=== PATIENT | male | born 1950 | race African-American/Black ===

== ENCOUNTER → 2018-05-21 | Day surgery (SDC) | payer OTHER ==
[~2018-05-21] MED LIST: LIDOCAINE 1% MPF 5 ML VIAL ONE; PROPOFOL 200 MG/20 ML VIAL IV ONE
--- OUTSIDE RECORDS SUMMARY | 2018-05-21 06:40 | XMS REPORT | Clinical Summary ---
:1950 Author Organization [facility] Address [address] [place] [address] Care Team Providers Name Role Phone Larisa Belle [facility] Primary Care Provider Allergies No Known Allergies Medications Medication Sig Dispensed Refills Start End Date Status Date nitroglycerin Place 0.4 mg under 0 Active (NITROSTAT) 0.4 MG the tongue every 5 SL tablet (five) minutes as needed for Chest pain Put 1 pill under tongue every 5min as needed for chest pain.No more than 3 doses in 15min.Call 911 if pain is unrelieved 5min after 1st dose . terazosin (HYTRIN) Take 2 mg by mouth 0 Active 2 MG capsule nightly. aspirin 81 MG Take 81 mg by 0 Active chewable tablet mouth daily. calcium acetate Take 1,334 mg by 0 Active (PHOSLO) 667 mg mouth 3 (three) capsule times daily with meals . rosuvastatin Take 10 mg by 0 Active (CRESTOR) 10 MG mouth daily. tablet insulin NPH 100 Inject 10 Units 0 Active unit/mL (3 mL) InPn subcutaneously every morning before breakfast. insulin regular Inject 0 Active (HUMULIN R,NOVOLIN subcutaneously 3 R) 100 unit/mL (three) times injection daily before meals Use as directed, sliding scale. . cholecalciferol, Take 5,000 Units 0 Active vitamin D3, by mouth daily. (VITAMIN D3) 5,000 unit Tab acetaminophen-codei Take 1 tablet by 20 tablet 0 Active ne (TYLENOL #3) mouth every 6 8 300-30 mg per (six) hours as tablet needed for Pain. Max Daily Amount: 4 tablets metoprolol Take 1 tablet (25 60 tablet 0 Active (TOPROL-XL) 25 MG mg total) by mouth 8 24 hr tablet 2 (two) times daily. lisinopril Take 1 tablet (2.5 30 tablet 0 201 10/31/19 Active (PRINIVIL,ZESTRIL) mg total) by mouth 8 19 2.5 MG tablet daily. hydrALAZINE Take 50 mg by 0 10/30/19 Discontinued (APRESOLINE) 50 MG mouth 2 (two) 18 tablet times daily . ergocalciferol Take 50,000 Units 0 10/01/19 Discontinued (VITAMIN D2) 50,000 by mouth once a 18 unit capsule week. metoprolol Take 100 mg by 0 10/30/19 Discontinued (TOPROL-XL) 100 MG mouth daily. 18 24 hr tablet amLODIPine Take 10 mg by 0 10/30/19 Discontinued (NORVASC) 10 MG mouth daily. 18 tablet Active Problems Problem Noted Date S/P CABG x 3 10/23/2017 Pre-transplant evaluation for ESRD (end stage renal disease) 09/30/2017 Stroke 06/16/2004 Overview: no residual Coronary artery disease ESRD (end stage renal disease) Dialysis patient Insulin dependent diabetes mellitus Overview: IDDM Hyperlipidemia HTN (hypertension) GERD (gastroesophageal reflux disease) Anemia Acute respiratory insufficiency Hypotension, unspecified hypotension type Postoperative anemia due to acute blood loss Thrombocytopenia Hyperglycemia Encounters Date Type Specialty Care Team Description 03/04/2018 Telephone Transplant Jeanie Schmidt Follow-up RHINA Vale 01/06/2018 Orders Only Lab Seth, Other iron deficiency Argelia Strauss anemia 01/06/2018 Orders Only Cardiology Sarah Bolden RN 01/06/2018 Orders Only Research Edna, Other iron deficiency RHINA Sosa anemia (Primary Dx) 11/18/2017 Orders Only Lab Seth, FH: CABG (coronary Argelia Strauss, artery bypass surgery) 11/17/2017 Orders Only Research Edna, FH: CABG (josie Sosa RN artery bypass surgery) (Primary Dx) 10/23/2017 Surgery Kevin Anguiano, BYPASS,AORTO CORONARY COURTNEY/MALCOLM 10/23/2017 Anesthesia Event Lisa Shaw MD 10/23/2017 Hospital Encounter Cardiology Kevin Anguiano, Pre-transplant evaluation for ESRD (end stage renal disease) (Primary Dx); - Acute respiratory insufficiency; 10/29/2017 Yanelis Jackson Anemia in chronic kidney disease, on chronic dialysis ([facility]); MD Chelsy Dialysis patient ([facility]); Secondary hypertension; Hypotension, unspecified hypotension type; Insulin dependent diabetes mellitus ([facility]); Postoperative anemia due to acute blood loss; S/P CABG x 3; Thrombocytopenia ([facility]); ESRD (end stage renal disease) ([facility]); Coronary artery disease involving ambler coronary artery of ambler heart without angina pectoris; Mixed hyperlipidemia 10/21/2017 Hospital Encounter Kevin Anguiano, Anemia in chronic MD kidney disease, on chronic dialysis ([facility]) 10/21/2017 Office Visit Cardiology Kevin Anguiano, coronary artery disease ; Stage 5 chronic kidney disease on chronic dialysis ([facility]); Coronary artery disease involving ambler coronary artery of ambler heart without angina pectoris; ESRD (end stage renal disease) ([facility]); Dialysis patient ([facility]); Insulin dependent diabetes mellitus ([facility]); Hypertension, unspecified type; Gastroesophageal reflux disease, esophagitis presence not specified; Cerebrovascular accident (CVA), unspecified mechanism ([facility]); Anemia in chronic kidney disease, on chronic dialysis ([facility]) 10/21/2017 Orders Only Cardiology Kevin Anguiano, coronary artery disease; Stage 5 chronic kidney disease on chronic dialysis ([facility]) 09/30/2017 Surgery Ramses Holland MD L CATH & CORONARY ANGIOS 09/30/2017 Hospital Encounter Ramses Holland MD Pre-transplant evaluation for ESRD (end stage renal disease) 08/07/2017 Hospital Encounter Heather, ESRD (end stage renal disease) ( [facility]); Letty Johnson MD Pre-transplant evaluation for chronic kidney disease 08/07/2017 Hospital Encounter Heather, ESRD (end stage renal disease) ( [facility]); Letty Johnson MD Pre-transplant evaluation for chronic kidney disease 08/07/2017 Hospital Encounter Radiology Heather, ESRD (end stage renal disease) ([facility]); Letty Johnson MD Pre-transplant evaluation for chronic kidney disease 08/07/2017 Orders Only Lab Heather, ESRD (end stage renal disease) ([facility]); Letty Johnson MD Pre-transplant evaluation for chronic kidney disease 08/07/2017 Orders Only Transplant Anmol Couch, ESRD (end stage renal Hepatology RN disease) ([facility]) (Primary Dx) 08/07/2017 Orders Only Transplant La Nena, Larisa, RN ESRD (end stage renal disease) ([facility]) (Primary Dx); Pre-transplant evaluation for chronic kidney disease 08/07/2017 Outside Orders Letty Romero MD 07/04/2017 Telephone Transplant Alcira Rivera Appointment 06/19/2017 Documentation Transplant Alcira Rivera Y 05/22/2017 Documentation Transplant Lucrecia Dyson, ESRD (end stage renal disease) ([facility]) (Primary Dx); RN Pre-transplant evaluation for chronic kidney disease after 05/20/2017 Family History Medical History Relation Name Comments Diabetes Father Diabetes Mother Relation Name Status Comments Father Mother Social History Tobacco Use Types Packs/Day Years Used Date Former Smoker Smokeless Tobacco: Never Used Comments: quit 2016 Alcohol Use Drinks/Week oz/Week Comments No Sex Assigned at Date Recorded Not on file Job Start Date Occupation Industry Not on file Not on file Not on file Travel History Travel Start Travel End No recent travel history available. Last Filed Vital Signs Vital Sign Reading Time Taken Blood Pressure 138/67 10/29/2017 11:40 AM CDT Pulse 77 10/29/2017 11:41 AM CDT Temperature 36.7 C (98.1 F) 10/29/2017 11:40 AM CDT Respiratory Rate 14 10/29/2017 11:41 AM CDT Oxygen Saturation 97% 10/29/2017 11:40 AM CDT Inhaled Oxygen Concentration 40% 10/23/2017 5:15 PM CDT Weight 72.9 kg (160 lb 12.8 oz) 10/29/2017 4:09 AM CDT Height 170.2 cm (5' 7") 10/23/2017 5:51 AM CDT Body Mass Index 25.18 10/29/2017 4:09 AM CDT Plan of Treatment Health Maintenance Due Date Last Done Comments INFLUENZA VACCINE 03/16/2018 Procedures Procedure Name Priority Date/Time Associated Comments Diagnosis RHYTHM STRIP - SCAN 04/10/2018 6:10 AM CDT TRANSFUSION SERVICE REPORT 01/07/2018 5:54 - SCAN PM CDT TYPE AND SCREEN, AUTOMATED Routine 01/06/2018 7:35 Other iron Results for this AM CDT deficiency anemia procedure are in the results section. DIRECT AHG (PERLA)/DIRECT Routine 01/06/2018 7:35 Other iron Results for this CARLA AM CDT deficiency anemia procedure are in the results section. PERMANENT LAB REPORT - 12/18/2017 11:40 SCAN AM CDT TRANSFUSION SERVICE REPORT 11/20/2017 7:52 - SCAN AM CDT CBC W/PLT COUNT & AUTO STAT 11/18/2017 12:23 FH: CABG (coronary Results for this DIFFERENTIAL PM CDT artery bypass procedure are in surgery) the results section. TYPE AND SCREEN, AUTOMATED Routine 11/18/2017 12:23 FH: CABG (coronary Results for this PM CDT artery bypass procedure are in surgery) the results section. DIRECT AHG (PERLA)/DIRECT Routine 11/18/2017 12:23 FH: CABG (coronary Results for this CARLA PM CDT artery bypass procedure are in surgery) the results section. FIBRINOGEN Routine 11/18/2017 12:23 FH: CABG (coronary Results for this PM CDT artery bypass procedure are in surgery) the results section. ALKALINE PHOSPHATASE Routine 11/18/2017 12:23 FH: CABG (coronary Results for this PM CDT artery bypass procedure are in surgery) the results section. CREATINE KINASE (CK) Routine 11/18/2017 12:23 FH: CABG (coronary Results for this PM CDT artery bypass procedure are in surgery) the results section. LACTATE DEHYDROGENASE Routine 11/18/2017 12:23 FH: CABG (coronary Results for this (LDH) PM CDT artery bypass procedure are in surgery) the results section. APTT Routine 11/18/2017 12:23 FH: CABG (coronary Results for this PM CDT artery bypass procedure are in surgery) the results section. PROTHROMBIN TIME/INR Routine 11/18/2017 12:23 FH: CABG (coronary Results for this PM CDT artery bypass procedure are in surgery) the results section. CBC W/PLT COUNT & AUTO STAT 11/18/2017 12:23 FH: CABG (coronary Results for this DIFFERENTIAL PM CDT artery bypass procedure are in surgery) the results section. COMPREHENSIVE METABOLIC Routine 11/18/2017 12:23 FH: CABG (coronary Results for this PANEL PM CDT artery bypass procedure are in surgery) the results section. VASCULAR DIAGRAM -SCAN 10/30/2017 3:30 PM CDT RHYTHM STRIP - SCAN 10/30/2017 3:30 PM CDT POCT-GLUCOSE METER Routine 10/29/2017 12:43 Results for this PM CDT procedure are in the results section. CBC W/PLT COUNT & AUTO Routine 10/29/2017 7:39 Results for this DIFFERENTIAL AM CDT procedure are in the results section. PHOSPHORUS Routine 10/29/2017 7:39 Results for this AM CDT procedure are in the results section. BASIC METABOLIC PANEL (7) Routine 10/29/2017 7:39 Results for this AM CDT procedure are in the results section. CBC W/PLT COUNT & AUTO Routine 10/29/2017 7:39 Results for this DIFFERENTIAL AM CDT procedure are in the results section. CBC W/PLT COUNT & AUTO Routine 10/29/2017 5:33 Results for this DIFFERENTIAL AM CDT procedure are in the results section. CBC W/PLT COUNT & AUTO Routine 10/29/2017 5:33 Results for this DIFFERENTIAL AM CDT procedure are in the results section. BASIC METABOLIC PANEL (7) Routine 10/29/2017 5:32 Results for this AM CDT procedure are in the results section. MAGNESIUM Routine 10/29/2017 5:32 Results for this AM CDT procedure are in the results section. POCT-GLUCOSE METER Routine 10/28/2017 9:01 Results for this PM CDT procedure are in the results section. TRANSFUSION SERVICE REPORT 10/28/2017 5:48 - SCAN PM CDT POCT-GLUCOSE METER Routine 10/28/2017 4:43 Results for this PM CDT procedure are in the results section. POCT-GLUCOSE METER Routine 10/28/2017 11:44 Results for this AM CDT procedure are in the results section. POCT-GLUCOSE METER Routine 10/28/2017 7:35 Results for this AM CDT procedure are in the results section. BASIC METABOLIC PANEL (7) Routine 10/28/2017 3:59 Results for this AM CDT procedure are in the results section. MAGNESIUM Routine 10/28/2017 3:59 Results for this AM CDT procedure are in the results section. HEMODIALYSIS INPATIENT Routine 10/28/2017 12:46 Results for this AM CDT procedure are in the results section. POCT-GLUCOSE METER Routine 10/27/2017 10:03 Results for this PM CDT procedure are in the results section. POTASSIUM Routine 10/27/2017 10:00 Results for this PM CDT procedure are in the results section. POCT-GLUCOSE METER Routine 10/27/2017 4:47 Results for this PM CDT procedure are in the results section. DIRECT AHG (PERLA)/DIRECT Routine 10/27/2017 1:36 Results for this CARLA PM CDT procedure are in the results section. PROTEIN, TOTAL Routine 10/27/2017 1:36 Results for this PM CDT procedure are in the results section. CREATINE KINASE (CK) Routine 10/27/2017 1:36 Results for this PM CDT procedure are in the results section. LACTATE DEHYDROGENASE Routine 10/27/2017 1:36 Results for this (LDH) PM CDT procedure are in the results section. BILIRUBIN, TOTAL AND Routine 10/27/2017 1:36 Results for this DIRECT PM CDT procedure are in the results section. AST (SGOT) Routine 10/27/2017 1:36 Results for this PM CDT procedure are in the results section. APTT Routine 10/27/2017 1:36 Results for this PM CDT procedure are in the results section. ALT (SGPT) Routine 10/27/2017 1:36 Results for this PM CDT procedure are in the results section. ALKALINE PHOSPHATASE Routine 10/27/2017 1:36 Results for this PM CDT procedure are in the results section. ALBUMIN Routine 10/27/2017 1:36 Results for this PM CDT procedure are in the results section. PROTHROMBIN TIME/INR Routine 10/27/2017 1:36 Results for this PM CDT procedure are in the results section. POCT-GLUCOSE METER Routine 10/27/2017 12:08 Results for this PM CDT procedure are in the results section. TYPE AND SCREEN, AUTOMATED Routine 10/27/2017 9:33 Results for this AM CDT procedure are in the results section. POCT-GLUCOSE METER Routine 10/27/2017 7:50 Results for this AM CDT procedure are in the results section. CBC W/PLT COUNT & AUTO Routine 10/27/2017 6:30 Results for this DIFFERENTIAL AM CDT procedure are in the results section. CBC W/PLT COUNT & AUTO Routine 10/27/2017 6:30 Results for this DIFFERENTIAL AM CDT procedure are in the results section. BASIC METABOLIC PANEL (7) Routine 10/27/2017 6:30 Results for this AM CDT procedure are in the results section. MAGNESIUM Routine 10/27/2017 6:30 Results for this AM CDT procedure are in the results section. POCT-GLUCOSE METER Routine 10/26/2017 9:51 Results for this PM CDT procedure are in the results section. POCT-GLUCOSE METER Routine 10/26/2017 5:38 Results for this PM CDT procedure are in the results section. XR CHEST 1 VIEW Routine 10/26/2017 4:08 Results for this PORTABLE/BEDSIDE PM CDT procedure are in the results section. POCT-GLUCOSE METER Routine 10/26/2017 12:32 Results for this PM CDT procedure are in the results section. POCT-GLUCOSE METER Routine 10/26/2017 7:53 Results for this AM CDT procedure are in the results section. CBC W/PLT COUNT & AUTO Routine 10/26/2017 5:01 Results for this DIFFERENTIAL AM CDT procedure are in the results section. CBC W/PLT COUNT & AUTO Routine 10/26/2017 5:01 Results for this DIFFERENTIAL AM CDT procedure are in the results section. BASIC METABOLIC PANEL (7) Routine 10/26/2017 5:01 Results for this AM CDT procedure are in the results section. POCT-GLUCOSE METER Routine 10/25/2017 8:36 Results for this PM CDT procedure are in the results section. TRANSFUSION SERVICE REPORT 10/25/2017 5:41 - SCAN PM CDT POCT-GLUCOSE METER Routine 10/25/2017 4:50 Results for this PM CDT procedure are in the results section. POCT-GLUCOSE METER Routine 10/25/2017 12:34 Results for this PM CDT procedure are in the results section. CBC W/PLT COUNT & AUTO Routine 10/25/2017 11:06 Results for this DIFFERENTIAL AM CDT procedure are in the results section. CBC W/PLT COUNT & AUTO Routine 10/25/2017 11:06 Results for this DIFFERENTIAL AM CDT procedure are in the results section. BASIC METABOLIC PANEL (7) Routine 10/25/2017 11:06 Results for this AM CDT procedure are in the results section. XR CHEST 1 VIEW STAT 10/25/2017 8:16 Results for this PORTABLE/BEDSIDE AM CDT procedure are in the results section. POCT-GLUCOSE METER Routine 10/25/2017 8:13 Results for this AM CDT procedure are in the results section. PREPARE RBC STAT 10/24/2017 11:54 Results for this PM CDT procedure are in the results section. POCT-GLUCOSE METER Routine 10/24/2017 8:52 Results for this PM CDT procedure are in the results section. HEMODIALYSIS INPATIENT Routine 10/24/2017 6:41 Results for this PM CDT procedure are in the results section. TRANSFUSION SERVICE REPORT 10/24/2017 5:44 - SCAN PM CDT HEPATITIS B SURFACE Routine 10/24/2017 2:39 Results for this ANTIGEN PM CDT procedure are in the results section. XR CHEST 1 VIEW Routine 10/24/2017 1:04 Results for this PORTABLE/BEDSIDE PM CDT procedure are in the results section. POCT-GLUCOSE METER Routine 10/24/2017 9:37 Results for this AM CDT procedure are in the results section. HEMOGLOBIN AND HEMATOCRIT Routine 10/24/2017 9:33 Results for this AM CDT procedure are in the results section. POCT-GLUCOSE METER Routine 10/24/2017 4:44 Results for this AM CDT procedure are in the results section. POCT-GLUCOSE METER Routine 10/24/2017 3:35 Results for this AM CDT procedure are in the results section. CBC W/PLT COUNT & AUTO Routine 10/24/2017 3:26 Results for this DIFFERENTIAL AM CDT procedure are in the results section. LACTIC ACID, ARTERIAL, Routine 10/24/2017 3:26 Results for this WHOLE BLOOD AM CDT procedure are in the results section. OXYGEN SATURATION, Routine 10/24/2017 3:26 Results for this MEASURED AM CDT procedure are in the results section. CALCIUM, IONIZED Routine 10/24/2017 3:26 Results for this AM CDT procedure are in the results section. CBC W/PLT COUNT & AUTO Routine 10/24/2017 3:26 Results for this DIFFERENTIAL AM CDT procedure are in the results section. MAGNESIUM Routine 10/24/2017 3:26 Results for this AM CDT procedure are in the results section. BASIC METABOLIC PANEL (7) Routine 10/24/2017 3:26 Results for this AM CDT procedure are in the results section. PHOSPHORUS Routine 10/24/2017 3:26 Results for this AM CDT procedure are in the results section. XR CHEST 1 VIEW Routine 10/24/2017 3:14 Results for this PORTABLE/BEDSIDE AM CDT procedure are in the results section. POCT-GLUCOSE METER Routine 10/23/2017 10:46 Results for this PM CDT procedure are in the results section. POCT-GLUCOSE METER Routine 10/23/2017 10:08 Results for this PM CDT procedure are in the results section. POCT-GLUCOSE METER Routine 10/23/2017 9:02 Results for this PM CDT procedure are in the results section. POCT-GLUCOSE METER Routine 10/23/2017 7:32 Results for this PM CDT procedure are in the results section. POCT-GLUCOSE METER Routine 10/23/2017 6:03 Results for this PM CDT procedure are in the results section. BLOOD GAS, ARTERIAL STAT 10/23/2017 4:57 Results for this PM CDT procedure are in the results section. POCT-GLUCOSE METER Routine 10/23/2017 3:57 Results for this PM CDT procedure are in the results section. POCT-GLUCOSE METER Routine 10/23/2017 3:05 Results for this PM CDT procedure are in the results section. GLUCOSE-STAT LAB STAT 10/23/2017 2:04 Results for this PM CDT procedure are in the results section. BLOOD GAS, ARTERIAL STAT 10/23/2017 2:04 Results for this PM CDT procedure are in the results section. ECG 12-LEAD STAT 10/23/2017 1:09 Results for this PM CDT procedure are in the results section. XR CHEST 1 VIEW STAT 10/23/2017 12:23 Results for this PORTABLE/BEDSIDE PM CDT procedure are in the results section. PREPARE PLASMA STAT 10/23/2017 12:21 Results for this PM CDT procedure are in the results section. CBC W/PLT COUNT & AUTO STAT 10/23/2017 12:11 Results for this DIFFERENTIAL PM CDT procedure are in the results section. CALCIUM, IONIZED STAT 10/23/2017 12:11 Results for this PM CDT procedure are in the results section. HGB/HCT (H&H) - STAT LAB STAT 10/23/2017 12:11 Results for this PM CDT procedure are in the results section. GLUCOSE-STAT LAB STAT 10/23/2017 12:11 Results for this PM CDT procedure are in the results section. POTASSIUM-STAT LAB STAT 10/23/2017 12:11 Results for this PM CDT procedure are in the results section. FIBRINOGEN STAT 10/23/2017 12:11 Results for this PM CDT procedure are in the results section. APTT STAT 10/23/2017 12:11 Results for this PM CDT procedure are in the results section. PROTHROMBIN TIME/INR STAT 10/23/2017 12:11 Results for this PM CDT procedure are in the results section. BASIC METABOLIC PANEL (7) STAT 10/23/2017 12:11 Results for this PM CDT procedure are in the results section. CBC W/PLT COUNT & AUTO STAT 10/23/2017 12:11 Results for this DIFFERENTIAL PM CDT procedure are in the results section. PHOSPHORUS STAT 10/23/2017 12:11 Results for this PM CDT procedure are in the results section. LACTIC ACID, ARTERIAL, STAT 10/23/2017 12:11 Results for this WHOLE BLOOD PM CDT procedure are in the results section. OXYGEN SATURATION, STAT 10/23/2017 12:11 Results for this MEASURED PM CDT procedure are in the results section. GLUCOSE STAT 10/23/2017 12:11 Results for this PM CDT procedure are in the results section. MAGNESIUM STAT 10/23/2017 12:11 Results for this PM CDT procedure are in the results section. POTASSIUM STAT 10/23/2017 12:11 Results for this PM CDT procedure are in the results section. SODIUM STAT 10/23/2017 12:11 Results for this PM CDT procedure are in the results section. BLOOD GAS, ARTERIAL STAT 10/23/2017 12:11 Results for this PM CDT procedure are in the results section. HEMOGLOBIN A1C Routine 10/23/2017 12:10 coronary artery Results for this PM CDT disease procedure are in Stage 5 chronic the results kidney disease on section. chronic dialysis (HCC) POCT-ACT Routine 10/23/2017 10:16 Results for this AM CDT procedure are in the results section. HGB/HCT (H&H) - STAT LAB STAT 10/23/2017 10:10 Results for this AM CDT procedure are in the results section. GLUCOSE-STAT LAB STAT 10/23/2017 10:10 Results for this AM CDT procedure are in the results section. POTASSIUM-STAT LAB STAT 10/23/2017 10:10 Results for this AM CDT procedure are in the results section. SODIUM NA-STAT LAB STAT 10/23/2017 10:10 Results for this AM CDT procedure are in the results section. BLOOD GAS, ARTERIAL STAT 10/23/2017 10:10 Results for this AM CDT procedure are in the results section. THROMBOELASTOGRAPH (TEG) STAT 10/23/2017 10:10 Results for this AM CDT procedure are in the results section. FIBRINOGEN STAT 10/23/2017 10:10 Results for this AM CDT procedure are in the results section. APTT STAT 10/23/2017 10:10 Results for this AM CDT procedure are in the results section. PROTHROMBIN TIME/INR STAT 10/23/2017 10:10 Results for this AM CDT procedure are in the results section. CALCIUM, IONIZED STAT 10/23/2017 10:10 Results for this AM CDT procedure are in the results section. RRL CRITICAL LABS STAT 10/23/2017 10:10 Results for this (ABG,NA,K,H&H,GLUCOSE) AM CDT procedure are in the results section. PLATELET COUNT STAT 10/23/2017 10:10 Results for this AM CDT procedure are in the results section. TRANSFUSE LEUKO-REDUCED Routine 10/23/2017 9:56 RED BLOOD CELLS AM CDT POCT-ACT Routine 10/23/2017 9:49 Results for this AM CDT procedure are in the results section. CALCIUM, IONIZED STAT 10/23/2017 9:46 Results for this AM CDT procedure are in the results section. HGB/HCT (H&H) - STAT LAB STAT 10/23/2017 9:46 Results for this AM CDT procedure are in the results section. GLUCOSE-STAT LAB STAT 10/23/2017 9:46 Results for this AM CDT procedure are in the results section. POTASSIUM-STAT LAB STAT 10/23/2017 9:46 Results for this AM CDT procedure are in the results section. SODIUM NA-STAT LAB STAT 10/23/2017 9:46 Results for this AM CDT procedure are in the results section. BLOOD GAS, ARTERIAL STAT 10/23/2017 9:46 Results for this AM CDT procedure are in the results section. RRL CRITICAL LABS STAT 10/23/2017 9:46 Results for this (ABG,NA,K,H&H,GLUCOSE) AM CDT procedure are in the results section. TRANSFUSE LEUKO-REDUCED Routine 10/23/2017 9:43 RED BLOOD CELLS AM CDT POCT-ACT Routine 10/23/2017 9:31 Results for this AM CDT procedure are in the results section. HGB/HCT (H&H) - STAT LAB STAT 10/23/2017 9:29 Results for this AM CDT procedure are in the results section. GLUCOSE-STAT LAB STAT 10/23/2017 9:29 Results for this AM CDT procedure are in the results section. POTASSIUM-STAT LAB STAT 10/23/2017 9:29 Results for this AM CDT procedure are in the results section. SODIUM NA-STAT LAB STAT 10/23/2017 9:29 Results for this AM CDT procedure are in the results section. BLOOD GAS, ARTERIAL STAT 10/23/2017 9:29 Results for this AM CDT procedure are in the results section. RRL CRITICAL LABS STAT 10/23/2017 9:29 Results for this (ABG,NA,K,H&H,GLUCOSE) AM CDT procedure are in the results section. POCT-ACT Routine 10/23/2017 9:12 Results for this AM CDT procedure are in the results section. POCT-ACT Routine 10/23/2017 7:53 Results for this AM CDT procedure are in the results section. HGB/HCT (H&H) - STAT LAB STAT 10/23/2017 7:52 Results for this AM CDT procedure are in the results section. GLUCOSE-STAT LAB STAT 10/23/2017 7:52 Results for this AM CDT procedure are in the results section. POTASSIUM-STAT LAB STAT 10/23/2017 7:52 Results for this AM CDT procedure are in the results section. SODIUM NA-STAT LAB STAT 10/23/2017 7:52 Results for this AM CDT procedure are in the results section. BLOOD GAS, ARTERIAL STAT 10/23/2017 7:52 Results for this AM CDT procedure are in the results section. RRL CRITICAL LABS STAT 10/23/2017 7:52 Results for this (ABG,NA,K,H&H,GLUCOSE) AM CDT procedure are in the results section. 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 HGB/HCT (H&H) - STAT LAB Routine 10/23/2017 6:26 Results for this AM CDT procedure are in the results section. GLUCOSE-STAT LAB Routine 10/23/2017 6:26 Results for this AM CDT procedure are in the results section. TRANSFUSION SERVICE REPORT 10/22/2017 5:42 - SCAN PM CDT XR CHEST 2 VIEWS Routine 10/21/2017 11:17 coronary artery Results for this AM CDT disease procedure are in Stage 5 chronic the results kidney disease on section. chronic dialysis (HCC) ECG 12-LEAD Routine 10/21/2017 10:49 Results for this AM CDT procedure are in the results section. TYPE AND SCREEN, AUTOMATED Routine 10/21/2017 10:37 Results for this AM CDT procedure are in the results section. CBC W/PLT COUNT & AUTO Routine 10/21/2017 10:34 Results for this DIFFERENTIAL AM CDT procedure are in the results section. DIRECT AHG (PERLA)/DIRECT Routine 10/21/2017 10:34 Results for this CARLA AM CDT procedure are in the results section. CBC W/PLT COUNT & AUTO Routine 10/21/2017 10:34 Results for this DIFFERENTIAL AM CDT procedure are in the results section. CREATINE KINASE (CK) Routine 10/21/2017 10:34 Results for this AM CDT procedure are in the results section. FIBRINOGEN Routine 10/21/2017 10:34 Results for this AM CDT procedure are in the results section. PT/APTT Routine 10/21/2017 10:34 Results for this AM CDT procedure are in the results section. COMPREHENSIVE METABOLIC Routine 10/21/2017 10:34 Results for this PANEL AM CDT procedure are in the results section. CARDIAC CATH REPORT - SCAN 10/16/2017 7:12 PM CDT VASCULAR DIAGRAM -SCAN 10/10/2017 3:50 PM CDT VASCULAR DIAGRAM -SCAN 10/10/2017 3:50 PM CDT CARDIAC CATH REPORT - SCAN 10/01/2017 8:01 PM CDT VASCULAR DIAGRAM -SCAN 10/01/2017 1:50 PM CDT ABD AO & LOWER EXT ANGIOS/ 09/30/2017 3:29 Coronary artery POSS PPI PM CDT disease involving ambler heart without angina pectoris, unspecified vessel or lesion type Case Notes POP6 POSS PCI L CATH & CORONARY ANGIOS 09/30/2017 3:29 PM CDT Coronary artery disease involving ambler heart without angina pectoris, unspecified vessel or lesion type Case Notes POP6 POSS PCI PT/APTT Routine 09/30/2017 11:59 AM Results for this CDT procedure are in the results section. CBC W/PLT COUNT & Routine 09/30/2017 11:45 AM Results for this AUTO DIFFERENTIAL CDT procedure are in the results section. BASIC METABOLIC PANEL Routine 09/30/2017 11:45 AM Results for this (7) CDT procedure are in the results section. CBC W/PLT COUNT & Routine 09/30/2017 11:45 AM Results for this AUTO DIFFERENTIAL CDT procedure are in the results section. ECG 12-LEAD Routine 09/30/2017 11:03 AM Results for this CDT procedure are in the results section. TRANSFUSION SERVICE 08/08/2017 5:44 PM REPORT - SCAN AGRICULTURE EXTENSION SPECIALIST AB SPECIFICITY CLASS Routine 08/07/2017 11:28 AM ESRD (end stage Results for this I AGRICULTURE EXTENSION SPECIALIST renal disease) ([facility]LY [facility]) procedure are in the results section. FLOW PRA CLASS II Routine 08/07/2017 11:28 AM ESRD (end stage Results for this WITH REFLEX TO AGRICULTURE EXTENSION SPECIALIST renal disease) ([facility]LY [facility]) procedure are in ANTIBODY SPECIFICITY the results section. FLOW PRA CLASS I WITH Routine 08/07/2017 11:28 AM ESRD (end stage Results for this REFLEX TO ANTIBODY AGRICULTURE EXTENSION SPECIALIST renal disease) ([facility]) procedure are in SPECIFICITY the results section. HLA TYPING CII Routine 08/07/2017 11:28 AM ESRD (end stage Results for this AGRICULTURE EXTENSION SPECIALIST renal disease) ([facility]) procedure are in the results section. HLA TYPING CI Routine 08/07/2017 11:28 AM ESRD (end stage Results for this AGRICULTURE EXTENSION SPECIALIST renal disease) ([facility]) procedure are in the results section. HIV-1 ANTIGEN WITH Routine 08/07/2017 10:22 AM ESRD (end stage Results for this HIV-1/2 ANTIBODY AGRICULTURE EXTENSION SPECIALIST renal disease) ([facility]) procedure are in Pre-transplant the results evaluation for section. 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 chronic kidney disease XR CHEST 2 VIEWS Routine 08/07/2017 9:10 AM ESRD (end stage Results for this AGRICULTURE EXTENSION SPECIALIST renal disease) ([facility]) procedure are in Pre-transplant the results evaluation for section. chronic kidney disease US ABDOMEN COMPLETE Routine 08/07/2017 8:52 AM ESRD (end stage Results for this AGRICULTURE EXTENSION SPECIALIST renal disease) ([facility]) procedure are in Pre-transplant the results evaluation for section. chronic kidney disease BLOOD TYPING, Routine 08/07/2017 7:18 AM ESRD (end stage Results for this AUTOMATED AGRICULTURE EXTENSION SPECIALIST renal disease) ([facility]) procedure are in Pre-transplant the results evaluation for section. chronic kidney disease PSA Routine 08/07/2017 7:18 AM ESRD (end stage Results for this AGRICULTURE EXTENSION SPECIALIST renal disease) ([facility]) procedure are in Pre-transplant the results evaluation for section. chronic kidney disease HEMOGLOBIN A1C Routine 08/07/2017 7:18 AM ESRD (end stage Results for this AGRICULTURE EXTENSION SPECIALIST renal disease) ([facility]) procedure are in Pre-transplant the results evaluation for section. chronic kidney disease LIPID PANEL Routine 08/07/2017 7:18 AM ESRD (end stage Results for this AGRICULTURE EXTENSION SPECIALIST renal disease) ([facility]) procedure are in Pre-transplant the results evaluation for section. chronic kidney disease after 05/20/2017 Results RHYTHM STRIP - SCAN (04/10/2018 6:10 AM CDT)Only the most recent of2 resultswithin the time period is included. Narrative Performed At TRANSFUSION SERVICE REPORT - SCAN (01/07/2018 5:54 PM CDT)Only the most recent of7 resultswithin the time period is included. Narrative Performed At Type and screen, automated (01/06/2018 7:35 AM CDT)Only the most recent of4 resultswithin the time period is included. ABO/RH AUTOMATED (BEAKER) O POSITIVE [facility] Ab Scrn NEGATIVE [facility] Specimen Blood Performing Organization Address City/[facility]/Zipcode Phone Number [address] [address] Direct AHG (PERLA)/Direct Carla (01/06/2018 7:35 AM CDT)Only the most recent of4 resultswithin the time period is included. Direct AHG-IGG NEGATIVE [facility] Direct AHG-C3B, C3D NEGATVIE [facility] Specimen Blood Performing Organization Address City/[facility]/Zipcode Phone Number [facility] [address] [place] [phone] PERMANENT LAB REPORT - SCAN (12/18/2017 11:40 AM CDT) Narrative Performed At CBC with platelet count + automated diff (11/18/2017 12:23 PM CDT)Only the most recent of10 resultswithin the time period is included. WBC 5.5 3.5 - 10.5 K/L [facility] RBC 3.95 (L) 4.63 - 6.08 M/L [facility] Hemoglobin 10.7 (L) 13.7 - 17.5 GM/DL [facility] Hematocrit 36.7 (L) 40.1 - 51.0 % [facility] MCV 92.9 (H) 79.0 - 92.2 fL [facility] MCH 27.1 25.7 - 32.2 pg [facility] MCHC 29.2 (L) 32.3 - 36.5 GM/DL [facility] RDW 15.4 (H) 11.6 - 14.4 % [facility] Platelets 243 150 - 450 K/CU MM [facility] MPV 11.7 9.4 - 12.4 fL [facility] nRBC 0 0 - 0 /100 WBC [facility] % Neutros 49 % [facility] % Lymphs 34 % [facility] % Monos 9 % [facility] % Eos 7 % [facility] % Baso 1 % [facility] # Neutros 2.67 1.78 - 5.38 K/L [facility] # Lymphs 1.84 1.32 - 3.57 K/L [facility] # Monos 0.51 0.30 - 0.82 K/L [facility] # Eos 0.36 0.04 - 0.54 K/L [facility] # Baso 0.06 0.01 - 0.08 K/L [facility] Immature Granulocytes-Relative 0 0 - 1 % [facility] Specimen Blood Performing Organization Address City/[facility]/Zipcode Phone Number [address] [address] [phone] CENTER aPTT (11/18/2017 12:23 PM CDT)Only the most recent of4 resultswithin the time period is included. PTT 35.3 22.5 - 36.0 seconds [facility] Specimen Blood Performing Organization Address [facility] Phone Number [address] [address] [phone] CENTER Prothrombin time/INR (11/18/2017 12:23 PM CDT)Only the most recent of4 resultswithin the time period is included. Protime 13.7 11.7 - 14.7 seconds [facility] INR 1.1 <=5.9 [facility] Specimen Blood Narrative Performed At [facility] RECOMMENDED COUMADIN/WARFARIN INR THERAPY RANGES STANDARD DOSE: 2.0 - 3.0 Includes: PROPHYLAXIS for venous thrombosis, systemic embolization; TREATMENT for venous thrombosis and/or pulmonary embolus. HIGH RISK: Target INR is 2.5-3.5 for patients with mechanical heart valves. Performing Organization Address City/[facility] Phone Number [address] [address] [phone] CENTER Fibrinogen (11/18/2017 12:23 PM CDT)Only the most recent of4 resultswithin the time period is included. Fibrinogen 467 (H) 225 - 434 mg/dl [facility] Specimen Blood Performing Organization Address City/[facility] Phone Number [address] [phone] CENTER Alkaline phosphatase (11/18/2017 12:23 PM CDT)Only the most recent of2 resultswithin the time period is included. Alkaline Phosphatase 102 40 - 150 U/L [facility] Specimen Blood Performing Organization Address City/[facility] Phone Number [address] [address] [phone] CENTER Lactate dehydrogenase (LDH) (11/18/2017 12:23 PM CDT)Only the most recent of2 resultswithin the time period is included. LDH 235 (H) 125 - 220 U/L [facility] Specimen Blood Performing Organization Address City/[facility] Phone Number [address] [phone] CENTER Creatine Kinase (CK) (11/18/2017 12:23 PM CDT)Only the most recent of3 resultswithin the time period is included. Total CK 56 29 - 200 U/L [facility] Specimen Blood Performing Organization Address City/[facility] Phone Number [address] [address] [place] Comprehensive metabolic panel (11/18/2017 12:23 PM CDT)Only the most recent of2 resultswithin the time period is included. Protein, Total 7.4 6.0 - 8.3 gm/dL [facility] Albumin 4.3 3.5 - 5.0 g/dL [facility] Alkaline Phosphatase 102 40 - 150 U/L [facility] Total Bilirubin 0.3 0.2 - 1.2 mg/dL [facility] Sodium 139 136 - 145 meq/L [facility] Potassium 4.0 3.5 - 5.1 meq/L [facility] Chloride 104 98 - 107 meq/L [facility] CO2 25 22 - 29 meq/L [facility] BUN 23 (H) 7 - 21 mg/dL [facility] Creatinine 4.88 (H) 0.57 - 1.25 mg/dL [facility] Glucose 136 (H) 70 - 105 mg/dL [facility] Calcium 9.6 8.4 - 10.2 mg/dL [facility] AST 15 5 - 34 U/L [facility] ALT 15 6 - 55 U/L [facility] EGFR 15Comment: ESTIMATED GFR mL/min/1.73 sq m [facility] IS NOT ACCURATE [facility] CREATININE CLEARANCE IN PREDICTING GLOMERULAR FILTRATION RATE. ESTIMATED GFR IS NOT APPLICABLE FOR DIALYSIS PATIENTS. Specimen Blood Performing Organization Address [facility] [place] [address] [place] VASCULAR DIAGRAM -SCAN (10/30/2017 3:30 PM CDT)Only the most recent of4 resultswithin the time period is included. Narrative Performed At POC-Glucose meter (10/29/2017 12:43 PM CDT)Only the most recent of28 resultswithin the time period is included. POC-Glucose Meter 203 (H)Comment: TESTED AT 70 - 110 mg/dL [facility] [address] [place] [address] Specimen Blood Performing Organization Address City/[facility] Phone Number [address] [address] CENTER Phosphorus (10/29/2017 7:39 AM CDT)Only the most recent of3 resultswithin the time period is included. Phosphorus 2.1 (L) 2.3 - 4.7 mg/dL [facility] Specimen Blood - Central Venous Line Performing Organization Address [facility] Phone Number [address] [address] [phone] [place] Basic metabolic panel (10/29/2017 7:39 AM CDT)Only the most recent of9 resultswithin the time period is included. Sodium 139 136 - 145 meq/L [facility] Potassium 3.7 3.5 - 5.1 meq/L [facility] Chloride 105 98 - 107 meq/L [facility] CO2 26 22 - 29 meq/L [facility] BUN 31 (H) 7 - 21 mg/dL [facility] Creatinine 3.68 (H) 0.57 - 1.25 mg/dL [facility] Glucose 91 70 - 105 mg/dL [facility] Calcium 8.5 8.4 - 10.2 mg/dL [facility] EGFR 20Comment: ESTIMATED GFR IS mL/min/1.73 sq m [facility] NOT ACCURATE CREATININE [facility] CLEARANCE IN PREDICTING GLOMERULAR FILTRATION RATE. ESTIMATED GFR IS NOT APPLICABLE FOR DIALYSIS PATIENTS. Specimen Blood - Central Venous Line Performing Organization Address City/State/[facility] Phone Number [address] [phone] [place] Magnesium (10/29/2017 5:32 AM CDT)Only the most recent of5 resultswithin the time period is included. Magnesium 2.4 1.6 - 2.6 mg/dL [facility] Specimen Blood Performing Organization Address City/[facility]/Zipcode Phone Number [address] [phone] [place] HEMODIALYSIS INPATIENT (10/28/2017 12:46 AM CDT) Narrative Performed At Shannan Bernabe RN 10/28/2017 12:46 AM 10/27/2017 2015: Received patient alert and awake, follows commands. HD plan discussed with patient and his . 10/27/20172030: Arterial port has resistance and venous port slightly sluggish. Blood flow decreased to 275 ml/min, venous pressure at 300-320. Dr. Baca was informed. 10/27/2017 1695: HD terminated 30 minutes early, system clotting. Blood returned before system completely clots. UF 1.6 L x 3.5 hours. Vital signs stable throughout treatment. No distress and no complaints from patient. HD catheter ports packed with TPA for declotting. RHINA Lopez to check on HD catheter later for patency. Report given to RHINA Turcios Lab Results Component Value Date WBC 6.1 10/27/2017 HGB 8.4 (L) 10/27/2017 HCT 27.4 (L) 10/27/2017 MCV 90.1 10/27/2017 PLT 141 (L) 10/27/2017 Lab Results Component Value Date GLUCOSE 177 (H) 10/27/2017 CALCIUM 9.0 10/27/2017 NA 138 10/27/2017 K 3.9 10/27/2017 CO2 25 10/27/2017 CL 102 10/27/2017 BUN 60 (H) 10/27/2017 CREATININE 6.81 (H) 10/27/2017 Lab Results Component Value Date HEPBSAG Nonreactive 10/24/2017 Potassium (10/27/2017 10:00 PM CDT)Only the most recent of2 resultswithin the time period is included. Potassium 3.6 3.5 - 5.1 meq/L [facility] Specimen Blood - Central Venous Line Performing Organization Address [facility] Phone Number [address] [address] [phone] CENTER Bilirubin, total and direct (10/27/2017 1:36 PM CDT) Total Bilirubin 0.2 0.2 - 1.2 mg/dL [facility] Bilirubin, Direct 0.1 0.1 - 0.5 mg/dL [facility] Specimen Blood Performing Organization Address [facility] Phone Number [address] [phone] CENTER ALT (SGPT) (10/27/2017 1:36 PM CDT) ALT 90 (H) 6 - 55 U/L [facility] Specimen Blood Performing Organization Address [facility] Phone Number [address] [address] [phone] CENTER AST (SGOT) (10/27/2017 1:36 PM CDT) AST 68 (H) 5 - 34 U/L [facility] Specimen Blood Performing Organization Address [facility] Phone Number [address] [phone] [place] Protein, total (10/27/2017 1:36 PM CDT) Protein, Total 6.3 6.0 - 8.3 gm/dL [facility] Specimen Blood Performing Organization Address [facility] Phone Number [address] [address] [phone] CENTER Albumin (10/27/2017 1:36 PM CDT) Albumin 3.4 (L) 3.5 - 5.0 g/dL [facility] Specimen Blood Performing Organization Address [facility] Phone Number [address] [address] [phone] [place] XR chest 1 view portable / bedside (10/26/2017 4:08 PM CDT)Only the most recent of5 resultswithin the time period is included. Narrative Performed At FINAL REPORT [facility] CLINICAL INDICATION: Postop Comparison: 10/25/2017 The cardiomediastinal contours are stable. Central pulmonary vascular prominence and bilateral parenchymal opacities are similar within variation of acquisition technique. Blunting of the costophrenic sulci may reflect trace effusions or pleural thickening. There is no pneumothorax. A tunneled right IJ dialysis catheter remains in place. Signed: Eliu Coker MD Report Verified Date/Time:10/26/2017 17:08:24 Reading Location: [address] Reading Room Procedure Note Interface, External Ris In - 10/26/2017 5:10 PM CDT FINAL REPORT CLINICAL INDICATION: Postop Comparison: 10/25/2017 The cardiomediastinal contours are stable. Central pulmonary vascular prominence and bilateral parenchymal opacities are similar within variation of acquisition technique. Blunting of the costophrenic sulci may reflect trace effusions or pleural thickening. There is no pneumothorax. A tunneled right IJ dialysis catheter remains in place. Signed: Eliu Coker MD Report Verified Date/Time: 10/26/2017 17:08:24 Reading Location: [address] Reading Room Performing Organization Address [facility] Phone Number GE RIS Prepare RBC (10/24/2017 11:54 PM CDT) CROSSMATCH COMPATIBLE SAFETRACE TX Unit ABO O Neg SAFETRACE TX UNIT NUMBER [id number] SAFETRACE TX Status TRANSFUSED SAFETRACE TX Blood Bank Product RED BLOOD CELLS SAFETRACE TX PRODUCT CODE [id number] SAFETRACE TX CROSSMATCH COMPATIBLE SAFETRACE TX Unit ABO O Pos SAFETRACE TX UNIT NUMBER [id number] SAFETRACE TX Status TRANSFUSED SAFETRACE TX Blood Bank Product RED BLOOD CELLS SAFETRACE TX PRODUCT CODE [id number] SAFETRACE TX Performing Organization Address [facility] Phone Number SAFETRACE TX HEMODIALYSIS INPATIENT (10/24/2017 6:41 PM CDT) Narrative Performed At Colt Mcintyre RN 10/24/20176:41 PM Lab Results Component Value Date WBC 9.5 10/24/2017 HGB 9.9 (L) 10/24/2017 HCT 31.7 (L) 10/24/2017 MCV 87.9 10/24/2017 PLT 118 (L) 10/24/2017 Lab Results Component Value Date GLUCOSE 164 (H) 10/24/2017 CALCIUM 9.2 10/24/2017 NA 139 10/24/2017 K 5.6 (H) 10/24/2017 CO2 19 (L) 10/24/2017 CL 109 (H) 10/24/2017 BUN 54 (H) 10/24/2017 CREATININE 5.66 (H) 10/24/2017 Lab Results Component Value Date HEPBSAG Nonreactive 10/24/2017 Vitals: 10/24/17 1830 BP: Pulse: 79 Resp: 19 Temp: 97.6 F (36.4 C) SpO2: 99% HD x 4hrs. UF net 2L. Pt awake and alert, not in distress. Treatment tolerated well. Hepatitis B surface antigen (10/24/2017 2:39 PM CDT) hepatitis B Surface Ag NON-REACTIVE Nonreactive [facility] Specimen Blood - Central Venous Line Narrative Performed At For chronic HD patients, draw HBsAg with each [facility] [facility] admission then every 30 days. Performing Organization Address City/State/Zipcode Phone Number [address] [address] [phone] CENTER Hemoglobin and hematocrit (10/24/2017 9:33 AM CDT) Hemoglobin 9.9 (L) 13.7 - 17.5 GM/DL [facility] Hematocrit 31.7 (L) 40.1 - 51.0 % [facility] Specimen Blood Performing Organization Address City/[facility] Phone Number [address] [address] [phone] CENTER Oxygen saturation, measured (10/24/2017 3:26 AM CDT)Only the most recent of2 resultswithin the time period is included. O2 Saturation (Measured) 72.5 % [facility] Specimen Blood Performing Organization Address City/[facility]/Zipcode Phone Number [address] [address] [phone] CENTER Calcium, Ionized (10/24/2017 3:26 AM CDT)Only the most recent of4 resultswithin the time period is included. Calcium, Ion 1.17 1.12 - 1.27 mmol/L [facility] pH, Blood 7.29 [facility] Specimen Blood Performing Organization Address City/[facility]/Zipcode Phone Number [address] [address] [phone] [place] Lactic acid, arterial, whole blood (10/24/2017 3:26 AM CDT)Only the most recent of2 resultswithin the time period is included. Lactate, Art 0.7 0.5 - 2.2 mmol/L [facility] Specimen Blood, Arterial Narrative Performed At [facility] Effective 10/18/2015: Units/Reference Range Change New: 0.5-2.2 mmol/LPrevious: 5-20 mg/dL Performing Organization Address [facility]/[place] [facility] Phone Number [address] [address] [place] Blood gas, arterial (10/23/2017 4:57 PM CDT)Only the most recent of7 resultswithin the time period is included. pH, Arterial 7.43 7.35 - 7.45 [facility] pCO2, Arterial 32 (L) 35 - 45 mmHg [facility] pO2, Arterial 184 (H) 80 - 90 mmHg [facility] O2 Sat, Arterial 99.3 (H) 96.0 - 97.0 % [facility] HCO3, Arterial 21 21 - 29 mmol/L [facility] Base Excess, Arterial -3.0 (L) -2.0 - 3.0 mmol/L [facility] Patient Temperature 36.7 C [facility] FIO2 40.0 % [facility] Specimen Blood, Arterial - Line, Arterial Performing Organization Address City/[facility] Phone Number [address] [address] [phone] [place] Glucose-Stat Lab (10/23/2017 2:04 PM CDT)Only the most recent of7 resultswithin the time period is included. Glucose 235 (H) 70 - 110 mg/dL [facility] Specimen Blood, Arterial - Line, Arterial Performing Organization Address City/[facility]/Zipcode Phone Number [facility] [address] [place] [address] CENTER EKG 12 lead (10/23/2017 1:09 PM CDT)Only the most recent of3 resultswithin the time period is included. Narrative Performed At Ventricular Rate 76 BPM GE MUSE Atrial Rate 76 BPM P-R Interval 146 ms QRS Duration 146 ms Q-T Interval 446 ms QTC Calculation(Bazett) 501 ms P Eva 70 degrees R Eva 82 degrees T Eva 62 degrees Sinus rhythm with occasional Premature ventricular complexes Right bundle branch block Abnormal ECG When compared with ECG of 21-OCT-2017 10:49, Premature ventricular complexes are now Present Right bundle branch block is now Present Confirmed by MD LEAL JOSEPH P ([id number]) on 10/24/2017 4:29:52 PM Procedure Note Interface, External Ris In - 10/24/2017 4:29 PM CDT Ventricular Rate 76 BPM Atrial Rate 76 BPM P-R Interval 146 ms QRS Duration 146 ms Q-T Interval 446 ms QTC Calculation(Bazett) 501 ms P Eva 70 degrees R Eva 82 degrees T Eva 62 degrees Sinus rhythm with occasional Premature ventricular complexes Right bundle branch block Abnormal ECG When compared with ECG of 21-OCT-2017 10:49, Premature ventricular complexes are now Present Right bundle branch block is now Present Confirmed by MD LEAL JOSEPH P ([id number]) on 10/24/2017 4:29:52 PM Performing Organization Address [facility] Phone Number GE MUSE Prepare plasma (10/23/2017 12:21 PM CDT) Unit ABO O Pos SAFETRACE TX UNIT NUMBER [id number] SAFETRACE TX Status RETURNED FROM ISSUE SAFETRACE TX Blood Bank Product FFP SAFETRACE TX PRODUCT CODE [id number] SAFETRACE TX Performing Organization Address City/[facility] Phone Number SAFETRACE TX Potassium-Stat Lab (10/23/2017 12:11 PM CDT)Only the most recent of6 resultswithin the time period is included. Potassium 3.9 3.6 - 5.5 meq/L [facility] Specimen Blood, Arterial Performing Organization Address [facility] Phone Number [address] [address] [phone] [place] HGB/HCT (H&H)-Stat Lab (10/23/2017 12:11 PM CDT)Only the most recent of6 resultswithin the time period is included. Hemoglobin 10.9 (L) 13.0 - 16.8 g/dL [facility] Hematocrit 32.0 (L) 40.0 - 50.0 % [facility] Specimen Blood, Arterial Performing Organization Address [facility] Phone Number [address] [address] [place] Sodium (10/23/2017 12:11 PM CDT) Sodium 138 136 - 145 meq/L [facility] Specimen Blood Performing Organization Address [facility] Phone Number [address] [address] [place] Glucose (10/23/2017 12:11 PM CDT) Glucose 282 (H) 70 - 105 mg/dL [facility] Specimen Blood Performing Organization Address [facility] Phone Number [address] [address] [place] Hemoglobin A1c (Obtain on all cardiothoracic surgery cases) (10/23/2017 12:10 PM CDT)Only the most recent of2 resultswithin the time period is included. Hemoglobin A1C 7.0 (H) 4.3 - 6.1 % [facility] Specimen Blood Performing Organization Address [facility] Phone Number [address] [address] CENTER POC ACTIVATED CLOTTING TIME (10/23/2017 10:16 AM CDT)Only the most recent of5 resultswithin the time period is included. Activated Clotting Time 114Comment: TESTED AT sec [facility] [address] [address] Specimen Blood Performing Organization Address [facility] Phone Number [address] [address] [phone] [place] Sodium Na-Stat Lab (10/23/2017 10:10 AM CDT)Only the most recent of4 resultswithin the time period is included. Sodium 133 (L) 135 - 148 meq/L [facility] Specimen Blood, Arterial Performing Organization Address [facility]/[place] [facility] Phone Number [address] [address] [place] Thromboelastograph (TEG) (10/23/2017 10:10 AM CDT) TEG Activated Clotting Time 7.2 (H) 4.0 - 7.0 minutes [facility] TEG Fibrinogen Activity 64.0 61.0 - 73.0 degrees [facility] TEG Platelet Aggregation 39.7 (L) 55.0 - 65.0 MM [facility] TEG-H Activated Clotting Time 7.5 (H) 4.0 - 7.0 minutes [facility] TEG-H Fibrinogen Activity 66.0 61.0 - 73.0 degrees [facility] TEG-H Platelet Aggregation 58.6 55.0 - 65.0 MM [facility] Specimen Blood Performing Organization Address [facility]/[place] [facility] Phone Number [address] [address] [phone] [place] Platelet count (10/23/2017 10:10 AM CDT) Platelets 80 (L) 150 - 450 K/CU MM [facility] Specimen Blood Performing Organization Address City/[facility] Phone Number [facility] [address] [place] [address] CENTER XR chest 2 views (10/21/2017 11:17 AM CDT)Only the most recent of2 resultswithin the time period is included. Narrative Performed At FINAL REPORT [facility] Chest 2 views 10/21/2017 11:28 AM CLINICAL HISTORY: Pre-Op, chest pain COMPARISON: 08/07/2017 FINDINGS: The lungs are clear. Cardiomediastinal contours are within normal limits. The central pulmonary vasculature is not engorged. A right hemodialysis catheter is present. The visualized skeleton is intact. IMPRESSION: No acute radiographic abnormalities. Signed: González Nunez MD Report Verified Date/Time:10/21/2017 11:29:02 Reading Location: [facility] Radiology Reading Room Procedure Note Interface, External Ris In - 10/21/2017 11:54 AM CDT FINAL REPORT Chest 2 views 10/21/2017 11:28 AM CLINICAL HISTORY: Pre-Op, chest pain COMPARISON: 08/07/2017 FINDINGS: The lungs are clear. Cardiomediastinal contours are within normal limits. The central pulmonary vasculature is not engorged. A right hemodialysis catheter is present. The visualized skeleton is intact. IMPRESSION: No acute radiographic abnormalities. Signed: González Nunez MD Report Verified Date/Time: 10/21/2017 11:29:02 Reading Location: [facility] Radiology Reading Room Performing Organization Address City/State/Zipcode Phone Number [facility] PT/aPTT (10/21/2017 10:34 AM CDT)Only the most recent of2 resultswithin the time period is included. Protime 13.7 11.7 - 14.7 seconds [facility] INR 1.1 <=5.9 [facility] PTT 33.1 22.5 - 36.0 seconds [facility] Specimen Blood Narrative Performed At [facility] RECOMMENDED COUMADIN/WARFARIN INR THERAPY RANGES STANDARD DOSE: 2.0 - 3.0 Includes: PROPHYLAXIS for venous thrombosis, systemic embolization; TREATMENT for venous thrombosis and/or pulmonary embolus. HIGH RISK: Target INR is 2.5-3.5 for patients with mechanical heart valves. Performing Organization Address City/[facility] Phone Number [place] [address] [place] [address] [phone] CENTER CARDIAC CATH REPORT - SCAN (10/16/2017 7:12 PM CDT) Narrative Performed At CARDIAC CATH REPORT - SCAN (10/01/2017 8:01 PM CDT) Narrative Performed At HLA TYPING CII (08/07/2017 11:28 AM AGRICULTURE EXTENSION SPECIALIST) HLA-DR AG1 11 [facility] HLA TESTING HLA-DR AG2 13 [facility] HLA TESTING HLA-DR AG3-1 52 [facility] HLA TESTING HLA-DR AG3-2 52 [facility] HLA TESTING HLA-DR AG4-1 [facility] HLA TESTING HLA-DR AG4-2 [facility] HLA TESTING HLA-DR AG5-1 [facility] HLA TESTING HLA-DR AG5-2 [facility] HLA TESTING HLA-DQA1 AG 1-1 01 [facility] HLA TESTING HLA-DQA1 AG 1-2 01 [facility] HLA TESTING HLA-DQB1 AG 1-1 5 [facility] HLA TESTING HLA-DQB1 AG 1-2 6 [facility] HLA TESTING HLA-DPA1 AG 1-1 02 [facility] HLA TESTING HLA-DPA1 AG 1-2 04 [facility] HLA TESTING HLA-DPB1 AG 1-1 01:01 [facility] HLA TESTING HLA-DPB1 AG 1-2 105:01 [facility] HLA TESTING HLA-AG Notes [facility] HLA TESTING HLA-AG Report Comments [facility] HLA TESTING Specimen Blood Performing Organization Address City/[facility] Phone Number [facility] HLA TESTING ONE [facility] [place], [place]: [place] [address] [id number], CLIA#[id number] CAP#[id number] UNOS#[id number] [facility] HLA TESTING ONE [facility] [place], [place]: [id number] [place] [address] HLA TYPING CI (08/07/2017 11:28 AM AGRICULTURE EXTENSION SPECIALIST) HLA-A AG1 23 [facility] HLA TESTING HLA-A AG2 33 [facility] HLA TESTING HLA-B AG1 18 [facility] HLA TESTING HLA-B AG2 50 [facility] HLA TESTING HLA-C AG1 8 [facility] HLA TESTING HLA-C AG2 4 [facility] HLA TESTING HLA-B BW1 6 [facility] HLA TESTING HLA-B BW2 6 [facility] HLA TESTING HLA-AG Notes [facility] HLA TEST[facility] HLA-AG Report Comments [facility] HLA TESTING Specimen Blood Performing Organization Address [facility]/[place] [facility] Phone Number [facility] HLA TESTING ONE [facility] [place], [place]: [place] [address] [id number], CLIA#[id number] CAP#[id number] UNOS#[id number] [facility] HLA TESTING ONE [facility] [place], [place]: [id number] [place] [address] FLOW PRA CLASS II WITH REFLEX TO ANTIBODY SPECIFICITY (08/07/2017 11:28 AM AGRICULTURE EXTENSION SPECIALIST) Flow Class II Percent Positive 0 [facility] HLA TESTING Flow Class Report Comments [facility] HLA TESTING Specimen Blood Performing Organization Address [facility]/[place] [facility] Phone Number [facility] HLA TESTING ONE [facility] [place], [place]: [place] [address] [id number], CLIA#[id number] CAP#[id number] UNOS#[id number] [facility] HLA TESTING ONE [facility] [place], [place]: [id number] [place] [address] FLOW PRA CLASS I WITH REFLEX TO ANTIBODY SPECIFICITY (08/07/2017 11:28 AM AGRICULTURE EXTENSION SPECIALIST) Flow Class I Percent Positive 6 [facility] HLA TESTING Flow Class Report Comments [facility] HLA TEST[facility] Specimen Blood Performing Organization Address [facility]/[place] [facility] Phone Number [facility] HLA TESTING ONE [facility] [place], [place]: [place] [address] [id number], CLIA#[id number] CAP#[id number] UNOS#[id number] [facility] HLA TESTING ONE [facility] [place], [place]: [id number] [place] [address] AB SPECIFICITY CLASS I (08/07/2017 11:28 AM AGRICULTURE EXTENSION SPECIALIST) AB Specificity Class I NO CLASS I ANTIBODY [facility] HLA TESTING DETECTED WITH MFIs > 4000 AB Specificity Titr Class [facility] HLA TESTING Report Specimen Blood Performing Organization Address City/[facility] Phone Number [facility] HLA TESTING ONE [facility] [place], [place]: [place] [address] [id number], CLIA#[id number] CAP#[id number] UNOS#[id number] [facility] HLA TESTING ONE [facility] [place], [place]: [id number] [place] [address] HIV-1 Antigen with HIV-1/2 Antibody (08/07/2017 10:22 AM AGRICULTURE EXTENSION SPECIALIST) HIV-1 Antigen with HIV 1&2 NON-REACTIVE Nonreactive [facility] Antibody [facility] Specimen Blood Performing Organization Address City/State/Zipcode Phone Number [facility] [address] [place] [address] [facility] Cystogram Cine or Video Voiding (08/07/2017 9:48 AM AGRICULTURE EXTENSION SPECIALIST) Narrative Performed At FINAL REPORT GE RIS VOIDING CYSTOURETHROGRAM, WITH KUB History provided: Evaluation for renal transplantation FINDINGS: KUB unremarkable with the exception of chronic degenerative disc disease at L3-4. When the patient was catheterized, it appears that the catheter only extended into the urethra. Nonetheless, a satisfactory occlusion was achieved, and the bladder was filled with 150 cc diluted iodinated contrast. The catheter was removed and the patient allowed to void. Bladder contours are smooth. No evidence of vesicoureteral reflux. Normal-appearing male urethra during voiding with complete bladder emptying. IMPRESSION: Normal VCUG. Fluoroscopy time: 79 seconds Number of exposures performed: 13 Radiation dose (Ka,r): 33.3 mGy Signed: Kimberly Duarte MD Report Verified Date/Time:08/07/2017 10:05:30 Reading Location: [address] Radiology Reading Room Procedure Note Interface, External Ris In - 08/07/2017 10:07 AM AGRICULTURE EXTENSION SPECIALIST FINAL REPORT VOIDING CYSTOURETHROGRAM, WITH KUB History provided: Evaluation for renal transplantation FINDINGS: KUB unremarkable with the exception of chronic degenerative disc disease at L3-4. When the patient was catheterized, it appears that the catheter only extended into the urethra. Nonetheless, a satisfactory occlusion was achieved, and the bladder was filled with 150 cc diluted iodinated contrast. The catheter was removed and the patient allowed to void. Bladder contours are smooth. No evidence of vesicoureteral reflux. Normal-appearing male urethra during voiding with complete bladder emptying. IMPRESSION: Normal VCUG. Fluoroscopy time: 79 seconds Number of exposures performed: 13 Radiation dose (Ka,r): 33.3 mGy Signed: Kimberly Duarte MD Report Verified Date/Time: 08/07/2017 10:05:30 Reading Location: [address] Radiology Reading Room Performing Organization Address City/State/Zipcode Phone Number [place] US abdomen complete (08/07/2017 8:52 AM AGRICULTURE EXTENSION SPECIALIST) Narrative Performed At FINAL REPORT [place] COMPLETE ABDOMINAL ULTRASOUND History provided: Renal failure. Evaluation for renal transplantation. Liver measures 12.2 cm in greatest span and shows no focal abnormality. Normal portal vein diameter of 10 mm. Gallbladder is normal in size and wall thickness with no calculi evident. Common duct measures 4 mm. Spleen normal in size measuring 7 cm. Kidneys are small in size, the right measuring 7.9 x 3.5 x 4.7 cm, and the left measuring 8.5 x 4.7 x 3.8 cm. Kidneys are hyperechogenic and show no hydronephrosis. Pancreas poorly visualized. IVC is patent. Abdominal aorta normal in caliber. No evidence of ascites. No pleural effusions. IMPRESSION: Small kidneys in patient with known renal failure. Otherwise unremarkable study. Signed: Kimberly Duarte MD Report Verified Date/Time:08/07/2017 09:58:47 Reading Location: [address] Radiology Reading Room Procedure Note Interface, External Ris In - 08/07/2017 10:01 AM AGRICULTURE EXTENSION SPECIALIST FINAL REPORT COMPLETE ABDOMINAL ULTRASOUND History provided: Renal failure. Evaluation for renal transplantation. Liver measures 12.2 cm in greatest span and shows no focal abnormality. Normal portal vein diameter of 10 mm. Gallbladder is normal in size and wall thickness with no calculi evident. Common duct measures 4 mm. Spleen normal in size measuring 7 cm. Kidneys are small in size, the right measuring 7.9 x 3.5 x 4.7 cm, and the left measuring 8.5 x 4.7 x 3.8 cm. Kidneys are hyperechogenic and show no hydronephrosis. Pancreas poorly visualized. IVC is patent. Abdominal aorta normal in caliber. No evidence of ascites. No pleural effusions. IMPRESSION: Small kidneys in patient with known renal failure. Otherwise unremarkable study. Signed: Kimberly Duarte MD Report Verified Date/Time: 08/07/2017 09:58:47 Reading Location: [address] Radiology Reading Room Performing Organization Address City/State/Zipcode Phone Number RIS Blood typing, automated (08/07/2017 7:18 AM AGRICULTURE EXTENSION SPECIALIST) ABO/RH AUTOMATED (BEAKER) O POSITIVE [facility] Specimen Blood Performing Organization Address [facility] Phone Number [address] [address] [phone] PSA (08/07/2017 7:18 AM AGRICULTURE EXTENSION SPECIALIST) PSA 6.7 (H) 0.0 - 4.0 ng/mL [facility] Specimen Blood Performing Organization Address City/[facility] Phone Number [address] [address] [phone] [place] Lipid panel (08/07/2017 7:18 AM AGRICULTURE EXTENSION SPECIALIST) Triglycerides 179 mg/dL [facility] Cholesterol 225 mg/dL [facility] HDL 51 mg/dL [facility] LDL Calculated 138 mg/dL [facility] Specimen Blood Narrative Performed At [facility] Triglyceride Reference Range: Low Risk <150 [id number] High Risk 200-499 Very High Risk>=500 Cholesterol Reference Range: Low Risk <200 [id number] High Risk>240 HDL Cholesterol Reference Range: Low Risk >=60 High Risk <40 LDL Cholesterol Reference Range: Optimal<100 Near [id number] [id number] Very High >=190 Performing Organization Address [facility] Phone Number [address] [address] [phone] CENTER after 05/20/2017 Insurance Payer Benefit Plan / Group Subscriber ID Type Phone Address MEDICARE MEDICARE A B xxxxxxxxxx Medicare HUMANA - MGD CARE HUMANA INDEMNITY xxxxxxxxx PPO Advance Directives For more information, please contact:[address] [phone] Code Status Date Activated Date Inactivated Comments Full Code 10/23/2017 11:53 AM 10/29/2017 6:47 PM This code status was determined by: Patient Full Code 10/23/2017 5:57 AM 10/23/2017 11:53 AM This code status was determined by: Patient Full Code 09/30/2017 9:41 AM 09/30/2017 11:12 PM This code status was determined by: Patient
--- OUTSIDE RECORDS SUMMARY | 2018-05-21 06:41 | XMS REPORT ---
:1950 [facility] Address [address] [place] [address] Care Team Providers Name Role Phone SUSIE JORGE Unavailable Unavailable BRAD GANDARA Unavailable Unavailable CHERISE GALEANA Unavailable Unavailable JENNIFER SORTO Unavailable Unavailable Problems This patient has no known problems. Allergies, Adverse Reactions, Alerts This patient has no known allergies or adverse reactions. Medications This patient has no known medications. Results Test Description Test Time Test Comments Text Results Atomic Results Result Comments COMPREHENSIVE METABOLIC PANEL 2017-11-18 13:28:00 Test Item Value Reference Range Comments TOTAL PROTEIN (BEAKER) (test 7.4 gm/dL 6.0-8.3 tnit=397) ALBUMIN (BEAKER) (test 4.3 g/dL 3.5-5.0 ogiv=0641) ALKALINE PHOSPHATASE 102 U/L 40-150 (BEAKER) (test sazo=935) BILIRUBIN TOTAL (BEAKER) 0.3 mg/dL 0.2-1.2 (test jnmm=808) SODIUM (BEAKER) (test 139 meq/L 136-145 bthg=354) POTASSIUM (BEAKER) (test 4.0 meq/L 3.5-5.1 ynop=152) CHLORIDE (BEAKER) (test 104 meq/L 98-107 bkky=349) CO2 (BEAKER) (test vcfc=607) 25 meq/L 22-29 BLOOD UREA NITROGEN (BEAKER) 23 mg/dL 7-21 (test xjqa=155) CREATININE (BEAKER) (test 4.88 mg/dL 0.57-1.25 qjld=108) GLUCOSE RANDOM (BEAKER) 136 mg/dL 70-105 (test zdwp=183) CALCIUM (BEAKER) (test 9.6 mg/dL 8.4-10.2 sbdy=965) AST (SGOT) (BEAKER) (test 15 U/L 5-34 zvkz=012) ALT (SGPT) (BEAKER) (test 15 U/L 6-55 lcvg=106) EGFR (BEAKER) (test 15 mL/min/1.73 sq m ESTIMATED GFR IS NOT smbg=5670) ACCURATE CREATININE CLEARANCE IN PREDICTING GLOMERULAR FILTRATION RATE. ESTIMATED GFR IS NOT APPLICABLE FOR DIALYSIS PATIENTS. ALKALINE [id number] 13:23:00 Test Item Value Reference Range Comments ALKALINE PHOSPHATASE (BEAKER) (test tenf=602) 102 U/L 40-150 CREATINE KINASE (CK)2017-11-18 13:23:00 Test Item Value Reference Range Comments CREATINE KINASE TOTAL (BEAKER) (test nzse=491) 56 U/L 29-200 LACTATE DEHYDROGENASE (LDH)2017-11-18 13:23:00 Test Item Value Reference Range Comments LACTATE DEHYDROGENASE (BEAKER) (test fpvh=398) 235 U/L 125-220 [id number] 13:18:00 Test Item Value Reference Range Comments PARTIAL THROMBOPLASTIN TIME (BEAKER) (test 35.3 seconds 22.5-36.0 vxyt=948) PROTHROMBIN [id number] 13:17:00 Test Item Value Reference Range Comments PROTIME (BEAKER) (test xbvy=712) 13.7 seconds 11.7-14.7 INR (BEAKER) (test eqpu=584) 1.1 <=5.9 RECOMMENDED COUMADIN/WARFARIN INR THERAPY RANGESSTANDARD DOSE: 2.0 - 3.0 Includes: PROPHYLAXIS forvenous thrombosis, systemic embolization; TREATMENT for venous thrombosis and/or pulmonary embolus.HIGH RISK: Target INR is 2.5-3.5 for patients with mechanical heart valves.[id number] 13:17:00 Test Item Value Reference Range Comments FIBRINOGEN LEVEL (BEAKER) (test zbwe=330) 467 mg/dl 225-434 CBC W/PLT COUNT & AUTO [id number] 12:54:00 Test Item Value Reference Range Comments WHITE BLOOD CELL COUNT (BEAKER) (test nylh=359) 5.5 K/ L 3.5-10.5 RED BLOOD CELL COUNT (BEAKER) (test hnmp=820) 3.95 M/ L 4.63-6.08 HEMOGLOBIN (BEAKER) (test hpvw=628) 10.7 GM/DL 13.7-17.5 HEMATOCRIT (BEAKER) (test recl=510) 36.7 % 40.1-51.0 MEAN CORPUSCULAR VOLUME (BEAKER) (test dqch=279) 92.9 fL 79.0-92.2 MEAN CORPUSCULAR HEMOGLOBIN (BEAKER) (test 27.1 pg 25.7-32.2 othv=951) MEAN CORPUSCULAR HEMOGLOBIN CONC (BEAKER) (test 29.2 GM/DL 32.3-36.5 rpqq=711) RED CELL DISTRIBUTION WIDTH (BEAKER) (test 15.4 % 11.6-14.4 rmho=491) PLATELET COUNT (BEAKER) (test ejzi=200) 243 K/CU MM 150-450 MEAN PLATELET VOLUME (BEAKER) (test gevk=387) 11.7 fL 9.4-12.4 NUCLEATED RED BLOOD CELLS (BEAKER) (test 0 /100 WBC 0-0 oreq=762) NEUTROPHILS RELATIVE PERCENT (BEAKER) (test 49 % tvwb=299) LYMPHOCYTES RELATIVE PERCENT (BEAKER) (test 34 % diou=602) MONOCYTES RELATIVE PERCENT (BEAKER) (test 9 % wjxb=563) EOSINOPHILS RELATIVE PERCENT (BEAKER) (test 7 % akqk=443) BASOPHILS RELATIVE PERCENT (BEAKER) (test 1 % zyzw=568) NEUTROPHILS ABSOLUTE COUNT (BEAKER) (test 2.67 K/ L 1.78-5.38 yttk=916) LYMPHOCYTES ABSOLUTE COUNT (BEAKER) (test 1.84 K/ L 1.32-3.57 vpxi=891) MONOCYTES ABSOLUTE COUNT (BEAKER) (test 0.51 K/ L 0.30-0.82 gizq=158) EOSINOPHILS ABSOLUTE COUNT (BEAKER) (test 0.36 K/ L 0.04-0.54 joxc=965) BASOPHILS ABSOLUTE COUNT (BEAKER) (test 0.06 K/ L 0.01-0.08 gcfj=649) IMMATURE GRANULOCYTES-RELATIVE PERCENT (BEAKER) 0 % 0-1 (test kbkw=3753) POCT-GLUCOSE [id number] 12:50:00 Test Item Value Reference Range Comments POC-GLUCOSE METER (BEAKER) 203 mg/dL 70-110 TESTED AT [facility] [address] [facility] (test tbzj=2892) [facility] [address] [id number] 08:18:00 Test Item Value Reference Range Comments PHOSPHORUS (BEAKER) (test pklj=456) 2.1 mg/dL 2.3-4.7 BASIC METABOLIC [id number] 08:18:00 Test Item Value Reference Range Comments SODIUM (BEAKER) (test 139 meq/L 136-145 scdl=159) POTASSIUM (BEAKER) (test 3.7 meq/L 3.5-5.1 knxs=642) CHLORIDE (BEAKER) (test 105 meq/L 98-107 wnlu=289) CO2 (BEAKER) (test 26 meq/L 22-29 yzyo=162) BLOOD UREA NITROGEN 31 mg/dL 7-21 (BEAKER) (test iaan=170) CREATININE (BEAKER) (test 3.68 mg/dL 0.57-1.25 pjrf=255) GLUCOSE RANDOM (BEAKER) 91 mg/dL 70-105 (test tvia=944) CALCIUM (BEAKER) (test 8.5 mg/dL 8.4-10.2 xxye=728) EGFR (BEAKER) (test 20 mL/min/1.73 sq m ESTIMATED GFR IS NOT gtfe=5853) ACCURATE CREATININE CLEARANCE IN PREDICTING GLOMERULAR FILTRATION RATE. ESTIMATED GFR IS NOT APPLICABLE FOR DIALYSIS PATIENTS. CBC W/PLT COUNT & AUTO [id number] 08:06:00 Test Item Value Reference Range Comments WHITE BLOOD CELL COUNT (BEAKER) (test ilpt=922) 4.7 K/ L 3.5-10.5 RED BLOOD CELL COUNT (BEAKER) (test napm=270) 2.84 M/ L 4.63-6.08 HEMOGLOBIN (BEAKER) (test wfbg=274) 7.8 GM/DL 13.7-17.5 HEMATOCRIT (BEAKER) (test nxkq=120) 25.9 % 40.1-51.0 MEAN CORPUSCULAR VOLUME (BEAKER) (test pxwv=108) 91.2 fL 79.0-92.2 MEAN CORPUSCULAR HEMOGLOBIN (BEAKER) (test 27.5 pg 25.7-32.2 dsan=279) MEAN CORPUSCULAR HEMOGLOBIN CONC (BEAKER) (test 30.1 GM/DL 32.3-36.5 votq=860) RED CELL DISTRIBUTION WIDTH (BEAKER) (test 14.5 % 11.6-14.4 kwxu=822) PLATELET COUNT (BEAKER) (test apsk=049) 180 K/CU MM 150-450 MEAN PLATELET VOLUME (BEAKER) (test ioaz=413) 11.7 fL 9.4-12.4 NUCLEATED RED BLOOD CELLS (BEAKER) (test 0 /100 WBC 0-0 zibl=086) NEUTROPHILS RELATIVE PERCENT (BEAKER) (test 47 % hsys=599) LYMPHOCYTES RELATIVE PERCENT (BEAKER) (test 36 % jpji=923) MONOCYTES RELATIVE PERCENT (BEAKER) (test 12 % rahb=641) EOSINOPHILS RELATIVE PERCENT (BEAKER) (test 4 % heyg=240) BASOPHILS RELATIVE PERCENT (BEAKER) (test 0 % fdha=019) NEUTROPHILS ABSOLUTE COUNT (BEAKER) (test 2.20 K/ L 1.78-5.38 jjba=188) LYMPHOCYTES ABSOLUTE COUNT (BEAKER) (test 1.72 K/ L 1.32-3.57 qqxz=139) MONOCYTES ABSOLUTE COUNT (BEAKER) (test 0.55 K/ L 0.30-0.82 ayha=684) EOSINOPHILS ABSOLUTE COUNT (BEAKER) (test 0.21 K/ L 0.04-0.54 ldcj=042) BASOPHILS ABSOLUTE COUNT (BEAKER) (test 0.02 K/ L 0.01-0.08 yfzy=275) IMMATURE GRANULOCYTES-RELATIVE PERCENT (BEAKER) 1 % 0-1 (test nkmz=7135) CBC W/PLT COUNT & AUTO [id number] 07:54:00 Test Item Value Reference Range Comments WHITE BLOOD CELL COUNT (BEAKER) (test tejk=924) 4.2 K/ L 3.5-10.5 RED BLOOD CELL COUNT (BEAKER) (test vbvb=676) 2.95 M/ L 4.63-6.08 HEMOGLOBIN (BEAKER) (test ulqg=334) 8.0 GM/DL 13.7-17.5 HEMATOCRIT (BEAKER) (test kyni=086) 26.5 % 40.1-51.0 MEAN CORPUSCULAR VOLUME (BEAKER) (test ivqz=816) 89.8 fL 79.0-92.2 MEAN CORPUSCULAR HEMOGLOBIN (BEAKER) (test 27.1 pg 25.7-32.2 sgrf=591) MEAN CORPUSCULAR HEMOGLOBIN CONC (BEAKER) (test 30.2 GM/DL 32.3-36.5 oybv=307) RED CELL DISTRIBUTION WIDTH (BEAKER) (test 14.6 % 11.6-14.4 tvqe=776) PLATELET COUNT (BEAKER) (test ntqa=423) 179 K/CU MM 150-450 MEAN PLATELET VOLUME (BEAKER) (test ooym=225) 11.3 fL 9.4-12.4 NUCLEATED RED BLOOD CELLS (BEAKER) (test 0 /100 WBC 0-0 edmn=518) NEUTROPHILS RELATIVE PERCENT (BEAKER) (test 52 % znkc=877) LYMPHOCYTES RELATIVE PERCENT (BEAKER) (test 35 % hqxh=724) MONOCYTES RELATIVE PERCENT (BEAKER) (test 7 % gwft=351) EOSINOPHILS RELATIVE PERCENT (BEAKER) (test 4 % xndk=501) BASOPHILS RELATIVE PERCENT (BEAKER) (test 1 % yooa=808) NEUTROPHILS ABSOLUTE COUNT (BEAKER) (test 2.22 K/ L 1.78-5.38 gqoh=869) LYMPHOCYTES ABSOLUTE COUNT (BEAKER) (test 1.50 K/ L 1.32-3.57 ofnc=768) MONOCYTES ABSOLUTE COUNT (BEAKER) (test 0.30 K/ L 0.30-0.82 sevo=840) EOSINOPHILS ABSOLUTE COUNT (BEAKER) (test 0.17 K/ L 0.04-0.54 bbau=448) BASOPHILS ABSOLUTE COUNT (BEAKER) (test 0.03 K/ L 0.01-0.08 zclm=288) IMMATURE GRANULOCYTES-RELATIVE PERCENT (BEAKER) 1 % 0-1 (test zhvw=7145) BASIC METABOLIC [id number] 06:41:00 Test Item Value Reference Range Comments SODIUM (BEAKER) (test 139 meq/L 136-145 brtv=246) POTASSIUM (BEAKER) (test 4.0 meq/L 3.5-5.1 zdic=245) CHLORIDE (BEAKER) (test 106 meq/L 98-107 qiwe=766) CO2 (BEAKER) (test 25 meq/L 22-29 vacn=846) BLOOD UREA NITROGEN 45 mg/dL 7-21 (BEAKER) (test rufw=961) CREATININE (BEAKER) (test 5.14 mg/dL 0.57-1.25 svut=300) GLUCOSE RANDOM (BEAKER) 82 mg/dL 70-105 (test biqk=141) CALCIUM (BEAKER) (test 8.7 mg/dL 8.4-10.2 ldgd=244) EGFR (BEAKER) (test 14 mL/min/1.73 sq m ESTIMATED GFR IS NOT lbkg=4950) ACCURATE CREATININE CLEARANCE IN PREDICTING GLOMERULAR FILTRATION RATE. ESTIMATED GFR IS NOT APPLICABLE FOR DIALYSIS PATIENTS. [id number] 06:37:00 Test Item Value Reference Range Comments MAGNESIUM (BEAKER) (test agng=100) 2.4 mg/dL 1.6-2.6 POCT-GLUCOSE [id number] 21:17:00 Test Item Value Reference Range Comments POC-GLUCOSE METER (BEAKER) 147 mg/dL 70-110 TESTED AT [address] (test lusb=8098) [place] [id number] POCT-GLUCOSE [id number] 16:44:00 Test Item Value Reference Range Comments POC-GLUCOSE METER (BEAKER) 87 mg/dL 70-110 TESTED AT [address] (test mzxw=3201) [facility] [address] POCT-GLUCOSE [id number] 12:41:00 Test Item Value Reference Range Comments POC-GLUCOSE METER (BEAKER) 176 mg/dL 70-110 TESTED AT [address] (test dwfa=3271) [place] [id number] POCT-GLUCOSE [id number] 07:36:00 Test Item Value Reference Range Comments POC-GLUCOSE METER (BEAKER) 140 mg/dL 70-110 TESTED AT [address] (test ewek=8883) [facility] [address] BASIC METABOLIC [id number] 05:04:00 Test Item Value Reference Range Comments SODIUM (BEAKER) (test 140 meq/L 136-145 huhg=004) POTASSIUM (BEAKER) (test 3.8 meq/L 3.5-5.1 eiqp=837) CHLORIDE (BEAKER) (test 105 meq/L 98-107 flek=512) CO2 (BEAKER) (test 25 meq/L 22-29 zubk=851) BLOOD UREA NITROGEN 33 mg/dL 7-21 (BEAKER) (test iqst=370) CREATININE (BEAKER) (test 4.36 mg/dL 0.57-1.25 kwdl=679) GLUCOSE RANDOM (BEAKER) 117 mg/dL 70-105 (test najd=689) CALCIUM (BEAKER) (test 9.0 mg/dL 8.4-10.2 exft=253) EGFR (BEAKER) (test 17 mL/min/1.73 sq m ESTIMATED GFR IS NOT mfpy=8945) ACCURATE CREATININE CLEARANCE IN PREDICTING GLOMERULAR FILTRATION RATE. ESTIMATED GFR IS NOT APPLICABLE FOR DIALYSIS PATIENTS. [id number] 05:03:00 Test Item Value Reference Range Comments MAGNESIUM (BEAKER) (test vuyr=641) 2.4 mg/dL 1.6-2.6 [id number] 22:18:00 Test Item Value Reference Range Comments POTASSIUM (BEAKER) (test viyo=640) 3.6 meq/L 3.5-5.1 POCT-GLUCOSE [id number] 22:07:00 Test Item Value Reference Range Comments POC-GLUCOSE METER (BEAKER) 104 mg/dL 70-110 TESTED AT [address] (test dvaj=7616) [facility] [address] POCT-GLUCOSE [id number] 16:59:00 Test Item Value Reference Range Comments POC-GLUCOSE METER (BEAKER) 130 mg/dL 70-110 TESTED AT [address] (test cnzr=4419) [facility] [address] ALKALINE [id number] 14:14:00 Test Item Value Reference Range Comments ALKALINE PHOSPHATASE (BEAKER) (test qxpi=064) 40 U/L 40-150 PROTEIN, [id number] 14:14:00 Test Item Value Reference Range Comments TOTAL PROTEIN (BEAKER) (test ozrk=278) 6.3 gm/dL 6.0-8.3 AST (SGOT)2017-10-27 14:14:00 Test Item Value Reference Range Comments AST (SGOT) (BEAKER) (test dpfy=598) 68 U/L 5-34 ALT (SGPT)2017-10-27 14:14:00 Test Item Value Reference Range Comments ALT (SGPT) (BEAKER) (test qifb=469) 90 U/L 6-55 BILIRUBIN, TOTAL AND [id number] 14:14:00 Test Item Value Reference Range Comments BILIRUBIN TOTAL (BEAKER) (test ovhh=209) 0.2 mg/dL 0.2-1.2 BILIRUBIN DIRECT (BEAKER) (test rsdy=107) 0.1 mg/dL 0.1-0.5 [id number] 14:14:00 Test Item Value Reference Range Comments ALBUMIN (BEAKER) (test tjnj=4814) 3.4 g/dL 3.5-5.0 CREATINE KINASE (CK)2017-10-27 14:14:00 Test Item Value Reference Range Comments CREATINE KINASE TOTAL (BEAKER) (test aqbc=960) 665 U/L 29-200 LACTATE DEHYDROGENASE (LDH)2017-10-27 14:14:00 Test Item Value Reference Range Comments LACTATE DEHYDROGENASE (BEAKER) (test hisf=338) 314 U/L 125-220 PROTHROMBIN [id number] 13:54:00 Test Item Value Reference Range Comments PROTIME (BEAKER) (test pbky=120) 14.6 seconds 11.7-14.7 INR (BEAKER) (test xgal=921) 1.1 <=5.9 RECOMMENDED COUMADIN/WARFARIN INR THERAPY RANGESSTANDARD DOSE: 2.0 - 3.0 Includes: PROPHYLAXIS forvenous thrombosis, systemic embolization; TREATMENT for venous thrombosis and/or pulmonary embolus.HIGH RISK: Target INR is 2.5-3.5 for patients with mechanical heart valves.[id number] 13:54:00 Test Item Value Reference Range Comments PARTIAL THROMBOPLASTIN TIME (BEAKER) (test 33.4 seconds 22.5-36.0 kwpb=022) POCT-GLUCOSE [id number] 12:17:00 Test Item Value Reference Range Comments POC-GLUCOSE METER (BEAKER) 211 mg/dL 70-110 TESTED AT [address] (test dwkp=9845) [place] [id number] POCT-GLUCOSE [id number] 08:22:00 Test Item Value Reference Range Comments POC-GLUCOSE METER (BEAKER) 221 mg/dL 70-110 TESTED AT [address] (test kdwg=8044) [place] [id number] BASIC METABOLIC [id number] 07:54:00 Test Item Value Reference Range Comments SODIUM (BEAKER) (test 138 meq/L 136-145 papx=616) POTASSIUM (BEAKER) (test 3.9 meq/L 3.5-5.1 zrrd=765) CHLORIDE (BEAKER) (test 102 meq/L 98-107 ktob=323) CO2 (BEAKER) (test 25 meq/L 22-29 ujfg=440) BLOOD UREA NITROGEN 60 mg/dL 7-21 (BEAKER) (test jwkn=146) CREATININE (BEAKER) (test 6.81 mg/dL 0.57-1.25 idld=704) GLUCOSE RANDOM (BEAKER) 177 mg/dL 70-105 (test jehc=399) CALCIUM (BEAKER) (test 9.0 mg/dL 8.4-10.2 ivpf=758) EGFR (BEAKER) (test 10 mL/min/1.73 sq m ESTIMATED GFR IS NOT epwm=3244) ACCURATE CREATININE CLEARANCE IN PREDICTING GLOMERULAR FILTRATION RATE. ESTIMATED GFR IS NOT APPLICABLE FOR DIALYSIS PATIENTS. [id number] 07:52:00 Test Item Value Reference Range Comments MAGNESIUM (BEAKER) (test ccrp=999) 2.8 mg/dL 1.6-2.6 CBC W/PLT COUNT & AUTO [id number] 07:11:00 Test Item Value Reference Range Comments WHITE BLOOD CELL COUNT (BEAKER) (test eesm=362) 6.1 K/ L 3.5-10.5 RED BLOOD CELL COUNT (BEAKER) (test gwji=723) 3.04 M/ L 4.63-6.08 HEMOGLOBIN (BEAKER) (test iyyw=773) 8.4 GM/DL 13.7-17.5 HEMATOCRIT (BEAKER) (test ejnd=841) 27.4 % 40.1-51.0 MEAN CORPUSCULAR VOLUME (BEAKER) (test vymv=961) 90.1 fL 79.0-92.2 MEAN CORPUSCULAR HEMOGLOBIN (BEAKER) (test 27.6 pg 25.7-32.2 rupp=150) MEAN CORPUSCULAR HEMOGLOBIN CONC (BEAKER) (test 30.7 GM/DL 32.3-36.5 hpfc=127) RED CELL DISTRIBUTION WIDTH (BEAKER) (test 14.9 % 11.6-14.4 llja=915) PLATELET COUNT (BEAKER) (test usie=823) 141 K/CU MM 150-450 MEAN PLATELET VOLUME (BEAKER) (test viro=503) 12.1 fL 9.4-12.4 NUCLEATED RED BLOOD CELLS (BEAKER) (test 0 /100 WBC 0-0 mhlf=106) NEUTROPHILS RELATIVE PERCENT (BEAKER) (test 64 % krqc=831) LYMPHOCYTES RELATIVE PERCENT (BEAKER) (test 21 % rqod=262) MONOCYTES RELATIVE PERCENT (BEAKER) (test 11 % bsop=578) EOSINOPHILS RELATIVE PERCENT (BEAKER) (test 4 % ycug=611) BASOPHILS RELATIVE PERCENT (BEAKER) (test 1 % xdxa=650) NEUTROPHILS ABSOLUTE COUNT (BEAKER) (test 3.88 K/ L 1.78-5.38 bixf=118) LYMPHOCYTES ABSOLUTE COUNT (BEAKER) (test 1.29 K/ L 1.32-3.57 yzvf=645) MONOCYTES ABSOLUTE COUNT (BEAKER) (test 0.65 K/ L 0.30-0.82 kkuj=055) EOSINOPHILS ABSOLUTE COUNT (BEAKER) (test 0.23 K/ L 0.04-0.54 wrye=055) BASOPHILS ABSOLUTE COUNT (BEAKER) (test 0.03 K/ L 0.01-0.08 tcih=254) IMMATURE GRANULOCYTES-RELATIVE PERCENT (BEAKER) 0 % 0-1 (test anyv=6101) POCT-GLUCOSE [id number] 22:32:00 Test Item Value Reference Range Comments POC-GLUCOSE METER (BEAKER) 130 mg/dL 70-110 TESTED AT [address] (test rzoo=5923) [facility] [address] POCT-GLUCOSE [id number] 17:40:00 Test Item Value Reference Range Comments POC-GLUCOSE METER (BEAKER) 72 mg/dL 70-110 TESTED AT [address] (test fkcu=6027) [place] [id number] RAD, CHEST, 1 VIEW, NON [id number] 17:08:00Reason for exam:-> sternotomyFINAL REPORT CLINICAL INDICATION: Postop Comparison: 10/25/2017 The cardiomediastinal contours are stable. Central pulmonary vascular prominence and bilateral parenchymal opacities are similar within variation of acquisition technique. Blunting of the costophrenic sulci may reflect trace effusions or pleural thickening. There is no pneumothorax. A tunneled right IJ dialysis catheter remains in place. Signed: Armando Hassan MDReport Verified Date/Time: 10/26/2017 17:08:24 Reading Location: [address] Reading Room Electronically signed by: ARMANDO HASSAN M.D.on 10/26/2017 05:08 PMPOCT-GLUCOSE [id number] 12:37:00 Test Item Value Reference Range Comments POC-GLUCOSE METER (BEAKER) 215 mg/dL 70-110 TESTED AT [facility] [address] [facility] (test wprd=7634) [facility] [address] POCT-GLUCOSE [id number] 07:58:00 Test Item Value Reference Range Comments POC-GLUCOSE METER (BEAKER) 180 mg/dL 70-110 TESTED AT [place] [id number] [facility] (test jgjz=9831) [facility] [address] BASIC METABOLIC [id number] 06:13:00 Test Item Value Reference Range Comments SODIUM (BEAKER) (test 135 meq/L 136-145 kmza=729) POTASSIUM (BEAKER) (test 3.9 meq/L 3.5-5.1 hpkc=409) CHLORIDE (BEAKER) (test 102 meq/L 98-107 dtgn=566) CO2 (BEAKER) (test 21 meq/L 22-29 rhps=803) BLOOD UREA NITROGEN 49 mg/dL 7-21 (BEAKER) (test nniz=487) CREATININE (BEAKER) (test 6.12 mg/dL 0.57-1.25 yjfu=765) GLUCOSE RANDOM (BEAKER) 158 mg/dL 70-105 (test wlcx=199) CALCIUM (BEAKER) (test 8.5 mg/dL 8.4-10.2 xkxe=531) EGFR (BEAKER) (test 11 mL/min/1.73 sq m ESTIMATED GFR IS NOT jugs=2185) ACCURATE CREATININE CLEARANCE IN PREDICTING GLOMERULAR FILTRATION RATE. ESTIMATED GFR IS NOT APPLICABLE FOR DIALYSIS PATIENTS. CBC W/PLT COUNT & AUTO [id number] 06:02:00 Test Item Value Reference Range Comments WHITE BLOOD CELL COUNT (BEAKER) (test qzxx=399) 6.8 K/ L 3.5-10.5 RED BLOOD CELL COUNT (BEAKER) (test ment=623) 3.02 M/ L 4.63-6.08 HEMOGLOBIN (BEAKER) (test cazs=218) 8.2 GM/DL 13.7-17.5 HEMATOCRIT (BEAKER) (test uzer=423) 27.0 % 40.1-51.0 MEAN CORPUSCULAR VOLUME (BEAKER) (test cbrf=244) 89.4 fL 79.0-92.2 MEAN CORPUSCULAR HEMOGLOBIN (BEAKER) (test 27.2 pg 25.7-32.2 qojq=302) MEAN CORPUSCULAR HEMOGLOBIN CONC (BEAKER) (test 30.4 GM/DL 32.3-36.5 kkxi=707) RED CELL DISTRIBUTION WIDTH (BEAKER) (test 15.4 % 11.6-14.4 yrbr=830) PLATELET COUNT (BEAKER) (test lemp=690) 116 K/CU MM 150-450 MEAN PLATELET VOLUME (BEAKER) (test vkch=533) 12.1 fL 9.4-12.4 NUCLEATED RED BLOOD CELLS (BEAKER) (test 0 /100 WBC 0-0 xgwz=625) NEUTROPHILS RELATIVE PERCENT (BEAKER) (test 61 % auxv=009) LYMPHOCYTES RELATIVE PERCENT (BEAKER) (test 26 % knkz=174) MONOCYTES RELATIVE PERCENT (BEAKER) (test 10 % xomr=504) EOSINOPHILS RELATIVE PERCENT (BEAKER) (test 2 % zwld=598) BASOPHILS RELATIVE PERCENT (BEAKER) (test 1 % indm=150) NEUTROPHILS ABSOLUTE COUNT (BEAKER) (test 4.13 K/ L 1.78-5.38 gjlp=538) LYMPHOCYTES ABSOLUTE COUNT (BEAKER) (test 1.75 K/ L 1.32-3.57 lked=737) MONOCYTES ABSOLUTE COUNT (BEAKER) (test 0.65 K/ L 0.30-0.82 vkls=119) EOSINOPHILS ABSOLUTE COUNT (BEAKER) (test 0.16 K/ L 0.04-0.54 bsoi=985) BASOPHILS ABSOLUTE COUNT (BEAKER) (test 0.04 K/ L 0.01-0.08 fytt=590) IMMATURE GRANULOCYTES-RELATIVE PERCENT (BEAKER) 0 % 0-1 (test xxiq=5776) POCT-GLUCOSE [id number] 20:48:00 Test Item Value Reference Range Comments POC-GLUCOSE METER (BEAKER) 222 mg/dL 70-110 TESTED AT [address] (test mocw=9165) [facility] [address] POCT-GLUCOSE [id number] 18:04:00 Test Item Value Reference Range Comments POC-GLUCOSE METER (BEAKER) 188 mg/dL 70-110 TESTED AT [address] (test ttwo=1503) [place] [address] POCT-GLUCOSE [id number] 13:33:00 Test Item Value Reference Range Comments POC-GLUCOSE METER (BEAKER) 196 mg/dL 70-110 TESTED AT [address] (test mjpy=8804) [place] [address] BASIC METABOLIC [id number] 12:01:00 Test Item Value Reference Range Comments SODIUM (BEAKER) (test 137 meq/L 136-145 ypwk=846) POTASSIUM (BEAKER) (test 4.3 meq/L 3.5-5.1 gzmp=116) CHLORIDE (BEAKER) (test 102 meq/L 98-107 wvoc=274) CO2 (BEAKER) (test 22 meq/L 22-29 ualt=777) BLOOD UREA NITROGEN 35 mg/dL 7-21 (BEAKER) (test owpb=880) CREATININE (BEAKER) (test 4.85 mg/dL 0.57-1.25 kpyf=958) GLUCOSE RANDOM (BEAKER) 169 mg/dL 70-105 (test vymr=540) CALCIUM (BEAKER) (test 8.3 mg/dL 8.4-10.2 libc=562) EGFR (BEAKER) (test 15 mL/min/1.73 sq m ESTIMATED GFR IS NOT jflu=6522) ACCURATE CREATININE CLEARANCE IN PREDICTING GLOMERULAR FILTRATION RATE. ESTIMATED GFR IS NOT APPLICABLE FOR DIALYSIS PATIENTS. POCT-GLUCOSE [id number] 11:59:00 Test Item Value Reference Range Comments POC-GLUCOSE METER (BEAKER) 194 mg/dL 70-110 TESTED AT [address] (test wmeb=8956) [place] [address] CBC W/PLT COUNT & AUTO [id number] 11:39:00 Test Item Value Reference Range Comments WHITE BLOOD CELL COUNT (BEAKER) (test ibup=001) 6.8 K/ L 3.5-10.5 RED BLOOD CELL COUNT (BEAKER) (test oyiw=066) 3.28 M/ L 4.63-6.08 HEMOGLOBIN (BEAKER) (test nbpb=044) 8.9 GM/DL 13.7-17.5 HEMATOCRIT (BEAKER) (test cozu=878) 31.0 % 40.1-51.0 MEAN CORPUSCULAR VOLUME (BEAKER) (test fabm=042) 94.5 fL 79.0-92.2 MEAN CORPUSCULAR HEMOGLOBIN (BEAKER) (test 27.1 pg 25.7-32.2 ywtu=422) MEAN CORPUSCULAR HEMOGLOBIN CONC (BEAKER) (test 28.7 GM/DL 32.3-36.5 pboh=803) RED CELL DISTRIBUTION WIDTH (BEAKER) (test 16.1 % 11.6-14.4 zbly=158) PLATELET COUNT (BEAKER) (test cpog=142) 110 K/CU MM 150-450 MEAN PLATELET VOLUME (BEAKER) (test cgde=383) 12.4 fL 9.4-12.4 NUCLEATED RED BLOOD CELLS (BEAKER) (test 0 /100 WBC 0-0 pnen=624) NEUTROPHILS RELATIVE PERCENT (BEAKER) (test 71 % bnfh=781) LYMPHOCYTES RELATIVE PERCENT (BEAKER) (test 19 % kmpy=538) MONOCYTES RELATIVE PERCENT (BEAKER) (test 9 % snvf=500) EOSINOPHILS RELATIVE PERCENT (BEAKER) (test 1 % flwf=282) BASOPHILS RELATIVE PERCENT (BEAKER) (test 0 % iftr=365) NEUTROPHILS ABSOLUTE COUNT (BEAKER) (test 4.78 K/ L 1.78-5.38 pdbt=206) LYMPHOCYTES ABSOLUTE COUNT (BEAKER) (test 1.26 K/ L 1.32-3.57 mecy=204) MONOCYTES ABSOLUTE COUNT (BEAKER) (test 0.62 K/ L 0.30-0.82 wrbx=552) EOSINOPHILS ABSOLUTE COUNT (BEAKER) (test 0.04 K/ L 0.04-0.54 laoc=615) BASOPHILS ABSOLUTE COUNT (BEAKER) (test 0.03 K/ L 0.01-0.08 mizq=188) IMMATURE GRANULOCYTES-RELATIVE PERCENT (BEAKER) 0 % 0-1 (test nzdj=3672) RAD, CHEST, 1 VIEW, NON [id number] 09:03:00Reason for exam:->S/p CABGShould this be performed at the bedside?->YesFINAL REPORT INDICATION: S/p CABG COMPARISON: October 24, 2017 at 1:04 PM TECHNIQUE: Chest radiograph, single view, portable technique. FINDINGS / IMPRESSION: Mediastinal surgical clips are in keeping with coronary artery bypass surgery. Left internal jugular line has been removed. Other support lines and tubes are unchanged in appearance satisfactory position. No apical cap, pulmonary edema, pneumothorax, or large pleural effusion. In summary, no evidence of postoperative complication. Signed: Bri Lara MDReport Verified Date/Time : 10/25/2017 09:03:01 Reading Location: [facility] B1 [id number] Ortho Consult Reading Room 09: 03 AMPOCT-GLUCOSE [id number] 20:54:00 Test Item Value Reference Range Comments POC-GLUCOSE METER (BEAKER) 183 mg/dL 70-110 TESTED AT [facility] [address] [facility] (test uaqm=7062) [facility] [address] HEPATITIS B SURFACE [id number] 16:24:00 Test Item Value Reference Range Comments HEPATITIS B SURFACE ANTIGEN (2) (BEAKER) (test Nonreactive Nonreactive ehrm=4239) For chronic HD patients, draw HBsAg with each admission then every 30 days.RAD, CHEST, 1 VIEW, NON [id number] 13:31:00Reason for exam:->air leak from chest tubes. placed to gravity drainageShould this be performed at the bedside?- >YesFINAL REPORT TECHNIQUE: Frontal chest radiograph dated 10/24/2017. CLINICAL HISTORY: Air leak from chest tubes COMPARISON STUDY: Chest radiograph performed earlier the same day IMPRESSION:Life support tubes and lines are unchanged in position. There is stable bibasilar atelectasis. No pleural effusion or pneumothorax. Cardiomediastinal silhouette is stable in size. No pulmonaryedema. Midline sternotomy wires are intact and well aligned. No fracture. Signed: Makenna Napiereport Verified Date/Time: 10/24/2017 13:31:11 Reading Location: [facility] Radiology Reading Room HEMOGLOBIN AND [id number] 09:47:00 Test Item Value Reference Range Comments HEMOGLOBIN (BEAKER) (test hwvq=184) 9.9 GM/DL 13.7-17.5 HEMATOCRIT (BEAKER) (test imbj=207) 31.7 % 40.1-51.0 POCT-GLUCOSE [id number] 09:38:00 Test Item Value Reference Range Comments POC-GLUCOSE METER (BEAKER) 200 mg/dL 70-110 TESTED AT [facility] [address] [facility] (test psss=6607) [facility] [address] POCT-GLUCOSE [id number] 04:46:00 Test Item Value Reference Range Comments POC-GLUCOSE METER (BEAKER) 129 mg/dL 70-110 TESTED AT [address] (test tplk=1428) [facility] [address] POCT-GLUCOSE [id number] 04:46:00 Test Item Value Reference Range Comments POC-GLUCOSE METER (BEAKER) 172 mg/dL 70-110 TESTED AT [address] (test uihd=7869) [facility] [address] BASIC METABOLIC [id number] 04:01:00 Test Item Value Reference Range Comments SODIUM (BEAKER) (test 139 meq/L 136-145 brts=006) POTASSIUM (BEAKER) (test 5.6 meq/L 3.5-5.1 omxn=696) CHLORIDE (BEAKER) (test 109 meq/L 98-107 lfaw=911) CO2 (BEAKER) (test 19 meq/L 22-29 yjmt=908) BLOOD UREA NITROGEN 54 mg/dL 7-21 (BEAKER) (test eeha=921) CREATININE (BEAKER) (test 5.66 mg/dL 0.57-1.25 snfs=087) GLUCOSE RANDOM (BEAKER) 164 mg/dL 70-105 (test tzvf=026) CALCIUM (BEAKER) (test 9.2 mg/dL 8.4-10.2 qodk=526) EGFR (BEAKER) (test 12 mL/min/1.73 sq m ESTIMATED GFR IS NOT uemg=4384) ACCURATE CREATININE CLEARANCE IN PREDICTING GLOMERULAR FILTRATION RATE. ESTIMATED GFR IS NOT APPLICABLE FOR DIALYSIS PATIENTS. [id number] 03:58:00 Test Item Value Reference Range Comments PHOSPHORUS (BEAKER) (test prss=576) 5.3 mg/dL 2.3-4.7 [id number] 03:58:00 Test Item Value Reference Range Comments MAGNESIUM (BEAKER) (test yqro=588) 3.2 mg/dL 1.6-2.6 CALCIUM, [id number] 03:56:00 Test Item Value Reference Range Comments CALCIUM IONIZED (BEAKER) (test pmas=519) 1.17 mmol/L 1.12-1.27 PH, BLOOD (BEAKER) (test kuta=9593) 7.29 RAD, CHEST, 1 VIEW, NON [id number] 03:56:00while patient is intubated or has chest tubes.Reason for exam:->chest tubesShould this be performed at the bedside?->YesFINAL REPORT CLINICAL INDICATION: Support lines. Comparison: 10/23/2017 The cardiomediastinal contours are stable. The lung volumes are low after extubation but similar to previous. Central pulmonary vascular prominence and bilateral parenchymal opacities are grossly stable. There is no pneumothorax. Remaining support lines are stable. Signed: Armando Hassan MDReport Verified Date/Time: 10/24/2017 03:56:43 Reading Location : [address] Reading Room LACTIC ACID, ARTERIAL, WHOLE [id number] 03:54:00 Test Item Value Reference Range Comments LACTATE BLOOD ARTERIAL (2) (BEAKER) (test 0.7 mmol/L 0.5-2.2 ufza=4544) Effective 10/18/2015: Units/Reference Range ChangeNew: 0.5-2.2 mmol/L Previous: 5 -20 mg/dLOXYGEN SATURATION, [id number] 03:53:00 Test Item Value Reference Range Comments O2 SATURATION (MEASURED) (BEAKER) (test maqo=4028) 72.5 % CBC W/PLT COUNT & AUTO [id number] 03:44:00 Test Item Value Reference Range Comments WHITE BLOOD CELL COUNT (BEAKER) (test kudk=610) 9.5 K/ L 3.5-10.5 RED BLOOD CELL COUNT (BEAKER) (test jvrw=738) 3.55 M/ L 4.63-6.08 HEMOGLOBIN (BEAKER) (test gpsk=005) 9.7 GM/DL 13.7-17.5 HEMATOCRIT (BEAKER) (test hofk=064) 31.2 % 40.1-51.0 MEAN CORPUSCULAR VOLUME (BEAKER) (test lrxr=408) 87.9 fL 79.0-92.2 MEAN CORPUSCULAR HEMOGLOBIN (BEAKER) (test 27.3 pg 25.7-32.2 gbfn=487) MEAN CORPUSCULAR HEMOGLOBIN CONC (BEAKER) (test 31.1 GM/DL 32.3-36.5 vuch=540) RED CELL DISTRIBUTION WIDTH (BEAKER) (test 16.3 % 11.6-14.4 jvit=569) PLATELET COUNT (BEAKER) (test kxnw=267) 118 K/CU MM 150-450 MEAN PLATELET VOLUME (BEAKER) (test owlh=026) 11.8 fL 9.4-12.4 NUCLEATED RED BLOOD CELLS (BEAKER) (test 0 /100 WBC 0-0 hkji=445) NEUTROPHILS RELATIVE PERCENT (BEAKER) (test 79 % wugc=241) LYMPHOCYTES RELATIVE PERCENT (BEAKER) (test 12 % ubdd=409) MONOCYTES RELATIVE PERCENT (BEAKER) (test 8 % vwob=760) EOSINOPHILS RELATIVE PERCENT (BEAKER) (test 0 % pqyg=999) BASOPHILS RELATIVE PERCENT (BEAKER) (test 0 % sccr=916) NEUTROPHILS ABSOLUTE COUNT (BEAKER) (test 7.55 K/ L 1.78-5.38 vksi=390) LYMPHOCYTES ABSOLUTE COUNT (BEAKER) (test 1.10 K/ L 1.32-3.57 otig=993) MONOCYTES ABSOLUTE COUNT (BEAKER) (test 0.80 K/ L 0.30-0.82 mlkv=571) EOSINOPHILS ABSOLUTE COUNT (BEAKER) (test 0.01 K/ L 0.04-0.54 qjal=554) BASOPHILS ABSOLUTE COUNT (BEAKER) (test 0.03 K/ L 0.01-0.08 eckx=686) IMMATURE GRANULOCYTES-RELATIVE PERCENT (BEAKER) 0 % 0-1 (test estk=0668) POCT-GLUCOSE [id number] 22:48:00 Test Item Value Reference Range Comments POC-GLUCOSE METER (BEAKER) 162 mg/dL 70-110 TESTED AT [address] (test cqbg=2495) [place] [address] POCT-GLUCOSE [id number] 22:48:00 Test Item Value Reference Range Comments POC-GLUCOSE METER (BEAKER) 163 mg/dL 70-110 TESTED AT [address] (test pvos=3458) [place] [address] POCT-GLUCOSE [id number] 22:48:00 Test Item Value Reference Range Comments POC-GLUCOSE METER (BEAKER) 113 mg/dL 70-110 TESTED AT [address] (test ergy=8030) [place] [id number] POCT-GLUCOSE [id number] 22:48:00 Test Item Value Reference Range Comments POC-GLUCOSE METER (BEAKER) 83 mg/dL 70-110 TESTED AT [address] (test klxr=3556) [place] [address] POCT-GLUCOSE [id number] 22:48:00 Test Item Value Reference Range Comments POC-GLUCOSE METER (BEAKER) 114 mg/dL 70-110 TESTED AT [address] (test xgea=2362) [place] [address] BLOOD GAS, [id number] 17:05:00 Test Item Value Reference Range Comments PH ARTERIAL (BEAKER) (test vcwl=007) 7.43 7.35-7.45 PCO2 ARTERIAL (BEAKER) (test ggpa=941) 32 mmHg 35-45 PO2 ARTERIAL (BEAKER) (test ieuj=549) 184 mmHg 80-90 O2 SATURATION ARTERIAL (BEAKER) (test utwa=988) 99.3 % 96.0-97.0 HCO3 ARTERIAL (BEAKER) (test wewy=755) 21 mmol/L 21-29 BASE EXCESS ARTERIAL (BEAKER) (test vekq=065) -3.0 mmol/L -2.0-3.0 PATIENT TEMPERATURE (BEAKER) (test tdsz=5730) 36.7 C FIO2 (BEAKER) (test ikji=5536) 40.0 % POCT-GLUCOSE [id number] 15:59:00 Test Item Value Reference Range Comments POC-GLUCOSE METER (BEAKER) 197 mg/dL 70-110 TESTED AT [address] (test anyp=1318) [place] [address] POCT-GLUCOSE [id number] 15:59:00 Test Item Value Reference Range Comments POC-GLUCOSE METER (BEAKER) 218 mg/dL 70-110 TESTED AT [address] (test jqij=9466) [place] [address] BLOOD GAS, [id number] 14:11:00 Test Item Value Reference Range Comments PH ARTERIAL (BEAKER) (test hurh=520) 7.39 7.35-7.45 PCO2 ARTERIAL (BEAKER) (test oqhe=753) 31 mmHg 35-45 PO2 ARTERIAL (BEAKER) (test uifj=433) 164 mmHg 80-90 O2 SATURATION ARTERIAL (BEAKER) (test nlnq=434) 99.1 % 96.0-97.0 HCO3 ARTERIAL (BEAKER) (test nlvk=041) 18 mmol/L 21-29 BASE EXCESS ARTERIAL (BEAKER) (test gizs=451) -5.7 mmol/L -2.0-3.0 PATIENT TEMPERATURE (BEAKER) (test fvee=3268) 36.7 C FIO2 (BEAKER) (test crzm=2540) 40.0 % GLUCOSE-STAT [id number] 14:11:00 Test Item Value Reference Range Comments GLUCOSE RANDOM (BEAKER) (test ghzt=701) 235 mg/dL 70-110 HEMOGLOBIN [id number] 14:09:00 Test Item Value Reference Range Comments HEMOGLOBIN A1C (BEAKER) (test wimh=591) 7.0 % 4.3-6.1 BASIC METABOLIC [id number] 12:49:00 Test Item Value Reference Range Comments SODIUM (BEAKER) (test 138 meq/L 136-145 slst=526) POTASSIUM (BEAKER) (test 4.1 meq/L 3.5-5.1 xcol=035) CHLORIDE (BEAKER) (test 109 meq/L 98-107 xzhk=742) CO2 (BEAKER) (test 17 meq/L 22-29 dbic=261) BLOOD UREA NITROGEN 46 mg/dL 7-21 (BEAKER) (test fnxq=628) CREATININE (BEAKER) (test 4.91 mg/dL 0.57-1.25 lbjx=942) GLUCOSE RANDOM (BEAKER) 282 mg/dL 70-105 (test rbzo=076) CALCIUM (BEAKER) (test 9.5 mg/dL 8.4-10.2 nhzq=828) EGFR (BEAKER) (test 14 mL/min/1.73 sq m ESTIMATED GFR IS NOT xxfo=9971) ACCURATE CREATININE CLEARANCE IN PREDICTING GLOMERULAR FILTRATION RATE. ESTIMATED GFR IS NOT APPLICABLE FOR DIALYSIS PATIENTS. [id number] 12:41:00 Test Item Value Reference Range Comments POTASSIUM (BEAKER) (test ziio=710) 4.1 meq/L 3.5-5.1 [id number] 12:41:00 Test Item Value Reference Range Comments MAGNESIUM (BEAKER) (test aktl=763) 3.2 mg/dL 1.6-2.6 [id number] 12:41:00 Test Item Value Reference Range Comments PHOSPHORUS (BEAKER) (test cnun=662) 4.1 mg/dL 2.3-4.7 [id number] 12:41:00 Test Item Value Reference Range Comments SODIUM (BEAKER) (test ojnp=610) 138 meq/L 136-145 [id number] 12:41:00 Test Item Value Reference Range Comments GLUCOSE RANDOM (BEAKER) (test rcmr=066) 282 mg/dL 70-105 RAD, CHEST, 1 VIEW, NON [id number] 12:40:00Reason for exam:->s/p cardiac surgeryShould this be performed at the bedside?->YesFINAL REPORT Chest one view AP 10/23/2017 12:40 PM CLINICAL INDICATION: s/p cardiac surgery COMPARISON: 10/21/2017 IMPRESSION: Support hardware is in satisfactory radiographic position status post median sternotomy. Cardiomediastinal contours are stable. There is pulsation artifactversus small volume pneumomediastinum. The central pulmonary vasculature is not engorged. There are streaky foci of atelectasis bilaterally. No pneumothorax is evident. Signed: González Michelle MDReportVerified Date/Time: 10/23/2017 12:40:37 Reading Location: [facility] Radiology Reading Room LACTIC ACID, ARTERIAL, WHOLE [id number] 12:37:00 Test Item Value Reference Range Comments LACTATE BLOOD ARTERIAL (2) (BEAKER) (test 1.3 mmol/L 0.5-2.2 tygx=4804) Effective 10/18/2015: Units/Reference Range ChangeNew: 0.5-2.2 mmol/L Previous: 5 -20 mg/dLPROTHROMBIN [id number] 12:36:00 Test Item Value Reference Range Comments PROTIME (BEAKER) (test dzxt=650) 16.1 seconds 11.7-14.7 INR (BEAKER) (test gkfm=771) 1.3 <=5.9 RECOMMENDED COUMADIN/WARFARIN INR THERAPY RANGESSTANDARD DOSE: 2.0 - 3.0 Includes: PROPHYLAXIS forvenous thrombosis, systemic embolization; TREATMENT for venous thrombosis and/or pulmonary embolus.HIGH RISK: Target INR is 2.5-3.5 for patients with mechanical heart valves.[id number] 12:36:00 Test Item Value Reference Range Comments FIBRINOGEN LEVEL (BEAKER) (test xyfm=535) 206 mg/dl 225-434 [id number] 12:36:00 Test Item Value Reference Range Comments PARTIAL THROMBOPLASTIN TIME (BEAKER) (test 32.0 seconds 22.5-36.0 hslr=002) BLOOD GAS, [id number] 12:25:00 Test Item Value Reference Range Comments PH ARTERIAL (BEAKER) (test bufv=042) 7.33 7.35-7.45 PCO2 ARTERIAL (BEAKER) (test jmdh=256) 37 mmHg 35-45 PO2 ARTERIAL (BEAKER) (test qprb=445) 218 mmHg 80-90 O2 SATURATION ARTERIAL (BEAKER) (test czci=871) 99.4 % 96.0-97.0 HCO3 ARTERIAL (BEAKER) (test baty=334) 19 mmol/L 21-29 BASE EXCESS ARTERIAL (BEAKER) (test sofx=164) -6.1 mmol/L -2.0-3.0 PATIENT TEMPERATURE (BEAKER) (test utdz=1142) 36.5 C FIO2 (BEAKER) (test wudm=4597) 60.0 % GLUCOSE-STAT [id number] 12:25:00 Test Item Value Reference Range Comments GLUCOSE RANDOM (BEAKER) (test ecpy=413) 243 mg/dL 70-110 HGB/HCT (H&H) - STAT [id number] 12:25:00 Test Item Value Reference Range Comments HEMOGLOBIN (BEAKER) (test ogjv=406) 10.9 g/dL 13.0-16.8 HEMATOCRIT (BEAKER) (test copu=932) 32.0 % 40.0-50.0 CALCIUM, [id number] 12:25:00 Test Item Value Reference Range Comments CALCIUM IONIZED (BEAKER) (test etnp=171) 1.28 mmol/L 1.12-1.27 PH, BLOOD (BEAKER) (test gzkc=9709) 7.33 OXYGEN SATURATION, [id number] 12:25:00 Test Item Value Reference Range Comments O2 SATURATION (MEASURED) (BEAKER) (test vbdd=3737) 85.6 % From distal port of IJ central venous catheterCBC W/PLT COUNT & AUTO [id number] 12:24:00 Test Item Value Reference Range Comments WHITE BLOOD CELL COUNT (BEAKER) (test laeu=072) 14.7 K/ L 3.5-10.5 RED BLOOD CELL COUNT (BEAKER) (test kvpl=153) 3.74 M/ L 4.63-6.08 HEMOGLOBIN (BEAKER) (test uiyz=468) 10.3 GM/DL 13.7-17.5 HEMATOCRIT (BEAKER) (test kcvz=730) 33.2 % 40.1-51.0 MEAN CORPUSCULAR VOLUME (BEAKER) (test gxwc=792) 88.8 fL 79.0-92.2 MEAN CORPUSCULAR HEMOGLOBIN (BEAKER) (test 27.5 pg 25.7-32.2 sgrx=667) MEAN CORPUSCULAR HEMOGLOBIN CONC (BEAKER) (test 31.0 GM/DL 32.3-36.5 ecgv=787) RED CELL DISTRIBUTION WIDTH (BEAKER) (test 15.8 % 11.6-14.4 uvnt=042) PLATELET COUNT (BEAKER) (test rqic=579) 138 K/CU MM 150-450 MEAN PLATELET VOLUME (BEAKER) (test hdur=818) 11.5 fL 9.4-12.4 NUCLEATED RED BLOOD CELLS (BEAKER) (test 0 /100 WBC 0-0 gwus=272) NEUTROPHILS RELATIVE PERCENT (BEAKER) (test 63 % kueq=004) LYMPHOCYTES RELATIVE PERCENT (BEAKER) (test 28 % uyrd=678) MONOCYTES RELATIVE PERCENT (BEAKER) (test 6 % qsvz=975) EOSINOPHILS RELATIVE PERCENT (BEAKER) (test 1 % ebad=639) BASOPHILS RELATIVE PERCENT (BEAKER) (test 1 % nfly=615) NEUTROPHILS ABSOLUTE COUNT (BEAKER) (test 9.30 K/ L 1.78-5.38 drgz=708) LYMPHOCYTES ABSOLUTE COUNT (BEAKER) (test 4.14 K/ L 1.32-3.57 yyna=117) MONOCYTES ABSOLUTE COUNT (BEAKER) (test 0.87 K/ L 0.30-0.82 mgyy=363) EOSINOPHILS ABSOLUTE COUNT (BEAKER) (test 0.21 K/ L 0.04-0.54 kffc=460) BASOPHILS ABSOLUTE COUNT (BEAKER) (test 0.07 K/ L 0.01-0.08 rnnz=988) IMMATURE GRANULOCYTES-RELATIVE PERCENT (BEAKER) 1 % 0-1 (test gbke=8436) POTASSIUM-STAT [id number] 12:24:00 Test Item Value Reference Range Comments POTASSIUM (BEAKER) (test ahzf=378) 3.9 meq/L 3.6-5.5 [id number] 11:30:00 Test Item Value Reference Range Comments ACTIVATED CLOTTING TIME 114 sec TESTED AT [address] (BEAKER) (test odty=542) [place] [address] [id number] 11:30:00 Test Item Value Reference Range Comments ACTIVATED CLOTTING TIME 472 sec TESTED AT [address] (BEAKER) (test knnv=373) [place] [address] [id number] 11:30:00 Test Item Value Reference Range Comments ACTIVATED CLOTTING TIME 428 sec TESTED AT [address] (BEAKER) (test wdfo=695) [place] [address] [id number] 11:30:00 Test Item Value Reference Range Comments ACTIVATED CLOTTING TIME 411 sec TESTED AT [place] [address] [facility] (BEAKER[facility] (test wgwl=160) [place] [address] [id number] 11:30:00 Test Item Value Reference Range Comments ACTIVATED CLOTTING TIME 153 sec TESTED AT [address] (BEAKER) (test amse=723) [place] [address] THROMBOELASTOGRAPH ([id number] 11:07:00 Test Item Value Reference Range Comments TEG ACTIVATED CLOTTING TIME (BEAKER) (test 7.2 minutes 4.0-7.0 fqux=4966) TEG FIBRINOGEN ACTIVITY (BEAKER) (test 64.0 degrees 61.0-73.0 juyp=6069) TEG PLT. AGGREGATION (BEAKER) (test kjlh=8613) 39.7 MM 55.0-65.0 TGH ACTIVATED CLOTTING TIME (BEAKER) (test 7.5 minutes 4.0-7.0 ylpi=8639) TGH FIBRINOGEN ACTIVITY (BEAKER) (test 66.0 degrees 61.0-73.0 cibf=4124) TGH PLT. AGGREGATION (BEAKER) (test qvwn=0405) 58.6 MM 55.0-65.0 [id number] 10:42:00 Test Item Value Reference Range Comments FIBRINOGEN LEVEL (BEAKER) (test ouvx=535) 181 mg/dl 225-434 [id number] 10:37:00 Test Item Value Reference Range Comments PARTIAL THROMBOPLASTIN TIME (BEAKER) (test 37.9 seconds 22.5-36.0 cwvh=478) PROTHROMBIN [id number] 10:36:00 Test Item Value Reference Range Comments PROTIME (BEAKER) (test ljkz=838) 18.7 seconds 11.7-14.7 INR (BEAKER) (test cbja=678) 1.6 <=5.9 RECOMMENDED COUMADIN/WARFARIN INR THERAPY RANGESSTANDARD DOSE: 2.0 - 3.0 Includes: PROPHYLAXIS forvenous thrombosis, systemic embolization; TREATMENT for venous thrombosis and/or pulmonary embolus.HIGH RISK: Target INR is 2.5-3.5 for patients with mechanical heart valves.PLATELET [id number] 10:30:00 Test Item Value Reference Range Comments PLATELET COUNT (BEAKER) (test tbrd=656) 80 K/CU MM 150-450 BLOOD GAS, [id number] 10:21:00 Test Item Value Reference Range Comments PH ARTERIAL (BEAKER) (test zhfx=453) 7.35 7.35-7.45 PCO2 ARTERIAL (BEAKER) (test srpu=907) 45 mmHg 35-45 PO2 ARTERIAL (BEAKER) (test kyeu=923) 358 mmHg 80-90 O2 SATURATION ARTERIAL (BEAKER) (test toer=846) 99.8 % 96.0-97.0 HCO3 ARTERIAL (BEAKER) (test xatj=079) 25 mmol/L 21-29 BASE EXCESS ARTERIAL (BEAKER) (test yakb=088) -1.4 mmol/L -2.0-3.0 PATIENT TEMPERATURE (BEAKER) (test tnde=4426) 36.0 C FIO2 (BEAKER) (test hpzr=4703) 100.0 % SODIUM NA-STAT [id number] 10:21:00 Test Item Value Reference Range Comments SODIUM (BEAKER) (test psuw=912) 133 meq/L 135-148 POTASSIUM-STAT [id number] 10:21:00 Test Item Value Reference Range Comments POTASSIUM (BEAKER) (test eagq=674) 5.6 meq/L 3.6-5.5 GLUCOSE-STAT [id number] 10:21:00 Test Item Value Reference Range Comments GLUCOSE RANDOM (BEAKER) (test ttyb=499) 127 mg/dL 70-110 HGB/HCT (H&H) - STAT [id number] 10:21:00 Test Item Value Reference Range Comments HEMOGLOBIN (BEAKER) (test cpcf=822) 8.7 g/dL 13.0-16.8 HEMATOCRIT (BEAKER) (test dzvy=521) 26.0 % 40.0-50.0 CALCIUM, [id number] 10:21:00 Test Item Value Reference Range Comments CALCIUM IONIZED (BEAKER) (test mdgh=955) 1.05 mmol/L 1.12-1.27 PH, BLOOD (BEAKER) (test hbar=1707) 7.34 POTASSIUM-STAT [id number] 09:58:00 Test Item Value Reference Range Comments POTASSIUM (BEAKER) (test cvbj=674) 6.0 meq/L 3.6-5.5 SPECIMEN NOT HEMOLYZED CALCIUM, [id number] 09:57:00 Test Item Value Reference Range Comments CALCIUM IONIZED (BEAKER) (test mxib=286) 0.79 mmol/L 1.12-1.27 PH, BLOOD (BEAKER) (test qjsz=0015) 7.30 BLOOD GAS, [id number] 09:53:00 Test Item Value Reference Range Comments PH ARTERIAL (BEAKER) (test echr=246) 7.32 7.35-7.45 PCO2 ARTERIAL (BEAKER) (test kdwy=880) 40 mmHg 35-45 PO2 ARTERIAL (BEAKER) (test jbmw=609) 259 mmHg 80-90 O2 SATURATION ARTERIAL (BEAKER) (test wxps=847) 99.6 % 96.0-97.0 HCO3 ARTERIAL (BEAKER) (test eeiq=475) 21 mmol/L 21-29 BASE EXCESS ARTERIAL (BEAKER) (test lrdy=600) -5.4 mmol/L -2.0-3.0 PATIENT TEMPERATURE (BEAKER) (test aoxw=8495) 34.9 C FIO2 (BEAKER) (test gmzg=1395) 70.0 % SODIUM NA-STAT [id number] 09:53:00 Test Item Value Reference Range Comments SODIUM (BEAKER) (test wyun=352) 132 meq/L 135-148 GLUCOSE-STAT [id number] 09:53:00 Test Item Value Reference Range Comments GLUCOSE RANDOM (BEAKER) (test nkoa=081) 121 mg/dL 70-110 HGB/HCT (H&H) - STAT [id number] 09:53:00 Test Item Value Reference Range Comments HEMOGLOBIN (BEAKER) (test xpoq=000) 7.1 g/dL 13.0-16.8 HEMATOCRIT (BEAKER) (test isap=730) 21.0 % 40.0-50.0 SODIUM NA-STAT [id number] 09:39:00 Test Item Value Reference Range Comments SODIUM (BEAKER) (test dgtn=990) 136 meq/L 135-148 POTASSIUM-STAT [id number] 09:39:00 Test Item Value Reference Range Comments POTASSIUM (BEAKER) (test sxtj=008) 5.5 meq/L 3.6-5.5 BLOOD GAS, [id number] 09:39:00 Test Item Value Reference Range Comments PH ARTERIAL (BEAKER) (test mvnu=860) 7.39 7.35-7.45 PCO2 ARTERIAL (BEAKER) (test kymf=724) 36 mmHg 35-45 PO2 ARTERIAL (BEAKER) (test gydh=067) 211 mmHg 80-90 O2 SATURATION ARTERIAL (BEAKER) (test ndqd=192) 99.4 % 96.0-97.0 HCO3 ARTERIAL (BEAKER) (test vtgo=502) 24 mmol/L 21-29 BASE EXCESS ARTERIAL (BEAKER) (test bzru=715) -3.3 mmol/L -2.0-3.0 PATIENT TEMPERATURE (BEAKER) (test kwct=9471) 28.0 C FIO2 (BEAKER) (test fqnu=0686) 60.0 % GLUCOSE-STAT [id number] 09:39:00 Test Item Value Reference Range Comments GLUCOSE RANDOM (BEAKER) (test svcs=849) 122 mg/dL 70-110 HGB/HCT (H&H) - STAT [id number] 09:39:00 Test Item Value Reference Range Comments HEMOGLOBIN (BEAKER) (test yeft=651) 6.4 g/dL 13.0-16.8 HEMATOCRIT (BEAKER) (test zzvp=818) 19.0 % 40.0-50.0 SODIUM NA-STAT [id number] 07:56:00 Test Item Value Reference Range Comments SODIUM (BEAKER) (test jarr=373) 140 meq/L 135-148 POTASSIUM-STAT [id number] 07:56:00 Test Item Value Reference Range Comments POTASSIUM (BEAKER) (test udsh=984) 4.2 meq/L 3.6-5.5 BLOOD GAS, [id number] 07:56:00 Test Item Value Reference Range Comments PH ARTERIAL (BEAKER) (test avfa=401) 7.32 7.35-7.45 PCO2 ARTERIAL (BEAKER) (test yssy=434) 52 mmHg 35-45 PO2 ARTERIAL (BEAKER) (test mfbl=168) 200 mmHg 80-90 O2 SATURATION ARTERIAL (BEAKER) (test sycc=008) 99.3 % 96.0-97.0 HCO3 ARTERIAL (BEAKER) (test lwue=082) 26 mmol/L 21-29 BASE EXCESS ARTERIAL (BEAKER) (test ytyr=552) -0.5 mmol/L -2.0-3.0 PATIENT TEMPERATURE (BEAKER) (test jybf=9691) 36.0 C FIO2 (BEAKER) (test rkwh=2022) 100.0 % GLUCOSE-STAT [id number] 07:56:00 Test Item Value Reference Range Comments GLUCOSE RANDOM (BEAKER) (test qyrx=256) 137 mg/dL 70-110 HGB/HCT (H&H) - STAT [id number] 07:56:00 Test Item Value Reference Range Comments HEMOGLOBIN (BEAKER) (test oefl=096) 10.5 g/dL 13.0-16.8 HEMATOCRIT (BEAKER) (test gcqu=452) 31.0 % 40.0-50.0 GLUCOSE-STAT [id number] 06:33:00 Test Item Value Reference Range Comments GLUCOSE RANDOM (BEAKER) (test kige=249) 122 mg/dL 70-110 HGB/HCT (H&H) - STAT [id number] 06:33:00 Test Item Value Reference Range Comments HEMOGLOBIN (BEAKER) (test quhv=115) 11.4 g/dL 13.0-16.8 HEMATOCRIT (BEAKER) (test uukc=249) 34.0 % 40.0-50.0 POTASSIUM-STAT [id number] 06:32:00 Test Item Value Reference Range Comments POTASSIUM (BEAKER) (test lyjg=557) 4.2 meq/L 3.6-5.5 RAD, CHEST, 2 [id number] 11:29:00Reason for Exam:->Pre-OpFINAL REPORT Chest 2 views 10/21/2017 11:28 AM CLINICAL HISTORY: Pre-Op , chest pain COMPARISON: 08/07/2017 FINDINGS: The lungs are clear. Cardiomediastinal contours are within normal limits. The central pulmonary vasculature is not engorged. A right hemodialysis catheter is present.The visualized skeleton is intact. IMPRESSION: No acute radiographic abnormalities. Signed: González Michelle Verified Date/Time: 10/21/2017 11:29:02 Reading Location: [facility] Radiology Reading Room COMPREHENSIVE METABOLIC [id number] 11:23:00 Test Item Value Reference Range Comments TOTAL PROTEIN (BEAKER) 7.1 gm/dL 6.0-8.3 (test lopa=676) ALBUMIN (BEAKER) (test 4.2 g/dL 3.5-5.0 mspu=8760) ALKALINE PHOSPHATASE 44 U/L 40-150 (BEAKER) (test tnrr=546) BILIRUBIN TOTAL (BEAKER) 0.3 mg/dL 0.2-1.2 (test axfj=719) SODIUM (BEAKER) (test 137 meq/L 136-145 raae=985) POTASSIUM (BEAKER) (test 4.9 meq/L 3.5-5.1 bcrg=264) CHLORIDE (BEAKER) (test 102 meq/L 98-107 zzyy=921) CO2 (BEAKER) (test 24 meq/L 22-29 qxpe=457) BLOOD UREA NITROGEN 42 mg/dL 7-21 (BEAKER) (test btbz=682) CREATININE (BEAKER) (test 5.38 mg/dL 0.57-1.25 ipav=396) GLUCOSE RANDOM (BEAKER) 132 mg/dL 70-105 (test jthp=327) CALCIUM (BEAKER) (test 8.5 mg/dL 8.4-10.2 kcrd=593) AST (SGOT) (BEAKER) (test 14 U/L 5-34 buyg=092) ALT (SGPT) (BEAKER) (test 10 U/L 6-55 bhhg=593) EGFR (BEAKER) (test 13 mL/min/1.73 sq m ESTIMATED GFR IS NOT quuc=6076) ACCURATE CREATININE CLEARANCE IN PREDICTING GLOMERULAR FILTRATION RATE. ESTIMATED GFR IS NOT APPLICABLE FOR DIALYSIS PATIENTS. CREATINE KINASE (CK)2017-10-21 11:20:00 Test Item Value Reference Range Comments CREATINE KINASE TOTAL (BEAKER) (test rrvx=894) 108 U/L 29-200 [id number] 11:09:00 Test Item Value Reference Range Comments FIBRINOGEN LEVEL (BEAKER) (test fbhr=311) 337 mg/dl 225-434 [id number] 11:09:00 Test Item Value Reference Range Comments PROTIME (BEAKER) (test caaz=785) 13.7 seconds 11.7-14.7 INR (BEAKER) (test fqom=916) 1.1 <=5.9 PARTIAL THROMBOPLASTIN TIME (BEAKER) (test 33.1 seconds 22.5-36.0 iwvv=957) RECOMMENDED COUMADIN/WARFARIN INR THERAPY RANGESSTANDARD DOSE: 2.0 - 3.0 Includes: PROPHYLAXIS forvenous thrombosis, systemic embolization; TREATMENT for venous thrombosis and/or pulmonary embolus.HIGH RISK: Target INR is 2.5-3.5 for patients with mechanical heart valves.CBC W/PLT COUNT & AUTO [id number] 10:47:00 Test Item Value Reference Range Comments WHITE BLOOD CELL COUNT (BEAKER) (test ntqx=357) 5.4 K/ L 3.5-10.5 RED BLOOD CELL COUNT (BEAKER) (test yvud=381) 3.58 M/ L 4.63-6.08 HEMOGLOBIN (BEAKER) (test nddi=676) 9.9 GM/DL 13.7-17.5 HEMATOCRIT (BEAKER) (test tdko=023) 32.9 % 40.1-51.0 MEAN CORPUSCULAR VOLUME (BEAKER) (test segn=469) 91.9 fL 79.0-92.2 MEAN CORPUSCULAR HEMOGLOBIN (BEAKER) (test 27.7 pg 25.7-32.2 mcpa=089) MEAN CORPUSCULAR HEMOGLOBIN CONC (BEAKER) (test 30.1 GM/DL 32.3-36.5 revj=297) RED CELL DISTRIBUTION WIDTH (BEAKER) (test 13.8 % 11.6-14.4 tnhi=915) PLATELET COUNT (BEAKER) (test wlwc=822) 188 K/CU MM 150-450 MEAN PLATELET VOLUME (BEAKER) (test jeud=393) 11.6 fL 9.4-12.4 NUCLEATED RED BLOOD CELLS (BEAKER) (test 0 /100 WBC 0-0 xboq=191) NEUTROPHILS RELATIVE PERCENT (BEAKER) (test 52 % bduq=487) LYMPHOCYTES RELATIVE PERCENT (BEAKER) (test 35 % uice=633) MONOCYTES RELATIVE PERCENT (BEAKER) (test 7 % lrhz=402) EOSINOPHILS RELATIVE PERCENT (BEAKER) (test 4 % uqkj=885) BASOPHILS RELATIVE PERCENT (BEAKER) (test 1 % daet=563) NEUTROPHILS ABSOLUTE COUNT (BEAKER) (test 2.82 K/ L 1.78-5.38 jwjn=625) LYMPHOCYTES ABSOLUTE COUNT (BEAKER) (test 1.88 K/ L 1.32-3.57 ixgh=768) MONOCYTES ABSOLUTE COUNT (BEAKER) (test 0.40 K/ L 0.30-0.82 ksze=197) EOSINOPHILS ABSOLUTE COUNT (BEAKER) (test 0.22 K/ L 0.04-0.54 lmln=743) BASOPHILS ABSOLUTE COUNT (BEAKER) (test 0.07 K/ L 0.01-0.08 gedt=189) IMMATURE GRANULOCYTES-RELATIVE PERCENT (BEAKER) 0 % 0-1 (test ljbf=0365) BASIC METABOLIC [id number] 12:45:00 Test Item Value Reference Range Comments SODIUM (BEAKER) (test 139 meq/L 136-145 iffu=314) POTASSIUM (BEAKER) (test 5.2 meq/L 3.5-5.1 fyks=863) CHLORIDE (BEAKER) (test 103 meq/L 98-107 klpd=796) CO2 (BEAKER) (test 26 meq/L 22-29 azhq=047) BLOOD UREA NITROGEN 40 mg/dL 7-21 (BEAKER) (test euqi=408) CREATININE (BEAKER) (test 5.47 mg/dL 0.57-1.25 tnob=719) GLUCOSE RANDOM (BEAKER) 115 mg/dL 70-105 (test oxxw=214) CALCIUM (BEAKER) (test 9.3 mg/dL 8.4-10.2 zdar=234) EGFR (BEAKER) (test 13 mL/min/1.73 sq m ESTIMATED GFR IS NOT kcmm=2690) ACCURATE CREATININE CLEARANCE IN PREDICTING GLOMERULAR FILTRATION RATE. ESTIMATED GFR IS NOT APPLICABLE FOR DIALYSIS PATIENTS. [id number] 12:24:00 Test Item Value Reference Range Comments PROTIME (BEAKER) (test erqj=541) 14.0 seconds 11.7-14.7 INR (BEAKER) (test kvrv=076) 1.1 <=5.9 PARTIAL THROMBOPLASTIN TIME (BEAKER) (test 32.4 seconds 22.5-36.0 rklw=573) RECOMMENDED COUMADIN/WARFARIN INR THERAPY RANGESSTANDARD DOSE: 2.0 - 3.0 Includes: PROPHYLAXIS forvenous thrombosis, systemic embolization; TREATMENT for venous thrombosis and/or pulmonary embolus.HIGH RISK: Target INR is 2.5-3.5 for patients with mechanical heart valves.CBC W/PLT COUNT & AUTO [id number] 12:06:00 Test Item Value Reference Range Comments WHITE BLOOD CELL COUNT (BEAKER) (test yikk=663) 6.3 K/ L 3.5-10.5 RED BLOOD CELL COUNT (BEAKER) (test shys=242) 3.73 M/ L 4.63-6.08 HEMOGLOBIN (BEAKER) (test qvaz=420) 10.4 GM/DL 13.7-17.5 HEMATOCRIT (BEAKER) (test powe=582) 34.8 % 40.1-51.0 MEAN CORPUSCULAR VOLUME (BEAKER) (test imvg=756) 93.3 fL 79.0-92.2 MEAN CORPUSCULAR HEMOGLOBIN (BEAKER) (test 27.9 pg 25.7-32.2 fooe=715) MEAN CORPUSCULAR HEMOGLOBIN CONC (BEAKER) (test 29.9 GM/DL 32.3-36.5 tjxj=751) RED CELL DISTRIBUTION WIDTH (BEAKER) (test 14.0 % 11.6-14.4 bkcf=527) PLATELET COUNT (BEAKER) (test cdka=936) 157 K/CU MM 150-450 MEAN PLATELET VOLUME (BEAKER) (test paxw=051) 12.5 fL 9.4-12.4 NUCLEATED RED BLOOD CELLS (BEAKER) (test 0 /100 WBC 0-0 mbrh=113) NEUTROPHILS RELATIVE PERCENT (BEAKER) (test 45 % gwlj=995) LYMPHOCYTES RELATIVE PERCENT (BEAKER) (test 40 % ivxq=664) MONOCYTES RELATIVE PERCENT (BEAKER) (test 10 % sbrf=519) EOSINOPHILS RELATIVE PERCENT (BEAKER) (test 4 % gxch=024) BASOPHILS RELATIVE PERCENT (BEAKER) (test 1 % cpph=042) NEUTROPHILS ABSOLUTE COUNT (BEAKER) (test 2.86 K/ L 1.78-5.38 jrph=380) LYMPHOCYTES ABSOLUTE COUNT (BEAKER) (test 2.51 K/ L 1.32-3.57 fjel=097) MONOCYTES ABSOLUTE COUNT (BEAKER) (test 0.62 K/ L 0.30-0.82 yoas=427) EOSINOPHILS ABSOLUTE COUNT (BEAKER) (test 0.25 K/ L 0.04-0.54 kcjo=882) BASOPHILS ABSOLUTE COUNT (BEAKER) (test 0.06 K/ L 0.01-0.08 nrrx=654) IMMATURE GRANULOCYTES-RELATIVE PERCENT (BEAKER) 0 % 0-1 (test trbl=0449) HEMOGLOBIN [id number] 14:41:00 Test Item Value Reference Range Comments HEMOGLOBIN A1C (BEAKER) (test zckd=987) 7.0 % 4.3-6.1 HIV-1 ANTIGEN WITH HIV-1/2 [id number] 10:23:00 Test Item Value Reference Range Comments HIV-1 ANTIGEN WITH HIV 1\T\2 ANTIBODY (2) Nonreactive Nonreactive (BEAKER) (test puno=4655) FL, CYSTOGRAM, CINE OR VIDEO, [id number] 10:05:00Reason for Exam:->esrd ; eval for renal txpFINAL REPORT VOIDING CYSTOURETHROGRAM , WITH KUB History provided: Evaluation for renal [...] performed: 13 Radiation dose (Ka,r): 33.3 mGy Signed : Kimberly Duarte [employer] Verified Date/Time: 08/07/2017 10:05:30 Reading Location: [address] Radiology Reading Room U/S, ABDOMINAL, [id number] 09:58: 00Reason for Exam:->esrd; eval for renal txpFINAL REPORT COMPLETE ABDOMINAL ULTRASOUND History provided: Renal failure. Evaluation for renal transplantation. Liver measures 12.2 cm in greatest span and shows no focal abnormality. Normal portal vein diameter of 10 mm. Gallbladder is normal in size and wall thickness with no calculi evident. Common duct measures 4 mm. Spleen normal in size measuring 7 cm. Kidneys are smallin size, the right measuring 7.9 x 3.5 x 4.7 cm, and the left measuring 8.5 x 4.7 x 3.8 cm. Kidneys are hyperechogenic and show no hydronephrosis. Pancreas poorly visualized. IVC is patent. Abdominal aorta normal in caliber. No evidence of ascites. No pleural effusions. IMPRESSION: Small kidneys in patient with known renal failure. Otherwise unremarkable study. Signed: Kimberly DuarteSilver Lining Limited Verified Date/Time: 08/07/2017 09:58:47 Reading Location: [address] Radiology Reading Room [id number] 09:20:00 Test Item Value Reference Range Comments PROSTATE SPECIFIC ANTIGEN (BEAKER) (test nczo=340) 6.7 ng/mL 0.0-4.0 RAD, CHEST, 2 [id number] 09:11:00Reason for Exam:->esrd; eval for renal txpFINAL REPORT CHEST PA AND LATERAL History provided: Evaluation for renal transplantation Comparison studies: None Heart size normal. Lungs are mildly hyperexpanded but clear, andvascularity normal. Numerous right healed rib fractures. IMPRESSION: Clear chest. Signed: Kimberly Duarte [employer] Verified Date/Time: 08/07/2017 09:11:05 Reading Location: [address] Radiology Reading Room LIPID [id number] 08:38:00 Test Item Value Reference Range Comments TRIGLYCERIDES (BEAKER) (test ymmr=900) 179 mg/dL CHOLESTEROL (BEAKER) (test pbxm=754) 225 mg/dL HDL CHOLESTEROL (BEAKER) (test ssxf=427) 51 mg/dL LDL CHOLESTEROL CALCULATED (BEAKER) (test 138 mg/dL ijma=762) Triglyceride Reference Range: Low Risk <150 Borderline 150- 199 High Risk 200-499 Very High Risk >=500Cholesterol Reference Range: Low Risk <200 Borderline 200-239 High Risk > 240HDL Cholesterol Reference Range: Low Risk >=60 High Risk <40LDL Cholesterol Reference Range: Optimal <100 Near Optimal 100-129 Borderline 130-159 High 160-189 Very High >=190URINE [id number] 13:31:00 Test Item Value Reference Range Comments CULTURE (BEAKER) (test ccdp=0299) <10,000 col/mL skin markos CYTOMEGALOVIRUS ANTIBODY, [id number] 07:58:00 Test Item Value Reference Range Comments CYTOMEGALOVIRUS IGG ANTIBODY (BEAKER) (test Positive bfme=272) CYTOMEGALOVIRUS ANTIBODY, [id number] 07:58:00 Test Item Value Reference Range Comments CYTOMEGALOVIRUS IGM ANTIBODY (BEAKER) (test Positive lblf=507) EBV-VCA ANTIBODY, [id number] 07:58:00 Test Item Value Reference Range Comments DONTAE-ESPINOSA VCA IGG (BEAKER) (test kydx=100) Positive EBV-VCA ANTIBODY, [id number] 07:58:00 Test Item Value Reference Range Comments DONTAE-ESPINOSA VCA IGM (BEAKER) (test lpbb=485) Negative VARICELLA ZOSTER ANTIBODY, [id number] 07:32:00 Test Item Value Reference Range Comments VARICELLA ZOSTER IGG (AL) (BEAKER) (test navl=7800) 3.5 Al VARICELLA ZOSTER RESULT INTERPRETATIONS: <=0.8 Al Nonreactive: Presumed non-immune to VZV 0.9-1.0 Al Equivocal >=1.1 Al Reactive: Presumed immune to [id number] 05:27:00 Test Item Value Reference Range Comments RPR SCREEN (BEAKER) (test ccdr=863) Nonreactive Nonreactive HEMOGLOBIN [id number] 14:09:00 Test Item Value Reference Range Comments HEMOGLOBIN A1C (BEAKER) (test ekiw=951) 7.0 % 4.3-6.1 COMPREHENSIVE METABOLIC [id number] 11:41:00 Test Item Value Reference Range Comments TOTAL PROTEIN (BEAKER) 7.8 gm/dL 6.0-8.3 (test nenp=163) ALBUMIN (BEAKER) (test 4.4 g/dL 3.5-5.0 wsob=5614) ALKALINE PHOSPHATASE 51 U/L 40-150 (BEAKER) (test yfui=543) BILIRUBIN TOTAL (BEAKER) 0.3 mg/dL 0.2-1.2 (test lrnm=905) SODIUM (BEAKER) (test 139 meq/L 136-145 ewyr=747) POTASSIUM (BEAKER) (test 5.2 meq/L 3.5-5.1 iyhp=818) CHLORIDE (BEAKER) (test 106 meq/L 98-107 ikks=947) CO2 (BEAKER) (test 24 meq/L 22-29 lfqm=216) BLOOD UREA NITROGEN 29 mg/dL 7-21 (BEAKER) (test tpze=144) CREATININE (BEAKER) (test 5.60 mg/dL 0.57-1.25 tvss=465) GLUCOSE RANDOM (BEAKER) 132 mg/dL 70-105 (test yvbs=222) CALCIUM (BEAKER) (test 9.1 mg/dL 8.4-10.2 ohtl=137) AST (SGOT) (BEAKER) (test 9 U/L 5-34 cddy=834) ALT (SGPT) (BEAKER) (test 8 U/L 6-55 enit=977) EGFR (BEAKER) (test 12 mL/min/1.73 sq m ESTIMATED GFR IS NOT uwnm=9456) ACCURATE CREATININE CLEARANCE IN PREDICTING GLOMERULAR FILTRATION RATE. ESTIMATED GFR IS NOT APPLICABLE FOR DIALYSIS PATIENTS. URIC [id number] 11:32:00 Test Item Value Reference Range Comments URIC ACID (BEAKER) (test vunt=553) 3.5 mg/dL 2.6-7.2 [id number] 11:32:00 Test Item Value Reference Range Comments PHOSPHORUS (BEAKER) (test smnw=809) 4.0 mg/dL 2.3-4.7 GAMMA GLUTAMYL TRANSFERASE (GGT)[id number] 11:32:00 Test Item Value Reference Range Comments GAMMA GLUTAMYL TRANSFERASE (BEAKER) (test elhv=644) 27 U/L 9-64 LACTATE DEHYDROGENASE (LDH)2017-05-13 11:32:00 Test Item Value Reference Range Comments LACTATE DEHYDROGENASE (BEAKER) (test debz=479) 229 U/L 125-220 [id number] 10:15:00 Test Item Value Reference Range Comments PROSTATE SPECIFIC ANTIGEN (BEAKER) (test jmfi=709) 5.7 ng/mL 0.0-4.0 HEPATITIS B SURFACE [id number] 10:15:00 Test Item Value Reference Range Comments HEPATITIS B SURFACE ANTIGEN (2) (BEAKER) (test Nonreactive Nonreactive udho=9634) HEPATITIS B SURFACE [id number] 10:15:00 Test Item Value Reference Range Comments HEPATITIS B SURFACE ANTIBODY (BEAKER) (test 195.7 mIU/mL <8.0 kzko=130) HEPATITIS B CORE ANTIBODY, [id number] 10:15:00 Test Item Value Reference Range Comments HEPATITIS B CORE IGM ANTIBODY (BEAKER) (test Nonreactive Nonreactive qenk=081) HEPATITIS C [id number] 10:15:00 Test Item Value Reference Range Comments HEPATITIS C ANTIBODY (BEAKER) (test knzw=594) Nonreactive Nonreactive URINALYSIS W/ [id number] 10:12:00 Test Item Value Reference Range Comments COLOR (BEAKER) (test ihgd=297) Yellow CLARITY (BEAKER) (test uoai=593) Clear SPECIFIC GRAVITY UA (BEAKER) (test srvt=911) 1.015 1.001-1.035 PH UA (BEAKER) (test itlf=961) 5.5 5.0-8.0 PROTEIN UA (BEAKER) (test pxaj=908) 300 mg/dL Negative GLUCOSE UA (BEAKER) (test xmnt=061) Negative Negative KETONES UA (BEAKER) (test rctj=298) Negative Negative BILIRUBIN UA (BEAKER) (test bvnc=365) Negative Negative BLOOD UA (BEAKER) (test rrtu=040) Trace Negative NITRITE UA (BEAKER) (test sqcc=209) Negative Negative LEUKOCYTE ESTERASE UA (BEAKER) (test cedo=240) Negative Negative UROBILINOGEN UA (BEAKER) (test dpcz=711) 0.2 mg/dL 0.2-1.0 RBC UA (BEAKER) (test kbxi=475) 0 /HPF WBC UA (BEAKER) (test ctrm=223) 1 /HPF BACTERIA (BEAKER) (test wwbf=501) Rare MUCUS (BEAKER) (test bjps=5486) Rare SQUAMOUS EPITHELIAL (BEAKER) (test uwsz=457) 1 /HPF HYALINE CASTS (BEAKER) (test smrb=881) 14 /LPF SOURCE(BEAKER) (test yhbx=4319) PTH, [id number] 09:29:00 Test Item Value Reference Range Comments PARATHYROID HORMONE INTACT (BEAKER) (test 189.9 pg/mL 8.5-72.5 fkiy=403) [id number] 09:09:00 Test Item Value Reference Range Comments PROTIME (BEAKER) (test bsyw=325) 13.8 seconds 11.7-14.7 INR (BEAKER) (test srqx=164) 1.1 <=5.9 PARTIAL THROMBOPLASTIN TIME (BEAKER) (test 35.7 seconds 22.5-36.0 fcpw=263) RECOMMENDED COUMADIN/WARFARIN INR THERAPY RANGESSTANDARD DOSE: 2.0 - 3.0 Includes: PROPHYLAXIS forvenous thrombosis, systemic embolization; TREATMENT for venous thrombosis and/or pulmonary embolus.HIGH RISK: Target INR is 2.5-3.5 for patients with mechanical heart valves.CBC W/PLT COUNT & AUTO [id number] 08:58:00 Test Item Value Reference Range Comments WHITE BLOOD CELL COUNT (BEAKER) (test pttl=686) 5.1 K/ L 3.5-10.5 RED BLOOD CELL COUNT (BEAKER) (test rwog=021) 4.49 M/ L 4.63-6.08 HEMOGLOBIN (BEAKER) (test cupu=672) 12.0 GM/DL 13.7-17.5 HEMATOCRIT (BEAKER) (test pbda=086) 41.2 % 40.1-51.0 MEAN CORPUSCULAR VOLUME (BEAKER) (test ijvq=450) 91.8 fL 79.0-92.2 MEAN CORPUSCULAR HEMOGLOBIN (BEAKER) (test 26.7 pg 25.7-32.2 afgv=900) MEAN CORPUSCULAR HEMOGLOBIN CONC (BEAKER) (test 29.1 GM/DL 32.3-36.5 mjcx=216) RED CELL DISTRIBUTION WIDTH (BEAKER) (test 14.3 % 11.6-14.4 xilv=896) PLATELET COUNT (BEAKER) (test wfuh=070) 190 K/CU MM 150-450 MEAN PLATELET VOLUME (BEAKER) (test nqza=377) 11.9 fL 9.4-12.4 NUCLEATED RED BLOOD CELLS (BEAKER) (test 0 /100 WBC 0-0 ekfl=597) NEUTROPHILS RELATIVE PERCENT (BEAKER) (test 49 % yzqi=353) LYMPHOCYTES RELATIVE PERCENT (BEAKER) (test 33 % zzze=447) MONOCYTES RELATIVE PERCENT (BEAKER) (test 10 % vgop=029) EOSINOPHILS RELATIVE PERCENT (BEAKER) (test 5 % lysb=437) BASOPHILS RELATIVE PERCENT (BEAKER) (test 2 % ntiq=524) NEUTROPHILS ABSOLUTE COUNT (BEAKER) (test 2.53 K/ L 1.78-5.38 haev=334) LYMPHOCYTES ABSOLUTE COUNT (BEAKER) (test 1.71 K/ L 1.32-3.57 etmm=523) MONOCYTES ABSOLUTE COUNT (BEAKER) (test 0.51 K/ L 0.30-0.82 jkac=660) EOSINOPHILS ABSOLUTE COUNT (BEAKER) (test 0.27 K/ L 0.04-0.54 mgvb=651) BASOPHILS ABSOLUTE COUNT (BEAKER) (test 0.08 K/ L 0.01-0.08 cvnw=401) IMMATURE GRANULOCYTES-RELATIVE PERCENT (BEAKER) 1 % 0-1 (test cavz=0700)
[2018-05-21] MEDS: NA CHLORIDE 0.9% 1,000 ML ONE ×2 (08:01→08:30)
--- NOTE | 2018-05-21 08:36 | ENDO RPT ---
[address], [address] COLONOSCOPY PROCEDURE REPORT EXAM DATE: 05/21/2018 PATIENT NAME: Russ Corona MR #: [id number] BIRTHDATE: 1950 ATTENDING: Gaston Keita DR STATUS: outpatient GAME PROTECTOR: Karis Mercado RN and Felipe Joshi [facility] INDICATIONS: The patient is a 67 yr old Male here for a colonoscopy due to colon cancer screening PROCEDURE PERFORMED: Screening Colonoscopy and Colonoscopy MEDICATIONS: Per Anesthesia. ESTIMATED BLOOD LOSS: None CONSENT: The patient understands the risks and benefits of the procedure and understands that these risks include, but are not limited to: sedation, allergic reaction, infection, perforation and/or bleeding. Alternative means of evaluation and treatment include, among others: physical exam, x-rays, and/or surgical intervention. The patient elects to proceed with this endoscopic procedure. DESCRIPTION OF PROCEDURE: During intra-op preparation period all mechanical medical equipment was checked for proper function. Hand hygiene and appropriate measures for infection prevention was taken. Procedure, possible complications, alternatives including, but not limited to possibility of bleeding, perforation, tear, infection, sepsis, need for surgery, need for blood transfusion, were explained to the patient. After the risks, benefits and alternatives of the procedure were thoroughly explained, Informed consent was verified, confirmed and timeout was successfully executed by the treatment team. The patient was placed in the left lateral position. A digital rectal exam was performed and revealed internal hemorrhoids. After appropriate level of anesthesia, the scope was passed. The [id number] ([id number]) endoscope was introduced through the anus and advanced to the cecum, which was identified by both the appendix and ileocecal valve. The quality of the prep was poor. The instrument was then slowly withdrawn as the colon was fully examined. Scope withdrawal time was 8 minutes. COLON FINDINGS: Moderate diverticulosis was noted throughout the entire examined colon. No bleeding was noted from the diverticulosis. The colon mucosa was otherwise normal. Moderate sized internal hemorrhoids were found. Retroflexed views revealed no abnormalities. The scope was then completely withdrawn from the patient and the procedure terminated. ADVERSE EVENTS: There were no complications. IMPRESSIONS: 1. Moderate diverticulosis was noted throughout the entire examined colon 2. The colon mucosa was otherwise normal 3. Moderate sized internal hemorrhoids RECOMMENDATIONS: 1. yearly hemoccult starting in 4 years 2. low fiber / diverticular diet 3. hemorrhoidal hygiene RECALL: Return in 5 year(s) for Colonoscopy. Poor prep - 5 year follow up Gaston Keita DR eSigned: Gaston Keita DR 05/21/2018 8:35 AM cc: CPT CODES: ICD9 CODES: PATIENT NAME: Russ Corona MR#: [id number]
== END | disposition home or self-care (01) ==
LOC: OR 06:35
PROVIDERS: ATTEND Surgery
PROC: 0DJD8ZZ Inspection of Lower Intestinal Tract, Via Natural or Artificial Opening Endoscopic (ICD-10-PCS; principal; 2018-05-21 08:00)
DX: Z12.11 Encounter for screening for malignant neoplasm of colon (principal); K57.90 Diverticulosis of intestine, part unspecified, without perforation or abscess without bleeding; K64.8 Other hemorrhoids; I13.2 Hypertensive heart and chronic kidney disease with heart failure and with stage 5 chronic kidney disease, or end stage renal disease; E11.22 Type 2 diabetes mellitus with diabetic chronic kidney disease; N18.6 End stage renal disease; I50.9 Heart failure, unspecified; Z99.2 Dependence on renal dialysis; Z83.3 Family history of diabetes mellitus
CPT/HCPCS: 45378; 82962; J2704; J7030

== ENCOUNTER 2018-05-25 21:42 | Emergency (ER) | payer OTHER ==
--- OUTSIDE RECORDS SUMMARY | 2018-05-25 21:46 | XMS REPORT | Clinical Summary ---
:1950 Author Organization [facility] Address [address] [place] [address] Care Team Providers Name Role Phone Larisa Belle [facility] Primary Care Provider Allergies No [...] in chronic kidney disease, on chronic dialysis ([facility]); MD Chelsy Dialysis patient ([facility]); Secondary hypertension; Hypotension, unspecified hypotension type; Insulin dependent diabetes mellitus ([facility]); Postoperative anemia due to acute blood loss; S/P CABG x 3; Thrombocytopenia ([facility]); ESRD (end stage renal disease) ([facility]); Coronary artery disease involving [place] coronary artery of [place] heart without angina pectoris; Mixed hyperlipidemia 10/21/2017 Hospital Encounter Kevin Anguiano, Anemia in chronic MD kidney disease, on chronic dialysis ([facility]) 10/21/2017 Office Visit Cardiology Kevin Anguiano, coronary artery disease ; Stage 5 chronic kidney disease on chronic dialysis ([facility]); Coronary artery disease involving [place] coronary artery of [place] heart without angina pectoris; ESRD (end stage renal disease) ([facility]); Dialysis patient ([facility]); Insulin dependent diabetes mellitus ([facility]); Hypertension, unspecified type; Gastroesophageal reflux disease, esophagitis presence not specified; Cerebrovascular accident (CVA), unspecified mechanism ([facility]); Anemia in chronic kidney disease, on chronic dialysis ([facility]) 10/21/2017 Orders Only Cardiology Kevin Anguiano, coronary artery disease; Stage 5 chronic kidney disease on chronic dialysis ([facility]) 09/30/2017 Surgery Ramses Holland MD L CATH & CORONARY ANGIOS 09/30/2017 Hospital Encounter Ramses Holland MD Pre-transplant evaluation for ESRD (end stage renal disease) 08/07/2017 Hospital Encounter Heather, ESRD (end stage renal disease) ( [facility]); Letty Johnson MD Pre-transplant evaluation for chronic kidney disease 08/07/2017 Hospital Encounter Heather, ESRD (end stage renal disease) ( [facility]); Letty Johnson MD Pre-transplant evaluation for chronic kidney disease 08/07/2017 Hospital Encounter Radiology Heather, ESRD (end stage renal disease) ([facility]); Letty Johnson MD Pre-transplant evaluation for chronic kidney disease 08/07/2017 Orders Only Lab Heather, ESRD (end stage renal disease) ([facility]); Letty Johnson MD Pre-transplant evaluation for chronic kidney disease 08/07/2017 Orders Only Transplant Anmol Couch, ESRD (end stage renal Hepatology RN disease) ([facility]) (Primary Dx) 08/07/2017 Orders Only Transplant Larisa Deutsch RN ESRD (end stage renal disease) (H[facility]) (Primary Dx); Pre-transplant evaluation for chronic kidney disease 08/07/2017 Outside Orders Letty Romero MD 07/04/2017 Telephone Transplant Alcira Rivera Appointment 06/19/2017 Documentation Transplant Alcira Rivera after 05/24/2017 Family History Medical History Relation Name Comments [...] 7:30 Coronary artery AM CDT disease of [place] artery of [place] heart with stable angina pectoris ([facility]) BYPASS,AORTO CORONARY 10/23/2017 7:30 Coronary artery COURTNEY/SVG AM CDT disease of [place] artery of [place] heart with stable angina pectoris ([facility]) POTASSIUM-STAT LAB Routine 10/23/2017 6:26 Results for [...] results kidney disease on section. chronic dialysis ([facility]) ECG 12-LEAD Routine 10/21/2017 10:49 Results for [...] artery POSS PPI PM CDT disease involving [place] heart without angina pectoris, unspecified vessel or lesion type Case Notes POP6 POSS PCI L CATH & CORONARY ANGIOS 09/30/2017 3:29 PM CDT Coronary artery disease involving [place] heart without angina pectoris, unspecified vessel or [...] SERVICE 08/08/2017 5:44 PM REPORT - SCAN CREW CALLER AB SPECIFICITY CLASS Routine 08/07/2017 11:28 AM ESRD (end stage Results for this I CREW CALLER renal disease) ([facility]) procedure are in the results section. FLOW PRA CLASS II Routine 08/07/2017 11:28 AM ESRD (end stage Results for this WITH REFLEX TO CREW CALLER renal disease) ([facility]) procedure are in ANTIBODY SPECIFICITY the results section. FLOW PRA CLASS I WITH Routine 08/07/2017 11:28 AM ESRD (end stage Results for this REFLEX TO ANTIBODY CREW CALLER renal disease) ([facility]) procedure are in SPECIFICITY the results section. HLA TYPING CII Routine 08/07/2017 11:28 AM ESRD (end stage Results for this CREW CALLER renal disease) ([facility]) procedure are in the results section. HLA TYPING CI Routine 08/07/2017 11:28 AM ESRD (end stage Results for this CREW CALLER renal disease) ([facility]) procedure are in the results section. HIV-1 ANTIGEN WITH Routine 08/07/2017 10:22 AM ESRD (end stage Results for this HIV-1/2 ANTIBODY CREW CALLER renal disease) ([facility]) procedure are in Pre-transplant the results evaluation for section. chronic kidney disease Uncontrolled other specified diabetes mellitus with stage 4 chronic kidney disease, unspecified terminal supervisor insulin use status ([facility]) Essential hypertension, malignant FL CYSTOGRAM CINE OR Routine 08/07/2017 9:48 AM ESRD (end stage Results for this VIDEO VOIDING CREW CALLER renal disease) ([facility]) procedure are in Pre-transplant the results evaluation for section. chronic kidney disease XR CHEST 2 VIEWS Routine 08/07/2017 9:10 AM ESRD (end stage Results for this CREW CALLER renal disease) ([facility]) procedure are in Pre-transplant the results evaluation for section. chronic kidney disease US ABDOMEN COMPLETE Routine 08/07/2017 8:52 AM ESRD (end stage Results for this CREW CALLER renal disease) ([facility]) procedure are in Pre-transplant the results evaluation for section. chronic kidney disease BLOOD TYPING, Routine 08/07/2017 7:18 AM ESRD (end stage Results for this AUTOMATED CREW CALLER renal disease) ([facility]) procedure are in Pre-transplant the results evaluation for section. chronic kidney disease PSA Routine 08/07/2017 7:18 AM ESRD (end stage Results for this CREW CALLER renal disease) ([facility]) procedure are in Pre-transplant the results evaluation for section. chronic kidney disease HEMOGLOBIN A1C Routine 08/07/2017 7:18 AM ESRD (end stage Results for this CREW CALLER renal disease) ([facility]) procedure are in Pre-transplant the results evaluation for section. chronic kidney disease LIPID PANEL Routine 08/07/2017 7:18 AM ESRD (end stage Results for this CREW CALLER renal disease) ([facility]) procedure are in Pre-transplant the results evaluation for section. chronic kidney disease after 05/24/2017 Results RHYTHM STRIP - SCAN (04/10/2018 6:10 [...] is included. ABO/RH AUTOMATED (BEAKER) O POSITIVE [facility] Ab Scrn NEGATIVE [facility] Specimen Blood Performing Organization Address [facility] Phone Number [address] [address] Direct [facility] (PERLA)/Direct Carla (01/06/2018 7:35 AM CDT)Only the most recent of4 resultswithin the time period is included. Direct [facility]-IGG NEGATIVE [facility] Direct [facility]-C3B, C3D NEGATVIE [facility] Specimen Blood Performing Organization Address City/[facility]/Zipcode Phone Number [address] [address] PERMANENT LAB REPORT - SCAN (12/18/2017 11:40 AM CDT) Narrative Performed At CBC with platelet count + automated diff (11/18/2017 12:23 PM CDT)Only the most recent of10 resultswithin the time period is included. WBC 5.5 3.5 - 10.5 K/L [facility] RBC 3.95 (L) 4.63 - 6.08 M/L [facility] Hemoglobin 10.7 (L) 13.7 - 17.5 GM/DL [facility] Hematocrit 36.7 (L) 40.1 - 51.0 % [facility] MCV 92.9 (H) 79.0 - 92.[address] [facility] MCH 27.1 25.7 - 32.[address] [facility] MCHC 29.2 (L) 32.3 - 36.5 GM/DL [facility] RDW 15.4 (H) 11.6 - 14.4 % [facility] Platelets 243 150 - 450 K/CU MM [facility] MPV 11.7 9.4 - 12.[address] [facility] nRBC 0 0 - 0 /[address] [facility] % Neutros 49 % [facility] % Lymphs 34 % [facility] % Monos 9 % [facility] % Eos 7 % [facility] % Baso 1 % [facility] # Neutros 2.67 1.78 - 5.38 K/L [facility] # Lymphs 1.84 1.32 - 3.57 K/L [facility] # Monos 0.51 0.30 - 0.82 K/L [facility] # Eos 0.36 0.04 - 0.54 K/L [facility] # Baso 0.06 0.01 - 0.08 K/L [facility] Immature Granulocytes-Relative 0 0 - 1 % [facility] Specimen Blood Performing Organization Address [facility]ode Phone Number [address] [phone] CENTER aPTT (11/18/2017 12:23 PM CDT)Only the most recent of4 resultswithin the time period is included. PTT 35.3 22.5 - 36.[address] [facility] Specimen Blood Performing Organization Address [facility] Centercotx Phone Number [address] [address] CENTER Prothrombin time/INR (11/18/2017 12:23 PM CDT)Only the most recent of4 resultswithin the time period is included. Protime 13.7 11.7 - 14.[address] [facility] INR 1.1 <=5.9 [facility] Specimen Blood Narrative Performed At [facility] RECOMMENDED COUMADIN/WARFARIN INR THERAPY RANGES STANDARD DOSE: 2.0 - 3.0 Includes: PROPHYLAXIS for venous thrombosis, systemic embolization; TREATMENT for venous thrombosis and/or pulmonary embolus. HIGH RISK: Target INR is 2.5-3.5 for patients with mechanical heart valves. Performing Organization Address [facility] Phone Number [address] [address] C[place] Fibrinogen (11/18/2017 12:23 PM CDT)Only the most recent of4 resultswithin the time period is included. Fibrinogen 467 (H) 225 - 434 mg/dl [facility] Specimen Blood Performing Organization Address [facility] Phone Number [address] [address] CENTER Alkaline phosphatase (11/18/2017 12:23 PM CDT)Only the most recent of2 resultswithin the time period is included. Alkaline Phosphatase 102 40 - 150 U/L [facility] Specimen Blood Performing Organization Address City/[facility]/Zipcode Phone Number [address] [address] [phone] CENTER Lactate dehydrogenase (LDH) (11/18/2017 12:23 PM CDT)Only the most recent of2 resultswithin the time period is included. LDH 235 (H) 125 - 220 U/L [facility] Specimen Blood Performing Organization Address City/[facility]/Zipcode Phone Number [address] [address] [phone] [place] Creatine Kinase (CK) (11/18/2017 12:23 PM CDT)Only the most recent of3 resultswithin the time period is included. Total CK 56 29 - 200 U/L [facility] Specimen Blood Performing Organization Address City/[facility] Phone Number [address] [address] [place] Comprehensive metabolic panel (11/18/2017 12:23 PM CDT)Only the most recent of2 resultswithin the time period is included. Protein, Total 7.4 6.0 - 8.3 gm/dL [facility] Albumin 4.3 3.5 - 5.0 g/dL [facility] Alkaline Phosphatase 102 40 - 150 U/L [facility] Total Bilirubin 0.3 0.2 - 1.2 mg/dL [facility] Sodium 139 136 - 145 meq/L [facility] Potassium 4.0 3.5 - 5.1 meq/L [facility] Chloride 104 98 - 107 meq/L [facility] CO2 25 22 - 29 meq/L [facility] BUN 23 (H) 7 - 21 mg/dL [facility] Creatinine 4.88 (H) 0.57 - 1.25 mg/dL [facility] Glucose 136 (H) 70 - 105 mg/dL [facility] Calcium 9.6 8.4 - 10.2 mg/dL [facility] AST 15 5 - 34 U/L [facility] ALT 15 6 - 55 U/L [facility] EGFR 15Comment: ESTIMATED GFR mL/min/1.73 sq m [facility] IS NOT ACCURATE [facility] CREATININE CLEARANCE IN PREDICTING GLOMERULAR FILTRATION RATE. ESTIMATED GFR IS NOT APPLICABLE FOR DIALYSIS PATIENTS. Specimen Blood Performing Organization Address City/[facility]ercode Phone Number [address] [address] [place] VASCULAR DIAGRAM -SCAN (10/30/2017 3:30 PM CDT)Only the most recent of4 resultswithin the time period is included. Narrative Performed At POC-Glucose meter (10/29/2017 12:43 PM CDT)Only the most recent of28 resultswithin the time period is included. POC-Glucose Meter 203 (H)Comment: TESTED AT 70 - 110 mg/dL [address] [place] [address] Specimen Blood Performing Organization Address [facility]erc[facility] Phone Number [address] [address] CENTER Phosphorus (10/29/2017 7:39 AM CDT)Only the most recent of3 resultswithin the time period is included. Phosphorus 2.1 (L) 2.3 - 4.7 mg/dL [facility] Specimen Blood - Central Venous Line Performing Organization Address [facility] Phone Number [address] [address] [place] Basic metabolic panel (10/29/2017 7:39 AM CDT)Only the most recent of9 resultswithin the time period is included. Sodium 139 136 - 145 meq/L [facility] Potassium 3.7 3.5 - 5.1 meq/L [facility] Chloride 105 98 - 107 meq/L [facility] CO2 26 22 - 29 meq/L [facility] BUN 31 (H) 7 - 21 mg/dL [facility] Creatinine 3.68 (H) 0.57 - 1.25 mg/dL [facility] Glucose 91 70 - 105 mg/dL [facility] Calcium 8.5 8.4 - 10.2 mg/dL [facility] EGFR 20Comment: ESTIMATED GFR IS mL/min/1.73 sq m [facility] NOT ACCURATE CREATININE [facility] CENTER CLEARANCE IN PREDICTING GLOMERULAR FILTRATION RATE. ESTIMATED GFR IS NOT APPLICABLE FOR DIALYSIS PATIENTS. Specimen Blood - Central Venous Line Performing Organization Address City/State/Zipcode Phone Number [facility] [address] [place] [address] CENTER Magnesium (10/29/2017 5:32 AM CDT)Only the most recent of5 resultswithin the time period is included. Magnesium 2.4 1.6 - 2.6 mg/dL [facility] Specimen Blood Performing Organization Address City/[facility] Phone Number [facility] [address] [place] [address] CENTER HEMODIALYSIS INPATIENT (10/28/2017 12:46 AM CDT) Narrative Performed At Shannan Bernabe RN 10/28/2017 12:46 AM 10/27/2017 2015: Received patient alert and awake, follows commands. HD plan discussed with patient and his . 10/27/20172030: Arterial port has resistance and venous port slightly sluggish. Blood flow decreased to 275 ml/min, venous pressure at 300-320. Dr. Baca was informed. 10/27/2017 2355: HD terminated 30 minutes early, system clotting. [...] included. Potassium 3.6 3.5 - 5.1 meq/L [facility] Specimen Blood - Central Venous Line Performing Organization Address City/[facility] Phone Number [address] [address] CENTER Bilirubin, total and direct (10/27/2017 1:36 PM CDT) Total Bilirubin 0.2 0.2 - 1.2 mg/dL [facility] Bilirubin, Direct 0.1 0.1 - 0.5 mg/dL [facility] Specimen Blood Performing Organization Address City/[facility]/Zipcode Phone Number [address] [address] CENTER ALT (SGPT) (10/27/2017 1:36 PM CDT) ALT 90 (H) 6 - 55 U/L [facility] Specimen Blood Performing Organization Address City/[facility] Phone Number [address] [address] [place] AST (SGOT) (10/27/2017 1:36 PM CDT) AST 68 (H) 5 - 34 U/L [facility] Specimen Blood Performing Organization Address City/[facility] Phone Number [address] [address] [phone] [place] Protein, total (10/27/2017 1:36 PM CDT) Protein, Total 6.3 6.0 - 8.3 gm/dL [facility] Specimen Blood Performing Organization Address [facility] Phone Number [address] [address] [place] Albumin (10/27/2017 1:36 PM CDT) Albumin 3.4 (L) 3.5 - 5.0 g/dL [facility] Specimen Blood Performing Organization Address [facility] Phone Number [address] [address] [phone] [place] XR chest 1 view portable / bedside (10/26/2017 4:08 PM CDT)Only the most recent of5 resultswithin the time period is included. Narrative Performed At FINAL REPORT [facility] CLINICAL INDICATION: Postop Comparison: 10/25/2017 The cardiomediastinal contours are stable. Central pulmonary vascular prominence and bilateral parenchymal opacities are similar within variation of acquisition technique. Blunting of the costophrenic sulci may reflect trace effusions or pleural thickening. There is no pneumothorax. A tunneled right IJ dialysis catheter remains in place. Signed: Eliu Coker MD Report Verified Date/Time:10/26/2017 17:08:24 Reading Location: [address] Reading Room Procedure Note Interface, External [...] Report Verified Date/Time: 10/26/2017 17:08:24 Reading Location: [address] Reading Room Performing Organization Address [facility] Phone Number GE RIS Prepare RBC (10/24/2017 11:54 PM CDT) CROSSMATCH COMPATIBLE SAFETRACE TX Unit ABO O Neg SAFETRACE TX UNIT NUMBER [id number] SAFETRACE TX Status TRANSFUSED SAFETRACE TX Blood Bank Product RED BLOOD CELLS SAFETRACE TX PRODUCT CODE [id number] SAFETRACE TX CROSSMATCH COMPATIBLE SAFETRACE TX Unit ABO O Pos SAFETRACE TX UNIT NUMBER [id number] SAFETRACE TX Status TRANSFUSED SAFETRACE TX Blood Bank Product RED BLOOD CELLS SAFETRACE TX PRODUCT CODE [id number] SAFETRACE TX Performing Organization Address [facility] Phone Number SAFETRACE TX HEMODIALYSIS INPATIENT (10/24/2017 [...] CDT) hepatitis B Surface Ag NON-REACTIVE Nonreactive [facility] Specimen Blood - Central Venous Line Narrative Performed At For chronic HD patients, draw HBsAg with each [facility] admission then every 30 days. Performing Organization Address City/[facility] Phone Number [address] [address] [phone] CENTER Hemoglobin and hematocrit (10/24/2017 9:33 AM CDT) Hemoglobin 9.9 (L) 13.7 - 17.5 GM/DL [facility] Hematocrit 31.7 (L) 40.1 - 51.0 % [facility] Specimen Blood Performing Organization Address [facility] Phone Number [address] [address] CENTER Oxygen saturation, measured (10/24/2017 3:26 AM CDT)Only the most recent of2 resultswithin the time period is included. O2 Saturation (Measured) 72.5 % [facility] Specimen Blood Performing Organization Address City/[facility] Phone Number [address] [address] [phone] CENTER Calcium, Ionized (10/24/2017 3:26 AM CDT)Only the most recent of4 resultswithin the time period is included. Calcium, Ion 1.17 1.12 - 1.27 mmol/L [facility] pH, Blood 7.29 [facility] Specimen Blood Performing Organization Address City/[facility] Phone Number [facility] [address] [address] [place] Lactic acid, arterial, whole blood (10/24/2017 3:26 AM CDT)Only the most recent of2 resultswithin the time period is included. Lactate, Art 0.7 0.5 - 2.2 mmol/L [facility] Specimen Blood, Arterial Narrative Performed At [facility] Effective 10/18/2015: Units/Reference Range Change New: 0.5-2.2 mmol/LPrevious: 5-20 mg/dL Performing Organization Address [facility] Phone Number [address] [address] [place] Blood gas, arterial (10/23/2017 4:57 PM CDT)Only the most recent of7 resultswithin the time period is included. pH, Arterial 7.43 7.35 - 7.45 [facility] pCO2, Arterial 32 (L) 35 - [address] [facility] pO2, Arterial 184 (H) 80 - [address] [facility] O2 Sat, Arterial 99.3 (H) 96.0 - 97.0 % [facility] HCO3, Arterial 21 21 - 29 mmol/L [facility] Base Excess, Arterial -3.0 (L) -2.0 - 3.0 mmol/L [facility] Patient Temperature 36.[address] [facility] FIO2 40.0 % [facility] Specimen Blood, Arterial - Line, Arterial Performing Organization Address [facility] Phone Number [address] [address] [place] Glucose-Stat Lab (10/23/2017 2:04 PM CDT)Only the most recent of7 resultswithin the time period is included. Glucose 235 (H) 70 - 110 mg/dL [facility] Specimen Blood, Arterial - Line, Arterial Performing Organization Address [facility]erc[facility] Phone Number [facility] [address] [place] [address] CENTER EKG 12 lead (10/23/2017 1:09 PM CDT)Only the most recent of3 resultswithin the time period is included. Narrative Performed At Ventricular Rate 76 BPM GE MUSE Atrial Rate 76 BPM P-R Interval 146 ms QRS Duration 146 ms Q-T Interval 446 ms QTC Calculation(Bazett) 501 ms P [place] 70 degrees R [place] 82 degrees T [place] 62 degrees Sinus rhythm with occasional Premature ventricular complexes Right bundle branch block Abnormal ECG When compared with ECG of 21-OCT-2017 10:49, Premature ventricular complexes are now Present Right bundle branch block is now Present Confirmed by MD LEAL JOSEPH P ([id number]) on 10/24/2017 4:29:52 PM Procedure Note Interface, External Ris In - 10/24/2017 4:29 PM CDT Ventricular Rate 76 BPM Atrial Rate 76 BPM P-R Interval 146 ms QRS Duration 146 ms Q-T Interval 446 ms QTC Calculation(Bazett) 501 ms P [place] 70 degrees R [place] 82 degrees T [place] 62 degrees Sinus rhythm with occasional Premature ventricular complexes Right bundle branch block Abnormal ECG When compared with ECG of 21-OCT-2017 10:49, Premature ventricular complexes are now Present Right bundle branch block is now Present Confirmed by MD LEAL JOSEPH P ([id number]) on 10/24/2017 4:29:52 PM Performing Organization Address [facility] Phone Number GE MUSE Prepare plasma (10/23/2017 12:21 PM CDT) Unit ABO O Pos SAFETRACE TX UNIT NUMBER [id number] SAFETRACE TX Status RETURNED FROM ISSUE SAFETRACE TX Blood Bank Product FFP SAFETRACE [place] PRODUCT CODE [id number] SAFETRACE TX Performing Organization Address [facility] Phone Number SAFETRACE [place] Potassium-Stat Lab (10/23/2017 12:11 PM CDT)Only the most recent of6 resultswithin the time period is included. Potassium 3.9 3.6 - 5.5 meq/L [facility] Specimen Blood, Arterial Performing Organization Address [facility] Phone Number [address] [address] [phone] CENTER HGB/HCT (H&H)-Stat Lab (10/23/2017 12:11 PM CDT)Only the most recent of6 resultswithin the time period is included. Hemoglobin 10.9 (L) 13.0 - 16.8 g/dL [facility] Hematocrit 32.0 (L) 40.0 - 50.0 % [facility] Specimen Blood, Arterial Performing Organization Address [facility] Phone Number [address] [address] [phone] [place] Sodium (10/23/2017 12:11 PM CDT) Sodium 138 136 - 145 meq/L [facility] Specimen Blood Performing Organization Address [facility] Phone Number [address] [address] [phone] [place] Glucose (10/23/2017 12:11 PM CDT) Glucose 282 (H) 70 - 105 mg/dL [facility] Specimen Blood Performing Organization Address [facility] Phone Number [address] [address] [place] Hemoglobin A1c (Obtain on all cardiothoracic surgery cases) (10/23/2017 12:10 PM CDT)Only the most recent of2 resultswithin the time period is included. Hemoglobin A1C 7.0 (H) 4.3 - 6.1 % [facility] Specimen Blood Performing Organization Address [facility] Phone Number [address] [address] CENTER POC ACTIVATED CLOTTING TIME (10/23/2017 10:16 AM CDT)Only the most recent of5 resultswithin the time period is included. Activated Clotting Time 114Comment: TESTED AT sec [facility] [address] [place] [address] Specimen Blood Performing Organization Address [facility] Phone Number [address] [address] [phone] [place] Sodium Na-Stat Lab (10/23/2017 10:10 AM CDT)Only the most recent of4 resultswithin the time period is included. Sodium 133 (L) 135 - 148 meq/L [facility] Specimen Blood, Arterial Performing Organization Address [facility] Phone Number [address] [address] [place] Thromboelastograph (TEG) (10/23/2017 10:10 AM CDT) TEG Activated Clotting Time 7.2 (H) 4.0 - 7.[address] [facility] TEG Fibrinogen Activity 64.0 61.0 - 73.[address] [facility] TEG Platelet Aggregation 39.7 (L) 55.0 - 65.[address] [facility] TEG-H Activated Clotting Time 7.5 (H) 4.0 - 7.[address] [facility] TEG-H Fibrinogen Activity 66.0 61.0 - 73.[address] [facility] TEG-H Platelet Aggregation 58.6 55.0 - 65.[address] [facility] Specimen Blood Performing Organization Address [facility] Phone Number [address] [address] [place] Platelet count (10/23/2017 10:10 AM CDT) Platelets 80 (L) 150 - 450 K/CU MM [facility] Specimen Blood Performing Organization Address [facility]/Zipcode Phone Number [address] [address] [place] XR chest 2 views (10/21/2017 11:17 AM CDT)Only the most recent of2 resultswithin the time period is included. Narrative Performed At FINAL REPORT [facility] Chest 2 views 10/21/2017 11:28 AM CLINICAL HISTORY: Pre-Op, chest pain COMPARISON: 08/07/2017 FINDINGS: The lungs are clear. Cardiomediastinal contours are within normal limits. The central pulmonary vasculature is not engorged. A right hemodialysis catheter is present. The visualized skeleton is intact. IMPRESSION: No acute radiographic abnormalities. Signed: González Nunez MD Report Verified Date/Time:10/21/2017 11:29:02 Reading Location: [facility] Radiology Reading Room Procedure Note Interface, [...] Report Verified Date/Time: 10/21/2017 11:29:02 Reading Location: [facility] Radiology Reading Room Performing Organization Address City/State/Zipcode Phone Number [facility] PT/aPTT (10/21/2017 10:34 AM CDT)Only the most recent of2 resultswithin the time period is included. Protime 13.7 11.7 - 14.[address] [facility] INR 1.1 <=5.9 [facility] PTT 33.1 22.5 - 36.[address] [facility] Specimen Blood Narrative Performed At [facility] RECOMMENDED COUMADIN/WARFARIN INR THERAPY RANGES STANDARD DOSE: 2.0 - 3.0 Includes: PROPHYLAXIS for venous thrombosis, systemic embolization; TREATMENT for venous thrombosis and/or pulmonary embolus. HIGH RISK: Target INR is 2.5-3.5 for patients with mechanical heart valves. Performing Organization Address City/State/Zipcode Phone Number [facility] [address] [place] [address] [phone] CENTER CARDIAC CATH REPORT - SCAN (10/16/2017 7:12 PM CDT) Narrative Performed At CARDIAC CATH REPORT - SCAN (10/01/2017 8:01 PM CDT) Narrative Performed At HLA TYPING CII (08/07/2017 11:28 AM CREW CALLER) HLA-DR AG1 11 [facility] HLA TESTING HLA-DR AG2 13 [facility] HLA TESTING HLA-DR AG3-1 52 [facility] HLA TESTING HLA-DR AG3-2 52 [facility] HLA TESTING HLA-DR AG4-1 [facility] HLA TESTING HLA-DR AG4-2 [facility] HLA TESTING HLA-DR AG5-1 [facility] HLA TESTING HLA-DR AG5-2 [facility] HLA TESTING HLA-DQA1 AG 1-1 01 [facility] HLA TESTING HLA-DQA1 AG 1-2 01 [facility] HLA TESTING HLA-DQB1 AG 1-1 5 [facility] HLA TESTING HLA-DQB1 AG 1-2 6 [facility] HLA TESTING HLA-DPA1 AG 1-1 02 [facility] HLA TESTING HLA-DPA1 AG 1-2 04 [facility] HLA TESTING HLA-DPB1 AG 1-1 01:01 [facility] HLA TESTING HLA-DPB1 AG 1-2 105:01 [facility] HLA TESTING HLA-AG Notes [facility] HLA TESTING HLA-AG Report Comments [facility] HLA TESTING Specimen Blood Performing Organization Address City/State/Zipcode Phone Number [facility] HLA TESTING ONE [facility] [place], [place]: [place] [address] [id number], CLIA#[id number] CAP#[id number] UNOS#[id number] [facility] HLA TESTING ONE [facility] [place], [place]: [id number] [place] [address] HLA TYPING CI (08/07/2017 11:28 AM CREW CALLER) HLA-A AG1 23 [facility] HLA TESTING HLA-A AG2 33 [facility] HLA TESTING HLA-B AG1 18 [facility] HLA TESTING HLA-B AG2 50 [facility] HLA TESTING HLA-C AG1 8 [facility] HLA TESTING HLA-C AG2 4 [facility] HLA TESTING HLA-B BW1 6 [facility] HLA TESTING HLA-B BW2 6 [facility] HLA TESTING HLA-AG Notes [facility] HLA TESTING HLA-AG Report Comments [facility] HLA TESTING Specimen Blood Performing Organization Address [facility] Phone Number [facility] HLA TESTING ONE [facility] [place], [place]: [place] [address] [id number], CLIA#[id number] CAP#[id number] UNOS#[id number] [facility] HLA TESTING [facility] [place], [place]: [id number] [place] [address] FLOW PRA CLASS II WITH REFLEX TO ANTIBODY SPECIFICITY (08/07/2017 11:28 AM CREW CALLER) Flow Class II Percent Positive 0 [facility] HLA TESTING Flow Class Report Comments [facility] HLA TEST[facility] Specimen Blood Performing Organization Address [facility] Phone Number [facility] HLA TESTING ONE [facility] [place], [place]: [place] [address] [id number], CLIA#[id number] CAP#[id number] UNOS#[id number] [facility] HLA TESTING [facility] [place], [place]: [id number] [place] [address] FLOW PRA CLASS I WITH REFLEX TO ANTIBODY SPECIFICITY (08/07/2017 11:28 AM CREW CALLER) Flow Class I Percent Positive 6 [facility] HLA TESTING Flow Class Report Comments [facility] HLA TESTING Specimen Blood Performing Organization Address [facility] Phone Number [facility] HLA TESTING ONE [facility] [place], [place]: [place] [address] [id number], CLIA#[id number] CAP#[id number] UNOS#TXBL [facility] HLA TESTING ONE [facility] [place], [place]: [id number] [place] [address] AB SPECIFICITY CLASS I (08/07/2017 11:28 AM CREW CALLER) AB Specificity Class I NO CLASS I ANTIBODY [facility] HLA TESTING DETECTED WITH MFIs > 4000 AB Specificity Titr Class [facility] HLA TEST[facility] Report Specimen Blood Performing Organization Address [facility] Phone Number [facility] HLA TESTING ONE [facility] [place], [place]: [place] [address] [id number], CLIA#[id number] CAP#[id number] UNOS#TXBL [facility] HLA TESTING [facility] [place], [place]: [address] [place] [address] HIV-1 Antigen with HIV-1/2 Antibody (08/07/2017 10:22 AM CREW CALLER) HIV-1 Antigen with HIV 1&2 NON-REACTIVE Nonreactive [facility] Antibody [facility] Specimen Blood Performing Organization Address City/State/Zipcode Phone Number [facility] [address] [place] [address] [facility] Cystogram Cine or Video Voiding (08/07/2017 9:48 AM CREW CALLER) Narrative Performed At FINAL REPORT [facility] VOIDING CYSTOURETHROGRAM, WITH KUB History provided: Evaluation [...] MD Report Verified Date/Time:08/07/2017 10:05:30 Reading Location: [address] Radiology Reading Room Procedure Note Interface, External Ris In - 08/07/2017 10:07 AM CREW CALLER FINAL REPORT VOIDING CYSTOURETHROGRAM, WITH KUB History [...] Report Verified Date/Time: 08/07/2017 10:05:30 Reading Location: [address] Radiology Reading Room Performing Organization Address City/State/Zipcode Phone Number [facility] US abdomen complete (08/07/2017 8:52 AM CREW CALLER) Narrative Performed At FINAL REPORT [facility] COMPLETE ABDOMINAL ULTRASOUND History provided: Renal failure. [...] MD Report Verified Date/Time:08/07/2017 09:58:47 Reading Location: [address] Radiology Reading Room Procedure Note Interface, External Ris In - 08/07/2017 10:01 AM CREW CALLER FINAL REPORT COMPLETE ABDOMINAL ULTRASOUND History provided: [...] Report Verified Date/Time: 08/07/2017 09:58:47 Reading Location: [address] Radiology Reading Room Performing Organization Address City/State/Zipcode Phone Number GE RIS Blood typing, automated (08/07/2017 7:18 AM CREW CALLER) ABO/RH AUTOMATED (BEAKER) O POSITIVE [facility] Specimen Blood Performing Organization Address City/[facility] Phone Number [address] [address] [phone] PSA (08/07/2017 7:18 AM CREW CALLER) PSA 6.7 (H) 0.0 - 4.0 ng/mL [facility] Specimen Blood Performing Organization Address [facility] Phone Number [address] [address] [place] Lipid panel (08/07/2017 7:18 AM CREW CALLER) Triglycerides 179 mg/dL [facility] Cholesterol 225 mg/dL [facility] HDL 51 mg/dL [facility] LDL Calculated 138 mg/dL [facility] Specimen Blood Narrative Performed At [facility] Triglyceride Reference Range: Low Risk <150 [id number] High Risk 200-499 Very High Risk>=500 Cholesterol Reference Range: Low Risk <200 [id number] High Risk>240 HDL Cholesterol Reference Range: Low Risk >=60 High Risk <40 LDL Cholesterol Reference Range: Optimal<100 Near [id number] Very High >=190 Performing Organization Address City/[facility] Phone Number [address] [address] [phone] CENTER after 05/24/2017 Insurance Payer Benefit Plan / Group Subscriber ID Type Phone Address MEDICARE MEDICARE A B xxxxxxxxxx Medicare HU[employer] - MGD CARE HU[employer] INDEMNITY xxxxxxxxx PPO Advance Directives For more information, please contact:[address] [phone] Code Status Date Activated Date Inactivated Comments Full Code 10/23/2017 11:53 AM 10/29/2017 6:47 PM This code status was determined by: Patient Full Code 10/23/2017 5:57 AM 10/23/2017 11:53 AM This code status was determined by: Patient Full Code 09/30/2017 9:41 AM 09/30/2017 11:12 PM This code status was determined by: Patient
--- OUTSIDE RECORDS SUMMARY | 2018-05-25 21:47 | XMS REPORT ---
:1950 [facility] Address [address] [place] [address] Care Team Providers Name Role Phone LUISITO SUSIE MERY Unavailable Unavailable BRAD GANDARA Unavailable Unavailable CHERISE [...] TOTAL PROTEIN (BEAKER) (test 7.4 gm/dL 6.0-8.3 onku=297) ALBUMIN (BEAKER) (test 4.3 g/dL 3.5-5.0 ufos=0998) ALKALINE PHOSPHATASE 102 U/L 40-150 (BEAKER) (test tdxt=872) BILIRUBIN TOTAL (BEAKER) 0.3 mg/dL 0.2-1.2 (test pcaq=725) SODIUM (BEAKER) (test 139 meq/L 136-145 eyby=638) POTASSIUM (BEAKER) (test 4.0 meq/L 3.5-5.1 axic=197) CHLORIDE (BEAKER) (test 104 meq/L 98-107 osjq=403) CO2 (BEAKER) (test qkoa=038) 25 meq/L 22-29 BLOOD UREA NITROGEN (BEAKER) 23 mg/dL 7-21 (test hmci=339) CREATININE (BEAKER) (test 4.88 mg/dL 0.57-1.25 xayv=404) GLUCOSE RANDOM (BEAKER) 136 mg/dL 70-105 (test ievy=132) CALCIUM (BEAKER) (test 9.6 mg/dL 8.4-10.2 evbf=342) AST (SGOT) (BEAKER) (test 15 U/L 5-34 nmwn=023) ALT (SGPT) (BEAKER) (test 15 U/L 6-55 zyzi=118) EGFR (BEAKER) (test 15 mL/min/1.73 sq m ESTIMATED GFR IS NOT gdor=3613) ACCURATE CREATININE CLEARANCE IN PREDICTING GLOMERULAR FILTRATION RATE. ESTIMATED GFR IS NOT APPLICABLE FOR DIALYSIS PATIENTS. ALKALINE [id number] 13:23:00 Test Item Value Reference Range Comments ALKALINE PHOSPHATASE (BEAKER) (test xccc=587) 102 U/L 40-150 CREATINE KINASE (CK)2017-11-18 13:23:00 Test Item Value Reference Range Comments CREATINE KINASE TOTAL (BEAKER) (test mgpp=908) 56 U/L 29-200 LACTATE DEHYDROGENASE (LDH)2017-11-18 13:23:00 Test Item Value Reference Range Comments LACTATE DEHYDROGENASE (BEAKER) (test vzox=376) 235 U/L 125-220 [id number] 13:18:00 Test Item Value Reference Range Comments PARTIAL THROMBOPLASTIN TIME (BEAKER) (test 35.3 seconds 22.5-36.0 jlzt=020) PROTHROMBIN [id number] 13:17:00 Test Item Value Reference Range Comments PROTIME (BEAKER) (test gxld=267) 13.7 seconds 11.7-14.7 INR (BEAKER) (test auer=648) 1.1 <=5.9 RECOMMENDED COUMADIN/WARFARIN INR THERAPY RANGESSTANDARD DOSE: 2.0 - 3.0 Includes: PROPHYLAXIS forvenous thrombosis, systemic embolization; TREATMENT for venous thrombosis and/or pulmonary embolus.HIGH RISK: Target INR is 2.5-3.5 for patients with mechanical heart valves.[id number] 13:17:00 Test Item Value Reference Range Comments FIBRINOGEN LEVEL (BEAKER) (test icdk=059) 467 mg/dl 225-434 CBC W/PLT COUNT & AUTO [id number] 12:54:00 Test Item Value Reference Range Comments WHITE BLOOD CELL COUNT (BEAKER) (test mujq=926) 5.5 K/ L 3.5-10.5 RED BLOOD CELL COUNT (BEAKER) (test gtkt=922) 3.95 M/ L 4.63-6.08 HEMOGLOBIN (BEAKER) (test budj=193) 10.7 GM/DL 13.7-17.5 HEMATOCRIT (BEAKER) (test zvjs=910) 36.7 % 40.1-51.0 MEAN CORPUSCULAR VOLUME (BEAKER) (test okse=857) 92.9 fL 79.0-92.2 MEAN CORPUSCULAR HEMOGLOBIN (BEAKER) (test 27.1 pg 25.7-32.2 wdkl=829) MEAN CORPUSCULAR HEMOGLOBIN CONC (BEAKER) (test 29.2 GM/DL 32.3-36.5 qdox=485) RED CELL DISTRIBUTION WIDTH (BEAKER) (test 15.4 % 11.6-14.4 deri=572) PLATELET COUNT (BEAKER) (test ifcz=510) 243 K/CU MM 150-450 MEAN PLATELET VOLUME (BEAKER) (test nexi=780) 11.7 fL 9.4-12.4 NUCLEATED RED BLOOD CELLS (BEAKER) (test 0 /100 WBC 0-0 movg=960) NEUTROPHILS RELATIVE PERCENT (BEAKER) (test 49 % qxcr=045) LYMPHOCYTES RELATIVE PERCENT (BEAKER) (test 34 % xlfi=044) MONOCYTES RELATIVE PERCENT (BEAKER) (test 9 % nxfr=460) EOSINOPHILS RELATIVE PERCENT (BEAKER) (test 7 % rosk=766) BASOPHILS RELATIVE PERCENT (BEAKER) (test 1 % whjs=189) NEUTROPHILS ABSOLUTE COUNT (BEAKER) (test 2.67 K/ L 1.78-5.38 aofq=495) LYMPHOCYTES ABSOLUTE COUNT (BEAKER) (test 1.84 K/ L 1.32-3.57 cilj=978) MONOCYTES ABSOLUTE COUNT (BEAKER) (test 0.51 K/ L 0.30-0.82 celx=797) EOSINOPHILS ABSOLUTE COUNT (BEAKER) (test 0.36 K/ L 0.04-0.54 cqye=168) BASOPHILS ABSOLUTE COUNT (BEAKER) (test 0.06 K/ L 0.01-0.08 qcap=583) IMMATURE GRANULOCYTES-RELATIVE PERCENT (BEAKER) 0 % 0-1 (test vydy=1156) POCT-GLUCOSE [id number] 12:50:00 Test Item Value Reference Range Comments POC-GLUCOSE METER (BEAKER) 203 mg/dL 70-110 TESTED AT [facility] [address] [facility] (test agbu=8730) [facility] [address] [id number] 08:18:00 Test Item Value Reference Range Comments PHOSPHORUS (BEAKER) (test lzki=255) 2.1 mg/dL 2.3-4.7 BASIC METABOLIC [id number] 08:18:00 Test Item Value Reference Range Comments SODIUM (BEAKER) (test 139 meq/L 136-145 wrcb=951) POTASSIUM (BEAKER) (test 3.7 meq/L 3.5-5.1 xaix=021) CHLORIDE (BEAKER) (test 105 meq/L 98-107 efoa=475) CO2 (BEAKER) (test 26 meq/L 22-29 tlto=093) BLOOD UREA NITROGEN 31 mg/dL 7-21 (BEAKER) (test jvcz=645) CREATININE (BEAKER) (test 3.68 mg/dL 0.57-1.25 obyt=332) GLUCOSE RANDOM (BEAKER) 91 mg/dL 70-105 (test ozov=639) CALCIUM (BEAKER) (test 8.5 mg/dL 8.4-10.2 ibly=690) EGFR (BEAKER) (test 20 mL/min/1.73 sq m ESTIMATED GFR IS NOT drzh=4456) ACCURATE CREATININE CLEARANCE IN PREDICTING GLOMERULAR FILTRATION RATE. ESTIMATED GFR IS NOT APPLICABLE FOR DIALYSIS PATIENTS. CBC W/PLT COUNT & AUTO [id number] 08:06:00 Test Item Value Reference Range Comments WHITE BLOOD CELL COUNT (BEAKER) (test xsdy=587) 4.7 K/ L 3.5-10.5 RED BLOOD CELL COUNT (BEAKER) (test dlsy=735) 2.84 M/ L 4.63-6.08 HEMOGLOBIN (BEAKER) (test fydm=346) 7.8 GM/DL 13.7-17.5 HEMATOCRIT (BEAKER) (test bera=180) 25.9 % 40.1-51.0 MEAN CORPUSCULAR VOLUME (BEAKER) (test apgx=258) 91.2 fL 79.0-92.2 MEAN CORPUSCULAR HEMOGLOBIN (BEAKER) (test 27.5 pg 25.7-32.2 ivgr=742) MEAN CORPUSCULAR HEMOGLOBIN CONC (BEAKER) (test 30.1 GM/DL 32.3-36.5 hfum=103) RED CELL DISTRIBUTION WIDTH (BEAKER) (test 14.5 % 11.6-14.4 otum=947) PLATELET COUNT (BEAKER) (test miem=546) 180 K/CU MM 150-450 MEAN PLATELET VOLUME (BEAKER) (test smuc=363) 11.7 fL 9.4-12.4 NUCLEATED RED BLOOD CELLS (BEAKER) (test 0 /100 WBC 0-0 ccjx=232) NEUTROPHILS RELATIVE PERCENT (BEAKER) (test 47 % nkji=849) LYMPHOCYTES RELATIVE PERCENT (BEAKER) (test 36 % bhmg=964) MONOCYTES RELATIVE PERCENT (BEAKER) (test 12 % hkyc=557) EOSINOPHILS RELATIVE PERCENT (BEAKER) (test 4 % byrj=387) BASOPHILS RELATIVE PERCENT (BEAKER) (test 0 % yomn=386) NEUTROPHILS ABSOLUTE COUNT (BEAKER) (test 2.20 K/ L 1.78-5.38 vrtn=731) LYMPHOCYTES ABSOLUTE COUNT (BEAKER) (test 1.72 K/ L 1.32-3.57 xfjd=197) MONOCYTES ABSOLUTE COUNT (BEAKER) (test 0.55 K/ L 0.30-0.82 zduo=684) EOSINOPHILS ABSOLUTE COUNT (BEAKER) (test 0.21 K/ L 0.04-0.54 nmah=307) BASOPHILS ABSOLUTE COUNT (BEAKER) (test 0.02 K/ L 0.01-0.08 hidn=084) IMMATURE GRANULOCYTES-RELATIVE PERCENT (BEAKER) 1 % 0-1 (test putw=5355) CBC W/PLT COUNT & AUTO [id number] 07:54:00 Test Item Value Reference Range Comments WHITE BLOOD CELL COUNT (BEAKER) (test ovdz=466) 4.2 K/ L 3.5-10.5 RED BLOOD CELL COUNT (BEAKER) (test fpjl=538) 2.95 M/ L 4.63-6.08 HEMOGLOBIN (BEAKER) (test dkmk=541) 8.0 GM/DL 13.7-17.5 HEMATOCRIT (BEAKER) (test lfhc=625) 26.5 % 40.1-51.0 MEAN CORPUSCULAR VOLUME (BEAKER) (test jwjt=525) 89.8 fL 79.0-92.2 MEAN CORPUSCULAR HEMOGLOBIN (BEAKER) (test 27.1 pg 25.7-32.2 ltjr=016) MEAN CORPUSCULAR HEMOGLOBIN CONC (BEAKER) (test 30.2 GM/DL 32.3-36.5 rfwk=353) RED CELL DISTRIBUTION WIDTH (BEAKER) (test 14.6 % 11.6-14.4 vwdh=106) PLATELET COUNT (BEAKER) (test uwxy=535) 179 K/CU MM 150-450 MEAN PLATELET VOLUME (BEAKER) (test aqku=531) 11.3 fL 9.4-12.4 NUCLEATED RED BLOOD CELLS (BEAKER) (test 0 /100 WBC 0-0 lecf=952) NEUTROPHILS RELATIVE PERCENT (BEAKER) (test 52 % mvdi=294) LYMPHOCYTES RELATIVE PERCENT (BEAKER) (test 35 % ilqe=594) MONOCYTES RELATIVE PERCENT (BEAKER) (test 7 % ydcf=588) EOSINOPHILS RELATIVE PERCENT (BEAKER) (test 4 % diwk=384) BASOPHILS RELATIVE PERCENT (BEAKER) (test 1 % fcos=027) NEUTROPHILS ABSOLUTE COUNT (BEAKER) (test 2.22 K/ L 1.78-5.38 steq=387) LYMPHOCYTES ABSOLUTE COUNT (BEAKER) (test 1.50 K/ L 1.32-3.57 dpzs=266) MONOCYTES ABSOLUTE COUNT (BEAKER) (test 0.30 K/ L 0.30-0.82 ltka=632) EOSINOPHILS ABSOLUTE COUNT (BEAKER) (test 0.17 K/ L 0.04-0.54 icjp=297) BASOPHILS ABSOLUTE COUNT (BEAKER) (test 0.03 K/ L 0.01-0.08 pyxx=507) IMMATURE GRANULOCYTES-RELATIVE PERCENT (BEAKER) 1 % 0-1 (test vjee=3068) BASIC METABOLIC [id number] 06:41:00 Test Item Value Reference Range Comments SODIUM (BEAKER) (test 139 meq/L 136-145 eyjn=125) POTASSIUM (BEAKER) (test 4.0 meq/L 3.5-5.1 hfkn=090) CHLORIDE (BEAKER) (test 106 meq/L 98-107 qyeh=911) CO2 (BEAKER) (test 25 meq/L 22-29 food=498) BLOOD UREA NITROGEN 45 mg/dL 7-21 (BEAKER) (test rdsz=978) CREATININE (BEAKER) (test 5.14 mg/dL 0.57-1.25 mhtw=707) GLUCOSE RANDOM (BEAKER) 82 mg/dL 70-105 (test bvxc=403) CALCIUM (BEAKER) (test 8.7 mg/dL 8.4-10.2 twnd=545) EGFR (BEAKER) (test 14 mL/min/1.73 sq m ESTIMATED GFR IS NOT qccx=6091) ACCURATE CREATININE CLEARANCE IN PREDICTING GLOMERULAR FILTRATION RATE. ESTIMATED GFR IS NOT APPLICABLE FOR DIALYSIS PATIENTS. [id number] 06:37:00 Test Item Value Reference Range Comments MAGNESIUM (BEAKER) (test sonm=750) 2.4 mg/dL 1.6-2.6 POCT-GLUCOSE [id number] 21:17:00 Test Item Value Reference Range Comments POC-GLUCOSE METER (BEAKER) 147 mg/dL 70-110 TESTED AT [address] (test mkvz=9919) [place] [id number] POCT-GLUCOSE [id number] 16:44:00 Test Item Value Reference Range Comments POC-GLUCOSE METER (BEAKER) 87 mg/dL 70-110 TESTED AT [address] (test uqpo=0309) [place] [id number] POCT-GLUCOSE [id number] 12:41:00 Test Item Value Reference Range Comments POC-GLUCOSE METER (BEAKER) 176 mg/dL 70-110 TESTED AT [address] (test wkkf=3799) [place] [id number] POCT-GLUCOSE [id number] 07:36:00 Test Item Value Reference Range Comments POC-GLUCOSE METER (BEAKER) 140 mg/dL 70-110 TESTED AT [address] (test pbxm=3157) [facility] [address] BASIC METABOLIC [id number] 05:04:00 Test Item Value Reference Range Comments SODIUM (BEAKER) (test 140 meq/L 136-145 lttr=734) POTASSIUM (BEAKER) (test 3.8 meq/L 3.5-5.1 kqnt=049) CHLORIDE (BEAKER) (test 105 meq/L 98-107 rxih=525) CO2 (BEAKER) (test 25 meq/L 22-29 lgdi=298) BLOOD UREA NITROGEN 33 mg/dL 7-21 (BEAKER) (test gliy=259) CREATININE (BEAKER) (test 4.36 mg/dL 0.57-1.25 zkls=837) GLUCOSE RANDOM (BEAKER) 117 mg/dL 70-105 (test nefq=743) CALCIUM (BEAKER) (test 9.0 mg/dL 8.4-10.2 avfy=224) EGFR (BEAKER) (test 17 mL/min/1.73 sq m ESTIMATED GFR IS NOT fydv=9915) ACCURATE CREATININE CLEARANCE IN PREDICTING GLOMERULAR FILTRATION RATE. ESTIMATED GFR IS NOT APPLICABLE FOR DIALYSIS PATIENTS. [id number] 05:03:00 Test Item Value Reference Range Comments MAGNESIUM (BEAKER) (test ocyn=818) 2.4 mg/dL 1.6-2.6 [id number] 22:18:00 Test Item Value Reference Range Comments POTASSIUM (BEAKER) (test ewou=345) 3.6 meq/L 3.5-5.1 POCT-GLUCOSE [id number] 22:07:00 Test Item Value Reference Range Comments POC-GLUCOSE METER (BEAKER) 104 mg/dL 70-110 TESTED AT [address] (test hopi=2408) [facility] [address] POCT-GLUCOSE [id number] 16:59:00 Test Item Value Reference Range Comments POC-GLUCOSE METER (BEAKER) 130 mg/dL 70-110 TESTED AT [address] (test lcfv=8632) [facility] [address] ALKALINE [id number] 14:14:00 Test Item Value Reference Range Comments ALKALINE PHOSPHATASE (BEAKER) (test fror=446) 40 U/L 40-150 PROTEIN, [id number] 14:14:00 Test Item Value Reference Range Comments TOTAL PROTEIN (BEAKER) (test ncaz=537) 6.3 gm/dL 6.0-8.3 AST (SGOT)2017-10-27 14:14:00 Test Item Value Reference Range Comments AST (SGOT) (BEAKER) (test jnfq=799) 68 U/L 5-34 ALT (SGPT)2017-10-27 14:14:00 Test Item Value Reference Range Comments ALT (SGPT) (BEAKER) (test atch=093) 90 U/L 6-55 BILIRUBIN, TOTAL AND [id number] 14:14:00 Test Item Value Reference Range Comments BILIRUBIN TOTAL (BEAKER) (test uqkx=501) 0.2 mg/dL 0.2-1.2 BILIRUBIN DIRECT (BEAKER) (test nvie=373) 0.1 mg/dL 0.1-0.5 [id number] 14:14:00 Test Item Value Reference Range Comments ALBUMIN (BEAKER) (test izvi=0472) 3.4 g/dL 3.5-5.0 CREATINE KINASE (CK)2017-10-27 14:14:00 Test Item Value Reference Range Comments CREATINE KINASE TOTAL (BEAKER) (test rhzt=631) 665 U/L 29-200 LACTATE DEHYDROGENASE (LDH)2017-10-27 14:14:00 Test Item Value Reference Range Comments LACTATE DEHYDROGENASE (BEAKER) (test xkwk=290) 314 U/L 125-220 PROTHROMBIN [id number] 13:54:00 Test Item Value Reference Range Comments PROTIME (BEAKER) (test gzrc=771) 14.6 seconds 11.7-14.7 INR (BEAKER) (test fxxc=144) 1.1 <=5.9 RECOMMENDED COUMADIN/WARFARIN INR THERAPY RANGESSTANDARD DOSE: 2.0 - 3.0 Includes: PROPHYLAXIS forvenous thrombosis, systemic embolization; TREATMENT for venous thrombosis and/or pulmonary embolus.HIGH RISK: Target INR is 2.5-3.5 for patients with mechanical heart valves.[id number] 13:54:00 Test Item Value Reference Range Comments PARTIAL THROMBOPLASTIN TIME (BEAKER) (test 33.4 seconds 22.5-36.0 hvxu=043) POCT-GLUCOSE [id number] 12:17:00 Test Item Value Reference Range Comments POC-GLUCOSE METER (BEAKER) 211 mg/dL 70-110 TESTED AT [address] (test uqgn=1317) [place] [id number] POCT-GLUCOSE [id number] 08:22:00 Test Item Value Reference Range Comments POC-GLUCOSE METER (BEAKER) 221 mg/dL 70-110 TESTED AT [address] (test sqfb=1893) [place] [id number] BASIC METABOLIC [id number] 07:54:00 Test Item Value Reference Range Comments SODIUM (BEAKER) (test 138 meq/L 136-145 aphe=710) POTASSIUM (BEAKER) (test 3.9 meq/L 3.5-5.1 thih=155) CHLORIDE (BEAKER) (test 102 meq/L 98-107 vyij=374) CO2 (BEAKER) (test 25 meq/L 22-29 oyhq=054) BLOOD UREA NITROGEN 60 mg/dL 7-21 (BEAKER) (test yori=093) CREATININE (BEAKER) (test 6.81 mg/dL 0.57-1.25 gzue=662) GLUCOSE RANDOM (BEAKER) 177 mg/dL 70-105 (test bnbn=784) CALCIUM (BEAKER) (test 9.0 mg/dL 8.4-10.2 nkne=992) EGFR (BEAKER) (test 10 mL/min/1.73 sq m ESTIMATED GFR IS NOT ujki=8428) ACCURATE CREATININE CLEARANCE IN PREDICTING GLOMERULAR FILTRATION RATE. ESTIMATED GFR IS NOT APPLICABLE FOR DIALYSIS PATIENTS. [id number] 07:52:00 Test Item Value Reference Range Comments MAGNESIUM (BEAKER) (test sqru=523) 2.8 mg/dL 1.6-2.6 CBC W/PLT COUNT & AUTO [id number] 07:11:00 Test Item Value Reference Range Comments WHITE BLOOD CELL COUNT (BEAKER) (test njmi=312) 6.1 K/ L 3.5-10.5 RED BLOOD CELL COUNT (BEAKER) (test lshg=976) 3.04 M/ L 4.63-6.08 HEMOGLOBIN (BEAKER) (test aqof=595) 8.4 GM/DL 13.7-17.5 HEMATOCRIT (BEAKER) (test sycz=271) 27.4 % 40.1-51.0 MEAN CORPUSCULAR VOLUME (BEAKER) (test hbtz=505) 90.1 fL 79.0-92.2 MEAN CORPUSCULAR HEMOGLOBIN (BEAKER) (test 27.6 pg 25.7-32.2 uynv=870) MEAN CORPUSCULAR HEMOGLOBIN CONC (BEAKER) (test 30.7 GM/DL 32.3-36.5 lpsv=635) RED CELL DISTRIBUTION WIDTH (BEAKER) (test 14.9 % 11.6-14.4 epap=636) PLATELET COUNT (BEAKER) (test qnim=482) 141 K/CU MM 150-450 MEAN PLATELET VOLUME (BEAKER) (test zyri=982) 12.1 fL 9.4-12.4 NUCLEATED RED BLOOD CELLS (BEAKER) (test 0 /100 WBC 0-0 kedk=857) NEUTROPHILS RELATIVE PERCENT (BEAKER) (test 64 % lued=125) LYMPHOCYTES RELATIVE PERCENT (BEAKER) (test 21 % mfuc=405) MONOCYTES RELATIVE PERCENT (BEAKER) (test 11 % pweb=901) EOSINOPHILS RELATIVE PERCENT (BEAKER) (test 4 % skeo=654) BASOPHILS RELATIVE PERCENT (BEAKER) (test 1 % haah=317) NEUTROPHILS ABSOLUTE COUNT (BEAKER) (test 3.88 K/ L 1.78-5.38 ayqg=366) LYMPHOCYTES ABSOLUTE COUNT (BEAKER) (test 1.29 K/ L 1.32-3.57 aone=584) MONOCYTES ABSOLUTE COUNT (BEAKER) (test 0.65 K/ L 0.30-0.82 vrlk=464) EOSINOPHILS ABSOLUTE COUNT (BEAKER) (test 0.23 K/ L 0.04-0.54 ghnv=043) BASOPHILS ABSOLUTE COUNT (BEAKER) (test 0.03 K/ L 0.01-0.08 mqhh=864) IMMATURE GRANULOCYTES-RELATIVE PERCENT (BEAKER) 0 % 0-1 (test vzyb=6032) POCT-GLUCOSE [id number] 22:32:00 Test Item Value Reference Range Comments POC-GLUCOSE METER (BEAKER) 130 mg/dL 70-110 TESTED AT [address] (test ruqi=9438) [facility] [address] POCT-GLUCOSE [id number] 17:40:00 Test Item Value Reference Range Comments POC-GLUCOSE METER (BEAKER) 72 mg/dL 70-110 TESTED AT [address] (test odlm=0934) [facility] [address] RAD, CHEST, 1 VIEW, NON [id number] 17:08:00Reason for exam:-> sternotomyFINAL REPORT CLINICAL INDICATION: Postop Comparison: 10/25/2017 The cardiomediastinal contours are stable. Central pulmonary vascular prominence and bilateral parenchymal opacities are similar within variation of acquisition technique. Blunting of the costophrenic sulci may reflect trace effusions or pleural thickening. There is no pneumothorax. A tunneled right IJ dialysis catheter remains in place. Signed: Eliu Hassan MDReport Verified Date/Time: 10/26/2017 17:08:24 Reading Location: [address] Reading Room Electronically signed by: ELIU HASSAN M.D.on 10/26/2017 05:08 PMPOCT-GLUCOSE [id number] 12:37:00 Test Item Value Reference Range Comments POC-GLUCOSE METER (BEAKER) 215 mg/dL 70-110 TESTED AT [facility] [address] [facility] (test dahx=2025) [facility] [address] POCT-GLUCOSE [id number] 07:58:00 Test Item Value Reference Range Comments POC-GLUCOSE METER (BEAKER) 180 mg/dL 70-110 TESTED AT [place] [id number] [facility] (test xmiu=0686) [facility] [address] BASIC METABOLIC [id number] 06:13:00 Test Item Value Reference Range Comments SODIUM (BEAKER) (test 135 meq/L 136-145 xdpk=300) POTASSIUM (BEAKER) (test 3.9 meq/L 3.5-5.1 vuyt=688) CHLORIDE (BEAKER) (test 102 meq/L 98-107 ntqu=644) CO2 (BEAKER) (test 21 meq/L 22-29 hgwx=501) BLOOD UREA NITROGEN 49 mg/dL 7-21 (BEAKER) (test gjum=220) CREATININE (BEAKER) (test 6.12 mg/dL 0.57-1.25 ouwx=175) GLUCOSE RANDOM (BEAKER) 158 mg/dL 70-105 (test oxya=835) CALCIUM (BEAKER) (test 8.5 mg/dL 8.4-10.2 mbtu=983) EGFR (BEAKER) (test 11 mL/min/1.73 sq m ESTIMATED GFR IS NOT bwem=0531) ACCURATE CREATININE CLEARANCE IN PREDICTING GLOMERULAR FILTRATION RATE. ESTIMATED GFR IS NOT APPLICABLE FOR DIALYSIS PATIENTS. CBC W/PLT COUNT & AUTO [id number] 06:02:00 Test Item Value Reference Range Comments WHITE BLOOD CELL COUNT (BEAKER) (test szxk=918) 6.8 K/ L 3.5-10.5 RED BLOOD CELL COUNT (BEAKER) (test xnan=286) 3.02 M/ L 4.63-6.08 HEMOGLOBIN (BEAKER) (test oobh=568) 8.2 GM/DL 13.7-17.5 HEMATOCRIT (BEAKER) (test ljqt=370) 27.0 % 40.1-51.0 MEAN CORPUSCULAR VOLUME (BEAKER) (test qznv=348) 89.4 fL 79.0-92.2 MEAN CORPUSCULAR HEMOGLOBIN (BEAKER) (test 27.2 pg 25.7-32.2 niar=614) MEAN CORPUSCULAR HEMOGLOBIN CONC (BEAKER) (test 30.4 GM/DL 32.3-36.5 pwwt=422) RED CELL DISTRIBUTION WIDTH (BEAKER) (test 15.4 % 11.6-14.4 rwau=054) PLATELET COUNT (BEAKER) (test yqas=010) 116 K/CU MM 150-450 MEAN PLATELET VOLUME (BEAKER) (test ucih=998) 12.1 fL 9.4-12.4 NUCLEATED RED BLOOD CELLS (BEAKER) (test 0 /100 WBC 0-0 deai=264) NEUTROPHILS RELATIVE PERCENT (BEAKER) (test 61 % qnji=587) LYMPHOCYTES RELATIVE PERCENT (BEAKER) (test 26 % vvho=139) MONOCYTES RELATIVE PERCENT (BEAKER) (test 10 % knmo=515) EOSINOPHILS RELATIVE PERCENT (BEAKER) (test 2 % aedk=376) BASOPHILS RELATIVE PERCENT (BEAKER) (test 1 % lqgm=279) NEUTROPHILS ABSOLUTE COUNT (BEAKER) (test 4.13 K/ L 1.78-5.38 jmep=119) LYMPHOCYTES ABSOLUTE COUNT (BEAKER) (test 1.75 K/ L 1.32-3.57 wydi=144) MONOCYTES ABSOLUTE COUNT (BEAKER) (test 0.65 K/ L 0.30-0.82 ndvb=452) EOSINOPHILS ABSOLUTE COUNT (BEAKER) (test 0.16 K/ L 0.04-0.54 jcvc=581) BASOPHILS ABSOLUTE COUNT (BEAKER) (test 0.04 K/ L 0.01-0.08 xhuo=004) IMMATURE GRANULOCYTES-RELATIVE PERCENT (BEAKER) 0 % 0-1 (test dzqd=8702) POCT-GLUCOSE [id number] 20:48:00 Test Item Value Reference Range Comments POC-GLUCOSE METER (BEAKER) 222 mg/dL 70-110 TESTED AT [address] (test iqwl=8954) [facility] [address] POCT-GLUCOSE [id number] 18:04:00 Test Item Value Reference Range Comments POC-GLUCOSE METER (BEAKER) 188 mg/dL 70-110 TESTED AT [address] (test tpdw=2197) [place] [address] POCT-GLUCOSE [id number] 13:33:00 Test Item Value Reference Range Comments POC-GLUCOSE METER (BEAKER) 196 mg/dL 70-110 TESTED AT [address] (test tbjs=0492) [place] [address] BASIC METABOLIC [id number] 12:01:00 Test Item Value Reference Range Comments SODIUM (BEAKER) (test 137 meq/L 136-145 oxfo=452) POTASSIUM (BEAKER) (test 4.3 meq/L 3.5-5.1 oplp=600) CHLORIDE (BEAKER) (test 102 meq/L 98-107 gtnx=322) CO2 (BEAKER) (test 22 meq/L 22-29 qbah=546) BLOOD UREA NITROGEN 35 mg/dL 7-21 (BEAKER) (test olzf=004) CREATININE (BEAKER) (test 4.85 mg/dL 0.57-1.25 jfgh=469) GLUCOSE RANDOM (BEAKER) 169 mg/dL 70-105 (test xppp=591) CALCIUM (BEAKER) (test 8.3 mg/dL 8.4-10.2 zpby=655) EGFR (BEAKER) (test 15 mL/min/1.73 sq m ESTIMATED GFR IS NOT azqg=0637) ACCURATE CREATININE CLEARANCE IN PREDICTING GLOMERULAR FILTRATION RATE. ESTIMATED GFR IS NOT APPLICABLE FOR DIALYSIS PATIENTS. POCT-GLUCOSE [id number] 11:59:00 Test Item Value Reference Range Comments POC-GLUCOSE METER (BEAKER) 194 mg/dL 70-110 TESTED AT [address] (test hrda=1317) [place] [address] CBC W/PLT COUNT & AUTO [id number] 11:39:00 Test Item Value Reference Range Comments WHITE BLOOD CELL COUNT (BEAKER) (test jdxi=096) 6.8 K/ L 3.5-10.5 RED BLOOD CELL COUNT (BEAKER) (test rngg=568) 3.28 M/ L 4.63-6.08 HEMOGLOBIN (BEAKER) (test mica=606) 8.9 GM/DL 13.7-17.5 HEMATOCRIT (BEAKER) (test lgzv=216) 31.0 % 40.1-51.0 MEAN CORPUSCULAR VOLUME (BEAKER) (test vllm=919) 94.5 fL 79.0-92.2 MEAN CORPUSCULAR HEMOGLOBIN (BEAKER) (test 27.1 pg 25.7-32.2 owmp=629) MEAN CORPUSCULAR HEMOGLOBIN CONC (BEAKER) (test 28.7 GM/DL 32.3-36.5 ljqm=954) RED CELL DISTRIBUTION WIDTH (BEAKER) (test 16.1 % 11.6-14.4 hkal=862) PLATELET COUNT (BEAKER) (test eksk=288) 110 K/CU MM 150-450 MEAN PLATELET VOLUME (BEAKER) (test tons=521) 12.4 fL 9.4-12.4 NUCLEATED RED BLOOD CELLS (BEAKER) (test 0 /100 WBC 0-0 txpz=871) NEUTROPHILS RELATIVE PERCENT (BEAKER) (test 71 % vadk=533) LYMPHOCYTES RELATIVE PERCENT (BEAKER) (test 19 % bten=954) MONOCYTES RELATIVE PERCENT (BEAKER) (test 9 % zsrl=474) EOSINOPHILS RELATIVE PERCENT (BEAKER) (test 1 % jgfx=216) BASOPHILS RELATIVE PERCENT (BEAKER) (test 0 % vhaw=103) NEUTROPHILS ABSOLUTE COUNT (BEAKER) (test 4.78 K/ L 1.78-5.38 uhky=475) LYMPHOCYTES ABSOLUTE COUNT (BEAKER) (test 1.26 K/ L 1.32-3.57 qsux=953) MONOCYTES ABSOLUTE COUNT (BEAKER) (test 0.62 K/ L 0.30-0.82 eulq=894) EOSINOPHILS ABSOLUTE COUNT (BEAKER) (test 0.04 K/ L 0.04-0.54 fbwz=048) BASOPHILS ABSOLUTE COUNT (BEAKER) (test 0.03 K/ L 0.01-0.08 lfmw=230) IMMATURE GRANULOCYTES-RELATIVE PERCENT (BEAKER) 0 % 0-1 (test ihit=7579) RAD, CHEST, 1 VIEW, NON [id number] 09:03:00Reason for exam:->S/p CABGShould this be performed [...] summary, no evidence of postoperative complication. Signed: Zay Lara MDReport Verified Date/Time : 10/25/2017 09:03:01 Reading Location: [facility] B1 [id number] Ortho Consult Reading Room 09: 03 AMPOCT-GLUCOSE [id number] 20:54:00 Test Item Value Reference Range Comments POC-GLUCOSE METER (BEAKER) 183 mg/dL 70-110 TESTED AT [facility] [address] [place] [address] (test witb=7280) [facility] [address] HEPATITIS B SURFACE [id number] 16:24:00 Test Item Value Reference Range Comments HEPATITIS B SURFACE ANTIGEN (2) (BEAKER) (test Nonreactive Nonreactive vkbl=8812) For chronic HD patients, draw HBsAg with each admission then every 30 days.RAD, CHEST, 1 VIEW, NON [id number] 13:31:00Reason for exam:->air leak from chest tubes. [...] intact and well aligned. No fracture. Signed: Joseph NapierMDReport Verified Date/Time: 10/24/2017 13:31:11 Reading Location: [facility] Radiology Reading Room HEMOGLOBIN AND [id number] 09:47:00 Test Item Value Reference Range Comments HEMOGLOBIN (BEAKER) (test bnyj=811) 9.9 GM/DL 13.7-17.5 HEMATOCRIT (BEAKER) (test udag=388) 31.7 % 40.1-51.0 POCT-GLUCOSE [id number] 09:38:00 Test Item Value Reference Range Comments POC-GLUCOSE METER (BEAKER) 200 mg/dL 70-110 TESTED AT [facility] [address] [facility] (test qgyq=0430) [facility] [address] POCT-GLUCOSE [id number] 04:46:00 Test Item Value Reference Range Comments POC-GLUCOSE METER (BEAKER) 129 mg/dL 70-110 TESTED AT [address] (test ouvw=5639) [place] [id number] POCT-GLUCOSE [id number] 04:46:00 Test Item Value Reference Range Comments POC-GLUCOSE METER (BEAKER) 172 mg/dL 70-110 TESTED AT [address] (test akgt=2322) [facility] [address] BASIC METABOLIC [id number] 04:01:00 Test Item Value Reference Range Comments SODIUM (BEAKER) (test 139 meq/L 136-145 kzcw=204) POTASSIUM (BEAKER) (test 5.6 meq/L 3.5-5.1 ywix=574) CHLORIDE (BEAKER) (test 109 meq/L 98-107 jrel=548) CO2 (BEAKER) (test 19 meq/L 22-29 lypd=007) BLOOD UREA NITROGEN 54 mg/dL 7-21 (BEAKER) (test zncr=827) CREATININE (BEAKER) (test 5.66 mg/dL 0.57-1.25 rrpx=723) GLUCOSE RANDOM (BEAKER) 164 mg/dL 70-105 (test cnoh=025) CALCIUM (BEAKER) (test 9.2 mg/dL 8.4-10.2 qvzs=507) EGFR (BEAKER) (test 12 mL/min/1.73 sq m ESTIMATED GFR IS NOT biej=1002) ACCURATE CREATININE CLEARANCE IN PREDICTING GLOMERULAR FILTRATION RATE. ESTIMATED GFR IS NOT APPLICABLE FOR DIALYSIS PATIENTS. [id number] 03:58:00 Test Item Value Reference Range Comments PHOSPHORUS (BEAKER) (test gmpz=058) 5.3 mg/dL 2.3-4.7 [id number] 03:58:00 Test Item Value Reference Range Comments MAGNESIUM (BEAKER) (test elpp=525) 3.2 mg/dL 1.6-2.6 CALCIUM, [id number] 03:56:00 Test Item Value Reference Range Comments CALCIUM IONIZED (BEAKER) (test vxnn=072) 1.17 mmol/L 1.12-1.27 PH, BLOOD (BEAKER) (test cofq=7040) 7.29 RAD, CHEST, 1 VIEW, NON [id number] 03:56:00while patient is intubated or has chest tubes.Reason for exam:->chest tubesShould this be performed at the bedside?->YesFINAL REPORT CLINICAL INDICATION: Support lines. Comparison: 10/23/2017 The cardiomediastinal contours are stable. The lung volumes are low after extubation but similar to previous. Central pulmonary vascular prominence and bilateral parenchymal opacities are grossly stable. There is no pneumothorax. Remaining support lines are stable. Signed: Eliu Hassan MDReport Verified Date/Time: 10/24/2017 03:56:43 Reading Location : [address] Reading Room LACTIC ACID, ARTERIAL, WHOLE [id number] 03:54:00 Test Item Value Reference Range Comments LACTATE BLOOD ARTERIAL (2) (BEAKER) (test 0.7 mmol/L 0.5-2.2 nsvq=7469) Effective 10/18/2015: Units/Reference Range ChangeNew: 0.5-2.2 mmol/L Previous: 5 -20 mg/dLOXYGEN SATURATION, [id number] 03:53:00 Test Item Value Reference Range Comments O2 SATURATION (MEASURED) (BEAKER) (test tntp=6125) 72.5 % CBC W/PLT COUNT & AUTO [id number] 03:44:00 Test Item Value Reference Range Comments WHITE BLOOD CELL COUNT (BEAKER) (test hrau=649) 9.5 K/ L 3.5-10.5 RED BLOOD CELL COUNT (BEAKER) (test fnrw=199) 3.55 M/ L 4.63-6.08 HEMOGLOBIN (BEAKER) (test bhwz=726) 9.7 GM/DL 13.7-17.5 HEMATOCRIT (BEAKER) (test ydzy=161) 31.2 % 40.1-51.0 MEAN CORPUSCULAR VOLUME (BEAKER) (test zqse=262) 87.9 fL 79.0-92.2 MEAN CORPUSCULAR HEMOGLOBIN (BEAKER) (test 27.3 pg 25.7-32.2 goei=367) MEAN CORPUSCULAR HEMOGLOBIN CONC (BEAKER) (test 31.1 GM/DL 32.3-36.5 uron=143) RED CELL DISTRIBUTION WIDTH (BEAKER) (test 16.3 % 11.6-14.4 flxi=860) PLATELET COUNT (BEAKER) (test yimg=932) 118 K/CU MM 150-450 MEAN PLATELET VOLUME (BEAKER) (test efyt=186) 11.8 fL 9.4-12.4 NUCLEATED RED BLOOD CELLS (BEAKER) (test 0 /100 WBC 0-0 tkhg=752) NEUTROPHILS RELATIVE PERCENT (BEAKER) (test 79 % vsrn=008) LYMPHOCYTES RELATIVE PERCENT (BEAKER) (test 12 % pyoq=322) MONOCYTES RELATIVE PERCENT (BEAKER) (test 8 % jilh=996) EOSINOPHILS RELATIVE PERCENT (BEAKER) (test 0 % kbhe=066) BASOPHILS RELATIVE PERCENT (BEAKER) (test 0 % cyxa=726) NEUTROPHILS ABSOLUTE COUNT (BEAKER) (test 7.55 K/ L 1.78-5.38 gbbx=778) LYMPHOCYTES ABSOLUTE COUNT (BEAKER) (test 1.10 K/ L 1.32-3.57 nrnb=683) MONOCYTES ABSOLUTE COUNT (BEAKER) (test 0.80 K/ L 0.30-0.82 gddh=368) EOSINOPHILS ABSOLUTE COUNT (BEAKER) (test 0.01 K/ L 0.04-0.54 sgyv=876) BASOPHILS ABSOLUTE COUNT (BEAKER) (test 0.03 K/ L 0.01-0.08 mkfr=360) IMMATURE GRANULOCYTES-RELATIVE PERCENT (BEAKER) 0 % 0-1 (test hlyq=4111) POCT-GLUCOSE [id number] 22:48:00 Test Item Value Reference Range Comments POC-GLUCOSE METER (BEAKER) 162 mg/dL 70-110 TESTED AT [address] (test yiyh=9714) [place] [id number] POCT-GLUCOSE [id number] 22:48:00 Test Item Value Reference Range Comments POC-GLUCOSE METER (BEAKER) 163 mg/dL 70-110 TESTED AT [address] (test uatc=4941) [place] [id number] POCT-GLUCOSE [id number] 22:48:00 Test Item Value Reference Range Comments POC-GLUCOSE METER (BEAKER) 113 mg/dL 70-110 TESTED AT [address] (test gzpg=8154) [place] [id number] POCT-GLUCOSE [id number] 22:48:00 Test Item Value Reference Range Comments POC-GLUCOSE METER (BEAKER) 83 mg/dL 70-110 TESTED AT [address] (test ejrz=1182) [place] [id number] POCT-GLUCOSE [id number] 22:48:00 Test Item Value Reference Range Comments POC-GLUCOSE METER (BEAKER) 114 mg/dL 70-110 TESTED AT [address] (test zwsu=0747) [place] [address] BLOOD GAS, [id number] 17:05:00 Test Item Value Reference Range Comments PH ARTERIAL (BEAKER) (test mucf=141) 7.43 7.35-7.45 PCO2 ARTERIAL (BEAKER) (test grri=228) 32 mmHg 35-45 PO2 ARTERIAL (BEAKER) (test lviw=365) 184 mmHg 80-90 O2 SATURATION ARTERIAL (BEAKER) (test lodo=817) 99.3 % 96.0-97.0 HCO3 ARTERIAL (BEAKER) (test avod=652) 21 mmol/L 21-29 BASE EXCESS ARTERIAL (BEAKER) (test tpyo=861) -3.0 mmol/L -2.0-3.0 PATIENT TEMPERATURE (BEAKER) (test fjyn=2642) 36.7 C FIO2 (BEAKER) (test ffdg=9212) 40.0 % POCT-GLUCOSE [id number] 15:59:00 Test Item Value Reference Range Comments POC-GLUCOSE METER (BEAKER) 197 mg/dL 70-110 TESTED AT [address] (test gcjp=4344) [place] [id number] POCT-GLUCOSE [id number] 15:59:00 Test Item Value Reference Range Comments POC-GLUCOSE METER (BEAKER) 218 mg/dL 70-110 TESTED AT [address] (test fvku=7190) [place] [address] BLOOD GAS, [id number] 14:11:00 Test Item Value Reference Range Comments PH ARTERIAL (BEAKER) (test qmzu=211) 7.39 7.35-7.45 PCO2 ARTERIAL (BEAKER) (test oaok=322) 31 mmHg 35-45 PO2 ARTERIAL (BEAKER) (test oajd=897) 164 mmHg 80-90 O2 SATURATION ARTERIAL (BEAKER) (test wizg=951) 99.1 % 96.0-97.0 HCO3 ARTERIAL (BEAKER) (test wkps=935) 18 mmol/L 21-29 BASE EXCESS ARTERIAL (BEAKER) (test fvbx=606) -5.7 mmol/L -2.0-3.0 PATIENT TEMPERATURE (BEAKER) (test zxmj=7407) 36.7 C FIO2 (BEAKER) (test snib=6778) 40.0 % GLUCOSE-STAT [id number] 14:11:00 Test Item Value Reference Range Comments GLUCOSE RANDOM (BEAKER) (test smgr=953) 235 mg/dL 70-110 HEMOGLOBIN [id number] 14:09:00 Test Item Value Reference Range Comments HEMOGLOBIN A1C (BEAKER) (test ghtp=468) 7.0 % 4.3-6.1 BASIC METABOLIC [id number] 12:49:00 Test Item Value Reference Range Comments SODIUM (BEAKER) (test 138 meq/L 136-145 llpy=267) POTASSIUM (BEAKER) (test 4.1 meq/L 3.5-5.1 fmak=521) CHLORIDE (BEAKER) (test 109 meq/L 98-107 alwj=750) CO2 (BEAKER) (test 17 meq/L 22-29 ugzc=705) BLOOD UREA NITROGEN 46 mg/dL 7-21 (BEAKER) (test vrtk=480) CREATININE (BEAKER) (test 4.91 mg/dL 0.57-1.25 qqcr=518) GLUCOSE RANDOM (BEAKER) 282 mg/dL 70-105 (test hsec=702) CALCIUM (BEAKER) (test 9.5 mg/dL 8.4-10.2 wztg=431) EGFR (BEAKER) (test 14 mL/min/1.73 sq m ESTIMATED GFR IS NOT mtwz=4225) ACCURATE CREATININE CLEARANCE IN PREDICTING GLOMERULAR FILTRATION RATE. ESTIMATED GFR IS NOT APPLICABLE FOR DIALYSIS PATIENTS. [id number] 12:41:00 Test Item Value Reference Range Comments POTASSIUM (BEAKER) (test tcwf=713) 4.1 meq/L 3.5-5.1 [id number] 12:41:00 Test Item Value Reference Range Comments MAGNESIUM (BEAKER) (test szpf=908) 3.2 mg/dL 1.6-2.6 [id number] 12:41:00 Test Item Value Reference Range Comments PHOSPHORUS (BEAKER) (test sdzn=812) 4.1 mg/dL 2.3-4.7 [id number] 12:41:00 Test Item Value Reference Range Comments SODIUM (BEAKER) (test eoca=494) 138 meq/L 136-145 [id number] 12:41:00 Test Item Value Reference Range Comments GLUCOSE RANDOM (BEAKER) (test rsbn=562) 282 mg/dL 70-105 RAD, CHEST, 1 VIEW, NON [id number] 12:40:00Reason for exam:->s/p cardiac surgeryShould this be [...] Michelle MDReportVerified Date/Time: 10/23/2017 12:40:37 Reading Location: [facility] Radiology Reading Room LACTIC ACID, ARTERIAL, WHOLE [id number] 12:37:00 Test Item Value Reference Range Comments LACTATE BLOOD ARTERIAL (2) (BEAKER) (test 1.3 mmol/L 0.5-2.2 ilgt=1352) Effective 10/18/2015: Units/Reference Range ChangeNew: 0.5-2.2 mmol/L Previous: 5 -20 mg/dLPROTHROMBIN [id number] 12:36:00 Test Item Value Reference Range Comments PROTIME (BEAKER) (test ammn=008) 16.1 seconds 11.7-14.7 INR (BEAKER) (test hqvj=538) 1.3 <=5.9 RECOMMENDED COUMADIN/WARFARIN INR THERAPY RANGESSTANDARD DOSE: 2.0 - 3.0 Includes: PROPHYLAXIS forvenous thrombosis, systemic embolization; TREATMENT for venous thrombosis and/or pulmonary embolus.HIGH RISK: Target INR is 2.5-3.5 for patients with mechanical heart valves.[id number] 12:36:00 Test Item Value Reference Range Comments FIBRINOGEN LEVEL (BEAKER) (test jmno=154) 206 mg/dl 225-434 [id number] 12:36:00 Test Item Value Reference Range Comments PARTIAL THROMBOPLASTIN TIME (BEAKER) (test 32.0 seconds 22.5-36.0 uqwr=952) BLOOD GAS, [id number] 12:25:00 Test Item Value Reference Range Comments PH ARTERIAL (BEAKER) (test zyij=303) 7.33 7.35-7.45 PCO2 ARTERIAL (BEAKER) (test irrj=324) 37 mmHg 35-45 PO2 ARTERIAL (BEAKER) (test aecp=592) 218 mmHg 80-90 O2 SATURATION ARTERIAL (BEAKER) (test xbeb=207) 99.4 % 96.0-97.0 HCO3 ARTERIAL (BEAKER) (test pssk=633) 19 mmol/L 21-29 BASE EXCESS ARTERIAL (BEAKER) (test yqsi=075) -6.1 mmol/L -2.0-3.0 PATIENT TEMPERATURE (BEAKER) (test awto=4282) 36.5 C FIO2 (BEAKER) (test mpir=6133) 60.0 % GLUCOSE-STAT [id number] 12:25:00 Test Item Value Reference Range Comments GLUCOSE RANDOM (BEAKER) (test fsth=991) 243 mg/dL 70-110 HGB/HCT (H&H) - STAT [id number] 12:25:00 Test Item Value Reference Range Comments HEMOGLOBIN (BEAKER) (test rjdg=704) 10.9 g/dL 13.0-16.8 HEMATOCRIT (BEAKER) (test hnkr=008) 32.0 % 40.0-50.0 CALCIUM, [id number] 12:25:00 Test Item Value Reference Range Comments CALCIUM IONIZED (BEAKER) (test ovqz=808) 1.28 mmol/L 1.12-1.27 PH, BLOOD (BEAKER) (test cuht=6972) 7.33 OXYGEN SATURATION, [id number] 12:25:00 Test Item Value Reference Range Comments O2 SATURATION (MEASURED) (BEAKER) (test luuq=5117) 85.6 % From distal port of IJ central venous catheterCBC W/PLT COUNT & AUTO [id number] 12:24:00 Test Item Value Reference Range Comments WHITE BLOOD CELL COUNT (BEAKER) (test taqk=335) 14.7 K/ L 3.5-10.5 RED BLOOD CELL COUNT (BEAKER) (test vnsj=609) 3.74 M/ L 4.63-6.08 HEMOGLOBIN (BEAKER) (test umsp=980) 10.3 GM/DL 13.7-17.5 HEMATOCRIT (BEAKER) (test oqgl=067) 33.2 % 40.1-51.0 MEAN CORPUSCULAR VOLUME (BEAKER) (test ycta=064) 88.8 fL 79.0-92.2 MEAN CORPUSCULAR HEMOGLOBIN (BEAKER) (test 27.5 pg 25.7-32.2 kwly=533) MEAN CORPUSCULAR HEMOGLOBIN CONC (BEAKER) (test 31.0 GM/DL 32.3-36.5 xsmp=780) RED CELL DISTRIBUTION WIDTH (BEAKER) (test 15.8 % 11.6-14.4 iifm=748) PLATELET COUNT (BEAKER) (test adzf=026) 138 K/CU MM 150-450 MEAN PLATELET VOLUME (BEAKER) (test argn=367) 11.5 fL 9.4-12.4 NUCLEATED RED BLOOD CELLS (BEAKER) (test 0 /100 WBC 0-0 vzdb=127) NEUTROPHILS RELATIVE PERCENT (BEAKER) (test 63 % qojx=975) LYMPHOCYTES RELATIVE PERCENT (BEAKER) (test 28 % qcgq=297) MONOCYTES RELATIVE PERCENT (BEAKER) (test 6 % npyk=185) EOSINOPHILS RELATIVE PERCENT (BEAKER) (test 1 % uhyq=825) BASOPHILS RELATIVE PERCENT (BEAKER) (test 1 % bbui=963) NEUTROPHILS ABSOLUTE COUNT (BEAKER) (test 9.30 K/ L 1.78-5.38 knte=422) LYMPHOCYTES ABSOLUTE COUNT (BEAKER) (test 4.14 K/ L 1.32-3.57 shfg=126) MONOCYTES ABSOLUTE COUNT (BEAKER) (test 0.87 K/ L 0.30-0.82 ydwu=305) EOSINOPHILS ABSOLUTE COUNT (BEAKER) (test 0.21 K/ L 0.04-0.54 gktg=680) BASOPHILS ABSOLUTE COUNT (BEAKER) (test 0.07 K/ L 0.01-0.08 hyss=832) IMMATURE GRANULOCYTES-RELATIVE PERCENT (BEAKER) 1 % 0-1 (test uvxj=0775) POTASSIUM-STAT [id number] 12:24:00 Test Item Value Reference Range Comments POTASSIUM (BEAKER) (test wroi=484) 3.9 meq/L 3.6-5.5 [id number] 11:30:00 Test Item Value Reference Range Comments ACTIVATED CLOTTING TIME 114 sec TESTED AT [address] [facility] (test vhuc=390) [place] [address] [id number] 11:30:00 Test Item Value Reference Range Comments ACTIVATED CLOTTING TIME 472 sec TESTED AT [address] (BEAKER) (test imqr=419) [place] [address] [id number] 11:30:00 Test Item Value Reference Range Comments ACTIVATED CLOTTING TIME 428 sec TESTED AT [address] (BEAKER) (test rbgs=554) [place] [address] [id number] 11:30:00 Test Item Value Reference Range Comments ACTIVATED CLOTTING TIME 411 sec TESTED AT [address] (BEAKER) (test mtpm=341) [place] [address] [id number] 11:30:00 Test Item Value Reference Range Comments ACTIVATED CLOTTING TIME 153 sec TESTED AT [address] [facility] (test tspz=347) [place] [address] THROMBOELASTOGRAPH ([id number] 11:07:00 Test Item Value Reference Range Comments TEG ACTIVATED CLOTTING TIME (BEAKER) (test 7.2 minutes 4.0-7.0 zctt=4497) TEG FIBRINOGEN ACTIVITY ([facility]) (test 64.0 degrees 61.0-73.0 yhlr=3941) TEG PLT. AGGREGATION (BEAKER) (test xilo=5172) 39.7 MM 55.0-65.0 TGH ACTIVATED CLOTTING TIME (BEAKER) (test 7.5 minutes 4.0-7.0 uynh=5778) TGH FIBRINOGEN ACTIVITY (BEAKER) (test 66.0 degrees 61.0-73.0 xjef=4927) TGH PLT. AGGREGATION (BEAKER) (test ddwe=0078) 58.6 MM 55.0-65.0 [id number] 10:42:00 Test Item Value Reference Range Comments FIBRINOGEN LEVEL (BEAKER) (test cnvh=872) 181 mg/dl 225-434 [id number] 10:37:00 Test Item Value Reference Range Comments PARTIAL THROMBOPLASTIN TIME (BEAKER) (test 37.9 seconds 22.5-36.0 wnqy=930) PROTHROMBIN [id number] 10:36:00 Test Item Value Reference Range Comments PROTIME (BEAKER) (test cegg=530) 18.7 seconds 11.7-14.7 INR (BEAKER) (test adqu=074) 1.6 <=5.9 RECOMMENDED COUMADIN/WARFARIN INR THERAPY RANGESSTANDARD DOSE: 2.0 - 3.0 Includes: PROPHYLAXIS forvenous thrombosis, systemic embolization; TREATMENT for venous thrombosis and/or pulmonary embolus.HIGH RISK: Target INR is 2.5-3.5 for patients with mechanical heart valves.PLATELET [id number] 10:30:00 Test Item Value Reference Range Comments PLATELET COUNT (BEAKER) (test qzdl=252) 80 K/CU MM 150-450 BLOOD GAS, [id number] 10:21:00 Test Item Value Reference Range Comments PH ARTERIAL (BEAKER) (test csog=871) 7.35 7.35-7.45 PCO2 ARTERIAL (BEAKER) (test ghhy=629) 45 mmHg 35-45 PO2 ARTERIAL (BEAKER) (test owgu=586) 358 mmHg 80-90 O2 SATURATION ARTERIAL (BEAKER) (test gsek=590) 99.8 % 96.0-97.0 HCO3 ARTERIAL (BEAKER) (test lrpv=431) 25 mmol/L 21-29 BASE EXCESS ARTERIAL (BEAKER) (test fmuv=257) -1.4 mmol/L -2.0-3.0 PATIENT TEMPERATURE (BEAKER) (test klpp=4196) 36.0 C FIO2 (BEAKER) (test zvnh=3179) 100.0 % SODIUM NA-STAT [id number] 10:21:00 Test Item Value Reference Range Comments SODIUM (BEAKER) (test kcqs=845) 133 meq/L 135-148 POTASSIUM-STAT [id number] 10:21:00 Test Item Value Reference Range Comments POTASSIUM (BEAKER) (test wyxk=930) 5.6 meq/L 3.6-5.5 GLUCOSE-STAT [id number] 10:21:00 Test Item Value Reference Range Comments GLUCOSE RANDOM (BEAKER) (test eabz=457) 127 mg/dL 70-110 HGB/HCT (H&H) - STAT [id number] 10:21:00 Test Item Value Reference Range Comments HEMOGLOBIN (BEAKER) (test mmbz=257) 8.7 g/dL 13.0-16.8 HEMATOCRIT (BEAKER) (test pwwz=197) 26.0 % 40.0-50.0 CALCIUM, [id number] 10:21:00 Test Item Value Reference Range Comments CALCIUM IONIZED (BEAKER) (test ydep=032) 1.05 mmol/L 1.12-1.27 PH, BLOOD (BEAKER) (test cqnk=6937) 7.34 POTASSIUM-STAT [id number] 09:58:00 Test Item Value Reference Range Comments POTASSIUM (BEAKER) (test maqs=450) 6.0 meq/L 3.6-5.5 SPECIMEN NOT HEMOLYZED CALCIUM, [id number] 09:57:00 Test Item Value Reference Range Comments CALCIUM IONIZED (BEAKER) (test hypl=284) 0.79 mmol/L 1.12-1.27 PH, BLOOD (BEAKER) (test yloc=7728) 7.30 BLOOD GAS, [id number] 09:53:00 Test Item Value Reference Range Comments PH ARTERIAL (BEAKER) (test slte=902) 7.32 7.35-7.45 PCO2 ARTERIAL (BEAKER) (test hcyh=136) 40 mmHg 35-45 PO2 ARTERIAL (BEAKER) (test rhyy=165) 259 mmHg 80-90 O2 SATURATION ARTERIAL (BEAKER) (test ctas=868) 99.6 % 96.0-97.0 HCO3 ARTERIAL (BEAKER) (test intx=531) 21 mmol/L 21-29 BASE EXCESS ARTERIAL (BEAKER) (test dukt=564) -5.4 mmol/L -2.0-3.0 PATIENT TEMPERATURE (BEAKER) (test uslm=5011) 34.9 C FIO2 (BEAKER) (test sheg=7560) 70.0 % SODIUM NA-STAT [id number] 09:53:00 Test Item Value Reference Range Comments SODIUM (BEAKER) (test fmtr=079) 132 meq/L 135-148 GLUCOSE-STAT [id number] 09:53:00 Test Item Value Reference Range Comments GLUCOSE RANDOM (BEAKER) (test gcna=483) 121 mg/dL 70-110 HGB/HCT (H&H) - STAT [id number] 09:53:00 Test Item Value Reference Range Comments HEMOGLOBIN (BEAKER) (test oogw=726) 7.1 g/dL 13.0-16.8 HEMATOCRIT (BEAKER) (test ajaq=744) 21.0 % 40.0-50.0 SODIUM NA-STAT [id number] 09:39:00 Test Item Value Reference Range Comments SODIUM (BEAKER) (test tjxx=515) 136 meq/L 135-148 POTASSIUM-STAT [id number] 09:39:00 Test Item Value Reference Range Comments POTASSIUM (BEAKER) (test nzfo=564) 5.5 meq/L 3.6-5.5 BLOOD GAS, [id number] 09:39:00 Test Item Value Reference Range Comments PH ARTERIAL (BEAKER) (test jdhl=922) 7.39 7.35-7.45 PCO2 ARTERIAL (BEAKER) (test jnyh=413) 36 mmHg 35-45 PO2 ARTERIAL (BEAKER) (test vqow=921) 211 mmHg 80-90 O2 SATURATION ARTERIAL (BEAKER) (test aoks=918) 99.4 % 96.0-97.0 HCO3 ARTERIAL (BEAKER) (test llpv=617) 24 mmol/L 21-29 BASE EXCESS ARTERIAL (BEAKER) (test demk=954) -3.3 mmol/L -2.0-3.0 PATIENT TEMPERATURE (BEAKER) (test gtti=9660) 28.0 C FIO2 (BEAKER) (test ovih=6472) 60.0 % GLUCOSE-STAT [id number] 09:39:00 Test Item Value Reference Range Comments GLUCOSE RANDOM (BEAKER) (test qfqd=094) 122 mg/dL 70-110 HGB/HCT (H&H) - STAT [id number] 09:39:00 Test Item Value Reference Range Comments HEMOGLOBIN (BEAKER) (test zuuk=926) 6.4 g/dL 13.0-16.8 HEMATOCRIT (BEAKER) (test khom=751) 19.0 % 40.0-50.0 SODIUM NA-STAT [id number] 07:56:00 Test Item Value Reference Range Comments SODIUM (BEAKER) (test pdki=173) 140 meq/L 135-148 POTASSIUM-STAT [id number] 07:56:00 Test Item Value Reference Range Comments POTASSIUM (BEAKER) (test eqwg=291) 4.2 meq/L 3.6-5.5 BLOOD GAS, [id number] 07:56:00 Test Item Value Reference Range Comments PH ARTERIAL (BEAKER) (test qrra=268) 7.32 7.35-7.45 PCO2 ARTERIAL (BEAKER) (test jdlc=022) 52 mmHg 35-45 PO2 ARTERIAL (BEAKER) (test wxmi=557) 200 mmHg 80-90 O2 SATURATION ARTERIAL (BEAKER) (test tiiv=332) 99.3 % 96.0-97.0 HCO3 ARTERIAL (BEAKER) (test ubqa=048) 26 mmol/L 21-29 BASE EXCESS ARTERIAL (BEAKER) (test uyao=998) -0.5 mmol/L -2.0-3.0 PATIENT TEMPERATURE (BEAKER) (test ukhq=7818) 36.0 C FIO2 (BEAKER) (test xktw=6998) 100.0 % GLUCOSE-STAT [id number] 07:56:00 Test Item Value Reference Range Comments GLUCOSE RANDOM (BEAKER) (test qwtb=973) 137 mg/dL 70-110 HGB/HCT (H&H) - STAT [id number] 07:56:00 Test Item Value Reference Range Comments HEMOGLOBIN (BEAKER) (test jaeo=956) 10.5 g/dL 13.0-16.8 HEMATOCRIT (BEAKER) (test ggjg=160) 31.0 % 40.0-50.0 GLUCOSE-STAT [id number] 06:33:00 Test Item Value Reference Range Comments GLUCOSE RANDOM (BEAKER) (test umny=549) 122 mg/dL 70-110 HGB/HCT (H&H) - STAT [id number] 06:33:00 Test Item Value Reference Range Comments HEMOGLOBIN (BEAKER) (test aptw=720) 11.4 g/dL 13.0-16.8 HEMATOCRIT (BEAKER) (test azjz=353) 34.0 % 40.0-50.0 POTASSIUM-STAT [id number] 06:32:00 Test Item Value Reference Range Comments POTASSIUM (BEAKER) (test tzdd=672) 4.2 meq/L 3.6-5.5 RAD, CHEST, 2 [id number] 11:29:00Reason for Exam:->Pre-OpFINAL REPORT Chest 2 views 10/21/2017 11:28 AM CLINICAL HISTORY: Pre-Op , chest pain COMPARISON: 08/07/2017 FINDINGS: The lungs are clear. Cardiomediastinal contours are within normal limits. The central pulmonary vasculature is not engorged. A right hemodialysis catheter is present.The visualized skeleton is intact. IMPRESSION: No acute radiographic abnormalities. Signed: González Michelle Verified Date/Time: 10/21/2017 11:29:02 Reading Location: [facility] Radiology Reading Room COMPREHENSIVE METABOLIC [id number] 11:23:00 Test Item Value Reference Range Comments TOTAL PROTEIN (BEAKER) 7.1 gm/dL 6.0-8.3 (test ypgb=469) ALBUMIN (BEAKER) (test 4.2 g/dL 3.5-5.0 gbqq=4352) ALKALINE PHOSPHATASE 44 U/L 40-150 (BEAKER) (test xshg=767) BILIRUBIN TOTAL (BEAKER) 0.3 mg/dL 0.2-1.2 (test dgrm=287) SODIUM (BEAKER) (test 137 meq/L 136-145 buma=537) POTASSIUM (BEAKER) (test 4.9 meq/L 3.5-5.1 dmew=000) CHLORIDE (BEAKER) (test 102 meq/L 98-107 sodp=033) CO2 (BEAKER) (test 24 meq/L 22-29 cehu=376) BLOOD UREA NITROGEN 42 mg/dL 7-21 (BEAKER) (test tyia=964) CREATININE (BEAKER) (test 5.38 mg/dL 0.57-1.25 bywn=922) GLUCOSE RANDOM (BEAKER) 132 mg/dL 70-105 (test upee=974) CALCIUM (BEAKER) (test 8.5 mg/dL 8.4-10.2 nojd=924) AST (SGOT) (BEAKER) (test 14 U/L 5-34 olre=830) ALT (SGPT) (BEAKER) (test 10 U/L 6-55 pkbg=810) EGFR (BEAKER) (test 13 mL/min/1.73 sq m ESTIMATED GFR IS NOT qnsf=8524) ACCURATE CREATININE CLEARANCE IN PREDICTING GLOMERULAR FILTRATION RATE. ESTIMATED GFR IS NOT APPLICABLE FOR DIALYSIS PATIENTS. CREATINE KINASE (CK)2017-10-21 11:20:00 Test Item Value Reference Range Comments CREATINE KINASE TOTAL (BEAKER) (test ttcp=698) 108 U/L 29-200 [id number] 11:09:00 Test Item Value Reference Range Comments FIBRINOGEN LEVEL (BEAKER) (test btds=746) 337 mg/dl 225-434 [id number] 11:09:00 Test Item Value Reference Range Comments PROTIME (BEAKER) (test exrl=455) 13.7 seconds 11.7-14.7 INR (BEAKER) (test hlzm=269) 1.1 <=5.9 PARTIAL THROMBOPLASTIN TIME (BEAKER) (test 33.1 seconds 22.5-36.0 kknp=939) RECOMMENDED COUMADIN/WARFARIN INR THERAPY RANGESSTANDARD DOSE: 2.0 - 3.0 Includes: PROPHYLAXIS forvenous thrombosis, systemic embolization; TREATMENT for venous thrombosis and/or pulmonary embolus.HIGH RISK: Target INR is 2.5-3.5 for patients with mechanical heart valves.CBC W/PLT COUNT & AUTO [id number] 10:47:00 Test Item Value Reference Range Comments WHITE BLOOD CELL COUNT (BEAKER) (test drwj=678) 5.4 K/ L 3.5-10.5 RED BLOOD CELL COUNT (BEAKER) (test dhab=595) 3.58 M/ L 4.63-6.08 HEMOGLOBIN (BEAKER) (test trij=134) 9.9 GM/DL 13.7-17.5 HEMATOCRIT (BEAKER) (test rfhw=593) 32.9 % 40.1-51.0 MEAN CORPUSCULAR VOLUME (BEAKER) (test zhcd=707) 91.9 fL 79.0-92.2 MEAN CORPUSCULAR HEMOGLOBIN (BEAKER) (test 27.7 pg 25.7-32.2 xwzl=735) MEAN CORPUSCULAR HEMOGLOBIN CONC (BEAKER) (test 30.1 GM/DL 32.3-36.5 pauk=835) RED CELL DISTRIBUTION WIDTH (BEAKER) (test 13.8 % 11.6-14.4 xaej=952) PLATELET COUNT (BEAKER) (test rcbx=261) 188 K/CU MM 150-450 MEAN PLATELET VOLUME (BEAKER) (test hega=796) 11.6 fL 9.4-12.4 NUCLEATED RED BLOOD CELLS (BEAKER) (test 0 /100 WBC 0-0 kizv=282) NEUTROPHILS RELATIVE PERCENT (BEAKER) (test 52 % uwqh=410) LYMPHOCYTES RELATIVE PERCENT (BEAKER) (test 35 % sjpn=812) MONOCYTES RELATIVE PERCENT (BEAKER) (test 7 % ywyi=396) EOSINOPHILS RELATIVE PERCENT (BEAKER) (test 4 % mpfj=139) BASOPHILS RELATIVE PERCENT (BEAKER) (test 1 % omwd=325) NEUTROPHILS ABSOLUTE COUNT (BEAKER) (test 2.82 K/ L 1.78-5.38 nwhm=816) LYMPHOCYTES ABSOLUTE COUNT (BEAKER) (test 1.88 K/ L 1.32-3.57 iacp=109) MONOCYTES ABSOLUTE COUNT (BEAKER) (test 0.40 K/ L 0.30-0.82 azyi=234) EOSINOPHILS ABSOLUTE COUNT (BEAKER) (test 0.22 K/ L 0.04-0.54 rvlf=013) BASOPHILS ABSOLUTE COUNT (BEAKER) (test 0.07 K/ L 0.01-0.08 cviv=112) IMMATURE GRANULOCYTES-RELATIVE PERCENT (BEAKER) 0 % 0-1 (test ceqa=2336) BASIC METABOLIC [id number] 12:45:00 Test Item Value Reference Range Comments SODIUM (BEAKER) (test 139 meq/L 136-145 htfc=628) POTASSIUM (BEAKER) (test 5.2 meq/L 3.5-5.1 gnwg=553) CHLORIDE (BEAKER) (test 103 meq/L 98-107 qgdu=874) CO2 (BEAKER) (test 26 meq/L 22-29 kazb=731) BLOOD UREA NITROGEN 40 mg/dL 7-21 (BEAKER) (test mwuh=557) CREATININE (BEAKER) (test 5.47 mg/dL 0.57-1.25 sjks=928) GLUCOSE RANDOM (BEAKER) 115 mg/dL 70-105 (test zril=885) CALCIUM (BEAKER) (test 9.3 mg/dL 8.4-10.2 wbbh=137) EGFR (BEAKER) (test 13 mL/min/1.73 sq m ESTIMATED GFR IS NOT jdao=7893) ACCURATE CREATININE CLEARANCE IN PREDICTING GLOMERULAR FILTRATION RATE. ESTIMATED GFR IS NOT APPLICABLE FOR DIALYSIS PATIENTS. [id number] 12:24:00 Test Item Value Reference Range Comments PROTIME (BEAKER) (test jskl=572) 14.0 seconds 11.7-14.7 INR (BEAKER) (test vrgp=596) 1.1 <=5.9 PARTIAL THROMBOPLASTIN TIME (BEAKER) (test 32.4 seconds 22.5-36.0 ltcr=123) RECOMMENDED COUMADIN/WARFARIN INR THERAPY RANGESSTANDARD DOSE: 2.0 - 3.0 Includes: PROPHYLAXIS forvenous thrombosis, systemic embolization; TREATMENT for venous thrombosis and/or pulmonary embolus.HIGH RISK: Target INR is 2.5-3.5 for patients with mechanical heart valves.CBC W/PLT COUNT & AUTO [id number] 12:06:00 Test Item Value Reference Range Comments WHITE BLOOD CELL COUNT (BEAKER) (test wkpj=154) 6.3 K/ L 3.5-10.5 RED BLOOD CELL COUNT (BEAKER) (test gifk=391) 3.73 M/ L 4.63-6.08 HEMOGLOBIN (BEAKER) (test mpqj=198) 10.4 GM/DL 13.7-17.5 HEMATOCRIT (BEAKER) (test ivky=896) 34.8 % 40.1-51.0 MEAN CORPUSCULAR VOLUME (BEAKER) (test evjx=649) 93.3 fL 79.0-92.2 MEAN CORPUSCULAR HEMOGLOBIN (BEAKER) (test 27.9 pg 25.7-32.2 qmvv=533) MEAN CORPUSCULAR HEMOGLOBIN CONC (BEAKER) (test 29.9 GM/DL 32.3-36.5 csao=197) RED CELL DISTRIBUTION WIDTH (BEAKER) (test 14.0 % 11.6-14.4 mnol=475) PLATELET COUNT (BEAKER) (test pvgq=490) 157 K/CU MM 150-450 MEAN PLATELET VOLUME (BEAKER) (test dhbq=707) 12.5 fL 9.4-12.4 NUCLEATED RED BLOOD CELLS (BEAKER) (test 0 /100 WBC 0-0 atij=005) NEUTROPHILS RELATIVE PERCENT (BEAKER) (test 45 % hqyp=826) LYMPHOCYTES RELATIVE PERCENT (BEAKER) (test 40 % mxoc=613) MONOCYTES RELATIVE PERCENT (BEAKER) (test 10 % aqnv=325) EOSINOPHILS RELATIVE PERCENT (BEAKER) (test 4 % pqad=273) BASOPHILS RELATIVE PERCENT (BEAKER) (test 1 % wkka=489) NEUTROPHILS ABSOLUTE COUNT (BEAKER) (test 2.86 K/ L 1.78-5.38 cadt=976) LYMPHOCYTES ABSOLUTE COUNT (BEAKER) (test 2.51 K/ L 1.32-3.57 nrsa=527) MONOCYTES ABSOLUTE COUNT (BEAKER) (test 0.62 K/ L 0.30-0.82 kjke=941) EOSINOPHILS ABSOLUTE COUNT (BEAKER) (test 0.25 K/ L 0.04-0.54 pcwn=858) BASOPHILS ABSOLUTE COUNT (BEAKER) (test 0.06 K/ L 0.01-0.08 dbmb=867) IMMATURE GRANULOCYTES-RELATIVE PERCENT (BEAKER) 0 % 0-1 (test pcas=9505) HEMOGLOBIN [id number] 14:41:00 Test Item Value Reference Range Comments HEMOGLOBIN A1C (BEAKER) (test xlpg=937) 7.0 % 4.3-6.1 HIV-1 ANTIGEN WITH HIV-1/2 [id number] 10:23:00 Test Item Value Reference Range Comments HIV-1 ANTIGEN WITH HIV 1\T\2 ANTIBODY (2) Nonreactive Nonreactive (BEAKER) (test bydu=0777) FL, CYSTOGRAM, CINE OR VIDEO, [id number] 10:05:00Reason for Exam:->esrd ; eval for renal [...] dose (Ka,r): 33.3 mGy Signed : Kimberly Duarteeport Verified Date/Time: 08/07/2017 10:05:30 Reading Location: [address] Radiology Reading Room U/S, ABDOMINAL, [id number] 09:58: 00Reason for Exam:->esrd; eval for renal [...] renal failure. Otherwise unremarkable study. Signed: Kimberly Duarteort Verified Date/Time: 08/07/2017 09:58:47 Reading Location: [address] Radiology Reading Room [id number] 09:20:00 Test Item Value Reference Range Comments PROSTATE SPECIFIC ANTIGEN (BEAKER) (test mwdb=133) 6.7 ng/mL 0.0-4.0 RAD, CHEST, 2 [id number] 09:11:00Reason for Exam:->esrd; eval for renal txpFINAL REPORT CHEST PA AND LATERAL History provided: Evaluation for renal transplantation Comparison studies: None Heart size normal. Lungs are mildly hyperexpanded but clear, andvascularity normal. Numerous right healed rib fractures. IMPRESSION: Clear chest. Signed: Kimberly Duarteeport Verified Date/Time: 08/07/2017 09:11:05 Reading Location: [address] Radiology Reading Room LIPID [id number] 08:38:00 Test Item Value Reference Range Comments TRIGLYCERIDES (BEAKER) (test gvls=732) 179 mg/dL CHOLESTEROL (BEAKER) (test lgiq=016) 225 mg/dL HDL CHOLESTEROL (BEAKER) (test hzmw=077) 51 mg/dL LDL CHOLESTEROL CALCULATED (BEAKER) (test 138 mg/dL mxgq=884) Triglyceride Reference Range: Low Risk <150 Borderline 150- 199 High Risk 200-499 Very High Risk >=500Cholesterol Reference Range: Low Risk <200 Borderline 200-239 High Risk > 240HDL Cholesterol Reference Range: Low Risk >=60 High Risk <40LDL Cholesterol Reference Range: Optimal <100 Near Optimal 100-129 Borderline 130-159 High 160-189 Very High >=190URINE [id number] 13:31:00 Test Item Value Reference Range Comments CULTURE (BEAKER) (test afpd=5998) <10,000 col/mL skin markos CYTOMEGALOVIRUS ANTIBODY, [id number] 07:58:00 Test Item Value Reference Range Comments CYTOMEGALOVIRUS IGG ANTIBODY (BEAKER) (test Positive ujkv=823) CYTOMEGALOVIRUS ANTIBODY, [id number] 07:58:00 Test Item Value Reference Range Comments CYTOMEGALOVIRUS IGM ANTIBODY (BEAKER) (test Positive vjwg=169) EBV-VCA ANTIBODY, [id number] 07:58:00 Test Item Value Reference Range Comments DONTAE-ESPINOSA VCA IGG (BEAKER) (test jnzm=215) Positive EBV-VCA ANTIBODY, [id number] 07:58:00 Test Item Value Reference Range Comments DONTAE-ESPINOSA VCA IGM (BEAKER) (test ovle=088) Negative VARICELLA ZOSTER ANTIBODY, [id number] 07:32:00 Test Item Value Reference Range Comments VARICELLA ZOSTER IGG (AL) (BEAKER) (test dtii=7951) 3.5 Al VARICELLA ZOSTER RESULT INTERPRETATIONS: <=0.8 Al Nonreactive: Presumed non-immune to VZV 0.9-1.0 Al Equivocal >=1.1 Al Reactive: Presumed immune to [id number] 05:27:00 Test Item Value Reference Range Comments RPR SCREEN (BEAKER) (test bldh=069) Nonreactive Nonreactive HEMOGLOBIN [id number] 14:09:00 Test Item Value Reference Range Comments HEMOGLOBIN A1C (BEAKER) (test omnv=113) 7.0 % 4.3-6.1 COMPREHENSIVE METABOLIC [id number] 11:41:00 Test Item Value Reference Range Comments TOTAL PROTEIN (BEAKER) 7.8 gm/dL 6.0-8.3 (test dmpb=205) ALBUMIN (BEAKER) (test 4.4 g/dL 3.5-5.0 mloj=2259) ALKALINE PHOSPHATASE 51 U/L 40-150 (BEAKER) (test qbml=155) BILIRUBIN TOTAL (BEAKER) 0.3 mg/dL 0.2-1.2 (test xbhe=047) SODIUM (BEAKER) (test 139 meq/L 136-145 ttzg=048) POTASSIUM (BEAKER) (test 5.2 meq/L 3.5-5.1 mgfr=751) CHLORIDE (BEAKER) (test 106 meq/L 98-107 xbcm=156) CO2 (BEAKER) (test 24 meq/L 22-29 vaob=582) BLOOD UREA NITROGEN 29 mg/dL 7-21 (BEAKER) (test iihn=469) CREATININE (BEAKER) (test 5.60 mg/dL 0.57-1.25 blgu=451) GLUCOSE RANDOM (BEAKER) 132 mg/dL 70-105 (test mjnb=090) CALCIUM (BEAKER) (test 9.1 mg/dL 8.4-10.2 wtlk=126) AST (SGOT) (BEAKER) (test 9 U/L 5-34 giob=382) ALT (SGPT) (BEAKER) (test 8 U/L 6-55 twdj=466) EGFR (BEAKER) (test 12 mL/min/1.73 sq m ESTIMATED GFR IS NOT jxxm=3266) ACCURATE CREATININE CLEARANCE IN PREDICTING GLOMERULAR FILTRATION RATE. ESTIMATED GFR IS NOT APPLICABLE FOR DIALYSIS PATIENTS. URIC [id number] 11:32:00 Test Item Value Reference Range Comments URIC ACID (BEAKER) (test oota=858) 3.5 mg/dL 2.6-7.2 [id number] 11:32:00 Test Item Value Reference Range Comments PHOSPHORUS (BEAKER) (test eslb=698) 4.0 mg/dL 2.3-4.7 GAMMA GLUTAMYL TRANSFERASE (GGT)[id number] 11:32:00 Test Item Value Reference Range Comments GAMMA GLUTAMYL TRANSFERASE (BEAKER) (test atpi=646) 27 U/L 9-64 LACTATE DEHYDROGENASE (LDH)2017-05-13 11:32:00 Test Item Value Reference Range Comments LACTATE DEHYDROGENASE (BEAKER) (test bolm=061) 229 U/L 125-220 [id number] 10:15:00 Test Item Value Reference Range Comments PROSTATE SPECIFIC ANTIGEN (BEAKER) (test qkvv=019) 5.7 ng/mL 0.0-4.0 HEPATITIS B SURFACE [id number] 10:15:00 Test Item Value Reference Range Comments HEPATITIS B SURFACE ANTIGEN (2) (BEAKER) (test Nonreactive Nonreactive wtcm=6020) HEPATITIS B SURFACE [id number] 10:15:00 Test Item Value Reference Range Comments HEPATITIS B SURFACE ANTIBODY (BEAKER) (test 195.7 mIU/mL <8.0 urqm=676) HEPATITIS B CORE ANTIBODY, [id number] 10:15:00 Test Item Value Reference Range Comments HEPATITIS B CORE IGM ANTIBODY (BEAKER) (test Nonreactive Nonreactive emjh=573) HEPATITIS C [id number] 10:15:00 Test Item Value Reference Range Comments HEPATITIS C ANTIBODY (BEAKER) (test qytf=421) Nonreactive Nonreactive URINALYSIS W/ [id number] 10:12:00 Test Item Value Reference Range Comments COLOR (BEAKER) (test ecqr=891) Yellow CLARITY (BEAKER) (test hnrp=828) Clear SPECIFIC GRAVITY UA (BEAKER) (test odch=071) 1.015 1.001-1.035 PH UA (BEAKER) (test lqvn=146) 5.5 5.0-8.0 PROTEIN UA (BEAKER) (test cuvt=756) 300 mg/dL Negative GLUCOSE UA (BEAKER) (test vkfp=867) Negative Negative KETONES UA (BEAKER) (test iwij=466) Negative Negative BILIRUBIN UA (BEAKER) (test lbgp=611) Negative Negative BLOOD UA (BEAKER) (test vrbp=983) Trace Negative NITRITE UA (BEAKER) (test mxzp=471) Negative Negative LEUKOCYTE ESTERASE UA (BEAKER) (test quos=904) Negative Negative UROBILINOGEN UA (BEAKER) (test scul=279) 0.2 mg/dL 0.2-1.0 RBC UA (BEAKER) (test pkoy=925) 0 /HPF WBC UA (BEAKER) (test lxwv=678) 1 /HPF BACTERIA (BEAKER) (test qmwp=053) Rare MUCUS (BEAKER) (test zhby=9527) Rare SQUAMOUS EPITHELIAL (BEAKER) (test bjic=632) 1 /HPF HYALINE CASTS (BEAKER) (test svaj=037) 14 /LPF SOURCE(BEAKER) (test jcgo=9491) PTH, [id number] 09:29:00 Test Item Value Reference Range Comments PARATHYROID HORMONE INTACT (BEAKER) (test 189.9 pg/mL 8.5-72.5 vkyu=682) [id number] 09:09:00 Test Item Value Reference Range Comments PROTIME (BEAKER) (test nwlw=186) 13.8 seconds 11.7-14.7 INR (BEAKER) (test aqev=227) 1.1 <=5.9 PARTIAL THROMBOPLASTIN TIME (BEAKER) (test 35.7 seconds 22.5-36.0 zirt=093) RECOMMENDED COUMADIN/WARFARIN INR THERAPY RANGESSTANDARD DOSE: 2.0 - 3.0 Includes: PROPHYLAXIS forvenous thrombosis, systemic embolization; TREATMENT for venous thrombosis and/or pulmonary embolus.HIGH RISK: Target INR is 2.5-3.5 for patients with mechanical heart valves.CBC W/PLT COUNT & AUTO [id number] 08:58:00 Test Item Value Reference Range Comments WHITE BLOOD CELL COUNT (BEAKER) (test rpyx=310) 5.1 K/ L 3.5-10.5 RED BLOOD CELL COUNT (BEAKER) (test zqqg=703) 4.49 M/ L 4.63-6.08 HEMOGLOBIN (BEAKER) (test uvhp=189) 12.0 GM/DL 13.7-17.5 HEMATOCRIT (BEAKER) (test rzyv=135) 41.2 % 40.1-51.0 MEAN CORPUSCULAR VOLUME (BEAKER) (test twcz=256) 91.8 fL 79.0-92.2 MEAN CORPUSCULAR HEMOGLOBIN (BEAKER) (test 26.7 pg 25.7-32.2 tgvl=415) MEAN CORPUSCULAR HEMOGLOBIN CONC (BEAKER) (test 29.1 GM/DL 32.3-36.5 bimr=807) RED CELL DISTRIBUTION WIDTH (BEAKER) (test 14.3 % 11.6-14.4 hnyq=062) PLATELET COUNT (BEAKER) (test llsp=883) 190 K/CU MM 150-450 MEAN PLATELET VOLUME (BEAKER) (test pqfc=610) 11.9 fL 9.4-12.4 NUCLEATED RED BLOOD CELLS (BEAKER) (test 0 /100 WBC 0-0 rrwq=138) NEUTROPHILS RELATIVE PERCENT (BEAKER) (test 49 % zqbg=324) LYMPHOCYTES RELATIVE PERCENT (BEAKER) (test 33 % rjbx=617) MONOCYTES RELATIVE PERCENT (BEAKER) (test 10 % aead=126) EOSINOPHILS RELATIVE PERCENT (BEAKER) (test 5 % hgrb=269) BASOPHILS RELATIVE PERCENT (BEAKER) (test 2 % lvsd=389) NEUTROPHILS ABSOLUTE COUNT (BEAKER) (test 2.53 K/ L 1.78-5.38 dkbo=351) LYMPHOCYTES ABSOLUTE COUNT (BEAKER) (test 1.71 K/ L 1.32-3.57 ssgp=775) MONOCYTES ABSOLUTE COUNT (BEAKER) (test 0.51 K/ L 0.30-0.82 sbln=216) EOSINOPHILS ABSOLUTE COUNT (BEAKER) (test 0.27 K/ L 0.04-0.54 rtua=557) BASOPHILS ABSOLUTE COUNT (BEAKER) (test 0.08 K/ L 0.01-0.08 wyzn=881) IMMATURE GRANULOCYTES-RELATIVE PERCENT (BEAKER) 1 % 0-1 (test pxyy=5852)
--- NOTE | 2018-05-25 23:45 | ER ---
Nurse's Notes [facility] Name: Russ Corona Age: 67 yrs Sex: Male : 1950 Arrival Date: 05/25/2018 Time: 21:52 Bed 23 Private MD: Diagnosis: Viral Illness Presentation: 05/25 21:55 Presenting complaint: Patient states: "I started coughing real bad, I woke up about aj1 0 coughing, short of breath and when I looked at my shirt it was wet. It kind of scared me." Patient states that he has been coughing since Friday but it got worse today. Patient states that he has not checked his temperature at home, but he has been having chills and sweating. Denies pain. Transition of care: patient was not received from another setting of care. Onset of symptoms was May 25, 2018. Risk Assessment: Do you want to hurt yourself or someone else? Patient reports no desire to harm self or others. Initial Sepsis Screen: Does the patient meet any 2 criteria? No. Patient's initial sepsis screen is negative. Does the patient have a suspected source of infection? Yes: Productive cough/pneumonia. Care prior to arrival: None. 21:55 Method Of Arrival: Ambulatory aj1 21:55 Acuity: ELLI 3 aj1 Triage Assessment: 22:02 General: Appears in no apparent distress. comfortable, Behavior is calm, cooperative, aj1 appropriate for age. Pain: Denies pain. EENT: Denies nasal congestion, nasal discharge. Neuro: Level of Consciousness is awake, alert, obeys commands. Cardiovascular: Patient's skin is warm and dry. Respiratory: Reports shortness of breath cough that is hacking, persistent Airway is patent Respiratory effort is even, unlabored, Respiratory pattern is regular, symmetrical. Historical: - Allergies: 22:02 No Known Allergies; aj1 - Home Meds: 22:02 Lisinopril Oral [Active]; metoprolol tartrate 100 mg Oral tr24 1 tab once daily aj1 [Active]; rosuvastatin oral oral [Active]; Aspirin EC Oral [Active]; terazosin oral oral [Active]; Nitroglycerin SL [Active]; - PMHx: 22:02 Diabetes - NIDDM; Enlarged Heart; High Cholesterol; Hypertension; Dialysis; M,W,F; aj1 - Immunization history:: Flu vaccine is up to date. - Social history:: Smoking status: Patient/guardian denies using tobacco. - Ebola Screening: : Patient denies travel to an Ebola-affected area in the 21 days before illness onset. - Family history:: not pertinent. - Hospitalizations: : No recent hospitalization is reported. - History obtained from: . Screenin/11 00:12 Abuse screen: Denies threats or abuse. Denies injuries from another. Nutritional rv screening: No deficits noted. Tuberculosis screening: No symptoms or risk factors identified. Fall Risk None identified. Assessment: 05/25 23:00 General: Appears in no apparent distress. comfortable, Behavior is calm, appropriate rv for age. 23:00 Pain: Denies pain. Neuro: Level of Consciousness is awake, alert, obeys commands, rv Oriented to person, place, time, situation. Cardiovascular: Capillary refill < 3 seconds. Respiratory: Airway is patent. GI: No signs and/or symptoms were reported involving the gastrointestinal system. : No signs and/or symptoms were reported regarding the genitourinary system. EENT: No signs and/or symptoms were reported regarding the EENT system. Derm: Skin is intact. Musculoskeletal: No signs and/or symptoms reported regarding the musculoskeletal system. Vital Signs: 22:02 BP 151 / 86; Pulse 71; Resp 18; Temp 98.1; Pulse Ox 98% on R/A; Weight 72.57 kg (R); aj1 Height 5 ft. 7 in. (170.18 cm) (R); Pain 0/10; 22:02 Body Mass Index 25.06 (72.57 kg, 170.18 cm) aj1 ED Course: 21:52 Patient arrived in ED. ag3 21:59 Triage completed. aj1 22:02 Arm band placed on Patient placed in an exam room. aj1 22:13 Taya Woods FNP is PHCP. kav 22:13 Ubaldo Pisano MD is Attending Physician. kav 23:00 Patient has correct armband on for positive identification. Bed in low position. Call rv light in reach. Side rails up X 1. Pulse ox on. NIBP on. 23:00 Influenza Screen (a \\T\\ B) Sent. rv 05/26 00:12 No provider procedures requiring assistance completed. Patient did not have IV access rv during this emergency room visit. Administered Medications: No medications were administered Outcome: 05/25 23:44 Discharge ordered by . susanne 05/26 00:12 Discharged to home ambulatory. rv Condition: good Discharge instructions given to patient, family, Instructed on discharge instructions, follow up and referral plans. medication usage, Demonstrated understanding of instructions, follow-up care, medications, Prescriptions given X 1. 00:13 Patient left the ED. rv Signatures: Melissa Vela RN RN aj1 Taya Woods, MANAGER SQL MANAGER SQL Dax Horn RN RN Colette Ngo ag3
--- NOTE | 2018-05-25 23:46 | EDPHYS ---
Physician Documentation [facility] Name: Russ Corona Age: 67 yrs Sex: Male : 1950 Arrival Date: 05/25/2018 Time: 21:52 Bed 23 Private MD: ED Physician Ubaldo Pisano HPI: 05/25 23:11 This 67 yrs old Black Male presents to ER via Ambulatory with complaints of Fever. kav 23:11 The patient reports fever, with an emergency department temperature of 98.1 degrees kav Fahrenheit. Onset: The symptoms/episode began/occurred acutely, this morning. Modifying factors: there are no obvious modifying factors. Associated signs and symptoms: Pertinent positives: chills. Severity of symptoms: At their worst the symptoms were mild just prior to arrival. The patient has not experienced similar symptoms in the past. The patient has been recently seen by a physician: Patient reports having a Colonoscopy early this morning.. Patient reports a productive cough with dark-colored phlegm. Historical: - Allergies: 22:02 No Known Allergies; aj1 - Home Meds: 22:02 Lisinopril Oral [Active]; metoprolol tartrate 100 mg Oral tr24 1 tab once daily aj1 [Active]; rosuvastatin oral oral [Active]; Aspirin EC Oral [Active]; terazosin oral oral [Active]; Nitroglycerin SL [Active]; - PMHx: 22:02 Diabetes - NIDDM; Enlarged Heart; High Cholesterol; Hypertension; Dialysis; M,W,F; aj1 - Immunization history:: Flu vaccine is up to date. - Social history:: Smoking status: Patient/guardian denies using tobacco. - Ebola Screening: : Patient denies travel to an Ebola-affected area in the 21 days before illness onset. - Family history:: not pertinent. - Hospitalizations: : No recent hospitalization is reported. - History obtained from: . ROS: 23:13 Constitutional: Negative for fever, chills, and weight loss, Eyes: Negative for injury, kav pain, redness, and discharge, ENT: Negative for injury, pain, and discharge, Neck: Negative for injury, pain, and swelling, Cardiovascular: Negative for chest pain, palpitations, and edema, Abdomen/GI: Negative for abdominal pain, nausea, vomiting, diarrhea, and constipation, Back: Negative for injury and pain, : Negative for injury, bleeding, discharge, and swelling, MS/Extremity: Negative for injury and deformity, Skin: Negative for injury, rash, and discoloration, Neuro: Negative for headache, weakness, numbness, tingling, and seizure, Psych: Negative for depression, anxiety, suicide ideation, homicidal ideation, and hallucinations, Allergy/Immunology: Negative for hives, rash, and allergies, Endocrine: Negative for neck swelling, polydipsia, polyuria, polyphagia, and marked weight changes, Hematologic/Lymphatic: Negative for swollen nodes, abnormal bleeding, and unusual bruising. 23:13 Respiratory: Positive for cough, dark-colored sputum. Exam: 23:13 Constitutional: This is a well developed, well nourished patient who is awake, alert, kav and in no acute distress. Head/Face: Normocephalic, atraumatic. Eyes: Pupils equal round and reactive to light, extra-ocular motions intact. Lids and lashes normal. Conjunctiva and sclera are non-icteric and not injected. Cornea within normal limits. Periorbital areas with no swelling, redness, or edema. ENT: Nares patent. No nasal discharge, no septal abnormalities noted. Tympanic membranes are normal and external auditory canals are clear. Oropharynx with no redness, swelling, or masses, exudates, or evidence of obstruction, uvula midline. Mucous membranes moist. Neck: Trachea midline, no thyromegaly or masses palpated, and no cervical lymphadenopathy. Supple, full range of motion without nuchal rigidity, or vertebral point tenderness. No Meningismus. Chest/axilla: Normal chest wall appearance and motion. Nontender with no deformity. No lesions are appreciated. Cardiovascular: Regular rate and rhythm with a normal S1 and S2. No gallops, murmurs, or rubs. Normal PMI, no JVD. No pulse deficits. Abdomen/GI: Soft, non-tender, with normal bowel sounds. No distension or tympany. No guarding or rebound. No evidence of tenderness throughout. Back: No spinal tenderness. No costovertebral tenderness. Full range of motion. Skin: Warm, dry with normal turgor. Normal color with no rashes, no lesions, and no evidence of cellulitis. MS/ Extremity: Pulses equal, no cyanosis. Neurovascular intact. Full, normal range of motion. Neuro: Awake and alert, GCS 15, oriented to person, place, time, and situation. Cranial nerves II-XII grossly intact. Motor strength 5/5 in all extremities. Sensory grossly intact. Cerebellar exam normal. Normal gait. Psych: Awake, alert, with orientation to person, place and time. Behavior, mood, and affect are within normal limits. 23:13 Respiratory: the patient does not display signs of respiratory distress, Respirations: normal, no acute changes, Breath sounds: are clear throughout. Vital Signs: 22:02 BP 151 / 86; Pulse 71; Resp 18; Temp 98.1; Pulse Ox 98% on R/A; Weight 72.57 kg (R); aj1 Height 5 ft. 7 in. (170.18 cm) (R); Pain 0/10; 22:02 Body Mass Index 25.06 (72.57 kg, 170.18 cm) [facility] MDM: 22:13 Medical screening is not applicable. [facility] 23:13 Data reviewed: vital signs, nurses notes. [facility] 05/25 22:58 Order name: Influenza Screen (a \T\ B); Complete Time: 23:43 [facility] 05/25 23:43 Interpretation: Within normal limits. ka Administered Medications: No medications were administered Disposition: 05/26 06:42 Co-signature as Attending Physician, Ubaldo Pisano MD I agree with the assessment and [facility] plan of care. Disposition: 05/25/18 23:44 Discharged to Home. Impression: Viral Illness. - Condition is Stable. - Discharge Instructions: Viral Respiratory Infection. - Prescriptions for Tamiflu 75 mg Oral Capsule - take 1 tablet by ORAL route every 12 hours for 5 days; 10 tablet. - Medication Reconciliation Form, Thank You Letter, Antibiotic Education form. - Follow up: Private Physician; When: 2 - 3 days; Reason: Recheck today's complaints, Continuance of care, Re-evaluation by your physician. - Problem is new. - Symptoms are unchanged. Signatures: Dispatcher [employer] Melissa Kiran, RHINA RN aj1 Ubaldo Pisano MD MD cha Vern, Katherine, FORM SETTER METAL RO[address] FORMS FORM SETTER METAL [address] FORMS Dax Horn RN RN rv Corrections: (The following items were deleted from the chart) 00:13 05/25 23:44 05/25/2018 23:44 Discharged to Home. Impression: Viral Illness. Condition rv is Stable. Forms are Medication Reconciliation Form, Thank You Letter, Antibiotic Education, Prescription Opioid Use. Follow up: Private Physician; When: 2 - 3 days; Reason: Recheck today's complaints, Continuance of care, Re-evaluation by your physician. Problem is new. Symptoms are unchanged. kav
== END 2018-05-26 00:13 | disposition home or self-care (01) ==
LOC: ER 21:42
DX: B34.9 Viral infection, unspecified (principal); I10 Essential (primary) hypertension; E11.9 Type 2 diabetes mellitus without complications; E78.00 Pure hypercholesterolemia, unspecified; Z79.82 Long term (current) use of aspirin; Z99.2 Dependence on renal dialysis
CPT/HCPCS: 87804; 99283

== ENCOUNTER 2018-09-03 18:51 | Observation (INO) | payer OTHER ==
--- OUTSIDE RECORDS SUMMARY | 2018-09-03 18:55 | XMS REPORT | Clinical Summary ---
:1950 Author Organization [facility] Address [address] [place] [address] Care Team Providers Name Role Phone Larisa Belle [facility] Primary Care Provider Allergies No [...] Encounters Date Type Specialty Care Team Description 07/27/2018 Telephone Transplant Lucrecia Dyson RN 07/23/2018 Telephone Transplant Lucrecia Dyson RN 03/04/2018 Telephone Transplant Jeanie Schmidt Y, Follow-up RN 01/06/2018 Orders Only Lab Seth, Other iron deficiency Argelia Strauss MD anemia 01/06/2018 Orders Only Cardiology Sarah Bolden RN 01/06/2018 Orders Only Research Edna, Other iron deficiency RHINA Sosa anemia (Primary Dx) 11/18/2017 Orders Only Lab Seth, FH: CABG (coronary Argelia Strauss MD artery bypass surgery) 11/17/2017 Orders Only Research Edna, FH: CABG (josie Sosa RN artery bypass surgery) (Primary Dx) 10/23/2017 Surgery Kevin Anguiano, BYPASS,AORTO CORONARY COURTNEY/MALCOLM 10/23/2017 Anesthesia Event Lisa Shaw MD 10/23/2017 - Hospital Encounter Cardiology Kevin Anguiano, Pre-transplant evaluation for ESRD (end stage renal disease) (Primary Dx); 10/29/2017 Acute respiratory insufficiency; Yanelis Jackson Anemia in chronic kidney disease, on chronic dialysis ([facility]) ; MD Chelsy Dialysis patient ([facility]); Secondary hypertension; Hypotension, unspecified hypotension type; Insulin dependent diabetes mellitus ([facility]); Postoperative anemia due to acute blood loss; S/P CABG x 3; Thrombocytopenia ([facility]); ESRD (end stage renal disease) ([facility]); Coronary artery disease involving [place] coronary artery of [place] heart without angina pectoris; Mixed hyperlipidemia 10/21/2017 Hospital Encounter Kevin Anguiano, Anemia in chronic kidney MD disease, on chronic dialysis ([facility]) 10/21/2017 Office Visit Cardiology Kevin Anguiano, coronary artery disease ; Stage 5 chronic kidney disease on chronic dialysis ([facility]); Coronary artery disease involving [place] coronary artery of [place] heart without angina pectoris; ESRD (end stage renal disease) ([facility]); Dialysis patient ([facility]); Insulin dependent diabetes mellitus ([facility]); Hypertension, unspecified type; Gastroesophageal reflux disease, esophagitis presence not specified; Cerebrovascular accident (CVA), unspecified mechanism ([facility]); Anemia in chronic kidney disease, on chronic dialysis ([facility]) 10/21/2017 Orders Only Cardiology Kevin Anguiano, coronary artery disease; Stage 5 chronic kidney disease on chronic dialysis ([facility]) 09/30/2017 Surgery Ramses Holland MD L CATH & CORONARY ANGIOS 09/30/2017 Hospital Encounter Ramses Holland MD Pre-transplant evaluation for ESRD (end stage renal disease) after 09/02/2017 Family History Medical History Relation Name Comments [...] 10/29/2017 4:09 AM CDT Plan of Treatment Not on file Procedures Procedure Name Priority Date/Time Associated Comments [...] are in the results section. LACTIC ACID, ARTERIAL Routine 10/24/2017 3:26 Results for this AM [...] are in the results section. LACTIC ACID, ARTERIAL STAT 10/23/2017 12:11 Results for this [...] 7:30 Coronary artery AM CDT disease of [place] artery of [place] heart with stable angina pectoris (HCC) BYPASS,AORTO CORONARY 10/23/2017 7:30 Coronary artery COURTNEY/SVG AM CDT disease of [place] artery of [place] heart with stable angina pectoris (HCC) POTASSIUM-STAT [...] results kidney disease on section. chronic dialysis ([facility]) ECG 12-LEAD Routine 10/21/2017 10:49 Results for [...] artery POSS PPI PM CDT disease involving [place] heart without angina pectoris, unspecified vessel or lesion type Case Notes POP6 POSS PCI L CATH & CORONARY ANGIOS 09/30/2017 3:29 PM CDT Coronary artery disease involving [place] heart without angina pectoris, unspecified vessel or lesion type Case Notes POP6 POSS PCI PT/APTT Routine 09/30/2017 11:59 AM CDT CBC W/PLT COUNT & AUTO Routine 09/30/2017 11:45 AM CDT Results for this DIFFERENTIAL procedure are in the results section. BASIC METABOLIC PANEL (7) Routine 09/30/2017 11:45 AM CDT CBC W/PLT COUNT & AUTO Routine 09/30/2017 11:45 AM CDT Results for this DIFFERENTIAL procedure are in the results section. ECG 12-LEAD Routine 09/30/2017 11:03 AM CDT after 09/02/2017 Results RHYTHM STRIP - SCAN (04/10/2018 6:10 AM CDT)Only the most recent of2 resultswithin the time period is included. Narrative Performed At TRANSFUSION SERVICE REPORT - SCAN (01/07/2018 5:54 PM CDT)Only the most recent of6 resultswithin the time period is included. Narrative Performed At Type and screen, automated (01/06/2018 7:35 AM CDT)Only the most recent of4 resultswithin the time period is included. ABO/RH AUTOMATED (BEAKER) O POSITIVE [facility] Ab Scrn NEGATIVE [facility] Specimen Blood Performing Organization Address City/State/Zipcode Phone Number [facility] [address] [place] [address] [phone] Direct AHG (PERLA)/Direct Carla (01/06/2018 7:35 AM CDT)Only the most recent of4 resultswithin the time period is included. Direct AHG-IGG NEGATIVE [facility] Direct AHG-C3B, C3D NEGATVIE [facility] Specimen Blood Performing Organization Address City/State/Zipcode Phone Number [facility] [address] [place] [address] PERMANENT LAB REPORT - SCAN (12/18/2017 11:40 AM CDT) Narrative Performed At CBC with platelet count + automated diff (11/18/2017 12:23 PM CDT)Only the most recent of10 resultswithin the time period is included. WBC 5.5 3.5 - 10.5 K/L [facility] RBC 3.95 (L) 4.63 - 6.08 M/L [facility] Hemoglobin 10.7 (L) 13.7 - 17.5 GM/DL [facility] Hematocrit 36.7 (L) 40.1 - 51.0 % [facility] MCV 92.9 (H) 79.0 - 92.2 fL [facility] MCH 27.1 25.7 - 32.2 pg [facility] MCHC 29.2 (L) 32.3 - 36.5 GM/DL [facility] RDW 15.4 (H) 11.6 - 14.4 % [facility] Platelets 243 150 - 450 K/CU MM [facility] MPV 11.7 9.4 - 12.4 fL [facility] nRBC 0 0 - 0 /100 WBC [facility] % Neutros 49 % [facility] % Lymphs 34 % [facility] % Monos 9 % [facility] % Eos 7 % [facility] % Baso 1 % [facility] # Neutros 2.67 1.78 - 5.38 K/L [facility] # Lymphs 1.84 1.32 - 3.57 K/L [facility] # Monos 0.51 0.30 - 0.82 K/L [facility] # Eos 0.36 0.04 - 0.54 K/L [facility] # Baso 0.06 0.01 - 0.08 K/L [facility] Immature Granulocytes-Relative 0 0 - 1 % [facility] Specimen Blood Performing Organization Address City/State/Zipcode Phone Number [address] [address] CENTER aPTT (11/18/2017 12:23 PM CDT)Only the most recent of4 resultswithin the time period is included. PTT 35.3 22.5 - 36.0 seconds [facility] Specimen Blood Performing Organization Address City/State/Zipcode Phone Number [address] [address] [phone] CENTER Prothrombin time/INR (11/18/2017 12:23 PM CDT)Only the most recent of4 resultswithin the time period is included. Protime 13.7 11.7 - 14.7 seconds [facility] INR 1.1 <=5.9 [facility] Specimen Blood Narrative Performed At [facility] RECOMMENDED COUMADIN/WARFARIN INR THERAPY RANGES STANDARD DOSE: 2.0 - 3.0 Includes: PROPHYLAXIS for venous thrombosis, systemic embolization; TREATMENT for venous thrombosis and/or pulmonary embolus. HIGH RISK: Target INR is 2.5-3.5 for patients with mechanical heart valves. Performing Organization Address [facility] Phone Number [address] [address] CENTER Fibrinogen (11/18/2017 12:23 PM CDT)Only the most recent of4 resultswithin the time period is included. Fibrinogen 467 (H) 225 - 434 mg/dl [facility] Specimen Blood Performing Organization Address [facility] Phone Number [address] [address] CENTER Alkaline phosphatase (11/18/2017 12:23 PM CDT)Only the most recent of2 resultswithin the time period is included. Alkaline Phosphatase 102 40 - 150 U/L [facility] Specimen Blood Performing Organization Address [facility] Phone Number [address] [address] CENTER Lactate dehydrogenase (LDH) (11/18/2017 12:23 PM CDT)Only the most recent of2 resultswithin the time period is included. LDH 235 (H) 125 - 220 U/L [facility] Specimen Blood Performing Organization Address [facility] Phone Number [address] [address] [phone] CENTER Creatine Kinase (CK) (11/18/2017 12:23 PM CDT)Only the most recent of3 resultswithin the time period is included. Total CK 56 29 - 200 U/L [facility] Specimen Blood Performing Organization Address [facility] Phone Number [address] [address] CENTER Comprehensive metabolic panel (11/18/2017 12:23 PM CDT)Only the most recent of2 resultswithin the time period is included. Protein, Total 7.4 6.0 - 8.3 gm/dL [facility] Albumin 4.3 3.5 - 5.0 g/dL [facility] Alkaline Phosphatase 102 40 - 150 U/L [facility] Total Bilirubin 0.3 0.2 - 1.2 mg/dL [facility] Sodium 139 136 - 145 meq/L [facility] Potassium 4.0 3.5 - 5.1 meq/L [facility] Chloride 104 98 - 107 meq/L [facility] CO2 25 22 - 29 meq/L [facility] BUN 23 (H) 7 - 21 mg/dL [facility] Creatinine 4.88 (H) 0.57 - 1.25 mg/dL [facility] Glucose 136 (H) 70 - 105 mg/dL [facility] Calcium 9.6 8.4 - 10.2 mg/dL [facility] AST 15 5 - 34 U/L [facility] ALT 15 6 - 55 U/L [facility] EGFR 15Comment: ESTIMATED GFR mL/min/1.73 sq m [facility] IS NOT ACCURATE [facility] CREATININE CLEARANCE IN PREDICTING GLOMERULAR FILTRATION RATE. ESTIMATED GFR IS NOT APPLICABLE FOR DIALYSIS PATIENTS. Specimen Blood Performing Organization Address City/State/Zipcode Phone Number [facility] [address] [place] [address] CENTER VASCULAR DIAGRAM -SCAN (10/30/2017 3:30 PM CDT)Only the most recent of4 resultswithin the time period is included. Narrative Performed At POC-Glucose meter (10/29/2017 12:43 PM CDT)Only the most recent of28 resultswithin the time period is included. POC-Glucose Meter 203 (H)Comment: TESTED AT 70 - 110 mg/dL [facility] [address] [facility] [place] [address] Specimen Blood Performing Organization Address City/[facility]/Zipcode Phone Number [address] [phone] CENTER Phosphorus (10/29/2017 7:39 AM CDT)Only the most recent of3 resultswithin the time period is included. Phosphorus 2.1 (L) 2.3 - 4.7 mg/dL [facility] Specimen Blood - Central Venous Line Performing Organization Address [facility] Phone Number [address] [address] [place] Basic metabolic panel (10/29/2017 7:39 AM CDT)Only the most recent of9 resultswithin the time period is included. Sodium 139 136 - 145 meq/L [facility] Potassium 3.7 3.5 - 5.1 meq/L [facility] Chloride 105 98 - 107 meq/L [facility] CO2 26 22 - 29 meq/L [facility] BUN 31 (H) 7 - 21 mg/dL [facility] Creatinine 3.68 (H) 0.57 - 1.25 mg/dL [facility] Glucose 91 70 - 105 mg/dL [facility] Calcium 8.5 8.4 - 10.2 mg/dL [facility] EGFR 20Comment: ESTIMATED GFR IS mL/min/1.73 sq m [facility] NOT ACCURATE [facility] CLEARANCE IN PREDICTING GLOMERULAR FILTRATION RATE. ESTIMATED GFR IS NOT APPLICABLE FOR DIALYSIS PATIENTS. Specimen Blood - Central Venous Line Performing Organization Address City/[facility]/Zipcode Phone Number [address] [address] CENTER Magnesium (10/29/2017 5:32 AM CDT)Only the most recent of5 resultswithin the time period is included. Magnesium 2.4 1.6 - 2.6 mg/dL [facility] Specimen Blood Performing Organization Address City/State/Zipcode Phone Number [facility] [address] [place] [address] CENTER HEMODIALYSIS INPATIENT (10/28/2017 12:46 AM CDT) Narrative Performed At Shannan Bernabe RN 10/28/2017 12:46 AM 10/27/2017 2015: Received patient alert and awake, follows commands. HD plan discussed with patient and his . 10/27/20172030: Arterial port has resistance and venous port slightly sluggish. Blood flow decreased to 275 ml/min, venous pressure at 300-320. Dr. Baca was informed. 10/27/2017 2875: HD terminated 30 minutes early, system clotting. [...] included. Potassium 3.6 3.5 - 5.1 meq/L [facility] Specimen Blood - Central Venous Line Performing Organization Address City/State/Zipcode Phone Number [address] [address] CENTER Bilirubin, total and direct (10/27/2017 1:36 PM CDT) Total Bilirubin 0.2 0.2 - 1.2 mg/dL [facility] Bilirubin, Direct 0.1 0.1 - 0.5 mg/dL [facility] Specimen Blood Performing Organization Address City/[facility] Phone Number [address] [address] CENTER ALT (SGPT) (10/27/2017 1:36 PM CDT) ALT 90 (H) 6 - 55 U/L [facility] Specimen Blood Performing Organization Address [facility] Phone Number [address] [address] [place] AST (SGOT) (10/27/2017 1:36 PM CDT) AST 68 (H) 5 - 34 U/L [facility] Specimen Blood Performing Organization Address [facility] Phone Number [address] [address] [place] Protein, total (10/27/2017 1:36 PM CDT) Protein, Total 6.3 6.0 - 8.3 gm/dL [facility] Specimen Blood Performing Organization Address [facility] Phone Number [address] [address] [phone] CENTER Albumin (10/27/2017 1:36 PM CDT) Albumin 3.4 (L) 3.5 - 5.0 g/dL [facility] Specimen Blood Performing Organization Address [facility] Phone Number [address] [address] [phone] [place] XR chest 1 view portable / bedside (10/26/2017 4:08 PM CDT)Only the most recent of5 resultswithin the time period is included. Narrative Performed At FINAL REPORT [facility] CLINICAL INDICATION: Postop Comparison: 10/25/2017 The cardiomediastinal contours are stable. Central pulmonary vascular prominence and bilateral parenchymal opacities are similar within variation of acquisition technique. Blunting of the costophrenic sulci may reflect trace effusions or pleural thickening. There is no pneumothorax. A tunneled right IJ dialysis catheter remains in place. Signed: Eliu Coker MD Report Verified Date/Time:10/26/2017 17:08:24 Reading Location: [address] Reading Room Procedure Note Interface, External [...] Report Verified Date/Time: 10/26/2017 17:08:24 Reading Location: [address] Reading Room Performing Organization Address [facility] Phone Number [facility] Prepare RBC (10/24/2017 11:54 PM CDT) CROSSMATCH COMPATIBLE SAFETRACE TX Unit ABO O Neg SAFETRACE TX UNIT NUMBER [id number] SAFETRACE TX Status TRANSFUSED SAFETRACE TX Blood Bank Product RED BLOOD CELLS SAFETRACE TX PRODUCT CODE [id number] SAFETRACE TX CROSSMATCH COMPATIBLE SAFETRACE TX Unit ABO O Pos SAFETRACE TX UNIT NUMBER [id number] SAFETRACE TX Status TRANSFUSED SAFETRACE TX Blood Bank Product RED BLOOD CELLS SAFETRACE [place] PRODUCT CODE [id number] SAFETRACE [place] Performing Organization Address [facility]/Zipcode Phone Number SAFETRACE [place] HEMODIALYSIS INPATIENT (10/24/2017 [...] CDT) hepatitis B Surface Ag NON-REACTIVE Nonreactive [facility] Specimen Blood - Central Venous Line Narrative Performed At For chronic HD patients, draw HBsAg with each [facility] admission then every 30 days. Performing Organization Address City/[facility] Phone Number [address] [address] [phone] CENTER Hemoglobin and hematocrit (10/24/2017 9:33 AM CDT) Hemoglobin 9.9 (L) 13.7 - 17.5 GM/DL [facility] Hematocrit 31.7 (L) 40.1 - 51.0 % [facility] Specimen Blood Performing Organization Address City/[facility]/Zipcode Phone Number [place] [phone] [place] [address] CENTER Oxygen saturation, measured (10/24/2017 3:26 AM CDT)Only the most recent of2 resultswithin the time period is included. O2 Saturation (Measured) 72.5 % [facility] Specimen Blood Performing Organization Address City/[facility] Phone Number [address] [address] [place] Calcium, Ionized (10/24/2017 3:26 AM CDT)Only the most recent of4 resultswithin the time period is included. Calcium, Ion 1.17 1.12 - 1.27 mmol/L [facility] pH, Blood 7.29 [facility] Specimen Blood Performing Organization Address [facility] Phone Number [address] [address] [phone] [place] Lactic acid, arterial, whole blood (10/24/2017 3:26 AM CDT)Only the most recent of2 resultswithin the time period is included. Lactate, Art 0.7 0.5 - 2.2 mmol/L [facility] Specimen Blood, Arterial Narrative Performed At [facility] Effective 10/18/2015: Units/Reference Range Change New: 0.5-2.2 mmol/LPrevious: 5-20 mg/dL Performing Organization Address City/[facility] Phone Number [address] [address] [place] Blood gas, arterial (10/23/2017 4:57 PM CDT)Only the most recent of7 resultswithin the time period is included. pH, Arterial 7.43 7.35 - 7.45 [facility] pCO2, Arterial 32 (L) 35 - 45 mmHg [facility] pO2, Arterial 184 (H) 80 - 90 mmHg [facility] O2 Sat, Arterial 99.3 (H) 96.0 - 97.0 % [facility] HCO3, Arterial 21 21 - 29 mmol/L [facility] Base Excess, Arterial -3.0 (L) -2.0 - 3.0 mmol/L [facility] Patient Temperature 36.7 C [facility] FIO2 40.0 % [facility] Specimen Blood, Arterial - Line, Arterial Performing Organization Address City/[facility] Phone Number [address] [address] [phone] [place] Glucose-Stat Lab (10/23/2017 2:04 PM CDT)Only the most recent of7 resultswithin the time period is included. Glucose 235 (H) 70 - 110 mg/dL [facility] Specimen Blood, Arterial - Line, Arterial Performing Organization Address City/[facility] Phone Number [address] [address] [place] EKG 12 lead (10/23/2017 1:09 PM CDT)Only the most recent of3 resultswithin the time period is included. Narrative Performed At Ventricular Rate 76 BPM GE MUSE Atrial Rate 76 BPM P-R Interval 146 ms QRS Duration 146 ms Q-T Interval 446 ms QTC Calculation(Bazett) 501 ms P [place] 70 degrees R [place] 82 degrees T [place] 62 degrees Sinus rhythm with occasional Premature [...] 446 ms QTC Calculation(Bazett) 501 ms P [place] 70 degrees R [place] 82 degrees T [place] 62 degrees Sinus rhythm with occasional Premature ventricular complexes Right bundle branch block Abnormal ECG When compared with ECG of 21-OCT-2017 10:49, Premature ventricular complexes are now Present Right bundle branch block is now Present Confirmed by MD LEAL JOSEPH P ([id number]) on 10/24/2017 4:29:52 PM Performing Organization Address City/[facility] Phone Number GE MUSE Prepare plasma (10/23/2017 12:21 PM CDT) Unit ABO O Pos SAFETRACE TX UNIT NUMBER [id number] SAFETRACE TX Status RETURNED FROM ISSUE SAFETRACE TX Blood Bank Product FFP SAFETRACE TX PRODUCT CODE [id number] SAFETRACE [place] Performing Organization Address City/[facility] Phone Number SAFETRACE [place] Potassium-Stat Lab (10/23/2017 12:11 PM CDT)Only the most recent of6 resultswithin the time period is included. Potassium 3.9 3.6 - 5.5 meq/L [facility] Specimen Blood, Arterial Performing Organization Address [facility] Phone Number [address] [address] [phone] CENTER HGB/HCT (H&H)-Stat Lab (10/23/2017 12:11 PM CDT)Only the most recent of6 resultswithin the time period is included. Hemoglobin 10.9 (L) 13.0 - 16.8 g/dL [facility] Hematocrit 32.0 (L) 40.0 - 50.0 % [facility] Specimen Blood, Arterial Performing Organization Address [facility] Phone Number [address] [address] CENTER Sodium (10/23/2017 12:11 PM CDT) Sodium 138 136 - 145 meq/L [facility] Specimen Blood Performing Organization Address [facility] Phone Number [address] [address] [phone] CENTER Glucose (10/23/2017 12:11 PM CDT) Glucose 282 (H) 70 - 105 mg/dL [facility] Specimen Blood Performing Organization Address [facility] Phone Number [address] [address] [place] Hemoglobin A1c (Obtain on all cardiothoracic surgery cases) (10/23/2017 12:10 PM CDT) Hemoglobin A1C 7.0 (H) 4.3 - 6.1 % [facility] Specimen Blood Performing Organization Address [facility] Phone Number [address] [address] [place] POC ACTIVATED CLOTTING TIME (10/23/2017 10:16 AM CDT)Only the most recent of5 resultswithin the time period is included. Activated Clotting Time 114Comment: TESTED AT sec [address] [address] Specimen Blood Performing Organization Address [facility] Phone Number [address] [address] [place] Sodium Na-Stat Lab (10/23/2017 10:10 AM CDT)Only the most recent of4 resultswithin the time period is included. Sodium 133 (L) 135 - 148 meq/L [facility] Specimen Blood, Arterial Performing Organization Address [facility] Phone Number [address] [address] [phone] ROACH Thromboelastograph (TEG) (10/23/2017 10:10 AM CDT) TEG Activated Clotting Time 7.2 (H) 4.0 - 7.0 minutes [facility] TEG Fibrinogen Activity 64.0 61.0 - 73.0 degrees [facility] TEG Platelet Aggregation 39.7 (L) 55.0 - 65.0 MM [facility] TEG-H Activated Clotting Time 7.5 (H) 4.0 - 7.0 minutes [facility] TEG-H Fibrinogen Activity 66.0 61.0 - 73.0 degrees [facility] TEG-H Platelet Aggregation 58.6 55.0 - 65.0 MM [facility] Specimen Blood Performing Organization Address City/[facility]/Zipcode Phone Number [facility] [address] [place] [address] [phone] CENTER Platelet count (10/23/2017 10:10 AM CDT) Platelets 80 (L) 150 - 450 K/CU MM [facility] Specimen Blood Performing Organization Address [facility] Phone Number [facility] [address] [place], [place] [phone] CENTER XR chest 2 views (10/21/2017 11:17 AM CDT) Narrative Performed At FINAL REPORT [facility] Chest 2 views 10/21/2017 11:28 AM CLINICAL HISTORY: Pre-Op, chest pain COMPARISON: 08/07/2017 FINDINGS: The lungs are clear. Cardiomediastinal contours are within normal limits. The central pulmonary vasculature is not engorged. A right hemodialysis catheter is present. The visualized skeleton is intact. IMPRESSION: No acute radiographic abnormalities. Signed: González Nunez MD Report Verified Date/Time:10/21/2017 11:29:02 Reading Location: [facility] Radiology Reading Room Procedure Note Interface, External [...] Report Verified Date/Time: 10/21/2017 11:29:02 Reading Location: [facility] Radiology Reading Room Performing Organization Address City/[facility]/Zipcode Phone Number GE RIS PT/aPTT (10/21/2017 10:34 AM CDT)Only the most recent of2 resultswithin the time period is included. Protime 13.7 11.7 - 14.7 seconds [facility] INR 1.1 <=5.9 [facility] PTT 33.1 22.5 - 36.0 seconds [facility] Specimen Blood Narrative Performed At [facility] RECOMMENDED COUMADIN/WARFARIN INR THERAPY RANGES STANDARD DOSE: 2.0 - 3.0 Includes: PROPHYLAXIS for venous thrombosis, systemic embolization; TREATMENT for venous thrombosis and/or pulmonary embolus. HIGH RISK: Target INR is 2.5-3.5 for patients with mechanical heart valves. Performing Organization Address [facility] Phone Number [address] [address] [phone] CENTER CARDIAC CATH REPORT - SCAN (10/16/2017 7:12 PM CDT) Narrative Performed At CARDIAC CATH REPORT - SCAN (10/01/2017 8:01 PM CDT) Narrative Performed At after 09/02/2017 Insurance Payer Benefit Plan / Group Subscriber ID Type Phone Address MEDICARE MEDICARE A B xxxxxxxxxx Medicare HU[employer] - M[employer] CARE HU[employer]NA INDEMNITY xxxxxxxxx PPO Advance Directives For more information, please contact:[address] [phone] Code Status Date Activated Date Inactivated Comments Full Code 10/23/2017 11:53 AM 10/29/2017 6:47 PM This code status was determined by: Patient Full Code 10/23/2017 5:57 AM 10/23/2017 11:53 AM This code status was determined by: Patient Full Code 09/30/2017 9:41 AM 09/30/2017 11:12 PM This code status was determined by: Patient
--- OUTSIDE RECORDS SUMMARY | 2018-09-03 18:57 | XMS REPORT ---
:1950 [facility] Address [address] [place] [address] Care Team Providers Name Role Phone LUISITOSUSIE HOWEE Unavailable Unavailable BRAD GANDARA Unavailable Unavailable CHERISE [...] TOTAL PROTEIN (BEAKER) (test 7.4 gm/dL 6.0-8.3 uflp=265) ALBUMIN (BEAKER) (test 4.3 g/dL 3.5-5.0 rxsz=3063) ALKALINE PHOSPHATASE 102 U/L 40-150 (BEAKER) (test kxex=633) BILIRUBIN TOTAL (BEAKER) 0.3 mg/dL 0.2-1.2 (test hfgm=325) SODIUM (BEAKER) (test 139 meq/L 136-145 ezkq=286) POTASSIUM (BEAKER) (test 4.0 meq/L 3.5-5.1 fvdr=334) CHLORIDE (BEAKER) (test 104 meq/L 98-107 zeqc=438) CO2 (BEAKER) (test yjpz=670) 25 meq/L 22-29 BLOOD UREA NITROGEN (BEAKER) 23 mg/dL 7-21 (test uuax=067) CREATININE (BEAKER) (test 4.88 mg/dL 0.57-1.25 meyj=114) GLUCOSE RANDOM (BEAKER) 136 mg/dL 70-105 (test ktps=309) CALCIUM (BEAKER) (test 9.6 mg/dL 8.4-10.2 adnv=786) AST (SGOT) (BEAKER) (test 15 U/L 5-34 dtbq=762) ALT (SGPT) (BEAKER) (test 15 U/L 6-55 yqwf=260) EGFR (BEAKER) (test 15 mL/min/1.73 sq m ESTIMATED GFR IS NOT uyel=5724) ACCURATE CREATININE CLEARANCE IN PREDICTING GLOMERULAR FILTRATION RATE. ESTIMATED GFR IS NOT APPLICABLE FOR DIALYSIS PATIENTS. ALKALINE [id number] 13:23:00 Test Item Value Reference Range Comments ALKALINE PHOSPHATASE (BEAKER) (test vxwf=183) 102 U/L 40-150 CREATINE KINASE (CK)2017-11-18 13:23:00 Test Item Value Reference Range Comments CREATINE KINASE TOTAL (BEAKER) (test jbzs=018) 56 U/L 29-200 LACTATE DEHYDROGENASE (LDH)2017-11-18 13:23:00 Test Item Value Reference Range Comments LACTATE DEHYDROGENASE (BEAKER) (test cgpr=663) 235 U/L 125-220 [id number] 13:18:00 Test Item Value Reference Range Comments PARTIAL THROMBOPLASTIN TIME (BEAKER) (test 35.3 seconds 22.5-36.0 qlbu=346) PROTHROMBIN [id number] 13:17:00 Test Item Value Reference Range Comments PROTIME (BEAKER) (test wxwz=531) 13.7 seconds 11.7-14.7 INR (BEAKER) (test xavk=211) 1.1 <=5.9 RECOMMENDED COUMADIN/WARFARIN INR THERAPY RANGESSTANDARD DOSE: 2.0 - 3.0 Includes: PROPHYLAXIS forvenous thrombosis, systemic embolization; TREATMENT for venous thrombosis and/or pulmonary embolus.HIGH RISK: Target INR is 2.5-3.5 for patients with mechanical heart valves.[id number] 13:17:00 Test Item Value Reference Range Comments FIBRINOGEN LEVEL (BEAKER) (test lwjn=446) 467 mg/dl 225-434 CBC W/PLT COUNT & AUTO [id number] 12:54:00 Test Item Value Reference Range Comments WHITE BLOOD CELL COUNT (BEAKER) (test fnvi=745) 5.5 K/ L 3.5-10.5 RED BLOOD CELL COUNT (BEAKER) (test renz=033) 3.95 M/ L 4.63-6.08 HEMOGLOBIN (BEAKER) (test fsao=652) 10.7 GM/DL 13.7-17.5 HEMATOCRIT (BEAKER) (test mfyb=039) 36.7 % 40.1-51.0 MEAN CORPUSCULAR VOLUME (BEAKER) (test zcqh=845) 92.9 fL 79.0-92.2 MEAN CORPUSCULAR HEMOGLOBIN (BEAKER) (test 27.1 pg 25.7-32.2 pxvb=678) MEAN CORPUSCULAR HEMOGLOBIN CONC (BEAKER) (test 29.2 GM/DL 32.3-36.5 hdok=138) RED CELL DISTRIBUTION WIDTH (BEAKER) (test 15.4 % 11.6-14.4 bkdu=991) PLATELET COUNT (BEAKER) (test xcyv=542) 243 K/CU MM 150-450 MEAN PLATELET VOLUME (BEAKER) (test ukkm=094) 11.7 fL 9.4-12.4 NUCLEATED RED BLOOD CELLS (BEAKER) (test 0 /100 WBC 0-0 dhwr=873) NEUTROPHILS RELATIVE PERCENT (BEAKER) (test 49 % jprh=979) LYMPHOCYTES RELATIVE PERCENT (BEAKER) (test 34 % tqov=178) MONOCYTES RELATIVE PERCENT (BEAKER) (test 9 % uvwt=972) EOSINOPHILS RELATIVE PERCENT (BEAKER) (test 7 % vebb=066) BASOPHILS RELATIVE PERCENT (BEAKER) (test 1 % fugu=969) NEUTROPHILS ABSOLUTE COUNT (BEAKER) (test 2.67 K/ L 1.78-5.38 xrug=034) LYMPHOCYTES ABSOLUTE COUNT (BEAKER) (test 1.84 K/ L 1.32-3.57 oozf=835) MONOCYTES ABSOLUTE COUNT (BEAKER) (test 0.51 K/ L 0.30-0.82 zpsr=223) EOSINOPHILS ABSOLUTE COUNT (BEAKER) (test 0.36 K/ L 0.04-0.54 wcdf=937) BASOPHILS ABSOLUTE COUNT (BEAKER) (test 0.06 K/ L 0.01-0.08 jjko=005) IMMATURE GRANULOCYTES-RELATIVE PERCENT (BEAKER) 0 % 0-1 (test mxyk=6787) POCT-GLUCOSE [id number] 12:50:00 Test Item Value Reference Range Comments POC-GLUCOSE METER (BEAKER) 203 mg/dL 70-110 TESTED AT [facility] [address] [facility] (test plpn=[address] [address] [id number] 08:18:00 Test Item Value Reference Range Comments PHOSPHORUS (BEAKER) (test xbol=847) 2.1 mg/dL 2.3-4.7 BASIC METABOLIC [id number] 08:18:00 Test Item Value Reference Range Comments SODIUM (BEAKER) (test 139 meq/L 136-145 gtsk=365) POTASSIUM (BEAKER) (test 3.7 meq/L 3.5-5.1 mgvc=249) CHLORIDE (BEAKER) (test 105 meq/L 98-107 vjbm=339) CO2 (BEAKER) (test 26 meq/L 22-29 kbst=585) BLOOD UREA NITROGEN 31 mg/dL 7-21 (BEAKER) (test aqst=902) CREATININE (BEAKER) (test 3.68 mg/dL 0.57-1.25 emhz=514) GLUCOSE RANDOM (BEAKER) 91 mg/dL 70-105 (test sxff=523) CALCIUM (BEAKER) (test 8.5 mg/dL 8.4-10.2 uvol=191) EGFR (BEAKER) (test 20 mL/min/1.73 sq m ESTIMATED GFR IS NOT vhbq=7699) ACCURATE CREATININE CLEARANCE IN PREDICTING GLOMERULAR FILTRATION RATE. ESTIMATED GFR IS NOT APPLICABLE FOR DIALYSIS PATIENTS. CBC W/PLT COUNT & AUTO [id number] 08:06:00 Test Item Value Reference Range Comments WHITE BLOOD CELL COUNT (BEAKER) (test qcol=931) 4.7 K/ L 3.5-10.5 RED BLOOD CELL COUNT (BEAKER) (test mvpf=193) 2.84 M/ L 4.63-6.08 HEMOGLOBIN (BEAKER) (test cmwy=665) 7.8 GM/DL 13.7-17.5 HEMATOCRIT (BEAKER) (test bpgv=661) 25.9 % 40.1-51.0 MEAN CORPUSCULAR VOLUME (BEAKER) (test ulbl=092) 91.2 fL 79.0-92.2 MEAN CORPUSCULAR HEMOGLOBIN (BEAKER) (test 27.5 pg 25.7-32.2 jqva=623) MEAN CORPUSCULAR HEMOGLOBIN CONC (BEAKER) (test 30.1 GM/DL 32.3-36.5 wcpg=365) RED CELL DISTRIBUTION WIDTH (BEAKER) (test 14.5 % 11.6-14.4 paep=781) PLATELET COUNT (BEAKER) (test fkhq=423) 180 K/CU MM 150-450 MEAN PLATELET VOLUME (BEAKER) (test auim=187) 11.7 fL 9.4-12.4 NUCLEATED RED BLOOD CELLS (BEAKER) (test 0 /100 WBC 0-0 uscq=067) NEUTROPHILS RELATIVE PERCENT (BEAKER) (test 47 % kjal=966) LYMPHOCYTES RELATIVE PERCENT (BEAKER) (test 36 % qkes=025) MONOCYTES RELATIVE PERCENT (BEAKER) (test 12 % ehfv=682) EOSINOPHILS RELATIVE PERCENT (BEAKER) (test 4 % ucgl=586) BASOPHILS RELATIVE PERCENT (BEAKER) (test 0 % rwel=790) NEUTROPHILS ABSOLUTE COUNT (BEAKER) (test 2.20 K/ L 1.78-5.38 vhje=265) LYMPHOCYTES ABSOLUTE COUNT (BEAKER) (test 1.72 K/ L 1.32-3.57 soqe=278) MONOCYTES ABSOLUTE COUNT (BEAKER) (test 0.55 K/ L 0.30-0.82 bmwx=086) EOSINOPHILS ABSOLUTE COUNT (BEAKER) (test 0.21 K/ L 0.04-0.54 hhwg=974) BASOPHILS ABSOLUTE COUNT (BEAKER) (test 0.02 K/ L 0.01-0.08 mmdu=954) IMMATURE GRANULOCYTES-RELATIVE PERCENT (BEAKER) 1 % 0-1 (test bneh=2795) CBC W/PLT COUNT & AUTO [id number] 07:54:00 Test Item Value Reference Range Comments WHITE BLOOD CELL COUNT (BEAKER) (test gcny=898) 4.2 K/ L 3.5-10.5 RED BLOOD CELL COUNT (BEAKER) (test fsvk=315) 2.95 M/ L 4.63-6.08 HEMOGLOBIN (BEAKER) (test iymq=512) 8.0 GM/DL 13.7-17.5 HEMATOCRIT (BEAKER) (test ajxy=069) 26.5 % 40.1-51.0 MEAN CORPUSCULAR VOLUME (BEAKER) (test msmv=742) 89.8 fL 79.0-92.2 MEAN CORPUSCULAR HEMOGLOBIN (BEAKER) (test 27.1 pg 25.7-32.2 pdvc=076) MEAN CORPUSCULAR HEMOGLOBIN CONC (BEAKER) (test 30.2 GM/DL 32.3-36.5 nsfi=424) RED CELL DISTRIBUTION WIDTH (BEAKER) (test 14.6 % 11.6-14.4 rgez=939) PLATELET COUNT (BEAKER) (test muja=471) 179 K/CU MM 150-450 MEAN PLATELET VOLUME (BEAKER) (test igaa=313) 11.3 fL 9.4-12.4 NUCLEATED RED BLOOD CELLS (BEAKER) (test 0 /100 WBC 0-0 qpcf=376) NEUTROPHILS RELATIVE PERCENT (BEAKER) (test 52 % moqv=597) LYMPHOCYTES RELATIVE PERCENT (BEAKER) (test 35 % gedj=527) MONOCYTES RELATIVE PERCENT (BEAKER) (test 7 % ndmk=523) EOSINOPHILS RELATIVE PERCENT (BEAKER) (test 4 % jbbx=236) BASOPHILS RELATIVE PERCENT (BEAKER) (test 1 % vdjp=090) NEUTROPHILS ABSOLUTE COUNT (BEAKER) (test 2.22 K/ L 1.78-5.38 juqt=395) LYMPHOCYTES ABSOLUTE COUNT (BEAKER) (test 1.50 K/ L 1.32-3.57 skph=873) MONOCYTES ABSOLUTE COUNT (BEAKER) (test 0.30 K/ L 0.30-0.82 vdwo=110) EOSINOPHILS ABSOLUTE COUNT (BEAKER) (test 0.17 K/ L 0.04-0.54 cpzt=974) BASOPHILS ABSOLUTE COUNT (BEAKER) (test 0.03 K/ L 0.01-0.08 acys=471) IMMATURE GRANULOCYTES-RELATIVE PERCENT (BEAKER) 1 % 0-1 (test qhkt=5196) BASIC METABOLIC [id number] 06:41:00 Test Item Value Reference Range Comments SODIUM (BEAKER) (test 139 meq/L 136-145 ccdo=002) POTASSIUM (BEAKER) (test 4.0 meq/L 3.5-5.1 qufa=441) CHLORIDE (BEAKER) (test 106 meq/L 98-107 wvxh=257) CO2 (BEAKER) (test 25 meq/L 22-29 kxpr=016) BLOOD UREA NITROGEN 45 mg/dL 7-21 (BEAKER) (test drnt=765) CREATININE (BEAKER) (test 5.14 mg/dL 0.57-1.25 vnlp=714) GLUCOSE RANDOM (BEAKER) 82 mg/dL 70-105 (test ugym=418) CALCIUM (BEAKER) (test 8.7 mg/dL 8.4-10.2 teex=352) EGFR (BEAKER) (test 14 mL/min/1.73 sq m ESTIMATED GFR IS NOT xgog=0880) ACCURATE CREATININE CLEARANCE IN PREDICTING GLOMERULAR FILTRATION RATE. ESTIMATED GFR IS NOT APPLICABLE FOR DIALYSIS PATIENTS. [id number] 06:37:00 Test Item Value Reference Range Comments MAGNESIUM (BEAKER) (test rxig=148) 2.4 mg/dL 1.6-2.6 POCT-GLUCOSE [id number] 21:17:00 Test Item Value Reference Range Comments POC-GLUCOSE METER (BEAKER) 147 mg/dL 70-110 TESTED AT [address] (test zzkk=9253) [place] [id number] POCT-GLUCOSE [id number] 16:44:00 Test Item Value Reference Range Comments POC-GLUCOSE METER (BEAKER) 87 mg/dL 70-110 TESTED AT [address] (test udkk=8968) [place] [id number] POCT-GLUCOSE [id number] 12:41:00 Test Item Value Reference Range Comments POC-GLUCOSE METER (BEAKER) 176 mg/dL 70-110 TESTED AT [address] (test druw=4269) [place] [address] POCT-GLUCOSE [id number] 07:36:00 Test Item Value Reference Range Comments POC-GLUCOSE METER (BEAKER) 140 mg/dL 70-110 TESTED AT [address] (test zgdu=8342) [facility] [address] BASIC METABOLIC [id number] 05:04:00 Test Item Value Reference Range Comments SODIUM (BEAKER) (test 140 meq/L 136-145 qlke=351) POTASSIUM (BEAKER) (test 3.8 meq/L 3.5-5.1 qokc=436) CHLORIDE (BEAKER) (test 105 meq/L 98-107 bcup=946) CO2 (BEAKER) (test 25 meq/L 22-29 rnki=601) BLOOD UREA NITROGEN 33 mg/dL 7-21 (BEAKER) (test ijbu=603) CREATININE (BEAKER) (test 4.36 mg/dL 0.57-1.25 zmvs=254) GLUCOSE RANDOM (BEAKER) 117 mg/dL 70-105 (test royq=886) CALCIUM (BEAKER) (test 9.0 mg/dL 8.4-10.2 smgd=246) EGFR (BEAKER) (test 17 mL/min/1.73 sq m ESTIMATED GFR IS NOT cjgz=9495) ACCURATE CREATININE CLEARANCE IN PREDICTING GLOMERULAR FILTRATION RATE. ESTIMATED GFR IS NOT APPLICABLE FOR DIALYSIS PATIENTS. [id number] 05:03:00 Test Item Value Reference Range Comments MAGNESIUM (BEAKER) (test sejz=255) 2.4 mg/dL 1.6-2.6 [id number] 22:18:00 Test Item Value Reference Range Comments POTASSIUM (BEAKER) (test bdne=118) 3.6 meq/L 3.5-5.1 POCT-GLUCOSE [id number] 22:07:00 Test Item Value Reference Range Comments POC-GLUCOSE METER (BEAKER) 104 mg/dL 70-110 TESTED AT [address] (test ajwd=1997) [facility] [address] POCT-GLUCOSE [id number] 16:59:00 Test Item Value Reference Range Comments POC-GLUCOSE METER (BEAKER) 130 mg/dL 70-110 TESTED AT [address] (test lxxz=8334) [facility] [address] ALKALINE [id number] 14:14:00 Test Item Value Reference Range Comments ALKALINE PHOSPHATASE (BEAKER) (test pwbu=540) 40 U/L 40-150 PROTEIN, [id number] 14:14:00 Test Item Value Reference Range Comments TOTAL PROTEIN (BEAKER) (test mkkc=580) 6.3 gm/dL 6.0-8.3 AST (SGOT)2017-10-27 14:14:00 Test Item Value Reference Range Comments AST (SGOT) (BEAKER) (test aroz=748) 68 U/L 5-34 ALT (SGPT)2017-10-27 14:14:00 Test Item Value Reference Range Comments ALT (SGPT) (BEAKER) (test tiqx=162) 90 U/L 6-55 BILIRUBIN, TOTAL AND [id number] 14:14:00 Test Item Value Reference Range Comments BILIRUBIN TOTAL (BEAKER) (test yvcz=174) 0.2 mg/dL 0.2-1.2 BILIRUBIN DIRECT (BEAKER) (test vcjy=538) 0.1 mg/dL 0.1-0.5 [id number] 14:14:00 Test Item Value Reference Range Comments ALBUMIN (BEAKER) (test fqgq=5878) 3.4 g/dL 3.5-5.0 CREATINE KINASE (CK)2017-10-27 14:14:00 Test Item Value Reference Range Comments CREATINE KINASE TOTAL (BEAKER) (test gvqc=940) 665 U/L 29-200 LACTATE DEHYDROGENASE (LDH)2017-10-27 14:14:00 Test Item Value Reference Range Comments LACTATE DEHYDROGENASE (BEAKER) (test bmwo=719) 314 U/L 125-220 PROTHROMBIN [id number] 13:54:00 Test Item Value Reference Range Comments PROTIME (BEAKER) (test bdbl=779) 14.6 seconds 11.7-14.7 INR (BEAKER) (test ooow=664) 1.1 <=5.9 RECOMMENDED COUMADIN/WARFARIN INR THERAPY RANGESSTANDARD DOSE: 2.0 - 3.0 Includes: PROPHYLAXIS forvenous thrombosis, systemic embolization; TREATMENT for venous thrombosis and/or pulmonary embolus.HIGH RISK: Target INR is 2.5-3.5 for patients with mechanical heart valves.[id number] 13:54:00 Test Item Value Reference Range Comments PARTIAL THROMBOPLASTIN TIME (BEAKER) (test 33.4 seconds 22.5-36.0 mjzo=559) POCT-GLUCOSE [id number] 12:17:00 Test Item Value Reference Range Comments POC-GLUCOSE METER (BEAKER) 211 mg/dL 70-110 TESTED AT [address] (test ehaq=4193) [place] [id number] POCT-GLUCOSE [id number] 08:22:00 Test Item Value Reference Range Comments POC-GLUCOSE METER (BEAKER) 221 mg/dL 70-110 TESTED AT [address] (test xidc=5432) [facility] [address] BASIC METABOLIC [id number] 07:54:00 Test Item Value Reference Range Comments SODIUM (BEAKER) (test 138 meq/L 136-145 nacc=345) POTASSIUM (BEAKER) (test 3.9 meq/L 3.5-5.1 ddcx=194) CHLORIDE (BEAKER) (test 102 meq/L 98-107 vvfz=713) CO2 (BEAKER) (test 25 meq/L 22-29 ihmw=678) BLOOD UREA NITROGEN 60 mg/dL 7-21 (BEAKER) (test icgp=411) CREATININE (BEAKER) (test 6.81 mg/dL 0.57-1.25 rehi=906) GLUCOSE RANDOM (BEAKER) 177 mg/dL 70-105 (test euuf=468) CALCIUM (BEAKER) (test 9.0 mg/dL 8.4-10.2 cdwq=350) EGFR (BEAKER) (test 10 mL/min/1.73 sq m ESTIMATED GFR IS NOT oirr=0897) ACCURATE CREATININE CLEARANCE IN PREDICTING GLOMERULAR FILTRATION RATE. ESTIMATED GFR IS NOT APPLICABLE FOR DIALYSIS PATIENTS. [id number] 07:52:00 Test Item Value Reference Range Comments MAGNESIUM (BEAKER) (test eoui=288) 2.8 mg/dL 1.6-2.6 CBC W/PLT COUNT & AUTO [id number] 07:11:00 Test Item Value Reference Range Comments WHITE BLOOD CELL COUNT (BEAKER) (test rnbh=649) 6.1 K/ L 3.5-10.5 RED BLOOD CELL COUNT (BEAKER) (test etqk=482) 3.04 M/ L 4.63-6.08 HEMOGLOBIN (BEAKER) (test wbqu=542) 8.4 GM/DL 13.7-17.5 HEMATOCRIT (BEAKER) (test zrgo=803) 27.4 % 40.1-51.0 MEAN CORPUSCULAR VOLUME (BEAKER) (test rafx=125) 90.1 fL 79.0-92.2 MEAN CORPUSCULAR HEMOGLOBIN (BEAKER) (test 27.6 pg 25.7-32.2 xawr=030) MEAN CORPUSCULAR HEMOGLOBIN CONC (BEAKER) (test 30.7 GM/DL 32.3-36.5 thyz=726) RED CELL DISTRIBUTION WIDTH (BEAKER) (test 14.9 % 11.6-14.4 srsj=412) PLATELET COUNT (BEAKER) (test vgfo=124) 141 K/CU MM 150-450 MEAN PLATELET VOLUME (BEAKER) (test ggmi=986) 12.1 fL 9.4-12.4 NUCLEATED RED BLOOD CELLS (BEAKER) (test 0 /100 WBC 0-0 gvzs=355) NEUTROPHILS RELATIVE PERCENT (BEAKER) (test 64 % kbrk=540) LYMPHOCYTES RELATIVE PERCENT (BEAKER) (test 21 % fpxt=687) MONOCYTES RELATIVE PERCENT (BEAKER) (test 11 % hgqq=428) EOSINOPHILS RELATIVE PERCENT (BEAKER) (test 4 % urrm=989) BASOPHILS RELATIVE PERCENT (BEAKER) (test 1 % eneb=720) NEUTROPHILS ABSOLUTE COUNT (BEAKER) (test 3.88 K/ L 1.78-5.38 izpa=413) LYMPHOCYTES ABSOLUTE COUNT (BEAKER) (test 1.29 K/ L 1.32-3.57 xlsv=364) MONOCYTES ABSOLUTE COUNT (BEAKER) (test 0.65 K/ L 0.30-0.82 imcw=351) EOSINOPHILS ABSOLUTE COUNT (BEAKER) (test 0.23 K/ L 0.04-0.54 xxsv=671) BASOPHILS ABSOLUTE COUNT (BEAKER) (test 0.03 K/ L 0.01-0.08 vycl=561) IMMATURE GRANULOCYTES-RELATIVE PERCENT (BEAKER) 0 % 0-1 (test zkop=1701) POCT-GLUCOSE [id number] 22:32:00 Test Item Value Reference Range Comments POC-GLUCOSE METER (BEAKER) 130 mg/dL 70-110 TESTED AT [facility] [address] [facility] (test gvvo=0382) [facility] [address] POCT-GLUCOSE [id number] 17:40:00 Test Item Value Reference Range Comments POC-GLUCOSE METER (BEAKER) 72 mg/dL 70-110 TESTED AT [address] (test jvnz=6819) [facility] [address] RAD, CHEST, 1 VIEW, NON [id number] 17:08:00Reason for exam:-> sternotomyFINAL REPORT CLINICAL INDICATION: Postop Comparison: 10/25/2017 The cardiomediastinal contours are stable. Central pulmonary vascular prominence and bilateral parenchymal opacities are similar within variation of acquisition technique. Blunting of the costophrenic sulci may reflect trace effusions or pleural thickening. There is no pneumothorax. A tunneled right IJ dialysis catheter remains in place. Signed: Eliu Hassanort Verified Date/Time: 10/26/2017 17:08:24 Reading Location: [address] Reading Room Electronically signed by: ELIU HASSAN M.D.on 10/26/2017 05:08 PMPOCT-GLUCOSE [id number] 12:37:00 Test Item Value Reference Range Comments POC-GLUCOSE METER (BEAKER) 215 mg/dL 70-110 TESTED AT [facility] [address] [facility] (test tbvu=2994) [facility] [address] POCT-GLUCOSE [id number] 07:58:00 Test Item Value Reference Range Comments POC-GLUCOSE METER (BEAKER) 180 mg/dL 70-110 TESTED AT [facility] [address] [facility] (test bvzc=6536) [facility] [address] BASIC METABOLIC [id number] 06:13:00 Test Item Value Reference Range Comments SODIUM (BEAKER) (test 135 meq/L 136-145 exaz=692) POTASSIUM (BEAKER) (test 3.9 meq/L 3.5-5.1 main=775) CHLORIDE (BEAKER) (test 102 meq/L 98-107 tulm=317) CO2 (BEAKER) (test 21 meq/L 22-29 xeih=955) BLOOD UREA NITROGEN 49 mg/dL 7-21 (BEAKER) (test kpme=538) CREATININE (BEAKER) (test 6.12 mg/dL 0.57-1.25 gjer=889) GLUCOSE RANDOM (BEAKER) 158 mg/dL 70-105 (test eshw=529) CALCIUM (BEAKER) (test 8.5 mg/dL 8.4-10.2 srgt=780) EGFR (BEAKER) (test 11 mL/min/1.73 sq m ESTIMATED GFR IS NOT yexl=4081) ACCURATE CREATININE CLEARANCE IN PREDICTING GLOMERULAR FILTRATION RATE. ESTIMATED GFR IS NOT APPLICABLE FOR DIALYSIS PATIENTS. CBC W/PLT COUNT & AUTO [id number] 06:02:00 Test Item Value Reference Range Comments WHITE BLOOD CELL COUNT (BEAKER) (test eevq=777) 6.8 K/ L 3.5-10.5 RED BLOOD CELL COUNT (BEAKER) (test ktxd=470) 3.02 M/ L 4.63-6.08 HEMOGLOBIN (BEAKER) (test echm=028) 8.2 GM/DL 13.7-17.5 HEMATOCRIT (BEAKER) (test pwlx=454) 27.0 % 40.1-51.0 MEAN CORPUSCULAR VOLUME (BEAKER) (test ecfw=378) 89.4 fL 79.0-92.2 MEAN CORPUSCULAR HEMOGLOBIN (BEAKER) (test 27.2 pg 25.7-32.2 kthd=487) MEAN CORPUSCULAR HEMOGLOBIN CONC (BEAKER) (test 30.4 GM/DL 32.3-36.5 djez=477) RED CELL DISTRIBUTION WIDTH (BEAKER) (test 15.4 % 11.6-14.4 mblj=170) PLATELET COUNT (BEAKER) (test ejot=083) 116 K/CU MM 150-450 MEAN PLATELET VOLUME (BEAKER) (test qtgt=800) 12.1 fL 9.4-12.4 NUCLEATED RED BLOOD CELLS (BEAKER) (test 0 /100 WBC 0-0 gxnc=428) NEUTROPHILS RELATIVE PERCENT (BEAKER) (test 61 % lwsf=548) LYMPHOCYTES RELATIVE PERCENT (BEAKER) (test 26 % pypi=443) MONOCYTES RELATIVE PERCENT (BEAKER) (test 10 % tqyg=651) EOSINOPHILS RELATIVE PERCENT (BEAKER) (test 2 % xuhx=032) BASOPHILS RELATIVE PERCENT (BEAKER) (test 1 % xxze=934) NEUTROPHILS ABSOLUTE COUNT (BEAKER) (test 4.13 K/ L 1.78-5.38 vnin=572) LYMPHOCYTES ABSOLUTE COUNT (BEAKER) (test 1.75 K/ L 1.32-3.57 ihyb=753) MONOCYTES ABSOLUTE COUNT (BEAKER) (test 0.65 K/ L 0.30-0.82 fbty=454) EOSINOPHILS ABSOLUTE COUNT (BEAKER) (test 0.16 K/ L 0.04-0.54 kttl=548) BASOPHILS ABSOLUTE COUNT (BEAKER) (test 0.04 K/ L 0.01-0.08 ffat=065) IMMATURE GRANULOCYTES-RELATIVE PERCENT (BEAKER) 0 % 0-1 (test lgou=7378) POCT-GLUCOSE [id number] 20:48:00 Test Item Value Reference Range Comments POC-GLUCOSE METER (BEAKER) 222 mg/dL 70-110 TESTED AT [facility] [address] [facility] (test pspr=2761) [facility] [address] POCT-GLUCOSE [id number] 18:04:00 Test Item Value Reference Range Comments POC-GLUCOSE METER (BEAKER) 188 mg/dL 70-110 TESTED AT [address] (test vunk=6419) [place] [address] POCT-GLUCOSE [id number] 13:33:00 Test Item Value Reference Range Comments POC-GLUCOSE METER (BEAKER) 196 mg/dL 70-110 TESTED AT [address] (test pdbd=3653) [place] [address] BASIC METABOLIC [id number] 12:01:00 Test Item Value Reference Range Comments SODIUM (BEAKER) (test 137 meq/L 136-145 qjbp=807) POTASSIUM (BEAKER) (test 4.3 meq/L 3.5-5.1 rgzc=929) CHLORIDE (BEAKER) (test 102 meq/L 98-107 lqcc=505) CO2 (BEAKER) (test 22 meq/L 22-29 xrpw=307) BLOOD UREA NITROGEN 35 mg/dL 7-21 (BEAKER) (test qycz=341) CREATININE (BEAKER) (test 4.85 mg/dL 0.57-1.25 drbg=831) GLUCOSE RANDOM (BEAKER) 169 mg/dL 70-105 (test patf=726) CALCIUM (BEAKER) (test 8.3 mg/dL 8.4-10.2 axfw=817) EGFR (BEAKER) (test 15 mL/min/1.73 sq m ESTIMATED GFR IS NOT dxym=8538) ACCURATE CREATININE CLEARANCE IN PREDICTING GLOMERULAR FILTRATION RATE. ESTIMATED GFR IS NOT APPLICABLE FOR DIALYSIS PATIENTS. POCT-GLUCOSE [id number] 11:59:00 Test Item Value Reference Range Comments POC-GLUCOSE METER (BEAKER) 194 mg/dL 70-110 TESTED AT [address] (test bacw=4636) [place] [address] CBC W/PLT COUNT & AUTO [id number] 11:39:00 Test Item Value Reference Range Comments WHITE BLOOD CELL COUNT (BEAKER) (test esat=989) 6.8 K/ L 3.5-10.5 RED BLOOD CELL COUNT (BEAKER) (test xqim=056) 3.28 M/ L 4.63-6.08 HEMOGLOBIN (BEAKER) (test atda=687) 8.9 GM/DL 13.7-17.5 HEMATOCRIT (BEAKER) (test jzzm=546) 31.0 % 40.1-51.0 MEAN CORPUSCULAR VOLUME (BEAKER) (test rwnj=841) 94.5 fL 79.0-92.2 MEAN CORPUSCULAR HEMOGLOBIN (BEAKER) (test 27.1 pg 25.7-32.2 jzzn=783) MEAN CORPUSCULAR HEMOGLOBIN CONC (BEAKER) (test 28.7 GM/DL 32.3-36.5 udxb=586) RED CELL DISTRIBUTION WIDTH (BEAKER) (test 16.1 % 11.6-14.4 uxwc=081) PLATELET COUNT (BEAKER) (test zpwx=179) 110 K/CU MM 150-450 MEAN PLATELET VOLUME (BEAKER) (test xfbc=855) 12.4 fL 9.4-12.4 NUCLEATED RED BLOOD CELLS (BEAKER) (test 0 /100 WBC 0-0 ykkl=462) NEUTROPHILS RELATIVE PERCENT (BEAKER) (test 71 % ldkj=685) LYMPHOCYTES RELATIVE PERCENT (BEAKER) (test 19 % bagt=220) MONOCYTES RELATIVE PERCENT (BEAKER) (test 9 % fmpa=785) EOSINOPHILS RELATIVE PERCENT (BEAKER) (test 1 % jzzk=956) BASOPHILS RELATIVE PERCENT (BEAKER) (test 0 % cjvt=615) NEUTROPHILS ABSOLUTE COUNT (BEAKER) (test 4.78 K/ L 1.78-5.38 zwkl=226) LYMPHOCYTES ABSOLUTE COUNT (BEAKER) (test 1.26 K/ L 1.32-3.57 uwlj=675) MONOCYTES ABSOLUTE COUNT (BEAKER) (test 0.62 K/ L 0.30-0.82 ddat=090) EOSINOPHILS ABSOLUTE COUNT (BEAKER) (test 0.04 K/ L 0.04-0.54 ncmd=672) BASOPHILS ABSOLUTE COUNT (BEAKER) (test 0.03 K/ L 0.01-0.08 djtv=616) IMMATURE GRANULOCYTES-RELATIVE PERCENT (BEAKER) 0 % 0-1 (test korz=1500) RAD, CHEST, 1 VIEW, NON [id number] 09:03:00Reason for exam:->S/p CABGShould this be performed [...] Verified Date/Time : 10/25/2017 09:03:01 Reading Location: [facility] B1 [id number] Ortho Consult Reading Room 09: 03 AMPOCT-GLUCOSE [id number] 20:54:00 Test Item Value Reference Range Comments POC-GLUCOSE METER (BEAKER) 183 mg/dL 70-110 TESTED AT [facility] [address] [place] [address] (test qzpr=9486) [facility] [address] HEPATITIS B SURFACE [id number] 16:24:00 Test Item Value Reference Range Comments HEPATITIS B SURFACE ANTIGEN (2) (BEAKER) (test Nonreactive Nonreactive nyab=5137) For chronic HD patients, draw HBsAg with each admission then every 30 days.RAD, CHEST, 1 VIEW, NON [id number] 13:31:00Reason for exam:->air leak from chest tubes. [...] NapierMDReport Verified Date/Time: 10/24/2017 13:31:11 Reading Location: [facility] Radiology Reading Room HEMOGLOBIN AND [id number] 09:47:00 Test Item Value Reference Range Comments HEMOGLOBIN (BEAKER) (test cugq=383) 9.9 GM/DL 13.7-17.5 HEMATOCRIT (BEAKER) (test rqme=046) 31.7 % 40.1-51.0 POCT-GLUCOSE [id number] 09:38:00 Test Item Value Reference Range Comments POC-GLUCOSE METER (BEAKER) 200 mg/dL 70-110 TESTED AT [address] (test jkel=4218) [facility] [address] POCT-GLUCOSE [id number] 04:46:00 Test Item Value Reference Range Comments POC-GLUCOSE METER (BEAKER) 129 mg/dL 70-110 TESTED AT [address] (test czcj=2945) [facility] [facility] [address] POCT-GLUCOSE [id number] 04:46:00 Test Item Value Reference Range Comments POC-GLUCOSE METER (BEAKER) 172 mg/dL 70-110 TESTED AT [address] (test inek=6659) [facility] [address] BASIC METABOLIC [id number] 04:01:00 Test Item Value Reference Range Comments SODIUM (BEAKER) (test 139 meq/L 136-145 lgex=311) POTASSIUM (BEAKER) (test 5.6 meq/L 3.5-5.1 pran=109) CHLORIDE (BEAKER) (test 109 meq/L 98-107 bsbz=152) CO2 (BEAKER) (test 19 meq/L 22-29 fjhl=935) BLOOD UREA NITROGEN 54 mg/dL 7-21 (BEAKER) (test dpjl=540) CREATININE (BEAKER) (test 5.66 mg/dL 0.57-1.25 cahk=963) GLUCOSE RANDOM (BEAKER) 164 mg/dL 70-105 (test jztd=081) CALCIUM (BEAKER) (test 9.2 mg/dL 8.4-10.2 xifn=906) EGFR (BEAKER) (test 12 mL/min/1.73 sq m ESTIMATED GFR IS NOT rszs=5908) ACCURATE CREATININE CLEARANCE IN PREDICTING GLOMERULAR FILTRATION RATE. ESTIMATED GFR IS NOT APPLICABLE FOR DIALYSIS PATIENTS. [id number] 03:58:00 Test Item Value Reference Range Comments PHOSPHORUS (BEAKER) (test zazh=526) 5.3 mg/dL 2.3-4.7 [id number] 03:58:00 Test Item Value Reference Range Comments MAGNESIUM (BEAKER) (test eokv=348) 3.2 mg/dL 1.6-2.6 CALCIUM, [id number] 03:56:00 Test Item Value Reference Range Comments CALCIUM IONIZED (BEAKER) (test omtl=773) 1.17 mmol/L 1.12-1.27 PH, BLOOD (BEAKER) (test khcj=4926) 7.29 RAD, CHEST, 1 VIEW, NON [id number] 03:56:00while patient is intubated or has chest [...] Verified Date/Time: 10/24/2017 03:56:43 Reading Location : [address] Reading Room LACTIC ACID, ARTERIAL, WHOLE [id number] 03:54:00 Test Item Value Reference Range Comments LACTATE BLOOD ARTERIAL (2) (BEAKER) (test 0.7 mmol/L 0.5-2.2 rjuv=3106) Effective 10/18/2015: Units/Reference Range ChangeNew: 0.5-2.2 mmol/L Previous: 5 -20 mg/dLOXYGEN SATURATION, [id number] 03:53:00 Test Item Value Reference Range Comments O2 SATURATION (MEASURED) (BEAKER) (test kiag=5601) 72.5 % CBC W/PLT COUNT & AUTO [id number] 03:44:00 Test Item Value Reference Range Comments WHITE BLOOD CELL COUNT (BEAKER) (test hvqd=098) 9.5 K/ L 3.5-10.5 RED BLOOD CELL COUNT (BEAKER) (test efsk=927) 3.55 M/ L 4.63-6.08 HEMOGLOBIN (BEAKER) (test oeir=094) 9.7 GM/DL 13.7-17.5 HEMATOCRIT (BEAKER) (test uqtu=157) 31.2 % 40.1-51.0 MEAN CORPUSCULAR VOLUME (BEAKER) (test yzjl=898) 87.9 fL 79.0-92.2 MEAN CORPUSCULAR HEMOGLOBIN (BEAKER) (test 27.3 pg 25.7-32.2 qslp=809) MEAN CORPUSCULAR HEMOGLOBIN CONC (BEAKER) (test 31.1 GM/DL 32.3-36.5 nrjk=947) RED CELL DISTRIBUTION WIDTH (BEAKER) (test 16.3 % 11.6-14.4 texe=664) PLATELET COUNT (BEAKER) (test kbmx=477) 118 K/CU MM 150-450 MEAN PLATELET VOLUME (BEAKER) (test rqvv=840) 11.8 fL 9.4-12.4 NUCLEATED RED BLOOD CELLS (BEAKER) (test 0 /100 WBC 0-0 boyp=967) NEUTROPHILS RELATIVE PERCENT (BEAKER) (test 79 % qios=686) LYMPHOCYTES RELATIVE PERCENT (BEAKER) (test 12 % zemb=226) MONOCYTES RELATIVE PERCENT (BEAKER) (test 8 % dbcg=527) EOSINOPHILS RELATIVE PERCENT (BEAKER) (test 0 % bqfi=178) BASOPHILS RELATIVE PERCENT (BEAKER) (test 0 % swnh=082) NEUTROPHILS ABSOLUTE COUNT (BEAKER) (test 7.55 K/ L 1.78-5.38 woyl=718) LYMPHOCYTES ABSOLUTE COUNT (BEAKER) (test 1.10 K/ L 1.32-3.57 rmat=300) MONOCYTES ABSOLUTE COUNT (BEAKER) (test 0.80 K/ L 0.30-0.82 efxe=824) EOSINOPHILS ABSOLUTE COUNT (BEAKER) (test 0.01 K/ L 0.04-0.54 wvvn=714) BASOPHILS ABSOLUTE COUNT (BEAKER) (test 0.03 K/ L 0.01-0.08 elwp=274) IMMATURE GRANULOCYTES-RELATIVE PERCENT (BEAKER) 0 % 0-1 (test yiod=7674) POCT-GLUCOSE [id number] 22:48:00 Test Item Value Reference Range Comments POC-GLUCOSE METER (BEAKER) 162 mg/dL 70-110 TESTED AT [place] [address] [address]OS[address] (test mytl=5024) [facility] [address] POCT-GLUCOSE [id number] 22:48:00 Test Item Value Reference Range Comments POC-GLUCOSE METER (BEAKER) 163 mg/dL 70-110 TESTED AT [address] (test yqbk=7095) [facility] [address] POCT-GLUCOSE [id number] 22:48:00 Test Item Value Reference Range Comments POC-GLUCOSE METER (BEAKER) 113 mg/dL 70-110 TESTED AT [address] (test qqez=3195) [facility] [address] POCT-GLUCOSE [id number] 22:48:00 Test Item Value Reference Range Comments POC-GLUCOSE METER (BEAKER) 83 mg/dL 70-110 TESTED AT [address] (test timr=6466) [facility] [address] POCT-GLUCOSE [id number] 22:48:00 Test Item Value Reference Range Comments POC-GLUCOSE METER (BEAKER) 114 mg/dL 70-110 TESTED AT [address] (test amqs=1562) [place] [address] BLOOD GAS, [id number] 17:05:00 Test Item Value Reference Range Comments PH ARTERIAL (BEAKER) (test wdvj=561) 7.43 7.35-7.45 PCO2 ARTERIAL (BEAKER) (test rmwt=374) 32 mmHg 35-45 PO2 ARTERIAL (BEAKER) (test nhvt=065) 184 mmHg 80-90 O2 SATURATION ARTERIAL (BEAKER) (test fgxu=026) 99.3 % 96.0-97.0 HCO3 ARTERIAL (BEAKER) (test rarv=977) 21 mmol/L 21-29 BASE EXCESS ARTERIAL (BEAKER) (test vqse=369) -3.0 mmol/L -2.0-3.0 PATIENT TEMPERATURE (BEAKER) (test qstk=6185) 36.7 C FIO2 (BEAKER) (test dsdv=1972) 40.0 % POCT-GLUCOSE [id number] 15:59:00 Test Item Value Reference Range Comments POC-GLUCOSE METER (BEAKER) 197 mg/dL 70-110 TESTED AT [address] (test fgwg=2241) [place] [id number] POCT-GLUCOSE [id number] 15:59:00 Test Item Value Reference Range Comments POC-GLUCOSE METER (BEAKER) 218 mg/dL 70-110 TESTED AT [address] (test laan=7531) [place] [address] BLOOD GAS, [id number] 14:11:00 Test Item Value Reference Range Comments PH ARTERIAL (BEAKER) (test qhzx=575) 7.39 7.35-7.45 PCO2 ARTERIAL (BEAKER) (test ahqd=848) 31 mmHg 35-45 PO2 ARTERIAL (BEAKER) (test tesj=834) 164 mmHg 80-90 O2 SATURATION ARTERIAL (BEAKER) (test ghvj=770) 99.1 % 96.0-97.0 HCO3 ARTERIAL (BEAKER) (test hibr=294) 18 mmol/L 21-29 BASE EXCESS ARTERIAL (BEAKER) (test bshy=164) -5.7 mmol/L -2.0-3.0 PATIENT TEMPERATURE (BEAKER) (test xkwm=9655) 36.7 C FIO2 (BEAKER) (test qhbv=7293) 40.0 % GLUCOSE-STAT [id number] 14:11:00 Test Item Value Reference Range Comments GLUCOSE RANDOM (BEAKER) (test awyp=883) 235 mg/dL 70-110 HEMOGLOBIN [id number] 14:09:00 Test Item Value Reference Range Comments HEMOGLOBIN A1C (BEAKER) (test dftr=288) 7.0 % 4.3-6.1 BASIC METABOLIC [id number] 12:49:00 Test Item Value Reference Range Comments SODIUM (BEAKER) (test 138 meq/L 136-145 zxew=766) POTASSIUM (BEAKER) (test 4.1 meq/L 3.5-5.1 sosr=003) CHLORIDE (BEAKER) (test 109 meq/L 98-107 eifb=567) CO2 (BEAKER) (test 17 meq/L 22-29 tnyn=769) BLOOD UREA NITROGEN 46 mg/dL 7-21 (BEAKER) (test brau=980) CREATININE (BEAKER) (test 4.91 mg/dL 0.57-1.25 vgka=790) GLUCOSE RANDOM (BEAKER) 282 mg/dL 70-105 (test qxks=035) CALCIUM (BEAKER) (test 9.5 mg/dL 8.4-10.2 osop=183) EGFR (BEAKER) (test 14 mL/min/1.73 sq m ESTIMATED GFR IS NOT ovqk=0746) ACCURATE CREATININE CLEARANCE IN PREDICTING GLOMERULAR FILTRATION RATE. ESTIMATED GFR IS NOT APPLICABLE FOR DIALYSIS PATIENTS. [id number] 12:41:00 Test Item Value Reference Range Comments POTASSIUM (BEAKER) (test tbfj=864) 4.1 meq/L 3.5-5.1 [id number] 12:41:00 Test Item Value Reference Range Comments MAGNESIUM (BEAKER) (test mpfg=791) 3.2 mg/dL 1.6-2.6 [id number] 12:41:00 Test Item Value Reference Range Comments PHOSPHORUS (BEAKER) (test qtel=838) 4.1 mg/dL 2.3-4.7 [id number] 12:41:00 Test Item Value Reference Range Comments SODIUM (BEAKER) (test alma=228) 138 meq/L 136-145 [id number] 12:41:00 Test Item Value Reference Range Comments GLUCOSE RANDOM (BEAKER) (test lmnj=485) 282 mg/dL 70-105 RAD, CHEST, 1 VIEW, NON [id number] 12:40:00Reason for exam:->s/p cardiac surgeryShould this be [...] Michelle MDReportVerified Date/Time: 10/23/2017 12:40:37 Reading Location: [facility] Radiology Reading Room LACTIC ACID, ARTERIAL, WHOLE [id number] 12:37:00 Test Item Value Reference Range Comments LACTATE BLOOD ARTERIAL (2) (BEAKER) (test 1.3 mmol/L 0.5-2.2 hvgg=1492) Effective 10/18/2015: Units/Reference Range ChangeNew: 0.5-2.2 mmol/L Previous: 5 -20 mg/dLPROTHROMBIN [id number] 12:36:00 Test Item Value Reference Range Comments PROTIME (BEAKER) (test kozw=873) 16.1 seconds 11.7-14.7 INR (BEAKER) (test nrfo=390) 1.3 <=5.9 RECOMMENDED COUMADIN/WARFARIN INR THERAPY RANGESSTANDARD DOSE: 2.0 - 3.0 Includes: PROPHYLAXIS forvenous thrombosis, systemic embolization; TREATMENT for venous thrombosis and/or pulmonary embolus.HIGH RISK: Target INR is 2.5-3.5 for patients with mechanical heart valves.[id number] 12:36:00 Test Item Value Reference Range Comments FIBRINOGEN LEVEL (BEAKER) (test pyoc=564) 206 mg/dl 225-434 [id number] 12:36:00 Test Item Value Reference Range Comments PARTIAL THROMBOPLASTIN TIME (BEAKER) (test 32.0 seconds 22.5-36.0 imdv=654) BLOOD GAS, [id number] 12:25:00 Test Item Value Reference Range Comments PH ARTERIAL (BEAKER) (test vfde=186) 7.33 7.35-7.45 PCO2 ARTERIAL (BEAKER) (test arcd=756) 37 mmHg 35-45 PO2 ARTERIAL (BEAKER) (test njvh=848) 218 mmHg 80-90 O2 SATURATION ARTERIAL (BEAKER) (test lgmt=090) 99.4 % 96.0-97.0 HCO3 ARTERIAL (BEAKER) (test kfow=536) 19 mmol/L 21-29 BASE EXCESS ARTERIAL (BEAKER) (test ovjy=100) -6.1 mmol/L -2.0-3.0 PATIENT TEMPERATURE (BEAKER) (test efwj=1077) 36.5 C FIO2 (BEAKER) (test jjep=0514) 60.0 % GLUCOSE-STAT [id number] 12:25:00 Test Item Value Reference Range Comments GLUCOSE RANDOM (BEAKER) (test zivn=085) 243 mg/dL 70-110 HGB/HCT (H&H) - STAT [id number] 12:25:00 Test Item Value Reference Range Comments HEMOGLOBIN (BEAKER) (test lvab=853) 10.9 g/dL 13.0-16.8 HEMATOCRIT (BEAKER) (test zlvj=507) 32.0 % 40.0-50.0 CALCIUM, [id number] 12:25:00 Test Item Value Reference Range Comments CALCIUM IONIZED (BEAKER) (test slgh=562) 1.28 mmol/L 1.12-1.27 PH, BLOOD (BEAKER) (test osni=2830) 7.33 OXYGEN SATURATION, [id number] 12:25:00 Test Item Value Reference Range Comments O2 SATURATION (MEASURED) (BEAKER) (test fxxe=2639) 85.6 % From distal port of IJ central venous catheterCBC W/PLT COUNT & AUTO [id number] 12:24:00 Test Item Value Reference Range Comments WHITE BLOOD CELL COUNT (BEAKER) (test xfyz=084) 14.7 K/ L 3.5-10.5 RED BLOOD CELL COUNT (BEAKER) (test pqad=876) 3.74 M/ L 4.63-6.08 HEMOGLOBIN (BEAKER) (test axnm=804) 10.3 GM/DL 13.7-17.5 HEMATOCRIT (BEAKER) (test isxg=187) 33.2 % 40.1-51.0 MEAN CORPUSCULAR VOLUME (BEAKER) (test aomf=628) 88.8 fL 79.0-92.2 MEAN CORPUSCULAR HEMOGLOBIN (BEAKER) (test 27.5 pg 25.7-32.2 wgma=795) MEAN CORPUSCULAR HEMOGLOBIN CONC (BEAKER) (test 31.0 GM/DL 32.3-36.5 teok=307) RED CELL DISTRIBUTION WIDTH (BEAKER) (test 15.8 % 11.6-14.4 ixyd=230) PLATELET COUNT (BEAKER) (test xayy=180) 138 K/CU MM 150-450 MEAN PLATELET VOLUME (BEAKER) (test pvwt=633) 11.5 fL 9.4-12.4 NUCLEATED RED BLOOD CELLS (BEAKER) (test 0 /100 WBC 0-0 mzee=048) NEUTROPHILS RELATIVE PERCENT (BEAKER) (test 63 % djya=298) LYMPHOCYTES RELATIVE PERCENT (BEAKER) (test 28 % cnzp=034) MONOCYTES RELATIVE PERCENT (BEAKER) (test 6 % hbcs=621) EOSINOPHILS RELATIVE PERCENT (BEAKER) (test 1 % dbhi=319) BASOPHILS RELATIVE PERCENT (BEAKER) (test 1 % vcrv=258) NEUTROPHILS ABSOLUTE COUNT (BEAKER) (test 9.30 K/ L 1.78-5.38 kffd=584) LYMPHOCYTES ABSOLUTE COUNT (BEAKER) (test 4.14 K/ L 1.32-3.57 jydq=026) MONOCYTES ABSOLUTE COUNT (BEAKER) (test 0.87 K/ L 0.30-0.82 hhpq=724) EOSINOPHILS ABSOLUTE COUNT (BEAKER) (test 0.21 K/ L 0.04-0.54 chmz=639) BASOPHILS ABSOLUTE COUNT (BEAKER) (test 0.07 K/ L 0.01-0.08 uzwq=354) IMMATURE GRANULOCYTES-RELATIVE PERCENT (BEAKER) 1 % 0-1 (test fqyt=1716) POTASSIUM-STAT [id number] 12:24:00 Test Item Value Reference Range Comments POTASSIUM (BEAKER) (test fcpb=110) 3.9 meq/L 3.6-5.5 [id number] 11:30:00 Test Item Value Reference Range Comments ACTIVATED CLOTTING TIME 114 sec TESTED AT [place] [address] [facility] (BEAKER) (test bjje=464) [place] [address] [id number] 11:30:00 Test Item Value Reference Range Comments ACTIVATED CLOTTING TIME 472 sec TESTED AT [address] (BEAKER) (test wnfd=581) [place] [address] [id number] 11:30:00 Test Item Value Reference Range Comments ACTIVATED CLOTTING TIME 428 sec TESTED AT [place] [address] [facility] (BEAKER) (test zsgj=571) [place] [address] [id number] 11:30:00 Test Item Value Reference Range Comments ACTIVATED CLOTTING TIME 411 sec TESTED AT [place] [address] [facility] (BEAKER) (test tdga=080) [place] [address] [id number] 11:30:00 Test Item Value Reference Range Comments ACTIVATED CLOTTING TIME 153 sec TESTED AT [place] [address] [facility] (BEAKER) (test qjts=983) [place] [address] THROMBOELASTOGRAPH ([id number] 11:07:00 Test Item Value Reference Range Comments TEG ACTIVATED CLOTTING TIME (BEAKER) (test 7.2 minutes 4.0-7.0 rflo=9549) TEG FIBRINOGEN ACTIVITY (BEAKER) (test 64.0 degrees 61.0-73.0 ookr=1450) TEG PLT. AGGREGATION (BEAKER) (test edyb=9308) 39.7 MM 55.0-65.0 TGH ACTIVATED CLOTTING TIME (BEAKER) (test 7.5 minutes 4.0-7.0 tfci=1886) TGH FIBRINOGEN ACTIVITY (BEAKER) (test 66.0 degrees 61.0-73.0 dzmx=7146) TGH PLT. AGGREGATION (BEAKER) (test imrj=1927) 58.6 MM 55.0-65.0 [id number] 10:42:00 Test Item Value Reference Range Comments FIBRINOGEN LEVEL (BEAKER) (test fuwm=823) 181 mg/dl 225-434 [id number] 10:37:00 Test Item Value Reference Range Comments PARTIAL THROMBOPLASTIN TIME (BEAKER) (test 37.9 seconds 22.5-36.0 xsbi=329) PROTHROMBIN [id number] 10:36:00 Test Item Value Reference Range Comments PROTIME (BEAKER) (test qeuh=673) 18.7 seconds 11.7-14.7 INR (BEAKER) (test htbz=930) 1.6 <=5.9 RECOMMENDED COUMADIN/WARFARIN INR THERAPY RANGESSTANDARD DOSE: 2.0 - 3.0 Includes: PROPHYLAXIS forvenous thrombosis, systemic embolization; TREATMENT for venous thrombosis and/or pulmonary embolus.HIGH RISK: Target INR is 2.5-3.5 for patients with mechanical heart valves.PLATELET [id number] 10:30:00 Test Item Value Reference Range Comments PLATELET COUNT (BEAKER) (test snqo=221) 80 K/CU MM 150-450 BLOOD GAS, [id number] 10:21:00 Test Item Value Reference Range Comments PH ARTERIAL (BEAKER) (test fxmr=474) 7.35 7.35-7.45 PCO2 ARTERIAL (BEAKER) (test tmaa=915) 45 mmHg 35-45 PO2 ARTERIAL (BEAKER) (test dqff=053) 358 mmHg 80-90 O2 SATURATION ARTERIAL (BEAKER) (test qvnq=060) 99.8 % 96.0-97.0 HCO3 ARTERIAL (BEAKER) (test yeed=576) 25 mmol/L 21-29 BASE EXCESS ARTERIAL (BEAKER) (test suhf=588) -1.4 mmol/L -2.0-3.0 PATIENT TEMPERATURE (BEAKER) (test myun=4626) 36.0 C FIO2 (BEAKER) (test owgo=8181) 100.0 % SODIUM NA-STAT [id number] 10:21:00 Test Item Value Reference Range Comments SODIUM (BEAKER) (test pehf=658) 133 meq/L 135-148 POTASSIUM-STAT [id number] 10:21:00 Test Item Value Reference Range Comments POTASSIUM (BEAKER) (test ccke=729) 5.6 meq/L 3.6-5.5 GLUCOSE-STAT [id number] 10:21:00 Test Item Value Reference Range Comments GLUCOSE RANDOM (BEAKER) (test obxf=873) 127 mg/dL 70-110 HGB/HCT (H&H) - STAT [id number] 10:21:00 Test Item Value Reference Range Comments HEMOGLOBIN (BEAKER) (test ywko=350) 8.7 g/dL 13.0-16.8 HEMATOCRIT (BEAKER) (test tces=018) 26.0 % 40.0-50.0 CALCIUM, [id number] 10:21:00 Test Item Value Reference Range Comments CALCIUM IONIZED (BEAKER) (test nbhg=597) 1.05 mmol/L 1.12-1.27 PH, BLOOD (BEAKER) (test fmda=0335) 7.34 POTASSIUM-STAT [id number] 09:58:00 Test Item Value Reference Range Comments POTASSIUM (BEAKER) (test gywt=448) 6.0 meq/L 3.6-5.5 SPECIMEN NOT HEMOLYZED CALCIUM, [id number] 09:57:00 Test Item Value Reference Range Comments CALCIUM IONIZED (BEAKER) (test zyzx=066) 0.79 mmol/L 1.12-1.27 PH, BLOOD (BEAKER) (test ezlm=3040) 7.30 BLOOD GAS, [id number] 09:53:00 Test Item Value Reference Range Comments PH ARTERIAL (BEAKER) (test oyao=808) 7.32 7.35-7.45 PCO2 ARTERIAL (BEAKER) (test gwkd=498) 40 mmHg 35-45 PO2 ARTERIAL (BEAKER) (test xzbe=625) 259 mmHg 80-90 O2 SATURATION ARTERIAL (BEAKER) (test xtdt=731) 99.6 % 96.0-97.0 HCO3 ARTERIAL (BEAKER) (test styx=133) 21 mmol/L 21-29 BASE EXCESS ARTERIAL (BEAKER) (test opqh=937) -5.4 mmol/L -2.0-3.0 PATIENT TEMPERATURE (BEAKER) (test tavn=1828) 34.9 C FIO2 (BEAKER) (test lffj=8697) 70.0 % SODIUM NA-STAT [id number] 09:53:00 Test Item Value Reference Range Comments SODIUM (BEAKER) (test rsjv=157) 132 meq/L 135-148 GLUCOSE-STAT [id number] 09:53:00 Test Item Value Reference Range Comments GLUCOSE RANDOM (BEAKER) (test bxwf=942) 121 mg/dL 70-110 HGB/HCT (H&H) - STAT [id number] 09:53:00 Test Item Value Reference Range Comments HEMOGLOBIN (BEAKER) (test fsvt=384) 7.1 g/dL 13.0-16.8 HEMATOCRIT (BEAKER) (test uurl=888) 21.0 % 40.0-50.0 SODIUM NA-STAT [id number] 09:39:00 Test Item Value Reference Range Comments SODIUM (BEAKER) (test cqqh=693) 136 meq/L 135-148 POTASSIUM-STAT [id number] 09:39:00 Test Item Value Reference Range Comments POTASSIUM (BEAKER) (test ugcv=727) 5.5 meq/L 3.6-5.5 BLOOD GAS, [id number] 09:39:00 Test Item Value Reference Range Comments PH ARTERIAL (BEAKER) (test rpfe=707) 7.39 7.35-7.45 PCO2 ARTERIAL (BEAKER) (test duxy=941) 36 mmHg 35-45 PO2 ARTERIAL (BEAKER) (test cpfq=754) 211 mmHg 80-90 O2 SATURATION ARTERIAL (BEAKER) (test uwws=766) 99.4 % 96.0-97.0 HCO3 ARTERIAL (BEAKER) (test osfn=737) 24 mmol/L 21-29 BASE EXCESS ARTERIAL (BEAKER) (test wydx=797) -3.3 mmol/L -2.0-3.0 PATIENT TEMPERATURE (BEAKER) (test tzgc=0734) 28.0 C FIO2 (BEAKER) (test zget=2160) 60.0 % GLUCOSE-STAT [id number] 09:39:00 Test Item Value Reference Range Comments GLUCOSE RANDOM (BEAKER) (test eilr=275) 122 mg/dL 70-110 HGB/HCT (H&H) - STAT [id number] 09:39:00 Test Item Value Reference Range Comments HEMOGLOBIN (BEAKER) (test aefh=426) 6.4 g/dL 13.0-16.8 HEMATOCRIT (BEAKER) (test tvfd=950) 19.0 % 40.0-50.0 SODIUM NA-STAT [id number] 07:56:00 Test Item Value Reference Range Comments SODIUM (BEAKER) (test fhqz=158) 140 meq/L 135-148 POTASSIUM-STAT [id number] 07:56:00 Test Item Value Reference Range Comments POTASSIUM (BEAKER) (test jouh=247) 4.2 meq/L 3.6-5.5 BLOOD GAS, [id number] 07:56:00 Test Item Value Reference Range Comments PH ARTERIAL (BEAKER) (test obvj=524) 7.32 7.35-7.45 PCO2 ARTERIAL (BEAKER) (test tawb=176) 52 mmHg 35-45 PO2 ARTERIAL (BEAKER) (test xqcf=797) 200 mmHg 80-90 O2 SATURATION ARTERIAL (BEAKER) (test ipsi=439) 99.3 % 96.0-97.0 HCO3 ARTERIAL (BEAKER) (test kltl=335) 26 mmol/L 21-29 BASE EXCESS ARTERIAL (BEAKER) (test pdjr=437) -0.5 mmol/L -2.0-3.0 PATIENT TEMPERATURE (BEAKER) (test qujn=8470) 36.0 C FIO2 (BEAKER) (test xtyc=3522) 100.0 % GLUCOSE-STAT [id number] 07:56:00 Test Item Value Reference Range Comments GLUCOSE RANDOM (BEAKER) (test xbvm=848) 137 mg/dL 70-110 HGB/HCT (H&H) - STAT [id number] 07:56:00 Test Item Value Reference Range Comments HEMOGLOBIN (BEAKER) (test pecn=495) 10.5 g/dL 13.0-16.8 HEMATOCRIT (BEAKER) (test bsyc=546) 31.0 % 40.0-50.0 GLUCOSE-STAT [id number] 06:33:00 Test Item Value Reference Range Comments GLUCOSE RANDOM (BEAKER) (test vlkp=542) 122 mg/dL 70-110 HGB/HCT (H&H) - STAT [id number] 06:33:00 Test Item Value Reference Range Comments HEMOGLOBIN (BEAKER) (test tdeg=329) 11.4 g/dL 13.0-16.8 HEMATOCRIT (BEAKER) (test thug=580) 34.0 % 40.0-50.0 POTASSIUM-STAT [id number] 06:32:00 Test Item Value Reference Range Comments POTASSIUM (BEAKER) (test bput=252) 4.2 meq/L 3.6-5.5 RAD, CHEST, 2 [id number] 11:29:00Reason for Exam:->Pre-OpFINAL REPORT Chest 2 views 10/21/2017 11:28 AM CLINICAL HISTORY: Pre-Op , chest pain COMPARISON: 08/07/2017 FINDINGS: The lungs are clear. Cardiomediastinal contours are within normal limits. The central pulmonary vasculature is not engorged. A right hemodialysis catheter is present.The visualized skeleton is intact. IMPRESSION: No acute radiographic abnormalities. Signed: González Michelle Verified Date/Time: 10/21/2017 11:29:02 Reading Location: [facility] Radiology Reading Room COMPREHENSIVE METABOLIC [id number] 11:23:00 Test Item Value Reference Range Comments TOTAL PROTEIN (BEAKER) 7.1 gm/dL 6.0-8.3 (test ksoz=110) ALBUMIN (BEAKER) (test 4.2 g/dL 3.5-5.0 tuas=9017) ALKALINE PHOSPHATASE 44 U/L 40-150 (BEAKER) (test loia=834) BILIRUBIN TOTAL (BEAKER) 0.3 mg/dL 0.2-1.2 (test licx=211) SODIUM (BEAKER) (test 137 meq/L 136-145 tdaq=470) POTASSIUM (BEAKER) (test 4.9 meq/L 3.5-5.1 ywsa=697) CHLORIDE (BEAKER) (test 102 meq/L 98-107 yzgn=663) CO2 (BEAKER) (test 24 meq/L 22-29 isnn=245) BLOOD UREA NITROGEN 42 mg/dL 7-21 (BEAKER) (test iskl=970) CREATININE (BEAKER) (test 5.38 mg/dL 0.57-1.25 iysb=599) GLUCOSE RANDOM (BEAKER) 132 mg/dL 70-105 (test clmm=635) CALCIUM (BEAKER) (test 8.5 mg/dL 8.4-10.2 jvlz=012) AST (SGOT) (BEAKER) (test 14 U/L 5-34 hthm=913) ALT (SGPT) (BEAKER) (test 10 U/L 6-55 ebvl=270) EGFR (BEAKER) (test 13 mL/min/1.73 sq m ESTIMATED GFR IS NOT mxba=4521) ACCURATE CREATININE CLEARANCE IN PREDICTING GLOMERULAR FILTRATION RATE. ESTIMATED GFR IS NOT APPLICABLE FOR DIALYSIS PATIENTS. CREATINE KINASE (CK)2017-10-21 11:20:00 Test Item Value Reference Range Comments CREATINE KINASE TOTAL (BEAKER) (test hiox=899) 108 U/L 29-200 [id number] 11:09:00 Test Item Value Reference Range Comments FIBRINOGEN LEVEL (BEAKER) (test xtjh=585) 337 mg/dl 225-434 [id number] 11:09:00 Test Item Value Reference Range Comments PROTIME (BEAKER) (test zubz=982) 13.7 seconds 11.7-14.7 INR (BEAKER) (test fkvt=032) 1.1 <=5.9 PARTIAL THROMBOPLASTIN TIME (BEAKER) (test 33.1 seconds 22.5-36.0 ghqv=822) RECOMMENDED COUMADIN/WARFARIN INR THERAPY RANGESSTANDARD DOSE: 2.0 - 3.0 Includes: PROPHYLAXIS forvenous thrombosis, systemic embolization; TREATMENT for venous thrombosis and/or pulmonary embolus.HIGH RISK: Target INR is 2.5-3.5 for patients with mechanical heart valves.CBC W/PLT COUNT & AUTO [id number] 10:47:00 Test Item Value Reference Range Comments WHITE BLOOD CELL COUNT (BEAKER) (test yblx=216) 5.4 K/ L 3.5-10.5 RED BLOOD CELL COUNT (BEAKER) (test eavj=476) 3.58 M/ L 4.63-6.08 HEMOGLOBIN (BEAKER) (test cxzk=951) 9.9 GM/DL 13.7-17.5 HEMATOCRIT (BEAKER) (test evya=064) 32.9 % 40.1-51.0 MEAN CORPUSCULAR VOLUME (BEAKER) (test bqnt=495) 91.9 fL 79.0-92.2 MEAN CORPUSCULAR HEMOGLOBIN (BEAKER) (test 27.7 pg 25.7-32.2 takn=565) MEAN CORPUSCULAR HEMOGLOBIN CONC (BEAKER) (test 30.1 GM/DL 32.3-36.5 volz=494) RED CELL DISTRIBUTION WIDTH (BEAKER) (test 13.8 % 11.6-14.4 hhyk=121) PLATELET COUNT (BEAKER) (test tfiu=710) 188 K/CU MM 150-450 MEAN PLATELET VOLUME (BEAKER) (test ppem=473) 11.6 fL 9.4-12.4 NUCLEATED RED BLOOD CELLS (BEAKER) (test 0 /100 WBC 0-0 csym=295) NEUTROPHILS RELATIVE PERCENT (BEAKER) (test 52 % fwht=895) LYMPHOCYTES RELATIVE PERCENT (BEAKER) (test 35 % qgtg=677) MONOCYTES RELATIVE PERCENT (BEAKER) (test 7 % ddet=044) EOSINOPHILS RELATIVE PERCENT (BEAKER) (test 4 % mdld=161) BASOPHILS RELATIVE PERCENT (BEAKER) (test 1 % sfwu=924) NEUTROPHILS ABSOLUTE COUNT (BEAKER) (test 2.82 K/ L 1.78-5.38 alxk=463) LYMPHOCYTES ABSOLUTE COUNT (BEAKER) (test 1.88 K/ L 1.32-3.57 pwvi=070) MONOCYTES ABSOLUTE COUNT (BEAKER) (test 0.40 K/ L 0.30-0.82 qnzo=720) EOSINOPHILS ABSOLUTE COUNT (BEAKER) (test 0.22 K/ L 0.04-0.54 nggn=279) BASOPHILS ABSOLUTE COUNT (BEAKER) (test 0.07 K/ L 0.01-0.08 jrjx=350) IMMATURE GRANULOCYTES-RELATIVE PERCENT (BEAKER) 0 % 0-1 (test npxv=9118) BASIC METABOLIC [id number] 12:45:00 Test Item Value Reference Range Comments SODIUM (BEAKER) (test 139 meq/L 136-145 fpjx=100) POTASSIUM (BEAKER) (test 5.2 meq/L 3.5-5.1 agqs=472) CHLORIDE (BEAKER) (test 103 meq/L 98-107 koeq=096) CO2 (BEAKER) (test 26 meq/L 22-29 lrml=303) BLOOD UREA NITROGEN 40 mg/dL 7-21 (BEAKER) (test csod=358) CREATININE (BEAKER) (test 5.47 mg/dL 0.57-1.25 essh=879) GLUCOSE RANDOM (BEAKER) 115 mg/dL 70-105 (test jhuu=412) CALCIUM (BEAKER) (test 9.3 mg/dL 8.4-10.2 kvgp=317) EGFR (BEAKER) (test 13 mL/min/1.73 sq m ESTIMATED GFR IS NOT myjy=8196) ACCURATE CREATININE CLEARANCE IN PREDICTING GLOMERULAR FILTRATION RATE. ESTIMATED GFR IS NOT APPLICABLE FOR DIALYSIS PATIENTS. [id number] 12:24:00 Test Item Value Reference Range Comments PROTIME (BEAKER) (test iulh=388) 14.0 seconds 11.7-14.7 INR (BEAKER) (test xxuh=148) 1.1 <=5.9 PARTIAL THROMBOPLASTIN TIME (BEAKER) (test 32.4 seconds 22.5-36.0 lqbv=112) RECOMMENDED COUMADIN/WARFARIN INR THERAPY RANGESSTANDARD DOSE: 2.0 - 3.0 Includes: PROPHYLAXIS forvenous thrombosis, systemic embolization; TREATMENT for venous thrombosis and/or pulmonary embolus.HIGH RISK: Target INR is 2.5-3.5 for patients with mechanical heart valves.CBC W/PLT COUNT & AUTO [id number] 12:06:00 Test Item Value Reference Range Comments WHITE BLOOD CELL COUNT (BEAKER) (test krnk=555) 6.3 K/ L 3.5-10.5 RED BLOOD CELL COUNT (BEAKER) (test uuan=424) 3.73 M/ L 4.63-6.08 HEMOGLOBIN (BEAKER) (test choq=806) 10.4 GM/DL 13.7-17.5 HEMATOCRIT (BEAKER) (test pmew=341) 34.8 % 40.1-51.0 MEAN CORPUSCULAR VOLUME (BEAKER) (test kbjd=882) 93.3 fL 79.0-92.2 MEAN CORPUSCULAR HEMOGLOBIN (BEAKER) (test 27.9 pg 25.7-32.2 xpgc=407) MEAN CORPUSCULAR HEMOGLOBIN CONC (BEAKER) (test 29.9 GM/DL 32.3-36.5 qgxl=225) RED CELL DISTRIBUTION WIDTH (BEAKER) (test 14.0 % 11.6-14.4 pzes=827) PLATELET COUNT (BEAKER) (test iacb=279) 157 K/CU MM 150-450 MEAN PLATELET VOLUME (BEAKER) (test huqu=235) 12.5 fL 9.4-12.4 NUCLEATED RED BLOOD CELLS (BEAKER) (test 0 /100 WBC 0-0 gwrz=126) NEUTROPHILS RELATIVE PERCENT (BEAKER) (test 45 % cerb=574) LYMPHOCYTES RELATIVE PERCENT (BEAKER) (test 40 % yzij=465) MONOCYTES RELATIVE PERCENT (BEAKER) (test 10 % tojp=553) EOSINOPHILS RELATIVE PERCENT (BEAKER) (test 4 % jjos=372) BASOPHILS RELATIVE PERCENT (BEAKER) (test 1 % yoki=046) NEUTROPHILS ABSOLUTE COUNT (BEAKER) (test 2.86 K/ L 1.78-5.38 mmqe=142) LYMPHOCYTES ABSOLUTE COUNT (BEAKER) (test 2.51 K/ L 1.32-3.57 lvmw=155) MONOCYTES ABSOLUTE COUNT (BEAKER) (test 0.62 K/ L 0.30-0.82 pfum=253) EOSINOPHILS ABSOLUTE COUNT (BEAKER) (test 0.25 K/ L 0.04-0.54 oaaf=749) BASOPHILS ABSOLUTE COUNT (BEAKER) (test 0.06 K/ L 0.01-0.08 uhgc=664) IMMATURE GRANULOCYTES-RELATIVE PERCENT (BEAKER) 0 % 0-1 (test wmks=2557) HEMOGLOBIN [id number] 14:41:00 Test Item Value Reference Range Comments HEMOGLOBIN A1C (BEAKER) (test lskx=303) 7.0 % 4.3-6.1 HIV-1 ANTIGEN WITH HIV-1/2 [id number] 10:23:00 Test Item Value Reference Range Comments HIV-1 ANTIGEN WITH HIV 1\T\2 ANTIBODY (2) Nonreactive Nonreactive (BEAKER) (test ihyc=8718) FL, CYSTOGRAM, CINE OR VIDEO, [id number] 10:05:00Reason for Exam:->esrd ; eval for renal [...] dose (Ka,r): 33.3 mGy Signed : Kimberly DuarteBionym Verified Date/Time: 08/07/2017 10:05:30 Reading Location: [address] Radiology Reading Room U/S, ABDOMINAL, [id number] 09:58: 00Reason for Exam:->esrd; eval for renal [...] renal failure. Otherwise unremarkable study. Signed: Kimberly DuarteBionym Verified Date/Time: 08/07/2017 09:58:47 Reading Location: [address] Radiology Reading Room [id number] 09:20:00 Test Item Value Reference Range Comments PROSTATE SPECIFIC ANTIGEN (BEAKER) (test slkq=123) 6.7 ng/mL 0.0-4.0 RAD, CHEST, 2 [id number] 09:11:00Reason for Exam:->esrd; eval for renal txpFINAL REPORT CHEST PA AND LATERAL History provided: Evaluation for renal transplantation Comparison studies: None Heart size normal. Lungs are mildly hyperexpanded but clear, andvascularity normal. Numerous right healed rib fractures. IMPRESSION: Clear chest. Signed: Kimberly Duarteeport Verified Date/Time: 08/07/2017 09:11:05 Reading Location: [address] Radiology Reading Room LIPID [id number] 08:38:00 Test Item Value Reference Range Comments TRIGLYCERIDES (BEAKER) (test kppe=073) 179 mg/dL CHOLESTEROL (BEAKER) (test drdr=856) 225 mg/dL HDL CHOLESTEROL (BEAKER) (test xuzd=303) 51 mg/dL LDL CHOLESTEROL CALCULATED ([facility]) (test 138 mg/dL pbtz=582) Triglyceride Reference Range: Low Risk <150 Borderline 150- 199 High Risk 200-499 Very High Risk >=500Cholesterol Reference Range: Low Risk <200 Borderline 200-239 High Risk > 240HDL Cholesterol Reference Range: Low Risk >=60 High Risk <40LDL Cholesterol Reference Range: Optimal <100 Near Optimal 100-129 Borderline 130-159 High 160-189 Very High >=190URINE [id number] 13:31:00 Test Item Value Reference Range Comments CULTURE (BEAKER) (test kgiv=9096) <10,000 col/mL skin markos CYTOMEGALOVIRUS ANTIBODY, [id number] 07:58:00 Test Item Value Reference Range Comments CYTOMEGALOVIRUS IGG ANTIBODY (BEAKER) (test Positive tgwu=140) CYTOMEGALOVIRUS ANTIBODY, [id number] 07:58:00 Test Item Value Reference Range Comments CYTOMEGALOVIRUS IGM ANTIBODY (BEAKER) (test Positive mapd=363) EBV-VCA ANTIBODY, [id number] 07:58:00 Test Item Value Reference Range Comments DONTAE-ESPINOSA VCA IGG (BEAKER) (test kggy=124) Positive EBV-VCA ANTIBODY, [id number] 07:58:00 Test Item Value Reference Range Comments DONTAE-ESPINOSA VCA IGM (BEAKER) (test voqr=546) Negative VARICELLA ZOSTER ANTIBODY, [id number] 07:32:00 Test Item Value Reference Range Comments VARICELLA ZOSTER IGG (AL) (BEAKER) (test ncvb=4041) 3.5 Al VARICELLA ZOSTER RESULT INTERPRETATIONS: <=0.8 Al Nonreactive: Presumed non-immune to VZV 0.9-1.0 Al Equivocal >=1.1 Al Reactive: Presumed immune to [id number] 05:27:00 Test Item Value Reference Range Comments RPR SCREEN (BEAKER) (test zeqd=697) Nonreactive Nonreactive HEMOGLOBIN [id number] 14:09:00 Test Item Value Reference Range Comments HEMOGLOBIN A1C (BEAKER) (test dlto=720) 7.0 % 4.3-6.1 COMPREHENSIVE METABOLIC [id number] 11:41:00 Test Item Value Reference Range Comments TOTAL PROTEIN (BEAKER) 7.8 gm/dL 6.0-8.3 (test crkg=628) ALBUMIN (BEAKER) (test 4.4 g/dL 3.5-5.0 gfzs=1782) ALKALINE PHOSPHATASE 51 U/L 40-150 (BEAKER) (test exbm=913) BILIRUBIN TOTAL (BEAKER) 0.3 mg/dL 0.2-1.2 (test axtx=346) SODIUM (BEAKER) (test 139 meq/L 136-145 wbvp=065) POTASSIUM (BEAKER) (test 5.2 meq/L 3.5-5.1 ekkh=397) CHLORIDE (BEAKER) (test 106 meq/L 98-107 kkme=090) CO2 (BEAKER) (test 24 meq/L 22-29 trcp=160) BLOOD UREA NITROGEN 29 mg/dL 7-21 (BEAKER) (test ugph=940) CREATININE (BEAKER) (test 5.60 mg/dL 0.57-1.25 kdqr=591) GLUCOSE RANDOM (BEAKER) 132 mg/dL 70-105 (test eaia=482) CALCIUM (BEAKER) (test 9.1 mg/dL 8.4-10.2 gaka=441) AST (SGOT) (BEAKER) (test 9 U/L 5-34 vjiw=032) ALT (SGPT) (BEAKER) (test 8 U/L 6-55 sxvf=531) EGFR (BEAKER) (test 12 mL/min/1.73 sq m ESTIMATED GFR IS NOT vjuk=2437) ACCURATE CREATININE CLEARANCE IN PREDICTING GLOMERULAR FILTRATION RATE. ESTIMATED GFR IS NOT APPLICABLE FOR DIALYSIS PATIENTS. URIC [id number] 11:32:00 Test Item Value Reference Range Comments URIC ACID (BEAKER) (test xnok=151) 3.5 mg/dL 2.6-7.2 [id number] 11:32:00 Test Item Value Reference Range Comments PHOSPHORUS (BEAKER) (test hzsx=163) 4.0 mg/dL 2.3-4.7 GAMMA GLUTAMYL TRANSFERASE (GGT)[id number] 11:32:00 Test Item Value Reference Range Comments GAMMA GLUTAMYL TRANSFERASE (BEAKER) (test hwdt=397) 27 U/L 9-64 LACTATE DEHYDROGENASE (LDH)2017-05-13 11:32:00 Test Item Value Reference Range Comments LACTATE DEHYDROGENASE (BEAKER) (test smpg=065) 229 U/L 125-220 [id number] 10:15:00 Test Item Value Reference Range Comments PROSTATE SPECIFIC ANTIGEN (BEAKER) (test inzb=881) 5.7 ng/mL 0.0-4.0 HEPATITIS B SURFACE [id number] 10:15:00 Test Item Value Reference Range Comments HEPATITIS B SURFACE ANTIGEN (2) (BEAKER) (test Nonreactive Nonreactive nxxv=3516) HEPATITIS B SURFACE [id number] 10:15:00 Test Item Value Reference Range Comments HEPATITIS B SURFACE ANTIBODY (BEAKER) (test 195.7 mIU/mL <8.0 uiax=655) HEPATITIS B CORE ANTIBODY, [id number] 10:15:00 Test Item Value Reference Range Comments HEPATITIS B CORE IGM ANTIBODY (BEAKER) (test Nonreactive Nonreactive ewne=704) HEPATITIS C [id number] 10:15:00 Test Item Value Reference Range Comments HEPATITIS C ANTIBODY (BEAKER) (test tlor=014) Nonreactive Nonreactive URINALYSIS W/ [id number] 10:12:00 Test Item Value Reference Range Comments COLOR (BEAKER) (test krkl=512) Yellow CLARITY (BEAKER) (test bcok=426) Clear SPECIFIC GRAVITY UA (BEAKER) (test hgbm=864) 1.015 1.001-1.035 PH UA (BEAKER) (test scjx=919) 5.5 5.0-8.0 PROTEIN UA (BEAKER) (test yxfv=147) 300 mg/dL Negative GLUCOSE UA (BEAKER) (test grwh=142) Negative Negative KETONES UA (BEAKER) (test cyeg=069) Negative Negative BILIRUBIN UA (BEAKER) (test alsj=325) Negative Negative BLOOD UA (BEAKER) (test sgsv=290) Trace Negative NITRITE UA (BEAKER) (test mrth=189) Negative Negative LEUKOCYTE ESTERASE UA (BEAKER) (test pnet=020) Negative Negative UROBILINOGEN UA (BEAKER) (test sssd=189) 0.2 mg/dL 0.2-1.0 RBC UA (BEAKER) (test ekee=465) 0 /HPF WBC UA (BEAKER) (test mqcb=483) 1 /HPF BACTERIA (BEAKER) (test ccau=256) Rare MUCUS (BEAKER) (test aqmy=1853) Rare SQUAMOUS EPITHELIAL (BEAKER) (test vein=509) 1 /HPF HYALINE CASTS (BEAKER) (test krqx=521) 14 /LPF SOURCE(BEAKER) (test iqkk=4618) PTH, [id number] 09:29:00 Test Item Value Reference Range Comments PARATHYROID HORMONE INTACT (BEAKER) (test 189.9 pg/mL 8.5-72.5 sxpo=237) [id number] 09:09:00 Test Item Value Reference Range Comments PROTIME (BEAKER) (test fhzn=479) 13.8 seconds 11.7-14.7 INR (BEAKER) (test jltz=715) 1.1 <=5.9 PARTIAL THROMBOPLASTIN TIME (BEAKER) (test 35.7 seconds 22.5-36.0 gghf=920) RECOMMENDED COUMADIN/WARFARIN INR THERAPY RANGESSTANDARD DOSE: 2.0 - 3.0 Includes: PROPHYLAXIS forvenous thrombosis, systemic embolization; TREATMENT for venous thrombosis and/or pulmonary embolus.HIGH RISK: Target INR is 2.5-3.5 for patients with mechanical heart valves.CBC W/PLT COUNT & AUTO [id number] 08:58:00 Test Item Value Reference Range Comments WHITE BLOOD CELL COUNT (BEAKER) (test xvxm=432) 5.1 K/ L 3.5-10.5 RED BLOOD CELL COUNT (BEAKER) (test fczc=712) 4.49 M/ L 4.63-6.08 HEMOGLOBIN (BEAKER) (test txfb=365) 12.0 GM/DL 13.7-17.5 HEMATOCRIT (BEAKER) (test vnkm=526) 41.2 % 40.1-51.0 MEAN CORPUSCULAR VOLUME (BEAKER) (test bbbe=753) 91.8 fL 79.0-92.2 MEAN CORPUSCULAR HEMOGLOBIN (BEAKER) (test 26.7 pg 25.7-32.2 gckj=727) MEAN CORPUSCULAR HEMOGLOBIN CONC (BEAKER) (test 29.1 GM/DL 32.3-36.5 zmpm=322) RED CELL DISTRIBUTION WIDTH (BEAKER) (test 14.3 % 11.6-14.4 fuug=575) PLATELET COUNT (BEAKER) (test falj=514) 190 K/CU MM 150-450 MEAN PLATELET VOLUME (BEAKER) (test qnwo=516) 11.9 fL 9.4-12.4 NUCLEATED RED BLOOD CELLS (BEAKER) (test 0 /100 WBC 0-0 tuph=179) NEUTROPHILS RELATIVE PERCENT (BEAKER) (test 49 % gdog=715) LYMPHOCYTES RELATIVE PERCENT (BEAKER) (test 33 % eprk=901) MONOCYTES RELATIVE PERCENT (BEAKER) (test 10 % pust=124) EOSINOPHILS RELATIVE PERCENT (BEAKER) (test 5 % rhxn=358) BASOPHILS RELATIVE PERCENT (BEAKER) (test 2 % iriv=544) NEUTROPHILS ABSOLUTE COUNT (BEAKER) (test 2.53 K/ L 1.78-5.38 oorf=519) LYMPHOCYTES ABSOLUTE COUNT (BEAKER) (test 1.71 K/ L 1.32-3.57 yhjx=761) MONOCYTES ABSOLUTE COUNT (BEAKER) (test 0.51 K/ L 0.30-0.82 julc=666) EOSINOPHILS ABSOLUTE COUNT (BEAKER) (test 0.27 K/ L 0.04-0.54 jprw=633) BASOPHILS ABSOLUTE COUNT (BEAKER) (test 0.08 K/ L 0.01-0.08 yzaj=230) IMMATURE GRANULOCYTES-RELATIVE PERCENT (BEAKER) 1 % 0-1 (test ejjw=1825)
[2018-09-03 21:19] LABS: Urine Blood TRACE (NEG); Urine Glucose NEGATIVE (NEG); Urine Protein 2+ (NEG); Urine Specific Gravity 1.015 (1.005-1.030); Urine pH 7.5 (5.0-7.0)
[2018-09-03 21:31] LABS: Absolute Lymphocytes (CBC) 1.3 K/uL (0.7-4.9); Absolute Neutrophil 6.3 K/uL (1.8-8.0); Basophils % 0.9 % (0-1.3); Eosinophils % 2.3 % (0-4.4); Hematocrit 34.6 % (39.6-49.0); Lymphocytes % 14.2 % (15.3-44.8); Monocytes % 11.8 % (3.3-12.3); RBC Red Blood Cell Count 3.88 M/uL (4.33-5.43)
[2018-09-03] MEDS ORDERED: HYDROCODONE/APAP 10/325 TAB ONE (21:57)
[2018-09-03 22:02] LABS: Potassium 4.4 mmol/L (3.5-5.1)
[2018-09-03] MEDS ORDERED: ONDANSETRON 4 MG/2 ML VIAL ONE (22:15)
--- NOTE | 2018-09-03 23:08 | ER ---
Nurse's Notes [facility] Name: Russ Corona Age: 68 yrs Sex: Male : 1950 Arrival Date: 09/03/2018 Time: 18:52 Bed 25 Private MD: Diagnosis: Fever, unspecified Presentation: 09/03 18:52 Presenting complaint: EMS states: fatigue, weakness, fever and chills 1-2 days ago. Pt ca1 on dialysis MWF. Transition of care: patient was not received from another setting of care. Onset of symptoms was September 03, 2018. Risk Assessment: Do you want to hurt yourself or someone else? Patient reports no desire to harm self or others. Initial Sepsis Screen: Does the patient meet any 2 criteria? No. Patient's initial sepsis screen is negative. Does the patient have a suspected source of infection? Yes: Other: flu like symptoms. Care prior to arrival: Glucose check: 160. 18:52 Method Of Arrival: EMS: [facility] ca1 18:52 Acuity: ELLI 3 ca1 Triage Assessment: 19:11 General: Appears in no apparent distress. ill, Behavior is calm, cooperative, ca1 appropriate for age. Pain: Complains of pain in left jaw. Historical: - Allergies: 19:11 No Known Allergies; ca1 - Home Meds: 20:20 Aspirin EC Oral [Active]; lisinopril Oral [Active]; metoprolol tartrate 100 mg Oral rv tr24 1 tab once daily [Active]; Nitroglycerin SL [Active]; rosuvastatin Oral [Active]; terazosin Oral [Active]; - PMHx: 19:11 Diabetes - NIDDM; Dialysis; M,W,F; Enlarged Heart; High Cholesterol; Hypertension; ca1 - PSHx: 19:11 Triple Bypass; ca1 - Immunization history:: Flu vaccine is up to date. - Social history:: Smoking status: Patient/guardian denies using tobacco. - Ebola Screening: : No symptoms or risks identified at this time. - Family history:: not pertinent. - Hospitalizations: : No recent hospitalization is reported. Screenin:18 Abuse screen: Denies threats or abuse. Denies injuries from another. Nutritional rv screening: No deficits noted. Tuberculosis screening: No symptoms or risk factors identified. Fall Risk None identified. Assessment: 20:17 General: Appears in no apparent distress. uncomfortable, Behavior is calm, cooperative. rv Pain: Denies pain. Neuro: Level of Consciousness is awake, alert, obeys commands, Oriented to person, place, time, situation. Cardiovascular: Capillary refill < 3 seconds. Respiratory: Airway is patent. GI: No signs and/or symptoms were reported involving the gastrointestinal system. : No signs and/or symptoms were reported regarding the genitourinary system. EENT: No signs and/or symptoms were reported regarding the EENT system. Derm: Skin is intact. Musculoskeletal: No signs and/or symptoms reported regarding the musculoskeletal system. 21:10 Reassessment: Patient appears in no apparent distress at this time. Patient and/or ca1 family updated on plan of care and expected duration. Pain level reassessed. Patient is alert, oriented x 3, equal unlabored respirations, skin warm/dry/pink. 22:00 Reassessment: Pt complains of N/V. Informed provider. ca1 22:15 Reassessment: Patient appears in no apparent distress at this time. Patient and/or ca1 family updated on plan of care and expected duration. Pain level reassessed. Patient is alert, oriented x 3, equal unlabored respirations, skin warm/dry/pink. 23:10 Reassessment: Patient appears in no apparent distress at this time. Patient and/or ca1 family updated on plan of care and expected duration. Pain level reassessed. Patient is alert, oriented x 3, equal unlabored respirations, skin warm/dry/pink. Dr. Lazcano at bedside. 09/04 00:10 Reassessment: Patient appears in no apparent distress at this time. Patient and/or ca1 family updated on plan of care and expected duration. Pain level reassessed. Patient is alert, oriented x 3, equal unlabored respirations, skin warm/dry/pink. Vital Signs: 09/03 19:11 BP 166 / 71; Pulse 80; Resp 19; Temp 99.5; Pulse Ox 97% on R/A; Weight 72.57 kg; Height ca1 5 ft. 7 in. (170.18 cm); Pain 10/10; 20:00 BP 167 / 80; Pulse 83; Resp 19; Pulse Ox 100% on R/A; ca1 21:05 BP 119 / 97; Pulse 78; Resp 19; Pulse Ox 95% on R/A; ca1 22:00 BP 148 / 75; Pulse 78; Resp 20; Pulse Ox 96% on R/A; ca1 23:00 BP 124 / 61; Pulse 72; Resp 19; Pulse Ox 97% on R/A; ca1 23:35 BP 115 / 51; Pulse 70; Resp 19; Pulse Ox 97% on R/A; ca1 23:45 Temp 98.4(O); ca1 09/04 00:11 BP 130 / 60; Pulse 71; Resp 19; Pulse Ox 100% on R/A; ca1 01:44 BP 128 / 65 LA; Pulse 72; Resp 17 S; Pulse Ox 100% on R/A; rv 09/03 19:11 Body Mass Index 25.06 (72.57 kg, 170.18 cm) ca1 ED Course: 09/03 18:52 Patient arrived in ED. ca1 19:02 Dangelo Lazcano MD is Attending Physician. rn 19:05 Arlene Rojas RN is Primary Nurse. ca1 19:10 Triage completed. ca1 19:11 Arm band placed on right wrist. ca1 19:45 Missed attempt(s): 20 gauge in right antecubital area. ca1 19:55 Missed attempt(s): 22 gauge in right forearm. by Dax Ahn RN. ca1 20:18 Patient has correct armband on for positive identification. Bed in low position. Call rv light in reach. Side rails up X 1. Adult w/ patient. Pulse ox on. NIBP on. 21:00 Inserted saline lock: 20 gauge in right EJ, using aseptic technique. ,using aseptic ca1 technique. By OLIVIA Yang Blood collected. 21:10 XRAY Chest (1 view) In Process Unspecified. EDMS 23:06 Yvette Martin MD is Hospitalizing Provider. rn 09/04 01:02 Patient admitted, IV remains in place. ca1 01:15 CT completed. Patient tolerated procedure well. Patient moved to CT via stretcher. Patient moved back from CT. 01:16 Head Brain Wo Cont In Process Unspecified. EDMS 01:44 No provider procedures requiring assistance completed. rv Administered Medications: 09/03 21:48 Drug: Cannon 10 mg-325 mg 1 tabs Route: PO; rv 23:36 Follow up: Response: No adverse reaction; Pain is decreased ca1 22:15 Drug: Zofran 4 mg Route: IVP; Site: right jugular; ca1 23:37 Follow up: Response: No adverse reaction; Nausea is decreased ca1 09/04 00:45 Drug: Rocephin - (cefTRIAXone) 1 grams Route: IVPB; Infused Over: 30 mins; Site: right ca1 jugular; 00:46 Follow up: IV Status: Completed infusion; IVP per pharmacy protocol ca1 Outcome: 09/03 23:07 Decision to Hospitalize by Provider. rn 09/04 01:45 Admitted to Tele accompanied by nurse, via wheelchair, room 423, with chart, Report rv called to FRANC LANTIGUA Condition: good Instructed on the need for admit, Demonstrated understanding of instructions. 01:46 Patient left the ED. rv Signatures: Dispatcher [employer] Sammy Barragan Roman, MD MD rn Vicente, Ronaldo RN RN rv Arlene Rojas RN RN ca1 Corrections: (The following items were deleted from the chart) 09/03 19:12 19:11 Ebola Screening: Patient positive for the following Ebola Virus Disease ca1 associated symptoms: ca1 19:12 19:11 General: Appears in no apparent distress. ill, Behavior is calm, cooperative, ca1 appropriate for age, ca1
--- NOTE | 2018-09-03 23:08 | EDPHYS ---
Physician Documentation [facility] Name: Russ Corona Age: 68 yrs Sex: Male : 1950 Arrival Date: 09/03/2018 Time: 18:52 Bed 25 Private MD: ED Physician Dangelo Lazcano HPI: 09/03 19:35 This 68 yrs old Black Male presents to ER via EMS with complaints of fever, ear pain. rn 19:35 Reports fever, chills, runny nose, congestion, cough, for 2 days, feels like has the rn flu. . 19:36 Onset: The symptoms/episode began/occurred 2 day(s) ago. Severity of symptoms: At their rn worst the symptoms were mild in the emergency department the symptoms are unchanged. The patient has not experienced similar symptoms in the past. Reports left ear pain and facial pain, no swelling. . Historical: - Allergies: 19:11 No Known Allergies; ca1 - Home Meds: 20:20 Aspirin EC Oral [Active]; lisinopril Oral [Active]; metoprolol tartrate 100 mg Oral rv tr24 1 tab once daily [Active]; Nitroglycerin SL [Active]; rosuvastatin Oral [Active]; terazosin Oral [Active]; - PMHx: 19:11 Diabetes - NIDDM; Dialysis; M,W,F; Enlarged Heart; High Cholesterol; Hypertension; ca1 - PSHx: 19:11 Triple Bypass; ca1 - Immunization history:: Flu vaccine is up to date. - Social history:: Smoking status: Patient/guardian denies using tobacco. - Ebola Screening: : No symptoms or risks identified at this time. - Family history:: not pertinent. - Hospitalizations: : No recent hospitalization is reported. ROS: 19:36 Constitutional: + fever chills Eyes: Negative for injury, pain, redness, and discharge, civil rights attorney: + left ear and periauricular pain Neck: Negative for injury, pain, and swelling, Cardiovascular: Negative for chest pain, palpitations, and edema, Respiratory: + cough, neg for sob Abdomen/GI: Negative for abdominal pain/nausea/vomiting MS/Extremity: Negative for injury and deformity, Skin: Negative for injury, rash, and discoloration, Neuro: Negative for numbness, tingling, and seizure. Exam: 19:36 Constitutional: This is a well developed, well nourished patient who is awake, alert, rn and in no acute distress. Under covers, shaking and sniffling Head/Face: Normocephalic, atraumatic. Eyes: Pupils equal round and reactive to light, extra-ocular motions intact. Lids and lashes normal. Conjunctiva and sclera are non-icteric and not injected. Cornea within normal limits. Periorbital areas with no swelling, redness, or edema. ENT: dry mm, no stridor, no oral lesions, + left TM with erythema and bulging Neck: Trachea midline, no thyromegaly or masses palpated, and no cervical lymphadenopathy. Supple, full range of motion without nuchal rigidity, or vertebral point tenderness. No Meningismus. Cardiovascular: Regular rate and rhythm, No pulse deficits. Respiratory: Lungs have equal breath sounds bilaterally, clear to auscultation. No increased work of breathing, no retractions or nasal flaring. Abdomen/GI: soft, non-tender Skin: Warm, dry MS/ Extremity: Pulses equal, no cyanosis. Neurovascular intact. Full, normal range of motion. Equal circumference. Neuro: Awake and alert, GCS 15, oriented to person, place, time, and situation. Cranial nerves II-XII grossly intact. Motor strength 5/5 in all extremities. Sensory grossly intact. Cerebellar exam normal. Vital Signs: 19:11 BP 166 / 71; Pulse 80; Resp 19; Temp 99.5; Pulse Ox 97% on R/A; Weight 72.57 kg; Height ca1 5 ft. 7 in. (170.18 cm); Pain 10/10; 20:00 BP 167 / 80; Pulse 83; Resp 19; Pulse Ox 100% on R/A; ca1 21:05 BP 119 / 97; Pulse 78; Resp 19; Pulse Ox 95% on R/A; ca1 22:00 BP 148 / 75; Pulse 78; Resp 20; Pulse Ox 96% on R/A; ca1 23:00 BP 124 / 61; Pulse 72; Resp 19; Pulse Ox 97% on R/A; ca1 23:35 BP 115 / 51; Pulse 70; Resp 19; Pulse Ox 97% on R/A; ca1 23:45 Temp 98.4(O); ca1 09/04 00:11 BP 130 / 60; Pulse 71; Resp 19; Pulse Ox 100% on R/A; ca1 01:44 BP 128 / 65 LA; Pulse 72; Resp 17 S; Pulse Ox 100% on R/A; rv 09/03 19:11 Body Mass Index 25.06 (72.57 kg, 170.18 cm) ca1 MDM: 09/03 19:02 Patient medically screened. rn 23:05 Differential Diagnosis flu, bacteremia, viral syndrome, pneumonia, UTI. Data reviewed: rn vital signs, nurses notes, lab test result(s), radiologic studies, plain films, and as a result, I will admit patient. Counseling: I had a detailed discussion with the patient and/or guardian regarding: the historical points, exam findings, and any diagnostic results supporting the discharge/admit diagnosis, lab results, radiology results, the need for further work-up and treatment in the hospital. Response to treatment: the patient's symptoms have mildly improved after treatment, and as a result, I will admit patient. ED course: Admitted to Dr. Velázquez, no clear source of fever, elevated procal, high risk due to dialysis. . 09/03 19:09 Order name: Urine Dipstick--Ancillary (enter results); Complete Time: 22:21 kj1 09/03 19:25 Order name: CBC with Diff; Complete Time: 22:21 rn 09/03 19:25 Order name: Basic Metabolic Panel; Complete Time: 22:21 rn 09/03 19:25 Order name: Flu; Complete Time: 21:00 rn 09/03 19:25 Order name: Procalcitonin; Complete Time: 22:21 rn 09/03 19:25 Order name: Blood Culture Adult (2) rn 09/03 19:25 Order name: IV Start; Complete Time: 21:19 rn 09/03 19:25 Order name: XRAY Chest (1 view) rn 09/03 19:35 Order name: Strep; Complete Time: 21:00 rn 09/03 20:34 Order name: Throat Culture EDMS 09/04 00:44 Order name: Head Brain Wo Cont EDMS Administered Medications: 21:48 Drug: Buchanan 10 mg-325 mg 1 tabs Route: PO; rv 23:36 Follow up: Response: No adverse reaction; Pain is decreased ca1 22:15 Drug: Zofran 4 mg Route: IVP; Site: right jugular; ca1 23:37 Follow up: Response: No adverse reaction; Nausea is decreased ca1 09/04 00:45 Drug: Rocephin - (cefTRIAXone) 1 grams Route: IVPB; Infused Over: 30 mins; Site: right ca1 jugular; 00:46 Follow up: IV Status: Completed infusion; IVP per pharmacy protocol ca1 Disposition: 09/03/18 23:07 Hospitalization ordered by Yvette Martin for Observation. Preliminary diagnosis is Fever, unspecified. - Bed requested for Telemetry/MedSurg (observation). - Status is Observation. rv - Condition is Stable. - Problem is new. - Symptoms have improved. UTI on Admission? No Signatures: Dispatcher [employer] EDMS Dangelo Lazcano MD MD rn Garcia, Cindy RN RN cg Dax Ahn RN Arlene Meléndez RN RN ca1 Corrections: (The following items were deleted from the chart) 09/03 19:12 19:11 Ebola Screening: Patient positive for the following Ebola Virus Disease ca1 associated symptoms: ca1 09/04 00:55 09/03 23:07 Hospitalization Ordered by Yvette Martin MD for Observation. Preliminary cg diagnosis is Fever, unspecified. Bed requested for Telemetry/MedSurg (observation). Status is Observation. Condition is Stable. Problem is new. Symptoms have improved. UTI on Admission? No. rn 09/04 01:46 00:55 09/03/2018 23:07 Hospitalization Ordered by Yvette Martin MD for Observation. rv Preliminary diagnosis is Fever, unspecified. Bed requested for Telemetry/MedSurg (observation). Status is Observation. Condition is Stable. Problem is new. Symptoms have improved. UTI on Admission? No. cg
[2018-09-04] MEDS ORDERED: ONDANSETRON 4 MG/2 ML VIAL IV PRN (02:00)
[2018-09-04 02:14] VITALS: O2SAT 100
[2018-09-04 02:43] VITALS: BMI 25.0
[2018-09-04] MEDS: ACETAMINOPHEN 500 MG TAB PO PRN ×2 (02:50→09:29)
[2018-09-04] MEDS ORDERED: AMPICILLIN/SULBACT 1.5GM VIAL IVPB SCH (03:00)
[2018-09-04] MEDS ORDERED: AMPICILLIN/SULBACT 1.5GM VIAL ONE (03:25)
[2018-09-04] MEDS ORDERED: NA CHLORIDE 0.9% 100 ML IV ONE (03:36)
--- NOTE | 2018-09-04 05:25 | P.HP ---
Certification for Inpatient Patient admitted to: Observation With expected LOS: <2 Midnights Practitioner: I am a practitioner with admitting privileges, knowledge of patient current condition, hospital course, and medical plan of care. Services: Services provided to patient in accordance with Admission requirements found in Title 42 Section 412.3 of the Code of Federal Regulations Patient History Date of Service: 09/04/18 Reason for admission: fever History of Present Illness: Mr Corona is a 68 years old male with history of HTN, ESRD on HD, DM II, dyslipidemia, who start about 2 days ago with fever and left side of the face pain. There is no obvious induration, the pain is located close to the ear canal , reproduced with palpation. He is not able to distinguish wether is coming from his teeth or his ear. WBC count are normal, as well as lactate, however, procalcitonin is elevated. He denied cough or SOB. No nausea, vomiting or diarrhea either. CT head showed no acute abnormalities, however, report chronic appearing left maxillary sinus. Temp in ER 99.5 F. Allergies No Known Allergies Allergy (Verified 09/04/18 02:13) Home medications list reviewed: Yes Home Medications: Aspirin [Ecotrin 81 MG] 81 mg PO DAILY #30 tablet. 12/18/16 Calcium Acetate [Phoslo*] 667 mg PO TIDWM #90 cap 12/18/16 Cholecalciferol (Vitamin D3) [Vitamin D 5,000 IU Cap*] 5,000 unit PO DAILY #30 cap 12/18/16 Metoprolol Tartrate 100 mg PO BID #60 12/18/16 Rosuvastatin [Crestor] 10 mg PO BEDTIME #30 tab 12/18/16 Terazosin HCl [Hytrin*] 2 mg PO BID #60 cap 12/18/16 Lisinopril [Zestril] 2.5 mg PO DAILY 09/04/18 - Past Medical/Surgical History Has patient received pneumonia vaccine in the past: Yes Diabetic: Yes -: DM -: HTN -: Enlarged heart -: CHF -: CABG - Family History Father -: Cancer Mother -: Hypertension, Diabetes - Social History Smoking Status: Former smoker Alcohol use: No CD- Drugs: No Caffeine use: Yes Place of Residence: Home Review of Systems 10-point ROS is otherwise unremarkable Physical Examination - Vital Signs Temperature: 98.4 F Blood Pressure: 128/65 Pulse: 72 Respirations: 17 - Physical Exam General: Alert, In no apparent distress HEENT: Atraumatic, PERRLA, Mucous membr. moist/pink, Other (Tender to palpation left ear, and left side of the face. Left ear canal erithematose.), EOMI, Sclerae nonicteric Neck: Supple, 2+ carotid pulse no bruit, No LAD, Without JVD or thyroid abnormality Respiratory: Clear to auscultation bilaterally, Normal air movement Cardiovascular: Regular rate/rhythm, Normal S1 S2 Gastrointestinal: Normal bowel sounds, No tenderness Musculoskeletal: No tenderness Integumentary: No rashes Neurological: Normal gait, Normal speech, Normal strength at 5/5 x4 extr, Normal tone, Normal affect Lymphatics: No axilla or inguinal lymphadenopathy - Studies Laboratory Data (last 24 hrs) 09/03/18 21:00: Sodium 141, Potassium 4.4, BUN 44 H, Creatinine 5.63 H*, Glucose 106 09/03/18 21:00: WBC 8.9, Hgb 10.9 L, Hct 34.6 L, Plt Count 146 L Microbiology Data (last 24 hrs): 09/03/18 20:02 Nasopharnyx Influenza Type A Antigen Screen - Final 09/03/18 20:02 Nasopharnyx Influenza Type B Antigen Screen - Final 09/03/18 20:02 Throat Group A Streptococcus Rapid Screen - Final Assessment and Plan - Problems (Diagnosis) (1) Fever Current Visit: Yes Status: Acute Qualifiers: Fever type: unspecified Qualified Code(s): R50.9 - Fever, unspecified (2) Sinusitis, maxillary, chronic Current Visit: Yes Status: Acute - Plan Will admit the patient under observation due to fever possible secondary to external otitis vs acute on chronic sinusitis. Will start empiric antibiotic. He has normal WBC count but elevated procalcitonin. He is hemodynamically stable. - Advance Directives Does patient have a Living Will: No Does patient have a Durable POA for Healthcare: No - Code Status/Comfort Care Code Status Assessed: Yes Code Status: Full Code
--- NOTE | 2018-09-04 07:23 | RAD REPORT ---
EXAM DESCRIPTION: RAD - Chest Single View - 09/03/2018 9:10 pm CLINICAL HISTORY: Fever and chills, cough COMPARISON: December 2016 TECHNIQUE: AP portable chest image was obtained 2100 hours . FINDINGS: Lung volumes are low. No peripheral mass or consolidation. Lung markings are similar to co mparison. Mild cardiomegaly is present stable from comparison. No vascular engorgement seen. Since prior imagin g right-sided dialysis catheter has been removed. Sternotomy wires are in place with CABG surgical ch anges noted. No measurable pleural effusion and no pneumothorax. No acute bony abnormality seen. No a cute aortic findings suspected. IMPRESSION: No acute lung parenchymal process identified. Mild cardiomegaly, stable from comparison, with no significant failure or volume overload findings.
[2018-09-04] MEDS: INSULIN -REGULAR HUMAN 50 UNIT/0.5 ML ML SQ SCH ×3 (07:30→16:30)
[2018-09-04] MEDS ORDERED: HEPARIN 5000 UNIT/ML 1 ML VIAL SQ SCH (09:00)
[2018-09-04] MEDS ORDERED: AMPICILLIN/SULBACT 1.5 GM in NA CHLORIDE 0.9% 100 ML IVPB SCH (09:00)
--- NOTE | 2018-09-04 11:40 | RAD REPORT ---
EXAM DESCRIPTION: CT - Head Brain Wo Cont - 09/04/2018 5:13 am CLINICAL HISTORY: 68 years Male left side of the face pain COMPARISON: None TECHNIQUE: Contiguous axial images of the brain were obtained without the administration of intraven ous contrast.This exam was performed according to our departmental dose-optimization program which in cludes use of Automated Exposure Control, adjustment of the mA and/or kV according to patient size an d/or use of iterative reconstruction technique. FINDINGS: Brain: No acute intracranial hemorrhage. No extra-axial collection. No mass effect or sabrina iation. Mild prominence of the sulci and cisterns Confluent periventricular and subcortical white m atter hypodensity is noted. Ventricles: Allowing for underlying cerebral volume loss, ventricular size appears within normal limi ts.. Globes and orbits: No acute abnormality. Bones: No acute osseous finding. Paranasal sinuses: Diffuse opacification of the left maxillary sinus extending to the ethmoid. Mastoid air cells: Well pneumatized. Soft tissues: Within normal limits IMPRESSION: No acute intracranial hemorrhage or herniation. Cerebral volume loss and chronic small vessel ischemic changes. If persistent clinical concern for ac annabel ischemia, consider MRI brain without contrast for further evaluation. Chronic appearing left maxillary sinus disease. Electronically signed by: Kenn Marino DO 09/04/2018 1:22 AM CDT Due to temporary technical issues with the PACS/Fluency reporting system, reports are being signed by the in house radiologist as a courtesy to ensure prompt reporting. The interpreting radiologist is f ully responsible for the content of the report.
[2018-09-04] MEDS ORDERED: AMOX/K CLAV 875 MG TAB PO ONE (12:04)
[2018-09-04] MEDS ORDERED: NA CHLORIDE 0.9% 1,000 ML IV PRN (12:08)
[2018-09-04] MEDS ORDERED: EPOETIN ALFA 10,000 UNIT/ML SQ ONE (12:08)
[2018-09-04] MEDS ORDERED: MANNITOL 25% 12.5 GM/50 ML VIAL IV PRN (12:08)
[2018-09-04] MEDS ORDERED: EPOETIN ALFA 10,000 UNIT/ML VIAL IV SCH (12:15)
[2018-09-04] MEDS ORDERED: ALBUMIN HUMAN 25% 50 ML IV SCH (13:00)
--- NOTE | 2018-09-04 13:36 | P.DS ---
Admission Date: 09/04/18 Discharge Date: 09/04/18 Primary Care Provider: Larisa Belle Disposition: ROUTINE DISCHARGE Discharge Condition: GOOD Reason for Admission: fever - Problems (1) Cerumen debris on tympanic membrane of left ear Current Visit: Yes Status: Acute (2) ESRD (end stage renal disease) on dialysis Current Visit: Yes Status: Acute Brief History of Present Illness: Patient comes in with complaints of 1 day of pain over the left ear. he has been having some congestion during the night with the air conditions. States he was having a lot of pain in the ear. The patient had a ct which showed maxillary sinustis. He no Hospital Course: Patient is doing well. He has cerumen impacted in the left ear. Will discharge him on decongestants. Debrox. Have him follow up with Bebeto Belle on Friday to have his ear flushed. Thank you for allowing us to take part in his care. Vital Signs/Physical Exam: Temp Pulse Resp BP Pulse Ox 99.2 F 73 18 121/60 97 09/04/18 12:00 09/04/18 12:00 09/04/18 12:00 09/04/18 12:00 09/04/18 12:00 General: Alert, In no apparent distress HEENT: Atraumatic, PERRLA, Other (Patient has impacted on cerumen in the left ear canal), EOMI Neck: Supple, JVD not distended Respiratory: Clear to auscultation bilaterally, Normal air movement Cardiovascular: Regular rate/rhythm, Normal S1 S2 Gastrointestinal: Normal bowel sounds, No tenderness Musculoskeletal: No tenderness Integumentary: No rashes Neurological: Normal speech, Normal tone, Normal affect Lymphatics: No axilla or inguinal lymphadenopathy Laboratory Data at Discharge: WBC 8.9 K/uL (4.3-10.9) 09/03/18 21:00 Hgb 10.9 g/dL (13.6-17.9) L 09/03/18 21:00 Hct 34.6 % (39.6-49.0) L 09/03/18 21:00 Plt Count 146 K/uL (152-406) L 09/03/18 21:00 Sodium 141 mmol/L (136-145) 09/03/18 21:00 Potassium 4.4 mmol/L (3.5-5.1) 09/03/18 21:00 BUN 44 mg/dL (7-18) H 09/03/18 21:00 Creatinine 5.63 mg/dL (0.55-1.3) H* 09/03/18 21:00 Glucose 106 mg/dL (74-106) 09/03/18 21:00 Home Medications: Aspirin [Ecotrin 81 MG] 81 mg PO DAILY #30 tablet. 12/18/16 Cholecalciferol (Vitamin D3) [Vitamin D 5,000 IU Cap*] 5,000 unit PO DAILY #30 cap 12/18/16 Rosuvastatin [Crestor] 10 mg PO BEDTIME #30 tab 12/18/16 Terazosin HCl [Hytrin*] 2 mg PO BID #60 cap 12/18/16 Amox/Clavulanate [Augmentin] 1 each PO Q8H 3 Days #10 tab.chew 09/04/18 Calcium Acetate [Phoslo*] 2 tab PO TIDWM 09/04/18 Fluticasone Propionate 9.9 ml NS Q12HR 6AM AND 6PM #1 spray.susp 09/04/18 Insulin Glargine,Hum.rec.anlog [Basaglar Kwikpen U-100] 15 units SQ DAILY Lisinopril [Zestril] 2.5 mg PO DAILY 09/04/18 Loratadine/Pseudoephedrine [Loratadine-D Tablet] 1 each PO BID #30 tab.er.12h Metoprolol Succinate [Toprol Xl*] 25 mg PO BID 09/04/18 Nitroglycerin 0.4 mg SL PRN 09/04/18 Penicillin Vk [Veetids] 250 mg PO QID 09/04/18 traMADol HCL [Ultram] 50 mg PO Q6H PRN 09/04/18 New Medications: Amox/Clavulanate [Augmentin] 1 each PO Q8H 3 Days #10 tab.chew Fluticasone Propionate 9.9 ml NS Q12HR 6AM AND 6PM #1 spray.susp Loratadine/Pseudoephedrine [Loratadine-D Tablet] 1 each PO BID #30 tab.er.12h Diet: Renal Time spent managing pt's care (in minutes): 30
[2018-09-04 19:16] VITALS: BP 139/65; TEMP 100.2
--- NOTE | 2018-09-04 20:58 | P.CNS ---
Date of Consult: 09/04/18 Reason for Consult: ESRD Requesting Physician: Chemo Gilliam Primary Care Provider: Larisa Belle Chief Complaint: fever History of Present Illness: Mr Corona is a 68 years old male with history of HTN, ESRD on HD, DM II, dyslipidemia, who start about 2 days ago with fever and left side of the face pain. There is no obvious induration, the pain is located close to the ear canal , reproduced with palpation. He is not able to distinguish wether is coming from his teeth or his ear. WBC count are normal, as well as lactate, however, procalcitonin is elevated. He denied cough or SOB. No nausea, vomiting or diarrhea either. CT head showed no acute abnormalities, however, report chronic appearing left maxillary sinus. Temp in ER 99.5 F. 19:35 This 68 yrs old Black Male presents to ER via EMS with complaints of fever , ear pain. rn 19:35 Reports fever, chills, runny nose, congestion, cough, for 2 days, feels like has the rn flu. . 19:36 Onset: The symptoms/episode began/occurred 2 day(s) ago. Severity of symptoms: At their rn worst the symptoms were mild in the emergency department the symptoms are unchanged. The patient has not experienced similar symptoms in the past. Reports left ear pain and facial pain, no swelling. Allergies No Known Allergies Allergy (Verified 09/04/18 02:13) Home medications list reviewed: Yes Home Medications: Aspirin [Ecotrin 81 MG] 81 mg PO DAILY #30 tablet. 12/18/16 Cholecalciferol (Vitamin D3) [Vitamin D 5,000 IU Cap*] 5,000 unit PO DAILY #30 cap 12/18/16 Rosuvastatin [Crestor] 10 mg PO BEDTIME #30 tab 12/18/16 Terazosin HCl [Hytrin*] 2 mg PO BID #60 cap 12/18/16 Amox/Clavulanate [Augmentin] 1 each PO Q8H 3 Days #10 tab.chew 09/04/18 Calcium Acetate [Phoslo*] 2 tab PO TIDWM 09/04/18 Fluticasone Propionate 9.9 ml NS Q12HR 6AM AND 6PM #1 spray.susp 09/04/18 Insulin Glargine,Hum.rec.anlog [Basaglar Kwikpen U-100] 15 units SQ DAILY Lisinopril [Zestril] 2.5 mg PO DAILY 09/04/18 Loratadine/Pseudoephedrine [Loratadine-D Tablet] 1 each PO BID #30 tab.er.12h Metoprolol Succinate [Toprol Xl*] 25 mg PO BID 09/04/18 Nitroglycerin 0.4 mg SL PRN 09/04/18 Penicillin Vk [Veetids] 250 mg PO QID 09/04/18 traMADol HCL [Ultram] 50 mg PO Q6H PRN 09/04/18 - Past Medical/Surgical History Diabetic: Yes -: DM -: HTN -: Enlarged heart -: CHF -: CABG - Family History Father Medical History: Cancer Mother Medical History: Hypertension, Diabetes - Social History Alcohol use: No CD- Drugs: No Caffeine use: Yes Place of Residence: Home Review of Systems 10-point ROS is otherwise unremarkable General: Malaise ENT: Ear Pain, Mouth Pain Physical Examination Temp Pulse Resp BP Pulse Ox 100.2 F 84 16 139/65 98 09/04/18 19:15 09/04/18 19:15 09/04/18 19:15 09/04/18 19:15 09/04/18 19:15 General: In no apparent distress, Oriented x3, Cooperative HEENT: Atraumatic Neck: Supple Respiratory: Clear to auscultation bilaterally Cardiovascular: No edema, Regular rate/rhythm Gastrointestinal: Soft and benign, Non-distended Musculoskeletal: No clubbing, No contractures Integumentary: No rashes, No cyanosis Neurological: Normal speech Laboratory Data (last 24 hrs) 09/03/18 21:00: Sodium 141, Potassium 4.4, BUN 44 H, Creatinine 5.63 H*, Glucose 106 09/03/18 21:00: WBC 8.9, Hgb 10.9 L, Hct 34.6 L, Plt Count 146 L Imagings Data: EXAM DESCRIPTION: CT - Head Brain Wo Cont - 09/04/2018 5:13 am CLINICAL HISTORY: 68 years Male left side of the face pain COMPARISON: None TECHNIQUE: Contiguous axial images of the brain were obtained without the administration of intravenous contrast.This exam was performed according to our departmental dose-optimization program which includes use of Automated Exposure Control, adjustment of the mA and/or kV according to patient size and/or use of iterative reconstruction technique. FINDINGS: Brain: No acute intracranial hemorrhage. No extra-axial collection. No mass effect or herniation. Mild prominence of the sulci and cisterns Confluent periventricular and subcortical white matter hypodensity is noted. Ventricles: Allowing for underlying cerebral volume loss, ventricular size appears within normal limits.. Globes and orbits: No acute abnormality. Bones: No acute osseous finding. Paranasal sinuses: Diffuse opacification of the left maxillary sinus extending to the ethmoid. Mastoid air cells: Well pneumatized. Soft tissues: Within normal limits IMPRESSION: No acute intracranial hemorrhage or herniation. Cerebral volume loss and chronic small vessel ischemic changes. If persistent clinical concern for acute ischemia, consider MRI brain without contrast for further evaluation. Chronic appearing left maxillary sinus disease. Conclusions/Impression: A/ ESRD on HD. HTN with CKD/ CHF. Diastolic CHF, chronic. Anemia in CKD. RICH/ Secondary HyperPTH. Acute left maxillary sinusitis. P/ Continue current POC and Medications. Discontinue IV Abx. Start Augmentin. Arrange for acute HD. Give Epo. Start Vitamin D and binders. Restart home medications as indicated. No NSAIDs. AM labs. Daily weight. Thank you kindly for the consultation. Case discussed with Dr. Gilliam.
[2018-09-04] MEDS ORDERED: AMOX/K CLAV 875 MG TAB PO SCH (21:00)
== END 2018-09-04 20:15 | disposition home or self-care (01) ==
LOC: ER 18:51 → 4TH 09-04 01:20
PROVIDERS: ADMIT Internal Medicine; ATTEND Internal Medicine
DX: H61.22 Impacted cerumen, left ear (principal); J01.00 Acute maxillary sinusitis, unspecified; I13.2 Hypertensive heart and chronic kidney disease with heart failure and with stage 5 chronic kidney disease, or end stage renal disease; E11.22 Type 2 diabetes mellitus with diabetic chronic kidney disease; N18.6 End stage renal disease; I50.32 Chronic diastolic (congestive) heart failure; E78.5 Hyperlipidemia, unspecified; Z99.2 Dependence on renal dialysis; Z79.82 Long term (current) use of aspirin
CPT/HCPCS: 87040 ×2; 87070; 85025; 80048; 36415; 82962 ×3; 87081; 81003; 84145; 87804 ×2; 70450; 71045; 90935; 96375; 96374; 99285; J1644; J0885; Q4081; J0295 ×2; J2405; G0378 ×2

== ENCOUNTER 2022-05-09 00:06 | Emergency (ER) | payer OTHER ==
[2022-05-09] MEDS ORDERED: CYCLOBENZAPRINE 10 MG TAB ONE (00:33)
[2022-05-09] MEDS ORDERED: MORPHINE 4 MG/ML SYR ONE (00:34)
--- OUTSIDE RECORDS SUMMARY | 2022-05-09 00:51 | XMS REPORT | Continuity of Care Document ---
:1950 Author Organization [facility] t Address [address] [place]. [address] [place] [id number] Care Team Providers Name Role Phone Precious Crump Primary Care Physician PRETTY GUILLEN K.H. Attending Clinician Unavailable MICHELLE BLANCO Attending Clinician Unavailable Wanda Elias RN Attending Clinician Unavailable DELFINO GRANADO Attending Clinician Unavailable DELFINO GRANADO Attending Clinician Unavailable Kimberly Adkins DO Attending Clinician Brad Granger DO Attending Clinician Precious Crump Attending Clinician Chuck Cohn DO Attending Clinician Yeni Dang DO Attending Clinician Tyrell Salvador MD Attending Clinician EFREM MCNAIR Attending Clinician Unavailable Efrem Mcnair DO Attending Clinician PRECIOUS GALAVIZ Attending Clinician Unavailable Suzi MARI, Melissa Wynn Attending Clinician Pob, [facility] Main Attending Clinician Unavailable Pretty Guillen MD K.H. Attending Clinician 2, [facility] Attending Clinician Unavailable Doctor Unassigned, Iron Belt Attending Clinician Unavailable DEANNA PAZ Attending Clinician Unavailable Deanna Rodrigues Attending Clinician Michelle Livingston Attending Clinician [facility] Attending Clinician Unavailable SHANNAN RAHMAN Attending Clinician Unavailable Shannan Rahman MD Attending Clinician Lab, Ang - Db Attending Clinician Unavailable MELISSA ARCHER Attending Clinician Unavailable JORGE LUNVICTOR MANUEL BULLOCKMAURILIO A Attending Clinician Unavailable RITESH SUTTON Attending Clinician Unavailable MOTIWMARIA GUADALUPE, AFAQ Attending Clinician Unavailable USAMA ZALDIVAR Attending Clinician Unavailable LEO GARCIA Attending Clinician Unavailable VITALY SIMONS Attending Clinician Unavailable JOSE L TOVAR Attending Clinician Unavailable SUSIE JORGE Attending Clinician Unavailable BRAD ANGUIANO Attending Clinician Unavailable CHERISE GALEANA Attending Clinician Unavailable JENNIFER SORTO Attending Clinician Unavailable BLAZE BALBUENA Attending Clinician Unavailable DELFINO GRANADO Admitting Clinician Unavailable EFREM MCNAIR Admitting Clinician Unavailable PRETTY GUILLEN Admitting Clinician Unavailable BOBBY AVENDANO Admitting Clinician Unavailable SHANNAN RAHMAN Admitting Clinician Unavailable Shannan Rahman MD Admitting Clinician LEO GARCIA Admitting Clinician Unavailable BRAD ANGUIANO Admitting Clinician Unavailable CHERISE GALEANA Admitting Clinician Unavailable BLAZE BALBUENA Admitting Clinician Unavailable Payers Payer Name Policy Type Policy Number Effective Date Expiration Date S sukumar MEDICARE PART A [id number] 2017 \\T\\ B 00:00:00 [facility] [id number] 2017 [place] 00:00:00 [facility] [id number] 2022 [place] 00:00:00 Problems Condition Condition Condition Status Onset Resolution Last Treating Co mments Source Name Details Category Date Date Treatment Clinician Date History of History of Disease Active 2021-06 U nivers right right 1-17 [place] am[place] amputation 00 Me dical Branch Open wound Open wound Disease Active 2021-06 U nivers of toe, of toe, 0-20 ity of initial initial 00:00: [place] encounter encounter 00 Medi tom Branch Dialysis Dialysis Disease Active Overview: Un br[facility] AV fistula AV fistula 2-15 Formattin ity of malfunctio malfunctio 00:00: g of this [place] n, initial n, initial 00 note Me dical encounter encounter might be Br anch different from the original. Added automatic ally from request for surgery [id number] AVF AVF Disease Active Univers (arteriove (arteriove 03-10 it y of nous nous 00:00: [place] fistula) fistula) 00 Medica l Branch Arterioven Arterioven Disease Active Overview : Univers ous ous 03-10 Formattin ity of fistula fistula 00:00: g of this [place] occlusion, occlusion, 00 note Me dical initial initial might be Branch encounter encounter different from the original. 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 00:00: [place] with ESRD with ESRD 00 [facility] (end-stage (end-stage Br anch renal renal disease) disease) Essential Essential Disease Active Uni vers hypertensi hypertensi 4-02 it y of on on 00:00: [place] Medical [facility] Cardiomyop Cardiomyop Disease Active U nivers athy, athy, 606 ity of ischemic ischemic 00:00: [place] 00 Medical Branch S/P CABG x S/P CABG x Disease Active U nivers 3 3 6-06 ity of 00:00: [place] Medical Branch Coronary Coronary Disease Active Overview: Un bruno atheroscle atheroscle 6-05 Formattin ity of rosis rosis 00:00: g of this 00 note Medical might be Branch different from the original. Overview: S/p ACB x 3, Dr. Anguiano 10/23/17 - TAVERAS to LAD, SVG to LCx, SVG to ramus S/P CABG x S/P CABG x Disease Active [facility] Pre-transp Pre-transp Disease Active [facility] lant lant 4-17 [facility] evaluation evaluation 00:00: Me dical for ESRD for ESRD 00 Center (end stage (end stage renal renal disease) disease) Clotted Clotted Disease Active Univers renal renal 2-06 ity of dialysis dialysis 00:00: [place] AV graft, AV graft, 00 Medi tom initial initial Branch encounter encounter ESRD (end ESRD (end Disease Active 2016-06 Overview: Univers stage stage 2-08 Formattin ity of renal renal 00:00: g of this [place] disease) disease) 00 note Medica l on on might be Branch dialysis dialysis different from the original. Added automatic ally from request for surgery [id number] Stroke Stroke Disease Active Overview: [facility]- Formatt[facility] 00:00: g of this Medical 00 note Center might be different from the original. no residual Dialysis Dialysis Disease Active [facility] patient patient [facility] Insulin Insulin Disease Active Overview: [facility] dependent dependent Formattin L ukes diabetes diabetes g of this [facility] ical mellitus mellitus note Center might be different from the original. IDDM Hyperlipid Hyperlipid Disease Active [facility] HTN HTN Disease Active [facility] St (hypertens (hypertens Sushma kes ion) ion) [facility] GERD GERD Disease Active [facility] St (gastroeso (gastroeso Sushma kes phageal phageal Medical reflux reflux Center disease) disease) Anemia Anemia Disease Active [facility] Acute Acute Disease Active [facility] respirator respirator Sushma kes y y Medical insufficie insufficie Ce nter ncy ncy Hypotensio Hypotensio Disease Active [facility] n, n, [facility] unspecifie unspecifie Me dical d d Center hypotensio hypotensio n type n type Postoperat Postoperat Disease Active [facility] marie anemia marie anemia Sushma kes due to due to Medical acute acute Center blood loss blood loss Thrombocyt Thrombocyt [facility] Hyperglyce Hyperglyce Disease Active [facility] PAD PAD Disease Active Univers (periphera (periphera it y of l artery l artery [place] disease) disease) Medica l Branch Coronary Coronary Disease Active [facility] artery artery [facility] disease disease Medical Center ESRD (end ESRD (end Disease Active [facility] stage stage [facility] renal renal Medical disease) disease) Center Allergies, Adverse Reactions, Alerts Allergy Allergy Status Severity Reaction(s) Onset Inactive Treating Comm ents Source Name Type Date Date Clinician NO KNOWN Drug Active Univers ALLERGIE Class ity of S [place] [facility] Family History Family Member Diagnosis Comments Start Date Stop Date Source Natural father Diabetes [facility] Natural mother Diabetes [facility] Social History Social Habit Start Date Stop Date Quantity Comments Source Exposure to 2022-04-21 2022-05-01 Not sure [facility] SARS-CoV-2 00:00:00 22:31:00 [facility] (event) Branch History [facility] 2019-03-11 2019-03-11 5 University o f Financial 00:00:00 00:00:00 [place] [facility] History [facility] Food 2019-03-11 2019-03-11 1 Univers ity of Worry 00:00:00 00:00:00 [place] [facility] History [facility] Food 2019-03-11 2019-03-11 1 Univers ity of Scarcity 00:00:00 00:00:00 [place] [facility] History [facility] 2019-03-11 2019-03-11 2 University o f Transport Med 00:00:00 00:00:00 [place] Medic al Branch History [facility] 2019-03-11 2019-03-11 2 University o f Transport Non-Med 00:00:00 00:00:00 [facility] edical Branch Education 2019-03-10 2019-03-10 12 [facility] 00:00:00 00:00:00 [facility] Branch Alcohol intake 2017-10-24 2017-10-[address] [facility] 00:00:00 00:00:00 non-drinker of Medical Ce nter alcohol (finding) Tobacco use and 2017-09-30 2017-09-[address] Sushma kes exposure 00:00:00 00:00:00 [facility] Center Tobacco Comment 2017-09-30 2017-09-[address] Sushma kes 00:00:00 00:00:00 Medical Center History of 1972-06-16 2016-07-08 Cigarette Smoker Universi ty of tobacco use 00:00:00 00:00:00 [facility] Sex Assigned At [birth year] ROE Lara 00:00:00 00:00:00 Medical Center Smoking Status Start Date Stop Date Source Ex-smoker 2022-01-01 00:00:00 2022-01-01 00:00:00 [facility] Medications Ordered Filled Start Stop Current Ordering Indication Dosage Frequency Signature Comments Components Source Medication Medication Date Date Medication? Clinician (SIG) Name Name aspirin 2021-06 Yes 81mg Take 81 mg U nivers mg chewable 1-19 by mouth ity of tablet 00:08: daily. [address] Branch Cholecalcif 2021-06 Yes 1{tbl} Take 1 Un bruno julito, 1-19 tablet by ity of Vitamin D3, 00:08: mouth [place] 125 mcg 15 daily. Medical (5,000 Branch unit) tablet aspirin 81 2021-06 Yes 81mg Take 81 mg U nivers mg chewable 1-19 by mouth ity of tablet 00:08: daily. [address] Branch Cholecalcif 2021-06 Yes 1{tbl} Take 1 Un bruno julito, 1-19 tablet by ity of Vitamin D3, 00:08: mouth [place] 125 mcg 15 daily. Medical (5,000 Branch unit) tablet aspirin 2021-06 Yes 81mg Take 81 mg U nivers mg chewable 1-19 by mouth ity of tablet 00:08: daily. [address] Cholecalcif 2021-06 Yes 1{tbl} Take 1 Un bruno julito, 1-19 tablet by ity of Vitamin D3, 00:08: mouth [place] 125 mcg 15 daily. Medical (5,000 Branch unit) tablet aspirin 2021-06 Yes 81mg Take 81 mg U nivers mg chewable 1-19 by mouth ity of tablet 00:08: daily. [address] Branch Cholecalcif 2021-06 Yes 1{tbl} Take 1 Un bruno julito, 1-19 tablet by ity of Vitamin D3, 00:08: mouth [place] 125 mcg 15 daily. Medical (5,000 Branch unit) tablet aspirin 2021-06 Yes 81mg Take 81 mg U nivers mg chewable 1-19 by mouth ity of tablet 00:08: daily. [place] 15 Medical Branch Cholecalcif 2021-06 Yes 1{tbl} Take 1 Un bruno julito, 1-19 tablet by ity of Vitamin D3, 00:08: mouth [place] 125 mcg 15 daily. Medical (5,000 Branch unit) tablet epoetin 2021-06 8000U 8,000 Univers za-epbx 1-18 11-18 Units, ity of (RETACRIT) 15:00: 17:21 Intravenou [place] injection 00 :00 s, Medical 8,000 Units DIALYSIS Bran ch ONCE - [facility] DSU, 1 dose, On Fri05/03/22 at 0900, Routine
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 HYDROcodone 2021-06 Yes [id number] 1{tbl} Take 1 Un bruno -acetaminop 1-18 tablet by ity of hen 10-325 00:00: mouth [place] mg tablet 00 every 6 Medical (six) Branch hours as needed for Pain (scale 7-10). Indication s: acute pain gabapentin 2021-06 Yes [id number] 300mg Take 1 Univers 300 mg 1-18 capsule by ity of capsule 00:00: mouth in [place] the Medical morning Branch and 1 capsule in the evening. methocarbam 2021-06 Yes [id number] 500mg Take 1 Univers oL 500 mg 1-18 tablet by ity o f tablet 00:00: mouth 4 [place] 00 (four) Medical times Branch daily as needed (muscle spasms). HYDROcodone 2021-06 Yes [id number] 1{tbl} Take 1 Un bruno -acetaminop 1-18 tablet by ity of hen 10-325 00:00: mouth [place] mg tablet 00 every 6 Medical (six) Branch hours as needed for Pain (scale 7-10). Indication s: acute pain gabapentin 2021-06 Yes [id number] 300mg Take 1 Univers 300 mg 1-18 capsule by ity of capsule 00:00: mouth in [place] 00 the Medical morning Branch and 1 capsule in the evening. methocarbam 2021-06 Yes [id number] 500mg Take 1 Univers oL 500 mg 1-18 tablet by ity o f tablet 00:00: mouth 4 (four) Medical times Branch daily as needed (muscle spasms). HYDROcodone 2021-06 Yes [id number] 1{tbl} Take 1 Un bruno -acetaminop 1-18 tablet by ity of hen 10-325 00:00: mouth [place] mg tablet 00 every 6 Medical (six) Branch hours as needed for Pain (scale 7-10). Indication s: acute pain gabapentin 2021-06 Yes [id number] 300mg Take 1 Univers 300 mg 1-18 capsule by ity of capsule 00:00: mouth in [place] 00 the Medical morning Branch and 1 capsule in the evening. methocarbam 2021-06 Yes [id number] 500mg Take 1 Univers oL 500 mg 1-18 tablet by ity o f tablet 00:00: mouth 4 (four) Medical times Branch daily as needed (muscle spasms). HYDROcodone 2021-06 Yes [id number] 1{tbl} Take 1 Un bruno -acetaminop 1-18 tablet by ity of hen 10-325 00:00: mouth [place] mg tablet 00 every 6 Medical (six) Branch hours as needed for Pain (scale 7-10). Indication s: acute pain gabapentin 2021-06 Yes [id number] 300mg Take 1 Univers 300 mg 1-18 capsule by ity of capsule 00:00: mouth in [place] the Medical morning Branch and 1 capsule in the evening. methocarbam 2021-06 Yes [id number] 500mg Take 1 Univers oL 500 mg 1-18 tablet by ity o f tablet 00:00: mouth (four) Medical times Branch daily as needed (muscle spasms). HYDROcodone 2021-06 Yes [id number] 1{tbl} Take 1 Un bruno -acetaminop 1-18 tablet by ity of hen 10-325 00:00: mouth [place] mg tablet 00 every 6 Medical (six) Branch hours as needed for Pain (scale 7-10). Indication s: acute pain gabapentin 2021-06 Yes [id number] 300mg Take 1 Univers 300 mg 1-18 capsule by ity of capsule 00:00: mouth in [place] 00 the Medical morning Branch and 1 capsule in the evening. docusate 2021-06- Yes [id number] 100mg Take 1 Univers 100 mg 1-18 12-04 capsule by ity of capsule 00:00: 05:59 mouth in [place] 00 :00 the Medical morning Branch for 15 days. docusate 2021-06- Yes [id number] 100mg Take 1 Univers 100 mg 1-18 12-04 capsule by ity of capsule 00:00: 05:59 mouth in [place] 00 :00 the [facility] morning Branch for 15 days. docusate 2021-06- Yes [id number] 100mg Take 1 Univers 100 mg 1-18 12-04 capsule by ity of capsule 00:00: 05:59 mouth in [place] 00 :00 the [facility] morning [place] for 15 days. docusate 2021-06- Yes [id number] 100mg Take 1 Univers 100 mg 1-18 12- capsule by ity of capsule 00:00: 05:59 mouth in [place] 00 :00 the [facility] for 15 days. docusate 2021-06- Yes [id number] 100mg Take 1 Univers 100 mg 1-18 12- capsule by ity of capsule 00:00: 05:59 mouth in [place] 00 :00 the [facility] for 15 days. gabapentin 2021-06- No [id number] 300mg Take 1 Univers 300 mg 1-18 -18 capsule by ity of capsule 00:00: 00:00 mouth in [place] 00 :00 the [facility] and 1 capsule in the evening. Do all this for 21 days. HYDROcodone 2021-06- No [id number] 1{tbl} Take 1 U nivers -acetaminop 1-18 11-18 tablet by it y of hen 10-325 00:00: 00:00 mouth [place] mg tablet 00 :00 every 6 Medical (six) Branch hours as needed for Pain (scale 7-10) for up to 7 days. Indication s: acute pain methocarbam 2021-06- No [id number] 500mg Take 1 Univers oL 500 mg 1-18 11-18 tablet by ity of tablet 00:00: 00:00 mouth 4 [place] 00 :00 (four) Medical times Branch daily as needed (muscle spasms) for up to 14 days. gabapentin 2021-06 Yes 300mg 300 mg, Uni vers (NEURONTIN) 1-16 Oral, BID, it y of capsule 300 02:00: First dose [place] mg 00 (after Medical last Branch modificati on) on Fri04/30/22 at 2000, Until Discontinu ed, Routine amLODIPine 2021-06 Yes 2.5mg 2.5 mg, Uni vers (NORVASC) -14 Oral, ity of tablet 2.5 15:00: DAILY, [place] mg 00 First dose Medical on Fri Branch 04/29/22 at 0900, Until Discontinu ed, Routine metoprolol 2021-06 Yes 12.5mg 12.5 mg, U nivers succinate 09 Oral, BID, ity of XL (TOPROL 14:00: First dose [place] XL) tablet 00 (after Medical 12.5 mg last Branch modificati on) on Fri04/24/22 at 0800, Until Discontinu ed, Routine apixaban 2021-06 Yes 2.5mg 2.5 mg, Unive rs (ELIQUIS) 07 Oral, BID, ity of tablet 2.5 14:00: First dose [place] mg 00 on Fri Medical 04/22/22 at Branch 0800, Until Discontinu ed, Routine
Indicatio ns: VTE Prophylaxi s (For Total Hip Arthroplas ty Only) pantoprazol 2021-06 Yes 40mg 40 mg, Univ ers e 06 Oral, ity of (PROTONIX) 15:00: DAILY, [place] EC tablet 00 First dose Medi tom 40 mg on [facility] Branch 04/21/22 at 0900, Until Discontinu ed, Routine NaCl 0.9% 2021-06- No 5mL 5 mL, Slow U nivers (NS) 06-18 IV Push, ity of injection 5 13:45: 14:22 ONCE, 1 [place] mL 00 :00 dose, On Medical [place] Branch 04/18/22 at 0845, Routine heparin 2021-06 Yes 2000U PRN - SEE Univ ers 1,000 06-18 INSTRUCTIO ity of unit/mL (10 13:43: NS, [place] mL) - Starting Medical dialysis on [place] Branch catheter 04/18/22 at care 0843, Until Discontinu ed, Routine
For Priming of Ports:&nbs p; &n bsp; After initial saline flush, prime each port with heparin according to the priming volume listed on each catheter port for catheter lock.
heparin 2021-06 Yes 2000U PRN - SEE Univ ers 1,000 06-18 INSTRUCTIO ity of unit/mL (10 13:43: NS, [place] mL) - Starting Medical dialysis on [place] Branch catheter 04/18/22 at care 0843, Until Discontinu ed, Routine
For Priming of Ports:&nbs p; &n bsp; After initial saline flush, prime each port with heparin according to the priming volume listed on each catheter port for catheter lock.
morpHINE (4 2021-06- No 4mg 4 mg, Slow Univers mg/mL) 06-18 IV Push, ity of injection 4 08:45: 08:48 ONCE, 1 [place] mg 00 :00 dose, On Medical [place] Branch 04/18/22 at 0345, Routine morpHINE (2 2021-06 Yes 2mg 2 mg, Slow Univers mg/mL) 06-18 IV Push, ity of injection 2 08:41: Q4HPRN, [place] as mg 45 Starting Medical on [place] Branch 04/18/22 at 0341, Until Discontinu ed, Routine, Pain (scale 7-10) morpHINE (2 2021-06- No 2mg 2 mg, Slow Univers mg/mL) 06-18 IV Push, ity of injection 2 08:41: 17:20 Q4HPRN, [place] mg 45 :48 Starting Medical on [place] Branch 04/18/22 at 0341, Until [place] 05/02/22 at 1120, Routine, Pain (scale 7-10) lactated 2021-06 Yes 500mL at 75 Univers ringers IV 1-02 mL/hr, 500 ity of infusion 20:00: mL, IV [place] 500 mL 00 Infusion, Medical CONTINUOUS Branch , Starting on Fri04/17/22 at 1500, Until Discontinu ed, Routine, PACU FENTanyl PF 2021-06- No 25ug 25 mcg, Un bruno (SUBLIMAZE 06-17 Slow IV ity o f (PF)) 04:15: 03:26 Push, [place] injection 00 :00 ONCE, 1 Medical 25 mcg dose, On Branch Tu04/16/22 at 2315, Routine methocarbam 2021-06 Yes 500mg 500 mg, Un bruno oL 1-01 Oral, QID, ity of (ROBAXIN) 21:00: First dose [place] tablet 500 00 on Fri Medical mg 04/16/22 at Branch 1600, Until Discontinu ed, Routine HYDROcodone 2021-06 Yes 1{tbl} 1 tablet, Univers -acetaminop 1-01 Oral, Q4H, it y of hen (NORCO) 21:00: First dose [place] 10-325 mg 00 (after Medical tablet 1 last tablet modificati on) on Fri04/16/22 at 1600, Until Discontinu ed, Routine methocarbam 2021-06 Yes 500mg 500 mg, Un bruno oL 1-01 Oral, QID, ity of (ROBAXIN) 21:00: First dose [place] tablet 500 00 on Fri Medical mg 04/16/22 at Branch 1600, Until Discontinu ed, Routine HYDROcodone 2021-06 Yes 1{tbl} 1 tablet, Univers -acetaminop 1-01 Oral, Q4H, it y of hen (NORCO) 21:00: First dose [place] 10-325 mg 00 (after Medical tablet 1 last tablet modificati on) on Fri04/16/22 at 1600, Until Discontinu ed, Routine heparin 2021-06 Yes 2000U PRN - SEE Univ ers 1,000 06-16 INSTRUCTIO ity of unit/mL (10 00:41: NS, [place] mL) - 13 Starting Medical dialysis on Fri [place] catheter 04/15/22 care at 1941, Until Discontinu ed, Routine
For Priming of Ports:&nbs p; &n bsp; After initial saline flush, prime each port with heparin according to the priming volume listed on each catheter port for catheter lock.
diphenhydrA 2021-06- No 25mg 25 mg, Uni vers MINE 0-30 10-30 Oral, ity of (BENADRYL) 13:15: 14:00 ONCE, 1 [place] as tablet 25 00 :00 dose, On Medica l mg Sun Branch 04/14/22 at 0815, Routine NaCl 0.9% 2021-06- No 5mL 5 mL, Slow U nivers (NS) 0-04-12 IV Push, ity of injection 5 15:00: 15:00 ONCE, 1 [place] mL 00 :00 dose, On Medical Fri Branch 04/12/22 at 1000, Routine calcium 2021-06- No 1g 1 g, IV Univer s gluconate 1 004-12 Infusion, it y of g in NaCl 13:45: 19:06 at 100 [place] 50 mL 00 :00 mL/hr Medical (ISO-OSM) Administer Bran ch RTU IV over 30 infusion 1 Minutes, g ONCE, 1 dose, On Fri04/12/22 at 0845, Routine polyethylen 2021-06 Yes 17g 17 g, Unive rs e glycol 0-28 Oral, ity of 3350 powder 12:58: [id number], [place] 17 g 09 Starting Medical on Fri Branch 04/12/22 at 0758, Until Discontinu ed, Routine, no bm polyethylen 2021-06 Yes 17g 17 g, Unive rs e glycol 0-28 Oral, ity of 3350 powder 12:58: [id number], [place] 17 g 09 Starting Medical on Fri Branch 04/12/22 at 0758, Until Discontinu ed, Routine, no bm FENTanyl 2021-06- No Patient Unive rs 1000 004-16 [place] ity of mcg/100 mL 07:00: 20:48 Dose: 10 [place] 0.9% NaCl 00 :19 mcg
Loc Medi tom [employer] kout Branch Interval: 7 Minutes
Basal Rate: 0 mcg/hr<BR& gt;Four Hour Dose Limit: 200 mcg
IV Infusion, 100 mL, CONTINUOUS , Starting on Fri04/12/22 at 0200, Until Fri04/16/22 at 1548 naloxone 2021-06 Yes .1mg 0.1 mg, Univer s (NARCAN) 0- Slow IV ity of injection 05:49: Push, [place] 0.1 mg 38 SEE-INSTRU Medical CTIONS, Branch Starting on Fri04/12/22 at 0049, Until Discontinu ed, Routine naloxone 2021-06 Yes .1mg 0.1 mg, Univer s (NARCAN) 0- Slow IV ity of injection 05:49: Push, [place] 0.1 mg 38 SEE-INSTRU Medical CTIONS, Branch Starting on Fri04/12/22 at 0049, Until Discontinu ed, Routine HYDROmorpho 2021-06- No .2mg 0.2 mg, Un bruno ne 04-12 Slow IV ity of (DILAUDID) 05:00: 04:41 Push, [place] injection 00 :00 ONCE, 1 Medical 0.2 mg dose, On Branch Fri04/12/22 at 0000, Routine
Use approved by (Faculty): INTENS[facility] CARE [facility] felodipine 2021-06 Yes 5mg 5 mg, Univer s (PLENDIL) 0-28 Oral, BID, ity of 24 hr 01:00: First dose [place] tablet 5 mg 00 (after Medica l last Branch modificati on) on Fri04/11/22 at 1999, Until Discontinu ed, Routine losartan 2021-06 Yes 50mg 50 mg, Univers (COZAAR) 0-28 Oral, BID, ity o f tablet 50 01:00: First dose [place] mg 00 (after Medical last Branch modificati on) on Fri04/11/22 at 1999, Until Discontinu ed, Routine felodipine 2021-06 Yes 5mg 5 mg, Univer s (PLENDIL) 0-28 Oral, BID, ity of 24 hr 01:00: First dose [place] tablet 5 mg 00 (after Medica l last Branch modificati on) on Fri04/11/22 at 1999, Until Discontinu ed, Routine losartan 2021-06 Yes 50mg 50 mg, Univers (COZAAR) 0-28 Oral, BID, ity o f tablet 50 01:00: First dose [place] mg 00 (after Medical last Branch modificati on) on Fri04/11/22 at 1999, Until Discontinu ed, Routine felodipine 2021-06 Yes 5mg 5 mg, Univer s (PLENDIL) 0-28 Oral, BID, ity of 24 hr 01:00: First dose [place] tablet 5 mg 00 (after Medica l last Branch modificati on) on Fri04/11/22 at 1999, Until Discontinu ed, Routine losartan 2021-06 Yes 50mg 50 mg, Univers (COZAAR) 0-28 Oral, BID, ity o f tablet 50 01:00: First dose [place] mg 00 (after Medical last Branch modificati on) on [place] 04/11/22 at 2000, Until Discontinu ed, Routine heparin 2021-06 Yes 1300U/h 1,300 Univer s 25,000 0-27 Units/hr ity of Units/250 21:43: (13 [place] mL 40 mL/hr), IV Medical (Premixed Infusion, Branc h Bag) in TITRATE, 0.45 % NS Parameters in Admin. Instr., Starting on [place] 04/11/22 at 1643
CA UTION - If LMWH given in ER, AVOID bolus and start next dose/drip 24 hrs after ER dosage.&nb sp; M ust program rate using programmab le infusion pump.&nbsp ; Elke ck with the ordering provider first prior to any administra tion should the patient be on existing/a dditional anticoagul ant therapy. Rang e, Dosing and Testing: &nbs p;DO NOT ADJUST INITIAL BOLUS OR INITIAL INFUSION RATE.&nbsp ; _ &nb sp;FOR [place], [facility], AND [facility] ONLY &nbs p; - aPTT < 35: & nbsp;Bolus 5000 units, increase rate 300 units/hr&n bsp; - aPTT 35-44:&nbs p; Iain maral 3000 units, increase rate 200 units/hr&n bsp; - aPTT 45-54:&amp ;nbsp;&nbs p;Increase rate 100 units/hr&n bsp; - aPTT 55-85:&nbs p; NO CHANGE&nbs p; - aPTT 86-95:&nbs p; De crease rate 100 units/hr&n bsp; - aPTT 96-120:&nb sp;&nb sp;Hold 30 minutes, decrease rate 150 units/hr&n bsp; - aPTT > 120: Hold 60 minutes, decrease rate 200 units/hr&n bsp; Check aPTT 6 hours after initiation , then Q6H after every change, aPTT Q12H once therapeuti c levels are reached.&n bsp; &nbs p; __ &n bsp;FOR [facility] ONLY - aPTT < 40: & nbsp;Bolus 5000 units, increase rate 300 units/hr&n bsp; - aPTT 40-49:&nbs p; Iain maral 3000 units, increase rate 200 units/hr&n bsp; - aPTT 50-59:&nbs p; In crease rate 100 units/hr&n bsp; - aPTT 60-85:&nbs p; NO CHANGE&nbs p; - aPTT 86-95:&nbs p; De crease rate 100 units/hr&n bsp; - aPTT 96-120:&nb sp; H old 30 minutes, decrease rate 150 units/hr&n bsp; - aPTT > 120: Hold 60 minutes, decrease rate 200 units/hr&n bsp; Check aPTT 6 hours after initiation , then Q6H after every change, aPTT Q12H once therapeuti c levels are reached.<b r> heparin 2021-06- No 1300U/h 1,300 Unive rs 25,000 11-04 Units/hr ity of Units/250 21:43: 17:04 (13 [place] mL 40 :47 mL/hr), IV Medical (Premixed Infusion, Branc h Bag) in TITRATE, 0.45 % NS Parameters in Admin. Instr., Starting on [place] 04/11/22 at 1643
CA UTION - If LMWH given in ER, AVOID bolus and start next dose/drip 24 hrs after ER dosage.&nb sp; M ust program rate using programmab le infusion pump.&nbsp ; Elke ck with the ordering provider first prior to any administra tion should the patient be on existing/a dditional anticoagul ant therapy. Rang e, Dosing and Testing: &nbs p;DO NOT ADJUST INITIAL BOLUS OR INITIAL INFUSION RATE.&nbsp ; _ &nb sp;FOR [facility], [facility], AND [facility] ONLY &nbs p; - aPTT < 35: & nbsp;Bolus 5000 units, increase rate 300 units/hr&n bsp; - aPTT 35-44:&nbs p; Iain maral 3000 units, increase rate 200 units/hr&n bsp; - aPTT 45-54:&amp ;nbsp;&nbs p;Increase rate 100 units/hr&n bsp; - aPTT 55-85:&nbs p; NO CHANGE&nbs p; - aPTT 86-95:&nbs p; De crease rate 100 units/hr&n bsp; - aPTT 96-120:&nb sp;&nb sp;Hold 30 minutes, decrease rate 150 units/hr&n bsp; - aPTT > 120: Hold 60 minutes, decrease rate 200 units/hr&n bsp; Check aPTT 6 hours after initiation , then Q6H after every change, aPTT Q12H once therapeuti c levels are reached.&n bsp; &nbs p; __ &n bsp;FOR [facility] ONLY - aPTT < 40: & nbsp;Bolus 5000 units, increase rate 300 units/hr&n bsp; - aPTT 40-49:&nbs p; Iain maral 3000 units, increase rate 200 units/hr&n bsp; - aPTT 50-59:&nbs p; In crease rate 100 units/hr&n bsp; - aPTT 60-85:&nbs p; NO CHANGE&nbs p; - aPTT 86-95:&nbs p; De crease rate 100 units/hr&n bsp; - aPTT 96-120:&nb sp; H old 30 minutes, decrease rate 150 units/hr&n bsp; - aPTT > 120: Hold 60 minutes, decrease rate 200 units/hr&n bsp; Check aPTT 6 hours after initiation , then Q6H after every change, aPTT Q12H once therapeuti c levels are reached.<b r> pantoprazol 2021-06 Yes 40mg 40 mg, Univ ers e Slow IV ity of (PROTONIX) 15:00: Push, [place] injection 00 Q24H, Medical 40 mg First dose Branch on [place] 04/11/22 at 1000, Until Discontinu ed pantoprazol 2021-06 Yes 40mg 40 mg, Univ ers e Slow IV ity of (PROTONIX) 15:00: Push, [place] injection 00 Q24H, Medical 40 mg First dose Branch on [place] 04/11/22 at 1000, Until Discontinu ed pantoprazol 2021-06 No 40mg 40 mg, Uni vers e 05 Slow IV ity of (PROTONIX) 15:00: 17:06 Push, [place] injection 00 :23 Q24H, Medical 40 mg First dose Branch on [place] 04/11/22 at 1000, Until Discontinu ed heparin 2021-06 Yes 3000U FOR Univers (1,000 0-27 REBOLUSING ity of unit/mL, 10 11:00: , Starting [place] mL vial) 00 on [place] Medical for 04/11/22 Branch Rebolusing at 0600, Until Discontinu ed, Routine
Dosing based on aPPT testing parameters (refer to continuous heparin drip order).
heparin 2021-06 Yes 500U/h 500 Univers 25,000 0-27 Units/hr ity of Units/250 11:00: (5 mL/hr), [place] mL 00 IV Medical (Premixed Infusion, Branc h Bag) in TITRATE, 0.45 % NS Parameters in Admin. Instr., Starting on [place] 04/11/22 at 0600
CA UTION - If LMWH given in ER, AVOID bolus and start next dose/drip 12 hrs after ER dosage.&nb sp; M ust program rate using programmab le infusion pump.&nbsp ; Elke ck with the ordering provider first prior to any administra tion should the patient be on existing/a dditional anticoagul ant therapy. Rang e, Dosing and Testing: &nbs p;FOR [place], [facility], AND [facility] ONLY - aPTT < 35: & nbsp;Bolus 5000 units, increase rate 300 units/hr&n bsp; - aPTT 35-44:&nbs p; Iain maral 3000 units, increase rate 200 units/hr&n bsp; - aPTT 45-54:&nbs p; In crease rate 100 units/hr&n bsp; - aPTT 55-85:&nbs p; NO CHANGE&nbs p; - aPTT 86-95:&nbs p; De crease rate 100 units/hr&n bsp; - aPTT 96-120:&nb sp; H old 30 minutes, decrease rate 150 units/hr&n bsp; - aPTT > 120:&n bsp; Hold 60 minutes, decrease rate 200 units/hr&n bsp; Check aPTT 6 hours after initiation , then Q6H after every change, aPTT Q12H once therapeuti c levels are reached.&n bsp;&n bsp; ____ &amp ;nbsp;&nbs p;FOR [facility] ONLY - aPTT < 40: & nbsp;Bolus 5000 units, increase rate 300 units/hr&n bsp; - aPTT 40-49:&nbs p; Iain maral 3000 units, increase rate 200 units/hr&n bsp; - aPTT 50-59:&nbs p; In crease rate 100 units/hr&a mp;nbsp; - aPTT 60-85:&nbs p; NO CHANGE&nbs p; - aPTT 86-95:&nbs p; De crease rate 100 units/hr&n bsp; - aPTT 96-120:&nb sp; H old 30 minutes, decrease rate 150 units/hr&n bsp; - aPTT > 120: Hold 60 minutes, decrease rate 200 units/hr&a mp;nbsp;&n bsp;Check aPTT 6 hours after initiation , then Q6H after every change, aPTT Q12H once therapeuti c levels are reached.&n bsp; DO NOT ADJUST INITIAL BOLUS OR INITIAL INFUSION RATE.
heparin 2021-06 Yes 3000U FOR Univers (1,000 0-27 REBOLUSING ity of unit/mL, 10 11:00: , Starting [place] mL vial) 00 on [place] Medical for 04/11/22 Branch Rebolusing at 0600, Until Discontinu ed, Routine
Dosing based on aPPT testing parameters (refer to continuous heparin drip order).
heparin 2021-06- No 3000U FOR Univers (1,000 0-07 REBOLUSING ity of unit/mL, 10 11:00: 13:48 , Starting [place] mL vial) 00 :21 on [place] Medical for 04/11/22 Branch Rebolusing at 0600, Until 04/22/22 at 0748, Routine
Dosing based on aPPT testing parameters (refer to continuous heparin drip order).
heparin 2021-06- No 500U/h 500 Univers 25,000 0-11 04- Units/hr ity of Units/250 11:00: 21:43 (5 mL/hr), [place] mL 00 :30 IV Medical (Premixed Infusion, Branc h Bag) in TITRATE, 0.45 % NS Parameters in Admin. Instr., Starting on [place] 04/11/22 at 0600
CA UTION - If LMWH given in ER, AVOID bolus and start next dose/drip 12 hrs after ER dosage.&nb sp; M ust program rate using programmab le infusion pump.&nbsp ; Elke ck with the ordering provider first prior to any administra tion should the patient be on existing/a dditional anticoagul ant therapy. Rang e, Dosing and Testing: &nbs p;FOR [place], [facility], AND [facility]ES ONLY - aPTT < 35: & nbsp;Bolus 5000 units, increase rate 300 units/hr&n bsp; - aPTT 35-44:&nbs p; Iain maral 3000 units, increase rate 200 units/hr&n bsp; - aPTT 45-54:&nbs p; In crease rate 100 units/hr&n bsp; - aPTT 55-85:&nbs p; NO CHANGE&nbs p; - aPTT 86-95:&nbs p; De crease rate 100 units/hr&n bsp; - aPTT 96-120:&nb sp; H old 30 minutes, decrease rate 150 units/hr&n bsp; - aPTT > 120:&n bsp; Hold 60 minutes, decrease rate 200 units/hr&n bsp; Check aPTT 6 hours after initiation , then Q6H after every change, aPTT Q12H once therapeuti c levels are reached.&n bsp;&n bsp; ____ &amp ;nbsp;&nbs p;FOR [facility] ONLY - aPTT < 40: & nbsp;Bolus 5000 units, increase rate 300 units/hr&n bsp; - aPTT 40-49:&nbs p; Iain maral 3000 units, increase rate 200 units/hr&n bsp; - aPTT 50-59:&nbs p; In crease rate 100 units/hr&a mp;nbsp; - aPTT 60-85:&nbs p; NO CHANGE&nbs p; - aPTT 86-95:&nbs p; De crease rate 100 units/hr&n bsp; - aPTT 96-120:&nb sp; H old 30 minutes, decrease rate 150 units/hr&n bsp; - aPTT > 120: Hold 60 minutes, decrease rate 200 units/hr&a mp;nbsp;&n bsp;Check aPTT 6 hours after initiation , then Q6H after every change, aPTT Q12H once therapeuti c levels are reached.&n bsp; DO NOT ADJUST INITIAL BOLUS OR INITIAL INFUSION RATE.
magnesium 2021-06- No 2g 2 g, IV Univ ers sulfate in 04-11 Piggyback, it y of water 2 06:45: 08:45 Administer Luis Alberto as gram/50 mL 00 :00 over 60 Medica l (4 %) Minutes, Branch infusion 2 ONCE, 1 g dose, On [place] 04/11/22 at 0145, Routine phenylephri 2021-06- Yes .5ug/kg 0.5-2 U nivers ne 10 mg in 04-12 /min mcg/kg/min i ty of NaCl 0.9% 06:31: 06:30 ?69.5 kg [place] Alberto as (NS) 250 mL 43 :43 (52.125-20 Me dical infusion 8.5 mL/hr, Branc h RTU rounded to 52.13-208. 5 mL/hr), IV Infusion, TITRATE, MAP Goal > or = 65 mmHg, Starting on [place] 04/11/22 at 0131, For 24 hours
I nitiate infusion at 0.5 mcg/kg/min . &nb sp;Increas e by 0.1 mcg/kg/min every 30 seconds to 5 minutes as needed to reach and maintain goal blood pressure.& nbsp;&nbsp ;Maximum dose = 2 mcg/kg/min .&nbsp ; If goal not maintained at maximum allowed dose, contact prescriber . &nb sp;Adminis ter only one peripheral intravenou s vasopresso r at a time.
phenylephri 2021-06- No .5ug/kg 0.5-2 U nivers ne 10 mg in 04-12 /min mcg/kg/min i ty of NaCl 0.9% 06:31: 06:30 ?69.5 kg [place] as (NS) 250 mL 43 :43 (52.125-20 Me dical infusion 8.5 mL/hr, Branc h RTU rounded to 52.13-208. 5 mL/hr), IV Infusion, TITRATE, MAP Goal > or = 65 mmHg, Starting on [place] 04/11/22 at 0131, For 24 hours
I nitiate infusion at 0.5 mcg/kg/min . &nb sp;Increas e by 0.1 mcg/kg/min every 30 seconds to 5 minutes as needed to reach and maintain goal blood pressure.& nbsp;&nbsp ;Maximum dose = 2 mcg/kg/min .&nbsp ; If goal not maintained at maximum allowed dose, contact prescriber . &nb sp;Adminis ter only one peripheral intravenou s vasopresso r at a time.
propofoL IV 2021-06- No 5ug/kg/ 5-50 Un bruno infusion 0-27 10-27 min mcg/kg/min ity of 06:31: 13:17 ?69.5 kg [place] 25 :23 (2.085-20. Medical 85 mL/hr, Branch rounded to 2.09-20.85 mL/hr), IV Infusion, TITRATE, Sedation-R ASS score (0 to -1), Starting on [place] 04/11/22 at 0131
In itiate infusion at 5 mcg/kg/min and titrate by 5 mcg/kg/min every 30 seconds to 10 minutes to goal sedation score. Maximum dose = 50 mcg/kg/min . If goal not maintained at maximum allowed dose, contact prescriber . &nbs p;Tubing and unused portions of vials should be discarded after 12 hours.
propofoL IV 2021-06- No IV Unive rs infusion 0-27 10-27 Infusion, ity o f 04:21: 05:38 ONCE INTRA [place] 00 :45 PROCEDURE, Medical Starting Branch on Fri04/10/22 at 2321, Until Discontinu ed, Routine, Intra-op propofoL IV 2021-06- No IV Unive rs infusion 0-27 10-27 Infusion, ity o f 04:21: 05:38 ONCE INTRA [place] 00 :45 PROCEDURE, Medical Starting Branch on Fri04/10/22 at 2321, Until Discontinu ed, Routine, Intra-op calcium 2021-06- No Intravenou Uni vers chloride 0-27 10-27 s, ONCE ity of 100 mg/mL 03:50: 05:38 INTRA [place] (10 %) 00 :45 PROCEDURE, Medical syringe Starting Branch on Fri04/10/22 at 2250, Until Discontinu ed, Routine, Intra-op desmopressi 2021-06- No Intravenou Univers n (DDAVP) 0-27 10-27 s, ONCE ity of injection 03:11: 05:38 INTRA [place] 00 :45 PROCEDURE, Medical Starting Branch on Fri04/10/22 at 2211, Until Discontinu ed, Routine, Intra-op iodixanoL 2021-06- No PRN, Univers (VISIPAQUE 0-27 10-27 Starting ity of 270-150 mL) 03:09: 05:19 on Fri Luis Alberto as injection 00 :24 04/10/22 Medica l at 2209, Branch Until [place] 04/11/22 at 0019, Routine, Intra-op Transfuse 2021-06- No Routine Univ ers Packed RBC 0- 10-27 ity of (in 02:59: 05:38 [place] units)~On 36 :45 Medical hold for Branch procedure; 04/10 11 AM; Infuse Each Unit Over: 2 Hours cisatracuri 2021-06- No Intravenou Univers um (NIMBEX) 0-27 10-27 s, ONCE ity of injection 02:54: 05:38 INTRA [place] 00 :45 PROCEDURE, Medical Starting Branch on Fri04/10/22 at 2154, Until Discontinu ed, Routine, Intra-op Transfuse 2021-06- No Routine Univ ers Packed RBC 0-27 10-27 ity of (in 02:41: 05:38 [place] units)~On 01 :45 Medical hold for Branch procedure; 10 11 AM; Infuse Each Unit Over: 2 Hours NaCl 0.9% 2021-06- No IV Univers (NS) IV 0- 10-27 Infusion, ity of infusion 02:35: 05:38 CONTINUOUS [place] 00 :45 PRN, Medical Starting Branch on Fri04/10/22 at 2135, Until Discontinu ed, Routine, Intra-op protamine 2021-06- No Intravenou U nivers injection 0-27 10-27 s, ONCE ity of 02:02: 05:38 INTRA [place] 00 :45 PROCEDURE, Medical Starting Branch on Fri04/10/22 at 2102, Until Discontinu ed, Routine, Intra-op vancomycin 2021-06- No PRN, Univer s (VANCOCIN) 04-11 Starting ity of 1 g in 01:17: 05:19 on Fri [place] sodium 00 :24 04/10/22 Medical chloride at 2017, Branch 0.9 % Until [place] irrigation 04/11/22 at 0019, 1,000 mL, Intra-op thrombin 2021-06- No PRN, Univers (recombinan 04-11 Starting ity of t) 01:17: 05:19 on Fri [place] (RECOTHROM) 00 :24 04/10/22 Medi tom topical at 2017, Branch solution Until [place] 04/11/22 at 0019, Routine, Intra-op albumin 2021-06- No IV Univers (ALBUTEIN 5 04-11 Infusion, it y of %) 5 % 23:51: 05:38 CONTINUOUS [place] injection 00 :45 PRN, Medical Starting Branch on Fri04/10/22 at 1851, Until Discontinu ed, Intra-op heparin 2021-06- No ONCE INTRA Uni vers (1,000 04-11 PROCEDURE, ity of unit/mL, 10 23:13: 05:38 Starting [place] mL vial) 00 :45 on [facility] 04/10/22 Branch at 1813, Until Discontinu ed, Routine, Intra-op PHENYLephri 2021-06- No Slow IV Un bruno ne 1000 04-11 Push, ity of mcg/10 mL 22:30: 05:38 CONTINUOUS [place] in 0.9% 00 :45 PRN, Medical NaCl Starting Branch syringe on Fri04/10/22 at 1730, Until Discontinu ed, Routine, Intra-op PHENYLephri 2021-06- No Slow IV Un bruno ne 1000 04-11 Push, ONCE ity o f mcg/10 mL 20:13: 05:38 INTRA [place] in 0.9% 00 :45 PROCEDURE, Medica l NaCl Starting Branch syringe on Fri04/10/22 at 1513, Until Discontinu ed, Routine, Intra-op acetaminoph 2021-06- No IV Unive rs en ADULT 04-11 Infusion, ity o f (OFIRMEV) 20:12: 05:38 Administer [place] injection 00 :45 over 15 Medical Minutes, Branch ONCE INTRA PROCEDURE, Starting on Fri04/10/22 at 1512, Until Discontinu ed, Routine, Intra-op ePHEDrine 2021-06- No Intravenou U nivers 25 mg/5 mL 27 s, ONCE ity o f (5 mg/mL) 19:45: 05:38 INTRA [place] syringe 00 :45 PROCEDURE, Medica l Starting Branch on Fri04/10/22 at 1445, Until Discontinu ed, Routine, Intra-op dexamethaso 2021-06- No IV Push, U nivers ne 27 ONCE INTRA ity of (DECADRON 19:33: 05:38 PROCEDURE, [place] PHOSPHATE) 00 :45 Starting Medic al injection on Fri Branch 04/10/22 at 1433, Until Discontinu ed, Routine, Intra-op vancomycin 2021-06- No IV Univer s (VANCOCIN) 04-11 Piggyback, it y of injection 19:22: 05:38 ONCE INTRA [place] 00 :45 PROCEDURE, Medical Starting Branch on Fri04/10/22 at 1422, Until Discontinu ed, GASPER, Intra-op lactated 2021-06- No IV Univers ringers IV 027 Infusion, ity of infusion 19:11: 05:38 CONTINUOUS [place] 00 :45 PRN, Medical Starting Branch on Fri04/10/22 at 1411, Until Discontinu ed, Routine, Intra-op HYDROmorphO 2021-06- No Slow IV Un bruno ne 04-11 Push, ONCE ity of (DILAUDID) 19:11: 05:38 INTRA [place] injection 00 :45 PROCEDURE, Medi tom Starting Branch on Fri04/10/22 at 1411, Until Discontinu ed, Routine, Intra-op rocuronium 2021-06- No IV Push, Un bruno (ZEMURON) 027 ONCE INTRA ity of injection 19:11: 05:38 PROCEDURE, [place] 00 :45 Starting Medical on Fri Branch 04/10/22 at 1411, Until Discontinu ed, Routine, Intra-op propofoL IV 2021-06- No Intravenou Univers infusion 0- 10-27 s, ONCE ity of 19:11: 05:38 INTRA [place] 00 :45 PROCEDURE, Medical Starting Branch on Fri04/10/22 at 1411, Until Discontinu ed, Routine, Intra-op FENTanyl PF 2021-06- No Intravenou Univers (SUBLIMAZE 0- 10-27 s, ONCE ity o f (PF)) 19:11: 05:38 INTRA [place] injection 00 :45 PROCEDURE, Medi tom Starting Branch on Fri04/10/22 at 1411, Until Discontinu ed, Routine, Intra-op lidocaine 2021-06- No Intravenou U nivers 1% 0- 10-27 s, ONCE ity of (XYLOCAINE) 19:11: 05:38 INTRA [place] 100 mg/10 00 :45 PROCEDURE, Medi tom mL (1 %) Starting Branch injection on Fri04/10/22 at 1411, Until Discontinu ed, Routine, Intra-op scopolamine 2021-06- No Topical, U nivers transdermal 0- 10-27 Administer i ty of (TRANSDERM- 17:22: 05:38 over 72 [place] SCOP) patch 00 :45 Hours, Medica l ONCE INTRA Branch PROCEDURE, Starting on Fri04/10/22 at 1222, Until Discontinu ed, Routine, Intra-op heparin 2021-06- No PRN, Univers 10,000 0-26 10-27 Starting ity of units in NS 17:00: 05:19 on Fri Luis Alberto as 1000 mL for 00 :24 04/10/22 Medi tom vascular at 1200, Branch Intra-op heparin 2021-06 Yes 2000U PRN - SEE Univ ers 1,000 0-26 INSTRUCTIO ity of unit/mL (10 13:30: NS, [place] mL) - 08 Starting Medical dialysis on Fri Branch catheter 04/10/22 care at 0830, Until Discontinu ed, Routine
For Priming of Ports:&nbs p; &n bsp; After initial saline flush, prime each port with heparin according to the priming volume listed on each catheter port for catheter lock.
heparin 2021-06 Yes 2000U PRN - SEE Univ ers 1,000 0-26 INSTRUCTIO ity of unit/mL (10 13:30: NS, [place] mL) - 08 Starting Medical dialysis on Fri [place] catheter 04/10/22 care at 0830, Until Discontinu ed, Routine
For Priming of Ports:&nbs p; &n bsp; After initial saline flush, prime each port with heparin according to the priming volume listed on each catheter port for catheter lock.
lidocaine 2021-06- No .3mL 0.3 mL, Univ ers 1% (PF) 004-08 Infiltrati ity o f (XYLOCAINE) 20:14: 20:20 on, [place] injection 00 :00 DIALYSIS Medica l 0.3 mL ONCE PRN - [facility], 1 dose, Starting on Fri04/08/22 at 1514, Until Fri04/08/22 at 1520, Routine, Surgery/Pr ocedure aspirin 2021-06 Yes 81mg 81 mg, Univers chewable 0-24 Oral, ity of tablet 81 15:30: DAILY, [place] mg 00 First dose Medical on [facility] 04/08/22 at 1030, Until Discontinu ed, Routine aspirin 2021-06 Yes 81mg 81 mg, Univers chewable 0-24 Oral, ity of tablet 81 15:30: DAILY, [place] mg 00 First dose Medical on [facility] 04/08/22 at 1030, Until Discontinu ed, Routine aspirin 2021-06 Yes 81mg 81 mg, Univers chewable 0-24 Oral, ity of tablet 81 15:30: DAILY, [place] mg 00 First dose Medical on [facility] 04/08/22 at 1030, Until Discontinu ed, Routine aspirin 2021-06 Yes 81mg 81 mg, Univers chewable 0-24 Oral, ity of tablet 81 15:30: DAILY, [place] mg 00 First dose Medical on [facility] 04/08/22 at 1030, Until Discontinu ed, Routine iopamidol 2021-06- No PRN, Univers (ISOVUE 004-08 Starting ity of 370-500 mL) 14:59: 15:37 on Fri Luis Alberto as injection 00 :17 04/08/22 Medica l at 0959, Branch Until Fri04/08/22 at 1037, Routine, Intra-op lidocaine 2021-06- No PRN, Univers 1% (PF) 0-04-08 Starting ity of (XYLOCAINE) 14:09: 15:37 on Fri as injection 00 :17 04/08/22 Medica l at 0909, Branch Until Fri04/08/22 at 1037, Routine, Intra-op heparin 2021-06- No PRN, Univers 10,000 0-04-08 Starting ity of units in NS 12:53: 15:37 on Fri as 1000 mL for 00 :17 04/08/22 [facility] tom vascular at 0753, Branch Intra-op clopidogreL 2021-06 Yes 75mg 75 mg, Univ ers (PLAVIX) 75 0-23 Oral, ity of mg tablet 14:00: DAILY, [place] 75 mg 00 First dose Medical on [facility] 04/07/22 at 0900, Until Discontinu ed, Routine clopidogreL 2021-06 Yes 75mg 75 mg, Univ ers (PLAVIX) 75 0-23 Oral, ity of mg tablet 14:00: DAILY, [place] 75 mg 00 First dose Medical on [facility] 04/07/22 at 0900, Until Discontinu ed, Routine clopidogreL 2021-06 Yes 75mg 75 mg, Univ ers (PLAVIX) 75 0-23 Oral, ity of mg tablet 14:00: DAILY, [place] 75 mg 00 First dose Medical on [facility] 04/07/22 at 0900, Until Discontinu ed, Routine clopidogreL 2021-06 Yes 75mg 75 mg, Univ ers (PLAVIX) 75 0-23 Oral, ity of mg tablet 14:00: DAILY, [place] 75 mg 00 First dose Medical on [facility] 04/07/22 at 0900, Until Discontinu ed, Routine metoprolol 2021-06 Yes 25mg 25 mg, Unive rs succinate 0-23 Oral, BID, ity of XL (TOPROL 13:00: First dose [place] XL) tablet 00 on [facility] 25 mg 04/07/22 Branch at 0800, Until Discontinu ed, Routine metoprolol 2021-06 Yes 25mg 25 mg, Unive rs succinate 0-23 Oral, BID, ity of XL (TOPROL 13:00: First dose [place] XL) tablet 00 on [facility] 25 mg 04/07/22 Branch at 0800, Until Discontinu ed, Routine metoprolol 2021-06 Yes 25mg 25 mg, Unive rs succinate 0-23 Oral, BID, ity of XL (TOPROL 13:00: First dose [place] XL) tablet 00 on [facility] 25 mg 04/07/22 Branch at 0800, Until Discontinu ed, Routine metoprolol 2021-06 No 25mg 25 mg, Univ ers succinate 0-23 11-09 Oral, BID, ity of XL (TOPROL 13:00: 06:27 First dose [place] XL) tablet 00 :38 on [facility] 25 mg 04/07/22 Branch at 0800, Until Discontinu ed, Routine vancomycin 2021-06 No 15mg/kg 1,000 mg Univers (VANCOCIN) 04-06 (rounded ity of 1,000 mg in 18:45: 19:48 from 1,056 [place] NaCl 0.9% 00 :00 mg = 15 Medical (NS) 250 mL mg/kg Branch VIAL-MATE ?70.4 kg), IV IV piggyback Piggyback, ONCE, 1 dose, On [facility] 04/06/22 at 1345, Administer over 60 Minutes, 250 mL
Reas on for Anti-Infec tive: Documented Infection< br>Documen rudolph Infection Site: Skin / Soft Tissue
Duration of Therapy: 7 days sevelamer 2021-06 Yes 800mg 800 mg, Univ ers (RENVELA) 0-22 Oral, TID ity o f tablet 800 13:00: MEALS, [place] mg 00 First dose Medical on [facility] 04/06/22 at 0800, Until Discontinu ed, Routine sevelamer 2021-06 Yes 800mg 800 mg, Univ ers (RENVELA) 0-22 Oral, TID ity o f tablet 800 13:00: MEALS, [place] mg 00 First dose Medical on [facility] 04/06/22 at 0800, Until Discontinu ed, Routine sevelamer 2021-06 Yes 800mg 800 mg, Univ ers (RENVELA) 0-22 Oral, TID ity o f tablet 800 13:00: MEALS, [place] mg 00 First dose Medical on [facility] 04/06/22 at 0800, Until Discontinu ed, Routine sevelamer 2021-06 Yes 800mg 800 mg, Univ ers (RENVELA) 0-22 Oral, TID ity o f tablet 800 13:00: MEALS, [place] mg 00 First dose Medical on Fri Branch 04/06/22 at 0800, Until Discontinu ed, Routine pantoprazol 2021-06 No 20mg 20 mg, Uni vers e 04-06 Oral, ONCE ity of (PROTONIX) 05:45: 05:59 NOW, 1 [place] EC tablet 00 :00 dose, On Medica l 20 mg Fri Branch 04/06/22 at 0045, Routine ceFEPIme 2021-06- Yes 1000mg 1,000 mg, U nivers (MAXIPIME) 04-11 IV ity of 1,000 mg in 05:00: 04:59 Piggyback, [place] NaCl 0.9% 00 :00 Q24H ABX, Medic al (NS) 50 mL 5 doses, Branc h MINI-BAG First dose (after last modificati on) on Fri04/06/22 at 0000, Last dose on Fri04/10/22 at 0000, Administer over 30 Minutes, 50 mL
Reas on for Anti-Infec tive: Empiric Therapy for Suspected Infection< br>Empiric Therapy Site: Skin / Soft tissue
Duration of therapy: 5 days ceFEPIme 2021-06 No 1000mg 1,000 mg, U nivers (MAXIPIME) 04-10 IV ity of 1,000 mg in 05:00: 05:34 Piggyback, [place] NaCl 0.9% 00 :00 Q24H ABX, Medic al (NS) 50 mL 5 doses, Branc h MINI-BAG First dose (after last modificati on) on Fri04/06/22 at 0000, Last dose on Fri04/10/22 at 0000, Administer over 30 Minutes, 50 mL
Reas on for Anti-Infec tive: Empiric Therapy for Suspected Infection< br>Empiric Therapy Site: Skin / Soft tissue
Duration of therapy: 5 days ondansetron 2021-06 Yes 4mg 4 mg, Unive rs (ZOFRAN) 0 Oral, ity of tablet 4 mg 04:46: Q4HPRN, [place] as 28 Starting Medical on Fri Branch 04/05/22 at 2346, Until Discontinu ed, Routine, Nausea and Vomiting (N/V) ondansetron 2021-06 Yes 4mg 4 mg, Unive rs (ZOFRAN) 0-22 Oral, ity of tablet 4 mg 04:46: Q4HPRN, [place] as 28 Starting Medical on Fri Branch 04/05/22 at 2346, Until Discontinu ed, Routine, Nausea and Vomiting (N/V) ondansetron 2021-06 Yes 4mg 4 mg, Unive rs (ZOFRAN) 0-22 Oral, ity of tablet 4 mg 04:46: Q4HPRN, [place] as 28 Starting Medical on Fri Branch 04/05/22 at 2346, Until Discontinu ed, Routine, Nausea and Vomiting (N/V) ondansetron 2021-06 Yes 4mg 4 mg, Unive rs (ZOFRAN) 0-22 Oral, ity of tablet 4 mg 04:46: Q4HPRN, [place] as 28 Starting Medical on Fri Branch 04/05/22 at 2346, Until Discontinu ed, Routine, Nausea and Vomiting (N/V) atorvastati 2021-06 Yes 10mg 10 mg, Univ ers n (LIPITOR) 0-22 Oral, QHS, it y of tablet 10 02:00: First dose [place] mg 00 on [facility] 04/05/22 Branch at 2100, Until Discontinu ed, Routine atorvastati 2021-06 Yes 10mg 10 mg, Univ ers n (LIPITOR) 0-22 Oral, QHS, it y of tablet 10 02:00: First dose [place] mg 00 on [facility] 04/05/22 Branch at 2100, Until Discontinu ed, Routine atorvastati 2021-06 Yes 10mg 10 mg, Univ ers n (LIPITOR) 0-22 Oral, QHS, it y of tablet 10 02:00: First dose [place] mg 00 on [facility] 04/05/22 Branch at 2100, Until Discontinu ed, Routine atorvastati 2021-06 Yes 10mg 10 mg, Univ ers n (LIPITOR) 0-22 Oral, QHS, it y of tablet 10 02:00: First dose [place] mg 00 on [facility] 04/05/22 Branch at 2100, Until Discontinu ed, Routine losartan 2021-06 Yes 50mg 50 mg, Univers (COZAAR) 0-22 Oral, BID, ity o f tablet 50 01:00: First dose [place] mg 00 on Fri [facility] 04/05/22 Branch at 1999, Until Discontinu ed, Routine felodipine 2021-06 Yes 5mg 5 mg, Univer s (PLENDIL) 0-22 Oral, BID, ity of 24 hr 01:00: First dose [place] tablet 5 mg 00 on Fri Medica 04/05/22 Branch at 1999, Until Discontinu ed, Routine docusate 2021-06 Yes 100mg 100 mg, Unive rs (COLACE) 0-22 Oral, BID, ity o f capsule 100 01:00: First dose [place] mg 00 (after Medical last Branch modificati on) on Fri04/05/22 at 1999, Until Discontinu ed, Routine docusate 2021-06 Yes 100mg 100 mg, Unive rs (COLACE) 0-22 Oral, BID, ity o f capsule 100 01:00: First dose [place] mg 00 (after Medical last Branch modificati on) on Fri04/05/22 at 1999, Until Discontinu ed, Routine docusate 2021-06 Yes 100mg 100 mg, Unive rs (COLACE) 0-22 Oral, BID, ity o f capsule 100 01:00: First dose [place] mg 00 (after Medical last Branch modificati on) on Fri04/05/22 at 1999, Until Discontinu ed, Routine docusate 2021-06 Yes 100mg 100 mg, Unive rs (COLACE) 0-22 Oral, BID, ity o f capsule 100 01:00: First dose [place] mg 00 (after Medical last Branch modificati on) on Fri04/05/22 at 1999, Until Discontinu ed, Routine losartan 2021-06 No 50mg 50 mg, Univer s (COZAAR) 0-22 10- Oral, BID, ity of tablet 50 01:00: 13:17 First dose [place] mg 00 :23 on Fri [facility] 04/05/22 Branch at 1999, Until Discontinu ed, Routine felodipine 2021-06 No 5mg 5 mg, Unive rs (PLENDIL) 0-22 10-27 Oral, BID, ity of 24 hr 01:00: 13:17 First dose [place] tablet 5 mg 00 :23 on Fri Medica l 04/05/22 Branch at 2000, Until Discontinu ed, Routine ergocalcife 2021-06 Yes [id number] 50,000 Un bruno rol 0-21 Units, ity of (vitamin 23:30: Oral, [place] d2) 00 QWEEKLY, Medical (CALCIFEROL First dose Br anch ) capsule on Fri04/05/22 Units at 1830, Until Discontinu ed, Routine ergocalcife 2021-06 Yes [id number] 50,000 Un bruno rol 0-21 Units, ity of (vitamin 23:30: Oral, [place] d2) 00 QWEEKLY, Medical (CALCIFEROL First dose Br anch ) capsule on Fri04/05/22 Units at 1830, Until Discontinu ed, Routine ergocalcife 2021-06 Yes [id number] 50,000 Un bruno rol 0-21 Units, ity of (vitamin 23:30: Oral, [place] d2) 00 QWEEKLY, Medical (CALCIFEROL First dose Br anch ) capsule on Fri 5004/05/22 Units at 1830, Until Discontinu ed, Routine ergocalcife 2021-06 Yes [id number] 50,000 Un bruno rol 0-21 Units, ity of (vitamin 23:30: Oral, [place] d2) 00 QWEEKLY, Medical (CALCIFEROL First dose Br anch ) capsule on Fri 5004/05/22 Units at 1830, Until Discontinu ed, Routine lidocaine 2021-06- No .3mL 0.3 mL, Univ ers 1% (PF) 004-05 Infiltrati ity o f (XYLOCAINE) 14:00: 18:35 on, [place] injection 00 :00 DIALYSIS Medica l 0.3 mL ONCE - PT Branch ROOM, 1 dose, On Fri04/05/22 at 0900, Routine vancomycin 2021-06- No 15mg/kg 1,000 mg Univers (VANCOCIN) 004-05 (rounded ity of 1,000 mg in 09:15: 11:07 from 1,110 [place] NaCl 0.9% 00 :03 mg = 15 Medical (NS) 250 mL mg/kg ?74 [facility] VIAL-MATE kg), IV IV Piggyback, piggyback ONCE, 1 dose, On 04/05/22 at 0415, Administer over 60 Minutes, 250 mL
Reas on for Anti-Infec tive: Empiric Therapy for Suspected Infection< br>Empiric Therapy Site: Skin / Soft tissue
Duration of therapy: 5 days piperacilli 2021-06- No 3.375g 3.375 g, Univers n-tazobacta 04-05 IV ity of m (ZOSYN) 09:00: 10:10 Piggyback, [place] 3.375 g in 00 :12 ONCE, 1 Medica l NaCl 0.9% dose, On Branch (NS) 50 mL Fri MINI-BAG 04/05/22 at 0400, Administer over 30 Minutes, 50 mL
Reas on for Anti-Infec tive: Empiric Therapy for Suspected Infection< br>Empiric Therapy Site: Skin / Soft tissue
Duration of therapy: 5 days Sliding 2021-06 Yes Subcutaneo Univ ers Scale 0-21 us, TID ity of Insulin - 02:00: MEALS+HS, [place] Alberto as Lispro 00 First dose Medical (HumaLOG) + on [place] [facility] 04/04/22 Testing at 2100, Until Discontinu ed, Routine insulin 2021-06 Yes 15U 15 Units, Unive rs glargine 0-21 Subcutaneo ity o f (LANTUS 02:00: us, [facility], [place] U-100) 00 First dose Medical injection on [place] [facility] 15 Units 04/04/22 at 2100, Until Discontinu ed, Routine Sliding 2021-06 Yes Subcutaneo Univ ers Scale 0-21 us, TID ity of Insulin - 02:00: MEALS+HS, [place] as Lispro 00 First dose Medical (HumaLOG) + on [place] [facility] 04/04/22 Testing at 2100, Until Discontinu ed, Routine insulin 2021-06 Yes 15U 15 Units, Unive rs glargine 0-21 Subcutaneo ity o f (LANTUS 02:00: us, [facility], [place] U-100) 00 First dose Medical injection on [place] [facility] 15 Units 04/04/22 at 2100, Until Discontinu ed, Routine Sliding 2021-06 Yes Subcutaneo Univ ers Scale 0-21 us, TID ity of Insulin - 02:00: MEALS+HS, [place] as Lispro 00 First dose Medical (HumaLOG) + on [facility] Branch Fsbg 04/04/22 Testing at 2100, Until Discontinu ed, Routine insulin 2021-06 Yes 15U 15 Units, Unive rs glargine 0-21 Subcutaneo ity o f (LANTUS 02:00: us, [facility], [place] U-100) 00 First dose Medical injection on [facility] Branch 15 Units 04/04/22 at 2100, Until Discontinu ed, Routine Sliding 2021-06 Yes Subcutaneo [facility] ers Scale 0-21 us, TID ity of Insulin - 02:00: MEALS+HS, [place] as Lispro 00 First dose Medical (HumaLOG) + on [facility] Branch [facility] 04/04/22 Testing at 2100, Until Discontinu ed, Routine insulin 2021-06 Yes 15U 15 Units, Unive rs glargine 0-21 Subcutaneo ity o f (LANTUS 02:00: us, [facility], [place] U-100) 00 First dose Medical injection on [facility] Branch 15 Units 04/04/22 at 2100, Until Discontinu ed, Routine apixaban 2021-06 No 2.5mg 2.5 mg, Univ ers (ELIQUIS) 04-06 Oral, BID, ity of tablet 2.5 01:00: 06:23 First dose [place] mg 00 :22 on [facility] Medical 04/04/22 Branch at 2000, Until Discontinu ed, Routine
Indicatio ns: Non-Valvul ar Atrial Fibrillati on HYDROcodone 2021-06 Yes 1{tbl} 1 tablet, Univers -acetaminop 0-20 Oral, ity of hen (NORCO) 23:48: Q6HPRN, [place] as 10-325 mg 03 Starting Medica l tablet 1 on [facility] Branch tablet 04/04/22 at 1848, Until Discontinu ed, Routine, Pain (scale 7-10) HYDROcodone 2021-06 Yes 1{tbl} 1 tablet, Univers -acetaminop 0-20 Oral, ity of hen (NORCO) 23:48: Q6HPRN, [place] as 10-325 mg 03 Starting Medica l tablet 1 on [place] [facility] tablet 04/04/22 at 1848, Until Discontinu ed, Routine, Pain (scale 7-10) HYDROcodone 2021-06- No 1{tbl} 1 tablet, Univers -acetaminop 0-04-16 Oral, ity of hen (NORCO) 23:48: 20:48 Q6HPRN, [place] 10-325 mg 03 :20 Starting Medica l tablet 1 on [place] [facility] tablet 04/04/22 at 1848, Until 04/16/22 at 1548, Routine, Pain (scale 7-10) traMADoL 2021-06- No 50mg 50 mg, Univer s (ULTRAM) 0-04-06 Oral, ity of tablet 50 23:48: 23:47 Q8HPRN, [place] mg 00 :00 Starting Medical on [place] [facility] 04/04/22 at 1848, Until 04/06/22 at 1847, Routine, Pain (scale 4-6) acetaminoph 2021-06 Yes 650mg 650 mg, Un bruno en 0-20 Oral, ity of (TYLENOL) 23:47: Q6HPRN, [place] tablet 650 56 Starting Medic al mg on [facility] Branch 04/04/22 at 1847, Until Discontinu ed, Routine, Pain (scale 1-3) acetaminoph 2021-06 Yes 650mg 650 mg, Un bruno en 0-20 Oral, ity of (TYLENOL) 23:47: Q6HPRN, [place] tablet 650 56 Starting Medic al mg on [facility] Branch 04/04/22 at 1847, Until Discontinu ed, Routine, Pain (scale 1-3) acetaminoph 2021-06 Yes 650mg 650 mg, Un bruno en 0-20 Oral, ity of (TYLENOL) 23:47: Q6HPRN, [place] tablet 650 56 Starting Medic al mg on [facility] Branch 04/04/22 at 1847, Until Discontinu ed, Routine, Pain (scale 1-3) acetaminoph 2021-06 Yes 650mg 650 mg, Un bruno en 0-20 Oral, ity of (TYLENOL) 23:47: Q6HPRN, [place] tablet 650 56 [facility]22 at 1847, Until Discontinu ed, Routine, Pain (scale 1-3) glucagon 2021-06 Yes 1mg 1 mg, Univers (GLUCAGEN 0-20 Intramuscu ity of DIAGNOSTIC 23:44: lar, PRN, [place] KIT) 11 Starting Medical injection 1 on [facility] 04/04/22 at 1844, Until Discontinu ed, GASPER, Blood Glucose < or = 70 mg/dL and patient is unable to swallow or has mental changes. dextrose 50 2021-06 Yes 25mL 25 mL, Univ ers % in water 0-20 Slow IV ity of (D50W) 23:44: Push, PRN, [place] injection 11 Starting Medica l [address] [facility] 04/04/22 at 1844, Until Discontinu ed, GASPER, Blood Glucose < or = 70 mg/dL and patient is unable to swallow or has mental status changes. glucagon 2021-06 Yes 1mg 1 mg, Univers (GLUCAGEN 0-20 Intramuscu ity of DIAGNOSTIC 23:44: lar, PRN, [place] KIT) 11 Starting Medical injection 1 on [facility] 04/04/22 at 1844, Until Discontinu ed, GASPER, Blood Glucose < or = 70 mg/dL and patient is unable to swallow or has mental changes. dextrose 50 2021-06 Yes 25mL 25 mL, Univ ers % in water 0-20 Slow IV ity of (D50W) 23:44: Push, PRN, [place] injection 11 Starting Medica l [address] [facility] 04/04/22 at 1844, Until Discontinu ed, GASPER, Blood Glucose < or = 70 mg/dL and patient is unable to swallow or has mental status changes. glucagon 2021-06 Yes 1mg 1 mg, Univers (GLUCAGEN 0-20 Intramuscu ity of DIAGNOSTIC 23:44: lar, PRN, [place] KIT) 11 Starting Medical injection 1 on [facility] 04/04/22 at 1844, Until Discontinu ed, GASPER, Blood Glucose < or = 70 mg/dL and patient is unable to swallow or has mental changes. dextrose 50 2021-06 Yes 25mL 25 mL, Univ ers % in water 0-20 Slow IV ity of (D50W) 23:44: Push, PRN, [place] injection 11 Starting Medica l 25 mL on [place] [facility] 04/04/22 at 1844, Until Discontinu ed, GASPER, Blood Glucose < or = 70 mg/dL and patient is unable to swallow or has mental status changes. glucagon 2021-06 Yes 1mg 1 mg, Univers (GLUCAGEN 0-20 Intramuscu ity of DIAGNOSTIC 23:44: lar, PRN, [place] KIT) 11 Starting Medical injection 1 on [place] [facility] mg 04/04/22 at 1844, Until Discontinu ed, GASPER, Blood Glucose < or = 70 mg/dL and patient is unable to swallow or has mental changes. dextrose 50 2021-06 Yes 25mL 25 mL, Univ ers % in water 0-20 Slow IV ity of (D50W) 23:44: Push, PRN, [place] injection 11 Starting Medica l 25 mL on [place] [facility] 04/04/22 at 1844, Until Discontinu ed, GASPER, Blood Glucose < or = 70 mg/dL and patient is unable to swallow or has mental status changes. ampicillin- 2021-06- No 3g 3 g, IV Un bruno sulbactam 0-20 10-20 Piggyback, ity of (UNASYN) 3 20:00: 21:43 ONCE, 1 [place] Alberto as g in NaCl 00 :00 dose, On Medica l 0.9% (NS) [place] [facility] 100 mL 04/04/22 MINI-BAG at 1500, Administer over 30 Minutes, 100 mL
R marisol for Anti-Infec tive: Documented Infection< br>Documen rudolph Infection Site: Skin / Soft Tissue
Duration of Therapy: 7 days aspirin 81 2021-06 Yes 81mg Take 81 mg U nivers mg chewable 0-20 by mouth ity of tablet 17:22: daily. [place] 49 Medical Branch Cholecalcif 2021-06 Yes 1{tbl} Take 1 Un bruno julito, 0-20 tablet by ity of Vitamin D3, 17:22: mouth [place] 125 mcg 49 daily. Medical (5,000 Branch unit) tablet aspirin 81 2021-06 Yes 81mg Take 81 mg U nivers mg chewable 0-20 by mouth ity of tablet 17:22: daily. [address] Branch Cholecalcif 2021-06 Yes 1{tbl} Take 1 Un bruno julito, 0-20 tablet by ity of Vitamin D3, 17:22: mouth [place] 125 mcg 49 daily. Medical (5,000 Branch unit) tablet aspirin 81 2021-06 Yes 81mg Take 81 mg U nivers mg chewable 0-20 by mouth ity of tablet 17:22: daily. [address] Branch Cholecalcif 2021-06 Yes 1{tbl} Take 1 Un bruno julito, 0-20 tablet by ity of Vitamin D3, 17:22: mouth [place] 125 mcg 49 daily. Medical (5,000 Branch unit) tablet aspirin 81 2021-06 Yes 81mg Take 81 mg U nivers mg chewable 0-20 by mouth ity of tablet 17:22: daily. [address] Cholecalcif 2021-06 Yes 1{tbl} Take 1 Un bruno julito, 0-20 tablet by ity of Vitamin D3, 17:22: mouth [place] 125 mcg 49 daily. Medical (,000 Branch unit) tablet aspirin 81 2021-06 Yes 81mg Take 81 mg U nivers mg chewable 0-20 by mouth ity of tablet 17:22: daily. [address] Cholecalcif 2021-06 Yes 1{tbl} Take 1 Un bruno julito, 0-20 tablet by ity of Vitamin D3, 17:22: mouth [place] 125 mcg 49 daily. Medical (,000 Branch unit) tablet aspirin 81 2021-06 Yes 81mg Take 81 mg U nivers mg chewable 0-20 by mouth ity of tablet 17:22: daily. [address] Cholecalcif 2021-06 Yes 1{tbl} Take 1 Un bruno julito, 0-20 tablet by ity of Vitamin D3, 17:22: mouth [place] 125 mcg 49 daily. Medical (5,000 Branch unit) tablet HYDROcodone 2021-06 No 1{tbl} 1 tablet, Univers -acetaminop 0-14 03-29 Oral, ity of hen (NORCO) 22:30: 21:45 ONCE, 1 [place] 10-325 mg 00 :00 dose, On Medica l tablet 1 Fri Branch tablet 03/29/22 at 1730, Routine sulfamethox 2021-06 Yes [id number] 1{tbl} Take 1 Univers azole-trime 0-14 tablet by ity of thoprim 00:00: mouth [place] 400-80 mg 00 every 12 Medica l per tablet (twelve) Branc h hours. sulfamethox 2021-06 Yes [id number] 1{tbl} Take 1 Univers azole-trime 0-14 tablet by ity of thoprim 00:00: mouth [place] 400-80 mg 00 every 12 Medica l per tablet (twelve) Branc h hours. sulfamethox 2021-06 Yes [id number] 1{tbl} Take 1 Univers azole-trime 0-14 tablet by ity of thoprim 00:00: mouth [place] 400-80 mg 00 every 12 Medica l per tablet (twelve) Branc h hours. sulfamethox 2021-06 Yes [id number] 1{tbl} Take 1 Univers azole-trime 0-14 tablet by ity of thoprim 00:00: mouth [place] 400-80 mg 00 every 12 Medica l per tablet (twelve) Branc h hours. sulfamethox 2021-06 Yes [id number] 1{tbl} Take 1 Univers azole-trime 0-14 tablet by ity of thoprim 00:00: mouth [place] 400-80 mg 00 every 12 Medica l per tablet (twelve) Branc h hours. sulfamethox 2021-06 Yes [id number] 1{tbl} Take 1 Univers azole-trime 0-14 tablet by ity of thoprim 00:00: mouth [place] 400-80 mg 00 every 12 Medica l per tablet (twelve) Branc h hours. sulfamethox 2021-06 Yes [id number] 1{tbl} Take 1 Univers azole-trime 0-14 tablet by ity of thoprim 00:00: mouth [place] 400-80 mg 00 every 12 Medica l per tablet (twelve) Branc h hours. sulfamethox 2021-06 Yes [id number] 1{tbl} Take 1 Univers azole-trime 0-14 tablet by ity of thoprim 00:00: mouth [place] 400-80 mg 00 every 12 Medica l per tablet (twelve) Branc h hours. sulfamethox 2021-06 Yes [id number] 1{tbl} Take 1 Univers azole-trime 0-14 tablet by ity of thoprim 00:00: mouth [place] 400-80 mg 00 every 12 Medica l per tablet (twelve) Branc h hours. sulfamethox 2021-06 Yes [id number] 1{tbl} Take 1 Univers azole-trime 0-14 tablet by ity of thoprim 00:00: mouth [place] 400-80 mg 00 every 12 Medica l per tablet (twelve) Branc h hours. sulfamethox 2021-06 Yes [id number] 1{tbl} Take 1 Univers azole-trime 0-14 tablet by ity of thoprim 00:00: mouth [place] 400-80 mg 00 every 12 Medica l per tablet (twelve) Branc h hours. sulfamethox 2021-06 Yes [id number] 1{tbl} Take 1 Univers azole-trime 0-14 tablet by ity of thoprim 00:00: mouth [place] 400-80 mg 00 every 12 Medica l per tablet (twelve) Branc h hours. cephALEXin 2021-06- No [id number] 500mg Take 1 Univers (KEFLEX) 0-14 11-18 capsule by ity of 500 mg 00:00: 00:00 mouth in [place] capsule 00 :00 the [facility] morning Branch and 1 capsule at noon and 1 capsule in the evening. Do all this for 7 days. cephALEXin 2021-06- Yes [id number] 500mg Take 1 Univers (KEFLEX) 0-14 10-22 capsule by ity of 500 mg 00:00: 04:59 mouth in [place] capsule 00 :00 the [facility] morning Branch and 1 capsule at noon and 1 capsule in the evening. Do all this for 7 days. cephALEXin 2021-06 No [id number] 500mg Take 1 Univers (KEFLEX) 0-14 10-22 capsule by ity of 500 mg 00:00: 04:59 mouth in [place] capsule 00 :00 the [facility] morning Branch and 1 capsule at noon and 1 capsule in the evening. Do all this for 7 days. cephALEXin 2021-06- No [id number] 500mg Take 1 Univers (KEFLEX) 0-14 10-22 capsule by ity of 500 mg 00:00: 04:59 mouth in [place] capsule 00 :00 the Medical morning Branch and 1 capsule at noon and 1 capsule in the evening. Do all this for 7 days. cephALEXin 2021-06 [id number] 500mg Take 1 Univers (KEFLEX) 0-14 10-22 capsule by ity of 500 mg 00:00: 04:59 mouth in [place] capsule 00 :00 the Medical morning Branch and 1 capsule at noon and 1 capsule in the evening. Do all this for 7 days. aspirin 81 2021-06 Yes 81mg Take 81 mg U nivers mg chewable 0-11 by mouth ity of tablet 14:32: daily. Medical Branch Cholecalcif 2021-06 Yes 1{tbl} Take 1 Un bruno julito, 0-11 tablet by ity of Vitamin D3, 14:32: mouth [place] 125 mcg 05 daily. Medical (5,000 Branch unit) tablet aspirin 81 2021-06 Yes 81mg Take 81 mg U nivers mg chewable 0-11 by mouth ity of tablet 14:32: daily. Medical Branch Cholecalcif 2021-06 Yes 1{tbl} Take 1 Un bruno julito, 0-11 tablet by ity of Vitamin D3, 14:32: mouth [place] 125 mcg 05 daily. Medical (5,000 Branch unit) tablet aspirin 2021-06 Yes 81mg Take 81 mg U nivers mg chewable 0-11 by mouth ity of tablet 14:32: daily. Medical Branch Cholecalcif 2021-06 Yes 1{tbl} Take 1 Un bruno julito, 0-11 tablet by ity of Vitamin D3, 14:32: mouth [place] 125 mcg 05 daily. Medical (5,000 Branch unit) tablet aspirin 2021-06 Yes 81mg Take 81 mg U nivers mg chewable 0-11 by mouth ity of tablet 14:32: daily. Medical Branch Cholecalcif 2021-06 Yes 1{tbl} Take 1 Un bruno julito, 0-11 tablet by ity of Vitamin D3, 14:32: mouth [place] 125 mcg 05 daily. Medical (5,000 Branch unit) tablet aspirin 81 2021-06 Yes 81mg Take 81 mg U nivers mg chewable 0-11 by mouth ity of tablet 14:32: daily. Medical Branch Cholecalcif 2021-06 Yes 1{tbl} Take 1 Un bruno julito, 0-11 tablet by ity of Vitamin D3, 14:32: mouth [place] 125 mcg 05 daily. Medical (5,000 Branch unit) tablet aspirin 81 2021-06 Yes 81mg Take 81 mg U nivers mg chewable 0-11 by mouth ity of tablet 14:32: daily. Medical Branch Cholecalcif 2021-06 Yes 1{tbl} Take 1 Un bruno julito, 0-11 tablet by ity of Vitamin D3, 14:32: mouth [place] 125 mcg 05 daily. Medical (5,000 Branch unit) tablet aspirin 81 2021-06 Yes 81mg Take 81 mg U nivers mg chewable 0-11 by mouth ity of tablet 14:32: daily. Medical Branch Cholecalcif 2021-06 Yes 1{tbl} Take 1 Un bruno julito, 0-11 tablet by ity of Vitamin D3, 14:32: mouth [place] 125 mcg 05 daily. Medical (5,000 Branch unit) tablet aspirin 81 2021-06 Yes 81mg Take 81 mg U nivers mg chewable 0-11 by mouth ity of tablet 14:32: daily. Medical Branch Cholecalcif 2021-06 Yes 1{tbl} Take 1 Un bruno julito, 0-11 tablet by ity of Vitamin D3, 14:32: mouth [place] 125 mcg 05 daily. Medical (5,000 Branch unit) tablet aspirin 81 2021-06 Yes 81mg Take 81 mg U nivers mg chewable 0-11 by mouth ity of tablet 14:32: daily. Medical Branch Cholecalcif 2021-06 Yes 1{tbl} Take 1 Un bruno julito, 0-11 tablet by ity of Vitamin D3, 14:32: mouth [place] 125 mcg 05 daily. Medical (5,000 Branch unit) tablet doxycycline 2021-06- No [id number] 100mg Take 1 Univers hyclate 100 0-11 11-18 [id number] tablet by ity of mg tablet 00:00: 00:00 mouth in [place] 00 :00 the Medical morning Branch and 1 tablet in the evening. Do all this for 10 days. doxycycline 2021-06- Yes [id number] 100mg Take 1 Univers hyclate 100 0-11 10-22 [id number] tablet by ity of mg tablet 00:00: 04:59 mouth in [place] 00 :00 the Medical morning Branch and 1 tablet in the evening. Do all this for 10 days. doxycycline 2021-06- Yes [id number] 100mg Take 1 Univers hyclate 100 0-11 10- [id number] tablet by ity of mg tablet 00:00: 04:59 mouth in [place] 00 :00 the Medical morning Branch and 1 tablet in the evening. Do all this for 10 days. doxycycline 2021-06- Yes [id number] 100mg Take 1 Univers hyclate 100 0-11 10- [id number] tablet by ity of mg tablet 00:00: 04:59 mouth in [place] 00 :00 the Medical morning Branch and 1 tablet in the evening. Do all this for 10 days. doxycycline 2021-06- Yes [id number] 100mg Take 1 Univers hyclate 100 0-11 - [id number] tablet by ity of mg tablet 00:00: 04:59 mouth in [place] 00 :00 the Medical morning Branch and 1 tablet in the evening. Do all this for 10 days. doxycycline 2021-06- Yes [id number] 100mg Take 1 Univers hyclate 100 0-11 10- [id number] tablet by ity of mg tablet 00:00: 04:59 mouth in [place] 00 :00 the Medical morning Branch and 1 tablet in the evening. Do all this for 10 days. doxycycline 2021-06- Yes [id number] 100mg Take 1 Univers hyclate 100 0-11 10 [id number] tablet by ity of mg tablet 00:00: 04:59 mouth in [place] 00 :00 the Medical morning Branch and 1 tablet in the evening. Do all this for 10 days. doxycycline 2021-06- Yes [id number] 100mg Take 1 Univers hyclate 100 0-11 10- [id number] tablet by ity of mg tablet 00:00: 04:59 mouth in [place] 00 :00 the Medical morning Branch and 1 tablet in the evening. Do all this for 10 days. doxycycline 2021-06- Yes [id number] 100mg Take 1 Univers hyclate 100 0-11 10- [id number] tablet by ity of mg tablet 00:00: 04:59 mouth in [place] 00 :00 the Medical morning Branch and 1 tablet in the evening. Do all this for 10 days. doxycycline 2021-06- Yes [id number] 100mg Take 1 Univers hyclate 100 0-11 - [id number] tablet by ity of mg tablet 00:00: 04:59 mouth in [place] 00 :00 the Medical morning Branch and 1 tablet in the evening. Do all this for 10 days. doxycycline 2021-06- No [id number] 100mg Take 1 Univers hyclate 100 0-11 - [id number] tablet by ity of mg tablet 00:00: 04:59 mouth in [place] 00 :00 the Medical morning Branch and 1 tablet in the evening. Do all this for 10 days. doxycycline 2021-06- No [id number] 100mg Take 1 Univers hyclate 100 0-11 04-06 [id number] tablet by ity of mg tablet 00:00: 04:59 mouth in [place] 00 :00 the Medical morning Branch and 1 tablet in the evening. Do all this for 10 days. doxycycline 2021-06- No [id number] 100mg Take 1 Univers hyclate 100 0-11 04-06 [id number] tablet by ity of mg tablet 00:00: 04:59 mouth in [place] 00 :00 the Medical morning Branch and 1 tablet in the evening. Do all this for 10 days. GLIPIZIDE 5 Yes [id number] TAKE 1/2 Univers mg tablet 9-16 TABLET BY ity o f 00:00: MOUTH [place] 00 EVERY DAY Medical WITH Branch BREAKFAST GLIPIZIDE 5 Yes [id number] TAKE 1/2 Univers mg tablet 9-16 TABLET BY ity o f 00:00: MOUTH [place] 00 EVERY DAY Medical WITH Branch BREAKFAST GLIPIZIDE 5 Yes [id number] TAKE 1/2 [facility] mg tablet 9-16 TABLET BY ity o f 00:00: MOUTH [place] 00 EVERY DAY Medical WITH Branch BREAKFAST GLIPIZIDE 5 Yes [id number] TAKE 1/2 [facility] mg tablet 9-16 TABLET BY ity o f 00:00: MOUTH [place] 00 EVERY DAY Medical WITH Branch BREAKFAST GLIPIZIDE 5 Yes [id number] TAKE 1/2 [facility] mg tablet 9-16 TABLET BY ity o f 00:00: MOUTH [place] 00 EVERY DAY Medical WITH Branch BREAKFAST GLIPIZIDE 5 Yes [id number] TAKE 1/2 [facility] mg tablet 9-16 TABLET BY ity o f 00:00: MOUTH [place] 00 EVERY DAY Medical WITH Branch BREAKFAST GLIPIZIDE 5 0 Yes [id number] TAKE 1/2 [facility] mg tablet 9-16 TABLET BY ity o f 00:00: MOUTH [place] 00 EVERY DAY Medical WITH Branch BREAKFAST GLIPIZIDE 5 0 Yes [id number] TAKE 1/2 [facility] mg tablet 9-16 TABLET BY ity o f 00:00: MOUTH [place] 00 EVERY DAY Medical WITH Branch BREAKFAST GLIPIZIDE 5 Yes [id number] TAKE 1/2 [facility] mg tablet 9-16 TABLET BY ity o f 00:00: MOUTH [place] 00 EVERY DAY Medical WITH Branch BREAKFAST GLIPIZIDE 5 0 Yes [id number] TAKE 1/2 [facility] mg tablet 9-16 TABLET BY ity o f 00:00: MOUTH [place] 00 EVERY DAY Medical WITH Branch BREAKFAST GLIPIZIDE 5 Yes [id number] TAKE 1/2 [facility] mg tablet 9-16 TABLET BY ity o f 00:00: MOUTH [place] 00 EVERY DAY Medical WITH Branch BREAKFAST GLIPIZIDE 5 Yes [id number] TAKE 1/2 [facility] mg tablet 9-16 TABLET BY ity o f 00:00: MOUTH [place] 00 EVERY DAY Medical WITH Branch BREAKFAST GLIPIZIDE 5 0 Yes [id number] TAKE 1/2 [facility] mg tablet 9-16 TABLET BY ity o f 00:00: MOUTH [place] 00 EVERY DAY Medical WITH Branch BREAKFAST GLIPIZIDE 5 0 Yes [id number] TAKE 1/2 [facility] mg tablet 9-16 TABLET BY ity o f 00:00: MOUTH [place] 00 EVERY DAY Medical WITH Branch BREAKFAST GLIPIZIDE 5 0 Yes [id number] TAKE 1/2 [facility] mg tablet 9-16 TABLET BY ity o f 00:00: MOUTH [place] 00 EVERY DAY Medical WITH Branch BREAKFAST GLIPIZIDE 5 0 Yes [id number] TAKE 1/2 [facility] mg tablet 9-16 TABLET BY ity o f 00:00: MOUTH [place] 00 EVERY DAY Medical WITH Branch BREAKFAST GLIPIZIDE 5 Yes [id number] TAKE 1/2 [facility] mg tablet 9-16 TABLET BY ity o f 00:00: MOUTH [place] 00 EVERY DAY Medical WITH Branch BREAKFAST GLIPIZIDE 5 Yes [id number] TAKE 1/2 [facility] mg tablet 9-16 TABLET BY ity o f 00:00: MOUTH [place] 00 EVERY DAY Medical WITH Branch BREAKFAST GLIPIZIDE 5 2021-0 Yes [id number] TAKE 1/2 [facility] mg tablet 9-16 TABLET BY ity o f 00:00: MOUTH [place] 00 EVERY DAY Medical WITH Branch BREAKFAST GLIPIZIDE 5 Yes [id number] TAKE 1/2 [facility] mg tablet 9-16 TABLET BY ity o f 00:00: MOUTH [place] 00 EVERY DAY Medical WITH Branch BREAKFAST GLIPIZIDE 5 Yes [id number] TAKE 1/2 [facility] mg tablet 9-16 TABLET BY ity o f 00:00: MOUTH [place] 00 EVERY DAY Medical WITH Branch BREAKFAST aspirin 81 Yes 81mg Take 81 mg U nivers mg chewable 8-18 by mouth ity of tablet 15:01: daily. [place] [address] Medical Branch Cholecalcif Yes 1{tbl} Take 1 Un bruno julito, 8-18 tablet by ity of Vitamin D3, 15:01: mouth [place] 125 mcg 18 daily. Medical (5,000 Branch unit) tablet aspirin 81 0 Yes 81mg Take 81 mg U nivers mg chewable 8-18 by mouth ity of tablet 15:01: daily. [place] [address] Medical Branch Cholecalcif Yes 1{tbl} Take 1 Un bruno julito, 8-18 tablet by ity of Vitamin D3, 15:01: mouth [place] 125 mcg 18 daily. Medical (5,000 Branch unit) tablet aspirin 81 0 Yes 81mg Take 81 mg U nivers mg chewable 8-18 by mouth ity of tablet 15:01: daily. [place] [address] Medical Branch Cholecalcif Yes 1{tbl} Take 1 Un bruno julito, 8-18 tablet by ity of Vitamin D3, 15:01: mouth [place] 125 mcg 18 daily. Medical (5,000 Branch unit) tablet ONETOUCH Yes [id number] USE TO Uni vers DELICA PLUS 5-10 TEST TWICE it y of LANCET 30 00:00: DAILY [facility] [place] 00 (E11.9) Medica l Branch ONETOUCH Yes [id number] USE TO Uni vers DELICA PLUS 5-10 TEST TWICE it y of LANCET 30 00:00: DAILY [place] gauge Misc (E11.9) Medica l Branch ONETOUCH Yes [id number] USE TO Uni vers DELICA PLUS 5-10 TEST TWICE it y of LANCET 30 00:00: DAILY [place] gauge Misc (E11.9) Medica l Branch ONETOUCH Yes [id number] USE TO Uni vers DELICA PLUS 5-10 TEST TWICE it y of LANCET 30 00:00: DAILY [place] gauge Misc (E11.9) Medica l Branch ONETOUCH Yes [id number] USE TO Uni vers DELICA PLUS 5-10 TEST TWICE it y of LANCET 30 00:00: DAILY [place] gauge Misc (E11.9) Medica l Branch ONETOUCH Yes [id number] USE TO Uni vers DELICA PLUS 5-10 TEST TWICE it y of LANCET 30 00:00: DAILY [place] gauge Misc (E11.9) Medica l Branch ONETOUCH Yes [id number] USE TO Uni vers DELICA PLUS 5-10 TEST TWICE it y of LANCET 30 00:00: DAILY [place] gauge Misc (E11.9) Medica l Branch ONETOUCH Yes [id number] USE TO Uni vers DELICA PLUS 5-10 TEST TWICE it y of LANCET 30 00:00: DAILY [place] gauge Misc (E11.9) Medica l Branch ONETOUCH Yes [id number] USE TO Uni vers DELICA PLUS 5-10 TEST TWICE it y of LANCET 30 00:00: DAILY [place] gauge Misc (E11.9) Medica l Branch ONETOUCH Yes [id number] USE TO Uni vers DELICA PLUS 5-10 TEST TWICE it y of LANCET 30 00:00: DAILY [place] gauge Misc (E11.9) Medica l Branch ONETOUCH 0 Yes [id number] USE TO Uni vers DELICA PLUS 5-10 TEST TWICE it y of LANCET 30 00:00: DAILY [place] gauge Misc (E11.9) Medica l Branch ONETOUCH 0 Yes [id number] USE TO Uni vers DELICA PLUS 5-10 TEST TWICE it y of LANCET 30 00:00: DAILY [place] gauge Misc 00 (E11.9) Medica l Branch ONETOUCH 0 Yes [id number] USE TO Uni vers DELICA PLUS 5-10 TEST TWICE it y of LANCET 30 00:00: DAILY [place] gauge Misc (E11.9) Medica l Branch ONETOUCH 0 Yes [id number] USE TO Uni vers DELICA PLUS 5-10 TEST TWICE it y of LANCET 30 00:00: DAILY [place] gauge Misc (E11.9) Medica l Branch ONETOUCH 0 Yes [id number] USE TO Uni vers DELICA PLUS 5-10 TEST TWICE it y of LANCET 30 00:00: DAILY [place] gauge Misc (E11.9) Medica l Branch ONETOUCH 0 Yes [id number] USE TO Uni vers DELICA PLUS 5-10 TEST TWICE it y of LANCET 30 00:00: DAILY [place] gauge Misc (E11.9) Medica l Branch ONETOUCH 0 Yes [id number] USE TO Uni vers DELICA PLUS 5-10 TEST TWICE it y of LANCET 30 00:00: DAILY [place] gauge Misc (E11.9) Medica l Branch ONETOUCH 0 Yes [id number] USE TO Uni vers DELICA PLUS 5-10 TEST TWICE it y of LANCET 30 00:00: DAILY [place] gauge Misc (E11.9) Medica l Branch ONETOUCH 2021-0 Yes [id number] USE TO [facility] vers DELICA PLUS 5-10 TEST TWICE it y of LANCET 30 00:00: DAILY [place] gauge Misc (E11.9) Medica l Branch ONETOUCH 0 Yes [id number] USE TO Uni vers DELICA PLUS 5-10 TEST TWICE it y of LANCET 30 00:00: DAILY [place] gauge Misc (E11.9) Medica l Branch ONETOUCH 2021-0 Yes [id number] USE TO [facility] vers DELICA PLUS 5-10 TEST TWICE it y of LANCET 30 00:00: DAILY [place] gauge Misc (E11.9) Medica l Branch ONETOUCH 2021-0 Yes [id number] USE TO [facility] vers DELICA PLUS 5-10 TEST TWICE it y of LANCET 30 00:00: DAILY [place] gauge Misc 00 (E11.9) Medica l Branch ONETOUCH 2022-0 Yes [id number] USE TO Uni vers DELICA PLUS 5-10 TEST TWICE it y of LANCET 30 00:00: DAILY [facility] 00 (E11.9) Medica l Branch CLOPIDOGREL 2022-0 Yes [id number] TAKE 1 [facility] 75 mg 3-28 TABLET BY ity of tablet 00:00: [facility] EVERY DAY Medical Branch CLOPIDOGREL 2022-0 Yes [id number] TAKE 1 [facility] 75 mg 3-28 TABLET BY ity of tablet 00:00: [facility] 00 EVERY DAY Medical Branch CLOPIDOGREL 2022-0 Yes [id number] TAKE 1 [facility] 75 mg 3-28 TABLET BY ity of tablet 00:00: [facility] EVERY DAY Medical Branch CLOPIDOGREL 2022-0 Yes [id number] TAKE 1 [facility] 75 mg 3-28 TABLET BY ity of tablet 00:00: [facility] 00 EVERY DAY Medical Branch CLOPIDOGREL 2022-0 Yes [id number] TAKE 1 [facility] 75 mg 3-28 TABLET BY ity of tablet 00:00: [facility] EVERY DAY Medical Branch CLOPIDOGREL 2022-0 Yes [id number] TAKE 1 [facility] 75 mg 3-28 TABLET BY ity of tablet 00:00: [facility] 00 EVERY DAY Medical Branch CLOPIDOGREL 2022-0 Yes [id number] TAKE 1 [facility] 75 mg 3-28 TABLET BY ity of tablet 00:00: [facility] 00 EVERY DAY Medical Branch CLOPIDOGREL 2022-0 Yes [id number] TAKE 1 [facility] 75 mg 3-28 TABLET BY ity of tablet 00:00: [facility] 00 EVERY DAY Medical Branch CLOPIDOGREL 2022-0 Yes [id number] TAKE 1 [facility] 75 mg 3-28 TABLET BY ity of tablet 00:00: [facility] 00 EVERY DAY Medical Branch CLOPIDOGREL 2022-0 Yes [id number] TAKE 1 [facility] 75 mg 3-28 TABLET BY ity of tablet 00:00: [facility] EVERY DAY Medical Branch CLOPIDOGREL 2022-0 Yes [id number] TAKE 1 [facility] 75 mg 3-28 TABLET BY ity of tablet 00:00: [facility] 00 EVERY DAY Medical Branch CLOPIDOGREL 2022-0 Yes [id number] TAKE 1 [facility] 75 mg 3-28 TABLET BY ity of tablet 00:00: [facility] EVERY DAY Medical Branch CLOPIDOGREL 2022-0 Yes [id number] TAKE 1 [facility] 75 mg 3-28 TABLET BY ity of tablet 00:00: MOUTH [place] 00 EVERY DAY Medical Branch CLOPIDOGREL 2022-0 Yes [id number] TAKE 1 [facility] 75 mg 3-28 TABLET BY ity of tablet 00:00: MOUTH [place] 00 EVERY DAY Medical Branch CLOPIDOGREL 2022-0 Yes [id number] TAKE 1 [facility] 75 mg 3-28 TABLET BY ity of tablet 00:00: MOUTH [place] 00 EVERY DAY Medical Branch CLOPIDOGREL 2022-0 Yes [id number] TAKE 1 [facility] 75 mg 3-28 TABLET BY ity of tablet 00:00: MOUTH [place] 00 EVERY DAY Medical Branch CLOPIDOGREL 2022-0 Yes [id number] TAKE 1 [facility] 75 mg 3-28 TABLET BY ity of tablet 00:00: MOUTH [place] 00 EVERY DAY Medical Branch CLOPIDOGREL 2022-0 Yes [id number] TAKE 1 [facility] 75 mg 3-28 TABLET BY ity of tablet 00:00: MOUTH [place] 00 EVERY DAY Medical Branch CLOPIDOGREL 2022-0 Yes [id number] TAKE 1 [facility] 75 mg 3-28 TABLET BY ity of tablet 00:00: MOUTH [place] 00 EVERY DAY Medical Branch CLOPIDOGREL 2022-0 Yes [id number] TAKE 1 [facility] 75 mg 3-28 TABLET BY ity of tablet 00:00: MOUTH [place] 00 EVERY DAY Medical Branch CLOPIDOGREL 2022-0 Yes [id number] TAKE 1 [facility] 75 mg 3-28 TABLET BY ity of tablet 00:00: MOUTH [place] 00 EVERY DAY Medical Branch CLOPIDOGREL 2022-0 Yes [id number] TAKE 1 [facility] 75 mg 3-28 TABLET BY ity of tablet 00:00: MOUTH [place] 00 EVERY DAY Medical Branch CLOPIDOGREL 2022-0 Yes [id number] TAKE 1 [facility] 75 mg 3-28 TABLET BY ity of tablet 00:00: MOUTH [place] 00 EVERY DAY Medical Branch isosorbide 2022-0 Yes [id number] 30mg Take 1 [facility] mononitrate 3-24 tablet by ity of 30 mg 24 hr 00:00: mouth [place] tablet 00 daily. Medical Branch isosorbide 2022-0 Yes [id number] 30mg Take 1 [facility] mononitrate 3-24 tablet by ity of 30 mg 24 hr 00:00: mouth [place] tablet 00 daily. Medical Branch isosorbide 2022-0 Yes [id number] 30mg Take 1 [facility] mononitrate 3-24 tablet by ity of 30 mg 24 hr 00:00: mouth [place] tablet 00 daily. Medical Branch isosorbide 2022-0 Yes [id number] 30mg Take 1 [facility] mononitrate 3-24 tablet by ity of 30 mg 24 hr 00:00: mouth [place] tablet 00 daily. Medical Branch isosorbide 2021-0 Yes [id number] 30mg Take 1 [facility] mononitrate 3-24 tablet by ity of 30 mg 24 hr 00:00: mouth [place] tablet 00 daily. Medical Branch isosorbide 2021-0 Yes [id number] 30mg Take 1 [facility] mononitrate 3-24 tablet by ity of 30 mg 24 hr 00:00: mouth [place] tablet 00 daily. Medical Branch isosorbide 2021-0 Yes [id number] 30mg Take 1 [facility] mononitrate 3-24 tablet by ity of 30 mg 24 hr 00:00: mouth [place] tablet 00 daily. Medical Branch isosorbide 2021-0 Yes [id number] 30mg Take 1 [facility] mononitrate 3-24 tablet by ity of 30 mg 24 hr 00:00: mouth [place] tablet 00 daily. Medical Branch isosorbide 2021-0 Yes [id number] 30mg Take 1 [facility] mononitrate 3-24 tablet by ity of 30 mg 24 hr 00:00: mouth [place] tablet 00 daily. Medical Branch isosorbide 2021-0 Yes [id number] 30mg Take 1 [facility] mononitrate 3-24 tablet by ity of 30 mg 24 hr 00:00: mouth [place] tablet 00 daily. Medical Branch isosorbide 2021-0 Yes [id number] 30mg Take 1 [facility] mononitrate 3-24 tablet by ity of 30 mg 24 hr 00:00: mouth [place] tablet 00 daily. Medical Branch isosorbide 2021-0 Yes [id number] 30mg Take 1 [facility] mononitrate 3-24 tablet by ity of 30 mg 24 hr 00:00: mouth [place] tablet 00 daily. Medical Branch isosorbide 2021-0 Yes [id number] 30mg Take 1 [facility] mononitrate 3-24 tablet by ity of 30 mg 24 hr 00:00: mouth [place] tablet 00 daily. Medical Branch isosorbide 2021-0 Yes [id number] 30mg Take 1 [facility] mononitrate 3-24 tablet by ity of 30 mg 24 hr 00:00: mouth [place] tablet 00 daily. Medical Branch isosorbide 2021-0 Yes [id number] 30mg Take 1 [facility] mononitrate 3-24 tablet by ity of 30 mg 24 hr 00:00: mouth [place] tablet 00 daily. Medical Branch isosorbide 2021-0 Yes [id number] 30mg Take 1 [facility] mononitrate 3-24 tablet by ity of 30 mg 24 hr 00:00: mouth [place] tablet 00 daily. Medical Branch isosorbide 2021-0 Yes [id number] 30mg Take 1 [facility] mononitrate 3-24 tablet by ity of 30 mg 24 hr 00:00: mouth [place] tablet 00 daily. Medical Branch isosorbide 2021-0 Yes [id number] 30mg Take 1 [facility] mononitrate 3-24 tablet by ity of 30 mg 24 hr 00:00: mouth [place] tablet 00 daily. Medical Branch isosorbide 2021-0 Yes [id number] 30mg Take 1 [facility] mononitrate 3-24 tablet by ity of 30 mg 24 hr 00:00: mouth [place] tablet 00 daily. Medical Branch isosorbide 2021-0 Yes [id number] 30mg Take 1 [facility] mononitrate 3-24 tablet by ity of 30 mg 24 hr 00:00: mouth [place] tablet 00 daily. Medical Branch isosorbide 2021-0 Yes [id number] 30mg Take 1 [facility] mononitrate 3-24 tablet by ity of 30 mg 24 hr 00:00: mouth [place] tablet 00 daily. Medical Branch isosorbide 2021-0 Yes [id number] 30mg Take 1 [facility] mononitrate 3-24 tablet by ity of 30 mg 24 hr 00:00: mouth [place] tablet 00 daily. Medical Branch isosorbide 2021-0 Yes [id number] 30mg Take 1 [facility] mononitrate 3-24 tablet by ity of 30 mg 24 hr 00:00: mouth [place] tablet 00 daily. Medical Branch ELIQUIS 2.5 2020-06 Yes [id number] TAKE 1 [facility] mg tablet 2-29 TABLET BY ity o f 00:00: MOUTH 2 [place] 00 (TWO) Medical TIMES Branch DAILY. INDICATION S: AVF CLOTTING PREVENTION ELIQUIS 2.5 2020- Yes [id number] TAKE 1 [facility] mg tablet 2-29 TABLET BY ity o f 00:00: MOUTH 2 [place] 00 (TWO) Medical TIMES Branch DAILY. INDICATION S: AVF CLOTTING PREVENTION ELIQUIS 2.5 2020-06 Yes [id number] TAKE 1 [facility] mg tablet 2-29 TABLET BY ity o f 00:00: MOUTH (TWO) Medical TIMES Branch DAILY. INDICATION S: AVF CLOTTING PREVENTION ELIQUIS 2.5 2020-06 Yes [id number] TAKE 1 [facility] mg tablet 2-29 TABLET BY ity o f 00:00: MOUTH 2 (TWO) Medical TIMES Branch DAILY. INDICATION S: AVF CLOTTING PREVENTION ELIQUIS 2.5 2020-06 Yes [id number] TAKE 1 [facility] mg tablet 2-29 TABLET BY ity o f 00:00: MOUTH (TWO) Medical TIMES Branch DAILY. INDICATION S: AVF CLOTTING PREVENTION ELIQUIS 2.5 2020-06 Yes [id number] TAKE 1 [facility] mg tablet 2-29 TABLET BY ity o f 00:00: MOUTH (TWO) Medical TIMES Branch DAILY. INDICATION S: AVF CLOTTING PREVENTION ELIQUIS 2.5 2020-06 Yes [id number] TAKE 1 [facility] mg tablet 2-29 TABLET BY ity o f 00:00: MOUTH (TWO) Medical TIMES Branch DAILY. INDICATION S: AVF CLOTTING PREVENTION ELIQUIS 2.5 2020-06 Yes [id number] TAKE 1 [facility] mg tablet 2-29 TABLET BY ity o f 00:00: MOUTH (TWO) Medical TIMES Branch DAILY. INDICATION S: AVF CLOTTING PREVENTION ELIQUIS 2.5 2020-06 Yes [id number] TAKE 1 [facility] mg tablet 2-29 TABLET BY ity o f 00:00: MOUTH (TWO) Medical TIMES Branch DAILY. INDICATION S: AVF CLOTTING PREVENTION ELIQUIS 2.5 2020-06 Yes [id number] TAKE 1 [facility] mg tablet 2-29 TABLET BY ity o f 00:00: MOUTH 2 (TWO) Medical TIMES Branch DAILY. INDICATION S: AVF CLOTTING PREVENTION ELIQUIS 2.5 2020-06 Yes [id number] TAKE 1 [facility] mg tablet 2-29 TABLET BY ity o f 00:00: MOUTH 2 (TWO) Medical TIMES Branch DAILY. INDICATION S: AVF CLOTTING PREVENTION ELIQUIS 2.5 2020-06 Yes [id number] TAKE 1 [facility] mg tablet 2-29 TABLET BY ity o f 00:00: MOUTH 2 [place] 00 (TWO) Medical TIMES Branch DAILY. INDICATION S: AVF CLOTTING PREVENTION ELIQUIS 2.5 2020-06 Yes [id number] TAKE 1 [facility] mg tablet 2-29 TABLET BY ity o f 00:00: MOUTH (TWO) Medical TIMES Branch DAILY. INDICATION S: AVF CLOTTING PREVENTION ELIQUIS 2.5 2020-06 Yes [id number] TAKE 1 [facility] mg tablet 2-29 TABLET BY ity o f 00:00: MOUTH (TWO) Medical TIMES Branch DAILY. INDICATION S: AVF CLOTTING PREVENTION ELIQUIS 2.5 2020-06 Yes [id number] TAKE 1 [facility] mg tablet 2-29 TABLET BY ity o f 00:00: MOUTH (TWO) Medical TIMES Branch DAILY. INDICATION S: AVF CLOTTING PREVENTION ELIQUIS 2.5 2020-06 Yes [id number] TAKE 1 [facility] mg tablet 2-29 TABLET BY ity o f 00:00: MOUTH (TWO) Medical TIMES Branch DAILY. INDICATION S: AVF CLOTTING PREVENTION ELIQUIS 2.5 2020-06 Yes [id number] TAKE 1 [facility] mg tablet 2-29 TABLET BY ity o f 00:00: MOUTH (TWO) Medical TIMES Branch DAILY. INDICATION S: AVF CLOTTING PREVENTION ELIQUIS 2.5 2020-06 Yes [id number] TAKE 1 [facility] mg tablet 2-29 TABLET BY ity o f 00:00: MOUTH (TWO) Medical TIMES Branch DAILY. INDICATION S: AVF CLOTTING PREVENTION ELIQUIS 2.5 2020-06 Yes [id number] TAKE 1 [facility] mg tablet 2-29 TABLET BY ity o f 00:00: MOUTH (TWO) Medical TIMES Branch DAILY. INDICATION S: AVF CLOTTING PREVENTION ELIQUIS 2.5 2020-06 Yes [id number] TAKE 1 [facility] mg tablet 2-29 TABLET BY ity o f 00:00: MOUTH (TWO) Medical TIMES Branch DAILY. INDICATION S: AVF CLOTTING PREVENTION ELIQUIS 2.5 2020-06 Yes [id number] TAKE 1 [facility] mg tablet 2-29 TABLET BY ity o f 00:00: MOUTH 2 (TWO) Medical TIMES Branch DAILY. INDICATION S: AVF CLOTTING PREVENTION ELIQUIS 2.5 2020-06 Yes [id number] TAKE 1 [facility] mg tablet 2-29 TABLET BY ity o f 00:00: MOUTH 2 [place] 00 (TWO) Medical TIMES Branch DAILY. INDICATION S: AVF CLOTTING PREVENTION ELIQUIS 2.5 2020-06 Yes [id number] TAKE 1 [facility] mg tablet 2-29 TABLET BY ity o f 00:00: MOUTH 2 [place] 00 (TWO) Medical TIMES Branch DAILY. INDICATION S: AVF CLOTTING PREVENTION Insulin 2020-06 Yes [id number] 15U inject 15 U nivers Glargine 2-17 Units ity of (LANTUS 00:00: under the [place] [address] skin Medical U-100 daily. Branch INSULIN) 100 unit/mL (3 mL) injection felodipine 2020-06 Yes [id number] TAKE 1 U nivers 10 mg 24 hr 2-17 TABLET BY ity of tablet 00:00: MOUTH [place] 00 DAILY. Medical Branch glipiZIDE 5 2020-06 Yes [id number] TAKE 1/2 [facility] mg tablet 2-17 TABLET BY ity o f 00:00: MOUTH [place] 00 EVERY DAY Medical WITH Branch BREAKFAST lisinopriL 2020-06 Yes [id number] 2.5mg Take 1 [facility] 2.5 mg 2-17 tablet by ity of tablet 00:00: mouth [place] 00 daily. Medical Branch metoprolol 2020-06 Yes [id number] 25mg Take 1 U nivers succinate 2-17 tablet by ity o f XL 25 mg 24 00:00: mouth 2 [place] hr tablet 00 (two) Medical times Branch daily. blood sugar 2020-06 Yes [id number] USE TO [facility] diagnostic 2-17 TEST TWICE ity of (ONETOUCH 00:00: DAILY [place] ULTRA BLUE 00 E11.9 Medical TEST STRIP) Branch strip rosuvastati 2020-06 Yes [id number] 40mg Take 1 [facility] n 40 mg 2-17 tablet by ity of tablet 00:00: mouth [place] 00 daily. Medical Branch terazosin 2 2020-06 Yes [id number] TAKE 1 [facility] mg capsule 2-17 CAPSULE BY ity of 00:00: MOUTH [place] 00 EVERY DAY Medical IN THE Branch EVENING Insulin 2020-06 Yes [id number] 15U inject 15 U nivers Glargine 2-17 Units ity of (LANTUS 00:00: under the [facility] 00 skin Medical U-100 daily. Branch INSULIN) 100 unit/mL (3 mL) injection felodipine 2020-06 Yes [id number] TAKE 1 U nivers 10 mg 24 hr 2-17 TABLET BY ity of tablet 00:00: MOUTH [place] 00 DAILY. Medical Branch glipiZIDE 5 2020-06 Yes [id number] TAKE 1/2 [facility] mg tablet 2-17 TABLET BY ity o f 00:00: MOUTH [place] 00 EVERY DAY Medical WITH Branch BREAKFAST lisinopriL 2020-06 Yes [id number] 2.5mg Take 1 [facility] 2.5 mg 2-17 tablet by ity of tablet 00:00: mouth [place] 00 daily. Medical Branch metoprolol 2020-06 Yes [id number] 25mg Take 1 U nivers succinate 2-17 tablet by ity o f XL 25 mg 24 00:00: mouth 2 [place] as hr tablet 00 (two) Medical times [place] daily. blood sugar 2020-06 Yes [id number] USE TO [facility] diagnostic 2-17 TEST TWICE ity of (ONETOUCH 00:00: DAILY [place] ULTRA BLUE 00 E11.9 Medical TEST STRIP) Branch strip rosuvastati 2020-06 Yes [id number] 40mg Take 1 [facility] n 40 mg 2-17 tablet by ity of tablet 00:00: mouth [place] 00 daily. Medical Branch terazosin 2 2020-06 Yes [id number] TAKE 1 [facility] mg capsule 2-17 CAPSULE BY ity of 00:00: MOUTH [place] 00 EVERY DAY Medical IN THE Branch EVENING Insulin 2020-06 Yes [id number] 15U inject 15 U nivers Glargine 2-17 Units ity of (LANTUS 00:00: under the [place] [facility] 00 skin Medical U-100 daily. Branch INSULIN) 100 unit/mL (3 mL) injection felodipine 2020-06 Yes [id number] TAKE 1 U nivers 10 mg 24 hr 2-17 TABLET BY ity of tablet 00:00: MOUTH [place] 00 DAILY. Medical Branch lisinopriL 2020-06 Yes [id number] 2.5mg Take 1 [facility] 2.5 mg 2-17 tablet by ity of tablet 00:00: mouth [place] 00 daily. Medical Branch metoprolol 2020-06 Yes [id number] 25mg Take 1 U nivers succinate 2-17 tablet by ity o f XL 25 mg 24 00:00: mouth 2 [place] as hr tablet 00 (two) Medical times [place] daily. blood sugar 2020-06 Yes [id number] USE TO [facility] diagnostic 2-17 TEST TWICE ity of (ONETOUCH 00:00: DAILY [place] ULTRA BLUE 00 E11.9 Medical TEST STRIP) Branch strip rosuvastati 2020-06 Yes [id number] 40mg Take 1 [facility] n 40 mg 2-17 tablet by ity of tablet 00:00: mouth [place] 00 daily. Medical Branch terazosin 2 2020-06 Yes [id number] TAKE 1 [facility] mg capsule 2-17 CAPSULE BY ity of 00:00: MOUTH [place] 00 EVERY DAY Medical IN THE Branch EVENING Insulin 2020-06 Yes [id number] 15U inject 15 U nivers Glargine 2-17 Units ity of (LANTUS 00:00: under the [place] [facility] 00 skin Medical U-100 daily. Branch INSULIN) 100 unit/mL (3 mL) injection felodipine 2020-06 Yes [id number] TAKE 1 U nivers 10 mg 24 hr 2-17 TABLET BY ity of tablet 00:00: MOUTH [place] 00 DAILY. Medical Branch lisinopriL 2020-06 Yes [id number] 2.5mg Take 1 [facility] 2.5 mg 2-17 tablet by ity of tablet 00:00: mouth [place] 00 daily. Medical Branch metoprolol 2020-06 Yes [id number] 25mg Take 1 U nivers succinate 2-17 tablet by ity o f XL 25 mg 24 00:00: mouth 2 [place] as hr tablet 00 (two) Medical times [place] daily. blood sugar 2020-06 Yes [id number] USE TO [facility] diagnostic 2-17 TEST TWICE ity of (ONETOUCH 00:00: DAILY [place] ULTRA BLUE 00 E11.9 Medical TEST STRIP) Branch strip rosuvastati 2020-06 Yes [id number] 40mg Take 1 [facility] n 40 mg 2-17 tablet by ity of tablet 00:00: mouth [place] 00 daily. Medical Branch terazosin 2 2020-06 Yes [id number] TAKE 1 [facility] mg capsule 2-17 CAPSULE BY ity of 00:00: MOUTH [place] 00 EVERY DAY Medical IN THE Branch EVENING Insulin 2020-06 Yes [id number] 15U inject 15 U nivers Glargine 2-17 Units ity of (LANTUS 00:00: under the [place] [facility] 00 skin Medical U-100 daily. Branch INSULIN) 100 unit/mL (3 mL) injection felodipine 2020-06 Yes [id number] TAKE 1 U nivers 10 mg 24 hr 2-17 TABLET BY ity of tablet 00:00: MOUTH [place] 00 DAILY. Medical Branch lisinopriL 2020-06 Yes [id number] 2.5mg Take 1 [facility] 2.5 mg 2-17 tablet by ity of tablet 00:00: mouth [place] 00 daily. Medical Branch metoprolol 2020-06 Yes [id number] 25mg Take 1 U nivers succinate 2-17 tablet by ity o f XL 25 mg 24 00:00: mouth 2 [place] as hr tablet 00 (two) Medical times [place] daily. blood sugar 2020-06 Yes [id number] USE TO [facility] diagnostic 2-17 TEST TWICE ity of (ONETOUCH 00:00: DAILY [place] ULTRA BLUE 00 E11.9 Medical TEST STRIP) Branch strip rosuvastati 2020-06 Yes [id number] 40mg Take 1 [facility] n 40 mg 2-17 tablet by ity of tablet 00:00: mouth [place] 00 daily. Medical Branch terazosin 2 2020-06 Yes [id number] TAKE 1 [facility] mg capsule 2-17 CAPSULE BY ity of 00:00: MOUTH [place] 00 EVERY DAY Medical IN THE Branch EVENING Insulin 2020-06 Yes [id number] 15U inject 15 U nivers Glargine 2-17 Units ity of (LANTUS 00:00: under the [place] [facility] 00 skin Medical U-100 daily. [place] INSULIN) 100 unit/mL (3 mL) injection felodipine 2020-06 Yes [id number] TAKE 1 U nivers 10 mg 24 hr 2-17 TABLET BY ity of tablet 00:00: MOUTH [place] 00 DAILY. Medical Branch lisinopriL 2020-06 Yes [id number] 2.5mg Take 1 [facility] 2.5 mg 2-17 tablet by ity of tablet 00:00: mouth [place] 00 daily. Medical Branch metoprolol 2020-06 Yes [id number] 25mg Take 1 U nivers succinate 2-17 tablet by ity o f XL 25 mg 24 00:00: mouth 2 [place] as hr tablet 00 (two) Medical [facility] daily. blood sugar 2020-06 Yes [id number] USE TO [facility] diagnostic 2-17 TEST TWICE ity of (ONETOUCH 00:00: DAILY [place] ULTRA BLUE 00 E11.9 Medical TEST STRIP) Branch strip rosuvastati 2020-06 Yes [id number] 40mg Take 1 [facility] n 40 mg 2-17 tablet by ity of tablet 00:00: mouth [place] 00 daily. Medical Branch terazosin 2 2020-06 Yes [id number] TAKE 1 [facility] mg capsule 2-17 CAPSULE BY ity of 00:00: MOUTH [place] 00 EVERY DAY Medical IN THE Branch EVENING Insulin 2020-06 Yes [id number] 15U inject 15 U nivers Glargine 2-17 Units ity of (LANTUS 00:00: under the [facility] 00 skin Medical U-100 daily. [place] INSULIN) 100 unit/mL (3 mL) injection felodipine 2020-06 Yes [id number] TAKE 1 U nivers 10 mg 24 hr 2-17 TABLET BY ity of tablet 00:00: MOUTH [place] 00 DAILY. Medical Branch lisinopriL 2020-06 Yes [id number] 2.5mg Take 1 [facility] 2.5 mg 2-17 tablet by ity of tablet 00:00: mouth [place] 00 daily. Medical Branch metoprolol 2020-06 Yes [id number] 25mg Take 1 U nivers succinate 2-17 tablet by ity o f XL 25 mg 24 00:00: mouth 2 [place] as hr tablet 00 (two) Medical times [place] daily. blood sugar 2020-06 Yes [id number] USE TO [facility] diagnostic 2-17 TEST TWICE ity of (ONETOUCH 00:00: DAILY [place] ULTRA BLUE 00 E11.9 Medical TEST STRIP) Branch strip rosuvastati 2020-06 Yes [id number] 40mg Take 1 [facility] n 40 mg 2-17 tablet by ity of tablet 00:00: mouth [place] 00 daily. Medical Branch terazosin 2 2020-06 Yes [id number] TAKE 1 [facility] mg capsule 2-17 CAPSULE BY ity of 00:00: MOUTH [place] 00 EVERY DAY Medical IN THE Branch EVENING Insulin 2020-06 Yes [id number] 15U inject 15 U nivers Glargine 2-17 Units ity of (LANTUS 00:00: under the [facility] 00 skin Medical U-100 daily. [place] INSULIN) 100 unit/mL (3 mL) injection felodipine 2020-06 Yes [id number] TAKE 1 U nivers 10 mg 24 hr 2-17 TABLET BY ity of tablet 00:00: MOUTH [place] 00 DAILY. Medical Branch lisinopriL 2020-06 Yes [id number] 2.5mg Take 1 [facility] 2.5 mg 2-17 tablet by ity of tablet 00:00: mouth [place] 00 daily. Medical Branch metoprolol 2020-06 Yes [id number] 25mg Take 1 U nivers succinate 2-17 tablet by ity o f XL 25 mg 24 00:00: mouth 2 [place] as hr tablet 00 (two) Medical times [place] daily. blood sugar 2020-06 Yes [id number] USE TO [facility] diagnostic 2-17 TEST TWICE ity of (ONETOUCH 00:00: DAILY [place] ULTRA BLUE 00 E11.9 Medical TEST STRIP) Branch strip rosuvastati 2020-06 Yes [id number] 40mg Take 1 [facility] n 40 mg 2-17 tablet by ity of tablet 00:00: mouth [place] 00 daily. Medical Branch terazosin 2 2020-06 Yes [id number] TAKE 1 [facility] mg capsule 2-17 CAPSULE BY ity of 00:00: MOUTH [place] 00 EVERY DAY Medical IN THE Branch EVENING Insulin 2020-06 Yes [id number] 15U inject 15 U nivers Glargine 2-17 Units ity of (LANTUS 00:00: under the [place] [facility] 00 skin Medical U-100 daily. Branch INSULIN) 100 unit/mL (3 mL) injection felodipine 2020-06 Yes [id number] TAKE 1 U nivers 10 mg 24 hr 2-17 TABLET BY ity of tablet 00:00: MOUTH [place] 00 DAILY. Medical Branch lisinopriL 2020-06 Yes [id number] 2.5mg Take 1 [facility] 2.5 mg 2-17 tablet by ity of tablet 00:00: mouth [place] 00 daily. Medical Branch metoprolol 2020-06 Yes [id number] 25mg Take 1 U nivers succinate 2-17 tablet by ity o f XL 25 mg 24 00:00: mouth 2 [place] as hr tablet 00 (two) Medical times [place] daily. blood sugar 2020-06 Yes [id number] USE TO [facility] diagnostic 2-17 TEST TWICE ity of (ONETOUCH 00:00: DAILY [place] ULTRA BLUE 00 E11.9 Medical TEST STRIP) Branch strip rosuvastati 2020-06 Yes [id number] 40mg Take 1 [facility] n 40 mg 2-17 tablet by ity of tablet 00:00: mouth [place] 00 daily. Medical Branch terazosin 2 2020-06 Yes [id number] TAKE 1 [facility] mg capsule 2-17 CAPSULE BY ity of 00:00: MOUTH [place] 00 EVERY DAY Medical IN THE [place] EVENING Insulin 2020-06 Yes [id number] 15U inject 15 U nivers Glargine 2-17 Units ity of (LANTUS 00:00: under the [place] [address] skin Medical U-100 daily. [place] INSULIN) 100 unit/mL (3 mL) injection felodipine 2020-06 Yes [id number] TAKE 1 U nivers 10 mg 24 hr 2-17 TABLET BY ity of tablet 00:00: MOUTH [place] 00 DAILY. Medical Branch lisinopriL 2020-06 Yes [id number] 2.5mg Take 1 [facility] 2.5 mg 2-17 tablet by ity of tablet 00:00: mouth [place] 00 daily. Medical Branch metoprolol 2020-06 Yes [id number] 25mg Take 1 U nivers succinate 2-17 tablet by ity o f XL 25 mg 24 00:00: mouth 2 [place] as hr tablet 00 (two) Medical times [place] daily. blood sugar 2020-06 Yes [id number] USE TO [facility] diagnostic 2-17 TEST TWICE ity of (ONETOUCH 00:00: DAILY [place] ULTRA BLUE 00 E11.9 Medical TEST STRIP) Branch strip rosuvastati 2020-06 Yes [id number] 40mg Take 1 [facility] n 40 mg 2-17 tablet by ity of tablet 00:00: mouth [place] 00 daily. Medical Branch terazosin 2 2020-06 Yes [id number] TAKE 1 [facility] mg capsule 2-17 CAPSULE BY ity of 00:00: MOUTH [place] 00 EVERY DAY Medical IN THE [place] EVENING Insulin 2020-06 Yes [id number] 15U inject 15 U nivers Glargine 2-17 Units ity of (LANTUS 00:00: under the [place] [address] skin Medical U-100 daily. [place] INSULIN) 100 unit/mL (3 mL) injection felodipine 2020-06 Yes [id number] TAKE 1 U nivers 10 mg 24 hr 2-17 TABLET BY ity of tablet 00:00: MOUTH [place] 00 DAILY. Medical Branch lisinopriL 2020-06 Yes [id number] 2.5mg Take 1 [facility] 2.5 mg 2-17 tablet by ity of tablet 00:00: mouth [place] 00 daily. Medical Branch metoprolol 2020-06 Yes [id number] 25mg Take 1 U nivers succinate 2-17 tablet by ity o f XL 25 mg 24 00:00: mouth 2 [place] as hr tablet 00 (two) Medical times [place] daily. blood sugar 2020-06 Yes [id number] USE TO [facility] diagnostic 2-17 TEST TWICE ity of (ONETOUCH 00:00: DAILY [place] ULTRA BLUE 00 E11.9 Medical TEST STRIP) Branch strip rosuvastati 2020-06 Yes [id number] 40mg Take 1 [facility] n 40 mg 2-17 tablet by ity of tablet 00:00: mouth [place] 00 daily. Medical Branch terazosin 2 2020-06 Yes [id number] TAKE 1 [facility] mg capsule 2-17 CAPSULE BY ity of 00:00: MOUTH [place] 00 EVERY DAY Medical IN THE Branch EVENING Insulin 2020-06 Yes [id number] 15U inject 15 U nivers Glargine 2-17 Units ity of (LANTUS 00:00: under the [facility] 00 skin Medical U-100 daily. Branch INSULIN) 100 unit/mL (3 mL) injection felodipine 2020-06 Yes [id number] TAKE 1 U nivers 10 mg 24 hr 2-17 TABLET BY ity of tablet 00:00: MOUTH [place] 00 DAILY. Medical Branch lisinopriL 2020-06 Yes [id number] 2.5mg Take 1 [facility] 2.5 mg 2-17 tablet by ity of tablet 00:00: mouth [place] 00 daily. Medical Branch metoprolol 2020-06 Yes [id number] 25mg Take 1 U nivers succinate 2-17 tablet by ity o f XL 25 mg 24 00:00: mouth 2 [place] as hr tablet 00 (two) Medical [facility] daily. blood sugar 2020-06 Yes [id number] USE TO [facility] diagnostic 2-17 TEST TWICE ity of (ONETOUCH 00:00: DAILY [place] ULTRA BLUE 00 E11.9 Medical TEST STRIP) Branch strip rosuvastati 2020-06 Yes [id number] 40mg Take 1 [facility] n 40 mg 2-17 tablet by ity of tablet 00:00: mouth [place] 00 daily. Medical Branch terazosin 2 2020-06 Yes [id number] TAKE 1 [facility] mg capsule 2-17 CAPSULE BY ity of 00:00: MOUTH [place] 00 EVERY DAY Medical IN THE Branch EVENING Insulin 2020-06 Yes [id number] 15U inject 15 U nivers Glargine 2-17 Units ity of (LANTUS 00:00: under the [place] [facility] 00 skin Medical U-100 daily. [place] INSULIN) 100 unit/mL (3 mL) injection felodipine 2020-06 Yes [id number] TAKE 1 U nivers 10 mg 24 hr 2-17 TABLET BY ity of tablet 00:00: MOUTH [place] 00 DAILY. Medical Branch lisinopriL 2020-06 Yes [id number] 2.5mg Take 1 [facility] 2.5 mg 2-17 tablet by ity of tablet 00:00: mouth [place] 00 daily. Medical Branch metoprolol 2020-06 Yes [id number] 25mg Take 1 U nivers succinate 2-17 tablet by ity o f XL 25 mg 24 00:00: mouth 2 [place] as hr tablet 00 (two) Medical times [place] daily. blood sugar 2020-06 Yes [id number] USE TO [facility] diagnostic 2-17 TEST TWICE ity of (ONETOUCH 00:00: DAILY [place] ULTRA BLUE 00 E11.9 Medical TEST STRIP) Branch strip rosuvastati 2020-06 Yes [id number] 40mg Take 1 [facility] n 40 mg 2-17 tablet by ity of tablet 00:00: mouth [place] 00 daily. Medical Branch terazosin 2 2020-06 Yes [id number] TAKE 1 [facility] mg capsule 2-17 CAPSULE BY ity of 00:00: MOUTH [place] 00 EVERY DAY Medical IN THE Branch EVENING Insulin 2020-06 Yes [id number] 15U inject 15 U nivers Glargine 2-17 Units ity of (LANTUS 00:00: under the [place] [address] skin Medical U-100 daily. [place] INSULIN) 100 unit/mL (3 mL) injection felodipine 2020-06 Yes [id number] TAKE 1 U nivers 10 mg 24 hr 2-17 TABLET BY ity of tablet 00:00: MOUTH [place] 00 DAILY. Medical Branch lisinopriL 2020-06 Yes [id number] 2.5mg Take 1 [facility] 2.5 mg 2-17 tablet by ity of tablet 00:00: mouth [place] 00 daily. Medical Branch metoprolol 2020-06 Yes [id number] 25mg Take 1 U nivers succinate 2-17 tablet by ity o f XL 25 mg 24 00:00: mouth 2 [place] as hr tablet 00 (two) Medical times [place] daily. blood sugar 2020-06 Yes [id number] USE TO [facility] diagnostic 2-17 TEST TWICE ity of (ONETOUCH 00:00: DAILY [place] ULTRA BLUE 00 E11.9 Medical TEST STRIP) Branch strip rosuvastati 2020-06 Yes [id number] 40mg Take 1 [facility] n 40 mg 2-17 tablet by ity of tablet 00:00: mouth [place] 00 daily. Medical Branch terazosin 2 2020-06 Yes [id number] TAKE 1 [facility] mg capsule 2-17 CAPSULE BY ity of 00:00: MOUTH [place] 00 EVERY DAY Medical IN THE Branch EVENING Insulin 2020-06 Yes [id number] 15U inject 15 U nivers Glargine 2-17 Units ity of (LANTUS 00:00: under the [place] [address] skin Medical U-100 daily. [place] INSULIN) 100 unit/mL (3 mL) injection felodipine 2020-06 Yes [id number] TAKE 1 U nivers 10 mg 24 hr 2-17 TABLET BY ity of tablet 00:00: MOUTH [place] 00 DAILY. Medical Branch lisinopriL 2020-06 Yes [id number] 2.5mg Take 1 [facility] 2.5 mg 2-17 tablet by ity of tablet 00:00: mouth [place] 00 daily. Medical Branch metoprolol 2020-06 Yes [id number] 25mg Take 1 U nivers succinate 2-17 tablet by ity o f XL 25 mg 24 00:00: mouth 2 [place] as hr tablet 00 (two) Medical times Branch daily. blood sugar 2020-06 Yes [id number] USE TO [facility] diagnostic 2-17 TEST TWICE ity of (ONETOUCH 00:00: DAILY [place] ULTRA BLUE 00 E11.9 Medical TEST STRIP) Branch strip rosuvastati 2020-06 Yes [id number] 40mg Take 1 [facility] n 40 mg 2-17 tablet by ity of tablet 00:00: mouth [place] 00 daily. Medical Branch terazosin 2 2020-06 Yes [id number] TAKE 1 [facility] mg capsule 2-17 CAPSULE BY ity of 00:00: MOUTH [place] 00 EVERY DAY Medical IN THE Branch EVENING Insulin 2020-06 Yes [id number] 15U inject 15 U nivers Glargine 2-17 Units ity of (LANTUS 00:00: under the [facility] 00 skin Medical U-100 daily. [place] INSULIN) 100 unit/mL (3 mL) injection felodipine 2020-06 Yes [id number] TAKE 1 U nivers 10 mg 24 hr 2-17 TABLET BY ity of tablet 00:00: MOUTH [place] 00 DAILY. Medical Branch lisinopriL 2020-06 Yes [id number] 2.5mg Take 1 [facility] 2.5 mg 2-17 tablet by ity of tablet 00:00: mouth [place] 00 daily. Medical Branch metoprolol 2020-06 Yes [id number] 25mg Take 1 U nivers succinate 2-17 tablet by ity o f XL 25 mg 24 00:00: mouth 2 [place] as hr tablet 00 (two) Medical times [place] daily. blood sugar 2020-06 Yes [id number] USE TO [facility] diagnostic 2-17 TEST TWICE ity of (ONETOUCH 00:00: DAILY [place] ULTRA BLUE 00 E11.9 Medical TEST STRIP) Branch strip rosuvastati 2020-06 Yes [id number] 40mg Take 1 [facility] n 40 mg 2-17 tablet by ity of tablet 00:00: mouth [place] 00 daily. Medical Branch terazosin 2 2020-06 Yes [id number] TAKE 1 [facility] mg capsule 2-17 CAPSULE BY ity of 00:00: MOUTH [place] 00 EVERY DAY Medical IN THE Branch EVENING Insulin 2020-06 Yes [id number] 15U inject 15 U nivers Glargine 2-17 Units ity of (LANTUS 00:00: under the [place] [facility] 00 skin Medical U-100 daily. Branch INSULIN) 100 unit/mL (3 mL) injection felodipine 2020-06 Yes [id number] TAKE 1 U nivers 10 mg 24 hr 2-17 TABLET BY ity of tablet 00:00: MOUTH [place] 00 DAILY. Medical Branch lisinopriL 2020-06 Yes [id number] 2.5mg Take 1 [facility] 2.5 mg 2-17 tablet by ity of tablet 00:00: mouth [place] 00 daily. Medical Branch metoprolol 2020-06 Yes [id number] 25mg Take 1 U nivers succinate 2-17 tablet by ity o f XL 25 mg 24 00:00: mouth 2 [place] as hr tablet 00 (two) Medical [facility] daily. blood sugar 2020-06 Yes [id number] USE TO [facility] diagnostic 2-17 TEST TWICE ity of (ONETOUCH 00:00: DAILY [place] ULTRA BLUE 00 E11.9 Medical TEST STRIP) Branch strip rosuvastati 2020-06 Yes [id number] 40mg Take 1 [facility] n 40 mg 2-17 tablet by ity of tablet 00:00: mouth [place] 00 daily. Medical Branch terazosin 2 2020-06 Yes [id number] TAKE 1 [facility] mg capsule 2-17 CAPSULE BY ity of 00:00: MOUTH [place] 00 EVERY DAY Medical IN THE Branch EVENING Insulin 2020-06 Yes [id number] 15U inject 15 U nivers Glargine 2-17 Units ity of (LANTUS 00:00: under the [facility] 00 skin Medical U-100 daily. Branch INSULIN) 100 unit/mL (3 mL) injection felodipine 2020-06 Yes [id number] TAKE 1 U nivers 10 mg 24 hr 2-17 TABLET BY ity of tablet 00:00: MOUTH [place] 00 DAILY. Medical Branch lisinopriL 2020-06 Yes [id number] 2.5mg Take 1 [facility] 2.5 mg 2-17 tablet by ity of tablet 00:00: mouth [place] 00 daily. Medical Branch metoprolol 2020-06 Yes [id number] 25mg Take 1 U nivers succinate 2-17 tablet by ity o f XL 25 mg 24 00:00: mouth 2 [place] as hr tablet 00 (two) Medical times [place] daily. blood sugar 2020-06 Yes [id number] USE TO [facility] diagnostic 2-17 TEST TWICE ity of (ONETOUCH 00:00: DAILY [place] ULTRA BLUE 00 E11.9 Medical TEST STRIP) Branch strip rosuvastati 2020-06 Yes [id number] 40mg Take 1 [facility] n 40 mg 2-17 tablet by ity of tablet 00:00: mouth [place] 00 daily. Medical Branch terazosin 2 2020-06 Yes [id number] TAKE 1 [facility] mg capsule 2-17 CAPSULE BY ity of 00:00: MOUTH [place] 00 EVERY DAY Medical IN THE Branch EVENING Insulin 2020-06 Yes [id number] 15U inject 15 U nivers Glargine 2-17 Units ity of (LANTUS 00:00: under the [facility] 00 skin Medical U-100 daily. [place] INSULIN) 100 unit/mL (3 mL) injection felodipine 2020-06 Yes [id number] TAKE 1 U nivers 10 mg 24 hr 2-17 TABLET BY ity of tablet 00:00: MOUTH [place] 00 DAILY. Medical Branch lisinopriL 2020-06 Yes [id number] 2.5mg Take 1 [facility] 2.5 mg 2-17 tablet by ity of tablet 00:00: mouth [place] 00 daily. Medical Branch metoprolol 2020-06 Yes [id number] 25mg Take 1 U nivers succinate 2-17 tablet by ity o f XL 25 mg 24 00:00: mouth 2 [place] as hr tablet 00 (two) Medical [facility] daily. blood sugar 2020-06 Yes [id number] USE TO [facility] diagnostic 2-17 TEST TWICE ity of (ONETOUCH 00:00: DAILY [place] ULTRA BLUE 00 E11.9 Medical TEST STRIP) Branch strip rosuvastati 2020-06 Yes [id number] 40mg Take 1 [facility] n 40 mg 2-17 tablet by ity of tablet 00:00: mouth [place] 00 daily. Medical Branch terazosin 2 2020-06 Yes [id number] TAKE 1 [facility] mg capsule 2-17 CAPSULE BY ity of 00:00: MOUTH [place] 00 EVERY DAY Medical IN THE Branch EVENING Insulin 2020-06 Yes [id number] 15U inject 15 U nivers Glargine 2-17 Units ity of (LANTUS 00:00: under the [place] [facility] 00 skin Medical U-100 daily. [place] INSULIN) 100 unit/mL (3 mL) injection felodipine 2020-06 Yes [id number] TAKE 1 U nivers 10 mg 24 hr 2-17 TABLET BY ity of tablet 00:00: MOUTH [place] 00 DAILY. Medical Branch lisinopriL 2020-06 Yes [id number] 2.5mg Take 1 [facility] 2.5 mg 2-17 tablet by ity of tablet 00:00: mouth [place] 00 daily. Medical Branch metoprolol 2020-06 Yes [id number] 25mg Take 1 U nivers succinate 2-17 tablet by ity o f XL 25 mg 24 00:00: mouth 2 [place] as hr tablet 00 (two) Medical [facility] daily. blood sugar 2020-06 Yes [id number] USE TO [facility] diagnostic 2-17 TEST TWICE ity of (ONETOUCH 00:00: DAILY [place] ULTRA BLUE 00 E11.9 Medical TEST STRIP) Branch strip rosuvastati 2020-06 Yes [id number] 40mg Take 1 [facility] n 40 mg 2-17 tablet by ity of tablet 00:00: mouth [place] 00 daily. Medical Branch terazosin 2 2020-06 Yes [id number] TAKE 1 [facility] mg capsule 2-17 CAPSULE BY ity of 00:00: MOUTH [place] 00 EVERY DAY Medical IN THE Branch EVENING Insulin 2020-06 Yes [id number] 15U inject 15 U nivers Glargine 2-17 Units ity of (LANTUS 00:00: under the [place] [address] skin Medical U-100 daily. Branch INSULIN) 100 unit/mL (3 mL) injection felodipine 2020-06 Yes [id number] TAKE 1 U nivers 10 mg 24 hr 2-17 TABLET BY ity of tablet 00:00: MOUTH [place] 00 DAILY. Medical Branch lisinopriL 2020-06 Yes [id number] 2.5mg Take 1 [facility] 2.5 mg 2-17 tablet by ity of tablet 00:00: mouth [place] 00 daily. Medical Branch metoprolol 2020-06 Yes [id number] 25mg Take 1 U nivers succinate 2-17 tablet by ity o f XL 25 mg 24 00:00: mouth 2 [place] as hr tablet 00 (two) Medical [facility] daily. blood sugar 2020-06 Yes [id number] USE TO [facility] diagnostic 2-17 TEST TWICE ity of (ONETOUCH 00:00: DAILY [place] ULTRA BLUE 00 E11.9 Medical TEST STRIP) Branch strip rosuvastati 2020-06 Yes [id number] 40mg Take 1 [facility] n 40 mg 2-17 tablet by ity of tablet 00:00: mouth [place] 00 daily. Medical Branch terazosin 2 2020-06 Yes [id number] TAKE 1 [facility] mg capsule 2-17 CAPSULE BY ity of 00:00: MOUTH [place] 00 EVERY DAY Medical IN THE Branch EVENING Insulin 2020-06 Yes [id number] 15U inject 15 U nivers Glargine 2-17 Units ity of (LANTUS 00:00: under the [place] [address] skin Medical U-100 daily. Branch INSULIN) 100 unit/mL (3 mL) injection felodipine 2020-06 Yes [id number] TAKE 1 U nivers 10 mg 24 hr 2-17 TABLET BY ity of tablet 00:00: MOUTH [place] 00 DAILY. Medical Branch lisinopriL 2020-06 Yes [id number] 2.5mg Take 1 [facility] 2.5 mg 2-17 tablet by ity of tablet 00:00: mouth [place] 00 daily. Medical Branch metoprolol 2020-06 Yes [id number] 25mg Take 1 U nivers succinate 2-17 tablet by ity o f XL 25 mg 24 00:00: mouth 2 [place] as hr tablet 00 (two) Medical times [place] daily. blood sugar 2020-06 Yes [id number] USE TO [facility] diagnostic 2-17 TEST TWICE ity of (ONETOUCH 00:00: DAILY [place] ULTRA BLUE 00 E11.9 Medical TEST STRIP) Branch strip rosuvastati 2020-06 Yes [id number] 40mg Take 1 [facility] n 40 mg 2-17 tablet by ity of tablet 00:00: mouth [place] 00 daily. Medical Branch terazosin 2 2020-06 Yes [id number] TAKE 1 [facility] mg capsule 2-17 CAPSULE BY ity of 00:00: MOUTH [place] 00 EVERY DAY Medical IN THE Branch EVENING Insulin 2020-06 Yes [id number] 15U inject 15 U nivers Glargine 2-17 Units ity of (LANTUS 00:00: under the [place] [facility] 00 skin Medical U-100 daily. Branch INSULIN) 100 unit/mL (3 mL) injection felodipine 2020-06 Yes [id number] TAKE 1 U nivers 10 mg 24 hr 2-17 TABLET BY ity of tablet 00:00: MOUTH [place] 00 DAILY. Medical Branch lisinopriL 2020-06 Yes [id number] 2.5mg Take 1 [facility] 2.5 mg 2-17 tablet by ity of tablet 00:00: mouth [place] 00 daily. Medical Branch metoprolol 2020-06 Yes [id number] 25mg Take 1 U nivers succinate 2-17 tablet by ity o f XL 25 mg 24 00:00: mouth 2 [place] as hr tablet 00 (two) Medical times [place] daily. blood sugar 2020-06 Yes [id number] USE TO [facility] diagnostic 2-17 TEST TWICE ity of (ONETOUCH 00:00: DAILY [place] ULTRA BLUE 00 E11.9 Medical TEST STRIP) Branch strip rosuvastati 2020-06 Yes [id number] 40mg Take 1 [facility] n 40 mg 2-17 tablet by ity of tablet 00:00: mouth [place] 00 daily. Medical Branch terazosin 2 2020-06 Yes [id number] TAKE 1 [facility] mg capsule 2-17 CAPSULE BY ity of 00:00: MOUTH [place] 00 EVERY DAY Medical IN THE Branch EVENING glipiZIDE 5 2020-06- No [id number] TAKE 1/2 [facility] mg tablet 2-17 09-16 TABLET BY ity of 00:00: 00:00 MOUTH [place] 00 :00 EVERY DAY Medical WITH Branch BREAKFAST nitroglycer 2021-[id number] 1 [facility] in 0.4 mg 9-21 tablet ity of sublingual 00:00: under the [place] tablet 00 tongue Medical every 5 Branch (five) minutes as needed for Chest pain. nitroglycer 2021-[id number] 1 [facility] in 0.4 mg 9-21 tablet ity of sublingual 00:00: under the [place] tablet 00 tongue Medical every 5 Branch (five) minutes as needed for Chest pain. nitroglycer 1-[id number] 1 [facility] in 0.4 mg 9-21 tablet ity of sublingual 00:00: under the [place] tablet 00 tongue Medical every 5 Branch (five) minutes as needed for Chest pain. nitroglycer 1-[id number] 1 [facility] in 0.4 mg 9-21 tablet ity of sublingual 00:00: under the [place] tablet 00 tongue Medical every 5 Branch (five) minutes as needed for Chest pain. nitroglycer 2020-[id number] 1 [facility] in 0.4 mg 9-21 tablet ity of sublingual 00:00: under the [place] tablet 00 tongue Medical every 5 Branch (five) minutes as needed for Chest pain. nitroglycer 1-[id number] 1 [facility] in 0.4 mg 9-21 tablet ity of sublingual 00:00: under the [place] tablet 00 tongue Medical every 5 Branch (five) minutes as needed for Chest pain. nitroglycer 1-[id number] 1 [facility] in 0.4 mg 9-21 tablet ity of sublingual 00:00: under the [place] tablet 00 tongue Medical every 5 Branch (five) minutes as needed for Chest pain. nitroglycer 2021-[id number] 1 [facility] in 0.4 mg 9-21 tablet ity of sublingual 00:00: under the [place] tablet 00 tongue Medical every 5 Branch (five) minutes as needed for Chest pain. nitroglycer 2021-[id number] 1 [facility] in 0.4 mg 9-21 tablet ity of sublingual 00:00: under the [place] tablet 00 tongue Medical every 5 Branch (five) minutes as needed for Chest pain. nitroglycer 2021-[id number] 1 [facility] in 0.4 mg 9-21 tablet ity of sublingual 00:00: under the [place] tablet 00 tongue Medical every 5 Branch (five) minutes as needed for Chest pain. nitroglycer 2021-[id number] 1 [facility] in 0.4 mg 9-21 tablet ity of sublingual 00:00: under the [place] tablet 00 tongue Medical every 5 Branch (five) minutes as needed for Chest pain. nitroglycer 2021-[id number] 1 [facility] in 0.4 mg 9-21 tablet ity of sublingual 00:00: under the [place] tablet 00 tongue Medical every 5 Branch (five) minutes as needed for Chest pain. nitroglycer 2021-[id number] 1 [facility] in 0.4 mg 9-21 tablet ity of sublingual 00:00: under the [place] tablet 00 tongue Medical every 5 Branch (five) minutes as needed for Chest pain. nitroglycer 1-[id number] 1 [facility] in 0.4 mg 9-21 tablet ity of sublingual 00:00: under the [place] tablet 00 tongue Medical every 5 Branch (five) minutes as needed for Chest pain. nitroglycer 2021-[id number] 1 [facility] in 0.4 mg 9-21 tablet ity of sublingual 00:00: under the [place] tablet 00 tongue Medical every 5 Branch (five) minutes as needed for Chest pain. nitroglycer 2021-[id number] 1 [facility] in 0.4 mg 9-21 tablet ity of sublingual 00:00: under the [place] tablet 00 tongue Medical every 5 Branch (five) minutes as needed for Chest pain. nitroglycer 2021-[id number] 1 [facility] in 0.4 mg 9-21 tablet ity of sublingual 00:00: under the [place] tablet 00 tongue Medical every 5 Branch (five) minutes as needed for Chest pain. nitroglycer 2021-[id number] 1 [facility] in 0.4 mg 9-21 tablet ity of sublingual 00:00: under the [place] tablet 00 tongue Medical every 5 Branch (five) minutes as needed for Chest pain. nitroglycer 2021-[id number] 1 [facility] in 0.4 mg 9-21 tablet ity of sublingual 00:00: under the [place] tablet 00 tongue Medical every 5 Branch (five) minutes as needed for Chest pain. nitroglycer 2021-[id number] 1 [facility] in 0.4 mg 9-21 tablet ity of sublingual 00:00: under the [place] tablet 00 tongue Medical every 5 Branch (five) minutes as needed for Chest pain. nitroglycer 2021-[id number] 1 [facility] in 0.4 mg 9-21 tablet ity of sublingual 00:00: under the [place] tablet 00 tongue Medical every 5 Branch (five) minutes as needed for Chest pain. nitroglycer 2021-[id number] 1 [facility] in 0.4 mg 9-21 tablet ity of sublingual 00:00: under the [place] tablet 00 tongue Medical every 5 Branch (five) minutes as needed for Chest pain. nitroglycer 2021-[id number] 1 [facility] in 0.4 mg 9-21 tablet ity of sublingual 00:00: under the [place] tablet 00 tongue Medical every 5 Branch (five) minutes as needed for Chest pain. calcium 2021-0 Yes [id number] 667mg Take 1 [facility] vers acetate,kana 6-25 capsule by it y of sphat bind, 00:00: mouth 3 [place] as 667 mg 00 (three) Medical capsule times Branch daily with meals. calcium 2021-0 Yes [id number] 667mg Take 1 [facility] vers acetate,kana 6-25 capsule by it y of sphat bind, 00:00: mouth 3 [place] as 667 mg 00 (three) Medical capsule times Branch daily with meals. calcium 2021-0 Yes [id number] 667mg Take 1 [facility] vers acetate,kana 6-25 capsule by it y of sphat bind, 00:00: mouth 3 [place] as 667 mg 00 (three) Medical capsule times Branch daily with meals. calcium 2021-0 Yes [id number] 667mg Take 1 [facility] vers acetate,kana 6-25 capsule by it y of sphat bind, 00:00: mouth 3 Luis Alberto as 667 mg 00 (three) Medical capsule times Branch daily with meals. calcium 2021-0 Yes [id number] 667mg Take 1 [facility] acetate,kana 6-25 capsule by it y of sphat bind, 00:00: mouth 3 [facility] as 667 mg 00 (three) Medical capsule times Branch daily with meals. calcium 2020-0 Yes [id number] 667mg Take 1 [facility] vers acetate,kana 6-25 capsule by it y of sphat bind, 00:00: mouth 3 [facility] as 667 mg 00 (three) Medical capsule times Branch daily with meals. calcium 2020-0 Yes [id number] 667mg Take 1 [facility] vers acetate,kana 6-25 capsule by it y of sphat bind, 00:00: mouth 3 [facility] as 667 mg 00 (three) Medical capsule times Branch daily with meals. calcium 2020-0 Yes [id number] 667mg Take 1 [facility] vers acetate,kana 6-25 capsule by it y of sphat bind, 00:00: mouth 3 [facility] as 667 mg 00 (three) Medical capsule times Branch daily with meals. calcium 2020-0 Yes [id number] 667mg Take 1 [facility] vers acetate,kana 6-25 capsule by it y of sphat bind, 00:00: mouth 3 [facility] as 667 mg 00 (three) Medical capsule times Branch daily with meals. calcium 2020-0 Yes [id number] 667mg Take 1 [facility] vers acetate,kana 6-25 capsule by it y of sphat bind, 00:00: mouth 3 [facility] as 667 mg 00 (three) Medical capsule times Branch daily with meals. calcium 2020-0 Yes [id number] 667mg Take 1 [facility] vers acetate,kana 6-25 capsule by it y of sphat bind, 00:00: mouth 3 [facility] as 667 mg 00 (three) Medical capsule times Branch daily with meals. calcium 2020-0 Yes [id number] 667mg Take 1 [facility] vers acetate,kana 6-25 capsule by it y of sphat bind, 00:00: mouth 3 [facility] as 667 mg 00 (three) Medical capsule times Branch daily with meals. calcium 2020-0 Yes [id number] 667mg Take 1 [facility] vers acetate,kana 6-25 capsule by it y of sphat bind, 00:00: mouth 3 [facility] as 667 mg 00 (three) Medical capsule times Branch daily with meals. calcium 2020-0 Yes [id number] 667mg Take 1 [facility] vers acetate,kana 6-25 capsule by it y of sphat bind, 00:00: mouth 3 [facility] as 667 mg 00 (three) Medical capsule times Branch daily with meals. calcium 2020-0 Yes [id number] 667mg Take 1 [facility] vers acetate,kana 6-25 capsule by it y of sphat bind, 00:00: mouth 3 [facility] as 667 mg 00 (three) Medical capsule times Branch daily with meals. calcium 2020-0 Yes [id number] 667mg Take 1 [facility] vers acetate,kana 6-25 capsule by it y of sphat bind, 00:00: mouth 3 [facility] as 667 mg 00 (three) Medical capsule times Branch daily with meals. calcium 2020-0 Yes [id number] 667mg Take 1 [facility] vers acetate,kana 6-25 capsule by it y of sphat bind, 00:00: mouth 3 [facility] as 667 mg 00 (three) Medical capsule times Branch daily with meals. calcium 2020-0 Yes [id number] 667mg Take 1 [facility] vers acetate,kana 6-25 capsule by it y of sphat bind, 00:00: mouth 3 [facility] as 667 mg 00 (three) Medical capsule times Branch daily with meals. calcium 2020-0 Yes [id number] 667mg Take 1 [facility] vers acetate,kana 6-25 capsule by it y of sphat bind, 00:00: mouth 3 [facility] as 667 mg 00 (three) Medical capsule times Branch daily with meals. calcium 2020-0 Yes [id number] 667mg Take 1 [facility] vers acetate,kana 6-25 capsule by it y of sphat bind, 00:00: mouth 3 [facility] as 667 mg 00 (three) Medical capsule times Branch daily with meals. calcium 2020-0 Yes [id number] 667mg Take 1 [facility] vers acetate,kana 6-25 capsule by it y of sphat bind, 00:00: mouth 3 [facility] as 667 mg 00 (three) Medical capsule times Branch daily with meals. calcium 2020-0 Yes [id number] 667mg Take 1 [facility] vers acetate,kana 6-25 capsule by it y of sphat bind, 00:00: mouth 3 [facility] as 667 mg 00 (three) Medical capsule times Branch daily with meals. calcium 2020-0 Yes [id number] 667mg Take 1 [facility] vers acetate,kana 6-25 capsule by it y of sphat bind, 00:00: mouth 3 [facility] as 667 mg 00 (three) Medical capsule times Branch daily with meals. ciclopirox 2021-0 Yes [id number] Apply to [facility] ([facility]) 8 6-15 area(s) at ity of % solution 00:00: bedtime. [facility] as 00 Apply to Medical fungal Branch toenails once daily; Every 7 days file toenails with nail filer and apply rubbing alcohol. ciclopirox 2021-0 Yes [id number] Apply to [facility] ([facility]) 8 6-15 area(s) at ity of % solution 00:00: bedtime. [facility] as 00 Apply to Medical fungal Branch toenails once daily; Every 7 days file toenails with nail filer and apply rubbing alcohol. ciclopirox 2021-0 Yes [id number] Apply to [facility] ([facility]) 8 6-15 area(s) at ity of % solution 00:00: bedtime. [facility] as 00 Apply to Medical fungal Branch toenails once daily; Every 7 days file toenails with nail filer and apply rubbing alcohol. ciclopirox 2021-0 Yes [id number] Apply to [facility] ([facility]) 8 6-15 area(s) at ity of % solution 00:00: bedtime. [facility] as 00 Apply to Medical fungal Branch toenails once daily; Every 7 days file toenails with nail filer and apply rubbing alcohol. ciclopirox 2021-0 Yes [id number] [facility]-15 area(s) at ity of % solution 00:00: bedtime. [facility] as 00 Apply to Medical fungal Branch toenails once daily; Every 7 days file toenails with nail filer and apply rubbing alcohol. ciclopirox 2021-0 Yes [id number] [facility] 6-15 area(s) at ity of % solution 00:00: bedtime. [facility] as 00 Apply to Medical fungal Branch toenails once daily; Every 7 days file toenails with nail filer and apply rubbing alcohol. ciclopirox 2021-0 Yes [id number] [facility] 6-15 area(s) at ity of % solution 00:00: bedtime. [facility] as 00 Apply to Medical fungal Branch toenails once daily; Every 7 days file toenails with nail filer and apply rubbing alcohol. ciclopirox 2021-0 Yes [id number] Apply to [facility] ([facility]) 8 6-15 area(s) at ity of % solution 00:00: bedtime. [facility] as 00 Apply to Medical fungal Branch toenails once daily; Every 7 days file toenails with nail filer and apply rubbing alcohol. ciclopirox 2021-0 Yes [id number] Apply to [facility] ([facility]) 8 6-15 area(s) at ity of % solution 00:00: bedtime. [facility] as 00 Apply to Medical fungal Branch toenails once daily; Every 7 days file toenails with nail filer and apply rubbing alcohol. ciclopirox 2021-0 Yes [id number] Apply to [facility] ([facility]) 8 6-15 area(s) at ity of % solution 00:00: bedtime. [facility]to as 00 Apply to Medical fungal Branch toenails once daily; Every 7 days file toenails with nail filer and apply rubbing alcohol. ciclopirox 2021-0 Yes [id number] Apply to [facility] ([facility]) 8 6-15 area(s) at ity of % solution 00:00: bedtime. [facility]to as 00 Apply to Medical fungal Branch toenails once daily; Every 7 days file toenails with nail filer and apply rubbing alcohol. ciclopirox 2021-0 Yes [id number] Apply to [facility] ([facility]) 8 6-15 area(s) at ity of % solution 00:00: bedtime. [facility] Alberto as 00 Apply to Medical fungal Branch toenails once daily; Every 7 days file toenails with nail filer and apply rubbing alcohol. ciclopirox 2021-0 Yes [id number] Apply to [facility] ([facility]) 8 6-15 area(s) at ity of % solution 00:00: bedtime. Luis Alberto as 00 Apply to Medical fungal Branch toenails once daily; Every 7 days file toenails with nail filer and apply rubbing alcohol. ciclopirox 2021-0 Yes [id number] Apply to [facility] ([facility]) 8 6-15 area(s) at ity of % solution 00:00: bedtime. Luis Alberto as 00 Apply to Medical fungal Branch toenails once daily; Every 7 days file toenails with nail filer and apply rubbing alcohol. ciclopirox 2021-0 Yes [id number] Apply to [facility] ([facility]) 8 6-15 area(s) at ity of % solution 00:00: bedtime. Luis Alberto as 00 Apply to Medical fungal Branch toenails once daily; Every 7 days file toenails with nail filer and apply rubbing alcohol. ciclopirox 2021-0 Yes [id number] Apply to [facility] ([facility]) 8 6-15 area(s) at ity of % solution 00:00: bedtime. Luis Alberto as 00 Apply to Medical fungal Branch toenails once daily; Every 7 days file toenails with nail filer and apply rubbing alcohol. ciclopirox 2021-0 Yes [id number] Apply to [facility] ([facility]) 8 6-15 area(s) at ity of % solution 00:00: bedtime. Luis Alberto as 00 Apply to Medical fungal Branch toenails once daily; Every 7 days file toenails with nail filer and apply rubbing alcohol. ciclopirox 2021-0 Yes [id number] Apply to [facility] ([facility]) 8 6-15 area(s) at ity of % solution 00:00: bedtime. Luis Alberto as 00 Apply to Medical fungal Branch toenails once daily; Every 7 days file toenails with nail filer and apply rubbing alcohol. ciclopirox 2021-0 Yes [id number] Apply to [facility] ([facility]) 8 6-15 area(s) at ity of % solution 00:00: bedtime. Luis Alberto as 00 Apply to Medical fungal Branch toenails once daily; Every 7 days file toenails with nail filer and apply rubbing alcohol. ciclopirox 2021-0 Yes [id number] Apply to [facility] ([facility]) 8 6-15 area(s) at ity of % solution 00:00: bedtime. Luis Alberto as 00 Apply to Medical fungal Branch toenails once daily; Every 7 days file toenails with nail filer and apply rubbing alcohol. ciclopirox 2021-0 Yes [id number] Apply to [facility] ([facility]) 8 6-15 area(s) at ity of % solution 00:00: bedtime. Luis Alberto as 00 Apply to Medical fungal Branch toenails once daily; Every 7 days file toenails with nail filer and apply rubbing alcohol. ciclopirox Yes [id number] [facility] 8 6-15 area(s) at ity of % solution 00:00: bedtime. Luis Alberto as 00 Apply to Medical fungal Branch toenails once daily; Every 7 days file toenails with nail filer and apply rubbing alcohol. ciclopirox Yes [id number] Apply to [facility] ([facility]) 8 6-15 area(s) at ity of % solution 00:00: bedtime. Luis Alberto as 00 Apply to Medical fungal Branch toenails once daily; Every 7 days file toenails with nail filer and apply rubbing alcohol. Insulin Yes [id number] USE [facility] [place], 5-03 DIRECTED ity of Disposable, 00:00: TO INJECT [place] (NOVOFINE 00 [facility] 32) 32 ONCE DAILY Branch gauge x ICD-10 1/4" Ndle CODE E11.22 Insulin Yes [id number] USE [facility] [place], 5-03 DIRECTED ity of Disposable, 00:00: TO INJECT [place] (NOVOFINE 00 [facility] 32) 32 ONCE DAILY Branch gauge x ICD-10 1/4" Ndle CODE E11.22 Insulin Yes [id number] USE [facility] [place], 5-03 DIRECTED ity of Disposable, 00:00: TO INJECT [place] (NOVOFINE 00 [facility] 32) 32 ONCE DAILY Branch gauge x ICD-10 1/4" Ndle CODE E11.22 Insulin Yes [id number] USE [facility] [place], 5-03 DIRECTED ity of Disposable, 00:00: TO INJECT [place] (NOVOFINE 00 [facility] 32) 32 ONCE DAILY Branch gauge x ICD-10 1/4" Ndle CODE E11.22 Insulin Yes [id number] USE [facility] [place], 5-03 DIRECTED ity of Disposable, 00:00: TO INJECT [place] (NOVOFINE 00 [facility] 32) 32 ONCE DAILY Branch gauge x ICD-10 1/4" Ndle CODE E11.22 Insulin Yes [id number] USE [facility] [place], 5- DIRECTED ity of Disposable, 00:00: TO INJECT [place] (NOVOFINE 00 [facility] 32) 32 ONCE DAILY Branch gauge x ICD-10 1/4" Ndle CODE E11.22 Insulin Yes [id number] USE [facility] [place], 5- DIRECTED ity of Disposable, 00:00: TO INJECT [place] (NOVOFINE 00 [facility] 32) 32 ONCE DAILY Branch gauge x ICD-10 1/4" Ndle CODE E11.22 Insulin Yes [id number] USE [facility] [place], 5- DIRECTED ity of Disposable, 00:00: TO INJECT [place] (NOVOFINE 00 [facility] 32) 32 ONCE DAILY Branch gauge x ICD-10 1/4" Ndle CODE E11.22 Insulin Yes [id number] USE [facility] [place], 5- DIRECTED ity of Disposable, 00:00: TO INJECT [place] (NOVOFINE 00 [facility] 32) 32 ONCE DAILY Branch gauge x ICD-10 1/4" Ndle CODE E11.22 Insulin Yes [id number] USE [facility] [place], 5- DIRECTED ity of Disposable, 00:00: TO INJECT [place] (NOVOFINE 00 [facility] 32) 32 ONCE DAILY Branch gauge x ICD-10 1/4" Ndle CODE E11.22 Insulin Yes [id number] USE [facility] [place], 5- DIRECTED ity of Disposable, 00:00: TO INJECT [place] (NOVOFINE 00 [facility] 32) 32 ONCE DAILY Branch gauge x ICD-10 1/4" Ndle CODE E11.22 Insulin 0 Yes [id number] USE [facility] [place], 5- DIRECTED ity of Disposable, 00:00: TO INJECT [place] (NOVOFINE 00 [facility] 32) 32 ONCE DAILY Branch gauge x ICD-10 1/4" Ndle CODE E11.22 Insulin 0 Yes [id number] USE [facility] [place], 5- DIRECTED ity of Disposable, 00:00: TO INJECT [place] (NOVOFINE 00 [facility] 32) 32 ONCE DAILY Branch gauge x ICD-10 1/4" Ndle CODE E11.22 Insulin Yes [id number] USE [facility] [place], 5- DIRECTED ity of Disposable, 00:00: TO INJECT [place] (NOVOFINE 00 [facility] 32) 32 ONCE DAILY Branch gauge x ICD-10 1/4" Ndle CODE E11.22 Insulin Yes [id number] USE [facility] [place], 5- DIRECTED ity of Disposable, 00:00: TO INJECT [place] (NOVOFINE 00 [facility] 32) 32 ONCE DAILY Branch gauge x ICD-10 1/4" Ndle CODE E11.22 Insulin Yes [id number] USE [facility] [place], 5- DIRECTED ity of Disposable, 00:00: TO INJECT [place] (NOVOFINE 00 [facility] 32) 32 ONCE DAILY Branch gauge x ICD-10 1/4" Ndle CODE E11.22 Insulin Yes [id number] USE [facility] [place], 5- DIRECTED ity of Disposable, 00:00: TO INJECT [place] (NOVOFINE 00 [facility] 32) 32 ONCE DAILY Branch gauge x ICD-10 1/4" Ndle CODE E11.22 Insulin Yes [id number] USE [facility] [place], 5- DIRECTED ity of Disposable, 00:00: TO INJECT [place] (NOVOFINE 00 [facility] 32) 32 ONCE DAILY Branch gauge x ICD-10 1/4" Ndle CODE E11.22 Insulin Yes [id number] USE [facility] [place], 5- DIRECTED ity of Disposable, 00:00: TO INJECT [place] (NOVOFINE 00 [facility] 32) 32 ONCE DAILY Branch gauge x ICD-10 1/4" Ndle CODE E11.22 Insulin Yes [id number] USE [facility] [place], 5- DIRECTED ity of Disposable, 00:00: TO INJECT [place] (NOVOFINE 00 [facility] 32) 32 ONCE DAILY Branch gauge x ICD-10 1/4" Ndle CODE E11.22 Insulin Yes [id number] USE [facility] [place], 5- DIRECTED ity of Disposable, 00:00: TO INJECT [place] (NOVOFINE 00 [facility] 32) 32 ONCE DAILY Branch gauge x ICD-10 1" Ndle CODE E11.22 Insulin 2020-0 Yes [id number] USE [facility] [place], 5- DIRECTED ity of Disposable, 00:00: TO INJECT [place] (NOVOFINE 00 [facility] 32) 32 ONCE DAILY Branch gauge x ICD-10 1" Ndle CODE E11.22 Insulin 2020-0 Yes [id number] USE [facility] [place], 5- DIRECTED ity of Disposable, 00:00: TO INJECT [place] (NOVOFINE 00 [facility] 32) 32 ONCE DAILY Branch gauge x ICD-10 06/19" Ndle CODE E11.22 loperamide 2020-0 Yes [facility] 2 mg 4-16 ity of capsule 00:00: Medical Branch ondansetron 0 Yes [facility] 4 mg tablet 4-16 ity of 00:00: Medical Branch loperamide 2020-0 Yes [facility] 2 mg 4-16 ity of capsule 00:00: Medical Branch ondansetron 2020-0 Yes [facility] 4 mg tablet 4-16 ity of 00:00: Medical Branch loperamide 2020-0 Yes [facility] 2 mg 4-16 ity of capsule 00:00: Medical Branch ondansetron 2020-0 Yes [facility] 4 mg tablet 4-16 ity of 00:00: Medical Branch loperamide 2020-0 Yes [facility] 2 mg 4-16 ity of capsule 00:00: Medical Branch ondansetron 2020-0 Yes [facility] 4 mg tablet 4-16 ity of 00:00: Medical Branch loperamide 2020-0 Yes [facility] 2 mg 4-16 ity of capsule 00:00: Medical Branch ondansetron 2020-0 Yes [facility] 4 mg tablet 4-16 ity of 00:00: Medical Branch loperamide 2020-0 Yes [facility] 2 mg 4-16 ity of capsule 00:00: Medical Branch ondansetron 2020-0 Yes [facility] 4 mg tablet 4-16 ity of 00:00: Medical Branch loperamide 2020-0 Yes [facility] 2 mg 4-16 ity of capsule 00:00: [place] [facility] ondansetron 2020-0 Yes Un[facility] 4 mg tablet 4-16 ity of 00:00: [place] [facility] loperamide 2020-0 Yes [facility] 2 mg 4-16 ity of capsule 00:00: [place] [facility] ondansetron 2020-0 Yes Un[facility] 4 mg tablet 4-16 ity of 00:00: [place] [facility] loperamide 2020-0 Yes [facility] 2 mg 4-16 ity of capsule 00:00: [place] [facility] ondansetron 2020-0 Yes Un[facility] 4 mg tablet 4-16 ity of 00:00: [place] [address] Medical Branch loperamide 2020-0 Yes [facility] 2 mg 4-16 ity of capsule 00:00: [place] [facility] ondansetron 2020-0 Yes Un[facility] 4 mg tablet 4-16 ity of 00:00: [place] [facility] loperamide 2020-0 Yes [facility] 2 mg 4-16 ity of capsule 00:00: [place] [facility] ondansetron 2020-0 Yes Un[facility] 4 mg tablet 4-16 ity of 00:00: [place] [address] Medical Branch loperamide 2020-0 Yes [facility] 2 mg 4-16 ity of capsule 00:00: [place] [facility] ondansetron 2020-0 Yes Un[facility] 4 mg tablet 4-16 ity of 00:00: [place] [address] Medical Branch loperamide 2020-0 Yes [facility] 2 mg 4-16 ity of capsule 00:00: [place] [facility] ondansetron 2020-0 Yes Un[facility] 4 mg tablet 4-16 ity of 00:00: [place] [facility] loperamide 2020-0 Yes [facility] 2 mg 4-16 ity of capsule 00:00: [place] [address] Medical Branch ondansetron 2020-0 Yes Un[facility] 4 mg tablet 4-16 ity of 00:00: [place] [facility] loperamide 1-0 Yes [facility] 2 mg 4-16 ity of capsule 00:00: [place] [address] Medical Branch ondansetron 2020-0 Yes Un[facility] 4 mg tablet 4-16 ity of 00:00: [place] [address] Medical Branch loperamide 2020-0 Yes [facility] 2 mg 4-16 ity of capsule 00:00: [place] [facility] ondansetron 2020-0 Yes Un[facility] 4 mg tablet 4-16 ity of 00:00: [place] [facility] loperamide 2020-0 Yes [facility] 2 mg 4-16 ity of capsule 00:00: [place] [facility] ondansetron 2020-0 Yes Un[facility] 4 mg tablet 4-16 ity of 00:00: [place] [facility] loperamide 2020-0 Yes [facility] 2 mg 4-16 ity of capsule 00:00: [place] [facility] ondansetron 2020-0 Yes Un[facility] 4 mg tablet 4-16 ity of 00:00: [place] [facility] loperamide 2020-0 Yes [facility] 2 mg 4-16 ity of capsule 00:00: [place] [facility] ondansetron 2020-0 Yes Un[facility] 4 mg tablet 4-16 ity of 00:00: [place] [facility] loperamide 2020-0 Yes [facility] 2 mg 4-16 ity of capsule 00:00: [place] [facility] ondansetron 2020-0 Yes Un[facility] 4 mg tablet 4-16 ity of 00:00: [place] [address] Medical Branch loperamide 2020-0 Yes [facility] 2 mg 4-16 ity of capsule 00:00: [place] [facility] ondansetron 2020-0 Yes Un[facility] 4 mg tablet 4-16 ity of 00:00: [place] [facility] loperamide 2020-0 Yes [facility] 2 mg 4-16 ity of capsule 00:00: [place] [facility] ondansetron 2020-0 Yes Un[facility] 4 mg tablet 4-16 ity of 00:00: [place] [facility] loperamide 2020-0 Yes [facility] 2 mg 4-16 ity of capsule 00:00: [place] [address] Medical Branch ondansetron 2020-0 Yes Un[facility] 4 mg tablet 4-16 ity of 00:00: [place] [facility] acetaminoph 2020- Yes [id number] 650mg Take 1 [facility] en (TYLENOL 0-20 tablet by ity of 8 HOUR) 650 00:00: mouth [place] mg CR 00 every 8 Medical tablet (eight) Branch hours as needed for Pain. acetaminoph 2019- Yes [id number] 650mg Take 1 [facility] en (TYLENOL 0-20 tablet by ity of 8 HOUR) 650 00:00: mouth [place] mg CR 00 every 8 Medical tablet (eight) Branch hours as needed for Pain. acetaminoph 2020- Yes [id number] 650mg Take 1 [facility] en (TYLENOL 0-20 tablet by ity of 8 HOUR) 650 00:00: mouth [place] mg CR 00 every 8 Medical tablet (eight) Branch hours as needed for Pain. acetaminoph 2020- Yes [id number] 650mg Take 1 [facility] en (TYLENOL 0-20 tablet by ity of 8 HOUR) 650 00:00: mouth [place] mg CR 00 every 8 Medical tablet (eight) Branch hours as needed for Pain. acetaminoph 2019-06 Yes [id number] 650mg Take 1 [facility] en (TYLENOL 0-20 tablet by ity of 8 HOUR) 650 00:00: mouth [place] mg CR 00 every 8 Medical tablet (eight) Branch hours as needed for Pain. acetaminoph 2019-06 Yes [id number] 650mg Take 1 [facility] en (TYLENOL 0-20 tablet by ity of 8 HOUR) 650 00:00: mouth [place] mg CR 00 every 8 Medical tablet (eight) Branch hours as needed for Pain. acetaminoph 2019-06 Yes [id number] 650mg Take 1 [facility] en (TYLENOL 0-20 tablet by ity of 8 HOUR) 650 00:00: mouth [place] mg CR 00 every 8 Medical tablet (eight) Branch hours as needed for Pain. acetaminoph 2019-06 Yes [id number] 650mg Take 1 [facility] en (TYLENOL 0-20 tablet by ity of 8 HOUR) 650 00:00: mouth [place] mg CR 00 every 8 Medical tablet (eight) Branch hours as needed for Pain. acetaminoph 2019- Yes [id number] 650mg Take 1 [facility] en (TYLENOL 0-20 tablet by ity of 8 HOUR) 650 00:00: mouth [place] mg CR 00 every 8 Medical tablet (eight) Branch hours as needed for Pain. acetaminoph 2020- Yes [id number] 650mg Take 1 [facility] en (TYLENOL 0-20 tablet by ity of 8 HOUR) 650 00:00: mouth [place] mg CR 00 every 8 Medical tablet (eight) Branch hours as needed for Pain. acetaminoph 2020- Yes [id number] 650mg Take 1 [facility] (TYLENOL 0-20 tablet by ity of 8 HOUR) 650 00:00: mouth [place] mg CR 00 every 8 Medical tablet (eight) Branch hours as needed for Pain. acetaminoph 2020- Yes [id number] 650mg Take 1 [facility] en (TYLENOL 0-20 tablet by ity of 8 HOUR) 650 00:00: mouth [place] mg CR 00 every 8 Medical tablet (eight) Branch hours as needed for Pain. acetaminoph 2019-06 Yes [id number] 650mg Take 1 [facility] en (TYLENOL 0-20 tablet by ity of 8 HOUR) 650 00:00: mouth [place] mg CR 00 every 8 Medical tablet (eight) Branch hours as needed for Pain. acetaminoph 2019-06 Yes [id number] 650mg Take 1 [facility] en (TYLENOL 0-20 tablet by ity of 8 HOUR) 650 00:00: mouth [place] mg CR 00 every 8 Medical tablet (eight) Branch hours as needed for Pain. acetaminoph 2019-06 Yes [id number] 650mg Take 1 [facility] en (TYLENOL 0-20 tablet by ity of 8 HOUR) 650 00:00: mouth [place] mg CR 00 every 8 Medical tablet (eight) Branch hours as needed for Pain. acetaminoph 2019-06 Yes [id number] 650mg Take 1 [facility] en (TYLENOL 0-20 tablet by ity of 8 HOUR) 650 00:00: mouth [place] mg CR 00 every 8 Medical tablet (eight) Branch hours as needed for Pain. acetaminoph 2019-06 Yes [id number] 650mg Take 1 [facility] en (TYLENOL 0-20 tablet by ity of 8 HOUR) 650 00:00: mouth [place] mg CR 00 every 8 Medical tablet (eight) Branch hours as needed for Pain. acetaminoph 2019-06 Yes [id number] 650mg Take 1 [facility] en (TYLENOL 0-20 tablet by ity of 8 HOUR) 650 00:00: mouth [place] mg CR 00 every 8 Medical tablet (eight) Branch hours as needed for Pain. acetaminoph 2020- Yes [id number] 650mg Take 1 [facility] en (TYLENOL 0-20 tablet by ity of 8 HOUR) 650 00:00: mouth [place] mg CR 00 every 8 Medical tablet (eight) Branch hours as needed for Pain. acetaminoph 2020- Yes [id number] 650mg Take 1 [facility] en (TYLENOL 0-20 tablet by ity of 8 HOUR) 650 00:00: mouth [place] mg CR 00 every 8 Medical tablet (eight) Branch hours as needed for Pain. acetaminoph 2020-1 Yes [id number] 650mg Take 1 [facility] en (TYLENOL 0-20 tablet by ity of 8 HOUR) 650 00:00: mouth [place] mg CR 00 every 8 Medical tablet (eight) Branch hours as needed for Pain. acetaminoph 2020-1 Yes [id number] 650mg Take 1 [facility] en (TYLENOL 0-20 tablet by ity of 8 HOUR) 650 00:00: mouth [place] mg CR 00 every 8 Medical tablet (eight) Branch hours as needed for Pain. acetaminoph 2020- Yes [id number] 650mg Take 1 [facility] en (TYLENOL 0-20 tablet by ity of 8 HOUR) 650 00:00: mouth [place] mg CR 00 every 8 Medical tablet (eight) Branch hours as needed for Pain. Alcohol 2019-0 Yes [id number] Use 1 pad [facility] n[facility] Swabs 4-03 PRN to ity of (ALCOHOL 00:00: prep [place] PREP PADS) 00 for Medical PadM insulin Branch injection or glucose testing; ICD-10 code E11.22 Alcohol 2020-0 Yes [id number] Use 1 pad U nivers Swabs 4-03 PRN to ity of (ALCOHOL 00:00: prep skin [place] PREP PADS) 00 for Medical PadM insulin Branch injection or glucose testing; ICD-10 code E11.22 Alcohol 2020-0 Yes [id number] Use 1 pad U nivers Swabs 4-03 PRN to ity of (ALCOHOL 00:00: prep [place] 00 for Medical PadM insulin Branch injection or glucose testing; ICD-10 code E11.22 Alcohol 2020-0 Yes [id number] Use 1 pad U nivers Swabs 4-03 PRN to ity of (ALCOHOL 00:00: [place] PRE[place] 00 for Medical PadM insulin Branch injection or glucose testing; ICD-10 code E11.22 Alcohol 2020-0 Yes [id number] Use 1 pad U nivers Swabs 4-03 PRN to ity of (ALCOHOL 00:00: prep [place] PRE[place]ADS[place] 00 for Medical PadM insulin Branch injection or glucose testing; ICD-10 code E11.22 Alcohol 2020-0 Yes [id number] Use 1 pad U nivers Swabs 4-03 PRN to ity of (ALCOHOL 00:00: prep [place] PRE[place] PADS[place] 00 for Medical PadM insulin Branch injection or glucose testing; ICD-10 code E11.22 Alcohol 2020-0 Yes [id number] Use 1 pad U nivers Swabs 4-03 PRN to ity of (ALCOHOL 00:00: prep [place] PRE[place] 00 for Medical PadM insulin Branch injection or glucose testing; ICD-10 code E11.22 Alcohol 2020-0 Yes [id number] Use 1 pad U nivers Swabs 4-03 PRN to ity of (ALCOHOL 00:00: prep [place] PRE[place] PADS[place] 00 for Medical PadM insulin Branch injection or glucose testing; ICD-10 code E11.22 Alcohol 2020-0 Yes [id number] Use 1 pad [facility] nivers Swabs 4-03 PRN to ity of (ALCOHOL 00:00: prep [place] PREP PADS[place] 00 for Medical PadM insulin Branch injection or glucose testing; ICD-10 code E11.22 Alcohol 2020-0 Yes [id number] Use 1 pad U nivers Swabs 4-03 PRN to ity of (ALCOHOL 00:00: prep [place] PREP PADS[place] 00 for Medical PadM insulin Branch injection or glucose testing; ICD-10 code E11.22 Alcohol 2020-0 Yes [id number] Use 1 pad U nivers Swabs 4-03 PRN to ity of (ALCOHOL 00:00: prep [place] PREP PADS[place] 00 for Medical PadM insulin Branch injection or glucose testing; ICD-10 code E11.22 Alcohol 2020-0 Yes [id number] Use 1 pad [facility] nivers Swabs 4-03 PRN to ity of (ALCOHOL 00:00: prep [place] PREP PADS[place] 00 for Medical PadM insulin Branch injection or glucose testing; ICD-10 code E11.22 Alcohol 2020-0 Yes [id number] Use 1 pad U nivers Swabs 4-03 PRN to ity of (ALCOHOL 00:00: prep [place] PREP PADS[place] 00 for Medical PadM insulin Branch injection or glucose testing; ICD-10 code E11.22 Alcohol 2020-0 Yes [id number] Use 1 pad U nivers Swabs 4-03 PRN to ity of (ALCOHOL 00:00: prep [place] PREP PADS[place] 00 for Medical PadM insulin Branch injection or glucose testing; ICD-10 code E11.22 Alcohol 2020-0 Yes [id number] Use 1 pad U nivers Swabs 4-03 PRN to ity of (ALCOHOL 00:00: prep [place] PREP PADS[place] 00 for Medical PadM insulin Branch injection or glucose testing; ICD-10 code E11.22 Alcohol 2020-0 Yes [id number] Use 1 pad [facility] nivers Swabs 4-03 PRN to ity of (ALCOHOL 00:00: prep [place] PREP PADS[place] 00 for Medical PadM insulin Branch injection or glucose testing; ICD-10 code E11.22 Alcohol 2020-0 Yes [id number] Use 1 pad U nivers Swabs 4-03 PRN to ity of (ALCOHOL 00:00: prep [place] PREP PADS[place] 00 for Medical PadM insulin Branch injection or glucose testing; ICD-10 code E11.22 Alcohol 2020-0 Yes [id number] Use 1 pad U nivers Swabs 4-03 PRN to ity of (ALCOHOL 00:00: prep [place] PREP PADS[place] 00 for Medical PadM insulin Branch injection or glucose testing; ICD-10 code E11.22 Alcohol 2020-0 Yes [id number] Use 1 pad U nivers Swabs 4-03 PRN to [facility]y of (ALCOHOL 00:00: prep [place] PREP PADS[place] 00 for Medical PadM insulin Branch injection or glucose testing; ICD-10 code E11.22 Alcohol 2020-0 Yes [id number] Use 1 pad [facility] nivers Swabs 4-03 PRN to ity of (ALCOHOL 00:00: prep [place] PREP PADS[place] 00 for Medical PadM insulin Branch injection or glucose testing; ICD-10 code E11.22 Alcohol 2020-0 Yes [id number] Use 1 pad U nivers Swabs 4-03 PRN to ity of (ALCOHOL 00:00: prep [place] PREP PADS[place] 00 for Medical PadM insulin Branch injection or glucose testing; ICD-10 code E11.22 Alcohol 2020-0 Yes [id number] Use 1 pad U nivers Swabs 4-03 PRN to ity of (ALCOHOL 00:00: prep [place] PREP PADS[place] 00 for Medical PadM insulin Branch injection or glucose testing; ICD-10 code E11.22 Alcohol 2020-0 Yes [id number] Use 1 pad U nivers Swabs 4-03 PRN to ity of (ALCOHOL 00:00: prep [place] PREP PADS[place] 00 for Medical PadM insulin Branch injection or glucose testing; ICD-10 code E11.22 traMADol 50 2019-0 Yes [id number] 50mg Take 1 [facility]-26 tablet by [facility] o f 00:00: mouth [place] 00 every 6 Medical (six) Branch hours as needed for Pain (scale 7-10). traMADol 50 2019-0 Yes [id number] 50mg Take 1 [facility] mg tablet 9-26 tablet by ity o f 00:00: mouth [place] 00 every 6 Medical (six) Branch hours as needed for Pain (scale 7-10). traMADol 50 2019-0 Yes [id number] 50mg Take 1 [facility] mg tablet 9-26 tablet by ity o f 00:00: mouth [place] 00 every 6 Medical (six) Branch hours as needed for Pain (scale 7-10). traMADol 50 2019-0 Yes [id number] 50mg Take 1 [facility] mg tablet 9-26 tablet by ity o f 00:00: mouth [place] 00 every 6 Medical (six) Branch hours as needed for Pain (scale 7-10). traMADol 50 2019-0 Yes [id number] 50mg Take 1 [facility] mg tablet 9-26 tablet by ity o f 00:00: mouth [place] 00 every 6 Medical (six) Branch hours as needed for Pain (scale 7-10). traMADol 50 2019-0 Yes [id number] 50mg Take 1 [facility] mg tablet 9-26 tablet by ity o f 00:00: mouth [place] 00 every 6 Medical (six) Branch hours as needed for Pain (scale 7-10). traMADol 50 2019-0 Yes [id number] 50mg Take 1 [facility] mg tablet 9-26 tablet by ity o f 00:00: mouth [place] 00 every 6 Medical (six) Branch hours as needed for Pain (scale 7-10). traMADol 50 2019-0 Yes [id number] 50mg Take 1 [facility] mg tablet 9-26 tablet by ity o f 00:00: mouth [place] 00 every 6 Medical (six) Branch hours as needed for Pain (scale 7-10). traMADol 50 2019-0 Yes [id number] 50mg Take 1 [facility] mg tablet 9-26 tablet by ity o f 00:00: mouth [place] 00 every 6 Medical (six) Branch hours as needed for Pain (scale 7-10). traMADol 50 2019-0 Yes [id number] 50mg Take 1 [facility] mg tablet 9-26 tablet by ity o f 00:00: mouth [place] 00 every 6 Medical (six) Branch hours as needed for Pain (scale 7-10). traMADol 50 2019-0 Yes [id number] 50mg Take 1 [facility] mg tablet 9-26 tablet by ity o f 00:00: mouth [place] 00 every 6 Medical (six) Branch hours as needed for Pain (scale 7-10). traMADol 50 2019-0 Yes [id number] 50mg Take 1 [facility] mg tablet 9-26 tablet by ity o f 00:00: mouth [place] 00 every 6 Medical (six) Branch hours as needed for Pain (scale 7-10). traMADol 50 2019-0 Yes [id number] 50mg Take 1 [facility] mg tablet 9-26 tablet by ity o f 00:00: mouth [place] 00 every 6 Medical (six) Branch hours as needed for Pain (scale 7-10). traMADol 50 2019-0 Yes [id number] 50mg Take 1 [facility] mg tablet 9-26 tablet by ity o f 00:00: mouth [place] 00 every 6 Medical (six) Branch hours as needed for Pain (scale 7-10). traMADol 50 2019-0 Yes [id number] 50mg Take 1 [facility] mg tablet 9-26 tablet by ity o f 00:00: mouth [place] 00 every 6 Medical (six) Branch hours as needed for Pain (scale 7-10). traMADol 50 2019-0 Yes [id number] 50mg Take 1 [facility] mg tablet 9-26 tablet by ity o f 00:00: mouth [place] 00 every 6 Medical (six) Branch hours as needed for Pain (scale 7-10). traMADol 50 2019-0 Yes [id number] 50mg Take 1 [facility] mg tablet 9-26 tablet by ity o f 00:00: mouth [place] 00 every 6 Medical (six) Branch hours as needed for Pain (scale 7-10). traMADol 50 2019-0 Yes [id number] 50mg Take 1 [facility] mg tablet 9-26 tablet by ity o f 00:00: mouth [place] 00 every 6 Medical (six) Branch hours as needed for Pain (scale 7-10). traMADol 50 2019-0 Yes [id number] 50mg Take 1 [facility] mg tablet 9-26 tablet by ity o f 00:00: mouth [place] 00 every 6 Medical (six) Branch hours as needed for Pain (scale 7-10). traMADol 50 2019-0 Yes [id number] 50mg Take 1 [facility] mg tablet 9-26 tablet by ity o f 00:00: mouth [place] 00 every 6 Medical (six) Branch hours as needed for Pain (scale 7-10). traMADol 50 2018- Yes [id number] 50mg Take 1 [facility] mg tablet 9-26 tablet by ity o f 00:00: mouth [place] 00 every 6 Medical (six) Branch hours as needed for Pain (scale 7-10). traMADol 50 2018-0 Yes [id number] 50mg Take 1 [facility] mg tablet 9-26 tablet by ity o f 00:00: mouth [place] 00 every 6 Medical (six) Branch hours as needed for Pain (scale 7-10). traMADol 50 2018- Yes [id number] 50mg Take 1 [facility] mg tablet 9-26 tablet by ity o f 00:00: mouth [place] 00 every 6 Medical (six) Branch hours as needed for Pain (scale 7-10). nitroglycer Yes .4mg Place 0.[address] in 5-16 mg under [facility] (NITROSTAT) 16:47: the tongue Medical 0.4 MG SL 17 every 5 Center tablet (five) minutes as needed for Chest pain Put 1 pill under tongue every 5min as needed for chest pain.No more than 3 doses in 15min.Call 911 if pain is unrelieved 5min after 1st dose . terazosin Yes 2mg QD Take [address] [facility] (HYTRIN) 2 5-16 by [facility] capsule 16:47: nightly. Med ical 17 Center aspirin 81 Yes 81mg QD Take [address] MG chewable 5-16 by mouth [facility] tablet 16:47: daily. Medical 17 Center calcium Yes 1334mg Take 1,[address] [facility] [address] acetate 5-16 mg by [facility] (PHOSLO) 16:47: mouth 3 Medica l 667 mg 17 (three) Center capsule times daily with meals . rosuvastati Yes 10mg QD Take [address] [facility] n (CRESTOR) 5-16 by mouth [facility] 10 MG 16:47: daily. Medical tablet 17 Center insulin NPH Yes 10U Inject [address] 100 unit/mL 5-16 Units [facility] (3 mL) InPn 16:47: subcutaneo Medical 17 usly every Center morning before breakfast. insulin Yes Inject [facility] regular 5-16 subcutaneo [facility] (HUMULIN 16:47: usly 3 Medical R,NOVOLIN 17 (three) Center R) 100 times unit/mL daily injection before meals Use as directed, sliding scale. . cholecalcif Yes 5000U QD Take 5,[address] [facility] julito, 5-16 Units by [place] vitamin D3, 16:47: mouth Medic al (VITAMIN 17 daily. Center D3) 5,000 unit Tab acetaminoph Yes 1{tbl} Take [address] en-codeine 5-16 tablet by [place] [facility] (TYLENOL 00:00: mouth Medical #3) 300-30 00 every 6 Center mg per (six) tablet hours as needed for Pain. Max Daily Amount: 4 tablets metoprolol Yes 25mg Q.5D Take 1 [facility] (TOPROL-XL) 5-16 tablet (25 Sushma kes 25 MG 24 hr 00:00: mg total) M edical tablet 00 by mouth 2 Center (two) times daily. Immunizations Ordered Filled Immunization Date Status Comments [facility] e Immunization Name Name Pneumococcal 2021-07-09 Completed University o f Polysaccharide, 00:00:00 [place] [facility] ical PPSV23 (PNEUMOVAX) Branch Pneumococcal 2021-07-09 Completed University o f Polysaccharide, 00:00:00 [place] [facility] ical PPSV23 (PNEUMOVAX) Branch Pneumococcal 2021-07-09 Completed University o f Polysaccharide, 00:00:00 [place] [facility] ical PPSV23 (PNEUMOVAX) Branch Pneumococcal 2021-07-09 Completed University o f Polysaccharide, 00:00:00 [place] [facility] ical PPSV23 (PNEUMOVAX) Branch Pneumococcal 2021-07-09 Completed University o f Polysaccharide, 00:00:00 [place] [facility] ical PPSV23 (PNEUMOVAX) Branch Pneumococcal 2021-07-09 Completed University o f Polysaccharide, 00:00:00 [place] [facility] ical PPSV23 (PNEUMOVAX) Branch Pneumococcal 2021-07-09 Completed University o f Polysaccharide, 00:00:00 [place] [facility] ical PPSV23 (PNEUMOVAX) Branch Pneumococcal 2021-07-09 Completed University o f Polysaccharide, 00:00:00 [place] [facility] ical PPSV23 (PNEUMOVAX) Branch Pneumococcal 2021-07-09 Completed University o f Polysaccharide, 00:00:00 [place] [facility] ical PPSV23 (PNEUMOVAX) Branch Pneumococcal 2021-07-09 Completed University o f Polysaccharide, 00:00:00 [place] [facility] ical PPSV23 (PNEUMOVAX) Branch Pneumococcal 2021-07-09 Completed University o f Polysaccharide, 00:00:00 [place] [facility] ical PPSV23 (PNEUMOVAX) Branch Pneumococcal 2021-07-09 Completed University o f Polysaccharide, 00:00:00 [place] [facility] ical PPSV23 (PNEUMOVAX) Branch Pneumococcal 2021-07-09 Completed University o f Polysaccharide, 00:00:00 [place] [facility] ical PPSV23 (PNEUMOVAX) Branch Pneumococcal 2021-07-09 Completed University o f Polysaccharide, 00:00:00 [place] [facility] ical PPSV23 (PNEUMOVAX) Branch Pneumococcal 2021-07-09 Completed University o f Polysaccharide, 00:00:00 [place] [facility] ical PPSV23 (PNEUMOVAX) Branch Pneumococcal 2021-07-09 Completed University o f Polysaccharide, 00:00:00 [place] [facility] ical PPSV23 (PNEUMOVAX) Branch Pneumococcal 2021-07-09 Completed University o f Polysaccharide, 00:00:00 [place] [facility] ical PPSV23 (PNEUMOVAX) Branch Pneumococcal 2021-07-09 Completed University o f Polysaccharide, 00:00:00 [place] [facility] ical PPSV23 (PNEUMOVAX) Branch Pneumococcal 2021-07-09 Completed University o f Polysaccharide, 00:00:00 [place] [facility] ical PPSV23 (PNEUMOVAX) Branch Pneumococcal 2021-07-09 Completed University o f Polysaccharide, 00:00:00 [place] [facility] ical PPSV23 (PNEUMOVAX) Branch Pneumococcal 2021-07-09 Completed University o f Polysaccharide, 00:00:00 [place] [facility] ical PPSV23 (PNEUMOVAX) Branch Pneumococcal 2021-07-09 Completed University o f Polysaccharide, 00:00:00 [place] [facility] ical PPSV23 (PNEUMOVAX) Branch Pneumococcal 2021-07-09 Completed University o f Polysaccharide, 00:00:00 [place] [facility] ical PPSV23 (PNEUMOVAX) Branch SARS-COV-2 COVID-19 2021-04-28 Completed Unive rsity of MODERNA VACCINE 00:00:00 [place] [facility] Branch SARS-COV-2 COVID-19 2021-04-28 Completed Unive rsity of MODERNA VACCINE 00:00:00 [place] [facility] ical Branch SARS-COV-2 COVID-19 2021-04-28 Completed Unive rsity of MODERNA 12+ YRS 00:00:00 [place] [facility] ical VACCINE Branch SARS-COV-2 COVID-19 2021-04-28 Completed Unive rsity of MODERNA 12+ YRS 00:00:00 [place] [facility] ical VACCINE Branch SARS-COV-2 COVID-19 2021-04-28 Completed Unive rsity of MODERNA 12+ YRS 00:00:00 [place] [facility] ical VACCINE Branch SARS-COV-2 COVID-19 2021-04-28 Completed Unive rsity of MODERNA 12+ YRS 00:00:00 [place] [facility] ical VACCINE Branch SARS-COV-2 COVID-19 2021-04-28 Completed Unive rsity of MODERNA 12+ YRS 00:00:00 [place] [facility] ical VACCINE Branch SARS-COV-2 COVID-19 2021-04-28 Completed Unive rsity of MODERNA 12+ YRS 00:00:00 [place] [facility] ical VACCINE Branch SARS-COV-2 COVID-19 2021-04-28 Completed Unive rsity of MODERNA 12+ YRS 00:00:00 [place] [facility] ical VACCINE Branch SARS-COV-2 COVID-19 2021-04-28 Completed Unive rsity of MODERNA 12+ YRS 00:00:00 [place] [facility] ical VACCINE Branch SARS-COV-2 COVID-19 2021-04-28 Completed Unive rsity of MODERNA 12+ YRS 00:00:00 [place] [facility] ical VACCINE Branch SARS-COV-2 COVID-19 2021-04-28 Completed Unive rsity of MODERNA 12+ YRS 00:00:00 [place] [facility] ical VACCINE Branch SARS-COV-2 COVID-19 2021-04-28 Completed Unive rsity of MODERNA 12+ YRS 00:00:00 [place] [facility] ical VACCINE Branch SARS-COV-2 COVID-19 2021-04-28 Completed Unive rsity of MODERNA 12+ YRS 00:00:00 [place] [facility] ical VACCINE Branch SARS-COV-2 COVID-19 2021-04-28 Completed Unive rsity of MODERNA 12+ YRS 00:00:00 [place] [facility] ical VACCINE Branch SARS-COV-2 COVID-19 2021-04-28 Completed Unive rsity of MODERNA 12+ YRS 00:00:00 [place] [facility] ical VACCINE Branch SARS-COV-2 COVID-19 2021-04-28 Completed Unive rsity of MODERNA 12+ YRS 00:00:00 [place] [facility] ical VACCINE Branch SARS-COV-2 COVID-19 2021-04-28 Completed Unive rsity of MODERNA 12+ YRS 00:00:00 [place] [facility] ical VACCINE Branch SARS-COV-2 COVID-19 2021-04-28 Completed Unive rsity of MODERNA 12+ YRS 00:00:00 [place] [facility] ical VACCINE Branch SARS-COV-2 COVID-19 2021-04-28 Completed Unive rsity of MODERNA 12+ YRS 00:00:00 [place] [facility] ical VACCINE Branch SARS-COV-2 COVID-19 2021-04-28 Completed Unive rsity of MODERNA 12+ YRS 00:00:00 [place] [facility] ical VACCINE Branch SARS-COV-2 COVID-19 2021-04-28 Completed Unive rsity of MODERNA 12+ YRS 00:00:00 [place] [facility] ical VACCINE Branch SARS-COV-2 COVID-19 2021-04-28 Completed Unive rsity of MODERNA 12+ YRS 00:00:00 [place] [facility] ical VACCINE Branch SARS-COV-2 COVID-19 2020-09-14 Completed Unive rsity of MODERNA VACCINE 00:00:00 [place] [facility] Branch SARS-COV-2 COVID-19 2020-09-14 Completed Unive rsity of MODERNA VACCINE 00:00:00 [place] [facility] Branch SARS-COV-2 COVID-19 2020-09-14 Completed Unive rsity of MODERNA 12+ YRS 00:00:00 [place] [facility] ical VACCINE Branch SARS-COV-2 COVID-19 2020-09-14 Completed Unive rsity of MODERNA 12+ YRS 00:00:00 [place] [facility] ical VACCINE Branch SARS-COV-2 COVID-19 2020-09-14 Completed Unive rsity of MODERNA 12+ YRS 00:00:00 [place] [facility] ical VACCINE Branch SARS-COV-2 COVID-19 2020-09-14 Completed Unive rsity of MODERNA 12+ YRS 00:00:00 [place] [facility] ical VACCINE Branch SARS-COV-2 COVID-19 2020-09-14 Completed Unive rsity of MODERNA 12+ YRS 00:00:00 [place] [facility] ical VACCINE Branch SARS-COV-2 COVID-19 2020-09-14 Completed Unive rsity of MODERNA 12+ YRS 00:00:00 [place] [facility] ical VACCINE Branch SARS-COV-2 COVID-19 2020-09-14 Completed Unive rsity of MODERNA 12+ YRS 00:00:00 [place] [facility] ical VACCINE Branch SARS-COV-2 COVID-19 2020-09-14 Completed Unive rsity of MODERNA 12+ YRS 00:00:00 [place] [facility] ical VACCINE Branch SARS-COV-2 COVID-19 2020-09-14 Completed Unive rsity of MODERNA 12+ YRS 00:00:00 [place] [facility] ical VACCINE Branch SARS-COV-2 COVID-19 2020-09-14 Completed Unive rsity of MODERNA 12+ YRS 00:00:00 [place] [facility] ical VACCINE Branch SARS-COV-2 COVID-19 2020-09-14 Completed Unive rsity of MODERNA 12+ YRS 00:00:00 [place] [facility] ical VACCINE Branch SARS-COV-2 COVID-19 2020-09-14 Completed Unive rsity of MODERNA 12+ YRS 00:00:00 [place] [facility] ical VACCINE Branch SARS-COV-2 COVID-19 2020-09-14 Completed Unive rsity of MODERNA 12+ YRS 00:00:00 [place] [facility] ical VACCINE Branch SARS-COV-2 COVID-19 2020-09-14 Completed Unive rsity of MODERNA 12+ YRS 00:00:00 [place] [facility] ical VACCINE Branch SARS-COV-2 COVID-19 2020-09-14 Completed Unive rsity of MODERNA 12+ YRS 00:00:00 [place] Med ical VACCINE Branch SARS-COV-2 COVID-19 2020-09-14 Completed Unive rsity of MODERNA 12+ YRS 00:00:00 [place] [facility] ical VACCINE Branch SARS-COV-2 COVID-19 2020-09-14 Completed Unive rsity of MODERNA 12+ YRS 00:00:00 [place] Med ical VACCINE Branch SARS-COV-2 COVID-19 2020-09-14 Completed Unive rsity of MODERNA 12+ YRS 00:00:00 [place] Med ical VACCINE Branch SARS-COV-2 COVID-19 2020-09-14 Completed Unive rsity of MODERNA 12+ YRS 00:00:00 [place] [facility] ical VACCINE Branch SARS-COV-2 COVID-19 2020-09-14 Completed Unive rsity of MODERNA 12+ YRS 00:00:00 [place] [facility] ical VACCINE Branch SARS-COV-2 COVID-19 2020-09-14 Completed Unive rsity of MODERNA 12+ YRS 00:00:00 [place] [facility] ical VACCINE Branch SARS-COV-2 COVID-19 2020-08-16 Completed Unive rsity of MODERNA VACCINE 00:00:00 [place] [facility] Branch SARS-COV-2 COVID-19 2020-08-16 Completed Unive rsity of MODERNA VACCINE 00:00:00 [place] [facility] Branch SARS-COV-2 COVID-19 2020-08-16 Completed Unive rsity of MODERNA 12+ YRS 00:00:00 [place] [facility] ical VACCINE Branch SARS-COV-2 COVID-19 2020-08-16 Completed Unive rsity of MODERNA 12+ YRS 00:00:00 [place] [facility] ical VACCINE Branch SARS-COV-2 COVID-19 2020-08-16 Completed Unive rsity of MODERNA 12+ YRS 00:00:00 [place] [facility] ical VACCINE Branch SARS-COV-2 COVID-19 2020-08-16 Completed Unive rsity of MODERNA 12+ YRS 00:00:00 [place] Med ical VACCINE Branch SARS-COV-2 COVID-19 2020-08-16 Completed Unive rsity of MODERNA 12+ YRS 00:00:00 [place] Med ical VACCINE Branch SARS-COV-2 COVID-19 2020-08-16 Completed Unive rsity of MODERNA 12+ YRS 00:00:00 [place] [facility] ical VACCINE Branch SARS-COV-2 COVID-19 2020-08-16 Completed Unive rsity of MODERNA 12+ YRS 00:00:00 [place] [facility] ical VACCINE Branch SARS-COV-2 COVID-19 2020-08-16 Completed Unive rsity of MODERNA 12+ YRS 00:00:00 [place] [facility] ical VACCINE Branch SARS-COV-2 COVID-19 2020-08-16 Completed Unive rsity of MODERNA 12+ YRS 00:00:00 [place] [facility] ical VACCINE Branch SARS-COV-2 COVID-19 2020-08-16 Completed Unive rsity of MODERNA 12+ YRS 00:00:00 [place] Med ical VACCINE Branch SARS-COV-2 COVID-19 2020-08-16 Completed Unive rsity of MODERNA 12+ YRS 00:00:00 [place] Med ical VACCINE Branch SARS-COV-2 COVID-19 2020-08-16 Completed Unive rsity of MODERNA 12+ YRS 00:00:00 [place] [facility] ical VACCINE Branch SARS-COV-2 COVID-19 2020-08-16 Completed Unive rsity of MODERNA 12+ YRS 00:00:00 [place] Med ical VACCINE Branch SARS-COV-2 COVID-19 2020-08-16 Completed Unive rsity of MODERNA 12+ YRS 00:00:00 [place] Med ical VACCINE Branch SARS-COV-2 COVID-19 2020-08-16 Completed Unive rsity of MODERNA 12+ YRS 00:00:00 [place] Med ical VACCINE Branch SARS-COV-2 COVID-19 2020-08-16 Completed Unive rsity of MODERNA 12+ YRS 00:00:00 [place] [facility] ical VACCINE Branch SARS-COV-2 COVID-19 2020-08-16 Completed Unive rsity of MODERNA 12+ YRS 00:00:00 [place] Med ical VACCINE Branch SARS-COV-2 COVID-19 2020-08-16 Completed Unive rsity of MODERNA 12+ YRS 00:00:00 [place] [facility] ical VACCINE Branch SARS-COV-2 COVID-19 2020-08-16 Completed Unive rsity of MODERNA 12+ YRS 00:00:00 [place] Med ical VACCINE Branch SARS-COV-2 COVID-19 2020-08-16 Completed Unive rsity of MODERNA 12+ YRS 00:00:00 [place] [facility] ical VACCINE Branch SARS-COV-2 COVID-19 2020-08-16 Completed Unive rsity of MODERNA 12+ YRS 00:00:00 [place] [facility] VACCINE Branch Influenza High Dose 2020-03-13 Completed Unive rsity of 00:00:00 [facility] Influenza High Dose 2020-03-13 Completed Unive rsity of 00:00:00 [facility] Influenza High Dose 2020-03-13 Completed Unive rsity of 00:00:00 [facility] Influenza High Dose 2020-03-13 Completed Unive rsity of 00:00:00 [facility] Influenza High Dose 2020-03-13 Completed Unive rsity of 00:00:00 [facility] Influenza High Dose 2020-03-13 Completed Unive rsity of 00:00:00 [facility] Influenza High Dose 2020-03-13 Completed Unive rsity of 00:00:00 [facility] Influenza High Dose 2020-03-13 Completed Unive rsity of 00:00:00 [facility] Influenza High Dose 2020-03-13 Completed Unive rsity of 00:00:00 [facility] Influenza High Dose 2020-03-13 Completed Unive rsity of 00:00:00 [facility] Influenza High Dose 2020-03-13 Completed Unive rsity of 00:00:00 [facility] Influenza High Dose 2020-03-13 Completed Unive rsity of 00:00:00 [facility] Influenza High Dose 2020-03-13 Completed Unive rsity of 00:00:00 [facility] Influenza High Dose 2020-03-13 Completed Unive rsity of 00:00:00 [facility] Influenza High Dose 2020-03-13 Completed Unive rsity of 00:00:00 [facility] Influenza High Dose 2020-03-13 Completed Unive rsity of 00:00:00 [facility] Influenza High Dose 2020-03-13 Completed Unive rsity of 00:00:00 [facility] Influenza High Dose 2020-03-13 Completed Unive rsity of 00:00:00 [facility] Influenza High Dose 2020-03-13 Completed Unive rsity of 00:00:00 [facility] Influenza High Dose 2020-03-13 Completed Unive rsity of 00:00:00 [facility] Influenza High Dose 2020-03-13 Completed Unive rsity of 00:00:00 [facility] Influenza High Dose 2020-03-13 Completed Unive rsity of 00:00:00 [facility] Influenza High Dose 2020-03-13 Completed Unive rsity of 00:00:00 [facility] Influenza High Dose 2019-03-16 Completed Unive rsity of 00:00:00 [facility] Influenza High Dose 2019-03-16 Completed Unive rsity of 00:00:00 [facility] Influenza High Dose 2019-03-16 Completed Unive rsity of 00:00:00 [facility] Influenza High Dose 2019-03-16 Completed Unive rsity of 00:00:00 [facility] Influenza High Dose 2019-03-16 Completed Unive rsity of 00:00:00 [facility] Influenza High Dose 2019-03-16 Completed Unive rsity of 00:00:00 [facility] Influenza High Dose 2019-03-16 Completed Unive rsity of 00:00:00 [facility] Influenza High Dose 2019-03-16 Completed Unive rsity of 00:00:00 [facility] Influenza High Dose 2019-03-16 Completed Unive rsity of 00:00:00 [facility] Influenza High Dose 2019-03-16 Completed Unive rsity of 00:00:00 [facility] Influenza High Dose 2019-03-16 Completed Unive rsity of 00:00:00 [facility] Influenza High Dose 2019-03-16 Completed Unive rsity of 00:00:00 [facility] Influenza High Dose 2019-03-16 Completed Unive rsity of 00:00:00 [facility] Influenza High Dose 2019-03-16 Completed Unive rsity of 00:00:00 [facility] Influenza High Dose 2019-03-16 Completed Unive rsity of 00:00:00 [facility] Influenza High Dose 2019-03-16 Completed Unive rsity of 00:00:00 [facility] Influenza High Dose 2019-03-16 Completed Unive rsity of 00:00:00 [facility] Influenza High Dose 2019-03-16 Completed Unive rsity of 00:00:00 [facility] Influenza High Dose 2019-03-16 Completed Unive rsity of 00:00:00 [facility] Influenza High Dose 2019-03-16 Completed Unive rsity of 00:00:00 [facility] Influenza High Dose 2019-03-16 Completed Unive rsity of 00:00:00 [facility] Influenza High Dose 2019-03-16 Completed Unive rsity of 00:00:00 [facility] Influenza High Dose 2019-03-16 Completed Unive rsity of 00:00:00 [facility] Influenza Virus 2008-03-21 Completed Universit y of Vaccine 00:00:00 [facility] Pneumococcal 2008-03-21 Completed University o f Polysaccharide, 00:00:00 [place] [facility] PPSV23 (PNEUMOVAX) Branch Influenza Virus 2008-03-21 Completed Universit y of Vaccine 00:00:00 [facility] Pneumococcal 2008-03-21 Completed University o f Polysaccharide, 00:00:00 [place] [facility] PPSV23 (PNEUMOVAX) Branch Influenza Virus 2008-03-21 Completed Universit y of Vaccine 00:00:00 [facility] Pneumococcal 2008-03-21 Completed University o f Polysaccharide, 00:00:00 [place] [facility] PPSV23 (PNEUMOVAX) Branch Influenza Virus 2008-03-21 Completed Universit y of Vaccine 00:00:00 [facility] Pneumococcal 2008-03-21 Completed University o f Polysaccharide, 00:00:00 [place] [facility] PPSV23 (PNEUMOVAX) Branch Influenza Virus 2008-03-21 Completed Universit y of Vaccine 00:00:00 [facility] Pneumococcal 2008-03-21 Completed University o f Polysaccharide, 00:00:00 [place] [facility] PPSV23 (PNEUMOVAX) Branch Influenza Virus 2008-03-21 Completed Universit y of Vaccine 00:00:00 [facility] Pneumococcal 2008-03-21 Completed University o f Polysaccharide, 00:00:00 [place] [facility] PPSV23 (PNEUMOVAX) Branch Influenza Virus 2008-03-21 Completed Universit y of Vaccine 00:00:00 [facility] Pneumococcal 2008-03-21 Completed University o f Polysaccharide, 00:00:00 [place] [facility] PPSV23 (PNEUMOVAX) Branch Influenza Virus 2008-03-21 Completed Universit y of Vaccine 00:00:00 [facility] Pneumococcal 2008-03-21 Completed University o f Polysaccharide, 00:00:00 [place] [facility] PPSV23 (PNEUMOVAX) Branch Influenza Virus 2008-03-21 Completed Universit y of Vaccine 00:00:00 [facility] Pneumococcal 2008-03-21 Completed University o f Polysaccharide, 00:00:00 [place] [facility] PPSV23 (PNEUMOVAX) Branch Influenza Virus 2008-03-21 Completed Universit y of Vaccine 00:00:00 [facility] Pneumococcal 2008-03-21 Completed University o f Polysaccharide, 00:00:00 [place] [facility] PPSV23 (PNEUMOVAX) Branch Influenza Virus 2008-03-21 Completed Universit y of Vaccine 00:00:00 [facility] Pneumococcal 2008-03-21 Completed University o f Polysaccharide, 00:00:00 [place] [facility] PPSV23 (PNEUMOVAX) Branch Influenza Virus 2008-03-21 Completed Universit y of Vaccine 00:00:00 [facility] Pneumococcal 2008-03-21 Completed University o f Polysaccharide, 00:00:00 [place] [facility] PPSV23 (PNEUMOVAX) Branch Influenza Virus 2008-03-21 Completed Universit y of Vaccine 00:00:00 [facility] Pneumococcal 2008-03-21 Completed University o f Polysaccharide, 00:00:00 [place] [facility] PPSV23 (PNEUMOVAX) Branch Influenza Virus 2008-03-21 Completed Universit y of Vaccine 00:00:00 [facility] Pneumococcal 2008-03-21 Completed University o f Polysaccharide, 00:00:00 [place] [facility] PPSV23 (PNEUMOVAX) Branch Influenza Virus 2008-03-21 Completed Universit y of Vaccine 00:00:00 [facility] Pneumococcal 2008-03-21 Completed University o f Polysaccharide, 00:00:00 [place] [facility] PPSV23 (PNEUMOVAX) Branch Influenza Virus 2008-03-21 Completed Universit y of Vaccine 00:00:00 [facility] Pneumococcal 2008-03-21 Completed University o f Polysaccharide, 00:00:00 [place] [facility] PPSV23 (PNEUMOVAX) Branch Influenza Virus 2008-03-21 Completed Universit y of Vaccine 00:00:00 [facility] Pneumococcal 2008-03-21 Completed University o f Polysaccharide, 00:00:00 [place] [facility] PPSV23 (PNEUMOVAX) Branch Influenza Virus 2008-03-21 Completed Universit y of Vaccine 00:00:00 [facility] Pneumococcal 2008-03-21 Completed University o f Polysaccharide, 00:00:00 [place] [facility] PPSV23 (PNEUMOVAX) Branch Influenza Virus 2008-03-21 Completed Universit y of Vaccine 00:00:00 [facility] Pneumococcal 2008-03-21 Completed University o f Polysaccharide, 00:00:00 [place] [facility] PPSV23 (PNEUMOVAX) Branch Influenza Virus 2008-03-21 Completed Universit y of Vaccine 00:00:00 [facility] Pneumococcal 2008-03-21 Completed University o f Polysaccharide, 00:00:00 [place] [facility] PPSV23 (PNEUMOVAX) Branch Influenza Virus 2008-03-21 Completed Universit y of Vaccine 00:00:00 [facility] Pneumococcal 2008-03-21 Completed University o f Polysaccharide, 00:00:00 [place] [facility] PPSV23 (PNEUMOVAX) Branch Influenza Virus 2008-03-21 Completed Universit y of Vaccine 00:00:00 [facility] Pneumococcal 2008-03-21 Completed University o f Polysaccharide, 00:00:00 [place] [facility] PPSV23 (PNEUMOVAX) Branch Influenza Virus 2008-03-21 Completed Universit y of Vaccine 00:00:00 [facility] Pneumococcal 2008-03-21 Completed University o f Polysaccharide, 00:00:00 [place] [facility] PPSV23 (PNEUMOVAX) Branch Influenza Virus 2007-04-07 Completed Universit y of Vaccine 00:00:00 [facility] Influenza Virus 2007-04-07 Completed Universit y of Vaccine 00:00:00 [facility] Influenza Virus 2007-04-07 Completed Universit y of Vaccine 00:00:00 [facility] Influenza Virus 2007-04-07 Completed Universit y of Vaccine 00:00:00 [facility] Influenza Virus 2007-04-07 Completed Universit y of Vaccine 00:00:00 [facility] Influenza Virus 2007-04-07 Completed Universit y of Vaccine 00:00:00 [facility] Influenza Virus 2007-04-07 Completed Universit y of Vaccine 00:00:00 [facility] Influenza Virus 2007-04-07 Completed Universit y of Vaccine 00:00:00 [facility] Influenza Virus 2007-04-07 Completed Universit y of Vaccine 00:00:00 [facility] Influenza Virus 2007-04-07 Completed Universit y of Vaccine 00:00:00 [facility] Influenza Virus 2007-04-07 Completed Universit y of Vaccine 00:00:00 [facility] Influenza Virus 2007-04-07 Completed Universit y of Vaccine 00:00:00 [facility] Influenza Virus 2007-04-07 Completed Universit y of Vaccine 00:00:00 [facility] Influenza Virus 2007-04-07 Completed Universit y of Vaccine 00:00:00 [facility] Influenza Virus 2007-04-07 Completed Universit y of Vaccine 00:00:00 [facility] Influenza Virus 2007-04-07 Completed Universit y of Vaccine 00:00:00 [facility] Influenza Virus 2007-04-07 Completed Universit y of Vaccine 00:00:00 [facility] Influenza Virus 2007-04-07 Completed Universit y of Vaccine 00:00:00 [facility] Influenza Virus 2007-04-07 Completed Universit y of Vaccine 00:00:00 [facility] Influenza Virus 2007-04-07 Completed Universit y of Vaccine 00:00:00 [facility] Influenza Virus 2007-04-07 Completed Universit y of Vaccine 00:00:00 [facility] Influenza Virus 2007-04-07 Completed Universit y of Vaccine 00:00:00 [facility] Influenza Virus 2007-04-07 Completed Universit y of Vaccine 00:00:00 [facility] Vital Signs Vital Name Observation Time Observation Value Comments Source Systolic blood 2022-05-04 02:34:00 137 mm[Hg] Univer sity of pressure [facility] Diastolic blood 2022-05-04 02:34:00 57 mm[Hg] Unive rsity of pressure [facility] Heart rate 2022-05-04 02:34:00 64 /min Universi ty of [facility] Body temperature 2022-05-04 02:34:00 36.33 Chasidy [facility] Respiratory rate 2022-05-04 02:34:00 18 /min [facility] Oxygen saturation in 2022-05-04 02:34:00 97 /min [facility] Arterial blood by [facility] Pulse oximetry Branch Body weight 2022-05-03 19:43:00 66 kg Universi ty [facility] BMI 2022-05-03 19:43:00 22.79 kg/m2 Universi ty [facility] Body height 2022-04-04 23:05:00 170.2 cm Universi ty [facility] Systolic blood 2022-04-17 13:15:00 146 mm[Hg] Univer sity of pressure [facility] Diastolic blood 2022-04-17 13:15:00 65 mm[Hg] Unive rsity of pressure [facility] Heart rate 2022-04-17 13:15:00 63 /min Universi ty of [facility] Body temperature 2022-04-17 13:15:00 36.72 Chasidy [facility] ersity [facility] Respiratory rate 2022-04-17 13:15:00 20 /min Univ [facility] Oxygen saturation in 2022-04-17 13:15:00 99 /min University of Arterial blood by [facility] tom Pulse oximetry Branch Body weight 2022-04-17 11:21:00 71.714 kg [facility] BMI 2022-04-17 11:21:00 24.17 kg/m2 [facility] Body height 2022-04-04 23:05:00 170.2 cm [facility] Systolic blood 2022-04-10 16:45:00 151 mm[Hg] Univer sity of pressure [facility] Diastolic blood 2022-04-10 16:45:00 56 mm[Hg] Unive rsity of pressure [facility] Heart rate 2022-04-10 16:45:00 58 /min [facility] Body temperature 2022-04-10 16:45:00 36.39 Chasidy Univ ersity [facility] Respiratory rate 2022-04-10 16:45:00 18 /min Univ [facility] Body weight 2022-04-10 16:45:00 69.5 kg [facility] BMI 2022-04-10 16:45:00 25.90 kg/m2 [facility] Oxygen saturation in 2022-04-10 12:51:00 99 /min University of Arterial blood by [facility] Pulse oximetry Branch Body height 2022-04-04 23:05:00 170.2 cm [facility] Systolic blood 2022-04-08 16:15:00 157 mm[Hg] Univer sity of pressure [facility] Diastolic blood 2022-04-08 16:15:00 72 mm[Hg] Unive rsity of pressure [facility] Heart rate 2022-04-08 16:15:00 53 /min [facility] Respiratory rate 2022-04-08 15:40:00 15 /min Univ ers[facility] Oxygen saturation in 2022-04-08 15:40:00 99 /min University of Arterial blood by [facility] tom Pulse oximetry Branch Body temperature 2022-04-08 15:21:00 36 Chasidy Univ [facility] Body weight 2022-04-06 10:00:00 70.398 kg [facility] BMI 2022-04-06 10:00:00 23.82 kg/m2 [facility] Body height 2022-04-04 23:05:00 170.2 cm [facility] Systolic blood 2022-03-30 01:00:00 123 mm[Hg] Univer sity of pressure [facility] Diastolic blood 2022-03-30 01:00:00 65 mm[Hg] Unive rsity of pressure [facility] Heart rate 2022-03-30 01:00:00 98 /min [facility] Respiratory rate 2022-03-30 01:00:00 19 /min Univ ersity [facility] Oxygen saturation in 2022-03-30 01:00:00 98 /min University of Arterial blood by [email or web address] Pulse oximetry Branch Body temperature 2022-03-29 21:01:00 36.83 Chasidy Univ ersity [facility] Body height 2022-03-29 21:01:00 170.2 cm [facility] Body weight 2022-03-29 21:01:00 73 kg [facility] BMI 2022-03-29 21:01:00 25.21 kg/m2 [facility] Systolic blood 2022-03-26 19:44:00 123 mm[Hg] Univer sity of pressure [facility] Diastolic blood 2022-03-26 19:44:00 60 mm[Hg] Unive rsity of pressure [facility] Heart rate 2022-03-26 19:44:00 60 /min [facility] Body height 2022-03-26 19:44:00 170.2 cm [facility] Body weight 2022-03-26 19:44:00 77.111 kg [facility] BMI 2022-03-26 19:44:00 26.63 kg/m2 [facility] Oxygen saturation in 2022-03-26 19:44:00 98 /min University of Arterial blood by [employer] [facility] Pulse oximetry Branch Systolic blood 2022-01-31 20:07:00 134 mm[Hg] Univer sity of pressure [facility] Diastolic blood 2022-01-31 20:07:00 64 mm[facility]Hg] [facility] Heart rate 2022-01-31 20:07:00 57 /min [facility] Respiratory rate 2022-01-31 20:07:00 21 /min [facility] Body height 2022-01-31 20:07:00 170.2 cm [facility] Body weight 2022-01-31 20:07:00 77.747 kg [facility] BMI 2022-01-31 20:07:00 26.85 kg/m2 [facility] Oxygen saturation in 2022-01-31 20:07:00 99 /min [facility] Arterial blood by [facility] Pulse oximetry [place] Procedures Procedure Date / Time Performing Clinician Source Performed POCT GLUCOSE (AUTOMATED) 2022-05-04 02:41:00 Delfino Granado [facility] POCT GLUCOSE (AUTOMATED) 2022-05-03 22:25:00 Delfino Granado U [facility] POCT GLUCOSE (AUTOMATED) 2022-05-03 20:26:00 Delfino Granado U [facility] POCT GLUCOSE (AUTOMATED) 2022-05-03 03:10:00 Delfino Granado [facility] POCT GLUCOSE (AUTOMATED) 2022-05-02 17:33:00 Delfino Granado [facility] POCT GLUCOSE (AUTOMATED) 2022-05-02 14:27:00 Delfino Granado U [facility] POCT GLUCOSE (AUTOMATED) 2022-05-02 02:06:00 Delfino Granado [facility] POCT GLUCOSE (AUTOMATED) 2022-05-01 23:36:00 Delfino Granado U [facility] POCT GLUCOSE (AUTOMATED) 2022-05-01 19:30:00 [facility]22-05-01 10:29:00 Mendez Molina [facility] o f [facility] MAGNESIUM 2022-05-01 10:29:00 Mendez Molina [place] [facility] BASIC METABOLIC PANEL 2022-05-01 10:29:00 Mendez Molina [facility] (NA, K, CL, CO2, GLUCOSE, Medica l Branch BUN, CREATININE, [place]) CBC WITHOUT DIFF 2022-05-01 10:29:00 Mendez Molnia [facility] POCT GLUCOSE (AUTOMATED) 2022-05-01 01:08:00 [facility] 2022-04-30 21:03:00 [facility]) 2022-04-30 17:41:00 [facility]OMATED) 2022-04-30 13:48:00 [facility]OMATED) 2022-04-30 01:28:00 [facility] ([facility]OMATED) 2022-04-29 20:30:00 [facility] ([facility]OMATED) 2022-04-29 13:51:00 Vann[facility] (AUTOMATED) 2022-04-29 02:28:00 [facility] (AUTOMATED) 2022-04-28 21:29:00 Vann[facility], [facility] (AUTOMATED) 2022-04-28 17:27:00 Vannesa, Delifno U niversity [facility] POCT GLUCOSE (AUTOMATED) 2022-04-28 13:55:00 [facility]) 2022-04-28 03:33:00 V[facility]OMATED) 2022-04-27 23:20:00 [facility] 2022-04-27 23:01:00 Delfino Granado U niversity of [facility] POCT GLUCOSE (AUTOMATED) 2022-04-27 18:05:00 Delfino Granado U [facility]iversity of [facility] POCT GLUCOSE (AUTOMATED) 2022-04-27 13:21:00 Delfino Granado [facility] of [facility] POCT GLUCOSE (AUTOMATED) 2022-04-27 02:00:00 Delfino Granado U [facility] of [facility] POCT GLUCOSE (AUTOMATED) 2022-04-26 23:12:00 Delfino Granado U [facility] of [facility] POCT GLUCOSE (AUTOMATED) 2022-04-26 20:30:00 Delfino Granado [facility] POCT GLUCOSE (AUTOMATED) 2022-04-26 15:26:00 Delfino Granado U [facility] of [facility] POCT GLUCOSE (AUTOMATED) 2022-04-26 01:51:00 Delfino Granado U niversity [facility] POCT GLUCOSE (AUTOMATED) 2022-04-25 22:34:00 Delfino Granado U [facility]iversity of [facility] POCT GLUCOSE (AUTOMATED) 2022-04-25 18:10:00 Delfino Granado U niversity [facility] POCT GLUCOSE (AUTOMATED) 2022-04-25 14:09:00 Delfino Granado U [facility]iversity of [facility] POCT GLUCOSE (AUTOMATED) 2022-04-25 04:00:00 Vannesa Delfino U [facility] POCT GLUCOSE (AUTOMATED) 2022-04-25 02:44:00 Delfino Granado U [facility] POCT GLUCOSE (AUTOMATED) 2022-04-25 02:06:00 Vannesa Delfino U [facility] POCT GLUCOSE (AUTOMATED) 2022-04-24 22:22:00 Vannesa Delfino U [facility] POCT GLUCOSE (AUTOMATED) 2022-04-24 19:06:00 Vannesa, Eric U [facility]iversity of [facility] POST DIALYSIS BUN 2022-04-24 18:08:00 Antonia Langley [facility] POCT GLUCOSE (AUTOMATED) 2022-04-24 18:06:00 Delfino Granado [facility] POCT GLUCOSE (AUTOMATED) 2022-04-24 15:27[facility]00 [facility] 2022-04-24 01:28:00 Delfino Granado [facility] POCT GLUCOSE (AUTOMATED) 2022-04-23 22:16:00 Delfino Granado [facility] POCT GLUCOSE (AUTOMATED) 2022-04-23 18:05:00 Delfino Granado [facility] POCT GLUCOSE (AUTOMATED) 2022-04-23 14:19:00 Delfino Granado [facility] PHOSPHORUS 2022-04-23 06:49:00 [facility] MAGNESIUM 2022-04-23 06:49:00 [facility] BASIC METABOLIC PANEL 2022-04-23 06:49:00 [facility] (NA, K, CL, CO2, GLUCOSE, [place] Medica [facility] Branch BUN, CREATININE, [place]) CBC WITH DIFF 2022-04-23 06:49:00 [facility] POCT GLUCOSE (AUTOMATED) 2022-04-23 03:22:00 Delfino Granado [facility] POCT GLUCOSE (AUTOMATED) 2022-04-22 17:29:00 Delfino Granado [facility] POCT GLUCOSE (AUTOMATED) 2022-04-22 15:02:00 Delfino Granado [facility] POCT GLUCOSE (AUTOMATED) 2022-04-22 13:36:00 Delfino Granado [facility] DME/SUPPLY JUSTIFICATION 2022-04-22 06:01:00 Doctor Unassigned, [facility] [place] [facility] POCT GLUCOSE (AUTOMATED) 2022-04-22 02:45:00 Delfino Granado [facility] POCT GLUCOSE (AUTOMATED) 2022-04-21 23:28:00 Delfino Granado [facility] POCT GLUCOSE (AUTOMATED) 2022-04-21 18:12:00 Delfino Granado [facility] POCT GLUCOSE (AUTOMATED) 2022-04-21 15:09:00 Harjinder Granadoic [facility] CBC WITHOUT DIFF 2022-04-21 12:10:00 Ismael Martínez [facility] BASIC METABOLIC PANEL 2022-04-21 12:09:00 Ismael Martínez [facility] (NA, K, CL, CO2, GLUCOSE, Medica l Branch BUN, CREATININE, [place]) POCT GLUCOSE (AUTOMATED) 2022-04-21 01:35:00 VannesaHarjinderwallace Lizarraga [facility] POCT GLUCOSE (AUTOMATED) 2022-04-20 21:14:00 Vannesa Delfino U [facility] POCT GLUCOSE (AUTOMATED) 2022-04-20 16:47:00 Vannesa, Delfino [facility] POCT GLUCOSE (AUTOMATED) 2022-04-20 14:18:00 Delfino Granado [facility] PHOSPHORUS 2022-04-20 09:34:00 Ismael Martínez [facility] MAGNESIUM 2022-04-20 09:34:[address] [facility] BASIC METABOLIC PANEL 2022-04-20 09:34:00 Ismael Martínez [facility] (NA, K, CL, CO2, GLUCOSE, Medica l Branch BUN, CREATININE, CA) CBC WITHOUT DIFF 2022-04-20 09:34:00 Ismael Martínez [facility] POCT GLUCOSE (AUTOMATED) 2022-04-20 01:30:00 Delfino Granado [facility] POCT GLUCOSE (AUTOMATED) 2022-04-19 22:32:00 Vannesa, Eric [facility] CBC WITHOUT DIFF 2022-04-19 22:01:00 Mendez Molina [facility] POCT GLUCOSE (AUTOMATED) 2022-04-19 16:45:00 Delfino Granado [facility] PREPARE PACKED RBC 2022-04-19 16:38:13 Mendez Molina [facility] POCT GLUCOSE (AUTOMATED) 2022-04-19 13:08:00 Delfino Granado [facility] HB ABO GROUPING 2022-04-19 12:58:00 [facility] BASIC METABOLIC PANEL 2022-04-19 08:47:00 Ismael Martínez [facility] (NA, K, CL, CO2, GLUCOSE, Medica l Branch BUN, CREATININE, CA) CBC WITHOUT DIFF 2022-04-19 08:47:00 Ismael Martínez [facility] POCT GLUCOSE (AUTOMATED) 2022-04-19 02:37:00 Delfino Granado [facility] POCT GLUCOSE (AUTOMATED) 2022-04-18 20:43:00 Delfino Granado [facility] POCT GLUCOSE (AUTOMATED) 2022-04-18 18:31:00 Delfino Granado [facility] POCT GLUCOSE (AUTOMATED) 2022-04-18 18:31:00 Delfino Granado [facility] POCT GLUCOSE (AUTOMATED) 2022-04-18 01:41:00 Delfino Granado [facility] POCT GLUCOSE (AUTOMATED) 2022-04-18 01:41:00 Delfino Granado [facility] POCT GLUCOSE (AUTOMATED) 2022-04-17 21:23:00 Delfino Granado [facility] POCT GLUCOSE (AUTOMATED) 2022-04-17 21:23:00 Delfino Granado [facility] CBC WITHOUT DIFF 2022-04-17 19:49:00 [facility] CBC WITHOUT DIFF 2022-04-17 19:49:00 [facility] SURGICAL PATHOLOGY EXAM 2022-04-17 17:42:00 Delfino Granado [facility] BELOW THE KNEE AMPUTATION 2022-04-17 16:01[facility] THE [facility]EE [facility] 2022-04-17 16:01:00 Delfino Granado [facility] POCT GLUCOSE (AUTOMATED) 2022-04-17 13:16:00 Delfino Granado [facility] POCT GLUCOSE (AUTOMATED) 2022-04-17 13:16:00 Delfino Granado [facility] PHOSPHORUS 2022-04-17 08:43:[address] [facility] MAGNESIUM 2022-04-17 08:43:[address] [facility] BASIC METABOLIC PANEL 2022-04-17 08:43:00 Mauricio [facility] (NA, K, CL, CO2, GLUCOSE, Medica l Branch BUN, CREATININE, [place]) CBC WITHOUT DIFF 2022-04-17 08:43:00 Mauricio [facility] PHOSPHORUS 2022-04-17 08:43:[address] [facility] MAGNESIUM 2022-04-17 08:43:[address] [facility] BASIC METABOLIC PANEL 2022-04-17 08:43:00 Mauricio Ismael [facility] (NA, K, CL, CO2, GLUCOSE, Medica l Branch BUN, CREATININE, [place]) CBC WITHOUT DIFF 2022-04-17 08:43:00 Mauricio [facility] COVID-19 (ID NOW RAPID 2022-04-17 08:36:00 Ismael Martínez [facility] TESTING) Medical Branch LAB ONLY COVID 2022-04-17 08:36:00 Mauricio [facility] COVID-19 (ID NOW RAPID 2022-04-17 08:36:00 Mauricio Ismael [facility] TESTING) Medical Branch LAB ONLY COVID 2022-04-17 08:36:00 Mauricio [facility] POCT GLUCOSE (AUTOMATED) 2022-04-17 02:44:00 Delfino Granado [facility] POCT GLUCOSE (AUTOMATED) 2022-04-17 02:44:00 [facility] [facility] [place] ACTIVATED PARTIAL 2022-04-17 01:36:00 [facility] ACTIVATED PARTIAL 2022-04-17 01:36:00 Sushma, [facility] POCT GLUCOSE (AUTOMATED) 2022-04-17 00:24:00 Delfino Granado [facility] POCT GLUCOSE (AUTOMATED) 2022-04-17 00:24:00 Delfino Granado [facility] ACTIVATED PARTIAL 2022-04-16 17:59:00 Sushma, [facility] ACTIVATED PARTIAL 2022-04-16 17:59:00 [facility] POCT GLUCOSE (AUTOMATED) 2022-04-16 17:58:00 Delfino Granado [facility] POCT GLUCOSE (AUTOMATED) 2022-04-16 17:58:00 Delfino Granado [facility] POCT GLUCOSE (AUTOMATED) 2022-04-16 13:02:00 Delfino Granado [facility] POCT GLUCOSE (AUTOMATED) 2022-04-16 13:02:00 Delfino Granado [facility] BASIC METABOLIC PANEL 2022-04-16 10:04:00 Ester [facility] (NA, K, CL, CO2, GLUCOSE, [facility] BUN, CREATININE, CA) CBC WITH DIFF 2022-04-16 10:04:00 [facility] METABOLIC PANEL 2022-04-16 10:04:00 [facility] (NA, K, CL, CO2, GLUCOSE, [facility] BUN, CREATININE, CA) CBC WITH DIFF 2022-04-16 10:04[facility] 2022-04-16 05:41:00 [facility] [place] (NA, K, CL, CO2, GLUCOSE, [facility] BUN, CREATININE, CA) CBC WITHOUT DIFF 2022-04-16 05:41:00 Taya Wade [facility] ACTIVATED PARTIAL 2022-04-16 05:41:00 Ester [facility] BASIC METABOLIC PANEL 2022-04-16 05:41:00 Taya Wade [facility] (NA, K, CL, CO2, GLUCOSE, [facility] BUN, CREATININE, CA) CBC WITHOUT DIFF 2022-04-16 05:41:00 Taya Wade [facility] ACTIVATED PARTIAL 2022-04-16 05:41:00 Ester [facility] POCT GLUCOSE (AUTOMATED) 2022-04-16 01:51:00 Delfino Granado U [facility] POCT GLUCOSE (AUTOMATED) 2022-04-16 01:51:00 Delfino Granado U [facility] POCT GLUCOSE (AUTOMATED) 2022-04-15 16:40:00 Delfino Granado U [facility] POCT GLUCOSE (AUTOMATED) 2022-04-15 16:40:00 Delfino Granado U [facility] ACTIVATED PARTIAL 2022-04-15 16:37:00 Ester [facility] ACTIVATED PARTIAL 2022-04-15 16:37:00 Ester [facility] POCT GLUCOSE (AUTOMATED) 2022-04-15 13:19:00 Delfino Granado U [facility] POCT GLUCOSE (AUTOMATED) 2022-04-15 13:19:00 Delfino Granado U [facility] BASIC METABOLIC PANEL 2022-04-15 09:00:00 Taya Wade [facility] (NA, K, CL, CO2, GLUCOSE, [facility] BUN, CREATININE, CA) CBC WITHOUT DIFF 2022-04-15 09:00:00 Taya Wade [facility] BASIC METABOLIC PANEL 2022-04-15 09:00:00 Taya Wade [facility] (NA, K, CL, CO2, GLUCOSE, [facility] BUN, CREATININE, CA) CBC WITHOUT DIFF 2022-04-15 09:00:00 Taya Wade [facility] CBC WITHOUT DIFF 2022-04-15 04:22:00 Taya Wade [facility] ACTIVATED PARTIAL 2022-04-15 04:22:00 Ester [facility] CBC WITHOUT DIFF 2022-04-15 04:22:00 Taya Wade [facility] ACTIVATED PARTIAL 2022-04-15 04:22:00 Ester [facility] POCT GLUCOSE (AUTOMATED) 2022-04-15 02:27:00 Delfino Granado [facility] POCT GLUCOSE (AUTOMATED) 2022-04-15 02:27:00 Delfino Granado [facility] POCT GLUCOSE (AUTOMATED) 2022-04-15 00:06:00 Delfino Granado [facility] POCT GLUCOSE (AUTOMATED) 2022-04-15 00:06:00 Delfino Granado [facility] PREPARE PACKED RBC 2022-04-14 18:57:54 Taya Wade [facility] PREPARE PACKED RBC 2022-04-14 18:57:54 Taya Wade [facility] POCT GLUCOSE (AUTOMATED) 2022-04-14 17:17:00 Delfino Granado [facility] POCT GLUCOSE (AUTOMATED) 2022-04-14 17:17:00 Delfino Granado [facility] ACTIVATED PARTIAL 2022-04-14 15:47:00 Ester [facility] HB ABO GROUPING 2022-04-14 15:47:00 Taya Wade [facility] ACTIVATED PARTIAL 2022-04-14 15:47:00 Brandan Norman [facility] HB ABO GROUPING 2022-04-14 15:47:00 Taya Wade [facility] DUPLEX ARTERIAL LEG RIGHT 2022-04-14 14:11:00 Ester Brandan Un [facility] - BY VASCULAR LAB [facility] DUPLEX ARTERIAL LEG RIGHT 2022-04-14 14:11:00 Brandan Norman Un [facility] - BY VASCULAR LAB [facility] POCT GLUCOSE (AUTOMATED) 2022-04-14 13:35:00 Delfino rGanado [facility] POCT GLUCOSE (AUTOMATED) 2022-04-14 13:35:00 Delfino Granado [facility] PHOSPHORUS 2022-04-14 06:05:00 Shantanu [facility] MAGNESIUM 2022-04-14 06:05:00 Shantanu [facility] IONIZED CALCIUM 2022-04-14 06:05:00 Shantanu [facility] BASIC METABOLIC PANEL 2022-04-14 06:05:00 Ester [facility] (NA, K, CL, CO2, GLUCOSE, [facility] BUN, CREATININE, CA) CBC WITH DIFF 2022-04-14 06:05:00 Brandan Norman [facility] ACTIVATED PARTIAL 2022-04-14 06:05:00 Brandan Norman [facility] PHOSPHORUS 2022-04-14 06:05:00 Shantanu [facility] MAGNESIUM 2022-04-14 06:05:00 Shantanu [facility] IONIZED CALCIUM 2022-04-14 06:05:00 Shantanu [facility] BASIC METABOLIC PANEL 2022-04-14 06:05:00 Ester [facility] (NA, K, CL, CO2, GLUCOSE, [facility] BUN, CREATININE, CA) CBC WITH DIFF 2022-04-14 06:05:00 Ester [facility] ACTIVATED PARTIAL 2022-04-14 06:05:00 Jessanna [facility] POCT GLUCOSE (AUTOMATED) 2022-04-14 04:01:00 Delfino Granado [facility] POCT GLUCOSE (AUTOMATED) 2022-04-14 04:01:00 Delfino Granado [facility] POCT GLUCOSE (AUTOMATED) 2022-04-13 23:32:00 Delfino Granado [facility] POCT GLUCOSE (AUTOMATED) 2022-04-13 23:32:00 Delfino Granado [facility] IONIZED CALCIUM 2022-04-13 21:13:00 Shantanu [facility] ACTIVATED PARTIAL 2022-04-13 21:13:00 [facility] IONIZED CALCIUM 2022-04-13 21:13:00 Shantanu [facility] ACTIVATED PARTIAL 2022-04-13 21:13:00 [facility] POCT GLUCOSE (AUTOMATED) 2022-04-13 17:31:00 Delfino Granado [facility] POCT GLUCOSE (AUTOMATED) 2022-04-13 17:31:00 Delfino Granado [facility] PHOSPHORUS 2022-04-13 10:51:00 Lalo Cyrsay [facility] MAGNESIUM 2022-04-13 10:51:00 Bobby Fournier [facility] BASIC METABOLIC PANEL 2022-04-13 10:51:00 Bobby Fournier [facility] (NA, K, CL, CO2, [facility]COSE[facility]AT[facility], CA) INTACT PTH CALCIUM GROUP 2022-04-13 10:51:00 [facility] IRON PANEL 2022-04-13 10:51:00 [facility] CBC WITHOUT DIFF 2022-04-13 10:51:00 [facility] 2022-04-13 10:51:[address] [facility] PHOSPHORUS 2022-04-13 10:51:00 Klarissa [facility] MAGNESIUM 2022-04-13 10:51:00 Bobby Fournier [facility] BASIC METABOLIC PANEL 2022-04-13 10:51:00 Bobby Fournier [facility] (NA, K, CL, CO2, GLUCOSE, [facility] [place] BUN, CREATININE, CA) INTACT PTH CALCIUM GROUP 2022-04-13 10:51:00 [facility] Reba [facility] IRON PANEL 2022-04-13 10:51:00 [facility] CBC WITHOUT DIFF 2022-04-13 10:51:00 Bobby Fournier [facility] ACTIVATED PARTIAL 2022-04-13 10:51:00 [facility] POCT GLUCOSE (AUTOMATED) 2022-04-13 01:41:00 Delfino Granado U [facility] POCT GLUCOSE (AUTOMATED) 2022-04-13 01:41:00 Vannesa, Eric U [facility] POCT GLUCOSE (AUTOMATED) 2022-04-12 22:13:00 Delfino Granado U [facility] POCT GLUCOSE (AUTOMATED) 2022-04-12 22:13:00 Delfino Granado U [facility] ACTIVATED PARTIAL 2022-04-12 19:39:00 [facility] ACTIVATED PARTIAL 2022-04-12 19:39:00 [facility] POCT GLUCOSE (AUTOMATED) 2022-04-12 17:51:00 Delfino Granado U [facility] POCT GLUCOSE (AUTOMATED) 2022-04-12 17:51:00 Delfino Granado U [facility] POCT GLUCOSE (AUTOMATED) 2022-04-12 17:48:00 Delfino Granado U [facility] POCT GLUCOSE (AUTOMATED) 2022-04-12 17:48:00 Delfino Granado [facility] POCT GLUCOSE (AUTOMATED) 2022-04-12 12:28:00 Delfino Granado [facility] POCT GLUCOSE (AUTOMATED) 2022-04-12 12:28:00 Delfino Granado [facility] POCT GLUCOSE (AUTOMATED) 2022-04-12 12:25:00 Delfino Granado Elham [facility] POCT GLUCOSE (AUTOMATED) 2022-04-12 12:25:00 Delfino Granado [facility] ACTIVATED PARTIAL 2022-04-12 11:22:[facility] 2022-04-12 11:22:00 [facility] XR CHEST 1 VW 2022-04-12 09:45:00 Shantanu [facility] XR CHEST 1 VW 2022-04-12 09:45:00 Shantanu [facility] PHOSPHORUS 2022-04-12 08:51:00 Klarissa [facility] MAGNESIUM 2022-04-12 08:51:00 Shantanu [facility] IONIZED CALCIUM 2022-04-12 08:51:00 Shantanu [facility] BASIC METABOLIC PANEL 2022-04-12 08:51:00 Bobby Fournier [facility] (NA, K, CL, CO2, [facility]UCOSE[facility], CREATININE, CA) CBC WITHOUT DIFF 2022-04-12 08:51:00 Shantanu [facility] PHOSPHORUS 2022-04-12 08:51:00 Klarissa [facility] MAGNESIUM 2022-04-12 08:51:00 Shantanu [facility] IONIZED CALCIUM 2022-04-12 08:51:00 Shantanu [facility] BASIC METABOLIC PANEL 2022-04-12 08:51:00 Bobby Fournier [facility] (NA, K, CL, CO2, GLUCOSE, [facility] BUN, CREATININE, CA) CBC WITHOUT DIFF 2022-04-12 08:51:00 Bobby Fournier [facility] ACTIVATED PARTIAL 2022-04-12 05:04:00 Ester [facility] ACTIVATED PARTIAL 2022-04-12 05:04:00 Ester [facility] POCT GLUCOSE (AUTOMATED) 2022-04-12 01:49:00 Delfino Granado [facility] POCT GLUCOSE (AUTOMATED) 2022-04-12 01:49:00 Delfino Granado [facility] POCT GLUCOSE (AUTOMATED) 2022-04-11 22:53:00 Delfino Granado [facility] POCT GLUCOSE (AUTOMATED) 2022-04-11 22:53:00 Delfino Granado [facility] ACTIVATED PARTIAL 2022-04-11 18:14:00 [facility] ACTIVATED PARTIAL 2022-04-11 18:14:00 [facility] ACTIVATED PARTIAL 2022-04-11 18:14:00 [facility] POCT GLUCOSE (AUTOMATED) 2022-04-11 17:45:00 Delfino Granado [facility] POCT GLUCOSE (AUTOMATED) 2022-04-11 17:45:00 Delfino Granado [facility] POCT GLUCOSE (AUTOMATED) 2022-04-11 17:45:00 Delfino Granado [facility] XR CHEST 1 VW 2022-04-11 13:50:00 [facility]W 2022-04-11 13:50:00 Shantanu [facility] XR CHEST 1 VW 2022-04-11 13:50:00 Shantanu [facility] POCT GLUCOSE (AUTOMATED) 2022-04-11 13:35:00 Delfino Granado [facility] POCT GLUCOSE (AUTOMATED) 2022-04-11 13:35:00 Delfino Granado [facility] POCT GLUCOSE (AUTOMATED) 2022-04-11 13:35:00 Delfino Granado [facility] PHOSPHORUS 2022-04-11 10:38:00 Sushma, [facility] MAGNESIUM 2022-04-11 10:38:00 Sushma, [facility] FERRITIN SERUM 2022-04-11 10:38:00 Sushma, [facility] BASIC METABOLIC PANEL 2022-04-11 10:38:00 Sushma, [facility] (NA, K, CL, CO2, GLUCOSE, [facility] BUN, CREATININE, CA) INTACT PTH CALCIUM GROUP 2022-04-11 10:38:00 Sushma, [facility] IRON PANEL 2022-04-11 10:38:00 Sushma, [facility] CBC WITH DIFF 2022-04-11 10:38:00 Sushma, [facility] PHOSPHORUS 2022-04-11 10:38:00 Sushma, [facility] MAGNESIUM 2022-04-11 10:38:00 Sushma, [facility] FERRITIN SERUM 2022-04-11 10:38:00 Sushma, [facility] BASIC METABOLIC PANEL 2022-04-11 10:38:00 Sushma, [facility] (NA, K, CL, CO2, GLUCOSE, [facility] BUN, CREATININE, CA) INTACT PTH CALCIUM GROUP 2022-04-11 10:38:00 Sushma, [facility] IRON PANEL 2022-04-11 10:38:00 Sushma, [facility] CBC WITH DIFF 2022-04-11 10:38:00 Sushma, [facility] PHOSPHORUS 2022-04-11 10:38:00 Sushma, [facility] MAGNESIUM 2022-04-11 10:38:00 Sushma, [facility] FERRITIN SERUM 2022-04-11 10:38:00 Sushma, [facility] BASIC METABOLIC PANEL 2022-04-11 10:38:00 Sushma, [facility] (NA, K, CL, CO2, GLUCOSE, [facility] BUN, CREATININE, CA) INTACT PTH CALCIUM GROUP 2022-04-11 10:38:00 Alek Ordaz [facility] IRON PANEL 2022-04-11 10:38:00 Sushma, [facility] CBC WITH DIFF 2022-04-11 10:38:00 Sushma, [facility] XR KUB 2022-04-11 09:05:00 Sushma, [facility] XR KUB 2022-04-11 09:05:00 Sushma, [facility] XR KUB 2022-04-11 09:05:00 Sushma, [facility] AC PANEL 20 + LACTIC ACID 2022-04-11 05:23:00 Alek Ordaz [facility] AC PANEL 20 + LACTIC ACID 2022-04-11 05:23:00 Alek Ordaz [facility] AC PANEL 20 + LACTIC ACID 2022-04-11 05:23:00 Alek Ordaz [facility] PHOSPHORUS 2022-04-11 05:22:[address] [facility] MAGNESIUM 2022-04-11 05:22:[address] [facility] BASIC METABOLIC PANEL 2022-04-11 05:22:00 Ismael Martínez [facility] (NA, K, CL, CO2, GLUCOSE, [facility] BUN, CREATININE, CA) CBC WITH DIFF 2022-04-11 05:22:[address] [facility] MRSA / MSSA SCREEN BY 2022-04-11 05:22:00 Ismael Martínez [facility] PCR, [facility] PHOSPHORUS 2022-04-11 05:22:00 Sunday [facility] 2022-04-11 05:22:[address] [facility] BASIC METABOLIC PANEL 2022-04-11 05:22:00 Ismael Martínez [facility] (NA, K, CL, CO2, GLUCOSE, [facility] BUN, CREATININE, CA) CBC WITH DIFF 2022-04-11 05:22:00 Ismael Martínez [facility] MRSA / MSSA SCREEN BY 2022-04-11 05:22:00 Ismael Martínez [facility] 2022-04-11 05:22:[address] [facility] MAGNESIUM 2022-04-11 05:22:00 Mauricio Ismael [facility] BASIC METABOLIC PANEL 2022-04-11 05:22:00 Mauricio Ismael [facility] (NA, K, CL, CO2, GLUCOSE, [facility] BUN, CREATININE, CA) CBC WITH DIFF 2022-04-11 05:22:[address] [facility] MRSA / MSSA SCREEN BY 2022-04-11 05:22:[address] [facility] ABG+COOX+NA+K+GLU+CA2+ 2022-04-11 03:34:00 Delfino Granado [facility] ABG+COOX+NA+K+GLU+CA2+ 2022-04-11 03:34:00 Delfino Granado [facility] TRANSFUSE PACKED RBC 2022-04-11 03:00:00 Brandan Norman [facility] TRANSFUSE PACKED RBC 2022-04-11 03:00:00 Brandan Norman [facility] TRANSFUSE PACKED RBC 2022-04-11 03:00:00 Brandan Norman [facility] TRANSFUSE PACKED RBC 2022-04-11 02:42:00 Brandan Norman [facility] TRANSFUSE PACKED RBC 2022-04-11 02:42:00 Brandan Norman [facility] TRANSFUSE PACKED RBC 2022-04-11 02:42:00 Brandan Norman [facility] PREPARE PACKED RBC 2022-04-11 02:31:54 Ester [facility] PREPARE PACKED RBC 2022-04-11 02:31:54 Ester [facility] PREPARE PACKED RBC 2022-04-11 02:31:54 Ester [facility] ABG+COOX+NA+K+GLU+CA2+ 2022-04-11 02:26:00 Delfino Granado [facility] ABG+COOX+NA+K+GLU+CA2+ 2022-04-11 02:26:00 Delfino Granado [facility] ABG+COOX+NA+K+GLU+CA2+ 2022-04-11 02:13:00 Delfino Granado [facility] ABG+COOX+NA+K+GLU+CA2+ 2022-04-11 02:13:00 Delfino Granado [facility] ABG+COOX+NA+K+GLU+CA2+ 2022-04-11 00:27:00 Geraldine Hern[facility]dez [facility] ABG+COOX+NA+K+GLU+CA2+ 2022-04-11 00:27:00 Geraldine Hern[facility]dez [facility] ABG+COOX+NA+K+GLU+CA2+ 2022-04-10 22:19:00 Delfino Granado [facility] ABG+COOX+NA+K+GLU+CA2+ 2022-04-10 22:19:00 Delfino Granado [facility] ABG+COOX+NA+K+GLU+CA2+ 2022-04-10 21:53:00 Delfino Granado [facility] ABG+COOX+NA+K+GLU+CA2+ 2022-04-10 21:53:00 Delfino Granado [facility] ABG+COOX+NA+K+GLU+CA2+ 2022-04-10 20:29:00 Delfino Granado [facility] ABG+COOX+NA+K+GLU+CA2+ 2022-04-10 20:29:00 Delfino Granado [facility] CENTRAL LINE 2022-04-10 19:15:00 Neville Abel [facility] INTUBATION 2022-04-10 19:14:00 Neville Abel [facility] ABG+COOX+NA+K+GLU+CA2+ 2022-04-10 19:12:00 Delfino Granado [facility] ABG+COOX+NA+K+GLU+CA2+ 2022-04-10 19:12:00 Delfino Granado [facility] ARTERIAL LINE 2022-04-10 17:30:00 Neville Abel [facility] ARTERIOGRAM 2022-04-10 16:50:00 [facility]ARTERECTOMY 2022-04-10 16:50:00 Delfino Granado [facility] FEMORAL-DISTAL BYPASS 2022-04-10 16:50:00 [facility] TOE AMPUTATION 2022-04-10 16:50:00 [facility] ARTERIO[facility] 2022-04-10 16:50:00 Vannesa [facility] FEMORAL ENDARTERECTOMY 2022-04-10 16:50:00 Delfino Granado [facility] FEMORAL-DISTAL BYPASS 2022-04-10 16:50:00 [facility] TOE AMPUTATION 2022-04-10 16:50:00 Vannesa [facility] POST DIALYSIS BUN 2022-04-10 16:34:00 Aleksandar Suero [facility] POST DIALYSIS BUN 2022-04-10 16:34:00 Aleksandar Suero [facility] POST DIALYSIS BUN 2022-04-10 16:34:00 Aleksandar Suero [facility] POCT GLUCOSE (AUTOMATED) 2022-04-10 14:34:00 Delfino Granado [facility] POCT GLUCOSE (AUTOMATED) 2022-04-10 14:34:00 Delfino Granado [facility] POCT GLUCOSE (AUTOMATED) 2022-04-10 14:34:00 Delfino Granado [facility] PHOSPHORUS 2022-04-10 09:40:00 Ester [facility] MAGNESIUM 2022-04-10 09:40:00 [facility] BAS[facility] MET[facility]OLIC PANEL 2022-04-10 09:40:00 Ester [facility] (NA, K, CL, CO2, GLUCOSE, [facility] BUN, CREATININE, CA) CBC WITH DIFF 2022-04-10 09:40:00 Ester [facility] PHOSPHORUS 2022-04-10 09:40:00 Ester [facility] MAGNESIUM 2022-04-10 09:40:00 Ester [facility] BASIC METABOLIC PANEL 2022-04-10 09:40:00 Ester [facility] (NA, K, CL, CO2, GLUCOSE, [facility] BUN, CREATININE, CA) CBC WITH DIFF 2022-04-10 09:40:00 Ester [facility] PHOSPHORUS 2022-04-10 09:40:00 Ester [facility] MAGNESIUM 2022-04-10 09:40:00 Ester [facility] BASIC METABOLIC PANEL 2022-04-10 09:40:00 Ester [facility] (NA, K, CL, CO2, GLUCOSE, [facility] BUN, CREATININE, CA) CBC WITH DIFF 2022-04-10 09:40:00 Ester [facility] POCT GLUCOSE (AUTOMATED) 2022-04-10 01:34:00 [facility]) 2022-04-10 01:34:00 [facility] PO[facility]SE (AUTOMATED) 2022-04-10 01:34:00 Delfino Granado [facility] COVID-19 (ID NOW RAPID 2022-04-09 23:46:00 Sahibzada, Brandan [facility] LAB ONLY COVID 2022-04-09 23:46:00 Sahibzada, Brandan [employer] INTERPRETATION [facility] COVID-19 (ID NOW RAPID 2022-04-09 23:46:00 Sahibzada, Brandan [facility] TEST[facility]) [facility] LAB ONLY COVID 2022-04-09 23:46:00 Sahibzada, Brandan [employer] INTERPRETATION [facility] COVID-19 (ID NOW RAPID 2022-04-09 23:46:00 Sahibzada, Brandan [facility] TEST[facility]) [facility] LAB ONLY COVID 2022-04-09 23:46:00 Sahibzada, Brandan [employer] INTERPRETATION [facility] COVID-19 (ID NOW RAPID 2022-04-09 23:46:00 Sahibzada, Brandan [facility] TESTING) [facility] LAB ONLY COVID 2022-04-09 23:46:00 Sahibzada, Brandan [employer] INTERPRETATION [facility] POCT GLUCOSE (AUTOMATED) 2022-04-09 21:25:00 [facility] ([facility]OMATED) 2022-04-09 21:25:00 [facility] PO[facility]SE (AUTOMATED) 2022-04-09 21:25:00 [facility] PO[facility]SE (AUTOMATED) 2022-04-09 21:25:00 Delfino Granado [facility] POCT GLUCOSE (AUTOMATED) 2022-04-09 16:46:00 Delfino Granado [facility] POCT GLUCOSE (AUTOMATED) 2022-04-09 16:46:00 Delfino Granado [facility] POCT GLUCOSE (AUTOMATED) 2022-04-09 16:46:00 Delfino Granado [facility] POCT GLUCOSE (AUTOMATED) 2022-04-09 16:46:00 Delfino Granado [facility] HB ABO GROUPING 2022-04-09 16:05:00 [facility] HB ABO GROUPING 2022-04-09 16:05:00 [facility] HB ABO GROUPING 2022-04-09 16:05:00 [facility] HB ABO GROUPING 2022-04-09 16:05:00 [facility] POCT GLUCOSE (AUTOMATED) 2022-04-09 13:05:00 Delfino Granado [facility] POCT GLUCOSE (AUTOMATED) 2022-04-09 13:05:00 Delfino Granado [facility] POCT GLUCOSE (AUTOMATED) 2022-04-09 13:05:00 Delfino Granado [facility] POCT GLUCOSE (AUTOMATED) 2022-04-09 13:05:00 Delfino Granado [facility] BASIC METABOLIC PANEL 2022-04-09 10:00:00 [facility] (NA, K, CL, CO2, GLUCOSE, [facility] BUN, CREATININE, CA) CBC WITH DIFF 2022-04-09 10:00:00 [facility]OL[facility] 2022-04-09 10:00:00 [facility] (NA, K, CL, CO2, GLUCOSE, [facility] BUN, CREATININE, CA) CBC WITH DIFF 2022-04-09 10:00:00 [facility] BASIC METABOLIC PANEL 2022-04-09 10:00:00 [facility] (NA, K, CL, CO2, GLUCOSE, [facility] BUN, CREATININE, CA) CBC WITH DIFF 2022-04-09 10:00:00 [facility] BASIC METABOLIC PANEL 2022-04-09 10:00:00 [facility] (NA, K, CL, CO2, GLUCOSE, [facility] BUN, CREATININE, CA) CBC WITH DIFF 2022-04-09 10:00:00 [facility] POCT GLUCOSE (AUTOMATED) 2022-04-09 01:29:00 [facility] 2022-04-09 01:29:00 [facility] PO[facility] (AUTOMATED) 2022-04-09 01:29:00 [facility] PO[facility]SE (AUTOMATED) 2022-04-09 01:29:00 [facility] PO[facility]SE (AUTOMATED) 2022-04-08 23:48:00 Delfino Granado [facility] POCT GLUCOSE (AUTOMATED) 2022-04-08 23:48:00 Delfino Granado [facility] POCT GLUCOSE (AUTOMATED) 2022-04-08 23:48:00 Delfino Granado [facility] POCT GLUCOSE (AUTOMATED) 2022-04-08 23:48:00 Delfino Granado [facility] POCT GLUCOSE (AUTOMATED) 2022-04-08 16:50:00 Delfino Granado [facility] POCT GLUCOSE (AUTOMATED) 2022-04-08 16:50:00 [facility]OMATED) 2022-04-08 16:50:00 Delfino Granado [facility] POCT GLUCOSE (AUTOMATED) 2022-04-08 16:50:00 Delfino Granado [facility] FL TIME OR 2022-04-08 15:02:00 [place] [facility] (NON-REPORTABLE) Medical Branch [place] TIME OR 2022-04-08 15:02:00 [place] [facility] (NON-REPORTABLE) Medical [facility] [place] TIME OR 2022-04-08 15:02:00 [place] [facility] (NON-REPORTABLE) Medical Branch FL TIME OR 2022-04-08 15:02:00 [place] [facility] (NON-REPORTABLE) Medical Branch ARTERIOGRAM 2022-04-08 12:51:00 [place] [facility] ANGIOPLASTY 2022-04-08 12:51:00 [place] [facility] VASCULAR STENTING 2022-04-08 12:51:00 [place] [facility] ARTERIOGRAM 2022-04-08 12:51:00 [place] [facility] ANGIOPLASTY 2022-04-08 12:51:00 [place], [facility] VASCULAR STENTING 2022-04-08 12:51:00 [place] [facility] POCT GLUCOSE (AUTOMATED) 2022-04-08 12:39:00 Delfino Granado [facility] POCT GLUCOSE (AUTOMATED) 2022-04-08 12:39:00 Delfino Granado [facility] POCT GLUCOSE (AUTOMATED) 2022-04-08 12:39:00 Delfino Granado [facility] POCT GLUCOSE (AUTOMATED) 2022-04-08 12:39:00 Delfino Granado [facility] BASIC METABOLIC PANEL 2022-04-08 10:49:00 Brandan Norman [facility] (NA, K, CL, CO2, GLUCOSE, [facility] BUN, CREATININE, CA) CBC WITH DIFF 2022-04-08 10:49:00 [facility] BASIC METABOLIC PANEL 2022-04-08 10:49:00 [facility] (NA, K, CL, CO2, GLUCOSE, [facility] BUN, CREATININE, CA) CBC WITH DIFF 2022-04-08 10:49:00 [facility] BASIC METABOLIC PANEL 2022-04-08 10:49:00 [facility] (NA, K, CL, CO2, GLUCOSE, [facility] BUN, CREATININE, CA) CBC WITH DIFF 2022-04-08 10:49:00 [facility] BASIC METABOLIC PANEL 2022-04-08 10:49:00 [facility] (NA, K, CL, CO2, GLUCOSE, [facility] BUN, CREATININE, CA) CBC WITH DIFF 2022-04-08 10:49:00 [facility] POCT GLUCOSE (AUTOMATED) 2022-04-08 01:28:00 Delfino Granado [facility] POCT GLUCOSE (AUTOMATED) 2022-04-08 01:28:00 Delfino Granado [facility] POCT GLUCOSE (AUTOMATED) 2022-04-08 01:28:00 Delfino Granado [facility] POCT GLUCOSE (AUTOMATED) 2022-04-08 01:28:00 Delfino Granado [facility] POCT GLUCOSE (AUTOMATED) 2022-04-07 20:41:00 Delfino Granado [facility] POCT GLUCOSE (AUTOMATED) 2022-04-07 20:41:00 [facility]) 2022-04-07 20:41:00 Delfino Granado [facility] POCT GLUCOSE (AUTOMATED) 2022-04-07 20:41:00 Delfino Granado [facility] POCT GLUCOSE (AUTOMATED) 2022-04-07 16:26:00 Delfino Granado [facility] POCT GLUCOSE (AUTOMATED) 2022-04-07 16:26:00 Delfino Granado [facility] POCT GLUCOSE (AUTOMATED) 2022-04-07 16:26:00 Delfino Granado [facility] POCT GLUCOSE (AUTOMATED) 2022-04-07 16:26:00 Delfino Granado [facility] PHOSPHORUS 2022-04-07 09:59:00 Arabella [facility] MAGNESIUM 2022-04-07 09:59:00 Arabella [facility] BASIC METABOLIC PANEL 2022-04-07 09:59:[address] [facility] (NA, K, CL, CO2, GLUCOSE, Medica l Branch BUN, CREATININE, CA) CBC WITH DIFF 2022-04-07 09:59:00 Arabella [facility] PHOSPHORUS 2022-04-07 09:59:00 Arabella [facility] MAGNESIUM 2022-04-07 09:59:00 Arabella [facility] BASIC METABOLIC PANEL 2022-04-07 09:59:00 [facility] ([facility], K, CL, CO2, GLUCOSE, Medica l Branch BUN, CREATININE, CA) CBC WITH DIFF 2022-04-07 09:59:00 Arabella [facility] PHOSPHORUS 2022-04-07 09:59:00 Arabella [facility] MAGNESIUM 2022-04-07 09:59:00 Arabella [facility] BASIC METABOLIC PANEL 2022-04-07 09:59:[address] [facility] (NA, K, CL, CO2, GLUCOSE, Medica l Branch BUN, CREATININE, CA) CBC WITH DIFF 2022-04-07 09:59:00 Arabella [facility] PHOSPHORUS 2022-04-07 09:59:00 Arabella [facility] MAGNESIUM 2022-04-07 09:59:00 Arabella [facility] BASIC METABOLIC PANEL 2022-04-07 09:59:[address] [facility] (NA, K, CL, CO2, GLUCOSE, Medica l Branch BUN, CREATININE, CA) CBC WITH DIFF 2022-04-07 09:59:00 Arabella [facility] POCT GLUCOSE (AUTOMATED) 2022-04-07 02:16:00 Delfino Granado U [facility] POCT GLUCOSE (AUTOMATED) 2022-04-07 02:16:00 Delfino Granado [facility] POCT GLUCOSE (AUTOMATED) 2022-04-07 02:16:00 Delfino Granado U [facility] POCT GLUCOSE (AUTOMATED) 2022-04-07 02:16:00 Vannesa, Eric U [facility] COVID-19 (ID NOW RAPID 2022-04-06 22:06:00 [facility] TEST[facility] LAB ONLY COVID 2022-04-06 22:06:00 [facility] INTERPRETATION [facility] COVID-19 (ID NOW RAPID 2022-04-06 22:06:00 [facility] TESTING) [facility] LAB ONLY COVID 2022-04-06 22:06:00 [facility] INTERPRETATION [facility] COVID-19 (ID NOW RAPID 2022-04-06 22:06:00 [facility] TESTING) [facility] LAB ONLY COVID 2022-04-06 22:06:00 [facility] INTERPRETATION [facility] COVID-19 (ID NOW RAPID 2022-04-06 22:06:00 Brandan Norman [facility] TESTING) [facility] LAB ONLY COVID 2022-04-06 22:06:[address] [facility] INTERPRETATION [facility] POCT GLUCOSE (AUTOMATED) 2022-04-06 22:03:00 Vannesa Delfino U [facility] POCT GLUCOSE (AUTOMATED) 2022-04-06 22:03:00 Vannesa Delfino U [facility] POCT GLUCOSE (AUTOMATED) 2022-04-06 22:03:00 Vannesa, Delfino U [facility] POCT GLUCOSE (AUTOMATED) 2022-04-06 22:03:00 Vannesa, Delfino U [facility] POCT GLUCOSE (AUTOMATED) 2022-04-06 16:38:00 Vannesa, Delfino U [facility] POCT GLUCOSE (AUTOMATED) 2022-04-06 16:38:00 Vannesa Delfino U [facility] POCT GLUCOSE (AUTOMATED) 2022-04-06 16:38:00 Vannesa, Delfino U [facility] POCT GLUCOSE (AUTOMATED) 2022-04-06 16:38:00 Vannesa, Delfino U [facility] POCT GLUCOSE (AUTOMATED) 2022-04-06 13:17:00 Vannesa, Delfino U [facility] POCT GLUCOSE (AUTOMATED) 2022-04-06 13:17:00 Vannesa Delfino U [facility] POCT GLUCOSE (AUTOMATED) 2022-04-06 13:17:00 Vannesa, Delfino U [facility] POCT GLUCOSE (AUTOMATED) 2022-04-06 13:17:00 Vannesa, Delfino U [facility] BASIC METABOLIC PANEL 2022-04-06 09:35:00 Mara [facility] (NA, K, CL, CO2, GLUCOSE, Medica l Branch BUN, CREATININE, CA) CBC WITH DIFF 2022-04-06 09:35:00 Mara [facility] BASIC METABOLIC PANEL 2022-04-06 09:35:00 [facility] (NA, K, CL, CO2, GLUCOSE, Medica l Branch BUN, CREATININE, CA) CBC WITH DIFF 2022-04-06 09:35:00 [facility] BASIC METABOLIC PANEL 2022-04-06 09:35:00 [facility] (NA, K, CL, CO2, GLUCOSE, Medica l Branch BUN, CREATININE, CA) CBC WITH DIFF 2022-04-06 09:35:00 [facility] BASIC METABOLIC PANEL 2022-04-06 09:35:00 [facility] (NA, K, CL, CO2, GLUCOSE, Medica l Branch BUN, CREATININE, CA) CBC WITH DIFF 2022-04-06 09:35:00 [facility] POCT GLUCOSE (AUTOMATED) 2022-04-06 01:10:00 Brad Granger [facility] POCT GLUCOSE (AUTOMATED) 2022-04-06 01:10:00 Brad Granger [facility] POCT GLUCOSE (AUTOMATED) 2022-04-06 01:10:00 Brad Granger [facility] POCT GLUCOSE (AUTOMATED) 2022-04-06 01:10:00 Brad Granger [facility] POCT GLUCOSE (AUTOMATED) 2022-04-05 21:37:00 Brad Granger [facility] POCT GLUCOSE (AUTOMATED) 2022-04-05 21:37:00 Brad Granger [facility] POCT GLUCOSE (AUTOMATED) 2022-04-05 21:37:00 Brad Granger [facility] POCT GLUCOSE (AUTOMATED) 2022-04-05 21:37:00 [facility] 2022-04-05 18:47:00 George Stack [facility] ANTIBODY [facility] HEPATITIS B SURFACE 2022-04-05 18:47:00 George Stack [facility] ANTIGEN [facility] HEPATITIS B SURFACE 2022-04-05 18:47:00 George Stack [facility] ANTIBODY Medical Branch HEPATITIS B SURFACE 2022-04-05 18:47:00 George Stack [facility] [place] ANTIGEN Medical Branch HEPATITIS B SURFACE 2022-04-05 18:47:00 George Stack [facility] [place] ANTIBODY Medical Branch HEPATITIS B SURFACE 2022-04-05 18:47:00 George Stack [facility] [place] ANTIGEN Medical Branch HEPATITIS B SURFACE 2022-04-05 18:47:00 George Stack [facility] [place] ANTIBODY Medical Branch HEPATITIS B SURFACE 2022-04-05 18:47:00 George Stack [facility] [place] ANTIGEN Medical Branch POCT GLUCOSE (AUTOMATED) 2022-04-05 16:58:00 Brad Granger [facility] [place] [facility] POCT GLUCOSE (AUTOMATED) 2022-04-05 16:58:00 Brad Granger [facility] [place] [facility] POCT GLUCOSE (AUTOMATED) 2022-04-05 16:58:00 Brad Granger [facility] [place] [facility] POCT GLUCOSE (AUTOMATED) 2022-04-05 16:58:00 Brad Granger [facility] [place] [facility] DUPLEX ARTERIAL LEG RIGHT 2022-04-05 13:53:00 Emily Aragon [facility] [place] - BY VASCULAR LAB Medical Branch DUPLEX ARTERIAL LEG RIGHT 2022-04-05 13:53:00 Emily Aragon [facility] [place] - BY VASCULAR LAB Medical Branch DUPLEX ARTERIAL LEG RIGHT 2022-04-05 13:53:00 Emily Aragon [facility] [place] - BY VASCULAR LAB Medical Branch DUPLEX ARTERIAL LEG RIGHT 2022-04-05 13:53:00 Emily Aragon [facility] [place] - BY VASCULAR LAB Medical Branch POCT GLUCOSE (AUTOMATED) 2022-04-05 13:15:00 Brad Granger [facility] [place] [facility] POCT GLUCOSE (AUTOMATED) 2022-04-05 13:15:00 Brad Granger [facility] [place] [facility] POCT GLUCOSE (AUTOMATED) 2022-04-05 13:15:00 Brad Granger Uni [facility] POCT GLUCOSE (AUTOMATED) 2022-04-05 13:15:00 Brad Granger [facility] BASIC METABOLIC PANEL 2022-04-05 09:18:00 Mell Murphy [facility] [place] (NA, K, CL, CO2, GLUCOSE, Medica l Branch BUN, CREATININE, CA) CBC WITH DIFF 2022-04-05 09:18:00 Mell Murphy [facility] BASIC METABOLIC PANEL 2022-04-05 09:18:00 Mell Murphy [facility] [place] (NA, K, CL, CO2, GLUCOSE, Medica l Branch BUN, CREATININE, CA) CBC WITH DIFF 2022-04-05 09:18:00 Jeffrey Melltory Miller [facility] BASIC METABOLIC PANEL 2022-04-05 09:18:00 Mell Murphy [facility] [place] (NA, K, CL, CO2, GLUCOSE, Medica l Branch BUN, CREATININE, CA) CBC WITH DIFF 2022-04-05 09:18:00 Mell Murphy [facility] BASIC METABOLIC PANEL 2022-04-05 09:18:00 Mell Murphy iversity [facility] (NA, K, CL, CO2, GLUCOSE, Medica l Branch BUN, CREATININE, CA) CBC WITH DIFF 2022-04-05 09:18:00 Mell Murphy [facility] DISCLOSURE AND CONSENT, 2022-04-05 05:01:00 Doctor Unassigned, [facility] MEDICAL AND SURGICAL [facility] PROCEDURES DISCLOSURE AND CONSENT, 2022-04-05 05:01:00 Doctor Unassigned, [facility] MEDICAL AND SURGICAL [facility] PROCEDURES DISCLOSURE AND CONSENT, 2022-04-05 05:01:00 Doctor Unassigned, [facility] MEDICAL AND SURGICAL [place] [facility] PROCEDURES DISCLOSURE AND CONSENT, 2022-04-05 05:01:00 Doctor Unassigned, [facility] MEDICAL AND SURGICAL [place] [facility] PROCEDURES POCT GLUCOSE (AUTOMATED) 2022-04-05 03:01:00 Brad Granger [facility] POCT GLUCOSE (AUTOMATED) 2022-04-05 03:01:00 Brad Granger [facility] POCT GLUCOSE (AUTOMATED) 2022-04-05 03:01:00 Brad Granger [facility] POCT GLUCOSE (AUTOMATED) 2022-04-05 03:01:00 Elkin Brad [facility] XR FOOT <3 VW RIGHT 2022-04-04 17:19:47 [facility] FOOT <3 VW RIGHT 2022-04-04 17:19:47 Kimberly [facility]kins [facility] XR FOOT <3 VW RIGHT 2022-04-04 17:19:47 Kimberly Adkins [facility] XR FOOT <3 VW RIGHT 2022-04-04 17:19:47 Kimberly Adkins [facility] PHOSPHORUS 2022-04-04 17:06:00 Mell Murphy [facility] MAGNESIUM 2022-04-04 17:06:00 Mell Murphy [facility] C-REACTIVE PROTEIN 2022-04-04 17:06:00 Kimberly Adkins [facility] COMP. METABOLIC PANEL 2022-04-04 17:06:00 Kimberly Adkins [facility] ([id number]) [facility] LIPID PANEL ([id number])(TOTAL 2022-04-04 17:06:00 Mell Murphy [facility] TRIGLYCERIDES, HDL) SEDIMENTATION RATE 2022-04-04 17:06:00 Kimberly Adkins [facility] CBC WITH DIFF 2022-04-04 17:06:00 Kimberly Adkins [facility] GLYCOSYLATED HEMOGLOBIN 2022-04-04 17:06:00 Mell Murphy [facility] (A1C) [facility] PHOSPHORUS 2022-04-04 17:06:00 Mell Murphy [facility] MAGNESIUM 2022-04-04 17:06:00 Jeffrey Melltory Miller [facility] C-REACTIVE PROTEIN 2022-04-04 17:06:00 Kimberly Adkins [facility] COMP. METABOLIC PANEL 2022-04-04 17:06:00 Kimberly Adkins [facility] ([id number]) Medical Branch LIPID PANEL ([id number])(TOTAL 2022-04-04 17:06:00 Mell Murphy [facility] CHOLESTEROL, Medical Branch TRIGLYCERIDES, HDL) SEDIMENTATION RATE 2022-04-04 17:06:00 Kimberly Adkins [facility] CBC WITH DIFF 2022-04-04 17:06:00 Kimberly Adkins [facility] GLYCOSYLATED HEMOGLOBIN 2022-04-04 17:06:00 Mell Murphy [facility] ([facility] PHOSPHORUS 2022-04-04 17:06:00 Mell Murphy [facility] MAGNESIUM 2022-04-04 17:06:00 Jeffrey Mell Angela [facility] C-REACTIVE PROTEIN 2022-04-04 17:06:00 Kimberly Adkins [facility] COMP. METABOLIC PANEL 2022-04-04 17:06:00 Kimberly Adkins [facility] ([id number]) [facility] Branch LIPID PANEL ([id number])(TOTAL 2022-04-04 17:06:00 Mell Murphy [facility] CHOLESTEROL, Medical Branch TRIGLYCERIDES, HDL) SEDIMENTATION RATE 2022-04-04 17:06:00 Kimberly Adkins [facility] CBC WITH DIFF 2022-04-04 17:06:00 Kimberly Adkins [facility] GLYCOSYLATED HEMOGLOBIN 2022-04-04 17:06:00 Mell Murphy [facility] ([facility] Branch PHOSPHORUS 2022-04-04 17:06:00 Mell Murphy [facility] MAGNESIUM 2022-04-04 17:06:00 Jeffrey Melltory Miller [facility] C-REACTIVE PROTEIN 2022-04-04 17:06:00 Kimberly Adkins [facility] COMP. METABOLIC PANEL 2022-04-04 17:06:00 Kimberly Adkins [facility] ([id number]) [facility] LIPID PANEL (22881)(TOTAL 2022-04-04 17:06:00 Mell Murphy [facility] CHOLESTEROL, Medical Branch TRIGLYCERIDES, HDL) SEDIMENTATION RATE 2022-04-04 17:06:00 Kimberly Adkins [facility] [place] CBC WITH DIFF 2022-04-04 17:06:00 Kimberly Adkins [facility] [place] GLYCOSYLATED HEMOGLOBIN 2022-04-04 17:06:00 Mell Murphy [facility] (A1C) Medical Branch CONSENT/REFUSAL FOR 2022-04-04 16:10:56 Doctor Unassosvaldo, [facility] DIAGNOSIS AND TREATMENT [facility] CONSENT/REFUSAL FOR 2022-04-04 16:10:56 Doctor Unassigned, [facility] DIAGNOSIS AND TREATMENT [facility] CONSENT/REFUSAL FOR 2022-04-04 16:10:56 Doctor Unassigned, [facility] DIAGNOSIS AND TREATMENT [facility] CONSENT/REFUSAL FOR 2022-04-04 16:10:56 Doctor Flori [facility] DIAGNOSIS AND TREATMENT [facility] DISCLOSURE AND CONSENT, 2022-04-04 05:01:00 Doctor Unamalka, [facility] MEDICAL AND SURGICAL [place] [facility] PROCEDURES HOSPITAL ADMISSION 2022-04-04 05:01:00 Doctor Flori [facility] [place] [facility] DISCLOSURE AND CONSENT, 2022-04-04 05:01:00 Doctor Flori [facility] MEDICAL AND SURGICAL [facility] PROCEDURES HOSPITAL ADMISSION 2022-04-04 05:01:00 Doctor Ruby [facility] [place] [facility] DISCLOSURE AND CONSENT, 2022-04-04 05:01:00 Doctor Unadesiraeigned, [facility] MEDICAL AND SURGICAL [facility] PROCEDURES HOSPITAL ADMISSION 2022-04-04 05:01:00 Doctor Ruby [facility] DISCLOSURE AND CONSENT, 2022-04-04 05:01:00 Doctor Unamalka [facility] MEDICAL AND SURGICAL [place] [facility] PROCEDURES HOSPITAL ADMISSION 2022-04-04 05:01:00 Doctor Ruby [facility] [place] CLOSED RX METATARSAL 2022-03-30 01:32:32 Efrem Mcnair [facility] FX Medical Branch URINALYSIS 2022-03-30 01:01:00 Singer [facility] COMP. METABOLIC PANEL 2022-03-29 22:17:00 Efrem Mcnair [facility] ([id number]) Medical Branch CBC WITH DIFF 2022-03-29 22:17:00 Efrem Mcnair [place] [facility] RAPID INFLUENZA A/B 2022-03-29 21:49:00 Efrem Mcnair [facility] COVID-19 (ID NOW RAPID 2022-03-29 21:49:00 Efrem Mcnair [facility] TESTING) Medical Branch XR FOOT <3 VW RIGHT 2022-03-29 21:46:37 Efrem Mcnair [facility] CONSENT/REFUSAL FOR 2022-03-29 20:52:52 Doctor Unassigned, [facility] DIAGNOSIS AND TREATMENT [place] [facility] Encounters Start End Encounter Admission Attending Care Care Encounter Source Date/Time Date/Time Type Type Clinicians Facility Department ID 2021-04-16 Emergency [facility] [id number] Univers 00:49:47 ity [facility] 2021-04-14 Emergency [facility] [id number] Univers 16:30:52 [facility] 2022-08-01 2022-08-01 Outpatient R WILMER [facility] [id number] Univers 15:00:00 15:00:00 SENDIL [facility] 2022-08-01 2022-08-01 Outpatient Alondra GUILLEN [facility] [id number] Univers 15:00:00 15:00:00 SENDIL [facility] 2022-05-06 2022-05-06 Transition JOANNA Elias [id number] Univers 00:00:00 00:00:00 of Care Wanda GR [id number] [id number] [id number] [id number] Branch 2022-04-04 2022-05-03 Inpatient X DELFINO GRANADO [facility] [id number] Univers 11:26:00 23:00:00 [facility] ity of [facility] 2022-04-04 2022-05-03 Hospital Kimberly Adkins [id number] Univers 11:26:00 23:00:00 Encounter Elkin Brad NAKUL [id number] [facility] [id number] [place] [id number] [facility] 0[address] [place] 2022-05-03 2022-05-03 Telephone HERNANDO Galaviz [id number] Univers 00:00:00 00:00:00 Precious HEALTH [id number] it y [place] [id number] Luis Alberto as ETHAN?BLEA [id number] [address] MEDICAL OFFICE BUILDING 2022-04-23 2022-04-23 Telephone [facility] [id number] Univers 00:00:00 00:00:00 , [facility] [id number] i ty of [facility] [id number] [id number] [facility] 205 Branch 2022-04-17 2022-04-17 Surgery Cisco SHAHID [id number] Univers 10:30:00 13:28:00 , Delfino GRANADOSY [id number] it y of [facility] [id number] Luis Alberto as [id number] [facility] 103 Branch 2022-04-10 2022-04-11 Anesthesia Chuck Cohn [id number] Univers 12:30:00 00:30:00 Event Alton Pierrevijay Faustin NAKUL [id number] ity of [facility] [id number] Luis Alberto as [id number] [facility] [facility] [address] 2022-04-10 2022-04-10 Surgery Cisco SHAHID 1.2.840.114 [id number] Univers 11:00:00 17:10:00 , Delfinowallace GRANADOSY 350.1.13.10 it y of [facility] 4.2.7.2.686 Luis Alberto as [phone] [facility] [address] 2022-04-08 2022-04-08 Surgery SHAHID Salvador 1.2.840.114 [id number] Univers 07:15:00 11:16:00 Tyrell MOTA 350.1.13.10 it y of [facility] 4.2.7.2.686 Luis Alberto as [id number] [facility] [address] 2022-04-08 2022-04-08 Telephone [facility] 1.2.184.218 [id number] Univers 00:00:00 00:00:00 Precious HEALTH 350.1.13.10 it y of [place] 4.2.7.2.686 Luis Alberto as ETHAN?BLEA [phone] [address] MEDICAL OFFICE [facility] 2022-03-29 2022-03-29 Emergency X SINGER [facility] ERT [id number] Univers 16:06:00 20:48:00 EFREM nickerson [facility] 2022-03-29 2022-03-29 Emergency [facility] 1.2.836.947 [id number] Univers 16:06:00 20:48:00 Efrem LOU 350.1.13.10 i ty of [place] 4.2.7.2.686 [place] [facility] [phone] [facility] [address] 2022-03-29 2022-03-29 Telephone [facility] 1.2.939.271 [id number] Univers 00:00:00 00:00:00 Precious HEALTH 350.1.13.10 it y [facility] 4.2.7.2.686 Luis Alberto as ETHAN?BLEA [phone] [address] MEDICAL OFFICE [facility] 2022-03-27 2022-03-27 Telephone [facility] 1.2.889.551 [id number] Univers 00:00:00 00:00:00 Precious HEALTH 350.1.13.10 it y of [place] 4.2.7.2.686 Luis Alberto as ETHAN?BLEA [id number] [address] OFFICE [facility] 2022-03-26 2022-03-26 Outpatient R ANASTACIA [facility] [id number] Univers 15:45:00 23:59:00 PRECIOUS ity of [facility] 2022-03-26 2022-03-26 Office [facility] 1.2.840.114 [id number] Univers 14:30:00 15:51:29 Visit Precious HEALTH 350.1.13.10 it y of [place] 4.2.7.2.686 Luis Alberto as ETHAN?BLEA [id number] [address] OFFICE [facility] 2022-03-01 2022-03-01 Refill Suzi, [facility] 1.2.840.114 [id number] Univers 00:00:00 00:00:00 Wondiful A HEALTH 350.1.13.10 ity of [place] 4.2.7.2.686 Luis Alberto as ETHAN?BLEA [phone] [address] OFFICE [facility] 2022-02-09 2022-02-09 Field Manager Lisa, Adc Lab Main [facility] 1.2.8 40.114 [id number] Univers 11:00:00 11:15:00 Visit Pretty Guillen 350.1.13. 10 ity [facility] 4.2.7.2.[place] [phone] [address] 2022-02-09 2022-02-09 Outpatient R WILMER [facility] [id number] Univers 11:00:00 11:00:00 SENDIL ity [facility] 2022-02-07 2022-02-07 [facility] [id number] Univers 16:00:00 23:59:00 SENDIL ity [facility] 2022-02-07 2022-02-07 Out[facility] [id number] Univers 16:00:00 16:00:00 SENDIL ity [facility] 2022-01-31 2022-01-31 Field Manager 2, Adc Lab [facility] 1.2.840.114 [id number] Univers 15:45:00 16:00:00 Visit Pretty Guillen 350.1.13. 10 ity of [place] 4.2.7.2.[place] [id number] Pa dical NAL 353 [facility] 2022-01-31 2022-01-31 Outpatient R WILMER [facility] [id number] Univers 15:00:00 15:29:55 SENDIL ity [facility] 2022-01-31 2022-01-31 Office [facility] 1.2.840.114 [id number] Univers 15:00:00 15:29:55 Visit Sendil Rufino [facility].1.13.10 [facility] 4.2.7.2.[place] [id number] Pa dical NAL 059 [facility] 2022-01-31 2022-01-31 Outpatient R WILMER [facility] [id number] Univers 15:00:00 15:00:00 SENDIL ity [facility] 2022-01-31 2022-01-31 Outpatient R WILMER [facility] [id number] Univers 15:00:00 15:00:00 SENDIL ity [facility] 2022-01-31 2022-01-31 Outpatient R WILMER [facility] [id number] Univers 15:00:00 15:00:00 SENDIL ity [facility] 2022-01-31 2022-01-31 Orders Doctor COPE 1.2.840.114 [id number] Univers 00:00:00 00:00:00 Only Unassigned, NAKUL 350.1.13.10 ity of [place] [facility] 4.2.7.2.686 Luis Alberto as [id number] [address] 2022-01-15 2022-01-15 Orders Doctor ANATOLIY 1.2.840.114 [id number] Univers 00:00:00 00:00:00 Only Unassigned, NAKUL 350.1.13.10 ity of [place] [facility] 4.2.7.2.686 Luis Alberto as [phone] [address] 2022-01-01 2022-01-01 Outpatient R ANASTACIA [facility] [id number] Univers 14:30:00 15:23:56 PRECIOUS ity [facility] 2022-01-01 2022-01-01 Office [facility] 1.2.840.114 [id number] Univers 14:30:00 15:23:56 Visit Precious HEALTH 350.1.13.10 it y of [place] 4.2.7.2.686 Luis Alberto as ETHAN?BLEA [phone] [address] MEDICAL OFFICE [facility] 2022-01-01 2022-01-01 Abstract [facility] 1.2.840.114 [id number] Univers 00:00:00 00:00:00 Precious HEALTH 350.1.13.10 it y of [place] 4.2.7.2.686 Luis Alberto as ETHAN?BLEA [id number] [address] MEDICAL OFFICE [facility] 2021-12-28 2021-12-28 Patient Doctor [facility] 1.2.840.114 [id number] Univers 00:00:00 00:00:00 Secure Msg Unassigned, HEALTH 350.1.13.10 ity of [place] 4.2.7.2.686 Luis Alberto as ETHAN?BLEA [phone] [address] OFFICE [facility] 2021-12-28 2021-12-28 Telephone [facility] 1.2.787.801 [id number] Univers 00:00:00 00:00:00 Precious HEALTH 350.1.13.10 it y of [place] 4.2.7.2.686 Luis Alberto as ETHAN?BLEA [phone] [address] OFFICE [facility] 2021-12-27 2021-12-27 [facility] 1.2.840.114 [id number] Univers 15:10:58 23:59:00 Encounter Precious BLAKE 350.1.13.10 ity of [place] 4.2.7.2.686 [place] [phone] [address] 2021-12-27 2021-12-27 [facility] [id number] Univers 15:10:09 15:09:00 PRECIOUS ity of [facility] 2021-12-27 2021-12-27 [facility] 1.2.840.114 [id number] Univers 15:00:00 15:09:00 Encounter Precious BLAKE 350.1.13.10 ity of [facility] 4.2.7.2.686 [place] [phone] [address] 2021-12-25 2021-12-25 Outpatient [facility] [id number] Univers 16:00:00 16:00:00 SENDIL ity [facility] 2021-12-25 2021-12-25 Outpatient [facility] [id number] Univers 16:00:00 16:00:00 SENDIL [facility] 2021-12-25 2021-12-25 Outpatient [facility] [id number] Univers 14:30:00 14:30:00 PRECIOUS nickerson [facility] 2021-12-04 2021-12-04 Office [facility] 1.2.840.114 [id number] Univers 14:00:00 15:51:48 Visit Precious HEALTH 350.1.13.10 it y of [place] 4.2.7.2.686 Luis Alberto as ETHAN?BLEA [phone] [address] OFFICE [facility] 2021-12-04 2021-12-04 Outpatient Alondra [facility] [id number] Univers 14:00:00 15:51:48 PRECIOUS nickerson [facility] 2021-12-04 2021-12-04 Outpatient [facility] [id number] Univers 14:00:00 14:00:00 PRECIOUSEDILMA nickerson [facility] 2021-10-20 2021-10-20 Refill [facility] 1.2.840.114 [id number] Univers 00:00:00 00:00:00 Wondiful A HEALTH 350.1.13.10 ity of [place] 4.2.7.2.686 Luis Alberto as ETHAN?BLEA [id number] [address] MEDICAL OFFICE [facility] 2021-10-18 2021-10-18 Outpatient [facility] [id number] Univers 15:30:00 16:16:07 SENDIL ity of [facility] 2021-10-18 2021-10-18 Office [facility] 1.2.840.114 [id number] Univers 15:30:00 16:16:07 Visit Pretty BLAKE 350.1.13.10 ity of [place] 4.2.7.2.686 [place] [phone] Pa dical NAL [address] BUILDING 2021-10-11 2021-10-11 Outpatient R [facility] [id number] Univers 09:45:00 09:45:00 ity of [facility] 2021-10-05 2021-10-05 Emergency X CHAOMAN, [facility] ERT [id number] Univers 17:48:00 20:55:00 DEANNA ity of [facility] 2021-10-05 2021-10-05 Emergency Chaoman, TRAUMA 1.2.840.114 [id number] Univers 17:48:00 20:55:00 [facility] 350.1.13.10 it[place] 4[place]2.[place].2.686 [place] [id number] [facility] [address] 2021-09-28 2021-09-28 Orders Doctor ANATOLIY 1.2.840.114 [id number] Univers 00:00:00 00:00:00 Only Unassigned, NAKUL 350.1.13.10 ity of [place] [facility] 4.2.7.2.686 Luis Alberto as [phone] [facility] [address] 2021-09-14 2021-09-14 Refill [facility] 1.2.840.114 [id number] Univers 00:00:00 00:00:00 Michelle [facility] 350.1.13.10 ity of [place] 4.2.7.2.686 [place] [phone] [facility] [address] OFFICE BUILDING 2021-09-11 2021-09-11 Refcarie [facility]A [facility] 1.2.840.114 [id number] Univers 00:00:00 00:00:00 Pretty BLAKE 350.1.13.10 ity of [facility] 4.2.7.2.686 [place] [phone] [facility] 059 [facility] 2021-09-06 2021-09-06 Office STEPHANIE BlancoIT 1.2.840.114 [id number] Univers 16:00:00 16:05:23 Visit [facility] HEALTH 350.1.13.10 ity of [place] 4.2.7.2.686 [place] [id number] [facility] [address] 2021-09-06 2021-09-06 Outpatient R BLANCO, [facility] [id number] Univers 16:00:00 16:05:23 MICHELLE ity of [facility] 2021-09-06 2021-09-06 Outpatient R BLANCO, [facility] [id number] Univers 16:00:00 16:05:23 MICHELLE ity of [facility] 2021-09-06 2021-09-06 Outpatient R BLANCO, [facility] [id number] Univers 16:00:00 16:05:23 MICHELLE ity of [facility] 2021-09-06 2021-09-06 Outpatient R BLANCO, [facility] [id number] Univers 16:00:00 16:00:00 MICHELLE ity of [facility] 2021-09-06 2021-09-[address] [facility] UN[facility]ERSIT 1.2.840.114 [id number] Univers 15:15:00 15:15:00 Visit Pretty Guillen HEALTH 350.1.13. 10 ity of [place]2.7.2.[place] [id number] [address] 2021-09-06 2021-09-[address] [facility] 1.2.840.114 [id number] Univers 15:15:00 15:15:00 Visit Pretty GuillenHMai Vale HEALTH 350.1.13. 10 ity of [place] 4.2.7.2.686 [place] [id number] [facility] [address] 2021-09-03 2021-09-03 Refill Wilmer [facility] 1.2.840.114 [id number] Univers 00:00:00 00:00:00 Pretty RhodaMai BLAKE [facility].1.13.10 [facility] 4.[place].7.2.[place] [phone] Pa dical [facility] 059 [facility] 2021-08-23 2021-08-23 Outpatient R [facility] [id number] Univers 05:22:00 10:08:00 SHANNAN krishan fam [facility] 2021-08-23 2021-08-23 [facility] CHELSEA RahmanNIE 1.2.853.513 [id number] Univers 05:22:00 10:08:00 Encounter Shannan GRANADOSY 350.1.13.10 ity [facility] 4.2.7.2.686 Luis Alberto as [phone] [facility] [address] 2021-08-23 2021-08-23 Outpatient R [facility] [id number] Univers 05:22:00 10:08:00 SHANNAN fam [facility] 2021-08-23 2021-08-23 Surgery CHELSEA RahmanNIE 1.2.840.114 [id number] Univers 07:15:00 09:20:00 Shannan NAKUL 350.1.13.10 i ty [facility] 4.2.7.2.686 Luis Alberto as [phone] [facility] [address] 2021-07-24 2021-07-24 Office Josiah [facility] 1.2.840.114 [id number] Univers 16:00:00 16:41:31 Visit Shannan Lalita JONES 350.1.13.10 ity of [facility] 4.2.7.2.686 [place] [id number] [facility] [address] 2021-07-24 2021-07-24 [facility] [id number] Univers 16:00:00 16:41:31 SHANNAN fam [facility] 2021-07-24 2021-07-24 [facility] [id number] Univers 16:00:00 16:41:31 SHANNAN fam [facility] 2021-07-24 2021-07-[address] [id number] Univers 16:00:00 16:00:00 SHANNAN russell [facility] 2021-06-19 2021-06-19 [facility] [id number] Univers 14:30:00 14:56:00 [facility] 2021-06-19 2021-06-19 [facility] 1.2.840.114 [id number] Univers 14:30:00 14:56:00 Visit Sendil [facility] [place] 350.1.13.10 ity of [place] 4.2.7.2.686 [place] [phone] Pa magno DURAND 059 [facility] 2021-06-19 2021-06-19 Out[facility] [id number] Univers 14:30:00 14:30:00 SENDIL [facility] 2021-06-19 2021-06-19 Outpatient [facility] [id number] Univers 13:15:00 13:15:00 SHANNAN russell [facility] 2021-06-11 2021-06-11 Telephone [facility] 1.2.122.684 [id number] Univers 00:00:00 00:00:00 Sendil [facility]. HEALTH 350.1.13.10 ity of [place] 4.2.7.2.686 Luis Alberto as PROFESSIO [phone] Pa lindanv LADARIUS 044 [facility] ONE 2021-06-04 2021-06-04 Telephone Suzi [facility] 1.2.840.114 [id number] Univers 00:00:00 00:00:00 Wondiful A HEALTH 350.1.13.10 ity of [place] 4.2.7.2.686 Luis Alberto as ETHAN?BLEA [phone] Pa magno WHARTON 044 [facility] 2021-05-31 2021-05-31 Field Manager Lab, Ang - Db [facility] 1.2.840.1 14 [id number] Univers 16:15:00 16:30:00 Visit Samuel Archerful A HEALTH 350.1.13.1 0 ity of [place] 4.2.7.2.686 Luis Alberto as ETHAN?BLEA [phone] Pa magno WHARTON [address] MEDICAL OFFICE BUILDING 2021-05-31 2021-05-31 Outpatient R SUZI [facility] [id number] Univers 15:45:00 16:11:56 WONDIFUL ity o f [facility] 2021-05-31 2021-05-31 Office [facility] 1.2.840.114 [id number] Univers 15:45:00 16:11:56 Visit Wondiful A HEALTH 350.1.13.10 ity of [place] 4.2.7.2.686 Luis Alberto as ETHAN?BLEA [phone] Pa magno WHARTON 044 [facility] OFFICE [facility] 2021-05-30 2021-05-30 Refcarie [facility] 1.2.840.114 [id number] Univers 00:00:00 00:00:00 Wondiful A HEALTH 350.1.13.10 ity of [place] 4.2.7.2.686 Luis Alberto as PROFESSIO [phone] [facility] DURAND [address] [place] [address] OFFICE [facility] ONE 2021-05-04 2021-05-04 [facility] 1.2.840.114 [id number] Univers 00:00:00 00:00:00 Wondiful A HEALTH 350.1.13.10 ity of [place] 4.2.7.2.686 Luis Alberto as PROFESSIO [phone] [facility] DURAND [address] [place] [address] OFFICE [facility] ONE 2021-05-03 2021-05-03 [facility] 1.2.840.114 [id number] Univers 00:00:00 00:00:00 Wondiful A HEALTH 350.1.13.10 ity of [place] 4.2.7.2.686 Luis Alberto as PROFESSIO [phone] [facility] LADARIUS [address] [place] [address] OFFICE [facility] ONE 2021-04-05 2021-04-05 [facility] 1.2.840.114 [id number] [facility] 13:58:34 23:59:00 Encounter Pretty Joy [place] 350.1.13.10 ity of [place]2.[place].2.686 [place] Profess[place] [phone] [facility] 843 [facility] 2021-04-05 2021-04-05 Outpatient R WILMER, [facility] [id number] Univers 14:00:00 14:00:00 SENDIL ity [facility] 2021-04-03 2021-04-03 Outpatient R GISELL, [facility] [id number] Univers 09:30:00 09:30:00 [facility]IO [facility] 2021-04-03 2021-04-03 Bacilio [facility] 1.2.840.114 [id number] Univers 00:00:00 00:00:00 Wondiful A Health 350.1.13.10 ity of [place] 4.2.7.2.686 Luis Alberto as Professio [phone] [facility] [address] [place] Office [facility] One 2021-03-13 2021-03-13 Office [facility], [facility] 1.2.840.114 [id number] Univers 14:40:07 16:03:40 Visit [facility] 350.1.13.10 ity [place].2.[place] [phone] [address] 2021-03-13 2021-03-13 Office [facility], [facility] 1.2.840.114 [id number] Univers 14:40:07 16:03:40 Visit [facility] HEALTH 350.1.13.10 ity of [place].2.[place] [id number] [address] 2021-03-13 2021-03-13 Outpatient R JOSIAH [facility] [id number] Univers 14:30:00 14:30:00 SHANNAN nickerson o f [facility] 2021-03-10 2021-03-10 Bacilio [facility] 1.2.840.114 [id number] Univers 00:00:00 00:00:00 Wondiful A Health 350.1.13.10 ity of [place] 4.2.7.2.686 Luis Alberto as Professio [phone] [address] Office [facility] 2021-03-08 2021-03-08 Telephone Wilmer [facility] 1.2.680.790 [id number] Univers 00:00:00 00:00:00 Sendil Rufino Blake 350.1.13.10 ity of [place].2.[place] [phone] [facility] [address] [place] [address] 2021-03-06 2021-03-06 Office Wilmer [facility] 1.2.840.114 [id number] Univers 09:34:37 10:34:22 Visit Sendil Rufino Blake 350.1.13.10 ity of [place] 4.[place].7.2.686 [place] Profess[place] [id number] [address] 2021-03-06 2021-03-06 Outpatient R WILMER [facility] [id number] Univers 09:30:00 09:30:00 SENDIL adelaiday [facility] 2021-03-06 2021-03-06 Orders Doctor ANATOLIY 1.2.840.114 [id number] Univers 00:00:00 00:00:00 Only Unassigned, NAKUL 350.1.13.10 ity of [place] [facility] 4.2.7.2.686 Luis Alberto as [phone] [address] 2021-01-30 2021-01-30 Outpatient R WILMER [facility] [id number] Univers 00:00:00 00:00:00 SENDIL krishan [facility] 2021-01-18 2021-01-18 Outpatient R WILMER [facility] [id number] Univers 09:00:00 09:00:00 SENDIL krishan [facility] 2021-01-09 2021-01-09 Outpatient Alondra RAHMAN [facility] [id number] Univers 14:45:00 14:45:00 SHANNAN russell [facility] 2021-01-09 2021-01-09 Outpatient Alondra RAHMAN [facility] [id number] Univers 14:45:00 14:45:00 SHANNAN russell [facility] 2021-01-02 2021-01-02 Outpatient R SUZI, [facility] [id number] Univers 10:30:00 10:30:00 WONDIFUL ity o f [facility] 2020-12-19 2020-12-19 Outpatient R LESLEY [facility] [id number] Univers 11:00:00 11:00:00 RITESH ity o f [facility] 2020-12-07 2020-12-07 Outpatient R NANCYMARIA GUADALUPE, [facility] [id number] Univers 07:00:00 07:00:00 AFAQ ity [facility] 2020-11-28 2020-11-28 Outpatient R OGNIEVESTianna, [facility] [id number] Univers 09:15:00 09:15:00 MAURILIO [facility] 2020-11-14 2020-11-14 Outpatient R [facility] [id number] Univers 08:00:00 08:00:00 ity [facility] 2020-10-31 2020-10-31 Outpatient R WILMER, [facility] [id number] Univers 13:00:00 13:00:00 SENDIL ity [facility] 2020-10-03 2020-10-03 Outpatient R LESLEY [facility] [id number] Univers 09:20:00 09:20:00 RITESH ity o [facility] 2020-07-27 2020-07-27 Outpatient R SUZI, [facility] [id number] Univers 15:45:00 15:45:00 WONDIFUL ity o f [facility] 2020-07-18 2020-07-18 Outpatient R WILMER, [facility] [id number] Univers 14:00:00 14:00:00 SENDIL ity [facility] 2020-07-11 2020-07-11 Outpatient R KAYLEY, [facility] [id number] Univers 09:00:00 23:59:00 QIAHARMONYJUN ity o [facility] 2020-07-07 2020-07-07 Outpatient R WILMER, [facility] [id number] Univers 11:30:00 11:30:00 SENDIL ity [facility] 2020-06-292020-06-29 Outpatient R SUZI [facility] [id number] Univers 11:00:00 11:00:00 WONDIFUL ity o f [facility] 2020-04-04 2020-04-04 Outpatient R SUZI [facility] [id number] Univers 10:00:00 10:00:00 WONDIFUL ity o f [facility] 2020-03-28 2020-03-28 Outpatient R SUZI [facility] [id number] Univers 10:30:00 10:30:00 WONDIFUL ity o f [facility] 2020-03-09 2020-03-09 Outpatient R SUZI [facility] [id number] Univers 08:00:00 08:00:00 WONDIFUL ity o f [facility] 2020-02-09 2020-02-09 Refcarie [facility] 1.2.840.114 [id number] 00:00:00 00:00:00 Wondiful A Health 350.1.13.10 [place] 4.2.7.2.686 Professio [phone] nal [facility] Office [facility] 2020-02-01 2020-02-01 Telephone [facility] 1.2.110.919 [id number] 00:00:00 00:00:00 Pretty [place] 350.1.13.10 [place] 4.2.7.2.686 Professio [phone] [address] 2020-01-31 2020-01-31 [facility] [id number] 00:00:00 00:00:00 [place] 350.1.13.10 [place] 4.2.7.2.686 Professio [phone] [address] 2020-01-28 2020-01-28 Orders Doctor ANATOLIY 1.2.840.114 [id number] 00:00:00 00:00:00 Only Unassigned, NAKUL 350.1.13.10 [place] [facility] [id number] [id number] 2020-01-24 2020-01-24 [facility]phone [facility] [id number] 00:00:00 00:00:00 [place] [facility] 350.1.13.10 [place] 4.2.7.2.686 [place] [phone] Medical [address] 2020-01-20 2020-01-20 Field Manager Josee Gonzalez [facility] 1.2.840.114 [id number] 08:17:04 08:32:04 Visit Lab Main Lou 350.1.13.10 [place] 4.2.7.2.686 Professio [phone] [address] 2020-01-20 2020-01-20 [facility] [id number] Univers 08:15:00 08:15:00 SENDIL [facility] 2020-01-20 2020-01-20 Orders Doctor ANATOLIY 1.2.840.114 [id number] 00:00:00 00:00:00 Only Unassigned, NAKUL 350.1.13.10 [place] [facility] 4.2.7.2.686 [phone] [facility] 2019-12-23 2019-12-23 [facility] 1.2.840.114 [id number] 08:30:34 10:02:10 [facility] [place] 350.1.13.10 [place] 4.2.7.2.686 Professio [phone] [address] 2019-12-23 2019-12-23 Outpatient R WILMER [facility] [id number] Univers 09:00:00 09:00:00 SENDIL krishan [facility] 2019-12-09 2019-12-09 Outpatient R JOSIAH [facility] [id number] Univers 09:00:00 09:00:00 SHANNAN russell [facility] 2019-11-16 2019-11-16 Outpatient R JOSIAH [facility] [id number] Univers 08:30:00 08:30:00 SHANNAN russell [facility] 2019-09-21 2019-09-21 Outpatient R JOSE [facility] [id number] Univers 10:00:00 10:00:00 LEO nickerson [facility] 2019-09-09 2019-09-09 Outpatient R SUZI, [facility] [id number] Univers 11:00:00 11:00:00 WONDIFUL ity o f [facility] 2019-08-12 2019-08-12 Outpatient R JOSIAH [facility] [id number] Univers 08:30:00 08:30:00 SHANNAN ity o f [facility] 2019-06-29 2019-06-29 Outpatient R WILMER [facility] [id number] Univers 10:45:00 10:45:00 SENDIL [facility] 2019-04-08 2019-04-08 Outpatient R WILMER [facility] [id number] [facility] 07:53[facility]53[facility]-23 Outpatient R JOSE [facility] [id number] Univers 10:00:00 10:26:47 [facility] 2019-02-08 2019-02-09 [facility] [id number] Univers 04:57:00 17:49:00 LEO [facility] 2019-02-05 2019-02-05 Emergency [facility] ERT [id number] Univers 12:14:28 15:52:00 , VITALY [facility] 2018-12-15 2018-12-15 Outpatient R LA [facility] [id number] Univers 10:00:00 11:12:44 JOSE L [facility] 2018-12-10 2018-12-10 Outpatient R SUZI, [facility] [id number] Univers 10:30:00 10:30:00 WONDIFUL ity o f [facility] 2017-05-27 2017-05-27 Outpatient R SREE [facility] [place] [id number] Univers 10:47:00 20:35:00 BLAZE [facility] Results Test Description Test Time Test Comments Results Result Comments Source POCT GLUCOSE (AUTOMATED) 2022-05-04 02:42:11 Test Item Value Reference Range Interpretation Comme nts POCT GLU (test code = 6952672502) 134 mg/dL 70-110 H Lab Interpretation (test code = 39456-9) [facility] 22:29:04 Test Item Value Reference Range Interpretation Comments POCT GLU (test code = 4832614060) 148 mg/dL 70-110 H Lab Interpretation (test code = Abnormal 48890-2) [facility] GLUCOSE (AUTOMATED)2022-05-03 20:28:48 Test Item Value Reference Range Interpretation Comments POCT GLU (test code = 4712862909) 53 mg/dL 70-110 L Lab Interpretation (test code = Abnormal 72387-2) [facility] GLUCOSE (AUTOMATED)2022-05-03 03:10:42 Test Item Value Reference Range Interpretation Comments POCT GLU (test code = 5752400483) 99 mg/dL 70-110 Lab Interpretation (test code = Normal 38663-2) [facility] GLUCOSE (AUTOMATED)2022-05-02 17:34:42 Test Item Value Reference Range Interpretation Comments POCT GLU (test code = 0275373457) 136 mg/dL 70-110 H Lab Interpretation (test code = Abnormal 80956-1) [facility] GLUCOSE (AUTOMATED)2022-05-02 14:28:23 Test Item Value Reference Range Interpretation Comments POCT GLU (test code = 2175216505) 109 mg/dL 70-110 Lab Interpretation (test code = Normal 58683-6) [facility] GLUCOSE (AUTOMATED)2022-05-02 02:07:55 Test Item Value Reference Range Interpretation Comments POCT GLU (test code = 8228720446) 119 mg/dL 70-110 H Lab Interpretation (test code = Abnormal 83263-3) [facility] GLUCOSE (AUTOMATED)2022-05-01 23:37:01 Test Item Value Reference Range Interpretation Comments POCT GLU (test code = 116 mg/dL 70-110 H Notifi ed Provider [id number]) Lab Interpretation (test Abnormal code = 30298-0) [facility] GLUCOSE (AUTOMATED)2022-05-01 19:33:03 Test Item Value Reference Range Interpretation Comments POCT GLU (test code = 114 mg/dL 70-110 H Notifi ed Provider [id number]) Lab Interpretation (test Abnormal code = 20216-8) [facility] METABOLIC PANEL (NA, K, CL, CO2, GLUCOSE, BUN, CREATININE, CA)2022-05-01 11:15:51 Test Item Value Reference Range Interpretation Comments NA (test code = 128 mmol/L 135-145 L 7785187662) K (test code = 3.9 mmol/L 3.5-5.0 6666527755) CL (test code = 92 mmol/L 98-108 L 4494155556) CO2 TOTAL (test code = 29 mmol/L 23-31 5384750095) AGAP (test code = 2-16 6227238699) BUN (test code = 34 mg/dL 7-23 H 8603057808) GLUCOSE (test code = 122 mg/dL 70-110 H 1423283682) CREATININE (test code = 5.81 mg/dL 0.60-1.25 H 3118953150) CALCIUM (test code = 9.3 mg/dL 8.6-10.6 9907882456) eGFR (test code = mL/min/1.73m2 9956498241) MARINO (test code = MARINO) Association of Glomerular Filtration Rate (GFR) and Staging of Kidney Disease* + --+ --+ ------+| GFR (mL/min/1.73 m2) ?| With Kidney Damage ?| ?Without Kidney Damage+ --------+ --------+ +| ?>90 ?| ?Stage one ?| ? Normal ?+ ---+ ---+ -------+| ?60-89 ?| ?Stage two ?| ? Decreased GFR ? + --+ --+ ------+| ?30-59 ?| ?Stage three ?| ? Stage three ? + --+ --+ ------+| ?15-29 ?| ?Stage four ? | ? Stage four ?+ ---+ ---+ -------+| ?<15 (or dialysis) ? ?| ?Stage five ? | ? Stage five ?+ ---+ ---+ -------+ *Each stage assumes the associated GFR level has been in effect for at least three months. ?Stages 1 to 5, with or without kidney disease, indicate chronic kidney disease. Notes: Determination of stages one and two (with eGFR >59mL/min/1.73 m2) requires estimation of kidney damage for at least three months as defined by structural or functional abnormalities of the kidney, manifested by either:Pathological abnormalities or Markers of kidney damage (including abnormalities in the composition of the blood or urine or abnormalities in imaging tests). Lab Interpretation Abnormal (test code = 82867-0) [facility] 11:15:51 Test Item Value Reference Range Interpretation Comments MAGNESIUM (test code = 7711895552) 2.6 mg/dL 1.7-2.4 H Lab Interpretation (test code = Abnormal 56466-4) [facility]22-[facility]-16 11:15:51 Test Item Value Reference Range Interpretation Comments PHOSPHORUS (test code = 6921779184) 4.5 mg/dL 2.5-5.0 Lab Interpretation (test code = Normal 97322-0) [facility] WITHOUT [id number] 10:39:07 Test Item Value Reference Range Interpretation Comments WBC (test code = 6690-2) See_Comment [A utomated message] The system [employer] generated this result transmit rudolph reference range : 4.20 - 10.70 10*3/?L. The reference range was not used to interpret this result as normal/abnormal . RBC (test code = 789-8) See_Comment L [Au tomated message] The system [employer] generated this result transmit rudolph reference range : 4.26 - 5.52 10* 6/?L. The reference r adama was not used to interpret this result as normal/abnormal . HGB (test code = 718-7) 8.4 g/dL 12.2-16.4 L HCT (test code = 4544-3) 26.7 % 38.4-49.3 L MCH (test code = 785-6) 28.1 pg 26.1-32.7 MCV (test code = 787-2) 89.3 fL 81.7-95.6 MCHC (test code = 786-4) 31.5 g/dL 31.2-35.0 PLT (test code = 777-3) See_Comment [Au tomated message] The system [employer] generated this result transmit rudolph reference range : 150 - 328 10*3/?L. The reference range was not used to interpret this result as normal/abnormal . MPV (test code = 11.0 fL 9.8-13.0 14536-5) RDW-CV (test code = 15.3 % 12.1-15.4 788-0) RDW-SD (test code = 50.4 fL 38.5-51.6 20905-9) NRBC x10^3 (test code = See_Comment [Au tomated message] 2123357354) The system Rico h generated this result transmit rudolph reference range : 10*3/?L. The reference range was not used to interpret this result as normal/abnormal . NRBC/100 WBC (test code See_Comment [Au tomated message] = 9364414180) The system [employer] generated this result transmit rudolph reference range : 0.0 - 10.0 /100 WBC s. The reference r adama was not used to interpret this result as normal/abnormal . IPF % (test code = 8448803832) Lab Interpretation (test Abnormal code = 45341-2) [facility] GLUCOSE (AUTOMATED)2022-05-01 01:09:21 Test Item Value Reference Range Interpretation Comments POCT GLU (test code = 3353593949) 68 mg/dL 70-110 L Lab Interpretation (test code = Abnormal 46056-1) [facility] GLUCOSE (AUTOMATED)2022-04-30 21:04:09 Test Item Value Reference Range Interpretation Comments POCT GLU (test code = 75 mg/dL 70-110 Notifi ed Provider [id number]) Lab Interpretation (test Normal code = 82657-3) [facility] GLUCOSE (AUTOMATED)2022-04-30 17:42:13 Test Item Value Reference Range Interpretation Comments POCT GLU (test code = 107 mg/dL 70-110 Notifi ed Provider [id number]) Lab Interpretation (test Normal code = 79273-4) [facility] GLUCOSE (AUTOMATED)2022-04-30 13:50:31 Test Item Value Reference Range Interpretation Comments POCT GLU (test code = 92 mg/dL 70-110 Notifi ed Provider [id number]) Lab Interpretation (test Normal code = 04238-3) [facility] GLUCOSE (AUTOMATED)2022-04-30 01:29:31 Test Item Value Reference Range Interpretation Comments POCT GLU (test code = 6747157000) 107 mg/dL 70-110 Lab Interpretation (test code = Normal 48386-0) [facility] GLUCOSE (AUTOMATED)2022-04-29 20:55:32 Test Item Value Reference Range Interpretation Comments POCT GLU (test code = 8828481670) 80 mg/dL 70-110 Lab Interpretation (test code = Normal 87134-8) [facility] GLUCOSE (AUTOMATED)2022-04-29 13:59:58 Test Item Value Reference Range Interpretation Comments POCT GLU (test code = 3048408997) 70 mg/dL 70-110 Lab Interpretation (test code = Normal 70512-8) [facility] GLUCOSE (AUTOMATED)2022-04-29 02:51:57 Test Item Value Reference Range Interpretation Comments POCT GLU (test code = 4513557436) 90 mg/dL 70-110 Lab Interpretation (test code = Normal 51762-9) [facility] GLUCOSE (AUTOMATED)2022-04-28 21:30:52 Test Item Value Reference Range Interpretation Comments POCT GLU (test code = 113 mg/dL 70-110 H Notifi ed Provider [id number]) Lab Interpretation (test Abnormal code = 67431-7) [facility] GLUCOSE (AUTOMATED)2022-04-28 17:28:27 Test Item Value Reference Range Interpretation Comments POCT GLU (test code = 108 mg/dL 70-110 Notifi ed Provider [id number]) Lab Interpretation (test Normal code = 89705-3) [facility] GLUCOSE (AUTOMATED)2022-04-28 13:57:06 Test Item Value Reference Range Interpretation Comments POCT GLU (test code = 88 mg/dL 70-110 Notifi ed Provider [id number]) Lab Interpretation (test Normal code = 14164-2) [facility] GLUCOSE (AUTOMATED)2022-04-28 03:36:17 Test Item Value Reference Range Interpretation Comments POCT GLU (test code = 3422590687) 103 mg/dL 70-110 Lab Interpretation (test code = Normal 46048-6) [facility] GLUCOSE (AUTOMATED)2022-04-27 23:21:09 Test Item Value Reference Range Interpretation Comments POCT GLU (test code = 2776662989) 71 mg/dL 70-110 Lab Interpretation (test code = Normal 86913-7) [facility] GLUCOSE (AUTOMATED)2022-04-27 23:02:58 Test Item Value Reference Range Interpretation Comments POCT GLU (test code = 1111663219) 66 mg/dL 70-110 L Lab Interpretation (test code = Abnormal 30948-1) [facility] 18:06:34 Test Item Value Reference Range Interpretation Comments POCT GLU (test code = 3321917855) 75 mg/dL 70-110 [facility] Interpretation (test code = Normal 66100-1[facility]:23:55 Test Item Value Reference Range Interpretation Comments POCT GLU (test code = 9169516450) 70 mg/dL 70-110 Lab Interpretation (test code = Normal 51784-6) [facility] 02:11:35 Test Item Value Reference Range Interpretation Comments POCT GLU (test code = 3694581846) 100 mg/dL 70-110 Lab Interpretation (test code = Normal 08191-1) [facility] 23:13:24 Test Item Value Reference Range Interpretation Comments POCT GLU (test code = 120 mg/dL 70-110 H Notifi ed Provider [id number]) Lab Interpretation (test Abnormal code = 96328-7) [facility] 20:31:29 Test Item Value Reference Range Interpretation Comments POCT GLU (test code = 77 mg/dL 70-110 Notifi ed Provider [id number]) Lab Interpretation (test Normal code = 34162-8) [facility] 15:28:09 Test Item Value Reference Range Interpretation Comments POCT GLU (test code = 8981007901) 86 mg/dL 70-110 Lab Interpretation (test code = Normal 89802-1) [facility] 01:53:21 Test Item Value Reference Range Interpretation Comments POCT GLU (test code = 2854059183) 136 mg/dL 70-110 H Lab Interpretation (test code = Abnormal 26024-4) [facility] 22:35:47 Test Item Value Reference Range Interpretation Comments POCT GLU (test code = 2354683490) 140 mg/dL 70-110 H Lab Interpretation (test code = Abnormal 10564-7) [facility] GLUCOSE (AUTOMATED)2022-04-25 18:11:27 Test Item Value Reference Range Interpretation Comments POCT GLU (test code = 1389460449) 138 mg/dL 70-110 H Lab Interpretation (test code = Abnormal 10943-3) [facility] GLUCOSE (AUTOMATED)2022-04-25 14:25:21 Test Item Value Reference Range Interpretation Comments POCT GLU (test code = 2147328244) 114 mg/dL 70-110 H Lab Interpretation (test code = Abnormal 59149-5) [facility] GLUCOSE (AUTOMATED)2022-04-25 04:01:33 Test Item Value Reference Range Interpretation Comments POCT GLU (test code = 6967379549) 104 mg/dL 70-110 Lab Interpretation (test code = Normal 26863-2) [facility] GLUCOSE (AUTOMATED)2022-04-25 02:47:09 Test Item Value Reference Range Interpretation Comments POCT GLU (test code = 4893098781) 96 mg/dL 70-110 Lab Interpretation (test code = Normal 21654-0) [facility] GLUCOSE (AUTOMATED)2022-04-25 02:08:15 Test Item Value Reference Range Interpretation Comments POCT GLU (test code = 5326539883) 58 mg/dL 70-110 L Lab Interpretation (test code = Abnormal 61929-7) [facility] GLUCOSE (AUTOMATED)2022-04-24 22:30:29 Test Item Value Reference Range Interpretation Comments POCT GLU (test code = 2482396203) 182 mg/dL 70-110 H Lab Interpretation (test code = Abnormal 70591-7) [facility] GLUCOSE (AUTOMATED)2022-04-24 19:18:06 Test Item Value Reference Range Interpretation Comments POCT GLU (test code = 0248579265) 99 mg/dL 70-110 Lab Interpretation (test code = Normal 91845-2) [facility] DIALYSIS [id number] 19:09:28 Test Item Value Reference Range Interpretation Comments PostBUN (test code = 4931962995) 9 mg/dl 7-23 Lab Interpretation (test code = Normal 09916-9) [facility] GLUCOSE (AUTOMATED)2022-04-24 18:07:17 Test Item Value Reference Range Interpretation Comments POCT GLU (test code = 5103980944) 88 mg/dL 70-110 Lab Interpretation (test code = Normal 44276-7) [facility] GLUCOSE (AUTOMATED)2022-04-24 15:28:40 Test Item Value Reference Range Interpretation Comments POCT GLU (test code = 5252019108) 78 mg/dL 70-110 Lab Interpretation (test code = Normal 98489-5) [facility] GLUCOSE (AUTOMATED)2022-04-24 01:29:30 Test Item Value Reference Range Interpretation Comments POCT GLU (test code = 6130895899) 103 mg/dL 70-110 Lab Interpretation (test code = Normal 32177-8) [facility] GLUCOSE (AUTOMATED)2022-04-23 22:18:03 Test Item Value Reference Range Interpretation Comments POCT GLU (test code = 110 mg/dL 70-110 Notifi ed Provider [id number]) Lab Interpretation (test Normal code = 35941-1) [facility] [id number] 19:22:04 Test Item Value Reference Range Interpretation Comments Case Report (test code Surgical Pathology ? ? = [id number]) ?Case: [id number] ? Authorizing Provider: ?Delfino Granado MD ? ? ?Collected: ? 04/17/2022 1242 ?Ordering Location: ? ? [facility] OR ? Received: ?04/17/2022 1450 ? Department ? Pathologist: ? Tonie, ? [place], MD ?Specimen: ? ?LEG, RIGHT, BELOW KNEE ? Final Diagnosis (test l2tbhOYqMZFzu6fgNWPbrL code = 7986524666) FuZzEwMzNcZnRuYmpcdWMx IHtccnRmMVxlcGljMTAxMD YsBA1vuMqhfNy1aMysJCGd cbW3wXVfNVasw6zaJJF4t7 lvlmuuWINiGDnkIz6jfDLj oYlbUuYsTWMaRPm6gI43ML XwaU8paZTcWQy1TEKobROl ylQgRzQyPUYfmWDgaEW7XR UyGW4aqmxbFTulKOjfYTSx aiW6NYAukBXhZ5SjSQZaLR 4lmbqvBQL0SQitBGRnAPX8 PvOuNCYaw6Sqifn7CuBujH FyZFxwbGFpblxmczIwXHBh aluyAXPhKP0VNQrmOPDGX6 hULCBCRUxPVyBLTkVFIEFN BHRRLUAFK443OLFechOiJR ArAT9cU0CVQ6RKAx3QVoDZ JLWLN6QKFhVIQrEYH4rCFT DAKPKIV2LFCWOEI0MUTEYe fXDrYTAbHTOsDINRV68QBC wWBIwaBKYQA3LKATVRYErb YXIgICAgICAtIEFUSEVST1 TSLPMFI1CXPmPOZBZMABsU GxQRPE5SYhTAYDPACD0EX1 lTIFVQIFRPIDkwJSBBVCBU MHHiLXAYY1uHNLVfrkTqUO XwTX6rVNQJWXqZEGqTFP9H Mz7MASNVZZPdS48SWXEQIY XAUVZsX1GUR0sCAWalKQPU F8eQH9vfGIEtEEQoKVVjHV UKMeEqIjMTHEZSWQ8PDF1E UkdJTiBJUyBORUdBVElWRS NTH9QqX5XZRC7RABCZZBCN L2ftTAKjcSKqBBUfVbViCH KkvAjjLB4jG2bxorqzJK4H IDExLzgvMjAyMiAxMDoyNS BBTVxwYXJcZnMyMFxwYXJ9 h8hohIJkGDZykLMyRlTyXJ YwXOJfq7wyZEQstMKjXpMn MzNcZnRuYmpcdWMxXGRlZm Lya6aru829pXEkx8dzQEUp IuE4dCFaNUBtuFbpkef9xJ tlMjHiPNGwk1wiicRkMeXr JALlSQNuCQOczFJmZ510VN FsDXkvc0pbu4LvOJGvzCMz u2D6XSQASXjyTpVzH490x4 ifm2lgaqHpoXK5QYYyILI2 WLzqnoOcyoV8WDasxVBpLb S0AOxxjsTjZXstvsHicjIy Zxn1JIObU532HAP1jBwst9 rlJIX3CEUaCQOpHsaqZi2x yVIfJ704QNTmCCAQPBMtmW c7AYLwcyYphwDosFBOk883 B785v7fsAGVlmgYivWdCsb cgz9feJ167FVHazJPpjkWu BuVxLXSmmYOxfEE4YURcPG 9fcmquPKiiRWulTBQpdcI8 JERnePUkK2NiQEJaIR3nyq mnYLB9GNgdEMMyRHM5RaLf GKOhq0Phfyf2LdVdeb9zoh 03FFC6y1QjpHcgJBK9PBG2 KiXfJk2wuJOyLLCpKJ1qOh JtuSUdNTPlov49tLgxNNrq fpXplP2tOoGqHYSjqFIxQL RuMA0rbWZbPMBajE0jaajn XHBnYnJkcmhlYWRccGdicm ScIx4urBpfLIA4YChcQ5hs qM5pVgX5JGgoU9vzcB8mZX e0AYqfwPK7WKJepD6mXZ1i mlfqy1pzUWvmLBtlDOXkic M7ylX6PGTenKJqR6ImxG5e PKSvPW6zcdobt3fcERP5ZH mlOOVbQVN5VfKvATHwp3Ur ezk4XoUtk9ExgYZeFYanA4 0gd741RGXmnrLnK6jrbUZp rstyfDAxyzmxQDendhU7NT FsXHBsYWluXGYxXGZzMjBc bGFuZzEwMzNcaGljaFxmMV msMeLySYUnBEewO8foSqIv J5ZuJHRtVxWhlQGgMZbuwV C7OQJgALZue96dtZu6JPHd abuvi7RmUMExgDTdrLUixQ 9qmzJjm4qmYKDeTSSyFJIp K3KxUAR7hLZwFQJliYEguX K8PA4dpbYsQR2vFJBtUcmx cmVzaWRlbnRzLCBmZWxsb3 plWE1cZCFnsRhdfX9grMC5 UKCqp8dsqCTasDJjo4mem6 UgbmFtZShzKSBtYXkgYXBw BCXaXP4jTEUvtJOlrzHpy9 A6EfctaIIknkjcEgcgmeR2 TYuhadhdFJAiWWmsE0evCm RnIOShbAwsOncaa3JsRVTz XGZzMjhccGFyfX0= Clinical Information PAD (peripheral artery (test code = disease) [I73.9] 7245508432) Gross Description (test w6ekqXPbROOukZIwHWVhLM code = 9399125065) llclZfOGOqaHEvL5Zuiptj FFsoPJ3eJJ3vlGpqnVRxoY NhHDYiIdUfi4ilv959kJZn p1upOQAVytghjPb7dGdlQ4 6ts6O9YptkT16gmJRyBCA4 BGCpLWGcpSZcSRGtSYO9FS WtgEUeN8wgJHCxIQ2pxgnm CSooKZtuULNliDG3WIUpqW LkA7NuMMObUSdjRUTqijd8 JeSyTs7rcSRdyGfyZPlzKa stmNlye5JmiOBqCSssEFRs QIXyMRsertzaGZp3DPTqEI joxZRgBQ9buOxdBphesHzw a3IicJZtYIibXZSlCOZvSO chGXLbV2JAISLhWKQqJxBw HVIeDBe1OElaC9KKDKFoQN WrNWo3VFfdQnW6CIy7BKEJ By4tIER6QxwlAeQ1ArD2WH ExNiBcXHQgMiBcXGZsIFxc ZiBBcmlhbCBcXGZzIDEwIF beovS5LCFzleGchLryoZ2z FtXmZDOUKZVIGF6LBkUQTF BhclxmczIyIFNwZWNpbWVu PTIpxRYadeBnWCs4SDYjUo Uxq8oezQ5tYBDmFLHyQeiv tVE6AKGcIXXdOeVsOFOdvE VkIHdpdGggdGhlIHBhdGll jdAibzTwCT8hGXFSJPJndQ 6aQYKfOeCmDMozVQHwA8f2 JXFcLEtztv9oiyVtWbhfQX 3nGBUxftLxb1SbAU7lDOAd V5XgkW1bxg77uzTioWmylZ TkNKmfhzM8qZEcp64vMQGc aXS5gWB8nQ9pRBVwBWVeqO AtJLvgZUThI1Eqk81mpZRb L6erPFZvELbgHDnyUcGcEA CrjLkogBMjlN37kl83s7Wx ChFdLNNuxZejb6v2lOGfDO DyNMRmjHmbtVGewqVcX5Bv ULFeNLPxL0Abc08ilTZvA0 ysTUHfux24S8iwxTgaJAKv WwdgRKYzXCPnqUG1pVNgXX CJiKMuKn1kTXVoFQDtF0Rj i03pyCKoB1eoFVS4jBXdHZ McNd48XAJjPPFpa6bmrHRi IHRvIHRoZSBhbnRlcmlvci Psl3fsNINbXCWin4X0SADl k8C3SCTnRHAiO4Wie61maU IzA1wbDXCfCDBsOI5mDPQw PITxn8ksgPToMGHaFXCrIH Agh7H6EEVeq8Ynh3pehhGg zyVin50aiGK6pIKuiPTwhz ErFGA5sP4mJV0zfutppt9t MUXkNFCda386RUeocvKzVU 7wvMrrSpStqwvfHkM8b3Sd WSTaOBpuC3u4UFXioNywBK RoaXJkLWZpZnRoIHRvZXMg x5guH3vdzAZ4EBZ0zZlolk rwyvWzI7ZxYMGzkd28BIpg g3cgrzMubIXdQQPDxQQtGF MooqRkASTfgD7tHEMfTOS1 EKh0SiAlfNV6ZjJjH55hDE xzgSycr5krD9c4qChzxZbo ZXJhdGVkIGJvcmRlcnMgYX UnpNtcGWNnnjZ0NURzCRYp GOCbmxUwOXvdfTQqFA1cpI RhdGlvbiBzaXRlIHdpdGgg IRyca7AaPSM8HG7uqIAtmS 41LVXuaYxjaQr5YLmxbG1m atkvF0ahFSAnEiHcqOlvc4 VlLiAgVGhlcmUgaXMgYSBs lY6kXTNvGLM5uqdkN2IcIQ uti3bqaePzSDPiKeI7CDJl OJVujGybf75ynYejQY3yET phsASqbLXcXUFvCV7sRBJs HQN5rRGnccPqMRgdv7rbM8 mcpE51g5v4RXFiySksUZVn zW4lbnTgYRZ9mR5iKP4vyg jqycRpvxJybYJyh3CjYVRb Ea6bBVWqGFVdx66gnHeqZW ZemsNcliAxJYA9mA2wVJ9p jqatoj0iBUB2WZWgAGGqDE VbG8Ybh92ydAXlL7nhWOWo RVKljoYyajmytvH2cIDnFR kxSKU8AHE2AMihGBLxoUSu gKW5bKElo0S0SYXzjREpZg tlGHLpw87wGY2fMAFzKGPe m9Y6RGWnl1SrmVjliXNoTY LixPAenOBzULMdOKIuzz09 pV4pbZNzaXO8THDjx9Xsmj 5waDSjKH8sOGDnHHBgWJim MSRlm3pqlJtvpAffQZWdce RpYWwgdHVidWxhciBncmFm dLIhzTV2yDNerV3wvDOnwM 4lPVQuAfzrnNIsBEToH6Sj j77hgHIpB1hrNtZrROAlvq SmJMDfOVsjlLPzWII3yA7l rR8yVNBhSFDysvCjrjcyir E6uGRdUCvyMZB9XDJ9XEqs QGRplVKpiRB2aPRhj0V6AA XjcMQtMolvWTSke58wHWQv ZUC5ePSxuO2pbAUwtM5lUB RpYmlhbCBhcnRlcnkgaXMg H3TnV1fvfCHaMRNcHOTeFP VaIMQmMTH6NJ2sz6zrQvRh TjYmreGhAH48SBQuyrHfm1 QakAecffCvBRRaVTZ7Lx8h xJHhWCGcapGQYD4IOeqxBq 0nbS40xR1uGFDyI0AsR7fc aWNhdGlvbiBvZiBBMiwgQT YvSPN7NQYervRiOGayIKYh xqolTKQlYB1tWDDvFJC6OD ByfUCsBX54POMed6UwbLob aWFsIGFydGVyeSwgYmxhY2 kqwX9bkSQmzV4oTXCwTaxy bCBhcnRlcnlccGFyXHBhci GAQVD7dY9hIYQuULM6ASWz yrIETWctZ5jokrJkppIow0 4tvIN5wTZtiGZhvhNoSHN7 rA8iPN4jyptxzyohQY2cKb BeRAgxpeZnvjYhEP89HHTa rmXcSVFdNNqgP9p5EWLklS xiYFXaYBher0glqzsuZPEe LTFfFUF3ZMMkRfnkUYTvp8 NhaVmuriYgCPWikO4oFTMh b7PzeOPmEVFfsjFzKECgVW BlbnRpcmVseVxwYXIgQTQ6 GAMjuLZbyA6lMIWaLOUoi3 K3GUDtr4MfeIkjoOSmCRXl eCOnbQHtPUVfZ2Uky51qnP BuA0pce1ssIUAnIQS3AKDa vNQvjI7dEKBqGYFmc0P9CW Cfb5FqbVdilPCpYSGabDKu aWVzLCByZXByZXNlbnRhdG t9UEjbYFToYGS3LKsfqhRw rxXqKDBfk22uZG0mIEEchF Cyz9QhwCR4xBFjMCNeK6Aj u21jSbPwpSYsdRUelIUmvP gauMHeqVU8cSX1iX8yPCEn rMTrUGLigJGlp5KviHN2pY XgOVKwofDCImpsBr5iDNEt bh4wNYSzxcC5VCZaJHCcCQ GbgdTsYIxehZZpLL3zwIMz dGlvbiBzaXRlcywgcmVwcm KaTU50RAXskvEigWKnWPCa rrDUGCB7IRKbfuTqoApxFI YRECHiNBJHAJi9PYEriRMa SDZ6LX4bxVyzNCDtC4BeV6 DaanU2GERbah1= Disclaimer (test code = k2svyYRzYXYsd6quJEAhfB [id number]) FuZzEwMzNcZnRuYmpcdWMx BHotxhVgAZabs5RmT7OkEb AwMFxhbnNpXGRlZmxhbmcx VEEvAKQ2jqUrHVLzRNuwHU HzLPsbMl0icJZobThjZlTf KBRtl1xrpnWCKFdmYkJvD8 20JTGuUXapo7ejy8XaHHGj uXDmt3R0FGXWpobjeTj8pH gyK81ww6G6LsxfR2snAUYi VIKeK2RiPM9lEECeDlk7TQ N7LUZ7NPYpSBHjI0CxLJ0t QLRazKYxDRz1y7ighGrzGH PtIXD4b1hlUFrxozNpUX0a gi7qiEj3x5thhoMfUUPuUI WcfBPZFZXbH9PlaWhjGh5q zWh8sFlrWdaeMDR3Ihm9OC 6xim85lny4nOlhJBWqxzub JqS9SNtbYNKlaxjpACx9JV xiBKXpmQQ2ESKcrOPvJ9Yg TAPvOS0dajo5RPY5DPzrXR WsVlN9UCGhtVMmFYHacXfg CJmmk826LJF5YnGiUN9iI7 Zgn6K3sS6grZKiMXVhgXKv DjFlXEGpnb2ieAZyCTyse7 BkRMK7yaO8bATbbMBcQWHe SY04Wbpce6VbNyxuq4SqW2 6cgCW9LXrry6qjYD7aVdG0 qhHmTPwiz8dmfS3bZhK9UK uuEQ8gFU6jPOQonZ3mevzg XHBnYnJkcmhlYWRccGdicm VwQz2jsHvhFWK2ZQduY9np wX4uBaS6GZgkQ0plaI0wJN g7NYeowZX0EAQurE6zQJ4s yvdlh9lwWTzhONhxSSItmz A3csP2KRLbePSoE0PtsH4l IQPeFK9rmgfkn2fsHKX1WQ ioIHLeAKG4OxBdVQBhk8Dw xep5DbQjo7AvzQIiJFasW6 9oo149IQWnpmZrI8dosPQa ewpfaGRdczidCVlkfqG3ZN EysqRit5MaPQJeFJJ9WBgr SSwezLPuBKKrxLbbu5uiA1 RscGFyXHBsYWluXGYxXGZz MjBcbGFuZzEwMzNcaGljaF zfHQfvQcEoPSZjMKyhJ3ex YmPhA5NnLCYjMlRnaEHwT2 ggVGhpcyByZXBvcnQgbWF5 WOfaB2y1JLDekfCgfXf9xc TfGlMgBJNpROQ3PKwnpAUk NERgp9QizndvaSPfHt4jmE NdPSHnpK5bMPAnKNSfRIkc UJ4diTh9CLRMbQRbqKCdTi XGNTOjMW34woSzAGGDxxlm h3Z0YHxoQEXnr0NjfKUxA7 aac4ClLMVlz45dJC8ca7A1 j7naKJA2BF4zk4NpDFAfyV VdbGLiXVXon4Bfhtwrm8Mq CGKqzbCak3KpVUMeqpYadE HxBZUgklQwhp0ivxNtDQUl VRHgE2CxcincpBrzcuEqZT Zdiz2oiwNeLOS3XMHGOZNk IRAyh3XmyK8mxVPLHAH7zI Tsko7gqgUBxAVnQDKkio55 CRXdTX3zS9yaFHOaPXSitg KwcMZxu8LsFEXhuQY7rAFl HB7MNkIQo57vCCQfIBBXbj TrBYVyhUeuxVA7mqZ2sM6a IChGREEpLlx+IFRoZSBGRE CcCG0xytOyn2RlxyYvjRzy TCSqhDTyw2WnnXUoe7IyxQ sns7WjcCWbzZBkSZ8rYOEm clxwYXIgVVRNQiBMYWJvcm I2c5JsYIBvEKVeJUG0qHti bfl6PIDznK1iXRXtR1maho cqLLmyPIYxw2VbnB4jzMHJ kWQtl7HorOAvdLVDoXHdOW 8qqeZvHZgMHKpLJGI0jfZl BKJdb5IqJQrhU9nnY04lgT ghlEk3vDT0IHA6iG9lEjy+ IFxwYXJccGFyIEFwcHJvcH ZnCZChaSkyleJtP1WfjgRh mA8rjRAhwxVaWG9uZH7xO8 Q2vPZlQTRvmgOkv8ijRIwo dmUgYmVlbiByZXZpZXdlZC Geq1PaHBszCIS3VNkgugZb bmNsdWRpbmcgSCZFLCBTcG DhxEGuKBK6FEcawiTscoCc AK9gpH6wnRsixT3uoJGepD Y3tbbcMLHrWUTccVarYMZn FO4zsFUbPJYfxwLNuOedlD IrcH0bL5EhGPWcVJEofv3m DUNqfL5bADxrk7PqujcgQV GbKSXaQTKfveYlwy9mZWEo jRHAQC0OVGvkyOFhv3Aebe MaL4zKCWK5WUHrOhDdFepj YLFzhSOciULfQPEtox86YE MteY1ukTjlLKDmpN1kxR7w mRsgtI3lHnZvByRaRKliUN 9cPQHbT2mesLCxQGToQEVz F2axNkOvkW3fvKwqZOiaFp UgKnDjTLxeKMF1eR== Embedded Images (test code = [id number]) [facility] GLUCOSE (AUTOMATED)2022-04-23 18:05:58 Test Item Value Reference Range Interpretation Comments POCT GLU (test code = 206 mg/dL 70-110 H Notifi ed Provider [id number]) Lab Interpretation (test Abnormal code = 78414-3) [facility] GLUCOSE (AUTOMATED)2022-04-23 14:20:45 Test Item Value Reference Range Interpretation Comments POCT GLU (test code = 89 mg/dL 70-110 Notifi ed Provider [id number]) Lab Interpretation (test Normal code = 43433-1) [facility] GLUCOSE (AUTOMATED)2022-04-23 03:33:37 Test Item Value Reference Range Interpretation Comments POCT GLU (test code = 6392994963) 99 mg/dL 70-110 Lab Interpretation (test code = Normal 03245-0) [facility] GLUCOSE (AUTOMATED)2022-04-22 17:30:44 Test Item Value Reference Range Interpretation Comments POCT GLU (test code = 115 mg/dL 70-110 H Notifi ed Provider [id number]) Lab Interpretation (test Abnormal code = 68081-1) [facility] GLUCOSE (AUTOMATED)2022-04-22 15:03:57 Test Item Value Reference Range Interpretation Comments POCT GLU (test code = 8433437039) 124 mg/dL 70-110 H Lab Interpretation (test code = Abnormal 47343-5) [facility] GLUCOSE (AUTOMATED)2022-04-22 13:37:02 Test Item Value Reference Range Interpretation Comments POCT GLU (test code = 98 mg/dL 70-110 Notifi ed Provider [id number]) Lab Interpretation (test Normal code = 80629-2) [facility] GLUCOSE (AUTOMATED)2022-04-22 02:46:57 Test Item Value Reference Range Interpretation Comments POCT GLU (test code = 2597034005) 86 mg/dL 70-110 Lab Interpretation (test code = Normal 72096-3) [facility] GLUCOSE (AUTOMATED)2022-04-21 23:32:59 Test Item Value Reference Range Interpretation Comments POCT GLU (test code = 2900885924) 88 mg/dL 70-110 Lab Interpretation (test code = Normal 97403-9) [facility] GLUCOSE (AUTOMATED)2022-04-21 18:13:30 Test Item Value Reference Range Interpretation Comments POCT GLU (test code = 2383823331) 117 mg/dL 70-110 H Lab Interpretation (test code = Abnormal 08596-9) [facility] GLUCOSE (AUTOMATED)2022-04-21 15:10:33 Test Item Value Reference Range Interpretation Comments POCT GLU (test code = 1625727770) 123 mg/dL 70-110 H Lab Interpretation (test code = Abnormal 81152-2) [facility] GLUCOSE (AUTOMATED)2022-04-21 01:36:23 Test Item Value Reference Range Interpretation Comments POCT GLU (test code = 0437810090) 150 mg/dL 70-110 H Lab Interpretation (test code = Abnormal 11043-0) [facility] GLUCOSE (AUTOMATED)2022-04-20 21:16:02 Test Item Value Reference Range Interpretation Comments POCT GLU (test code = 135 mg/dL 70-110 H Notifi ed Provider [id number]) Lab Interpretation (test Abnormal code = 18155-5) [facility] GLUCOSE (AUTOMATED)2022-04-20 16:49:04 Test Item Value Reference Range Interpretation Comments POCT GLU (test code = 240 mg/dL 70-110 H Notifi ed Provider [id number]) Lab Interpretation (test Abnormal code = 68657-6) [facility] GLUCOSE (AUTOMATED)2022-04-20 14:20:01 Test Item Value Reference Range Interpretation Comments POCT GLU (test code = 0737866753) 165 mg/dL 70-110 H Lab Interpretation (test code = Abnormal 88243-3) [facility] GLUCOSE (AUTOMATED)2022-04-20 01:37:12 Test Item Value Reference Range Interpretation Comments POCT GLU (test code = 144 mg/dL 70-110 H Notifi ed Provider [id number]) Lab Interpretation (test Abnormal code = 38499-3) [facility] GLUCOSE (AUTOMATED)2022-04-19 22:33:23 Test Item Value Reference Range Interpretation Comments POCT GLU (test code = 1259340298) 98 mg/dL 70-110 Lab Interpretation (test code = Normal 86236-6) [facility] after transfusion of each [id number] 22:20:05 Test Item Value Reference Range Interpretation Comments WBC (test code = 6690-2) See_Comment [A utomated message] The system [employer] generated this result transmit rudolph reference range : 4.20 - 10.70 10*3/?L. The reference range was not used to interpret this result as normal/abnormal . RBC (test code = 789-8) See_Comment L [Au tomated message] The system [employer] generated this result transmit rudolph reference range : 4.26 - 5.52 10* 6/?L. The reference r adama was not used to interpret this result as normal/abnormal . HGB (test code = 718-7) 7.7 g/dL 12.2-16.4 L HCT (test code = 4544-3) 24.1 % 38.4-49.3 L MCH (test code = 785-6) 28.2 pg 26.1-32.7 MCV (test code = 787-2) 88.3 fL 81.7-95.6 MCHC (test code = 786-4) 32.0 g/dL 31.2-35.0 PLT (test code = 777-3) See_Comment [Au tomated message] The system [employer] generated this result transmit rudolph reference range : 150 - 328 10*3/?L. The reference range was not used to interpret this result as normal/abnormal . MPV (test code = 11.6 fL 9.8-13.0 01447-9) RDW-CV (test code = 15.4 % 12.1-15.4 788-0) RDW-SD (test code = 48.0 fL 38.5-51.6 49326-0) NRBC x10^3 (test code = See_Comment [Au tomated message] 1212433345) The system [employer] generated this result transmit rudolph reference range : 10*3/?L. The reference range was not used to interpret this result as normal/abnormal . NRBC/100 WBC (test code See_Comment [Au tomated message] = 0395841586) The system [facility] generated this result transmit rudolph reference range : 0.0 - 10.0 /100 WBC s. The reference r adama was not used to interpret this result as normal/abnormal . IPF % (test code = 9390676659) Lab Interpretation (test Abnormal code = 02926-5) [facility] GLUCOSE (AUTOMATED)2022-04-19 16:46:04 Test Item Value Reference Range Interpretation Comments POCT GLU (test code = 8604099417) 160 mg/dL 70-110 H Lab Interpretation (test code = Abnormal 70634-3) [facility]Prep[facility] Packed RBC (in units), 1 Units 2022-04-19 16:38:13 Test Item Value Reference Range Interpretation Comments Cross Match Result Compatible (test code = 4409) ISBT Blood Type Code (test code = 354676) Unit Blood Type (test O Pos code = 4410) Unit Number (test [id number] code = 4411) Blood Expiration Date & Time (test code = 869004) Status Information Issued (test code = 4412) Product Red Blood Cells Identification (test code = 4413) Product Code (test [id number] Performed at [facility] code = 4414) Laboratory Services - [facility] Blood Bnrr9[address] [facility] s [id number] Free: [phone] A No. [id number] [facility] TylerType and Screen - ONCE [id number] 13:53:13 Test Item Value Reference Range Interpretation Comments ABO & RH (test code O POSITIVE Performe d at [facility] = 20) Laboratory Serv [facility] Blood Bank3 [address] [facility] s [id number] Free: [phone] A No. [id number] IAT (test code = Negative Performed a t [facility] 1185) Laboratory [facility] Blood Bank3 [address] [facility] s [address]Eosx Free: [phone] A No. [id number] [facility] GLUCOSE (AUTOMATED)2022-04-19 13:09:23 Test Item Value Reference Range Interpretation Comments POCT GLU (test code = 3894116377) 133 mg/dL 70-110 H Lab Interpretation (test code = Abnormal 74019-2) [facility] GLUCOSE (AUTOMATED)2022-04-19 02:48:15 Test Item Value Reference Range Interpretation Comments POCT GLU (test code = 3910893967) 98 mg/dL 70-110 Lab Interpretation (test code = Normal 54077-1) [facility] GLUCOSE (AUTOMATED)2022-04-18 20:44:44 Test Item Value Reference Range Interpretation Comments POCT GLU (test code = 95 mg/dL 70-110 Notifi ed Provider [id number]) Lab Interpretation (test Normal code = 70330-6) [facility] GLUCOSE (AUTOMATED)2022-04-18 18:33:14 Test Item Value Reference Range Interpretation Comments POCT GLU (test code = 68 mg/dL 70-110 L Notifi ed Provider [id number]) Lab Interpretation (test Abnormal code = 04932-4) [facility] GLUCOSE (AUTOMATED)2022-04-18 18:33:14 Test Item Value Reference Range Interpretation Comments POCT GLU (test code = 68 mg/dL 70-110 L Notifi ed Provider [id number]) Lab Interpretation (test Abnormal code = 87809-4) [facility] GLUCOSE (AUTOMATED)2022-04-18 01:44:18 Test Item Value Reference Range Interpretation Comments POCT GLU (test code = 0367032886) 155 mg/dL 70-110 H Lab Interpretation (test code = Abnormal 62937-6) [facility] GLUCOSE (AUTOMATED)2022-04-18 01:44:18 Test Item Value Reference Range Interpretation Comments POCT GLU (test code = 8908888665) 155 mg/dL 70-110 H Lab Interpretation (test code = Abnormal 66560-6) [facility] GLUCOSE (AUTOMATED)2022-04-17 21:25:00 Test Item Value Reference Range Interpretation Comments POCT GLU (test code = 103 mg/dL 70-110 Notifi ed Provider [id number]) Lab Interpretation (test Normal code = 18793-0) [facility] GLUCOSE (AUTOMATED)2022-04-17 21:25:00 Test Item Value Reference Range Interpretation Comments POCT GLU (test code = 103 mg/dL 70-110 Notifi ed Provider [id number]) Lab Interpretation (test Normal code = 90703-0) [facility] WITHOUT [id number] 20:04:41 Test Item Value Reference Range Interpretation Comments WBC (test code = 6690-2) See_Comment H [A utomated message] The system [employer] generated this result transmit rudolph reference range : 4.20 - 10.70 10*3/?L. The reference range was not used to interpret this result as normal/abnormal . RBC (test code = 789-8) See_Comment L [Au tomated message] The system [employer] generated this result transmit rudolph reference range : 4.26 - 5.52 10* 6/?L. The reference r adama was not used to interpret this result as normal/abnormal . HGB (test code = 718-7) 7.0 g/dL 12.2-16.4 L HCT (test code = 4544-3) 22.0 % 38.4-49.3 L MCH (test code = 785-6) 28.2 pg 26.1-32.7 MCV (test code = 787-2) 88.7 fL 81.7-95.6 MCHC (test code = 786-4) 31.8 g/dL 31.2-35.0 PLT (test code = 777-3) See_Comment [Au tomated message] The system [employer] generated this result transmit rudolph reference range : 150 - 328 10*3/?L. The reference range was not used to interpret this result as normal/abnormal . MPV (test code = 11.8 fL 9.8-13.0 89266-2) RDW-CV (test code = 16.2 % 12.1-15.4 H 788-0) RDW-SD (test code = 49.7 fL 38.5-51.6 75235-0) NRBC x10^3 (test code = See_Comment [Au tomated message] 7845287384) The system [employer] generated this result transmit rudolph reference range : 10*3/?L. The reference range was not used to interpret this result as normal/abnormal . NRBC/100 WBC (test code See_Comment [Au tomated message] = 8178273600) The system [facility] generated this result transmit rudolph reference range : 0.0 - 10.0 /100 WBC s. The reference r adama was not used to interpret this result as normal/abnormal . IPF % (test code = 3194084334) Lab Interpretation (test Abnormal code = 43952-9) [facility] WITHOUT [id number] 20:04:41 Test Item Value Reference Range Interpretation Comments WBC (test code = 6690-2) See_Comment H [A utomated message] The system [employer] generated this result transmit rudolph reference range : 4.20 - 10.70 10*3/?L. The reference range was not used to interpret this result as normal/abnormal . RBC (test code = 789-8) See_Comment L [Au tomated message] The system [employer] generated this result transmit rudolph reference range : 4.26 - 5.52 10* 6/?L. The reference r adama was not used to interpret this result as normal/abnormal . HGB (test code = 718-7) 7.0 g/dL 12.2-16.4 L HCT (test code = 4544-3) 22.0 % 38.4-49.3 L MCH (test code = 785-6) 28.2 pg 26.1-32.7 MCV (test code = 787-2) 88.7 fL 81.7-95.6 MCHC (test code = 786-4) 31.8 g/dL 31.2-35.0 PLT (test code = 777-3) See_Comment [Au tomated message] The system [employer] generated this result transmit rudolph reference range : 150 - 328 10*3/?L. The reference range was not used to interpret this result as normal/abnormal . MPV (test code = 11.8 fL 9.8-13.0 83215-5) RDW-CV (test code = 16.2 % 12.1-15.4 H 788-0) RDW-SD (test code = 49.7 fL 38.5-51.6 51485-5) NRBC x10^3 (test code = See_Comment [Au tomated message] 4106818039) The system [employer] generated this result transmit rudolph reference range : 10*3/?L. The reference range was not used to interpret this result as normal/abnormal . NRBC/100 WBC (test code See_Comment [Au tomated message] = 6264210346) The system [facility] generated this result transmit rudolph reference range : 0.0 - 10.0 /100 WBC s. The reference r adama was not used to interpret this result as normal/abnormal . IPF % (test code = 3691362822) Lab Interpretation (test Abnormal code = 44470-2) [facility] GLUCOSE (AUTOMATED)2022-04-17 13:17:39 Test Item Value Reference Range Interpretation Comments POCT GLU (test code = 141 mg/dL 70-110 H Notifi ed Provider [id number]) Lab Interpretation (test Abnormal code = 95520-1) [facility] GLUCOSE (AUTOMATED)2022-04-17 13:17:39 Test Item Value Reference Range Interpretation Comments POCT GLU (test code = 141 mg/dL 70-110 H Notifi ed Provider [id number]) Lab Interpretation (test Abnormal code = 50184-1) [facility] GLUCOSE (AUTOMATED)2022-04-17 02:45:46 Test Item Value Reference Range Interpretation Comments POCT GLU (test code = 4888992918) 210 mg/dL 70-110 H Lab Interpretation (test code = Abnormal 46878-5) [facility] GLUCOSE (AUTOMATED)2022-04-17 02:45:46 Test Item Value Reference Range Interpretation Comments POCT GLU (test code = 1834835939) 210 mg/dL 70-110 H Lab Interpretation (test code = Abnormal 33018-7) [facility] GLUCOSE (AUTOMATED)2022-04-17 00:25:22 Test Item Value Reference Range Interpretation Comments POCT GLU (test code = 3039535588) 263 mg/dL 70-110 H Lab Interpretation (test code = Abnormal 02439-2) [facility] GLUCOSE (AUTOMATED)2022-04-17 00:25:22 Test Item Value Reference Range Interpretation Comments POCT GLU (test code = 3283997371) 263 mg/dL 70-110 H Lab Interpretation (test code = Abnormal 81569-9) [facility] TyleraPTT (for use with Heparin Infusion)2022-04-16 18:23:14 Test Item Value Reference Range Interpretation Comments APTT Patient (test code See_Comment H [Au tomated message] = 3173-2) The system [employer] generated this result transmitted ref erence range: 26 - 36 Seconds. The reference range was not used to int erpret this result as normal/abnormal . Lab Interpretation (test Abnormal code = 92075-6) [facility] TyleraPT (for use with Heparin Infusion)2022-04-16 18:23:14 Test Item Value Reference Range Interpretation Comments APTT Patient (test code See_Comment H [Au tomated message] = 3173-2) The system [employer] generated this result transmitted ref erence range: 26 - 36 Seconds. The reference range was not used to int erpret this result as normal/abnormal . Lab Interpretation (test Abnormal code = 47023-3) [facility] GLUCOSE (AUTOMATED)2022-04-16 17:59:52 Test Item Value Reference Range Interpretation Comments POCT GLU (test code = 8833626636) 131 mg/dL 70-110 H Lab Interpretation (test code = Abnormal 37604-1) [facility] GLUCOSE (AUTOMATED)2022-04-16 17:59:52 Test Item Value Reference Range Interpretation Comments POCT GLU (test code = 9612204774) 131 mg/dL 70-110 H Lab Interpretation (test code = Abnormal 74411-5) [facility] GLUCOSE (AUTOMATED)2022-04-16 13:06:52 Test Item Value Reference Range Interpretation Comments POCT GLU (test code = 9878102134) 157 mg/dL 70-110 H Lab Interpretation (test code = Abnormal 12069-3) [facility] GLUCOSE (AUTOMATED)2022-04-16 13:06:52 Test Item Value Reference Range Interpretation Comments POCT GLU (test code = 3060289768) 157 mg/dL 70-110 H Lab Interpretation (test code = Abnormal 00963-7) [facility] GLUCOSE (AUTOMATED)2022-04-16 01:54:00 Test Item Value Reference Range Interpretation Comments POCT GLU (test code = 2424286525) 91 mg/dL 70-110 Lab Interpretation (test code = Normal 12790-6) [facility] GLUCOSE (AUTOMATED)2022-04-16 01:54:00 Test Item Value Reference Range Interpretation Comments POCT GLU (test code = 2060718478) 91 mg/dL 70-110 Lab Interpretation (test code = Normal 78036-8) [facility] GLUCOSE (AUTOMATED)2022-04-15 17:00:06 Test Item Value Reference Range Interpretation Comments POCT GLU (test code = 1376694890) 173 mg/dL 70-110 H Lab Interpretation (test code = Abnormal 82641-8) [facility] GLUCOSE (AUTOMATED)2022-04-15 17:00:06 Test Item Value Reference Range Interpretation Comments POCT GLU (test code = 5021673282) 173 mg/dL 70-110 H Lab Interpretation (test code = Abnormal 46167-0) [facility] GLUCOSE (AUTOMATED)2022-04-15 13:24:12 Test Item Value Reference Range Interpretation Comments POCT GLU (test code = 8233903981) 125 mg/dL 70-110 H Lab Interpretation (test code = Abnormal 70790-7) [facility] GLUCOSE (AUTOMATED)2022-04-15 13:24:12 Test Item Value Reference Range Interpretation Comments POCT GLU (test code = 5544856083) 125 mg/dL 70-110 H Lab Interpretation (test code = Abnormal 25911-8) [facility] GLUCOSE (AUTOMATED)2022-04-15 02:36:11 Test Item Value Reference Range Interpretation Comments POCT GLU (test code = 8471338607) 168 mg/dL 70-110 H Lab Interpretation (test code = Abnormal 93565-6) [facility] GLUCOSE (AUTOMATED)2022-04-15 02:36:11 Test Item Value Reference Range Interpretation Comments POCT GLU (test code = 9057711862) 168 mg/dL 70-110 H Lab Interpretation (test code = Abnormal 87494-5) [facility]G+COOX+NA+K+GLU+CA2+2022-04-15 01:04:50 Test Item Value Reference Range Interpretation Comments PH (test code = 2) 7.35-7.45 PCO2 (test code = See_Comment [Automate d message] 4060947270) The system [employer] generated this result transmit rudolph reference range : 35 - 45 mmHg. The reference range was not used to interpret this result as normal/abnormal . PO2 (test code = See_Comment [Automated message] 5723800408) The system [employer] generated this result transmit rudolph reference range : 80 - 100 mmHg. The reference range was not used to interpret this result as normal/abnormal . HCO3 (test code = See_Comment [Automate d message] 8057339207) The system [employer] generated this result transmit rudolph reference range : 22 - 26 mEq/L. The reference range was not used to interpret this result as normal/abnormal . BE (test code = See_Comment [Automated message] 1945122280) The system [employer] generated this result transmit rudolph reference range : -3.0 - 3.0 mEq/ L. The reference r adama was not used to interpret this result as normal/abnormal . THB (test code = 12.1 g/dL 13.5-18.0 L 4861198082) %O2HB (test code = 96.4 % 94.0-99.0 9769796257) %COHB ART (test code = 0.3 % 0.0-1.5 9508293908) %METHB ART (test code = 0.2 % 0.4-1.5 L 9690492991) VOL%O2 ART (test code = 16.5 % 15.0-23.0 QUES 8646205194) NA (test code = 134 mmol/L 135-145 L 1491566874) K+ (test code = 3.6 mmol/L 3.5-5.0 1929175855) AC CA IONZ (test code = 5.20 mg/dL 4.50-5.30 5051777698) GLUCOSE (test code = 136 mg/dL 70-110 H 2823467579) Lab Interpretation Abnormal (test code = 38647-0) [facility]G+COOX+NA+K+GLU+CA2+2022-04-15 01:04:50 Test Item Value Reference Range Interpretation Comments PH (test code = 2) 7.35-7.45 PCO2 (test code = See_Comment [Automate d message] 3667832485) The system [employer] generated this result transmit rudolph reference range : 35 - 45 mmHg. The reference range was not used to interpret this result as normal/abnormal . PO2 (test code = See_Comment [Automated message] 3697079282) The system [employer] generated this result transmit rudolph reference range : 80 - 100 mmHg. The reference range was not used to interpret this result as normal/abnormal . HCO3 (test code = See_Comment [Automate d message] 2047361487) The system [employer] generated this result transmit rudolph reference range : 22 - 26 mEq/L. The reference range was not used to interpret this result as normal/abnormal . BE (test code = See_Comment [Automated message] 0811722085) The system [employer] generated this result transmit rudolph reference range : -3.0 - 3.0 mEq/ L. The reference r adama was not used to interpret this result as normal/abnormal . THB (test code = 12.1 g/dL 13.5-18.0 L 4272637992) %O2HB (test code = 96.4 % 94.0-99.0 2524802542) %COHB ART (test code = 0.3 % 0.0-1.5 2593870927) %METHB ART (test code = 0.2 % 0.4-1.5 L 4776068026) VOL%O2 ART (test code = 16.5 % 15.0-23.0 QUES 7203952128) NA (test code = 134 mmol/L 135-145 L 9116831748) K+ (test code = 3.6 mmol/L 3.5-5.0 7829417806) AC CA IONZ (test code = 5.20 mg/dL 4.50-5.30 9749764823) GLUCOSE (test code = 136 mg/dL 70-110 H 2997152772) Lab Interpretation Abnormal (test code = 23057-3) [facility]COOX+NA+K+GLU+CA2+2022-04-15 01:04:30 Test Item Value Reference Range Interpretation Comments PH (test code = 2) 7.35-7.45 PCO2 (test code = See_Comment [Automate d message] 8626267097) The system [employer] generated this result transmit rudolph reference range : 35 - 45 mmHg. The reference range was not used to interpret this result as normal/abnormal . PO2 (test code = See_Comment H [Automated message] 8291213394) The system [employer] generated this result transmit rudolph reference range : 80 - 100 mmHg. The reference range was not used to interpret this result as normal/abnormal . HCO3 (test code = See_Comment [Automate d message] 5475095217) The system [employer] generated this result transmit rudolph reference range : 22 - 26 mEq/L. The reference range was not used to interpret this result as normal/abnormal . BE (test code = See_Comment [Automated message] 9309701354) The system [employer] generated this result transmit rudolph reference range : -3.0 - 3.0 mEq/ L. The reference r adama was not used to interpret this result as normal/abnormal . THB (test code = 11.1 g/dL 13.5-18.0 L 6504787564) %O2HB (test code = 98.9 % 94.0-99.0 5004568131) %COHB ART (test code = 0.3 % 0.0-1.5 0308309076) %METHB ART (test code = 0.2 % 0.4-1.5 L 6129169350) VOL%O2 ART (test code = 16.0 % 15.0-23.0 QUES 7051294796) NA (test code = 133 mmol/L 135-145 L 1642097371) K+ (test code = 3.5 mmol/L 3.5-5.0 0785817734) AC CA IONZ (test code = 4.80 mg/dL 4.50-5.30 0892669911) GLUCOSE (test code = 111 mg/dL 70-110 H 5969110746) Lab Interpretation Abnormal (test code = 13977-0) [facility]G+COOX+NA+K+GLU+CA2+2022-04-15 01:04:30 Test Item Value Reference Range Interpretation Comments PH (test code = 2) 7.35-7.45 PCO2 (test code = See_Comment [Automate d message] 4575650194) The system [employer] generated this result transmit rudolph reference range : 35 - 45 mmHg. The reference range was not used to interpret this result as normal/abnormal . PO2 (test code = See_Comment H [Automated message] 3901260461) The system [employer] generated this result transmit rudolph reference range : 80 - 100 mmHg. The reference range was not used to interpret this result as normal/abnormal . HCO3 (test code = See_Comment [Automate d message] 6472620830) The system [employer] generated this result transmit rudolph reference range : 22 - 26 mEq/L. The reference range was not used to interpret this result as normal/abnormal . BE (test code = See_Comment [Automated message] 8351997443) The system [employer] generated this result transmit rudolph reference range : -3.0 - 3.0 mEq/ L. The reference r adama was not used to interpret this result as normal/abnormal . THB (test code = 11.1 g/dL 13.5-18.0 L 6953449493) %O2HB (test code = 98.9 % 94.0-99.0 2451275863) %COHB ART (test code = 0.3 % 0.0-1.5 8041879464) %METHB ART (test code = 0.2 % 0.4-1.5 L 8345036631) VOL%O2 ART (test code = 16.0 % 15.0-23.0 QUES 0281332847) NA (test code = 133 mmol/L 135-145 L 2063508849) K+ (test code = 3.5 mmol/L 3.5-5.0 1428964271) AC CA IONZ (test code = 4.80 mg/dL 4.50-5.30 6837645881) GLUCOSE (test code = 111 mg/dL 70-110 H 4591567981) Lab Interpretation Abnormal (test code = 41872-2) [facility]COOX+NA+K+GLU+CA2+2022-04-15 01:02:35 Test Item Value Reference Range Interpretation Comments PH (test code = 2) 7.35-7.45 PCO2 (test code = See_Comment L [Automate d message] 3500163602) The system [employer] generated this result transmit rudolph reference range : 35 - 45 mmHg. The reference range was not used to interpret this result as normal/abnormal . PO2 (test code = See_Comment H [Automated message] 8824265717) The system [employer] generated this result transmit rudolph reference range : 80 - 100 mmHg. The reference range was not used to interpret this result as normal/abnormal . HCO3 (test code = See_Comment L [Automate d message] 3532634256) The system [employer] generated this result transmit rudolph reference range : 22 - 26 mEq/L. The reference range was not used to interpret this result as normal/abnormal . BE (test code = See_Comment L [Automated message] 3726987318) The system [employer] generated this result transmit rudolph reference range : -3.0 - 3.0 mEq/ L. The reference r adama was not used to interpret this result as normal/abnormal . THB (test code = 9.7 g/dL 13.5-18.0 L 7542446081) %O2HB (test code = 98.6 % 94.0-99.0 4374415054) %COHB ART (test code = 0.3 % 0.0-1.5 3964693874) %METHB ART (test code = 0.4 % 0.4-1.5 5083029528) VOL%O2 ART (test code = 14.0 % 15.0-23.0 L QUES 0460551049) NA (test code = 138 mmol/L 135-145 5148819770) K+ (test code = 2.6 mmol/L 3.5-5.0 LL 3279838672) AC CA IONZ (test code = 4.00 mg/dL 4.50-5.30 L 5593880904) GLUCOSE (test code = 84 mg/dL 70-110 3479209849) Lab Interpretation Abnormal (test code = 73788-1) [facility] 01:02:35 Test Item Value Reference Range Interpretation Comments PH (test code = 2) 7.35-7.45 PCO2 (test code = See_Comment L [Automate d message] 2806149483) The system [employer] generated this result transmit rudolph reference range : 35 - 45 mmHg. The reference range was not used to interpret this result as normal/abnormal . PO2 (test code = See_Comment H [Automated message] 6733576395) The system [employer] generated this result transmit rudolph reference range : 80 - 100 mmHg. The reference range was not used to interpret this result as normal/abnormal . HCO3 (test code = See_Comment L [Automate d message] 1781401775) The system [employer] generated this result transmit rudolph reference range : 22 - 26 mEq/L. The reference range was not used to interpret this result as normal/abnormal . BE (test code = See_Comment L [Automated message] 4933104364) The system [employer] generated this result transmit rudolph reference range : -3.0 - 3.0 mEq/ L. The reference r adama was not used to interpret this result as normal/abnormal . THB (test code = 9.7 g/dL 13.5-18.0 L 6348745405) %O2HB (test code = 98.6 % 94.0-99.0 9496644051) %COHB ART (test code = 0.3 % 0.0-1.5 5341046185) %METHB ART (test code = 0.4 % 0.4-1.5 6977868551) VOL%O2 ART (test code = 14.0 % 15.0-23.0 L QUES 3100605455) NA (test code = 138 mmol/L 135-145 1985114253) K+ (test code = 2.6 mmol/L 3.5-5.0 LL 7853662159) AC CA IONZ (test code = 4.00 mg/dL 4.50-5.30 L 8752269920) GLUCOSE (test code = 84 mg/dL 70-110 5108814837) Lab Interpretation Abnormal (test code = 29969-5) [facility]-15 01:01:49 Test Item Value Reference Range Interpretation Comments PH (test code = 2) 7.35-7.45 PCO2 (test code = See_Comment L [Automate d message] 8240302185) The system [employer] generated this result transmit rudolph reference range : 35 - 45 mmHg. The reference range was not used to interpret this result as normal/abnormal . PO2 (test code = See_Comment H [Automated message] 7747386477) The system [employer] generated this result transmit rudolph reference range : 80 - 100 mmHg. The reference range was not used to interpret this result as normal/abnormal . HCO3 (test code = See_Comment [Automate d message] 4511810770) The system [employer] generated this result transmit rudolph reference range : 22 - 26 mEq/L. The reference range was not used to interpret this result as normal/abnormal . BE (test code = See_Comment [Automated message] 0296613483) The system [employer] generated this result transmit rudolph reference range : -3.0 - 3.0 mEq/ L. The reference r adama was not used to interpret this result as normal/abnormal . THB (test code = 11.8 g/dL 13.5-18.0 L 4153662374) %O2HB (test code = 99.1 % 94.0-99.0 H 3573113764) %COHB ART (test code = 0.0 % 0.0-1.5 5206836648) %METHB ART (test code = 0.3 % 0.4-1.5 L 0383172104) VOL%O2 ART (test code = 17.0 % 15.0-23.0 QUES 8766649392) NA (test code = 135 mmol/L 135-145 6477173816) K+ (test code = 3.3 mmol/L 3.5-5.0 L 5301434823) AC CA IONZ (test code = 4.60 mg/dL 4.50-5.30 7254333796) GLUCOSE (test code = 105 mg/dL 70-110 3301262393) Lab Interpretation Abnormal (test code = 61606-2) [facility]-15 01:01:49 Test Item Value Reference Range Interpretation Comments PH (test code = 2) 7.35-7.45 PCO2 (test code = See_Comment L [Automate d message] 3423410873) The system [employer] generated this result transmit rudolph reference range : 35 - 45 mmHg. The reference range was not used to interpret this result as normal/abnormal . PO2 (test code = See_Comment H [Automated message] 5095736241) The system [employer] generated this result transmit rudolph reference range : 80 - 100 mmHg. The reference range was not used to interpret this result as normal/abnormal . HCO3 (test code = See_Comment [Automate d message] 8116896230) The system [employer] generated this result transmit rudolph reference range : 22 - 26 mEq/L. The reference range was not used to interpret this result as normal/abnormal . BE (test code = See_Comment [Automated message] 1984780641) The system [employer] generated this result transmit rudolph reference range : -3.0 - 3.0 mEq/ L. The reference r adama was not used to interpret this result as normal/abnormal . THB (test code = 11.8 g/dL 13.5-18.0 L 5908843870) %O2HB (test code = 99.1 % 94.0-99.0 H 6946369078) %COHB ART (test code = 0.0 % 0.0-1.5 1480317170) %METHB ART (test code = 0.3 % 0.4-1.5 L 3981919526) VOL%O2 ART (test code = 17.0 % 15.0-23.0 QUES 5398926174) NA (test code = 135 mmol/L 135-145 9782933649) K+ (test code = 3.3 mmol/L 3.5-5.0 L 3897632733) AC CA IONZ (test code = 4.60 mg/dL 4.50-5.30 5074271171) GLUCOSE (test code = 105 mg/dL 70-110 0796707914) Lab Interpretation Abnormal (test code = 64215-7) [facility]-04-15 00:55:17 Test Item Value Reference Range Interpretation Comments PH (test code = 2) 7.35-7.45 PCO2 (test code = See_Comment [Automate d message] 3765925625) The system [employer] generated this result transmit rudolph reference range : 35 - 45 mmHg. The reference range was not used to interpret this result as normal/abnormal . PO2 (test code = See_Comment H [Automated message] 8701379449) The system [employer] generated this result transmit rudolph reference range : 80 - 100 mmHg. The reference range was not used to interpret this result as normal/abnormal . HCO3 (test code = See_Comment [Automate d message] 6282210482) The system [employer] generated this result transmit rudolph reference range : 22 - 26 mEq/L. The reference range was not used to interpret this result as normal/abnormal . BE (test code = See_Comment [Automated message] 0652631529) The system [employer] generated this result transmit rudolph reference range : -3.0 - 3.0 mEq/ L. The reference r adama was not used to interpret this result as normal/abnormal . THB (test code = 11.7 g/dL 13.5-18.0 L 0974032444) %O2HB (test code = 99.1 % 94.0-99.0 H 3019008539) %COHB ART (test code = 0.3 % 0.0-1.5 9111529978) %METHB ART (test code = 0.0 % 0.4-1.5 L 9835332359) VOL%O2 ART (test code = 16.9 % 15.0-23.0 QUES 5139958694) NA (test code = 133 mmol/L 135-145 L 4492443054) K+ (test code = 4.4 mmol/L 3.5-5.0 0432327113) AC CA IONZ (test code = 4.80 mg/dL 4.50-5.30 1154447647) GLUCOSE (test code = 143 mg/dL 70-110 H 9983829464) Lab Interpretation Abnormal (test code = 65898-7) [facility]-15 00:55:17 Test Item Value Reference Range Interpretation Comments PH (test code = 2) 7.35-7.45 PCO2 (test code = See_Comment [Automate d message] 9859655269) The system [employer] generated this result transmit rudolph reference range : 35 - 45 mmHg. The reference range was not used to interpret this result as normal/abnormal . PO2 (test code = See_Comment H [Automated message] 2991925695) The system [employer] generated this result transmit rudolph reference range : 80 - 100 mmHg. The reference range was not used to interpret this result as normal/abnormal . HCO3 (test code = See_Comment [Automate d message] 2079326396) The system [employer] generated this result transmit rudolph reference range : 22 - 26 mEq/L. The reference range was not used to interpret this result as normal/abnormal . BE (test code = See_Comment [Automated message] 7007475300) The system [employer] generated this result transmit rudolph reference range : -3.0 - 3.0 mEq/ L. The reference r adama was not used to interpret this result as normal/abnormal . THB (test code = 11.7 g/dL 13.5-18.0 L 8569771614) %O2HB (test code = 99.1 % 94.0-99.0 H 0890204782) %COHB ART (test code = 0.3 % 0.0-1.5 8670875959) %METHB ART (test code = 0.0 % 0.4-1.5 L 7748725713) VOL%O2 ART (test code = 16.9 % 15.0-23.0 QUES 0987448768) NA (test code = 133 mmol/L 135-145 L 3392892307) K+ (test code = 4.4 mmol/L 3.5-5.0 7900187793) AC CA IONZ (test code = 4.80 mg/dL 4.50-5.30 2610574235) GLUCOSE (test code = 143 mg/dL 70-110 H 3649888137) Lab Interpretation Abnormal (test code = 63365-3) [facility]-15 00:54:37 Test Item Value Reference Range Interpretation Comments PH (test code = 2) 7.35-7.45 PCO2 (test code = See_Comment [Automate d message] 1483683736) The system [employer] generated this result transmit rudolph reference range : 35 - 45 mmHg. The reference range was not used to interpret this result as normal/abnormal . PO2 (test code = See_Comment H [Automated message] 9237613176) The system [employer] generated this result transmit rudolph reference range : 80 - 100 mmHg. The reference range was not used to interpret this result as normal/abnormal . HCO3 (test code = See_Comment [Automate d message] 0425491342) The system [employer] generated this result transmit rudolph reference range : 22 - 26 mEq/L. The reference range was not used to interpret this result as normal/abnormal . BE (test code = See_Comment [Automated message] 6644718021) The system [employer] generated this result transmit rudolph reference range : -3.0 - 3.0 mEq/ L. The reference r adama was not used to interpret this result as normal/abnormal . THB (test code = 8.5 g/dL 13.5-18.0 L 8834037733) %O2HB (test code = 98.8 % 94.0-99.0 6874618175) %COHB ART (test code = 0.5 % 0.0-1.5 8615017610) %METHB ART (test code = 0.3 % 0.4-1.5 L 1239694401) VOL%O2 ART (test code = 12.6 % 15.0-23.0 L QUES 0983615484) NA (test code = 132 mmol/L 135-145 L 8656209621) K+ (test code = 4.5 mmol/L 3.5-5.0 9626222870) AC CA IONZ (test code = 4.60 mg/dL 4.50-5.30 9721012527) GLUCOSE (test code = 155 mg/dL 70-110 H 4247261845) Lab Interpretation Abnormal (test code = 63878-7) [facility]-15 00:54:37 Test Item Value Reference Range Interpretation Comments PH (test code = 2) 7.35-7.45 PCO2 (test code = See_Comment [Automate d message] 8019455083) The system [employer] generated this result transmit rudolph reference range : 35 - 45 mmHg. The reference range was not used to interpret this result as normal/abnormal . PO2 (test code = See_Comment H [Automated message] 9494140463) The system [employer] generated this result transmit rudolph reference range : 80 - 100 mmHg. The reference range was not used to interpret this result as normal/abnormal . HCO3 (test code = See_Comment [Automate d message] 9716846839) The system [employer] generated this result transmit rudolph reference range : 22 - 26 mEq/L. The reference range was not used to interpret this result as normal/abnormal . BE (test code = See_Comment [Automated message] 3734046254) The system [employer] generated this result transmit rudolph reference range : -3.0 - 3.0 mEq/ L. The reference r adama was not used to interpret this result as normal/abnormal . THB (test code = 8.5 g/dL 13.5-18.0 L 5638038950) %O2HB (test code = 98.8 % 94.0-99.0 2473329232) %COHB ART (test code = 0.5 % 0.0-1.5 1378087848) %METHB ART (test code = 0.3 % 0.4-1.5 L 2920404964) VOL%O2 ART (test code = 12.6 % 15.0-23.0 L QUES 6683629332) NA (test code = 132 mmol/L 135-145 L 7649251392) K+ (test code = 4.5 mmol/L 3.5-5.0 3095673401) AC CA IONZ (test code = 4.60 mg/dL 4.50-5.30 9283830621) GLUCOSE (test code = 155 mg/dL 70-110 H 9777365670) Lab Interpretation Abnormal (test code = 85303-5) [facility]-15 00:53:11 Test Item Value Reference Range Interpretation Comments PH (test code = 2) 7.35-7.45 PCO2 (test code = See_Comment [Automate d message] 4814737779) The system [employer] generated this result transmit rudolph reference range : 35 - 45 mmHg. The reference range was not used to interpret this result as normal/abnormal . PO2 (test code = See_Comment H [Automated message] 2715322349) The system [employer] generated this result transmit rudolph reference range : 80 - 100 mmHg. The reference range was not used to interpret this result as normal/abnormal . HCO3 (test code = See_Comment [Automate d message] 0714936277) The system [employer] generated this result transmit rudolph reference range : 22 - 26 mEq/L. The reference range was not used to interpret this result as normal/abnormal . BE (test code = See_Comment [Automated message] 2488615586) The system [employer] generated this result transmit rudolph reference range : -3.0 - 3.0 mEq/ L. The reference r adama was not used to interpret this result as normal/abnormal . THB (test code = 8.3 g/dL 13.5-18.0 LL 6824007980) %O2HB (test code = 98.9 % 94.0-99.0 9908353050) %COHB ART (test code = 0.4 % 0.0-1.5 0372227442) %METHB ART (test code = 0.3 % 0.4-1.5 L 4697703063) VOL%O2 ART (test code = 12.3 % 15.0-23.0 L QUES 9037210275) NA (test code = 131 mmol/L 135-145 L 5140045485) K+ (test code = 4.6 mmol/L 3.5-5.0 7795508720) AC CA IONZ (test code = 4.60 mg/dL 4.50-5.30 4789104587) GLUCOSE (test code = 161 mg/dL 70-110 H 2658969888) Lab Interpretation Abnormal (test code = 97699-7) [facility]-15 00:53:11 Test Item Value Reference Range Interpretation Comments PH (test code = 2) 7.35-7.45 PCO2 (test code = See_Comment [Automate d message] 4677386852) The system [employer] generated this result transmit rudolph reference range : 35 - 45 mmHg. The reference range was not used to interpret this result as normal/abnormal . PO2 (test code = See_Comment H [Automated message] 9021194448) The system [employer] generated this result transmit rudolph reference range : 80 - 100 mmHg. The reference range was not used to interpret this result as normal/abnormal . HCO3 (test code = See_Comment [Automate d message] 7365616736) The system [employer] generated this result transmit rudolph reference range : 22 - 26 mEq/L. The reference range was not used to interpret this result as normal/abnormal . BE (test code = See_Comment [Automated message] 1269917386) The system [employer] generated this result transmit rudolph reference range : -3.0 - 3.0 mEq/ L. The reference r adama was not used to interpret this result as normal/abnormal . THB (test code = 8.3 g/dL 13.5-18.0 LL 0816402971) %O2HB (test code = 98.9 % 94.0-99.0 5282181246) %COHB ART (test code = 0.4 % 0.0-1.5 6259610199) %METHB ART (test code = 0.3 % 0.4-1.5 L 6187517676) VOL%O2 ART (test code = 12.3 % 15.0-23.0 L QUES 6315126314) NA (test code = 131 mmol/L 135-145 L 6058449330) K+ (test code = 4.6 mmol/L 3.5-5.0 1287947751) AC CA IONZ (test code = 4.60 mg/dL 4.50-5.30 6147656912) GLUCOSE (test code = 161 mg/dL 70-110 H 5963904168) Lab Interpretation Abnormal (test code = 95666-5) [facility]-15 00:52:26 Test Item Value Reference Range Interpretation Comments PH (test code = 2) 7.35-7.45 L PCO2 (test code = See_Comment [Automate d message] 0432275698) The system [employer] generated this result transmit rudolph reference range : 35 - 45 mmHg. The reference range was not used to interpret this result as normal/abnormal . PO2 (test code = See_Comment H [Automated message] 8500740002) The system [employer] generated this result transmit rudolph reference range : 80 - 100 mmHg. The reference range was not used to interpret this result as normal/abnormal . HCO3 (test code = See_Comment L [Automate d message] 0464824275) The system [employer] generated this result transmit rudolph reference range : 22 - 26 mEq/L. The reference range was not used to interpret this result as normal/abnormal . BE (test code = See_Comment L [Automated message] 4225006156) The system [employer] generated this result transmit rudolph reference range : -3.0 - 3.0 mEq/ L. The reference r adama was not used to interpret this result as normal/abnormal . THB (test code = 10.8 g/dL 13.5-18.0 L 4953529250) %O2HB (test code = 98.6 % 94.0-99.0 0022270852) %COHB ART (test code = 0.3 % 0.0-1.5 1369843195) %METHB ART (test code = 0.3 % 0.4-1.5 L 9065027357) VOL%O2 ART (test code = 15.7 % 15.0-23.0 QUES 3298023120) NA (test code = 132 mmol/L 135-145 L 4765784276) K+ (test code = 4.7 mmol/L 3.5-5.0 3702517035) AC CA IONZ (test code = 4.40 mg/dL 4.50-5.30 L 2423538828) GLUCOSE (test code = 179 mg/dL 70-110 H 4809589665) Lab Interpretation Abnormal (test code = 43850-7) [facility]-15 00:52:26 Test Item Value Reference Range Interpretation Comments PH (test code = 2) 7.35-7.45 L PCO2 (test code = See_Comment [Automate d message] 6209063973) The system [employer] generated this result transmit rudolph reference range : 35 - 45 mmHg. The reference range was not used to interpret this result as normal/abnormal . PO2 (test code = See_Comment H [Automated message] 2350730321) The system [employer] generated this result transmit rudolph reference range : 80 - 100 mmHg. The reference range was not used to interpret this result as normal/abnormal . HCO3 (test code = See_Comment L [Automate d message] 5664916230) The system [employer] generated this result transmit rudolph reference range : 22 - 26 mEq/L. The reference range was not used to interpret this result as normal/abnormal . BE (test code = See_Comment L [Automated message] 0026228827) The system [employer] generated this result transmit rudolph reference range : -3.0 - 3.0 mEq/ L. The reference r adama was not used to interpret this result as normal/abnormal . THB (test code = 10.8 g/dL 13.5-18.0 L 2615312231) %O2HB (test code = 98.6 % 94.0-99.0 6983533018) %COHB ART (test code = 0.3 % 0.0-1.5 4736297016) %METHB ART (test code = 0.3 % 0.4-1.5 L 7773514445) VOL%O2 ART (test code = 15.7 % 15.0-23.0 QUES 4426437511) NA (test code = 132 mmol/L 135-145 L 9915467236) K+ (test code = 4.7 mmol/L 3.5-5.0 6179514834) AC CA IONZ (test code = 4.40 mg/dL 4.50-5.30 L 8288559039) GLUCOSE (test code = 179 mg/dL 70-110 H 1060542922) Lab Interpretation Abnormal (test code = 28650-0) [facility] GLUCOSE (AUTOMATED)2022-04-15 00:08:21 Test Item Value Reference Range Interpretation Comments POCT GLU (test code = 6786578652) 178 mg/dL 70-110 H Lab Interpretation (test code = Abnormal 57720-5) [facility] GLUCOSE (AUTOMATED)2022-04-15 00:08:21 Test Item Value Reference Range Interpretation Comments POCT GLU (test code = 5479236043) 178 mg/dL 70-110 H Lab Interpretation (test code = Abnormal 38175-2) [facility] Packed RBC (in units), 1 Units 2022-04-14 18:57:54 Test Item Value Reference Range Interpretation Comments Cross Match Result Compatible (test code = 4409) ISBT Blood Type Code (test code = 973746) Unit Blood Type (test O Pos code = 4410) Unit Number (test [id number] code = 4411) Blood Expiration Date & Time (test code = 690675) Status Information Issued (test code = 4412) Product Red Blood Cells Identification (test code = 4413) Product Code (test [id number] Performed at [facility] code = 4414) Laboratory Services - [facility] Blood [address] [place] [address]Vgws Free: [phone] A No. [id number] [facility] Packed RBC (in units), 1 Units 2022-04-14 18:57:54 Test Item Value Reference Range Interpretation Comments Cross Match Result Compatible (test code = 4409) ISBT Blood Type Code (test code = 886034) Unit Blood Type (test O Pos code = 4410) Unit Number (test [id number] code = 4411) Blood Expiration Date & Time (test code = 176510) Status Information Issued (test code = 4412) Product Red Blood Cells Identification (test code = 4413) Product Code (test [id number] Performed at [facility] code = 4414) Laboratory Services [facility] Blood [address] [address]Pvfp Free: [phone] A No. [id number] [facility] GLUCOSE (AUTOMATED)2022-04-14 17:17:57 Test Item Value Reference Range Interpretation Comments POCT GLU (test code = 7032001423) 172 mg/dL 70-110 H Lab Interpretation (test code = Abnormal 38499-4) [facility] GLUCOSE (AUTOMATED)2022-04-14 17:17:57 Test Item Value Reference Range Interpretation Comments POCT GLU (test code = 2051759692) 172 mg/dL 70-110 H Lab Interpretation (test code = Abnormal 10612-1) [facility] and Screen - ONCE [id number] 16:33:50 Test Item Value Reference Range Interpretation Comments ABO & RH (test code O POSITIVE Performe d at [facility] = 20) Laboratory Serv [facility] Blood [facility] [address] [facility] [address]Qpku Free: [phone] A No. [id number] IAT (test code = Negative Performed a t [facility] 1185) [facility] Blood [facility]3 [address] [facility] [address]Jggh Free: [phone] A No. [id number] [facility] and Screen - ONCE [id number] 16:33:50 Test Item Value Reference Range Interpretation Comments ABO & RH (test code O POSITIVE Performe d at [facility] = 20) [facility] Blood [facility] [address] [place] [address]Sqzf Free: [phone] A No. [id number] IAT (test code = Negative Performed a t [facility] 1185) Laboratory [facility] Blood [facility] [place] [address]Zsuv Free: [phone] A No. [id number] [facility] GLUCOSE (AUTOMATED)2022-04-14 13:36:26 Test Item Value Reference Range Interpretation Comments POCT GLU (test code = 4729028166) 203 mg/dL 70-110 H Lab Interpretation (test code = Abnormal 36292-6) [facility] GLUCOSE (AUTOMATED)2022-04-14 13:36:26 Test Item Value Reference Range Interpretation Comments POCT GLU (test code = 1017351174) 203 mg/dL 70-110 H Lab Interpretation (test code = Abnormal 87851-3) [facility] GLUCOSE (AUTOMATED)2022-04-14 04:11:31 Test Item Value Reference Range Interpretation Comments POCT GLU (test code = 0761771303) 105 mg/dL 70-110 Lab Interpretation (test code = Normal 16061-0) [facility] GLUCOSE (AUTOMATED)2022-04-14 04:11:31 Test Item Value Reference Range Interpretation Comments POCT GLU (test code = 5377821519) 105 mg/dL 70-110 Lab Interpretation (test code = Normal 88027-1) [facility] GLUCOSE (AUTOMATED)2022-04-14 00:03:58 Test Item Value Reference Range Interpretation Comments POCT GLU (test code = 3862468744) 128 mg/dL 70-110 H Lab Interpretation (test code = Abnormal 70616-8) [facility] GLUCOSE (AUTOMATED)2022-04-14 00:03:58 Test Item Value Reference Range Interpretation Comments POCT GLU (test code = 5694095631) 128 mg/dL 70-110 H Lab Interpretation (test code = Abnormal 09661-1) [facility] [id number] 22:14:48 Test Item Value Reference Range Interpretation Comments IONIZED CA (test code = 4.10 mg/dL 4.50-5.30 L 8100811863) PH SERUM (test code = 1636085578) 7.35-7.45 Lab Interpretation (test code = Abnormal 19898-8) [id number] 22:14:48 Test Item Value Reference Range Interpretation Comments IONIZED CA (test code = 4.10 mg/dL 4.50-5.30 L 5363595228) PH SERUM (test code = 1922962460) 7.35-7.45 Lab Interpretation (test code = Abnormal 24890-6) [facility] (for use with Heparin Infusion)2022-04-13 21:43:14 Test Item Value Reference Range Interpretation Comments APTT Patient (test code See_Comment H [Au tomated message] = 3173-2) The system [employer] generated this result transmitted ref erence range: 26 - 36 Seconds. The reference range was not used to int erpret this result as normal/abnormal . Lab Interpretation (test Abnormal code = 73841-2) [facility] (for use with Heparin Infusion)2022-04-13 21:43:14 Test Item Value Reference Range Interpretation Comments APTT Patient (test code See_Comment H [Au tomated message] = 3173-2) The system [employer] generated this result transmitted ref erence range: 26 - 36 Seconds. The reference range was not used to int erpret this result as normal/abnormal . Lab Interpretation (test Abnormal code = 89345-0) [id number] 17:52:12 Test Item Value Reference Range Interpretation Comments PTH-INTACT (test code = 81.0 pg/mL 12.0-88.0 6727936565) PTH-CA Interpretation [facility] clinical (test code = 1610774162) stephenie a needed for interpretation. CALCIUM (test code = 8.5 mg/dL 8.6-10.6 L 3276401425) Lab Interpretation (test Abnormal code = 65263-7) [facility] [id number] 17:52:12 Test Item Value Reference Range Interpretation Comments PTH-INTACT (test code = 81.0 pg/mL 12.0-88.0 4133285067) PTH-CA Interpretation [facility] clinical (test code = 8220528625) stephenie a needed for interpretation. CALCIUM (test code = 8.5 mg/dL 8.6-10.6 L 9416194236) Lab Interpretation (test Abnormal code = 67531-2) [facility] GLUCOSE (AUTOMATED)2022-04-13 17:37:51 Test Item Value Reference Range Interpretation Comments POCT GLU (test code = 8609984766) 108 mg/dL 70-110 Lab Interpretation (test code = Normal 57040-2) [facility] GLUCOSE (AUTOMATED)2022-04-13 17:37:51 Test Item Value Reference Range Interpretation Comments POCT GLU (test code = 8776414124) 108 mg/dL 70-110 Lab Interpretation (test code = Normal 87746-6) [facility] [id number] 14:01:16 Test Item Value Reference Range Interpretation Comments IRON (test code = 9661857518) 54 ug/dL 50-160 TIBC (test code = 0829009852) 106 ug/dL 250-410 L % FE SAT (test code = 3205862881) 51 % 20-50 H Lab Interpretation (test code = Abnormal 29910-3) [facility] [id number] 14:01:16 Test Item Value Reference Range Interpretation Comments IRON (test code = 6117915010) 54 ug/dL 50-160 TIBC (test code = 5020560472) 106 ug/dL 250-410 L % FE SAT (test code = 4400321367) 51 % 20-50 H Lab Interpretation (test code = Abnormal 39842-9) [facility] METABOLIC PANEL (NA, K, CL, CO2, GLUCOSE, BUN, CREATININE, CA)2022-04-13 13:52:14 Test Item Value Reference Range Interpretation Comments NA (test code = 135 mmol/L 135-145 6003446227) K (test code = 4.1 mmol/L 3.5-5.0 0008990343) CL (test code = 100 mmol/L 98-108 9110458597) CO2 TOTAL (test code = 24 mmol/L 23-31 8124364464) AGAP (test code = 2-16 3186159326) BUN (test code = 18 mg/dL 7-23 1376936288) GLUCOSE (test code = 100 mg/dL 70-110 7137763155) CREATININE (test code = 4.28 mg/dL 0.60-1.25 H 9982556806) CALCIUM (test code = 9.0 mg/dL 8.6-10.6 0521417263) eGFR (test code = mL/min/1.73m2 1436389952) MARINO (test code = MARINO) Association of Glomerular Filtration Rate (GFR) and Staging of Kidney Disease* + --+ --+ ------+| GFR (mL/min/1.73 m2) ?| With Kidney Damage ?| ?Without Kidney Damage+ --------+ --------+ +| ?>90 ?| ?Stage one ?| ? Normal ?+ ---+ ---+ -------+| ?60-89 ?| ?Stage two ?| ? Decreased GFR ? + --+ --+ ------+| ?30-59 ?| ?Stage three ?| ? Stage three ? + --+ --+ ------+| ?15-29 ?| ?Stage four ? | ? Stage four ?+ ---+ ---+ -------+| ?<15 (or dialysis) ? ?| ?Stage five ? | ? Stage five ?+ ---+ ---+ -------+ *Each stage assumes the associated GFR level has been in effect for at least three months. ?Stages 1 to 5, with or without kidney disease, indicate chronic kidney disease. Notes: Determination of stages one and two (with eGFR >59mL/min/1.73 m2) requires estimation of kidney damage for at least three months as defined by structural or functional abnormalities of the kidney, manifested by either:Pathological abnormalities or Markers of kidney damage (including abnormalities in the composition of the blood or urine or abnormalities in imaging tests). Lab Interpretation Abnormal (test code = 05066-3) [facility] 13:52:14 Test Item Value Reference Range Interpretation Comments MAGNESIUM (test code = 6040960307) 2.2 mg/dL 1.7-2.4 Lab Interpretation (test code = Normal 40014-3) [facility] [id number] 13:52:14 Test Item Value Reference Range Interpretation Comments PHOSPHORUS (test code = 3799180894) 3.9 mg/dL 2.5-5.0 Lab Interpretation (test code = Normal 32508-8) [facility] METABOLIC PANEL (NA, K, CL, CO2, GLUCOSE, BUN, CREATININE, CA)2022-04-13 13:52:14 Test Item Value Reference Range Interpretation Comments NA (test code = 135 mmol/L 135-145 4567342580) K (test code = 4.1 mmol/L 3.5-5.0 3651104167) CL (test code = 100 mmol/L 98-108 5017009364) CO2 TOTAL (test code = 24 mmol/L 23-31 3991616886) AGAP (test code = 2-16 5080056870) BUN (test code = 18 mg/dL 7-23 5027518065) GLUCOSE (test code = 100 mg/dL 70-110 0714570813) CREATININE (test code = 4.28 mg/dL 0.60-1.25 H 7918353995) CALCIUM (test code = 9.0 mg/dL 8.6-10.6 8971528400) eGFR (test code = mL/min/1.73m2 7692695678) MARINO (test code = MARINO) Association of Glomerular Filtration Rate (GFR) and Staging of Kidney Disease* + --+ --+ ------+| GFR (mL/min/1.73 m2) ?| With Kidney Damage ?| ?Without Kidney Damage+ --------+ --------+ +| ?>90 ?| ?Stage one ?| ? Normal ?+ ---+ ---+ -------+| ?60-89 ?| ?Stage two ?| ? Decreased GFR ? + --+ --+ ------+| ?30-59 ?| ?Stage three ?| ? Stage three ? + --+ --+ ------+| ?15-29 ?| ?Stage four ? | ? Stage four ?+ ---+ ---+ -------+| ?<15 (or dialysis) ? ?| ?Stage five ? | ? Stage five ?+ ---+ ---+ -------+ *Each stage assumes the associated GFR level has been in effect for at least three months. ?Stages 1 to 5, with or without kidney disease, indicate chronic kidney disease. Notes: Determination of stages one and two (with eGFR >59mL/min/1.73 m2) requires estimation of kidney damage for at least three months as defined by structural or functional abnormalities of the kidney, manifested by either:Pathological abnormalities or Markers of kidney damage (including abnormalities in the composition of the blood or urine or abnormalities in imaging tests). Lab Interpretation Abnormal (test code = 59751-8) [facility]20[facility]-29 13:52:14 Test Item Value Reference Range Interpretation Comments MAGNESIUM (test code = 1087188029) 2.2 mg/dL 1.7-2.4 Lab Interpretation (test code = Normal 48701-4) [facility] [id number] 13:52:14 Test Item Value Reference Range Interpretation Comments PHOSPHORUS (test code = 2375634743) 3.9 mg/dL 2.5-5.0 Lab Interpretation (test code = Normal 97788-6) [facility] (for use with Heparin Infusion)2022-04-13 11:34:16 Test Item Value Reference Range Interpretation Comments APTT Patient (test code See_Comment H [Au tomated message] = 3173-2) The system [employer] generated this result transmitted ref erence range: 26 - 36 Seconds. The reference range was not used to int erpret this result as normal/abnormal . Lab Interpretation (test Abnormal code = 00333-5) [facility] (for use with Heparin Infusion)2022-04-13 11:34:16 Test Item Value Reference Range Interpretation Comments APTT Patient (test code See_Comment H [Au tomated message] = 3173-2) The system [employer] generated this result transmitted ref erence range: 26 - 36 Seconds. The reference range was not used to int erpret this result as normal/abnormal . Lab Interpretation (test Abnormal code = 86428-2) [facility] WITHOUT [id number] 11:27:49 Test Item Value Reference Range Interpretation Comments WBC (test code = 6690-2) See_Comment [A utomated message] The system [employer] generated this result transmit rudolph reference range : 4.20 - 10.70 10*3/?L. The reference range was not used to interpret this result as normal/abnormal . RBC (test code = 789-8) See_Comment L [Au tomated message] The system [employer] generated this result transmit rudolph reference range : 4.26 - 5.52 10* 6/?L. The reference r adama was not used to interpret this result as normal/abnormal . HGB (test code = 718-7) 7.2 g/dL 12.2-16.4 L HCT (test code = 4544-3) 22.8 % 38.4-49.3 L MCH (test code = 785-6) 27.5 pg 26.1-32.7 MCV (test code = 787-2) 87.0 fL 81.7-95.6 MCHC (test code = 786-4) 31.6 g/dL 31.2-35.0 PLT (test code = 777-3) See_Comment [Au tomated message] The system [facility] generated this result transmit rudolph reference range : 150 - 328 10*3/?L. The reference range was not used to interpret this result as normal/abnormal . MPV (test code = 11.7 fL 9.8-13.0 72215-3) RDW-CV (test code = 15.5 % 12.1-15.4 H 788-0) RDW-SD (test code = 48.9 fL 38.5-51.6 05460-4) NRBC x10^3 (test code = See_Comment [Au tomated message] 4304030866) The system [facility] generated this result transmit rudolph reference range : 10*3/?L. The reference range was not used to interpret this result as normal/abnormal . NRBC/100 WBC (test code See_Comment [Au tomated message] = 2089755027) The system [facility] generated this result transmit rudolph reference range : 0.0 - 10.0 /100 WBC s. The reference r adama was not used to interpret this result as normal/abnormal . IPF % (test code = 8501521756) Lab Interpretation (test Abnormal code = 64070-9) [facility] WITHOUT [id number] 11:27:49 Test Item Value Reference Range Interpretation Comments WBC (test code = 6690-2) See_Comment [A utomated message] The system [facility] generated this result transmit rudolph reference range : 4.20 - 10.70 10*3/?L. The reference range was not used to interpret this result as normal/abnormal . RBC (test code = 789-8) See_Comment L [Au tomated message] The system [employer] generated this result transmit rudolph reference range : 4.26 - 5.52 10* 6/?L. The reference r adama was not used to interpret this result as normal/abnormal . HGB (test code = 718-7) 7.2 g/dL 12.2-16.4 L HCT (test code = 4544-3) 22.8 % 38.4-49.3 L MCH (test code = 785-6) 27.5 pg 26.1-32.7 MCV (test code = 787-2) 87.0 fL 81.7-95.6 MCHC (test code = 786-4) 31.6 g/dL 31.2-35.0 PLT (test code = 777-3) See_Comment [Au tomated message] The system [employer] generated this result transmit rudolph reference range : 150 - 328 10*3/?L. The reference range was not used to interpret this result as normal/abnormal . MPV (test code = 11.7 fL 9.8-13.0 66507-5) RDW-CV (test code = 15.5 % 12.1-15.4 H 788-0) RDW-SD (test code = 48.9 fL 38.5-51.6 75647-3) NRBC x10^3 (test code = See_Comment [Au tomated message] 0356105998) The system [employer] generated this result transmit rudolph reference range : 10*3/?L. The reference range was not used to interpret this result as normal/abnormal . NRBC/100 WBC (test code See_Comment [Au tomated message] = 8256785543) The system [facility] generated this result transmit rudolph reference range : 0.0 - 10.0 /100 WBC s. The reference r adama was not used to interpret this result as normal/abnormal . IPF % (test code = 1673813101) Lab Interpretation (test Abnormal code = 20953-2) [facility] GLU[facility]2022-04-13 01:42:59 Test Item Value Reference Range Interpretation Comments POCT GLU (test code = 3515140992) 116 mg/dL 70-110 H Lab Interpretation (test code = Abnormal 88337-8) [facility] GLUCOSE (AUTOMATED)2022-04-13 01:42:59 Test Item Value Reference Range Interpretation Comments POCT GLU (test code = 6160373951) 116 mg/dL 70-110 H Lab Interpretation (test code = Abnormal 68357-1) [facility] GLUCOSE (AUTOMATED)2022-04-12 22:13:36 Test Item Value Reference Range Interpretation Comments POCT GLU (test code = 3898163500) 88 mg/dL 70-110 Lab Interpretation (test code = Normal 31151-0) [facility] GLUCOSE (AUTOMATED)2022-04-12 22:13:36 Test Item Value Reference Range Interpretation Comments POCT GLU (test code = 7064536003) 88 mg/dL 70-110 Lab Interpretation (test code = Normal 73913-3) [facility] (for use with Heparin Infusion)2022-04-12 19:58:55 Test Item Value Reference Range Interpretation Comments APTT Patient (test code See_Comment H [Au tomated message] = 3173-2) The system [employer] generated this result transmitted ref erence range: 26 - 36 Seconds. The reference range was not used to int erpret this result as normal/abnormal . Lab Interpretation (test Abnormal code = 12894-6) [facility] (for use with Heparin Infusion)2022-04-12 19:58:55 Test Item Value Reference Range Interpretation Comments APTT Patient (test code See_Comment H [Au tomated message] = 3173-2) The system [employer] generated this result transmitted ref erence range: 26 - 36 Seconds. The reference range was not used to int erpret this result as normal/abnormal . Lab Interpretation (test Abnormal code = 52049-5) [facility] GLUCOSE (AUTOMATED)2022-04-12 17:51:49 Test Item Value Reference Range Interpretation Comments POCT GLU (test code = 4048142796) 78 mg/dL 70-110 Lab Interpretation (test code = Normal 45839-2) [facility] GLUCOSE (AUTOMATED)2022-04-12 17:51:49 Test Item Value Reference Range Interpretation Comments POCT GLU (test code = 9919408198) 78 mg/dL 70-110 Lab Interpretation (test code = Normal 35083-9) [facility] GLUCOSE (AUTOMATED)2022-04-12 17:49:21 Test Item Value Reference Range Interpretation Comments POCT GLU (test code = 1470216324) 39 mg/dL 70-110 LL Lab Interpretation (test code = Abnormal 32940-9) [facility] GLUCOSE (AUTOMATED)2022-04-12 17:49:21 Test Item Value Reference Range Interpretation Comments POCT GLU (test code = 6457674787) 39 mg/dL 70-110 LL Lab Interpretation (test code = Abnormal 78909-3) [facility] GLUCOSE (AUTOMATED)2022-04-12 12:30:26 Test Item Value Reference Range Interpretation Comments POCT GLU (test code = 3874766551) 74 mg/dL 70-110 Lab Interpretation (test code = Normal 55172-1) [facility] GLUCOSE (AUTOMATED)2022-04-12 12:30:26 Test Item Value Reference Range Interpretation Comments POCT GLU (test code = 3479428971) 74 mg/dL 70-110 Lab Interpretation (test code = Normal 45688-9) [facility] GLUCOSE (AUTOMATED)2022-04-12 12:27:15 Test Item Value Reference Range Interpretation Comments POCT GLU (test code = 3802805343) 52 mg/dL 70-110 L Lab Interpretation (test code = Abnormal 56159-7) [facility] GLUCOSE (AUTOMATED)2022-04-12 12:27:15 Test Item Value Reference Range Interpretation Comments POCT GLU (test code = 1069632209) 52 mg/dL 70-110 L Lab Interpretation (test code = Abnormal 91974-7) [facility]12 12:06:35 Test Item Value Reference Range Interpretation Comments APTT Patient (test code See_Comment HH [Au tomated message] = 3173-2) The system [employer] generated this result transmitted ref erence range: 26 - 36 Seconds. The reference range was not used to int erpret this result as normal/abnormal . Lab Interpretation (test Abnormal code = 14284-0) [facility] (for use with Heparin Drip)2022-04-12 12:06:35 Test Item Value Reference Range Interpretation Comments APTT Patient (test code See_Comment HH [Au tomated message] = 7943-2) The system [employer] generated this result transmitted ref erence range: 26 - 36 Seconds. The reference range was not used to int erpret this result as normal/abnormal . Lab Interpretation (test Abnormal code = 97302-2) [facility] [id number] 09:30:55 Test Item Value Reference Range Interpretation Comments IONIZED CA (test code = 4.00 mg/dL 4.50-5.30 L 8962761127) PH SERUM (test code = 6894803154) 7.35-7.45 QUES Lab Interpretation (test code = Abnormal 66250-5) [facility] [id number] 09:30:55 Test Item Value Reference Range Interpretation Comments IONIZED CA (test code = 4.00 mg/dL 4.50-5.30 L 3950314469) PH SERUM (test code = 2511647673) 7.35-7.45 QUES Lab Interpretation (test code = Abnormal 97309-3) [facility] METABOLIC PANEL (NA, K, CL, CO2, GLUCOSE, BUN, CREATININE, CA)2022-04-12 09:29:35 Test Item Value Reference Range Interpretation Comments NA (test code = 138 mmol/L 135-145 9584431941) K (test code = 3.8 mmol/L 3.5-5.0 8368038544) CL (test code = 106 mmol/L 98-108 2598463125) CO2 TOTAL (test code = 22 mmol/L 23-31 L 1725121867) AGAP (test code = 2-16 8027277540) BUN (test code = 26 mg/dL 7-23 H 4985738572) GLUCOSE (test code = 70 mg/dL 70-110 8567850664) CREATININE (test code = 6.30 mg/dL 0.60-1.25 H 3492845822) CALCIUM (test code = 8.4 mg/dL 8.6-10.6 L 7846390266) eGFR (test code = mL/min/1.73m2 6660007413) MARINO (test code = MARINO) Association of Glomerular Filtration Rate (GFR) and Staging of Kidney Disease* + --+ --+ ------+| GFR (mL/min/1.73 m2) ?| With Kidney Damage ?| ?Without Kidney Damage+ --------+ --------+ +| ?>90 ?| ?Stage one ?| ? Normal ?+ ---+ ---+ -------+| ?60-89 ?| ?Stage two ?| ? Decreased GFR ? + --+ --+ ------+| ?30-59 ?| ?Stage three ?| ? Stage three ? + --+ --+ ------+| ?15-29 ?| ?Stage four ? | ? Stage four ?+ ---+ ---+ -------+| ?<15 (or dialysis) ? ?| ?Stage five ? | ? Stage five ?+ ---+ ---+ -------+ *Each stage assumes the associated GFR level has been in effect for at least three months. ?Stages 1 to 5, with or without kidney disease, indicate chronic kidney disease. Notes: Determination of stages one and two (with eGFR >59mL/min/1.73 m2) requires estimation of kidney damage for at least three months as defined by structural or functional abnormalities of the kidney, manifested by either:Pathological abnormalities or Markers of kidney damage (including abnormalities in the composition of the blood or urine or abnormalities in imaging tests). Lab Interpretation Abnormal (test code = 58913-1) [facility] METABOLIC PANEL (NA, K, CL, CO2, GLUCOSE, BUN, CREATININE, CA)2022-04-12 09:29:35 Test Item Value Reference Range Interpretation Comments NA (test code = 138 mmol/L 135-145 6761377884) K (test code = 3.8 mmol/L 3.5-5.0 8098720449) CL (test code = 106 mmol/L 98-108 4515984127) CO2 TOTAL (test code = 22 mmol/L 23-31 L 9412919922) AGAP (test code = 2-16 3973127394) BUN (test code = 26 mg/dL 7-23 H 1954190368) GLUCOSE (test code = 70 mg/dL 70-110 6611004713) CREATININE (test code = 6.30 mg/dL 0.60-1.25 H 7439978923) CALCIUM (test code = 8.4 mg/dL 8.6-10.6 L 4938405867) eGFR (test code = mL/min/1.73m2 5049171389) MARINO (test code = MARINO) Association of Glomerular Filtration Rate (GFR) and Staging of Kidney Disease* + --+ --+ ------+| GFR (mL/min/1.73 m2) ?| With Kidney Damage ?| ?Without Kidney Damage+ --------+ --------+ +| ?>90 ?| ?Stage one ?| ? Normal ?+ ---+ ---+ -------+| ?60-89 ?| ?Stage two ?| ? Decreased GFR ? + --+ --+ ------+| ?30-59 ?| ?Stage three ?| ? Stage three ? + --+ --+ ------+| ?15-29 ?| ?Stage four ? | ? Stage four ?+ ---+ ---+ -------+| ?<15 (or dialysis) ? ?| ?Stage five ? | ? Stage five ?+ ---+ ---+ -------+ *Each stage assumes the associated GFR level has been in effect for at least three months. ?Stages 1 to 5, with or without kidney disease, indicate chronic kidney disease. Notes: Determination of stages one and two (with eGFR >59mL/min/1.73 m2) requires estimation of kidney damage for at least three months as defined by structural or functional abnormalities of the kidney, manifested by either:Pathological abnormalities or Markers of kidney damage (including abnormalities in the composition of the blood or urine or abnormalities in imaging tests). Lab Interpretation Abnormal (test code = 11055-3) [facility]20[facility]-28 09:26:33 Test Item Value Reference Range Interpretation Comments MAGNESIUM (test code = 7035312222) 2.5 mg/dL 1.7-2.4 H Lab Interpretation (test code = Abnormal 21791-7) [facility] [id number] 09:26:33 Test Item Value Reference Range Interpretation Comments PHOSPHORUS (test code = 8393349562) 4.2 mg/dL 2.5-5.0 Lab Interpretation (test code = Normal 76093-6) [facility] Test Item Value Reference Range Interpretation Comments MAGNESIUM (test code = 0806733511) 2.5 mg/dL 1.7-2.4 H Lab Interpretation (test code = Abnormal 71393-7) [facility] [id number] 09:26:33 Test Item Value Reference Range Interpretation Comments PHOSPHORUS (test code = 9435423811) 4.2 mg/dL 2.5-5.0 Lab Interpretation (test code = Normal 69415-2) [facility]CBC WITHOUT [id number] 09:08:13 Test Item Value Reference Range Interpretation Comments WBC (test code = 6690-2) See_Comment [A utomated message] The system [employer] generated this result transmit rudolph reference range : 4.20 - 10.70 10*3/?L. The reference range was not used to interpret this result as normal/abnormal . RBC (test code = 789-8) See_Comment L [Au tomated message] The system [employer] generated this result transmit rudolph reference range : 4.26 - 5.52 10* 6/?L. The reference r adama was not used to interpret this result as normal/abnormal . HGB (test code = 718-7) 8.0 g/dL 12.2-16.4 L HCT (test code = 4544-3) 24.9 % 38.4-49.3 L MCH (test code = 785-6) 27.6 pg 26.1-32.7 MCV (test code = 787-2) 85.9 fL 81.7-95.6 MCHC (test code = 786-4) 32.1 g/dL 31.2-35.0 PLT (test code = 777-3) See_Comment [Au tomated message] The system [employer] generated this result transmit rudolph reference range : 150 - 328 10*3/?L. The reference range was not used to interpret this result as normal/abnormal . MPV (test code = 11.6 fL 9.8-13.0 03231-1) RDW-CV (test code = 15.6 % 12.1-15.4 H 788-0) RDW-SD (test code = 48.4 fL 38.5-51.6 79378-9) NRBC x10^3 (test code = See_Comment [Au tomated message] 5251553519) The system [employer] generated this result transmit rudolph reference range : 10*3/?L. The reference range was not used to interpret this result as normal/abnormal . NRBC/100 WBC (test code See_Comment [Au tomated message] = 0585044581) The system [facility] generated this result transmit rudolph reference range : 0.0 - 10.0 /100 WBC s. The reference r adama was not used to interpret this result as normal/abnormal . IPF % (test code = 8148013721) Lab Interpretation (test Abnormal code = 29994-8) [facility] WITHOUT [id number] 09:08:13 Test Item Value Reference Range Interpretation Comments WBC (test code = 6690-2) See_Comment [A utomated message] The system [employer] generated this result transmit rudolph reference range : 4.20 - 10.70 10*3/?L. The reference range was not used to interpret this result as normal/abnormal . RBC (test code = 789-8) See_Comment L [Au tomated message] The system [employer] generated this result transmit rudolph reference range : 4.26 - 5.52 10* 6/?L. The reference r adama was not used to interpret this result as normal/abnormal . HGB (test code = 718-7) 8.0 g/dL 12.2-16.4 L HCT (test code = 4544-3) 24.9 % 38.4-49.3 L MCH (test code = 785-6) 27.6 pg 26.1-32.7 MCV (test code = 787-2) 85.9 fL 81.7-95.6 MCHC (test code = 786-4) 32.1 g/dL 31.2-35.0 PLT (test code = 777-3) See_Comment [Au tomated message] The system [employer] generated this result transmit rudolph reference range : 150 - 328 10*3/?L. The reference range was not used to interpret this result as normal/abnormal . MPV (test code = 11.6 fL 9.8-13.0 26940-6) RDW-CV (test code = 15.6 % 12.1-15.4 H 788-0) RDW-SD (test code = 48.4 fL 38.5-51.6 17806-7) NRBC x10^3 (test code = See_Comment [Au tomated message] 7476717989) The system [employer] generated this result transmit rudolph reference range : 10*3/?L. The reference range was not used to interpret this result as normal/abnormal . NRBC/100 WBC (test code See_Comment [Au tomated message] = 5407478343) The system [facility] generated this result transmit rudolph reference range : 0.0 - 10.0 /100 WBC s. The reference r adama was not used to interpret this result as normal/abnormal . IPF % (test code = 4963094832) Lab Interpretation (test Abnormal code = 35635-1) [facility] (for use with Heparin Drip)2022-04-12 05:39:48 Test Item Value Reference Range Interpretation Comments APTT Patient (test code See_Comment [Au tomated message] = 3173-2) The system [employer] generated this result transmitted ref erence range: 26 - 36 Seconds. The reference range was not used to int erpret this result as normal/abnormal . Lab Interpretation (test Abnormal code = 13706-3) [facility] (for use with Heparin Drip)2022-04-12 05:39:48 Test Item Value Reference Range Interpretation Comments APTT Patient (test code See_Comment [Au tomated message] = 3173-2) The system [employer] generated this result transmitted ref erence range: 26 - 36 Seconds. The reference range was not used to int erpret this result as normal/abnormal . Lab Interpretation (test Abnormal code = 05542-3) [facility] GLUCOSE (AUTOMATED)2022-04-12 01:50:33 Test Item Value Reference Range Interpretation Comments POCT GLU (test code = 8722133613) 146 mg/dL 70-110 H Lab Interpretation (test code = Abnormal 52690-8) [facility] GLUCOSE (AUTOMATED)2022-04-12 01:50:33 Test Item Value Reference Range Interpretation Comments POCT GLU (test code = 4118157306) 146 mg/dL 70-110 H Lab Interpretation (test code = Abnormal 26574-3) [facility] GLUCOSE (AUTOMATED)2022-04-11 22:53:38 Test Item Value Reference Range Interpretation Comments POCT GLU (test code = 4311914252) 163 mg/dL 70-110 H Lab Interpretation (test code = Abnormal 40564-5) [facility] GLUCOSE (AUTOMATED)2022-04-11 22:53:38 Test Item Value Reference Range Interpretation Comments POCT GLU (test code = 9680360263) 163 mg/dL 70-110 H Lab Interpretation (test code = Abnormal 43636-8) [facility] (for use with Heparin Infusion)2022-04-11 18:54:56 Test Item Value Reference Range Interpretation Comments APTT Patient (test code = See_Comment [ Automated message] 3173-2) The system [employer] generated this result transmitted ref erence range: 26 - 36 Seconds. The re ference range was not u sed to interpret this result as normal/abnor mal. Lab Interpretation (test Normal code = 19033-3) [facility] (for use with Heparin Infusion)2022-04-11 18:54:56 Test Item Value Reference Range Interpretation Comments APTT Patient (test code = See_Comment [ Automated message] 3173-2) The system [employer] generated this result transmitted ref erence range: 26 - 36 Seconds. The re ference range was not u sed to interpret this result as normal/abnor mal. Lab Interpretation (test Normal code = 58814-0) [facility] (for use with Heparin Infusion)2022-04-11 18:54:56 Test Item Value Reference Range Interpretation Comments APTT Patient (test code = See_Comment [ Automated message] 3173-2) The system [employer] generated this result transmitted ref erence range: 26 - 36 Seconds. The re ference range was not u sed to interpret this result as normal/abnor mal. Lab Interpretation (test Normal code = 69360-2) [facility] GLUCOSE (AUTOMATED)2022-04-11 17:46:56 Test Item Value Reference Range Interpretation Comments POCT GLU (test code = 8001126302) 137 mg/dL 70-110 H Lab Interpretation (test code = Abnormal 25716-9) [facility] GLUCOSE (AUTOMATED)2022-04-11 17:46:56 Test Item Value Reference Range Interpretation Comments POCT GLU (test code = 8601503859) 137 mg/dL 70-110 H Lab Interpretation (test code = Abnormal 16350-9) [facility] GLUCOSE (AUTOMATED)2022-04-11 17:46:56 Test Item Value Reference Range Interpretation Comments POCT GLU (test code = 3840216885) 137 mg/dL 70-110 H Lab Interpretation (test code = Abnormal 38677-1) [facility] GLUCOSE (AUTOMATED)2022-04-11 13:38:30 Test Item Value Reference Range Interpretation Comments POCT GLU (test code = 7957641098) 184 mg/dL 70-110 H Lab Interpretation (test code = Abnormal 23207-3) [facility] GLUCOSE (AUTOMATED)2022-04-11 13:38:30 Test Item Value Reference Range Interpretation Comments POCT GLU (test code = 9947983529) 184 mg/dL 70-110 H Lab Interpretation (test code = Abnormal 46596-1) [facility] GLUCOSE (AUTOMATED)2022-04-11 13:38:30 Test Item Value Reference Range Interpretation Comments POCT GLU (test code = 2556916424) 184 mg/dL 70-110 H Lab Interpretation (test code = Abnormal 70093-8) [facility] Metabolic Panel (NA, K, CL, CO2, GLUCOSE, BUN, CREATININE, CA)2022-04-11 05:57:34 Test Item Value Reference Range Interpretation Comments NA (test code = 133 mmol/L 135-145 L 2021008741) K (test code = 4.6 mmol/L 3.5-5.0 4870498568) CL (test code = 103 mmol/L 98-108 9196889991) CO2 TOTAL (test code = 21 mmol/L 23-31 L 6540303243) AGAP (test code = 2-16 3515178279) BUN (test code = 17 mg/dL 7-23 9945694360) GLUCOSE (test code = 177 mg/dL 70-110 H 0207995418) CREATININE (test code = 4.35 mg/dL 0.60-1.25 H 3138929056) CALCIUM (test code = 8.7 mg/dL 8.6-10.6 7195014791) eGFR (test code = mL/min/1.73m2 9689326778) MARINO (test code = MARINO) Association of Glomerular Filtration Rate (GFR) and Staging of Kidney Disease* + --+ --+ ------+| GFR (mL/min/1.73 m2) ?| With Kidney Damage ?| ?Without Kidney Damage+ --------+ --------+ +| ?>90 ?| ?Stage one ?| ? Normal ?+ ---+ ---+ -------+| ?60-89 ?| ?Stage two ?| ? Decreased GFR ? + --+ --+ ------+| ?30-59 ?| ?Stage three ?| ? Stage three ? + --+ --+ ------+| ?15-29 ?| ?Stage four ? | ? Stage four ?+ ---+ ---+ -------+| ?<15 (or dialysis) ? ?| ?Stage five ? | ? Stage five ?+ ---+ ---+ -------+ *Each stage assumes the associated GFR level has been in effect for at least three months. ?Stages 1 to 5, with or without kidney disease, indicate chronic kidney disease. Notes: Determination of stages one and two (with eGFR >59mL/min/1.73 m2) requires estimation of kidney damage for at least three months as defined by structural or functional abnormalities of the kidney, manifested by either:Pathological abnormalities or Markers of kidney damage (including abnormalities in the composition of the blood or urine or abnormalities in imaging tests). Lab Interpretation Abnormal (test code = 32830-4) [facility] Vdvvr4382-31-38 05:57:34 Test Item Value Reference Range Interpretation Comments MAGNESIUM (test code = 0274057182) 1.9 mg/dL 1.7-2.4 Lab Interpretation (test code = Normal 06890-3) [facility] Iefrk6138-82-06 05:57:34 Test Item Value Reference Range Interpretation Comments PHOSPHORUS (test code = 7261075051) 4.5 mg/dL 2.5-5.0 Lab Interpretation (test code = Normal 63687-9) [facility] (NA, K, CL, CO2, GLUCOSE, BUN, CREATININE, CA)2022-04-11 05:57:34 Test Item Value Reference Range Interpretation Comments NA (test code = 133 mmol/L 135-145 L 9689355774) K (test code = 4.6 mmol/L 3.5-5.0 0749769330) CL (test code = 103 mmol/L 98-108 4126628164) CO2 TOTAL (test code = 21 mmol/L 23-31 L 2962592017) AGAP (test code = 2-16 9103532386) BUN (test code = 17 mg/dL 7-23 8628740484) GLUCOSE (test code = 177 mg/dL 70-110 H 3494195783) CREATININE (test code = 4.35 mg/dL 0.60-1.25 H 1822615429) CALCIUM (test code = 8.7 mg/dL 8.6-10.6 9880127641) eGFR (test code = mL/min/1.73m2 9465989087) MARINO (test code = MARINO) Association of Glomerular Filtration Rate (GFR) and Staging of Kidney Disease* + --+ --+ ------+| GFR (mL/min/1.73 m2) ?| With Kidney Damage ?| ?Without Kidney Damage+ --------+ --------+ +| ?>90 ?| ?Stage one ?| ? Normal ?+ ---+ ---+ -------+| ?60-89 ?| ?Stage two ?| ? Decreased GFR ? + --+ --+ ------+| ?30-59 ?| ?Stage three ?| ? Stage three ? + --+ --+ ------+| ?15-29 ?| ?Stage four ? | ? Stage four ?+ ---+ ---+ -------+| ?<15 (or dialysis) ? ?| ?Stage five ? | ? Stage five ?+ ---+ ---+ -------+ *Each stage assumes the associated GFR level has been in effect for at least three months. ?Stages 1 to 5, with or without kidney disease, indicate chronic kidney disease. Notes: Determination of stages one and two (with eGFR >59mL/min/1.73 m2) requires estimation of kidney damage for at least three months as defined by structural or functional abnormalities of the kidney, manifested by either:Pathological abnormalities or Markers of kidney damage (including abnormalities in the composition of the blood or urine or abnormalities in imaging tests). Lab Interpretation Abnormal (test code = 62509-6) [facility] Glvnv4694-43-74 05:57:34 Test Item Value Reference Range Interpretation Comments MAGNESIUM (test code = 9518364367) 1.9 mg/dL 1.7-2.4 Lab Interpretation (test code = Normal 96479-0) [facility] Aednh0343-57-30 05:57:34 Test Item Value Reference Range Interpretation Comments PHOSPHORUS (test code = 3521891684) 4.5 mg/dL 2.5-5.0 Lab Interpretation (test code = Normal 88954-6) [facility] (NA, K, CL, CO2, GLUCOSE, BUN, CREATININE, CA)2022-04-11 05:57:34 Test Item Value Reference Range Interpretation Comments NA (test code = 133 mmol/L 135-145 L 2468131028) K (test code = 4.6 mmol/L 3.5-5.0 0436011819) CL (test code = 103 mmol/L 98-108 6822728097) CO2 TOTAL (test code = 21 mmol/L 23-31 L 6968548240) AGAP (test code = 2-16 7606715576) BUN (test code = 17 mg/dL 7-23 9738480063) GLUCOSE (test code = 177 mg/dL 70-110 H 6546460953) CREATININE (test code = 4.35 mg/dL 0.60-1.25 H 9714655522) CALCIUM (test code = 8.7 mg/dL 8.6-10.6 2411856907) eGFR (test code = mL/min/1.73m2 8188439833) MARINO (test code = MARINO) Association of Glomerular Filtration Rate (GFR) and Staging of Kidney Disease* + --+ --+ ------+| GFR (mL/min/1.73 m2) ?| With Kidney Damage ?| ?Without Kidney Damage+ --------+ --------+ +| ?>90 ?| ?Stage one ?| ? Normal ?+ ---+ ---+ -------+| ?60-89 ?| ?Stage two ?| ? Decreased GFR ? + --+ --+ ------+| ?30-59 ?| ?Stage three ?| ? Stage three ? + --+ --+ ------+| ?15-29 ?| ?Stage four ? | ? Stage four ?+ ---+ ---+ -------+| ?<15 (or dialysis) ? ?| ?Stage five ? | ? Stage five ?+ ---+ ---+ -------+ *Each stage assumes the associated GFR level has been in effect for at least three months. ?Stages 1 to 5, with or without kidney disease, indicate chronic kidney disease. Notes: Determination of stages one and two (with eGFR >59mL/min/1.73 m2) requires estimation of kidney damage for at least three months as defined by structural or functional abnormalities of the kidney, manifested by either:Pathological abnormalities or Markers of kidney damage (including abnormalities in the composition of the blood or urine or abnormalities in imaging tests). Lab Interpretation Abnormal (test code = 78011-2) [facility] Dtwlt4846-19-39 05:57:34 Test Item Value Reference Range Interpretation Comments MAGNESIUM (test code = 8602600039) 1.9 mg/dL 1.7-2.4 Lab Interpretation (test code = Normal 66412-1) [facility] Ntewu3891-95-53 05:57:34 Test Item Value Reference Range Interpretation Comments PHOSPHORUS (test code = 3979658877) 4.5 mg/dL 2.5-5.0 Lab Interpretation (test code = Normal 80387-8) [facility] with Jdjjwrxspszh5484-36-61 05:34:27 Test Item Value Reference Range Interpretation Comments WBC (test code = See_Comment H [Automated 1290-2) message] The system which generated this result transmit rudolph reference range : 4.20 - 10.70 10*3/?L. The reference range was not used to interpret this result as normal/abnormal . RBC (test code = See_Comment L [Automated 269-8) message] The system which generated this result transmit rudolph reference range : 4.26 - 5.52 10*6/?L. The reference range was not used to interpret this result as normal/abnormal . HGB (test code = 10.0 g/dL 12.2-16.4 L 718-7) HCT (test code = 31.8 % 38.4-49.3 L 4544-3) MCV (test code = 86.9 fL 81.7-95.6 787-2) MCH (test code = 27.3 pg 26.1-32.7 785-6) MCHC (test code = 31.4 g/dL 31.2-35.0 786-4) RDW-SD (test code = 46.6 fL 38.5-51.6 60572-1) RDW-CV (test code = 14.6 % 12.1-15.4 788-0) PLT (test code = See_Comment [Automated 777-3) message] The system which generated this result transmit rudolph reference range : 150 - 328 10*3/ ?L. The reference range was not u sed to interpret th is result as normal/abnormal . MPV (test code = 11.3 fL 9.8-13.0 02381-4) NRBC/100 WBC (test See_Comment [Automat ed code = 7272699761) message] The system which generated this result transmit rudolph reference range : 0.0 - 10.0 /100 WBCs. The reference range was not used to interpret this result as normal/abnormal . NRBC x10^3 (test code See_Comment [Auto mated = 7151336655) message] The system which generated this result transmit rudolph reference range : 10*3/?L. The reference range was not used to interpret this result as normal/abnormal . GRAN MAT (NEUT) % 90.4 % (test code = 770-8) IMM GRAN % (test code 0.80 % = 0619079321) LYMPH % (test code = 4.0 % 736-9) MONO % (test code = 4.5 % 5905-5) EOS % (test code = 0.1 % 713-8) BASO % (test code = 0.2 % 706-2) GRAN MAT x10^3(ANC) 13.99 10*3/uL 1.99-6.95 H (test code = 9331384132) IMM GRAN x10^3 (test 0.13 10*3/uL 0.00-0.06 H code = 6271213579) LYMPH x10^3 (test code 0.62 10*3/uL 1.09-3.23 L = 731-0) MONO x10^3 (test code 0.70 10*3/uL 0.36-1.02 = 742-7) EOS x10^3 (test code = 0.06-0.53 L 711-2) BASO x10^3 (test code 0.03 10*3/uL 0.01-0.09 = 704-7) Lab Interpretation Abnormal (test code = 12323-5) [facility] with Ciouwvkigssz1641-49-92 05:34:27 Test Item Value Reference Range Interpretation Comments WBC (test code = See_Comment H [Automated 5590-2) message] The system which generated this result transmit rudolph reference range : 4.20 - 10.70 10*3/?L. The reference range was not used to interpret this result as normal/abnormal . RBC (test code = See_Comment L [Automated 759-8) message] The system which generated this result transmit rudolph reference range : 4.26 - 5.52 10*6/?L. The reference range was not used to interpret this result as normal/abnormal . HGB (test code = 10.0 g/dL 12.2-16.4 L 718-7) HCT (test code = 31.8 % 38.4-49.3 L 4544-3) MCV (test code = 86.9 fL 81.7-95.6 787-2) MCH (test code = 27.3 pg 26.1-32.7 785-6) MCHC (test code = 31.4 g/dL 31.2-35.0 786-4) RDW-SD (test code = 46.6 fL 38.5-51.6 05823-4) RDW-CV (test code = 14.6 % 12.1-15.4 788-0) PLT (test code = See_Comment [Automated 777-3) message] The system which generated this result transmit rudolph reference range : 150 - 328 10*3/ ?L. The reference range was not u sed to interpret th is result as normal/abnormal . MPV (test code = 11.3 fL 9.8-13.0 42003-5) NRBC/100 WBC (test See_Comment [Automat ed code = 9720640091) message] The system which generated this result transmit rudolph reference range : 0.0 - 10.0 /100 WBCs. The reference range was not used to interpret this result as normal/abnormal . NRBC x10^3 (test code See_Comment [Auto mated = 0987874378) message] The system which generated this result transmit rudolph reference range : 10*3/?L. The reference range was not used to interpret this result as normal/abnormal . GRAN MAT (NEUT) % 90.4 % (test code = 770-8) IMM GRAN % (test code 0.80 % = 8509629911) LYMPH % (test code = 4.0 % 736-9) MONO % (test code = 4.5 % 5905-5) EOS % (test code = 0.1 % 713-8) BASO % (test code = 0.2 % 706-2) GRAN MAT x10^3(ANC) 13.99 10*3/uL 1.99-6.95 H (test code = 7470067262) IMM GRAN x10^3 (test 0.13 10*3/uL 0.00-0.06 H code = 9058358683) LYMPH x10^3 (test code 0.62 10*3/uL 1.09-3.23 L = 731-0) MONO x10^3 (test code 0.70 10*3/uL 0.36-1.02 = 742-7) EOS x10^3 (test code = 0.06-0.53 L 711-2) BASO x10^3 (test code 0.03 10*3/uL 0.01-0.09 = 704-7) Lab Interpretation Abnormal (test code = 82528-7) [facility] with Tikwendwhvak9072-75-02 05:34:27 Test Item Value Reference Range Interpretation Comments WBC (test code = See_Comment H [Automated 6690-2) message] The system which generated this result transmit rudloph reference range : 4.20 - 10.70 10*3/?L. The reference range was not used to interpret this result as normal/abnormal . RBC (test code = See_Comment L [Automated 789-8) message] The system which generated this result transmit rudolph reference range : 4.26 - 5.52 10*6/?L. The reference range was not used to interpret this result as normal/abnormal . HGB (test code = 10.0 g/dL 12.2-16.4 L 718-7) HCT (test code = 31.8 % 38.4-49.3 L 4544-3) MCV (test code = 86.9 fL 81.7-95.6 787-2) MCH (test code = 27.3 pg 26.1-32.7 785-6) MCHC (test code = 31.4 g/dL 31.2-35.0 786-4) RDW-SD (test code = 46.6 fL 38.5-51.6 47361-3) RDW-CV (test code = 14.6 % 12.1-15.4 788-0) PLT (test code = See_Comment [Automated 777-3) message] The system which generated this result transmit rudolph reference range : 150 - 328 10*3/ ?L. The reference range was not u sed to interpret th is result as normal/abnormal . MPV (test code = 11.3 fL 9.8-13.0 57978-1) NRBC/100 WBC (test See_Comment [Automat ed code = 6579646247) message] The system which generated this result transmit rudolph reference range : 0.0 - 10.0 /100 WBCs. The reference range was not used to interpret this result as normal/abnormal . NRBC x10^3 (test code See_Comment [Auto mated = 7544499685) message] The system which generated this result transmit rudolph reference range : 10*3/?L. The reference range was not used to interpret this result as normal/abnormal . GRAN MAT (NEUT) % 90.4 % (test code = 770-8) IMM GRAN % (test code 0.80 % = 6906784905) LYMPH % (test code = 4.0 % 736-9) MONO % (test code = 4.5 % 5905-5) EOS % (test code = 0.1 % 713-8) BASO % (test code = 0.2 % 706-2) GRAN MAT x10^3(ANC) 13.99 10*3/uL 1.99-6.95 H (test code = 1836484631) IMM GRAN x10^3 (test 0.13 10*3/uL 0.00-0.06 H code = 9532959838) LYMPH x10^3 (test code 0.62 10*3/uL 1.09-3.23 L = 731-0) MONO x10^3 (test code 0.70 10*3/uL 0.36-1.02 = 742-7) EOS x10^3 (test code = 0.06-0.53 L 711-2) BASO x10^3 (test code 0.03 10*3/uL 0.01-0.09 = 704-7) Lab Interpretation Abnormal (test code = 83042-7) [facility] + Lactic Ndel6567-11-81 05:33:21 Test Item Value Reference Range Interpretation Comments PH (test code = 2) 7.35-7.45 PCO2 (test code = See_Comment L [Automate d 9242350487) message] The sy stem which generated this result transmitted reference range : 35 - 45 mmHg. The reference range was not used to interpret this result as normal/abnormal . PO2 (test code = See_Comment H [Automated 1239105807) message] The sy stem which generated this result transmitted reference range : 80 - 100 mmHg. The reference range was not used to interpret this result as normal/abnormal . HCO3 (test code = See_Comment L [Automate d 3606298107) message] The sy stem which generated this result transmitted reference range : 22 - 26 mEq/L. The reference range was not used to interpret this result as normal/abnormal . BE (test code = See_Comment L [Automated 4906918377) message] The sy stem which generated this result transmitted reference range : -3.0 - 3.0 mEq/ L. The reference r adama was not used to interpret this result as normal/abnormal . THB (test code = 10.8 g/dL 13.5-18.0 L 3862161694) %O2HB (test code = 99.1 % 94.0-99.0 H 1159422244) %COHB ART (test code = 0.3 % 0.0-1.5 8426717010) %METHB ART (test code = 0.0 % 0.4-1.5 L 6928709377) VOL%O2 ART (test code = 15.6 % 15.0-23.0 6430183637) NA (test code = 131 mmol/L 135-145 L 9651942827) K+ (test code = 4.5 mmol/L 3.5-5.0 5603138136) AC CA IONZ (test code = 5.00 mg/dL 4.50-5.30 3139844163) GLUCOSE (test code = 174 mg/dL 70-110 H 0110424881) LACTIC ACID (test code 1.30 mmol/L 0.50-2.20 = 9205047606) Lab Interpretation Abnormal (test code = 55617-6) [facility] + Lactic Qplr2912-63-17 05:33:21 Test Item Value Reference Range Interpretation Comments PH (test code = 2) 7.35-7.45 PCO2 (test code = See_Comment L [Automate d 6104672561) message] The sy stem which generated this result transmitted reference range : 35 - 45 mmHg. The reference range was not used to interpret this result as normal/abnormal . PO2 (test code = See_Comment H [Automated 4662329929) message] The sy stem which generated this result transmitted reference range : 80 - 100 mmHg. The reference range was not used to interpret this result as normal/abnormal . HCO3 (test code = See_Comment L [Automate d 8098082409) message] The sy stem which generated this result transmitted reference range : 22 - 26 mEq/L. The reference range was not used to interpret this result as normal/abnormal . BE (test code = See_Comment L [Automated 9937726213) message] The sy stem which generated this result transmitted reference range : -3.0 - 3.0 mEq/ L. The reference r adama was not used to interpret this result as normal/abnormal . THB (test code = 10.8 g/dL 13.5-18.0 L 0116688075) %O2HB (test code = 99.1 % 94.0-99.0 H 8338025766) %COHB ART (test code = 0.3 % 0.0-1.5 7751583579) %METHB ART (test code = 0.0 % 0.4-1.5 L 9099285759) VOL%O2 ART (test code = 15.6 % 15.0-23.0 9054435306) NA (test code = 131 mmol/L 135-145 L 1133789316) K+ (test code = 4.5 mmol/L 3.5-5.0 1070703795) AC CA IONZ (test code = 5.00 mg/dL 4.50-5.30 6427514352) GLUCOSE (test code = 174 mg/dL 70-110 H 1311632071) LACTIC ACID (test code 1.30 mmol/L 0.50-2.20 = 4832704668) Lab Interpretation Abnormal (test code = 99682-3) [facility] + Lactic Eqlw4043-08-61 05:33:21 Test Item Value Reference Range Interpretation Comments PH (test code = 2) 7.35-7.45 PCO2 (test code = See_Comment L [Automate d 5865504706) message] The sy stem which generated this result transmitted reference range : 35 - 45 mmHg. The reference range was not used to interpret this result as normal/abnormal . PO2 (test code = See_Comment H [Automated 2031107877) message] The sy stem which generated this result transmitted reference range : 80 - 100 mmHg. The reference range was not used to interpret this result as normal/abnormal . HCO3 (test code = See_Comment L [Automate d 9283914025) message] The sy stem which generated this result transmitted reference range : 22 - 26 mEq/L. The reference range was not used to interpret this result as normal/abnormal . BE (test code = See_Comment L [Automated 5377320049) message] The sy stem which generated this result transmitted reference range : -3.0 - 3.0 mEq/ L. The reference r adama was not used to interpret this result as normal/abnormal . THB (test code = 10.8 g/dL 13.5-18.0 L 6045589870) %O2HB (test code = 99.1 % 94.0-99.0 H 6168323168) %COHB ART (test code = 0.3 % 0.0-1.5 8647426320) %METHB ART (test code = 0.0 % 0.4-1.5 L 3160047633) VOL%O2 ART (test code = 15.6 % 15.0-23.0 5357940603) NA (test code = 131 mmol/L 135-145 L 1677627316) K+ (test code = 4.5 mmol/L 3.5-5.0 5101810476) AC CA IONZ (test code = 5.00 mg/dL 4.50-5.30 4916422483) GLUCOSE (test code = 174 mg/dL 70-110 H 4895452019) LACTIC ACID (test code 1.30 mmol/L 0.50-2.20 = 2424276490) Lab Interpretation Abnormal (test code = 35553-0) [facility] Packed RBC (in units), 2 Units 2022-04-11 02:31:54 Test Item Value Reference Range Interpretation Comments Cross Match Result Compatible (test code = 4409) ISBT Blood Type Code (test code = 260677) Unit Blood Type (test O Pos code = 4410) Unit Number (test [id number] code = 4411) Blood Expiration Date & Time (test code = 076715) Status Information Issued (test code = 4412) Product Red Blood Cells Identification (test code = 4413) Product Code (test [id number] Performed at [facility] code = 4414) Laboratory Services [facility] Blood [address] [address] Free: [phone] A No. [id number] [facility] Packed RBC (in units), 2 Units 2022-04-11 02:31:54 Test Item Value Reference Range Interpretation Comments Cross Match Result Compatible (test code = 4409) ISBT Blood Type Code (test code = 552802) Unit Blood Type (test O Pos code = 4410) Unit Number (test [id number] code = 4411) Blood Expiration Date & Time (test code = 848128) Status Information Issued (test code = 4412) Product Red Blood Cells Identification (test code = 4413) Product Code (test [id number] Performed at [facility] code = 4414) Laboratory Services - [facility] Blood [address] [place] [address] Free: [phone] A No. [id number] [facility] Packed RBC (in units), 2 Units 2022-04-11 02:31:54 Test Item Value Reference Range Interpretation Comments Cross Match Result Compatible (test code = 4409) ISBT Blood Type Code (test code = 865632) Unit Blood Type (test O Pos code = 4410) Unit Number (test [id number] code = 4411) Blood Expiration Date & Time (test code = 839013) Status Information Issued (test code = 4412) Product Red Blood Cells Identification (test code = 4413) Product Code (test [id number] Performed at [facility] code = 4414) Laboratory Services - [facility] Blood [address] s [address]Aymj Free: [phone] A No. [id number] [facility] DIALYSIS [id number] 17:30:03 Test Item Value Reference Range Interpretation Comments PostBUN (test code = 2253222754) 13 mg/dl 7-23 Lab Interpretation (test code = Normal 63108-6) [facility] DIALYSIS [id number] 17:30:03 Test Item Value Reference Range Interpretation Comments PostBUN (test code = 4499033163) 13 mg/dl 7-23 Lab Interpretation (test code = Normal 69785-9) [facility] DIALYSIS [id number] 17:30:03 Test Item Value Reference Range Interpretation Comments PostBUN (test code = 8314502278) 13 mg/dl 7-23 Lab Interpretation (test code = Normal 83481-0) [facility] GLUCOSE (AUTOMATED)2022-04-10 14:35:17 Test Item Value Reference Range Interpretation Comments POCT GLU (test code = 2060019476) 118 mg/dL 70-110 H Lab Interpretation (test code = Abnormal 33175-1) [facility] GLUCOSE (AUTOMATED)2022-04-10 14:35:17 Test Item Value Reference Range Interpretation Comments POCT GLU (test code = 5616659835) 118 mg/dL 70-110 H Lab Interpretation (test code = Abnormal 29884-5) [facility] 14:35:17 Test Item Value Reference Range Interpretation Comments POCT GLU (test code = 7537117228) 118 mg/dL 70-110 H Lab Interpretation (test code = Abnormal 04250-2) [facility] METABOLIC PANEL (NA, K, CL, CO2, GLUCOSE, BUN, CREATININE, CA)2022-04-10 10:16:01 Test Item Value Reference Range Interpretation Comments NA (test code = 136 mmol/L 135-145 8166863378) K (test code = 4.8 mmol/L 3.5-5.0 Slight 4555482458) hemolysis CL (test code = 102 mmol/L 98-108 2601398610) CO2 TOTAL (test code 27 mmol/L 23-31 = 6407334773) AGAP (test code = 2-16 4220135656) BUN (test code = 36 mg/dL 7-23 H Slight 0887570418) hemolysis GLUCOSE (test code = 143 mg/dL 70-110 H 9296746985) CREATININE (test code 6.92 mg/dL 0.60-1.25 H = 0959333142) CALCIUM (test code = 8.7 mg/dL 8.6-10.6 7357364464) eGFR (test code = mL/min/1.73m2 5040383177) MARINO (test code = MARINO) Association of Glomerular Filtration Rate (GFR) and Staging of Kidney Disease* + -----+ --------+ +| GFR (mL/min/1.73 m2) ?| With Kidney Damage ?| ?Without Kidney Damage+ +------- +---- --+| ?>90 ?| ?Stage one ?| ? Normal ?+ ------+ ---------+--------- +| ?60-89 ?| ?Stage two ?| ? Decreased GFR ? + -----+ --------+ +| ?30-59 ?| ?Stage three ?| ? Stage three ? + -----+ --------+ +| ?15-29 ?| ?Stage four ? | ? Stage four ?+ ------+ ---------+--------- +| ?<15 (or dialysis) ? ?| ?Stage five ? | ? Stage five ?+ ------+ ---------+--------- + *Each stage assumes the associated GFR level has been in effect for at least three months. ?Stages 1 to 5, with or without kidney disease, indicate chronic kidney disease. Notes: Determination of stages one and two (with eGFR >59mL/min/1.73 m2) requires estimation of kidney damage for at least three months as defined by structural or functional abnormalities of the kidney, manifested by either:Pathological abnormalities or Markers of kidney damage (including abnormalities in the composition of the blood or urine or abnormalities in imaging tests). Lab Interpretation Abnormal (test code = 03921-8) [facility] 10:16:01 Test Item Value Reference Range Interpretation Comments MAGNESIUM (test code = 4789277657) 2.6 mg/dL 1.7-2.4 H Lab Interpretation (test code = Abnormal 27262-0) [facility]22-[facility] 10:16:01 Test Item Value Reference Range Interpretation Comments PHOSPHORUS (test code = 9877573811) 4.3 mg/dL 2.5-5.0 Lab Interpretation (test code = Normal 02498-9) [facility] (NA, K, CL, CO2, GLUCOSE, BUN, CREATININE, CA)2022-04-10 10:16:01 Test Item Value Reference Range Interpretation Comments NA (test code = 136 mmol/L 135-145 7462441456) K (test code = 4.8 mmol/L 3.5-5.0 Slight 1752679722) hemolysis CL (test code = 102 mmol/L 98-108 1014482952) CO2 TOTAL (test code 27 mmol/L 23-31 = 8277297066) AGAP (test code = 2-16 1214572664) BUN (test code = 36 mg/dL 7-23 H Slight 0225812610) hemolysis GLUCOSE (test code = 143 mg/dL 70-110 H 4055125975) CREATININE (test code 6.92 mg/dL 0.60-1.25 H = 1365628234) CALCIUM (test code = 8.7 mg/dL 8.6-10.6 1012861442) eGFR (test code = mL/min/1.73m2 5386953203) MARINO (test code = MARINO) Association of Glomerular Filtration Rate (GFR) and Staging of Kidney Disease* + -----+ --------+ +| GFR (mL/min/1.73 m2) ?| With Kidney Damage ?| ?Without Kidney Damage+ +------- +---- --+| ?>90 ?| ?Stage one ?| ? Normal ?+ ------+ ---------+--------- +| ?60-89 ?| ?Stage two ?| ? Decreased GFR ? + -----+ --------+ +| ?30-59 ?| ?Stage three ?| ? Stage three ? + -----+ --------+ +| ?15-29 ?| ?Stage four ? | ? Stage four ?+ ------+ ---------+--------- +| ?<15 (or dialysis) ? ?| ?Stage five ? | ? Stage five ?+ ------+ ---------+--------- + *Each stage assumes the associated GFR level has been in effect for at least three months. ?Stages 1 to 5, with or without kidney disease, indicate chronic kidney disease. Notes: Determination of stages one and two (with eGFR >59mL/min/1.73 m2) requires estimation of kidney damage for at least three months as defined by structural or functional abnormalities of the kidney, manifested by either:Pathological abnormalities or Markers of kidney damage (including abnormalities in the composition of the blood or urine or abnormalities in imaging tests). Lab Interpretation Abnormal (test code = 10376-4) [facility] 10:16:01 Test Item Value Reference Range Interpretation Comments MAGNESIUM (test code = 2718902066) 2.6 mg/dL 1.7-2.4 H Lab Interpretation (test code = Abnormal 45394-8) [facility]2022-[facility]-26 10:16:01 Test Item Value Reference Range Interpretation Comments PHOSPHORUS (test code = 4772503461) 4.3 mg/dL 2.5-5.0 Lab Interpretation (test code = Normal 36163-9) [facility] (NA, K, CL, CO2, GLUCOSE, BUN, CREATININE, CA)2022-04-10 10:16:01 Test Item Value Reference Range Interpretation Comments NA (test code = 136 mmol/L 135-145 0246527415) K (test code = 4.8 mmol/L 3.5-5.0 Slight 2225708627) hemolysis CL (test code = 102 mmol/L 98-108 7522294256) CO2 TOTAL (test code 27 mmol/L 23-31 = 5745045535) AGAP (test code = 2-16 3477752418) BUN (test code = 36 mg/dL 7-23 H Slight 6635472630) hemolysis GLUCOSE (test code = 143 mg/dL 70-110 H 0912184488) CREATININE (test code 6.92 mg/dL 0.60-1.25 H = 9236912698) CALCIUM (test code = 8.7 mg/dL 8.6-10.6 4389267479) eGFR (test code = mL/min/1.73m2 7777431258) MARINO (test code = MARINO) Association of Glomerular Filtration Rate (GFR) and Staging of Kidney Disease* + -----+ --------+ +| GFR (mL/min/1.73 m2) ?| With Kidney Damage ?| ?Without Kidney Damage+ +------- +---- --+| ?>90 ?| ?Stage one ?| ? Normal ?+ ------+ ---------+--------- +| ?60-89 ?| ?Stage two ?| ? Decreased GFR ? + -----+ --------+ +| ?30-59 ?| ?Stage three ?| ? Stage three ? + -----+ --------+ +| ?15-29 ?| ?Stage four ? | ? Stage four ?+ ------+ ---------+--------- +| ?<15 (or dialysis) ? ?| ?Stage five ? | ? Stage five ?+ ------+ ---------+--------- + *Each stage assumes the associated GFR level has been in effect for at least three months. ?Stages 1 to 5, with or without kidney disease, indicate chronic kidney disease. Notes: Determination of stages one and two (with eGFR >59mL/min/1.73 m2) requires estimation of kidney damage for at least three months as defined by structural or functional abnormalities of the kidney, manifested by either:Pathological abnormalities or Markers of kidney damage (including abnormalities in the composition of the blood or urine or abnormalities in imaging tests). Lab Interpretation Abnormal (test code = 41198-5) [facility] 10:16:01 Test Item Value Reference Range Interpretation Comments MAGNESIUM (test code = 8517678599) 2.6 mg/dL 1.7-2.4 H Lab Interpretation (test code = Abnormal 39034-5) [facility]22-[facility]-26 10:16:01 Test Item Value Reference Range Interpretation Comments PHOSPHORUS (test code = 6423289941) 4.3 mg/dL 2.5-5.0 Lab Interpretation (test code = Normal 81855-0) [facility] WITH [id number] 10:04:20 Test Item Value Reference Range Interpretation Comments WBC (test code = See_Comment [Automated 6690-2) message] The sy stem which generated this result transmitted reference range : 4.20 - 10.70 10*3/?L. The reference range was not used to interpret this result as normal/abnormal . RBC (test code = See_Comment L [Automated 239-8) message] The sy stem which generated this result transmitted reference range : 4.26 - 5.52 10*6/?L. The reference range was not used to interpret this result as normal/abnormal . HGB (test code = 10.5 g/dL 12.2-16.4 L 718-7) HCT (test code = 34.3 % 38.4-49.3 L 4544-3) MCV (test code = 86.8 fL 81.7-95.6 787-2) MCH (test code = 26.6 pg 26.1-32.7 785-6) MCHC (test code = 30.6 g/dL 31.2-35.0 L 786-4) RDW-SD (test code = 47.7 fL 38.5-51.6 52088-8) RDW-CV (test code = 15.1 % 12.1-15.4 788-0) PLT (test code = See_Comment [Automated 777-3) message] The sy stem which generated this result transmitted reference range : 150 - 328 10*3/ ?L. The reference r adama was not used to interpret this result as normal/abnormal . MPV (test code = 12.0 fL 9.8-13.0 41619-8) NRBC/100 WBC (test See_Comment [Automat ed code = 2612061946) message] The system which generated this result transmitted reference range : 0.0 - 10.0 /100 WBCs. The refer ence range was not u sed to interpret th is result as normal/abnormal . NRBC x10^3 (test code See_Comment [Auto mated = 7198740379) message] The s ystem which generated this result transmitted reference range : 10*3/?L. The reference range was not used to interpret this result as normal/abnormal . GRAN MAT (NEUT) % 70.6 % (test code = 770-8) IMM GRAN % (test code 0.50 % = 7261255682) LYMPH % (test code = 13.5 % 736-9) MONO % (test code = 11.3 % 5905-5) EOS % (test code = 3.1 % 713-8) BASO % (test code = 1.0 % 706-2) GRAN MAT x10^3(ANC) 5.71 10*3/uL 1.99-6.95 (test code = 8656267293) IMM GRAN x10^3 (test 0.04 10*3/uL 0.00-0.06 code = 9372482289) LYMPH x10^3 (test code 1.09 10*3/uL 1.09-3.23 = 731-0) MONO x10^3 (test code 0.91 10*3/uL 0.36-1.02 = 742-7) EOS x10^3 (test code = 0.25 10*3/uL 0.06-0.53 711-2) BASO x10^3 (test code 0.08 10*3/uL 0.01-0.09 = 704-7) Lab Interpretation Abnormal (test code = 16227-3) [facility] WITH [id number] 10:04:20 Test Item Value Reference Range Interpretation Comments WBC (test code = See_Comment [Automated 6690-2) message] The sy stem which generated this result transmitted reference range : 4.20 - 10.70 10*3/?L. The reference range was not used to interpret this result as normal/abnormal . RBC (test code = See_Comment L [Automated 789-8) message] The sy stem which generated this result transmitted reference range : 4.26 - 5.52 10*6/?L. The reference range was not used to interpret this result as normal/abnormal . HGB (test code = 10.5 g/dL 12.2-16.4 L 718-7) HCT (test code = 34.3 % 38.4-49.3 L 4544-3) MCV (test code = 86.8 fL 81.7-95.6 787-2) MCH (test code = 26.6 pg 26.1-32.7 785-6) MCHC (test code = 30.6 g/dL 31.2-35.0 L 786-4) RDW-SD (test code = 47.7 fL 38.5-51.6 72872-5) RDW-CV (test code = 15.1 % 12.1-15.4 788-0) PLT (test code = See_Comment [Automated 777-3) message] The sy stem which generated this result transmitted reference range : 150 - 328 10*3/ ?L. The reference r adama was not used to interpret this result as normal/abnormal . MPV (test code = 12.0 fL 9.8-13.0 79133-8) NRBC/100 WBC (test See_Comment [Automat ed code = 4359461279) message] The system which generated this result transmitted reference range : 0.0 - 10.0 /100 WBCs. The refer ence range was not u sed to interpret th is result as normal/abnormal . NRBC x10^3 (test code See_Comment [Auto mated = 5280926938) message] The s ystem which generated this result transmitted reference range : 10*3/?L. The reference range was not used to interpret this result as normal/abnormal . GRAN MAT (NEUT) % 70.6 % (test code = 770-8) IMM GRAN % (test code 0.50 % = 2969753202) LYMPH % (test code = 13.5 % 736-9) MONO % (test code = 11.3 % 5905-5) EOS % (test code = 3.1 % 713-8) BASO % (test code = 1.0 % 706-2) GRAN MAT x10^3(ANC) 5.71 10*3/uL 1.99-6.95 (test code = 3004527022) IMM GRAN x10^3 (test 0.04 10*3/uL 0.00-0.06 code = 1970040435) LYMPH x10^3 (test code 1.09 10*3/uL 1.09-3.23 = 731-0) MONO x10^3 (test code 0.91 10*3/uL 0.36-1.02 = 742-7) EOS x10^3 (test code = 0.25 10*3/uL 0.06-0.53 711-2) BASO x10^3 (test code 0.08 10*3/uL 0.01-0.09 = 704-7) Lab Interpretation Abnormal (test code = 87542-5) [facility] WITH [id number] 10:04:20 Test Item Value Reference Range Interpretation Comments WBC (test code = See_Comment [Automated 6690-2) message] The sy stem which generated this result transmitted reference range : 4.20 - 10.70 10*3/?L. The reference range was not used to interpret this result as normal/abnormal . RBC (test code = See_Comment L [Automated 779-8) message] The sy stem which generated this result transmitted reference range : 4.26 - 5.52 10*6/?L. The reference range was not used to interpret this result as normal/abnormal . HGB (test code = 10.5 g/dL 12.2-16.4 L 718-7) HCT (test code = 34.3 % 38.4-49.3 L 4544-3) MCV (test code = 86.8 fL 81.7-95.6 787-2) MCH (test code = 26.6 pg 26.1-32.7 785-6) MCHC (test code = 30.6 g/dL 31.2-35.0 L 786-4) RDW-SD (test code = 47.7 fL 38.5-51.6 11604-6) RDW-CV (test code = 15.1 % 12.1-15.4 788-0) PLT (test code = See_Comment [Automated 777-3) message] The sy stem which generated this result transmitted reference range : 150 - 328 10*3/ ?L. The reference r adama was not used to interpret this result as normal/abnormal . MPV (test code = 12.0 fL 9.8-13.0 55830-5) NRBC/100 WBC (test See_Comment [Automat ed code = 5129953094) message] The system which generated this result transmitted reference range : 0.0 - 10.0 /100 WBCs. The refer ence range was not u sed to interpret th is result as normal/abnormal . NRBC x10^3 (test code See_Comment [Auto mated = 6848411743) message] The s ystem which generated this result transmitted reference range : 10*3/?L. The reference range was not used to interpret this result as normal/abnormal . GRAN MAT (NEUT) % 70.6 % (test code = 770-8) IMM GRAN % (test code 0.50 % = 3560422053) LYMPH % (test code = 13.5 % 736-9) MONO % (test code = 11.3 % 5905-5) EOS % (test code = 3.1 % 713-8) BASO % (test code = 1.0 % 706-2) GRAN MAT x10^3(ANC) 5.71 10*3/uL 1.99-6.95 (test code = 1584782667) IMM GRAN x10^3 (test 0.04 10*3/uL 0.00-0.06 code = 6431347787) LYMPH x10^3 (test code 1.09 10*3/uL 1.09-3.23 = 731-0) MONO x10^3 (test code 0.91 10*3/uL 0.36-1.02 = 742-7) EOS x10^3 (test code = 0.25 10*3/uL 0.06-0.53 711-2) BASO x10^3 (test code 0.08 10*3/uL 0.01-0.09 = 704-7) Lab Interpretation Abnormal (test code = 34249-8) [facility] GLUCOSE (AUTOMATED)2022-04-10 01:36:00 Test Item Value Reference Range Interpretation Comments POCT GLU (test code = 9401336129) 136 mg/dL 70-110 H Lab Interpretation (test code = Abnormal 36136-4) [facility] GLUCOSE (AUTOMATED)2022-04-10 01:36:00 Test Item Value Reference Range Interpretation Comments POCT GLU (test code = 4105228342) 136 mg/dL 70-110 H Lab Interpretation (test code = Abnormal 96575-3) [facility] GLUCOSE (AUTOMATED)2022-04-10 01:36:00 Test Item Value Reference Range Interpretation Comments POCT GLU (test code = 1971529056) 136 mg/dL 70-110 H Lab Interpretation (test code = Abnormal 40375-4) [facility] GLUCOSE (AUTOMATED)2022-04-09 21:26:15 Test Item Value Reference Range Interpretation Comments POCT GLU (test code = 169 mg/dL 70-110 H Notifi ed Provider [id number]) Lab Interpretation (test Abnormal code = 74633-7) [facility] GLUCOSE (AUTOMATED)2022-04-09 21:26:15 Test Item Value Reference Range Interpretation Comments POCT GLU (test code = 169 mg/dL 70-110 H Notifi ed Provider [id number]) Lab Interpretation (test Abnormal code = 85471-7) [facility] GLUCOSE (AUTOMATED)2022-04-09 21:26:15 Test Item Value Reference Range Interpretation Comments POCT GLU (test code = 169 mg/dL 70-110 H Notifi ed Provider [id number]) Lab Interpretation (test Abnormal code = 09763-2) [facility] GLUCOSE (AUTOMATED)2022-04-09 21:26:15 Test Item Value Reference Range Interpretation Comments POCT GLU (test code = 169 mg/dL 70-110 H Notifi ed Provider [id number]) Lab Interpretation (test Abnormal code = 25633-9) [facility] GLUCOSE (AUTOMATED)2022-04-09 16:47:32 Test Item Value Reference Range Interpretation Comments POCT GLU (test code = 93 mg/dL 70-110 Notifi ed Provider [id number]) Lab Interpretation (test Normal code = 35683-8) [facility] GLUCOSE (AUTOMATED)2022-04-09 16:47:32 Test Item Value Reference Range Interpretation Comments POCT GLU (test code = 93 mg/dL 70-110 Notifi ed Provider [id number]) Lab Interpretation (test Normal code = 90173-5) [facility] GLUCOSE (AUTOMATED)2022-04-09 16:47:32 Test Item Value Reference Range Interpretation Comments POCT GLU (test code = 93 mg/dL 70-110 Notifi ed Provider [id number]) Lab Interpretation (test Normal code = 59973-3) [facility] GLUCOSE (AUTOMATED)2022-04-09 16:47:32 Test Item Value Reference Range Interpretation Comments POCT GLU (test code = 93 mg/dL 70-110 Notifi ed Provider [id number]) Lab Interpretation (test Normal code = 11811-6) [facility] and Screen - ONCE [id number] 16:43:57 Test Item Value Reference Range Interpretation Comments ABO & RH (test code O POSITIVE Performe d at [facility] = 20) Laboratory [facility] Blood [address] [id number] Free: [phone] A No. [id number] IAT (test code = Negative Performed a t [facility] 1185) Laboratory [facility] Blood [address] s [address]Mdia Free: [phone] A No. [id number] [facility] and Screen - ONCE Jayhape0920-16-04 16:43:57 Test Item Value Reference Range Interpretation Comments ABO & RH (test code O POSITIVE Performe d at [facility] = 20) Laboratory [facility] [place] [address] s [address]Vrsn Free: [phone] A No. [id number] IAT (test code = Negative Performed a t [facility] 1185) Laboratory [facility] Blood [facility] [address] [place] [address] s [address]Xzmq Free: [phone] A No. [id number] [facility] and Screen - ONCE [id number] 16:43:57 Test Item Value Reference Range Interpretation Comments ABO & RH (test code O POSITIVE Performe d at [facility] = 20) Laboratory [facility] [place] [address] s [address]Qcyu Free: [phone] A No. [id number] IAT (test code = Negative Performed a t [facility] 1185) Laboratory [facility] Blood [facility] [address] [place] [address]Qlyf Free: [phone] A No. [id number] [facility] [id number] 16:43:57 Test Item Value Reference Range Interpretation Comments ABO & RH (test code O POSITIVE Performe d at [facility] = 20) Laboratory [facility] Blood [facility] [address] [place] [address] s [address]Qrmw Free: [phone] A No. [id number] IAT (test code = Negative Performed a t [facility] 1185) Laboratory [facility] Blood [facility] [address] [place] [address] s [address]Ldpv Free: [phone] A No. [id number] [facility] GLUCOSE (AUTOMATED)2022-04-09 13:06:59 Test Item Value Reference Range Interpretation Comments POCT GLU (test code = 105 mg/dL 70-110 Notifi ed Provider [id number]) Lab Interpretation (test Normal code = 39406-6) [facility] GLUCOSE (AUTOMATED)2022-04-09 13:06:59 Test Item Value Reference Range Interpretation Comments POCT GLU (test code = 105 mg/dL 70-110 Notifi ed Provider [id number]) Lab Interpretation (test Normal code = 57839-3) [facility] GLUCOSE (AUTOMATED)2022-04-09 13:06:59 Test Item Value Reference Range Interpretation Comments POCT GLU (test code = 105 mg/dL 70-110 Notifi ed Provider [id number]) Lab Interpretation (test Normal code = 96199-8) [facility] GLUCOSE (AUTOMATED)2022-04-09 13:06:59 Test Item Value Reference Range Interpretation Comments POCT GLU (test code = 105 mg/dL 70-110 Notifi ed Provider [id number]) Lab Interpretation (test Normal code = 64663-9) [facility] METABOLIC PANEL (NA, K, CL, CO2, GLUCOSE, BUN, CREATININE, CA)2022-04-09 11:11:37 Test Item Value Reference Range Interpretation Comments NA (test code = 138 mmol/L 135-145 4418431461) K (test code = 4.6 mmol/L 3.5-5 5672182427) CL (test code = 103 mmol/L 98-108 6307744973) CO2 TOTAL (test code = 25 mmol/L 23-31 5621397853) AGAP (test code = 2-16 1781847370) BUN (test code = 22 mg/dL 7-23 5266681647) GLUCOSE (test code = 99 mg/dL 70-110 9279682244) CREATININE (test code = 5.04 mg/dL 0.6-1.25 H 8237901557) CALCIUM (test code = 9.5 mg/dL 8.6-10.6 0184578324) eGFR (test code = mL/min/1.73m2 1676466951) MARINO (test code = MARINO) Association of Glomerular Filtration Rate (GFR) and Staging of Kidney Disease* + --+ --+ ------+| GFR (mL/min/1.73 m2) ?| With Kidney Damage ?| ?Without Kidney Damage+ --------+ --------+ +| ?>90 ?| ?Stage one ?| ? Normal ?+ ---+ ---+ -------+| ?60-89 ?| ?Stage two ?| ? Decreased GFR ? + --+ --+ ------+| ?30-59 ?| ?Stage three ?| ? Stage three ? + --+ --+ ------+| ?15-29 ?| ?Stage four ? | ? Stage four ?+ ---+ ---+ -------+| ?<15 (or dialysis) ? ?| ?Stage five ? | ? Stage five ?+ ---+ ---+ -------+ *Each stage assumes the associated GFR level has been in effect for at least three months. ?Stages 1 to 5, with or without kidney disease, indicate chronic kidney disease. Notes: Determination of stages one and two (with eGFR >59mL/min/1.73 m2) requires estimation of kidney damage for at least three months as defined by structural or functional abnormalities of the kidney, manifested by either:Pathological abnormalities or Markers of kidney damage (including abnormalities in the composition of the blood or urine or abnormalities in imaging tests). Lab Interpretation Abnormal (test code = 58882-2) [facility] METABOLIC PANEL (NA, K, CL, CO2, GLUCOSE, BUN, CREATININE, CA)2022-04-09 11:11:37 Test Item Value Reference Range Interpretation Comments NA (test code = 138 mmol/L 135-145 0126035001) K (test code = 4.6 mmol/L 3.5-5.0 7045119586) CL (test code = 103 mmol/L 98-108 8099337027) CO2 TOTAL (test code = 25 mmol/L 23-31 0086297460) AGAP (test code = 2-16 7228504883) BUN (test code = 22 mg/dL 7-23 8994139979) GLUCOSE (test code = 99 mg/dL 70-110 9881908972) CREATININE (test code = 5.04 mg/dL 0.60-1.25 H 8247118994) CALCIUM (test code = 9.5 mg/dL 8.6-10.6 6135340029) eGFR (test code = mL/min/1.73m2 9514494434) MARINO (test code = MARINO) Association of Glomerular Filtration Rate (GFR) and Staging of Kidney Disease* + --+ --+ ------+| GFR (mL/min/1.73 m2) ?| With Kidney Damage ?| ?Without Kidney Damage+ --------+ --------+ +| ?>90 ?| ?Stage one ?| ? Normal ?+ ---+ ---+ -------+| ?60-89 ?| ?Stage two ?| ? Decreased GFR ? + --+ --+ ------+| ?30-59 ?| ?Stage three ?| ? Stage three ? + --+ --+ ------+| ?15-29 ?| ?Stage four ? | ? Stage four ?+ ---+ ---+ -------+| ?<15 (or dialysis) ? ?| ?Stage five ? | ? Stage five ?+ ---+ ---+ -------+ *Each stage assumes the associated GFR level has been in effect for at least three months. ?Stages 1 to 5, with or without kidney disease, indicate chronic kidney disease. Notes: Determination of stages one and two (with eGFR >59mL/min/1.73 m2) requires estimation of kidney damage for at least three months as defined by structural or functional abnormalities of the kidney, manifested by either:Pathological abnormalities or Markers of kidney damage (including abnormalities in the composition of the blood or urine or abnormalities in imaging tests). Lab Interpretation Abnormal (test code = 73339-0) [facility] METABOLIC PANEL (NA, K, CL, CO2, GLUCOSE, BUN, CREATININE, CA)2022-04-09 11:11:37 Test Item Value Reference Range Interpretation Comments NA (test code = 138 mmol/L 135-145 5166294621) K (test code = 4.6 mmol/L 3.5-5.0 1198470712) CL (test code = 103 mmol/L 98-108 9149928724) CO2 TOTAL (test code = 25 mmol/L 23-31 2253467864) AGAP (test code = 2-16 7786607613) BUN (test code = 22 mg/dL 7-23 6302034119) GLUCOSE (test code = 99 mg/dL 70-110 7309036085) CREATININE (test code = 5.04 mg/dL 0.60-1.25 H 4855058539) CALCIUM (test code = 9.5 mg/dL 8.6-10.6 4987640847) eGFR (test code = mL/min/1.73m2 4261449162) MARINO (test code = MARINO) Association of Glomerular Filtration Rate (GFR) and Staging of Kidney Disease* + --+ --+ ------+| GFR (mL/min/1.73 m2) ?| With Kidney Damage ?| ?Without Kidney Damage+ --------+ --------+ +| ?>90 ?| ?Stage one ?| ? Normal ?+ ---+ ---+ -------+| ?60-89 ?| ?Stage two ?| ? Decreased GFR ? + --+ --+ ------+| ?30-59 ?| ?Stage three ?| ? Stage three ? + --+ --+ ------+| ?15-29 ?| ?Stage four ? | ? Stage four ?+ ---+ ---+ -------+| ?<15 (or dialysis) ? ?| ?Stage five ? | ? Stage five ?+ ---+ ---+ -------+ *Each stage assumes the associated GFR level has been in effect for at least three months. ?Stages 1 to 5, with or without kidney disease, indicate chronic kidney disease. Notes: Determination of stages one and two (with eGFR >59mL/min/1.73 m2) requires estimation of kidney damage for at least three months as defined by structural or functional abnormalities of the kidney, manifested by either:Pathological abnormalities or Markers of kidney damage (including abnormalities in the composition of the blood or urine or abnormalities in imaging tests). Lab Interpretation Abnormal (test code = 77291-5) [facility] METABOLIC PANEL (NA, K, CL, CO2, GLUCOSE, BUN, CREATININE, CA)2022-04-09 11:11:37 Test Item Value Reference Range Interpretation Comments NA (test code = 138 mmol/L 135-145 8402787333) K (test code = 4.6 mmol/L 3.5-5.0 9489141213) CL (test code = 103 mmol/L 98-108 5523839391) CO2 TOTAL (test code = 25 mmol/L 23-31 9592692108) AGAP (test code = 2-16 2549788351) BUN (test code = 22 mg/dL 7-23 6085518092) GLUCOSE (test code = 99 mg/dL 70-110 4547287598) CREATININE (test code = 5.04 mg/dL 0.60-1.25 H 8662765208) CALCIUM (test code = 9.5 mg/dL 8.6-10.6 0473226797) eGFR (test code = mL/min/1.73m2 6920247864) MARINO (test code = MARINO) Association of Glomerular Filtration Rate (GFR) and Staging of Kidney Disease* + --+ --+ ------+| GFR (mL/min/1.73 m2) ?| With Kidney Damage ?| ?Without Kidney Damage+ --------+ --------+ +| ?>90 ?| ?Stage one ?| ? Normal ?+ ---+ ---+ -------+| ?60-89 ?| ?Stage two ?| ? Decreased GFR ? + --+ --+ ------+| ?30-59 ?| ?Stage three ?| ? Stage three ? + --+ --+ ------+| ?15-29 ?| ?Stage four ? | ? Stage four ?+ ---+ ---+ -------+| ?<15 (or dialysis) ? ?| ?Stage five ? | ? Stage five ?+ ---+ ---+ -------+ *Each stage assumes the associated GFR level has been in effect for at least three months. ?Stages 1 to 5, with or without kidney disease, indicate chronic kidney disease. Notes: Determination of stages one and two (with eGFR >59mL/min/1.73 m2) requires estimation of kidney damage for at least three months as defined by structural or functional abnormalities of the kidney, manifested by either:Pathological abnormalities or Markers of kidney damage (including abnormalities in the composition of the blood or urine or abnormalities in imaging tests). Lab Interpretation Abnormal (test code = 59526-8) [facility] WITH [id number] 10:18:31 Test Item Value Reference Range Interpretation Comments WBC (test code = See_Comment [Automated 1694-2) message] The sy stem which generated this result transmitted reference range : 4.20 - 10.70 10*3/?L. The reference range was not used to interpret this result as normal/abnormal . RBC (test code = See_Comment [Automated 047-8) message] The sy stem which generated this result transmitted reference range : 4.26 - 5.52 10*6/?L. The reference range was not used to interpret this result as normal/abnormal . HGB (test code = 11.8 g/dL 12.2-16.4 L 718-7) HCT (test code = 39.3 % 38.4-49.3 4544-3) MCV (test code = 87.3 fL 81.7-95.6 787-2) MCH (test code = 26.2 pg 26.1-32.7 785-6) MCHC (test code = 30.0 g/dL 31.2-35 L 786-4) RDW-SD (test code = 47.3 fL 38.5-51.6 62968-3) RDW-CV (test code = 14.6 % 12.1-15.4 788-0) PLT (test code = See_Comment H [Automated 777-3) message] The sy stem which generated this result transmitted reference range : 150 - 328 10*3/ ?L. The reference r adama was not used to interpret this result as normal/abnormal . MPV (test code = 11.1 fL 9.8-13 69449-4) NRBC/100 WBC (test See_Comment [Automat ed code = 0200018171) message] The system which generated this result transmitted reference range : 0.0 - 10.0 /100 WBCs. The refer ence range was not u sed to interpret th is result as normal/abnormal . NRBC x10^3 (test code See_Comment [Auto mated = 7459350034) message] The s ystem which generated this result transmitted reference range : 10*3/?L. The reference range was not used to interpret this result as normal/abnormal . GRAN MAT (NEUT) % 72.8 % (test code = 770-8) IMM GRAN % (test code 0.90 % = 2736486548) LYMPH % (test code = 12.4 % 736-9) MONO % (test code = 10.0 % 5905-5) EOS % (test code = 3.2 % 713-8) BASO % (test code = 0.7 % 706-2) GRAN MAT x10^3(ANC) 5.93 10*3/uL 1.99-6.95 (test code = 7887264568) IMM GRAN x10^3 (test 0.07 10*3/uL 0-0.06 H code = 9157216063) LYMPH x10^3 (test code 1.01 10*3/uL 1.09-3.23 L = 731-0) MONO x10^3 (test code 0.81 10*3/uL 0.36-1.02 = 742-7) EOS x10^3 (test code = 0.26 10*3/uL 0.06-0.53 711-2) BASO x10^3 (test code 0.06 10*3/uL 0.01-0.09 = 704-7) Lab Interpretation Abnormal (test code = 57580-6) [facility] WITH [id number] 10:18:31 Test Item Value Reference Range Interpretation Comments WBC (test code = See_Comment [Automated 6690-2) message] The sy stem which generated this result transmitted reference range : 4.20 - 10.70 10*3/?L. The reference range was not used to interpret this result as normal/abnormal . RBC (test code = See_Comment [Automated 789-8) message] The sy stem which generated this result transmitted reference range : 4.26 - 5.52 10*6/?L. The reference range was not used to interpret this result as normal/abnormal . HGB (test code = 11.8 g/dL 12.2-16.4 L 718-7) HCT (test code = 39.3 % 38.4-49.3 4544-3) MCV (test code = 87.3 fL 81.7-95.6 787-2) MCH (test code = 26.2 pg 26.1-32.7 785-6) MCHC (test code = 30.0 g/dL 31.2-35.0 L 786-4) RDW-SD (test code = 47.3 fL 38.5-51.6 48469-9) RDW-CV (test code = 14.6 % 12.1-15.4 788-0) PLT (test code = See_Comment H [Automated 777-3) message] The sy stem which generated this result transmitted reference range : 150 - 328 10*3/ ?L. The reference r adama was not used to interpret this result as normal/abnormal . MPV (test code = 11.1 fL 9.8-13.0 29734-2) NRBC/100 WBC (test See_Comment [Automat ed code = 3640901964) message] The system which generated this result transmitted reference range : 0.0 - 10.0 /100 WBCs. The refer ence range was not u sed to interpret th is result as normal/abnormal . NRBC x10^3 (test code See_Comment [Auto mated = 3271097052) message] The s ystem which generated this result transmitted reference range : 10*3/?L. The reference range was not used to interpret this result as normal/abnormal . GRAN MAT (NEUT) % 72.8 % (test code = 770-8) IMM GRAN % (test code 0.90 % = 5985975884) LYMPH % (test code = 12.4 % 736-9) MONO % (test code = 10.0 % 5905-5) EOS % (test code = 3.2 % 713-8) BASO % (test code = 0.7 % 706-2) GRAN MAT x10^3(ANC) 5.93 10*3/uL 1.99-6.95 (test code = 2158665674) IMM GRAN x10^3 (test 0.07 10*3/uL 0.00-0.06 H code = 3072048647) LYMPH x10^3 (test code 1.01 10*3/uL 1.09-3.23 L = 731-0) MONO x10^3 (test code 0.81 10*3/uL 0.36-1.02 = 742-7) EOS x10^3 (test code = 0.26 10*3/uL 0.06-0.53 711-2) BASO x10^3 (test code 0.06 10*3/uL 0.01-0.09 = 704-7) Lab Interpretation Abnormal (test code = 17838-4) [facility] WITH [id number] 10:18:31 Test Item Value Reference Range Interpretation Comments WBC (test code = See_Comment [Automated 8892-2) message] The sy stem which generated this result transmitted reference range : 4.20 - 10.70 10*3/?L. The reference range was not used to interpret this result as normal/abnormal . RBC (test code = See_Comment [Automated 986-8) message] The sy stem which generated this result transmitted reference range : 4.26 - 5.52 10*6/?L. The reference range was not used to interpret this result as normal/abnormal . HGB (test code = 11.8 g/dL 12.2-16.4 L 718-7) HCT (test code = 39.3 % 38.4-49.3 4544-3) MCV (test code = 87.3 fL 81.7-95.6 787-2) MCH (test code = 26.2 pg 26.1-32.7 785-6) MCHC (test code = 30.0 g/dL 31.2-35.0 L 786-4) RDW-SD (test code = 47.3 fL 38.5-51.6 83607-4) RDW-CV (test code = 14.6 % 12.1-15.4 788-0) PLT (test code = See_Comment H [Automated 777-3) message] The sy stem which generated this result transmitted reference range : 150 - 328 10*3/ ?L. The reference r adama was not used to interpret this result as normal/abnormal . MPV (test code = 11.1 fL 9.8-13.0 07870-8) NRBC/100 WBC (test See_Comment [Automat ed code = 1118174229) message] The system which generated this result transmitted reference range : 0.0 - 10.0 /100 WBCs. The refer ence range was not u sed to interpret th is result as normal/abnormal . NRBC x10^3 (test code See_Comment [Auto mated = 2246078618) message] The s ystem which generated this result transmitted reference range : 10*3/?L. The reference range was not used to interpret this result as normal/abnormal . GRAN MAT (NEUT) % 72.8 % (test code = 770-8) IMM GRAN % (test code 0.90 % = 7557376534) LYMPH % (test code = 12.4 % 736-9) MONO % (test code = 10.0 % 5905-5) EOS % (test code = 3.2 % 713-8) BASO % (test code = 0.7 % 706-2) GRAN MAT x10^3(ANC) 5.93 10*3/uL 1.99-6.95 (test code = 5786350454) IMM GRAN x10^3 (test 0.07 10*3/uL 0.00-0.06 H code = 9663705242) LYMPH x10^3 (test code 1.01 10*3/uL 1.09-3.23 L = 731-0) MONO x10^3 (test code 0.81 10*3/uL 0.36-1.02 = 742-7) EOS x10^3 (test code = 0.26 10*3/uL 0.06-0.53 711-2) BASO x10^3 (test code 0.06 10*3/uL 0.01-0.09 = 704-7) Lab Interpretation Abnormal (test code = 39317-2) [facility] WITH [id number] 10:18:31 Test Item Value Reference Range Interpretation Comments WBC (test code = See_Comment [Automated 6690-2) message] The sy stem which generated this result transmitted reference range : 4.20 - 10.70 10*3/?L. The reference range was not used to interpret this result as normal/abnormal . RBC (test code = See_Comment [Automated 789-8) message] The sy stem which generated this result transmitted reference range : 4.26 - 5.52 10*6/?L. The reference range was not used to interpret this result as normal/abnormal . HGB (test code = 11.8 g/dL 12.2-16.4 L 718-7) HCT (test code = 39.3 % 38.4-49.3 4544-3) MCV (test code = 87.3 fL 81.7-95.6 787-2) MCH (test code = 26.2 pg 26.1-32.7 785-6) MCHC (test code = 30.0 g/dL 31.2-35.0 L 786-4) RDW-SD (test code = 47.3 fL 38.5-51.6 99752-4) RDW-CV (test code = 14.6 % 12.1-15.4 788-0) PLT (test code = See_Comment H [Automated 777-3) message] The sy stem which generated this result transmitted reference range : 150 - 328 10*3/ ?L. The reference r adama was not used to interpret this result as normal/abnormal . MPV (test code = 11.1 fL 9.8-13.0 76006-2) NRBC/100 WBC (test See_Comment [Automat ed code = 5243537879) message] The system which generated this result transmitted reference range : 0.0 - 10.0 /100 WBCs. The refer ence range was not u sed to interpret th is result as normal/abnormal . NRBC x10^3 (test code See_Comment [Auto mated = 2620060948) message] The s ystem which generated this result transmitted reference range : 10*3/?L. The reference range was not used to interpret this result as normal/abnormal . GRAN MAT (NEUT) % 72.8 % (test code = 770-8) IMM GRAN % (test code 0.90 % = 1412982068) LYMPH % (test code = 12.4 % 736-9) MONO % (test code = 10.0 % 5905-5) EOS % (test code = 3.2 % 713-8) BASO % (test code = 0.7 % 706-2) GRAN MAT x10^3(ANC) 5.93 10*3/uL 1.99-6.95 (test code = 5103091761) IMM GRAN x10^3 (test 0.07 10*3/uL 0.00-0.06 H code = 1976209651) LYMPH x10^3 (test code 1.01 10*3/uL 1.09-3.23 L = 731-0) MONO x10^3 (test code 0.81 10*3/uL 0.36-1.02 = 742-7) EOS x10^3 (test code = 0.26 10*3/uL 0.06-0.53 711-2) BASO x10^3 (test code 0.06 10*3/uL 0.01-0.09 = 704-7) Lab Interpretation Abnormal (test code = 42060-4) [facility] GLUCOSE (AUTOMATED)2022-04-09 01:30:53 Test Item Value Reference Range Interpretation Comments POCT GLU (test code = 3589984593) 98 mg/dL 70-110 Lab Interpretation (test code = Normal 61947-4) [facility] GLUCOSE (AUTOMATED)2022-04-09 01:30:53 Test Item Value Reference Range Interpretation Comments POCT GLU (test code = 8889139368) 98 mg/dL 70-110 Lab Interpretation (test code = Normal 02011-5) [facility] GLUCOSE (AUTOMATED)2022-04-09 01:30:53 Test Item Value Reference Range Interpretation Comments POCT GLU (test code = 4273302733) 98 mg/dL 70-110 Lab Interpretation (test code = Normal 71663-3) [facility] GLUCOSE (AUTOMATED)2022-04-09 01:30:53 Test Item Value Reference Range Interpretation Comments POCT GLU (test code = 5457490145) 98 mg/dL 70-110 Lab Interpretation (test code = Normal 60378-9) [facility] GLUCOSE (AUTOMATED)2022-04-08 23:48:54 Test Item Value Reference Range Interpretation Comments POCT GLU (test code = 8437562747) 94 mg/dL 70-110 Lab Interpretation (test code = Normal 53970-2) [facility] GLUCOSE (AUTOMATED)2022-04-08 23:48:54 Test Item Value Reference Range Interpretation Comments POCT GLU (test code = 3892730425) 94 mg/dL 70-110 Lab Interpretation (test code = Normal 80093-5) [facility] GLUCOSE (AUTOMATED)2022-04-08 23:48:54 Test Item Value Reference Range Interpretation Comments POCT GLU (test code = 8046352362) 94 mg/dL 70-110 Lab Interpretation (test code = Normal 14778-9) [facility] GLUCOSE (AUTOMATED)2022-04-08 23:48:54 Test Item Value Reference Range Interpretation Comments POCT GLU (test code = 9119271127) 94 mg/dL 70-110 Lab Interpretation (test code = Normal 89249-6) [facility] GLUCOSE (AUTOMATED)2022-04-08 17:25:23 Test Item Value Reference Range Interpretation Comments POCT GLU (test code = 7930533577) 104 mg/dL 70-110 Lab Interpretation (test code = Normal 15601-5) [facility] GLUCOSE (AUTOMATED)2022-04-08 17:25:23 Test Item Value Reference Range Interpretation Comments POCT GLU (test code = 8954361154) 104 mg/dL 70-110 Lab Interpretation (test code = Normal 39124-2) [facility] GLUCOSE (AUTOMATED)2022-04-08 17:25:23 Test Item Value Reference Range Interpretation Comments POCT GLU (test code = 0633759195) 104 mg/dL 70-110 Lab Interpretation (test code = Normal 93348-8) [facility] 17:25:23 Test Item Value Reference Range Interpretation Comments POCT GLU (test code = 6906600468) 104 mg/dL 70-110 Lab Interpretation (test code = Normal 72146-1) [facility] GLUCOSE (AUTOMATED)2022-04-08 12:51:02 Test Item Value Reference Range Interpretation Comments POCT GLU (test code = 6820623061) 149 mg/dL 70-110 H Lab Interpretation (test code = Abnormal 11308-7) [facility] GLUCOSE (AUTOMATED)2022-04-08 12:51:02 Test Item Value Reference Range Interpretation Comments POCT GLU (test code = 1622227547) 149 mg/dL 70-110 H Lab Interpretation (test code = Abnormal 57803-8) [facility] GLUCOSE (AUTOMATED)2022-04-08 12:51:02 Test Item Value Reference Range Interpretation Comments POCT GLU (test code = 2208783830) 149 mg/dL 70-110 H Lab Interpretation (test code = Abnormal 45482-8) [facility] GLUCOSE (AUTOMATED)2022-04-08 12:51:02 Test Item Value Reference Range Interpretation Comments POCT GLU (test code = 5878562561) 149 mg/dL 70-110 H Lab Interpretation (test code = Abnormal 43149-2) [facility] GLUCOSE (AUTOMATED)2022-04-08 01:30:21 Test Item Value Reference Range Interpretation Comments POCT GLU (test code = 0224541500) 129 mg/dL 70-110 H Lab Interpretation (test code = Abnormal 42927-5) [facility] GLUCOSE (AUTOMATED)2022-04-08 01:30:21 Test Item Value Reference Range Interpretation Comments POCT GLU (test code = 0537039655) 129 mg/dL 70-110 H Lab Interpretation (test code = Abnormal 30697-8) [facility] GLUCOSE (AUTOMATED)2022-04-08 01:30:21 Test Item Value Reference Range Interpretation Comments POCT GLU (test code = 1645336949) 129 mg/dL 70-110 H Lab Interpretation (test code = Abnormal 04329-1) [facility] GLUCOSE (AUTOMATED)2022-04-08 01:30:21 Test Item Value Reference Range Interpretation Comments POCT GLU (test code = 8201096560) 129 mg/dL 70-110 H Lab Interpretation (test code = Abnormal 11089-4) [facility] GLUCOSE (AUTOMATED)2022-04-07 20:42:13 Test Item Value Reference Range Interpretation Comments POCT GLU (test code = 83 mg/dL 70-110 Notifi ed Provider [id number]) Lab Interpretation (test Normal code = 87091-6) [facility] GLUCOSE (AUTOMATED)2022-04-07 20:42:13 Test Item Value Reference Range Interpretation Comments POCT GLU (test code = 83 mg/dL 70-110 Notifi ed Provider [id number]) Lab Interpretation (test Normal code = 38284-6) [facility] GLUCOSE (AUTOMATED)2022-04-07 20:42:13 Test Item Value Reference Range Interpretation Comments POCT GLU (test code = 83 mg/dL 70-110 Notifi ed Provider [id number]) Lab Interpretation (test Normal code = 62479-7) [facility] GLUCOSE (AUTOMATED)2022-04-07 20:42:13 Test Item Value Reference Range Interpretation Comments POCT GLU (test code = 83 mg/dL 70-110 Notifi ed Provider [id number]) Lab Interpretation (test Normal code = 22655-9) [facility] GLUCOSE (AUTOMATED)2022-04-07 16:28:03 Test Item Value Reference Range Interpretation Comments POCT GLU (test code = 104 mg/dL 70-110 Notifi ed Provider [id number]) Lab Interpretation (test Normal code = 21345-2) [facility] GLUCOSE (AUTOMATED)2022-04-07 16:28:03 Test Item Value Reference Range Interpretation Comments POCT GLU (test code = 104 mg/dL 70-110 Notifi ed Provider [id number]) Lab Interpretation (test Normal code = 45773-4) [facility] GLUCOSE (AUTOMATED)2022-04-07 16:28:03 Test Item Value Reference Range Interpretation Comments POCT GLU (test code = 104 mg/dL 70-110 Notifi ed Provider [id number]) Lab Interpretation (test Normal code = 72607-3) [facility] 16:28:03 Test Item Value Reference Range Interpretation Comments POCT GLU (test code = 104 mg/dL 70-110 Notifi ed Provider [id number]) Lab Interpretation (test Normal code = 43753-4) [facility]-07 02:18:10 Test Item Value Reference Range Interpretation Comments POCT GLU (test code = 1663572400) 159 mg/dL 70-110 H Lab Interpretation (test code = Abnormal 65008-3) [facility] 02:18:10 Test Item Value Reference Range Interpretation Comments POCT GLU (test code = 4887322333) 159 mg/dL 70-110 H Lab Interpretation (test code = Abnormal 09119-6) [facility] 02:18:10 Test Item Value Reference Range Interpretation Comments POCT GLU (test code = 3447167231) 159 mg/dL 70-110 H Lab Interpretation (test code = Abnormal 23711-4) [facility] 02:18:10 Test Item Value Reference Range Interpretation Comments POCT GLU (test code = 6710307779) 159 mg/dL 70-110 [facility] = [facility] 57213-3[facility] Test Item Value Reference Range Interpretation Comments POCT GLU (test code = 6311491774) 160 mg/dL 70-110 H Lab Interpretation (test code = Abnormal 69028-7[facility] 22:04:37 Test Item Value Reference Range Interpretation Comments POCT GLU (test code = 5475198242) 160 mg/dL 70-110 H Lab Interpretation (test code = Abnormal 81499-3) [facility] 22:04:37 Test Item Value Reference Range Interpretation Comments POCT GLU (test code = 6090958924) 160 mg/dL 70-110 H Lab Interpretation (test code = Abnormal 96062-4) [facility] GLUCOSE (AUTOMATED)2022-04-06 22:04:37 Test Item Value Reference Range Interpretation Comments POCT GLU (test code = 7073806314) 160 mg/dL 70-110 H Lab Interpretation (test code = Abnormal 74916-5) [facility] GLUCOSE (AUTOMATED)2022-04-06 16:39:08 Test Item Value Reference Range Interpretation Comments POCT GLU (test code = 7455659308) 69 mg/dL 70-110 L Lab Interpretation (test code = Abnormal 70387-8) [facility] GLUCOSE (AUTOMATED)2022-04-06 16:39:08 Test Item Value Reference Range Interpretation Comments POCT GLU (test code = 8812451596) 69 mg/dL 70-110 L Lab Interpretation (test code = Abnormal 04761-6) [facility] GLUCOSE (AUTOMATED)2022-04-06 16:39:08 Test Item Value Reference Range Interpretation Comments POCT GLU (test code = 6455362822) 69 mg/dL 70-110 L Lab Interpretation (test code = Abnormal 63324-7) [facility] GLUCOSE (AUTOMATED)2022-04-06 16:39:08 Test Item Value Reference Range Interpretation Comments POCT GLU (test code = 9536934708) 69 mg/dL 70-110 L Lab Interpretation (test code = Abnormal 53737-9) [facility] GLUCOSE (AUTOMATED)2022-04-06 13:18:58 Test Item Value Reference Range Interpretation Comments POCT GLU (test code = 9062237801) 76 mg/dL 70-110 Lab Interpretation (test code = Normal 27057-5) [facility] GLUCOSE (AUTOMATED)2022-04-06 13:18:58 Test Item Value Reference Range Interpretation Comments POCT GLU (test code = 0771574779) 76 mg/dL 70-110 Lab Interpretation (test code = Normal 84397-9) [facility] GLUCOSE (AUTOMATED)2022-04-06 13:18:58 Test Item Value Reference Range Interpretation Comments POCT GLU (test code = 2263428559) 76 mg/dL 70-110 Lab Interpretation (test code = Normal 63033-4) [facility] GLUCOSE (AUTOMATED)2022-04-06 13:18:58 Test Item Value Reference Range Interpretation Comments POCT GLU (test code = 5108112523) 76 mg/dL 70-110 Lab Interpretation (test code = Normal 68831-9) [facility] METABOLIC PANEL (NA, K, CL, CO2, GLUCOSE, BUN, CREATININE, CA)2022-04-06 10:42:52 Test Item Value Reference Range Interpretation Comments NA (test code = 134 mmol/L 135-145 L 5010050529) K (test code = 4.3 mmol/L 3.5-5 7604622189) CL (test code = 98 mmol/L 98-108 6990376668) CO2 TOTAL (test code = 26 mmol/L 23-31 7558150019) AGAP (test code = 2-16 7328978657) BUN (test code = 30 mg/dL 7-23 H 3339008047) GLUCOSE (test code = 94 mg/dL 70-110 6340264672) CREATININE (test code = 6.02 mg/dL 0.6-1.25 H 7457149710) CALCIUM (test code = 9.0 mg/dL 8.6-10.6 8319699021) eGFR (test code = mL/min/1.73m2 4673631927) MARINO (test code = MARINO) Association of Glomerular Filtration Rate (GFR) and Staging of Kidney Disease* + --+ --+ ------+| GFR (mL/min/1.73 m2) ?| With Kidney Damage ?| ?Without Kidney Damage+ --------+ --------+ +| ?>90 ?| ?Stage one ?| ? Normal ?+ ---+ ---+ -------+| ?60-89 ?| ?Stage two ?| ? Decreased GFR ? + --+ --+ ------+| ?30-59 ?| ?Stage three ?| ? Stage three ? + --+ --+ ------+| ?15-29 ?| ?Stage four ? | ? Stage four ?+ ---+ ---+ -------+| ?<15 (or dialysis) ? ?| ?Stage five ? | ? Stage five ?+ ---+ ---+ -------+ *Each stage assumes the associated GFR level has been in effect for at least three months. ?Stages 1 to 5, with or without kidney disease, indicate chronic kidney disease. Notes: Determination of stages one and two (with eGFR >59mL/min/1.73 m2) requires estimation of kidney damage for at least three months as defined by structural or functional abnormalities of the kidney, manifested by either:Pathological abnormalities or Markers of kidney damage (including abnormalities in the composition of the blood or urine or abnormalities in imaging tests). Lab Interpretation Abnormal (test code = 40030-9) [facility] METABOLIC PANEL (NA, K, CL, CO2, GLUCOSE, BUN, CREATININE, CA)2022-04-06 10:42:52 Test Item Value Reference Range Interpretation Comments NA (test code = 134 mmol/L 135-145 L 7209522875) K (test code = 4.3 mmol/L 3.5-5.0 7301606389) CL (test code = 98 mmol/L 98-108 0848347580) CO2 TOTAL (test code = 26 mmol/L 23-31 6561065117) AGAP (test code = 2-16 7037818562) BUN (test code = 30 mg/dL 7-23 H 3960752740) GLUCOSE (test code = 94 mg/dL 70-110 0037421130) CREATININE (test code = 6.02 mg/dL 0.60-1.25 H 9551608010) CALCIUM (test code = 9.0 mg/dL 8.6-10.6 1960781059) eGFR (test code = mL/min/1.73m2 9727822721) MARINO (test code = MARINO) Association of Glomerular Filtration Rate (GFR) and Staging of Kidney Disease* + --+ --+ ------+| GFR (mL/min/1.73 m2) ?| With Kidney Damage ?| ?Without Kidney Damage+ --------+ --------+ +| ?>90 ?| ?Stage one ?| ? Normal ?+ ---+ ---+ -------+| ?60-89 ?| ?Stage two ?| ? Decreased GFR ? + --+ --+ ------+| ?30-59 ?| ?Stage three ?| ? Stage three ? + --+ --+ ------+| ?15-29 ?| ?Stage four ? | ? Stage four ?+ ---+ ---+ -------+| ?<15 (or dialysis) ? ?| ?Stage five ? | ? Stage five ?+ ---+ ---+ -------+ *Each stage assumes the associated GFR level has been in effect for at least three months. ?Stages 1 to 5, with or without kidney disease, indicate chronic kidney disease. Notes: Determination of stages one and two (with eGFR >59mL/min/1.73 m2) requires estimation of kidney damage for at least three months as defined by structural or functional abnormalities of the kidney, manifested by either:Pathological abnormalities or Markers of kidney damage (including abnormalities in the composition of the blood or urine or abnormalities in imaging tests). Lab Interpretation Abnormal (test code = 68929-8) [facility] (NA, K, CL, CO2, GLUCOSE, BUN, CREATININE, CA)2022-04-06 10:42:52 Test Item Value Reference Range Interpretation Comments NA (test code = 134 mmol/L 135-145 L 2730619531) K (test code = 4.3 mmol/L 3.5-5.0 6753608704) CL (test code = 98 mmol/L 98-108 7901763316) CO2 TOTAL (test code = 26 mmol/L 23-31 0314612293) AGAP (test code = 2-16 1561609801) BUN (test code = 30 mg/dL 7-23 H 5761710259) GLUCOSE (test code = 94 mg/dL 70-110 1357001093) CREATININE (test code = 6.02 mg/dL 0.60-1.25 H 6990176689) CALCIUM (test code = 9.0 mg/dL 8.6-10.6 5883996028) eGFR (test code = mL/min/1.73m2 0873753756) MARINO (test code = MARINO) Association of Glomerular Filtration Rate (GFR) and Staging of Kidney Disease* + --+ --+ ------+| GFR (mL/min/1.73 m2) ?| With Kidney Damage ?| ?Without Kidney Damage+ --------+ --------+ +| ?>90 ?| ?Stage one ?| ? Normal ?+ ---+ ---+ -------+| ?60-89 ?| ?Stage two ?| ? Decreased GFR ? + --+ --+ ------+| ?30-59 ?| ?Stage three ?| ? Stage three ? + --+ --+ ------+| ?15-29 ?| ?Stage four ? | ? Stage four ?+ ---+ ---+ -------+| ?<15 (or dialysis) ? ?| ?Stage five ? | ? Stage five ?+ ---+ ---+ -------+ *Each stage assumes the associated GFR level has been in effect for at least three months. ?Stages 1 to 5, with or without kidney disease, indicate chronic kidney disease. Notes: Determination of stages one and two (with eGFR >59mL/min/1.73 m2) requires estimation of kidney damage for at least three months as defined by structural or functional abnormalities of the kidney, manifested by either:Pathological abnormalities or Markers of kidney damage (including abnormalities in the composition of the blood or urine or abnormalities in imaging tests). Lab Interpretation Abnormal (test code = 80142-9) [facility] (NA, K, CL, CO2, GLUCOSE, BUN, CREATININE, CA)2022-04-06 10:42:52 Test Item Value Reference Range Interpretation Comments NA (test code = 134 mmol/L 135-145 L 0732270285) K (test code = 4.3 mmol/L 3.5-5.0 1826187147) CL (test code = 98 mmol/L 98-108 0482083845) CO2 TOTAL (test code = 26 mmol/L 23-31 1709478448) AGAP (test code = 2-16 1171751892) BUN (test code = 30 mg/dL 7-23 H 5564433933) GLUCOSE (test code = 94 mg/dL 70-110 3455810823) CREATININE (test code = 6.02 mg/dL 0.60-1.25 H 7946538303) CALCIUM (test code = 9.0 mg/dL 8.6-10.6 8354845316) eGFR (test code = mL/min/1.73m2 1929017933) MARINO (test code = MARINO) Association of Glomerular Filtration Rate (GFR) and Staging of Kidney Disease* + --+ --+ ------+| GFR (mL/min/1.73 m2) ?| With Kidney Damage ?| ?Without Kidney Damage+ --------+ --------+ +| ?>90 ?| ?Stage one ?| ? Normal ?+ ---+ ---+ -------+| ?60-89 ?| ?Stage two ?| ? Decreased GFR ? + --+ --+ ------+| ?30-59 ?| ?Stage three ?| ? Stage three ? + --+ --+ ------+| ?15-29 ?| ?Stage four ? | ? Stage four ?+ ---+ ---+ -------+| ?<15 (or dialysis) ? ?| ?Stage five ? | ? Stage five ?+ ---+ ---+ -------+ *Each stage assumes the associated GFR level has been in effect for at least three months. ?Stages 1 to 5, with or without kidney disease, indicate chronic kidney disease. Notes: Determination of stages one and two (with eGFR >59mL/min/1.73 m2) requires estimation of kidney damage for at least three months as defined by structural or functional abnormalities of the kidney, manifested by either:Pathological abnormalities or Markers of kidney damage (including abnormalities in the composition of the blood or urine or abnormalities in imaging tests). Lab Interpretation Abnormal (test code = 89452-1) [facility] WITH [id number] 09:47:29 Test Item Value Reference Range Interpretation Comments WBC (test code = See_Comment [Automated 2618-2) message] The sy stem which generated this result transmitted reference range : 4.20 - 10.70 10*3/?L. The reference range was not used to interpret this result as normal/abnormal . RBC (test code = See_Comment [Automated 063-8) message] The sy stem which generated this result transmitted reference range : 4.26 - 5.52 10*6/?L. The reference range was not used to interpret this result as normal/abnormal . HGB (test code = 11.7 g/dL 12.2-16.4 L 718-7) HCT (test code = 39.1 % 38.4-49.3 4544-3) MCV (test code = 88.3 fL 81.7-95.6 787-2) MCH (test code = 26.4 pg 26.1-32.7 785-6) MCHC (test code = 29.9 g/dL 31.2-35 L 786-4) RDW-SD (test code = 47.4 fL 38.5-51.6 07097-3) RDW-CV (test code = 14.7 % 12.1-15.4 788-0) PLT (test code = See_Comment H [Automated 777-3) message] The sy stem which generated this result transmitted reference range : 150 - 328 10*3/ ?L. The reference r adama was not used to interpret this result as normal/abnormal . MPV (test code = 11.7 fL 9.8-13 31858-9) NRBC/100 WBC (test See_Comment [Automat ed code = 2055225934) message] The system which generated this result transmitted reference range : 0.0 - 10.0 /100 WBCs. The refer ence range was not u sed to interpret th is result as normal/abnormal . NRBC x10^3 (test code See_Comment [Auto mated = 9265100601) message] The s ystem which generated this result transmitted reference range : 10*3/?L. The reference range was not used to interpret this result as normal/abnormal . GRAN MAT (NEUT) % 73.3 % (test code = 770-8) IMM GRAN % (test code 0.70 % = 1710175802) LYMPH % (test code = 13.3 % 736-9) MONO % (test code = 8.6 % 5905-5) EOS % (test code = 3.4 % 713-8) BASO % (test code = 0.7 % 706-2) GRAN MAT x10^3(ANC) 7.15 10*3/uL 1.99-6.95 H (test code = 0504022669) IMM GRAN x10^3 (test 0.07 10*3/uL 0-0.06 H code = 5434417725) LYMPH x10^3 (test code 1.30 10*3/uL 1.09-3.23 = 731-0) MONO x10^3 (test code 0.84 10*3/uL 0.36-1.02 = 742-7) EOS x10^3 (test code = 0.33 10*3/uL 0.06-0.53 711-2) BASO x10^3 (test code 0.07 10*3/uL 0.01-0.09 = 704-7) Lab Interpretation Abnormal (test code = 50321-8) [facility] WITH [id number] 09:47:29 Test Item Value Reference Range Interpretation Comments WBC (test code = See_Comment [Automated 6690-2) message] The sy stem which generated this result transmitted reference range : 4.20 - 10.70 10*3/?L. The reference range was not used to interpret this result as normal/abnormal . RBC (test code = See_Comment [Automated 789-8) message] The sy stem which generated this result transmitted reference range : 4.26 - 5.52 10*6/?L. The reference range was not used to interpret this result as normal/abnormal . HGB (test code = 11.7 g/dL 12.2-16.4 L 718-7) HCT (test code = 39.1 % 38.4-49.3 4544-3) MCV (test code = 88.3 fL 81.7-95.6 787-2) MCH (test code = 26.4 pg 26.1-32.7 785-6) MCHC (test code = 29.9 g/dL 31.2-35.0 L 786-4) RDW-SD (test code = 47.4 fL 38.5-51.6 77969-5) RDW-CV (test code = 14.7 % 12.1-15.4 788-0) PLT (test code = See_Comment H [Automated 777-3) message] The sy stem which generated this result transmitted reference range : 150 - 328 10*3/ ?L. The reference r adama was not used to interpret this result as normal/abnormal . MPV (test code = 11.7 fL 9.8-13.0 87393-1) NRBC/100 WBC (test See_Comment [Automat ed code = 1858427000) message] The system which generated this result transmitted reference range : 0.0 - 10.0 /100 WBCs. The refer ence range was not u sed to interpret th is result as normal/abnormal . NRBC x10^3 (test code See_Comment [Auto mated = 9845574675) message] The s ystem which generated this result transmitted reference range : 10*3/?L. The reference range was not used to interpret this result as normal/abnormal . GRAN MAT (NEUT) % 73.3 % (test code = 770-8) IMM GRAN % (test code 0.70 % = 4317259643) LYMPH % (test code = 13.3 % 736-9) MONO % (test code = 8.6 % 5905-5) EOS % (test code = 3.4 % 713-8) BASO % (test code = 0.7 % 706-2) GRAN MAT x10^3(ANC) 7.15 10*3/uL 1.99-6.95 H (test code = 0007842796) IMM GRAN x10^3 (test 0.07 10*3/uL 0.00-0.06 H code = 4801398537) LYMPH x10^3 (test code 1.30 10*3/uL 1.09-3.23 = 731-0) MONO x10^3 (test code 0.84 10*3/uL 0.36-1.02 = 742-7) EOS x10^3 (test code = 0.33 10*3/uL 0.06-0.53 711-2) BASO x10^3 (test code 0.07 10*3/uL 0.01-0.09 = 704-7) Lab Interpretation Abnormal (test code = 60410-0) [facility] WITH [id number] 09:47:29 Test Item Value Reference Range Interpretation Comments WBC (test code = See_Comment [Automated 4090-2) message] The sy stem which generated this result transmitted reference range : 4.20 - 10.70 10*3/?L. The reference range was not used to interpret this result as normal/abnormal . RBC (test code = See_Comment [Automated 813-8) message] The sy stem which generated this result transmitted reference range : 4.26 - 5.52 10*6/?L. The reference range was not used to interpret this result as normal/abnormal . HGB (test code = 11.7 g/dL 12.2-16.4 L 718-7) HCT (test code = 39.1 % 38.4-49.3 4544-3) MCV (test code = 88.3 fL 81.7-95.6 787-2) MCH (test code = 26.4 pg 26.1-32.7 785-6) MCHC (test code = 29.9 g/dL 31.2-35.0 L 786-4) RDW-SD (test code = 47.4 fL 38.5-51.6 09132-1) RDW-CV (test code = 14.7 % 12.1-15.4 788-0) PLT (test code = See_Comment H [Automated 777-3) message] The sy stem which generated this result transmitted reference range : 150 - 328 10*3/ ?L. The reference r adama was not used to interpret this result as normal/abnormal . MPV (test code = 11.7 fL 9.8-13.0 22166-1) NRBC/100 WBC (test See_Comment [Automat ed code = 0562459217) message] The system which generated this result transmitted reference range : 0.0 - 10.0 /100 WBCs. The refer ence range was not u sed to interpret th is result as normal/abnormal . NRBC x10^3 (test code See_Comment [Auto mated = 9316246251) message] The s ystem which generated this result transmitted reference range : 10*3/?L. The reference range was not used to interpret this result as normal/abnormal . GRAN MAT (NEUT) % 73.3 % (test code = 770-8) IMM GRAN % (test code 0.70 % = 8448169091) LYMPH % (test code = 13.3 % 736-9) MONO % (test code = 8.6 % 5905-5) EOS % (test code = 3.4 % 713-8) BASO % (test code = 0.7 % 706-2) GRAN MAT x10^3(ANC) 7.15 10*3/uL 1.99-6.95 H (test code = 9376389967) IMM GRAN x10^3 (test 0.07 10*3/uL 0.00-0.06 H code = 5588806001) LYMPH x10^3 (test code 1.30 10*3/uL 1.09-3.23 = 731-0) MONO x10^3 (test code 0.84 10*3/uL 0.36-1.02 = 742-7) EOS x10^3 (test code = 0.33 10*3/uL 0.06-0.53 711-2) BASO x10^3 (test code 0.07 10*3/uL 0.01-0.09 = 704-7) Lab Interpretation Abnormal (test code = 85048-8) [facility] WITH [id number] 09:47:29 Test Item Value Reference Range Interpretation Comments WBC (test code = See_Comment [Automated 5490-2) message] The sy stem which generated this result transmitted reference range : 4.20 - 10.70 10*3/?L. The reference range was not used to interpret this result as normal/abnormal . RBC (test code = See_Comment [Automated 179-8) message] The sy stem which generated this result transmitted reference range : 4.26 - 5.52 10*6/?L. The reference range was not used to interpret this result as normal/abnormal . HGB (test code = 11.7 g/dL 12.2-16.4 L 718-7) HCT (test code = 39.1 % 38.4-49.3 4544-3) MCV (test code = 88.3 fL 81.7-95.6 787-2) MCH (test code = 26.4 pg 26.1-32.7 785-6) MCHC (test code = 29.9 g/dL 31.2-35.0 L 786-4) RDW-SD (test code = 47.4 fL 38.5-51.6 11874-1) RDW-CV (test code = 14.7 % 12.1-15.4 788-0) PLT (test code = See_Comment H [Automated 777-3) message] The sy stem which generated this result transmitted reference range : 150 - 328 10*3/ ?L. The reference r adama was not used to interpret this result as normal/abnormal . MPV (test code = 11.7 fL 9.8-13.0 40917-0) NRBC/100 WBC (test See_Comment [Automat ed code = 6008483357) message] The system which generated this result transmitted reference range : 0.0 - 10.0 /100 WBCs. The refer ence range was not u sed to interpret th is result as normal/abnormal . NRBC x10^3 (test code See_Comment [Auto mated = 0693973107) message] The s ystem which generated this result transmitted reference range : 10*3/?L. The reference range was not used to interpret this result as normal/abnormal . GRAN MAT (NEUT) % 73.3 % (test code = 770-8) IMM GRAN % (test code 0.70 % = 5521594733) LYMPH % (test code = 13.3 % 736-9) MONO % (test code = 8.6 % 5905-5) EOS % (test code = 3.4 % 713-8) BASO % (test code = 0.7 % 706-2) GRAN MAT x10^3(ANC) 7.15 10*3/uL 1.99-6.95 H (test code = 4267823668) IMM GRAN x10^3 (test 0.07 10*3/uL 0.00-0.06 H code = 1258774211) LYMPH x10^3 (test code 1.30 10*3/uL 1.09-3.23 = 731-0) MONO x10^3 (test code 0.84 10*3/uL 0.36-1.02 = 742-7) EOS x10^3 (test code = 0.33 10*3/uL 0.06-0.53 711-2) BASO x10^3 (test code 0.07 10*3/uL 0.01-0.09 = 704-7) Lab Interpretation Abnormal (test code = 45588-2) [facility] GLUCOSE (AUTOMATED)2022-04-06 01:14:02 Test Item Value Reference Range Interpretation Comments POCT GLU (test code = 1533950849) 130 mg/dL 70-110 H Lab Interpretation (test code = Abnormal 55655-3) [facility] GLUCOSE (AUTOMATED)2022-04-06 01:14:02 Test Item Value Reference Range Interpretation Comments POCT GLU (test code = 0494891543) 130 mg/dL 70-110 H Lab Interpretation (test code = Abnormal 36802-1) [facility] GLUCOSE (AUTOMATED)2022-04-06 01:14:02 Test Item Value Reference Range Interpretation Comments POCT GLU (test code = 6753703412) 130 mg/dL 70-110 H Lab Interpretation (test code = Abnormal 77710-6) [facility] GLUCOSE (AUTOMATED)2022-04-06 01:14:02 Test Item Value Reference Range Interpretation Comments POCT GLU (test code = 3762250576) 130 mg/dL 70-110 H Lab Interpretation (test code = Abnormal 30291-0) [facility]:00 Test Item Value Reference Range Interpretation Comments HBsAB (test code = Positive 7141407766) HBsAb mIU/mL Semi-Quantitative (test code = 2765272700) MARINO (test code = Interpretation: MARINO) ?Hepatitis B Surface Antibody ? Negative - Patient is considered to be not immune to infection with HBV. ? ? Positive - Anti-HBs detected at greater than or equal to 12 mIU/mL. ?Patient is considered to be immune to infection with HBV. ? [facility] 23:40:00 Test Item Value Reference Range Interpretation Comments HBsAB (test code = Positive 5870581580) HBsAb mIU/mL Semi-Quantitative (test code = 2680229951) MARINO (test code = Interpretation: MARINO) ?Hepatitis B Surface Antibody ? Negative - Patient is considered to be not immune to infection with HBV. ? ? Positive - Anti-HBs detected at greater than or equal to 12 mIU/mL. ?Patient is considered to be immune to infection with HBV. ? [facility] 23:40:00 Test Item Value Reference Range Interpretation Comments HBsAB (test code = Positive 3905877991) HBsAb mIU/mL Semi-Quantitative (test code = 4664639191) MARINO (test code = Interpretation: MARINO) ?Hepatitis B Surface Antibody ? Negative - Patient is considered to be not immune to infection with HBV. ? ? Positive - Anti-HBs detected at greater than or equal to 12 mIU/mL. ?Patient is considered to be immune to infection with HBV. ? [facility] B Surface Antibody (HBsAb)2022-04-05 23:40:00 Test Item Value Reference Range Interpretation Comments HBsAB (test code = Positive 3450792091) HBsAb mIU/mL Semi-Quantitative (test code = 8769651662) MARINO (test code = Interpretation: MARINO) ?Hepatitis B Surface Antibody ? Negative - Patient is considered to be not immune to infection with HBV. ? ? Positive - Anti-HBs detected at greater than or equal to 12 mIU/mL. ?Patient is considered to be immune to infection with HBV. ? [facility] B Surface Antigen (HBsAg)2022-04-05 23:23:11 Test Item Value Reference Range Interpretation Comments HBsAg Semi-Quantitative (test code = Negative Negative 5195-3) [facility] B Surface Antigen (HBsAg)2022-04-05 23:23:11 Test Item Value Reference Range Interpretation Comments HBsAg Semi-Quantitative (test code = Negative Negative 5195-3) [facility] B Surface Antigen (HBsAg)2022-04-05 23:23:11 Test Item Value Reference Range Interpretation Comments HBsAg Semi-Quantitative (test code = Negative Negative 5195-3) [facility] B Surface Antigen (HBsAg)2022-04-05 23:23:11 Test Item Value Reference Range Interpretation Comments HBsAg Semi-Quantitative (test code = Negative Negative 5195-3) [facility] GLUCOSE (AUTOMATED)2022-04-05 21:40:01 Test Item Value Reference Range Interpretation Comments POCT GLU (test code = 9130961878) 91 mg/dL 70-110 Lab Interpretation (test code = Normal 69434-7) [facility] GLUCOSE (AUTOMATED)2022-04-05 21:40:01 Test Item Value Reference Range Interpretation Comments POCT GLU (test code = 8626641791) 91 mg/dL 70-110 Lab Interpretation (test code = Normal 07243-3) [facility] GLUCOSE (AUTOMATED)2022-04-05 21:40:01 Test Item Value Reference Range Interpretation Comments POCT GLU (test code = 8339690854) 91 mg/dL 70-110 Lab Interpretation (test code = Normal 96766-0) [facility] GLUCOSE (AUTOMATED)2022-04-05 21:40:01 Test Item Value Reference Range Interpretation Comments POCT GLU (test code = 7365092412) 91 mg/dL 70-110 Lab Interpretation (test code = Normal 37418-9) [facility] GLUCOSE (AUTOMATED)2022-04-05 17:02:57 Test Item Value Reference Range Interpretation Comments POCT GLU (test code = 7491575582) 101 mg/dL 70-110 Lab Interpretation (test code = Normal 08970-0) [facility] GLUCOSE (AUTOMATED)2022-04-05 17:02:57 Test Item Value Reference Range Interpretation Comments POCT GLU (test code = 1224159696) 101 mg/dL 70-110 Lab Interpretation (test code = Normal 82655-7) [facility] GLUCOSE (AUTOMATED)2022-04-05 17:02:57 Test Item Value Reference Range Interpretation Comments POCT GLU (test code = 8930439067) 101 mg/dL 70-110 Lab Interpretation (test code = Normal 84538-3) [facility] GLUCOSE (AUTOMATED)2022-04-05 17:02:57 Test Item Value Reference Range Interpretation Comments POCT GLU (test code = 4728073746) 101 mg/dL 70-110 Lab Interpretation (test code = Normal 98293-4) [facility] [id number] 16:12:14 Test Item Value Reference Range Interpretation Comments CRP (test code = 18.7 mg/dL See_Comment H [Automated message] 2307915742) The system [employer] generated this result transmit rudolph reference range : <=0.8. The refe rence range was not u sed to interpret th is result as normal/abnormal . Lab Interpretation Abnormal (test code = 89275-7) [facility] [id number] 16:12:14 Test Item Value Reference Range Interpretation Comments CRP (test code = 18.7 mg/dL See_Comment H [Automated message] 2912234944) The system [employer] generated this result transmit rudolph reference range : <=0.8. The refe rence range was not u sed to interpret th is result as normal/abnormal . Lab Interpretation Abnormal (test code = 41775-2) [facility] [id number] 16:12:14 Test Item Value Reference Range Interpretation Comments CRP (test code = 18.7 mg/dL See_Comment H [Automated message] 5814241365) The system [employer] generated this result transmit rudolph reference range : <=0.8. The refe rence range was not u sed to interpret th is result as normal/abnormal . Lab Interpretation Abnormal (test code = 80500-1) [facility] [id number] 16:12:14 Test Item Value Reference Range Interpretation Comments CRP (test code = 18.7 mg/dL See_Comment H [Automated message] 6045533905) The system [employer] generated this result transmit rudolph reference range : <=0.8. The refe rence range was not u sed to interpret th is result as normal/abnormal . Lab Interpretation Abnormal (test code = 70686-2) [facility] GLUCOSE (AUTOMATED)2022-04-05 13:35:19 Test Item Value Reference Range Interpretation Comments POCT GLU (test code = 6226612648) 76 mg/dL 70-110 Lab Interpretation (test code = Normal 99462-4) [facility] GLUCOSE (AUTOMATED)2022-04-05 13:35:19 Test Item Value Reference Range Interpretation Comments POCT GLU (test code = 6454963922) 76 mg/dL 70-110 Lab Interpretation (test code = Normal 94105-2) [facility] GLUCOSE (AUTOMATED)2022-04-05 13:35:19 Test Item Value Reference Range Interpretation Comments POCT GLU (test code = 4605570593) 76 mg/dL 70-110 Lab Interpretation (test code = Normal 25425-5) [facility] GLUCOSE (AUTOMATED)2022-04-05 13:35:19 Test Item Value Reference Range Interpretation Comments POCT GLU (test code = 1594232440) 76 mg/dL 70-110 Lab Interpretation (test code = Normal 53597-7) [facility] Metabolic Panel (NA, K, CL, CO2, GLUCOSE, BUN, CREATININE, CA)2022-04-05 10:00:31 Test Item Value Reference Range Interpretation Comments NA (test code = 136 mmol/L 135-145 0922423878) K (test code = 4.6 mmol/L 3.5-5 8092305378) CL (test code = 98 mmol/L 98-108 5539413593) CO2 TOTAL (test code = 28 mmol/L 23-31 8719686467) AGAP (test code = 2-16 4754192966) BUN (test code = 50 mg/dL 7-23 H 5547793120) GLUCOSE (test code = 74 mg/dL 70-110 3482848567) CREATININE (test code = 8.89 mg/dL 0.6-1.25 H 0233003899) CALCIUM (test code = 9.0 mg/dL 8.6-10.6 6843622570) eGFR (test code = mL/min/1.73m2 1688837368) MARINO (test code = MARINO) Association of Glomerular Filtration Rate (GFR) and Staging of Kidney Disease* + --+ --+ ------+| GFR (mL/min/1.73 m2) ?| With Kidney Damage ?| ?Without Kidney Damage+ --------+ --------+ +| ?>90 ?| ?Stage one ?| ? Normal ?+ ---+ ---+ -------+| ?60-89 ?| ?Stage two ?| ? Decreased GFR ? + --+ --+ ------+| ?30-59 ?| ?Stage three ?| ? Stage three ? + --+ --+ ------+| ?15-29 ?| ?Stage four ? | ? Stage four ?+ ---+ ---+ -------+| ?<15 (or dialysis) ? ?| ?Stage five ? | ? Stage five ?+ ---+ ---+ -------+ *Each stage assumes the associated GFR level has been in effect for at least three months. ?Stages 1 to 5, with or without kidney disease, indicate chronic kidney disease. Notes: Determination of stages one and two (with eGFR >59mL/min/1.73 m2) requires estimation of kidney damage for at least three months as defined by structural or functional abnormalities of the kidney, manifested by either:Pathological abnormalities or Markers of kidney damage (including abnormalities in the composition of the blood or urine or abnormalities in imaging tests). Lab Interpretation Abnormal (test code = 76116-2) [facility] Metabolic Panel (NA, K, CL, CO2, GLUCOSE, BUN, CREATININE, CA)2022-04-05 10:00:31 Test Item Value Reference Range Interpretation Comments NA (test code = 136 mmol/L 135-145 5095038402) K (test code = 4.6 mmol/L 3.5-5.0 2344221003) CL (test code = 98 mmol/L 98-108 4505776190) CO2 TOTAL (test code = 28 mmol/L 23-31 8916200710) AGAP (test code = 2-16 0684327923) BUN (test code = 50 mg/dL 7-23 H 8909608175) GLUCOSE (test code = 74 mg/dL 70-110 3639044053) CREATININE (test code = 8.89 mg/dL 0.60-1.25 H 9252751072) CALCIUM (test code = 9.0 mg/dL 8.6-10.6 2292599839) eGFR (test code = mL/min/1.73m2 3311439464) MARINO (test code = MARINO) Association of Glomerular Filtration Rate (GFR) and Staging of Kidney Disease* + --+ --+ ------+| GFR (mL/min/1.73 m2) ?| With Kidney Damage ?| ?Without Kidney Damage+ --------+ --------+ +| ?>90 ?| ?Stage one ?| ? Normal ?+ ---+ ---+ -------+| ?60-89 ?| ?Stage two ?| ? Decreased GFR ? + --+ --+ ------+| ?30-59 ?| ?Stage three ?| ? Stage three ? + --+ --+ ------+| ?15-29 ?| ?Stage four ? | ? Stage four ?+ ---+ ---+ -------+| ?<15 (or dialysis) ? ?| ?Stage five ? | ? Stage five ?+ ---+ ---+ -------+ *Each stage assumes the associated GFR level has been in effect for at least three months. ?Stages 1 to 5, with or without kidney disease, indicate chronic kidney disease. Notes: Determination of stages one and two (with eGFR >59mL/min/1.73 m2) requires estimation of kidney damage for at least three months as defined by structural or functional abnormalities of the kidney, manifested by either:Pathological abnormalities or Markers of kidney damage (including abnormalities in the composition of the blood or urine or abnormalities in imaging tests). Lab Interpretation Abnormal (test code = 92109-3) [facility] Metabolic Panel (NA, K, CL, CO2, GLUCOSE, BUN, CREATININE, CA)2022-04-05 10:00:31 Test Item Value Reference Range Interpretation Comments NA (test code = 136 mmol/L 135-145 0753583440) K (test code = 4.6 mmol/L 3.5-5.0 3459299936) CL (test code = 98 mmol/L 98-108 2167585751) CO2 TOTAL (test code = 28 mmol/L 23-31 1867704334) AGAP (test code = 2-16 1241065807) BUN (test code = 50 mg/dL 7-23 H 5310277672) GLUCOSE (test code = 74 mg/dL 70-110 2835294741) CREATININE (test code = 8.89 mg/dL 0.60-1.25 H 7270876340) CALCIUM (test code = 9.0 mg/dL 8.6-10.6 9460693430) eGFR (test code = mL/min/1.73m2 3990680887) MARINO (test code = MARINO) Association of Glomerular Filtration Rate (GFR) and Staging of Kidney Disease* + --+ --+ ------+| GFR (mL/min/1.73 m2) ?| With Kidney Damage ?| ?Without Kidney Damage+ --------+ --------+ +| ?>90 ?| ?Stage one ?| ? Normal ?+ ---+ ---+ -------+| ?60-89 ?| ?Stage two ?| ? Decreased GFR ? + --+ --+ ------+| ?30-59 ?| ?Stage three ?| ? Stage three ? + --+ --+ ------+| ?15-29 ?| ?Stage four ? | ? Stage four ?+ ---+ ---+ -------+| ?<15 (or dialysis) ? ?| ?Stage five ? | ? Stage five ?+ ---+ ---+ -------+ *Each stage assumes the associated GFR level has been in effect for at least three months. ?Stages 1 to 5, with or without kidney disease, indicate chronic kidney disease. Notes: Determination of stages one and two (with eGFR >59mL/min/1.73 m2) requires estimation of kidney damage for at least three months as defined by structural or functional abnormalities of the kidney, manifested by either:Pathological abnormalities or Markers of kidney damage (including abnormalities in the composition of the blood or urine or abnormalities in imaging tests). Lab Interpretation Abnormal (test code = 04927-9) [facility] Metabolic Panel (NA, K, CL, CO2, GLUCOSE, BUN, CREATININE, CA)2022-04-05 10:00:31 Test Item Value Reference Range Interpretation Comments NA (test code = 136 mmol/L 135-145 2605899529) K (test code = 4.6 mmol/L 3.5-5.0 4610703451) CL (test code = 98 mmol/L 98-108 2588303424) CO2 TOTAL (test code = 28 mmol/L 23-31 0668498369) AGAP (test code = 2-16 6184943834) BUN (test code = 50 mg/dL 7-23 H 1281858292) GLUCOSE (test code = 74 mg/dL 70-110 0351734672) CREATININE (test code = 8.89 mg/dL 0.60-1.25 H 5738280738) CALCIUM (test code = 9.0 mg/dL 8.6-10.6 2556243784) eGFR (test code = mL/min/1.73m2 4067896689) MARINO (test code = MARINO) Association of Glomerular Filtration Rate (GFR) and Staging of Kidney Disease* + --+ --+ ------+| GFR (mL/min/1.73 m2) ?| With Kidney Damage ?| ?Without Kidney Damage+ --------+ --------+ +| ?>90 ?| ?Stage one ?| ? Normal ?+ ---+ ---+ -------+| ?60-89 ?| ?Stage two ?| ? Decreased GFR ? + --+ --+ ------+| ?30-59 ?| ?Stage three ?| ? Stage three ? + --+ --+ ------+| ?15-29 ?| ?Stage four ? | ? Stage four ?+ ---+ ---+ -------+| ?<15 (or dialysis) ? ?| ?Stage five ? | ? Stage five ?+ ---+ ---+ -------+ *Each stage assumes the associated GFR level has been in effect for at least three months. ?Stages 1 to 5, with or without kidney disease, indicate chronic kidney disease. Notes: Determination of stages one and two (with eGFR >59mL/min/1.73 m2) requires estimation of kidney damage for at least three months as defined by structural or functional abnormalities of the kidney, manifested by either:Pathological abnormalities or Markers of kidney damage (including abnormalities in the composition of the blood or urine or abnormalities in imaging tests). Lab Interpretation Abnormal (test code = 90471-0) [facility] with Doobxsqyuebn3016-02-74 09:37:28 Test Item Value Reference Range Interpretation Comments WBC (test code = See_Comment [Automated 2590-2) message] The sy stem which generated this result transmitted reference range : 4.20 - 10.70 10*3/?L. The reference range was not used to interpret this result as normal/abnormal . RBC (test code = See_Comment L [Automated 269-8) message] The sy stem which generated this result transmitted reference range : 4.26 - 5.52 10*6/?L. The reference range was not used to interpret this result as normal/abnormal . HGB (test code = 11.3 g/dL 12.2-16.4 L 718-7) HCT (test code = 36.0 % 38.4-49.3 L 4544-3) MCV (test code = 84.9 fL 81.7-95.6 787-2) MCH (test code = 26.7 pg 26.1-32.7 785-6) MCHC (test code = 31.4 g/dL 31.2-35 786-4) RDW-SD (test code = 44.4 fL 38.5-51.6 67202-7) RDW-CV (test code = 14.4 % 12.1-15.4 788-0) PLT (test code = See_Comment [Automated 867-3) message] The sy stem which generated this result transmitted reference range : 150 - 328 10*3/ ?L. The reference r adama was not used to interpret this result as normal/abnormal . MPV (test code = 11.8 fL 9.8-13 71290-2) NRBC/100 WBC (test See_Comment [Automat ed code = 4406432290) message] The system which generated this result transmitted reference range : 0.0 - 10.0 /100 WBCs. The refer ence range was not u sed to interpret th is result as normal/abnormal . NRBC x10^3 (test code See_Comment [Auto mated = 8557775951) message] The s ystem which generated this result transmitted reference range : 10*3/?L. The reference range was not used to interpret this result as normal/abnormal . GRAN MAT (NEUT) % 74.7 % (test code = 770-8) IMM GRAN % (test code 0.60 % = 4254107761) LYMPH % (test code = 11.4 % 736-9) MONO % (test code = 9.6 % 5905-5) EOS % (test code = 2.8 % 713-8) BASO % (test code = 0.9 % 706-2) GRAN MAT x10^3(ANC) 7.11 10*3/uL 1.99-6.95 H (test code = 2766954711) IMM GRAN x10^3 (test 0.06 10*3/uL 0-0.06 code = 2323421402) LYMPH x10^3 (test code 1.09 10*3/uL 1.09-3.23 = 731-0) MONO x10^3 (test code 0.92 10*3/uL 0.36-1.02 = 742-7) EOS x10^3 (test code = 0.27 10*3/uL 0.06-0.53 711-2) BASO x10^3 (test code 0.09 10*3/uL 0.01-0.09 = 704-7) Lab Interpretation Abnormal (test code = 58744-6) [facility] with Kclpgkmswhsh4320-84-52 09:37:28 Test Item Value Reference Range Interpretation Comments WBC (test code = See_Comment [Automated 6690-2) message] The sy stem which generated this result transmitted reference range : 4.20 - 10.70 10*3/?L. The reference range was not used to interpret this result as normal/abnormal . RBC (test code = See_Comment L [Automated 789-8) message] The sy stem which generated this result transmitted reference range : 4.26 - 5.52 10*6/?L. The reference range was not used to interpret this result as normal/abnormal . HGB (test code = 11.3 g/dL 12.2-16.4 L 718-7) HCT (test code = 36.0 % 38.4-49.3 L 4544-3) MCV (test code = 84.9 fL 81.7-95.6 787-2) MCH (test code = 26.7 pg 26.1-32.7 785-6) MCHC (test code = 31.4 g/dL 31.2-35.0 786-4) RDW-SD (test code = 44.4 fL 38.5-51.6 00884-5) RDW-CV (test code = 14.4 % 12.1-15.4 788-0) PLT (test code = See_Comment [Automated 777-3) message] The sy stem which generated this result transmitted reference range : 150 - 328 10*3/ ?L. The reference r adama was not used to interpret this result as normal/abnormal . MPV (test code = 11.8 fL 9.8-13.0 50774-3) NRBC/100 WBC (test See_Comment [Automat ed code = 2776021498) message] The system which generated this result transmitted reference range : 0.0 - 10.0 /100 WBCs. The refer ence range was not u sed to interpret th is result as normal/abnormal . NRBC x10^3 (test code See_Comment [Auto mated = 8598890156) message] The s ystem which generated this result transmitted reference range : 10*3/?L. The reference range was not used to interpret this result as normal/abnormal . GRAN MAT (NEUT) % 74.7 % (test code = 770-8) IMM GRAN % (test code 0.60 % = 8371924873) LYMPH % (test code = 11.4 % 736-9) MONO % (test code = 9.6 % 5905-5) EOS % (test code = 2.8 % 713-8) BASO % (test code = 0.9 % 706-2) GRAN MAT x10^3(ANC) 7.11 10*3/uL 1.99-6.95 H (test code = 9753256045) IMM GRAN x10^3 (test 0.06 10*3/uL 0.00-0.06 code = 5744728228) LYMPH x10^3 (test code 1.09 10*3/uL 1.09-3.23 = 731-0) MONO x10^3 (test code 0.92 10*3/uL 0.36-1.02 = 742-7) EOS x10^3 (test code = 0.27 10*3/uL 0.06-0.53 711-2) BASO x10^3 (test code 0.09 10*3/uL 0.01-0.09 = 704-7) Lab Interpretation Abnormal (test code = 25328-4) [facility] with Udozyivaklji7731-30-33 09:37:28 Test Item Value Reference Range Interpretation Comments WBC (test code = See_Comment [Automated 6690-2) message] The sy stem which generated this result transmitted reference range : 4.20 - 10.70 10*3/?L. The reference range was not used to interpret this result as normal/abnormal . RBC (test code = See_Comment L [Automated 299-8) message] The sy stem which generated this result transmitted reference range : 4.26 - 5.52 10*6/?L. The reference range was not used to interpret this result as normal/abnormal . HGB (test code = 11.3 g/dL 12.2-16.4 L 718-7) HCT (test code = 36.0 % 38.4-49.3 L 4544-3) MCV (test code = 84.9 fL 81.7-95.6 787-2) MCH (test code = 26.7 pg 26.1-32.7 785-6) MCHC (test code = 31.4 g/dL 31.2-35.0 786-4) RDW-SD (test code = 44.4 fL 38.5-51.6 02592-6) RDW-CV (test code = 14.4 % 12.1-15.4 788-0) PLT (test code = See_Comment [Automated 777-3) message] The sy stem which generated this result transmitted reference range : 150 - 328 10*3/ ?L. The reference r adama was not used to interpret this result as normal/abnormal . MPV (test code = 11.8 fL 9.8-13.0 83599-0) NRBC/100 WBC (test See_Comment [Automat ed code = 7054792292) message] The system which generated this result transmitted reference range : 0.0 - 10.0 /100 WBCs. The refer ence range was not u sed to interpret th is result as normal/abnormal . NRBC x10^3 (test code See_Comment [Auto mated = 6071434564) message] The s ystem which generated this result transmitted reference range : 10*3/?L. The reference range was not used to interpret this result as normal/abnormal . GRAN MAT (NEUT) % 74.7 % (test code = 770-8) IMM GRAN % (test code 0.60 % = 4946361063) LYMPH % (test code = 11.4 % 736-9) MONO % (test code = 9.6 % 5905-5) EOS % (test code = 2.8 % 713-8) BASO % (test code = 0.9 % 706-2) GRAN MAT x10^3(ANC) 7.11 10*3/uL 1.99-6.95 H (test code = 4787690951) IMM GRAN x10^3 (test 0.06 10*3/uL 0.00-0.06 code = 5415556750) LYMPH x10^3 (test code 1.09 10*3/uL 1.09-3.23 = 731-0) MONO x10^3 (test code 0.92 10*3/uL 0.36-1.02 = 742-7) EOS x10^3 (test code = 0.27 10*3/uL 0.06-0.53 711-2) BASO x10^3 (test code 0.09 10*3/uL 0.01-0.09 = 704-7) Lab Interpretation Abnormal (test code = 93569-3) [facility] with Uqbgoacgiqba6941-57-96 09:37:28 Test Item Value Reference Range Interpretation Comments WBC (test code = See_Comment [Automated 6690-2) message] The sy stem which generated this result transmitted reference range : 4.20 - 10.70 10*3/?L. The reference range was not used to interpret this result as normal/abnormal . RBC (test code = See_Comment L [Automated 789-8) message] The sy stem which generated this result transmitted reference range : 4.26 - 5.52 10*6/?L. The reference range was not used to interpret this result as normal/abnormal . HGB (test code = 11.3 g/dL 12.2-16.4 L 718-7) HCT (test code = 36.0 % 38.4-49.3 L 4544-3) MCV (test code = 84.9 fL 81.7-95.6 787-2) MCH (test code = 26.7 pg 26.1-32.7 785-6) MCHC (test code = 31.4 g/dL 31.2-35.0 786-4) RDW-SD (test code = 44.4 fL 38.5-51.6 16875-6) RDW-CV (test code = 14.4 % 12.1-15.4 788-0) PLT (test code = See_Comment [Automated 777-3) message] The sy stem which generated this result transmitted reference range : 150 - 328 10*3/ ?L. The reference r adama was not used to interpret this result as normal/abnormal . MPV (test code = 11.8 fL 9.8-13.0 80290-0) NRBC/100 WBC (test See_Comment [Automat ed code = 2130580821) message] The system which generated this result transmitted reference range : 0.0 - 10.0 /100 WBCs. The refer ence range was not u sed to interpret th is result as normal/abnormal . NRBC x10^3 (test code See_Comment [Auto mated = 0778037812) message] The s [employer] which generated this result transmitted reference range : 10*3/?L. The reference range was not used to interpret this result as normal/abnormal . GRAN MAT (NEUT) % 74.7 % (test code = 770-8) IMM GRAN % (test code 0.60 % = 5689050819) LYMPH % (test code = 11.4 % 736-9) MONO % (test code = 9.6 % 5905-5) EOS % (test code = 2.8 % 713-8) BASO % (test code = 0.9 % 706-2) GRAN MAT x10^3(ANC) 7.11 10*3/uL 1.99-6.95 H (test code = 6383828029) IMM GRAN x10^3 (test 0.06 10*3/uL 0.00-0.06 code = 6802506348) LYMPH x10^3 (test code 1.09 10*3/uL 1.09-3.23 = 731-0) MONO x10^3 (test code 0.92 10*3/uL 0.36-1.02 = 742-7) EOS x10^3 (test code = 0.27 10*3/uL 0.06-0.53 711-2) BASO x10^3 (test code 0.09 10*3/uL 0.01-0.09 = 704-7) Lab Interpretation Abnormal (test code = 31411-2) [facility] GLUCOSE (AUTOMATED)2022-04-05 03:05:57 Test Item Value Reference Range Interpretation Comments POCT GLU (test code = 0073586889) 167 mg/dL 70-110 H Lab Interpretation (test code = Abnormal 92559-5) [facility] GLUCOSE (AUTOMATED)2022-04-05 03:05:57 Test Item Value Reference Range Interpretation Comments POCT GLU (test code = 0001254877) 167 mg/dL 70-110 H Lab Interpretation (test code = Abnormal 80145-8) [facility] GLUCOSE (AUTOMATED)2022-04-05 03:05:57 Test Item Value Reference Range Interpretation Comments POCT GLU (test code = 6689822829) 167 mg/dL 70-110 H Lab Interpretation (test code = Abnormal 07935-4) [facility]:05:57 Test Item Value Reference Range Interpretation Comments POCT GLU (test code = 5251397626) 167 mg/dL 70-110 H Lab Interpretation (test code = Abnormal 72385-8) [facility]2022-04-05 00:32:31 Test Item Value Reference Range Interpretation Comments HGB A1C (test code = 6.4 % 4-5.7 H 4548-4) MARINO (test code = MARINO) Reference RangesNormal: <5.7%Prediabetes: 5.7 - 6.4%Diabetes: > 6.5% Lab Interpretation (test Abnormal code = 27259-3) [facility]2022-04-05 00:32:31 Test Item Value Reference Range Interpretation Comments HGB A1C (test code = 6.4 % 4.0-5.7 H 4548-4) MARINO (test code = MARINO) Reference RangesNormal: <5.7%Prediabetes: 5.7 - 6.4%Diabetes: > 6.5% Lab Interpretation (test Abnormal code = 43267-5) [facility]2022-04-05 00:32:31 Test Item Value Reference Range Interpretation Comments HGB A1C (test code = 6.4 % 4.0-5.7 H 4548-4) MARINO (test code = MARINO) Reference RangesNormal: <5.7%Prediabetes: 5.7 - 6.4%Diabetes: > 6.5% Lab Interpretation (test Abnormal code = 86492-9) [facility]2022-04-05 00:32:31 Test Item Value Reference Range Interpretation Comments HGB A1C (test code = 6.4 % 4.0-5.7 H 4548-4) MARINO (test code = MARINO) Reference RangesNormal: <5.7%Prediabetes: 5.7 - 6.4%Diabetes: > 6.5% Lab Interpretation (test Abnormal code = 73963-2) [facility] (Total Cholesterol, Triglycerides, HDL) - Rdruaam2953-53-22 00:07:29 Test Item Value Reference Range Interpretation Comments CHOL (test code = 109 mg/dL 120-200 L 5555580968) HDL (test code = 44 mg/dL See_Comment [Automated message] 1868124749) The system [employer] generated this result transmit rudolph reference range : >=40. The refer ence range was not u sed to interpret th is result as normal/abnormal . HDLC RATIO (test code = See_Comment [Au tomated message] 9340153157) The system [employer] generated this result transmit rudolph reference range : <=5.0. The refe rence range was not u sed to interpret th is result as normal/abnormal . TRIG (test code = 94 mg/dL 30-170 6651090859) LDL CHOL (test code = 46 mg/dL See_Comment [Auto mated message] 92323-2) The system [employer] generated this result transmit rudolph reference range : <=160. The refe rence range was not u sed to interpret th is result as normal/abnormal . VLDL (test code = 19 mg/dL 5-60 6431946792) Lab Interpretation (test Abnormal code = 86968-2) [facility] Dbkrg6764-47-44 00:07:29 Test Item Value Reference Range Interpretation Comments MAGNESIUM (test code = 2115826372) 2.1 mg/dL 1.7-2.4 Lab Interpretation (test code = Normal 95751-1) [facility] (Total Cholesterol, Triglycerides, HDL) - Pwxtprr0896-58-55 00:07:29 Test Item Value Reference Range Interpretation Comments CHOL (test code = 109 mg/dL 120-200 L 8681383805) HDL (test code = 44 mg/dL See_Comment [Automated message] 3176637404) The system [employer] generated this result transmit rudolph reference range : >=40. The refer ence range was not u sed to interpret th is result as normal/abnormal . HDLC RATIO (test code = See_Comment [Au tomated message] 4301603188) The system [employer] generated this result transmit rudolph reference range : <=5.0. The refe rence range was not u sed to interpret th is result as normal/abnormal . TRIG (test code = 94 mg/dL 30-170 4665300233) LDL CHOL (test code = 46 mg/dL See_Comment [Auto mated message] 17067-9) The system [employer] generated this result transmit rudolph reference range : <=160. The refe rence range was not u sed to interpret th is result as normal/abnormal . VLDL (test code = 19 mg/dL 5-60 5298779987) Lab Interpretation (test Abnormal code = 31480-4) [facility] Uxhae3194-10-32 00:07:29 Test Item Value Reference Range Interpretation Comments MAGNESIUM (test code = 5336873999) 2.1 mg/dL 1.7-2.4 Lab Interpretation (test code = Normal 98260-5) [facility] (Total Cholesterol, Triglycerides, HDL) - Tqlujet3044-04-62 00:07:29 Test Item Value Reference Range Interpretation Comments CHOL (test code = 109 mg/dL 120-200 L 6676712760) HDL (test code = 44 mg/dL See_Comment [Automated message] 3366115320) The system [employer] generated this result transmit rudolph reference range : >=40. The refer ence range was not u sed to interpret th is result as normal/abnormal . HDLC RATIO (test code = See_Comment [Au tomated message] 8784785051) The system [employer] generated this result transmit rudolph reference range : <=5.0. The refe rence range was not u sed to interpret th is result as normal/abnormal . TRIG (test code = 94 mg/dL 30-170 3652991860) LDL CHOL (test code = 46 mg/dL See_Comment [Auto mated message] 01197-2) The system [employer] generated this result transmit rudolph reference range : <=160. The refe rence range was not u sed to interpret th is result as normal/abnormal . VLDL (test code = 19 mg/dL 5-60 3942386924) Lab Interpretation (test Abnormal code = 21663-1) [facility] Vtrix5941-32-13 00:07:29 Test Item Value Reference Range Interpretation Comments MAGNESIUM (test code = 3225470338) 2.1 mg/dL 1.7-2.4 Lab Interpretation (test code = Normal 59629-3) [facility] (Total Cholesterol, Triglycerides, HDL) - Rhprpww0999-59-56 00:07:29 Test Item Value Reference Range Interpretation Comments CHOL (test code = 109 mg/dL 120-200 L 8591357565) HDL (test code = 44 mg/dL See_Comment [Automated message] 7034912787) The system [employer] generated this result transmit rudolph reference range : >=40. The refer ence range was not u sed to interpret th is result as normal/abnormal . HDLC RATIO (test code = See_Comment [Au tomated message] 6253601561) The system [employer] generated this result transmit rudolph reference range : <=5.0. The refe rence range was not u sed to interpret th is result as normal/abnormal . TRIG (test code = 94 mg/dL 30-170 9603558106) LDL CHOL (test code = 46 mg/dL See_Comment [Auto mated message] 26040-6) The system [employer] generated this result transmit rudolph reference range : <=160. The refe rence range was not u sed to interpret th is result as normal/abnormal . VLDL (test code = 19 mg/dL 5-60 3439103691) Lab Interpretation (test Abnormal code = 46850-2) [facility] Iapyd9471-94-11 00:07:29 Test Item Value Reference Range Interpretation Comments MAGNESIUM (test code = 8310155296) 2.1 mg/dL 1.7-2.4 Lab Interpretation (test code = Normal 90907-2) [facility] Ztwoq9746-68-91 00:07:09 Test Item Value Reference Range Interpretation Comments PHOSPHORUS (test code = 5095406142) 5.4 mg/dL 2.5-5 H Lab Interpretation (test code = Abnormal 79944-7) [facility] Cfsrm5788-21-42 00:07:09 Test Item Value Reference Range Interpretation Comments PHOSPHORUS (test code = 3062509856) 5.4 mg/dL 2.5-5.0 H Lab Interpretation (test code = Abnormal 09626-8) [facility] Zeevp7313-09-04 00:07:09 Test Item Value Reference Range Interpretation Comments PHOSPHORUS (test code = 9927211536) 5.4 mg/dL 2.5-5.0 H Lab Interpretation (test code = Abnormal 66434-4) [facility] Lckse7204-76-27 00:07:09 Test Item Value Reference Range Interpretation Comments PHOSPHORUS (test code = 3133161423) 5.4 mg/dL 2.5-5.0 H Lab Interpretation (test code = Abnormal 01356-3) [facility] [id number] 18:10:11 Test Item Value Reference Range Interpretation Comments ESR (test code = See_Comment H [Automated message] 39659-0) The system [employer] generated this result transmitted ref erence range: 0 - 10 m m/HR. The reference r adama was not used to interpret this result as normal/abnor mal. Lab Interpretation (test Abnormal code = 91709-9) [facility] [id number] 18:10:11 Test Item Value Reference Range Interpretation Comments ESR (test code = See_Comment H [Automated message] 26525-1) The system [employer] generated this result transmitted ref erence range: 0 - 10 m m/HR. The reference r adama was not used to interpret this result as normal/abnor mal. Lab Interpretation (test Abnormal code = 75998-8) [facility] [id number] 18:10:11 Test Item Value Reference Range Interpretation Comments ESR (test code = See_Comment H [Automated message] 32664-8) The system [employer] generated this result transmitted ref erence range: 0 - 10 m m/HR. The reference r adama was not used to interpret this result as normal/abnor mal. Lab Interpretation (test Abnormal code = 94732-3) [facility] [id number] 18:10:11 Test Item Value Reference Range Interpretation Comments ESR (test code = See_Comment H [Automated message] 28353-0) The system [employer] generated this result transmitted ref erence range: 0 - 10 m m/HR. The reference r adama was not used to interpret this result as normal/abnor mal. Lab Interpretation (test Abnormal code = 34652-3) [facility]. METABOLIC PANEL ([id number])2022-04-04 17:44:51 Test Item Value Reference Range Interpretation Comments NA (test code = 137 mmol/L 135-145 3101533123) K (test code = 4.6 mmol/L 3.5-5 3199681579) CL (test code = 92 mmol/L 98-108 L 3428990275) CO2 TOTAL (test code = 29 mmol/L 23-31 0391694898) AGAP (test code = 2-16 4840493549) BUN (test code = 37 mg/dL 7-23 H 8604449616) GLUCOSE (test code = 95 mg/dL 70-110 6783171183) CREATININE (test code = 7.67 mg/dL 0.6-1.25 H 9705909213) TOTAL BILI (test code = 0.5 mg/dL 0.1-1.6 1829770654) CALCIUM (test code = 9.2 mg/dL 8.6-10.6 9472913365) T PROTEIN (test code = 7.1 g/dL 6.3-8.2 8471959624) ALBUMIN (test code = 4.0 g/dL 3.5-5 6047084799) ALK PHOS (test code = 67 U/L 34-122 6390311976) ALTv (test code = 15 U/L 5-50 1742-6) AST(SGOT) (test code = 21 U/L 13-40 5109151441) eGFR (test code = mL/min/1.73m2 0964002631) MARINO (test code = MARINO) Association of Glomerular Filtration Rate (GFR) and Staging of Kidney Disease* + --+ --+ ------+| GFR (mL/min/1.73 m2) ?| With Kidney Damage ?| ?Without Kidney Damage+ --------+ --------+ +| ?>90 ?| ?Stage one ?| ? Normal ?+ ---+ ---+ -------+| ?60-89 ?| ?Stage two ?| ? Decreased GFR ? + --+ --+ ------+| ?30-59 ?| ?Stage three ?| ? Stage three ? + --+ --+ ------+| ?15-29 ?| ?Stage four ? | ? Stage four ?+ ---+ ---+ -------+| ?<15 (or dialysis) ? ?| ?Stage five ? | ? Stage five ?+ ---+ ---+ -------+ *Each stage assumes the associated GFR level has been in effect for at least three months. ?Stages 1 to 5, with or without kidney disease, indicate chronic kidney disease. Notes: Determination of stages one and two (with eGFR >59mL/min/1.73 m2) requires estimation of kidney damage for at least three months as defined by structural or functional abnormalities of the kidney, manifested by either:Pathological abnormalities or Markers of kidney damage (including abnormalities in the composition of the blood or urine or abnormalities in imaging tests). Lab Interpretation Abnormal (test code = 82319-4) [facility]. METABOLIC PANEL ([id number])2022-04-04 17:44:51 Test Item Value Reference Range Interpretation Comments NA (test code = 137 mmol/L 135-145 1475321068) K (test code = 4.6 mmol/L 3.5-5.0 7355385697) CL (test code = 92 mmol/L 98-108 L 7137319216) CO2 TOTAL (test code = 29 mmol/L 23-31 9435373914) AGAP (test code = 2-16 9967075712) BUN (test code = 37 mg/dL 7-23 H 9957605308) GLUCOSE (test code = 95 mg/dL 70-110 0883252062) CREATININE (test code = 7.67 mg/dL 0.60-1.25 H 3846218991) TOTAL BILI (test code = 0.5 mg/dL 0.1-1.2 3887763654) CALCIUM (test code = 9.2 mg/dL 8.6-10.6 7739622426) T PROTEIN (test code = 7.1 g/dL 6.3-8.2 7272838990) ALBUMIN (test code = 4.0 g/dL 3.5-5.0 0983268124) ALK PHOS (test code = 67 U/L 34-122 9461696907) ALTv (test code = 15 U/L 5-50 1742-6) AST(SGOT) (test code = 21 U/L 13-40 1000435111) eGFR (test code = mL/min/1.73m2 5507015302) MARINO (test code = MARINO) Association of Glomerular Filtration Rate (GFR) and Staging of Kidney Disease* + --+ --+ ------+| GFR (mL/min/1.73 m2) ?| With Kidney Damage ?| ?Without Kidney Damage+ --------+ --------+ +| ?>90 ?| ?Stage one ?| ? Normal ?+ ---+ ---+ -------+| ?60-89 ?| ?Stage two ?| ? Decreased GFR ? + --+ --+ ------+| ?30-59 ?| ?Stage three ?| ? Stage three ? + --+ --+ ------+| ?15-29 ?| ?Stage four ? | ? Stage four ?+ ---+ ---+ -------+| ?<15 (or dialysis) ? ?| ?Stage five ? | ? Stage five ?+ ---+ ---+ -------+ *Each stage assumes the associated GFR level has been in effect for at least three months. ?Stages 1 to 5, with or without kidney disease, indicate chronic kidney disease. Notes: Determination of stages one and two (with eGFR >59mL/min/1.73 m2) requires estimation of kidney damage for at least three months as defined by structural or functional abnormalities of the kidney, manifested by either:Pathological abnormalities or Markers of kidney damage (including abnormalities in the composition of the blood or urine or abnormalities in imaging tests). Lab Interpretation Abnormal (test code = 11710-3) [facility]. METABOLIC PANEL ([id number])2022-04-04 17:44:51 Test Item Value Reference Range Interpretation Comments NA (test code = 137 mmol/L 135-145 5300764464) K (test code = 4.6 mmol/L 3.5-5.0 1489110807) CL (test code = 92 mmol/L 98-108 L 8361793921) CO2 TOTAL (test code = 29 mmol/L 23-31 4100663877) AGAP (test code = 2-16 9804763721) BUN (test code = 37 mg/dL 7-23 H 5842140121) GLUCOSE (test code = 95 mg/dL 70-110 1830132436) CREATININE (test code = 7.67 mg/dL 0.60-1.25 H 3342247337) TOTAL BILI (test code = 0.5 mg/dL 0.1-1.9 9275897821) CALCIUM (test code = 9.2 mg/dL 8.6-10.6 4182437014) T PROTEIN (test code = 7.1 g/dL 6.3-8.2 1306032951) ALBUMIN (test code = 4.0 g/dL 3.5-5.0 0969637041) ALK PHOS (test code = 67 U/L 34-122 0703843093) ALTv (test code = 15 U/L 5-50 1742-6) AST(SGOT) (test code = 21 U/L 13-40 0174724206) eGFR (test code = mL/min/1.73m2 2261352453) MARINO (test code = MARINO) Association of Glomerular Filtration Rate (GFR) and Staging of Kidney Disease* + --+ --+ ------+| GFR (mL/min/1.73 m2) ?| With Kidney Damage ?| ?Without Kidney Damage+ --------+ --------+ +| ?>90 ?| ?Stage one ?| ? Normal ?+ ---+ ---+ -------+| ?60-89 ?| ?Stage two ?| ? Decreased GFR ? + --+ --+ ------+| ?30-59 ?| ?Stage three ?| ? Stage three ? + --+ --+ ------+| ?15-29 ?| ?Stage four ? | ? Stage four ?+ ---+ ---+ -------+| ?<15 (or dialysis) ? ?| ?Stage five ? | ? Stage five ?+ ---+ ---+ -------+ *Each stage assumes the associated GFR level has been in effect for at least three months. ?Stages 1 to 5, with or without kidney disease, indicate chronic kidney disease. Notes: Determination of stages one and two (with eGFR >59mL/min/1.73 m2) requires estimation of kidney damage for at least three months as defined by structural or functional abnormalities of the kidney, manifested by either:Pathological abnormalities or Markers of kidney damage (including abnormalities in the composition of the blood or urine or abnormalities in imaging tests). Lab Interpretation Abnormal (test code = 09843-2) [facility] ([id number])[facility]22-[facility]-04 17:44:51 Test Item Value Reference Range Interpretation Comments NA (test code = 137 mmol/L 135-145 4490390976) K (test code = 4.6 mmol/L 3.5-5.0 1265380023) CL (test code = 92 mmol/L 98-108 L 6501719360) CO2 TOTAL (test code = 29 mmol/L 23-31 7625815685) AGAP (test code = 2-16 4436920007) BUN (test code = 37 mg/dL 7-23 H 0636231885) GLUCOSE (test code = 95 mg/dL 70-110 4267965623) CREATININE (test code = 7.67 mg/dL 0.60-1.25 H 7114970673) TOTAL BILI (test code = 0.5 mg/dL 0.1-1.3 5082521049) CALCIUM (test code = 9.2 mg/dL 8.6-10.6 8163772542) T PROTEIN (test code = 7.1 g/dL 6.3-8.2 0097546695) ALBUMIN (test code = 4.0 g/dL 3.5-5.0 3524950849) ALK PHOS (test code = 67 U/L 34-122 4140465028) ALTv (test code = 15 U/L 5-50 1742-6) AST(SGOT) (test code = 21 U/L 13-40 6075175402) eGFR (test code = mL/min/1.73m2 8307868452) MARINO (test code = MARINO) Association of Glomerular Filtration Rate (GFR) and Staging of Kidney Disease* + --+ --+ ------+| GFR (mL/min/1.73 m2) ?| With Kidney Damage ?| ?Without Kidney Damage+ --------+ --------+ +| ?>90 ?| ?Stage one ?| ? Normal ?+ ---+ ---+ -------+| ?60-89 ?| ?Stage two ?| ? Decreased GFR ? + --+ --+ ------+| ?30-59 ?| ?Stage three ?| ? Stage three ? + --+ --+ ------+| ?15-29 ?| ?Stage four ? | ? Stage four ?+ ---+ ---+ -------+| ?<15 (or dialysis) ? ?| ?Stage five ? | ? Stage five ?+ ---+ ---+ -------+ *Each stage assumes the associated GFR level has been in effect for at least three months. ?Stages 1 to 5, with or without kidney disease, indicate chronic kidney disease. Notes: Determination of stages one and two (with eGFR >59mL/min/1.73 m2) requires estimation of kidney damage for at least three months as defined by structural or functional abnormalities of the kidney, manifested by either:Pathological abnormalities or Markers of kidney damage (including abnormalities in the composition of the blood or urine or abnormalities in imaging tests). Lab Interpretation Abnormal (test code = 59508-8) [facility] WITH [id number] 17:33:28 Test Item Value Reference Range Interpretation Comments WBC (test code = See_Comment H [Automated 4990-2) message] The sy stem which generated this result transmitted reference range : 4.20 - 10.70 10*3/?L. The reference range was not used to interpret this result as normal/abnormal . RBC (test code = See_Comment L [Automated 259-8) message] The sy stem which generated this result transmitted reference range : 4.26 - 5.52 10*6/?L. The reference range was not used to interpret this result as normal/abnormal . HGB (test code = 11.1 g/dL 12.2-16.4 L 718-7) HCT (test code = 36.1 % 38.4-49.3 L 4544-3) MCV (test code = 86.8 fL 81.7-95.6 787-2) MCH (test code = 26.7 pg 26.1-32.7 785-6) MCHC (test code = 30.7 g/dL 31.2-35 L 786-4) RDW-SD (test code = 45.8 fL 38.5-51.6 91310-2) RDW-CV (test code = 14.6 % 12.1-15.4 788-0) PLT (test code = See_Comment [Automated 777-3) message] The sy stem which generated this result transmitted reference range : 150 - 328 10*3/ ?L. The reference r adama was not used to interpret this result as normal/abnormal . MPV (test code = 12.6 fL 9.8-13 02519-8) NRBC/100 WBC (test See_Comment [Automat ed code = 3149859928) message] The system which generated this result transmitted reference range : 0.0 - 10.0 /100 WBCs. The refer ence range was not u sed to interpret th is result as normal/abnormal . NRBC x10^3 (test code See_Comment [Auto mated = 2289283915) message] The s ystem which generated this result transmitted reference range : 10*3/?L. The reference range was not used to interpret this result as normal/abnormal . GRAN MAT (NEUT) % 78.0 % (test code = 770-8) IMM GRAN % (test code 0.50 % = 4459800036) LYMPH % (test code = 10.0 % 736-9) MONO % (test code = 8.8 % 5905-5) EOS % (test code = 1.9 % 713-8) BASO % (test code = 0.8 % 706-2) GRAN MAT x10^3(ANC) 8.83 10*3/uL 1.99-6.95 H (test code = 9395576645) IMM GRAN x10^3 (test 0.06 10*3/uL 0-0.06 code = 6317730614) LYMPH x10^3 (test code 1.13 10*3/uL 1.09-3.23 = 731-0) MONO x10^3 (test code 0.99 10*3/uL 0.36-1.02 = 742-7) EOS x10^3 (test code = 0.21 10*3/uL 0.06-0.53 711-2) BASO x10^3 (test code 0.09 10*3/uL 0.01-0.09 = 704-7) Lab Interpretation Abnormal (test code = 30544-8) [facility] WITH [id number] 17:33:28 Test Item Value Reference Range Interpretation Comments WBC (test code = See_Comment H [Automated 6690-2) message] The sy stem which generated this result transmitted reference range : 4.20 - 10.70 10*3/?L. The reference range was not used to interpret this result as normal/abnormal . RBC (test code = See_Comment L [Automated 789-8) message] The sy stem which generated this result transmitted reference range : 4.26 - 5.52 10*6/?L. The reference range was not used to interpret this result as normal/abnormal . HGB (test code = 11.1 g/dL 12.2-16.4 L 718-7) HCT (test code = 36.1 % 38.4-49.3 L 4544-3) MCV (test code = 86.8 fL 81.7-95.6 787-2) MCH (test code = 26.7 pg 26.1-32.7 785-6) MCHC (test code = 30.7 g/dL 31.2-35.0 L 786-4) RDW-SD (test code = 45.8 fL 38.5-51.6 31320-9) RDW-CV (test code = 14.6 % 12.1-15.4 788-0) PLT (test code = See_Comment [Automated 777-3) message] The sy stem which generated this result transmitted reference range : 150 - 328 10*3/ ?L. The reference r adama was not used to interpret this result as normal/abnormal . MPV (test code = 12.6 fL 9.8-13.0 50740-5) NRBC/100 WBC (test See_Comment [Automat ed code = 1989713302) message] The system which generated this result transmitted reference range : 0.0 - 10.0 /100 WBCs. The refer ence range was not u sed to interpret th is result as normal/abnormal . NRBC x10^3 (test code See_Comment [Auto mated = 7761780563) message] The s ystem which generated this result transmitted reference range : 10*3/?L. The reference range was not used to interpret this result as normal/abnormal . GRAN MAT (NEUT) % 78.0 % (test code = 770-8) IMM GRAN % (test code 0.50 % = 5591668307) LYMPH % (test code = 10.0 % 736-9) MONO % (test code = 8.8 % 5905-5) EOS % (test code = 1.9 % 713-8) BASO % (test code = 0.8 % 706-2) GRAN MAT x10^3(ANC) 8.83 10*3/uL 1.99-6.95 H (test code = 2462332703) IMM GRAN x10^3 (test 0.06 10*3/uL 0.00-0.06 code = 9028037681) LYMPH x10^3 (test code 1.13 10*3/uL 1.09-3.23 = 731-0) MONO x10^3 (test code 0.99 10*3/uL 0.36-1.02 = 742-7) EOS x10^3 (test code = 0.21 10*3/uL 0.06-0.53 711-2) BASO x10^3 (test code 0.09 10*3/uL 0.01-0.09 = 704-7) Lab Interpretation Abnormal (test code = 55264-3) [facility] WITH [id number] 17:33:28 Test Item Value Reference Range Interpretation Comments WBC (test code = See_Comment H [Automated 6690-2) message] The sy stem which generated this result transmitted reference range : 4.20 - 10.70 10*3/?L. The reference range was not used to interpret this result as normal/abnormal . RBC (test code = See_Comment L [Automated 819-8) message] The sy stem which generated this result transmitted reference range : 4.26 - 5.52 10*6/?L. The reference range was not used to interpret this result as normal/abnormal . HGB (test code = 11.1 g/dL 12.2-16.4 L 718-7) HCT (test code = 36.1 % 38.4-49.3 L 4544-3) MCV (test code = 86.8 fL 81.7-95.6 787-2) MCH (test code = 26.7 pg 26.1-32.7 785-6) MCHC (test code = 30.7 g/dL 31.2-35.0 L 786-4) RDW-SD (test code = 45.8 fL 38.5-51.6 06230-4) RDW-CV (test code = 14.6 % 12.1-15.4 788-0) PLT (test code = See_Comment [Automated 777-3) message] The sy stem which generated this result transmitted reference range : 150 - 328 10*3/ ?L. The reference r adama was not used to interpret this result as normal/abnormal . MPV (test code = 12.6 fL 9.8-13.0 27185-3) NRBC/100 WBC (test See_Comment [Automat ed code = 6191444766) message] The system which generated this result transmitted reference range : 0.0 - 10.0 /100 WBCs. The refer ence range was not u sed to interpret th is result as normal/abnormal . NRBC x10^3 (test code See_Comment [Auto mated = 1999728512) message] The s ystem which generated this result transmitted reference range : 10*3/?L. The reference range was not used to interpret this result as normal/abnormal . GRAN MAT (NEUT) % 78.0 % (test code = 770-8) IMM GRAN % (test code 0.50 % = 1423335530) LYMPH % (test code = 10.0 % 736-9) MONO % (test code = 8.8 % 5905-5) EOS % (test code = 1.9 % 713-8) BASO % (test code = 0.8 % 706-2) GRAN MAT x10^3(ANC) 8.83 10*3/uL 1.99-6.95 H (test code = 9823038815) IMM GRAN x10^3 (test 0.06 10*3/uL 0.00-0.06 code = 6521437912) LYMPH x10^3 (test code 1.13 10*3/uL 1.09-3.23 = 731-0) MONO x10^3 (test code 0.99 10*3/uL 0.36-1.02 = 742-7) EOS x10^3 (test code = 0.21 10*3/uL 0.06-0.53 711-2) BASO x10^3 (test code 0.09 10*3/uL 0.01-0.09 = 704-7) Lab Interpretation Abnormal (test code = 92703-3) [facility] WITH [id number] 17:33:28 Test Item Value Reference Range Interpretation Comments WBC (test code = See_Comment H [Automated 6690-2) message] The sy stem which generated this result transmitted reference range : 4.20 - 10.70 10*3/?L. The reference range was not used to interpret this result as normal/abnormal . RBC (test code = See_Comment L [Automated 789-8) message] The sy stem which generated this result transmitted reference range : 4.26 - 5.52 10*6/?L. The reference range was not used to interpret this result as normal/abnormal . HGB (test code = 11.1 g/dL 12.2-16.4 L 718-7) HCT (test code = 36.1 % 38.4-49.3 L 4544-3) MCV (test code = 86.8 fL 81.7-95.6 787-2) MCH (test code = 26.7 pg 26.1-32.7 785-6) MCHC (test code = 30.7 g/dL 31.2-35.0 L 786-4) RDW-SD (test code = 45.8 fL 38.5-51.6 11936-1) RDW-CV (test code = 14.6 % 12.1-15.4 788-0) PLT (test code = See_Comment [Automated 777-3) message] The sy stem which generated this result transmitted reference range : 150 - 328 10*3/ ?L. The reference r adama was not used to interpret this result as normal/abnormal . MPV (test code = 12.6 fL 9.8-13.0 88334-3) NRBC/100 WBC (test See_Comment [Automat ed code = 9775976801) message] The system which generated this result transmitted reference range : 0.0 - 10.0 /100 WBCs. The refer ence range was not u sed to interpret th is result as normal/abnormal . NRBC x10^3 (test code See_Comment [Auto mated = 0989938954) message] The s [employer] which generated this result transmitted reference range : 10*3/?L. The reference range was not used to interpret this result as normal/abnormal . GRAN MAT (NEUT) % 78.0 % (test code = 770-8) IMM GRAN % (test code 0.50 % = 6730734805) LYMPH % (test code = 10.0 % 736-9) MONO % (test code = 8.8 % 5905-5) EOS % (test code = 1.9 % 713-8) BASO % (test code = 0.8 % 706-2) GRAN MAT x10^3(ANC) 8.83 10*3/uL 1.99-6.95 H (test code = 9318805387) IMM GRAN x10^3 (test 0.06 10*3/uL 0.00-0.06 code = 7224247156) LYMPH x10^3 (test code 1.13 10*3/uL 1.09-3.23 = 731-0) MONO x10^3 (test code 0.99 10*3/uL 0.36-1.02 = 742-7) EOS x10^3 (test code = 0.21 10*3/uL 0.06-0.53 711-2) BASO x10^3 (test code 0.09 10*3/uL 0.01-0.09 = 704-7) Lab Interpretation Abnormal (test code = 19574-3) [facility] ([id number][facility]-29 22:45:49 Test Item Value Reference Range Interpretation Comments NA (test code = 138 mmol/L 135-145 0163167436) K (test code = 3.9 mmol/L 3.5-5 3639153911) CL (test code = 94 mmol/L 98-108 L 8937193506) CO2 TOTAL (test code = 34 mmol/L 23-31 H 2665016794) AGAP (test code = 2-16 3364242379) BUN (test code = 18 mg/dL 7-23 2658830973) GLUCOSE (test code = 82 mg/dL 70-110 3491276971) CREATININE (test code = 4.21 mg/dL 0.6-1.25 H 9832427251) TOTAL BILI (test code = 0.6 mg/dL 0.1-1.5 3890946556) CALCIUM (test code = 8.7 mg/dL 8.6-10.6 4629953599) T PROTEIN (test code = 7.6 g/dL 6.3-8.2 0787589168) ALBUMIN (test code = 4.3 g/dL 3.5-5 1163876742) ALK PHOS (test code = 64 U/L 34-122 1235541293) ALTv (test code = 15 U/L 5-50 1742-6) AST(SGOT) (test code = 19 U/L 13-40 1394755373) eGFR (test code = mL/min/1.73m2 8133082370) MARINO (test code = MARINO) Association of Glomerular Filtration Rate (GFR) and Staging of Kidney Disease* + --+ --+ ------+| GFR (mL/min/1.73 m2) ?| With Kidney Damage ?| ?Without Kidney Damage+ --------+ --------+ +| ?>90 ?| ?Stage one ?| ? Normal ?+ ---+ ---+ -------+| ?60-89 ?| ?Stage two ?| ? Decreased GFR ? + --+ --+ ------+| ?30-59 ?| ?Stage three ?| ? Stage three ? + --+ --+ ------+| ?15-29 ?| ?Stage four ? | ? Stage four ?+ ---+ ---+ -------+| ?<15 (or dialysis) ? ?| ?Stage five ? | ? Stage five ?+ ---+ ---+ -------+ *Each stage assumes the associated GFR level has been in effect for at least three months. ?Stages 1 to 5, with or without kidney disease, indicate chronic kidney disease. Notes: Determination of stages one and two (with eGFR >59mL/min/1.73 m2) requires estimation of kidney damage for at least three months as defined by structural or functional abnormalities of the kidney, manifested by either:Pathological abnormalities or Markers of kidney damage (including abnormalities in the composition of the blood or urine or abnormalities in imaging tests). Lab Interpretation Abnormal (test code = 10720-4) [facility] WITH [id number] 22:44:26 Test Item Value Reference Range Interpretation Comments WBC (test code = See_Comment [Automated 6690-2) message] The sy stem which generated this result transmitted reference range : 4.20 - 10.70 10*3/?L. The reference range was not used to interpret this result as normal/abnormal . RBC (test code = See_Comment [Automated 789-8) message] The sy stem which generated this result transmitted reference range : 4.26 - 5.52 10*6/?L. The reference range was not used to interpret this result as normal/abnormal . HGB (test code = 12.0 g/dL 12.2-16.4 L 718-7) HCT (test code = 37.9 % 38.4-49.3 L 4544-3) MCV (test code = 85.7 fL 81.7-95.6 787-2) MCH (test code = 27.1 pg 26.1-32.7 785-6) MCHC (test code = 31.7 g/dL 31.2-35 786-4) RDW-SD (test code = 45.3 fL 38.5-51.6 76340-1) RDW-CV (test code = 14.4 % 12.1-15.4 788-0) PLT (test code = See_Comment [Automated 777-3) message] The sy stem which generated this result transmitted reference range : 150 - 328 10*3/ ?L. The reference r adama was not used to interpret this result as normal/abnormal . MPV (test code = 12.7 fL 9.8-13 51648-8) NRBC/100 WBC (test See_Comment [Automat ed code = 0738652648) message] The system which generated this result transmitted reference range : 0.0 - 10.0 /100 WBCs. The refer ence range was not u sed to interpret th is result as normal/abnormal . NRBC x10^3 (test code See_Comment [Auto mated = 2299818082) message] The s ystem which generated this result transmitted reference range : 10*3/?L. The reference range was not used to interpret this result as normal/abnormal . GRAN MAT (NEUT) % 77.2 % (test code = 770-8) IMM GRAN % (test code 0.20 % = 0752427103) LYMPH % (test code = 10.2 % 736-9) MONO % (test code = 10.8 % 5905-5) EOS % (test code = 1.1 % 713-8) BASO % (test code = 0.5 % 706-2) GRAN MAT x10^3(ANC) 6.20 10*3/uL 1.99-6.95 (test code = 4186693996) IMM GRAN x10^3 (test 0-0.06 code = 8093675440) LYMPH x10^3 (test code 0.82 10*3/uL 1.09-3.23 L = 731-0) MONO x10^3 (test code 0.87 10*3/uL 0.36-1.02 = 742-7) EOS x10^3 (test code = 0.09 10*3/uL 0.06-0.53 711-2) BASO x10^3 (test code 0.04 10*3/uL 0.01-0.09 = 704-7) Lab Interpretation Abnormal (test code = 77797-5) [facility] [id number] 13:28:00 Test Item Value Reference Range Interpretation Comments TOTAL PROTEIN 7.4 gm/dL 6.0-8.3 (BEAKER) (test code = 770) ALBUMIN (BEAKER) 4.3 g/dL 3.5-5.0 (test code = 1145) ALKALINE PHOSPHATASE 102 U/L 40-150 (BEAKER) (test code = 346) BILIRUBIN TOTAL 0.3 mg/dL 0.2-1.2 (BEAKER) (test code = 377) SODIUM (BEAKER) (test 139 meq/L 136-145 code = 381) POTASSIUM (BEAKER) 4.0 meq/L 3.5-5.1 (test code = 379) CHLORIDE (BEAKER) 104 meq/L 98-107 (test code = 382) CO2 (BEAKER) (test 25 meq/L 22-29 code = 355) BLOOD UREA NITROGEN 23 mg/dL 7-21 H (BEAKER) (test code = 354) CREATININE (BEAKER) 4.88 mg/dL 0.57-1.25 H (test code = 358) GLUCOSE RANDOM 136 mg/dL 70-105 H (BEAKER) (test code = 652) CALCIUM (BEAKER) 9.6 mg/dL 8.4-10.2 (test code = 697) AST (SGOT) (BEAKER) 15 U/L 5-34 (test code = 353) ALT (SGPT) (BEAKER) 15 U/L 6-55 (test code = 347) EGFR (BEAKER) (test 15 mL/min/1.73 ESTIMA RUDOLPH GFR IS code = 1092) sq m NOT ACCURATE CREATININE CLEARANCE IN PREDICTING GLOMERULAR FILTRATION RATE . ESTIMATED GFR I S NOT APPLICABLE FOR DIALYSIS PATIEN TS. ALKALINE [id number] 13:23:00 Test Item Value Reference Range Interpretation Comments ALKALINE PHOSPHATASE (BEAKER) (test 102 U/L 40-150 code = 346) CREATINE KINASE (CK)2017-11-18 13:23:00 Test Item Value Reference Range Interpretation Comments CREATINE KINASE TOTAL (BEAKER) (test 56 U/L 29-200 code = 380) LACTATE DEHYDROGENASE (LDH)2017-11-18 13:23:00 Test Item Value Reference Range Interpretation Comments LACTATE DEHYDROGENASE (BEAKER) (test 235 U/L 125-220 H code = 635) [id number] 13:18:00 Test Item Value Reference Range Interpretation Comments PARTIAL THROMBOPLASTIN TIME 35.3 seconds 22.5-36.0 (BEAKER) (test code = 760) PROTHROMBIN [id number] 13:17:00 Test Item Value Reference Range Interpretation Comments PROTIME (BEAKER) (test code = 13.7 seconds 11.7-14.7 759) INR (BEAKER) (test code = 370) 1.1 <=5.9 RECOMMENDED COUMADIN/WARFARIN INR THERAPY RANGESSTANDARD DOSE: 2.0 - 3.0 Includes: PROPHYLAXIS for venous thrombosis, systemic embolization; TREATMENT for venous thrombosis and/or pulmonary embolus.HIGH RISK: Target INR is 2.5-3.5 for patients with mechanical heart valves.[id number] 13:17:00 Test Item Value Reference Range Interpretation Comments FIBRINOGEN LEVEL (BEAKER) (test 467 mg/dl 225-434 H code = 658) CBC W/PLT COUNT & AUTO [id number] 12:54:00 Test Item Value Reference Range Interpretation Comments WHITE BLOOD CELL COUNT (BEAKER) 5.5 K/ L 3.5-10.5 (test code = 775) RED BLOOD CELL COUNT (BEAKER) 3.95 M/ L 4.63-6.08 L (test code = 761) HEMOGLOBIN (BEAKER) (test code = 10.7 GM/DL 13.7-17.5 L 410) HEMATOCRIT (BEAKER) (test code = 36.7 % 40.1-51.0 L 411) MEAN CORPUSCULAR VOLUME (BEAKER) 92.9 fL 79.0-92.2 H (test code = 753) MEAN CORPUSCULAR HEMOGLOBIN 27.1 pg 25.7-32.2 (BEAKER) (test code = 751) MEAN CORPUSCULAR HEMOGLOBIN CONC 29.2 GM/DL 32.3-36.5 L (BEAKER) (test code = 752) RED CELL DISTRIBUTION WIDTH 15.4 % 11.6-14.4 H (BEAKER) (test code = 412) PLATELET COUNT (BEAKER) (test 243 K/CU MM 150-450 code = 756) MEAN PLATELET VOLUME (BEAKER) 11.7 fL 9.4-12.4 (test code = 754) NUCLEATED RED BLOOD CELLS 0 /100 WBC 0-0 (BEAKER) (test code = 413) NEUTROPHILS RELATIVE PERCENT 49 % (BEAKER) (test code = 429) LYMPHOCYTES RELATIVE PERCENT 34 % (BEAKER) (test code = 430) MONOCYTES RELATIVE PERCENT 9 % (BEAKER) (test code = 431) EOSINOPHILS RELATIVE PERCENT 7 % (BEAKER) (test code = 432) BASOPHILS RELATIVE PERCENT 1 % (BEAKER) (test code = 437) NEUTROPHILS ABSOLUTE COUNT 2.67 K/ L 1.78-5.38 (BEAKER) (test code = 670) LYMPHOCYTES ABSOLUTE COUNT 1.84 K/ L 1.32-3.57 (BEAKER) (test code = 414) MONOCYTES ABSOLUTE COUNT (BEAKER) 0.51 K/ L 0.30-0.82 (test code = 415) EOSINOPHILS ABSOLUTE COUNT 0.36 K/ L 0.04-0.54 (BEAKER) (test code = 416) BASOPHILS ABSOLUTE COUNT (BEAKER) 0.06 K/ L 0.01-0.08 (test code = 417) IMMATURE GRANULOCYTES-RELATIVE 0 % 0-1 PERCENT (BEAKER) (test code = 2801) POCT-GLUCOSE [id number] 12:50:00 Test Item Value Reference Range Interpretation Comments POC-GLUCOSE METER 203 mg/dL 70-110 H TESTED AT [facility] 6720 (BEAKER) (test code = [place] 1538) [id number] 08:18:00 Test Item Value Reference Range Interpretation Comments PHOSPHORUS (BEAKER) (test code = 2.1 mg/dL 2.3-4.7 L 604) BASIC METABOLIC [id number] 08:18:00 Test Item Value Reference Range Interpretation Comments SODIUM (BEAKER) 139 meq/L 136-145 (test code = 381) POTASSIUM (BEAKER) 3.7 meq/L 3.5-5.1 (test code = 379) CHLORIDE (BEAKER) 105 meq/L 98-107 (test code = 382) CO2 (BEAKER) (test 26 meq/L 22-29 code = 355) BLOOD UREA NITROGEN 31 mg/dL 7-21 H (BEAKER) (test code = 354) CREATININE (BEAKER) 3.68 mg/dL 0.57-1.25 H (test code = 358) GLUCOSE RANDOM 91 mg/dL 70-105 (BEAKER) (test code = 652) CALCIUM (BEAKER) 8.5 mg/dL 8.4-10.2 (test code = 697) EGFR (BEAKER) (test 20 mL/min/1.73 ESTIMA RUDOLPH GFR IS code = 1092) sq m NOT ACCURATE CREATININE CLEARANCE IN PREDICTING GLOMERULAR FILTRATION RATE . ESTIMATED GFR I S NOT APPLICABLE FOR DIALYSIS PATIEN TS. CBC W/PLT COUNT & AUTO [id number] 08:06:00 Test Item Value Reference Range Interpretation Comments WHITE BLOOD CELL COUNT (BEAKER) 4.7 K/ L 3.5-10.5 (test code = 775) RED BLOOD CELL COUNT (BEAKER) 2.84 M/ L 4.63-6.08 L (test code = 761) HEMOGLOBIN (BEAKER) (test code = 7.8 GM/DL 13.7-17.5 L 410) HEMATOCRIT (BEAKER) (test code = 25.9 % 40.1-51.0 L 411) MEAN CORPUSCULAR VOLUME (BEAKER) 91.2 fL 79.0-92.2 (test code = 753) MEAN CORPUSCULAR HEMOGLOBIN 27.5 pg 25.7-32.2 (BEAKER) (test code = 751) MEAN CORPUSCULAR HEMOGLOBIN CONC 30.1 GM/DL 32.3-36.5 L (BEAKER) (test code = 752) RED CELL DISTRIBUTION WIDTH 14.5 % 11.6-14.4 H (BEAKER) (test code = 412) PLATELET COUNT (BEAKER) (test 180 K/CU MM 150-450 code = 756) MEAN PLATELET VOLUME (BEAKER) 11.7 fL 9.4-12.4 (test code = 754) NUCLEATED RED BLOOD CELLS 0 /100 WBC 0-0 (BEAKER) (test code = 413) NEUTROPHILS RELATIVE PERCENT 47 % (BEAKER) (test code = 429) LYMPHOCYTES RELATIVE PERCENT 36 % (BEAKER) (test code = 430) MONOCYTES RELATIVE PERCENT 12 % (BEAKER) (test code = 431) EOSINOPHILS RELATIVE PERCENT 4 % (BEAKER) (test code = 432) BASOPHILS RELATIVE PERCENT 0 % (BEAKER) (test code = 437) NEUTROPHILS ABSOLUTE COUNT 2.20 K/ L 1.78-5.38 (BEAKER) (test code = 670) LYMPHOCYTES ABSOLUTE COUNT 1.72 K/ L 1.32-3.57 (BEAKER) (test code = 414) MONOCYTES ABSOLUTE COUNT (BEAKER) 0.55 K/ L 0.30-0.82 (test code = 415) EOSINOPHILS ABSOLUTE COUNT 0.21 K/ L 0.04-0.54 (BEAKER) (test code = 416) BASOPHILS ABSOLUTE COUNT (BEAKER) 0.02 K/ L 0.01-0.08 (test code = 417) IMMATURE GRANULOCYTES-RELATIVE 1 % 0-1 PERCENT (BEAKER) (test code = 2801) CBC W/PLT COUNT & AUTO [id number] 07:54:00 Test Item Value Reference Range Interpretation Comments WHITE BLOOD CELL COUNT (BEAKER) 4.2 K/ L 3.5-10.5 (test code = 775) RED BLOOD CELL COUNT (BEAKER) 2.95 M/ L 4.63-6.08 L (test code = 761) HEMOGLOBIN (BEAKER) (test code = 8.0 GM/DL 13.7-17.5 L 410) HEMATOCRIT (BEAKER) (test code = 26.5 % 40.1-51.0 L 411) MEAN CORPUSCULAR VOLUME (BEAKER) 89.8 fL 79.0-92.2 (test code = 753) MEAN CORPUSCULAR HEMOGLOBIN 27.1 pg 25.7-32.2 (BEAKER) (test code = 751) MEAN CORPUSCULAR HEMOGLOBIN CONC 30.2 GM/DL 32.3-36.5 L (BEAKER) (test code = 752) RED CELL DISTRIBUTION WIDTH 14.6 % 11.6-14.4 H (BEAKER) (test code = 412) PLATELET COUNT (BEAKER) (test 179 K/CU MM 150-450 code = 756) MEAN PLATELET VOLUME (BEAKER) 11.3 fL 9.4-12.4 (test code = 754) NUCLEATED RED BLOOD CELLS 0 /100 WBC 0-0 (BEAKER) (test code = 413) NEUTROPHILS RELATIVE PERCENT 52 % (BEAKER) (test code = 429) LYMPHOCYTES RELATIVE PERCENT 35 % (BEAKER) (test code = 430) MONOCYTES RELATIVE PERCENT 7 % (BEAKER) (test code = 431) EOSINOPHILS RELATIVE PERCENT 4 % (BEAKER) (test code = 432) BASOPHILS RELATIVE PERCENT 1 % (BEAKER) (test code = 437) NEUTROPHILS ABSOLUTE COUNT 2.22 K/ L 1.78-5.38 (BEAKER) (test code = 670) LYMPHOCYTES ABSOLUTE COUNT 1.50 K/ L 1.32-3.57 (BEAKER) (test code = 414) MONOCYTES ABSOLUTE COUNT (BEAKER) 0.30 K/ L 0.30-0.82 (test code = 415) EOSINOPHILS ABSOLUTE COUNT 0.17 K/ L 0.04-0.54 (BEAKER) (test code = 416) BASOPHILS ABSOLUTE COUNT (BEAKER) 0.03 K/ L 0.01-0.08 (test code = 417) IMMATURE GRANULOCYTES-RELATIVE 1 % 0-1 PERCENT (BEAKER) (test code = 2801) BASIC METABOLIC [id number] 06:41:00 Test Item Value Reference Range Interpretation Comments SODIUM (BEAKER) 139 meq/L 136-145 (test code = 381) POTASSIUM (BEAKER) 4.0 meq/L 3.5-5.1 (test code = 379) CHLORIDE (BEAKER) 106 meq/L 98-107 (test code = 382) CO2 (BEAKER) (test 25 meq/L 22-29 code = 355) BLOOD UREA NITROGEN 45 mg/dL 7-21 H (BEAKER) (test code = 354) CREATININE (BEAKER) 5.14 mg/dL 0.57-1.25 H (test code = 358) GLUCOSE RANDOM 82 mg/dL 70-105 (BEAKER) (test code = 652) CALCIUM (BEAKER) 8.7 mg/dL 8.4-10.2 (test code = 697) EGFR (BEAKER) (test 14 mL/min/1.73 ESTIMA RUDOLPH GFR IS code = 1092) sq m NOT ACCURATE CREATININE CLEARANCE IN PREDICTING GLOMERULAR FILTRATION RATE . ESTIMATED GFR I S NOT APPLICABLE FOR DIALYSIS PATIEN TS. [id number] 06:37:00 Test Item Value Reference Range Interpretation Comments MAGNESIUM (BEAKER) (test code = 2.4 mg/dL 1.6-2.6 627) POCT-GLUCOSE [id number] 21:17:00 Test Item Value Reference Range Interpretation Comments POC-GLUCOSE METER 147 mg/dL 70-110 H TESTED AT [facility] 6720 (BEAKER) (test code = [place]LA[place]u [facility] 1538) [id number] POCT-GLUCOSE [id number] 16:44:00 Test Item Value Reference Range Interpretation Comments POC-GLUCOSE METER 87 mg/dL 70-110 TESTED AT [facility] 6720 (BEAKER) (test code = [facility] [id number] 1538) POCT-GLUCOSE [id number] 12:41:00 Test Item Value Reference Range Interpretation Comments POC-GLUCOSE METER 176 mg/dL 70-110 H TESTED AT [facility] 6720 (BEAKER) (test code = [facility] 1538) [id number] POCT-GLUCOSE [id number] 07:36:00 Test Item Value Reference Range Interpretation Comments POC-GLUCOSE METER 140 mg/dL 70-110 H TESTED AT [facility] 6720 (BEAKER) (test code = [facility] [place] [facility] 1538) [id number] BASIC METABOLIC [id number] 05:04:00 Test Item Value Reference Range Interpretation Comments SODIUM (BEAKER) 140 meq/L 136-145 (test code = 381) POTASSIUM (BEAKER) 3.8 meq/L 3.5-5.1 (test code = 379) CHLORIDE (BEAKER) 105 meq/L 98-107 (test code = 382) CO2 (BEAKER) (test 25 meq/L 22-29 code = 355) BLOOD UREA NITROGEN 33 mg/dL 7-21 H (BEAKER) (test code = 354) CREATININE (BEAKER) 4.36 mg/dL 0.57-1.25 H (test code = 358) GLUCOSE RANDOM 117 mg/dL 70-105 H (BEAKER) (test code = 652) CALCIUM (BEAKER) 9.0 mg/dL 8.4-10.2 (test code = 697) EGFR (BEAKER) (test 17 mL/min/1.73 ESTIMA RUDOLPH GFR IS code = 1092) sq m NOT ACCURATE CREATININE CLEARANCE IN PREDICTING GLOMERULAR FILTRATION RATE . ESTIMATED GFR I S NOT APPLICABLE FOR DIALYSIS PATIEN TS. [id number] 05:03:00 Test Item Value Reference Range Interpretation Comments MAGNESIUM (BEAKER) (test code = 2.4 mg/dL 1.6-2.6 627) [id number] 22:18:00 Test Item Value Reference Range Interpretation Comments POTASSIUM (BEAKER) (test code = 3.6 meq/L 3.5-5.1 379) POCT-GLUCOSE [id number] 22:07:00 Test Item Value Reference Range Interpretation Comments POC-GLUCOSE METER 104 mg/dL 70-110 TESTED AT [facility] 6720 (BEAKER) (test code = [place]LA[place] [facility] 1538) [id number] POCT-GLUCOSE [id number] 16:59:00 Test Item Value Reference Range Interpretation Comments POC-GLUCOSE METER 130 mg/dL 70-110 H TESTED AT [facility] 6720 [facility] (test code = [facility] 1538) [id number] ALKALINE [id number] 14:14:00 Test Item Value Reference Range Interpretation Comments ALKALINE PHOSPHATASE (BEAKER) (test 40 U/L 40-150 code = 346) PROTEIN, [id number] 14:14:00 Test Item Value Reference Range Interpretation Comments TOTAL PROTEIN (BEAKER) (test code = 6.3 gm/dL 6.0-8.3 770) AST (SGOT)2017-10-27 14:14:00 Test Item Value Reference Range Interpretation Comments AST (SGOT) (BEAKER) (test code = 353) 68 U/L 5-34 H ALT (SGPT)2017-10-27 14:14:00 Test Item Value Reference Range Interpretation Comments ALT (SGPT) (BEAKER) (test code = 347) 90 U/L 6-55 H BILIRUBIN, TOTAL AND [id number] 14:14:00 Test Item Value Reference Range Interpretation Comments BILIRUBIN TOTAL (BEAKER) (test code 0.2 mg/dL 0.2-1.2 = 377) BILIRUBIN DIRECT (BEAKER) (test 0.1 mg/dL 0.1-0.5 code = 706) [id number] 14:14:00 Test Item Value Reference Range Interpretation Comments ALBUMIN (BEAKER) (test code = 1145) 3.4 g/dL 3.5-5.0 L CREATINE KINASE (CK)2017-10-27 14:14:00 Test Item Value Reference Range Interpretation Comments CREATINE KINASE TOTAL (BEAKER) (test 665 U/L 29-200 H code = 380) LACTATE DEHYDROGENASE (LDH)2017-10-27 14:14:00 Test Item Value Reference Range Interpretation Comments LACTATE DEHYDROGENASE (BEAKER) (test 314 U/L 125-220 H code = 635) PROTHROMBIN [id number] 13:54:00 Test Item Value Reference Range Interpretation Comments PROTIME (BEAKER) (test code = 14.6 seconds 11.7-14.7 759) INR (BEAKER) (test code = 370) 1.1 <=5.9 RECOMMENDED COUMADIN/WARFARIN INR THERAPY RANGESSTANDARD DOSE: 2.0 - 3.0 Includes: PROPHYLAXIS for venous thrombosis, systemic embolization; TREATMENT for venous thrombosis and/or pulmonary embolus.HIGH RISK: Target INR is 2.5-3.5 for patients with mechanical heart valves.[id number] 13:54:00 Test Item Value Reference Range Interpretation Comments PARTIAL THROMBOPLASTIN TIME 33.4 seconds 22.5-36.0 (BEAKER) (test code = 760) POCT-GLUCOSE [id number] 12:17:00 Test Item Value Reference Range Interpretation Comments POC-GLUCOSE METER 211 mg/dL 70-110 H TESTED AT [facility] 6720 (BEAKER) (test code = [place] 1538) [id number] POCT-GLUCOSE [id number] 08:22:00 Test Item Value Reference Range Interpretation Comments POC-GLUCOSE METER 221 mg/dL 70-110 H TESTED AT [facility] 6720 (BEAKER) (test code = [place] 1538) [address] BASIC METABOLIC [id number] 07:54:00 Test Item Value Reference Range Interpretation Comments SODIUM (BEAKER) 138 meq/L 136-145 (test code = 381) POTASSIUM (BEAKER) 3.9 meq/L 3.5-5.1 (test code = 379) CHLORIDE (BEAKER) 102 meq/L 98-107 (test code = 382) CO2 (BEAKER) (test 25 meq/L 22-29 code = 355) BLOOD UREA NITROGEN 60 mg/dL 7-21 H (BEAKER) (test code = 354) CREATININE (BEAKER) 6.81 mg/dL 0.57-1.25 H (test code = 358) GLUCOSE RANDOM 177 mg/dL 70-105 H (BEAKER) (test code = 652) CALCIUM (BEAKER) 9.0 mg/dL 8.4-10.2 (test code = 697) EGFR (BEAKER) (test 10 mL/min/1.73 ESTIMA RUDOLPH GFR IS code = 1092) sq m NOT ACCURATE CREATININE CLEARANCE IN PREDICTING GLOMERULAR FILTRATION RATE . ESTIMATED GFR I S NOT APPLICABLE FOR DIALYSIS PATIEN TS. [id number] 07:52:00 Test Item Value Reference Range Interpretation Comments MAGNESIUM (BEAKER) (test code = 2.8 mg/dL 1.6-2.6 H 627) CBC W/PLT COUNT & AUTO [id number] 07:11:00 Test Item Value Reference Range Interpretation Comments WHITE BLOOD CELL COUNT (BEAKER) 6.1 K/ L 3.5-10.5 (test code = 775) RED BLOOD CELL COUNT (BEAKER) 3.04 M/ L 4.63-6.08 L (test code = 761) HEMOGLOBIN (BEAKER) (test code = 8.4 GM/DL 13.7-17.5 L 410) HEMATOCRIT (BEAKER) (test code = 27.4 % 40.1-51.0 L 411) MEAN CORPUSCULAR VOLUME (BEAKER) 90.1 fL 79.0-92.2 (test code = 753) MEAN CORPUSCULAR HEMOGLOBIN 27.6 pg 25.7-32.2 (BEAKER) (test code = 751) MEAN CORPUSCULAR HEMOGLOBIN CONC 30.7 GM/DL 32.3-36.5 L (BEAKER) (test code = 752) RED CELL DISTRIBUTION WIDTH 14.9 % 11.6-14.4 H (BEAKER) (test code = 412) PLATELET COUNT (BEAKER) (test 141 K/CU MM 150-450 L code = 756) MEAN PLATELET VOLUME (BEAKER) 12.1 fL 9.4-12.4 (test code = 754) NUCLEATED RED BLOOD CELLS 0 /100 WBC 0-0 (BEAKER) (test code = 413) NEUTROPHILS RELATIVE PERCENT 64 % (BEAKER) (test code = 429) LYMPHOCYTES RELATIVE PERCENT 21 % (BEAKER) (test code = 430) MONOCYTES RELATIVE PERCENT 11 % (BEAKER) (test code = 431) EOSINOPHILS RELATIVE PERCENT 4 % (BEAKER) (test code = 432) BASOPHILS RELATIVE PERCENT 1 % (BEAKER) (test code = 437) NEUTROPHILS ABSOLUTE COUNT 3.88 K/ L 1.78-5.38 (BEAKER) (test code = 670) LYMPHOCYTES ABSOLUTE COUNT 1.29 K/ L 1.32-3.57 L (BEAKER) (test code = 414) MONOCYTES ABSOLUTE COUNT (BEAKER) 0.65 K/ L 0.30-0.82 (test code = 415) EOSINOPHILS ABSOLUTE COUNT 0.23 K/ L 0.04-0.54 (BEAKER) (test code = 416) BASOPHILS ABSOLUTE COUNT (BEAKER) 0.03 K/ L 0.01-0.08 (test code = 417) IMMATURE GRANULOCYTES-RELATIVE 0 % 0-1 PERCENT (BEAKER) (test code = 2801) POCT-GLUCOSE [id number] 22:32:00 Test Item Value Reference Range Interpretation Comments POC-GLUCOSE METER 130 mg/dL 70-110 H TESTED AT [facility] 6720 (BEAKER) (test code = [place] 1538) [address] POCT-GLUCOSE [id number] 17:40:00 Test Item Value Reference Range Interpretation Comments POC-GLUCOSE METER 72 mg/dL 70-110 TESTED AT [place] [address] ([facility]) (test code = [place]u [facility] [id number] 1538) RAD, CHEST, 1 VIEW, NON [id number] 17:08:00Reason for exam:->sternotomy FINAL REPORT CLINICAL INDICATION: Postop Comparison: 10/25/2017 The cardiomediastinal contours are stable. Central pulmonary vascular prominence and bilateral parenchymal opacities are similar within variation of acquisition technique. Blunting of the costophrenic sulci may reflecttrace effusions or pleural thickening. There is no pneumothorax. A tunneled right IJ dialysis catheter remains in place. Signed: Armando Coker MDReport Verified Date/Time: 10/26/2017 17:08:24 Reading Location: [address] Reading Room POCT- GLUCOSE [id number] 12:37:00 Test Item Value Reference Range Interpretation Comments POC-GLUCOSE METER 215 mg/dL 70-110 H TESTED AT [facility] 67 ([facility]) (test code = [place]u [facility] 1538) [id number] POCT-GLUCOSE [id number] 07:58:00 Test Item Value Reference Range Interpretation Comments POC-GLUCOSE METER 180 mg/dL 70-110 H TESTED AT [place] [address] ([facility]) (test code = [place] Cantu [facility] 1538) [address] BASIC METABOLIC [id number] 06:13:00 Test Item Value Reference Range Interpretation Comments SODIUM (BEAKER) 135 meq/L 136-145 L (test code = 381) POTASSIUM (BEAKER) 3.9 meq/L 3.5-5.1 (test code = 379) CHLORIDE (BEAKER) 102 meq/L 98-107 (test code = 382) CO2 (BEAKER) (test 21 meq/L 22-29 L code = 355) BLOOD UREA NITROGEN 49 mg/dL 7-21 H (BEAKER) (test code = 354) CREATININE (BEAKER) 6.12 mg/dL 0.57-1.25 H (test code = 358) GLUCOSE RANDOM 158 mg/dL 70-105 H (BEAKER) (test code = 652) CALCIUM (BEAKER) 8.5 mg/dL 8.4-10.2 (test code = 697) EGFR (BEAKER) (test 11 mL/min/1.73 ESTIMA RUDOLPH GFR IS code = 1092) sq m NOT ACCURATE CREATININE CLEARANCE IN PREDICTING GLOMERULAR FILTRATION RATE . ESTIMATED GFR I S NOT APPLICABLE FOR DIALYSIS PATIEN TS. CBC W/PLT COUNT & AUTO [id number] 06:02:00 Test Item Value Reference Range Interpretation Comments WHITE BLOOD CELL COUNT (BEAKER) 6.8 K/ L 3.5-10.5 (test code = 775) RED BLOOD CELL COUNT (BEAKER) 3.02 M/ L 4.63-6.08 L (test code = 761) HEMOGLOBIN (BEAKER) (test code = 8.2 GM/DL 13.7-17.5 L 410) HEMATOCRIT (BEAKER) (test code = 27.0 % 40.1-51.0 L 411) MEAN CORPUSCULAR VOLUME (BEAKER) 89.4 fL 79.0-92.2 (test code = 753) MEAN CORPUSCULAR HEMOGLOBIN 27.2 pg 25.7-32.2 (BEAKER) (test code = 751) MEAN CORPUSCULAR HEMOGLOBIN CONC 30.4 GM/DL 32.3-36.5 L (BEAKER) (test code = 752) RED CELL DISTRIBUTION WIDTH 15.4 % 11.6-14.4 H (BEAKER) (test code = 412) PLATELET COUNT (BEAKER) (test 116 K/CU MM 150-450 L code = 756) MEAN PLATELET VOLUME (BEAKER) 12.1 fL 9.4-12.4 (test code = 754) NUCLEATED RED BLOOD CELLS 0 /100 WBC 0-0 (BEAKER) (test code = 413) NEUTROPHILS RELATIVE PERCENT 61 % (BEAKER) (test code = 429) LYMPHOCYTES RELATIVE PERCENT 26 % (BEAKER) (test code = 430) MONOCYTES RELATIVE PERCENT 10 % (BEAKER) (test code = 431) EOSINOPHILS RELATIVE PERCENT 2 % (BEAKER) (test code = 432) BASOPHILS RELATIVE PERCENT 1 % (BEAKER) (test code = 437) NEUTROPHILS ABSOLUTE COUNT 4.13 K/ L 1.78-5.38 (BEAKER) (test code = 670) LYMPHOCYTES ABSOLUTE COUNT 1.75 K/ L 1.32-3.57 (BEAKER) (test code = 414) MONOCYTES ABSOLUTE COUNT (BEAKER) 0.65 K/ L 0.30-0.82 (test code = 415) EOSINOPHILS ABSOLUTE COUNT 0.16 K/ L 0.04-0.54 (BEAKER) (test code = 416) BASOPHILS ABSOLUTE COUNT (BEAKER) 0.04 K/ L 0.01-0.08 (test code = 417) IMMATURE GRANULOCYTES-RELATIVE 0 % 0-1 PERCENT (BEAKER) (test code = 2801) POCT-GLUCOSE [id number] 20:48:00 Test Item Value Reference Range Interpretation Comments POC-GLUCOSE METER 222 mg/dL 70-110 H TESTED AT [place] [address] ([facility]) (test code = BANNERVLADISLAV Cantu [facility] 1538) [id number] POCT-GLUCOSE [id number] 18:04:00 Test Item Value Reference Range Interpretation Comments POC-GLUCOSE METER 188 mg/dL 70-110 H TESTED AT [place] [address] ([facility]) (test code = [facility] [place] [facility] 1538) [id number] POCT-GLUCOSE [id number] 13:33:00 Test Item Value Reference Range Interpretation Comments POC-GLUCOSE METER 196 mg/dL 70-110 H TESTED AT [place] [address] ([facility]) (test code = [facility] [place] [facility] 1538) [address] BASIC METABOLIC [id number] 12:01:00 Test Item Value Reference Range Interpretation Comments SODIUM (BEAKER) 137 meq/L 136-145 (test code = 381) POTASSIUM (BEAKER) 4.3 meq/L 3.5-5.1 (test code = 379) CHLORIDE (BEAKER) 102 meq/L 98-107 (test code = 382) CO2 (BEAKER) (test 22 meq/L 22-29 code = 355) BLOOD UREA NITROGEN 35 mg/dL 7-21 H (BEAKER) (test code = 354) CREATININE (BEAKER) 4.85 mg/dL 0.57-1.25 H (test code = 358) GLUCOSE RANDOM 169 mg/dL 70-105 H (BEAKER) (test code = 652) CALCIUM (BEAKER) 8.3 mg/dL 8.4-10.2 L (test code = 697) EGFR (BEAKER) (test 15 mL/min/1.73 ESTIMA RUDOLPH GFR IS code = 1092) sq m NOT ACCURATE CREATININE CLEARANCE IN PREDICTING GLOMERULAR FILTRATION RATE . ESTIMATED GFR I S NOT APPLICABLE FOR DIALYSIS PATIEN TS. POCT-GLUCOSE [id number] 11:59:00 Test Item Value Reference Range Interpretation Comments POC-GLUCOSE METER 194 mg/dL 70-110 H TESTED AT [facility] 6720 (BEAKER) (test code = [place] 1538) [address] CBC W/PLT COUNT & AUTO [id number] 11:39:00 Test Item Value Reference Range Interpretation Comments WHITE BLOOD CELL COUNT (BEAKER) 6.8 K/ L 3.5-10.5 (test code = 775) RED BLOOD CELL COUNT (BEAKER) 3.28 M/ L 4.63-6.08 L (test code = 761) HEMOGLOBIN (BEAKER) (test code = 8.9 GM/DL 13.7-17.5 L 410) HEMATOCRIT (BEAKER) (test code = 31.0 % 40.1-51.0 L 411) MEAN CORPUSCULAR VOLUME (BEAKER) 94.5 fL 79.0-92.2 H (test code = 753) MEAN CORPUSCULAR HEMOGLOBIN 27.1 pg 25.7-32.2 (BEAKER) (test code = 751) MEAN CORPUSCULAR HEMOGLOBIN CONC 28.7 GM/DL 32.3-36.5 L (BEAKER) (test code = 752) RED CELL DISTRIBUTION WIDTH 16.1 % 11.6-14.4 H (BEAKER) (test code = 412) PLATELET COUNT (BEAKER) (test 110 K/CU MM 150-450 L code = 756) MEAN PLATELET VOLUME (BEAKER) 12.4 fL 9.4-12.4 (test code = 754) NUCLEATED RED BLOOD CELLS 0 /100 WBC 0-0 (BEAKER) (test code = 413) NEUTROPHILS RELATIVE PERCENT 71 % (BEAKER) (test code = 429) LYMPHOCYTES RELATIVE PERCENT 19 % (BEAKER) (test code = 430) MONOCYTES RELATIVE PERCENT 9 % (BEAKER) (test code = 431) EOSINOPHILS RELATIVE PERCENT 1 % (BEAKER) (test code = 432) BASOPHILS RELATIVE PERCENT 0 % (BEAKER) (test code = 437) NEUTROPHILS ABSOLUTE COUNT 4.78 K/ L 1.78-5.38 (BEAKER) (test code = 670) LYMPHOCYTES ABSOLUTE COUNT 1.26 K/ L 1.32-3.57 L (BEAKER) (test code = 414) MONOCYTES ABSOLUTE COUNT (BEAKER) 0.62 K/ L 0.30-0.82 (test code = 415) EOSINOPHILS ABSOLUTE COUNT 0.04 K/ L 0.04-0.54 (BEAKER) (test code = 416) BASOPHILS ABSOLUTE COUNT (BEAKER) 0.03 K/ L 0.01-0.08 (test code = 417) IMMATURE GRANULOCYTES-RELATIVE 0 % 0-1 PERCENT (BEAKER) (test code = 2801) RAD, CHEST, 1 VIEW, NON [id number] 09:03:00Reason for exam:->S/p CABGShould this be performed [...] postoperative complication. Signed: Bri Lara MDReport Verified Date/Time: 10/25/2017 09:03:01 Reading Location: [address] Ortho Consult Reading Room Electronically signed by: BRI LARA M.D. on 018 09:03 AMPOCT-GLUCOSE [id number] 20:54:00 Test Item Value Reference Range Interpretation Comments POC-GLUCOSE METER 183 mg/dL 70-110 H TESTED AT [facility] 6720 (RAULAKER) (test code = [place] 1538) [address] HEPATITIS B SURFACE [id number] 16:24:00 Test Item Value Reference Range Interpretation Comments HEPATITIS B SURFACE ANTIGEN (2) Nonreactive Nonreactive (BEAKER) (test code = 2585) For chronic HD patients, draw HBsAg with each admission then every 30 days.RAD, CHEST, 1 VIEW, NON [id number] 13:31:00Reason for exam:->air leak from chest tubes. placed to gravity drainageShould this be performed at the bedside?->YesFINAL REPORT TECHNIQUE: Frontal chest radiograph dated 10/24/2017. CLINICAL HISTORY: Air leak from chest tubes COMPARISON STUDY: Chest radiograph performed earlier the same day IMPRE SSION:Life support tubes and lines are unchanged in position. There is stable bibasilar atelectasis.No pleural effusion or pneumothorax. Cardiomediastinal silhouette is stable in size. No pulmonary edema. Midline sternotomy wires are intact and well aligned. No fracture. Signed: Joseph Coreyeport Verified Date/Time: 10/24/2017 13:31:11 Reading Location: [facility] Radiology Reading Room GLOBIN AND [id number] 09:47:00 Test Item Value Reference Range Interpretation Comments HEMOGLOBIN ([facility]) (test code = 9.9 GM/DL 13.7-17.5 L 410) H[facility]ATOCRIT [facility] [facility]) (test code = 31.7 % 40.1-51.0 L 411) POCT-GLUCOSE [id number] 09:38:00 Test Item Value Reference Range Interpretation Comments POC-GLUCOSE METER 200 mg/dL 70-110 H TESTED AT [facility] 67 ([facility]) (test code = [facility] 1538) [address] POCT-GLUCOSE [id number] 04:46:00 Test Item Value Reference Range Interpretation Comments POC-GLUCOSE METER 129 mg/dL 70-110 H TESTED AT [place] [address] ([facility]) (test code = [facility] 1538) [address] POCT-GLUCOSE [id number] 04:46:00 Test Item Value Reference Range Interpretation Comments POC-GLUCOSE METER 172 mg/dL 70-110 H TESTED AT [place] [address] ([facility]) (test code = [facility] 1538) [address] BASIC METABOLIC [id number] 04:01:00 Test Item Value Reference Range Interpretation Comments SODIUM (BEAKER) 139 meq/L 136-145 (test code = 381) POTASSIUM (BEAKER) 5.6 meq/L 3.5-5.1 H (test code = 379) CHLORIDE (BEAKER) 109 meq/L 98-107 H (test code = 382) CO2 (BEAKER) (test 19 meq/L 22-29 L code = 355) BLOOD UREA NITROGEN 54 mg/dL 7-21 H (BEAKER) (test code = 354) CREATININE (BEAKER) 5.66 mg/dL 0.57-1.25 H (test code = 358) GLUCOSE RANDOM 164 mg/dL 70-105 H (BEAKER) (test code = 652) CALCIUM (BEAKER) 9.2 mg/dL 8.4-10.2 (test code = 697) EGFR (BEAKER) (test 12 mL/min/1.73 ESTIMA RUDOLPH GFR IS code = 1092) sq m NOT ACCURATE CREATININE CLEARANCE IN PREDICTING GLOMERULAR FILTRATION RATE . ESTIMATED GFR I S NOT APPLICABLE FOR DIALYSIS PATIEN TS. [id number] 03:58:00 Test Item Value Reference Range Interpretation Comments PHOSPHORUS (BEAKER) (test code = 5.3 mg/dL 2.3-4.7 H 604) [id number] 03:58:00 Test Item Value Reference Range Interpretation Comments MAGNESIUM (BEAKER) (test code = 3.2 mg/dL 1.6-2.6 H 627) CALCIUM, [id number] 03:56:00 Test Item Value Reference Range Interpretation Comments CALCIUM IONIZED (BEAKER) (test 1.17 mmol/L 1.12-1.27 code = 698) PH, BLOOD (BEAKER) (test code = 7.29 1810) RAD, CHEST, 1 VIEW, NON [id number] 03:56:00while patient is intubated or has chest tubes.Reason for exam:->chest tubesShould this be performed at the bedside?->YesFINAL REPORT CLINICAL INDICATION: Support lines. Comparison: 10/23/2017 The cardiomediastinal contours are stable. The lung volumes are low after extubation but similar to previous.Central pulmonary vascular prominence and bilateral parenchymal opacities are grossly stable. There is no pneumothorax. Remaining support lines are stable. Signed: Armando Coker MDReport Verified Date/Time: 10/24/2017 03:56:43 Reading Location: [address] Reading Room LACTIC ACID, ARTERIAL, WHOLE [id number] 03:54:00 Test Item Value Reference Range Interpretation Comments LACTATE BLOOD ARTERIAL (2) 0.7 mmol/L 0.5-2.2 (BEAKER) (test code = 2874) Effective 10/18/2015: Units/Reference Range ChangeNew: 0.5-2.2 mmol/L Previous: 5- 20 mg/dLOXYGEN SATURATION, [id number] 03:53:00 Test Item Value Reference Range Interpretation Comments O2 SATURATION (MEASURED) (BEAKER) 72.5 % (test code = 1455) CBC W/PLT COUNT & AUTO [id number] 03:44:00 Test Item Value Reference Range Interpretation Comments WHITE BLOOD CELL COUNT (BEAKER) 9.5 K/ L 3.5-10.5 (test code = 775) RED BLOOD CELL COUNT (BEAKER) 3.55 M/ L 4.63-6.08 L (test code = 761) HEMOGLOBIN (BEAKER) (test code = 9.7 GM/DL 13.7-17.5 L 410) HEMATOCRIT (BEAKER) (test code = 31.2 % 40.1-51.0 L 411) MEAN CORPUSCULAR VOLUME (BEAKER) 87.9 fL 79.0-92.2 (test code = 753) MEAN CORPUSCULAR HEMOGLOBIN 27.3 pg 25.7-32.2 (BEAKER) (test code = 751) MEAN CORPUSCULAR HEMOGLOBIN CONC 31.1 GM/DL 32.3-36.5 L (BEAKER) (test code = 752) RED CELL DISTRIBUTION WIDTH 16.3 % 11.6-14.4 H (BEAKER) (test code = 412) PLATELET COUNT (BEAKER) (test 118 K/CU MM 150-450 L code = 756) MEAN PLATELET VOLUME (BEAKER) 11.8 fL 9.4-12.4 (test code = 754) NUCLEATED RED BLOOD CELLS 0 /100 WBC 0-0 (BEAKER) (test code = 413) NEUTROPHILS RELATIVE PERCENT 79 % (BEAKER) (test code = 429) LYMPHOCYTES RELATIVE PERCENT 12 % (BEAKER) (test code = 430) MONOCYTES RELATIVE PERCENT 8 % (BEAKER) (test code = 431) EOSINOPHILS RELATIVE PERCENT 0 % (BEAKER) (test code = 432) BASOPHILS RELATIVE PERCENT 0 % (BEAKER) (test code = 437) NEUTROPHILS ABSOLUTE COUNT 7.55 K/ L 1.78-5.38 H (BEAKER) (test code = 670) LYMPHOCYTES ABSOLUTE COUNT 1.10 K/ L 1.32-3.57 L (BEAKER) (test code = 414) MONOCYTES ABSOLUTE COUNT (BEAKER) 0.80 K/ L 0.30-0.82 (test code = 415) EOSINOPHILS ABSOLUTE COUNT 0.01 K/ L 0.04-0.54 L (BEAKER) (test code = 416) BASOPHILS ABSOLUTE COUNT (BEAKER) 0.03 K/ L 0.01-0.08 (test code = 417) IMMATURE GRANULOCYTES-RELATIVE 0 % 0-1 PERCENT (BEAKER) (test code = 2801) POCT-GLUCOSE [id number] 22:48:00 Test Item Value Reference Range Interpretation Comments POC-GLUCOSE METER 162 mg/dL 70-110 H TESTED AT [place] [address] ([facility]) (test code = [facility] 1538) [address] POCT-GLUCOSE [id number] 22:48:00 Test Item Value Reference Range Interpretation Comments POC-GLUCOSE METER 163 mg/dL 70-110 H TESTED AT [place] [address] ([facility]) (test code = [facility] 1538) [address] POCT-GLUCOSE [id number] 22:48:00 Test Item Value Reference Range Interpretation Comments POC-GLUCOSE METER 113 mg/dL 70-110 H TESTED AT [place] [address] ([facility]) (test code = [facility] 1538) [address] POCT-GLUCOSE [id number] 22:48:00 Test Item Value Reference Range Interpretation Comments POC-GLUCOSE METER 83 mg/dL 70-110 TESTED AT [place] [address] ([facility]) (test code = [facility] [address] 1538) POCT-GLUCOSE [id number] 22:48:00 Test Item Value Reference Range Interpretation Comments POC-GLUCOSE METER 114 mg/dL 70-110 H TESTED AT [place] [address] ([facility]) (test code = [facility] 1538) [address] BLOOD GAS, [id number] 17:05:00 Test Item Value Reference Range Interpretation Comments PH ARTERIAL (BEAKER) (test code = 7.43 7.35-7.45 383) PCO2 ARTERIAL (BEAKER) (test code 32 mmHg 35-45 L = 384) PO2 ARTERIAL (BEAKER) (test code 184 mmHg 80-90 H = 385) O2 SATURATION ARTERIAL (BEAKER) 99.3 % 96.0-97.0 H (test code = 386) HCO3 ARTERIAL (BEAKER) (test code 21 mmol/L 21-29 = 388) BASE EXCESS ARTERIAL (BEAKER) -3.0 mmol/L -2.0-3.0 L (test code = 387) PATIENT TEMPERATURE (BEAKER) 36.7 C (test code = 1818) FIO2 (BEAKER) (test code = 1819) 40.0 % POCT-GLUCOSE [id number] 15:59:00 Test Item Value Reference Range Interpretation Comments POC-GLUCOSE METER 197 mg/dL 70-110 H TEST[facility] AT [place] [address] [facility] (test code = [place] [facility] 1538) [address] POCT-GLUCOSE [id number] 15:59:00 Test Item Value Reference Range Interpretation Comments POC-GLUCOSE METER 218 mg/dL 70-110 H TESTED AT [place] [address] ([facility]) (test code = [place] [facility] 1538) [address] BLOOD GAS, [id number] 14:11:00 Test Item Value Reference Range Interpretation Comments PH ARTERIAL (BEAKER) (test code = 7.39 7.35-7.45 383) PCO2 ARTERIAL (BEAKER) (test code 31 mmHg 35-45 L = 384) PO2 ARTERIAL (BEAKER) (test code 164 mmHg 80-90 H = 385) O2 SATURATION ARTERIAL (BEAKER) 99.1 % 96.0-97.0 H (test code = 386) HCO3 ARTERIAL (BEAKER) (test code 18 mmol/L 21-29 L = 388) BASE EXCESS ARTERIAL (BEAKER) -5.7 mmol/L -2.0-3.0 L (test code = 387) PATIENT TEMPERATURE (BEAKER) 36.7 C (test code = 1818) FIO2 (BEAKER) (test code = 1819) 40.0 % GLUCOSE-STAT [id number] 14:11:00 Test Item Value Reference Range Interpretation Comments GLUCOSE RANDOM (BEAKER) (test code 235 mg/dL 70-110 H = 652) HEMOGLOBIN [id number] 14:09:00 Test Item Value Reference Range Interpretation Comments HEMOGLOBIN A1C (BEAKER) (test code = 7.0 % 4.3-6.1 H 368) BASIC METABOLIC [id number] 12:49:00 Test Item Value Reference Range Interpretation Comments SODIUM (BEAKER) 138 meq/L 136-145 (test code = 381) POTASSIUM (BEAKER) 4.1 meq/L 3.5-5.1 (test code = 379) CHLORIDE (BEAKER) 109 meq/L 98-107 H (test code = 382) CO2 (BEAKER) (test 17 meq/L 22-29 L code = 355) BLOOD UREA NITROGEN 46 mg/dL 7-21 H (BEAKER) (test code = 354) CREATININE (BEAKER) 4.91 mg/dL 0.57-1.25 H (test code = 358) GLUCOSE RANDOM 282 mg/dL 70-105 H (BEAKER) (test code = 652) CALCIUM (BEAKER) 9.5 mg/dL 8.4-10.2 (test code = 697) EGFR (BEAKER) (test 14 mL/min/1.73 ESTIMA RUDOLPH GFR IS code = 1092) sq m NOT ACCURATE CREATININE CLEARANCE IN PREDICTING GLOMERULAR FILTRATION RATE . ESTIMATED GFR I S NOT APPLICABLE FOR DIALYSIS PATIEN TS. [id number] 12:41:00 Test Item Value Reference Range Interpretation Comments POTASSIUM (BEAKER) (test code = 4.1 meq/L 3.5-5.1 379) [id number] 12:41:00 Test Item Value Reference Range Interpretation Comments MAGNESIUM (BEAKER) (test code = 3.2 mg/dL 1.6-2.6 H 627) [id number] 12:41:00 Test Item Value Reference Range Interpretation Comments PHOSPHORUS (BEAKER) (test code = 4.1 mg/dL 2.3-4.7 604) [id number] 12:41:00 Test Item Value Reference Range Interpretation Comments SODIUM (BEAKER) (test code = 381) 138 meq/L 136-145 [id number] 12:41:00 Test Item Value Reference Range Interpretation Comments GLUCOSE RANDOM (BEAKER) (test code 282 mg/dL 70-105 H = 652) RAD, CHEST, 1 VIEW, NON [id number] 12:40:00Reason for exam:->s/p cardiac surgeryShould this be performed at the bedside?->YesFINAL REPORT Chest one view AP 10/23/2017 12:40 PM CLINICAL INDICATION: s/p cardiac surgery COMPARISON: 10/21/2017 IMPRESSION: Support hardware is in satisfactory radiographic position status post median sternotomy. Cardiomediastinal contours are stable. There is pulsation artifact versus small volume pneumomediastinum. The central pulmonary vasculature is not engorged. There are streaky foci of atelectasis bilaterally. No pneumothorax is evident. Signed: Vira Nunez Verified Date/Time: 10/23/2017 12:40:37 Reading Location: [facility] Radiology Reading Room LACTIC ACID, ARTERIAL, WHOLE [id number] 12:37:00 Test Item Value Reference Range Interpretation Comments LACTATE BLOOD ARTERIAL (2) 1.3 mmol/L 0.5-2.2 (BEAKER) (test code = 2874) Effective 10/18/2015: Units/Reference Range ChangeNew: 0.5-2.2 mmol/L Previous: 5- 20 mg/dLPROTHROMBIN [id number] 12:36:00 Test Item Value Reference Range Interpretation Comments PROTIME (BEAKER) (test code = 16.1 seconds 11.7-14.7 H 759) INR (BEAKER) (test code = 370) 1.3 <=5.9 RECOMMENDED COUMADIN/WARFARIN INR THERAPY RANGESSTANDARD DOSE: 2.0 - 3.0 Includes: PROPHYLAXIS for venous thrombosis, systemic embolization; TREATMENT for venous thrombosis and/or pulmonary embolus.HIGH RISK: Target INR is 2.5-3.5 for patients with mechanical heart valves.[id number] 12:36:00 Test Item Value Reference Range Interpretation Comments FIBRINOGEN LEVEL (BEAKER) (test 206 mg/dl 225-434 L code = 658) [id number] 12:36:00 Test Item Value Reference Range Interpretation Comments PARTIAL THROMBOPLASTIN TIME 32.0 seconds 22.5-36.0 (BEAKER) (test code = 760) CALCIUM, [id number] 12:25:00 Test Item Value Reference Range Interpretation Comments CALCIUM IONIZED (BEAKER) (test 1.28 mmol/L 1.12-1.27 H code = 698) PH, BLOOD (BEAKER) (test code = 7.33 1810) OXYGEN SATURATION, [id number] 12:25:00 Test Item Value Reference Range Interpretation Comments O2 SATURATION (MEASURED) (BEAKER) 85.6 % (test code = 1455) From distal port of IJ central venous catheterBLOOD GAS, [id number] 12:25:00 Test Item Value Reference Range Interpretation Comments PH ARTERIAL (BEAKER) (test code = 7.33 7.35-7.45 L 383) PCO2 ARTERIAL (BEAKER) (test code 37 mmHg 35-45 = 384) PO2 ARTERIAL (BEAKER) (test code 218 mmHg 80-90 H = 385) O2 SATURATION ARTERIAL (BEAKER) 99.4 % 96.0-97.0 H (test code = 386) HCO3 ARTERIAL (BEAKER) (test code 19 mmol/L 21-29 L = 388) BASE EXCESS ARTERIAL (BEAKER) -6.1 mmol/L -2.0-3.0 L (test code = 387) PATIENT TEMPERATURE (BEAKER) 36.5 C (test code = 1818) FIO2 (BEAKER) (test code = 1819) 60.0 % GLUCOSE-STAT [id number] 12:25:00 Test Item Value Reference Range Interpretation Comments GLUCOSE RANDOM (BEAKER) (test code 243 mg/dL 70-110 H = 652) HGB/HCT (H&H) - STAT [id number] 12:25:00 Test Item Value Reference Range Interpretation Comments HEMOGLOBIN (BEAKER) (test code = 10.9 g/dL 13.0-16.8 L 410) HEMATOCRIT (BEAKER) (test code = 32.0 % 40.0-50.0 L 411) CBC W/PLT COUNT & AUTO [id number] 12:24:00 Test Item Value Reference Range Interpretation Comments WHITE BLOOD CELL COUNT (BEAKER) 14.7 K/ L 3.5-10.5 H (test code = 775) RED BLOOD CELL COUNT (BEAKER) 3.74 M/ L 4.63-6.08 L (test code = 761) HEMOGLOBIN (BEAKER) (test code = 10.3 GM/DL 13.7-17.5 L 410) HEMATOCRIT (BEAKER) (test code = 33.2 % 40.1-51.0 L 411) MEAN CORPUSCULAR VOLUME (BEAKER) 88.8 fL 79.0-92.2 (test code = 753) MEAN CORPUSCULAR HEMOGLOBIN 27.5 pg 25.7-32.2 (BEAKER) (test code = 751) MEAN CORPUSCULAR HEMOGLOBIN CONC 31.0 GM/DL 32.3-36.5 L (BEAKER) (test code = 752) RED CELL DISTRIBUTION WIDTH 15.8 % 11.6-14.4 H (BEAKER) (test code = 412) PLATELET COUNT (BEAKER) (test 138 K/CU MM 150-450 L code = 756) MEAN PLATELET VOLUME (BEAKER) 11.5 fL 9.4-12.4 (test code = 754) NUCLEATED RED BLOOD CELLS 0 /100 WBC 0-0 (BEAKER) (test code = 413) NEUTROPHILS RELATIVE PERCENT 63 % (BEAKER) (test code = 429) LYMPHOCYTES RELATIVE PERCENT 28 % (BEAKER) (test code = 430) MONOCYTES RELATIVE PERCENT 6 % (BEAKER) (test code = 431) EOSINOPHILS RELATIVE PERCENT 1 % (BEAKER) (test code = 432) BASOPHILS RELATIVE PERCENT 1 % (BEAKER) (test code = 437) NEUTROPHILS ABSOLUTE COUNT 9.30 K/ L 1.78-5.38 H (BEAKER) (test code = 670) LYMPHOCYTES ABSOLUTE COUNT 4.14 K/ L 1.32-3.57 H (BEAKER) (test code = 414) MONOCYTES ABSOLUTE COUNT (BEAKER) 0.87 K/ L 0.30-0.82 H (test code = 415) EOSINOPHILS ABSOLUTE COUNT 0.21 K/ L 0.04-0.54 (BEAKER) (test code = 416) BASOPHILS ABSOLUTE COUNT (BEAKER) 0.07 K/ L 0.01-0.08 (test code = 417) IMMATURE GRANULOCYTES-RELATIVE 1 % 0-1 PERCENT (BEAKER) (test code = 2801) POTASSIUM-STAT [id number] 12:24:00 Test Item Value Reference Range Interpretation Comments POTASSIUM (BEAKER) (test code = 3.9 meq/L 3.6-5.5 379) [id number] 11:30:00 Test Item Value Reference Range Interpretation Comments ACTIVATED CLOTTING TIME 114 sec TEST ED AT [place] [address] ([facility]) (test code = [place] [address]) [id number] 11:30:00 Test Item Value Reference Range Interpretation Comments ACTIVATED CLOTTING TIME 472 sec TEST ED AT [place] [address] ([facility]) (test code = [place] [address]) [id number] [id number] 11:30:00 Test Item Value Reference Range Interpretation Comments ACTIVATED CLOTTING TIME 428 sec TEST ED AT [place] [address] ([facility]) (test code = [place] [address]) [address] [id number] 11:30:00 Test Item Value Reference Range Interpretation Comments ACTIVATED CLOTTING TIME 411 sec TEST ED AT [place] [address] [facility] (test code = [place] [address]) [id number] 11:30:00 Test Item Value Reference Range Interpretation Comments ACTIVATED CLOTTING TIME 153 sec TEST ED AT [place] [address] ([facility]) (test code = [place] [address]) [id number] THROMBOELASTOGRAPH ([id number] 11:07:00 Test Item Value Reference Range Interpretation Comments TEG ACTIVATED CLOTTING TIME 7.2 minutes 4.0-7.0 H (BEAKER) (test code = 1407) TEG FIBRINOGEN ACTIVITY (BEAKER) 64.0 degrees 61.0-73.0 (test code = 1408) TEG PLT. AGGREGATION (BEAKER) 39.7 MM 55.0-65.0 L (test code = 1409) TGH ACTIVATED CLOTTING TIME 7.5 minutes 4.0-7.0 H (BEAKER) (test code = 1411) TGH FIBRINOGEN ACTIVITY (BEAKER) 66.0 degrees 61.0-73.0 (test code = 1412) TGH PLT. AGGREGATION (BEAKER) 58.6 MM 55.0-65.0 (test code = 1413) [id number] 10:42:00 Test Item Value Reference Range Interpretation Comments FIBRINOGEN LEVEL (BEAKER) (test 181 mg/dl 225-434 L code = 658) [id number] 10:37:00 Test Item Value Reference Range Interpretation Comments PARTIAL THROMBOPLASTIN TIME 37.9 seconds 22.5-36.0 H (BEAKER) (test code = 760) PROTHROMBIN [id number] 10:36:00 Test Item Value Reference Range Interpretation Comments PROTIME (BEAKER) (test code = 18.7 seconds 11.7-14.7 H 759) INR (BEAKER) (test code = 370) 1.6 <=5.9 RECOMMENDED COUMADIN/WARFARIN INR THERAPY RANGESSTANDARD DOSE: 2.0 - 3.0 Includes: PROPHYLAXIS for venous thrombosis, systemic embolization; TREATMENT for venous thrombosis and/or pulmonary embolus.HIGH RISK: Target INR is 2.5-3.5 for patients with mechanical heart valves.PLATELET [id number] 10:30:00 Test Item Value Reference Range Interpretation Comments PLATELET COUNT (BEAKER) (test code 80 K/CU MM 150-450 L = 756) BLOOD GAS, [id number] 10:21:00 Test Item Value Reference Range Interpretation Comments PH ARTERIAL (BEAKER) (test code = 7.35 7.35-7.45 383) PCO2 ARTERIAL (BEAKER) (test code 45 mmHg 35-45 = 384) PO2 ARTERIAL (BEAKER) (test code 358 mmHg 80-90 H = 385) O2 SATURATION ARTERIAL (BEAKER) 99.8 % 96.0-97.0 H (test code = 386) HCO3 ARTERIAL (BEAKER) (test code 25 mmol/L 21-29 = 388) BASE EXCESS ARTERIAL (BEAKER) -1.4 mmol/L -2.0-3.0 (test code = 387) PATIENT TEMPERATURE (BEAKER) 36.0 C (test code = 1818) FIO2 (BEAKER) (test code = 1819) 100.0 % SODIUM NA-STAT [id number] 10:21:00 Test Item Value Reference Range Interpretation Comments SODIUM (BEAKER) (test code = 381) 133 meq/L 135-148 L POTASSIUM-STAT [id number] 10:21:00 Test Item Value Reference Range Interpretation Comments POTASSIUM (BEAKER) (test code = 5.6 meq/L 3.6-5.5 H 379) GLUCOSE-STAT [id number] 10:21:00 Test Item Value Reference Range Interpretation Comments GLUCOSE RANDOM (BEAKER) (test code 127 mg/dL 70-110 H = 652) HGB/HCT (H&H) - STAT [id number] 10:21:00 Test Item Value Reference Range Interpretation Comments HEMOGLOBIN (BEAKER) (test code = 8.7 g/dL 13.0-16.8 L 410) HEMATOCRIT (BEAKER) (test code = 26.0 % 40.0-50.0 L 411) CALCIUM, [id number] 10:21:00 Test Item Value Reference Range Interpretation Comments CALCIUM IONIZED (BEAKER) (test 1.05 mmol/L 1.12-1.27 L code = 698) PH, BLOOD (BEAKER) (test code = 7.34 1810) POTASSIUM-STAT [id number] 09:58:00 Test Item Value Reference Range Interpretation Comments POTASSIUM (BEAKER) 6.0 meq/L 3.6-5.5 HH SPECIMEN NOT HEMOLYZED (test code = 379) CALCIUM, [id number] 09:57:00 Test Item Value Reference Range Interpretation Comments CALCIUM IONIZED (BEAKER) (test 0.79 mmol/L 1.12-1.27 LL code = 698) PH, BLOOD (BEAKER) (test code = 7.30 1810) BLOOD GAS, [id number] 09:53:00 Test Item Value Reference Range Interpretation Comments PH ARTERIAL (BEAKER) (test code = 7.32 7.35-7.45 L 383) PCO2 ARTERIAL (BEAKER) (test code 40 mmHg 35-45 = 384) PO2 ARTERIAL (BEAKER) (test code 259 mmHg 80-90 H = 385) O2 SATURATION ARTERIAL (BEAKER) 99.6 % 96.0-97.0 H (test code = 386) HCO3 ARTERIAL (BEAKER) (test code 21 mmol/L 21-29 = 388) BASE EXCESS ARTERIAL (BEAKER) -5.4 mmol/L -2.0-3.0 L (test code = 387) PATIENT TEMPERATURE (BEAKER) 34.9 C (test code = 1818) FIO2 (BEAKER) (test code = 1819) 70.0 % SODIUM NA-STAT [id number] 09:53:00 Test Item Value Reference Range Interpretation Comments SODIUM (BEAKER) (test code = 381) 132 meq/L 135-148 L GLUCOSE-STAT [id number] 09:53:00 Test Item Value Reference Range Interpretation Comments GLUCOSE RANDOM (BEAKER) (test code 121 mg/dL 70-110 H = 652) HGB/HCT (H&H) - STAT [id number] 09:53:00 Test Item Value Reference Range Interpretation Comments HEMOGLOBIN (BEAKER) (test code = 7.1 g/dL 13.0-16.8 L 410) HEMATOCRIT (BEAKER) (test code = 21.0 % 40.0-50.0 L 411) SODIUM NA-STAT [id number] 09:39:00 Test Item Value Reference Range Interpretation Comments SODIUM (BEAKER) (test code = 381) 136 meq/L 135-148 POTASSIUM-STAT [id number] 09:39:00 Test Item Value Reference Range Interpretation Comments POTASSIUM (BEAKER) (test code = 5.5 meq/L 3.6-5.5 379) BLOOD GAS, [id number] 09:39:00 Test Item Value Reference Range Interpretation Comments PH ARTERIAL (BEAKER) (test code = 7.39 7.35-7.45 383) PCO2 ARTERIAL (BEAKER) (test code 36 mmHg 35-45 = 384) PO2 ARTERIAL (BEAKER) (test code 211 mmHg 80-90 H = 385) O2 SATURATION ARTERIAL (BEAKER) 99.4 % 96.0-97.0 H (test code = 386) HCO3 ARTERIAL (BEAKER) (test code 24 mmol/L 21-29 = 388) BASE EXCESS ARTERIAL (BEAKER) -3.3 mmol/L -2.0-3.0 L (test code = 387) PATIENT TEMPERATURE (BEAKER) 28.0 C (test code = 1818) FIO2 (BEAKER) (test code = 1819) 60.0 % GLUCOSE-STAT [id number] 09:39:00 Test Item Value Reference Range Interpretation Comments GLUCOSE RANDOM (BEAKER) (test code 122 mg/dL 70-110 H = 652) HGB/HCT (H&H) - STAT [id number] 09:39:00 Test Item Value Reference Range Interpretation Comments HEMOGLOBIN (BEAKER) (test code = 6.4 g/dL 13.0-16.8 L 410) HEMATOCRIT (BEAKER) (test code = 19.0 % 40.0-50.0 L 411) SODIUM NA-STAT [id number] 07:56:00 Test Item Value Reference Range Interpretation Comments SODIUM (BEAKER) (test code = 381) 140 meq/L 135-148 POTASSIUM-STAT [id number] 07:56:00 Test Item Value Reference Range Interpretation Comments POTASSIUM (BEAKER) (test code = 4.2 meq/L 3.6-5.5 379) BLOOD GAS, [id number] 07:56:00 Test Item Value Reference Range Interpretation Comments PH ARTERIAL (BEAKER) (test code = 7.32 7.35-7.45 L 383) PCO2 ARTERIAL (BEAKER) (test code 52 mmHg 35-45 H = 384) PO2 ARTERIAL (BEAKER) (test code 200 mmHg 80-90 H = 385) O2 SATURATION ARTERIAL (BEAKER) 99.3 % 96.0-97.0 H (test code = 386) HCO3 ARTERIAL (BEAKER) (test code 26 mmol/L 21-29 = 388) BASE EXCESS ARTERIAL (BEAKER) -0.5 mmol/L -2.0-3.0 (test code = 387) PATIENT TEMPERATURE (BEAKER) 36.0 C (test code = 1818) FIO2 (BEAKER) (test code = 1819) 100.0 % GLUCOSE-STAT [id number] 07:56:00 Test Item Value Reference Range Interpretation Comments GLUCOSE RANDOM (BEAKER) (test code 137 mg/dL 70-110 H = 652) HGB/HCT (H&H) - STAT [id number] 07:56:00 Test Item Value Reference Range Interpretation Comments HEMOGLOBIN (BEAKER) (test code = 10.5 g/dL 13.0-16.8 L 410) HEMATOCRIT (BEAKER) (test code = 31.0 % 40.0-50.0 L 411) GLUCOSE-STAT [id number] 06:33:00 Test Item Value Reference Range Interpretation Comments GLUCOSE RANDOM (BEAKER) (test code 122 mg/dL 70-110 H = 652) HGB/HCT (H&H) - STAT [id number] 06:33:00 Test Item Value Reference Range Interpretation Comments HEMOGLOBIN (BEAKER) (test code = 11.4 g/dL 13.0-16.8 L 410) HEMATOCRIT (BEAKER) (test code = 34.0 % 40.0-50.0 L 411) POTASSIUM-STAT [id number] 06:32:00 Test Item Value Reference Range Interpretation Comments POTASSIUM (BEAKER) (test code = 4.2 meq/L 3.6-5.5 379) RAD, CHEST, 2 [id number] 11:29:00Reason for Exam:->Pre-OpFINAL REPORT Chest 2 views 10/21/2017 11:28 AM CLINICAL HISTORY: Pre-Op, chest pain COMPARISON: 08/07/2017 FINDINGS: The lungs are clear. Cardiomediastinal contours are within normal limits. The central pulmonary vasculature is not engorged. A right hemodialysis catheter is present.The visualized skeleton is intact. IMPRESSION: No acute radiographic abnormalities. Signed: Vira Nunez Verified Date/Time: 10/21/2017 11:29:02 Reading Location: [facility] Radiology Reading Room COMPREHENSIVE METABOLIC [id number] 11:23:00 Test Item Value Reference Range Interpretation Comments TOTAL PROTEIN 7.1 gm/dL 6.0-8.3 (BEAKER) (test code = 770) ALBUMIN (BEAKER) 4.2 g/dL 3.5-5.0 (test code = 1145) ALKALINE PHOSPHATASE 44 U/L 40-150 (BEAKER) (test code = 346) BILIRUBIN TOTAL 0.3 mg/dL 0.2-1.2 (BEAKER) (test code = 377) SODIUM (BEAKER) (test 137 meq/L 136-145 code = 381) POTASSIUM (BEAKER) 4.9 meq/L 3.5-5.1 (test code = 379) CHLORIDE (BEAKER) 102 meq/L 98-107 (test code = 382) CO2 (BEAKER) (test 24 meq/L 22-29 code = 355) BLOOD UREA NITROGEN 42 mg/dL 7-21 H (BEAKER) (test code = 354) CREATININE (BEAKER) 5.38 mg/dL 0.57-1.25 H (test code = 358) GLUCOSE RANDOM 132 mg/dL 70-105 H (BEAKER) (test code = 652) CALCIUM (BEAKER) 8.5 mg/dL 8.4-10.2 (test code = 697) AST (SGOT) (BEAKER) 14 U/L 5-34 (test code = 353) ALT (SGPT) (BEAKER) 10 U/L 6-55 (test code = 347) EGFR (BEAKER) (test 13 mL/min/1.73 ESTIMA RUDOLPH GFR IS code = 1092) sq m NOT ACCURATE CREATININE CLEARANCE IN PREDICTING GLOMERULAR FILTRATION RATE . ESTIMATED GFR I S NOT APPLICABLE FOR DIALYSIS PATIEN TS. CREATINE KINASE (CK)2017-10-21 11:20:00 Test Item Value Reference Range Interpretation Comments CREATINE KINASE TOTAL (BEAKER) (test 108 U/L 29-200 code = 380) [id number] 11:09:00 Test Item Value Reference Range Interpretation Comments FIBRINOGEN LEVEL (BEAKER) (test 337 mg/dl 225-434 code = 658) [id number] 11:09:00 Test Item Value Reference Range Interpretation Comments PROTIME (BEAKER) (test code = 13.7 seconds 11.7-14.7 759) INR (BEAKER) (test code = 370) 1.1 <=5.9 PARTIAL THROMBOPLASTIN TIME 33.1 seconds 22.5-36.0 (BEAKER) (test code = 760) RECOMMENDED COUMADIN/WARFARIN INR THERAPY RANGESSTANDARD DOSE: 2.0 - 3.0 Includes: PROPHYLAXIS for venous thrombosis, systemic embolization; TREATMENT for venous thrombosis and/or pulmonary embolus.HIGH RISK: Target INR is 2.5-3.5 for patients with mechanical heart valves.CBC W/PLT COUNT & AUTO [id number] 10:47:00 Test Item Value Reference Range Interpretation Comments WHITE BLOOD CELL COUNT (BEAKER) 5.4 K/ L 3.5-10.5 (test code = 775) RED BLOOD CELL COUNT (BEAKER) 3.58 M/ L 4.63-6.08 L (test code = 761) HEMOGLOBIN (BEAKER) (test code = 9.9 GM/DL 13.7-17.5 L 410) HEMATOCRIT (BEAKER) (test code = 32.9 % 40.1-51.0 L 411) MEAN CORPUSCULAR VOLUME (BEAKER) 91.9 fL 79.0-92.2 (test code = 753) MEAN CORPUSCULAR HEMOGLOBIN 27.7 pg 25.7-32.2 (BEAKER) (test code = 751) MEAN CORPUSCULAR HEMOGLOBIN CONC 30.1 GM/DL 32.3-36.5 L (BEAKER) (test code = 752) RED CELL DISTRIBUTION WIDTH 13.8 % 11.6-14.4 (BEAKER) (test code = 412) PLATELET COUNT (BEAKER) (test 188 K/CU MM 150-450 code = 756) MEAN PLATELET VOLUME (BEAKER) 11.6 fL 9.4-12.4 (test code = 754) NUCLEATED RED BLOOD CELLS 0 /100 WBC 0-0 (BEAKER) (test code = 413) NEUTROPHILS RELATIVE PERCENT 52 % (BEAKER) (test code = 429) LYMPHOCYTES RELATIVE PERCENT 35 % (BEAKER) (test code = 430) MONOCYTES RELATIVE PERCENT 7 % (BEAKER) (test code = 431) EOSINOPHILS RELATIVE PERCENT 4 % (BEAKER) (test code = 432) BASOPHILS RELATIVE PERCENT 1 % (BEAKER) (test code = 437) NEUTROPHILS ABSOLUTE COUNT 2.82 K/ L 1.78-5.38 (BEAKER) (test code = 670) LYMPHOCYTES ABSOLUTE COUNT 1.88 K/ L 1.32-3.57 (BEAKER) (test code = 414) MONOCYTES ABSOLUTE COUNT (BEAKER) 0.40 K/ L 0.30-0.82 (test code = 415) EOSINOPHILS ABSOLUTE COUNT 0.22 K/ L 0.04-0.54 (BEAKER) (test code = 416) BASOPHILS ABSOLUTE COUNT (BEAKER) 0.07 K/ L 0.01-0.08 (test code = 417) IMMATURE GRANULOCYTES-RELATIVE 0 % 0-1 PERCENT (BEAKER) (test code = 2801) BASIC METABOLIC [id number] 12:45:00 Test Item Value Reference Range Interpretation Comments SODIUM (BEAKER) 139 meq/L 136-145 (test code = 381) POTASSIUM (BEAKER) 5.2 meq/L 3.5-5.1 H (test code = 379) CHLORIDE (BEAKER) 103 meq/L 98-107 (test code = 382) CO2 (BEAKER) (test 26 meq/L 22-29 code = 355) BLOOD UREA NITROGEN 40 mg/dL 7-21 H (BEAKER) (test code = 354) CREATININE (BEAKER) 5.47 mg/dL 0.57-1.25 H (test code = 358) GLUCOSE RANDOM 115 mg/dL 70-105 H (BEAKER) (test code = 652) CALCIUM (BEAKER) 9.3 mg/dL 8.4-10.2 (test code = 697) EGFR (BEAKER) (test 13 mL/min/1.73 ESTIMA RUDOLPH GFR IS code = 1092) sq m NOT ACCURATE CREATININE CLEARANCE IN PREDICTING GLOMERULAR FILTRATION RATE . ESTIMATED GFR I S NOT APPLICABLE FOR DIALYSIS PATIEN TS. [id number] 12:24:00 Test Item Value Reference Range Interpretation Comments PROTIME (BEAKER) (test code = 14.0 seconds 11.7-14.7 759) INR (BEAKER) (test code = 370) 1.1 <=5.9 PARTIAL THROMBOPLASTIN TIME 32.4 seconds 22.5-36.0 (BEAKER) (test code = 760) RECOMMENDED COUMADIN/WARFARIN INR THERAPY RANGESSTANDARD DOSE: 2.0 - 3.0 Includes: PROPHYLAXIS for venous thrombosis, systemic embolization; TREATMENT for venous thrombosis and/or pulmonary embolus.HIGH RISK: Target INR is 2.5-3.5 for patients with mechanical heart valves.CBC W/PLT COUNT & AUTO [id number] 12:06:00 Test Item Value Reference Range Interpretation Comments WHITE BLOOD CELL COUNT (BEAKER) 6.3 K/ L 3.5-10.5 (test code = 775) RED BLOOD CELL COUNT (BEAKER) 3.73 M/ L 4.63-6.08 L (test code = 761) HEMOGLOBIN (BEAKER) (test code = 10.4 GM/DL 13.7-17.5 L 410) HEMATOCRIT (BEAKER) (test code = 34.8 % 40.1-51.0 L 411) MEAN CORPUSCULAR VOLUME (BEAKER) 93.3 fL 79.0-92.2 H (test code = 753) MEAN CORPUSCULAR HEMOGLOBIN 27.9 pg 25.7-32.2 (BEAKER) (test code = 751) MEAN CORPUSCULAR HEMOGLOBIN CONC 29.9 GM/DL 32.3-36.5 L (BEAKER) (test code = 752) RED CELL DISTRIBUTION WIDTH 14.0 % 11.6-14.4 (BEAKER) (test code = 412) PLATELET COUNT (BEAKER) (test 157 K/CU MM 150-450 code = 756) MEAN PLATELET VOLUME (BEAKER) 12.5 fL 9.4-12.4 H (test code = 754) NUCLEATED RED BLOOD CELLS 0 /100 WBC 0-0 (BEAKER) (test code = 413) NEUTROPHILS RELATIVE PERCENT 45 % (BEAKER) (test code = 429) LYMPHOCYTES RELATIVE PERCENT 40 % (BEAKER) (test code = 430) MONOCYTES RELATIVE PERCENT 10 % (BEAKER) (test code = 431) EOSINOPHILS RELATIVE PERCENT 4 % (BEAKER) (test code = 432) BASOPHILS RELATIVE PERCENT 1 % (BEAKER) (test code = 437) NEUTROPHILS ABSOLUTE COUNT 2.86 K/ L 1.78-5.38 (BEAKER) (test code = 670) LYMPHOCYTES ABSOLUTE COUNT 2.51 K/ L 1.32-3.57 (BEAKER) (test code = 414) MONOCYTES ABSOLUTE COUNT (BEAKER) 0.62 K/ L 0.30-0.82 (test code = 415) EOSINOPHILS ABSOLUTE COUNT 0.25 K/ L 0.04-0.54 (BEAKER) (test code = 416) BASOPHILS ABSOLUTE COUNT (BEAKER) 0.06 K/ L 0.01-0.08 (test code = 417) IMMATURE GRANULOCYTES-RELATIVE 0 % 0-1 PERCENT (BEAKER) (test code = 2801) HEMOGLOBIN [id number] 14:41:00 Test Item Value Reference Range Interpretation Comments HEMOGLOBIN A1C (BEAKER) (test code = 7.0 % 4.3-6.1 H 368) HIV-1 ANTIGEN WITH HIV-1/2 [id number] 10:23:00 Test Item Value Reference Range Interpretation Comments HIV-1 ANTIGEN WITH HIV 1\\T\\2 Nonreactive Nonreactive ANTIBODY (2) (VISHNU) (test code = 2586) FL, CYSTOGRAM, CINE OR VIDEO, [id number] 10:05:00Reason for Exam:- >esrd; eval for renal txpFINAL REPORT VOIDING CYSTOURETHROGRAM, WITH KUB History provided: Evaluation for renal transplantation FINDINGS: KUB unremarkable with the exception of chronic degenerative disc disease at L3-4. When the patient was catheterized, it appears that the catheter only extended into theurethra. Nonetheless, a satisfactory occlusion was achieved, and the bladder was filled with 150 cc diluted iodinated contrast. The catheter was removed and the patient allowed to void. Bladder contours are smooth. No evidence of vesicoureteral reflux. Normal-appearing male urethra during voiding withcomplete bladder emptying. IMPRESSION: Normal VCUG. Fluoroscopy time: 79 seconds Number of exposuresperformed: 13 Radiation dose (Ka,r): 33.3 mGy Signed: Onel Duarteort Verified Date/Time: 08/07/2017 10:05:30 Reading Location: [address] Radiology Reading Room U/S, ABDOMINAL, COMPLETE 2017-08-07 09:58:00Reason for Exam:->esrd; eval for renal txpFINAL REPORT [...] known renal failure. Otherwise unremarkable study. Signed: Onel Duarteeport Verified Date/Time: 08/07/2017 09:58:47 Reading Location: [address] Radiology Reading Room [id number] 09:20:00 Test Item Value Reference Range Interpretation Comments PROSTATE SPECIFIC ANTIGEN (BEAKER) 6.7 ng/mL 0.0-4.0 H (test code = 844) RAD, CHEST, 2 [id number] 09:11:00Reason for Exam:->esrd; eval for renal txpFINAL REPORT CHEST PA AND LATERAL History provided: Evaluation for renal transplantation Comparison studies: None Heart size normal. Lungs are mildly hyperexpanded but clear, and vascularity normal. Numerous right healed rib fractures. IMPRESSION: Clear chest. Signed: Onel DuarteMDReport Verified Date/Time: 08/07/2017 09:11:05 Reading Location: [address] Radiology Reading Room LIPID [id number] 08:38:00 Test Item Value Reference Range Interpretation Comments TRIGLYCERIDES (BEAKER) (test code = 179 mg/dL 540) CHOLESTEROL (BEAKER) (test code = 225 mg/dL 631) HDL CHOLESTEROL (BEAKER) (test code 51 mg/dL = 976) LDL CHOLESTEROL CALCULATED ([facility]) 138 mg/dL (test code = 633) Triglyceride Reference Range: Low Risk <150 Borderline 150-199 High Risk 200- 499 Very High Risk >=500Cholesterol Reference Range: Low Risk <200 Borderline 200-239 High Risk >240HDL Cholesterol Reference Range: Low Risk >=60 High Risk <40LDL Cholesterol Reference Range: Optimal <100 Near Optimal 100-129 Borderline 130-159 High 160-189 Very High >=190URINE CULTURE 2017-05-14 13:31:00 Test Item Value Reference Range Interpretation Comments CULTURE (BEAKER) (test <10,000 col/mL skin code = 1095) markos CYTOMEGALOVIRUS ANTIBODY, [id number] 07:58:00 Test Item Value Reference Range Interpretation Comments CYTOMEGALOVIRUS IGG ANTIBODY Positive (BEAKER) (test code = 790) CYTOMEGALOVIRUS ANTIBODY, [id number] 07:58:00 Test Item Value Reference Range Interpretation Comments CYTOMEGALOVIRUS IGM ANTIBODY Positive (BEAKER) (test code = 816) EBV-VCA ANTIBODY, [id number] 07:58:00 Test Item Value Reference Range Interpretation Comments DONTAE-ESPINOSA VCA IGG (BEAKER) (test Positive code = 983) EBV-VCA ANTIBODY, [id number] 07:58:00 Test Item Value Reference Range Interpretation Comments DONTAE-ESPINOSA VCA IGM (BEAKER) (test Negative code = 984) VARICELLA ZOSTER ANTIBODY, [id number] 07:32:00 Test Item Value Reference Range Interpretation Comments VARICELLA ZOSTER IGG (AL) (BEAKER) 3.5 Al (test code = 3197) VARICELLA ZOSTER RESULT INTERPRETATIONS: <=0.8 Al Nonreactive: Presumed non- immune to VZV 0.9-1.0Al Equivocal >=1.1 Al Reactive: Presumed immune to VZV [id number] 05:27:00 Test Item Value Reference Range Interpretation Comments RPR SCREEN (BEAKER) (test code = Nonreactive Nonreactive 420) HEMOGLOBIN [id number] 14:09:00 Test Item Value Reference Range Interpretation Comments HEMOGLOBIN A1C (BEAKER) (test code = 7.0 % 4.3-6.1 H 368) COMPREHENSIVE METABOLIC [id number] 11:41:00 Test Item Value Reference Range Interpretation Comments TOTAL PROTEIN 7.8 gm/dL 6.0-8.3 (BEAKER) (test code = 770) ALBUMIN (BEAKER) 4.4 g/dL 3.5-5.0 (test code = 1145) ALKALINE PHOSPHATASE 51 U/L 40-150 (BEAKER) (test code = 346) BILIRUBIN TOTAL 0.3 mg/dL 0.2-1.2 (BEAKER) (test code = 377) SODIUM (BEAKER) (test 139 meq/L 136-145 code = 381) POTASSIUM (BEAKER) 5.2 meq/L 3.5-5.1 H (test code = 379) CHLORIDE (BEAKER) 106 meq/L 98-107 (test code = 382) CO2 (BEAKER) (test 24 meq/L 22-29 code = 355) BLOOD UREA NITROGEN 29 mg/dL 7-21 H (BEAKER) (test code = 354) CREATININE (BEAKER) 5.60 mg/dL 0.57-1.25 H (test code = 358) GLUCOSE RANDOM 132 mg/dL 70-105 H (BEAKER) (test code = 652) CALCIUM (BEAKER) 9.1 mg/dL 8.4-10.2 (test code = 697) AST (SGOT) (BEAKER) 9 U/L 5-34 (test code = 353) ALT (SGPT) (BEAKER) 8 U/L 6-55 (test code = 347) EGFR (BEAKER) (test 12 mL/min/1.73 ESTIMA RUDOLPH GFR IS code = 1092) sq m NOT ACCURATE CREATININE CLEARANCE IN PREDICTING GLOMERULAR FILTRATION RATE . ESTIMATED GFR I S NOT APPLICABLE FOR DIALYSIS PATIEN TS. URIC [id number] 11:32:00 Test Item Value Reference Range Interpretation Comments URIC ACID (BEAKER) (test code = 3.5 mg/dL 2.6-7.2 773) [id number] 11:32:00 Test Item Value Reference Range Interpretation Comments PHOSPHORUS (BEAKER) (test code = 4.0 mg/dL 2.3-4.7 604) GAMMA GLUTAMYL TRANSFERASE (GGT)2017-05-13 11:32:00 Test Item Value Reference Range Interpretation Comments GAMMA GLUTAMYL TRANSFERASE (BEAKER) 27 U/L 9-64 (test code = 364) LACTATE DEHYDROGENASE (LDH)2017-05-13 11:32:00 Test Item Value Reference Range Interpretation Comments LACTATE DEHYDROGENASE (BEAKER) (test 229 U/L 125-220 H code = 635) [id number] 10:15:00 Test Item Value Reference Range Interpretation Comments PROSTATE SPECIFIC ANTIGEN (BEAKER) 5.7 ng/mL 0.0-4.0 H (test code = 844) HEPATITIS B SURFACE [id number] 10:15:00 Test Item Value Reference Range Interpretation Comments HEPATITIS B SURFACE ANTIGEN (2) Nonreactive Nonreactive (BEAKER) (test code = 2585) HEPATITIS B SURFACE [id number] 10:15:00 Test Item Value Reference Range Interpretation Comments HEPATITIS B SURFACE ANTIBODY 195.7 mIU/mL <8.0 H (BEAKER) (test code = 647) HEPATITIS B CORE ANTIBODY, [id number] 10:15:00 Test Item Value Reference Range Interpretation Comments HEPATITIS B CORE IGM ANTIBODY Nonreactive Nonreactive (BEAKER) (test code = 645) HEPATITIS C [id number] 10:15:00 Test Item Value Reference Range Interpretation Comments HEPATITIS C ANTIBODY (BEAKER) Nonreactive Nonreactive (test code = 367) URINALYSIS W/ [id number] 10:12:00 Test Item Value Reference Range Interpretation Comments COLOR (BEAKER) (test code = 470) Yellow CLARITY (BEAKER) (test code = 469) Clear SPECIFIC GRAVITY UA (BEAKER) (test 1.015 1.001-1.035 code = 468) PH UA (BEAKER) (test code = 467) 5.5 5.0-8.0 PROTEIN UA (BEAKER) (test code = 300 mg/dL Negative A 464) GLUCOSE UA (BEAKER) (test code = Negative Negative 365) KETONES UA (BEAKER) (test code = Negative Negative 371) BILIRUBIN UA (BEAKER) (test code = Negative Negative 462) BLOOD UA (BEAKER) (test code = 461) Trace Negative A NITRITE UA (BEAKER) (test code = Negative Negative 465) LEUKOCYTE ESTERASE UA (BEAKER) Negative Negative (test code = 466) UROBILINOGEN UA (BEAKER) (test code 0.2 mg/dL 0.2-1.0 = 463) RBC UA (BEAKER) (test code = 519) 0 /HPF WBC UA (BEAKER) (test code = 520) 1 /HPF BACTERIA (BEAKER) (test code = 517) Rare MUCUS (BEAKER) (test code = 1574) Rare SQUAMOUS EPITHELIAL (BEAKER) (test 1 /HPF code = 516) HYALINE CASTS (BEAKER) (test code = 14 /LPF 514) SOURCE(BEAKER) (test code = 2795) PTH, [id number] 09:29:00 Test Item Value Reference Range Interpretation Comments PARATHYROID HORMONE INTACT 189.9 pg/mL 8.5-72.5 H (BEAKER) (test code = 577) [id number] 09:09:00 Test Item Value Reference Range Interpretation Comments PROTIME (BEAKER) (test code = 13.8 seconds 11.7-14.7 759) INR (BEAKER) (test code = 370) 1.1 <=5.9 PARTIAL THROMBOPLASTIN TIME 35.7 seconds 22.5-36.0 (BEAKER) (test code = 760) RECOMMENDED COUMADIN/WARFARIN INR THERAPY RANGESSTANDARD DOSE: 2.0 - 3.0 Includes: PROPHYLAXIS for venous thrombosis, systemic embolization; TREATMENT for venous thrombosis and/or pulmonary embolus.HIGH RISK: Target INR is 2.5-3.5 for patients with mechanical heart valves.CBC W/PLT COUNT & AUTO [id number] 08:58:00 Test Item Value Reference Range Interpretation Comments WHITE BLOOD CELL COUNT (BEAKER) 5.1 K/ L 3.5-10.5 (test code = 775) RED BLOOD CELL COUNT (BEAKER) 4.49 M/ L 4.63-6.08 L (test code = 761) HEMOGLOBIN (BEAKER) (test code = 12.0 GM/DL 13.7-17.5 L 410) HEMATOCRIT (BEAKER) (test code = 41.2 % 40.1-51.0 411) MEAN CORPUSCULAR VOLUME (BEAKER) 91.8 fL 79.0-92.2 (test code = 753) MEAN CORPUSCULAR HEMOGLOBIN 26.7 pg 25.7-32.2 (BEAKER) (test code = 751) MEAN CORPUSCULAR HEMOGLOBIN CONC 29.1 GM/DL 32.3-36.5 L (BEAKER) (test code = 752) RED CELL DISTRIBUTION WIDTH 14.3 % 11.6-14.4 (BEAKER) (test code = 412) PLATELET COUNT (BEAKER) (test 190 K/CU MM 150-450 code = 756) MEAN PLATELET VOLUME (BEAKER) 11.9 fL 9.4-12.4 (test code = 754) NUCLEATED RED BLOOD CELLS 0 /100 WBC 0-0 (BEAKER) (test code = 413) NEUTROPHILS RELATIVE PERCENT 49 % (BEAKER) (test code = 429) LYMPHOCYTES RELATIVE PERCENT 33 % (BEAKER) (test code = 430) MONOCYTES RELATIVE PERCENT 10 % (BEAKER) (test code = 431) EOSINOPHILS RELATIVE PERCENT 5 % (BEAKER) (test code = 432) BASOPHILS RELATIVE PERCENT 2 % (BEAKER) (test code = 437) NEUTROPHILS ABSOLUTE COUNT 2.53 K/ L 1.78-5.38 (BEAKER) (test code = 670) LYMPHOCYTES ABSOLUTE COUNT 1.71 K/ L 1.32-3.57 (BEAKER) (test code = 414) MONOCYTES ABSOLUTE COUNT (BEAKER) 0.51 K/ L 0.30-0.82 (test code = 415) EOSINOPHILS ABSOLUTE COUNT 0.27 K/ L 0.04-0.54 (BEAKER) (test code = 416) BASOPHILS ABSOLUTE COUNT (BEAKER) 0.08 K/ L 0.01-0.08 (test code = 417) IMMATURE GRANULOCYTES-RELATIVE 1 % 0-1 PERCENT (BEAKER) (test code = 2809)
--- NOTE | 2022-05-09 01:27 | EDPHYS ---
Physician Documentation [facility] Name: Russ Corona Age: 71 yrs Sex: Male : 1950 Arrival Date: 05/09/2022 Time: 00:15 Bed 15 Private MD: ED Physician Dangelo Lazcano HPI: 05/09 01:23 This 71 yrs old Black Male presents to ER via EMS with complaints of Leg Pain. rn 01:23 The patient presents with pain, that is acute. The complaints affect the right daniel and rn dorsum of right foot. Onset: The symptoms/episode began/occurred today. Modifying factors: The symptoms are alleviated by nothing. the symptoms are aggravated by nothing. Severity of symptoms: At their worst the symptoms were moderate, in the emergency department the symptoms have improved. The patient has not experienced similar symptoms in the past. The patient has been recently seen by a physician:. Pt s/p RLE BKA a few weeks ago, not taking his prescribed pain meds/gabapentin/muscle relaxers. Comes in tonight for moderate phantom pain in right foot below level of amputation. NO injury to stump or pain at stump. No drainage or swelling.. Historical: - Allergies: 00:40 No Known Allergies; ke1 - PMHx: 00:40 Diabetes - NIDDM; Dialysis; M,W,F; Enlarged Heart; High Cholesterol; Hypertension; ke1 - Immunization history:: Client reports receiving the 2nd dose of the Covid vaccine. - Social history:: Smoking status: Patient/guardian denies using tobacco, the patient reports quitting approximately 6 years ago. - Family history:: not pertinent. - Hospitalizations: : No recent hospitalization is reported. ROS: 01:23 Constitutional: Negative for fever, chills, and weight loss, Eyes: Negative for injury, rn pain, redness, and discharge, Cardiovascular: Negative for chest pain, palpitations, and edema, Respiratory: Negative for shortness of breath, cough, wheezing, and pleuritic chest pain, Abdomen/GI: Negative for abdominal pain, nausea, vomiting, diarrhea, and constipation, Back: Negative for injury and pain, MS/Extremity: Negative for injury and deformity, Skin: Negative for injury, rash, and discoloration, Neuro: Negative for headache, weakness, numbness, tingling, and seizure. Exam: 01:23 Constitutional: This is a well developed, well nourished patient who is awake, alert, rn and in no acute distress. Head/Face: Normocephalic, atraumatic. Cardiovascular: Regular rate and rhythm. No pulse deficits. Respiratory: No increased work of breathing, no retractions or nasal flaring. Abdomen/GI: Soft, non-tender MS/ Extremity: No cyanosis. RLE BKA amputation with well-healing wound, no swelling or drainage, no dehiscence of surgical wound. Neuro: Awake and alert, GCS 15 Vital Signs: 00:15 BP 160 / 63; Pulse 65; Resp 19; Temp 98.6(O); Pulse Ox 100% on R/A; Weight 74.84 kg; ke1 Height 5 ft. 7 in. (170.18 cm); Pain 10/10; 00:55 Pain 2/10; ke1 01:27 BP 150 / 63; Pulse 61; Resp 19; Temp 98.6(O); Pulse Ox 100% on R/A; Pain 0/10; ke1 02:16 BP 148 / 60; Pulse 63; Resp 18; Temp 98.5; Pulse Ox 100% on R/A; Pain 0/10; ke1 00:15 Body Mass Index 25.84 (74.84 kg, 170.18 cm) ke1 MDM: 00:17 Patient medically screened. rn 01:23 Differential diagnosis: phantom pain, neuropathy. Data reviewed: vital signs, nurses rn notes, and as a result, I will discharge patient. Counseling: I had a detailed discussion with the patient and/or guardian regarding: the historical points, exam findings, and any diagnostic results supporting the discharge/admit diagnosis, the need for outpatient follow up, to return to the emergency department if symptoms worsen or persist or if there are any questions or concerns that arise at home. Response to treatment: the patient's symptoms have markedly improved after treatment, and as a result, I will discharge patient. Special discussion: I discussed with the patient/guardian in detail that at this point there is no indication for admission to the hospital. It is understood, however, that if the symptoms persist or worsen the patient needs to return immediately for re-evaluation. Based on the history and exam findings, there is no indication for further emergent testing or inpatient evaluation. I discussed with the patient/guardian the need to see the paint maker for further evaluation of the symptoms. I discussed with the patient/guardian the need to see the primary care provider for further evaluation of the symptoms. Administered Medications: 00:40 Drug: morphine 4 mg Route: IM; Site: right deltoid; ke1 00:55 Follow up: Pain 07/26 Adult; Response: Anxiety decreased ke1 00:40 Drug: Flexeril (cyclobenzaprine) 10 mg Route: PO; ke1 01:02 Follow up: Response: Pain is decreased ke1 Disposition Summary: 05/09/22 01:26 Discharge Ordered Location: Home rn Problem: new rn Symptoms: have improved rn Condition: Stable rn Diagnosis - Phantom limb syndrome with pain rn Followup: rn - With: Private Physician - When: As needed - Reason: Recheck today's complaints, Re-evaluation by your physician Discharge Instructions: - Discharge Summary Sheet rn - Phantom Limb Pain rn Forms: - Medication Reconciliation Form rn - Thank You Letter rn - Antibiotic shirt turner - Prescription Opioid Use rn Signatures: Dangelo Lazcano MD MD rn Ebrottie, Kouassi, RN RN ke1
--- NOTE | 2022-05-09 01:27 | ER ---
Nurse's Notes [facility] Name: Russ Corona Age: 71 yrs Sex: Male : 1950 Arrival Date: 05/09/2022 Time: 00:15 Bed 15 Private MD: Diagnosis: Phantom limb syndrome with pain Presentation: 05/09 00:15 Chief complaint: EMS states: Patient is post Right BKA and c/o severe pain on R stump ke1 that started AT 1900. Coronavirus screen: Vaccine status: Patient reports receiving the 2nd dose of the covid vaccine. Ebola Screen: No symptoms or risks identified at this time. Initial Sepsis Screen: Does the patient meet any 2 criteria? No. Patient's initial sepsis screen is negative. Does the patient have a suspected source of infection? No. Patient's initial sepsis screen is negative. Risk Assessment: Do you want to hurt yourself or someone else? Patient reports no desire to harm self or others. Onset of symptoms was May 08, 2022 at 19:00. 00:15 Method Of Arrival: EMS: [facility] ke1 00:15 Acuity: ELLI 3 ke1 Triage Assessment: 00:18 General: Appears uncomfortable, Behavior is appropriate for age. Pain: Complains of ke1 pain in R STUMP Pain currently is 10 out of 10 on a pain scale. at worst was 10 out of 10 on a pain scale. level that patient reports is acceptable is 3 out of 10 on a pain scale. Quality of pain is described as aching, Alleviated by nothing. Historical: - Allergies: 00:40 No Known Allergies; ke1 - PMHx: 00:40 Diabetes - NIDDM; Dialysis; M,W,F; Enlarged Heart; High Cholesterol; Hypertension; ke1 - Immunization history:: Client reports receiving the 2nd dose of the Covid vaccine. - Social history:: Smoking status: Patient/guardian denies using tobacco, the patient reports quitting approximately 6 years ago. - Family history:: not pertinent. - Hospitalizations: : No recent hospitalization is reported. Screenin:48 Abuse screen: Denies threats or abuse. ke1 00:48 Nutritional screening: No deficits noted. Tuberculosis screening: No symptoms or risk ke1 factors identified. Fall Risk No fall in past 12 months (0 pts). Secondary diagnosis (15 points) impaired mobility, No IV (0 pts). Ambulatory Aid- None/Bed Rest/Nurse Assist (0 pts). Gait- Impaired (20 pts.). Mental Status- Oriented to own ability (0 pts). Total Mireles Fall Scale indicates Low Risk Score (25-44 pts). Fall prevention measures have been instituted. Side Rails Up X 2. Assessment: 01:01 Reassessment: Patient states feeling better. Patient states symptoms have improved. ke1 02:16 Reassessment: R stump dressing done prior to d/c. ke1 02:17 Reassessment: No changes from previously documented assessment. ke1 Vital Signs: 00:15 BP 160 / 63; Pulse 65; Resp 19; Temp 98.6(O); Pulse Ox 100% on R/A; Weight 74.84 kg; ke1 Height 5 ft. 7 in. (170.18 cm); Pain 10/10; 00:55 Pain 2/10; ke1 01:27 BP 150 / 63; Pulse 61; Resp 19; Temp 98.6(O); Pulse Ox 100% on R/A; Pain 0/10; ke1 02:16 BP 148 / 60; Pulse 63; Resp 18; Temp 98.5; Pulse Ox 100% on R/A; Pain 0/10; ke1 00:15 Body Mass Index 25.84 (74.84 kg, 170.18 cm) ke1 ED Course: 00:15 Patient arrived in ED. wm 00:17 Dangelo Lazcano MD is Attending Physician. rn 00:30 Nisha Nicholas RN is Primary Nurse. ke1 00:43 Triage completed. ke1 00:48 Arm band placed on left wrist. ke1 00:49 Bed in low position. Call light in reach. ke1 01:28 No provider procedures requiring assistance completed. Patient did not have IV access ke1 during this emergency room visit. Administered Medications: 00:40 Drug: morphine 4 mg Route: IM; Site: right deltoid; ke1 00:55 Follow up: Pain 2/10 Adult; Response: Anxiety decreased ke1 00:40 Drug: Flexeril (cyclobenzaprine) 10 mg Route: PO; ke1 01:02 Follow up: Response: Pain is decreased ke1 Medication: 01:28 VIS not applicable for this client. ke1 Outcome: 01:26 Discharge ordered by . rn 02:17 Discharged to home via wheelchair. ke1 02:17 Condition: good 02:17 Discharge instructions given to patient. 02:17 Patient left the ED. ke1 Signatures: Dangelo Lazcano MD MD rn Marsh, Wendy wm Ebrottie, Kouassi, RN RN ke1
[2022-05-09 02:30] VITALS: O2SAT 100
[2022-05-09 02:34] VITALS: BP 148/60; TEMP 98.5
== END 2022-05-09 02:17 | disposition home or self-care (01) ==
LOC: ER 00:06
DX: G54.6 Phantom limb syndrome with pain (principal); Z89.511 Acquired absence of right leg below knee; I10 Essential (primary) hypertension; Z99.2 Dependence on renal dialysis
CPT/HCPCS: 96372; 99283

== ENCOUNTER 2022-06-09 14:42 | Emergency (ER) | payer OTHER ==
--- OUTSIDE RECORDS SUMMARY | 2022-06-09 15:11 | XMS REPORT | Continuity of Care Document ---
:1950 Author Organization [facility] t Address [address] [place]. [address] [place] [id number] Care Team Providers Name Role Phone Larisa Farley Primary Care Physician [id number] Attending Clinician Unavailable PRETTY GUILLEN Attending Clinician Unavailable DELFINO GRANADO Attending Clinician Unavailable DELFINO GRANADO Attending Clinician Unavailable Precious Crump Attending Clinician Tyrell Salvador MD Attending Clinician MICHELLE BLANCO Attending Clinician Unavailable Michelle Livingston Attending Clinician Doctor Unassigned, [place] Attending Clinician Unavailable Katie Sotomayor LMSW Attending Clinician PRECIOUS GALAVIZ Attending Clinician Unavailable Jada LANTIGUA, Wanda Ferreira Attending Clinician Unavailable Kimberly Menon DO Attending Clinician Brad Granger DO Attending Clinician Chuck Cohn DO Attending Clinician Yeni Dang DO Attending Clinician EFREM MCNAIR Attending Clinician Unavailable Efrem Mcnair DO Attending Clinician Suzi MARI, Melissa Wynn Attending Clinician Pob, [facility] Main Attending Clinician Unavailable Pretty Guillen MDHMai Attending Clinician 2, [facility] Attending Clinician Unavailable DEANNA PAZ Attending Clinician Unavailable Deanna Rodrigues Attending Clinician [facility] Attending Clinician Unavailable SHANNAN RAHMAN Attending Clinician Unavailable Shannan Rahman MD Attending Clinician Lab, Ang - Db Attending Clinician Unavailable SUZICARMEN CLARKFUL Tianna Attending Clinician Unavailable OGUNLANVICTOR MANUEL WynnMAURILIO A Attending Clinician Unavailable RITESH SUTTON Attending Clinician Unavailable MOTCORAZON, MYRTLE Attending Clinician Unavailable USAMA ZALDIVAR Attending Clinician Unavailable LEO GARCIA Attending Clinician Unavailable VITALY SIMONS Attending Clinician Unavailable JOSE L TOVAR Attending Clinician Unavailable SUSIE JORGE Attending Clinician Unavailable BRAD ANGUIANO Attending Clinician Unavailable CHERISE GALEANA Attending Clinician Unavailable JENNIFER SORTO Attending Clinician Unavailable BLAZE BALBUENA Attending Clinician Unavailable [id number] Admitting Clinician Unavailable KIMBERLY MENON Admitting Clinician Unavailable Delfino Granado MD Admitting Clinician EFREM MCNAIR Admitting Clinician Unavailable PRETTY GUILLEN K.HMai Admitting Clinician Unavailable BOBBY AVENDANO Admitting Clinician Unavailable SHANNAN RAHMAN Admitting Clinician Unavailable Shannan Rahman MD Admitting Clinician LEO GARCIA Admitting Clinician Unavailable BRAD ANGUAINO Admitting Clinician Unavailable CHERISE GALEANA Admitting Clinician Unavailable BLAZE BALBUENA Admitting Clinician Unavailable Payers Payer Name Policy Type Policy Number Effective Date Expiration Date Roxie TIPTON [id number] MEDICARE PART A [id number] 2017 \\T\\ B 00:00:00 [facility] [id number] 2017 [place] 00:[place]:00 [facility] [id number] 2022 [place] 00:00:00 Problems Condition Condition Condition [...] toe, 0-20 ity of initial initial 00:00: [place] encounter encounter 00 [facility] Branch Dialysis Dialysis Disease Active Overview: Un bruno AV fistula AV fistula 2-15 Formattin ity of malfunctio malfunctio 00:00: g of this [place] n, initial n, initial 00 note Me dical encounter encounter might be Br anch different from the original. 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 00:00: [place] with ESRD with ESRD 00 [facility] tom (end-stage (end-stage Br anch renal renal disease) disease) Essential Essential Disease Active Uni vers hypertensi hypertensi 4-02 it y of on on 00:00: [place] [facility] Cardiomyop Cardiomyop Disease Active U nivers athy, athy, 6-06 ity of ischemic ischemic 00:00: [place] 00 Medical Branch S/P CABG x S/P CABG x Disease Active U nivers 3 3 6-06 ity of 00:00: [place] 00 Medical Branch Coronary Coronary Disease Active Overview: Un bruno atheroscle atheroscle 6-05 Formattin ity of rosis rosis 00:00: g of this [place] 00 note Medical might be Branch different from the original. Overview: S/p ACB x 3, Dr. Anguiano 10/23/17 - TAVERAS to LAD, SVG to LCx, SVG to ramus S/P CABG x S/P CABG x Disease Active [facility] 3 3 5-10 [facility] 00:00: Medical 00 Center Pre-transp Pre-transp Disease Active [facility] lant lant 4-17 [facility] evaluation evaluation 00:00: Me dical for ESRD for ESRD 00 Center (end stage (end stage renal renal disease) disease) Clotted Clotted Disease Active Univers renal renal 2-06 ity of dialysis dialysis 00:00: [place] AV graft, AV graft, 00 [facility] tom initial initial Branch encounter encounter ESRD (end ESRD (end Disease Active 2016-06 Overview: Univers stage stage 2-08 Formattin ity of renal renal 00:00: g of this [place] disease) disease) 00 note Medica l on on might be Branch dialysis dialysis different from the original. Added automatic ally from request for surgery [id number] Stroke Stroke Disease Active Overview: [facility]01 [facility] 00:00: g of this [facility] 00 note Center might be different from the original. no residual PAD PAD Disease Active Univers (periphera (periphera it y of l artery l artery [place] disease) disease) Medica l Branch Coronary Coronary Disease Active [facility] artery [facility] disease disease Medical Center ESRD (end ESRD (end Disease Active [facility] stage stage [facility] renal renal Medical disease) disease) Center Dialysis Dialysis Disease Active [facility] patient patient [facility] Insulin Insulin Disease Active Overview: [facility] dependent dependent Formattin L ukes diabetes diabetes g of [facility] ical mellitus mellitus note Center might be different from the original. IDDM Hyperlipid Hyperlipid Disease Active [facility] emia emia [facility] HTN HTN Disease Active [facility] (hypertens (hypertens Sushma kes ion) ion) Medical Center GERD GERD Disease Active [facility] (gastroeso (gastroeso Sushma kes phageal phageal Medical reflux reflux Center disease) disease) Anemia Anemia Disease Active [facility] Acute Acute Disease Active [facility] respirator [...] Thrombocyt Thrombocyt Disease Active [facility] openia openia [facility] Hyperglyce Hyperglyce Disease Active [facility] brien brien [facility] Allergies, Adverse Reactions, Alerts Allergy Allergy Status Severity Reaction(s) Onset Inactive Treating Comm ents Source Name Type Date Date Clinician NO KNOWN Drug Active Univers ALLERGIE Class ity of S [place] [facility] Family History Family Member Diagnosis Comments Start Date Stop Date Source Natural father Diabetes [facility] Natural mother Diabetes [facility] Social History Social Habit Start Date Stop Date Quantity Comments Source Exposure to 2022-05-15 2022-05-25 Not sure [facility] SARS-CoV-2 00:00:00 07:04:00 [place] Medical (event) Branch History [facility] 2019-03-11 2019-03-11 5 University o f Financial 00:00:00 00:00:00 [place] [facility] History [facility] Food 2019-03-11 2019-03-11 1 Univers ity of Worry 00:00:00 00:00:00 [place] [facility] History [facility] Food 2019-03-11 2019-03-11 1 Univers ity of Scarcity 00:00:00 00:00:00 [place] [facility] History [facility] 2019-03-11 2019-03-11 2 University o f Transport Med 00:00:00 00:00:00 [place] Medic al Branch History [facility] 2019-03-11 2019-03-11 2 University o f Transport Non-Med 00:00:00 00:00:00 [place] M edical Branch Education 2019-03-10 2019-03-10 12 University of 00:00:00 00:00:00 [facility] Branch Alcohol intake 2017-10-24 2017-10-[address] Fernanda es 00:00:00 00:00:00 non-drinker of Medical Ce nter alcohol (finding) Tobacco use and 2017-09-30 2017-09-[address] Sushma kes exposure 00:00:00 00:00:00 Medical Center Tobacco Comment 2017-09-30 2017-09-30 quit 2016 ROE Lara 00:00:00 00:00:00 Medical Center History of 1972-06-16 2016-07-08 Cigarette Smoker Universi ty of tobacco use 00:00:00 00:00:00 [facility] Sex Ass[birth year] At [birth year] ROE Lara 00:00:00 00:00:00 Medical Center Smoking Status Start Date Stop Date Source Ex-smoker 2022-01-01 00:00:00 2022-01-01 00:00:00 Universi ty of [facility] Medications Ordered Filled Start Stop Current Ordering Indication Dosage Frequency Signature Comments Components Source Medication Medication Date Date Medication? Clinician (SIG) Name Name ciprofloxac 2021-06- Yes [id number] 500mg Take 1 Univers in HCl 500 2-14 12-22 tablet by ity of mg tablet 00:00: 05:59 mouth [place] 00 :00 every 12 Medical (twelve) Branch hours for 7 days. ciprofloxac 2021-06- Yes [id number] 500mg Take 1 Univers in HCl 500 2-14 12-22 tablet by ity of mg tablet 00:00: 05:59 mouth [place] 00 :00 every 12 Medical (twelve) Branch hours for 7 days. ciprofloxac 2021-06- Yes [id number] 500mg Take 1 Univers in HCl 500 2-14 12-22 tablet by ity of mg tablet 00:00: 05:59 mouth [place] 00 :00 every 12 Medical (twelve) Branch hours for 7 days. ciprofloxac 2021-06- Yes [id number] 500mg Take 1 Univers in HCl 500 2-14 12-22 tablet by ity of mg tablet 00:00: 05:59 mouth [place] 00 :00 every 12 Medical (twelve) Branch hours for 7 days. ciprofloxac 2021-06- Yes [id number] 500mg Take 1 Univers in HCl 500 2-14 12-22 tablet by ity of mg tablet 00:00: 05:59 mouth [place] 00 :00 every 12 Medical (twelve) Branch hours for 7 days. ciprofloxac 2021-06- No [id number] 500mg Take 1 Univers in HCl 500 2-14 12-22 tablet by ity of mg tablet 00:00: 05:59 mouth [place] 00 :00 every 12 Medical (twelve) Branch hours for 7 days. acetaminoph 2021- Yes [id number] 1{tbl} Take 1 Un bruno en-codeine 2-12 tablet by ity of 300-30 mg 00:00: mouth [place] tablet 00 every 4 Medical (four) Branch hours as needed for Pain (scale 7-10) for up to 28 doses. Indication s: acute pain acetaminoph 2021-1 Yes [id number] 1{tbl} Take 1 Un bruno en-codeine 2-12 tablet by ity of 300-30 mg 00:00: mouth [place] tablet 00 every 4 Medical (four) Branch hours as needed for Pain (scale 7-10) for up to 28 doses. Indication s: acute pain acetaminoph 2021-1 Yes [id number] 1{tbl} Take 1 Un bruno en-codeine 2-12 tablet by ity of 300-30 mg 00:00: mouth [place] tablet 00 every 4 Medical (four) Branch hours as needed for Pain (scale 7-10) for up to 28 doses. Indication s: acute pain acetaminoph 2021- Yes [id number] 1{tbl} Take 1 Un bruno en-codeine 2-12 tablet by ity of 300-30 mg 00:00: mouth [place] tablet 00 every 4 Medical (four) Branch hours as needed for Pain (scale 7-10) for up to 28 doses. Indication s: acute pain acetaminoph 2021-1 Yes [id number] 1{tbl} Take 1 Un bruno en-codeine 2-12 tablet by ity of 300-30 mg 00:00: mouth [place] tablet 00 every 4 Medical (four) Branch hours as needed for Pain (scale 7-10) for up to 28 doses. Indication s: acute pain acetaminoph 2021-1 Yes [id number] 1{tbl} Take 1 Un bruno en-codeine 2-12 tablet by ity of 300-30 mg 00:00: mouth [place] tablet 00 every 4 Medical (four) Branch hours as needed for Pain (scale 7-10) for up to 28 doses. Indication s: acute pain acetaminoph 2021-1 Yes [id number] 1{tbl} Take 1 Un bruno en-codeine 2-12 tablet by ity of 300-30 mg 00:00: mouth [place] tablet 00 every 4 Medical (four) Branch hours as needed for Pain (scale 7-10) for up to 28 doses. Indication s: acute pain acetaminoph 2021-06 Yes [id number] 1{tbl} Take 1 Un bruno en-codeine 2-12 tablet by ity of 300-30 mg 00:00: mouth [place] tablet 00 every 4 Medical (four) Branch hours as needed for Pain (scale 7-10) for up to 28 doses. Indication s: acute pain acetaminoph 2021-06 Yes [id number] 1{tbl} Take 1 Un bruno en-codeine 2-12 tablet by ity of 300-30 mg 00:00: mouth [place] tablet 00 every 4 Medical (four) Branch hours as needed for Pain (scale 7-10) for up to 28 doses. Indication s: acute pain minocycline 2021-06- Yes [id number] 100mg Take 1 Univers 100 mg 2-12 12-23 capsule by ity of capsule 00:00: 05:59 mouth [place] 00 :00 every 12 Medical (twelve) Branch hours for 10 days. minocycline 2021-06- Yes [id number] 100mg Take 1 Univers 100 mg 2-12 12-23 capsule by ity of capsule 00:00: 05:59 mouth [place] 00 :00 every 12 Medical (twelve) Branch hours for 10 days. minocycline 2021-06- Yes [id number] 100mg Take 1 Univers 100 mg 2-12 12-23 capsule by ity of capsule 00:00: 05:59 mouth [place] 00 :00 every 12 Medical (twelve) Branch hours for 10 days. minocycline 2021-06- Yes [id number] 100mg Take 1 Univers 100 mg 2-12 12-23 capsule by ity of capsule 00:00: 05:59 mouth [place] 00 :00 every 12 Medical (twelve) Branch hours for 10 days. minocycline 2021-06- Yes [id number] 100mg Take 1 Univers 100 mg 2-12 12-23 capsule by ity of capsule 00:00: 05:59 mouth [place] 00 :00 every 12 Medical (twelve) Branch hours for 10 days. minocycline 2021-06- Yes [id number] 100mg Take 1 Univers 100 mg 2-12 12-23 capsule by ity of capsule 00:00: 05:59 mouth [place] 00 :00 every 12 Medical (twelve) Branch hours for 10 days. minocycline 2021-06- Yes [id number] 100mg Take 1 Univers 100 mg 2-12 12-23 capsule by ity of capsule 00:00: 05:59 mouth [place] 00 :00 every 12 Medical (twelve) Branch hours for 10 days. minocycline 2021-06- Yes [id number] 100mg Take 1 Univers 100 mg 2-12 12-23 capsule by ity of capsule 00:00: 05:59 mouth [place] 00 :00 every 12 Medical (twelve) Branch hours for 10 days. minocycline 2021-06- Yes [id number] 100mg Take 1 Univers 100 mg 2-12 12-23 capsule by ity of capsule 00:00: 05:59 mouth [place] 00 :00 every 12 Medical (twelve) Branch hours for 10 days. aspirin 81 2021-06 Yes 81mg Take 81 mg U nivers mg chewable 1-19 by mouth ity of tablet 00:08: daily. [address] Branch Cholecalcif 2021-06 Yes 1{tbl} Take 1 Un bruno julito, 1-19 tablet by ity of Vitamin D3, 00:08: mouth [place] 125 mcg 15 daily. Medical (5,000 Branch unit) tablet aspirin 81 2021-06 Yes 81mg Take 81 mg U nivers mg chewable 1-19 by mouth ity of tablet 00:08: daily. [address] Branch Cholecalcif 2021-06 Yes 1{tbl} Take 1 Un bruno julito, 1-19 tablet by ity of Vitamin D3, 00:08: mouth [place] 125 mcg 15 daily. Medical (5,000 Branch unit) tablet aspirin 81 2021-06 Yes 81mg Take 81 mg U nivers mg chewable 1-19 by mouth ity of tablet 00:08: daily. [address] Branch Cholecalcif 2021-06 Yes 1{tbl} Take [...] by mouth ity of tablet 00:08: daily. [place] [address] Medical Branch Cholecalcif 2021-06 Yes 1{tbl} Take 1 Un bruno julito, 1-19 tablet by ity of Vitamin D3, 00:08: mouth [place] 125 mcg 15 daily. Medical (5,000 Branch unit) tablet aspirin 81 2021-06 Yes 81mg Take 81 mg U nivers mg chewable 1-19 by mouth ity of tablet 00:08: daily. [place] [address] Medical Branch Cholecalcif 2021-06 Yes 1{tbl} Take 1 Un bruno julito, 1-19 tablet by ity of Vitamin D3, 00:08: mouth [place] 125 mcg 15 daily. Medical (5,000 Branch unit) tablet aspirin 2021-06 Yes 81mg Take 81 mg U nivers mg chewable 1-19 by mouth ity of tablet 00:08: daily. [place] [address] Medical Branch Cholecalcif 2021-06 Yes 1{tbl} Take 1 Un bruno julito, 1-19 tablet by ity of Vitamin D3, 00:08: mouth [place] 125 mcg 15 daily. Medical (5,000 Branch unit) tablet aspirin 2021-06 Yes 81mg Take 81 mg U nivers mg chewable 1-19 by mouth ity of tablet 00:08: daily. [place] [address] Medical Branch Cholecalcif 2021-06 Yes 1{tbl} Take 1 Un bruno julito, 1-19 tablet by ity of Vitamin D3, 00:08: mouth [place] 125 mcg 15 daily. Medical (5,000 Branch unit) tablet aspirin 81 2021-06 Yes 81mg Take 81 mg U nivers mg chewable 1-19 by mouth ity of tablet 00:08: daily. [place] 15 Medical Branch Cholecalcif 2021-06 Yes 1{tbl} Take 1 Un bruno julito, 1-19 tablet by ity of Vitamin D3, 00:08: mouth [place] 125 mcg 15 daily. Medical (5,000 Branch unit) tablet aspirin 81 2021-06 Yes 81mg Take 81 mg U nivers mg chewable 1-19 by mouth ity of tablet 00:08: daily. [place] [address] Medical Branch Cholecalcif 2021-06 Yes 1{tbl} Take 1 Un bruno julito, 1-19 tablet by ity of Vitamin D3, 00:08: mouth [place] 125 mcg 15 daily. Medical (5,000 Branch unit) tablet aspirin 2021-06 Yes 81mg Take 81 mg U nivers mg chewable 1-19 by mouth ity of tablet 00:08: daily. [place] [address] Medical Branch Cholecalcif 2021-06 Yes 1{tbl} Take 1 Un bruno julito, 1-19 tablet by ity of Vitamin D3, 00:08: mouth [place] 125 mcg 15 daily. Medical (5,000 Branch unit) tablet aspirin 2021-06 Yes 81mg Take 81 mg U nivers mg chewable 1-19 by mouth ity of tablet 00:08: daily. [place] [address] Medical Branch Cholecalcif 2021-06 Yes 1{tbl} Take 1 Un bruno julito, 1-19 tablet by ity of Vitamin D3, 00:08: mouth [place] 125 mcg 15 daily. Medical (5,000 Branch unit) tablet aspirin 2021-06 Yes 81mg Take 81 mg U nivers mg chewable 1-19 by mouth ity of tablet 00:08: daily. [place] [address] Medical Branch Cholecalcif 2021-06 Yes 1{tbl} Take 1 Un bruno julito, 1-19 tablet by ity of Vitamin D3, 00:08: mouth [place] 125 mcg 15 daily. Medical (5,000 Branch unit) tablet aspirin 2021-06 Yes 81mg Take 81 mg U nivers mg chewable 1-19 by mouth ity of tablet 00:08: daily. [place] [address] Medical Branch Cholecalcif 2021-06 Yes 1{tbl} Take 1 Un bruno julito, 1-19 tablet by ity of Vitamin D3, 00:08: mouth [place] 125 mcg 15 daily. Medical (5,000 Branch unit) tablet aspirin 2021-06 Yes 81mg Take 81 mg U nivers mg chewable 1-19 by mouth ity of tablet 00:08: daily. [place] [address] Medical Branch Cholecalcif 2021-06 Yes 1{tbl} Take 1 Un bruno julito, 1-19 tablet by ity of Vitamin D3, 00:08: mouth [place] 125 mcg 15 daily. Medical (5,000 Branch unit) tablet aspirin 2021-06 Yes 81mg Take 81 mg U nivers mg chewable 1-19 by mouth ity of tablet 00:08: daily. [place] [address] Medical Branch Cholecalcif 2021-06 Yes 1{tbl} Take 1 Un bruno julito, 1-19 tablet by ity of Vitamin D3, 00:08: mouth [place] 125 mcg 15 daily. Medical (5,000 Branch unit) tablet aspirin 2021-06 Yes 81mg Take 81 mg U nivers mg chewable 1-19 by mouth ity of tablet 00:08: daily. [place] [address] Medical Branch Cholecalcif 2021-06 Yes 1{tbl} Take 1 Un bruno julito, 1-19 tablet by ity of Vitamin D3, 00:08: mouth [place] 125 mcg 15 daily. Medical (5,000 Branch unit) tablet aspirin 2021-06 Yes 81mg Take 81 mg U nivers mg chewable 1-19 by mouth ity of tablet 00:08: daily. [place] [address] Medical Branch Cholecalcif 2021-06 Yes 1{tbl} Take 1 Un bruno julito, 1-19 tablet by ity of Vitamin D3, 00:08: mouth [place] 125 mcg 15 daily. Medical (5,000 Branch unit) tablet aspirin 2021-06 Yes 81mg Take 81 mg U nivers mg chewable 1-19 by mouth ity of tablet 00:08: daily. [place] [address] Medical Branch Cholecalcif 2021-06 Yes 1{tbl} Take 1 Un bruno julito, 1-19 tablet by ity of Vitamin D3, 00:08: mouth [place] 125 mcg 15 daily. Medical (5,000 Branch unit) tablet aspirin 2021-06 Yes 81mg Take 81 mg U nivers mg chewable 1-19 by mouth ity of tablet 00:08: daily. [place] [address] Medical Branch Cholecalcif 2021-06 Yes 1{tbl} Take 1 Un bruno julito, 1-19 tablet by ity of Vitamin D3, 00:08: mouth [place] 125 mcg 15 daily. Medical (5,000 Branch unit) tablet aspirin 2021-06 Yes 81mg Take 81 mg U nivers mg chewable 1-19 by mouth ity of tablet 00:08: daily. [place] [address] Medical Branch Cholecalcif 2021-06 Yes 1{tbl} Take 1 Un bruno julito, 1-19 tablet by ity of Vitamin D3, 00:08: mouth [place] 125 mcg 15 daily. Medical (5,000 Branch unit) tablet aspirin 81 2021-06 Yes 81mg Take 81 mg U nivers mg chewable 1-19 by mouth ity of tablet 00:08: daily. [place] [address] Medical Branch Cholecalcif 2021-06 Yes 1{tbl} Take 1 Un bruno julito, 1-19 tablet by ity of Vitamin D3, 00:08: mouth [place] 125 mcg 15 daily. Medical (5,000 Branch unit) tablet aspirin 81 2021-06 Yes 81mg Take 81 mg U nivers mg chewable 1-19 by mouth ity of tablet 00:08: daily. [place] [address] Medical Branch Cholecalcif 2021-06 Yes 1{tbl} Take 1 Un bruno julito, 1-19 tablet by ity of Vitamin D3, 00:08: mouth [place] 125 mcg 15 daily. Medical (5,000 Branch unit) tablet aspirin 2021-06 Yes 81mg Take 81 mg U nivers mg chewable 1-19 by mouth ity of tablet 00:08: daily. [place] [address] Medical Branch Cholecalcif 2021-06 Yes 1{tbl} Take 1 Un bruno julito, 1-19 tablet by ity of Vitamin D3, 00:08: mouth [place] 125 mcg 15 daily. Medical (5,000 Branch unit) tablet aspirin 81 2021-06 Yes 81mg Take 81 mg U nivers mg chewable 1-19 by mouth ity of tablet 00:08: daily. [place] [address] Medical Branch Cholecalcif 2021-06 Yes 1{tbl} Take 1 Un bruno julito, 1-19 tablet by ity of Vitamin D3, 00:08: mouth [place] 125 mcg 15 daily. Medical (5,000 Branch unit) tablet aspirin 81 2021-06 Yes 81mg Take 81 mg U nivers mg chewable 1-19 by mouth ity of tablet 00:08: daily. [place] [address] Medical Branch Cholecalcif 2021-06 Yes 1{tbl} Take 1 Un bruno julito, 1-19 tablet by ity of Vitamin D3, 00:08: mouth [place] 125 mcg 15 daily. Medical (5,000 Branch unit) tablet epoetin 2021-06- No 8000U 8,000 Univers az-epbx 1-18 11-18 Units, ity of (RETACRIT) 15:00: 17:21 Intravenou [place] injection 00 :00 s, Medical 8,000 Units DIALYSIS Bran ch ONCE - [facility], 1 dose, On Fri05/03/22 at 0900, Routine
[employer] member approving Restricted medication : ANTONIA LANGLEY methocarbam 2021-06 Yes [id number] 500mg Take 1 Univers oL 500 mg 1-18 tablet by ity o f tablet 00:00: mouth 4 00 (four) Medical times Branch daily as needed (muscle spasms). HYDROcodone 2021-06 Yes [id number] 1{tbl} Take 1 Un bruno -acetaminop 1-18 tablet by ity of hen 10-325 00:00: mouth [place] mg tablet 00 every 6 Medical (six) Branch hours as needed for Pain (scale 7-10). Indication s: acute pain gabapentin 2021-06 Yes [id number] 300mg Take 1 Univers 300 mg 1-18 capsule by ity of capsule 00:00: mouth in [place] the Medical morning Branch and 1 capsule in the evening. methocarbam 2021-06 Yes [id number] 500mg Take 1 Univers oL 500 mg 1-18 tablet by ity o f tablet 00:00: mouth 4 00 (four) Medical times Branch daily as needed (muscle spasms). HYDROcodone 2021-06 Yes [id number] 1{tbl} Take 1 Un bruno -acetaminop 1-18 tablet by ity of hen 10-325 00:00: mouth [place] mg tablet 00 every 6 Medical (six) Branch hours as needed for Pain (scale 7-10). Indication s: acute pain gabapentin 2021-06 Yes [id number] 300mg Take 1 Univers 300 mg 1-18 capsule by ity of capsule 00:00: mouth in [place] 00 the Medical morning Branch and 1 capsule in the evening. methocarbam 2021-06 Yes [id number] 500mg Take 1 Univers oL 500 mg 1-18 tablet by ity o f tablet 00:00: mouth 4 00 (four) Medical times Branch daily as needed (muscle spasms). HYDROcodone 2021-06 Yes [id number] 1{tbl} Take 1 Un bruno -acetaminop 1-18 tablet by ity of hen 10-325 00:00: mouth [place] mg tablet 00 every 6 Medical (six) Branch hours as needed for Pain (scale 7-10). Indication s: acute pain gabapentin 2021-06 Yes [id number] 300mg Take 1 Univers 300 mg 1-18 capsule by ity of capsule 00:00: mouth [place] 00 the Medical morning Branch and 1 capsule in the evening. methocarbam 2021-06 Yes [id number] 500mg Take 1 Univers oL 500 mg [...] Indication s: acute pain gabapentin 2021-06 Yes [id number] 300mg Take 1 Univers 300 mg 1-18 capsule by ity of capsule 00:00: mouth in [place] the Medical morning Branch and 1 capsule in the evening. methocarbam 2021-06 Yes [id number] 500mg Take 1 Univers oL 500 mg [...] Indication s: acute pain gabapentin 2021-06 Yes [id number] 300mg Take 1 Univers 300 mg 1-18 capsule by ity of capsule 00:00: mouth in [place] 00 the Medical morning Branch and 1 capsule in the evening. methocarbam 2021-06 Yes [id number] 500mg Take 1 Univers oL 500 mg 1-18 tablet by ity o f tablet 00:00: mouth 4 (four) Medical times Branch daily as needed (muscle spasms). HYDROcodone 2022-1 Yes 4647 1{tbl} Take 1 Un bruno -acetaminop 1-18 tablet by ity of hen 10-325 00:00: mouth [place] mg tablet 00 every 6 Medical (six) Branch hours as needed for Pain (scale 7-10). Indication s: acute pain gabapentin 2021-06 Yes [id number] 300mg Take 1 [facility] 300 mg 1-18 capsule by ity of capsule 00:00: mouth in 00 the Medical morning Branch and 1 capsule in the evening. methocarbam 2021-06 Yes [id number] 500mg Take 1 [facility] oL 500 mg [...] Indication s: acute pain gabapentin 2021-06 Yes [id number] 300mg Take 1 [facility] 300 mg 1-18 capsule by ity of capsule 00:00: mouth in [place] the Medical morning Branch and 1 capsule in the evening. methocarbam 2021-06 Yes [id number] 500mg Take 1 [facility] oL 500 mg [...] Indication s: acute pain gabapentin 2021-06 Yes [id number] 300mg Take 1 [facility] 300 mg 1-18 capsule by ity of capsule 00:00: mouth in [place] 00 the Medical morning Branch and 1 capsule in the evening. methocarbam 2021-06 Yes [id number] 500mg Take 1 [facility] oL 500 mg 1-18 tablet by ity o f tablet 00:00: mouth 4 00 (four) Medical times Branch daily as needed (muscle spasms). HYDROcodone 2021-06 Yes [id number] 1{tbl} Take 1 Un bruno -acetaminop 1-18 tablet by ity of hen 10-325 00:00: mouth [place] mg tablet 00 every 6 Medical (six) Branch hours as needed for Pain (scale 7-10). Indication s: acute pain gabapentin 2021-06 Yes [id number] 300mg Take 1 [facility] 300 mg 1-18 capsule by ity of capsule 00:00: mouth in [place] 00 the Medical morning Branch and 1 capsule in the evening. methocarbam 2021-06 Yes [id number] 500mg Take 1 [facility] oL 500 mg 1-18 tablet by ity o f tablet 00:00: mouth 4 00 (four) Medical times Branch daily as needed (muscle spasms). HYDROcodone 2021-06 Yes [id number] 1{tbl} Take 1 Un bruno -acetaminop 1-18 tablet by ity of hen 10-325 00:00: mouth [place] mg tablet 00 every 6 Medical (six) Branch hours as needed for Pain (scale 7-10). Indication s: acute pain gabapentin 2021-06 Yes [id number] 300mg Take 1 [facility] 300 mg 1-18 capsule by ity of capsule 00:00: mouth in [place] the Medical morning Branch and 1 capsule in the evening. methocarbam 2021-06 Yes [id number] 500mg Take 1 [facility] oL 500 mg [...] Indication s: acute pain gabapentin 2021-06 Yes [id number] 300mg Take 1 [facility] 300 mg 1-18 capsule by ity of capsule 00:00: mouth in [place] 00 the Medical morning Branch and 1 capsule in the evening. methocarbam 2021-06 Yes [id number] 500mg Take 1 [facility] oL 500 mg 1-18 tablet by ity o f tablet 00:00: mouth 4 00 (four) Medical times Branch daily as needed (muscle spasms). HYDROcodone 2021-06 Yes [id number] 1{tbl} Take 1 Un bruno -acetaminop 1-18 tablet by ity of hen 10-325 00:00: mouth [place] mg tablet 00 every 6 Medical (six) Branch hours as needed for Pain (scale 7-10). Indication s: acute pain gabapentin 2021-06 Yes [id number] 300mg Take 1 [facility] 300 mg 1-18 capsule by ity of capsule 00:00: mouth in [place] 00 the Medical morning Branch and 1 capsule in the evening. methocarbam 2021-06 Yes [id number] 500mg Take 1 [facility] oL 500 mg 1-18 tablet by ity o f tablet 00:00: mouth 4 00 (four) Medical times Branch daily as needed (muscle spasms). HYDROcodone 2021-06 Yes [id number] 1{tbl} Take 1 Un bruno -acetaminop 1-18 tablet by ity of hen 10-325 00:00: mouth [place] mg tablet 00 every 6 Medical (six) Branch hours as needed for Pain (scale 7-10). Indication s: acute pain gabapentin 2021-06 Yes [id number] 300mg Take 1 [facility] 300 mg 1-18 capsule by ity of capsule 00:00: mouth in [place] the Medical morning Branch and 1 capsule in the evening. methocarbam 2021-06 Yes [id number] 500mg Take 1 [facility] oL 500 mg [...] Indication s: acute pain gabapentin 2021-06 Yes [id number] 300mg Take 1 [facility] 300 mg 1-18 capsule by ity of capsule 00:00: mouth in [place] 00 the Medical morning Branch and 1 capsule in the evening. methocarbam 2021-06 Yes [id number] 500mg Take 1 [facility] oL 500 mg [...] Indication s: acute pain gabapentin 2021-06 Yes [id number] 300mg Take 1 [facility] 300 mg 1-18 capsule by ity of capsule 00:00: mouth in [place] 00 the Medical morning Branch and 1 capsule in the evening. methocarbam 2021-06 Yes [id number] 500mg Take 1 [facility] oL 500 mg 1-18 tablet by ity o f tablet 00:00: mouth 4 00 (four) Medical times Branch daily as needed (muscle spasms). HYDROcodone 2021-06 Yes [id number] 1{tbl} Take 1 Un bruno -acetaminop 1-18 tablet by ity of hen 10-325 00:00: mouth [place] mg tablet 00 every 6 Medical (six) Branch hours as needed for Pain (scale 7-10). Indication s: acute pain gabapentin 2021-06 Yes [id number] 300mg Take 1 [facility] 300 mg 1-18 capsule by ity of capsule 00:00: mouth in [place] the Medical morning Branch and 1 capsule in the evening. methocarbam 2021-06 Yes [id number] 500mg Take 1 [facility] oL 500 mg [...] Indication s: acute pain gabapentin 2021-06 Yes [id number] 300mg Take 1 [facility] 300 mg 1-18 capsule by ity of capsule 00:00: mouth in [place] 00 the Medical morning Branch and 1 capsule in the evening. methocarbam 2021-06 Yes [id number] 500mg Take 1 [facility] oL 500 mg 1-18 tablet by ity o f tablet 00:00: mouth 4 00 (four) Medical times Branch daily as needed (muscle spasms). HYDROcodone 2021-06 Yes [id number] 1{tbl} Take 1 Un bruno -acetaminop 1-18 tablet by ity of hen 10-325 00:00: mouth [place] mg tablet 00 every 6 Medical (six) Branch hours as needed for Pain (scale 7-10). Indication s: acute pain gabapentin 2021-06 Yes [id number] 300mg Take 1 [facility] 300 mg 1-18 capsule by ity of capsule 00:00: mouth in [place] 00 the Medical morning Branch and 1 capsule in the evening. methocarbam 2021-06 Yes [id number] 500mg Take 1 [facility] oL 500 mg 1-18 tablet by ity o f tablet 00:00: mouth 4 00 (four) Medical times Branch daily as needed (muscle spasms). HYDROcodone 2021-06 Yes [id number] 1{tbl} Take 1 Un bruno -acetaminop 1-18 tablet by ity of hen 10-325 00:00: mouth [place] mg tablet 00 every 6 Medical (six) Branch hours as needed for Pain (scale 7-10). Indication s: acute pain gabapentin 2021-06 Yes [id number] 300mg Take 1 [facility] 300 mg 1-18 capsule by ity of capsule 00:00: mouth in [place] the Medical morning Branch and 1 capsule in the evening. methocarbam 2021-06 Yes [id number] 500mg Take 1 [facility] oL 500 mg [...] Indication s: acute pain gabapentin 2021-06 Yes [id number] 300mg Take 1 [facility] 300 mg 1-18 capsule by ity of capsule 00:00: mouth in [place] 00 the Medical morning Branch and 1 capsule in the evening. methocarbam 2021-06 Yes [id number] 500mg Take 1 [facility] oL 500 mg 1-18 tablet by ity o f tablet 00:00: mouth 4 00 (four) Medical times Branch daily as needed (muscle spasms). HYDROcodone 2021-06 Yes [id number] 1{tbl} Take 1 Un bruno -acetaminop 1-18 tablet by ity of hen 10-325 00:00: mouth [place] mg tablet 00 every 6 Medical (six) Branch hours as needed for Pain (scale 7-10). Indication s: acute pain gabapentin 2021-06 Yes [id number] 300mg Take 1 [facility] 300 mg 1-18 capsule by ity of capsule 00:00: mouth in [place] 00 the Medical morning Branch and 1 capsule in the evening. methocarbam 2021-06 Yes [id number] 500mg Take 1 [facility] oL 500 mg 1-18 tablet by ity o f tablet 00:00: mouth 4 00 (four) Medical times Branch daily as needed (muscle spasms). HYDROcodone 2021-06 Yes [id number] 1{tbl} Take 1 Un bruno -acetaminop 1-18 tablet by ity of hen 10-325 00:00: mouth [place] mg tablet 00 every 6 Medical (six) Branch hours as needed for Pain (scale 7-10). Indication s: acute pain gabapentin 2021-06 Yes [id number] 300mg Take 1 [facility] 300 mg 1-18 capsule by ity of capsule 00:00: mouth in [place] 00 the Medical morning Branch and 1 capsule in the evening. methocarbam 2021-06 Yes [id number] 500mg Take 1 [facility] oL 500 mg [...] Indication s: acute pain gabapentin 2021-06 Yes [id number] 300mg Take 1 [facility] 300 mg 1-18 capsule by ity of capsule 00:00: mouth in [place] 00 the Medical morning Branch and 1 capsule in the evening. methocarbam 2021-06 Yes [id number] 500mg Take 1 [facility] oL 500 mg [...] Indication s: acute pain gabapentin 2021-06 Yes [id number] 300mg Take 1 [facility] 300 mg 1-18 capsule by ity of capsule 00:00: mouth in [place] 00 the Medical morning Branch and 1 capsule in the evening. methocarbam 2021-06 Yes [id number] 500mg Take 1 [facility] oL 500 mg [...] Indication s: acute pain gabapentin 2021-06 Yes [id number] 300mg Take 1 [facility] 300 mg 1-18 capsule by ity of capsule 00:00: mouth in [place] 00 the Medical morning Branch and 1 capsule in the evening. methocarbam 2021-06 Yes [id number] 500mg Take 1 [facility] oL 500 mg 1-18 tablet by ity o f tablet 00:00: mouth 4 [place] 00 (four) Medical times Branch daily as needed (muscle spasms). HYDROcodone 2021-06 Yes [id number] 1{tbl} Take 1 Un bruno -acetaminop 1-18 tablet by ity of hen 10-325 00:00: mouth [place] mg tablet 00 every 6 Medical (six) Branch hours as needed for Pain (scale 7-10). Indication s: acute pain gabapentin 2021-06 Yes [id number] 300mg Take 1 [facility] 300 mg 1-18 capsule by ity of capsule 00:00: mouth in [place] 00 the Medical morning Branch and 1 capsule in the evening. docusate 2021-06- Yes [id number] 100mg Take 1 [facility] 100 mg 1-18 12-04 capsule by ity of capsule 00:00: 05:59 mouth in [place] 00 :00 the Medical morning Branch for 15 days. docusate 2021-06- Yes [id number] 100mg Take 1 [facility] 100 mg 1-18 12-04 capsule by ity of capsule 00:00: 05:59 mouth in [place] 00 :00 the Medical morning Branch for 15 days. docusate 2021-06- Yes [id number] 100mg Take 1 [facility] 100 mg 1-18 12-04 capsule by ity of capsule 00:00: 05:59 mouth in [place] 00 :00 the [facility] morning Branch for 15 days. docusate 2021-06- Yes [id number] 100mg Take 1 [facility] 100 mg 1-18 12-04 capsule by ity of capsule 00:00: 05:59 mouth in [place] 00 :00 the [facility] morning [place] for 15 days. docusate 2021-06- Yes [id number] 100mg Take 1 [facility] 100 mg 1-18 12- capsule by ity of capsule 00:00: 05:59 mouth in [place] 00 :00 the [facility] for 15 days. docusate 2021-06- Yes [id number] 100mg Take 1 [facility] 100 mg 1-18 12- capsule by ity of capsule 00:00: 05:59 mouth in [place] 00 :00 the [facility] for 15 days. gabapentin 2021-06- No [id number] 300mg Take 1 [facility] 300 mg 1-18 -18 capsule by ity of capsule 00:00: 00:00 mouth in [place] 00 :00 the [facility] and 1 capsule in the evening. Do all this for 21 days. HYDROcodone 2021-06- No [id number] 1{tbl} Take 1 U nivers -acetaminop 1-18 11-18 tablet by it y of hen 10-325 00:00: 00:00 mouth [place] mg tablet 00 :00 every 6 Medical (six) Branch hours as needed for Pain (scale 7-10) for up to 7 days. Indication s: acute pain methocarbam 2021-06- No [id number] 500mg Take 1 [facility] oL 500 mg [...] First dose Medi tom 40 mg on [place] Branch 04/21/22 at 0900, Until Discontinu ed, [...] - 13 Starting Medical dialysis on Fri [place] catheter 04/15/22 care at 1941, Until Discontinu [...] 0-28 Oral, ity of 3350 powder 12:58: [id number], [place] 17 g 09 Starting Medical on Fri Branch 04/12/22 at 0758, Until Discontinu ed, Routine, no bm polyethylen 2021-06 Yes 17g 17 g, Unive rs e glycol 0-28 Oral, ity of 3350 powder 12:58: [id number], [place] 17 g 09 Starting Medical on Fri Branch 04/12/22 at 0758, Until Discontinu ed, Routine, no bm FENTanyl 2021-06- No Patient Unive rs 1000 004-16 [place] ity of mcg/100 mL 07:00: 20:48 Dose: 10 [place] 0.9% NaCl 00 :19 mcg
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
Basal Rate: [...] INITIAL INFUSION RATE.&nbsp ; _ &nb sp;FOR [facility], AND [facility] ONLY &nbs p; - aPTT < 35: [...] INITIAL INFUSION RATE.&nbsp ; _ &nb sp;FOR [facility], [facility], AND [facility] ONLY &nbs p; - aPTT [...] Rang e, Dosing and Testing: &nbs p;FOR [facility], [facility], AND [facility] ONLY - aPTT < 35: & nbsp;Bolus [...] 1 g in 01:17: 05:19 on Fri [place] sodium 00 :24 04/10/22 Medical chloride at 2017, Branch 0.9 % Until [place] irrigation 04/11/22 at 0019, 1,000 mL, Intra-op thrombin 2021-06- No PRN, Univers (recombinan 04-11 Starting ity of t) 01:17: 05:19 on Fri [place] (RECOTHROM) 00 :24 04/10/22 Medi tom topical [...] [place] mL vial) 00 :45 on [facility] 04/10/22 Branch at 1813, Until Discontinu ed, [...] - 08 Starting Medical dialysis on Fri [place] catheter 04/10/22 care at 0830, Until Discontinu [...] Medica l 0.3 mL ONCE PRN - [facility], 1 dose, Starting on Fri04/08/22 at 1514, Until Fri04/08/22 at 1520, Routine, Surgery/Pr ocedure aspirin 2021-06 Yes 81mg 81 mg, Univers chewable 0-24 Oral, ity of tablet 81 15:30: DAILY, [place] mg 00 First dose Medical on [facility] 04/08/22 at 1030, Until Discontinu ed, Routine aspirin 2021-06 Yes 81mg 81 mg, Univers chewable 0-24 Oral, ity of tablet 81 15:30: DAILY, [place] mg 00 First dose Medical on [facility] 04/08/22 at 1030, Until Discontinu ed, Routine aspirin 2021-06 Yes 81mg 81 mg, Univers chewable 0-24 Oral, ity of tablet 81 15:30: DAILY, [place] mg 00 First dose Medical on [facility] 04/08/22 at 1030, Until Discontinu ed, Routine aspirin 2021-06 Yes 81mg 81 mg, Univers chewable 0-24 Oral, ity of tablet 81 15:30: DAILY, [place] mg 00 First dose Medical on [facility] 04/08/22 at 1030, Until Discontinu ed, Routine [...] as 1000 mL for 00 :17 04/08/22 [facility] tom vascular at 0753, Branch Intra-op clopidogreL 2021-06 Yes 75mg 75 mg, Univ ers (PLAVIX) 75 0-23 Oral, ity of mg tablet 14:00: DAILY, [place] 75 mg 00 First dose Medical on [facility] 04/07/22 at 0900, Until Discontinu ed, Routine clopidogreL 2021-06 Yes 75mg 75 mg, Univ ers (PLAVIX) 75 0-23 Oral, ity of mg tablet 14:00: DAILY, [place] 75 mg 00 First dose Medical on [facility] 04/07/22 at 0900, Until Discontinu ed, Routine clopidogreL 2021-06 Yes 75mg 75 mg, Univ ers (PLAVIX) 75 0-23 Oral, ity of mg tablet 14:00: DAILY, [place] 75 mg 00 First dose Medical on [facility] 04/07/22 at 0900, Until Discontinu ed, Routine clopidogreL 2021-06 Yes 75mg 75 mg, Univ ers (PLAVIX) 75 0-23 Oral, ity of mg tablet 14:00: DAILY, [place] 75 mg 00 First dose Medical on [facility] 04/07/22 at 0900, Until Discontinu ed, Routine metoprolol 2021-06 Yes 25mg 25 mg, Unive rs succinate 0-23 Oral, BID, ity of XL (TOPROL 13:00: First dose [place] XL) tablet 00 on [facility] 25 mg 04/07/22 Branch at 0800, Until Discontinu ed, Routine metoprolol 2021-06 Yes 25mg 25 mg, Unive rs succinate 0-23 Oral, BID, ity of XL (TOPROL 13:00: First dose [place] XL) tablet 00 on [facility] 25 mg 04/07/22 Branch at 0800, Until Discontinu ed, Routine metoprolol 2021-06 Yes 25mg 25 mg, Unive rs succinate 0-23 Oral, BID, ity of XL (TOPROL 13:00: First dose [place] XL) tablet 00 on [place] [facility] 25 mg 04/07/22 Branch at 0800, Until Discontinu ed, Routine metoprolol 2021-06 No 25mg 25 mg, Univ ers succinate 0-23 11-09 Oral, BID, ity of XL (TOPROL 13:00: 06:27 First dose [place] XL) tablet 00 :38 on [place] [facility] 25 mg 04/07/22 Branch at 0800, Until Discontinu ed, Routine vancomycin 2021-06 No 15mg/kg 1,000 mg Univers (VANCOCIN) 04-06 (rounded ity of 1,000 mg in 18:45: 19:48 from 1,056 [place] NaCl 0.9% 00 :00 mg = 15 Medical (NS) 250 mL mg/kg Branch VIAL-MATE ?70.4 kg), IV IV piggyback Piggyback, ONCE, 1 dose, On [facility] 04/06/22 at 1345, Administer over 60 Minutes, 250 mL
Reas on for Anti-Infec tive: Documented Infection< br>Documen rudolph Infection Site: Skin / Soft Tissue
Duration of Therapy: 7 days sevelamer 2021-06 Yes 800mg 800 mg, Univ ers (RENVELA) 0-22 Oral, TID ity o f tablet 800 13:00: MEALS, [place] mg 00 First dose Medical on [facility] 04/06/22 at 0800, Until Discontinu ed, Routine sevelamer 2021-06 Yes 800mg 800 mg, Univ ers (RENVELA) 0-22 Oral, TID ity o f tablet 800 13:00: MEALS, [place] mg 00 First dose Medical on [facility] 04/06/22 at 0800, Until Discontinu ed, Routine sevelamer 2021-06 Yes 800mg 800 mg, Univ ers (RENVELA) 0-22 Oral, TID ity o f tablet 800 13:00: MEALS, [place] mg 00 First dose Medical on [facility] 04/06/22 at 0800, Until Discontinu ed, [...] of 1,000 mg in 05:00: 04:59 Piggyback, [place] NaCl 0.9% 00 :00 Q24H ABX, Medic [...] of 1,000 mg in 05:00: 05:34 Piggyback, [place] NaCl 0.9% 00 :00 Q24H ABX, Medic [...] ity of tablet 4 mg 04:46: Q4HPRN, Lusi Alberto as 28 Starting Medical on Fri [...] First dose [place] mg 00 on [facility] 04/05/22 Branch at 2100, Until Discontinu ed, Routine atorvastati 2021-06 Yes 10mg 10 mg, Univ ers n (LIPITOR) 0-22 Oral, QHS, it y of tablet 10 02:00: First dose [place] mg 00 on [facility] 04/05/22 Branch at 2100, Until Discontinu ed, Routine atorvastati 2021-06 Yes 10mg 10 mg, Univ ers n (LIPITOR) 0-22 Oral, QHS, it y of tablet 10 02:00: First dose [place] mg 00 on [facility] 04/05/22 Branch at 2100, Until Discontinu ed, Routine atorvastati 2021-06 Yes 10mg 10 mg, Univ ers n (LIPITOR) 0-22 Oral, QHS, it y of tablet 10 02:00: First dose [place] mg 00 on [facility] 04/05/22 Branch at 2100, Until Discontinu ed, Routine losartan 2021-06 Yes 50mg 50 mg, Univers (COZAAR) 0-22 Oral, BID, ity o f tablet 50 01:00: First dose [place] mg 00 on Fri [facility] 04/05/22 Branch at 1999, Until Discontinu [...] [place] mg 00 :23 on Fri [facility] 04/05/22 Branch at 1999, Until Discontinu ed, Routine felodipine 2021-06 No 5mg 5 mg, Unive rs (PLENDIL) 0-22 10-27 Oral, BID, ity of 24 hr 01:00: 13:17 First dose [place] tablet 5 mg 00 :23 on Fri Medica l 04/05/22 Branch at 2000, Until Discontinu ed, Routine ergocalcife 2021-06 Yes [id number] 50,000 Un bruno rol 0-21 Units, ity of (vitamin 23:30: Oral, [place] d2) 00 QWEEKLY, Medical (CALCIFEROL First dose Br anch ) capsule on Fri04/05/22 Units at 1830, Until Discontinu ed, Routine ergocalcife 2021-06 Yes [id number] 50,000 Un bruno rol 0-21 Units, ity of (vitamin 23:30: Oral, [place] d2) 00 QWEEKLY, Medical (CALCIFEROL First dose Br anch ) capsule on Fri04/05/22 Units at 1830, Until Discontinu ed, Routine ergocalcife 2021-06 Yes [id number] 50,000 Un bruno rol 0-21 Units, ity of (vitamin 23:30: Oral, [place] d2) 00 QWEEKLY, Medical (CALCIFEROL First dose Br anch ) capsule on Fri 5004/05/22 Units at 1830, Until Discontinu ed, Routine ergocalcife 2021-06 Yes [id number] 50,000 Un bruno rol 0-21 Units, ity [...] Medical (NS) 250 mL mg/kg ?74 [facility] VIAL-MATE kg), IV IV Piggyback, piggyback ONCE, [...] Subcutaneo ity o f (LANTUS 02:00: us, [facility], [place] U-100) 00 First dose Medical injection [...] Subcutaneo ity o f (LANTUS 02:00: us, [facility], [place] U-100) 00 First dose Medical injection on [place] Branch 15 Units 04/04/22 at 2100, Until Discontinu ed, Routine Sliding 2021-06 Yes Subcutaneo Univ ers Scale 0-21 us, TID ity of Insulin - 02:00: MEALS+HS, Luis Alberto as Lispro 00 First dose Medical (HumaLOG) + on [facility] Branch [facility] 04/04/22 Testing at 2100, Until Discontinu ed, Routine insulin 2021-06 Yes 15U 15 Units, Unive rs glargine 0-21 Subcutaneo ity o f (LANTUS 02:00: us, [facility], [place] U-100) 00 First dose Medical injection on [facility] Branch 15 Units 04/04/22 at 2100, Until Discontinu ed, Routine Sliding 2021-06 Yes Subcutaneo [facility] ers Scale 0-21 us, TID ity of Insulin - 02:00: MEALS+HS, [place] as Lispro 00 First dose Medical (HumaLOG) + on [facility] Branch [facility] 04/04/22 Testing at 2100, Until Discontinu ed, Routine insulin 2021-06 Yes 15U 15 Units, Unive rs glargine 0-21 Subcutaneo ity o f (LANTUS 02:00: us, [facility], [place] U-100) 00 First dose Medical injection on [facility] Branch 15 Units 04/04/22 at 2100, Until Discontinu ed, Routine apixaban 2021-06 No 2.5mg 2.5 mg, Univ ers (ELIQUIS) 04-06 Oral, BID, ity of tablet 2.5 01:00: 06:23 First dose [place] mg 00 :22 on [facility] Medical 04/04/22 Branch at 2000, Until Discontinu ed, Routine
Indicatio ns: Non-Valvul ar Atrial Fibrillati on HYDROcodone 2021-06 Yes 1{tbl} 1 tablet, Univers -acetaminop 0-20 Oral, ity of hen (NORCO) 23:48: Q6HPRN, Luis Alberto as 10-325 mg 03 Starting Medica l tablet 1 on [facility] Branch tablet 04/04/22 at 1848, Until Discontinu [...] 0-20 Oral, ity of (TYLENOL) 23:47: Q6HPRN, [place] tablet 650 56 Starting Medic al mg on [facility] Branch 04/04/22 at 1847, Until Discontinu ed, Routine, Pain (scale 1-3) acetaminoph 2021-06 Yes 650mg 650 mg, Un bruno en 0-20 Oral, ity of (TYLENOL) 23:47: Q6HPRN, [place] tablet 650 56 Starting Medic al mg on [facility] Branch 04/04/22 at 1847, Until Discontinu ed, Routine, Pain (scale 1-3) acetaminoph 2021-06 Yes 650mg 650 mg, Un bruno en 0-20 Oral, ity of (TYLENOL) 23:47: Q6HPRN, [place] tablet 650 56 Starting Medic al mg on [facility] Branch 04/04/22 at 1847, Until Discontinu ed, Routine, Pain (scale 1-3) acetaminoph 2021-06 Yes 650mg 650 mg, Un bruno en 0-20 Oral, ity of (TYLENOL) 23:47: Q6HPRN, [place] tablet 650 56 [facility] at 1847, Until Discontinu ed, Routine, Pain (scale 1-3) glucagon 2021-06 Yes 1mg 1 mg, Univers (GLUCAGEN 0-20 Intramuscu ity of DIAGNOSTIC 23:44: lar, PRN, [place] KIT) 11 Starting Medical injection 1 on [facility] 04/04/22 at 1844, Until Discontinu ed, GASPER, Blood Glucose < or = 70 mg/dL and patient is unable to swallow or has mental changes. dextrose 50 2021-06 Yes 25mL 25 mL, Univ ers % in water 0-20 Slow IV ity of (D50W) 23:44: Push, PRN, [place] injection 11 Starting Medica l 25 mL on [facility] 04/04/22 at 1844, Until Discontinu ed, GASPER, Blood Glucose < or = 70 mg/dL and patient is unable to swallow or has mental status changes. glucagon 2021-06 Yes 1mg 1 mg, Univers (GLUCAGEN 0-20 Intramuscu ity of DIAGNOSTIC 23:44: lar, PRN, [place] KIT) 11 Starting Medical injection 1 on [facility] 04/04/22 at 1844, Until Discontinu ed, GASPER, Blood Glucose < or = 70 mg/dL and patient is unable to swallow or has mental changes. dextrose 50 2021-06 Yes 25mL 25 mL, Univ ers % in water 0-20 Slow IV ity of (D50W) 23:44: Push, PRN, [place] injection 11 Starting Medica l 25 mL on [facility] 04/04/22 at 1844, Until Discontinu ed, GASPER, Blood Glucose < or = 70 mg/dL and patient is unable to swallow or has mental status changes. glucagon 2021-06 Yes 1mg 1 mg, Univers (GLUCAGEN 0-20 Intramuscu ity of DIAGNOSTIC 23:44: lar, PRN, [place] KIT) 11 Starting Medical injection 1 on [facility] 04/04/22 at 1844, Until Discontinu ed, [...] by mouth ity of tablet 17:22: daily. [place] 49 Medical Branch Cholecalcif 2021-06 Yes 1{tbl} Take 1 Un bruno julito, 0-20 tablet by ity of Vitamin D3, 17:22: mouth [place] 125 mcg 49 daily. Medical (5,000 Branch unit) tablet aspirin 81 2021-06 Yes 81mg Take 81 mg U nivers mg chewable 0-20 by mouth ity of tablet 17:22: daily. [address] Branch Cholecalcif 2021-06 Yes 1{tbl} Take 1 Un bruno julito, 0-20 tablet by ity of Vitamin D3, 17:22: mouth [place] 125 mcg 49 daily. Medical (5,000 Branch unit) tablet aspirin 81 2021-06 Yes 81mg Take 81 mg U nivers mg chewable 0-20 by mouth ity of tablet 17:22: daily. [address] Branch Cholecalcif 2021-06 Yes 1{tbl} Take 1 Un bruno julito, 0-20 tablet by ity of Vitamin D3, 17:22: mouth [place] 125 mcg 49 daily. Medical (5,000 Branch unit) tablet aspirin 81 2021-06 Yes 81mg Take 81 mg U nivers mg chewable 0-20 by mouth ity of tablet 17:22: daily. [address] Cholecalcif 2021-06 Yes 1{tbl} Take 1 Un bruno julito, 0-20 tablet by ity of Vitamin D3, 17:22: mouth [place] 125 mcg 49 daily. Medical (,000 Branch unit) tablet aspirin 81 2021-06 Yes 81mg Take 81 mg [facility] mg chewable 0-20 by mouth ity of tablet 17:22: daily. [address] Cholecalcif 2021-06 Yes 1{tbl} Take 1 [facility] julito, 0-20 tablet by ity of Vitamin D3, 17:22: mouth [place] 125 mcg 49 daily. Medical (,000 Branch unit) tablet aspirin 81 2021-06 Yes 81mg Take 81 mg U nivers mg chewable 0-20 by mouth ity of tablet 17:22: daily. [address] Cholecalcif 2021-06 Yes 1{tbl} Take 1 [...] 03/29/22 at 1730, Routine sulfamethox 2021-06 Yes [id number] 1{tbl} Take 1 [facility] azole-trime 0-14 tablet by ity of thoprim 00:00: mouth [place] 400-80 mg 00 every 12 Medica l per tablet (twelve) Branc h hours. sulfamethox 2021-06 Yes [id number] 1{tbl} Take 1 [facility] azole-trime 0-14 tablet by ity of thoprim 00:00: mouth [place] 400-80 mg 00 every 12 Medica l per tablet (twelve) Branc h hours. sulfamethox 2021-06 Yes [id number] 1{tbl} Take 1 [facility] azole-trime 0-14 tablet by ity of thoprim 00:00: mouth [place] 400-80 mg 00 every 12 Medica l per tablet (twelve) Branc h hours. sulfamethox 2021-06 Yes [id number] 1{tbl} Take 1 [facility] azole-trime 0-14 tablet by ity of thoprim 00:00: mouth [place] 400-80 mg 00 every 12 Medica l per tablet (twelve) Branc h hours. sulfamethox 2021-06 Yes [id number] 1{tbl} Take 1 [facility] azole-trime 0-14 tablet by ity of thoprim 00:00: mouth [place] 400-80 mg 00 every 12 Medica l per tablet (twelve) Branc h hours. sulfamethox 2021-06 Yes [id number] 1{tbl} Take 1 [facility] azole-trime 0-14 tablet by ity of thoprim 00:00: mouth [place] 400-80 mg 00 every 12 Medica l per tablet (twelve) Branc h hours. sulfamethox 2021-06 Yes [id number] 1{tbl} Take 1 [facility] azole-trime 0-14 tablet by ity of thoprim 00:00: mouth [place] 400-80 mg 00 every 12 Medica l per tablet (twelve) Branc h hours. sulfamethox 2021-06 Yes [id number] 1{tbl} Take 1 [facility] azole-trime 0-14 tablet by ity of thoprim 00:00: mouth [place] 400-80 mg 00 every 12 Medica l per tablet (twelve) Branc h hours. sulfamethox 2021-06 Yes [id number] 1{tbl} Take 1 [facility] azole-trime 0-14 tablet by ity of thoprim 00:00: mouth [place] 400-80 mg 00 every 12 Medica l per tablet (twelve) Branc h hours. sulfamethox 2021-06 Yes [id number] 1{tbl} Take 1 [facility] azole-trime 0-14 tablet by ity of thoprim 00:00: mouth [place] 400-80 mg 00 every 12 Medica l per tablet (twelve) Branc h hours. sulfamethox 2021-06 Yes [id number] 1{tbl} Take 1 [facility] azole-trime 0-14 tablet by ity of thoprim 00:00: mouth [place] 400-80 mg 00 every 12 Medica l per tablet (twelve) Branc h hours. sulfamethox 2021-06 Yes [id number] 1{tbl} Take 1 [facility] azole-trime 0-14 tablet by ity of thoprim 00:00: mouth [place] 400-80 mg 00 every 12 Medica l per tablet (twelve) Branc h hours. sulfamethox 2021-06 Yes [id number] 1{tbl} Take 1 [facility] azole-trime 0-14 tablet by ity of thoprim 00:00: mouth [place] 400-80 mg 00 every 12 Medica l per tablet (twelve) Branc h hours. sulfamethox 2021-06 Yes [id number] 1{tbl} Take 1 [facility] azole-trime 0-14 tablet by ity of thoprim 00:00: mouth [place] 400-80 mg 00 every 12 Medica l per tablet (twelve) Branc h hours. sulfamethox 2021- Yes [id number] 1{tbl} Take 1 [facility] azole-trime 0-14 tablet by ity of thoprim 00:00: mouth [place] 400-80 mg 00 every 12 Medica l per tablet (twelve) Branc h hours. sulfamethox 2021- Yes [id number] 1{tbl} Take 1 [facility] azole-trime 0-14 tablet by ity of thoprim 00:00: mouth [place] 400-80 mg 00 every 12 Medica l per tablet (twelve) Branc h hours. sulfamethox 2021- Yes [id number] 1{tbl} Take 1 [facility] azole-trime 0-14 tablet by ity of thoprim 00:00: mouth [place] 400-80 mg 00 every 12 Medica l per tablet (twelve) Branc h hours. sulfamethox 2021-06 Yes [id number] 1{tbl} Take 1 [facility] azole-trime 0-14 tablet by ity of thoprim 00:00: mouth [place] 400-80 mg 00 every 12 Medica l per tablet (twelve) Branc h hours. sulfamethox 2021-06 Yes [id number] 1{tbl} Take 1 [facility] azole-trime 0-14 tablet by ity of thoprim 00:00: mouth [place] 400-80 mg 00 every 12 Medica l per tablet (twelve) Branc h hours. sulfamethox 2021-06 Yes [id number] 1{tbl} Take 1 [facility] azole-trime 0-14 tablet by ity of thoprim 00:00: mouth [place] 400-80 mg 00 every 12 Medica l per tablet (twelve) Branc h hours. sulfamethox 2021-06 Yes [id number] 1{tbl} Take 1 [facility] azole-trime 0-14 tablet by ity of thoprim 00:00: mouth [place] 400-80 mg 00 every 12 Medica l per tablet (twelve) Branc h hours. sulfamethox 2021-06 Yes [id number] 1{tbl} Take 1 [facility] azole-trime 0-14 tablet by ity of thoprim 00:00: mouth [place] 400-80 mg 00 every 12 Medica l per tablet (twelve) Branc h hours. sulfamethox 2021-06 Yes [id number] 1{tbl} Take 1 [facility] azole-trime 0-14 tablet by ity of thoprim 00:00: mouth [place] 400-80 mg 00 every 12 Medica l per tablet (twelve) Branc h hours. sulfamethox 2021-06 Yes [id number] 1{tbl} Take 1 [facility] azole-trime 0-14 tablet by ity of thoprim 00:00: mouth [place] 400-80 mg 00 every 12 Medica l per tablet (twelve) Branc h hours. sulfamethox 2021-06 Yes [id number] 1{tbl} Take 1 [facility] azole-trime 0-14 tablet by ity of thoprim 00:00: mouth [place] 400-80 mg 00 every 12 Medica l per tablet (twelve) Branc h hours. sulfamethox 2021-06 Yes [id number] 1{tbl} Take 1 [facility] azole-trime 0-14 tablet by ity of thoprim 00:00: mouth [place] 400-80 mg 00 every 12 Medica l per tablet (twelve) Branc h hours. sulfamethox 2021-06 Yes [id number] 1{tbl} Take 1 [facility] azole-trime 0-14 tablet by ity of thoprim 00:00: mouth [place] 400-80 mg 00 every 12 Medica l per tablet (twelve) Branc h hours. sulfamethox 2021-06 Yes [id number] 1{tbl} Take 1 [facility] azole-trime 0-14 tablet by ity of thoprim 00:00: mouth [place] 400-80 mg 00 every 12 Medica l per tablet (twelve) Branc h hours. sulfamethox 2021-06 Yes [id number] 1{tbl} Take 1 [facility] azole-trime 0-14 tablet by ity of thoprim 00:00: mouth [place] 400-80 mg 00 every 12 Medica l per tablet (twelve) Branc h hours. sulfamethox 2021-06 Yes [id number] 1{tbl} Take 1 [facility] azole-trime 0-14 tablet by ity of thoprim 00:00: mouth [place] 400-80 mg 00 every 12 Medica l per tablet (twelve) Branc h hours. sulfamethox 2021-06 Yes [id number] 1{tbl} Take 1 [facility] azole-trime 0-14 tablet by ity of thoprim 00:00: mouth [place] 400-80 mg 00 every 12 Medica l per tablet (twelve) Branc h hours. sulfamethox 2021-06 Yes [id number] 1{tbl} Take 1 [facility] azole-trime 0-14 tablet by ity of thoprim 00:00: mouth [place] 400-80 mg 00 every 12 Medica l per tablet (twelve) Branc h hours. sulfamethox 2021-06 Yes [id number] 1{tbl} Take 1 [facility] azole-trime 0-14 tablet by ity of thoprim 00:00: mouth [place] 400-80 mg 00 every 12 Medica l per tablet (twelve) Branc h hours. cephALEXin 2021-06- No [id number] 500mg Take 1 Univers (KEFLEX) 0-14 11-18 capsule by ity of 500 mg 00:00: 00:00 mouth in [place] capsule 00 :00 the Medical morning Branch and 1 capsule at noon and 1 capsule in the evening. Do all this for 7 days. cephALEXin 2021-06- Yes [id number] 500mg Take 1 [facility] (KEFLEX) 0-14 10-22 capsule by ity of 500 mg 00:00: 04:59 mouth in [place] capsule 00 :00 the Medical morning Branch and 1 capsule at noon and 1 capsule in the evening. Do all this for 7 days. cephALEXin 2021-06- No [id number] 500mg Take 1 [facility] (KEFLEX) 0-14 10-22 capsule by ity of 500 mg 00:00: 04:59 mouth in [place] capsule 00 :00 the [facility] morning Branch and 1 capsule at noon and 1 capsule in the evening. Do all this for 7 days. cephALEXin 2021-06- No [id number] 500mg Take 1 Univers (KEFLEX) 0-14 10-22 capsule by ity of 500 mg 00:00: 04:59 mouth in [place] capsule 00 :00 the [facility] morning Branch and 1 capsule at noon and 1 capsule in the evening. Do all this for 7 days. cephALEXin 2021-06- No [id number] 500mg Take 1 [facility] (KEFLEX) 0-14 10-22 capsule by ity of 500 mg 00:00: 04:59 mouth in [place] capsule 00 :00 the [facility] morning Branch and 1 capsule at noon and 1 capsule in the evening. Do all this for 7 days. aspirin 81 2021-06 Yes 81mg Take 81 mg U nivers mg chewable 0-11 by mouth ity of tablet 14:32: daily. 05 [facility] Branch Cholecalcif 2021-06 Yes 1{tbl} Take [...] 2021-06 Yes 1{tbl} Take 1 Un bruno juilto, 0-11 tablet by ity of Vitamin D3, [...] (5,000 Branch unit) tablet doxycycline 2021-06- No [id number] 100mg Take 1 [facility] hyclate 100 0-11 11-18 [id number] tablet by ity of mg tablet 00:00: 00:00 mouth in [place] 00 :00 the Medical morning Branch and 1 tablet in the evening. Do all this for 10 days. doxycycline 2021-06- Yes [id number] 100mg Take 1 [facility] hyclate 100 0-11 10-22 [id number] tablet by ity of mg tablet 00:00: 04:59 mouth in [place] 00 :00 the Medical morning Branch and 1 tablet in the evening. Do all this for 10 days. doxycycline 2021-06- Yes [id number] 100mg Take 1 [facility] hyclate 100 0-11 10-22 [id number] tablet by ity of mg tablet 00:00: 04:59 mouth in [place] 00 :00 the Medical morning Branch and 1 tablet in the evening. Do all this for 10 days. doxycycline 2021-06- Yes [id number] 100mg Take 1 [facility] hyclate 100 0-11 10-22 [id number] tablet by ity of mg tablet 00:00: 04:59 mouth in [place] 00 :00 the Medical morning Branch and 1 tablet in the evening. Do all this for 10 days. doxycycline 2021-06- Yes [id number] 100mg Take 1 [facility] hyclate 100 0-11 10-22 [id number] tablet by ity of mg tablet 00:00: 04:59 mouth in [place] 00 :00 the Medical morning Branch and 1 tablet in the evening. Do all this for 10 days. doxycycline 2021-06- Yes [id number] 100mg Take 1 [facility] hyclate 100 0-11 10-22 [id number] tablet by ity of mg tablet 00:00: 04:59 mouth in [place] 00 :00 the Medical morning Branch and 1 tablet in the evening. Do all this for 10 days. doxycycline 2021-06- Yes [id number] 100mg Take 1 [facility] hyclate 100 0-11 10-22 [id number] tablet by ity of mg tablet 00:00: 04:59 mouth in [place] 00 :00 the Medical morning Branch and 1 tablet in the evening. Do all this for 10 days. doxycycline 2021-06- Yes [id number] 100mg Take 1 [facility] hyclate 100 0-11 10- [id number] tablet by ity of mg tablet 00:00: 04:59 mouth in [place] 00 :00 the Medical morning Branch and 1 tablet in the evening. Do all this for 10 days. doxycycline 2021-06- Yes [id number] 100mg Take 1 [facility] hyclate 100 0-11 10- [id number] tablet by ity of mg tablet 00:00: 04:59 mouth in [place] 00 :00 the Medical morning Branch and 1 tablet in the evening. Do all this for 10 days. doxycycline 2021-06- Yes [id number] 100mg Take 1 [facility] hyclate 100 0-11 10-22 [id number] tablet by ity of mg tablet 00:00: 04:59 mouth in [place] 00 :00 the Medical morning Branch and 1 tablet in the evening. Do all this for 10 days. doxycycline 2021-06- No [id number] 100mg Take 1 [facility] hyclate 100 0-11 10-22 [id number] tablet by ity of mg tablet 00:00: 04:59 mouth in [place] 00 :00 the Medical morning Branch and 1 tablet in the evening. Do all this for 10 days. doxycycline 2021-06- No [id number] 100mg Take 1 [facility] hyclate 100 0-11 10-22 [id number] tablet by ity of mg tablet 00:00: 04:59 mouth in [place] 00 :00 the Medical morning Branch and 1 tablet in the evening. Do all this for 10 days. doxycycline 2021-2021- No [id number] 100mg Take 1 [facility] hyclate 100 04-06 [id number] tablet by ity of mg tablet 00:00: 04:59 mouth in [place] 00 :00 the Medical morning Branch and 1 tablet in the evening. Do all this for 10 days. GLIPIZIDE 5 Yes [id number] TAKE 1/2 Univers mg tablet 9-16 TABLET BY ity o f 00:00: MOUTH [place] 00 EVERY DAY Medical WITH Branch BREAKFAST GLIPIZIDE 5 Yes [id number] TAKE 1/2 Univers mg tablet 9-16 TABLET BY ity o f 00:00: MOUTH [place] 00 EVERY DAY Medical WITH Branch BREAKFAST GLIPIZIDE 5 0 Yes [id number] TAKE 1/2 Univers mg tablet 9-16 TABLET BY ity o f 00:00: MOUTH [place] 00 EVERY DAY Medical WITH Branch BREAKFAST GLIPIZIDE 5 Yes [id number] TAKE 1/2 Univers mg tablet 9-16 TABLET BY ity o f 00:00: MOUTH [place] 00 EVERY DAY Medical WITH Branch BREAKFAST GLIPIZIDE 5 Yes [id number] TAKE 1/2 Univers mg tablet 9-16 TABLET BY ity o f 00:00: MOUTH [place] 00 EVERY DAY Medical WITH Branch BREAKFAST GLIPIZIDE 5 0 Yes [id number] TAKE 1/2 Univers mg tablet 9-16 TABLET BY ity o f 00:00: MOUTH [place] 00 EVERY DAY Medical WITH Branch BREAKFAST GLIPIZIDE 5 0 Yes [id number] TAKE 1/2 Univers mg tablet 9-16 TABLET BY ity o f 00:00: MOUTH [place] 00 EVERY DAY Medical WITH Branch BREAKFAST GLIPIZIDE 5 Yes [id number] TAKE 1/2 Univers mg tablet 9-16 TABLET BY ity o f 00:00: MOUTH [place] 00 EVERY DAY Medical WITH Branch BREAKFAST GLIPIZIDE 5 Yes [id number] TAKE 1/2 Univers mg tablet 9-16 TABLET BY ity o f 00:00: MOUTH [place] 00 EVERY DAY Medical WITH Branch BREAKFAST GLIPIZIDE 5 Yes [id number] TAKE 1/2 Univers mg tablet 9-16 TABLET BY ity o f 00:00: MOUTH [place] 00 EVERY DAY Medical WITH Branch BREAKFAST GLIPIZIDE 5 2021-0 Yes [id number] TAKE 1/2 Univers mg tablet 9-16 TABLET BY ity o f 00:00: MOUTH [place] 00 EVERY DAY Medical WITH Branch BREAKFAST GLIPIZIDE 5 2021-0 Yes [id number] TAKE 1/2 Univers mg tablet 9-16 TABLET BY ity o f 00:00: MOUTH [place] 00 EVERY DAY Medical WITH Branch BREAKFAST GLIPIZIDE 5 2021-0 Yes [id number] TAKE 1/2 Univers mg tablet 9-16 TABLET BY ity o f 00:00: MOUTH [place] 00 EVERY DAY Medical WITH Branch BREAKFAST GLIPIZIDE 5 0 Yes [id number] TAKE 1/2 Univers mg tablet 9-16 TABLET BY ity o f 00:00: MOUTH [place] 00 EVERY DAY Medical WITH Branch BREAKFAST GLIPIZIDE 5 0 Yes [id number] TAKE 1/2 [facility] mg tablet 9-16 TABLET BY ity o f 00:00: MOUTH [place] 00 EVERY DAY Medical WITH Branch BREAKFAST GLIPIZIDE 5 0 Yes [id number] TAKE 1/2 Univers mg tablet 9-16 TABLET BY ity o f 00:00: MOUTH [place] 00 EVERY DAY Medical WITH Branch BREAKFAST GLIPIZIDE 5 0 Yes [id number] TAKE 1/2 Univers mg tablet 9-16 TABLET BY ity o f 00:00: MOUTH [place] 00 EVERY DAY Medical WITH Branch BREAKFAST GLIPIZIDE 5 0 Yes [id number] TAKE 1/2 Univers mg tablet 9-16 TABLET BY ity o f 00:00: MOUTH [place] 00 EVERY DAY Medical WITH Branch BREAKFAST GLIPIZIDE 5 2021-0 Yes [id number] TAKE 1/2 Univers mg tablet 9-16 TABLET BY ity o f 00:00: MOUTH [place] 00 EVERY DAY Medical WITH Branch BREAKFAST GLIPIZIDE 5 2021-0 Yes [id number] TAKE 1/2 [facility] mg tablet 9-16 TABLET BY ity o f 00:00: MOUTH [place] 00 EVERY DAY Medical WITH Branch BREAKFAST GLIPIZIDE 5 2021-0 Yes [id number] TAKE 1/2 Univers mg tablet 9-16 TABLET BY ity o f 00:00: MOUTH [place] 00 EVERY DAY Medical WITH Branch BREAKFAST GLIPIZIDE 5 2021-0 Yes [id number] TAKE 1/2 Univers mg tablet 9-16 TABLET BY ity o f 00:00: MOUTH [place] 00 EVERY DAY Medical WITH Branch BREAKFAST GLIPIZIDE 5 0 Yes [id number] TAKE 1/2 Univers mg tablet 9-16 TABLET BY ity o f 00:00: MOUTH [place] 00 EVERY DAY Medical WITH Branch BREAKFAST GLIPIZIDE 5 2021-0 Yes [id number] TAKE 1/2 Univers mg tablet 9-16 TABLET BY ity o f 00:00: MOUTH [place] 00 EVERY DAY Medical WITH Branch BREAKFAST GLIPIZIDE 5 0 Yes [id number] TAKE 1/2 Univers mg tablet 9-16 TABLET BY ity o f 00:00: MOUTH [place] 00 EVERY DAY Medical WITH Branch BREAKFAST GLIPIZIDE 5 0 Yes [id number] TAKE 1/2 Univers mg tablet 9-16 TABLET BY ity o f 00:00: MOUTH [place] 00 EVERY DAY Medical WITH Branch BREAKFAST GLIPIZIDE 5 2021-0 Yes [id number] TAKE 1/2 Univers mg tablet 9-16 TABLET BY ity o f 00:00: MOUTH [place] 00 EVERY DAY Medical WITH Branch BREAKFAST GLIPIZIDE 5 Yes [id number] TAKE 1/2 Univers mg tablet 9-16 TABLET BY ity o f 00:00: MOUTH [place] 00 EVERY DAY Medical WITH Branch BREAKFAST GLIPIZIDE 5 0 Yes [id number] TAKE 1/2 Univers mg tablet 9-16 TABLET BY ity o f 00:00: MOUTH [place] 00 EVERY DAY Medical WITH Branch BREAKFAST GLIPIZIDE 5 0 Yes [id number] TAKE 1/2 Univers mg tablet 9-16 TABLET BY ity o f 00:00: MOUTH [place] 00 EVERY DAY Medical WITH Branch BREAKFAST GLIPIZIDE 5 2021-0 Yes [id number] TAKE 1/2 [facility] mg tablet 9-16 TABLET BY ity o f 00:00: MOUTH [place] 00 EVERY DAY Medical WITH Branch BREAKFAST GLIPIZIDE 5 0 Yes [id number] TAKE 1/2 Univers mg tablet 9-16 TABLET BY ity o f 00:00: MOUTH [place] 00 EVERY DAY Medical WITH Branch BREAKFAST GLIPIZIDE 5 2021-0 Yes [id number] TAKE 1/2 Univers mg tablet 9-16 TABLET BY ity o f 00:00: MOUTH [place] 00 EVERY DAY Medical WITH Branch BREAKFAST GLIPIZIDE 5 2021-0 Yes [id number] TAKE 1/2 [facility] mg tablet 9-16 TABLET BY ity o f 00:00: MOUTH [place] 00 EVERY DAY Medical WITH Branch BREAKFAST GLIPIZIDE 5 0 Yes [id number] TAKE 1/2 [facility] mg tablet 9-16 TABLET BY ity o f 00:00: MOUTH [place] 00 EVERY DAY Medical WITH Branch BREAKFAST GLIPIZIDE 5 0 Yes [id number] TAKE 1/2 [facility] mg tablet 9-16 TABLET BY ity o f 00:00: MOUTH [place] 00 EVERY DAY Medical WITH Branch BREAKFAST GLIPIZIDE 5 0 Yes [id number] TAKE 1/2 Univers mg tablet 9-16 TABLET BY ity o f 00:00: MOUTH [place] 00 EVERY DAY Medical WITH Branch BREAKFAST GLIPIZIDE 5 0 Yes [id number] TAKE 1/2 [facility] mg tablet 9-16 TABLET BY ity o f 00:00: MOUTH [place] 00 EVERY DAY Medical WITH Branch BREAKFAST GLIPIZIDE 5 0 Yes [id number] TAKE 1/2 [facility] mg tablet 9-16 TABLET BY ity o f 00:00: MOUTH [place] 00 EVERY DAY Medical WITH Branch BREAKFAST GLIPIZIDE 5 0 Yes [id number] TAKE 1/2 [facility] mg tablet 9-16 TABLET BY ity o f 00:00: MOUTH [place] 00 EVERY DAY Medical WITH Branch BREAKFAST GLIPIZIDE 5 0 Yes [id number] TAKE 1/2 [facility] mg tablet 9-16 TABLET BY ity o f 00:00: MOUTH [place] 00 EVERY DAY Medical WITH Branch BREAKFAST GLIPIZIDE 5 0 Yes [id number] TAKE 1/2 [facility] mg tablet 9-16 TABLET BY ity o f 00:00: MOUTH [place] 00 EVERY DAY Medical WITH Branch BREAKFAST aspirin 81 Yes 81mg Take 81 mg U nivers mg chewable 8-18 by mouth ity of tablet 15:01: daily. [place] 18 Medical Branch Cholecalcif Yes 1{tbl} Take 1 Un bruno julito, 8-18 tablet by ity of Vitamin D3, 15:01: mouth [place] 125 mcg 18 daily. Medical (5,000 Branch unit) tablet aspirin 81 0 Yes 81mg Take 81 mg U nivers mg chewable 8-18 by mouth ity of tablet 15:01: daily. [place] 18 Medical Branch Cholecalcif Yes 1{tbl} Take 1 Un bruno [place], 8-18 tablet by ity of Vitamin D3, 15:01: mouth [place] 125 mcg 18 daily. Medical (5,000 Branch unit) tablet aspirin 81 Yes 81mg Take 81 mg U nivers mg chewable 8-18 by mouth ity of tablet 15:01: daily. [place] 18 Medical Branch Cholecalcif Yes 1{tbl} Take 1 Un [facility] [place], 8-18 tablet by ity of Vitamin D3, 15:01: mouth [place] 125 mcg 18 daily. Medical (5,000 Branch unit) tablet ONETOUCH Yes [id number] USE TO Uni vers DELICA PLUS 5-10 TEST TWICE it y of LANCET 30 00:00: DAILY [place] gauge Misc 00 (E11.9) Medica l Branch ONETOUCH Yes [id number] USE TO Uni vers DELICA PLUS 5-10 TEST TWICE it y of LANCET 30 00:00: DAILY [place] gauge Misc 00 (E11.9) Medica l Branch ONETOUCH Yes [id number] USE TO Uni vers DELICA PLUS 5-10 TEST TWICE it y of LANCET 30 00:00: DAILY [place] gauge Misc 00 (E11.9) Medica l Branch ONETOUCH Yes [id number] USE TO Uni vers DELICA PLUS 5-10 TEST TWICE it y of LANCET 30 00:00: DAILY [place] gauge Misc 00 (E11.9) Medica l Branch ONETOUCH Yes [id number] USE TO Uni vers DELICA PLUS 5-10 TEST TWICE it y of LANCET 30 00:00: DAILY [place] gauge Misc 00 (E11.9) Medica l Branch ONETOUCH Yes [id number] USE TO Uni vers DELICA PLUS 5-10 TEST TWICE it y of LANCET 30 00:00: DAILY [place] gauge Misc 00 (E11.9) Medica l Branch ONETOUCH Yes [id number] USE TO Uni vers DELICA PLUS 5-10 TEST TWICE it y of LANCET 30 00:00: DAILY [place] gauge Misc 00 (E11.9) Medica l Branch ONETOUCH 0 Yes [id number] USE TO Uni vers DELICA PLUS 5-10 TEST TWICE it y of LANCET 30 00:00: DAILY [place] gauge Misc 00 (E11.9) Medica l Branch ONETOUCH Yes [id number] USE TO Uni vers DELICA PLUS 5-10 TEST TWICE it y of LANCET 30 00:00: DAILY [place] gauge Misc (E11.9) Medica l Branch ONETOUCH Yes [id number] USE TO Uni vers DELICA PLUS 5-10 TEST TWICE it y of LANCET 30 00:00: DAILY [place] gauge Misc (E11.9) Medica l Branch ONETOUCH Yes [id number] USE TO Uni vers DELICA PLUS 5-10 TEST TWICE it y of LANCET 30 00:00: DAILY [place] gauge Misc (E11.9) Medica l Branch ONETOUCH Yes [id number] USE TO Uni vers DELICA PLUS 5-10 TEST TWICE it y of LANCET 30 00:00: DAILY [place] gauge Misc (E11.9) Medica l Branch ONETOUCH Yes [id number] USE TO Uni vers DELICA PLUS 5-10 TEST TWICE it y of LANCET 30 00:00: DAILY [place] gauge Misc (E11.9) Medica l Branch ONETOUCH Yes [id number] USE TO Uni vers DELICA PLUS 5-10 TEST TWICE it y of LANCET 30 00:00: DAILY [place] gauge Misc (E11.9) Medica l Branch ONETOUCH Yes [id number] USE TO Uni vers DELICA PLUS 5-10 TEST TWICE it y of LANCET 30 00:00: DAILY [place] gauge Misc 00 (E11.9) Medica l Branch ONETOUCH Yes [id number] USE TO Uni vers DELICA PLUS 5-10 TEST TWICE it y of LANCET 30 00:00: DAILY [place] gauge Misc (E11.9) Medica l Branch ONETOUCH Yes [id number] USE TO Uni vers DELICA PLUS 5-10 TEST TWICE it y of LANCET 30 00:00: DAILY [place] gauge Misc 00 (E11.9) Medica l Branch ONETOUCH Yes [id number] USE TO Uni vers DELICA PLUS 5-10 TEST TWICE it y of LANCET 30 00:00: DAILY [place] gauge Misc (E11.9) Medica l Branch ONETOUCH Yes [id number] USE TO Uni vers DELICA PLUS 5-10 TEST TWICE it y of LANCET 30 00:00: DAILY [place] gauge Misc 00 (E11.9) Medica l Branch ONETOUCH 0 Yes [id number] USE TO Uni vers DELICA PLUS 5-10 TEST TWICE it y of LANCET 30 00:00: DAILY [place] gauge Misc (E11.9) Medica l Branch ONETOUCH 2021-0 Yes [id number] USE TO Uni vers DELICA PLUS 5-10 TEST TWICE it y of LANCET 30 00:00: DAILY [place] gauge Misc (E11.9) Medica l Branch ONETOUCH 0 Yes [id number] USE TO Uni vers DELICA PLUS 5-10 TEST TWICE it y of LANCET 30 00:00: DAILY [place] gauge Misc (E11.9) Medica l Branch ONETOUCH 0 Yes [id number] USE TO Uni vers DELICA PLUS 5-10 TEST TWICE it y of LANCET 30 00:00: DAILY [place] gauge Misc (E11.9) Medica l Branch ONETOUCH 0 Yes [id number] USE TO Uni vers DELICA PLUS 5-10 TEST TWICE it y of LANCET 30 00:00: DAILY [place] gauge Misc (E11.9) Medica l Branch ONETOUCH 0 Yes [id number] USE TO Uni vers DELICA PLUS 5-10 TEST TWICE it y of LANCET 30 00:00: DAILY [place] gauge Misc (E11.9) Medica l Branch ONETOUCH 2021-0 Yes [id number] USE TO Uni vers DELICA PLUS 5-10 TEST TWICE it y of LANCET 30 00:00: DAILY [place] gauge Misc (E11.9) Medica l Branch ONETOUCH 0 Yes [id number] USE TO Uni vers DELICA PLUS 5-10 TEST TWICE it y of LANCET 30 00:00: DAILY [place] gauge Misc (E11.9) Medica l Branch ONETOUCH 2021-0 Yes [id number] USE TO Uni vers DELICA PLUS 5-10 TEST TWICE it y of LANCET 30 00:00: DAILY [place] gauge Misc (E11.9) Medica l Branch ONETOUCH 2021-0 Yes [id number] USE TO Uni vers DELICA PLUS 5-10 TEST TWICE it y of LANCET 30 00:00: DAILY [place] gauge Misc (E11.9) Medica l Branch ONETOUCH Yes [id number] USE TO Uni vers DELICA PLUS 5-10 TEST TWICE it y of LANCET 30 00:00: DAILY [place] gauge Misc (E11.9) Medica l Branch ONETOUCH 0 Yes [id number] USE TO Uni vers DELICA PLUS 5-10 TEST TWICE it y of LANCET 30 00:00: DAILY [place] gauge Misc (E11.9) Medica l Branch ONETOUCH 0 Yes [id number] USE TO Uni vers DELICA PLUS 5-10 TEST TWICE it y of LANCET 30 00:00: DAILY [place] gauge Misc (E11.9) Medica l Branch ONETOUCH Yes [id number] USE TO Uni vers DELICA PLUS 5-10 TEST TWICE it y of LANCET 30 00:00: DAILY [place] gauge Misc (E11.9) Medica l Branch ONETOUCH Yes [id number] USE TO Uni vers DELICA PLUS 5-10 TEST TWICE it y of LANCET 30 00:00: DAILY [place] gauge Misc (E11.9) Medica l Branch ONETOUCH 0 Yes [id number] USE TO Uni vers DELICA PLUS 5-10 TEST TWICE it y of LANCET 30 00:00: DAILY [place] gauge Misc (E11.9) Medica l Branch ONETOUCH 0 Yes [id number] USE TO Uni vers DELICA PLUS 5-10 TEST TWICE it y of LANCET 30 00:00: DAILY [place] gauge Misc (E11.9) Medica l Branch ONETOUCH 0 Yes [id number] USE TO Uni vers DELICA PLUS 5-10 TEST TWICE it y of LANCET 30 00:00: DAILY [place] gauge Misc (E11.9) Medica l Branch ONETOUCH 0 Yes [id number] USE TO Uni vers DELICA PLUS 5-10 TEST TWICE it y of LANCET 30 00:00: DAILY [place] gauge Misc (E11.9) Medica l Branch ONETOUCH 2021-0 Yes [id number] USE TO Uni vers DELICA PLUS 5-10 TEST TWICE it y of LANCET 30 00:00: DAILY [place] gauge Misc (E11.9) Medica l Branch ONETOUCH 2022-0 Yes [id number] USE TO Uni vers DELICA PLUS 5-10 TEST TWICE it y of LANCET 30 00:00: DAILY [place] gauge Misc 00 (E11.9) Medica l Branch ONETOUCH 0 Yes [id number] USE TO Uni vers DELICA PLUS 5-10 TEST TWICE it y of LANCET 30 00:00: DAILY [place] gauge Misc 00 (E11.9) Medica l Branch ONETOUCH 2021-0 Yes [id number] USE TO Uni vers DELICA PLUS 5-10 TEST TWICE it y of LANCET 30 00:00: DAILY [place] gauge Misc 00 (E11.9) Medica l Branch ONETOUCH 0 Yes [id number] USE TO Uni vers DELICA PLUS 5-10 TEST TWICE it y of LANCET 30 00:00: DAILY [place] gauge Misc 00 (E11.9) Medica l Branch ONETOUCH 0 Yes [id number] USE TO Uni vers DELICA PLUS 5-10 TEST TWICE it y of LANCET 30 00:00: DAILY [place] [facility] 00 (E11.9) Medica l Branch CLOPIDOGREL 2022-0 Yes [id number] TAKE 1 [facility] 75 mg 3-28 TABLET BY ity of tablet 00:00: [facility] 00 EVERY DAY Medical Branch CLOPIDOGREL 2022-0 Yes [id number] TAKE 1 [facility] 75 mg 3-28 TABLET BY ity of tablet 00:00: [facility] EVERY DAY Medical Branch CLOPIDOGREL 2022-0 Yes [id number] TAKE 1 [facility] 75 mg 3-28 TABLET BY ity of tablet 00:00: [facility] EVERY DAY Medical Branch CLOPIDOGREL 2022-0 Yes [id number] TAKE 1 [facility] 75 mg 3-28 TABLET BY ity of tablet 00:00: [facility] EVERY DAY Medical Branch CLOPIDOGREL 2022-0 Yes [id number] TAKE 1 [facility] 75 mg 3-28 TABLET BY ity of tablet 00:00: [facility] EVERY DAY Medical Branch CLOPIDOGREL 2022-0 Yes [id number] TAKE 1 [facility] 75 mg 3-28 TABLET BY ity of tablet 00:00: [facility] EVERY DAY Medical Branch CLOPIDOGREL 2022-0 Yes [id number] TAKE 1 [facility] 75 mg 3-28 TABLET BY ity of tablet 00:00: [facility] EVERY DAY Medical Branch CLOPIDOGREL 2022-0 Yes [id number] TAKE 1 [facility] 75 mg 3-28 TABLET BY ity of tablet 00:00: MOUTH [place] 00 EVERY DAY Medical Branch CLOPIDOGREL 2022-0 Yes [id number] TAKE 1 [facility] 75 mg 3-28 TABLET BY ity of tablet 00:00: MOUTH [place] 00 EVERY DAY Medical Branch CLOPIDOGREL 2022-0 Yes [id number] TAKE 1 [facility] 75 mg 3-28 TABLET BY ity of tablet 00:00: MOUTH [place] 00 EVERY DAY Medical Branch CLOPIDOGREL 2022-0 Yes [id number] TAKE 1 [facility] 75 mg 3-28 TABLET BY ity of tablet 00:00: MOUTH [place] 00 EVERY DAY Medical Branch CLOPIDOGREL 2022-0 Yes [id number] TAKE 1 [facility] 75 mg 3-28 TABLET BY ity of tablet 00:00: MOUTH [place] 00 EVERY DAY Medical Branch CLOPIDOGREL 2022-0 Yes [id number] TAKE 1 [facility] 75 mg 3-28 TABLET BY ity of tablet 00:00: MOUTH [place] 00 EVERY DAY Medical Branch CLOPIDOGREL 2022-0 Yes [id number] TAKE 1 [facility] 75 mg 3-28 TABLET BY ity of tablet 00:00: [facility] 00 EVERY DAY Medical Branch CLOPIDOGREL 2022-0 Yes [id number] TAKE 1 [facility] 75 mg 3-28 TABLET BY ity of tablet 00:00: MOUTH 00 EVERY DAY Medical Branch CLOPIDOGREL 2022-0 Yes [id number] TAKE 1 [facility] 75 mg 3-28 TABLET BY ity of tablet 00:00: [facility] 00 EVERY DAY Medical Branch CLOPIDOGREL 2022-0 Yes [id number] TAKE 1 [facility] 75 mg 3-28 TABLET BY ity of tablet 00:00: [facility] 00 EVERY DAY Medical Branch CLOPIDOGREL 2022-0 Yes [id number] TAKE 1 [facility] 75 mg 3-28 TABLET BY ity of tablet 00:00: [facility] 00 EVERY DAY Medical Branch CLOPIDOGREL 2022-0 Yes [id number] TAKE 1 [facility] 75 mg 3-28 TABLET BY ity of tablet 00:00: MOUTH [place] 00 EVERY DAY Medical Branch CLOPIDOGREL 2022-0 Yes [id number] TAKE 1 [facility] 75 mg 3-28 TABLET BY ity of tablet 00:00: MOUTH [place] 00 EVERY DAY Medical Branch CLOPIDOGREL 2022-0 Yes [id number] TAKE 1 [facility] 75 mg 3-28 TABLET BY ity of tablet 00:00: MOUTH [place] 00 EVERY DAY Medical Branch CLOPIDOGREL 2022-0 Yes [id number] TAKE 1 [facility] 75 mg 3-28 TABLET BY ity of tablet 00:00: MOUTH [place] 00 EVERY DAY Medical Branch CLOPIDOGREL 2022-0 Yes [id number] TAKE 1 [facility] 75 mg 3-28 TABLET BY ity of tablet 00:00: MOUTH [place] 00 EVERY DAY Medical Branch CLOPIDOGREL 2022-0 Yes [id number] TAKE 1 [facility] 75 mg 3-28 TABLET BY ity of tablet 00:00: MOUTH [place] 00 EVERY DAY Medical Branch CLOPIDOGREL 2022-0 Yes [id number] TAKE 1 [facility] 75 mg 3-28 TABLET BY ity of tablet 00:00: MOUTH [place] 00 EVERY DAY Medical Branch CLOPIDOGREL 2022-0 Yes [id number] TAKE 1 [facility] 75 mg 3-28 TABLET BY ity of tablet 00:00: MOUTH [place] 00 EVERY DAY Medical Branch CLOPIDOGREL 2022-0 Yes [id number] TAKE 1 [facility] 75 mg 3-28 TABLET BY ity of tablet 00:00: [facility] 00 EVERY DAY Medical Branch CLOPIDOGREL 2022-0 Yes [id number] TAKE 1 [facility] 75 mg 3-28 TABLET BY ity of tablet 00:00: [facility] EVERY DAY Medical Branch CLOPIDOGREL 2022-0 Yes [id number] TAKE 1 [facility] 75 mg 3-28 TABLET BY ity of tablet 00:00: MOUTH [place] 00 EVERY DAY Medical Branch CLOPIDOGREL 2022-0 Yes [id number] TAKE 1 [facility] 75 mg 3-28 TABLET BY ity of tablet 00:00: MOUTH [place] 00 EVERY DAY Medical Branch CLOPIDOGREL 2022-0 Yes [id number] TAKE 1 [facility] 75 mg 3-28 TABLET BY ity of tablet 00:00: [facility] 00 EVERY DAY Medical Branch CLOPIDOGREL 2022-0 Yes [id number] TAKE 1 [facility] 75 mg 3-28 TABLET BY ity of tablet 00:00: [facility] 00 EVERY DAY Medical Branch CLOPIDOGREL 2022-0 Yes [id number] TAKE 1 [facility] 75 mg 3-28 TABLET BY ity of tablet 00:00: MOUTH [place] 00 EVERY DAY Medical Branch CLOPIDOGREL 2022-0 Yes [id number] TAKE 1 [facility] 75 mg 3-28 TABLET BY ity of tablet 00:00: [facility] 00 EVERY DAY Medical Branch CLOPIDOGREL 2022-0 Yes [id number] TAKE 1 [facility] 75 mg 3-28 TABLET BY ity of tablet 00:00: MOUTH [place] 00 EVERY DAY Medical Branch CLOPIDOGREL 2022-0 Yes [id number] TAKE 1 [facility] 75 mg 3-28 TABLET BY ity of tablet 00:00: [facility] EVERY DAY Medical Branch CLOPIDOGREL 2022-0 Yes [id number] TAKE 1 [facility] 75 mg 3-28 TABLET BY ity of tablet 00:00: MOUTH [place] 00 EVERY DAY Medical Branch CLOPIDOGREL 2022-0 Yes [id number] TAKE 1 [facility] 75 mg 3-28 TABLET BY ity of tablet 00:00: MOUTH [place] 00 EVERY DAY Medical Branch CLOPIDOGREL 2022-0 Yes [id number] TAKE 1 [facility] 75 mg 3-28 TABLET BY ity of tablet 00:00: MOUTH [place] 00 EVERY DAY Medical Branch CLOPIDOGREL 2022-0 Yes [id number] TAKE 1 [facility] 75 mg 3-28 TABLET BY ity of tablet 00:00: MOUTH [place] 00 EVERY DAY Medical Branch CLOPIDOGREL 2022-0 Yes [id number] TAKE 1 [facility] 75 mg 3-28 TABLET BY ity of tablet 00:00: MOUTH [place] 00 EVERY DAY Medical Branch CLOPIDOGREL 2022-0 Yes [id number] TAKE 1 [facility] 75 mg 3-28 TABLET BY ity of tablet 00:00: MOUTH [place] 00 EVERY DAY Medical Branch CLOPIDOGREL 2022-0 Yes [id number] TAKE 1 [facility] 75 mg 3-28 TABLET BY ity of tablet 00:00: MOUTH [place] 00 EVERY DAY Medical Branch CLOPIDOGREL 2022-0 Yes [id number] TAKE 1 [facility] 75 mg 3-28 TABLET BY ity of tablet 00:00: MOUTH [place] 00 EVERY DAY Medical Branch isosorbide 2022-0 Yes [id number] 30mg Take 1 [facility] mononitrate 3-24 tablet by ity of 30 mg 24 hr 00:00: mouth [place] tablet 00 daily. Medical Branch isosorbide 2022-0 Yes [id number] 30mg Take 1 [facility] mononitrate 3-24 tablet by ity of 30 mg 24 hr 00:00: mouth [place] tablet 00 daily. Medical Branch isosorbide 2022-0 Yes [id number] 30mg Take 1 [facility] mononitrate 3-24 tablet by ity of 30 mg 24 hr 00:00: mouth [place] tablet 00 daily. Medical Branch isosorbide 2022-0 Yes [id number] 30mg Take 1 [facility] mononitrate 3-24 tablet by ity of 30 mg 24 hr 00:00: mouth [place] tablet 00 daily. Medical Branch isosorbide 2022-0 Yes [id number] 30mg Take 1 [facility] mononitrate 3-24 tablet by ity of 30 mg 24 hr 00:00: mouth [place] tablet 00 daily. Medical Branch isosorbide 2022-0 Yes [id number] 30mg Take 1 [facility] mononitrate 3-24 tablet by ity of 30 mg 24 hr 00:00: mouth [place] tablet 00 daily. Medical Branch isosorbide 2021-0 Yes [id number] 30mg Take 1 [facility] mononitrate 3-24 tablet by ity of 30 mg 24 hr 00:00: mouth [place] tablet 00 daily. Medical Branch isosorbide 2021-0 Yes [id number] 30mg Take 1 [facility] mononitrate 3-24 tablet by ity of 30 mg 24 hr 00:00: mouth [place] tablet 00 daily. Medical Branch isosorbide 2021-0 Yes [id number] 30mg Take 1 [facility] mononitrate 3-24 tablet by ity of 30 mg 24 hr 00:00: mouth [place] tablet 00 daily. Medical Branch isosorbide 2021-0 Yes [id number] 30mg Take 1 [facility] mononitrate 3-24 tablet by ity of 30 mg 24 hr 00:00: mouth [place] tablet 00 daily. Medical Branch isosorbide 2021-0 Yes [id number] 30mg Take 1 [facility] mononitrate 3-24 tablet by ity of 30 mg 24 hr 00:00: mouth [place] tablet 00 daily. Medical Branch isosorbide 2021-0 Yes [id number] 30mg Take 1 [facility] mononitrate 3-24 tablet by ity of 30 mg 24 hr 00:00: mouth [place] tablet 00 daily. Medical Branch isosorbide 2021-0 Yes [id number] 30mg Take 1 [facility] mononitrate 3-24 tablet by ity of 30 mg 24 hr 00:00: mouth [place] tablet 00 daily. Medical Branch isosorbide 2021-0 Yes [id number] 30mg Take 1 [facility] mononitrate 3-24 tablet by ity of 30 mg 24 hr 00:00: mouth [place] tablet 00 daily. Medical Branch isosorbide 2021-0 Yes [id number] 30mg Take 1 [facility] mononitrate 3-24 tablet by ity of 30 mg 24 hr 00:00: mouth [place] tablet 00 daily. Medical Branch isosorbide 2021-0 Yes [id number] 30mg Take 1 [facility] mononitrate 3-24 tablet by ity of 30 mg 24 hr 00:00: mouth [place] tablet 00 daily. Medical Branch isosorbide 2022-0 Yes [id number] 30mg Take 1 [facility] mononitrate 3-24 tablet by ity of 30 mg 24 hr 00:00: mouth [place] tablet 00 daily. Medical Branch isosorbide 2021-0 Yes [id number] 30mg Take 1 [facility] mononitrate 3-24 tablet by ity of 30 mg 24 hr 00:00: mouth [place] tablet 00 daily. Medical Branch isosorbide 2021-0 Yes [id number] 30mg Take 1 [facility] mononitrate 3-24 tablet by ity of 30 mg 24 hr 00:00: mouth [place] tablet 00 daily. Medical Branch isosorbide 2021-0 Yes [id number] 30mg Take 1 [facility] mononitrate 3-24 tablet by ity of 30 mg 24 hr 00:00: mouth [place] tablet 00 daily. Medical Branch isosorbide 2021-0 Yes [id number] 30mg Take 1 [facility] mononitrate 3-24 tablet by ity of 30 mg 24 hr 00:00: mouth [place] tablet 00 daily. Medical Branch isosorbide 2021-0 Yes [id number] 30mg Take 1 [facility] mononitrate 3-24 tablet by ity of 30 mg 24 hr 00:00: mouth [place] tablet 00 daily. Medical Branch isosorbide 2021-0 Yes [id number] 30mg Take 1 [facility] mononitrate 3-24 tablet by ity of 30 mg 24 hr 00:00: mouth [place] tablet 00 daily. Medical Branch isosorbide 2021-0 Yes [id number] 30mg Take 1 [facility] mononitrate 3-24 tablet by ity of 30 mg 24 hr 00:00: mouth [place] tablet 00 daily. Medical Branch isosorbide 2021-0 Yes [id number] 30mg Take 1 [facility] mononitrate 3-24 tablet by ity of 30 mg 24 hr 00:00: mouth [place] tablet 00 daily. Medical Branch isosorbide 2021-0 Yes [id number] 30mg Take 1 [facility] mononitrate 3-24 tablet by ity of 30 mg 24 hr 00:00: mouth [place] tablet 00 daily. Medical Branch isosorbide 2021-0 Yes [id number] 30mg Take 1 [facility] mononitrate 3-24 tablet by ity of 30 mg 24 hr 00:00: mouth [place] tablet 00 daily. Medical Branch isosorbide 2021-0 Yes [id number] 30mg Take 1 [facility] mononitrate 3-24 tablet by ity of 30 mg 24 hr 00:00: mouth [place] tablet 00 daily. Medical Branch isosorbide 2-0 Yes [id number] 30mg Take 1 [facility] mononitrate 3-24 tablet by ity of 30 mg 24 hr 00:00: mouth [place] tablet 00 daily. Medical Branch isosorbide 2021-0 Yes [id number] 30mg Take 1 [facility] mononitrate 3-24 tablet by ity of 30 mg 24 hr 00:00: mouth [place] tablet 00 daily. Medical Branch isosorbide 2021-0 Yes [id number] 30mg Take 1 [facility] mononitrate 3-24 tablet by ity of 30 mg 24 hr 00:00: mouth [place] tablet 00 daily. Medical Branch isosorbide 2021-0 Yes [id number] 30mg Take 1 [facility] mononitrate 3-24 tablet by ity of 30 mg 24 hr 00:00: mouth [place] tablet 00 daily. Medical Branch isosorbide 2021-0 Yes [id number] 30mg Take 1 [facility] mononitrate 3-24 tablet by ity of 30 mg 24 hr 00:00: mouth [place] tablet 00 daily. Medical Branch isosorbide 2021-0 Yes [id number] 30mg Take 1 [facility] mononitrate 3-24 tablet by ity of 30 mg 24 hr 00:00: mouth [place] tablet 00 daily. Medical Branch isosorbide 2021-0 Yes [id number] 30mg Take 1 [facility] mononitrate 3-24 tablet by ity of 30 mg 24 hr 00:00: mouth [place] tablet 00 daily. Medical Branch isosorbide 2021-0 Yes [id number] 30mg Take 1 [facility] mononitrate 3-24 tablet by ity of 30 mg 24 hr 00:00: mouth [place] tablet 00 daily. Medical Branch isosorbide 2-0 Yes [id number] 30mg Take 1 [facility] mononitrate 3-24 tablet by ity of 30 mg 24 hr 00:00: mouth [place] tablet 00 daily. Medical Branch isosorbide 2-0 Yes [id number] 30mg Take 1 [facility] mononitrate 3-24 tablet by ity of 30 mg 24 hr 00:00: mouth [place] tablet 00 daily. Medical Branch isosorbide 2-0 Yes [id number] 30mg Take 1 [facility] mononitrate 3-24 tablet by ity of 30 mg 24 hr 00:00: mouth [place] tablet 00 daily. Medical Branch isosorbide 2021-0 Yes [id number] 30mg Take 1 [facility] mononitrate 3-24 tablet by ity of 30 mg 24 hr 00:00: mouth [place] tablet 00 daily. Medical Branch isosorbide 2021-0 Yes [id number] 30mg Take 1 [facility] mononitrate 3-24 tablet by ity of 30 mg 24 hr 00:00: mouth [place] tablet 00 daily. Medical Branch isosorbide 2021-0 Yes [id number] 30mg Take 1 [facility] mononitrate 3-24 tablet by ity of 30 mg 24 hr 00:00: mouth [place] tablet 00 daily. Medical Branch isosorbide 2021-0 Yes [id number] 30mg Take 1 [facility] mononitrate 3-24 tablet by ity of 30 mg 24 hr 00:00: mouth [place] tablet 00 daily. Medical Branch isosorbide 2021-0 Yes [id number] 30mg Take 1 [facility] mononitrate 3-24 tablet by ity of 30 mg 24 hr 00:00: mouth [place] tablet 00 daily. Medical Branch ELIQUIS 2.5 2020-06 Yes [id number] TAKE 1 [facility] mg tablet 2-29 TABLET BY ity o f 00:00: MOUTH (TWO) Medical TIMES Branch DAILY. INDICATION S: AVF CLOTTING PREVENTION ELIQUIS 2.5 2020-06 Yes [id number] TAKE 1 [facility] mg tablet 2-29 TABLET BY ity o f 00:00: MOUTH 2 (TWO) Medical TIMES Branch DAILY. INDICATION S: AVF CLOTTING PREVENTION ELIQUIS 2.5 2020-06 Yes [id number] TAKE 1 [facility] mg tablet 2-29 TABLET BY ity o f 00:00: MOUTH 2 (TWO) Medical TIMES Branch DAILY. INDICATION S: AVF CLOTTING PREVENTION ELIQUIS 2.5 2020-06 Yes [id number] TAKE 1 [facility] mg tablet 2-29 TABLET BY ity o f 00:00: MOUTH 2 [place] 00 (TWO) Medical TIMES Branch DAILY. INDICATION S: AVF CLOTTING PREVENTION ELIQUIS 2.5 2020-06 Yes [id number] TAKE 1 [facility] mg tablet 2-29 TABLET BY ity o f 00:00: MOUTH 2 (TWO) Medical TIMES Branch DAILY. INDICATION S: AVF CLOTTING PREVENTION ELIQUIS 2.5 2020-06 Yes [id number] TAKE 1 [facility] mg tablet 2-29 TABLET BY ity o f 00:00: MOUTH (TWO) Medical TIMES Branch DAILY. INDICATION S: AVF CLOTTING PREVENTION ELIQUIS 2.5 2020-06 Yes [id number] TAKE 1 [facility] mg tablet 2-29 TABLET BY ity o f 00:00: MOUTH 2 (TWO) Medical TIMES Branch DAILY. INDICATION S: AVF CLOTTING PREVENTION ELIQUIS 2.5 2020-06 Yes [id number] TAKE 1 [facility] mg tablet 2-29 TABLET BY ity o f 00:00: MOUTH (TWO) Medical TIMES Branch DAILY. INDICATION S: AVF CLOTTING PREVENTION ELIQUIS 2.5 2020-06 Yes [id number] TAKE 1 [facility] mg tablet 2-29 TABLET BY ity o f 00:00: MOUTH (TWO) Medical TIMES Branch DAILY. INDICATION S: AVF CLOTTING PREVENTION ELIQUIS 2.5 2020-06 Yes [id number] TAKE 1 [facility] mg tablet 2-29 TABLET BY ity o f 00:00: MOUTH (TWO) Medical TIMES Branch DAILY. INDICATION S: AVF CLOTTING PREVENTION ELIQUIS 2.5 2020-06 Yes [id number] TAKE 1 [facility] mg tablet 2-29 TABLET BY ity o f 00:00: MOUTH (TWO) Medical TIMES Branch DAILY. INDICATION S: AVF CLOTTING PREVENTION ELIQUIS 2.5 2020-06 Yes [id number] TAKE 1 [facility] mg tablet 2-29 TABLET BY ity o f 00:00: MOUTH (TWO) Medical TIMES Branch DAILY. INDICATION S: AVF CLOTTING PREVENTION ELIQUIS 2.5 2020-06 Yes [id number] TAKE 1 [facility] mg tablet 2-29 TABLET BY ity o f 00:00: MOUTH 2 (TWO) Medical TIMES Branch DAILY. INDICATION S: AVF CLOTTING PREVENTION ELIQUIS 2.5 2020-06 Yes [id number] TAKE 1 [facility] mg tablet 2-29 TABLET BY ity o f 00:00: MOUTH 2 (TWO) Medical TIMES Branch DAILY. INDICATION S: AVF CLOTTING PREVENTION ELIQUIS 2.5 2020-06 Yes [id number] TAKE 1 [facility] mg tablet 2-29 TABLET BY ity o f 00:00: MOUTH 2 (TWO) Medical TIMES Branch DAILY. INDICATION S: AVF CLOTTING PREVENTION ELIQUIS 2.5 2020-06 Yes [id number] TAKE 1 [facility] mg tablet 2-29 TABLET BY ity o f 00:00: MOUTH (TWO) Medical TIMES Branch DAILY. INDICATION S: AVF CLOTTING PREVENTION ELIQUIS 2.5 2020-06 Yes [id number] TAKE 1 [facility] mg tablet 2-29 TABLET BY ity o f 00:00: MOUTH (TWO) Medical TIMES Branch DAILY. INDICATION S: AVF CLOTTING PREVENTION ELIQUIS 2.5 2020-06 Yes [id number] TAKE 1 [facility] mg tablet 2-29 TABLET BY ity o f 00:00: MOUTH (TWO) Medical TIMES Branch DAILY. INDICATION S: AVF CLOTTING PREVENTION ELIQUIS 2.5 2020-06 Yes [id number] TAKE 1 [facility] mg tablet 2-29 TABLET BY ity o f 00:00: MOUTH (TWO) Medical TIMES Branch DAILY. INDICATION S: AVF CLOTTING PREVENTION ELIQUIS 2.5 2020-06 Yes [id number] TAKE 1 [facility] mg tablet 2-29 TABLET BY ity o f 00:00: MOUTH (TWO) Medical TIMES Branch DAILY. INDICATION S: AVF CLOTTING PREVENTION ELIQUIS 2.5 2020-06 Yes [id number] TAKE 1 [facility] mg tablet 2-29 TABLET BY ity o f 00:00: MOUTH (TWO) Medical TIMES Branch DAILY. INDICATION S: AVF CLOTTING PREVENTION ELIQUIS 2.5 2020-06 Yes [id number] TAKE 1 [facility] mg tablet 2-29 TABLET BY ity o f 00:00: MOUTH (TWO) Medical TIMES Branch DAILY. INDICATION S: AVF CLOTTING PREVENTION ELIQUIS 2.5 2020-06 Yes [id number] TAKE 1 [facility] mg tablet 2-29 TABLET BY ity o f 00:00: MOUTH (TWO) Medical TIMES Branch DAILY. INDICATION S: AVF CLOTTING PREVENTION ELIQUIS 2.5 2020-06 Yes [id number] TAKE 1 [facility] mg tablet 2-29 TABLET BY ity o f 00:00: MOUTH 2 (TWO) Medical TIMES Branch DAILY. INDICATION S: AVF CLOTTING PREVENTION ELIQUIS 2.5 2020-06 Yes [id number] TAKE 1 [facility] mg tablet 2-29 TABLET BY ity o f 00:00: MOUTH 2 (TWO) Medical TIMES Branch DAILY. INDICATION S: AVF CLOTTING PREVENTION ELIQUIS 2.5 2020-06 Yes [id number] TAKE 1 [facility] mg tablet 2-29 TABLET BY ity o f 00:00: MOUTH 2 (TWO) Medical TIMES Branch DAILY. INDICATION S: AVF CLOTTING PREVENTION ELIQUIS 2.5 2020-06 Yes [id number] TAKE 1 [facility] mg tablet 2-29 TABLET BY ity o f 00:00: MOUTH 2 (TWO) Medical TIMES Branch DAILY. INDICATION S: AVF CLOTTING PREVENTION ELIQUIS 2.5 2020-06 Yes [id number] TAKE 1 [facility] mg tablet 2-29 TABLET BY ity o f 00:00: MOUTH 2 (TWO) Medical TIMES Branch DAILY. INDICATION S: AVF CLOTTING PREVENTION ELIQUIS 2.5 2020-06 Yes [id number] TAKE 1 [facility] mg tablet 2-29 TABLET BY ity o f 00:00: MOUTH (TWO) Medical TIMES Branch DAILY. INDICATION S: AVF CLOTTING PREVENTION ELIQUIS 2.5 2020-06 Yes [id number] TAKE 1 [facility] mg tablet 2-29 TABLET BY ity o f 00:00: MOUTH (TWO) Medical TIMES Branch DAILY. INDICATION S: AVF CLOTTING PREVENTION ELIQUIS 2.5 2020-06 Yes [id number] TAKE 1 [facility] mg tablet 2-29 TABLET BY ity o f 00:00: MOUTH 2 (TWO) Medical TIMES Branch DAILY. INDICATION S: AVF CLOTTING PREVENTION ELIQUIS 2.5 2020-06 Yes [id number] TAKE 1 [facility] mg tablet 2-29 TABLET BY ity o f 00:00: MOUTH 2 (TWO) Medical TIMES Branch DAILY. INDICATION S: AVF CLOTTING PREVENTION ELIQUIS 2.5 2020-06 Yes [id number] TAKE 1 [facility] mg tablet 2-29 TABLET BY ity o f 00:00: MOUTH 2 (TWO) Medical TIMES Branch DAILY. INDICATION S: AVF CLOTTING PREVENTION ELIQUIS 2.5 2020-06 Yes [id number] TAKE 1 [facility] mg tablet 2-29 TABLET BY ity o f 00:00: MOUTH 2 00 (TWO) Medical TIMES Branch DAILY. INDICATION S: AVF CLOTTING PREVENTION ELIQUIS 2.5 2020-06 Yes [id number] TAKE 1 [facility] mg tablet 2-29 TABLET BY ity o f 00:00: MOUTH 2 (TWO) Medical TIMES Branch DAILY. INDICATION S: AVF CLOTTING PREVENTION ELIQUIS 2.5 2020-06 Yes [id number] TAKE 1 [facility] mg tablet 2-29 TABLET BY ity o f 00:00: MOUTH 2 (TWO) Medical TIMES Branch DAILY. INDICATION S: AVF CLOTTING PREVENTION ELIQUIS 2.5 2020-06 Yes [id number] TAKE 1 [facility] mg tablet 2-29 TABLET BY ity o f 00:00: MOUTH 2 (TWO) Medical TIMES Branch DAILY. INDICATION S: AVF CLOTTING PREVENTION ELIQUIS 2.5 2020-06 Yes [id number] TAKE 1 [facility] mg tablet 2-29 TABLET BY ity o f 00:00: MOUTH (TWO) Medical TIMES Branch DAILY. INDICATION S: AVF CLOTTING PREVENTION ELIQUIS 2.5 2020-06 Yes [id number] TAKE 1 [facility] mg tablet 2-29 TABLET BY ity o f 00:00: MOUTH (TWO) Medical TIMES Branch DAILY. INDICATION S: AVF CLOTTING PREVENTION ELIQUIS 2.5 2020-06 Yes [id number] TAKE 1 [facility] mg tablet 2-29 TABLET BY ity o f 00:00: MOUTH (TWO) Medical TIMES Branch DAILY. INDICATION S: AVF CLOTTING PREVENTION ELIQUIS 2.5 2020-06 Yes [id number] TAKE 1 [facility] mg tablet 2-29 TABLET BY ity o f 00:00: MOUTH (TWO) Medical TIMES Branch DAILY. INDICATION S: AVF CLOTTING PREVENTION ELIQUIS 2.5 2020-06 Yes [id number] TAKE 1 [facility] mg tablet 2-29 TABLET BY ity o f 00:00: MOUTH 2 (TWO) Medical TIMES Branch DAILY. INDICATION S: AVF CLOTTING PREVENTION ELIQUIS 2.5 2020-06 Yes [id number] TAKE 1 [facility] mg tablet 2-29 TABLET BY ity o f 00:00: MOUTH 2 (TWO) Medical TIMES Branch DAILY. INDICATION S: AVF CLOTTING PREVENTION ELIQUIS 2.5 2020-06 Yes [id number] TAKE 1 [facility] mg tablet 2-29 TABLET BY ity o f 00:00: MOUTH 2 (TWO) Medical TIMES Branch DAILY. INDICATION S: AVF CLOTTING PREVENTION Insulin 2020-06 Yes [id number] 15U inject 15 U nivers Glargine 2-17 Units ity of (LANTUS 00:00: under the [facility] 00 skin Medical U-100 daily. Branch INSULIN) 100 unit/mL (3 mL) injection felodipine 2020-06 Yes [id number] TAKE 1 U nivers 10 mg 24 hr 2-17 TABLET BY ity of tablet 00:00: MOUTH [place] 00 DAILY. Medical Branch glipiZIDE 5 2020-06 Yes [id number] TAKE 1/2 [facility] mg tablet 2-17 TABLET BY ity o f 00:00: MOUTH [place] 00 EVERY DAY Medical WITH Branch BREAKFAST lisinopriL 2020-06 Yes [id number] 2.5mg Take 1 [facility] 2.5 mg 2-17 tablet by ity of tablet 00:00: mouth [place] 00 daily. Medical Branch metoprolol 2020-06 Yes [id number] 25mg Take 1 U nivers succinate 2-17 tablet by ity o f XL 25 mg 24 00:00: mouth 2 [place] [facility] hr tablet 00 (two) Medical times Branch daily. blood sugar 2020-06 Yes [id number] USE TO [facility] diagnostic 2-17 TEST TWICE ity of (ONETOUCH 00:00: DAILY [place] ULTRA BLUE 00 E11.9 Medical TEST STRIP) Branch strip rosuvastati 2020-06 Yes [id number] 40mg Take 1 [facility] n 40 mg 2-17 tablet by ity of tablet 00:00: mouth [place] 00 daily. Medical Branch terazosin 2 2020-06 Yes [id number] TAKE 1 [facility] mg capsule 2-17 CAPSULE BY ity of 00:00: MOUTH [place] 00 EVERY DAY Medical IN THE Branch EVENING Insulin 2020-06 Yes [id number] 15U inject 15 U nivers Glargine 2-17 Units ity of (LANTUS 00:00: under the [facility] 00 skin Medical U-100 daily. Branch INSULIN) 100 unit/mL (3 mL) injection felodipine 2020-06 Yes [id number] TAKE 1 U nivers 10 mg 24 hr 2-17 TABLET BY ity of tablet 00:00: MOUTH [place] 00 DAILY. Medical Branch glipiZIDE 5 2020-06 Yes [id number] TAKE 1/2 [facility] mg tablet 2-17 TABLET BY ity o f 00:00: MOUTH [place] 00 EVERY DAY Medical WITH Branch BREAKFAST lisinopriL 2020-06 Yes [id number] 2.5mg Take 1 [facility] 2.5 mg 2-17 tablet by ity of tablet 00:00: mouth [place] 00 daily. Medical Branch metoprolol 2020-06 Yes [id number] 25mg Take 1 U nivers succinate 2-17 tablet by ity o f XL 25 mg 24 00:00: mouth 2 [place] [facility] as hr tablet 00 (two) Medical times [place] daily. blood sugar 2020-06 Yes [id number] USE TO [facility] diagnostic 2-17 TEST TWICE ity of (ONETOUCH 00:00: DAILY [place] ULTRA BLUE 00 E11.9 Medical TEST STRIP) Branch strip rosuvastati 2020-06 Yes [id number] 40mg Take 1 [facility] n 40 mg 2-17 tablet by ity of tablet 00:00: mouth [place] 00 daily. Medical Branch terazosin 2 2020-06 Yes [id number] TAKE 1 [facility] mg capsule 2-17 CAPSULE BY ity of 00:00: MOUTH [place] 00 EVERY DAY Medical IN THE Branch EVENING Insulin 2020-06 Yes [id number] 15U inject 15 U nivers Glargine 2-17 Units ity of (LANTUS 00:00: under the [place] [facility] 00 skin Medical U-100 daily. Branch INSULIN) 100 unit/mL (3 mL) injection felodipine 2020-06 Yes [id number] TAKE 1 U nivers 10 mg 24 hr 2-17 TABLET BY ity of tablet 00:00: MOUTH [place] 00 DAILY. Medical Branch lisinopriL 2020-06 Yes [id number] 2.5mg Take 1 [facility] 2.5 mg 2-17 tablet by ity of tablet 00:00: mouth [place] 00 daily. Medical Branch metoprolol 2020-06 Yes [id number] 25mg Take 1 U nivers succinate 2-17 tablet by ity o f XL 25 mg 24 00:00: mouth 2 [facility] as hr tablet 00 (two) Medical times [place] daily. blood sugar 2020-06 Yes [id number] USE TO [facility] diagnostic 2-17 TEST TWICE ity of (ONETOUCH 00:00: DAILY [place] ULTRA BLUE 00 E11.9 Medical TEST STRIP) Branch strip rosuvastati 2020-06 Yes [id number] 40mg Take 1 [facility] n 40 mg 2-17 tablet by ity of tablet 00:00: mouth [place] 00 daily. Medical Branch terazosin 2 2020-06 Yes [id number] TAKE 1 [facility] mg capsule 2-17 CAPSULE BY ity of 00:00: MOUTH [place] 00 EVERY DAY Medical IN THE Branch EVENING Insulin 2020-06 Yes [id number] 15U inject 15 U nivers Glargine 2-17 Units ity of (LANTUS 00:00: under the [facility] 00 skin Medical U-100 daily. [place] INSULIN) 100 unit/mL (3 mL) injection felodipine 2020-06 Yes [id number] TAKE 1 U nivers 10 mg 24 hr 2-17 TABLET BY ity of tablet 00:00: MOUTH [place] 00 DAILY. Medical Branch lisinopriL 2020-06 Yes [id number] 2.5mg Take 1 [facility] 2.5 mg 2-17 tablet by [facility] of tablet 00:00: mouth [place] 00 daily. [facility] metoprolol 2020-06 Yes [id number] 25mg Take 1 [facility] nivers succinate 2-17 tablet by ity o f XL 25 mg 24 00:00: mouth 2 [facility] as hr tablet 00 (two) Medical times Branch daily. blood sugar 2020-06 Yes [id number] USE TO [facility] diagnostic 2-17 TEST TWICE [facility] of (ONETOUCH 00:00: DAILY [place] ULTRA BLUE 00 E11.9 Medical TEST STRIP) Branch strip rosuvastati 2020-06 Yes [id number] 40mg Take 1 [facility] n 40 mg 2-17 tablet by [facility] of tablet 00:00: mouth [place] 00 daily. Medical Branch terazosin 2 2020-06 Yes [id number] TAKE 1 [facility] mg capsule 2-17 CAPSULE BY ity of 00:00: MOUTH [place] 00 EVERY DAY Medical IN THE Branch EVENING Insulin 2020-06 Yes [id number] 15U inject 15 U nivers Glargine 2-17 Units ity of (LANTUS 00:00: under the [facility] 00 skin Medical U-100 daily. [place] INSULIN) 100 unit/mL (3 mL) injection felodipine 2020-06 Yes [id number] TAKE 1 U nivers 10 mg 24 hr 2-17 TABLET BY ity of tablet 00:00: MOUTH [place] 00 DAILY. Medical Branch lisinopriL 2020-06 Yes [id number] 2.5mg Take 1 [facility] 2.5 mg 2-17 tablet by ity of tablet 00:00: mouth [place] 00 daily. Medical Branch metoprolol 2020-06 Yes [id number] 25mg Take 1 U nivers succinate 2-17 tablet by ity o f XL 25 mg 24 00:00: mouth 2 [facility] as hr tablet 00 (two) Medical times [place] daily. blood sugar 2020-06 Yes [id number] USE TO [facility] diagnostic 2-17 TEST TWICE ity of (ONETOUCH 00:00: DAILY [place] ULTRA BLUE 00 E11.9 Medical TEST STRIP) Branch strip rosuvastati 2020-06 Yes [id number] 40mg Take 1 [facility] n 40 mg 2-17 tablet by it[facility] of tablet 00:00: mouth [place] 00 daily. Medical Branch terazosin 2 2020-06 Yes [id number] TAKE 1 [facility] mg capsule 2-17 CAPSULE BY ity of 00:00: MOUTH [place] 00 EVERY DAY Medical IN THE Branch EVENING Insulin 2020-06 Yes [id number] 15U inject 15 U nivers Glargine 2-17 Units ity of (LANTUS 00:00: under the [place] [facility] 00 skin Medical U-100 daily. [place] INSULIN) 100 unit/mL (3 mL) injection felodipine 2020-06 Yes [id number] TAKE 1 U nivers 10 mg 24 hr 2-17 TABLET BY ity of tablet 00:00: MOUTH [place] 00 DAILY. Medical Branch lisinopriL 2020-06 Yes [id number] 2.5mg Take 1 [facility] 2.5 mg 2-17 tablet by ity of tablet 00:00: mouth [place] 00 daily. Medical Branch metoprolol 2020-06 Yes [id number] 25mg Take 1 U nivers succinate 2-17 tablet by ity o f XL 25 mg 24 00:00: mouth 2 [facility] as hr tablet 00 (two) Medical [facility] daily. blood sugar 2020-06 Yes [id number] USE TO [facility] diagnostic 2-17 TEST TWICE ity of (ONETOUCH 00:00: DAILY [place] ULTRA BLUE 00 E11.9 Medical TEST STRIP) Branch strip rosuvastati 2020-06 Yes [id number] 40mg Take 1 [facility] n 40 mg 2-17 tablet by ity of tablet 00:00: mouth [place] 00 daily. Medical Branch terazosin 2 2020-06 Yes [id number] TAKE 1 [facility] mg capsule 2-17 CAPSULE BY ity of 00:00: MOUTH [place] 00 EVERY DAY Medical IN THE Branch EVENING Insulin 2020-06 Yes [id number] 15U inject 15 U nivers Glargine 2-17 Units ity of (LANTUS 00:00: under the [facility] 00 skin Medical U-100 daily. Branch INSULIN) 100 unit/mL (3 mL) injection felodipine 2020-06 Yes [id number] TAKE 1 U nivers 10 mg 24 hr 2-17 TABLET BY ity of tablet 00:00: MOUTH [place] 00 DAILY. Medical Branch lisinopriL 2020-06 Yes [id number] 2.5mg Take 1 [facility] 2.5 mg 2-17 tablet by ity of tablet 00:00: mouth [place] 00 daily. Medical Branch metoprolol 2020-06 Yes [id number] 25mg Take 1 U nivers succinate 2-17 tablet by ity o f XL 25 mg 24 00:00: mouth 2 [facility] as hr tablet 00 (two) Medical [facility] daily. blood sugar 2020-06 Yes [id number] USE TO [facility] diagnostic 2-17 TEST TWICE ity of (ONETOUCH 00:00: DAILY [place] ULTRA BLUE 00 E11.9 Medical TEST STRIP) Branch strip rosuvastati 2020-06 Yes [id number] 40mg Take 1 [facility] n 40 mg 2-17 tablet by ity of tablet 00:00: mouth [place] 00 daily. Medical Branch terazosin 2 2020-06 Yes [id number] TAKE 1 [facility] mg capsule 2-17 CAPSULE BY ity of 00:00: MOUTH [place] 00 EVERY DAY Medical IN THE Branch EVENING Insulin 2020-06 Yes [id number] 15U inject 15 U nivers Glargine 2-17 Units ity of (LANTUS 00:00: under the [facility] 00 skin Medical U-100 daily. Branch INSULIN) 100 unit/mL (3 mL) injection felodipine 2020-06 Yes [id number] TAKE 1 U nivers 10 mg 24 hr 2-17 TABLET BY ity of tablet 00:00: MOUTH [place] 00 DAILY. Medical Branch lisinopriL 2020-06 Yes [id number] 2.5mg Take 1 [facility] 2.5 mg 2-17 tablet by ity of tablet 00:00: mouth [place] 00 daily. Medical Branch metoprolol 2020-06 Yes [id number] 25mg Take 1 U nivers succinate 2-17 tablet by ity o f XL 25 mg 24 00:00: mouth 2 [facility] as hr tablet 00 (two) Medical [facility] daily. blood sugar 2020-06 Yes [id number] USE TO [facility] diagnostic 2-17 TEST TWICE ity of (ONETOUCH 00:00: DAILY [place] ULTRA BLUE 00 E11.9 Medical TEST STRIP) Branch strip rosuvastati 2020-06 Yes [id number] 40mg Take 1 [facility] n 40 mg 2-17 tablet by ity of tablet 00:00: mouth [place] 00 daily. Medical Branch terazosin 2 2020-06 Yes [id number] TAKE 1 [facility] mg capsule 2-17 CAPSULE BY ity of 00:00: MOUTH [place] 00 EVERY DAY Medical IN THE Branch EVENING Insulin 2020-06 Yes [id number] 15U inject 15 U nivers Glargine 2-17 Units ity of (LANTUS 00:00: under the [place] [facility] 00 skin Medical U-100 daily. [place] INSULIN) 100 unit/mL (3 mL) injection felodipine 2020-06 Yes [id number] TAKE 1 U nivers 10 mg 24 hr 2-17 TABLET BY ity of tablet 00:00: MOUTH [place] 00 DAILY. Medical Branch lisinopriL 2020-06 Yes [id number] 2.5mg Take 1 [facility] 2.5 mg 2-17 tablet by ity of tablet 00:00: mouth [place] 00 daily. Medical Branch metoprolol 2020-06 Yes [id number] 25mg Take 1 U nivers succinate 2-17 tablet by ity o f XL 25 mg 24 00:00: mouth 2 [facility] as hr tablet 00 (two) Medical times [place] daily. blood sugar 2020-06 Yes [id number] USE TO [facility] diagnostic 2-17 TEST TWICE ity of (ONETOUCH 00:00: DAILY [place] ULTRA BLUE 00 E11.9 Medical TEST STRIP) Branch strip rosuvastati 2020-06 Yes [id number] 40mg Take 1 [facility] n 40 mg 2-17 tablet by ity of tablet 00:00: mouth [place] 00 daily. Medical Branch terazosin 2 2020-06 Yes [id number] TAKE 1 [facility] mg capsule 2-17 CAPSULE BY ity of 00:00: MOUTH [place] 00 EVERY DAY Medical IN THE Branch EVENING Insulin 2020-06 Yes [id number] 15U inject 15 U nivers Glargine 2-17 Units ity of (LANTUS 00:00: under the [place] [facility] 00 skin Medical U-100 daily. [place] INSULIN) 100 unit/mL (3 mL) injection felodipine 2020-06 Yes [id number] TAKE 1 U nivers 10 mg 24 hr 2-17 TABLET BY ity of tablet 00:00: MOUTH [place] 00 DAILY. Medical Branch lisinopriL 2020-06 Yes [id number] 2.5mg Take 1 [facility] 2.5 mg 2-17 tablet by ity of tablet 00:00: mouth [place] 00 daily. Medical Branch metoprolol 2020-06 Yes [id number] 25mg Take 1 U nivers succinate 2-17 tablet by ity o f XL 25 mg 24 00:00: mouth 2 [facility] as hr tablet 00 (two) Medical times [place] daily. blood sugar 2020-06 Yes [id number] USE TO [facility] diagnostic 2-17 TEST TWICE ity of (ONETOUCH 00:00: DAILY [place] ULTRA BLUE 00 E11.9 Medical TEST STRIP) Branch strip rosuvastati 2020-06 Yes [id number] 40mg Take 1 [facility] n 40 mg 2-17 tablet by ity of tablet 00:00: mouth [place] 00 daily. Medical Branch terazosin 2 2020-06 Yes [id number] TAKE 1 [facility] mg capsule 2-17 CAPSULE BY ity of 00:00: MOUTH [place] 00 EVERY DAY Medical IN THE Branch EVENING Insulin 2020-06 Yes [id number] 15U inject 15 U nivers Glargine 2-17 Units ity of (LANTUS 00:00: under the [place] [facility] 00 skin Medical U-100 daily. [place] INSULIN) 100 unit/mL (3 mL) injection felodipine 2020-06 Yes [id number] TAKE 1 U nivers 10 mg 24 hr 2-17 TABLET BY ity of tablet 00:00: MOUTH [place] 00 DAILY. Medical Branch lisinopriL 2020-06 Yes [id number] 2.5mg Take 1 [facility] 2.5 mg 2-17 tablet by ity of tablet 00:00: mouth [place] 00 daily. Medical Branch metoprolol 2020-06 Yes [id number] 25mg Take 1 U nivers succinate 2-17 tablet by ity o f XL 25 mg 24 00:00: mouth 2 [facility] as hr tablet 00 (two) Medical times [place] daily. blood sugar 2020-06 Yes [id number] USE TO [facility] diagnostic 2-17 TEST TWICE ity of (ONETOUCH 00:00: DAILY [place] ULTRA BLUE 00 E11.9 Medical TEST STRIP) Branch strip rosuvastati 2020-06 Yes [id number] 40mg Take 1 [facility] n 40 mg 2-17 tablet by ity of tablet 00:00: mouth [place] 00 daily. Medical Branch terazosin 2 2020-06 Yes [id number] TAKE 1 [facility] mg capsule 2-17 CAPSULE BY ity of 00:00: MOUTH [place] 00 EVERY DAY Medical IN THE Branch EVENING Insulin 2020-06 Yes [id number] 15U inject 15 U nivers Glargine 2-17 Units ity of (LANTUS 00:00: under the [place] [address] skin Medical U-100 daily. [place] INSULIN) 100 unit/mL (3 mL) injection felodipine 2020-06 Yes [id number] TAKE 1 U nivers 10 mg 24 hr 2-17 TABLET BY ity of tablet 00:00: MOUTH [place] 00 DAILY. Medical Branch lisinopriL 2020-06 Yes [id number] 2.5mg Take 1 [facility] 2.5 mg 2-17 tablet by ity of tablet 00:00: mouth [place] 00 daily. Medical Branch metoprolol 2020-06 Yes [id number] 25mg Take 1 U nivers succinate 2-17 tablet by ity o f XL 25 mg 24 00:00: mouth 2 [facility] as hr tablet 00 (two) Medical times [place] daily. blood sugar 2020-06 Yes [id number] USE TO [facility] diagnostic 2-17 TEST TWICE ity of (ONETOUCH 00:00: DAILY [place] ULTRA BLUE 00 E11.9 Medical TEST STRIP) Branch strip rosuvastati 2020-06 Yes [id number] 40mg Take 1 [facility] n 40 mg 2-17 tablet by ity of tablet 00:00: mouth [place] 00 daily. Medical Branch terazosin 2 2020-06 Yes [id number] TAKE 1 [facility] mg capsule 2-17 CAPSULE BY ity of 00:00: MOUTH [place] 00 EVERY DAY Medical IN THE Branch EVENING Insulin 2020-06 Yes [id number] 15U inject 15 U nivers Glargine 2-17 Units ity of (LANTUS 00:00: under the [place] [address] skin Medical U-100 daily. [place] INSULIN) 100 unit/mL (3 mL) injection felodipine 2020-06 Yes [id number] TAKE 1 U nivers 10 mg 24 hr 2-17 TABLET BY ity of tablet 00:00: MOUTH [place] 00 DAILY. Medical Branch lisinopriL 2020-06 Yes [id number] 2.5mg Take 1 [facility] 2.5 mg 2-17 tablet by ity of tablet 00:00: mouth [place] 00 daily. Medical Branch metoprolol 2020-06 Yes [id number] 25mg Take 1 U nivers succinate 2-17 tablet by ity o f XL 25 mg 24 00:00: mouth 2 [facility] as hr tablet 00 (two) Medical times [place] daily. blood sugar 2020-06 Yes [id number] USE TO [facility] diagnostic 2-17 TEST TWICE ity of (ONETOUCH 00:00: DAILY [place] ULTRA BLUE 00 E11.9 Medical TEST STRIP) Branch strip rosuvastati 2020-06 Yes [id number] 40mg Take 1 [facility] n 40 mg 2-17 tablet by ity of tablet 00:00: mouth [place] 00 daily. Medical Branch terazosin 2 2020-06 Yes [id number] TAKE 1 [facility] mg capsule 2-17 CAPSULE BY ity of 00:00: MOUTH [place] 00 EVERY DAY Medical IN THE [place] EVENING Insulin 2020-06 Yes [id number] 15U inject 15 U nivers Glargine 2-17 Units ity of (LANTUS 00:00: under the [place] [facility] 00 skin Medical U-100 daily. [place] INSULIN) 100 unit/mL (3 mL) injection felodipine 2020-06 Yes [id number] TAKE 1 U nivers 10 mg 24 hr 2-17 TABLET BY ity of tablet 00:00: MOUTH [place] 00 DAILY. Medical Branch lisinopriL 2020-06 Yes [id number] 2.5mg Take 1 [facility] 2.5 mg 2-17 tablet by ity of tablet 00:00: mouth [place] 00 daily. Medical Branch metoprolol 2020-06 Yes [id number] 25mg Take 1 U nivers succinate 2-17 tablet by ity o f XL 25 mg 24 00:00: mouth 2 [facility] as hr tablet 00 (two) Medical times [place] daily. blood sugar 2020-06 Yes [id number] USE TO [facility] diagnostic 2-17 TEST TWICE ity of (ONETOUCH 00:00: DAILY [place] ULTRA BLUE 00 E11.9 Medical TEST STRIP) Branch strip rosuvastati 2020-06 Yes [id number] 40mg Take 1 [facility] n 40 mg 2-17 tablet by ity of tablet 00:00: mouth [place] 00 daily. Medical Branch terazosin 2 2020-06 Yes [id number] TAKE 1 [facility] mg capsule 2-17 CAPSULE BY ity of 00:00: MOUTH [place] 00 EVERY DAY Medical IN THE Branch EVENING Insulin 2020-06 Yes [id number] 15U inject 15 U nivers Glargine 2-17 Units ity of (LANTUS 00:00: under the [place] [address] skin Medical U-100 daily. [place] INSULIN) 100 unit/mL (3 mL) injection felodipine 2020-06 Yes [id number] TAKE 1 U nivers 10 mg 24 hr 2-17 TABLET BY ity of tablet 00:00: MOUTH [place] 00 DAILY. Medical Branch lisinopriL 2020-06 Yes [id number] 2.5mg Take 1 [facility] 2.5 mg 2-17 tablet by ity of tablet 00:00: mouth [place] 00 daily. Medical Branch metoprolol 2020-06 Yes [id number] 25mg Take 1 U nivers succinate 2-17 tablet by ity o f XL 25 mg 24 00:00: mouth 2 [facility] as hr tablet 00 (two) Medical times [place] daily. blood sugar 2020-06 Yes [id number] USE TO [facility] diagnostic 2-17 TEST TWICE ity of (ONETOUCH 00:00: DAILY [place] ULTRA BLUE 00 E11.9 Medical TEST STRIP) Branch strip rosuvastati 2020-06 Yes [id number] 40mg Take 1 [facility] n 40 mg 2-17 tablet by ity of tablet 00:00: mouth [place] 00 daily. Medical Branch terazosin 2 2020-06 Yes [id number] TAKE 1 [facility] mg capsule 2-17 CAPSULE BY ity of 00:00: MOUTH [place] 00 EVERY DAY Medical IN THE Branch EVENING Insulin 2020-06 Yes [id number] 15U inject 15 U nivers Glargine 2-17 Units ity of (LANTUS 00:00: under the [place] [address] skin Medical U-100 daily. Branch INSULIN) 100 unit/mL (3 mL) injection felodipine 2020-06 Yes [id number] TAKE 1 U nivers 10 mg 24 hr 2-17 TABLET BY ity of tablet 00:00: MOUTH [place] 00 DAILY. Medical Branch lisinopriL 2020-06 Yes [id number] 2.5mg Take 1 [facility] 2.5 mg 2-17 tablet by ity of tablet 00:00: mouth [place] 00 daily. Medical Branch metoprolol 2020-06 Yes [id number] 25mg Take 1 U nivers succinate 2-17 tablet by ity o f XL 25 mg 24 00:00: mouth 2 [facility] as hr tablet 00 (two) Medical times [place] daily. blood sugar 2020-06 Yes [id number] USE TO [facility] diagnostic 2-17 TEST TWICE ity of (ONETOUCH 00:00: DAILY [place] ULTRA BLUE 00 E11.9 Medical TEST STRIP) Branch strip rosuvastati 2020-06 Yes [id number] 40mg Take 1 [facility] n 40 mg 2-17 tablet by ity of tablet 00:00: mouth [place] 00 daily. Medical Branch terazosin 2 2020-06 Yes [id number] TAKE 1 [facility] mg capsule 2-17 CAPSULE BY ity of 00:00: MOUTH [place] 00 EVERY DAY Medical IN THE Branch EVENING Insulin 2020-06 Yes [id number] 15U inject 15 U nivers Glargine 2-17 Units ity of (LANTUS 00:00: under the [place] [facility] 00 skin Medical U-100 daily. Branch INSULIN) 100 unit/mL (3 mL) injection felodipine 2020-06 Yes [id number] TAKE 1 U nivers 10 mg 24 hr 2-17 TABLET BY ity of tablet 00:00: MOUTH [place] 00 DAILY. Medical Branch lisinopriL 2020-06 Yes [id number] 2.5mg Take 1 [facility] 2.5 mg 2-17 tablet by ity of tablet 00:00: mouth [place] 00 daily. Medical Branch metoprolol 2020-06 Yes [id number] 25mg Take 1 U nivers succinate 2-17 tablet by ity o f XL 25 mg 24 00:00: mouth 2 [facility] as hr tablet 00 (two) Medical times [place] daily. blood sugar 2020-06 Yes [id number] USE TO [facility] diagnostic 2-17 TEST TWICE ity of (ONETOUCH 00:00: DAILY [place] ULTRA BLUE 00 E11.9 Medical TEST STRIP) Branch strip rosuvastati 2020-06 Yes [id number] 40mg Take 1 [facility] n 40 mg 2-17 tablet by ity of tablet 00:00: mouth [place] 00 daily. Medical Branch terazosin 2 2020-06 Yes [id number] TAKE 1 [facility] mg capsule 2-17 CAPSULE BY ity of 00:00: MOUTH [place] 00 EVERY DAY Medical IN THE Branch EVENING Insulin 2020-06 Yes [id number] 15U inject 15 U nivers Glargine 2-17 Units ity of (LANTUS 00:00: under the [place] [address] skin Medical U-100 daily. Branch INSULIN) 100 unit/mL (3 mL) injection felodipine 2020-06 Yes [id number] TAKE 1 U nivers 10 mg 24 hr 2-17 TABLET BY ity of tablet 00:00: MOUTH [place] 00 DAILY. Medical Branch lisinopriL 2020-06 Yes [id number] 2.5mg Take 1 [facility] 2.5 mg 2-17 tablet by ity of tablet 00:00: mouth [place] 00 daily. Medical Branch metoprolol 2020-06 Yes [id number] 25mg Take 1 U nivers succinate 2-17 tablet by ity o f XL 25 mg 24 00:00: mouth 2 [facility] as hr tablet 00 (two) Medical times [place] daily. blood sugar 2020-06 Yes [id number] USE TO [facility] diagnostic 2-17 TEST TWICE ity of (ONETOUCH 00:00: DAILY [place] ULTRA BLUE 00 E11.9 Medical TEST STRIP) Branch strip rosuvastati 2020-06 Yes [id number] 40mg Take 1 [facility] n 40 mg 2-17 tablet by ity of tablet 00:00: mouth [place] 00 daily. Medical Branch terazosin 2 2020-06 Yes [id number] TAKE 1 [facility] mg capsule 2-17 CAPSULE BY ity of 00:00: MOUTH [place] 00 EVERY DAY Medical IN THE Branch EVENING Insulin 2020-06 Yes [id number] 15U inject 15 U nivers Glargine 2-17 Units ity of (LANTUS 00:00: under the [place] [address] skin Medical U-100 daily. Branch INSULIN) 100 unit/mL (3 mL) injection felodipine 2020-06 Yes [id number] TAKE 1 U nivers 10 mg 24 hr 2-17 TABLET BY ity of tablet 00:00: MOUTH [place] 00 DAILY. Medical Branch lisinopriL 2020-06 Yes [id number] 2.5mg Take 1 [facility] 2.5 mg 2-17 tablet by ity of tablet 00:00: mouth [place] 00 daily. Medical Branch metoprolol 2020-06 Yes [id number] 25mg Take 1 U nivers succinate 2-17 tablet by ity o f XL 25 mg 24 00:00: mouth 2 [facility] as hr tablet 00 (two) Medical times [place] daily. blood sugar 2020-06 Yes [id number] USE TO [facility] diagnostic 2-17 TEST TWICE ity of (ONETOUCH 00:00: DAILY [place] ULTRA BLUE 00 E11.9 Medical TEST STRIP) Branch strip rosuvastati 2020-06 Yes [id number] 40mg Take 1 [facility] n 40 mg 2-17 tablet by ity of tablet 00:00: mouth [place] 00 daily. Medical Branch terazosin 2 2020-06 Yes [id number] TAKE 1 [facility] mg capsule 2-17 CAPSULE BY ity of 00:00: MOUTH [place] 00 EVERY DAY Medical IN THE Branch EVENING Insulin 2020-06 Yes [id number] 15U inject 15 U nivers Glargine 2-17 Units ity of (LANTUS 00:00: under the [place] [facility] 00 skin Medical U-100 daily. Branch INSULIN) 100 unit/mL (3 mL) injection felodipine 2020-06 Yes [id number] TAKE 1 U nivers 10 mg 24 hr 2-17 TABLET BY ity of tablet 00:00: MOUTH [place] 00 DAILY. Medical Branch lisinopriL 2020-06 Yes [id number] 2.5mg Take 1 [facility] 2.5 mg 2-17 tablet by ity of tablet 00:00: mouth [place] 00 daily. Medical Branch metoprolol 2020-06 Yes [id number] 25mg Take 1 U nivers succinate 2-17 tablet by ity o f XL 25 mg 24 00:00: mouth 2 [facility] as hr tablet 00 (two) Medical times [place] daily. blood sugar 2020-06 Yes [id number] USE TO [facility] diagnostic 2-17 TEST TWICE ity of (ONETOUCH 00:00: DAILY [place] ULTRA BLUE 00 E11.9 Medical TEST STRIP) Branch strip rosuvastati 2020-06 Yes [id number] 40mg Take 1 [facility] n 40 mg 2-17 tablet by ity of tablet 00:00: mouth [place] 00 daily. Medical Branch terazosin 2 2020-06 Yes [id number] TAKE 1 [facility] mg capsule 2-17 CAPSULE BY ity of 00:00: MOUTH [place] 00 EVERY DAY Medical IN THE Branch EVENING Insulin 2020-06 Yes [id number] 15U inject 15 U nivers Glargine 2-17 Units ity of (LANTUS 00:00: under the [place] [facility] 00 skin Medical U-100 daily. [place] INSULIN) 100 unit/mL (3 mL) injection felodipine 2020-06 Yes [id number] TAKE 1 U nivers 10 mg 24 hr 2-17 TABLET BY ity of tablet 00:00: MOUTH [place] 00 DAILY. Medical Branch lisinopriL 2020-06 Yes [id number] 2.5mg Take 1 [facility] 2.5 mg 2-17 tablet by ity of tablet 00:00: mouth [place] 00 daily. Medical Branch metoprolol 2020-06 Yes [id number] 25mg Take 1 U nivers succinate 2-17 tablet by ity o f XL 25 mg 24 00:00: mouth 2 [facility] as hr tablet 00 (two) Medical times [place] daily. blood sugar 2020-06 Yes [id number] USE TO [facility] diagnostic 2-17 TEST TWICE ity of (ONETOUCH 00:00: DAILY [place] ULTRA BLUE 00 E11.9 Medical TEST STRIP) Branch strip rosuvastati 2020-06 Yes [id number] 40mg Take 1 [facility] n 40 mg 2-17 tablet by ity of tablet 00:00: mouth [place] 00 daily. Medical Branch terazosin 2 2020-06 Yes [id number] TAKE 1 [facility] mg capsule 2-17 CAPSULE BY ity of 00:00: MOUTH [place] 00 EVERY DAY Medical IN THE Branch EVENING Insulin 2020-06 Yes [id number] 15U inject 15 U nivers Glargine 2-17 Units ity of (LANTUS 00:00: under the [place] [facility] 00 skin Medical U-100 daily. Branch INSULIN) 100 unit/mL (3 mL) injection felodipine 2020-06 Yes [id number] TAKE 1 U nivers 10 mg 24 hr 2-17 TABLET BY ity of tablet 00:00: MOUTH [place] 00 DAILY. Medical Branch lisinopriL 2020-06 Yes [id number] 2.5mg Take 1 [facility] 2.5 mg 2-17 tablet by ity of tablet 00:00: mouth [place] 00 daily. Medical Branch metoprolol 2020-06 Yes [id number] 25mg Take 1 U nivers succinate 2-17 tablet by ity o f XL 25 mg 24 00:00: mouth 2 [facility] as hr tablet 00 (two) Medical [facility] daily. blood sugar 2020-06 Yes [id number] USE TO [facility] diagnostic 2-17 TEST TWICE ity of (ONETOUCH 00:00: DAILY [place] ULTRA BLUE 00 E11.9 Medical TEST STRIP) Branch strip rosuvastati 2020-06 Yes [id number] 40mg Take 1 [facility] n 40 mg 2-17 tablet by ity of tablet 00:00: mouth [place] 00 daily. Medical Branch terazosin 2 2020-06 Yes [id number] TAKE 1 [facility] mg capsule 2-17 CAPSULE BY ity of 00:00: MOUTH [place] 00 EVERY DAY Medical IN THE Branch EVENING Insulin 2020-06 Yes [id number] 15U inject 15 U nivers Glargine 2-17 Units ity of (LANTUS 00:00: under the [place] [address] skin Medical U-100 daily. [place] INSULIN) 100 unit/mL (3 mL) injection felodipine 2020-06 Yes [id number] TAKE 1 U nivers 10 mg 24 hr 2-17 TABLET BY ity of tablet 00:00: MOUTH [place] 00 DAILY. Medical Branch lisinopriL 2020-06 Yes [id number] 2.5mg Take 1 [facility] 2.5 mg 2-17 tablet by ity of tablet 00:00: mouth [place] 00 daily. Medical Branch metoprolol 2020-06 Yes [id number] 25mg Take 1 U nivers succinate 2-17 tablet by ity o f XL 25 mg 24 00:00: mouth 2 [facility] as hr tablet 00 (two) Medical times [place] daily. blood sugar 2020-06 Yes [id number] USE TO [facility] diagnostic 2-17 TEST TWICE ity of (ONETOUCH 00:00: DAILY [place] ULTRA BLUE 00 E11.9 Medical TEST STRIP) Branch strip rosuvastati 2020-06 Yes [id number] 40mg Take 1 [facility] n 40 mg 2-17 tablet by ity of tablet 00:00: mouth [place] 00 daily. Medical Branch terazosin 2 2020-06 Yes [id number] TAKE 1 [facility] mg capsule 2-17 CAPSULE BY ity of 00:00: MOUTH [place] 00 EVERY DAY Medical IN THE Branch EVENING Insulin 2020-06 Yes [id number] 15U inject 15 U nivers Glargine 2-17 Units ity of (LANTUS 00:00: under the [facility] 00 skin Medical U-100 daily. [place] INSULIN) 100 unit/mL (3 mL) injection felodipine 2020-06 Yes [id number] TAKE 1 U nivers 10 mg 24 hr 2-17 TABLET BY ity of tablet 00:00: MOUTH [place] 00 DAILY. Medical Branch lisinopriL 2020-06 Yes [id number] 2.5mg Take 1 [facility] 2.5 mg 2-17 tablet by ity of tablet 00:00: mouth [place] 00 daily. Medical Branch metoprolol 2020-06 Yes [id number] 25mg Take 1 U nivers succinate 2-17 tablet by ity o f XL 25 mg 24 00:00: mouth 2 [facility] as hr tablet 00 (two) Medical [facility] daily. blood sugar 2020-06 Yes [id number] USE TO [facility] diagnostic 2-17 TEST TWICE ity of (ONETOUCH 00:00: DAILY [place] ULTRA BLUE 00 E11.9 Medical TEST STRIP) Branch strip rosuvastati 2020-06 Yes [id number] 40mg Take 1 [facility] n 40 mg 2-17 tablet by ity of tablet 00:00: mouth [place] 00 daily. Medical Branch terazosin 2 2020-06 Yes [id number] TAKE 1 [facility] mg capsule 2-17 CAPSULE BY ity of 00:00: MOUTH [place] 00 EVERY DAY Medical IN THE [place] EVENING Insulin 2020-06 Yes [id number] 15U inject 15 U nivers Glargine 2-17 Units ity of (LANTUS 00:00: under the [place] [facility] 00 skin Medical U-100 daily. [place] INSULIN) 100 unit/mL (3 mL) injection felodipine 2020-06 Yes [id number] TAKE 1 U nivers 10 mg 24 hr 2-17 TABLET BY ity of tablet 00:00: MOUTH [place] 00 DAILY. Medical Branch lisinopriL 2020-06 Yes [id number] 2.5mg Take 1 [facility] 2.5 mg 2-17 tablet by ity of tablet 00:00: mouth [place] 00 daily. Medical Branch metoprolol 2020-06 Yes [id number] 25mg Take 1 U nivers succinate 2-17 tablet by ity o f XL 25 mg 24 00:00: mouth 2 [facility] as hr tablet 00 (two) Medical [facility] daily. blood sugar 2020-06 Yes [id number] USE TO [facility] diagnostic 2-17 TEST TWICE ity of (ONETOUCH 00:00: DAILY [place] ULTRA BLUE 00 E11.9 Medical TEST STRIP) Branch strip rosuvastati 2020-06 Yes [id number] 40mg Take 1 [facility] n 40 mg 2-17 tablet by ity of tablet 00:00: mouth [place] 00 daily. Medical Branch terazosin 2 2020-06 Yes [id number] TAKE 1 [facility] mg capsule 2-17 CAPSULE BY ity of 00:00: MOUTH [place] 00 EVERY DAY Medical IN THE [place] EVENING Insulin 2020-06 Yes [id number] 15U inject 15 U nivers Glargine 2-17 Units ity of (LANTUS 00:00: under the [place] [address] skin Medical U-100 daily. [place] INSULIN) 100 unit/mL (3 mL) injection felodipine 2020-06 Yes [id number] TAKE 1 U nivers 10 mg 24 hr 2-17 TABLET BY ity of tablet 00:00: MOUTH [place] 00 DAILY. Medical Branch lisinopriL 2020-06 Yes [id number] 2.5mg Take 1 [facility] 2.5 mg 2-17 tablet by ity of tablet 00:00: mouth [place] 00 daily. Medical Branch metoprolol 2020-06 Yes [id number] 25mg Take 1 U nivers succinate 2-17 tablet by ity o f XL 25 mg 24 00:00: mouth 2 [facility] as hr tablet 00 (two) Medical times [place] daily. blood sugar 2020-06 Yes [id number] USE TO [facility] diagnostic 2-17 TEST TWICE ity of (ONETOUCH 00:00: DAILY [place] ULTRA BLUE 00 E11.9 Medical TEST STRIP) Branch strip rosuvastati 2020-06 Yes [id number] 40mg Take 1 [facility] n 40 mg 2-17 tablet by ity of tablet 00:00: mouth [place] 00 daily. [facility] Branch terazosin 2 2020-06 Yes [id number] TAKE 1 [facility] mg capsule 2-17 CAPSULE BY ity of 00:00: MOUTH [place] 00 EVERY DAY Medical IN THE [place] EVENING Insulin 2020-06 Yes [id number] 15U inject 15 U nivers Glargine 2-17 Units ity of (LANTUS 00:00: under the [place] [address] skin Medical U-100 daily. [place] INSULIN) 100 unit/mL (3 mL) injection felodipine 2020-06 Yes [id number] TAKE 1 U nivers 10 mg 24 hr 2-17 TABLET BY ity of tablet 00:00: MOUTH [place] 00 DAILY. [facility] Branch lisinopriL 2020-06 Yes [id number] 2.5mg Take 1 [facility] 2.5 mg 2-17 tablet by ity of tablet 00:00: mouth [place] 00 daily. [facility] Branch metoprolol 2020-06 Yes [id number] 25mg Take 1 U nivers succinate 2-17 tablet by ity o f XL 25 mg 24 00:00: mouth 2 [facility] as hr tablet 00 (two) Medical times [place] daily. blood sugar 2020-06 Yes [id number] USE TO [facility] diagnostic 2-17 TEST TWICE ity of (ONETOUCH 00:00: DAILY [place] ULTRA BLUE 00 E11.9 Medical TEST STRIP) Branch strip rosuvastati 2020-06 Yes [id number] 40mg Take 1 [facility] n 40 mg 2-17 tablet by ity of tablet 00:00: mouth [place] 00 daily. Medical Branch terazosin 2 2020-06 Yes [id number] TAKE 1 [facility] mg capsule 2-17 CAPSULE BY ity of 00:00: MOUTH [place] 00 EVERY DAY Medical IN THE [place] EVENING Insulin 2020-06 Yes [id number] 15U inject 15 U nivers Glargine 2-17 Units ity of (LANTUS 00:00: under the [place] 00 skin Medical U-100 daily. [place] INSULIN) 100 unit/mL (3 mL) injection felodipine 2020-06 Yes [id number] TAKE 1 U nivers 10 mg 24 hr 2-17 TABLET BY ity of tablet 00:00: MOUTH [place] 00 DAILY. Medical Branch lisinopriL 2020-06 Yes [id number] 2.5mg Take 1 [facility] 2.5 mg 2-17 tablet by ity of tablet 00:00: mouth [place] 00 daily. Medical Branch metoprolol 2020-06 Yes [id number] 25mg Take 1 U nivers succinate 2-17 tablet by ity o f XL 25 mg 24 00:00: mouth 2 [place] as hr tablet 00 (two) Medical [facility] daily. blood sugar 2020-06 Yes [id number] USE TO [facility] diagnostic 2-17 TEST TWICE ity of (ONETOUCH 00:00: DAILY [place] ULTRA BLUE 00 E11.9 Medical TEST STRIP) Branch strip rosuvastati 2020-06 Yes [id number] 40mg Take 1 [facility] n 40 mg 2-17 tablet by ity of tablet 00:00: mouth [place] 00 daily. Medical Branch terazosin 2 2020-06 Yes [id number] TAKE 1 [facility] mg capsule 2-17 CAPSULE BY ity of 00:00: MOUTH [place] 00 EVERY DAY Medical IN THE [place] EVENING Insulin 2020-06 Yes [id number] 15U inject 15 U nivers Glargine 2-17 Units ity of (LANTUS 00:00: under the [place] 00 skin Medical U-100 daily. Branch INSULIN) 100 unit/mL (3 mL) injection felodipine 2020-06 Yes [id number] TAKE 1 U nivers 10 mg 24 hr 2-17 TABLET BY ity of tablet 00:00: MOUTH [place] 00 DAILY. Medical Branch lisinopriL 2020-06 Yes [id number] 2.5mg Take 1 [facility] 2.5 mg 2-17 tablet by ity of tablet 00:00: mouth [place] 00 daily. Medical Branch metoprolol 2020-06 Yes [id number] 25mg Take 1 U nivers succinate 2-17 tablet by ity o f XL 25 mg 24 00:00: mouth 2 [facility] as hr tablet 00 (two) Medical times [place] daily. blood sugar 2020-06 Yes [id number] USE TO [facility] diagnostic 2-17 TEST TWICE ity of (ONETOUCH 00:00: DAILY [place] ULTRA BLUE 00 E11.9 Medical TEST STRIP) Branch strip rosuvastati 2020-06 Yes [id number] 40mg Take 1 [facility] n 40 mg 2-17 tablet by ity of tablet 00:00: mouth [place] 00 daily. Medical Branch terazosin 2 2020-06 Yes [id number] TAKE 1 [facility] mg capsule 2-17 CAPSULE BY ity of 00:00: MOUTH [place] 00 EVERY DAY Medical IN THE Branch EVENING Insulin 2020-06 Yes [id number] 15U inject 15 U nivers Glargine 2-17 Units ity of (LANTUS 00:00: under the [place] 00 skin Medical U-100 daily. Branch INSULIN) 100 unit/mL (3 mL) injection felodipine 2020-06 Yes [id number] TAKE 1 U nivers 10 mg 24 hr 2-17 TABLET BY ity of tablet 00:00: MOUTH [place] 00 DAILY. Medical Branch lisinopriL 2020-06 Yes [id number] 2.5mg Take 1 [facility] 2.5 mg 2-17 tablet by ity of tablet 00:00: mouth [place] 00 daily. Medical Branch metoprolol 2020-06 Yes [id number] 25mg Take 1 U nivers succinate 2-17 tablet by ity o f XL 25 mg 24 00:00: mouth 2 [facility] as hr tablet 00 (two) Medical times [place] daily. blood sugar 2020-06 Yes [id number] USE TO [facility] diagnostic 2-17 TEST TWICE ity of (ONETOUCH 00:00: DAILY [place] ULTRA BLUE 00 E11.9 Medical TEST STRIP) Branch strip rosuvastati 2020-06 Yes [id number] 40mg Take 1 [facility] n 40 mg 2-17 tablet by ity of tablet 00:00: mouth [place] 00 daily. Medical Branch terazosin 2 2020-06 Yes [id number] TAKE 1 [facility] mg capsule 2-17 CAPSULE BY ity of 00:00: MOUTH [place] 00 EVERY DAY Medical IN THE Branch EVENING Insulin 2020-06 Yes [id number] 15U inject 15 U nivers Glargine 2-17 Units ity of (LANTUS 00:00: under the [place] [address] skin Medical U-100 daily. Branch INSULIN) 100 unit/mL (3 mL) injection felodipine 2020-06 Yes [id number] TAKE 1 U nivers 10 mg 24 hr 2-17 TABLET BY ity of tablet 00:00: MOUTH [place] 00 DAILY. Medical Branch lisinopriL 2020-06 Yes [id number] 2.5mg Take 1 [facility] 2.5 mg 2-17 tablet by ity of tablet 00:00: mouth [place] 00 daily. Medical Branch metoprolol 2020-06 Yes [id number] 25mg Take 1 U nivers succinate 2-17 tablet by ity o f XL 25 mg 24 00:00: mouth 2 [facility] as hr tablet 00 (two) Medical times Branch daily. blood sugar 2020-06 Yes [id number] USE TO [facility] diagnostic 2-17 TEST TWICE ity of (ONETOUCH 00:00: DAILY [place] ULTRA BLUE 00 E11.9 Medical TEST STRIP) Branch strip rosuvastati 2020-06 Yes [id number] 40mg Take 1 [facility] n 40 mg 2-17 tablet by ity of tablet 00:00: mouth [place] 00 daily. Medical Branch terazosin 2 2020-06 Yes [id number] TAKE 1 [facility] mg capsule 2-17 CAPSULE BY ity of 00:00: MOUTH [place] 00 EVERY DAY Medical IN THE Branch EVENING Insulin 2020-06 Yes [id number] 15U inject 15 U nivers Glargine 2-17 Units ity of (LANTUS 00:00: under the [facility] 00 skin Medical U-100 daily. Branch INSULIN) 100 unit/mL (3 mL) injection felodipine 2020-06 Yes [id number] TAKE 1 U nivers 10 mg 24 hr 2-17 TABLET BY ity of tablet 00:00: MOUTH [place] 00 DAILY. Medical Branch lisinopriL 2020-06 Yes [id number] 2.5mg Take 1 [facility] 2.5 mg 2-17 tablet by ity of tablet 00:00: mouth [place] 00 daily. Medical Branch metoprolol 2020-06 Yes [id number] 25mg Take 1 U nivers succinate 2-17 tablet by ity o f XL 25 mg 24 00:00: mouth 2 [facility] as hr tablet 00 (two) Medical times [place] daily. blood sugar 2020-06 Yes [id number] USE TO [facility] diagnostic 2-17 TEST TWICE ity of (ONETOUCH 00:00: DAILY [place] ULTRA BLUE 00 E11.9 Medical TEST STRIP) Branch strip rosuvastati 2020-06 Yes [id number] 40mg Take 1 [facility] n 40 mg 2-17 tablet by ity of tablet 00:00: mouth [place] 00 daily. Medical Branch terazosin 2 2020-06 Yes [id number] TAKE 1 [facility] mg capsule 2-17 CAPSULE BY ity of 00:00: MOUTH [place] 00 EVERY DAY Medical IN THE Branch EVENING Insulin 2020-06 Yes [id number] 15U inject 15 U nivers Glargine 2-17 Units ity of (LANTUS 00:00: under the [place] 00 skin Medical U-100 daily. Branch INSULIN) 100 unit/mL (3 mL) injection felodipine 2020-06 Yes [id number] TAKE 1 U nivers 10 mg 24 hr 2-17 TABLET BY ity of tablet 00:00: MOUTH [place] 00 DAILY. Medical Branch lisinopriL 2020-06 Yes [id number] 2.5mg Take 1 [facility] 2.5 mg 2-17 tablet by ity of tablet 00:00: mouth [place] 00 daily. Medical Branch metoprolol 2020-06 Yes [id number] 25mg Take 1 U nivers succinate 2-17 tablet by ity o f XL 25 mg 24 00:00: mouth 2 [facility] as hr tablet 00 (two) Medical times [place] daily. blood sugar 2020-06 Yes [id number] USE TO [facility] diagnostic 2-17 TEST TWICE ity of (ONETOUCH 00:00: DAILY [place] ULTRA BLUE 00 E11.9 Medical TEST STRIP) Branch strip rosuvastati 2020-06 Yes [id number] 40mg Take 1 [facility] n 40 mg 2-17 tablet by ity of tablet 00:00: mouth [place] 00 daily. Medical Branch terazosin 2 2020-06 Yes [id number] TAKE 1 [facility] mg capsule 2-17 CAPSULE BY ity of 00:00: MOUTH [place] 00 EVERY DAY Medical IN THE Branch EVENING Insulin 2020-06 Yes [id number] 15U inject 15 U nivers Glargine 2-17 Units ity of (LANTUS 00:00: under the [facility] 00 skin Medical U-100 daily. Branch INSULIN) 100 unit/mL (3 mL) injection felodipine 2020-06 Yes [id number] TAKE 1 U nivers 10 mg 24 hr 2-17 TABLET BY ity of tablet 00:00: MOUTH [place] 00 DAILY. Medical Branch lisinopriL 2020-06 Yes [id number] 2.5mg Take 1 [facility] 2.5 mg 2-17 tablet by ity of tablet 00:00: mouth [place] 00 daily. Medical Branch metoprolol 2020-06 Yes [id number] 25mg Take 1 U nivers succinate 2-17 tablet by ity o f XL 25 mg 24 00:00: mouth 2 [facility] as hr tablet 00 (two) Medical times Branch daily. blood sugar 2020-06 Yes [id number] USE TO [facility] diagnostic 2-17 TEST TWICE ity of (ONETOUCH 00:00: DAILY [place] ULTRA BLUE 00 E11.9 Medical TEST STRIP) Branch strip rosuvastati 2020-06 Yes [id number] 40mg Take 1 [facility] n 40 mg 2-17 tablet by ity of tablet 00:00: mouth [place] 00 daily. Medical Branch terazosin 2 2020-06 Yes [id number] TAKE 1 [facility] mg capsule 2-17 CAPSULE BY ity of 00:00: MOUTH [place] 00 EVERY DAY Medical IN THE Branch EVENING Insulin 2020-06 Yes [id number] 15U inject 15 U nivers Glargine 2-17 Units ity of (LANTUS 00:00: under the [facility] 00 skin Medical U-100 daily. Branch INSULIN) 100 unit/mL (3 mL) injection felodipine 2020-06 Yes [id number] TAKE 1 U nivers 10 mg 24 hr 2-17 TABLET BY ity of tablet 00:00: MOUTH [place] 00 DAILY. Medical Branch lisinopriL 2020-06 Yes [id number] 2.5mg Take 1 [facility] 2.5 mg 2-17 tablet by ity of tablet 00:00: mouth [place] 00 daily. Medical Branch metoprolol 2020-06 Yes [id number] 25mg Take 1 U nivers succinate 2-17 tablet by ity o f XL 25 mg 24 00:00: mouth 2 [facility] [place] as hr tablet 00 (two) Medical [facility] daily. blood sugar 2020-06 Yes [id number] USE TO [facility] diagnostic 2-17 TEST TWICE ity of (ONETOUCH 00:00: DAILY [place] ULTRA BLUE 00 E11.9 Medical TEST STRIP) Branch strip rosuvastati 2020-06 Yes [id number] 40mg Take 1 [facility] n 40 mg 2-17 tablet by ity of tablet 00:00: mouth [place] 00 daily. Medical Branch terazosin 2 2020-06 Yes [id number] TAKE 1 [facility] mg capsule 2-17 CAPSULE BY ity of 00:00: MOUTH [place] 00 EVERY DAY Medical IN THE Branch EVENING Insulin 2020-06 Yes [id number] 15U inject 15 U nivers Glargine 2-17 Units ity of (LANTUS 00:00: under the [place] 00 skin Medical U-100 daily. Branch INSULIN) 100 unit/mL (3 mL) injection felodipine 2020-06 Yes [id number] TAKE 1 U nivers 10 mg 24 hr 2-17 TABLET BY ity of tablet 00:00: MOUTH [place] 00 DAILY. Medical Branch lisinopriL 2020-06 Yes [id number] 2.5mg Take 1 [facility] 2.5 mg 2-17 tablet by ity of tablet 00:00: mouth [place] 00 daily. Medical Branch metoprolol 2020-06 Yes [id number] 25mg Take 1 U nivers succinate 2-17 tablet by ity o f XL 25 mg 24 00:00: mouth 2 [facility] [place] as hr tablet 00 (two) Medical [facility] daily. blood sugar 2020-06 Yes [id number] USE TO [facility] diagnostic 2-17 TEST TWICE ity of (ONETOUCH 00:00: DAILY [place] ULTRA BLUE 00 E11.9 Medical TEST STRIP) Branch strip rosuvastati 2020-06 Yes [id number] 40mg Take 1 [facility] n 40 mg 2-17 tablet by ity of tablet 00:00: mouth [place] 00 daily. Medical Branch terazosin 2 2020-06 Yes [id number] TAKE 1 [facility] mg capsule 2-17 CAPSULE BY ity of 00:00: MOUTH [place] 00 EVERY DAY Medical IN THE Branch EVENING Insulin 2020-06 Yes [id number] 15U inject 15 U nivers Glargine 2-17 Units ity of (LANTUS 00:00: under the [facility] 00 skin Medical U-100 daily. Branch INSULIN) 100 unit/mL (3 mL) injection felodipine 2020-06 Yes [id number] TAKE 1 U nivers 10 mg 24 hr 2-17 TABLET BY ity of tablet 00:00: MOUTH [place] 00 DAILY. Medical Branch lisinopriL 2020-06 Yes [id number] 2.5mg Take 1 [facility] 2.5 mg 2-17 tablet by ity of tablet 00:00: mouth [place] 00 daily. Medical Branch metoprolol 2020-06 Yes [id number] 25mg Take 1 U nivers succinate 2-17 tablet by ity o f XL 25 mg 24 00:00: mouth 2 [facility] as hr tablet 00 (two) Medical [facility] daily. blood sugar 2020-06 Yes [id number] USE TO [facility] diagnostic 2-17 TEST TWICE ity of (ONETOUCH 00:00: DAILY [place] ULTRA BLUE 00 E11.9 Medical TEST STRIP) Branch strip rosuvastati 2020-06 Yes [id number] 40mg Take 1 [facility] n 40 mg 2-17 tablet by ity of tablet 00:00: mouth [place] 00 daily. Medical Branch terazosin 2 2020-06 Yes [id number] TAKE 1 [facility] mg capsule 2-17 CAPSULE BY ity of 00:00: MOUTH [place] 00 EVERY DAY Medical IN THE Branch EVENING Insulin 2020-06 Yes [id number] 15U inject 15 U nivers Glargine 2-17 Units ity of (LANTUS 00:00: under the [facility] 00 skin Medical U-100 daily. Branch INSULIN) 100 unit/mL (3 mL) injection felodipine 2020-06 Yes [id number] TAKE 1 U nivers 10 mg 24 hr 2-17 TABLET BY ity of tablet 00:00: MOUTH [place] 00 DAILY. Medical Branch lisinopriL 2020-06 Yes [id number] 2.5mg Take 1 [facility] 2.5 mg 2-17 tablet by ity of tablet 00:00: mouth [place] 00 daily. Medical Branch metoprolol 2020-06 Yes [id number] 25mg Take 1 U nivers succinate 2-17 tablet by ity o f XL 25 mg 24 00:00: mouth 2 [facility] as hr tablet 00 (two) Medical times [place] daily. blood sugar 2020-06 Yes [id number] USE TO [facility] diagnostic 2-17 TEST TWICE ity of (ONETOUCH 00:00: DAILY [place] ULTRA BLUE 00 E11.9 Medical TEST STRIP) Branch strip rosuvastati 2020-06 Yes [id number] 40mg Take 1 [facility] n 40 mg 2-17 tablet by ity of tablet 00:00: mouth [place] 00 daily. Medical Branch terazosin 2 2020-06 Yes [id number] TAKE 1 [facility] mg capsule 2-17 CAPSULE BY ity of 00:00: MOUTH [place] 00 EVERY DAY Medical IN THE Branch EVENING Insulin 2020-06 Yes [id number] 15U inject 15 U nivers Glargine 2-17 Units ity of (LANTUS 00:00: under the [place] 00 skin Medical U-100 daily. Branch INSULIN) 100 unit/mL (3 mL) injection felodipine 2020-06 Yes [id number] TAKE 1 U nivers 10 mg 24 hr 2-17 TABLET BY ity of tablet 00:00: MOUTH [place] 00 DAILY. Medical Branch lisinopriL 2020-06 Yes [id number] 2.5mg Take 1 [facility] 2.5 mg 2-17 tablet by ity of tablet 00:00: mouth [place] 00 daily. Medical Branch metoprolol 2020-06 Yes [id number] 25mg Take 1 U nivers succinate 2-17 tablet by ity o f XL 25 mg 24 00:00: mouth 2 [facility]to as hr tablet 00 (two) Medical [facility] daily. blood sugar 2020-06 Yes [id number] USE TO [facility] diagnostic 2-17 TEST TWICE ity of (ONETOUCH 00:00: DAILY [place] ULTRA BLUE 00 E11.9 Medical TEST STRIP) Branch strip rosuvastati 2020-06 Yes [id number] 40mg Take 1 [facility] n 40 mg 2-17 tablet by ity of tablet 00:00: mouth [place] 00 daily. Medical Branch terazosin 2 2020-06 Yes [id number] TAKE 1 [facility] mg capsule 2-17 CAPSULE BY ity of 00:00: MOUTH [place] 00 EVERY DAY Medical IN THE Branch EVENING Insulin 2020-06 Yes [id number] 15U inject 15 U nivers Glargine 2-17 Units ity of (LANTUS 00:00: under the [place] 00 skin Medical U-100 daily. Branch INSULIN) 100 unit/mL (3 mL) injection felodipine 2020-06 Yes [id number] TAKE 1 U nivers 10 mg 24 hr 2-17 TABLET BY ity of tablet 00:00: MOUTH [place] 00 DAILY. Medical Branch lisinopriL 2020-06 Yes [id number] 2.5mg Take 1 [facility] 2.5 mg 2-17 tablet by ity of tablet 00:00: mouth [place] 00 daily. Medical Branch metoprolol 2020-06 Yes [id number] 25mg Take 1 U nivers succinate 2-17 tablet by ity o f XL 25 mg 24 00:00: mouth 2 [facility]to as hr tablet 00 (two) Medical times [place] daily. blood sugar 2020-06 Yes [id number] USE TO [facility] diagnostic 2-17 TEST TWICE ity of (ONETOUCH 00:00: DAILY [place] ULTRA BLUE 00 E11.9 Medical TEST STRIP) Branch strip rosuvastati 2020-06 Yes [id number] 40mg Take 1 [facility] n 40 mg 2-17 tablet by ity of tablet 00:00: mouth [place] 00 daily. Medical Branch terazosin 2 2020-06 Yes [id number] TAKE 1 [facility] mg capsule 2-17 CAPSULE BY ity of 00:00: MOUTH [place] 00 EVERY DAY Medical IN THE Branch EVENING Insulin 2020-06 Yes [id number] 15U inject 15 U nivers Glargine 2-17 Units ity of (LANTUS 00:00: under the [place] 00 skin Medical U-100 daily. Branch INSULIN) 100 unit/mL (3 mL) injection felodipine 2020-06 Yes [id number] TAKE 1 U nivers 10 mg 24 hr 2-17 TABLET BY ity of tablet 00:00: MOUTH [place] 00 DAILY. Medical Branch lisinopriL 2020-06 Yes [id number] 2.5mg Take 1 [facility] 2.5 mg 2-17 tablet by ity of tablet 00:00: mouth [place] 00 daily. Medical Branch metoprolol 2020-06 Yes [id number] 25mg Take 1 U nivers succinate 2-17 tablet by ity o f XL 25 mg 24 00:00: mouth 2 [facility]to as hr tablet 00 (two) Medical times [place] daily. blood sugar 2020-06 Yes [id number] USE TO [facility] diagnostic 2-17 TEST TWICE ity of (ONETOUCH 00:00: DAILY [place] ULTRA BLUE 00 E11.9 Medical TEST STRIP) Branch strip rosuvastati 2020-06 Yes [id number] 40mg Take 1 [facility] n 40 mg 2-17 tablet by ity of tablet 00:00: mouth [place] 00 daily. Medical Branch terazosin 2 2020-06 Yes [id number] TAKE 1 [facility] mg capsule 2-17 CAPSULE BY ity of 00:00: MOUTH [place] 00 EVERY DAY Medical IN THE Branch EVENING Insulin 2020-06 Yes [id number] 15U inject 15 U nivers Glargine 2-17 Units ity of (LANTUS 00:00: under the [facility] 00 skin Medical U-100 daily. [place] INSULIN) 100 unit/mL (3 mL) injection felodipine 2020-06 Yes [id number] TAKE 1 U nivers 10 mg 24 hr 2-17 TABLET BY ity of tablet 00:00: MOUTH [place] 00 DAILY. Medical Branch lisinopriL 2020-06 Yes [id number] 2.5mg Take 1 [facility] 2.5 mg 2-17 tablet by ity of tablet 00:00: mouth [place] 00 daily. Medical Branch metoprolol 2020-06 Yes [id number] 25mg Take 1 U nivers succinate 2-17 tablet by ity o f XL 25 mg 24 00:00: mouth 2 [facility] as hr tablet 00 (two) Medical times [place] daily. blood sugar 2020-06 Yes [id number] USE TO [facility] diagnostic 2-17 TEST TWICE ity of (ONETOUCH 00:00: DAILY [place] ULTRA BLUE 00 E11.9 Medical TEST STRIP) Branch strip rosuvastati 2020-06 Yes [id number] 40mg Take 1 [facility] n 40 mg 2-17 tablet by ity of tablet 00:00: mouth [place] 00 daily. Medical Branch terazosin 2 2020-06 Yes [id number] TAKE 1 [facility] mg capsule 2-17 CAPSULE BY ity of 00:00: MOUTH [place] 00 EVERY DAY Medical IN THE Branch EVENING Insulin 2020-06 Yes [id number] 15U inject 15 U nivers Glargine 2-17 Units ity of (LANTUS 00:00: under the [facility] 00 skin Medical U-100 daily. [place] INSULIN) 100 unit/mL (3 mL) injection felodipine 2020-06 Yes [id number] TAKE 1 U nivers 10 mg 24 hr 2-17 TABLET BY ity of tablet 00:00: MOUTH [place] 00 DAILY. Medical Branch lisinopriL 2020-06 Yes [id number] 2.5mg Take 1 [facility] 2.5 mg 2-17 tablet by ity of tablet 00:00: mouth [place] 00 daily. Medical Branch metoprolol 2020-06 Yes [id number] 25mg Take 1 U nivers succinate 2-17 tablet by ity o f XL 25 mg 24 00:00: mouth 2 [facility] as hr tablet 00 (two) Medical times [place] daily. blood sugar 2020-06 Yes [id number] USE TO [facility] diagnostic 2-17 TEST TWICE ity of (ONETOUCH 00:00: DAILY [place] ULTRA BLUE 00 E11.9 Medical TEST STRIP) Branch strip rosuvastati 2020-06 Yes [id number] 40mg Take 1 [facility] n 40 mg 2-17 tablet by ity of tablet 00:00: mouth [place] 00 daily. Medical Branch terazosin 2 2020-06 Yes [id number] TAKE 1 [facility] mg capsule 2-17 CAPSULE BY ity of 00:00: MOUTH [place] 00 EVERY DAY Medical IN THE Branch EVENING Insulin 2020-06 Yes [id number] 15U inject 15 U nivers Glargine 2-17 Units ity of (LANTUS 00:00: under the [place] [facility] 00 skin Medical U-100 daily. Branch INSULIN) 100 unit/mL (3 mL) injection felodipine 2020-06 Yes [id number] TAKE 1 U nivers 10 mg 24 hr 2-17 TABLET BY ity of tablet 00:00: MOUTH [place] 00 DAILY. Medical Branch lisinopriL 2020-06 Yes [id number] 2.5mg Take 1 [facility] 2.5 mg 2-17 tablet by ity of tablet 00:00: mouth [place] 00 daily. Medical Branch metoprolol 2020-06 Yes [id number] 25mg Take 1 U nivers succinate 2-17 tablet by ity o f XL 25 mg 24 00:00: mouth 2 [facility] as hr tablet 00 (two) Medical times [place] daily. blood sugar 2020-06 Yes [id number] USE TO [facility] diagnostic 2-17 TEST TWICE ity of (ONETOUCH 00:00: DAILY [place] ULTRA BLUE 00 E11.9 Medical TEST STRIP) Branch strip rosuvastati 2020-06 Yes [id number] 40mg Take 1 [facility] n 40 mg 2-17 tablet by ity of tablet 00:00: mouth [place] 00 daily. Medical Branch terazosin 2 2020-06 Yes [id number] TAKE 1 [facility] mg capsule 2-17 CAPSULE BY ity of 00:00: MOUTH [place] 00 EVERY DAY Medical IN THE Branch EVENING glipiZIDE 5 2020-062- No [id number] TAKE 1/2 Univers mg tablet 2-17 -16 TABLET BY ity of 00:00: 00:00 MOUTH [place] 00 :00 EVERY DAY Medical WITH Branch BREAKFAST nitroglycer 2020-[id number] 1 Univers in 0.4 mg 9-21 tablet ity of sublingual 00:00: under the [place] tablet 00 tongue Medical every 5 Branch (five) minutes as needed for Chest pain. nitroglycer 2020-[id number] 1 Univers in 0.4 mg 9-21 tablet ity of sublingual 00:00: under the [place] tablet 00 tongue Medical every 5 Branch (five) minutes as needed for Chest pain. nitroglycer 2020-[id number] 1 Univers in 0.4 mg 9-21 tablet ity of sublingual 00:00: under the [place] tablet 00 tongue Medical every 5 Branch (five) minutes as needed for Chest pain. nitroglycer 2020-[id number] 1 Univers in 0.4 mg 9-21 tablet ity of sublingual 00:00: under the [place] tablet 00 tongue Medical every 5 Branch (five) minutes as needed for Chest pain. nitroglycer 2020-[id number] 1 Univers in 0.4 mg 9-21 tablet ity of sublingual 00:00: under the [place] tablet 00 tongue Medical every 5 Branch (five) minutes as needed for Chest pain. nitroglycer 2020-[id number] 1 Univers in 0.4 mg 9-21 tablet ity of sublingual 00:00: under the [place] tablet 00 tongue Medical every 5 Branch (five) minutes as needed for Chest pain. nitroglycer 2020-[id number] 1 Univers in 0.4 mg 9-21 tablet ity of sublingual 00:00: under the [place] tablet 00 tongue Medical every 5 Branch (five) minutes as needed for Chest pain. nitroglycer 2020-[id number] 1 Univers in 0.4 mg 9-21 tablet ity of sublingual 00:00: under the [place] tablet 00 tongue Medical every 5 Branch (five) minutes as needed for Chest pain. nitroglycer 2021-[id number] 1 Univers in 0.4 mg 9-21 tablet ity of sublingual 00:00: under the [place] tablet 00 tongue Medical every 5 Branch (five) minutes as needed for Chest pain. nitroglycer 2021-[id number] 1 Univers in 0.4 mg 9-21 tablet ity of sublingual 00:00: under the [place] tablet 00 tongue Medical every 5 Branch (five) minutes as needed for Chest pain. nitroglycer 2021-[id number] 1 Univers in 0.4 mg 9-21 tablet ity of sublingual 00:00: under the [place] tablet 00 tongue Medical every 5 Branch (five) minutes as needed for Chest pain. nitroglycer 2021-[id number] 1 Univers in 0.4 mg 9-21 tablet ity of sublingual 00:00: under the [place] tablet 00 tongue Medical every 5 Branch (five) minutes as needed for Chest pain. nitroglycer 2021-[id number] 1 Univers in 0.4 mg 9-21 tablet ity of sublingual 00:00: under the [place] tablet 00 tongue Medical every 5 Branch (five) minutes as needed for Chest pain. nitroglycer 2021-[id number] 1 [facility] in 0.4 mg 9-21 tablet ity of sublingual 00:00: under the [place] tablet 00 tongue Medical every 5 Branch (five) minutes as needed for Chest pain. nitroglycer 2021-[id number] 1 Univers in 0.4 mg 9-21 tablet ity of sublingual 00:00: under the [place] tablet 00 tongue Medical every 5 Branch (five) minutes as needed for Chest pain. nitroglycer 2021-[id number] 1 [facility] in 0.4 mg 9-21 tablet ity of sublingual 00:00: under the [place] tablet 00 tongue Medical every 5 Branch (five) minutes as needed for Chest pain. nitroglycer 2021-[id number] 1 [facility] in 0.4 mg 9-21 tablet ity of sublingual 00:00: under the [place] tablet 00 tongue Medical every 5 Branch (five) minutes as needed for Chest pain. nitroglycer 2021-[id number] [facility] in 0.4 mg 9-21 tablet ity of sublingual 00:00: under the [place] tablet 00 tongue Medical every 5 Branch (five) minutes as needed for Chest pain. nitroglycer 2021-[id number] [facility] in 0.4 mg 9-21 tablet ity of sublingual 00:00: under the [place] tablet 00 tongue Medical every 5 Branch (five) minutes as needed for Chest pain. nitroglycer 2021-[id number] [facility] in 0.4 mg 9-21 tablet ity of sublingual 00:00: under the [place] tablet 00 tongue Medical every 5 Branch (five) minutes as needed for Chest pain. nitroglycer 2021-[id number] [facility] in 0.4 mg 9-21 tablet ity of sublingual 00:00: under the [place] tablet 00 tongue Medical every 5 Branch (five) minutes as needed for Chest pain. nitroglycer 2021-[id number] 1 [facility] in 0.4 mg 9-21 tablet ity of sublingual 00:00: under the [place] tablet 00 tongue Medical every 5 Branch (five) minutes as needed for Chest pain. nitroglycer 2021-[id number] 1 [facility] in 0.4 mg 9-21 tablet ity of sublingual 00:00: under the [place] tablet 00 tongue Medical every 5 Branch (five) minutes as needed for Chest pain. nitroglycer 2021-[id number] [facility] in 0.4 mg 9-21 tablet ity of sublingual 00:00: under the [place] tablet 00 tongue Medical every 5 Branch (five) minutes as needed for Chest pain. nitroglycer 2021-[id number] 1 [facility] in 0.4 mg 9-21 tablet ity of sublingual 00:00: under the [place] tablet 00 tongue Medical every 5 Branch (five) minutes as needed for Chest pain. nitroglycer 2021-[id number] 1 [facility] in 0.4 mg 9-21 tablet ity of sublingual 00:00: under the [place] tablet 00 tongue Medical every 5 Branch (five) minutes as needed for Chest pain. nitroglycer 2021-[id number] 1 [facility] in 0.4 mg 9-21 tablet ity of sublingual 00:00: under the [place] tablet 00 tongue Medical every 5 Branch (five) minutes as needed for Chest pain. nitroglycer 2021-[id number] 1 [facility] in 0.4 mg 9-21 tablet ity of sublingual 00:00: under the [place] tablet 00 tongue Medical every 5 Branch (five) minutes as needed for Chest pain. nitroglycer 2021-[id number] 1 [facility] in 0.4 mg 9-21 tablet ity of sublingual 00:00: under the [place] tablet 00 tongue Medical every 5 Branch (five) minutes as needed for Chest pain. nitroglycer 2021-[id number] 1 [facility] in 0.4 mg 9-21 tablet ity of sublingual 00:00: under the [place] tablet 00 tongue Medical every 5 Branch (five) minutes as needed for Chest pain. nitroglycer 2021-[id number] 1 [facility] in 0.4 mg 9-21 tablet ity of sublingual 00:00: under the [place] tablet 00 tongue Medical every 5 Branch (five) minutes as needed for Chest pain. nitroglycer 2021-[id number] 1 [facility] in 0.4 mg 9-21 tablet ity of sublingual 00:00: under the [place] tablet 00 tongue Medical every 5 Branch (five) minutes as needed for Chest pain. nitroglycer 2021-[id number] 1 [facility] in 0.4 mg 9-21 tablet ity of sublingual 00:00: under the [place] tablet 00 tongue Medical every 5 Branch (five) minutes as needed for Chest pain. nitroglycer 2021-[id number] 1 [facility] in 0.4 mg 9-21 tablet ity of sublingual 00:00: under the [place] tablet 00 tongue Medical every 5 Branch (five) minutes as needed for Chest pain. nitroglycer 2021-[id number] 1 [facility] in 0.4 mg 9-21 tablet ity of sublingual 00:00: under the [place] tablet 00 tongue Medical every 5 Branch (five) minutes as needed for Chest pain. nitroglycer 2021-[id number] 1 [facility] in 0.4 mg 9-21 tablet ity of sublingual 00:00: under the [place] tablet 00 tongue Medical every 5 Branch (five) minutes as needed for Chest pain. nitroglycer 2021-[id number] 1 [facility] in 0.4 mg 9-21 tablet ity of sublingual 00:00: under the [place] tablet 00 tongue Medical every 5 Branch (five) minutes as needed for Chest pain. nitroglycer 2021-[id number] 1 [facility] in 0.4 mg 9-21 tablet ity of sublingual 00:00: under the [place] tablet 00 tongue Medical every 5 Branch (five) minutes as needed for Chest pain. nitroglycer 1-[id number] 1 [facility] in 0.4 mg 9-21 tablet ity of sublingual 00:00: under the [place] tablet 00 tongue Medical every 5 Branch (five) minutes as needed for Chest pain. nitroglycer 2021-[id number] 1 [facility] in 0.4 mg 9-21 tablet ity of sublingual 00:00: under the [place] tablet 00 tongue Medical every 5 Branch (five) minutes as needed for Chest pain. nitroglycer 2021-[id number] 1 [facility] in 0.4 mg 9-21 tablet ity of sublingual 00:00: under the [place] tablet 00 tongue Medical every 5 Branch (five) minutes as needed for Chest pain. nitroglycer 2021-[id number] 1 [facility] in 0.4 mg 9-21 tablet ity of sublingual 00:00: under the [place] tablet 00 tongue Medical every 5 Branch (five) minutes as needed for Chest pain. nitroglycer 2021-[id number] 1 [facility] in 0.4 mg 9-21 tablet ity of sublingual 00:00: under the [place] tablet 00 tongue Medical every 5 Branch (five) minutes as needed for Chest pain. nitroglycer 2021-[id number] 1 [facility] in 0.4 mg 9-21 tablet ity of sublingual 00:00: under the [place] tablet 00 tongue Medical every 5 Branch (five) minutes as needed for Chest pain. calcium 2020-0 Yes [id number] 667mg Take 1 [facility] vers acetate,kana 6-25 capsule by it y of sphat bind, 00:00: mouth 3 [facility] as 667 mg 00 (three) Medical capsule times Branch daily with meals. calcium 2020-0 Yes [id number] 667mg Take 1 [facility] vers acetate,kana 6-25 capsule by it y of sphat bind, 00:00: mouth 3 [facility] as 667 mg 00 (three) Medical capsule times Branch daily with meals. calcium 2020-0 Yes [id number] 667mg Take 1 [facility] vers acetate,kana 6-25 capsule by it y of sphat bind, 00:00: mouth 3 [facility] as 667 mg 00 (three) Medical capsule times Branch daily with meals. calcium 2020-0 Yes [id number] 667mg Take 1 [facility] vers acetate,kana 6-25 capsule by it y of sphat bind, 00:00: mouth 3 [facility] as 667 mg 00 (three) Medical capsule times Branch daily with meals. calcium 2020-0 Yes [id number] 667mg Take 1 [facility] vers acetate,kana 6-25 capsule by it y of sphat bind, 00:00: mouth 3 [facility] as 667 mg 00 (three) Medical capsule times Branch daily with meals. calcium 2020-0 Yes [id number] 667mg Take 1 [facility] vers acetate,kana 6-25 capsule by it y of sphat bind, 00:00: mouth 3 [facility] as 667 mg 00 (three) Medical capsule times Branch daily with meals. calcium 2020-0 Yes [id number] 667mg Take 1 [facility] vers acetate,kana 6-25 capsule by it y of sphat bind, 00:00: mouth 3 [facility] as 667 mg 00 (three) Medical capsule times Branch daily with meals. calcium 2020-0 Yes [id number] 667mg Take 1 [facility] vers acetate,kana 6-25 capsule by it y of sphat bind, 00:00: mouth 3 [facility] as 667 mg 00 (three) Medical capsule times Branch daily with meals. calcium 2020-0 Yes [id number] 667mg Take 1 [facility] vers acetate,kana 6-25 capsule by it y of sphat bind, 00:00: mouth 3 [facility] as 667 mg 00 (three) Medical capsule times Branch daily with meals. calcium 2020-0 Yes [id number] 667mg Take 1 [facility] vers acetate,kana 6-25 capsule by it y of sphat bind, 00:00: mouth 3 [facility] as 667 mg 00 (three) Medical capsule times Branch daily with meals. calcium 2020-0 Yes [id number] 667mg Take 1 [facility] vers acetate,kana 6-25 capsule by it y of sphat bind, 00:00: mouth 3 [facility] as 667 mg 00 (three) Medical capsule times Branch daily with meals. calcium 2020-0 Yes [id number] 667mg Take 1 [facility] vers acetate,kana 6-25 capsule by it y of sphat bind, 00:00: mouth 3 [facility] as 667 mg 00 (three) Medical capsule times Branch daily with meals. calcium 2020-0 Yes [id number] 667mg Take 1 [facility] vers acetate,kana 6-25 capsule by it y of sphat bind, 00:00: mouth 3 [facility] as 667 mg 00 (three) Medical capsule times Branch daily with meals. calcium 2020-0 Yes [id number] 667mg Take 1 [facility] vers acetate,kana 6-25 capsule by it y of sphat bind, 00:00: mouth 3 [facility] as 667 mg 00 (three) Medical capsule times Branch daily with meals. calcium 2020-0 Yes [id number] 667mg Take 1 [facility] vers acetate,kana 6-25 capsule by it y of sphat bind, 00:00: mouth 3 [facility] as 667 mg 00 (three) Medical capsule times Branch daily with meals. calcium 2020-0 Yes [id number] 667mg Take 1 [facility] vers acetate,kana 6-25 capsule by it y of sphat bind, 00:00: mouth 3 [facility] as 667 mg 00 (three) Medical capsule times Branch daily with meals. calcium 2021-0 Yes [id number] 667mg Take 1 [facility] vers acetate,kana 6-25 capsule by it y of sphat bind, 00:00: mouth 3 [facility] as 667 mg 00 (three) Medical capsule times Branch daily with meals. calcium 2021-0 Yes [id number] 667mg Take 1 [facility] vers acetate,kana 6-25 capsule by it y of sphat bind, 00:00: mouth 3 [facility] as 667 mg 00 (three) Medical capsule times Branch daily with meals. calcium 2020-0 Yes [id number] 667mg Take 1 [facility] vers acetate,kana 6-25 capsule by it y of sphat bind, 00:00: mouth 3 [facility] as 667 mg 00 (three) Medical capsule times Branch daily with meals. calcium 2020-0 Yes [id number] 667mg Take 1 [facility] vers acetate,kana 6-25 capsule by it y of sphat bind, 00:00: mouth 3 [facility] as 667 mg 00 (three) Medical capsule times Branch daily with meals. calcium 2020-0 Yes [id number] 667mg Take 1 [facility] vers acetate,kana 6-25 capsule by it y of sphat bind, 00:00: mouth 3 [facility] as 667 mg 00 (three) Medical capsule times Branch daily with meals. calcium 2020-0 Yes [id number] 667mg Take 1 [facility] vers acetate,kana 6-25 capsule by it y of sphat bind, 00:00: mouth 3 [facility] as 667 mg 00 (three) Medical capsule times Branch daily with meals. calcium 2020-0 Yes [id number] 667mg Take 1 [facility] vers acetate,kana 6-25 capsule by it y of sphat bind, 00:00: mouth 3 [facility] as 667 mg 00 (three) Medical capsule times Branch daily with meals. calcium 2020-0 Yes [id number] 667mg Take 1 [facility] vers acetate,kana 6-25 capsule by it y of sphat bind, 00:00: mouth 3 [facility] as 667 mg 00 (three) Medical capsule times Branch daily with meals. calcium 2020-0 Yes [id number] 667mg Take 1 [facility] vers acetate,kana 6-25 capsule by it y of sphat bind, 00:00: mouth 3 [facility] as 667 mg 00 (three) Medical capsule times Branch daily with meals. calcium 2020-0 Yes [id number] 667mg Take 1 [facility] vers acetate,kana 6-25 capsule by it y of sphat bind, 00:00: mouth 3 [facility] as 667 mg 00 (three) Medical capsule times Branch daily with meals. calcium 2020-0 Yes [id number] 667mg Take 1 [facility] vers acetate,kana 6-25 capsule by it y of sphat bind, 00:00: mouth 3 [facility] as 667 mg 00 (three) Medical capsule times Branch daily with meals. calcium 2020-0 Yes [id number] 667mg Take 1 [facility] vers acetate,kana 6-25 capsule by it y of sphat bind, 00:00: mouth 3 [facility] as 667 mg 00 (three) Medical capsule times Branch daily with meals. calcium 2020-0 Yes [id number] 667mg Take 1 [facility] vers acetate,kana 6-25 capsule by it y of sphat bind, 00:00: mouth 3 [facility] as 667 mg 00 (three) Medical capsule times Branch daily with meals. calcium 2020-0 Yes [id number] 667mg Take 1 [facility] vers acetate,kana 6-25 capsule by it y of sphat bind, 00:00: mouth 3 [facility] as 667 mg 00 (three) Medical capsule times Branch daily with meals. calcium 2020-0 Yes [id number] 667mg Take 1 [facility] vers acetate,akna 6-25 capsule by it y of sphat bind, 00:00: mouth 3 [facility] as 667 mg 00 (three) Medical capsule times Branch daily with meals. calcium 2020-0 Yes [id number] 667mg Take 1 [facility] vers acetate,kana 6-25 capsule by it y of sphat bind, 00:00: mouth 3 [facility] as 667 mg 00 (three) Medical capsule times Branch daily with meals. calcium 2020-0 Yes [id number] 667mg Take 1 [facility] vers acetate,kana 6-25 capsule by it y of sphat bind, 00:00: mouth 3 [facility] as 667 mg 00 (three) Medical capsule times Branch daily with meals. calcium 2020-0 Yes [id number] 667mg Take 1 [facility] vers acetate,kana 6-25 capsule by it y of sphat bind, 00:00: mouth 3 [facility] as 667 mg 00 (three) Medical capsule times Branch daily with meals. calcium 2020-0 Yes [id number] 667mg Take 1 [facility] vers acetate,kana 6-25 capsule by it y of sphat bind, 00:00: mouth 3 [facility] as 667 mg 00 (three) Medical capsule times Branch daily with meals. calcium 2020-0 Yes [id number] 667mg Take 1 [facility] vers acetate,kana 6-25 capsule by it y of sphat bind, 00:00: mouth 3 [facility] as 667 mg 00 (three) Medical capsule times Branch daily with meals. calcium 2020-0 Yes [id number] 667mg Take 1 [facility] vers acetate,kana 6-25 capsule by it y of sphat bind, 00:00: mouth 3 [facility] as 667 mg 00 (three) Medical capsule times Branch daily with meals. calcium 2020-0 Yes [id number] 667mg Take 1 [facility] vers acetate,kana 6-25 capsule by it y of sphat bind, 00:00: mouth 3 [facility] as 667 mg 00 (three) Medical capsule times Branch daily with meals. calcium 2020-0 Yes [id number] 667mg Take 1 [facility] vers acetate,kana 6-25 capsule by it y of sphat bind, 00:00: mouth 3 [facility] as 667 mg 00 (three) Medical capsule times Branch daily with meals. calcium 2020-0 Yes [id number] 667mg Take 1 [facility] vers acetate,kana 6-25 capsule by it y of sphat bind, 00:00: mouth 3 [facility] as 667 mg 00 (three) Medical capsule times Branch daily with meals. calcium 2020-0 Yes [id number] 667mg Take 1 [facility] vers acetate,kana 6-25 capsule by it y of sphat bind, 00:00: mouth 3 [facility] as 667 mg 00 (three) Medical capsule times Branch daily with meals. calcium 2020-0 Yes [id number] 667mg Take 1 [facility] vers acetate,kana 6-25 capsule by it y of sphat bind, 00:00: mouth 3 [facility] as 667 mg 00 (three) Medical capsule times Branch daily with meals. calcium 2020-0 Yes [id number] 667mg Take 1 [facility] vers acetate,kana 6-25 capsule by it y of sphat bind, 00:00: mouth 3 [facility] as 667 mg 00 (three) Medical capsule times Branch daily with meals. calcium 2020-0 Yes [id number] 667mg Take 1 [facility] vers acetate,kana 6-25 capsule by it y of sphat bind, 00:00: mouth 3 [facility] as 667 mg 00 (three) Medical capsule times Branch daily with meals. ciclopirox 2020-0 Yes [id number] Apply to [facility] ([facility]) 8 6-15 area(s) at ity of % solution 00:00: bedtime. [facility] as 00 Apply to Medical fungal Branch toenails once daily; Every 7 days file toenails with nail filer and apply rubbing alcohol. ciclopirox 2021-0 Yes [id number] Apply to [facility] ([facility]) 8 6-15 area(s) at ity of % solution 00:00: bedtime. [facility] as 00 Apply to Medical fungal Branch toenails once daily; Every 7 days file toenails with nail filer and apply rubbing alcohol. ciclopirox 2021-0 Yes [id number] Apply to [facility] ([facility]) 8 6-15 area(s) at ity of % solution 00:00: bedtime. [facility] as 00 Apply to Medical fungal Branch toenails once daily; Every 7 days file toenails with nail filer and apply rubbing alcohol. ciclopirox 2021-0 Yes [id number] Apply to [facility] ([facility]) 8 6-15 area(s) at ity of % solution 00:00: bedtime. [facility] as 00 Apply to Medical fungal Branch toenails once daily; Every 7 days file toenails with nail filer and apply rubbing alcohol. ciclopirox 1-0 Yes [id number] Apply to [facility] ([facility]) 8 6-15 area(s) at ity of % solution 00:00: bedtime. [facility] as 00 Apply to Medical fungal Branch toenails once daily; Every 7 days file toenails with nail filer and apply rubbing alcohol. ciclopirox 1-0 Yes [id number] Apply to [facility] ([facility]) 8 6-15 area(s) at ity of % solution 00:00: bedtime. [facility] as 00 Apply to Medical fungal Branch toenails once daily; Every 7 days file toenails with nail filer and apply rubbing alcohol. ciclopirox 2021-0 Yes [id number] Apply to [facility] ([facility]) 8 6-15 area(s) at ity of % solution 00:00: bedtime. [facility] as 00 Apply to Medical fungal Branch toenails once daily; Every 7 days file toenails with nail filer and apply rubbing alcohol. ciclopirox 2021-0 Yes [id number] Apply to [facility] ([facility]) 8 6-15 area(s) at ity of % solution 00:00: bedtime. [facility] as 00 Apply to Medical fungal Branch toenails once daily; Every 7 days file toenails with nail filer and apply rubbing alcohol. ciclopirox 2021-0 Yes [id number] Apply to [facility] ([facility]) 8 6-15 area(s) at ity of % solution 00:00: bedtime. [facility] as 00 Apply to Medical fungal Branch toenails once daily; Every 7 days file toenails with nail filer and apply rubbing alcohol. ciclopirox 2021-0 Yes [id number] Apply to [facility] ([facility]) 8 6-15 area(s) at ity of % solution 00:00: bedtime. [facility] as 00 Apply to Medical fungal Branch toenails once daily; Every 7 days file toenails with nail filer and apply rubbing alcohol. ciclopirox 2021-0 Yes [id number] Apply to [facility] ([facility]) 8 6-15 area(s) at ity of % solution 00:00: bedtime. [facility] as 00 Apply to Medical fungal Branch toenails once daily; Every 7 days file toenails with nail filer and apply rubbing alcohol. ciclopirox 2021-0 Yes [id number] Apply to [facility] ([facility]) 8 6-15 area(s) at ity of % solution 00:00: bedtime. [facility] as 00 Apply to Medical fungal Branch toenails once daily; Every 7 days file toenails with nail filer and apply rubbing alcohol. ciclopirox 2021-0 Yes [id number] Apply to [facility] ([facility]) 8 6-15 area(s) at ity of % solution 00:00: bedtime. [facility] as 00 Apply to Medical fungal Branch toenails once daily; Every 7 days file toenails with nail filer and apply rubbing alcohol. ciclopirox 2021-0 Yes [id number] Apply to [facility] ([facility]) 8 6-15 area(s) at ity of % solution 00:00: bedtime. [facility] as 00 Apply to Medical fungal Branch toenails once daily; Every 7 days file toenails with nail filer and apply rubbing alcohol. ciclopirox 2021-0 Yes [id number] Apply to [facility] ([facility]) 8 6-15 area(s) at ity of % solution 00:00: bedtime. [facility] as 00 Apply to Medical fungal Branch toenails once daily; Every 7 days file toenails with nail filer and apply rubbing alcohol. ciclopirox 2021-0 Yes [id number] Apply to [facility] ([facility]) 8 6-15 area(s) at ity of % solution 00:00: bedtime. [facility] as 00 Apply to Medical fungal Branch toenails once daily; Every 7 days file toenails with nail filer and apply rubbing alcohol. ciclopirox 2021-0 Yes [id number] Apply to [facility] ([facility]) 8 6-15 area(s) at ity of % solution 00:00: bedtime. [facility] as 00 Apply to Medical fungal Branch toenails once daily; Every 7 days file toenails with nail filer and apply rubbing alcohol. ciclopirox 2021-0 Yes [id number] Apply to [facility] ([facility]) 8 6-15 area(s) at ity of % solution 00:00: bedtime. [facility] as 00 Apply to Medical fungal Branch toenails once daily; Every 7 days file toenails with nail filer and apply rubbing alcohol. ciclopirox 2021-0 Yes [id number] Apply to [facility] ([facility]) 8 6-15 area(s) at ity of % solution 00:00: bedtime. [facility] as 00 Apply to Medical fungal Branch toenails once daily; Every 7 days file toenails with nail filer and apply rubbing alcohol. ciclopirox 2021-0 Yes [id number] Apply to [facility] ([facility]) 8 6-15 area(s) at ity of % solution 00:00: bedtime. [facility] as 00 Apply to Medical fungal Branch toenails once daily; Every 7 days file toenails with nail filer and apply rubbing alcohol. ciclopirox 2021-0 Yes [id number] Apply to [facility] ([facility]) 8 6-15 area(s) at ity of % solution 00:00: bedtime. [facility] as 00 Apply to Medical fungal Branch toenails once daily; Every 7 days file toenails with nail filer and apply rubbing alcohol. ciclopirox 2021-0 Yes [id number] Apply to [facility] ([facility]) 8 6-15 area(s) at ity of % solution 00:00: bedtime. [facility] as 00 Apply to Medical fungal Branch toenails once daily; Every 7 days file toenails with nail filer and apply rubbing alcohol. ciclopirox 2021-0 Yes [id number] Apply to [facility] ([facility]) 8 6-15 area(s) at ity of % solution 00:00: bedtime. [facility] as 00 Apply to Medical fungal Branch toenails once daily; Every 7 days file toenails with nail filer and apply rubbing alcohol. ciclopirox 2021-0 Yes [id number] Apply to [facility] ([facility]) 8 6-15 area(s) at ity of % solution 00:00: bedtime. [facility] as 00 Apply to Medical fungal Branch toenails once daily; Every 7 days file toenails with nail filer and apply rubbing alcohol. ciclopirox 2021-0 Yes [id number] Apply to [facility] ([facility]) 8 6-15 area(s) at ity of % solution 00:00: bedtime. [facility] as 00 Apply to Medical fungal Branch toenails once daily; Every 7 days file toenails with nail filer and apply rubbing alcohol. ciclopirox 2021-0 Yes [id number] Apply to [facility] ([facility]) 8 6-15 area(s) at ity of % solution 00:00: bedtime. [facility] as 00 Apply to Medical fungal Branch toenails once daily; Every 7 days file toenails with nail filer and apply rubbing alcohol. ciclopirox 2021-0 Yes [id number] Apply to [facility] ([facility]) 8 6-15 area(s) at ity of % solution 00:00: bedtime. [facility] as 00 Apply to Medical fungal Branch toenails once daily; Every 7 days file toenails with nail filer and apply rubbing alcohol. ciclopirox 2021-0 Yes [id number] Apply to [facility] ([facility]) 8 6-15 area(s) at ity of % solution 00:00: bedtime. [facility] as 00 Apply to Medical fungal Branch toenails once daily; Every 7 days file toenails with nail filer and apply rubbing alcohol. ciclopirox 2021-0 Yes [id number] [facility] 8 6-15 area(s) at ity of % solution 00:00: bedtime. [facility] as 00 Apply to Medical fungal Branch toenails once daily; Every 7 days file toenails with nail filer and apply rubbing alcohol. ciclopirox 2021-0 Yes [id number] Apply to [facility] ([facility]) 8 6-15 area(s) at ity of % solution 00:00: bedtime. [facility] as 00 Apply to Medical fungal Branch toenails once daily; Every 7 days file toenails with nail filer and apply rubbing alcohol. ciclopirox 2021-0 Yes [id number] Apply to [facility] ([facility]) 8 6-15 area(s) at ity of % solution 00:00: bedtime. [facility] as 00 Apply to Medical fungal Branch toenails once daily; Every 7 days file toenails with nail filer and apply rubbing alcohol. ciclopirox 2021-0 Yes [id number] Apply to [facility] ([facility]) 8 6-15 area(s) at ity of % solution 00:00: bedtime. [facility] as 00 Apply to Medical fungal Branch toenails once daily; Every 7 days file toenails with nail filer and apply rubbing alcohol. ciclopirox 2021-0 Yes [id number] Apply to [facility] ([facility]) 8 6-15 area(s) at ity of % solution 00:00: bedtime. [facility] as 00 Apply to Medical fungal Branch toenails once daily; Every 7 days file toenails with nail filer and apply rubbing alcohol. ciclopirox 2021-0 Yes [id number] Apply to [facility] ([facility]) 8 6-15 area(s) at ity of % solution 00:00: bedtime. [facility] as 00 Apply to Medical fungal Branch toenails once daily; Every 7 days file toenails with nail filer and apply rubbing alcohol. ciclopirox 2021-0 Yes [id number] Apply to [facility] ([facility]) 8 6-15 area(s) at ity of % solution 00:00: bedtime. [facility] as 00 Apply to Medical fungal Branch toenails once daily; Every 7 days file toenails with nail filer and apply rubbing alcohol. ciclopirox 2021-0 Yes [id number] Apply to [facility] ([facility]) 8 6-15 area(s) at ity of % solution 00:00: bedtime. [facility] as 00 Apply to Medical fungal Branch toenails once daily; Every 7 days file toenails with nail filer and apply rubbing alcohol. ciclopirox 2021-0 Yes [id number] Apply to [facility] ([facility]) 8 6-15 area(s) at ity of % solution 00:00: bedtime. [place] Alber[place] as 00 Apply to Medical fungal Branch toenails once daily; Every 7 days file toenails with nail filer and apply rubbing alcohol. ciclopirox 2021-0 Yes [id number] [facility] to [facility]) 8 6-15 area(s) at ity of % solution 00:00: bedtime. [place] Alber[place] as 00 Apply to Medical fungal Branch toenails once daily; Every 7 days file toenails with nail filer and apply rubbing alcohol. ciclopirox 2021-0 Yes [id number] Apply to [facility] ([facility]) 8 6-15 area(s) at ity of % solution 00:00: bedtime. [place] as 00 Apply to Medical fungal Branch toenails once daily; Every 7 days file toenails with nail filer and apply rubbing alcohol. ciclopirox 2021-0 Yes [id number] Apply to [facility] ([facility]) 8 6-15 area(s) at ity of % solution 00:00: bedtime. [place] Alber[place] as 00 Apply to Medical fungal Branch toenails once daily; Every 7 days file toenails with nail filer and apply rubbing alcohol. ciclopirox 2021-0 Yes [id number] Apply to [facility] ([facility]) 8 6-15 area(s) at ity of % solution 00:00: bedtime. [place] as 00 Apply to Medical fungal Branch toenails once daily; Every 7 days file toenails with nail filer and apply rubbing alcohol. ciclopirox 2021-0 Yes [id number] Apply to [facility] ([facility]) 8 6-15 area(s) at ity of % solution 00:00: bedtime. [place] Alberto as 00 Apply to Medical fungal Branch toenails once daily; Every 7 days file toenails with nail filer and apply rubbing alcohol. ciclopirox 2021-0 Yes [id number] Apply to [facility] ([facility]) 8 6-15 area(s) at ity of % solution 00:00: bedtime. [place] Alberto as 00 Apply to Medical fungal Branch toenails once daily; Every 7 days file toenails with nail filer and apply rubbing alcohol. ciclopirox Yes [id number] Apply to [facility] ([facility]) 8 6-15 area(s) at ity of % solution 00:00: bedtime. [place] Alberto as 00 Apply to Medical fungal Branch toenails once daily; Every 7 days file toenails with nail filer and apply rubbing alcohol. Insulin Yes [id number] USE [facility] [place], 5-03 DIRECTED ity of Disposable, 00:00: [place]JECT [place] (NOVOFINE 00 [facility] 32) 32 ONCE DAILY Branch gauge x ICD-10 1/4" Ndle CODE E11.22 Insulin Yes [id number] USE [facility] [place], 5-03 DIRECTED ity of Disposable, 00:00: TO INJECT [place] (NOVOFINE 00 [facility] 32) 32 ONCE DAILY Branch gauge x ICD-10 1/4" Ndle CODE E11.22 Insulin Yes [id number] USE [facility] [place], 5-03 DIRECTED ity of Disposable, 00:00: TO INJECT [place] (NOVOFINE 00 [facility] 32) 32 ONCE DAILY Branch gauge x ICD-10 1/4" Ndle CODE E11.22 Insulin Yes [id number] USE [facility] [place], 5-03 DIRECTED ity of Disposable, 00:00: TO INJECT [place] (NOVOFINE 00 [facility] 32) 32 ONCE DAILY Branch gauge x ICD-10 1/4" Ndle CODE E11.22 Insulin Yes [id number] USE [facility] [place], 5-03 DIRECTED ity of Disposable, 00:00: TO INJECT [place] (NOVOFINE 00 [facility] 32) 32 ONCE DAILY Branch gauge x ICD-10 1/4" Ndle CODE E11.22 Insulin Yes [id number] USE [facility] [place], 5-03 DIRECTED ity of Disposable, 00:00: TO INJECT [place] (NOVOFINE 00 [facility] 32) 32 ONCE DAILY Branch gauge x ICD-10 1/4" Ndle CODE E11.22 Insulin Yes [id number] USE [facility] [place], 5-03 DIRECTED ity of Disposable, 00:00: TO INJECT [place] (NOVOFINE 00 [facility] 32) 32 ONCE DAILY Branch gauge x ICD-10 1/4" Ndle CODE E11.22 Insulin Yes [id number] USE [facility] [place], 5-03 DIRECTED ity of Disposable, 00:00: TO INJECT [place] (NOVOFINE 00 [facility] 32) 32 ONCE DAILY Branch gauge x ICD-10 1/4" Ndle CODE E11.22 Insulin Yes [id number] USE [facility] [place], 5-03 DIRECTED ity of Disposable, 00:00: TO INJECT [place] (NOVOFINE 00 [facility] 32) 32 ONCE DAILY Branch gauge x ICD-10 1/4" Ndle CODE E11.22 Insulin Yes [id number] USE [facility] [place], 5- DIRECTED ity of Disposable, 00:00: TO INJECT [place] (NOVOFINE 00 [facility] 32) 32 ONCE DAILY Branch gauge x ICD-10 1/4" Ndle CODE E11.22 Insulin Yes [id number] USE [facility] [place], 5- DIRECTED ity of Disposable, 00:00: TO INJECT [place] (NOVOFINE 00 [facility] 32) 32 ONCE DAILY Branch gauge x ICD-10 1/4" Ndle CODE E11.22 Insulin Yes [id number] USE [facility] [place], 5-03 DIRECTED ity of Disposable, 00:00: TO INJECT [place] (NOVOFINE 00 [facility] 32) 32 ONCE DAILY Branch gauge x ICD-10 1/4" Ndle CODE E11.22 Insulin Yes [id number] USE [facility] [place], 5-03 DIRECTED ity of Disposable, 00:00: TO INJECT [place] (NOVOFINE 00 [facility] 32) 32 ONCE DAILY Branch gauge x ICD-10 1/4" Ndle CODE E11.22 Insulin Yes [id number] USE [facility] [place], 5-03 DIRECTED ity of Disposable, 00:00: TO INJECT [place] (NOVOFINE 00 [facility] 32) 32 ONCE DAILY Branch gauge x ICD-10 1/4" Ndle CODE E11.22 Insulin Yes [id number] USE [facility] [place], 5- DIRECTED ity of Disposable, 00:00: TO INJECT [place] (NOVOFINE 00 [facility] 32) 32 ONCE DAILY Branch gauge x ICD-10 1/4" Ndle CODE E11.22 Insulin Yes [id number] USE [facility] [place], 5- DIRECTED ity of Disposable, 00:00: TO INJECT [place] (NOVOFINE 00 [facility] 32) 32 ONCE DAILY Branch gauge x ICD-10 1/4" Ndle CODE E11.22 Insulin Yes [id number] USE [facility] [place], 5- DIRECTED ity of Disposable, 00:00: TO INJECT [place] (NOVOFINE 00 [facility] 32) 32 ONCE DAILY Branch gauge x ICD-10 1/4" Ndle CODE E11.22 Insulin Yes [id number] USE [facility] [place], 5- DIRECTED ity of Disposable, 00:00: TO INJECT [place] (NOVOFINE 00 [facility] 32) 32 ONCE DAILY Branch gauge x ICD-10 1/4" Ndle CODE E11.22 Insulin Yes [id number] USE [facility] [place], 5- DIRECTED ity of Disposable, 00:00: TO INJECT [place] (NOVOFINE 00 [facility] 32) 32 ONCE DAILY Branch gauge x ICD-10 1/4" Ndle CODE E11.22 Insulin Yes [id number] USE [facility] [place], 5- DIRECTED ity of Disposable, 00:00: TO INJECT [place] (NOVOFINE 00 [facility] 32) 32 ONCE DAILY Branch gauge x ICD-10 1/4" Ndle CODE E11.22 Insulin Yes [id number] USE [facility] [place], 5- DIRECTED ity of Disposable, 00:00: TO INJECT [place] (NOVOFINE 00 [facility] 32) 32 ONCE DAILY Branch gauge x ICD-10 1/4" Ndle CODE E11.22 Insulin Yes [id number] USE [facility] [place], 5-03 DIRECTED ity of Disposable, 00:00: TO INJECT [place] (NOVOFINE 00 [facility] 32) 32 ONCE DAILY Branch gauge x ICD-10 1/4" Ndle CODE E11.22 Insulin Yes [id number] USE [facility] [place], 5- DIRECTED ity of Disposable, 00:00: TO INJECT [place] (NOVOFINE 00 [facility] 32) 32 ONCE DAILY Branch gauge x ICD-10 1/4" Ndle CODE E11.22 Insulin Yes [id number] USE [facility] [place], 5- DIRECTED ity of Disposable, 00:00: TO INJECT [place] (NOVOFINE 00 [facility] 32) 32 ONCE DAILY Branch gauge x ICD-10 1/4" Ndle CODE E11.22 Insulin Yes [id number] USE [facility] [place], 5- DIRECTED ity of Disposable, 00:00: TO INJECT [place] (NOVOFINE 00 [facility] 32) 32 ONCE DAILY Branch gauge x ICD-10 1/4" Ndle CODE E11.22 Insulin Yes [id number] USE [facility] [place], 5- DIRECTED ity of Disposable, 00:00: TO INJECT [place] (NOVOFINE 00 [facility] 32) 32 ONCE DAILY Branch gauge x ICD-10 1/4" Ndle CODE E11.22 Insulin Yes [id number] USE [facility] [place], 5- DIRECTED ity of Disposable, 00:00: TO INJECT [place] (NOVOFINE 00 [facility] 32) 32 ONCE DAILY Branch gauge x ICD-10 1/4" Ndle CODE E11.22 Insulin Yes [id number] USE [facility] [place], 5- DIRECTED ity of Disposable, 00:00: TO INJECT [place] (NOVOFINE 00 [facility] 32) 32 ONCE DAILY Branch gauge x ICD-10 1/4" Ndle CODE E11.22 Insulin 0 Yes [id number] USE [facility] [place], 5- DIRECTED ity of Disposable, 00:00: TO INJECT [place] (NOVOFINE 00 [facility] 32) 32 ONCE DAILY Branch gauge x ICD-10 1/4" Ndle CODE E11.22 Insulin Yes [id number] USE [facility] [place], 5- DIRECTED ity of Disposable, 00:00: TO INJECT [place] (NOVOFINE 00 [facility] 32) 32 ONCE DAILY Branch gauge x ICD-10 1/4" Ndle CODE E11.22 Insulin Yes [id number] USE [facility] [place], 5- DIRECTED ity of Disposable, 00:00: TO INJECT [place] (NOVOFINE 00 [facility] 32) 32 ONCE DAILY Branch gauge x ICD-10 1/4" Ndle CODE E11.22 Insulin 0 Yes [id number] USE [facility] [place], 5- DIRECTED ity of Disposable, 00:00: TO INJECT [place] (NOVOFINE 00 [facility] 32) 32 ONCE DAILY Branch gauge x ICD-10 1/4" Ndle CODE E11.22 Insulin Yes [id number] USE [facility] [place], 5- DIRECTED ity of Disposable, 00:00: TO INJECT [place] (NOVOFINE 00 [facility] 32) 32 ONCE DAILY Branch gauge x ICD-10 1/4" Ndle CODE E11.22 Insulin Yes [id number] USE [facility] [place], 5- DIRECTED ity of Disposable, 00:00: TO INJECT [place] (NOVOFINE 00 [facility] 32) 32 ONCE DAILY Branch gauge x ICD-10 1/4" Ndle CODE E11.22 Insulin Yes [id number] USE [facility] [place], 5- DIRECTED ity of Disposable, 00:00: TO INJECT [place] (NOVOFINE 00 [facility] 32) 32 ONCE DAILY Branch gauge x ICD-10 1/4" Ndle CODE E11.22 Insulin Yes [id number] USE [facility] [place], 5- DIRECTED ity of Disposable, 00:00: TO INJECT [place] (NOVOFINE 00 [facility] 32) 32 ONCE DAILY Branch gauge x ICD-10 1/4" Ndle CODE E11.22 Insulin Yes [id number] USE [facility] [place], 5- DIRECTED ity of Disposable, 00:00: TO INJECT [place] (NOVOFINE 00 [facility] 32) 32 ONCE DAILY Branch gauge x ICD-10 1/4" Ndle CODE E11.22 Insulin Yes [id number] USE [facility] [place], 5- DIRECTED ity of Disposable, 00:00: TO INJECT [place] (NOVOFINE 00 [facility] 32) 32 ONCE DAILY Branch gauge x ICD-10 1/4" Ndle CODE E11.22 Insulin 2020-0 Yes [id number] USE [facility] [place], 5- DIRECTED ity of Disposable, 00:00: TO INJECT [place] (NOVOFINE 00 [facility] 32) 32 ONCE DAILY Branch gauge x ICD-10 1/4" Ndle CODE E11.22 Insulin 2020-0 Yes [id number] USE [facility] [place], 5- DIRECTED ity of Disposable, 00:00: TO INJECT [place] (NOVOFINE 00 [facility] 32) 32 ONCE DAILY Branch gauge x ICD-10 1/4" Ndle CODE E11.22 Insulin 0 Yes [id number] USE [facility] [place], 5- DIRECTED ity of Disposable, 00:00: TO INJECT [place] (NOVOFINE 00 [facility] 32) 32 ONCE DAILY Branch gauge x ICD-10 1/4" Ndle CODE E11.22 Insulin Yes [id number] USE [facility], 5- DIRECTED ity of Disposable, 00:00: TO INJECT [place] (NOVOFINE 00 [facility] 32) 32 ONCE DAILY Branch gauge x ICD-10 1/4" Ndle CODE E11.22 Insulin 0 Yes [id number] USE [facility] [place], 5- DIRECTED ity of Disposable, 00:00: TO INJECT [place] (NOVOFINE 00 [facility] 32) 32 ONCE DAILY Branch gauge x ICD-10 1/4" Ndle CODE E11.22 Insulin 0 Yes [id number] USE [facility] [place], 5- DIRECTED ity of Disposable, 00:00: TO INJECT [place] (NOVOFINE 00 [facility] 32) 32 ONCE DAILY Branch gauge x ICD-10 1/4" Ndle CODE E11.22 loperamide 2020-0 Yes [facility] 2 mg 4-16 ity of capsule 00:00: [address] ondansetron 2020-0 Yes [facility] 4 mg tablet 4-16 ity of 00:00: [address] loperamide 2020-0 Yes [facility] 2 mg 4-16 ity of capsule 00:00: [address] ondansetron 0 Yes Un[facility] 4 mg tablet 4-16 ity of 00:00: [place] 00 [facility] Branch loperamide 1-0 Yes [facility] 2 mg 4-16 ity of capsule 00:00: [place] [facility] ondansetron 1-0 Yes [facility] 4 mg tablet 4-16 ity of 00:00: [place] [facility] loperamide 1-0 Yes [facility] 2 mg 4-16 ity of capsule 00:00: [place] [facility] ondansetron 2020-0 Yes [facility] 4 mg tablet 4-16 ity of 00:00: [place] [facility] loperamide 1-0 Yes [facility] 2 mg 4-16 ity of capsule 00:00: [place] [facility] ondansetron 2020-0 Yes [facility] 4 mg tablet 4-16 ity of 00:00: [place] [facility] loperamide 2020-0 Yes [facility] 2 mg 4-16 ity of capsule 00:00: [place] [address] Medical Branch ondansetron 2020-0 Yes Univer [facility] 4 mg tablet 4-16 ity of 00:00: [place] [facility] loperamide 2020-0 Yes [facility] 2 mg 4-16 ity of capsule 00:00: [place] [address] Medical Branch ondansetron 2020-0 Yes [facility] 4 mg tablet 4-16 ity of 00:00: [place] [address] Medical Branch loperamide 2020-0 Yes [facility] 2 mg 4-16 ity of capsule 00:00: [place] [facility] ondansetron 2020-0 Yes [facility] 4 mg tablet 4-16 ity of 00:00: [place] [facility] loperamide 1-0 Yes [facility] 2 mg 4-16 ity of capsule 00:00: [place] [facility] ondansetron 1-0 Yes [facility] 4 mg tablet 4-16 ity of 00:00: [place] [address] Medical Branch loperamide 1-0 Yes [facility] 2 mg 4-16 ity of capsule 00:00: [place] [facility] ondansetron 2020-0 Yes [facility] 4 mg tablet 4-16 ity of 00:00: [place] [address] Medical Branch loperamide 1-0 Yes [facility] 2 mg 4-16 ity of capsule 00:00: [place] [facility] ondansetron 2020-0 Yes Un[facility] 4 mg tablet 4-16 ity of 00:00: [place] [address] Medical Branch loperamide 1-0 Yes [facility] 2 mg 4-16 ity of capsule 00:00: [place] [facility] ondansetron 2020-0 Yes Un[facility] 4 mg tablet 4-16 ity of 00:00: [place] [facility] loperamide 1-0 Yes [facility] 2 mg 4-16 ity of capsule 00:00: [place] [facility] ondansetron 2020-0 Yes [facility] 4 mg tablet 4-16 ity of 00:00: [place] [facility] loperamide 1-0 Yes [facility] 2 mg 4-16 ity of capsule 00:00: [place] [facility] ondansetron 2020-0 Yes [facility] 4 mg tablet 4-16 ity of 00:00: [place] [facility] loperamide 1-0 Yes [facility] 2 mg 4-16 ity of capsule 00:00: [place] [address] Medical Branch ondansetron 2020-0 Yes Un[facility] 4 mg tablet 4-16 ity of 00:00: [place] [facility] loperamide 1-0 Yes [facility] 2 mg 4-16 ity of capsule 00:00: [place] [facility] ondansetron 2020-0 Yes [facility] 4 mg tablet 4-16 ity of 00:00: [place] [address] Medical Branch loperamide 1-0 Yes [facility] 2 mg 4-16 ity of capsule 00:00: [place] [facility] ondansetron 2020-0 Yes Un[facility] 4 mg tablet 4-16 ity of 00:00: [place] [address] Medical Branch loperamide 1-0 Yes [facility] 2 mg 4-16 ity of capsule 00:00: [place] [facility] ondansetron 1-0 Yes [facility] 4 mg tablet 4-16 ity of 00:00: [place] [address] Medical Branch loperamide 1-0 Yes [facility] 2 mg 4-16 ity of capsule 00:00: [place] [facility] ondansetron 1-0 Yes [facility] 4 mg tablet 4-16 ity of 00:00: [place] [address] Medical Branch loperamide 1-0 Yes [facility] 2 mg 4-16 ity of capsule 00:00: [place] [address] Medical Branch ondansetron 2020-0 Yes [facility] 4 mg tablet 4-16 ity of 00:00: [place] [address] Medical Branch loperamide 1-0 Yes [facility] 2 mg 4-16 ity of capsule 00:00: [place] [facility] ondansetron 2020-0 Yes [facility] 4 mg tablet 4-16 ity of 00:00: [place] [facility] loperamide 1-0 Yes [facility] 2 mg 4-16 ity of capsule 00:00: [place] [facility] ondansetron 2020-0 Yes [facility] 4 mg tablet 4-16 ity of 00:00: [place] [facility] loperamide 2020-0 Yes [facility] 2 mg 4-16 ity of capsule 00:00: [place] [facility] ondansetron 2020-0 Yes [facility] 4 mg tablet 4-16 ity of 00:00: [place] [facility] loperamide 2020-0 Yes [facility] 2 mg 4-16 ity of capsule 00:00: [place] [facility] ondansetron 2020-0 Yes [facility] 4 mg tablet 4-16 ity of 00:00: [place] [facility] loperamide 2020-0 Yes [facility] 2 mg 4-16 ity of capsule 00:00: [place] [facility] ondansetron 2020-0 Yes [facility] 4 mg tablet 4-16 ity of 00:00: [place] [address] Medical Branch loperamide 2020-0 Yes [facility] 2 mg 4-16 ity of capsule 00:00: [place] [facility] ondansetron 2020-0 Yes [facility] 4 mg tablet 4-16 ity of 00:00: [place] [facility] loperamide 1-0 Yes [facility] 2 mg 4-16 ity of capsule 00:00: [place] [facility] ondansetron 1-0 Yes [facility] 4 mg tablet 4-16 ity of 00:00: [place] [address] Medical Branch loperamide 1-0 Yes [facility] 2 mg 4-16 ity of capsule 00:00: [place] [facility] ondansetron 2020-0 Yes [facility] 4 mg tablet 4-16 ity of 00:00: [place] [facility] loperamide 2020-0 Yes [facility] 2 mg 4-16 ity of capsule 00:00: [place] [facility] ondansetron 2020-0 Yes [facility] 4 mg tablet 4-16 ity of 00:00: [place] [address] Medical Branch loperamide 2021-0 Yes [facility] 2 mg 4-16 ity of capsule 00:00: [place] [facility] ondansetron 2020-0 Yes [facility] 4 mg tablet 4-16 ity of 00:00: [place] [facility] loperamide 2020-0 Yes [facility] 2 mg 4-16 ity of capsule 00:00: [place] [facility] ondansetron 2020-0 Yes [facility] 4 mg tablet 4-16 ity of 00:00: [place] [facility] loperamide 2020-0 Yes [facility] 2 mg 4-16 ity of capsule 00:00: [place] [facility] ondansetron 2020-0 Yes [facility] 4 mg tablet 4-16 ity of 00:00: [place] [facility] loperamide 2020-0 Yes [facility] 2 mg 4-16 ity of capsule 00:00: [place] [facility] ondansetron 2020-0 Yes [facility] 4 mg tablet 4-16 ity of 00:00: [place] [facility] loperamide 2020-0 Yes [facility] 2 mg 4-16 ity of capsule 00:00: [place] [facility] ondansetron 2020-0 Yes [facility] 4 mg tablet 4-16 ity of 00:00: [place] [address] [facility] Branch loperamide 2020-0 Yes [facility] 2 mg 4-16 ity of capsule 00:00: [place] [facility] ondansetron 2020-0 Yes [facility] 4 mg tablet 4-16 ity of 00:00: [place] [address] [facility] Branch loperamide 2020-0 Yes [facility] 2 mg 4-16 ity of capsule 00:00: [place] [facility] ondansetron 2020-0 Yes Univer s 4 mg tablet 4-16 ity of 00:00: [place] [facility] loperamide 2020-0 Yes [facility] 2 mg 4-16 ity of capsule 00:00: [place] [facility] ondansetron 2020-0 Yes [facility] 4 mg tablet 4-16 ity of 00:00: [place] [facility] loperamide 2020-0 Yes [facility] 2 mg 4-16 ity of capsule 00:00: [place] [address] Medical Branch ondansetron 2020-0 Yes Un[facility] 4 mg tablet 4-16 ity of 00:00: [place] [facility] loperamide 2020-0 Yes [facility] 2 [...] tablet 4-16 ity of 00:00: Medical Branch acetaminoph 2020- Yes [id number] 650mg Take 1 [facility] en (TYLENOL 0-20 tablet by ity of 8 HOUR) 650 00:00: mouth [place] mg CR 00 every 8 Medical tablet (eight) Branch hours as needed for Pain. acetaminoph 2019-06 Yes [id number] 650mg Take 1 [facility] en (TYLENOL 0-20 tablet by ity of 8 HOUR) 650 00:00: mouth [place] mg CR 00 every 8 Medical tablet (eight) Branch hours as needed for Pain. acetaminoph 2020- Yes [id number] 650mg Take 1 [facility] en (TYLENOL 0-20 tablet by ity of 8 HOUR) 650 00:00: mouth [place] mg CR 00 every 8 Medical tablet (eight) Branch hours as needed for Pain. acetaminoph 2019- Yes [id number] 650mg Take 1 [facility] en (TYLENOL 0-20 tablet by ity of 8 HOUR) 650 00:00: mouth [place] mg CR 00 every 8 Medical tablet (eight) Branch hours as needed for Pain. acetaminoph 2019-06 Yes [id number] 650mg Take 1 [facility] en (TYLENOL 0-20 tablet by ity of 8 HOUR) 650 00:00: mouth [place] mg CR 00 every 8 Medical tablet (eight) Branch hours as needed for Pain. acetaminoph 2019-06 Yes [id number] 650mg Take 1 [facility] en (TYLENOL 0-20 tablet by ity of 8 HOUR) 650 00:00: mouth [place] mg CR 00 every 8 Medical tablet (eight) Branch hours as needed for Pain. acetaminoph 2019-06 Yes [id number] 650mg Take 1 [facility] en (TYLENOL 0-20 tablet by ity of 8 HOUR) 650 00:00: mouth [place] mg CR 00 every 8 Medical tablet (eight) Branch hours as needed for Pain. acetaminoph 2019-06 Yes [id number] 650mg Take 1 [facility] en (TYLENOL 0-20 tablet by ity of 8 HOUR) 650 00:00: mouth [place] mg CR 00 every 8 Medical tablet (eight) Branch hours as needed for Pain. acetaminoph 2019-06 Yes [id number] 650mg Take 1 [facility] en (TYLENOL 0-20 tablet by ity of 8 HOUR) 650 00:00: mouth [place] mg CR 00 every 8 Medical tablet (eight) Branch hours as needed for Pain. acetaminoph 2019-06 Yes [id number] 650mg Take 1 [facility] en (TYLENOL 0-20 tablet by ity of 8 HOUR) 650 00:00: mouth [place] mg CR 00 every 8 Medical tablet (eight) Branch hours as needed for Pain. acetaminoph 2019-06 Yes [id number] 650mg Take 1 [facility] en (TYLENOL 0-20 tablet by ity of 8 HOUR) 650 00:00: mouth [place] mg CR 00 every 8 Medical tablet (eight) Branch hours as needed for Pain. acetaminoph 2019-06 Yes [id number] 650mg Take 1 [facility] en (TYLENOL 0-20 tablet by ity of 8 HOUR) 650 00:00: mouth [place] mg CR 00 every 8 Medical tablet (eight) Branch hours as needed for Pain. acetaminoph 2019-06 Yes [id number] 650mg Take 1 [facility] en (TYLENOL 0-20 tablet by ity of 8 HOUR) 650 00:00: mouth [place] mg CR 00 every 8 Medical tablet (eight) Branch hours as needed for Pain. acetaminoph 2019- Yes [id number] 650mg Take 1 [facility] en (TYLENOL 0-20 tablet by ity of 8 HOUR) 650 00:00: mouth [place] mg CR 00 every 8 Medical tablet (eight) Branch hours as needed for Pain. acetaminoph 2019- Yes [id number] 650mg Take 1 [facility] en (TYLENOL 0-20 tablet by ity of 8 HOUR) 650 00:00: mouth [place] mg CR 00 every 8 Medical tablet (eight) Branch hours as needed for Pain. acetaminoph 2019-06 Yes [id number] 650mg Take 1 [facility] en (TYLENOL 0-20 tablet by ity of 8 HOUR) 650 00:00: mouth [place] mg CR 00 every 8 Medical tablet (eight) Branch hours as needed for Pain. acetaminoph 2019-06 Yes [id number] 650mg Take 1 [facility] en (TYLENOL 0-20 tablet by ity of 8 HOUR) 650 00:00: mouth [place] mg CR 00 every 8 Medical tablet (eight) Branch hours as needed for Pain. acetaminoph 2019-06 Yes [id number] 650mg Take 1 [facility] en (TYLENOL 0-20 tablet by ity of 8 HOUR) 650 00:00: mouth [place] mg CR 00 every 8 Medical tablet (eight) Branch hours as needed for Pain. acetaminoph 2019-06 Yes [id number] 650mg Take 1 [facility] en (TYLENOL 0-20 tablet by ity of 8 HOUR) 650 00:00: mouth [place] mg CR 00 every 8 Medical tablet (eight) Branch hours as needed for Pain. acetaminoph 2019-06 Yes [id number] 650mg Take 1 [facility] en (TYLENOL 0-20 tablet by ity of 8 HOUR) 650 00:00: mouth [place] mg CR 00 every 8 Medical tablet (eight) Branch hours as needed for Pain. acetaminoph 2019- Yes [id number] 650mg Take 1 [facility] en (TYLENOL 0-20 tablet by ity of 8 HOUR) 650 00:00: mouth [place] mg CR 00 every 8 Medical tablet (eight) Branch hours as needed for Pain. acetaminoph 2020- Yes [id number] 650mg Take 1 [facility] en (TYLENOL 0-20 tablet by ity of 8 HOUR) 650 00:00: mouth [place] mg CR 00 every 8 Medical tablet (eight) Branch hours as needed for Pain. acetaminoph 2020- Yes [id number] 650mg Take 1 [facility] en (TYLENOL 0-20 tablet by ity of 8 HOUR) 650 00:00: mouth [place] mg CR 00 every 8 Medical tablet (eight) Branch hours as needed for Pain. acetaminoph 2020- Yes [id number] 650mg Take 1 [facility] en (TYLENOL 0-20 tablet by ity of 8 HOUR) 650 00:00: mouth [place] mg CR 00 every 8 Medical tablet (eight) Branch hours as needed for Pain. acetaminoph 2019-06 Yes [id number] 650mg Take 1 [facility] en (TYLENOL 0-20 tablet by ity of 8 HOUR) 650 00:00: mouth [place] mg CR 00 every 8 Medical tablet (eight) Branch hours as needed for Pain. acetaminoph 2019-06 Yes [id number] 650mg Take 1 [facility] en (TYLENOL 0-20 tablet by ity of 8 HOUR) 650 00:00: mouth [place] mg CR 00 every 8 Medical tablet (eight) Branch hours as needed for Pain. acetaminoph 2019-06 Yes [id number] 650mg Take 1 [facility] en (TYLENOL 0-20 tablet by ity of 8 HOUR) 650 00:00: mouth [place] mg CR 00 every 8 Medical tablet (eight) Branch hours as needed for Pain. acetaminoph 2019-06 Yes [id number] 650mg Take 1 [facility] en (TYLENOL 0-20 tablet by ity of 8 HOUR) 650 00:00: mouth [place] mg CR 00 every 8 Medical tablet (eight) Branch hours as needed for Pain. acetaminoph 2019- Yes [id number] 650mg Take 1 [facility] en (TYLENOL 0-20 tablet by ity of 8 HOUR) 650 00:00: mouth [place] mg CR 00 every 8 Medical tablet (eight) Branch hours as needed for Pain. acetaminoph 2020- Yes [id number] 650mg Take 1 [facility] en (TYLENOL 0-20 tablet by ity of 8 HOUR) 650 00:00: mouth [place] mg CR 00 every 8 Medical tablet (eight) Branch hours as needed for Pain. acetaminoph 2020- Yes [id number] 650mg Take 1 [facility] en (TYLENOL 0-20 tablet by ity of 8 HOUR) 650 00:00: mouth [place] mg CR 00 every 8 Medical tablet (eight) Branch hours as needed for Pain. acetaminoph 2020- Yes [id number] 650mg Take 1 [facility] en (TYLENOL 0-20 tablet by ity of 8 HOUR) 650 00:00: mouth [place] mg CR 00 every 8 Medical tablet (eight) Branch hours as needed for Pain. acetaminoph 2019-06 Yes [id number] 650mg Take 1 [facility] en (TYLENOL 0-20 tablet by ity of 8 HOUR) 650 00:00: mouth [place] mg CR 00 every 8 Medical tablet (eight) Branch hours as needed for Pain. acetaminoph 2019-06 Yes [id number] 650mg Take 1 [facility] en (TYLENOL 0-20 tablet by ity of 8 HOUR) 650 00:00: mouth [place] mg CR 00 every 8 Medical tablet (eight) Branch hours as needed for Pain. acetaminoph 2019-06 Yes [id number] 650mg Take 1 [facility] (TYLENOL 0-20 tablet by ity of 8 HOUR) 650 00:00: mouth [place] mg CR 00 every 8 Medical tablet (eight) Branch hours as needed for Pain. acetaminoph 2019-06 Yes [id number] 650mg Take 1 [facility] (TYLENOL 0-20 tablet by ity of 8 HOUR) 650 00:00: mouth [place] mg CR 00 every 8 Medical tablet (eight) Branch hours as needed for Pain. acetaminoph 2019-06 Yes [id number] 650mg Take 1 [facility] (TYLENOL 0-20 tablet by ity of 8 HOUR) 650 00:00: mouth [place] mg CR 00 every 8 Medical tablet (eight) Branch hours as needed for Pain. acetaminoph 2019-06 Yes [id number] 650mg Take 1 [facility] (TYLENOL 0-20 tablet by ity of 8 HOUR) 650 00:00: mouth [place] mg CR 00 every 8 Medical tablet (eight) Branch hours as needed for Pain. acetaminoph 2020- Yes [id number] 650mg Take 1 [facility] (TYLENOL 0-20 tablet by ity of 8 HOUR) 650 00:00: mouth [place] mg CR 00 every 8 Medical tablet (eight) Branch hours as needed for Pain. acetaminoph 2020- Yes [id number] 650mg Take 1 [facility] (TYLENOL 0-20 tablet by ity of 8 HOUR) 650 00:00: mouth [place] mg CR 00 every 8 Medical tablet (eight) Branch hours as needed for Pain. acetaminoph 2020- Yes [id number] 650mg Take 1 [facility] (TYLENOL 0-20 tablet by ity of 8 HOUR) 650 00:00: mouth [place] mg CR 00 every 8 Medical tablet (eight) Branch hours as needed for Pain. acetaminoph 2020- Yes [id number] 650mg Take 1 [facility] (TYLENOL 0-20 tablet by ity of 8 HOUR) 650 00:00: mouth [place] mg CR 00 every 8 Medical tablet (eight) Branch hours as needed for Pain. acetaminoph 2019- Yes [id number] 650mg Take 1 [facility] (TYLENOL 0-20 tablet by ity of 8 HOUR) 650 00:00: mouth [place] mg CR 00 every 8 Medical tablet (eight) Branch hours as needed for Pain. acetaminoph 2019- Yes [id number] 650mg Take 1 [facility] (TYLENOL 0-20 tablet by ity of 8 HOUR) 650 00:00: mouth [place] mg CR 00 every 8 Medical tablet (eight) Branch hours as needed for Pain. Alcohol 2020-0 Yes [id number] Use 1 pad U nivers Swabs 4-03 PRN to ity of (ALCOHOL 00:00: prep [place] PREP PADS[place] 00 for Medical PadM insulin Branch injection or glucose testing; ICD-10 code E11.22 Alcohol 2020-0 Yes [id number] Use 1 pad U nivers Swabs 4-03 PRN to ity of (ALCOHOL 00:00: [place] PREP PADS[place] 00 for Medical PadM insulin Branch injection or glucose testing; ICD-10 code E11.22 Alcohol 2020-0 Yes [id number] Use 1 pad U nivers Swabs 4-03 PRN to ity of (ALCOHOL 00:00: prep [place] PREP PADS) 00 for Medical PadM insulin Branch injection or glucose testing; ICD-10 code E11.22 Alcohol 2020-0 Yes [id number] Use 1 pad U nivers Swabs 4-03 PRN to ity of (ALCOHOL 00:00: prep [place] PREP PADS) 00 for Medical PadM insulin Branch injection or glucose testing; ICD-10 code E11.22 Alcohol 2020-0 Yes [id number] Use 1 pad U nivers Swabs 4-03 PRN to ity of (ALCOHOL 00:00: prep [place] PREP PADS) 00 for Medical PadM insulin Branch injection or glucose testing; ICD-10 code E11.22 Alcohol 2020-0 Yes [id number] Use 1 pad U nivers Swabs 4-03 PRN to ity of (ALCOHOL 00:00: prep [place] PREP PADS) 00 for Medical PadM insulin Branch injection or glucose testing; ICD-10 code E11.22 Alcohol 2020-0 Yes [id number] Use 1 pad U nivers Swabs 4-03 PRN to ity of (ALCOHOL 00:00: prep [place] PREP PADS) 00 for Medical PadM insulin Branch injection or glucose testing; ICD-10 code E11.22 Alcohol 2020-0 Yes [id number] Use 1 pad U nivers Swabs 4-03 PRN to ity of (ALCOHOL 00:00: prep [place] PREP PADS) 00 for Medical PadM insulin Branch injection or glucose testing; ICD-10 code E11.22 Alcohol 2020-0 Yes [id number] Use 1 pad U nivers Swabs 4-03 PRN to ity of (ALCOHOL 00:00: prep [place] PREP PADS) 00 for Medical PadM insulin Branch injection or glucose testing; ICD-10 code E11.22 Alcohol 2020-0 Yes [id number] Use 1 pad U nivers Swabs 4-03 PRN to ity of (ALCOHOL 00:00: prep [place] PREP PADS) 00 for Medical PadM insulin Branch injection or glucose testing; ICD-10 code E11.22 Alcohol 2020-0 Yes [id number] Use 1 pad U nivers Swabs 4-03 PRN to ity of (ALCOHOL 00:00: prep [place] PREP PADS) 00 for Medical PadM insulin Branch injection or glucose testing; ICD-10 code E11.22 Alcohol 2020-0 Yes [id number] Use 1 pad U nivers Swabs 4-03 PRN to ity of (ALCOHOL 00:00: prep [place] PREP PADS) 00 for Medical PadM insulin Branch injection or glucose testing; ICD-10 code E11.22 Alcohol 2020-0 Yes [id number] Use 1 pad U nivers Swabs 4-03 PRN to ity of (ALCOHOL 00:00: prep [place] PREP PADS) 00 for Medical PadM insulin Branch injection or glucose testing; ICD-10 code E11.22 Alcohol 2020-0 Yes [id number] Use 1 pad U nivers Swabs 4-03 PRN to ity of (ALCOHOL 00:00: prep [place] PREP PADS) 00 for Medical PadM insulin Branch injection or glucose testing; ICD-10 code E11.22 Alcohol 2020-0 Yes [id number] Use 1 pad U nivers Swabs 4-03 PRN to ity of (ALCOHOL 00:00: prep [place] PREP PADS) 00 for Medical PadM insulin Branch injection or glucose testing; ICD-10 code E11.22 Alcohol 2020-0 Yes [id number] Use 1 pad U nivers Swabs 4-03 PRN to ity of (ALCOHOL 00:00: prep [place] PREP PADS) 00 for Medical PadM insulin Branch injection or glucose testing; ICD-10 code E11.22 Alcohol 2020-0 Yes [id number] Use 1 pad U nivers Swabs 4-03 PRN to ity of (ALCOHOL 00:00: prep [place] PREP PADS) 00 for Medical PadM insulin Branch injection or glucose testing; ICD-10 code E11.22 Alcohol 2020-0 Yes [id number] Use 1 pad U nivers Swabs 4-03 PRN to ity of (ALCOHOL 00:00: prep [place] PREP PADS) 00 for Medical PadM insulin Branch injection or glucose testing; ICD-10 code E11.22 Alcohol 2020-0 Yes [id number] Use 1 pad U nivers Swabs 4-03 PRN to ity of (ALCOHOL 00:00: prep [place] PREP PADS) 00 for Medical PadM insulin Branch injection or glucose testing; ICD-10 code E11.22 Alcohol 2020-0 Yes [id number] Use 1 pad U nivers Swabs 4-03 PRN to ity of (ALCOHOL 00:00: prep [place] PREP PADS) 00 for Medical PadM insulin Branch injection or glucose testing; ICD-10 code E11.22 Alcohol 2020-0 Yes [id number] Use 1 pad U nivers Swabs 4-03 PRN to ity of (ALCOHOL 00:00: prep [place] PREP PADS) 00 for Medical PadM insulin Branch injection or glucose testing; ICD-10 code E11.22 Alcohol 2020-0 Yes [id number] Use 1 pad U nivers Swabs 4-03 PRN to ity of (ALCOHOL 00:00: prep [place] PREP PADS) 00 for Medical PadM insulin Branch injection or glucose testing; ICD-10 code E11.22 Alcohol 2020-0 Yes [id number] Use 1 pad U nivers Swabs 4-03 PRN to ity of (ALCOHOL 00:00: prep [place] PREP PADS) 00 for Medical PadM insulin Branch injection or glucose testing; ICD-10 code E11.22 Alcohol 2020-0 Yes [id number] Use 1 pad U nivers Swabs 4-03 PRN to ity of (ALCOHOL 00:00: prep [place] PREP PADS) 00 for Medical PadM insulin Branch injection or glucose testing; ICD-10 code E11.22 Alcohol 2020-0 Yes [id number] Use 1 pad U nivers Swabs 4-03 PRN to ity of (ALCOHOL 00:00: prep [place] PREP PADS) 00 for Medical PadM insulin Branch injection or glucose testing; ICD-10 code E11.22 Alcohol 2020-0 Yes [id number] Use 1 pad U nivers Swabs 4-03 PRN to ity of (ALCOHOL 00:00: prep [place] PREP PADS) 00 for Medical PadM insulin Branch injection or glucose testing; ICD-10 code E11.22 Alcohol 2020-0 Yes [id number] Use 1 pad U nivers Swabs 4-03 PRN to ity of (ALCOHOL 00:00: prep [place] PREP PADS) 00 for Medical PadM insulin Branch injection or glucose testing; ICD-10 code E11.22 Alcohol 2020-0 Yes [id number] Use 1 pad U nivers Swabs 4-03 PRN to ity of (ALCOHOL 00:00: prep [place] PREP PADS) 00 for Medical PadM insulin Branch injection or glucose testing; ICD-10 code E11.22 Alcohol 2020-0 Yes [id number] Use 1 pad U nivers Swabs 4-03 PRN to ity of (ALCOHOL 00:00: prep [place] PREP PADS) 00 for Medical PadM insulin Branch injection or glucose testing; ICD-10 code E11.22 Alcohol 2020-0 Yes [id number] Use 1 pad U nivers Swabs 4-03 PRN to ity of (ALCOHOL 00:00: prep [place] PREP PADS) 00 for Medical PadM insulin Branch injection or glucose testing; ICD-10 code E11.22 Alcohol 2020-0 Yes [id number] Use 1 pad U nivers Swabs 4-03 PRN to ity of (ALCOHOL 00:00: prep [place] PREP PADS) 00 for Medical PadM insulin Branch injection or glucose testing; ICD-10 code E11.22 Alcohol 2020-0 Yes [id number] Use 1 pad U nivers Swabs 4-03 PRN to ity of (ALCOHOL 00:00: prep [place] PREP PADS) 00 for Medical PadM insulin Branch injection or glucose testing; ICD-10 code E11.22 Alcohol 2020-0 Yes [id number] Use 1 pad U nivers Swabs 4-03 PRN to ity of (ALCOHOL 00:00: prep [place] PREP PADS) 00 for Medical PadM insulin Branch injection or glucose testing; ICD-10 code E11.22 Alcohol 2020-0 Yes [id number] Use 1 pad [facility] nivers Swabs 4-03 PRN to ity of (ALCOHOL 00:00: prep [place] PREP PADS) 00 for Medical PadM insulin Branch injection or glucose testing; ICD-10 code E11.22 Alcohol 2020-0 Yes [id number] Use 1 pad U nivers Swabs 4-03 PRN to ity of (ALCOHOL 00:00: prep [place] PREP PADS) 00 for Medical PadM insulin Branch injection or glucose testing; ICD-10 code E11.22 Alcohol 2020-0 Yes [id number] Use 1 pad U nivers Swabs 4-03 PRN to ity of (ALCOHOL 00:00: prep [place] PREP PADS) 00 for Medical PadM insulin Branch injection or glucose testing; ICD-10 code E11.22 Alcohol 2020-0 Yes [id number] Use 1 pad U nivers Swabs 4-03 PRN to ity of (ALCOHOL 00:00: prep [place] PREP PADS) 00 for Medical PadM insulin Branch injection or glucose testing; ICD-10 code E11.22 Alcohol 2020-0 Yes [id number] Use 1 pad U nivers Swabs 4-03 PRN to ity of (ALCOHOL 00:00: prep [place] PREP PADS) 00 for Medical PadM insulin Branch injection or glucose testing; ICD-10 code E11.22 Alcohol 2020-0 Yes [id number] Use 1 pad U nivers Swabs 4-03 PRN to ity of (ALCOHOL 00:00: prep [place] PREP PADS) 00 for Medical PadM insulin Branch injection or glucose testing; ICD-10 code E11.22 Alcohol 2020-0 Yes [id number] Use 1 pad U nivers Swabs 4-03 PRN to ity of (ALCOHOL 00:00: prep [place] PREP PADS) 00 for Medical PadM insulin Branch injection or glucose testing; ICD-10 code E11.22 Alcohol 2020-0 Yes [id number] Use 1 pad U nivers Swabs 4-03 PRN to ity of (ALCOHOL 00:00: prep [place] PREP PADS) 00 for Medical PadM insulin Branch injection or glucose testing; ICD-10 code E11.22 Alcohol 2020-0 Yes [id number] Use 1 pad U nivers Swabs 4-03 PRN to ity of (ALCOHOL 00:00: prep [place] PREP PADS) 00 for Medical PadM insulin Branch injection or glucose testing; ICD-10 code E11.22 Alcohol 2020-0 Yes [id number] Use 1 pad U nivers Swabs 4-03 PRN to ity of (ALCOHOL 00:00: prep [place] PREP PADS) 00 for Medical PadM insulin Branch injection or glucose testing; ICD-10 code E11.22 Alcohol 2020-0 Yes [id number] Use 1 pad U nivers Swabs 4-03 PRN to ity of (ALCOHOL 00:00: prep skin [place] PREP PADS) 00 for Medical PadM insulin Branch injection or glucose testing; ICD-10 code E11.22 traMADol 50 2019-0 Yes [id number] 50mg Take 1 [facility] mg tablet 9-26 tablet by ity o f 00:00: mouth [place] 00 every 6 Medical (six) Branch hours as needed for Pain (scale 7-10). traMADol 50 2019-0 Yes [id number] 50mg Take 1 [facility] mg tablet 9-26 tablet by ity o f 00:00: mouth [place] 00 every 6 Medical (six) Branch hours as needed for Pain (scale 7-10). traMADol 50 2019-0 Yes [id number] 50mg Take 1 [facility] mg tablet 9-26 tablet by ity o f 00:00: mouth [place] 00 every 6 Medical (six) Branch hours as needed for Pain (scale 7-10). traMADol 50 2019-0 Yes [id number] 50mg Take 1 [facility] mg tablet 9-26 tablet by ity o f 00:00: mouth [place] 00 every 6 Medical (six) Branch hours as needed for Pain (scale 7-10). traMADol 50 2019-0 Yes [id number] 50mg Take 1 [facility] mg tablet 9-26 tablet by ity o f 00:00: mouth [place] 00 every 6 Medical (six) Branch hours as needed for Pain (scale 7-10). traMADol 50 2019-0 Yes [id number] 50mg Take 1 [facility] mg tablet 9-26 tablet by ity o f 00:00: mouth [place] 00 every 6 Medical (six) Branch hours as needed for Pain (scale 7-10). traMADol 50 2019-0 Yes [id number] 50mg Take 1 [facility] mg tablet 9-26 tablet by ity o f 00:00: mouth [place] 00 every 6 Medical (six) Branch hours as needed for Pain (scale 7-10). traMADol 50 2019-0 Yes [id number] 50mg Take 1 [facility] mg tablet 9-26 tablet by ity o f 00:00: mouth [place] 00 every 6 Medical (six) Branch hours as needed for Pain (scale 7-10). traMADol 50 2019-0 Yes [id number] 50mg Take 1 [facility] mg tablet 9-26 tablet by ity o f 00:00: mouth [place] 00 every 6 Medical (six) Branch hours as needed for Pain (scale 7-10). traMADol 50 2019-0 Yes [id number] 50mg Take 1 [facility] mg tablet 9-26 tablet by ity o f 00:00: mouth [place] 00 every 6 Medical (six) Branch hours as needed for Pain (scale 7-10). traMADol 50 2019-0 Yes [id number] 50mg Take 1 [facility] mg tablet 9-26 tablet by ity o f 00:00: mouth [place] 00 every 6 Medical (six) Branch hours as needed for Pain (scale 7-10). traMADol 50 2019-0 Yes [id number] 50mg Take 1 [facility] mg tablet 9-26 tablet by ity o f 00:00: mouth [place] 00 every 6 Medical (six) Branch hours as needed for Pain (scale 7-10). traMADol 50 2019-0 Yes [id number] 50mg Take 1 [facility] mg tablet 9-26 tablet by ity o f 00:00: mouth [place] 00 every 6 Medical (six) Branch hours as needed for Pain (scale 7-10). traMADol 50 2019-0 Yes [id number] 50mg Take 1 [facility] mg tablet 9-26 tablet by ity o f 00:00: mouth [place] 00 every 6 Medical (six) Branch hours as needed for Pain (scale 7-10). traMADol 50 2019-0 Yes [id number] 50mg Take 1 [facility] mg tablet 9-26 tablet by ity o f 00:00: mouth [place] 00 every 6 Medical (six) Branch hours as needed for Pain (scale 7-10). traMADol 50 2019-0 Yes [id number] 50mg Take 1 [facility] mg tablet 9-26 tablet by ity o f 00:00: mouth [place] 00 every 6 Medical (six) Branch hours as needed for Pain (scale 7-10). traMADol 50 2019-0 Yes [id number] 50mg Take 1 [facility] mg tablet 9-26 tablet by ity o f 00:00: mouth [place] 00 every 6 Medical (six) Branch hours as needed for Pain (scale 7-10). traMADol 50 2019-0 Yes [id number] 50mg Take 1 [facility] mg tablet 9-26 tablet by ity o f 00:00: mouth [place] 00 every 6 Medical (six) Branch hours as needed for Pain (scale 7-10). traMADol 50 2019-0 Yes [id number] 50mg Take 1 [facility] mg tablet 9-26 tablet by ity o f 00:00: mouth [place] 00 every 6 Medical (six) Branch hours as needed for Pain (scale 7-10). traMADol 50 2019-0 Yes [id number] 50mg Take 1 [facility] mg tablet 9-26 tablet by ity o f 00:00: mouth [place] 00 every 6 Medical (six) Branch hours as needed for Pain (scale 7-10). traMADol 50 2019-0 Yes [id number] 50mg Take 1 [facility] mg tablet 9-26 tablet by ity o f 00:00: mouth [place] 00 every 6 Medical (six) Branch hours as needed for Pain (scale 7-10). traMADol 50 2019-0 Yes [id number] 50mg Take 1 [facility] mg tablet 9-26 tablet by ity o f 00:00: mouth [place] 00 every 6 Medical (six) Branch hours as needed for Pain (scale 7-10). traMADol 50 2019-0 Yes [id number] 50mg Take 1 [facility] mg tablet 9-26 tablet by ity o f 00:00: mouth [place] 00 every 6 Medical (six) Branch hours as needed for Pain (scale 7-10). traMADol 50 2019-0 Yes [id number] 50mg Take 1 [facility] mg tablet 9-26 tablet by ity o f 00:00: mouth [place] 00 every 6 Medical (six) Branch hours as needed for Pain (scale 7-10). traMADol 50 2019-0 Yes [id number] 50mg Take 1 [facility] mg tablet 9-26 tablet by ity o f 00:00: mouth [place] 00 every 6 Medical (six) Branch hours as needed for Pain (scale 7-10). traMADol 50 2019-0 Yes [id number] 50mg Take 1 [facility] mg tablet 9-26 tablet by ity o f 00:00: mouth [place] 00 every 6 Medical (six) Branch hours as needed for Pain (scale 7-10). traMADol 50 2019-0 Yes [id number] 50mg Take 1 [facility] mg tablet 9-26 tablet by ity o f 00:00: mouth [place] 00 every 6 Medical (six) Branch hours as needed for Pain (scale 7-10). traMADol 50 2019-0 Yes [id number] 50mg Take 1 [facility] mg tablet 9-26 tablet by ity o f 00:00: mouth [place] 00 every 6 Medical (six) Branch hours as needed for Pain (scale 7-10). traMADol 50 2019-0 Yes [id number] 50mg Take 1 [facility] mg tablet 9-26 tablet by ity o f 00:00: mouth [place] 00 every 6 Medical (six) Branch hours as needed for Pain (scale 7-10). traMADol 50 2019-0 Yes [id number] 50mg Take 1 [facility] mg tablet 9-26 tablet by ity o f 00:00: mouth [place] 00 every 6 Medical (six) Branch hours as needed for Pain (scale 7-10). traMADol 50 2019-0 Yes [id number] 50mg Take 1 [facility] mg tablet 9-26 tablet by ity o f 00:00: mouth [place] 00 every 6 Medical (six) Branch hours as needed for Pain (scale 7-10). traMADol 50 2019-0 Yes [id number] 50mg Take 1 [facility] mg tablet 9-26 tablet by ity o f 00:00: mouth [place] 00 every 6 Medical (six) Branch hours as needed for Pain (scale 7-10). traMADol 50 2019-0 Yes [id number] 50mg Take 1 [facility] mg tablet 9-26 tablet by ity o f 00:00: mouth [place] 00 every 6 Medical (six) Branch hours as needed for Pain (scale 7-10). traMADol 50 2019-0 Yes [id number] 50mg Take 1 [facility] mg tablet 9-26 tablet by ity o f 00:00: mouth [place] 00 every 6 Medical (six) Branch hours as needed for Pain (scale 7-10). traMADol 50 2019-0 Yes [id number] 50mg Take 1 [facility] mg tablet 9-26 tablet by ity o f 00:00: mouth [place] 00 every 6 Medical (six) Branch hours as needed for Pain (scale 7-10). traMADol 50 2019-0 Yes [id number] 50mg Take 1 [facility] mg tablet 9-26 tablet by ity o f 00:00: mouth [place] 00 every 6 Medical (six) Branch hours as needed for Pain (scale 7-10). traMADol 50 2019-0 Yes [id number] 50mg Take 1 [facility] mg tablet 9-26 tablet by ity o f 00:00: mouth [place] 00 every 6 Medical (six) Branch hours as needed for Pain (scale 7-10). traMADol 50 2019-0 Yes [id number] 50mg Take 1 [facility] mg tablet 9-26 tablet by ity o f 00:00: mouth [place] 00 every 6 Medical (six) Branch hours as needed for Pain (scale 7-10). traMADol 50 2019-0 Yes [id number] 50mg Take 1 [facility] mg tablet 9-26 tablet by ity o f 00:00: mouth [place] 00 every 6 Medical (six) Branch hours as needed for Pain (scale 7-10). traMADol 50 2019-0 Yes [id number] 50mg Take 1 [facility] mg tablet 9-26 tablet by ity o f 00:00: mouth [place] 00 every 6 Medical (six) Branch hours as needed for Pain (scale 7-10). traMADol 50 2019-0 Yes [id number] 50mg Take 1 [facility] mg tablet 9-26 tablet by ity o f 00:00: mouth [place] 00 every 6 Medical (six) Branch hours as needed for Pain (scale 7-10). traMADol 50 2019-0 Yes [id number] 50mg Take 1 [facility] mg tablet 9-26 tablet by ity o f 00:00: mouth [place] 00 every 6 Medical (six) Branch hours as needed for Pain (scale 7-10). traMADol 50 2019-0 Yes [id number] 50mg Take 1 [facility] mg tablet 9-26 tablet by ity o f 00:00: mouth [place] 00 every 6 Medical (six) Branch hours as needed for Pain (scale 7-10). traMADol 50 2019-0 Yes [id number] 50mg Take 1 [facility] mg tablet 9-26 [...] nightly. Med ical 17 Center aspirin 81 0 Yes 81mg QD Take 81 mg C [...] Yes Inject [facility] (HUMULIN 16:47: usly 3 Medical R,NOVOLIN 17 (three) Center R) 100 times unit/mL daily injection before meals Use as directed, sliding scale. . cholecalcif 0 Yes 5000U QD Take 5,[address] [facility] julito, 5-16 Units by [facility] vitamin D3, 16:47: mouth Medic al (VITAMIN 17 daily. Center D3) 5,000 unit Tab nitroglycer Yes .4mg Place 0.[address] in 5-16 mg under [facility] (NITROSTAT) 16:47: the tongue Medical 0.4 MG SL 17 every 5 Center tablet (five) minutes as needed for Chest pain Put 1 pill under tongue every 5min as needed for chest pain.No more than 3 doses in 15min.Call 911 if pain is unrelieved 5min after 1st dose . terazosin 2017- Yes 2mg QD Take [address] [facility] (HYTRIN) 2 5-16 by mouth [facility] MG capsule 16:47: nightly. Med ical 17 Center aspirin 81 2017- Yes 81mg QD Take 81 mg C [...] usly every Center morning before breakfast. insulin [address] [facility] regular 5-16 [facility] (HUMULIN 16:47: usly 3 Medical R,NOVOLIN 17 (three) Center R) 100 times unit/mL daily injection before meals Use as directed, sliding scale. . cholecalcif Yes 5000U QD Take 5,[address] [facility] [address] julito, 5-16 Units by [facility] vitamin D3, 16:47: mouth Medic al (VITAMIN 17 daily. Center D3) 5,000 unit Tab acetaminoph Yes 1{tbl} Take [address] en-codeine 5-16 tablet by [facility] (TYLENOL 00:00: mouth Medical #3) 300-30 00 every 6 Center mg per (six) tablet hours as needed for Pain. Max Daily Amount: 4 tablets metoprolol 2017-0 Yes 25mg Q.5D Take 1 [facility] (TOPROL-XL) 5-16 tablet (25 Sushma kes 25 MG 24 hr 00:00: mg total) M edical tablet 00 by mouth 2 Center (two) times daily. acetaminoph 2018-0 Yes 1{tbl} Take [address] en-codeine 5-16 tablet by Toribio pena (TYLENOL 00:00: mouth Medical #3) 300-30 00 every 6 Center mg per (six) tablet hours as needed for Pain. Max Daily Amount: 4 tablets metoprolol 2017-0 Yes 25mg Q.5D Take 1 [facility] (TOPROL-XL) 5-16 tablet (25 Sushma kes 25 MG 24 hr 00:00: mg total) M edical tablet 00 by mouth 2 Center (two) times daily. Immunizations Ordered Filled Immunization Date Status Comments [facility] e Immunization Name Name Pneumococcal 2021-07-09 Completed [...] rsity of MODERNA 12+ YRS 00:00:00 [place] [facility] ical VACCINE Branch SARS-COV-2 COVID-19 2020-08-16 Completed Unive rsity of MODERNA 12+ YRS 00:00:00 [place] [facility] ical VACCINE Branch SARS-COV-2 COVID-19 2020-08-16 Completed Unive rsity of MODERNA 12+ YRS 00:00:00 [place] [facility] ical VACCINE Branch SARS-COV-2 COVID-19 2020-08-16 Completed Unive rsity of MODERNA 12+ YRS 00:00:00 [place] [facility] ical VACCINE Branch SARS-COV-2 COVID-19 2020-08-16 Completed Unive rsity of MODERNA 12+ YRS 00:00:00 [place] [facility] ical VACCINE Branch SARS-COV-2 COVID-19 2020-08-16 Completed Unive rsity of MODERNA 12+ YRS 00:00:00 [place] [facility] ical VACCINE Branch SARS-COV-2 COVID-19 2020-08-16 Completed Unive rsity of MODERNA 12+ YRS 00:00:00 [place] [facility] ical VACCINE Branch SARS-COV-2 COVID-19 2020-08-16 Completed Unive rsity of MODERNA 12+ YRS 00:00:00 [facility] VACCINE Branch Influenza High Dose 2020-03-13 Completed Unive rsity of 00:00:00 [facility] Influenza High Dose 2020-03-13 Completed Unive rsity of 00:00:00 [facility] Influenza High Dose 2020-03-13 Completed Unive rsity of 00:00:00 [facility] Influenza High Dose 2020-03-13 Completed Unive rsity of 00:00:00 [facility] Influenza High Dose 2020-03-13 Completed Unive rsity of 00:00:00 [facility] Influenza High Dose 2020-03-13 Completed Unive rsity of 00:00:00 [facility] Influenza High Dose 2020-03-13 Completed Unive rsity of 00:00:00 [facility] Influenza High Dose 2020-03-13 Completed Unive rsity of 00:00:00 [facility] Influenza High Dose 2020-03-13 Completed Unive rsity of 00:00:00 [facility] Influenza High Dose 2020-03-13 Completed Unive rsity of 00:00:00 [facility] Influenza High Dose 2020-03-13 Completed Unive rsity of 00:00:00 [facility] Influenza High Dose 2020-03-13 Completed Unive rsity of 00:00:00 [facility] Influenza High Dose 2020-03-13 Completed Unive rsity of 00:00:00 [facility] Influenza High Dose 2020-03-13 Completed Unive rsity of 00:00:00 [facility] Influenza High Dose 2020-03-13 Completed Unive rsity of 00:00:00 [facility] Influenza High Dose 2020-03-13 Completed Unive rsity of 00:00:00 [facility] Influenza High Dose 2020-03-13 Completed Unive rsity of 00:00:00 [facility] Influenza High Dose 2020-03-13 Completed Unive rsity of 00:00:00 [facility] Influenza High Dose 2020-03-13 Completed Unive rsity of 00:00:00 [facility] Influenza High Dose 2020-03-13 Completed Unive rsity of 00:00:00 [facility] [place] Influ[place] High Dose 2020-03-13 Completed [facility] 00:00:00 [facility] [place] Influenza High Dose 2020-03-13 Completed [facility] 00:00:00 [facility] [place] Influenza High Dose 2020-03-13 Completed [facility] of 00:00:00 [facility] Influenza High Dose 2020-03-13 Completed [facility] of 00:00:00 [facility] [place] Influenza High Dose 2020-03-13 Completed [facility] 00:00:00 [facility] Influenza High Dose 2020-03-13 Completed [facility] of 00:00:00 [facility] Influenza High Dose 2020-03-13 Completed [facility] of 00:00:00 [facility] [place] Influenza High Dose 2020-03-13 Completed [facility] of 00:00:00 [facility] [place] Influenza High Dose 2020-03-13 Completed [facility] of 00:00:00 [facility] [place] Influenza High Dose 2020-03-13 Completed [facility] of 00:00:00 [facility] [place] Influenza High Dose 2020-03-13 Completed [facility] of 00:00:00 [facility] [place] Influenza High Dose 2020-03-13 Completed [facility] of 00:00:00 [facility] [place] Influenza High Dose 2020-03-13 Completed [facility] of 00:00:00 [facility] [place] Influenza High Dose 2020-03-13 Completed [facility] of 00:00:00 [facility] [place] Influenza High Dose 2020-03-13 Completed [facility] of 00:00:00 [facility] [place] Influenza High Dose 2020-03-13 Completed [facility] 00:00:00 [facility] [place] Influenza High Dose 2020-03-13 Completed [facility] 00:00:00 [facility] [place] Influenza High Dose 2020-03-13 Completed [facility] of 00:00:00 [facility] [place] Influenza High Dose 2020-03-13 Completed [facility] of 00:00:00 [facility] [place] Influenza High Dose 2020-03-13 Completed [facility] of 00:00:00 [facility] [place] Influenza High Dose 2020-03-13 Completed [facility] 00:00:00 [facility] Influenza High Dose 2020-03-13 Completed [facility] 00:00:00 [facility] [place] Influenza High Dose 2020-03-13 Completed [facility] 00:00:00 [facility] [place] Influenza High Dose 2020-03-13 Completed [facility] of 00:00:00 [facility] [place] Influenza High Dose 2019-03-16 Completed [facility] 00:00:00 [facility] [place] Influenza High Dose 2019-03-16 Completed [facility] of 00:00:00 [facility] Influenza High Dose 2019-03-16 Completed [facility] 00:00:00 [facility] Influenza High Dose 2019-03-16 Completed [facility] of 00:00:00 [facility] [place] Influenza High Dose 2019-03-16 Completed [facility] 00:00:00 [facility] Influenza High Dose 2019-03-16 Completed [facility] of 00:00:00 [facility] Influenza High Dose 2019-03-16 Completed [facility] 00:00:00 [facility] Influenza High Dose 2019-03-16 Completed [facility] 00:00:00 [facility] Influenza High Dose 2019-03-16 Completed [facility] 00:00:00 [facility] [place] Influenza High Dose 2019-03-16 Completed [facility] 00:00:00 [facility] Influenza High Dose 2019-03-16 Completed [facility] 00:00:00 [facility] Influenza High Dose 2019-03-16 Completed [facility] 00:00:00 [facility] Influenza High Dose 2019-03-16 Completed [facility] 00:00:00 [facility] Influenza High Dose 2019-03-16 Completed [facility] 00:00:00 [facility] Influenza High Dose 2019-03-16 Completed [facility] 00:00:00 [facility] Influenza High Dose 2019-03-16 Completed [facility] 00:00:00 [facility] Influenza High Dose 2019-03-16 Completed [facility] 00:00:00 [facility] Influenza High Dose 2019-03-16 Completed [facility] 00:00:00 [facility] Influenza High Dose 2019-03-16 Completed [facility] 00:00:00 [facility] Influenza High Dose 2019-03-16 Completed [facility] 00:00:00 [facility] Influenza High Dose 2019-03-16 Completed [facility] of 00:00:00 [facility] Influenza High Dose 2019-03-16 Completed [facility] 00:00:00 [facility] Influenza High Dose 2019-03-16 Completed [facility] 00:00:00 [facility] Influenza High Dose 2019-03-16 Completed [facility] 00:00:00 [facility] Influenza High Dose 2019-03-16 Completed [facility] 00:00:00 [facility] Influenza High Dose 2019-03-16 Completed [facility] 00:00:00 [facility] Influenza High Dose 2019-03-16 Completed [facility] 00:00:00 [facility] Influenza High Dose 2019-03-16 Completed [facility] 00:00:00 [facility] Influenza High Dose 2019-03-16 Completed [facility] 00:00:00 [facility] Influenza High Dose 2019-03-16 Completed [facility] 00:00:00 [facility] Influenza High Dose 2019-03-16 Completed [facility] 00:00:00 [facility] Influenza High Dose 2019-03-16 Completed [facility] 00:00:00 [facility] Influenza High Dose 2019-03-16 Completed [facility] 00:00:00 [facility] Influenza High Dose 2019-03-16 Completed [facility] 00:00:00 [facility] Influenza High Dose 2019-03-16 Completed [facility] 00:00:00 [facility] [place] Influenza High Dose 2019-03-16 Completed [facility] 00:00:00 [facility] Influenza High Dose 2019-03-16 Completed [facility] 00:00:00 [facility] Influenza High Dose 2019-03-16 Completed [facility] 00:00:00 [facility] Influenza High Dose 2019-03-16 Completed [facility] 00:00:00 [facility] Influenza High Dose 2019-03-16 Completed [facility] 00:00:00 [facility] Influenza High Dose 2019-03-16 Completed [facility] 00:00:00 [facility] Influenza High Dose 2019-03-16 Completed [facility] 00:00:00 [facility] Influenza High Dose 2019-03-16 Completed [facility] 00:00:00 [facility] Influenza High Dose 2019-03-16 Completed [facility] 00:00:00 [facility] Influenza Virus 2008-03-21 Completed [facility] Vaccine 00:00:00 [facility] Pneumococcal 2008-03-21 Completed [facility] Polysaccharide, 00:00:00 [place] [facility] PPSV23 (PNEUMOVAX) [place] Influenza Virus 2008-03-21 Completed [facility] Vaccine 00:00:00 [facility] Pneumococcal 2008-03-21 Completed [facility] o f Polysaccharide, 00:00:00 [place] [facility] PPSV23 (PNEUMOVAX) [facility] Influenza Virus 2008-03-21 Completed [facility] Vaccine 00:00:00 [facility] Pneumococcal 2008-03-21 Completed [facility] o f Polysaccharide, 00:00:00 [place] [facility] PPSV23 (PNEUMOVAX) [facility] Influenza Virus 2008-03-21 Completed [facility] Vaccine 00:00:00 [facility] Pneumococcal 2008-03-21 Completed [facility] o f Polysaccharide, 00:00:00 [place] [facility] PPSV23 (PNEUMOVAX) [facility] Influenza Virus 2008-03-21 Completed [facility] Vaccine 00:00:00 [facility] Pneumococcal 2008-03-21 Completed [facility] o f Polysaccharide, 00:00:00 [place] [facility] PPSV23 (PNEUMOVAX) [facility] Influenza Virus 2008-03-21 Completed [facility] Vaccine 00:00:00 [facility] Pneumococcal 2008-03-21 Completed [facility] o f Polysaccharide, 00:00:00 [place] [facility] PPSV23 (PNEUMOVAX) [facility] Influenza Virus 2008-03-21 Completed [facility] Vaccine 00:00:00 [facility] Pneumococcal 2008-03-21 Completed [facility] o f Polysaccharide, 00:00:00 [place] [facility] PPSV23 (PNEUMOVAX) [facility] Influenza Virus 2008-03-21 Completed [facility] Vaccine 00:00:00 [facility] Pneumococcal 2008-03-21 Completed [facility] o f Polysaccharide, 00:00:00 [place] [facility] PPSV23 (PNEUMOVAX) [facility] Influenza Virus 2008-03-21 Completed [facility] Vaccine 00:00:00 [facility] Pneumococcal 2008-03-21 Completed [facility] o f Polysaccharide, 00:00:00 [place] [facility] PPSV23 (PNEUMOVAX) [facility] Influenza Virus 2008-03-21 Completed [facility] Vaccine 00:00:00 [facility] Pneumococcal 2008-03-21 Completed [facility] o f Polysaccharide, 00:00:00 [place] [facility] PPSV23 (PNEUMOVAX) [facility] Influenza Virus 2008-03-21 Completed [facility] Vaccine 00:00:00 [facility] Pneumococcal 2008-03-21 Completed [facility] o f Polysaccharide, 00:00:00 [place] [facility] PPSV23 (PNEUMOVAX) [facility] Influenza Virus 2008-03-21 Completed [facility] Vaccine 00:00:00 [facility] Pneumococcal 2008-03-21 Completed [facility] o f Polysaccharide, 00:00:00 [place] [facility] PPSV23 (PNEUMOVAX) [facility] Influenza Virus 2008-03-21 Completed [facility] Vaccine 00:00:00 [facility] Pneumococcal 2008-03-21 Completed [facility] o f Polysaccharide, 00:00:00 [place] [facility] PPSV23 (PNEUMOVAX) [facility] Influenza Virus 2008-03-21 Completed [facility] Vaccine 00:00:00 [facility] Pneumococcal 2008-03-21 Completed [facility] o f Polysaccharide, 00:00:00 [place] [facility] PPSV23 (PNEUMOVAX) [facility] Influenza Virus 2008-03-21 Completed [facility] Vaccine 00:00:00 [facility] Pneumococcal 2008-03-21 Completed [facility] o f Polysaccharide, 00:00:00 [place] [facility] PPSV23 (PNEUMOVAX) [facility] Influenza Virus 2008-03-21 Completed [facility] Vaccine 00:00:00 [facility] Pneumococcal 2008-03-21 Completed [facility] o f Polysaccharide, 00:00:00 [place] [facility] PPSV23 (PNEUMOVAX) [facility] Influenza Virus 2008-03-21 Completed [facility] Vaccine 00:00:00 [facility] Pneumococcal 2008-03-21 Completed [facility] o f Polysaccharide, 00:00:00 [place] [facility] PPSV23 (PNEUMOVAX) [facility] Influenza Virus 2008-03-21 Completed [facility] Vaccine 00:00:00 [facility] Pneumococcal 2008-03-21 Completed [facility] o f Polysaccharide, 00:00:00 [place] [facility] PPSV23 (PNEUMOVAX) [facility] Influenza Virus 2008-03-21 Completed [facility] Vaccine 00:00:00 [facility] Pneumococcal 2008-03-21 Completed [facility] o f Polysaccharide, 00:00:00 [place] [facility] PPSV23 (PNEUMOVAX) [facility] Influenza Virus 2008-03-21 Completed [facility] Vaccine 00:00:00 [facility] Pneumococcal 2008-03-21 Completed [facility] o f Polysaccharide, 00:00:00 [place] [facility] PPSV23 (PNEUMOVAX) [facility] Influenza Virus 2008-03-21 Completed [facility] Vaccine 00:00:00 [facility] Pneumococcal 2008-03-21 Completed [facility] o f Polysaccharide, 00:00:00 [place] [facility] PPSV23 (PNEUMOVAX) [facility] Influenza Virus 2008-03-21 Completed [facility] Vaccine 00:00:00 [facility] Pneumococcal 2008-03-21 Completed [facility] o f Polysaccharide, 00:00:00 [place] [facility] PPSV23 (PNEUMOVAX) [facility] Influenza Virus 2008-03-21 Completed [facility] Vaccine 00:00:00 [facility] Pneumococcal 2008-03-21 Completed [facility] o f Polysaccharide, 00:00:00 [place] [facility] PPSV23 (PNEUMOVAX) [facility] Influenza Virus 2008-03-21 Completed [facility] Vaccine 00:00:00 [facility] Pneumococcal 2008-03-21 Completed [facility] o f Polysaccharide, 00:00:00 [place] [facility] PPSV23 (PNEUMOVAX) [facility] Influenza Virus 2008-03-21 Completed [facility] Vaccine 00:00:00 [facility] Pneumococcal 2008-03-21 Completed [facility] o f Polysaccharide, 00:00:00 [place] [facility] PPSV23 (PNEUMOVAX) [facility] Influenza Virus 2008-03-21 Completed [facility] Vaccine 00:00:00 [facility] Pneumococcal 2008-03-21 Completed [facility] o f Polysaccharide, 00:00:00 [place] [facility] PPSV23 (PNEUMOVAX) [facility] Influenza Virus 2008-03-21 Completed [facility] Vaccine 00:00:00 [facility] Pneumococcal 2008-03-21 Completed [facility] o f Polysaccharide, 00:00:00 [place] [facility] PPSV23 (PNEUMOVAX) [facility] Influenza Virus 2008-03-21 Completed [facility] Vaccine 00:00:00 [facility] Pneumococcal 2008-03-21 Completed [facility] o f Polysaccharide, 00:00:00 [place] [facility] PPSV23 (PNEUMOVAX) [facility] Influenza Virus 2008-03-21 Completed [facility] Vaccine 00:00:00 [facility] Pneumococcal 2008-03-21 Completed [facility] o f Polysaccharide, 00:00:00 [place] [facility] PPSV23 (PNEUMOVAX) [facility] Influenza Virus 2008-03-21 Completed [facility] Vaccine 00:00:00 [facility] Pneumococcal 2008-03-21 Completed [facility] o f Polysaccharide, 00:00:00 [place] [facility] PPSV23 (PNEUMOVAX) [facility] Influenza Virus 2008-03-21 Completed [facility] Vaccine 00:00:00 [facility] Pneumococcal 2008-03-21 Completed [facility] o f Polysaccharide, 00:00:00 [place] [facility] PPSV23 (PNEUMOVAX) [facility] Influenza Virus 2008-03-21 Completed [facility] Vaccine 00:00:00 [facility] Pneumococcal 2008-03-21 Completed [facility] o f Polysaccharide, 00:00:00 [place] [facility] PPSV23 (PNEUMOVAX) [facility] Influenza Virus 2008-03-21 Completed [facility] Vaccine 00:00:00 [facility] Pneumococcal 2008-03-21 Completed [facility] o f Polysaccharide, 00:00:00 [place] [facility] PPSV23 (PNEUMOVAX) [facility] Influenza Virus 2008-03-21 Completed [facility] Vaccine 00:00:00 [facility] Pneumococcal 2008-03-21 Completed [facility] o f Polysaccharide, 00:00:00 [place] [facility] PPSV23 (PNEUMOVAX) [facility] Influenza Virus 2008-03-21 Completed [facility] Vaccine 00:00:00 [facility] Pneumococcal 2008-03-21 Completed [facility] o f Polysaccharide, 00:00:00 [place] [facility] PPSV23 (PNEUMOVAX) [facility] Influenza Virus 2008-03-21 Completed [facility] Vaccine 00:00:00 [facility] Pneumococcal 2008-03-21 Completed [facility] o f Polysaccharide, 00:00:00 [place] [facility] PPSV23 (PNEUMOVAX) [facility] Influenza Virus 2008-03-21 Completed [facility] Vaccine 00:00:00 [facility] Pneumococcal 2008-03-21 Completed [facility] o f Polysaccharide, 00:00:00 [place] [facility] PPSV23 (PNEUMOVAX) [facility] Influenza Virus 2008-03-21 Completed [facility] Vaccine 00:00:00 [facility] Pneumococcal 2008-03-21 Completed [facility] o f Polysaccharide, 00:00:00 [place] [facility] PPSV23 (PNEUMOVAX) [facility] Influenza Virus 2008-03-21 Completed [facility] Vaccine 00:00:00 [facility] Pneumococcal 2008-03-21 Completed [facility] o f Polysaccharide, 00:00:00 [place] [facility] PPSV23 (PNEUMOVAX) [facility] Influenza Virus 2008-03-21 Completed [facility] Vaccine 00:00:00 [facility] Pneumococcal 2008-03-21 Completed [facility] o f Polysaccharide, 00:00:00 [place] [facility] PPSV23 (PNEUMOVAX) [facility] Influenza Virus 2008-03-21 Completed [facility] Vaccine 00:00:00 [facility] Pneumococcal 2008-03-21 Completed [facility] o f Polysaccharide, 00:00:00 [place] [facility] PPSV23 (PNEUMOVAX) [facility] Influenza Virus 2008-03-21 Completed [facility] Vaccine 00:00:00 [facility] Pneumococcal 2008-03-21 Completed [facility] o f Polysaccharide, 00:00:00 [place] [facility] PPSV23 (PNEUMOVAX) [facility] Influenza Virus 2008-03-21 Completed [facility] Vaccine 00:00:00 [facility] Pneumococcal 2008-03-21 Completed [facility] o f Polysaccharide, 00:00:00 [place] [facility] PPSV23 (PNEUMOVAX) [facility] Influenza Virus 2008-03-21 Completed [facility] Vaccine 00:00:00 [facility] Pneumococcal 2008-03-21 Completed [facility] o f Polysaccharide, 00:00:00 [facility] PPSV23 (PNEUMOVAX) [place] Influenza Virus 2007-04-07 Completed [facility] Vaccine 00:00:00 [facility] Influenza Virus 2007-04-07 Completed [facility] of Vaccine 00:00:00 [facility] Influenza Virus 2007-04-07 Completed [facility] of Vaccine 00:00:00 [facility] Influenza Virus 2007-04-07 Completed [facility] Vaccine 00:00:00 [facility] Influenza Virus 2007-04-07 Completed [facility] of Vaccine 00:00:00 [facility] Influenza Virus 2007-04-07 Completed [facility] of Vaccine 00:00:00 [facility] Influenza Virus 2007-04-07 Completed [facility] of Vaccine 00:00:00 [facility] Influenza Virus 2007-04-07 Completed [facility] of Vaccine 00:00:00 [facility] Influenza Virus 2007-04-07 Completed [facility] Vaccine 00:00:00 [facility] Influenza Virus 2007-04-07 Completed [facility] of Vaccine 00:00:00 [facility] Influenza Virus 2007-04-07 Completed [facility] of Vaccine 00:00:00 [facility] Influenza Virus 2007-04-07 Completed [facility] of Vaccine 00:00:00 [facility] Influenza Virus 2007-04-07 Completed [facility] of Vaccine 00:00:00 [facility] Influenza Virus 2007-04-07 Completed [facility] of Vaccine 00:00:00 [facility] Influenza Virus 2007-04-07 Completed [facility] Vaccine 00:00:00 [facility] Influenza Virus 2007-04-07 Completed [facility] Vaccine 00:00:00 [facility] Influenza Virus 2007-04-07 Completed [facility] of Vaccine 00:00:00 [facility] Influenza Virus 2007-04-07 Completed [facility] of Vaccine 00:00:00 [facility] Influenza Virus 2007-04-07 Completed [facility] of Vaccine 00:00:00 [facility] Influenza Virus 2007-04-07 Completed [facility] of Vaccine 00:00:00 [facility] Influenza Virus 2007-04-07 Completed [facility] Vaccine 00:00:00 [facility] Influenza Virus 2007-04-07 Completed [facility] of Vaccine 00:00:00 [facility] Influenza Virus 2007-04-07 Completed [facility] of Vaccine 00:00:00 [facility] Influenza Virus 2007-04-07 Completed [facility] of Vaccine 00:00:00 [facility] Influenza Virus 2007-04-07 Completed [facility] of Vaccine 00:00:00 [facility] Influenza Virus 2007-04-07 Completed [facility] of Vaccine 00:00:00 [facility] Influenza Virus 2007-04-07 Completed [facility] of Vaccine 00:00:00 [facility] Influenza Virus 2007-04-07 Completed [facility] of Vaccine 00:00:00 [facility] Influenza Virus 2007-04-07 Completed [facility] of Vaccine 00:00:00 [facility] Influenza Virus 2007-04-07 Completed [facility] of Vaccine 00:00:00 [facility] Influenza Virus 2007-04-07 Completed [facility] of Vaccine 00:00:00 [facility] Influenza Virus 2007-04-07 Completed [facility] Vaccine 00:00:00 [facility] Influenza Virus 2007-04-07 Completed [facility] of Vaccine 00:00:00 [facility] Influenza Virus 2007-04-07 Completed [facility] of Vaccine 00:00:00 [facility] Influenza Virus 2007-04-07 Completed [facility] of Vaccine 00:00:00 [facility] Influenza Virus 2007-04-07 Completed [facility] of Vaccine 00:00:00 [facility] Influenza Virus 2007-04-07 Completed [facility] of Vaccine 00:00:00 [facility] Influenza Virus 2007-04-07 Completed [facility] of Vaccine 00:00:00 [facility] Influenza Virus 2007-04-07 Completed [facility] of Vaccine 00:00:00 [facility] Influenza Virus 2007-04-07 Completed [facility] of Vaccine 00:00:00 [facility] Influenza Virus 2007-04-07 Completed [facility] of Vaccine 00:00:00 [facility] Influenza Virus 2007-04-07 Completed [facility] Vaccine 00:00:00 [facility] Influenza Virus 2007-04-07 Completed [facility] Vaccine 00:00:00 [facility] Influenza Virus 2007-04-07 Completed [facility] Vaccine 00:00:00 [facility] Vital Signs Vital Name Observation Time Observation Value Comments Source Systolic blood 2022-05-27 21:17:00 119 mm[Hg] [facility] [place] [facility] Diastolic blood 2022-05-27 21:17:00 67 mm[Hg] [facility] of pressure [facility] Heart rate 2022-05-27 21:17:00 61 /min [facility] [place] [facility] Body height 2022-05-27 21:17:00 170.2 cm [facility] Body weight 2022-05-27 21:17:00 68.992 kg [facility] BMI 2022-05-27 21:17:00 23.82 kg/m2 [facility] Oxygen saturation in 2022-05-27 21:17:00 97 /min [facility] P[facility]xim[facility] Systolic blood 2022-05-23 20:31:00 128 mm[Hg] [facility] Diastolic blood 2022-05-23 20:31:00 65 mm[Hg] [facility] Heart rate 2022-05-23 20:31:00 60 /min [facility] Body height 2022-05-23 20:31:00 170.2 cm [facility] Body weight 2022-05-23 20:31:00 65.772 kg [facility] BMI 2022-05-23 20:31:00 22.71 kg/m2 [facility] Oxygen saturation in 2022-05-23 20:31:00 98 /min [facility] [place] [facility] Pulse oxim[facility] Systolic blood 2022-05-04 02:34:00 137 mm[Hg] [facility] Diastolic blood 2022-05-04 02:34:00 57 mm[Hg] [facility] Heart rate 2022-05-04 02:34:00 64 /min [facility] Body temperature 2022-05-04 02:34:00 36.33 Chasidy [facility] Respiratory rate 2022-05-04 02:34:00 18 /min [facility] Oxygen saturation in 2022-05-04 02:34:00 97 /min [facility] Body weight 2022-05-03 19:43:00 66 kg [facility] BMI 2022-05-03 19:43:00 22.79 kg/m2 [facility] Body height 2022-04-04 23:05:00 170.2 cm [facility] Systolic blood 2022-04-17 13:15:00 146 mm[Hg] [facility] Diastolic blood 2022-04-17 13:15:00 65 mm[Hg] [facility] Heart rate 2022-04-17 13:15:00 63 /min [facility] Body temperature 2022-04-17 13:15:00 36.72 Chasidy [facility] Respiratory rate 2022-04-17 13:15:00 20 /min [facility] Oxygen saturation in 2022-04-17 13:15:00 99 /min [facility]ter[facility] blood by [facility] Pulse oximetry [facility] Body weight 2022-04-17 11:21:00 71.714 kg [facility] BMI 2022-04-17 11:21:00 24.17 kg/m2 [facility] Body height 2022-04-04 23:05:00 170.2 cm [facility] Systolic blood 2022-04-10 16:45:00 151 mm[Hg] [facility] Diastolic blood 2022-04-10 16:45:00 56 mm[Hg] [facility] Heart rate 2022-04-10 16:45:00 58 /min [facility] Body temperature 2022-04-10 16:45:00 36.39 Chasidy [facility] Respiratory rate 2022-04-10 16:45:00 18 /min [facility] Body weight 2022-04-10 16:45:00 69.5 kg [facility] BMI 2022-04-10 16:45:00 25.90 kg/m2 [facility] Oxygen saturation in 2022-04-10 12:51:00 99 /min [facility] blood by [facility] Pulse oximetry Branch Body height 2022-04-04 23:05:00 170.2 cm [facility] Systolic blood 2022-04-08 16:15:00 157 mm[Hg] [facility] Diastolic blood 2022-04-08 16:15:00 72 mm[Hg] [facility] Heart rate 2022-04-08 16:15:00 53 /min [facility] Respiratory rate 2022-04-08 15:40:00 15 /min [facility] Oxygen saturation in 2022-04-08 15:40:00 99 /min [facility] [place] [facility] Pulse [facility]xim[facility] Body temperature 2022-04-08 15:21:00 36 Chasidy [facility] Body weight 2022-04-06 10:00:00 70.398 kg [facility] BMI 2022-04-06 10:00:00 23.82 kg/m2 [facility] Body height 2022-04-04 23:05:00 170.2 cm [facility] Systolic blood 2022-03-30 01:00:00 123 mm[Hg] [facility] Diastolic blood 2022-03-30 01:00:00 65 mm[Hg] [facility] Heart rate 2022-03-30 01:00:00 98 /min [facility] Respiratory rate 2022-03-30 01:00:00 19 /min [facility] Oxygen saturation in 2022-03-30 01:00:00 98 /min [facility] Arterial blood by [facility] tom Pulse oximetry Branch Body temperature 2022-03-29 21:01:00 36.83 Chasidy [facility] Body height 2022-03-29 21:01:00 170.2 cm [facility] Body weight 2022-03-29 21:01:00 73 kg [facility] BMI 2022-03-29 21:01:00 25.21 kg/m2 [facility] Systolic blood 2022-03-26 19:44:00 123 mm[Hg] [facility] Diastolic blood 2022-03-26 19:44:00 60 mm[Hg] [facility] Heart rate 2022-03-26 19:44:00 60 /min [facility] Body height 2022-03-26 19:44:00 170.2 cm [facility] Body weight 2022-03-26 19:44:00 77.111 kg [facility] BMI 2022-03-26 19:44:00 26.63 kg/m2 [facility] Oxygen saturation in 2022-03-26 19:44:00 98 /min [facility] Arterial blood by [facility] Pulse oximetry Branch Systolic blood 2022-01-31 20:07:00 134 mm[Hg] [facility] Diastolic blood 2022-01-31 20:07:00 64 mm[Hg] [facility] [place] Heart rate 2022-01-31 20:07:00 57 /min [facility] Respiratory rate 2022-01-31 20:07:00 21 /min [facility] Body height 2022-01-31 20:07:00 170.2 cm [facility] Body weight 2022-01-31 20:07:00 77.747 kg [facility] BMI 2022-01-31 20:07:00 26.85 kg/m2 [facility] Oxygen saturation in 2022-01-31 20:07:00 99 /min [facility] Arterial blood by [facility] Pulse oximetry Branch Procedures Procedure Date / Time Performing Clinician Source Performed PHYSICIAN ORDERS 2022-05-27 06:01:00 Doctor Unassigned, [facility] [place] [facility] POCT GLUCOSE (AUTOMATED) 2022-05-04 02:41:00 [facility] GLUCOSE (AUTOMATED) 2022-05-03 22:25:00 [facility] POCT GLUCOSE (AUTOMATED) 2022-05-03 20:26:00 Delfino Granado [facility] POCT GLUCOSE (AUTOMATED) 2022-05-03 03:10:00 Delfino Granado [facility] POCT GLUCOSE (AUTOMATED) 2022-05-02 17:33:00 Delfino Granado [facility] POCT GLUCOSE (AUTOMATED) 2022-05-02 14:27:00 Delfino Granado [facility] POCT GLUCOSE (AUTOMATED) 2022-05-02 02:06:00 Delfino Granado [facility] POCT GLUCOSE (AUTOMATED) 2022-05-01 23:36:00 Delfino Granado [facility] POCT GLUCOSE (AUTOMATED) 2022-05-01 19:30:00 Delfino Granado [facility] PHOSPHORUS 2022-05-01 10:29:00 [facility] 2022-05-01 10:29:00 [facility] BASIC METABOLIC PANEL 2022-05-01 10:29:00 Mendez Molina [facility] (NA, K, CL, CO2, GLUCOSE, Medica l Branch BUN, CREATININE, CA) CBC WITHOUT DIFF 2022-05-01 10:29:00 Mendez Molina [facility] POCT GLUCOSE (AUTOMATED) 2022-05-01 01:08:00 Delfino Granado [facility] POCT GLUCOSE (AUTOMATED) 2022-04-30 21:03:00 Delfino Granado [facility] POCT GLUCOSE (AUTOMATED) 2022-04-30 17:41:00 Delfino Granado [facility] POCT GLUCOSE (AUTOMATED) 2022-04-30 13:48:00 Delfino Granado [facility] POCT GLUCOSE (AUTOMATED) 2022-04-30 01:28:00 Delfino Granado [facility] POCT GLUCOSE (AUTOMATED) 2022-04-29 20:30:00 Delfino Granado [facility] POCT GLUCOSE (AUTOMATED) 2022-04-29 13:51:00 Delfino Granado [facility] POCT GLUCOSE (AUTOMATED) 2022-04-29 02:28:00 Delfino Granado [facility] POCT GLUCOSE (AUTOMATED) 2022-04-28 21:29:00 Delfino Granado [facility] POCT GLUCOSE (AUTOMATED) 2022-04-28 17:27:00 Delfino Granado [facility] POCT GLUCOSE (AUTOMATED) 2022-04-28 13:55:00 Vannesa Delfino [facility] POCT GLUCOSE (AUTOMATED) 2022-04-28 03:33:00 Vannesa Delfino [facility] POCT GLUCOSE (AUTOMATED) 2022-04-27 23:20:00 Vannesa Delfino [facility] POCT GLUCOSE (AUTOMATED) 2022-04-27 23:01:00 Vannesa Delfino [facility] POCT GLUCOSE (AUTOMATED) 2022-04-27 18:05:00 Vannesa Delfino [facility] POCT GLUCOSE (AUTOMATED) 2022-04-27 13:21:00 Delfino Granado [facility] POCT GLUCOSE (AUTOMATED) 2022-04-27 02:00:00 Vannesa Delfino [facility] POCT GLUCOSE (AUTOMATED) 2022-04-26 23:12:00 Vannesa Delfino [facility] POCT GLUCOSE (AUTOMATED) 2022-04-26 20:30:00 Vannesa Delfino [facility] POCT GLUCOSE (AUTOMATED) 2022-04-26 15:26:00 Vannesa Delfino [facility] POCT GLUCOSE (AUTOMATED) 2022-04-26 01:51:00 Vannesa Delfino [facility] POCT GLUCOSE (AUTOMATED) 2022-04-25 22:34:00 Vannesa Delfino [facility] POCT GLUCOSE (AUTOMATED) 2022-04-25 18:10:00 Vannesa, Delfino [facility] POCT GLUCOSE (AUTOMATED) 2022-04-25 14:09:00 Delfino Granado [facility] POCT GLUCOSE (AUTOMATED) 2022-04-25 04:00:00 Delfino Granado [facility] POCT GLUCOSE (AUTOMATED) 2022-04-25 02:44:00 Delfino Granado [facility] POCT GLUCOSE (AUTOMATED) 2022-04-25 02:06:00 VannesaDelfino ho [facility] POCT GLUCOSE (AUTOMATED) 2022-04-24 22:22:00 Delfino Granado [facility] POCT GLUCOSE (AUTOMATED) 2022-04-24 19:06:00 Vannesa, Delfino Elham [facility] POST DIALYSIS BUN 2022-04-24 18:08:00 Antonia Langley [facility] POCT GLUCOSE (AUTOMATED) 2022-04-24 18:06:00 Vannesa Delfino [facility] POCT GLUCOSE (AUTOMATED) 2022-04-24 15:27:00 Delfino Granado [facility] POCT GLUCOSE (AUTOMATED) 2022-04-24 01:28:00 Delfino Granado [facility] POCT GLUCOSE (AUTOMATED) 2022-04-23 22:16:00 Delfino Granado [facility] POCT GLUCOSE (AUTOMATED) 2022-04-23 18:05:00 Vannesa, Delfino Lizarraga [facility] POCT GLUCOSE (AUTOMATED) 2022-04-23 14:19:00 [facility] PHOSPHORUS 2022-04-23 06:49:[address] [facility] MAGNESIUM 2022-04-23 06:49:[address] [facility] BASIC METABOLIC PANEL 2022-04-23 06:49:00 Brandan Norman [facility] (NA, K, CL, CO2, GLUCOSE, Deangelo Medica [facility] Branch BUN, CREATININE, CA) CBC WITH DIFF 2022-04-23 06:49:00 Ester [facility] POCT GLUCOSE (AUTOMATED) 2022-04-23 03:22:00 VannesaDelfino [facility] POCT GLUCOSE (AUTOMATED) 2022-04-22 17:29:00 Vannesa, Eric Elham [facility] POCT GLUCOSE (AUTOMATED) 2022-04-22 15:02:00 Eden Delfino [facility] POCT GLUCOSE (AUTOMATED) 2022-04-22 13:36:00 Eden Delfino [facility] DME/SUPPLY JUSTIFICATION 2022-04-22 06:01:00 Doctor Unassosvaldo, [facility] [place] [facility] POCT GLUCOSE (AUTOMATED) 2022-04-22 02:45:00 Eden Delfino [facility] POCT GLUCOSE (AUTOMATED) 2022-04-21 23:28:00 Eden Delfino [facility] POCT GLUCOSE (AUTOMATED) 2022-04-21 18:12:00 Eden Delfino [facility] POCT GLUCOSE (AUTOMATED) 2022-04-21 15:09:00 Eden Delfino [facility] CBC WITHOUT DIFF 2022-04-21 12:10:00 Ismael Martínez [facility] BASIC METABOLIC PANEL 2022-04-21 12:09:00 Ismael Martínez [facility] (NA, K, CL, CO2, GLUCOSE, Medica l Branch BUN, CREATININE, CA) POCT GLUCOSE (AUTOMATED) 2022-04-21 01:35:00 Vannesa, Eric [facility] POCT GLUCOSE (AUTOMATED) 2022-04-20 21:14:00 Eden Delfino [facility] POCT GLUCOSE (AUTOMATED) 2022-04-20 16:47:00 Eden Delfino [facility] POCT GLUCOSE (AUTOMATED) 2022-04-20 14:18:00 Eden Delfino [facility] PHOSPHORUS 2022-04-20 09:34:00 Ismael Martínez [facility] MAGNESIUM 2022-04-20 09:34:00 Mauricio [facility] BASIC METABOLIC PANEL 2022-04-20 09:34:00 Ismael Martínez [facility] (NA, K, CL, CO2, GLUCOSE, Medica l Branch BUN, CREATININE, CA) CBC WITHOUT DIFF 2022-04-20 09:34:00 Ismael Martínez [facility] POCT GLUCOSE (AUTOMATED) 2022-04-20 01:30:00 Delfino Granado U [facility] POCT GLUCOSE (AUTOMATED) 2022-04-19 22:32:00 Vannesa, Eric [facility] CBC WITHOUT DIFF 2022-04-19 22:01:00 Mendez Molina [facility] POCT GLUCOSE (AUTOMATED) 2022-04-19 16:45:00 Delfino Granado [facility] PREPARE PACKED RBC 2022-04-19 16:38:13 Mendez Molina [facility] POCT GLUCOSE (AUTOMATED) 2022-04-19 13:08:00 Delfino Granado [facility] HB ABO GROUPING 2022-04-19 12:58:00 [facility] BASIC METABOLIC PANEL 2022-04-19 08:47:00 Ismael Martínez [facility] (NA, K, CL, CO2, GLUCOSE, Medica l Branch BUN, CREATININE, CA) CBC WITHOUT DIFF 2022-04-19 08:47:00 Ismael Martínez [facility] POCT GLUCOSE (AUTOMATED) 2022-04-19 02:37:00 Delfino Granado [facility] POCT GLUCOSE (AUTOMATED) 2022-04-18 20:43:00 Delfino Granado U [facility] POCT GLUCOSE (AUTOMATED) 2022-04-18 18:31:00 Delfino Granado [facility] POCT GLUCOSE (AUTOMATED) 2022-04-18 18:31:00 Delfino Granado [facility] POCT GLUCOSE (AUTOMATED) 2022-04-18 01:41:00 Delfino Granado [facility] POCT GLUCOSE (AUTOMATED) 2022-04-18 01:41:00 Delfino Granado [facility] POCT GLUCOSE (AUTOMATED) 2022-04-17 21:23:00 Delfino Granado [facility] POCT GLUCOSE (AUTOMATED) 2022-04-17 21:23:00 Delfino Granado [facility] CBC WITHOUT DIFF 2022-04-17 19:[facility]22-04-17 19:49:00 Blanca [facility] SURGICAL PATHOLOGY EXAM 2022-04-17 17:42:00 Delfino Granado [facility] BELOW THE KNEE AMPUTATION 2022-04-17 16:01:00 Vannesa Ad[facility] BELOW THE KNEE AMPUTATION 2022-04-17 16:01:00 Vannesa Adena [facility] POCT GLUCOSE (AUTOMATED) 2022-04-17 13:16:00 Delfino Granado [facility] POCT GLUCOSE (AUTOMATED) 2022-04-17 13:16:00 Delfino Granado [facility] PHOSPHORUS 2022-04-17 08:43:00 Ismael Martínez [facility] MAGNESIUM 2022-04-17 08:43:00 Mauricio [facility] BASIC METABOLIC PANEL 2022-04-17 08:43:00 Mauricio Ismael [facility] (NA, K, CL, CO2, GLUCOSE, Medica l Branch BUN, CREATININE, CA) CBC WITHOUT DIFF 2022-04-17 08:43:00 Mauricio Ismael [facility] PHOSPHORUS 2022-04-17 08:43:00 [facility] 2022-04-17 08:43:00 Mauricio [facility] BASIC METABOLIC PANEL 2022-04-17 08:43:00 Ismael Martínez [facility] (NA, K, CL, CO2, GLUCOSE, Medica l Branch BUN, CREATININE, CA) CBC WITHOUT DIFF 2022-04-17 08:43:00 Mauricio [facility] COVID-19 (ID NOW RAPID 2022-04-17 08:36:00 Ismael Martínez [facility] TESTING) Medical Branch LAB ONLY COVID 2022-04-17 08:36:00 Mauricio [facility] COVID-19 (ID NOW RAPID 2022-04-17 08:36:00 Mauricio [facility] TESTING) Medical Branch LAB ONLY COVID 2022-04-17 08:36:00 Mauricio [facility] POCT GLUCOSE (AUTOMATED) 2022-04-17 02:44:00 Delfino Granado [facility] POCT GLUCOSE (AUTOMATED) 2022-04-17 02:44:00 Delfino Granado [facility] ACTIVATED PARTIAL 2022-04-17 01:36:00 Sushma [facility] ACTIVATED PARTIAL 2022-04-17 01:36:00 Sushma [facility] POCT GLUCOSE (AUTOMATED) 2022-04-17 00:24:00 Delfino Granado [facility] POCT GLUCOSE (AUTOMATED) 2022-04-17 00:24:00 Delfino Granado [facility] ACTIVATED PARTIAL 2022-04-16 17:59:00 Sushma [facility] ACTIVATED PARTIAL 2022-04-16 17:59:00 Sushma [facility] POCT GLUCOSE (AUTOMATED) 2022-04-16 17:58:00 Delfino Granado [facility] POCT GLUCOSE (AUTOMATED) 2022-04-16 17:58:00 Delfino Granado [facility] POCT GLUCOSE (AUTOMATED) 2022-04-16 13:02:00 Delfino Granado [facility] POCT GLUCOSE (AUTOMATED) 2022-04-16 13:02:00 Delfino Granado [facility] BASIC METABOLIC PANEL 2022-04-16 10:04[facility]00 [facility] ([facility], [facility], CL, CO2, GLUCOSE, [facility] BUN, CREATININE, CA) CBC WITH DIFF 2022-04-16 10:04[facility]00 [facility] 2022-04-16 10:04:00 [facility] (NA, K, CL, CO2, GLUCOSE, [facility] BUN, CREATININE, CA) CBC WITH DIFF 2022-04-16 10:04:[address] [facility] BASIC METABOLIC PANEL 2022-04-16 05:41:00 Taya Wade [facility] (NA, K, CL, CO2, GLUCOSE, Medica l Branch BUN, CREATININE, CA) CBC WITHOUT DIFF 2022-04-16 05:41:00 Taya Wade [facility] ACTIVATED PARTIAL 2022-04-16 05:41:00 Ester [facility] BASIC METABOLIC PANEL 2022-04-16 05:41:00 Taya Wade [facility] (NA, K, CL, CO2, GLUCOSE, Medica l Branch BUN, CREATININE, CA) CBC WITHOUT DIFF 2022-04-16 05:41:00 Taya Wade [facility] ACTIVATED PARTIAL 2022-04-16 05:41:00 Ester [facility] POCT GLUCOSE (AUTOMATED) 2022-04-16 01:51:00 Delfino Granado [facility] POCT GLUCOSE (AUTOMATED) 2022-04-16 01:51:00 Delfino Granado [facility] POCT GLUCOSE (AUTOMATED) 2022-04-15 16:40:00 Delfino Granado [facility] POCT GLUCOSE (AUTOMATED) 2022-04-15 16:40:00 Delfino Granado [facility] ACTIVATED PARTIAL 2022-04-15 16:37:00 Ester [facility] ACTIVATED PARTIAL 2022-04-15 16:37:00 Ester [facility] POCT GLUCOSE (AUTOMATED) 2022-04-15 13:19:00 Delfino Granado [facility] POCT GLUCOSE (AUTOMATED) 2022-04-15 13:19:00 Delfino Granado [facility] BASIC METABOLIC PANEL 2022-04-15 09:00:00 Taya Wade [facility] (NA, K, CL, CO2, GLUCOSE, Medica l Branch BUN, CREATININE, CA) CBC WITHOUT DIFF 2022-04-15 09:00:00 Sue Wadeherine [facility] BASIC METABOLIC PANEL 2022-04-15 09:00:00 Taya Wade [facility] (NA, K, CL, CO2, GLUCOSE, Medica l Branch BUN, CREATININE, CA) CBC WITHOUT DIFF 2022-04-15 09:00:00 Sue Wadeherine [facility] CBC WITHOUT DIFF 2022-04-15 04:22:00 Taya Wade [facility] ACTIVATED PARTIAL 2022-04-15 04:22:00 Ester [facility] CBC WITHOUT DIFF 2022-04-15 04:22:00 Taya Wade [facility] ACTIVATED PARTIAL 2022-04-15 04:22:00 Ester [facility] POCT GLUCOSE (AUTOMATED) 2022-04-15 02:27:00 Delfino Granado [facility] POCT GLUCOSE (AUTOMATED) 2022-04-15 02:27:00 Delfino Granado [facility] POCT GLUCOSE (AUTOMATED) 2022-04-15 00:06:00 Delfino Granado [facility] POCT GLUCOSE (AUTOMATED) 2022-04-15 00:06:00 Vannesa, Delfino U [facility] PREPARE PACKED RBC 2022-04-14 18:57:54 Taya Wade [facility] PREPARE PACKED RBC 2022-04-14 18:57:54 Taya Wade [facility] POCT GLUCOSE (AUTOMATED) 2022-04-14 17:17:00 Delfino Granado [facility] POCT GLUCOSE (AUTOMATED) 2022-04-14 17:17:00 Delfino Granado [facility] ACTIVATED PARTIAL 2022-04-14 15:47:00 Ester [facility] HB ABO GROUPING 2022-04-14 15:47:00 Taya Wade [facility] ACTIVATED PARTIAL 2022-04-14 15:47:00 Ester [facility] HB ABO GROUPING 2022-04-14 15:47:00 Taya Wade [facility] DUPLEX ARTERIAL LEG RIGHT 2022-04-14 14:11:00 [facility] DUPLEX ARTERIAL LEG RIGHT 2022-04-14 14:11:00 Brandan Norman [facility] - BY VASCULAR LAB [facility] POCT GLUCOSE (AUTOMATED) 2022-04-14 13:35:00 Delfino Granado [facility] POCT GLUCOSE (AUTOMATED) 2022-04-14 13:35:00 Delfino Granado [facility] PHOSPHORUS 2022-04-14 06:05:00 Bobby Fournier [facility] MAGNESIUM 2022-04-14 06:05:00 Bobby Fournier [facility] IONIZED CALCIUM 2022-04-14 06:05:00 Shantanu [facility] BASIC METABOLIC PANEL 2022-04-14 06:05:00 Brandan Norman [facility] (NA, K, CL, CO2, GLUCOSE, [facility] BUN, CREATININE, CA) CBC WITH DIFF 2022-04-14 06:05:[address] [facility] ACTIVATED PARTIAL 2022-04-14 06:05:00 Ester [facility] PHOSPHORUS 2022-04-14 06:05:00 Shantanu [facility] MAGNESIUM 2022-04-14 06:05:00 Shantanu [facility] IONIZED CALCIUM 2022-04-14 06:05:00 Shantanu [facility] BASIC METABOLIC PANEL 2022-04-14 06:05:00 [facility] ([facility], K, CL, CO2, GLUCOSE, [facility] BUN, CREATININE, CA) CBC WITH DIFF 2022-04-14 06:05:[address] [facility] ACTIVATED PARTIAL 2022-04-14 06:05:00 Ester [facility] POCT GLUCOSE (AUTOMATED) 2022-04-14 04:01:00 Delfino Granado [facility] POCT GLUCOSE (AUTOMATED) 2022-04-14 04:01:00 Delfino Granado [facility] POCT GLUCOSE (AUTOMATED) 2022-04-13 23:32:00 Delfino Granado [facility] POCT GLUCOSE (AUTOMATED) 2022-04-13 23:32:00 Delfino Granado [facility] IONIZED CALCIUM 2022-04-13 21:13:00 Shantanu [facility] ACTIVATED PARTIAL 2022-04-13 21:13:00 Sushma [facility] IONIZED CALCIUM 2022-04-13 21:13:00 Shantanu [facility] ACTIVATED PARTIAL 2022-04-13 21:13:00 Sushma [facility] POCT GLUCOSE (AUTOMATED) 2022-04-13 17:31:00 Delfino Granado [facility] POCT GLUCOSE (AUTOMATED) 2022-04-13 17:31:00 Delfino Granado [facility] PHOSPHORUS 2022-04-13 10:51:00 [facility] MAGNESIUM 2022-04-13 10:51:00 Shantanu [facility] BASIC METABOLIC PANEL 2022-04-13 10:51:00 Bobby Fournier [facility] (NA, K, CL, CO2, GLUCOSE, [facility] BUN, CREATININE, CA) INTACT PTH CALCIUM GROUP 2022-04-13 10:51:00 Reba Lala U [facility] IRON PANEL 2022-04-13 10:51:00 Dai [facility] CBC WITHOUT DIFF 2022-04-13 10:51:00 Shantanu [facility] ACTIVATED PARTIAL 2022-04-13 10:51:00 Sushma [facility] PHOSPHORUS 2022-04-13 10:51:00 Klarissa [facility] MAGNESIUM 2022-04-13 10:51:00 Shantanu [facility] BASIC METABOLIC PANEL 2022-04-13 10:51:00 Bobby Fournier [facility] (NA, K, CL, CO2, GLUCOSE, [facility] BUN, CREATININE, CA) INTACT PTH CALCIUM GROUP 2022-04-13 10:51:00 Reba Lala [facility] IRON PANEL 2022-04-13 10:51:00 Dia [facility] CBC WITHOUT DIFF 2022-04-13 10:51:00 Shantanu [facility] ACTIVATED PARTIAL 2022-04-13 10:51:00 Sushma [facility] POCT GLUCOSE (AUTOMATED) 2022-04-13 01:41:00 Delfino Granado [facility] POCT GLUCOSE (AUTOMATED) 2022-04-13 01:41:00 Delfino Granado [facility] POCT GLUCOSE (AUTOMATED) 2022-04-12 22:13:00 Delfino Granado [facility] POCT GLUCOSE (AUTOMATED) 2022-04-12 22:13:00 Vannesa, Eric U [facility] ACTIVATED PARTIAL 2022-04-12 19:39:00 Sushma [facility] ACTIVATED PARTIAL 2022-04-12 19:39:00 Sushma [facility] POCT GLUCOSE (AUTOMATED) 2022-04-12 17:51:00 Vannesa, Eric U [facility] POCT GLUCOSE (AUTOMATED) 2022-04-12 17:51:00 Vannesa, Eric U [facility] POCT GLUCOSE (AUTOMATED) 2022-04-12 17:48:00 Vannesa, Eric U [facility] POCT GLUCOSE (AUTOMATED) 2022-04-12 17:48:00 Vannesa, Delfino U [facility] POCT GLUCOSE (AUTOMATED) 2022-04-12 12:28:00 Vannesa, Delfino U [facility] POCT GLUCOSE (AUTOMATED) 2022-04-12 12:28:00 Vannesa, Delfino Elham [facility] POCT GLUCOSE (AUTOMATED) 2022-04-12 12:25:00 Vannesa, Delfino Elham [facility] POCT GLUCOSE (AUTOMATED) 2022-04-12 12:25:00 Vannesa, Eric U [facility] ACTIVATED PARTIAL 2022-04-12 11:22:00 Ester [facility] ACTIVATED PARTIAL 2022-04-12 11:22:00 Ester [facility] XR CHEST 1 VW 2022-04-12 09:45:00 [facility] 2022-04-12 09:45:00 Bobby Fournier [facility] PHOSPHORUS 2022-04-12 08:51:00 Klarissa [facility] MAGNESIUM 2022-04-12 08:51:00 Bboby Fournier [facility] IONIZED CALCIUM 2022-04-12 08:51:00 [facility] BASIC METABOLIC PANEL 2022-04-12 08:51:00 Bobby Fournier [facility] (NA, K, CL, CO2, GLUCOSE, [facility] BUN, CREATININE, CA) CBC WITHOUT DIFF 2022-04-12 08:51:00 [facility] 2022-04-12 08:51:00 [facility] MAGNESIUM 2022-04-12 08:51:00 Shantanu [facility] IONIZED CALCIUM 2022-04-12 08:51:00 Shantanu [facility] BASIC METABOLIC PANEL 2022-04-12 08:51:00 Bobby Fournier [facility] (NA, K, CL, CO2, GLUCOSE, [facility] BUN, CREATININE, CA) CBC WITHOUT DIFF 2022-04-12 08:51:00 [facility] 2022-04-12 05:04:00 Ester [facility] ACTIVATED PARTIAL 2022-04-12 05:04:00 Ester [facility] POCT GLUCOSE (AUTOMATED) 2022-04-12 01:49:00 Delfino Granado [facility] POCT GLUCOSE (AUTOMATED) 2022-04-12 01:49:00 Delfino Granado [facility] POCT GLUCOSE (AUTOMATED) 2022-04-11 22:53:00 Delfino Granado [facility] POCT GLUCOSE (AUTOMATED) 2022-04-11 22:53:00 Delfino Granado [facility] ACTIVATED PARTIAL 2022-04-11 18:14:00 Sushma [facility] ACTIVATED PARTIAL 2022-04-11 18:14:00 Sushma [facility] ACTIVATED PARTIAL 2022-04-11 18:14:00 Sushma [facility] POCT GLUCOSE (AUTOMATED) 2022-04-11 17:45:00 Vannesa, Eric U [facility] POCT GLUCOSE (AUTOMATED) 2022-04-11 17:45:00 VannesaDelfino [facility] POCT GLUCOSE (AUTOMATED) 2022-04-11 17:45:00 Vannesa, Eric U [facility] XR CHEST 1 VW 2022-04-11 13:50:00 Shantanu [facility] XR CHEST 1 VW 2022-04-11 13:50:00 Shantanu [facility] XR CHEST 1 VW 2022-04-11 13:50:00 Shantanu [facility] POCT GLUCOSE (AUTOMATED) 2022-04-11 13:35:00 Delfino Granado [facility] POCT GLUCOSE (AUTOMATED) 2022-04-11 13:35:00 Delfino Granado [facility] POCT GLUCOSE (AUTOMATED) 2022-04-11 13:35:00 Delfino Granado [facility] PHOSPHORUS 2022-04-11 10:38:00 Sushma, [facility] MAGNESIUM 2022-04-11 10:38:00 Sushma, [facility] FERRITIN SERUM 2022-04-11 10:38:00 Sushma, [facility] BASIC METABOLIC PANEL 2022-04-11 10:38:00 Sushma, [facility] (NA, K, CL, CO2, GLUCOSE, Medica [facility] Branch BUN, CREATININE, CA) INTACT PTH CALCIUM GROUP 2022-04-11 10:38:00 Sushma, [facility] IRON PANEL 2022-04-11 10:38:00 Sushma, [facility] CBC WITH DIFF 2022-04-11 10:38:00 Sushma, [facility] PHOSPHORUS 2022-04-11 10:38:00 Sushma, [facility] MAGNESIUM 2022-04-11 10:38:00 Sushma, [facility] FERRITIN SERUM 2022-04-11 10:38:00 Sushma, [facility] BASIC METABOLIC PANEL 2022-04-11 10:38:00 Sushma, [facility] (NA, K, CL, CO2, GLUCOSE, Medica [facility] BUN, CREATININE, CA) INTACT PTH CALCIUM GROUP 2022-04-11 10:38:00 Sushma, [facility] IRON PANEL 2022-04-11 10:38:00 Sushma, [facility] CBC WITH DIFF 2022-04-11 10:38:00 Sushma, [facility] PHOSPHORUS 2022-04-11 10:38:00 Sushma, [facility] MAGNESIUM 2022-04-11 10:38:00 Sushma, [facility] FERRITIN SERUM 2022-04-11 10:38:00 Sushma, [facility] BASIC METABOLIC PANEL 2022-04-11 10:38:00 Sushma, [facility] (NA, K, CL, CO2, GLUCOSE, Medica [facility] Branch BUN, CREATININE, CA) INTACT PTH CALCIUM GROUP 2022-04-11 10:38:00 Sushma, [facility] IRON PANEL 2022-04-11 10:38:00 Sushma, [facility] CBC WITH DIFF 2022-04-11 10:38:00 Sushma, [facility] XR KUB 2022-04-11 09:05:00 Sushma, [facility] XR KUB 2022-04-11 09:05:00 Sushma, [facility] XR KUB 2022-04-11 09:05:00 Sushma, [facility] AC PANEL 20 + LACTIC ACID 2022-04-11 05:23:00 [facility] AC PANEL 20 + LACTIC ACID 2022-04-11 05:23:00 Alek Ordaz [facility] AC PANEL 20 + LACTIC ACID 2022-04-11 05:23:00 Alek [facility] PHOSPHORUS 2022-04-11 05:22:00 Ismael Martínez [facility] MAGNESIUM 2022-04-11 05:22:00 [facility] BASIC METABOLIC PANEL 2022-04-11 05:22:00 Ismael Martínez Univharjinder sity [facility] (NA, K, CL, CO2, GLUCOSE, Medica l Branch BUN, CREATININE, CA) CBC WITH DIFF 2022-04-11 05:22:00 Maur[facility] MRSA / MSSA SCREEN BY 2022-04-11 05:22:00 Ismael Martínez [facility] sity [facility] PCR, [facility] PHOSPHORUS 2022-04-11 05:22:00 Mauricio [facility] MAGNESIUM 2022-04-11 05:22:00 Mauricio [facility] BASIC METABOLIC PANEL 2022-04-11 05:22:00 [facility] (NA, K, CL, CO2, GLUCOSE, Medica [facility] Branch BUN, CREATININE, CA) CBC WITH DIFF 2022-04-11 05:22:00 [facility] MRSA / MSSA SCREEN BY 2022-04-11 05:22:00 Ismael Martínez Univ sity [facility] 2022-04-11 05:22:00 Sunday [facility] MAGNESIUM 2022-04-11 05:22:00 [facility] BASIC METABOLIC PANEL 2022-04-11 05:22:00 Ismael Martínez [facility] (NA, K, CL, CO2, GLUCOSE, Medica [facility] Branch BUN, CREATININE, CA) CBC WITH DIFF 2022-04-11 05:22:00 [facility] MRSA / MSSA SCREEN BY 2022-04-11 05:22:00 Ismael Martínez Univer sity [facility] ABG+COOX+NA+K+GLU+CA2+ 2022-04-11 03:34:00 Delfino Granado [facility] ABG+COOX+NA+K+GLU+CA2+ 2022-04-11 03:34:00 Delfino Granado [facility] TRANSFUSE PACKED RBC 2022-04-11 03:00:00 Ester Brandan [facility] TRANSFUSE PACKED RBC 2022-04-11 03:00:00 EsterKasiaar [facility] TRANSFUSE PACKED RBC 2022-04-11 03:00:00 EsterBrandan [facility] TRANSFUSE PACKED RBC 2022-04-11 02:42:00 EsterBrandan [facility] TRANSFUSE PACKED RBC 2022-04-11 02:42:00 EsterBrandan [facility] TRANSFUSE PACKED RBC 2022-04-11 02:42:00 Ester Brandan [facility] PREPARE PACKED RBC 2022-04-11 02:31:54 Ester Brandan [facility] PREPARE PACKED RBC 2022-04-11 02:31:54 Ester Brandan [facility] PREPARE PACKED RBC 2022-04-11 02:31:54 Ester Brandan [facility] ABG+COOX+NA+K+GLU+CA2+ 2022-04-11 02:26:00 Delfino Granado [facility] ABG+COOX+NA+K+GLU+CA2+ 2022-04-11 02:26:00 Delfino Granado [facility] ABG+COOX+NA+K+GLU+CA2+ 2022-04-11 02:13:00 Delfino Granado [facility] ABG+COOX+NA+K+GLU+CA2+ 2022-04-11 02:13:00 Delfino Granado [facility] ABG+COOX+NA+K+GLU+CA2+ 2022-04-11 00:27:00 Geraldine [facility]dez [facility] ABG+COOX+NA+K+GLU+CA2+ 2022-04-11 00:27:00 Geraldine Hern[facility]dez [facility] ABG+COOX+NA+K+GLU+CA2+ 2022-04-10 22:19:00 Delfino Granado [facility] ABG+COOX+NA+K+GLU+CA2+ 2022-04-10 22:19:00 Delfino Granado [facility] ABG+COOX+NA+K+GLU+CA2+ 2022-04-10 21:53:00 Delfino Granado [facility] ABG+COOX+NA+K+GLU+CA2+ 2022-04-10 21:53:00 Delfino Granado [facility] ABG+COOX+NA+K+GLU+CA2+ 2022-04-10 20:29:00 Delfino Granado Ailyn versity of [facility] ABG+COOX+NA+K+GLU+CA2+ 2022-04-10 20:29:00 [facility]elfino [facility] CENTRAL LINE 2022-04-10 19:15:00 Neville Abel [facility] INTUBATION 2022-04-10 19:14:00 Neville Abel [facility] ABG+COOX+NA+K+GLU+CA2+ 2022-04-10 19:12:00 [facility]G+COOX+NA+K+GLU+CA2+ 2022-04-10 19:12:00 [facility] ARTERIAL LINE 2022-04-10 17:30:00 Neville Abel [facility] ARTERIOGRAM 2022-04-10 16:50:00 Delfino Granado [facility] FEMORAL ENDARTERECTOMY 2022-04-10 16:50:00 [facility] FEMORAL-DISTAL BYPASS 2022-04-10 16:50:00 Delfino Granado [facility] GRAFT [facility] TOE AMPUTATION 2022-04-10 16:50:00 [facility] 2022-04-10 16:50:00 Delfino Granado [facility] FEMORAL ENDARTERECTOMY 2022-04-10 16:50:00 Delfino Granado [facility] FEMORAL-DISTAL BYPASS 2022-04-10 16:50:00 Delfino Granado [facility] GRAFT [facility] TOE AMPUTATION 2022-04-10 16:50:00 Delfino Granado [facility] POST DIALYSIS BUN 2022-04-10 16:34:00 Aleksandar Suero [facility] POST DIALYSIS BUN 2022-04-10 16:34:00 Aleksandar Suero [facility] POST DIALYSIS BUN 2022-04-10 16:34:00 Aleksandar Suero [facility] POCT GLUCOSE (AUTOMATED) 2022-04-10 14:34:00 Delfino Granado [facility] POCT GLUCOSE (AUTOMATED) 2022-04-10 14:34:00 Delfino Granado [facility] POCT GLUCOSE (AUTOMATED) 2022-04-10 14:34:00 Delfino Granado [facility] PHOSPHORUS 2022-04-10 09:40:[address] [facility] MAGNESIUM 2022-04-10 09:40:00 [facility] BASIC METABOLIC PANEL 2022-04-10 09:40:00 Ester Brandan [facility] (NA, K, CL, CO2, GLUCOSE, [facility] BUN, CREATININE, CA) CBC WITH DIFF 2022-04-10 09:40:[address] [facility] PHOSPHORUS 2022-04-10 09:40:[address] [facility] MAGNESIUM 2022-04-10 09:40:[address] [facility] BASIC METABOLIC PANEL 2022-04-10 09:40:00 Ester Brandan [facility] (NA, K, CL, CO2, GLUCOSE, [facility] BUN, CREATININE, CA) CBC WITH DIFF 2022-04-10 09:40:00 Ester [facility] PHOSPHORUS 2022-04-10 09:40:00 Ester [facility] MAGNESIUM 2022-04-10 09:40:[address] [facility] BASIC METABOLIC PANEL 2022-04-10 09:40:00 Ester Brandan [facility] (NA, K, CL, CO2, GLUCOSE, [facility] BUN, CREATININE, CA) CBC WITH DIFF 2022-04-10 09:40:[address] [facility] POCT GLUCOSE (AUTOMATED) 2022-04-10 01:34:00 Delfino Granado [facility] POCT GLUCOSE (AUTOMATED) 2022-04-10 01:34:00 Delfino Granado [facility] POCT GLUCOSE (AUTOMATED) 2022-04-10 01:34:00 Delfino Granado U [facility] COVID-19 (ID NOW RAPID 2022-04-09 23:46[facility] LAB ONLY COVID 2022-04-09 23:46:00 Ester [facility] INTERPRETATION [facility] COVID-19 (ID NOW RAPID 2022-04-09 23:46:00 [facility] TESTING) [facility] LAB ONLY COVID 2022-04-09 23:46:00 Ester [facility] INTERPRETATION [facility] COVID-19 (ID NOW RAPID 2022-04-09 23:46:00 [facility] LAB ONLY COVID 2022-04-09 23:46:00 Ester [facility] INTERPRETATION [facility] COVID-19 (ID NOW RAPID 2022-04-09 23:46:00 Brandan Norman [facility] TESTING) [facility] LAB ONLY COVID 2022-04-09 23:46:00 Ester [facility] POCT GLUCOSE (AUTOMATED) 2022-04-09 21:25:00 Vannesa, [facility] GLUCOSE (AUTOMATED) 2022-04-09 21:25:00 Vannesa, [facility]ino [facility] POCT GLUCOSE (AUTOMATED) 2022-04-09 21:25:00 Vannesa, [facility]ino [facility] PO[facility] GLUCOSE (AUTOMATED) 2022-04-09 21:25:00 Vannesa, Delfino [facility] POCT GLUCOSE (AUTOMATED) 2022-04-09 16:46:00 Vannesa, Delfino [facility] POCT GLUCOSE (AUTOMATED) 2022-04-09 16:46:00 Vannesa, Delfino [facility] POCT GLUCOSE (AUTOMATED) 2022-04-09 16:46:00 Vannesa, Delfino [facility] POCT GLUCOSE (AUTOMATED) 2022-04-09 16:46:00 Vannesa Delfino U [facility] HB ABO GROUPING 2022-04-09 16:05:[address] [facility] HB ABO GROUPING 2022-04-09 16:05:[address] [facility] HB ABO GROUPING 2022-04-09 16:05:[address] [facility] HB ABO GROUPING 2022-04-09 16:05:[address] [facility] POCT GLUCOSE (AUTOMATED) 2022-04-09 13:05:00 Vannesa, [facility] PO[facility] GLUCOSE (AUTOMATED) 2022-04-09 13:05:00 Vannesa Delfino [facility] POCT GLUCOSE (AUTOMATED) 2022-04-09 13:05:00 Delfino Granado [facility] POCT GLUCOSE (AUTOMATED) 2022-04-09 13:05:00 Delfino Granado [facility] BASIC METABOLIC PANEL 2022-04-09 10:00:00 [facility] (NA, K, CL, CO2, GLUCOSE, [facility] BUN, CREATININE, CA) CBC WITH DIFF 2022-04-09 10:00:00 [facility] BASIC METABOLIC PANEL 2022-04-09 10:00:00 [facility] (NA, K, CL, CO2, GLUCOSE, [facility] BUN, CREATININE, CA) CBC WITH DIFF 2022-04-09 10:00:00 [facility] BASIC METABOLIC PANEL 2022-04-09 10:00:00 [facility] (NA, K, CL, CO2, GLUCOSE, [facility] BUN, CREATININE, CA) CBC WITH DIFF 2022-04-09 10:00:00 [facility] BASIC METABOLIC PANEL 2022-04-09 10:00:00 [facility] (NA, K, CL, CO2, GLUCOSE, [facility] BUN, CREATININE, CA) CBC WITH DIFF 2022-04-09 10:00:00 [facility] POCT GLUCOSE (AUTOMATED) 2022-04-09 01:29:00 Delfino Granado [facility] POCT GLUCOSE (AUTOMATED) 2022-04-09 01:29:00 Delfino Granado [facility] POCT GLUCOSE (AUTOMATED) 2022-04-09 01:29:00 Delfino Granado [facility] POCT GLUCOSE (AUTOMATED) 2022-04-09 01:29:00 Delfino Granado [facility] POCT GLUCOSE (AUTOMATED) 2022-04-08 23:48:00 Vannesa, [facility] GLUCOSE (AUTOMATED) 2022-04-08 23:48:00 VannesaDelfino [facility] PO[facility] GLUCOSE (AUTOMATED) 2022-04-08 23:48:00 Vannesa, Eric [facility] PO[facility] GLUCOSE (AUTOMATED) 2022-04-08 23:48:00 VannesaDelfino [facility] PO[facility] GLUCOSE (AUTOMATED) 2022-04-08 16:50:00 Vannesa, Eric [facility] POCT GLUCOSE (AUTOMATED) 2022-04-08 16:50:00 Vannesa, Eric [facility] POCT GLUCOSE (AUTOMATED) 2022-04-08 16:50:00 Vannesa, Eric [facility] PO[facility] GLUCOSE (AUTOMATED) 2022-04-08 16:50:00 Delfino Granado [facility] FL TIME OR 2022-04-08 15:02:00 Tyrell Salvador [facility] (NON-REPORTABLE[facility] FL TIME OR 2022-04-08 15:02:00 Modesto Tyrell [facility]NON[facility]REPORT[facility] FL TIME OR 2022-04-08 15:02:00 Modesto Tyrell [facility] (NON-REPORT[facility] FL TIME OR 2022-04-08 15:02:00 [place] Tyrell [facility] ARTERIOGRAM 2022-04-08 12:51:00 Tyrell Salvador [facility] ANGIOPLASTY 2022-04-08 12:51:00 Mod[place] Tyrell [facility] VASCULAR STENTING 2022-04-08 12:51:00 Modesto Tyrell [facility] ARTERIOGRAM 2022-04-08 12:51:00 Modesto Tyrell [facility] ANGIOPLASTY 2022-04-08 12:51:00 Mod[place] Tyrell [facility] VASCULAR STENTING 2022-04-08 12:51:00 Tyrell Salvador [facility] POCT GLUCOSE (AUTOMATED) 2022-04-08 12:39:00 Delfino Granado [facility] POCT GLUCOSE (AUTOMATED) 2022-04-08 12:39:00 Delfino Granado [facility] POCT GLUCOSE (AUTOMATED) 2022-04-08 12:39:00 Delfino Granado [facility] POCT GLUCOSE (AUTOMATED) 2022-04-08 12:39:00 Delfino Granado [facility] BASIC METABOLIC PANEL 2022-04-08 10:49:00 [facility] (NA, K, CL, CO2, GLUCOSE, [facility] BUN, CREATININE, CA) CBC WITH DIFF 2022-04-08 10:49:[address] [facility] BASIC METABOLIC PANEL 2022-04-08 10:49:00 [facility] (NA, K, CL, CO2, GLUCOSE, [facility] BUN, CREATININE, CA) CBC WITH DIFF 2022-04-08 10:49:00 [facility] BASIC METABOLIC PANEL 2022-04-08 10:49:00 [facility] (NA, K, CL, CO2, GLUCOSE, [facility] BUN, CREATININE, CA) CBC WITH DIFF 2022-04-08 10:49:00 [facility] BASIC METABOLIC PANEL 2022-04-08 10:49:00 [facility] (NA, K, CL, CO2, GLUCOSE, [facility] BUN, CREATININE, CA) CBC WITH DIFF 2022-04-08 10:49:00 [facility] PO[facility] GLUCOSE (AUTOMATED) 2022-04-08 01:28:00 Delfino Granado [facility] POCT GLUCOSE (AUTOMATED) 2022-04-08 01:28:00 Delfino Granado [facility] POCT GLUCOSE (AUTOMATED) 2022-04-08 01:28:00 Delfino Granado [facility] POCT GLUCOSE (AUTOMATED) 2022-04-08 01:28:00 Delfino Granado [facility] POCT GLUCOSE (AUTOMATED) 2022-04-07 20:41:00 Delfino Granado [facility] POCT GLUCOSE (AUTOMATED) 2022-04-07 20:41:00 Delfino Granado [facility] POCT GLUCOSE (AUTOMATED) 2022-04-07 20:41:00 Delfino Granado [facility] POCT GLUCOSE (AUTOMATED) 2022-04-07 20:41:00 Vannesa, Eric [facility] POCT GLUCOSE (AUTOMATED) 2022-04-07 16:26:00 Delfino Granado [facility] POCT GLUCOSE (AUTOMATED) 2022-04-07 16:26:00 Vannesa, Eric [facility] POCT GLUCOSE (AUTOMATED) 2022-04-07 16:26:00 Delfino Granado [facility] POCT GLUCOSE (AUTOMATED) 2022-04-07 16:26:00 Vannesa, Eric [facility] PHOSPHORUS 2022-04-07 09:59:00 Arabella [facility] MAGNESIUM 2022-04-07 09:59:00 Arabella [facility] BASIC METABOLIC PANEL 2022-04-07 09:59:00 [facility] ([facility], K, CL, CO2, GLUCOSE, Medica l Branch BUN, CREATININE, CA) CBC WITH DIFF 2022-04-07 09:59:00 Arabella [facility] PHOSPHORUS 2022-04-07 09:59:00 Arabella [facility] MAGNESIUM 2022-04-07 09:59:00 Tsukagoshi, [facility] BASIC METABOLIC PANEL 2022-04-07 09:59:00 Arabella [facility] (NA, K, CL, CO2, GLUCOSE, Medica l Branch BUN, CREATININE, CA) CBC WITH DIFF 2022-04-07 09:59:00 [facility] PHOSPHORUS 2022-04-07 09:59:00 [facility] MAGNESIUM 2022-04-07 09:59:00 [facility] BASIC METABOLIC PANEL 2022-04-07 09:59:00 [facility] (NA, K, CL, CO2, GLUCOSE, Medica l Branch BUN, CREATININE, CA) CBC WITH DIFF 2022-04-07 09:59:00 [facility] PHOSPHORUS 2022-04-07 09:59:00 [facility] MAGNESIUM 2022-04-07 09:59:00 [facility] BASIC METABOLIC PANEL 2022-04-07 09:59:00 Arabella [facility] (NA, K, CL, CO2, GLUCOSE, Medica l Branch BUN, CREATININE, CA) CBC WITH DIFF 2022-04-07 09:59:00 [facility] POCT GLUCOSE (AUTOMATED) 2022-04-07 02:16:00 Delfino Granado [facility] POCT GLUCOSE (AUTOMATED) 2022-04-07 02:16:00 Delfino Granado [facility] POCT GLUCOSE (AUTOMATED) 2022-04-07 02:16:00 Delfino Granado [facility] POCT GLUCOSE (AUTOMATED) 2022-04-07 02:16:00 Vannesa, Eric [facility] COVID-19 (ID NOW RAPID 2022-04-06 22:06:00 Brandan [facility] TESTING) [facility] LAB ONLY COVID 2022-04-06 22:06:00 Sahmagali, Brandan [employer] [place] INTERPRETATION [facility] COVID-19 (ID NOW RAPID 2022-04-06 22:06:00 Sahibzada, Brandan [facility] TESTING) [facility] LAB ONLY COVID 2022-04-06 22:06:00 Sahibanna, Brandan [place] [facility] [place] INTERPRETATION [facility] COVID-19 (ID NOW RAPID 2022-04-06 22:06:00 Sahibzada, Brandan [facility] TESTING) [facility] LAB ONLY COVID 2022-04-06 22:06:00 Sahibanna, Brandan [employer] [facility] [employer] [place] INTERPRETATION [facility] COVID-19 (ID NOW RAPID 2022-04-06 22:06:00 Sahibzada, Brandan [facility] TESTING) [facility] LAB ONLY COVID 2022-04-06 22:06:00 Jessibanna, Brandan [employer] [place] INTERPRETATION [facility] Branch POCT GLUCOSE (AUTOMATED) 2022-04-06 22:03:00 Delfino Granado U [facility]iversity [facility] POCT GLUCOSE (AUTOMATED) 2022-04-06 22:03:00 Delfino Granado U [facility] POCT GLUCOSE (AUTOMATED) 2022-04-06 22:03:00 Delfino Granado U niversity [facility] POCT GLUCOSE (AUTOMATED) 2022-04-06 22:03:00 Delfino Granado U niversity [facility] POCT GLUCOSE (AUTOMATED) 2022-04-06 16:38:00 Delfino Granado U niversity [facility] POCT GLUCOSE (AUTOMATED) 2022-04-06 16:38:00 Delfino Granado U niversity [facility] POCT GLUCOSE (AUTOMATED) 2022-04-06 16:38:00 Vannesa Delfino U niversity [facility] POCT GLUCOSE (AUTOMATED) 2022-04-06 16:38:00 Delfino Granado U niversity [facility] POCT GLUCOSE (AUTOMATED) 2022-04-06 13:17:00 Delfino Granado [facility] POCT GLUCOSE (AUTOMATED) 2022-04-06 13:17:00 Delfino Granado [facility] POCT GLUCOSE (AUTOMATED) 2022-04-06 13:17:00 Delfino Granado [facility] POCT GLUCOSE (AUTOMATED) 2022-04-06 13:17:00 Delfino Granado [facility] BASIC METABOLIC PANEL 2022-04-06 09:35:00 [facility] (NA, K, CL, CO2, GLUCOSE, Medica l Branch BUN, CREATININE, CA) CBC WITH DIFF 2022-04-06 09:35:00 [facility] BASIC METABOLIC PANEL 2022-04-06 09:35:00 [facility] (NA, K, CL, CO2, GLUCOSE, Medica l Branch BUN, CREATININE, CA) CBC WITH DIFF 2022-04-06 09:35:00 [facility]OLIC PANEL 2022-04-06 09:35:00 [facility] (NA, K, CL, CO2, GLUCOSE, Medica l Branch BUN, CREATININE, CA) CBC WITH DIFF 2022-04-06 09:35:00 [facility] BASIC METABOLIC PANEL 2022-04-06 09:35:00 [facility] (NA, K, CL, CO2, GLUCOSE, Medica l Branch BUN, CREATININE, CA) CBC WITH DIFF 2022-04-06 09:35:00 [facility] POCT GLUCOSE (AUTOMATED) 2022-04-06 01:10:00 Brad Granger [facility] POCT GLUCOSE (AUTOMATED) 2022-04-06 01:10:00 [facility] 2022-04-06 01:10:00 [facility] POCT GLUCOSE (AUTOMATED) 2022-04-06 01:10:00 Brad Granger versity of [facility] POCT GLUCOSE (AUTOMATED) 2022-04-05 21:37:00 Brad Granger Uni versity of [facility] POCT GLUCOSE (AUTOMATED) 2022-04-05 21:37:00 Brad Granger versity of [facility] POCT GLUCOSE (AUTOMATED) 2022-04-05 21:37:00 Brad Granger versity of [facility] POCT GLUCOSE (AUTOMATED) 2022-04-05 21:37:00 Brad Granger versity of [facility] HEPATITIS B SURFACE 2022-04-05 18:47:00 AgliecoJefferyio G [facility]y [facility] [place] ANTIBODY Medical Branch HEPATITIS B SURFACE 2022-04-05 18:47:00 Aglieco George G [facility] ity [facility] ANTIGEN Medical Branch HEPATITIS B SURFACE 2022-04-05 18:47:00 AgliecoJefferyio G [facility] ity [facility] ANTIBODY Medical Branch HEPATITIS B SURFACE 2022-04-05 18:47:00 Aglieco George G [facility] [place] ANTIGEN Medical Branch HEPATITIS B SURFACE 2022-04-05 18:47:00 Aglieco George G [facility] [place] ANTIBODY Medical Branch HEPATITIS B SURFACE 2022-04-05 18:47:00 Aglieco George G [facility] [place] ANTIGEN Medical Branch HEPATITIS B SURFACE 2022-04-05 18:47:00 Aglieco George G [facility] [place] ANTIBODY Medical Branch HEPATITIS B SURFACE 2022-04-05 18:47:00 Agcrystaleco George G [facility] ity [facility] ANTIGEN Medical Branch POCT GLUCOSE (AUTOMATED) 2022-04-05 16:58:00 Brad Granger versity of [facility] POCT GLUCOSE (AUTOMATED) 2022-04-05 16:58:00 Brad Granger versity of [facility] POCT GLUCOSE (AUTOMATED) 2022-04-05 16:58:00 Brad Granger versity of [facility] POCT GLUCOSE (AUTOMATED) 2022-04-05 16:58:00 Brad Granger versity of [facility] DUPLEX ARTERIAL LEG RIGHT 2022-04-05 13:53:00 Emily Aragon [facility] - BY VASCULAR LAB Medical Branch DUPLEX ARTERIAL LEG RIGHT 2022-04-05 13:53:00 Emily Aragon [facility] [place] - BY VASCULAR LAB Medical Branch DUPLEX ARTERIAL LEG RIGHT 2022-04-05 13:53:00 Emily Aragon [facility] [place] - BY VASCULAR LAB Medical Branch DUPLEX ARTERIAL LEG RIGHT 2022-04-05 13:53:00 Emily Aragon [facility] [place] - BY VASCULAR LAB Medical Branch POCT GLUCOSE (AUTOMATED) 2022-04-05 13:15:00 Brad Granger Uni versity of [facility] POCT GLUCOSE (AUTOMATED) 2022-04-05 13:15:00 Brad Granger Uni versity of [facility] POCT GLUCOSE (AUTOMATED) 2022-04-05 13:15:00 Brad Granger [facility] versity of [facility] POCT GLUCOSE (AUTOMATED) 2022-04-05 13:15:00 [facility] BASIC METABOLIC PANEL 2022-04-05 09:18:00 Mell Murphy [facility] [place] (NA, K, CL, CO2, GLUCOSE, Medica l Branch BUN, CREATININE, CA) CBC WITH DIFF 2022-04-05 09:18:00 Mell Murphy [facility] BASIC METABOLIC PANEL 2022-04-05 09:18:00 Mell Murphy [facility] [place] (NA, K, CL, CO2, GLUCOSE, Medica l Branch BUN, CREATININE, CA) CBC WITH DIFF 2022-04-05 09:18:00 Mell Murphy [facility] BASIC METABOLIC PANEL 2022-04-05 09:18:00 Mell Murphy [facility] [place] (NA, K, CL, CO2, GLUCOSE, Medica l Branch BUN, CREATININE, CA) CBC WITH DIFF 2022-04-05 09:18:00 Mell Murphy [facility] BASIC METABOLIC PANEL 2022-04-05 09:18:00 Mell Murphy [facility] [place] (NA, K, CL, CO2, GLUCOSE, Medica l Branch BUN, CREATININE, CA) CBC WITH DIFF 2022-04-05 09:18:00 Jeffrey, [facility] DISCLOSURE AND CONSENT, 2022-04-05 05:01:00 Doctor Unassigned, [facility] [place] MEDICAL AND SURGICAL [facility] PROCEDURES DISCLOSURE AND CONSENT, 2022-04-05 05:01:00 Doctor Unassigned, [facility] [place] MEDICAL [facility] SURGICAL [facility] PROCEDURES DISCLOSURE AND CONSENT, 2022-04-05 05:01:00 Doctor Unassigned, [facility] [place] MEDICAL AND SURGICAL [facility] PROCEDURES DISCLOSURE AND CONSENT, 2022-04-05 05:01:00 Doctor Unassigned, [facility] [place] MEDICAL [facility] SURGICAL [facility] PROCEDURES POCT GLUCOSE (AUTOMATED) 2022-04-05 03:01:00 Brad Granger [facility] POCT GLUCOSE (AUTOMATED) 2022-04-05 03:01:00 Brad Granger [facility] POCT GLUCOSE (AUTOMATED) 2022-04-05 03:01:00 Brad Granger [facility] POCT GLUCOSE (AUTOMATED) 2022-04-05 03:01:00 Brad Granger [facility] XR FOOT <3 VW RIGHT 2022-04-04 17:19:47 Kimberly Menon [facility] XR FOOT <3 VW RIGHT 2022-04-04 17:19:47 Kimberly Menon [facility] XR FOOT <3 VW RIGHT 2022-04-04 17:19:47 Kimberly Menon [facility] XR FOOT <3 VW RIGHT 2022-04-04 17:19:47 Kimberly Menon [facility] PHOSPHORUS 2022-04-04 17:06:00 Mell Murphy [facility] MAGNESIUM 2022-04-04 17:06:00 Jeffrey Mell Angela [facility] C-REACTIVE PROTEIN 2022-04-04 17:06:00 Kimberly Menon [facility] COMP. METABOLIC PANEL 2022-04-04 17:06:00 Kimberly Menon [facility] ([id number]) [facility] LIPID PANEL ([id number])(TOTAL 2022-04-04 17:06:00 Mell Murphy [facility] CHOLESTEROL, [facility] Branch TRIGLYCERIDES, HDL) SEDIMENTATION RATE 2022-04-04 17:06:00 Kimberly Menon [facility] CBC WITH DIFF 2022-04-04 17:06:00 Kimberly Menon [facility] GLYCOSYLATED HEMOGLOBIN 2022-04-04 17:06:00 Mell Murphy [facility] ([facility]) Medical Branch PHOSPHORUS 2022-04-04 17:06:00 Mell Murphy [facility] MAGNESIUM 2022-04-04 17:06:00 Jeffrey Mell Angela [facility] C-REACTIVE PROTEIN 2022-04-04 17:06:00 Kimberly Menon [facility] COMP. METABOLIC PANEL 2022-04-04 17:06:00 Kimberly Menon [facility] ([id number]) [facility] LIPID PANEL ([id number])(TOTAL 2022-04-04 17:06:00 Mell Murphy [facility] CHOLESTEROL, [facility] TRIGLYCERIDES, HDL) SEDIMENTATION RATE 2022-04-04 17:06:00 Kimberly Menon [facility] CBC WITH DIFF 2022-04-04 17:06:00 Kimberly Menon [facility] GLYCOSYLATED HEMOGLOBIN 2022-04-04 17:06:00 Mell Murphy [facility]) [facility] PHOSPHORUS 2022-04-04 17:06:00 Mell Murphy [facility] MAGNESIUM 2022-04-04 17:06:00 Mell Murphy [facility] C-REACTIVE PROTEIN 2022-04-04 17:06:00 Kimberly Menon [facility] COMP. METABOLIC PANEL 2022-04-04 17:06:00 Kimberly Menon [facility] ([id number]) [facility] LIPID PANEL ([id number])(TOTAL 2022-04-04 17:06:00 Mell Murphy [facility] CHOLESTEROL, [facility] TRIGLYCERIDES, HDL) SEDIMENTATION RATE 2022-04-04 17:06:00 Kimberly Menon [facility] CBC WITH DIFF 2022-04-04 17:06:00 Kimberly Menon [facility] GLYCOSYLATED HEMOGLOBIN 2022-04-04 17:06:00 Mell Murphy [facility] (A1C) Medical Branch PHOSPHORUS 2022-04-04 17:06:00 Mell Murphy [facility] Medical Branch MAGNESIUM 2022-04-04 17:06:00 Mell Murphy [facility] C-REACTIVE PROTEIN 2022-04-04 17:06:00 Kimberly Menon [facility] COMP. METABOLIC PANEL 2022-04-04 17:06:00 Kimberly Menon [facility] ([id number]) [facility] [place] LIPID PANEL (34030)(TOTAL 2022-04-04 17:06:00 Mell Murphy [facility] CHOLESTEROL, [facility] TRIGLYCERIDES, HDL) SEDIMENTATION RATE 2022-04-04 17:06:00 Kimberly Menon [facility] CBC WITH DIFF 2022-04-04 17:06:00 Kimberly Menon [facility] GLYCOSYLATED HEMOGLOBIN 2022-04-04 17:06:00 Mell Murphy [facility] [place] CONSENT/REFUSAL FOR 2022-04-04 16:10:56 Doctor Howieigned [facility] DIAGNOSIS AND TREATMENT [facility] CONSENT/REFUSAL FOR 2022-04-04 16:10:56 Doctor Flori [facility] DIAGNOSIS AND TREATMENT [facility] CONSENT/REFUSAL FOR 2022-04-04 16:10:56 Doctor Flori [facility] DIAGNOSIS AND TREATMENT [facility] CONSENT/REFUSAL FOR 2022-04-04 16:10:56 Doctor Flori [facility] DIAGNOSIS AND TREATMENT [facility] DISCLOSURE AND CONSENT, 2022-04-04 05:01:00 Doctor Flori, [facility] MEDICAL AND SURGICAL [facility] PROCEDURES HOSPITAL ADMISSION 2022-04-04 05:01:00 Doctor Flori [facility] DISCLOSURE AND CONSENT, 2022-04-04 05:01:00 Doctor Flori, [facility] MEDICAL AND SURGICAL [facility] PROCEDURES HOSPITAL ADMISSION 2022-04-04 05:01:00 Doctor Ruby [facility] DISCLOSURE AND CONSENT, 2022-04-04 05:01:00 Doctor Flroi [facility] MEDICAL AND SURGICAL [facility] PROCEDURES HOSPITAL ADMISSION 2022-04-04 05:01:00 Doctor Ruby [facility] DISCLOSURE AND CONSENT, 2022-04-04 05:01:00 Doctor Flori [facility] MEDICAL AND SURGICAL [facility] PROCEDURES HOSPITAL ADMISSION 2022-04-04 05:01:00 Doctor Ruby [facility] CLOSED RX METATARSAL 2022-03-30 01:32:32 Singer Efrem [facility] FX Medical Branch URINALYSIS 2022-03-30 01:01:00 Singer [facility] COMP. METABOLIC PANEL 2022-03-29 22:17:00 Efrem Mcnair [facility] ([id number]) Medical Branch CBC WITH DIFF 2022-03-29 22:17:00 Singer [facility] RAPID INFLUENZA A/B 2022-03-29 21:49:00 Efrem Mcnair [facility] COVID-19 (ID NOW RAPID 2022-03-29 21:49:00 Singer Efrem [facility] TESTING) Medical Branch XR FOOT <3 VW RIGHT 2022-03-29 21:46:37 Efrem Mcnair [facility] CONSENT/REFUSAL FOR 2022-03-29 20:52:52 Doctor Ruby [facility] DIAGNOSIS AND TREATMENT [facility] Encounters Start End Encounter Admission Attending Care Care Encounter Source Date/Time Date/Time Type Type Clinicians Facility Department ID 2022-05-22 Outpatient 3 [id number] ENCPL CHACHO [id number] [facility] 08:48:44 [facility] [place] 2022-05-17 Outpatient 3 [id number] ENCPL REF [id number] [facility] 08:58:34 [facility] [place] 2021-04-16 Emergency [facility] [id number] Univers 00:49:47 ity [facility] 2021-04-14 Emergency [facility] [id number] Univers [facility] 2022-08-01 Outpatient R WILMER [facility] [id number] Univers 15:00:00 15:00:00 SENDIL [facility] 2022-08-01 2022-08-01 Outpatient R WILMER [facility] [id number] Univers 15:00:00 15:00:00 SENDIL itlalita [facility] 2022-06-13 2022-06-13 Outpatient R DELFINO GRANADO [facility] [id number] Univers 15:00:00 15:00:00 DELFINO GRANADO lalita [facility] 2022-06-06 2022-06-06 Outpatient R DELFINO GRANADO [facility] [id number] Univers 15:30:00 15:30:00 DELFINO GRANADO [facility] 2022-06-05 2022-06-05 Telephone [facility] 1.2.840.11 [id number] Univers 00:00:00 00:00:00 , Delfino Y HEALTH 350.1.13.10 i [place] [id number] [address] 2022-06-03 2022-06-03 Telephone [facility] 1.2.840.11 [id number] Univers 00:00:00 00:00:00 , Delfino HEALTH 350.1.13.10 i [place] [id number] [address] 2022-05-31 2022-05-31 Telephone [facility] 1.2.840.11 [id number] Univers 00:00:00 00:00:00 , Delfino HEALTH 350.1.13.10 i [place] [id number] [address] 2022-05-30 2022-05-30 Telephone [facility] [id number] Univers 00:00:00 00:00:00 Precious HEALTH 350.1.13.10 it y of [facility] 4.2.7.2.686 Luis Alberto as ETHAN?BLEA [id number] [address] MEDICAL OFFICE BUILDING 2022-05-29 2022-05-29 Telephone NAEEM Salvador 1.2.840.114 [id number] Univers 00:00:00 00:00:00 Tyrell Y HEALTH 350.1.13.10 i [place] [id number] [address] 2022-05-27 2022-05-27 Outpatient R BELLA [facility] [id number] Univers 15:30:00 16:16:23 MICHELLEAARON nickerson [facility] 2022-05-27 2022-05-27 Office NAEEM Blanco 1.2.840.114 [id number] Univers 15:30:00 16:16:23 Visit Michelle R Y HEALTH 350.1.13.10 ity of [facility] [place] [id number] [address] 2022-05-27 2022-05-27 Orders Doctor ANATOLIY 1.2.840.114 [id number] Univers 00:00:00 00:00:00 Only Unassigned, NAKUL 350.1.13.10 ity of [facility] 4.2.7.2.686 Luis Alberto as [id number] [address] 2022-05-24 2022-05-24 [facility] 1.2.840.114 [id number] Univers 00:00:00 00:00:00 Outreach Katie L HEALTH 350.1.13.10 i ty of [facility] 4.2.7.2.686 Luis Alberto as ETHAN?BLEA [id number] [address] MEDICAL OFFICE [facility] 2022-05-23 2022-05-23 Outpatient R ANASTACIA [facility] [id number] Univers 14:30:00 16:02:17 PRECIOUS ity [facility] 2022-05-23 2022-05-23 [facility] 1.2.840.114 [id number] Univers 14:30:00 16:02:17 Visit Precious HEALTH 350.1.13.10 it y of [place] 4.2.7.2.686 Luis Alberto as ETHAN?BLEA [id number] [address] OFFICE [facility] 2022-05-23 2022-05-23 Telephone Vannesa [facility] 1.2.840.11 [id number] Univers 00:00:00 00:00:00 , Delfino Y HEALTH 350.1.13.10 i [place] [id number] [address] 2022-05-21 2022-05-21 Telephone [facility] [id number] Univers 00:00:00 00:00:00 Precious HEALTH 350.1.13.10 it y of [place] 4.2.7.2.686 Luis Alberto as ETHAN?BLEA [id number] [address] OFFICE [facility] 2022-05-17 2022-05-17 Telephone [facility] [id number] Univers 00:00:00 00:00:00 Precious HEALTH 350.1.13.10 it y of [place] 4.2.7.2.686 Luis Alberto as ETHAN?BLEA [id number] [address] OFFICE [facility] 2022-05-14 2022-05-14 Telephone [facility] [id number] [id number] Univers 00:00:00 00:00:00 Precious HEALTH 350.1.13.10 it y of [place] 4.2.7.2.686 Luis Alberto as ETHAN?BLEA [id number] [address] OFFICE [facility] 2022-05-13 2022-05-13 Telephone Bella [facility] 1.2.840.11 [id number] Univers 00:00:00 00:00:00 Michelle R Y HEALTH 350.1.13.10 [place]y [place] [id number] [address] 2022-05-08 2022-05-08 Telephone [facility] [id number] Univers 00:00:00 00:00:00 Precious HEALTH 350.1.13.10 it y of [place] 4.2.7.2.686 Luis Alberto as ETHAN?BLEA [id number] [address] MEDICAL OFFICE BUILDING 2022-05-06 2022-05-06 Transition JOANNA Elias 1.2.840.114 [id number] Univers 00:00:00 00:00:00 of Care Wanda CORDEROY 350.1.13.10 i [place] [id number] [facility] [address] [place] 2022-04-04 2022-05-03 Inpatient X [facility] [id number] Univers 11:26:00 23:00:00 [facility] ity of [facility] 2022-04-04 2022-05-03 [facility] Kimberly Menon 1.2.84 [id number] Univers 11:26:00 23:00:00 Encounter Brad Granger 350.1.13.[address] [facility] 4.2.7.2.686 [place] [id number] [place] [id number] [place] 2022-05-03 2022-05-03 Telephone [facility] [id number] Univers 00:00:00 00:00:00 Precious HEALTH 350.1.13.10 it y of [place] 4.2.7.2.686 Luis Alberto as ETHAN?BLEA [id number] [address] MEDICAL OFFICE [facility] 2022-04-23 2022-04-23 Telephone [facility] 1.2.840.11 [id number] Univers 00:00:00 00:00:00 , Delfino Y HEALTH 350.1.13.10 i [place] [id number] [address] 2022-04-17 2022-04-17 Surgery Vannesa KEY 1.2.840.114 [id number] Univers 10:30:00 13:28:00 , Delfino MOTA 350.1.13.10 it y of [facility] 4.2.7.2.686 Luis Alberto as [id number] [address] 2022-04-10 2022-04-11 Anesthesia Chuck Cohn 1.2.840.114 [id number] Univers 12:30:00 00:30:00 Event Yeni Dang NAKUL 350.1.13.10 ity of [facility] 4.2.7.2.686 [place] as [id number] [place] [address] Branch 2022-04-10 2022-04-10 Surgery Vannesa [address] 1.2.840.114 [id number] Univers 11:00:00 17:10:00 , Delfino GRANADOSY 350.1.13.10 it y of [facility] 4.2.7.2.686 Luis Alberto as [id number] [address] 2022-04-08 2022-04-08 Surgery SHAHID Salvador 1.2.840.114 [id number] Univers 07:15:00 11:16:00 Tyrell MOTA 350.1.13.10 it y of [facility] 4.2.7.2.686 Luis Alberto as [id number] [address] 2022-04-08 2022-04-08 Telephone HERNANDO Galaviz [id number] Univers 00:00:00 00:00:00 [facility] 350.1.13.10 it y of [place] 4.2.7.2.686 Luis Alberto as ETHAN?BLEA [id number] [address] MEDICAL OFFICE BUILDING 2022-03-29 2022-03-29 Emergency X SINGER DCXI ERT [id number] Univers 16:06:00 20:48:00 EFREM nickerson [facility] 2022-03-29 2022-03-29 Emergency Singer [facility] [id number] Univers 16:06:00 20:48:00 Efrem BLAKE 350.1.13.10 i ty of [place] [id number] [address] 2022-03-29 2022-03-29 Telephone [facility] 1.2.207.121 [id number] Univers 00:00:00 00:00:00 Precious HEALTH 350.1.13.10 it y of [place] 4.2.7.2.686 Luis Alberto as ETHAN?BLEA [id number] [address] MEDICAL OFFICE [facility] 2022-03-27 2022-03-27 Telephone [facility] [id number] Univers 00:00:00 00:00:00 Precious HEALTH 350.1.13.10 it y of [place] 4.2.7.2.686 Luis Alberto as ETHAN?BLEA [id number] [address] OFFICE [facility] 2022-03-26 2022-03-26 [facility] [id number] Univers 15:45:00 23:59:00 PRECIOUS ity of [facility] 2022-03-26 2022-03-26 Office [facility] 1.2.840.114 [id number] Univers 14:30:00 15:51:29 Visit Precious HEALTH 350.1.13.10 it y of [place] 4.2.7.2.686 Luis Alberto as ETHAN?BLEA [phone] [address] OFFICE [facility] 2022-03-01 2022-03-01 Bacilio Theodore [facility] [id number] Univers 00:00:00 00:00:00 Wondiful A HEALTH [id number] ity of [facility] [id number] Luis Alberto as ETHAN?BLEA [phone] [address] OFFICE [facility] 2022-02-09 2022-02-09 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 10 ity [facility] [place]2.[place].2.[place] [phone] Nv dical NAL 353 [facility] 2022-01-31 2022-01-31 [facility] [id number] Univers 15:00:00 15:29:55 SENDIL ity [facility] 2022-01-31 2022-01-31 Office Wilmer [facility] 1.2.840.114 [id number] Univers 15:00:00 15:29:55 Visit Pretty BLAKE 350.1.13.10 ity [facility] [place] [id number] Nv dical NAL 059 [facility] 2022-01-31 2022-01-31 Outpatient R WILMER [facility] [id number] Univers 15:00:00 15:00:00 SENDIL ity of [facility] 2022-01-31 2022-01-31 Outpatient [facility] [id number] Univers 15:00:00 15:00:00 SENDIL ity of [facility] 2022-01-31 2022-01-31 Outpatient [facility] [id number] Univers 15:00:00 15:00:00 SENDIL ity of [facility] 2022-01-31 2022-01-31 Orders Doctor ANATOLIY 1.2.840.114 [id number] Univers 00:00:00 00:00:00 Only Unassigned, NAKUL 350.1.13.10 ity of [place] [facility] 4.2.7.2.686 Luis Alberto as [phone] [address] 2022-01-15 2022-01-15 Orders Doctor ANATOLIY 1.2.840.114 [id number] Univers 00:00:00 00:00:00 Only Unassigned, NAKUL 350.1.13.10 ity of [place] [facility] 4.2.7.2.686 Luis Alberto as [phone] [address] 2022-01-01 2022-01-01 Outpatient R ANASTACIA [facility] [id number] Univers 14:30:00 15:23:56 PRECIOUS itlalita [facility] 2022-01-01 2022-01-01 Office Anastacia [facility] 1.2.840.114 [id number] Univers 14:30:00 15:23:56 Visit Precious HEALTH 350.1.13.10 it y of [place] 4.2.7.2.686 Luis Alberto as ETHAN?BLEA [id number] [address] OFFICE [facility] 2022-01-01 2022-01-01 Abstract Anastacia DCXI 1.2.840.114 [id number] Univers 00:00:00 00:00:00 Precious HEALTH 350.1.13.10 it y of [place] 4.2.7.2.686 Luis Alberto as ETHAN?BLEA [id number] [address] MEDICAL OFFICE [facility] 2021-12-28 2021-12-28 Patient Doctor [facility] 1.2.840.114 [id number] Univers 00:00:00 00:00:00 Secure Msg Unassigned, HEALTH 350.1.13.10 ity of [place] 4.2.7.2.686 Luis Alberto as ETHAN?BLEA [id number] [address] OFFICE [facility] 2021-12-28 2021-12-28 Telephone Anastacia [facility] 1.2.128.822 [id number] Univers 00:00:00 00:00:00 Precious HEALTH 350.1.13.10 it y of [place] 4.2.7.2.686 Luis Alberto as ETHAN?BLEA [id number] [address] MEDICAL OFFICE [facility] 2021-12-27 2021-12-27 Hospital [facility] 1.2.840.114 [id number] Univers 15:10:58 23:59:00 Encounter Precious [place] 350.1.13.10 [facility]y [facility] 4.2.7.2.[place] [id number] [facility] [address] 2021-12-27 2021-12-27 [facility] [id number] Univers 15:10:09 15:09:00 PRECIOUS ity [facility] 2021-12-27 2021-12-27 [facility] 1.2.840.114 [id number] Univers 15:00:00 15:09:00 Encounter Precious BLAKE 350.1.13.10 ity of [place] 4.2.7.2.686 [facility] [id number] [facility] [address] 2021-12-25 2021-12-25 Outpatient R WILMER [facility] [id number] Univers 16:00:00 16:00:00 SENDIL ity [facility] 2021-12-25 2021-12-25 Outpatient R WILMER [facility] [id number] Univers 16:00:00 16:00:00 SENDIL ity [facility] 2021-12-25 2021-12-25 Out[facility] [id number] Univers 14:30:00 14:30:00 PRECIOUS ity [facility] 2021-12-04 2021-12-04 Office [facility] 1.2.840.114 [id number] Univers 14:00:00 15:51:48 Visit Precious HEALTH 350.1.13.10 it y of [place] 4.2.7.2.686 Luis Alberto as ETHAN?BLEA [id number] [address] MEDICAL OFFICE [facility] 2021-12-04 2021-12-04 Outpatient R ANASTACIA [facility] [id number] Univers 14:00:00 15:51:48 PRECIOUS nickerson [facility] 2021-12-04 2021-12-04 [facility] [id number] Univers 14:00:00 14:00:00 PRECIOUS krishan [facility] 2021-10-20 2021-10-20 Bacilio [facility] 1.2.840.114 [id number] Univers 00:00:00 00:00:00 Wondiful A HEALTH 350.1.13.10 ity of [place] 4.2.7.2.686 Luis Alberto as ETHAN?BLEA [phone] Nv magno [address] OFFICE [facility] 2021-10-18 2021-10-18 Outpatient [facility] [id number] Univers 15:30:00 16:16:07 SENDIL adelaidalalita [facility] 2021-10-18 2021-10-18 Office [facility] 1.2.840.114 [id number] Univers 15:30:00 16:16:07 Visit Pretty BLA[place] 350.1.13.10 ity of [place].2.[place].2.[place] [phone] [facility] 059 [facility] 2021-10-11 2021-10-11 Outpatient R [facility] [id number] Univers 09:45:00 09:45:00 ity of [facility] 2021-10-05 2021-10-05 Emergency X CHAOMAN, [facility] ERT [id number] Univers 17:48:00 20:55:00 DEANNA ity [facility] 2021-10-05 2021-10-05 Emergency Chaoman, TRAUMA 1.2.840.114 [id number] Univers 17:48:00 20:55:00 [facility] 350.1.13.10 [place] [id number] [address] 2021-09-28 2021-09-28 Orders Doctor COPE 1.2.840.114 [id number] Univers 00:00:00 00:00:00 Only Unassigned, NAKUL 350.1.13.10 ity of [place] [facility] 4.2.7.2.686 Luis Alberto as [id number] [place] [address] [place] 2021-09-14 2021-09-14 Refill Bella [facility] 1.2.840.114 [id number] Univers 00:00:00 00:00:00 Michelle R HEALTH 350.1.13.10 ity of [place] 4.2.7.2.686 [place] [id number] [address] OFFICE BUILDING 2021-09-11 2021-09-11 Refill [facility] 1.2.840.114 [id number] Univers 00:00:00 00:00:00 Sendtracie BLAKE 350.1.13.10 ity of [place] 4.2.7.2.[place] [id number] Nv dical NAL [address] [facility] 2021-09-06 2021-09-06 Office Bella [facility] 1.2.840.114 [id number] Univers 16:00:00 16:05:23 Visit Michelle R Y HEALTH 350.1.13.10 ity of [facility] 4.2.7.2.[place] [id number] [address] 2021-09-06 2021-09-06 Outpatient R BELLA, [facility] [id number] Univers 16:00:00 16:05:23 MICHELLE ity of [facility] 2021-09-06 2021-09-06 Outpatient R BLANCO, [facility] [id number] Univers 16:00:00 16:05:23 MICHELLE ity of [facility] 2021-09-06 2021-09-06 Outpatient R BELLA, [facility] [id number] Univers 16:00:00 16:05:23 MICHELLE ity of [facility] 2021-09-06 2021-09-06 Outpatient R BELLA, [facility] [id number] Univers 16:00:00 16:00:00 MICHELLE ity of [facility] 2021-09-06 2021-09-06 Steam Locomotive Firer/Fireman [facility] UNIVERSIT 1.2.840.114 [id number] Univers 15:15:00 15:15:00 Visit Pretty GuillenMaiPedro LuisMai Y HEALTH 350.1.13. 10 ity of [facility] 4.2.7.2.[place] [id number] [facility] [address] 2021-09-06 2021-09-06 Steam Locomotive Firer/Fireman [facility]IVERSIT 1.2.840.114 [id number] Univers 15:15:00 15:15:00 Visit Pretty Guillen.H. Y HEALTH 350.1.13. 10 ity of [facility] 4[place]2.[place].2.[place] [id number] [facility] [address] 2021-09-03 2021-09-03 Refill [facility] 1.2.840.114 [id number] Univers 00:00:00 00:00:00 Pretty [facility] 350.1.13.10 ity of [place] 4.2.7.2.[place] [phone] [place] 452559 [facility] 2021-08-23 2021-08-23 Out[facility] [id number] Univers 05:22:00 10:08:00 SHANNAN nickerson o [facility] 2021-08-23 2021-08-23 [facility] SHAHID Rahman 1.2.424.934 [id number] Univers 05:22:00 10:08:00 Encounter Shannan MOTA 350.1.13.10 ity of [facility] 4.2.7.2.686 Luis Alberto as [phone] [facility] [address] 2021-08-23 2021-08-23 Outpatient [facility] [id number] Univers 05:22:00 10:08:00 SHANNAN nickerson o f [facility] 2021-08-23 2021-08-23 Surgery Josiah SHAHID 1.2.840.114 [id number] Univers 07:15:00 09:20:00 Shannan MOTA 350.1.13.10 i ty of [facility] 4.2.7.2.686 Luis Alberto as [phone] [facility] [address] 2021-07-24 2021-07-24 Office NAEEM Rahman 1.2.840.114 [id number] Univers 16:00:00 16:41:31 Visit Shannan Vale [facility] 350.1.13.10 ity [facility] [place].2.7.2.[place] [id number] [facility] [address] 2021-07-24 2021-07-24 [facility] [id number] Univers 16:00:00 16:41:31 SHANNAN krishan sarwat [facility] 2021-07-24 2021-07-24 [facility] [id number] Univers 16:00:00 16:41:31 SHANNAN krishan fam [facility] 2021-07-24 2021-07-24 [facility] [id number] Univers 16:00:00 16:00:00 SHANNAN krishan [facility] 2021-06-19 2021-06-19 Outpatient [facility] [id number] Univers 14:30:00 14:56:00 [facility] 2021-06-19 2021-06-19 Office [facility] 1.2.840.114 [id number] Univers 14:30:00 14:56:00 Visit Pretty [place] [facility].13.10 [facility] [place] [phone] [address] 2021-06-19 2021-06-19 Outpatient [facility] [id number] Univers 14:30:00 14:30:00 [facility] 2021-06-19 2021-06-19 Out[facility] [id number] Univers 13:15:00 13:15:00 SHANNAN krishan [facility] 2021-06-11 2021-06-11 Telephone Wilmer [facility] 1.2.062.514 [id number] Univers 00:00:00 00:00:00 Sendil [facility]. HEALTH 350.1.13.10 ity of [place] 4.2.7.2.686 Luis Alberto as PROFESSIO [phone] [facility] DURAND [address] [place] [address] OFFICE [facility] ONE 2021-06-04 2021-06-04 Telephone Suzi [facility] 1.2.840.114 [id number] Univers 00:00:00 00:00:00 Wondiful A HEALTH 350.1.13.10 ity of [place] 4.2.7.2.686 Luis Alberto as ETHAN?BLEA [phone] Nv magno WHARTON [address] [place] [address] OFFICE [facility] 2021-05-31 2021-05-31 Steam Locomotive Firer/Fireman Lab, Ang - Db [facility] 1.2.840.1 14 [id number] Univers 16:15:00 16:30:00 Visit Melissa Theodore A HEALTH 350.1.13.1 0 ity of [place] 4.2.7.2.686 Luis Alberto as ETHAN?BLEA [phone] Nv magno WHARTON [address] [facility] OFFICE [facility] 2021-05-31 2021-05-31 Outpatient R SUZI [facility] [id number] Univers 15:45:00 16:11:56 WONDIFUL ity o f [facility] 2021-05-31 2021-05-31 Office [facility] 1.2.840.114 [id number] Univers 15:45:00 16:11:56 Visit Wondiful A HEALTH 350.1.13.10 ity of [place] 4.2.7.2.686 Luis Alberto as ETHAN?BLEA [id number] Nv magno WHARTON [address] [place] [address] OFFICE [facility] 2021-05-30 2021-05-30 Refill [facility] 1.2.840.114 [id number] Univers 00:00:00 00:00:00 Wondiful A HEALTH 350.1.13.10 ity of [place] 4.2.7.2.686 Luis Alberto as PROFESSIO [id number] Nv magno DURAND [address] [place] [address] OFFICE [facility] ONE 2021-05-04 2021-05-04 Refill [facility] 1.2.840.114 [id number] Univers 00:00:00 00:00:00 Wondiful A HEALTH 350.1.13.10 ity of [place] 4.2.7.2.686 Luis Alberto as PROFESSIO [phone] [address] OFFICE [facility] ONE 2021-05-03 2021-05-03 [facility] 1.2.840.114 [id number] Univers 00:00:00 00:00:00 Wondiful A HEALTH 350.1.13.10 ity of [place] 4.2.7.2.686 Luis Alberto as PROFESSIO [id number] [address] OFFICE [facility] ONE 2021-04-05 2021-04-05 [facility] 1.2.840.114 [id number] Univers 13:58:34 23:59:00 Encounter Pretty Blake 350.1.13.10 ity of [place].2.[place] [phone] [facility] 843 [facility] 2021-04-05 2021-04-05 Out[facility] [id number] Univers 14:00:00 14:00:00 [facility] 2021-04-03 2021-04-03 Outpatient [facility] [id number] Univers 09:30:00 09:30:00 MAURILIO ity [facility] 2021-04-03 2021-04-03 Refcarie [facility] 1.2.840.114 [id number] Univers 00:00:00 00:00:00 Wondiful A Health 350.1.13.10 ity of [place] 4.2.7.2.686 Luis Alberto as Professio [phone] [address] Office [facility] One 2021-03-13 2021-03-13 Office NAEEM Rahman 1.2.840.114 [id number] Univers 14:40:07 16:03:40 Visit Shannan HEALTH 350.1.13.10 ity of [facility] 4.2.7.2.[place] [id number] [address] 2021-03-13 2021-03-13 Office STEPHANIE Rahman 1.2.840.114 [id number] Univers 14:40:07 16:03:40 Visit Shannan Lalita JONES 350.1.13.10 ity of [facility] 4.2.7.2.[place] [id number] [address] 2021-03-13 2021-03-13 Outpatient R JOSIAH [facility] [id number] Univers 14:30:00 14:30:00 SHANNAN nickerson o f [facility] 2021-03-10 2021-03-10 Bacilio [facility] 1.2.840.114 [id number] Univers 00:00:00 00:00:00 Wonliam [facility] 350.1.13.10 ity of [place] 4.2.7.2.686 Luis Alberto as Professio [id number] [address] Office [facility] One 2021-03-08 2021-03-08 Telephone Wilmer DCXI 1.2.228.405 [id number] Univers 00:00:00 00:00:00 Sendtracie Blake 350.1.13.10 ity of [place].2.[place] [phone] [place] [address] [facility] 2021-03-06 2021-03-06 Office [facility] 1.2.840.114 [id number] Univers 09:34:37 10:34:22 Visit Pretty Blake 350.1.13.10 ity of [place] 4.2.[place].2.[place] Profess[place] [id number] [place] [address] [facility] 2021-03-06 2021-03-06 Outpatient R WILMER [facility] [id number] Univers 09:30:00 09:30:00 SENDIL krishan of [facility] 2021-03-06 2021-03-06 Orders Doctor COPE 1.2.840.114 [id number] Univers 00:00:00 00:00:00 Only Unassigned, NAKUL 350.1.13.10 ity of [place] [facility] 4.2.7.2.686 Luis Alberto as [phone] [address] 2021-01-30 2021-01-30 Outpatient R WILMER [facility] [id number] Univers 00:00:00 00:00:00 SENDIL ity [facility] 2021-01-18 2021-01-18 Outpatient R WILMER [facility] [id number] Univers 09:00:00 09:00:00 [facility] 2021-01-09 2021-01-09 Outpatient R JOSIAH [facility] [id number] Univers 14:45:00 14:45:00 SHANNAN nickerson o [facility] 2021-01-09 2021-01-09 Outpatient R JOSIAH [facility] [id number] Univers 14:45:00 14:45:00 SHANNAN nickerson o [facility] 2021-01-02 2021-01-02 Outpatient R SUZI [facility] [id number] Univers 10:30:00 10:30:00 WONDIFUL itlalita o [facility] 2020-12-19 2020-12-19 Outpatient R LESLEY [facility] [id number] Univers 11:00:00 11:00:00 RITESH krishan o [facility] 2020-12-07 2020-12-07 Outpatient R DARNELL [facility] [id number] Univers 07:00:00 07:00:00 [facility] 2020-11-28 2020-11-28 Outpatient R OGNAVEEN [facility] [id number] Univers 09:15:00 09:15:00 [facility]IO [facility] 2020-11-14 2020-11-14 Outpatient R [facility] [id number] Univers 08:00:00 08:00:00 [facility] 2020-10-31 2020-10-31 Outpatient [facility] [id number] Univers 13:00:00 13:00:00 SENDIL [facility] 2020-10-03 2020-10-03 Outpatient [facility] [id number] Univers 09:20:00 09:20:00 RITESH ity o f [facility] 2020-07-27 2020-07-27 Outpatient R SUZI, [facility] [id number] Univers 15:45:00 15:45:00 WONDIFUL ity o f [facility] 2020-07-18 2020-07-18 Outpatient R WILMER, [facility] [id number] Univers 14:00:00 14:00:00 SENDIL ity [facility] 2020-07-11 2020-07-11 Outpatient R KAYLEY, [facility] [id number] Univers 09:00:00 23:59:00 QIANGJUN ity o f [facility] 2020-07-07 2020-07-07 Outpatient R GUILLEN, [facility] [id number] Univers 11:30:00 11:30:00 SENDIL ity [facility] 2020-06-29 2020-06-29 Outpatient R SUZI, [facility] [id number] Univers 11:00:00 11:00:00 WONDIFUL ity o f [facility] 2020-04-04 2020-04-04 Outpatient R SUZI [facility] [id number] Univers 10:00:00 10:00:00 WONDIFUL ity o f [facility] 2020-03-28 2020-03-28 Outpatient R SUZI [facility] [id number] Univers 10:30:00 10:30:00 WONDIFUL ity o f [facility] 2020-03-09 2020-03-09 Outpatient R SUZI [facility] [id number] Univers 08:00:00 08:00:00 WONDIFUL ity o f [facility] 2020-02-09 2020-02-09 Refill [facility] 1.2.840.114 [id number] 00:00:00 00:00:00 Wondiful A Health 350.1.13.10 [place] 4.2.7.2.686 Elmer [phone] nal [address] One 2020-02-01 2020-02-01 Telephone Wilmer [facility] 1.2.223.419 [id number] 00:00:00 00:00:00 Sendil K.Pedro LuisMai Blake 350.1.13.10 [place] 4.2.7.2.686 Professio [phone] [facility] 059 [facility] 2020-01-31 2020-01-31 [facility] 1.2.033.403 [id number] 00:00:00 00:00:00 Sendtracie RhodaMai [place] 350.1.13.10 [place] 4.2.7.2.686 Professio [phone] [address] 2020-01-28 2020-01-28 Orders Doctor ANATOLIY 1.2.840.114 [id number] 00:00:00 00:00:00 Only Unassigned, NAKUL 350.1.13.10 [place] [facility] 4.2.7.2.686 [id number] 009 2020-01-24 2020-01-24 [facility] 1.2.899.977 [id number] 00:00:00 00:00:00 Pretty LynchPedro LuisMai [facility] 350.1.13.10 [place] 4.2.7.2.686 [place] [phone] [place] [address] Office [facility] 2020-01-20 2020-01-20 Steam Locomotive Firer/Fireman Josee Gonzalez [facility] 1.2.840.114 [id number] 08:17:04 08:32:04 Visit Lab Main Lou 350.1.13.10 [place] 4.2.7.2.686 Professio [id number] [address] 2020-01-20 2020-01-20 Outpatient R WILMER [facility] [id number] [facility] 08:15:00 08:15:00 SENDTRACIE nickerson [facility] 2020-01-20 2020-01-20 Orders Doctor ANATOLIY 1.2.840.114 [id number] 00:00:00 00:00:00 Only Unassigned, NAKUL 350.1.13.10 [place] [facility] 4.2.7.2.686 [id number] 009 2019-12-23 2019-12-23 Telemedici [facility] 1.2.840.114 [id number] 08:30:34 10:02:10 ne Visit Pretty Blake 350.1.13.10 [place] 4.2.7.2.686 [facility] [phone] nal 059 [facility] 2019-12-23 2019-12-23 Outpatient R GUILLEN, [facility] [id number] Univers 09:00:00 09:00:00 SENDIL krishan [facility] 2019-12-09 2019-12-09 Outpatient R JOSIAH [facility] [id number] Univers 09:00:00 09:00:00 SHANNAN krishan fam drew [facility] 2019-11-16 2019-11-16 Outpatient R JOSIAH [facility] [id number] Univers 08:30:00 08:30:00 SHANNAN fam drew [facility] 2019-09-21 2019-09-21 Outpatient R JOSE [facility] [id number] Univers 10:00:00 10:00:00 LEO ity [facility] 2019-09-09 2019-09-09 Outpatient R SUZI [facility] [id number] Univers 11:00:00 11:00:00 MELISSA krishan russell [facility] 2019-08-12 2019-08-12 Outpatient R JOSIAH [facility] [id number] Univers 08:30:00 08:30:00 HSANNAN krishan fam drew [facility] 2019-06-29 2019-06-29 Outpatient R WILMER [facility] [id number] Univers 10:45:00 10:45:00 SENDTRACIE [facility] 2019-04-08 2019-04-08 Outpatient R WILMER [facility] [id number] Univers 07:53:33 07:53:00 SENDTRACIE lalita [facility] 2019-03-23 2019-03-23 Outpatient R JOSE [facility] [id number] Univers 10:00:00 10:26:47 LEO [facility] 2019-02-08 2019-02-09 Outpatient R JOSE [facility] NAHOMY [id number] Univers 04:57:00 17:49:00 LEO krishan [facility] 2019-02-05 2019-02-05 Emergency [facility] ERT [id number] Univers 12:14:28 15:52:00 , VITALY nickerson [facility] 2018-12-15 2018-12-15 Outpatient R LA, [facility] [id number] Univers 10:00:00 11:12:44 JOSE L nickerson [facility] 2018-12-10 2018-12-10 Outpatient R SUZI, [facility] [id number] Univers 10:30:00 10:30:00 MELISSA nickerson o drew [facility] 2017-05-27 2017-05-27 Outpatient R SREE, [facility] NAHOMY [id number] Univers 10:47:00 20:35:00 BLAZE [facility] Results Test Description Test Time Test Comments Results Result Comments Source POCT GLUCOSE (AUTOMATED) 2022-05-04 02:42:11 Test Item Value Reference Range Interpretation Comme nts POCT GLU (test code = 9205539797) 134 mg/dL 70-110 H Lab Interpretation (test code = 27084-5) Abnormal [facility] GLUCOSE (AUTOMATED)2022-05-03 22:29:04 Test Item Value Reference Range Interpretation Comments POCT GLU (test code = [id number]) 148 mg/dL 70-110 H Lab Interpretation (test code = Abnormal 35031-9) [facility] GLUCOSE (AUTOMATED)2022-05-03 20:28:48 Test Item Value Reference Range Interpretation Comments POCT GLU (test code = 7378562569) 53 mg/dL 70-110 L Lab Interpretation (test code = Abnormal 63826-8) [facility] GLUCOSE (AUTOMATED)2022-05-03 03:10:42 Test Item Value Reference Range Interpretation Comments POCT GLU (test code = 5555663798) 99 mg/dL 70-110 Lab Interpretation (test code = Normal 86986-4) [facility] GLUCOSE (AUTOMATED)2022-05-02 17:34:42 Test Item Value Reference Range Interpretation Comments POCT GLU (test code = 9350047112) 136 mg/dL 70-110 H Lab Interpretation (test code = Abnormal 54985-1) [facility] GLUCOSE (AUTOMATED)2022-05-02 14:28:23 Test Item Value Reference Range Interpretation Comments POCT GLU (test code = 4731924871) 109 mg/dL 70-110 Lab Interpretation (test code = Normal 61132-1) [facility] GLUCOSE (AUTOMATED)2022-05-02 02:07:55 Test Item Value Reference Range Interpretation Comments POCT GLU (test code = 1001119440) 119 mg/dL 70-110 H Lab Interpretation (test code = Abnormal 21789-4) [facility] GLUCOSE (AUTOMATED)2022-05-01 23:37:01 Test Item Value Reference Range Interpretation Comments POCT GLU (test code = 116 mg/dL 70-110 H Notifi ed Provider [id number]) Lab Interpretation (test Abnormal code = 07989-6) [facility] GLUCOSE (AUTOMATED)2022-05-01 19:33:03 Test Item Value Reference Range Interpretation Comments POCT GLU (test code = 114 mg/dL 70-110 H Notifi ed Provider [id number]) Lab Interpretation (test Abnormal code = 82024-9) [facility] METABOLIC PANEL (NA, K, CL, CO2, GLUCOSE, BUN, CREATININE, CA)2022-05-01 11:15:51 Test Item Value Reference Range Interpretation Comments NA (test code = 128 mmol/L 135-145 L 6529921701) K (test code = 3.9 mmol/L 3.5-5.0 7774208560) CL (test code = 92 mmol/L 98-108 L 3721482949) CO2 TOTAL (test code = 29 mmol/L 23-31 1694400066) AGAP (test code = 2-16 8254825978) BUN (test code = 34 mg/dL 7-23 H 1061538237) GLUCOSE (test code = 122 mg/dL 70-110 H 0913590180) CREATININE (test code = 5.81 mg/dL 0.60-1.25 H 9347990461) CALCIUM (test code = 9.3 mg/dL 8.6-10.6 1981234279) eGFR (test code = mL/min/1.73m2 5944187524) MARINO (test code = MARINO) Association of [...] tests). Lab Interpretation Abnormal (test code = 73186-1) [facility]51 Test Item Value Reference Range Interpretation Comments MAGNESIUM (test code = 3925613832) 2.6 mg/dL 1.7-2.4 H Lab Interpretation (test code = Abnormal 36052-5) [facility] 11:15:51 Test Item Value Reference Range Interpretation Comments PHOSPHORUS (test code = 0747694094) 4.5 mg/dL 2.5-5.0 Lab Interpretation (test code = Normal 08397-7) [facility] WITHOUT [id number] 10:39:07 Test Item Value Reference Range Interpretation Comments WBC (test code = 6690-2) See_Comment [A utomated message] The system [employer] generated this result transmit rudolph reference range : 4.20 - 10.70 10*3/?L. The reference range was not used to interpret this result as normal/abnormal . RBC (test code = 789-8) See_Comment L [Au tomated message] The system [employer] generated this result transmit rudolph reference range [...] 777-3) See_Comment [Au tomated message] The system [employer] generated this result transmit rudolph reference range : 150 - 328 10*3/?L. The reference range was not used to interpret this result as normal/abnormal . MPV (test code = 11.0 fL 9.8-13.0 70997-9) RDW-CV (test code = 15.3 % 12.1-15.4 788-0) RDW-SD (test code = 50.4 fL 38.5-51.6 26921-2) NRBC x10^3 (test code = See_Comment [Au tomated message] 1822163277) The system [employer] generated this result transmit rudolph reference range : 10*3/?L. The reference range was not used to interpret this result as normal/abnormal . NRBC/100 WBC (test code See_Comment [Au tomated message] = 2976009421) The system [facility] generated this result transmit rudolph reference range : 0.0 - 10.0 /100 WBC s. The reference r adama was not used to interpret this result as normal/abnormal . IPF % (test code = 4693746822) Lab Interpretation (test Abnormal code = 96817-2) [facility] GLUCOSE (AUTOMATED)2022-05-01 01:09:21 Test Item Value Reference Range Interpretation Comments POCT GLU (test code = 5529378615) 68 mg/dL 70-110 L Lab Interpretation (test code = Abnormal 69109-7) [facility] GLUCOSE (AUTOMATED)2022-04-30 21:04:09 Test Item Value Reference Range Interpretation Comments POCT GLU (test code = 75 mg/dL 70-110 Notifi ed Provider [id number]) Lab Interpretation (test Normal code = 65157-2) [facility]22-[facility]-30 17:42:13 Test Item Value Reference Range Interpretation Comments POCT GLU (test code = 107 mg/dL 70-110 Notifi ed Provider [id number]) Lab Interpretation (test Normal code = 03142-1) [facility]-30 13:50:31 Test Item Value Reference Range Interpretation Comments POCT GLU (test code = 92 mg/dL 70-110 Notifi ed Provider [id number]) Lab Interpretation (test Normal code = 38348-7) [facility]2022-[facility]-30 01:29:31 Test Item Value Reference Range Interpretation Comments POCT GLU (test code = 7498655644) 107 mg/dL 70-110 Lab Interpretation (test code = Normal 41643-0) [facility]2022-04-29 20:55:32 Test Item Value Reference Range Interpretation Comments POCT GLU (test code = 7077424169) 80 mg/dL 70-110 Lab Interpretation (test code = Normal 29308-2) [facility]2022-04-29 13:59:58 Test Item Value Reference Range Interpretation Comments POCT GLU (test code = 3218732327) 70 mg/dL 70-110 Lab Interpretation (test code = Normal 82477-4) [facility]:57 Test Item Value Reference Range Interpretation Comments POCT GLU (test code = 4607536234) 90 mg/dL 70-110 Lab Interpretation (test code = Normal 99494-5) [facility] 21:30:52 Test Item Value Reference Range Interpretation Comments POCT GLU (test code = 113 mg/dL 70-110 H Notifi ed Provider [id number]) Lab Interpretation (test Abnormal code = 86675-8) [facility] GLUCOSE (AUTOMATED)2022-04-28 17:28:27 Test Item Value Reference Range Interpretation Comments POCT GLU (test code = 108 mg/dL 70-110 Notifi ed Provider [id number]) Lab Interpretation (test Normal code = 92015-8) [facility] 13:57:06 Test Item Value Reference Range Interpretation Comments POCT GLU (test code = 88 mg/dL 70-110 Notifi ed Provider [id number]) Lab Interpretation (test Normal code = 66225-1) [facility]2022-[facility]-28 03:36:17 Test Item Value Reference Range Interpretation Comments POCT GLU (test code = 3922849839) 103 mg/dL 70-110 Lab Interpretation (test code = Normal 27476-9) [facility] GLUCOSE (AUTOMATED)2022-04-27 23:21:09 Test Item Value Reference Range Interpretation Comments POCT GLU (test code = 6068293317) 71 mg/dL 70-110 Lab Interpretation (test code = Normal 61824-9) [facility]22-[facility]-27 23:02:58 Test Item Value Reference Range Interpretation Comments POCT GLU (test code = 3258944479) 66 mg/dL 70-110 L Lab Interpretation (test code = Abnormal 99318-2) [facility] 18:06:34 Test Item Value Reference Range Interpretation Comments POCT GLU (test code = 5938382937) 75 mg/dL 70-110 Lab Interpretation (test code = Normal 94561-2) [facility] 13:23:55 Test Item Value Reference Range Interpretation Comments POCT GLU (test code = 2039687131) 70 mg/dL 70-110 Lab Interpretation (test code = Normal 35542-4) [facility] 02:11:35 Test Item Value Reference Range Interpretation Comments POCT GLU (test code = 3417223117) 100 mg/dL 70-110 Lab Interpretation (test code = Normal 69712-1) [facility] 23:13:24 Test Item Value Reference Range Interpretation Comments POCT GLU (test code = 120 mg/dL 70-110 H Notifi ed Provider [id number]) Lab Interpretation (test Abnormal code = 85607-6) [facility] 20:31:29 Test Item Value Reference Range Interpretation Comments POCT GLU (test code = 77 mg/dL 70-110 Notifi ed Provider [id number]) Lab Interpretation (test Normal code = 79924-6) [facility]22-[facility]-26 15:28:09 Test Item Value Reference Range Interpretation Comments POCT GLU (test code = 9321195835) 86 mg/dL 70-110 Lab Interpretation (test code = Normal 31005-6) [facility]2022-[facility]-26 01:53:21 Test Item Value Reference Range Interpretation Comments POCT GLU (test code = 4422029307) 136 mg/dL 70-110 H Lab Interpretation (test code = Abnormal 80739-0) [facility]22-[facility]-25 22:35:47 Test Item Value Reference Range Interpretation Comments POCT GLU (test code = 8268788054) 140 mg/dL 70-110 H Lab Interpretation (test code = Abnormal 52501-0) [facility]-25 18:11:27 Test Item Value Reference Range Interpretation Comments POCT GLU (test code = 7546061495) 138 mg/dL 70-110 H Lab Interpretation (test code = Abnormal 75136-8) [facility] 14:25:21 Test Item Value Reference Range Interpretation Comments POCT GLU (test code = 6661052815) 114 mg/dL 70-110 H Lab Interpretation (test code = Abnormal 53750-9) [facility]-04-25 04:01:33 Test Item Value Reference Range Interpretation Comments POCT GLU (test code = 6137278597) 104 mg/dL 70-110 Lab Interpretation (test code = Normal 05485-4) [facility]2022-04-25 02:47:09 Test Item Value Reference Range Interpretation Comments POCT GLU (test code = 6907407064) 96 mg/dL 70-110 Lab Interpretation (test code = Normal 86829-4) [facility]-25 02:08:15 Test Item Value Reference Range Interpretation Comments POCT GLU (test code = 1583889400) 58 mg/dL 70-110 L Lab Interpretation (test code = Abnormal 57995-1) [facility] GLUCOSE (AUTOMATED)2022-04-24 22:30:29 Test Item Value Reference Range Interpretation Comments POCT GLU (test code = 5777684306) 182 mg/dL 70-110 H Lab Interpretation (test code = Abnormal 37633-0) [facility] GLUCOSE (AUTOMATED)2022-04-24 19:18:06 Test Item Value Reference Range Interpretation Comments POCT GLU (test code = 1895125738) 99 mg/dL 70-110 Lab Interpretation (test code = Normal 26066-9) [id number] 19:09:28 Test Item Value Reference Range Interpretation Comments PostBUN (test code = 9982621342) 9 mg/dl 7-23 Lab Interpretation (test code = Normal 20572-7) [facility] GLUCOSE (AUTOMATED)2022-04-24 18:07:17 Test Item Value Reference Range Interpretation Comments POCT GLU (test code = 0936851040) 88 mg/dL 70-110 Lab Interpretation (test code = Normal 34810-0) [facility] GLUCOSE (AUTOMATED)2022-04-24 15:28:40 Test Item Value Reference Range Interpretation Comments POCT GLU (test code = 4154883387) 78 mg/dL 70-110 Lab Interpretation (test code = Normal 48734-5) [facility] GLUCOSE (AUTOMATED)2022-04-24 01:29:30 Test Item Value Reference Range Interpretation Comments POCT GLU (test code = 0766331636) 103 mg/dL 70-110 Lab Interpretation (test code = Normal 98780-0) [facility] GLUCOSE (AUTOMATED)2022-04-23 22:18:03 Test Item Value Reference Range Interpretation Comments POCT GLU (test code = 110 mg/dL 70-110 Notifi ed Provider [id number]) Lab Interpretation (test Normal code = 15754-3) [facility] [id number] 19:22:04 Test Item Value Reference Range Interpretation Comments Case Report (test code Surgical Pathology ? ? = [id number]) ?Case: [id number] ? Authorizing Provider: ?Delfino Granado MD ? ? ?Collected: ? 04/17/2022 1242 ?Ordering Location: ? ? [facility] OR ? Received: ?04/17/2022 1450 ? Department ? Pathologist: ? Tonie, ? MD Ashwini ?Specimen: ? ?LEG, RIGHT, BELOW KNEE ? Final Diagnosis (test a8ohxAXsQNNcw3epZXXjxT code = 7924715028) FuZzEwMzNcZnRuYmpcdWMx IHtccnRmMVxlcGljMTAxMD FgIZ5cgRpnfLu3oUgdNQLf kfN2bXLsIJfct1gjRAR2g6 oykdwqZHZxWAprUi4weXEf aDasPcXwTORsRDj7pT97AT JifM3xhGFdEDm4XLKvqFMm uxKvOhGoGFBiiOJrcML6GE NyXT6tlyqxWBjqVSsxMLPj xwK2JVMgpGUoS5HxMTJhAU 0wfonbYHB6EKxcPPLvRSO2 WoOmACEhn3Opqta2PjYzyS FyZFxwbGFpblxmczIwXHBh ipllBHAxKM4OXBxeAWHHT9 hULCBCRUxPVyBLTkVFIEFN MXCELJEET916NTKhcqNdII ZtWZ4qC8XPQ5ZWLr6MZoDI FQWHW4ZJIbEBRvIUU9nIQN CWRGLKL7PFANYKY4YTLAZi tJBuNZWdQOOxODHMK88SLS qQCTzuYJXPQ5IFKBIPZStd YXIgICAgICAtIEFUSEVST1 BEEWQJO9UPZbEZSLNCSTeV ZzRQPL5YCeQAHEWZYT1TS7 lTIFVQIFRPIDkwJSBBVCBU VTRpHQEEY5iPJEVffnCxER NwYA9uGBGGLDqRXMlOGT3T Fz9LUCAOTHVyB60UBNDJUK YYZKVzN8BOD6bEMAyoBJTS J3fTL7opWNHlMAGnTWKjHN YZJbVnLsQIIDKNXU0SLM3T UkdJTiBJUyBORUdBVElWRS UNQ0GvT5URLX4ERSGHBXSJ J6uxTSUvrRKdLOTgRzGyPH SlfTiwII1hP8jzynszHQ4C IDExLzgvMjAyMiAxMDoyNS BBTVxwYXJcZnMyMFxwYXJ9 i4jpcCUdFHAfxIFiIyWtCW CmSPFcx0onJCUfxWPzSmAm MzNcZnRuYmpcdWMxXGRlZm Rso9ogb534sATca1wdDNVr AvI0dYItXQDpwMmyjho2vZ pcGvPeOSYvs0uhguWaPfQy JCOqNNRjTKEwcWWiI975DC HjUGisx1ilj5RfSDWuxTZl p8J0VUBEAItuQhGmS418j9 fre0dabuDedJF2VBHiRLU5 TRzegyQtvsT2VHoavDPfSf D1YBsdwcOyYEzkgkLezjSd Kyi9PFIrU658QFK7aEknr6 vtLPX4OSBvVCQxElytJc3r dXBkU045IJWnQRGNBIVlsV y2PDQeiaYvesQdhAUMk901 R980p7gjWNFejbGfnYeWxs zxo8uoU176IEXgxQWwahWa YfGmPRYlkQAafAB2WJXeUS 5cwyrpQVvxWEaxYIHwojF0 NUUihVGeV5OhOLEkBN7wmb mtURI8URhaBMAvJKF7IsCv HXFks5Hmglx8PqQoxp5bmu 00PCA6r4MfaLgsWKT4SZZ3 NmFlBk1pvVAsUPXlRJ3hWr CfnTDrOHEncw67dXljUCtk rtSooI3zVvSxQTHtpYBsWE GaCF4fcRNzAHChiW8kdftn XHBnYnJkcmhlYWRccGdicm YcDz1gcRyqADP9NXlbT1rt rA8oXjQ3MGphP1wopH8uQA w9NJlxlKS7UTBrhP8nYF2y xzqky9qqDFnrOMjsUOStny A9qhT9OUZcdRCyV5LsnB2y MMQzLR2utogei6wrHYZ0AK xhZSLjUNW5JxNtPILpg9Zh qno1GmSaj8CluKNrVIonP7 3cj824VUOufuWbP5itlCUd qowfxHFrvepfPFlklaP9VF FsXHBsYWluXGYxXGZzMjBc bGFuZzEwMzNcaGljaFxmMV tnVwSgFOZdXEaxD0uoKrDp A7TgDUMiPlQmdHZkMIpgrO V8QPBnJNCzj51wvFq5OIKf auybg4DsLUFvfNDzyIQxhE 2xrpZfw2vtINDmRUEjKIOx W9MgBUW5nHPmDQBwtLJmsB L3GG9nhyOxPK3bAROuKjjd cmVzaWRlbnRzLCBmZWxsb3 voQT3xONFbyTpcuO1lpNH7 WQMlc1voaBXvpCBos8wzm2 UgbmFtZShzKSBtYXkgYXBw RQSvIV3rYAKftSVxoyJvt3 T9BnshgZDqkcuePfwpyzD6 SOgskmahOJYsEDgjC4mrJd CuJZTvgJfgNohxc1EjVJMu XGZzMjhccGFyfX0= Clinical Information PAD (peripheral artery (test code = disease) [I73.9] 8278392449) Gross Description (test f1eknHWrSOSgmGSxTBPlXS code = 4929345119) vysqKgLMAsjIFlR6Xcjclh RJwzWQ5sYQ3mnMkqbIIalD NrPYPfWpVvd9cqh809iIBo z1wfHKKIjkhcfWo0zBweL5 3lq1D8IsjaL83yfBEjSGT0 FZMlTWHfzWOnPAIgEEW8SO SeuPPjW1nzCOAfVB1lsxfd BDmzBImfKXWfoML0LYRbtC NvO9EtDPAmSVapMMQlmnj8 YtGoLj4hzUGcwWbbWWzhQx kzxTote8MjnEYpRNdlFSTd XSMgESpbqfryWDy3KCDtVK nesHDiBF2oeCgdNezysZqu p9OruRCgBLhlPORnRPFjZR tmIVNdQ5DPIDIoDLUiSsEw DLOxHKx0PRpgN7SHGDTdPD HnSTw8DNyaOrD4KJf9IRCR Mw2ySOC7TohkRnV6BlG5ZM ExNiBcXHQgMiBcXGZsIFxc ZiBBcmlhbCBcXGZzIDEwIF nnanT3WBOnpmJrfWzemY9y GoLwLXMPABAMWJ5OKsQDCK BhclxmczIyIFNwZWNpbWVu QAYhcLEshuAmCRv9VNGwOh Mho9wjfD5oACBfRPCrFioj yBO4YAQuOQFqYpClSUEdoL VkIHdpdGggdGhlIHBhdGll orMsepLfAL8oLUMITPAokV 6yMPMuAvZaQRpoHOXfS8j6 WFMfIEymij6lpzFrOrspJI 2wPJQrrnRov3FqQK3yBOBk Q6PesI5jpp53ihWqvOcddK JwATbhrqX8cHJqg58hENCp kJC8gJZ5vU6rJINbVJWzrS VrQElxBDUnD7Nda14uzEVy L5luVZMwLSpkPLgyKdSnWS RjwMeydGAfoV89ip62l7Kw EkCvHLOypPomc8m2dGIgXP MlRDRshVceaLErddVaT3Bn QBNvVADnC8Wtg13ydYVfK2 myGOCcwk74J5kyzFqgDBVy HgriPKEyCMXrrBF3xDLoOD HVxVBhHc7yJGJwTXWbC2Bx p49ylSXgG5enRNA0xMQyQO XjOu02VACgLXUqw9gsmZSz IHRvIHRoZSBhbnRlcmlvci Num1ocQVAcCJBel8F4CQNw f4O9CBQdPKLsN4Alc95ctT MyR6qySQEhVVYtLX8eVHFs TLUqv6aiaHKnAZBgEYAwDM Yoz0T1AUHgl1Tku9tczuOu uwMcm06fsKR9tSEwwMBqsx UnVQD5kT8aOB4xhrpabs3w MLAtSJVhn726YYmbxeDtYM 5iyWjxMaZtxgjxDuJ0p1Sz WIHmZPsoB0i3UWLjlXzvUV RoaXJkLWZpZnRoIHRvZXMg s2pdL3popPX0ZJS3vQnkqp itupRiT7CtSETjnk56VIdl m9iioaMxuYHaRVOTvUOnJT TzdsCcCHOzjR5gEVOwDXX9 SZn1MxYovHL0QuJbK40vAK tjeUwmv9xlF9e1nIbujFll ZXJhdGVkIGJvcmRlcnMgYX EkdUlxFSAuzdJ8DWEwTHRd FCDzwjYmFNznuOMxXU5nsU RhdGlvbiBzaXRlIHdpdGgg UZhbc0CsXZM9NT2ukCLrwA 05VKWidGzwiUx4CTruwE2v txtpJ3fxKQJfNwXhmYrzo7 VlLiAgVGhlcmUgaXMgYSBs xO4wEPOqCIA7cwqzN5AoZR aku4mkhhIsYGNaLoB0LAMu CLHcnOfjl99fdDhgVF3eAB upmDIqjLRnYAJiQD9rPRJo NNC6uWPibcHvUMdos1bvH6 qjcM77e5g4GGEhwGccHTEc zM1udkBjHVU5gV3mJX3brp cesaPnioGamYOft7ZaYDRl Ox0wQYKyUXSql62blQaxYN LtisVvtnJyOYA5wY5vWD9r yvvdal2sCNY3ZQQlIXCeVP AeL2Rhc28fkHXfA0olTZEh OYSretZzjowgzaA2rQQkHD edMUN2IBJ5OVstQGMnwVDu ePX3iVPbq5K1SSTklLMlXl ifLFOam96qZX6kFNQjBPLq q7T2WZOwe0IhsIrcgZZuFY YhaAOgmBZiOAWqRODgsu94 sI6wuLRggOO2ZCSlz1Qtyq 7gcGQzQO4sXFBeANAsGFtg USRij0bmtAexiYgyPESpmi RpYWwgdHVidWxhciBncmFm sTRhhCD6bBSzbJ2quVMkbV 1pJELvKhjtfEBtWIWdR0Kr g97emGApY9hkVfNdXNNlpw EuQSLeDFlmeQFeSRY2lL5x aY2bBMRpXNVttaZdqjiqwk Y5tYFaQNadXHA1DIR2HWsa DVIbeSObnAO9pFJtz2G9XD VanRKrOhuyFZPfk36jQZKg BCR5zYRjkA6vgPZarV4iOJ RpYmlhbCBhcnRlcnkgaXMg U0FqV9wzhVUhYJPgHSIkKZ TzFJYtMAE7KG8op4dcHwCd VeXjabUxFW84PZCruvXvd8 CoeUgaanTwZFUmTXM0To4i sFLsGHKapyMGVR8TCdvyLg 9brI57dJ3rJDMhM2VmK1yk aWNhdGlvbiBvZiBBMiwgQT RzPVI0ZVStcoAuGEdvJSZf qysyPXHvJD3fEKSoWJD9QY IqlVZpDV57JGGgw0VdjLvf aWFsIGFydGVyeSwgYmxhY2 kreS6znQCnlG6vSPYfPbkj bCBhcnRlcnlccGFyXHBhci ZUAXG3aO0fABAgYEG3LYLa lxXSUEjoM0vgrdHzwcMqx1 9leFI4gWIzyUHuifBqIIT0 cK5kBT4lwdcwpnknEW6oKc DhIVvqvpVdrgZuCN23WDVk gfWaFNMyGVtpC5m3IRKqfA cjEHOaJPcvc0bclcjjMAPi ANPmWYV2NMQfSwyxBTWab3 NvaIjimpJiHUAowS8uGBMf r2KpzGOhUKDqtxBrIFRzUT BlbnRpcmVseVxwYXIgQTQ6 LBAwcZXdiR9gHBHxAMJkx8 F6UUGww3PbrFrhjEWjCPWe fLUriWOjRUVxR1Cvq19kjT QrJ1eob3uaMIRkEJI0JXTm qAMimQ8xKXIrLZOhd0Q1WN Qkk4KjuSejpOAnPXUzvZRl aWVzLCByZXByZXNlbnRhdG w6VEnhRILdFEK8AEwascOu cxUoWYFpv62sLZ7wZOIsfA Zzg4EtsWW5dBWmAZUeW2Up a59xBhJplRPwlPSldDFdmS vwyIYxmFI3wGC9tM7hAYFn cEUpVCTyoXQlr5VdaNB1bS DkYSTdwaLMQytaPw2hBBKy yj7hKVZtxkG9NDZbUOJcSS SmeyKiTPxmaWImYN6iqGMi dGlvbiBzaXRlcywgcmVwcm JvTK41VKGurkVgrSOnMGUt doVUOLH4JGVpclAeiIcxJZ HVEVNxNRYOINz7LLXovOBf IJC0UA8zdQaxOJQqL6HqI3 JszyE4XAYzco9= Disclaimer (test code = g6ugaUDvETVdm7zwFRMucZ [id number]) FuZzEwMzNcZnRuYmpcdWMx GFvhucZqUEzwd6RkM8KiCq AwMFxhbnNpXGRlZmxhbmcx AHRnCKJ3otDmMQIaZKdiQS KfEHkxPa2axNMosKrhAuLt YREdh4zzfdSECVlnOjTpG5 77UKLhDDeyb9lgy1AaOENq rWOfo2M1JOPSmwdtcIe6fB wqV09ra3P9WojpQ3rdYBRa RVWqX2FvCQ3iFIXxWov5YZ D4QKM3ITWaNRVfQ2PyKW4w IQTczMIoKBo1z5eqqFigWF PoKYF9d3drPOyhkbAbXT9y qk1ncUv6u5dxjtWxQMCyOF UhbNXOLIZbF4UaoAmfBq9g qFy8xKwxYfthCBR9Rid6AY 9waq39bec0bYufBNLtoqpf MeX1AHidRWQzwyjmPXs7GL hfWJUhvPH4GAVnoDGfS8Rp MCHzWL2fzrx3DHA5ONdaHP AcNtT5WBVucEGdSGEqcHnp OPbkf028JKX3QhVkEH1lD0 Vqa2D8zL3zqONkQAQosPDe JmGoAPDqww2arUWwPIphd8 IvZFI9biI8iAQvdNHfMPSl YF91Wjkzc2NjCbwel3CoH2 2snPT1SLveu4rkCF9pBxW4 sqFhEBifg3mtyW1tPaN5RS wmAV0sTM1zDEBtuS5xlpfc XHBnYnJkcmhlYWRccGdicm QdZv4ugGmnBHS7JSskC6wh rG4xWyI1DOzqF7abpM7dVQ g3ZMudpJA6VIXahY1qHN3j ufvpu0ddJDbeASujCFHlpg M5adF3BDPgzUMbK7JvhQ9d IFJlNN7nsmoih8qdFBQ9EA lhYGYjRHF0UpWgFWFzj0Uz ydw8GnBne4DapCIvJGwjG9 0ql985RHFxzbFzX3fhiGVw inyrjSCffiagREobfkY4QY RgdeKpu7VlPAZlTCF9BZlo MGnucVPpRKEozAnus7njF9 RscGFyXHBsYWluXGYxXGZz MjBcbGFuZzEwMzNcaGljaF ksSFsnOkWmZSGzCEkrE1mr MnXeQ7FxPHPsWuQtyKYdO7 ggVGhpcyByZXBvcnQgbWF5 BHhiN7d1OJOofqVwxPd8jr RxCpWgFKXvRKI9XYhdrRHr GNXzh3DtnwfowDJxNh2dzE ObLNPdyB0tTFLcUQFlHXmb DD0otCu9JQHPbXDeuCSnNy BJWZCaCL38reYyXRTFpxoj k7L8RXycAGKod3EvzJAtN0 bxh1QhOQAee14vFQ2wk7N1 i5wrZMY8UH0eo9EjGIJntJ EkuLNhXDWvn1Qmqpoyx3Ie DDCsqnRzb4YeDGSticSebG ZcBSWiwmIgcw9bioCkQOAq VOGaC9QycvubbCevjxOqPD Fgkc3iskGoGXE9MLADTVPt ZTUlp8DfbM7ytKZKSIW4rP Vzbv1iufKMpITjQDUjak78 TYQnCT0iV8qkKHOkRKEmzb LawLTag6LqBRVfrYZ4dMVk GE8NKwVYe21kXEUaSRGJbt CyJCUchVwdyHD2lfA2xP9g IChGREEpLlx+IFRoZSBGRE BpCK2nefGth8LrgoIbePmm GXUkxPMnc7GqaUUkw7HfwW jhd1QclPZolZVbKX4qQIEy clxwYXIgVVRNQiBMYWJvcm R5s5QaFTPnPSWaEQT7lNoc xft1UAThiK5zNHEaM4yvrz nlTTisWNPdh8VafC3paBBP kLOlu7CavVZhdORObAVtZU 9cibPgQOmVNAlPZAE6dgMj KFQvr6YlPWzjD8rrB65stS mzdDy1dZN3JHU2nM2gJyp+ IFxwYXJccGFyIEFwcHJvcH LiPCYnxGumhlDtG8XcsfNa tD5rzLUdtiUbLW6bWF4cS9 D7rBAzAJIlmuXcm1zoDXsw dmUgYmVlbiByZXZpZXdlZC Tvb3MhFJmsPBN3CCsfqcIm bmNsdWRpbmcgSCZFLCBTcG RjyZJoPST7SSqmxqQriiYr NY0deA6piNxmfL5svZZhuO P4kjltQAOpQSIejMaeUVQz XF2vrTEmTSNmkoVWcOxyvF QuvZ0bZ4LpYHBwCKYbdp0t ULLqkT7fMKcxo8EcqbupWY LtQEAcFHAvzhSjoa6uQHUv zNRHTI7GZXbihNVsd7Dgbz MzC8zGUMQ6MHGsZbHyTyge XVVctLAdeCHcPPDkhu48TG EjkZ4ahUnyRKDljQ6urM0w pSqaiG5sRtVpJnDaJJsrZW 2rCCMuJ3jziQFlHIQmRKGk W8cfQyVjpB6ytQjyYLvhZt UmWqZiORpmXKH8kK== Embedded Images (test code = 8282673232) [facility] GLUCOSE (AUTOMATED)2022-04-23 18:05:58 Test Item Value Reference Range Interpretation Comments POCT GLU (test code = 206 mg/dL 70-110 H Notifi ed Provider [id number]) Lab Interpretation (test Abnormal code = 19905-4) [facility] GLUCOSE (AUTOMATED)2022-04-23 14:20:45 Test Item Value Reference Range Interpretation Comments POCT GLU (test code = 89 mg/dL 70-110 Notifi ed Provider [id number]) Lab Interpretation (test Normal code = 92065-6) [facility] GLUCOSE (AUTOMATED)2022-04-23 03:33:37 Test Item Value Reference Range Interpretation Comments POCT GLU (test code = 6844978298) 99 mg/dL 70-110 Lab Interpretation (test code = Normal 11883-0) [facility] GLUCOSE (AUTOMATED)2022-04-22 17:30:44 Test Item Value Reference Range Interpretation Comments POCT GLU (test code = 115 mg/dL 70-110 H Notifi ed Provider [id number]) Lab Interpretation (test Abnormal code = 77650-5) [facility] GLUCOSE (AUTOMATED)2022-04-22 15:03:57 Test Item Value Reference Range Interpretation Comments POCT GLU (test code = 0231310136) 124 mg/dL 70-110 H Lab Interpretation (test code = Abnormal 66160-4) [facility] GLUCOSE (AUTOMATED)2022-04-22 13:37:02 Test Item Value Reference Range Interpretation Comments POCT GLU (test code = 98 mg/dL 70-110 Notifi ed Provider [id number]) Lab Interpretation (test Normal code = 34866-7) [facility] GLUCOSE (AUTOMATED)2022-04-22 02:46:57 Test Item Value Reference Range Interpretation Comments POCT GLU (test code = 9176286339) 86 mg/dL 70-110 Lab Interpretation (test code = Normal 12889-2) [facility] GLUCOSE (AUTOMATED)2022-04-21 23:32:59 Test Item Value Reference Range Interpretation Comments POCT GLU (test code = 7256105516) 88 mg/dL 70-110 Lab Interpretation (test code = Normal 75977-8) [facility] GLUCOSE (AUTOMATED)2022-04-21 18:13:30 Test Item Value Reference Range Interpretation Comments POCT GLU (test code = 0095668817) 117 mg/dL 70-110 H Lab Interpretation (test code = Abnormal 99609-1) [facility] GLUCOSE (AUTOMATED)2022-04-21 15:10:33 Test Item Value Reference Range Interpretation Comments POCT GLU (test code = 0996867703) 123 mg/dL 70-110 H Lab Interpretation (test code = Abnormal 62735-8) [facility] GLUCOSE (AUTOMATED)2022-04-21 01:36:23 Test Item Value Reference Range Interpretation Comments POCT GLU (test code = 2356098208) 150 mg/dL 70-110 H Lab Interpretation (test code = Abnormal 58723-4) [facility] GLUCOSE (AUTOMATED)2022-04-20 21:16:02 Test Item Value Reference Range Interpretation Comments POCT GLU (test code = 135 mg/dL 70-110 H Notifi ed Provider [id number]) Lab Interpretation (test Abnormal code = 28337-6) [facility] GLUCOSE (AUTOMATED)2022-04-20 16:49:04 Test Item Value Reference Range Interpretation Comments POCT GLU (test code = 240 mg/dL 70-110 H Notifi ed Provider [id number]) Lab Interpretation (test Abnormal code = 85920-3) [facility] GLUCOSE (AUTOMATED)2022-04-20 14:20:01 Test Item Value Reference Range Interpretation Comments POCT GLU (test code = 8734001443) 165 mg/dL 70-110 H Lab Interpretation (test code = Abnormal 25607-5) [facility] GLUCOSE (AUTOMATED)2022-04-20 01:37:12 Test Item Value Reference Range Interpretation Comments POCT GLU (test code = 144 mg/dL 70-110 H Notifi ed Provider [id number]) Lab Interpretation (test Abnormal code = 97306-6) [facility] GLUCOSE (AUTOMATED)2022-04-19 22:33:23 Test Item Value Reference Range Interpretation Comments POCT GLU (test code = 6211923943) 98 mg/dL 70-110 Lab Interpretation (test code = Normal 85140-1) [facility] 30 minutes after transfusion of each [id number] 22:20:05 Test Item Value Reference Range Interpretation Comments WBC (test code = 6690-2) See_Comment [A utomated message] The system [employer] generated this result transmit rudolph reference range : 4.20 - 10.70 10*3/?L. The reference range was not used to interpret this result as normal/abnormal . RBC (test code = 789-8) See_Comment L [Au tomated message] The system [employer] generated this result transmit rudolph reference range [...] 777-3) See_Comment [Au tomated message] The system [employer] generated this result transmit rudolph reference range : 150 - 328 10*3/?L. The reference range was not used to interpret this result as normal/abnormal . MPV (test code = 11.6 fL 9.8-13.0 91592-8) RDW-CV (test code = 15.4 % 12.1-15.4 788-0) RDW-SD (test code = 48.0 fL 38.5-51.6 99632-8) NRBC x10^3 (test code = See_Comment [Au tomated message] 6641360583) The system [employer] generated this result transmit rudolph reference range : 10*3/?L. The reference range was not used to interpret this result as normal/abnormal . NRBC/100 WBC (test code See_Comment [Au tomated message] = 1510451870) The system [employer] generated this result transmit rudolph reference range : 0.0 - 10.0 /100 WBC s. The reference r adama was not used to interpret this result as normal/abnormal . IPF % (test code = 4195272090) Lab Interpretation (test Abnormal code = 40883-8) [facility] 16:46:04 Test Item Value Reference Range Interpretation Comments POCT GLU (test code = 7452740566) 160 mg/dL 70-110 H Lab Interpretation (test code = Abnormal 79130-8) [facility] P[facility] RBC (in units), 1 Units 2022-04-19 16:38:13 Test Item Value Reference Range Interpretation Comments Cross Match Result Compatible (test code = 4409) ISBT Blood Type Code (test code = 650803) Unit Blood Type (test O Pos code = 4410) Unit Number (test [id number] code = 4411) Blood Expiration Date & Time (test code = 752430) Status Information Issued (test code = 4412) Product Red Blood Cells Identification (test code = 4413) Product Code (test U7134V23 Performed at [facility] code = 4414) Laboratory Services - [facility] Blood [address] [address]Yfue Free: [phone] A No. [id number] [facility] and Screen - ONCE [id number] 13:53:13 Test Item Value Reference Range Interpretation Comments ABO & RH (test code O POSITIVE Performe d at [facility] = 20) Laboratory Serv [facility] Blood Bank3 [address] [facility] [place] [address]Xlee Free: [phone] A No. [id number] IAT (test code = Negative Performed a t [facility] 1185) Laboratory Serv [facility] Blood [facility]3 [address] [facility] [place] [address]Lnol Free: [phone] A No. [id number] [facility] GLUCOSE (AUTOMATED)2022-04-19 13:09:23 Test Item Value Reference Range Interpretation Comments POCT GLU (test code = 7060190565) 133 mg/dL 70-110 H Lab Interpretation (test code = Abnormal 35694-4) [facility] GLUCOSE (AUTOMATED)2022-04-19 02:48:15 Test Item Value Reference Range Interpretation Comments POCT GLU (test code = 8966285114) 98 mg/dL 70-110 Lab Interpretation (test code = Normal 47434-6) [facility] GLUCOSE (AUTOMATED)2022-04-18 20:44:44 Test Item Value Reference Range Interpretation Comments POCT GLU (test code = 95 mg/dL 70-110 Notifi ed Provider [id number]) Lab Interpretation (test Normal code = 87298-9) [facility] GLUCOSE (AUTOMATED)2022-04-18 18:33:14 Test Item Value Reference Range Interpretation Comments POCT GLU (test code = 68 mg/dL 70-110 L Notifi ed Provider [id number]) Lab Interpretation (test Abnormal code = 03925-9) [facility] GLUCOSE (AUTOMATED)2022-04-18 18:33:14 Test Item Value Reference Range Interpretation Comments POCT GLU (test code = 68 mg/dL 70-110 L Notifi ed Provider [id number]) Lab Interpretation (test Abnormal code = 59352-1) [facility] GLUCOSE (AUTOMATED)2022-04-18 01:44:18 Test Item Value Reference Range Interpretation Comments POCT GLU (test code = 7941600501) 155 mg/dL 70-110 H Lab Interpretation (test code = Abnormal 55745-3) [facility] GLUCOSE (AUTOMATED)2022-04-18 01:44:18 Test Item Value Reference Range Interpretation Comments POCT GLU (test code = 7977786348) 155 mg/dL 70-110 H Lab Interpretation (test code = Abnormal 79869-2) [facility] GLUCOSE (AUTOMATED)2022-04-17 21:25:00 Test Item Value Reference Range Interpretation Comments POCT GLU (test code = 103 mg/dL 70-110 Notifi ed Provider [id number]) Lab Interpretation (test Normal code = 18040-0) [facility] GLUCOSE (AUTOMATED)2022-04-17 21:25:00 Test Item Value Reference Range Interpretation Comments POCT GLU (test code = 103 mg/dL 70-110 Notifi ed Provider [id number]) Lab Interpretation (test Normal code = 33389-1) [facility] WITHOUT [id number] 20:04:41 Test Item Value Reference Range Interpretation Comments WBC (test code = 6690-2) See_Comment H [A utomated message] The system [employer] generated this result transmit rudolph reference range : 4.20 - 10.70 10*3/?L. The reference range was not used to interpret this result as normal/abnormal . RBC (test code = 789-8) See_Comment L [Au tomated message] The system [employer] generated this result transmit rudolph reference range [...] 777-3) See_Comment [Au tomated message] The system [employer] generated this result transmit rudolph reference range : 150 - 328 10*3/?L. The reference range was not used to interpret this result as normal/abnormal . MPV (test code = 11.8 fL 9.8-13.0 44932-2) RDW-CV (test code = 16.2 % 12.1-15.4 H 788-0) RDW-SD (test code = 49.7 fL 38.5-51.6 67508-5) NRBC x10^3 (test code = See_Comment [Au tomated message] 7006411937) The system [facility] generated this result transmit rudolph reference range : 10*3/?L. The reference range was not used to interpret this result as normal/abnormal . NRBC/100 WBC (test code See_Comment [Au tomated message] = 6617769724) The system [facility] generated this result transmit rudolph reference range : 0.0 - 10.0 /100 WBC s. The reference r adama was not used to interpret this result as normal/abnormal . IPF % (test code = 2411112126) Lab Interpretation (test Abnormal code = 38114-3) [facility] WITHOUT [id number] 20:04:41 Test Item Value Reference Range Interpretation Comments WBC (test code = 6690-2) See_Comment H [A utomated message] The system [facility] generated this result transmit rudolph reference range : 4.20 - 10.70 10*3/?L. The reference range was not used to interpret this result as normal/abnormal . RBC (test code = 789-8) See_Comment L [Au tomated message] The system [facility] generated this result transmit rudolph reference [...] 777-3) See_Comment [Au tomated message] The system [employer] generated this result transmit rudolph reference range : 150 - 328 10*3/?L. The reference range was not used to interpret this result as normal/abnormal . MPV (test code = 11.8 fL 9.8-13.0 48146-3) RDW-CV (test code = 16.2 % 12.1-15.4 H 788-0) RDW-SD (test code = 49.7 fL 38.5-51.6 73467-1) NRBC x10^3 (test code = See_Comment [Au tomated message] 8522310982) The system [employer] generated this result transmit rudolph reference range : 10*3/?L. The reference range was not used to interpret this result as normal/abnormal . NRBC/100 WBC (test code See_Comment [Au tomated message] = 6577250508) The system [employer] generated this result transmit rudolph reference range : 0.0 - 10.0 /100 WBC s. The reference r adama was not used to interpret this result as normal/abnormal . IPF % (test code = 3519123292) Lab Interpretation (test Abnormal code = 69594-1) [facility] GLUCOSE (AUTOMATED)2022-04-17 13:17:39 Test Item Value Reference Range Interpretation Comments POCT GLU (test code = 141 mg/dL 70-110 H Notifi ed Provider [id number]) Lab Interpretation (test Abnormal code = 24257-5) [facility] GLUCOSE (AUTOMATED)2022-04-17 13:17:39 Test Item Value Reference Range Interpretation Comments POCT GLU (test code = 141 mg/dL 70-110 H Notifi ed Provider [id number]) Lab Interpretation (test Abnormal code = 68575-3) [facility] GLUCOSE (AUTOMATED)2022-04-17 02:45:46 Test Item Value Reference Range Interpretation Comments POCT GLU (test code = 1415250175) 210 mg/dL 70-110 H Lab Interpretation (test code = Abnormal 55588-8) [facility] GLUCOSE (AUTOMATED)2022-04-17 02:45:46 Test Item Value Reference Range Interpretation Comments POCT GLU (test code = 6085307366) 210 mg/dL 70-110 H Lab Interpretation (test code = Abnormal 83894-8) [facility] GLUCOSE (AUTOMATED)2022-04-17 00:25:22 Test Item Value Reference Range Interpretation Comments POCT GLU (test code = 6909463172) 263 mg/dL 70-110 H Lab Interpretation (test code = Abnormal 56587-4) [facility] GLUCOSE (AUTOMATED)2022-04-17 00:25:22 Test Item Value Reference Range Interpretation Comments POCT GLU (test code = 8519343738) 263 mg/dL 70-110 H Lab Interpretation (test code = Abnormal 53451-4) [facility]:23:14 Test Item Value Reference Range Interpretation Comments APTT Patient (test code See_Comment H [Au tomated message] = 3173-2) The system [employer] generated this result transmitted ref erence range: 26 - 36 Seconds. The reference range was not used to int erpret this result as normal/abnormal . Lab Interpretation (test Abnormal code = 09346-8) [facility] (for use with Heparin Infusion)2022-04-16 18:23:14 Test Item Value Reference Range Interpretation Comments APTT Patient (test code See_Comment H [Au tomated message] = 3173-2) The system [employer] generated this result transmitted ref erence range: 26 - 36 Seconds. The reference range was not used to int erpret this result as normal/abnormal . Lab Interpretation (test Abnormal code = 73113-2) [facility] GLUCOSE (AUTOMATED)2022-04-16 17:59:52 Test Item Value Reference Range Interpretation Comments POCT GLU (test code = 5094836319) 131 mg/dL 70-110 H Lab Interpretation (test code = Abnormal 39799-6) [facility] GLUCOSE (AUTOMATED)2022-04-16 17:59:52 Test Item Value Reference Range Interpretation Comments POCT GLU (test code = 3643758015) 131 mg/dL 70-110 H Lab Interpretation (test code = Abnormal 26917-3) [facility] GLUCOSE (AUTOMATED)2022-04-16 13:06:52 Test Item Value Reference Range Interpretation Comments POCT GLU (test code = 1501870462) 157 mg/dL 70-110 H Lab Interpretation (test code = Abnormal 56154-9) [facility]2022-[facility]-16 13:06:52 Test Item Value Reference Range Interpretation Comments POCT GLU (test code = 4647298520) 157 mg/dL 70-110 H Lab Interpretation (test code = Abnormal 15706-8) [facility] GLUCOSE (AUTOMATED)2022-04-16 01:54:00 Test Item Value Reference Range Interpretation Comments POCT GLU (test code = 9146540504) 91 mg/dL 70-110 Lab Interpretation (test code = Normal 91542-9) [facility] GLUCOSE (AUTOMATED)2022-04-16 01:54:00 Test Item Value Reference Range Interpretation Comments POCT GLU (test code = 5302975432) 91 mg/dL 70-110 Lab Interpretation (test code = Normal 62550-1) [facility] GLUCOSE (AUTOMATED)2022-04-15 17:00:06 Test Item Value Reference Range Interpretation Comments POCT GLU (test code = 7451742973) 173 mg/dL 70-110 H Lab Interpretation (test code = Abnormal 65290-8) [facility] GLUCOSE (AUTOMATED)2022-04-15 17:00:06 Test Item Value Reference Range Interpretation Comments POCT GLU (test code = 6339270527) 173 mg/dL 70-110 H Lab Interpretation (test code = Abnormal 58954-5) [facility] GLUCOSE (AUTOMATED)2022-04-15 13:24:12 Test Item Value Reference Range Interpretation Comments POCT GLU (test code = 0847470767) 125 mg/dL 70-110 H Lab Interpretation (test code = Abnormal 42833-6) [facility] GLUCOSE (AUTOMATED)2022-04-15 13:24:12 Test Item Value Reference Range Interpretation Comments POCT GLU (test code = 3827450105) 125 mg/dL 70-110 H Lab Interpretation (test code = Abnormal 17585-7) [facility] GLUCOSE (AUTOMATED)2022-04-15 02:36:11 Test Item Value Reference Range Interpretation Comments POCT GLU (test code = 7751298298) 168 mg/dL 70-110 H Lab Interpretation (test code = Abnormal 29460-2) [facility] 02:36:11 Test Item Value Reference Range Interpretation Comments POCT GLU (test code = 5963079828) 168 mg/dL 70-110 H Lab Interpretation (test code = Abnormal 44728-5) [facility]+K+GLU+CA2+2022-04-15 01:04:50 Test Item Value Reference Range Interpretation Comments PH (test code = 2) 7.35-7.45 PCO2 (test code = See_Comment [Automate d message] 9819970100) The system [employer] generated this result transmit rudolph reference range : 35 - 45 mmHg. The reference range was not used to interpret this result as normal/abnormal . PO2 (test code = See_Comment [Automated message] 0629980842) The system [employer] generated this result transmit rudolph reference range : 80 - 100 mmHg. The reference range was not used to interpret this result as normal/abnormal . HCO3 (test code = See_Comment [Automate d message] 9403533373) The system [employer] generated this result transmit rudolph reference range : 22 - 26 mEq/L. The reference range was not used to interpret this result as normal/abnormal . BE (test code = See_Comment [Automated message] 5716167805) The system [employer] generated this result transmit rudolph reference range : -3.0 - 3.0 mEq/ L. The reference r adama was not used to interpret this result as normal/abnormal . THB (test code = 12.1 g/dL 13.5-18.0 L 5897565936) %O2HB (test code = 96.4 % 94.0-99.0 1574886514) %COHB ART (test code = 0.3 % 0.0-1.5 9738860561) %METHB ART (test code = 0.2 % 0.4-1.5 L 8453643678) VOL%O2 ART (test code = 16.5 % 15.0-23.0 QUES 2689138669) NA (test code = 134 mmol/L 135-145 L 2333237689) K+ (test code = 3.6 mmol/L 3.5-5.0 1409553041) AC CA IONZ (test code = 5.20 mg/dL 4.50-5.30 0418108059) GLUCOSE (test code = 136 mg/dL 70-110 H 7536206686) Lab Interpretation Abnormal (test code = 18032-0) [facility]+K+GLU+CA2+2022-04-15 01:04:50 Test Item Value Reference Range Interpretation Comments PH (test code = 2) 7.35-7.45 PCO2 (test code = See_Comment [Automate d message] 4898822529) The system [employer] generated this result transmit rudolph reference range : 35 - 45 mmHg. The reference range was not used to interpret this result as normal/abnormal . PO2 (test code = See_Comment [Automated message] 9458445844) The system [employer] generated this result transmit rudolph reference range : 80 - 100 mmHg. The reference range was not used to interpret this result as normal/abnormal . HCO3 (test code = See_Comment [Automate d message] 8776317427) The system [employer] generated this result transmit rudolph reference range : 22 - 26 mEq/L. The reference range was not used to interpret this result as normal/abnormal . BE (test code = See_Comment [Automated message] 0008568419) The system [employer] generated this result transmit rudolph reference range : -3.0 - 3.0 mEq/ L. The reference r adama was not used to interpret this result as normal/abnormal . THB (test code = 12.1 g/dL 13.5-18.0 L 7487918596) %O2HB (test code = 96.4 % 94.0-99.0 1019861195) %COHB ART (test code = 0.3 % 0.0-1.5 4320856015) %METHB ART (test code = 0.2 % 0.4-1.5 L 8035490374) VOL%O2 ART (test code = 16.5 % 15.0-23.0 QUES 6022367137) NA (test code = 134 mmol/L 135-145 L 2131692598) K+ (test code = 3.6 mmol/L 3.5-5.0 1826622597) AC CA IONZ (test code = 5.20 mg/dL 4.50-5.30 4594232394) GLUCOSE (test code = 136 mg/dL 70-110 H 1789686186) Lab Interpretation Abnormal (test code = 48148-2) [facility]U+CA2+2022-04-15 01:04:30 Test Item Value Reference Range Interpretation Comments PH (test code = 2) 7.35-7.45 PCO2 (test code = See_Comment [Automate d message] 7543568276) The system [employer] generated this result transmit rudolph reference range : 35 - 45 mmHg. The reference range was not used to interpret this result as normal/abnormal . PO2 (test code = See_Comment H [Automated message] 2926904883) The system [employer] generated this result transmit rudolph reference range : 80 - 100 mmHg. The reference range was not used to interpret this result as normal/abnormal . HCO3 (test code = See_Comment [Automate d message] 3388896619) The system [employer] generated this result transmit rudolph reference range : 22 - 26 mEq/L. The reference range was not used to interpret this result as normal/abnormal . BE (test code = See_Comment [Automated message] 0845750831) The system [employer] generated this result transmit rudolph reference range : -3.0 - 3.0 mEq/ L. The reference r adama was not used to interpret this result as normal/abnormal . THB (test code = 11.1 g/dL 13.5-18.0 L 3331331668) %O2HB (test code = 98.9 % 94.0-99.0 5472552118) %COHB ART (test code = 0.3 % 0.0-1.5 1869989710) %METHB ART (test code = 0.2 % 0.4-1.5 L 7328972451) VOL%O2 ART (test code = 16.0 % 15.0-23.0 QUES 5227622656) NA (test code = 133 mmol/L 135-145 L 7470899463) K+ (test code = 3.5 mmol/L 3.5-5.0 0553265620) AC CA IONZ (test code = 4.80 mg/dL 4.50-5.30 3476122883) GLUCOSE (test code = 111 mg/dL 70-110 H 9713538046) Lab Interpretation Abnormal (test code = 01971-5) [facility]U+CA2+2022-04-15 01:04:30 Test Item Value Reference Range Interpretation Comments PH (test code = 2) 7.35-7.45 PCO2 (test code = See_Comment [Automate d message] 9456066093) The system [employer] h generated this result transmit rudolph reference range : 35 - 45 mmHg. The reference range was not used to interpret this result as normal/abnormal . PO2 (test code = See_Comment H [Automated message] 7102753243) The system [employer] generated this result transmit rudolph reference range : 80 - 100 mmHg. The reference range was not used to interpret this result as normal/abnormal . HCO3 (test code = See_Comment [Automate d message] 3317912617) The system [employer] generated this result transmit rudolph reference range : 22 - 26 mEq/L. The reference range was not used to interpret this result as normal/abnormal . BE (test code = See_Comment [Automated message] 6233401754) The system [employer] generated this result transmit rudolph reference range : -3.0 - 3.0 mEq/ L. The reference r adama was not used to interpret this result as normal/abnormal . THB (test code = 11.1 g/dL 13.5-18.0 L 0148852672) %O2HB (test code = 98.9 % 94.0-99.0 7957010929) %COHB ART (test code = 0.3 % 0.0-1.5 6826076014) %METHB ART (test code = 0.2 % 0.4-1.5 L 5622732898) VOL%O2 ART (test code = 16.0 % 15.0-23.0 QUES 3017512322) NA (test code = 133 mmol/L 135-145 L 2682565809) K+ (test code = 3.5 mmol/L 3.5-5.0 5522239291) AC CA IONZ (test code = 4.80 mg/dL 4.50-5.30 2587298570) GLUCOSE (test code = 111 mg/dL 70-110 H 8914164923) Lab Interpretation Abnormal (test code = 58492-4) [facility]+K+GLU+CA2+2022-04-15 01:02:35 Test Item Value Reference Range Interpretation Comments PH (test code = 2) 7.35-7.45 PCO2 (test code = See_Comment L [Automate d message] 6742518331) The system [employer] generated this result transmit rudolph reference range : 35 - 45 mmHg. The reference range was not used to interpret this result as normal/abnormal . PO2 (test code = See_Comment H [Automated message] 6803323745) The system [employer] generated this result transmit rudolph reference range : 80 - 100 mmHg. The reference range was not used to interpret this result as normal/abnormal . HCO3 (test code = See_Comment L [Automate d message] 9282370708) The system [employer] generated this result transmit rudolph reference range : 22 - 26 mEq/L. The reference range was not used to interpret this result as normal/abnormal . BE (test code = See_Comment L [Automated message] 8013767183) The system [employer] generated this result transmit rudolph reference range : -3.0 - 3.0 mEq/ L. The reference r adama was not used to interpret this result as normal/abnormal . THB (test code = 9.7 g/dL 13.5-18.0 L 8796532807) %O2HB (test code = 98.6 % 94.0-99.0 2788994968) %COHB ART (test code = 0.3 % 0.0-1.5 7556915754) %METHB ART (test code = 0.4 % 0.4-1.5 3798865265) VOL%O2 ART (test code = 14.0 % 15.0-23.0 L QUES 2135300651) NA (test code = 138 mmol/L 135-145 9620040151) K+ (test code = 2.6 mmol/L 3.5-5.0 LL 7077237932) AC CA IONZ (test code = 4.00 mg/dL 4.50-5.30 L 5126422373) GLUCOSE (test code = 84 mg/dL 70-110 0203642691) Lab Interpretation Abnormal (test code = 40910-6) [facility]+K+GLU+CA2+2022-04-15 01:02:35 Test Item Value Reference Range Interpretation Comments PH (test code = 2) 7.35-7.45 PCO2 (test code = See_Comment L [Automate d message] 7093620141) The system [employer] generated this result transmit rudolph reference range : 35 - 45 mmHg. The reference range was not used to interpret this result as normal/abnormal . PO2 (test code = See_Comment H [Automated message] 0654269301) The system [employer] generated this result transmit rudolph reference range : 80 - 100 mmHg. The reference range was not used to interpret this result as normal/abnormal . HCO3 (test code = See_Comment L [Automate d message] 9411684910) The system [employer] generated this result transmit rudolph reference range : 22 - 26 mEq/L. The reference range was not used to interpret this result as normal/abnormal . BE (test code = See_Comment L [Automated message] 7408191409) The system [employer] generated this result transmit rudolph reference range : -3.0 - 3.0 mEq/ L. The reference r adama was not used to interpret this result as normal/abnormal . THB (test code = 9.7 g/dL 13.5-18.0 L 7732940885) %O2HB (test code = 98.6 % 94.0-99.0 5840325941) %COHB ART (test code = 0.3 % 0.0-1.5 7852913980) %METHB ART (test code = 0.4 % 0.4-1.5 8025365620) VOL%O2 ART (test code = 14.0 % 15.0-23.0 L QUES 2807756267) NA (test code = 138 mmol/L 135-145 4168657550) K+ (test code = 2.6 mmol/L 3.5-5.0 LL 4457781342) AC CA IONZ (test code = 4.00 mg/dL 4.50-5.30 L 2198008374) GLUCOSE (test code = 84 mg/dL 70-110 9175114090) Lab Interpretation Abnormal (test code = 35115-6) [facility]2+[facility]-15 01:01:49 Test Item Value Reference Range Interpretation Comments PH (test code = 2) 7.35-7.45 PCO2 (test code = See_Comment L [Automate d message] [id number]) The system [employer] generated this result transmit rudolph reference range : 35 - 45 mmHg. The reference range was not used to interpret this result as normal/abnormal . PO2 (test code = See_Comment H [Automated message] [id number]) The system [employer] generated this result transmit rudolph reference range : 80 - 100 mmHg. The reference range was not used to interpret this result as normal/abnormal . HCO3 (test code = See_Comment [Automate d message] 8806675606) The system [employer] generated this result transmit rudolph reference range : 22 - 26 mEq/L. The reference range was not used to interpret this result as normal/abnormal . BE (test code = See_Comment [Automated message] 1649258249) The system [employer] generated this result transmit rudolph reference range : -3.0 - 3.0 mEq/ L. The reference r adama was not used to interpret this result as normal/abnormal . THB (test code = 11.8 g/dL 13.5-18.0 L 4386686272) %O2HB (test code = 99.1 % 94.0-99.0 H 4157752238) %COHB ART (test code = 0.0 % 0.0-1.5 9975070956) %METHB ART (test code = 0.3 % 0.4-1.5 L 5569612507) VOL%O2 ART (test code = 17.0 % 15.0-23.0 QUES 1273577011) NA (test code = 135 mmol/L 135-145 1088472156) K+ (test code = 3.3 mmol/L 3.5-5.0 L 3454367829) AC CA IONZ (test code = 4.60 mg/dL 4.50-5.30 1203660127) GLUCOSE (test code = 105 mg/dL 70-110 3389186210) Lab Interpretation Abnormal (test code = 94214-7) [facility]CA2+2022-04-15 01:01:49 Test Item Value Reference Range Interpretation Comments PH (test code = 2) 7.35-7.45 PCO2 (test code = See_Comment L [Automate d message] 7346377508) The system [employer] generated this result transmit rudolph reference range : 35 - 45 mmHg. The reference range was not used to interpret this result as normal/abnormal . PO2 (test code = See_Comment H [Automated message] 8060520957) The system [employer] generated this result transmit rudolph reference range : 80 - 100 mmHg. The reference range was not used to interpret this result as normal/abnormal . HCO3 (test code = See_Comment [Automate d message] 1842631855) The system [employer] generated this result transmit rudolph reference range : 22 - 26 mEq/L. The reference range was not used to interpret this result as normal/abnormal . BE (test code = See_Comment [Automated message] 8769954625) The system [employer] generated this result transmit rudolph reference range : -3.0 - 3.0 mEq/ L. The reference r adama was not used to interpret this result as normal/abnormal . THB (test code = 11.8 g/dL 13.5-18.0 L 3405280064) %O2HB (test code = 99.1 % 94.0-99.0 H 3799580899) %COHB ART (test code = 0.0 % 0.0-1.5 4975346945) %METHB ART (test code = 0.3 % 0.4-1.5 L 8567558565) VOL%O2 ART (test code = 17.0 % 15.0-23.0 QUES 0061453486) NA (test code = 135 mmol/L 135-145 2983327541) K+ (test code = 3.3 mmol/L 3.5-5.0 L 6834165322) AC CA IONZ (test code = 4.60 mg/dL 4.50-5.30 5416288597) GLUCOSE (test code = 105 mg/dL 70-110 7624024109) Lab Interpretation Abnormal (test code = 40751-5) [facility]CA2+2022-04-15 00:55:17 Test Item Value Reference Range Interpretation Comments PH (test code = 2) 7.35-7.45 PCO2 (test code = See_Comment [Automate d message] 5842644134) The system [employer] generated this result transmit rudolph reference range : 35 - 45 mmHg. The reference range was not used to interpret this result as normal/abnormal . PO2 (test code = See_Comment H [Automated message] 5527922831) The system [employer] h generated this result transmit rudolph reference range : 80 - 100 mmHg. The reference range was not used to interpret this result as normal/abnormal . HCO3 (test code = See_Comment [Automate d message] 5649913210) The system [employer] generated this result transmit rudolph reference range : 22 - 26 mEq/L. The reference range was not used to interpret this result as normal/abnormal . BE (test code = See_Comment [Automated message] 1913103316) The system [employer] generated this result transmit rudolph reference range : -3.0 - 3.0 mEq/ L. The reference r adama was not used to interpret this result as normal/abnormal . THB (test code = 11.7 g/dL 13.5-18.0 L 1763458680) %O2HB (test code = 99.1 % 94.0-99.0 H 1051461706) %COHB ART (test code = 0.3 % 0.0-1.5 9114193547) %METHB ART (test code = 0.0 % 0.4-1.5 L 7811941445) VOL%O2 ART (test code = 16.9 % 15.0-23.0 QUES 1801253285) NA (test code = 133 mmol/L 135-145 L 5213860962) K+ (test code = 4.4 mmol/L 3.5-5.0 7358033641) AC CA IONZ (test code = 4.80 mg/dL 4.50-5.30 5855388497) GLUCOSE (test code = 143 mg/dL 70-110 H 8347326723) Lab Interpretation Abnormal (test code = 50940-9) [facility]CA2+2022-04-15 00:55:17 Test Item Value Reference Range Interpretation Comments PH (test code = 2) 7.35-7.45 PCO2 (test code = See_Comment [Automate d message] 8678513472) The system [employer] generated this result transmit rudolph reference range : 35 - 45 mmHg. The reference range was not used to interpret this result as normal/abnormal . PO2 (test code = See_Comment H [Automated message] 0755503426) The system [employer] h generated this result transmit rudolph reference range : 80 - 100 mmHg. The reference range was not used to interpret this result as normal/abnormal . HCO3 (test code = See_Comment [Automate d message] 3560824133) The system [employer] generated this result transmit rudolph reference range : 22 - 26 mEq/L. The reference range was not used to interpret this result as normal/abnormal . BE (test code = See_Comment [Automated message] 2225374192) The system [employer] h generated this result transmit rudolph reference range : -3.0 - 3.0 mEq/ L. The reference r adama was not used to interpret this result as normal/abnormal . THB (test code = 11.7 g/dL 13.5-18.0 L 6523628239) %O2HB (test code = 99.1 % 94.0-99.0 H 9041306946) %COHB ART (test code = 0.3 % 0.0-1.5 0471963650) %METHB ART (test code = 0.0 % 0.4-1.5 L 7744580832) VOL%O2 ART (test code = 16.9 % 15.0-23.0 QUES 7498683201) NA (test code = 133 mmol/L 135-145 L 3479774728) K+ (test code = 4.4 mmol/L 3.5-5.0 0718218769) AC CA IONZ (test code = 4.80 mg/dL 4.50-5.30 7274835962) GLUCOSE (test code = 143 mg/dL 70-110 H 2873857023) Lab Interpretation Abnormal (test code = 74513-8) [facility]CA2+2022-04-15 00:54:37 Test Item Value Reference Range Interpretation Comments PH (test code = 2) 7.35-7.45 PCO2 (test code = See_Comment [Automate d message] 9493948655) The system [employer] generated this result transmit rudolph reference range : 35 - 45 mmHg. The reference range was not used to interpret this result as normal/abnormal . PO2 (test code = See_Comment H [Automated message] 0500144485) The system [employer] generated this result transmit rudolph reference range : 80 - 100 mmHg. The reference range was not used to interpret this result as normal/abnormal . HCO3 (test code = See_Comment [Automate d message] 7792324989) The system [employer] generated this result transmit rudolph reference range : 22 - 26 mEq/L. The reference range was not used to interpret this result as normal/abnormal . BE (test code = See_Comment [Automated message] 2162524961) The system [employer] generated this result transmit rudolph reference range : -3.0 - 3.0 mEq/ L. The reference r adama was not used to interpret this result as normal/abnormal . THB (test code = 8.5 g/dL 13.5-18.0 L 9512721527) %O2HB (test code = 98.8 % 94.0-99.0 7953208419) %COHB ART (test code = 0.5 % 0.0-1.5 4447235960) %METHB ART (test code = 0.3 % 0.4-1.5 L 2892023061) VOL%O2 ART (test code = 12.6 % 15.0-23.0 L QUES 4275841567) NA (test code = 132 mmol/L 135-145 L 7074483538) K+ (test code = 4.5 mmol/L 3.5-5.0 8421334917) AC CA IONZ (test code = 4.60 mg/dL 4.50-5.30 8989227853) GLUCOSE (test code = 155 mg/dL 70-110 H 5264406083) Lab Interpretation Abnormal (test code = 85895-6) [facility]+GLU+CA2+2022-04-15 00:54:37 Test Item Value Reference Range Interpretation Comments PH (test code = 2) 7.35-7.45 PCO2 (test code = See_Comment [Automate d message] 2128204866) The system [employer] generated this result transmit rudolph reference range : 35 - 45 mmHg. The reference range was not used to interpret this result as normal/abnormal . PO2 (test code = See_Comment H [Automated message] 0438387052) The system [employer] generated this result transmit rudolph reference range : 80 - 100 mmHg. The reference range was not used to interpret this result as normal/abnormal . HCO3 (test code = See_Comment [Automate d message] 9847754997) The system [employer] generated this result transmit rudolph reference range : 22 - 26 mEq/L. The reference range was not used to interpret this result as normal/abnormal . BE (test code = See_Comment [Automated message] 0328263648) The system [employer] generated this result transmit rudolph reference range : -3.0 - 3.0 mEq/ L. The reference r adama was not used to interpret this result as normal/abnormal . THB (test code = 8.5 g/dL 13.5-18.0 L 3207819135) %O2HB (test code = 98.8 % 94.0-99.0 4343024788) %COHB ART (test code = 0.5 % 0.0-1.5 0142106284) %METHB ART (test code = 0.3 % 0.4-1.5 L 5964987272) VOL%O2 ART (test code = 12.6 % 15.0-23.0 L QUES 1075188260) NA (test code = 132 mmol/L 135-145 L 9940127622) K+ (test code = 4.5 mmol/L 3.5-5.0 7353752083) AC CA IONZ (test code = 4.60 mg/dL 4.50-5.30 9785791527) GLUCOSE (test code = 155 mg/dL 70-110 H 0900932567) Lab Interpretation Abnormal (test code = 58187-4) [facility]CA2+2022-04-15 00:53:11 Test Item Value Reference Range Interpretation Comments PH (test code = 2) 7.35-7.45 PCO2 (test code = See_Comment [Automate d message] 0230059415) The system [employer] generated this result transmit rudolph reference range : 35 - 45 mmHg. The reference range was not used to interpret this result as normal/abnormal . PO2 (test code = See_Comment H [Automated message] 7497693930) The system [employer] generated this result transmit rudolph reference range : 80 - 100 mmHg. The reference range was not used to interpret this result as normal/abnormal . HCO3 (test code = See_Comment [Automate d message] 6535171141) The system [employer] generated this result transmit rudolph reference range : 22 - 26 mEq/L. The reference range was not used to interpret this result as normal/abnormal . BE (test code = See_Comment [Automated message] 0946498809) The system [employer] generated this result transmit rudolph reference range : -3.0 - 3.0 mEq/ L. The reference r adama was not used to interpret this result as normal/abnormal . THB (test code = 8.3 g/dL 13.5-18.0 LL 4821617536) %O2HB (test code = 98.9 % 94.0-99.0 1830527134) %COHB ART (test code = 0.4 % 0.0-1.5 2116851256) %METHB ART (test code = 0.3 % 0.4-1.5 L 0950725610) VOL%O2 ART (test code = 12.3 % 15.0-23.0 L QUES 8723865684) NA (test code = 131 mmol/L 135-145 L 9793509286) K+ (test code = 4.6 mmol/L 3.5-5.0 0958245133) AC CA IONZ (test code = 4.60 mg/dL 4.50-5.30 4179688541) GLUCOSE (test code = 161 mg/dL 70-110 H 7330119180) Lab Interpretation Abnormal (test code = 86516-0) [facility]+GLU+CA2+2022-04-15 00:53:11 Test Item Value Reference Range Interpretation Comments PH (test code = 2) 7.35-7.45 PCO2 (test code = See_Comment [Automate d message] 5669991747) The system [employer] generated this result transmit rudolph reference range : 35 - 45 mmHg. The reference range was not used to interpret this result as normal/abnormal . PO2 (test code = See_Comment H [Automated message] 4753080214) The system [employer] generated this result transmit rudolph reference range : 80 - 100 mmHg. The reference range was not used to interpret this result as normal/abnormal . HCO3 (test code = See_Comment [Automate d message] 7608843108) The system [employer] generated this result transmit rudolph reference range : 22 - 26 mEq/L. The reference range was not used to interpret this result as normal/abnormal . BE (test code = See_Comment [Automated message] 0967391609) The system [employer] generated this result transmit rudolph reference range : -3.0 - 3.0 mEq/ L. The reference r adama was not used to interpret this result as normal/abnormal . THB (test code = 8.3 g/dL 13.5-18.0 LL 1216030739) %O2HB (test code = 98.9 % 94.0-99.0 6586055233) %COHB ART (test code = 0.4 % 0.0-1.5 0471089096) %METHB ART (test code = 0.3 % 0.4-1.5 L 2212264314) VOL%O2 ART (test code = 12.3 % 15.0-23.0 L QUES 2215088154) NA (test code = 131 mmol/L 135-145 L 9402937038) K+ (test code = 4.6 mmol/L 3.5-5.0 6704361265) AC CA IONZ (test code = 4.60 mg/dL 4.50-5.30 3494263748) GLUCOSE (test code = 161 mg/dL 70-110 H 3662715405) Lab Interpretation Abnormal (test code = 66936-0) [facility]U+CA2+2022-04-15 00:52:26 Test Item Value Reference Range Interpretation Comments PH (test code = 2) 7.35-7.45 L PCO2 (test code = See_Comment [Automate d message] 0260866733) The system [employer] generated this result transmit rudolph reference range : 35 - 45 mmHg. The reference range was not used to interpret this result as normal/abnormal . PO2 (test code = See_Comment H [Automated message] 4686643897) The system [employer] generated this result transmit rudolph reference range : 80 - 100 mmHg. The reference range was not used to interpret this result as normal/abnormal . HCO3 (test code = See_Comment L [Automate d message] 9390736822) The system [employer] generated this result transmit rudolph reference range : 22 - 26 mEq/L. The reference range was not used to interpret this result as normal/abnormal . BE (test code = See_Comment L [Automated message] 7328442105) The system [employer] generated this result transmit rudolph reference range : -3.0 - 3.0 mEq/ L. The reference r adama was not used to interpret this result as normal/abnormal . THB (test code = 10.8 g/dL 13.5-18.0 L 7929417108) %O2HB (test code = 98.6 % 94.0-99.0 4580957048) %COHB ART (test code = 0.3 % 0.0-1.5 5041658768) %METHB ART (test code = 0.3 % 0.4-1.5 L 0155515578) VOL%O2 ART (test code = 15.7 % 15.0-23.0 QUES 9647251534) NA (test code = 132 mmol/L 135-145 L 4446947198) K+ (test code = 4.7 mmol/L 3.5-5.0 3838357317) AC CA IONZ (test code = 4.40 mg/dL 4.50-5.30 L 3393534039) GLUCOSE (test code = 179 mg/dL 70-110 H 7690618503) Lab Interpretation Abnormal (test code = 44715-9) [facility]GLU[facility]CA2+2022-04-15 00:52:26 Test Item Value Reference Range Interpretation Comments PH (test code = 2) 7.35-7.45 L PCO2 (test code = See_Comment [Automate d message] 7285543328) The system [employer] generated this result transmit rudolph reference range : 35 - 45 mmHg. The reference range was not used to interpret this result as normal/abnormal . PO2 (test code = See_Comment H [Automated message] 6794066830) The system [employer] generated this result transmit rudolph reference range : 80 - 100 mmHg. The reference range was not used to interpret this result as normal/abnormal . HCO3 (test code = See_Comment L [Automate d message] 6214165480) The system [employer] generated this result transmit rudolph reference range : 22 - 26 mEq/L. The reference range was not used to interpret this result as normal/abnormal . BE (test code = See_Comment L [Automated message] 2089347435) The system [employer] generated this result transmit rudolph reference range : -3.0 - 3.0 mEq/ L. The reference r adama was not used to interpret this result as normal/abnormal . THB (test code = 10.8 g/dL 13.5-18.0 L 2451253684) %O2HB (test code = 98.6 % 94.0-99.0 1225625685) %COHB ART (test code = 0.3 % 0.0-1.5 1889099484) %METHB ART (test code = 0.3 % 0.4-1.5 L 0608388942) VOL%O2 ART (test code = 15.7 % 15.0-23.0 QUES 5458798672) NA (test code = 132 mmol/L 135-145 L 7081124888) K+ (test code = 4.7 mmol/L 3.5-5.0 9070148840) AC CA IONZ (test code = 4.40 mg/dL 4.50-5.30 L 8492238077) GLUCOSE (test code = 179 mg/dL 70-110 H 5569968476) Lab Interpretation Abnormal (test code = 56345-0) [facility] GLUCOSE (AUTOMATED)2022-04-15 00:08:21 Test Item Value Reference Range Interpretation Comments POCT GLU (test code = 8111172013) 178 mg/dL 70-110 H Lab Interpretation (test code = Abnormal 45939-1) [facility] GLUCOSE (AUTOMATED)2022-04-15 00:08:21 Test Item Value Reference Range Interpretation Comments POCT GLU (test code = 7947195461) 178 mg/dL 70-110 H Lab Interpretation (test code = Abnormal 50977-7) [facility] RBC (in units), 1 Units 2022-04-14 18:57:54 Test Item Value Reference Range Interpretation Comments Cross Match Result Compatible (test code = 4409) ISBT Blood Type Code (test code = 082484) Unit Blood Type (test O Pos code = 4410) Unit Number (test [id number] code = 4411) Blood Expiration Date & Time (test code = 758887) Status Information Issued (test code = 4412) Product Red Blood Cells Identification (test code = 4413) Product Code (test [id number] Performed at [facility] code = 4414) Laboratory Services - [facility] Blood [address] s [address]Wrqv Free: [phone] A [facility]. [id number] [facility]), 1 Units 2022-04-14 18:57:54 Test Item Value Reference Range Interpretation Comments Cross Match Result Compatible (test code = 4409) ISBT Blood Type Code (test code = 041681) Unit Blood Type (test O Pos code = 4410) Unit Number (test [id number] code = 4411) Blood Expiration Date & Time (test code = 439974) Status Information Issued (test code = 4412) Product Red Blood Cells Identification (test code = 4413) Product Code (test [id number] Performed at [facility] code = 4414) Laboratory Services - [facility] Blood [address] [address]Nisc Free: [phone] A No. [id number] [facility] GLUCOSE (AUTOMATED)2022-04-14 17:17:57 Test Item Value Reference Range Interpretation Comments POCT GLU (test code = 8033185098) 172 mg/dL 70-110 H Lab Interpretation (test code = Abnormal 13320-5) [facility] GLUCOSE (AUTOMATED)2022-04-14 17:17:57 Test Item Value Reference Range Interpretation Comments POCT GLU (test code = 8879603694) 172 mg/dL 70-110 H Lab Interpretation (test code = Abnormal 03055-1) [facility] - ONCE [id number] 16:33:50 Test Item Value Reference Range Interpretation Comments ABO & RH (test code O POSITIVE Performe d at [facility] = 20) Laboratory [facility] [place] [address] s [address]Nbcw Free: [phone] A No. [id number] IAT (test code = Negative Performed a t [facility] 1185) Laboratory [facility] [place] [address]Mqad Free: [phone] A No. [id number] [facility] - ONCE [id number] 16:33:50 Test Item Value Reference Range Interpretation Comments ABO & RH (test code O POSITIVE Performe d at [facility] = 20) Laboratory [facility] Blood [facility] [address] [place] [address] s [address]Oive Free: [phone] A No. [id number] IAT (test code = Negative Performed a t [facility] 1185) Laboratory [facility] Blood [address] s [address]Jwcx Free: [phone] A No. [id number] [facility] GLUCOSE (AUTOMATED)2022-04-14 13:36:26 Test Item Value Reference Range Interpretation Comments POCT GLU (test code = 3868238024) 203 mg/dL 70-110 H Lab Interpretation (test code = Abnormal 22176-4) [facility] GLUCOSE (AUTOMATED)2022-04-14 13:36:26 Test Item Value Reference Range Interpretation Comments POCT GLU (test code = 8433095843) 203 mg/dL 70-110 H Lab Interpretation (test code = Abnormal 30880-8) [facility] GLUCOSE (AUTOMATED)2022-04-14 04:11:31 Test Item Value Reference Range Interpretation Comments POCT GLU (test code = 0999741955) 105 mg/dL 70-110 Lab Interpretation (test code = Normal 22826-6) [facility] GLUCOSE (AUTOMATED)2022-04-14 04:11:31 Test Item Value Reference Range Interpretation Comments POCT GLU (test code = 3495490184) 105 mg/dL 70-110 Lab Interpretation (test code = Normal 51708-1) [facility] GLUCOSE (AUTOMATED)2022-04-14 00:03:58 Test Item Value Reference Range Interpretation Comments POCT GLU (test code = 2586200932) 128 mg/dL 70-110 H Lab Interpretation (test code = Abnormal 45131-2) [facility] GLUCOSE (AUTOMATED)2022-04-14 00:03:58 Test Item Value Reference Range Interpretation Comments POCT GLU (test code = 9586949522) 128 mg/dL 70-110 H Lab Interpretation (test code = Abnormal 10139-1) [facility] [id number] 22:14:48 Test Item Value Reference Range Interpretation Comments IONIZED CA (test code = 4.10 mg/dL 4.50-5.30 L 0774133528) PH SERUM (test code = 8694860136) 7.35-7.45 Lab Interpretation (test code = Abnormal 25444-6) [facility] [id number] 22:14:48 Test Item Value Reference Range Interpretation Comments IONIZED CA (test code = 4.10 mg/dL 4.50-5.30 L 6120584358) PH SERUM (test code = 1327091276) 7.35-7.45 Lab Interpretation (test code = Abnormal 76010-5) [facility] (for use with Heparin Infusion)2022-04-13 21:43:14 Test Item Value Reference Range Interpretation Comments APTT Patient (test code See_Comment H [Au tomated message] = 3173-2) The system [employer] generated this result transmitted ref erence range: 26 - 36 Seconds. The reference range was not used to int erpret this result as normal/abnormal . Lab Interpretation (test Abnormal code = 31704-6) [facility] (for use with Heparin Infusion)2022-04-13 21:43:14 Test Item Value Reference Range Interpretation Comments APTT Patient (test code See_Comment H [Au tomated message] = 3173-2) The system [employer] generated this result transmitted ref erence range: 26 - 36 Seconds. The reference range was not used to int erpret this result as normal/abnormal . Lab Interpretation (test Abnormal code = 85178-1) [facility] PTH CALCIUM [id number] 17:52:12 Test Item Value Reference Range Interpretation Comments PTH-INTACT (test code = 81.0 pg/mL 12.0-88.0 9701234342) PTH-CA Interpretation [facility] clinical (test code = 6682465812) stephenie a needed for interpretation. CALCIUM (test code = 8.5 mg/dL 8.6-10.6 L 2204766585) Lab Interpretation (test Abnormal code = 60975-6) [facility] PTH CALCIUM [id number] 17:52:12 Test Item Value Reference Range Interpretation Comments PTH-INTACT (test code = 81.0 pg/mL 12.0-88.0 0847089091) PTH-CA Interpretation [facility] clinical (test code = 9591646987) stephenie a needed for interpretation. CALCIUM (test code = 8.5 mg/dL 8.6-10.6 L 0401389805) Lab Interpretation (test Abnormal code = 88509-8) [facility] GLUCOSE (AUTOMATED)2022-04-13 17:37:51 Test Item Value Reference Range Interpretation Comments POCT GLU (test code = 1231178769) 108 mg/dL 70-110 Lab Interpretation (test code = Normal 48610-1) [facility] GLUCOSE (AUTOMATED)2022-04-13 17:37:51 Test Item Value Reference Range Interpretation Comments POCT GLU (test code = 9165693908) 108 mg/dL 70-110 Lab Interpretation (test code = Normal 76562-3) [facility] [id number] 14:01:16 Test Item Value Reference Range Interpretation Comments IRON (test code = 5436957210) 54 ug/dL 50-160 TIBC (test code = 4563892844) 106 ug/dL 250-410 L % FE SAT (test code = 4608460902) 51 % 20-50 H Lab Interpretation (test code = Abnormal 42260-1) [facility]2022-10-29 14:01:16 Test Item Value Reference Range Interpretation Comments IRON (test code = 8282157655) 54 ug/dL 50-160 TIBC (test code = 1779107204) 106 ug/dL 250-410 L % FE SAT (test code = 7118609126) 51 % 20-50 H Lab Interpretation (test code = Abnormal 93088-3) [facility] METABOLIC PANEL (NA, K, CL, CO2, GLUCOSE, BUN, CREATININE, CA)2022-04-13 13:52:14 Test Item Value Reference Range Interpretation Comments NA (test code = 135 mmol/L 135-145 4440754780) K (test code = 4.1 mmol/L 3.5-5.0 5673156913) CL (test code = 100 mmol/L 98-108 9880915009) CO2 TOTAL (test code = 24 mmol/L 23-31 5678340380) AGAP (test code = 2-16 1317123439) BUN (test code = 18 mg/dL 7-23 4854528519) GLUCOSE (test code = 100 mg/dL 70-110 0478313601) CREATININE (test code = 4.28 mg/dL 0.60-1.25 H 7760681076) CALCIUM (test code = 9.0 mg/dL 8.6-10.6 7497681790) eGFR (test code = mL/min/1.73m2 2812839048) MARINO (test code = MARINO) Association of [...] tests). Lab Interpretation Abnormal (test code = 41611-5) [facility] 13:52:14 Test Item Value Reference Range Interpretation Comments MAGNESIUM (test code = 9426297500) 2.2 mg/dL 1.7-2.4 Lab Interpretation (test code = Normal 81589-0) [facility] [id number] 13:52:14 Test Item Value Reference Range Interpretation Comments PHOSPHORUS (test code = 5685733729) 3.9 mg/dL 2.5-5.0 Lab Interpretation (test code = Normal 39658-3) [facility] (NA, K, CL, CO2, GLUCOSE, BUN, CREATININE, CA)2022-04-13 13:52:14 Test Item Value Reference Range Interpretation Comments NA (test code = 135 mmol/L 135-145 2895984937) K (test code = 4.1 mmol/L 3.5-5.0 1315181624) CL (test code = 100 mmol/L 98-108 2454332022) CO2 TOTAL (test code = 24 mmol/L 23-31 4048363992) AGAP (test code = 2-16 0646690547) BUN (test code = 18 mg/dL 7-23 6366378837) GLUCOSE (test code = 100 mg/dL 70-110 8237484252) CREATININE (test code = 4.28 mg/dL 0.60-1.25 H 1254264990) CALCIUM (test code = 9.0 mg/dL 8.6-10.6 7219578550) eGFR (test code = mL/min/1.73m2 8526672196) MARINO (test code = MARINO) Association of [...] tests). Lab Interpretation Abnormal (test code = 33402-4) [facility] 13:52:14 Test Item Value Reference Range Interpretation Comments MAGNESIUM (test code = 9571656749) 2.2 mg/dL 1.7-2.4 Lab Interpretation (test code = Normal 98851-4) [facility] Rerga1022-07-36 13:52:14 Test Item Value Reference Range Interpretation Comments PHOSPHORUS (test code = 9921212970) 3.9 mg/dL 2.5-5.0 Lab Interpretation (test code = Normal 65204-6) [facility] (for use with Heparin Infusion)2022-04-13 11:34:16 Test Item Value Reference Range Interpretation Comments APTT Patient (test code See_Comment H [Au tomated message] = 3173-2) The system [employer] generated this result transmitted ref erence range: 26 - 36 Seconds. The reference range was not used to int erpret this result as normal/abnormal . Lab Interpretation (test Abnormal code = 95800-2) [facility] (for use with Heparin Infusion)2022-04-13 11:34:16 Test Item Value Reference Range Interpretation Comments APTT Patient (test code See_Comment H [Au tomated message] = 3173-2) The system [employer] generated this result transmitted ref erence range: 26 - 36 Seconds. The reference range was not used to int erpret this result as normal/abnormal . Lab Interpretation (test Abnormal code = 70990-1) [facility] WITHOUT [id number] 11:27:49 Test Item Value Reference Range Interpretation Comments WBC (test code = 6690-2) See_Comment [A utomated message] The system [employer] generated this result transmit rudolph reference range : 4.20 - 10.70 10*3/?L. The reference range was not used to interpret this result as normal/abnormal . RBC (test code = 789-8) See_Comment L [Au tomated message] The system [employer] generated this result transmit rudolph reference range [...] 777-3) See_Comment [Au tomated message] The system [employer] generated this result transmit rudolph reference range : 150 - 328 10*3/?L. The reference range was not used to interpret this result as normal/abnormal . MPV (test code = 11.7 fL 9.8-13.0 87917-0) RDW-CV (test code = 15.5 % 12.1-15.4 H 788-0) RDW-SD (test code = 48.9 fL 38.5-51.6 88972-5) NRBC x10^3 (test code = See_Comment [Au tomated message] 2558407977) The system [employer] generated this result transmit rudolph reference range : 10*3/?L. The reference range was not used to interpret this result as normal/abnormal . NRBC/100 WBC (test code See_Comment [Au tomated message] = 1523663759) The system [facility] generated this result transmit rudolph reference range : 0.0 - 10.0 /100 WBC s. The reference r adama was not used to interpret this result as normal/abnormal . IPF % (test code = 7111894004) Lab Interpretation (test Abnormal code = 57907-7) [facility] WITHOUT [id number] 11:27:49 Test Item Value Reference Range Interpretation Comments WBC (test code = 6690-2) See_Comment [A utomated message] The system [employer] generated this result transmit rudolph reference range : 4.20 - 10.70 10*3/?L. The reference range was not used to interpret this result as normal/abnormal . RBC (test code = 789-8) See_Comment L [Au tomated message] The system [employer] generated this result transmit rudolph reference range [...] 777-3) See_Comment [Au tomated message] The system [employer] generated this result transmit rudolph reference range : 150 - 328 10*3/?L. The reference range was not used to interpret this result as normal/abnormal . MPV (test code = 11.7 fL 9.8-13.0 42977-5) RDW-CV (test code = 15.5 % 12.1-15.4 H 788-0) RDW-SD (test code = 48.9 fL 38.5-51.6 77213-4) NRBC x10^3 (test code = See_Comment [Au tomated message] 6236740935) The system [employer] generated this result transmit rudolph reference range : 10*3/?L. The reference range was not used to interpret this result as normal/abnormal . NRBC/100 WBC (test code See_Comment [Au tomated message] = 7303447460) The system [employer] generated this result transmit rudolph reference range : 0.0 - 10.0 /100 WBC s. The reference r adama was not used to interpret this result as normal/abnormal . IPF % (test code = 0202653777) Lab Interpretation (test Abnormal code = 10171-8) [facility] GLUCOSE (AUTOMATED)2022-04-13 01:42:59 Test Item Value Reference Range Interpretation Comments POCT GLU (test code = 0971900106) 116 mg/dL 70-110 H Lab Interpretation (test code = Abnormal 51722-7) [facility] GLUCOSE (AUTOMATED)2022-04-13 01:42:59 Test Item Value Reference Range Interpretation Comments POCT GLU (test code = 1004008651) 116 mg/dL 70-110 H Lab Interpretation (test code = Abnormal 64749-6) [facility] GLUCOSE (AUTOMATED)2022-04-12 22:13:36 Test Item Value Reference Range Interpretation Comments POCT GLU (test code = 9387725001) 88 mg/dL 70-110 Lab Interpretation (test code = Normal 09054-4) [facility] GLUCOSE (AUTOMATED)2022-04-12 22:13:36 Test Item Value Reference Range Interpretation Comments POCT GLU (test code = 2663397676) 88 mg/dL 70-110 Lab Interpretation (test code = Normal 38625-4) [facility]2022-04-12 19:58:55 Test Item Value Reference Range Interpretation Comments APTT Patient (test code See_Comment H [Au tomated message] = 3173-2) The system [employer] generated this result transmitted ref erence range: 26 - 36 Seconds. The reference range was not used to int erpret this result as normal/abnormal . Lab Interpretation (test Abnormal code = 26139-9) [facility]fusion[facility]2022-04-12 19:58:55 Test Item Value Reference Range Interpretation Comments APTT Patient (test code See_Comment H [Au tomated message] = 3173-2) The system [employer] generated this result transmitted ref erence range: 26 - 36 Seconds. The reference range was not used to int erpret this result as normal/abnormal . Lab Interpretation (test Abnormal code = 79376-7) [facility] GLUCOSE (AUTOMATED)2022-04-12 17:51:49 Test Item Value Reference Range Interpretation Comments POCT GLU (test code = 6268334720) 78 mg/dL 70-110 Lab Interpretation (test code = Normal 48277-7) [facility] GLUCOSE (AUTOMATED)2022-04-12 17:51:49 Test Item Value Reference Range Interpretation Comments POCT GLU (test code = 9091074705) 78 mg/dL 70-110 Lab Interpretation (test code = Normal 96788-7) [facility] GLUCOSE (AUTOMATED)2022-04-12 17:49:21 Test Item Value Reference Range Interpretation Comments POCT GLU (test code = 3026577822) 39 mg/dL 70-110 LL Lab Interpretation (test code = Abnormal 79286-7) [facility] GLUCOSE (AUTOMATED)2022-04-12 17:49:21 Test Item Value Reference Range Interpretation Comments POCT GLU (test code = 4224744653) 39 mg/dL 70-110 LL Lab Interpretation (test code = Abnormal 18652-7) [facility] GLUCOSE (AUTOMATED)2022-04-12 12:30:26 Test Item Value Reference Range Interpretation Comments POCT GLU (test code = 6541597811) 74 mg/dL 70-110 Lab Interpretation (test code = Normal 23846-4) [facility] GLUCOSE (AUTOMATED)2022-04-12 12:30:26 Test Item Value Reference Range Interpretation Comments POCT GLU (test code = 9271686241) 74 mg/dL 70-110 Lab Interpretation (test code = Normal 58579-9) [facility] GLUCOSE (AUTOMATED)2022-04-12 12:27:15 Test Item Value Reference Range Interpretation Comments POCT GLU (test code = 1234205560) 52 mg/dL 70-110 L Lab Interpretation (test code = Abnormal 19091-3) [facility] GLUCOSE (AUTOMATED)2022-04-12 12:27:15 Test Item Value Reference Range Interpretation Comments POCT GLU (test code = 7480160872) 52 mg/dL 70-110 L Lab Interpretation (test code = Abnormal 40706-2) [facility] (for use with Heparin Drip)2022-04-12 12:06:35 Test Item Value Reference Range Interpretation Comments APTT Patient (test code See_Comment [Au tomated message] = 3173-2) The system [employer] generated this result transmitted ref erence range: 26 - 36 Seconds. The reference range was not used to int erpret this result as normal/abnormal . Lab Interpretation (test Abnormal code = 53660-2) [facility] (for use with Heparin Drip)2022-04-12 12:06:35 Test Item Value Reference Range Interpretation Comments APTT Patient (test code See_Comment [Au tomated message] = 3173-2) The system [employer] generated this result transmitted ref erence range: 26 - 36 Seconds. The reference range was not used to int erpret this result as normal/abnormal . Lab Interpretation (test Abnormal code = 17047-0) [facility] [id number] 09:30:55 Test Item Value Reference Range Interpretation Comments IONIZED CA (test code = 4.00 mg/dL 4.50-5.30 L 5058729769) PH SERUM (test code = 9744932413) 7.35-7.45 QUES Lab Interpretation (test code = Abnormal 26824-7) [facility] [id number] 09:30:55 Test Item Value Reference Range Interpretation Comments IONIZED CA (test code = 4.00 mg/dL 4.50-5.30 L 2567116305) PH SERUM (test code = 1140129143) 7.35-7.45 QUES Lab Interpretation (test code = Abnormal 52123-1) [facility] METABOLIC PANEL (NA, K, CL, CO2, GLUCOSE, BUN, CREATININE, CA)2022-04-12 09:29:35 Test Item Value Reference Range Interpretation Comments NA (test code = 138 mmol/L 135-145 4265700152) K (test code = 3.8 mmol/L 3.5-5.0 2680294504) CL (test code = 106 mmol/L 98-108 8453358410) CO2 TOTAL (test code = 22 mmol/L 23-31 L 3216259330) AGAP (test code = 2-16 0775489811) BUN (test code = 26 mg/dL 7-23 H 8473743670) GLUCOSE (test code = 70 mg/dL 70-110 9080845903) CREATININE (test code = 6.30 mg/dL 0.60-1.25 H 0203753747) CALCIUM (test code = 8.4 mg/dL 8.6-10.6 L 8255700469) eGFR (test code = mL/min/1.73m2 7618080421) MARINO (test code = MARINO) Association of [...] tests). Lab Interpretation Abnormal (test code = 24778-8) [facility] (NA, K, CL, CO2, GLUCOSE, BUN, CREATININE, CA)2022-04-12 09:29:35 Test Item Value Reference Range Interpretation Comments NA (test code = 138 mmol/L 135-145 8600375099) K (test code = 3.8 mmol/L 3.5-5.0 6142521517) CL (test code = 106 mmol/L 98-108 3320259549) CO2 TOTAL (test code = 22 mmol/L 23-31 L 9132958290) AGAP (test code = 2-16 5061226231) BUN (test code = 26 mg/dL 7-23 H 2273474826) GLUCOSE (test code = 70 mg/dL 70-110 5514825864) CREATININE (test code = 6.30 mg/dL 0.60-1.25 H 1938559493) CALCIUM (test code = 8.4 mg/dL 8.6-10.6 L 0831392865) eGFR (test code = mL/min/1.73m2 9655505908) MARINO (test code = MARINO) Association of [...] tests). Lab Interpretation Abnormal (test code = 30414-4) [facility] Test Item Value Reference Range Interpretation Comments MAGNESIUM (test code = 8304430788) 2.5 mg/dL 1.7-2.4 H Lab Interpretation (test code = Abnormal 89420-4) [facility] [id number] 09:26:33 Test Item Value Reference Range Interpretation Comments PHOSPHORUS (test code = 2006109679) 4.2 mg/dL 2.5-5.0 Lab Interpretation (test code = Normal 85325-4) [facility]:26[facility] Test Item Value Reference Range Interpretation Comments MAGNESIUM (test code = 3202723853) 2.5 mg/dL 1.7-2.4 H Lab Interpretation (test code = Abnormal 46858-4) [facility] [id number] 09:26:33 Test Item Value Reference Range Interpretation Comments PHOSPHORUS (test code = 6847967085) 4.2 mg/dL 2.5-5.0 Lab Interpretation (test code = Normal 38230-4) [facility] WITHOUT [id number] 09:08:13 Test Item Value Reference Range Interpretation Comments WBC (test code = 6690-2) See_Comment [A utomated message] The system [employer] generated this result transmit rudolph reference range : 4.20 - 10.70 10*3/?L. The reference range was not used to interpret this result as normal/abnormal . RBC (test code = 789-8) See_Comment L [Au tomated message] The system [employer] h generated this result transmit rudolph reference [...] 777-3) See_Comment [Au tomated message] The system [facility] generated this result transmit rudolph reference range : 150 - 328 10*3/?L. The reference range was not used to interpret this result as normal/abnormal . MPV (test code = 11.6 fL 9.8-13.0 02186-8) RDW-CV (test code = 15.6 % 12.1-15.4 H 788-0) RDW-SD (test code = 48.4 fL 38.5-51.6 56496-1) NRBC x10^3 (test code = See_Comment [Au tomated message] 9071383287) The system [facility] generated this result transmit rudolph reference range : 10*3/?L. The reference range was not used to interpret this result as normal/abnormal . NRBC/100 WBC (test code See_Comment [Au tomated message] = 1309879479) The system [facility] generated this result transmit rudolph reference range : 0.0 - 10.0 /100 WBC s. The reference r adama was not used to interpret this result as normal/abnormal . IPF % (test code = 7277792021) Lab Interpretation (test Abnormal code = 72093-2) [facility] WITHOUT [id number] 09:08:13 Test Item Value Reference Range Interpretation Comments WBC (test code = 6690-2) See_Comment [A utomated message] The system [facility] generated this result transmit rudolph reference range : 4.20 - 10.70 10*3/?L. The reference range was not used to interpret this result as normal/abnormal . RBC (test code = 789-8) See_Comment L [Au tomated message] The system [facility] generated this result transmit rudolph reference [...] 777-3) See_Comment [Au tomated message] The system [employer] generated this result transmit rudolph reference range : 150 - 328 10*3/?L. The reference range was not used to interpret this result as normal/abnormal . MPV (test code = 11.6 fL 9.8-13.0 34645-2) RDW-CV (test code = 15.6 % 12.1-15.4 H 788-0) RDW-SD (test code = 48.4 fL 38.5-51.6 72240-6) NRBC x10^3 (test code = See_Comment [Au tomated message] 4971997081) The system [employer] generated this result transmit rudolph reference range : 10*3/?L. The reference range was not used to interpret this result as normal/abnormal . NRBC/100 WBC (test code See_Comment [Au tomated message] = 3746623164) The system [employer] generated this result transmit rudolph reference range : 0.0 - 10.0 /100 WBC s. The reference r adama was not used to interpret this result as normal/abnormal . IPF % (test code = 6109447978) Lab Interpretation (test Abnormal code = 73599-0) [facility] Drip[facility]2022-04-12 05:39:48 Test Item Value Reference Range Interpretation Comments APTT Patient (test code See_Comment [Au tomated message] = 3173-2) The system [employer] generated this result transmitted ref erence range: 26 - 36 Seconds. The reference range was not used to int erpret this result as normal/abnormal . Lab Interpretation (test Abnormal code = 37009-3) [facility] (for use with Heparin Drip)2022-04-12 05:39:48 Test Item Value Reference Range Interpretation Comments APTT Patient (test code See_Comment HH [Au tomated message] = 8623-2) The system [employer] generated this result transmitted ref erence range: 26 - 36 Seconds. The reference range was not used to int erpret this result as normal/abnormal . Lab Interpretation (test Abnormal code = 82626-6) [facility] GLUCOSE (AUTOMATED)2022-04-12 01:50:33 Test Item Value Reference Range Interpretation Comments POCT GLU (test code = 3486434470) 146 mg/dL 70-110 H Lab Interpretation (test code = Abnormal 50874-0) [facility] GLUCOSE (AUTOMATED)2022-04-12 01:50:33 Test Item Value Reference Range Interpretation Comments POCT GLU (test code = 3306205444) 146 mg/dL 70-110 H Lab Interpretation (test code = Abnormal 93985-6) [facility] GLUCOSE (AUTOMATED)2022-04-11 22:53:38 Test Item Value Reference Range Interpretation Comments POCT GLU (test code = 5085408182) 163 mg/dL 70-110 H Lab Interpretation (test code = Abnormal 41610-4) [facility] GLUCOSE (AUTOMATED)2022-04-11 22:53:38 Test Item Value Reference Range Interpretation Comments POCT GLU (test code = 0888047787) 163 mg/dL 70-110 H Lab Interpretation (test code = Abnormal 90739-4) [facility] (for use with Heparin Infusion)2022-04-11 18:54:56 Test Item Value Reference Range Interpretation Comments APTT Patient (test code = See_Comment [ Automated message] 9493-2) The system [employer] generated this result transmitted ref erence range: 26 - 36 Seconds. The re ference range was not u sed to interpret this result as normal/abnor mal. Lab Interpretation (test Normal code = 64566-5) [facility] (for use with Heparin Infusion)2022-04-11 18:54:56 Test Item Value Reference Range Interpretation Comments APTT Patient (test code = See_Comment [ Automated message] 3173-2) The system [employer] generated this result transmitted ref erence range: 26 - 36 Seconds. The re ference range was not u sed to interpret this result as normal/abnor mal. Lab Interpretation (test Normal code = 88894-4) [facility]2022-04-11 18:54:56 Test Item Value Reference Range Interpretation Comments APTT Patient (test code = See_Comment [ Automated message] 3173-2) The system [employer] generated this result transmitted ref erence range: 26 - 36 Seconds. The re ference range was not u sed to interpret this result as normal/abnor mal. Lab Interpretation (test Normal code = 90829-6) [facility] GLUCOSE (AUTOMATED)2022-04-11 17:46:56 Test Item Value Reference Range Interpretation Comments POCT GLU (test code = 6068794908) 137 mg/dL 70-110 H Lab Interpretation (test code = Abnormal 93926-9) [facility] GLUCOSE (AUTOMATED)2022-04-11 17:46:56 Test Item Value Reference Range Interpretation Comments POCT GLU (test code = 3332629066) 137 mg/dL 70-110 H Lab Interpretation (test code = Abnormal 22663-8) [facility] GLUCOSE (AUTOMATED)2022-04-11 17:46:56 Test Item Value Reference Range Interpretation Comments POCT GLU (test code = 7232013820) 137 mg/dL 70-110 H Lab Interpretation (test code = Abnormal 97928-8) [facility] GLUCOSE (AUTOMATED)2022-04-11 13:38:30 Test Item Value Reference Range Interpretation Comments POCT GLU (test code = 4392729173) 184 mg/dL 70-110 H Lab Interpretation (test code = Abnormal 30342-9) [facility] GLUCOSE (AUTOMATED)2022-04-11 13:38:30 Test Item Value Reference Range Interpretation Comments POCT GLU (test code = 1376441835) 184 mg/dL 70-110 H Lab Interpretation (test code = Abnormal 47997-7) [facility] GLUCOSE (AUTOMATED)2022-04-11 13:38:30 Test Item Value Reference Range Interpretation Comments POCT GLU (test code = 5414628682) 184 mg/dL 70-110 H Lab Interpretation (test code = Abnormal 78231-5) [facility] Metabolic Panel (NA, K, CL, CO2, GLUCOSE, BUN, CREATININE, CA)2022-04-11 05:57:34 Test Item Value Reference Range Interpretation Comments NA (test code = 133 mmol/L 135-145 L 4481579607) K (test code = 4.6 mmol/L 3.5-5.0 1083005792) CL (test code = 103 mmol/L 98-108 2422877894) CO2 TOTAL (test code = 21 mmol/L 23-31 L 0016137034) AGAP (test code = 2-16 2930940142) BUN (test code = 17 mg/dL 7-23 5177357527) GLUCOSE (test code = 177 mg/dL 70-110 H 8534036713) CREATININE (test code = 4.35 mg/dL 0.60-1.25 H 3957249803) CALCIUM (test code = 8.7 mg/dL 8.6-10.6 0635937362) eGFR (test code = mL/min/1.73m2 2041547196) MARINO (test code = MARINO) Association of [...] tests). Lab Interpretation Abnormal (test code = 37746-9) [facility] Atkoo1066-11-02 05:57:34 Test Item Value Reference Range Interpretation Comments MAGNESIUM (test code = 0387680792) 1.9 mg/dL 1.7-2.4 Lab Interpretation (test code = Normal 74593-1) [facility] [id number] 05:57:34 Test Item Value Reference Range Interpretation Comments PHOSPHORUS (test code = 1297838544) 4.5 mg/dL 2.5-5.0 Lab Interpretation (test code = Normal 55090-6) [facility] Metabolic Panel (NA, K, CL, CO2, GLUCOSE, BUN, CREATININE, CA)2022-04-11 05:57:34 Test Item Value Reference Range Interpretation Comments NA (test code = 133 mmol/L 135-145 L 2819238870) K (test code = 4.6 mmol/L 3.5-5.0 0744314747) CL (test code = 103 mmol/L 98-108 6893437319) CO2 TOTAL (test code = 21 mmol/L 23-31 L 7763970328) AGAP (test code = 2-16 9019332730) BUN (test code = 17 mg/dL 7-23 4552875560) GLUCOSE (test code = 177 mg/dL 70-110 H 6152657490) CREATININE (test code = 4.35 mg/dL 0.60-1.25 H 8443616563) CALCIUM (test code = 8.7 mg/dL 8.6-10.6 9024337062) eGFR (test code = mL/min/1.73m2 7115446563) MARINO (test code = MARINO) Association of [...] tests). Lab Interpretation Abnormal (test code = 55096-9) [facility] Cijuz4640-60-48 05:57:34 Test Item Value Reference Range Interpretation Comments MAGNESIUM (test code = [id number]) 1.9 mg/dL 1.7-2.4 Lab Interpretation (test code = Normal 29324-4) [facility] [id number] 05:57:34 Test Item Value Reference Range Interpretation Comments PHOSPHORUS (test code = 4615819831) 4.5 mg/dL 2.5-5.0 Lab Interpretation (test code = Normal 04178-6) [facility] (NA, K, CL, CO2, GLUCOSE, BUN, CREATININE, CA)2022-04-11 05:57:34 Test Item Value Reference Range Interpretation Comments NA (test code = 133 mmol/L 135-145 L 4854029911) K (test code = 4.6 mmol/L 3.5-5.0 4774105845) CL (test code = 103 mmol/L 98-108 4291816907) CO2 TOTAL (test code = 21 mmol/L 23-31 L 6533921579) AGAP (test code = 2-16 5689740080) BUN (test code = 17 mg/dL 7-23 4608323068) GLUCOSE (test code = 177 mg/dL 70-110 H 1456161314) CREATININE (test code = 4.35 mg/dL 0.60-1.25 H 9680683591) CALCIUM (test code = 8.7 mg/dL 8.6-10.6 4813477221) eGFR (test code = mL/min/1.73m2 4368328883) MARINO (test code = MARINO) Association of [...] tests). Lab Interpretation Abnormal (test code = 77094-4) [facility] [id number] 05:57:34 Test Item Value Reference Range Interpretation Comments MAGNESIUM (test code = 8157028644) 1.9 mg/dL 1.7-2.4 Lab Interpretation (test code = Normal 36104-8) [facility] Aevxy7467-73-25 05:57:34 Test Item Value Reference Range Interpretation Comments PHOSPHORUS (test code = 7220881870) 4.5 mg/dL 2.5-5.0 Lab Interpretation (test code = Normal 95357-8) [facility] with Gkgryggxmekx0219-72-54 05:34:27 Test Item Value Reference Range Interpretation [...] RDW-SD (test code = 46.6 fL 38.5-51.6 90378-0) RDW-CV (test code = 14.6 % 12.1-15.4 788-0) PLT (test code = See_Comment [Automated 777-3) message] The system which generated this result transmit urdolph reference range : 150 - 328 10*3/ ?L. The reference range was not u sed to interpret th is result as normal/abnormal . MPV (test code = 11.3 fL 9.8-13.0 69382-1) NRBC/100 WBC (test See_Comment [Automat ed code = 2699432984) message] The system which generated this result transmit rudolph reference range : 0.0 - 10.0 /100 WBCs. The reference range was not used to interpret this result as normal/abnormal . NRBC x10^3 (test code See_Comment [Auto mated = 7814423717) message] The system which generated this result transmit rudolph reference range : 10*3/?L. The reference range was not used to interpret this result as normal/abnormal . GRAN MAT (NEUT) % 90.4 % (test code = 770-8) IMM GRAN % (test code 0.80 % = 8506662917) LYMPH % (test code = 4.0 % 736-9) MONO % (test code = 4.5 % 5905-5) EOS % (test code = 0.1 % 713-8) BASO % (test code = 0.2 % 706-2) GRAN MAT x10^3(ANC) 13.99 10*3/uL 1.99-6.95 H (test code = 8658326164) IMM GRAN x10^3 (test 0.13 10*3/uL 0.00-0.06 H code = 1297775456) LYMPH x10^3 (test code 0.62 10*3/uL 1.09-3.23 L = 731-0) MONO x10^3 (test code 0.70 10*3/uL 0.36-1.02 = 742-7) EOS x10^3 (test code = 0.06-0.53 L 711-2) BASO x10^3 (test code 0.03 10*3/uL 0.01-0.09 = 704-7) Lab Interpretation Abnormal (test code = 73506-3) [facility] with Imoeorzfnurp1987-70-37 05:34:27 Test Item Value Reference Range Interpretation Comments WBC (test code = See_Comment H [Automated 1190-2) message] The system which generated this result transmit rudolph reference range : 4.20 - 10.70 10*3/?L. The reference range was not used to interpret this result as normal/abnormal . RBC (test code = See_Comment L [Automated 309-8) message] The system which generated this result [...] RDW-SD (test code = 46.6 fL 38.5-51.6 99876-4) RDW-CV (test code = 14.6 % 12.1-15.4 788-0) PLT (test code = See_Comment [Automated 777-3) message] The system which generated this result transmit rudolph reference range : 150 - 328 10*3/ ?L. The reference range was not u sed to interpret th is result as normal/abnormal . MPV (test code = 11.3 fL 9.8-13.0 90839-4) NRBC/100 WBC (test See_Comment [Automat ed code = 9278961460) message] The system which generated this result transmit rudolph reference range : 0.0 - 10.0 /100 WBCs. The reference range was not used to interpret this result as normal/abnormal . NRBC x10^3 (test code See_Comment [Auto mated = 8545034506) message] The system which generated this result transmit rudolph reference range : 10*3/?L. The reference range was not used to interpret this result as normal/abnormal . GRAN MAT (NEUT) % 90.4 % (test code = 770-8) IMM GRAN % (test code 0.80 % = 7745541285) LYMPH % (test code = 4.0 % 736-9) MONO % (test code = 4.5 % 5905-5) EOS % (test code = 0.1 % 713-8) BASO % (test code = 0.2 % 706-2) GRAN MAT x10^3(ANC) 13.99 10*3/uL 1.99-6.95 H (test code = 8755479528) IMM GRAN x10^3 (test 0.13 10*3/uL 0.00-0.06 H code = 5215693761) LYMPH x10^3 (test code 0.62 10*3/uL 1.09-3.23 L = 731-0) MONO x10^3 (test code 0.70 10*3/uL 0.36-1.02 = 742-7) EOS x10^3 (test code = 0.06-0.53 L 711-2) BASO x10^3 (test code 0.03 10*3/uL 0.01-0.09 = 704-7) Lab Interpretation Abnormal (test code = 32010-5) [facility] with Rqlpmvyqawfi1145-61-19 05:34:27 Test Item Value Reference Range Interpretation [...] RDW-SD (test code = 46.6 fL 38.5-51.6 52122-4) RDW-CV (test code = 14.6 % 12.1-15.4 788-0) PLT (test code = See_Comment [Automated 777-3) message] The system which generated this result transmit rudolph reference range : 150 - 328 10*3/ ?L. The reference range was not u sed to interpret th is result as normal/abnormal . MPV (test code = 11.3 fL 9.8-13.0 59631-6) NRBC/100 WBC (test See_Comment [Automat ed code = 3659080474) message] The system which generated this result transmit rudolph reference range : 0.0 - 10.0 /100 WBCs. The reference range was not used to interpret this result as normal/abnormal . NRBC x10^3 (test code See_Comment [Auto mated = 0472236664) message] The system which generated this result transmit rudolph reference range : 10*3/?L. The reference range was not used to interpret this result as normal/abnormal . GRAN MAT (NEUT) % 90.4 % (test code = 770-8) IMM GRAN % (test code 0.80 % = 9471837369) LYMPH % (test code = 4.0 % 736-9) MONO % (test code = 4.5 % 5905-5) EOS % (test code = 0.1 % 713-8) BASO % (test code = 0.2 % 706-2) GRAN MAT x10^3(ANC) 13.99 10*3/uL 1.99-6.95 H (test code = 0898810556) IMM GRAN x10^3 (test 0.13 10*3/uL 0.00-0.06 H code = 5089714910) LYMPH x10^3 (test code 0.62 10*3/uL 1.09-3.23 L = 731-0) MONO x10^3 (test code 0.70 10*3/uL 0.36-1.02 = 742-7) EOS x10^3 (test code = 0.06-0.53 L 711-2) BASO x10^3 (test code 0.03 10*3/uL 0.01-0.09 = 704-7) Lab Interpretation Abnormal (test code = 72771-8) [facility] + Lactic Pxnf6814-95-86 05:33:21 Test Item Value Reference Range Interpretation Comments PH (test code = 2) 7.35-7.45 PCO2 (test code = See_Comment L [Automate d 0813052976) message] The sy stem which generated this result transmitted reference range : 35 - 45 mmHg. The reference range was not used to interpret this result as normal/abnormal . PO2 (test code = See_Comment H [Automated 8244280235) message] The sy stem which generated this result transmitted reference range : 80 - 100 mmHg. The reference range was not used to interpret this result as normal/abnormal . HCO3 (test code = See_Comment L [Automate d 4831933525) message] The sy stem which generated this result transmitted reference range : 22 - 26 mEq/L. The reference range was not used to interpret this result as normal/abnormal . BE (test code = See_Comment L [Automated 8977109060) message] The sy stem which generated this result transmitted reference range : -3.0 - 3.0 mEq/ L. The reference r adama was not used to interpret this result as normal/abnormal . THB (test code = 10.8 g/dL 13.5-18.0 L 8717131112) %O2HB (test code = 99.1 % 94.0-99.0 H 5364381683) %COHB ART (test code = 0.3 % 0.0-1.5 4900091463) %METHB ART (test code = 0.0 % 0.4-1.5 L 3196759658) VOL%O2 ART (test code = 15.6 % 15.0-23.0 4846404768) NA (test code = 131 mmol/L 135-145 L 1819067920) K+ (test code = 4.5 mmol/L 3.5-5.0 0799575137) AC CA IONZ (test code = 5.00 mg/dL 4.50-5.30 4987091039) GLUCOSE (test code = 174 mg/dL 70-110 H 4487790558) LACTIC ACID (test code 1.30 mmol/L 0.50-2.20 = 8490877901) Lab Interpretation Abnormal (test code = 16171-8) [facility] + Lactic Gcuv5709-60-22 05:33:21 Test Item Value Reference Range Interpretation Comments PH (test code = 2) 7.35-7.45 PCO2 (test code = See_Comment L [Automate d 5560751075) message] The sy stem which generated this result transmitted reference range : 35 - 45 mmHg. The reference range was not used to interpret this result as normal/abnormal . PO2 (test code = See_Comment H [Automated 2340723074) message] The sy stem which generated this result transmitted reference range : 80 - 100 mmHg. The reference range was not used to interpret this result as normal/abnormal . HCO3 (test code = See_Comment L [Automate d 2684833770) message] The sy stem which generated this result transmitted reference range : 22 - 26 mEq/L. The reference range was not used to interpret this result as normal/abnormal . BE (test code = See_Comment L [Automated 7269956687) message] The sy stem which generated this result transmitted reference range : -3.0 - 3.0 mEq/ L. The reference r adama was not used to interpret this result as normal/abnormal . THB (test code = 10.8 g/dL 13.5-18.0 L 6629368734) %O2HB (test code = 99.1 % 94.0-99.0 H 9052367282) %COHB ART (test code = 0.3 % 0.0-1.5 7453505347) %METHB ART (test code = 0.0 % 0.4-1.5 L 5775493709) VOL%O2 ART (test code = 15.6 % 15.0-23.0 0980883790) NA (test code = 131 mmol/L 135-145 L 9776208251) K+ (test code = 4.5 mmol/L 3.5-5.0 6990444519) AC CA IONZ (test code = 5.00 mg/dL 4.50-5.30 0629475697) GLUCOSE (test code = 174 mg/dL 70-110 H 9679469252) LACTIC ACID (test code 1.30 mmol/L 0.50-2.20 = 5303609151) Lab Interpretation Abnormal (test code = 98468-9) [facility] + Lactic Pafs1961-64-45 05:33:21 Test Item Value Reference Range Interpretation Comments PH (test code = 2) 7.35-7.45 PCO2 (test code = See_Comment L [Automate d 2442330653) message] The sy stem which generated this result transmitted reference range : 35 - 45 mmHg. The reference range was not used to interpret this result as normal/abnormal . PO2 (test code = See_Comment H [Automated 8000165536) message] The sy stem which generated this result transmitted reference range : 80 - 100 mmHg. The reference range was not used to interpret this result as normal/abnormal . HCO3 (test code = See_Comment L [Automate d 5152257204) message] The sy stem which generated this result transmitted reference range : 22 - 26 mEq/L. The reference range was not used to interpret this result as normal/abnormal . BE (test code = See_Comment L [Automated 7696553572) message] The sy stem which generated this result transmitted reference range : -3.0 - 3.0 mEq/ L. The reference r adama was not used to interpret this result as normal/abnormal . THB (test code = 10.8 g/dL 13.5-18.0 L 1362779996) %O2HB (test code = 99.1 % 94.0-99.0 H 6283904066) %COHB ART (test code = 0.3 % 0.0-1.5 5431610510) %METHB ART (test code = 0.0 % 0.4-1.5 L 7588900604) VOL%O2 ART (test code = 15.6 % 15.0-23.0 4418386721) NA (test code = 131 mmol/L 135-145 L 1711114411) K+ (test code = 4.5 mmol/L 3.5-5.0 3441740767) AC CA IONZ (test code = 5.00 mg/dL 4.50-5.30 3053155683) GLUCOSE (test code = 174 mg/dL 70-110 H 3758617723) LACTIC ACID (test code 1.30 mmol/L 0.50-2.20 = 8087085672) Lab Interpretation Abnormal (test code = 09332-3) [facility] Packed RBC (in units), 2 Units 2022-04-11 02:31:54 Test Item Value Reference Range Interpretation Comments Cross Match Result Compatible (test code = 4409) ISBT Blood Type Code (test code = 413111) Unit Blood Type (test O Pos code = 4410) Unit Number (test [id number] code = 4411) Blood Expiration Date & Time (test code = 362445) Status Information Issued (test code = 4412) Product Red Blood Cells Identification (test code = 4413) Product Code (test [id number] Performed at [facility] code = 4414) Laboratory Services - [facility] Blood [address] [address]Vspz Free: [phone] A No. [id number] [facility] Packed RBC (in units), 2 Units 2022-04-11 02:31:54 Test Item Value Reference Range Interpretation Comments Cross Match Result Compatible (test code = 4409) ISBT Blood Type Code (test code = 444609) Unit Blood Type (test O Pos code = 4410) Unit Number (test [id number] code = 4411) Blood Expiration Date & Time (test code = 100878) Status Information Issued (test code = 4412) Product Red Blood Cells Identification (test code = 4413) Product Code (test [id number] Performed at [facility] code = 4414) Laboratory Services - [facility] Blood [address] [address]Zxrj Free: [phone] A No. [id number] [facility] Packed RBC (in units), 2 Units 2022-04-11 02:31:54 Test Item Value Reference Range Interpretation Comments Cross Match Result Compatible (test code = 4409) ISBT Blood Type Code (test code = 810636) Unit Blood Type (test O Pos code = 4410) Unit Number (test [id number] code = 4411) Blood Expiration Date & Time (test code = 085775) Status Information Issued (test code = 4412) Product Red Blood Cells Identification (test code = 4413) Product Code (test [id number] Performed at [facility] code = 4414) Laboratory Services - [facility] Blood [address] [address]Cceh Free: [phone] A No. [id number] [facility] DIALYSIS [id number] 17:30:03 Test Item Value Reference Range Interpretation Comments PostBUN (test code = 5754400805) 13 mg/dl 7-23 Lab Interpretation (test code = Normal 87652-2) [facility] DIALYSIS [id number] 17:30:03 Test Item Value Reference Range Interpretation Comments PostBUN (test code = 1647935495) 13 mg/dl 7-23 Lab Interpretation (test code = Normal 09378-2) [facility] DIALYSIS [id number] 17:30:03 Test Item Value Reference Range Interpretation Comments PostBUN (test code = 7624333008) 13 mg/dl 7-23 Lab Interpretation (test code = Normal 12102-5) [facility] GLUCOSE (AUTOMATED)2022-04-10 14:35:17 Test Item Value Reference Range Interpretation Comments POCT GLU (test code = 7475407215) 118 mg/dL 70-110 H Lab Interpretation (test code = Abnormal 37624-8) [facility] GLUCOSE (AUTOMATED)2022-04-10 14:35:17 Test Item Value Reference Range Interpretation Comments POCT GLU (test code = 4845588960) 118 mg/dL 70-110 H Lab Interpretation (test code = Abnormal 26872-9) [facility] GLUCOSE (AUTOMATED)2022-04-10 14:35:17 Test Item Value Reference Range Interpretation Comments POCT GLU (test code = 0745568833) 118 mg/dL 70-110 H Lab Interpretation (test code = Abnormal 89617-9) [facility] METABOLIC PANEL (NA, K, CL, CO2, GLUCOSE, BUN, CREATININE, CA)2022-04-10 10:16:01 Test Item Value Reference Range Interpretation Comments NA (test code = 136 mmol/L 135-145 6279583897) K (test code = 4.8 mmol/L 3.5-5.0 Slight 8894058113) hemolysis CL (test code = 102 mmol/L 98-108 0666574603) CO2 TOTAL (test code 27 mmol/L 23-31 = 7253156844) AGAP (test code = 2-16 0091380781) BUN (test code = 36 mg/dL 7-23 H Slight 1664894960) hemolysis GLUCOSE (test code = 143 mg/dL 70-110 H 0625749808) CREATININE (test code 6.92 mg/dL 0.60-1.25 H = 0084201504) CALCIUM (test code = 8.7 mg/dL 8.6-10.6 6876150333) eGFR (test code = mL/min/1.73m2 6646751647) MARINO (test code = MARINO) Association of [...] tests). Lab Interpretation Abnormal (test code = 69979-8) [facility]2022-10-26 10:16:01 Test Item Value Reference Range Interpretation Comments MAGNESIUM (test code = 9503699482) 2.6 mg/dL 1.7-2.4 H Lab Interpretation (test code = Abnormal 48543-7) [facility]2022-10-26 10:16:01 Test Item Value Reference Range Interpretation Comments PHOSPHORUS (test code = 9130615993) 4.3 mg/dL 2.5-5.0 Lab Interpretation (test code = Normal 80535-3) [facility]OL[facility] (NA, K, CL, CO2, GLUCOSE, BUN, CREATININE, CA)2022-04-10 10:16:01 Test Item Value Reference Range Interpretation Comments NA (test code = 136 mmol/L 135-145 4779712444) K (test code = 4.8 mmol/L 3.5-5.0 Slight 3267668652) hemolysis CL (test code = 102 mmol/L 98-108 5856953873) CO2 TOTAL (test code 27 mmol/L 23-31 = 6074690705) AGAP (test code = 2-16 3594684919) BUN (test code = 36 mg/dL 7-23 H Slight 9608734559) hemolysis GLUCOSE (test code = 143 mg/dL 70-110 H 2675464167) CREATININE (test code 6.92 mg/dL 0.60-1.25 H = 1704395282) CALCIUM (test code = 8.7 mg/dL 8.6-10.6 5473688540) eGFR (test code = mL/min/1.73m2 1863785214) MARINO (test code = MARINO) Association of [...] tests). Lab Interpretation Abnormal (test code = 37254-7) [facility]2022-10-26 10:16:01 Test Item Value Reference Range Interpretation Comments MAGNESIUM (test code = 5420885198) 2.6 mg/dL 1.7-2.4 H Lab Interpretation (test code = Abnormal 35712-5) [facility]2022-10-26 10:16:01 Test Item Value Reference Range Interpretation Comments PHOSPHORUS (test code = 8865862435) 4.3 mg/dL 2.5-5.0 Lab Interpretation (test code = Normal 07793-2) [facility] (NA, K, CL, CO2, GLUCOSE, BUN, CREATININE, CA)2022-04-10 10:16:01 Test Item Value Reference Range Interpretation Comments NA (test code = 136 mmol/L 135-145 9694087801) K (test code = 4.8 mmol/L 3.5-5.0 Slight 7555834177) hemolysis CL (test code = 102 mmol/L 98-108 5968556940) CO2 TOTAL (test code 27 mmol/L 23-31 = 6605370349) AGAP (test code = 2-16 8650432255) BUN (test code = 36 mg/dL 7-23 H Slight 1402928517) hemolysis GLUCOSE (test code = 143 mg/dL 70-110 H 3868364897) CREATININE (test code 6.92 mg/dL 0.60-1.25 H = 7036893912) CALCIUM (test code = 8.7 mg/dL 8.6-10.6 8874647274) eGFR (test code = mL/min/1.73m2 3599047789) MARINO (test code = MARINO) Association of [...] tests). Lab Interpretation Abnormal (test code = 30649-7) [facility]2022-[facility]-26 10:16:01 Test Item Value Reference Range Interpretation Comments MAGNESIUM (test code = 5570994638) 2.6 mg/dL 1.7-2.4 H Lab Interpretation (test code = Abnormal 82862-9) [facility]2022-10-26 10:16:01 Test Item Value Reference Range Interpretation Comments PHOSPHORUS (test code = 8957656389) 4.3 mg/dL 2.5-5.0 Lab Interpretation (test code = Normal 33433-4) [facility] WITH [id number] 10:04:20 Test Item Value Reference Range Interpretation Comments WBC (test code = See_Comment [Automated 3410-2) message] The sy stem which generated this result transmitted reference range : 4.20 - 10.70 10*3/?L. The reference range was not used to interpret this result as normal/abnormal . RBC (test code = See_Comment L [Automated 674-8) message] The sy stem which generated this [...] RDW-SD (test code = 47.7 fL 38.5-51.6 63239-6) RDW-CV (test code = 15.1 % 12.1-15.4 788-0) PLT (test code = See_Comment [Automated 777-3) message] The sy stem which generated this result transmitted reference range : 150 - 328 10*3/ ?L. The reference r adama was not used to interpret this result as normal/abnormal . MPV (test code = 12.0 fL 9.8-13.0 51541-8) NRBC/100 WBC (test See_Comment [Automat ed code = 4180141324) message] The system which generated this result transmitted reference range : 0.0 - 10.0 /100 WBCs. The refer ence range was not u sed to interpret th is result as normal/abnormal . NRBC x10^3 (test code See_Comment [Auto mated = 7298949239) message] The s ystem which generated this result transmitted reference range : 10*3/?L. The reference range was not used to interpret this result as normal/abnormal . GRAN MAT (NEUT) % 70.6 % (test code = 770-8) IMM GRAN % (test code 0.50 % = 6535573764) LYMPH % (test code = 13.5 % 736-9) MONO % (test code = 11.3 % 5905-5) EOS % (test code = 3.1 % 713-8) BASO % (test code = 1.0 % 706-2) GRAN MAT x10^3(ANC) 5.71 10*3/uL 1.99-6.95 (test code = 6712677914) IMM GRAN x10^3 (test 0.04 10*3/uL 0.00-0.06 code = 8368523954) LYMPH x10^3 (test code 1.09 10*3/uL 1.09-3.23 = 731-0) MONO x10^3 (test code 0.91 10*3/uL 0.36-1.02 = 742-7) EOS x10^3 (test code = 0.25 10*3/uL 0.06-0.53 711-2) BASO x10^3 (test code 0.08 10*3/uL 0.01-0.09 = 704-7) Lab Interpretation Abnormal (test code = 20142-7) [facility] WITH [id number] 10:04:20 Test Item Value Reference Range Interpretation Comments WBC (test code = See_Comment [Automated 9490-2) message] The sy stem which generated this result transmitted reference range : 4.20 - 10.70 10*3/?L. The reference range was not used to interpret this result as normal/abnormal . RBC (test code = See_Comment L [Automated 499-8) message] The sy stem which generated this [...] RDW-SD (test code = 47.7 fL 38.5-51.6 71168-4) RDW-CV (test code = 15.1 % 12.1-15.4 788-0) PLT (test code = See_Comment [Automated 777-3) message] The sy stem which generated this result transmitted reference range : 150 - 328 10*3/ ?L. The reference r adama was not used to interpret this result as normal/abnormal . MPV (test code = 12.0 fL 9.8-13.0 11652-7) NRBC/100 WBC (test See_Comment [Automat ed code = 6962043050) message] The system which generated this result transmitted reference range : 0.0 - 10.0 /100 WBCs. The refer ence range was not u sed to interpret th is result as normal/abnormal . NRBC x10^3 (test code See_Comment [Auto mated = 0104516001) message] The s ystem which generated this result transmitted reference range : 10*3/?L. The reference range was not used to interpret this result as normal/abnormal . GRAN MAT (NEUT) % 70.6 % (test code = 770-8) IMM GRAN % (test code 0.50 % = 5387357320) LYMPH % (test code = 13.5 % 736-9) MONO % (test code = 11.3 % 5905-5) EOS % (test code = 3.1 % 713-8) BASO % (test code = 1.0 % 706-2) GRAN MAT x10^3(ANC) 5.71 10*3/uL 1.99-6.95 (test code = 2640464142) IMM GRAN x10^3 (test 0.04 10*3/uL 0.00-0.06 code = 8400981503) LYMPH x10^3 (test code 1.09 10*3/uL 1.09-3.23 = 731-0) MONO x10^3 (test code 0.91 10*3/uL 0.36-1.02 = 742-7) EOS x10^3 (test code = 0.25 10*3/uL 0.06-0.53 711-2) BASO x10^3 (test code 0.08 10*3/uL 0.01-0.09 = 704-7) Lab Interpretation Abnormal (test code = 97388-5) [facility] WITH [id number] 10:04:20 Test Item Value Reference Range Interpretation [...] RDW-SD (test code = 47.7 fL 38.5-51.6 54943-4) RDW-CV (test code = 15.1 % 12.1-15.4 788-0) PLT (test code = See_Comment [Automated 777-3) message] The sy stem which generated this result transmitted reference range : 150 - 328 10*3/ ?L. The reference r adama was not used to interpret this result as normal/abnormal . MPV (test code = 12.0 fL 9.8-13.0 47849-6) NRBC/100 WBC (test See_Comment [Automat ed code = 0560209748) message] The system which generated this result transmitted reference range : 0.0 - 10.0 /100 WBCs. The refer ence range was not u sed to interpret th is result as normal/abnormal . NRBC x10^3 (test code See_Comment [Auto mated = 4727562594) message] The s ystem which generated this result transmitted reference range : 10*3/?L. The reference range was not used to interpret this result as normal/abnormal . GRAN MAT (NEUT) % 70.6 % (test code = 770-8) IMM GRAN % (test code 0.50 % = 8035766475) LYMPH % (test code = 13.5 % 736-9) MONO % (test code = 11.3 % 5905-5) EOS % (test code = 3.1 % 713-8) BASO % (test code = 1.0 % 706-2) GRAN MAT x10^3(ANC) 5.71 10*3/uL 1.99-6.95 (test code = 1360243664) IMM GRAN x10^3 (test 0.04 10*3/uL 0.00-0.06 code = 1909429333) LYMPH x10^3 (test code 1.09 10*3/uL 1.09-3.23 = 731-0) MONO x10^3 (test code 0.91 10*3/uL 0.36-1.02 = 742-7) EOS x10^3 (test code = 0.25 10*3/uL 0.06-0.53 711-2) BASO x10^3 (test code 0.08 10*3/uL 0.01-0.09 = 704-7) Lab Interpretation Abnormal (test code = 55670-7) [facility] GLUCOSE (AUTOMATED)2022-04-10 01:36:00 Test Item Value Reference Range Interpretation Comments POCT GLU (test code = 2128613886) 136 mg/dL 70-110 H Lab Interpretation (test code = Abnormal 97270-7) [facility] GLUCOSE (AUTOMATED)2022-04-10 01:36:00 Test Item Value Reference Range Interpretation Comments POCT GLU (test code = 4568536214) 136 mg/dL 70-110 H Lab Interpretation (test code = Abnormal 33972-3) [facility] GLUCOSE (AUTOMATED)2022-04-10 01:36:00 Test Item Value Reference Range Interpretation Comments POCT GLU (test code = 3718343365) 136 mg/dL 70-110 H Lab Interpretation (test code = Abnormal 66649-0) [facility] GLUCOSE (AUTOMATED)2022-04-09 21:26:15 Test Item Value Reference Range Interpretation Comments POCT GLU (test code = 169 mg/dL 70-110 H Notifi ed Provider [id number]) Lab Interpretation (test Abnormal code = 25389-1) [facility] GLUCOSE (AUTOMATED)2022-04-09 21:26:15 Test Item Value Reference Range Interpretation Comments POCT GLU (test code = 169 mg/dL 70-110 H Notifi ed Provider [id number]) Lab Interpretation (test Abnormal code = 61503-1) [facility] GLUCOSE (AUTOMATED)2022-04-09 21:26:15 Test Item Value Reference Range Interpretation Comments POCT GLU (test code = 169 mg/dL 70-110 H Notifi ed Provider [id number]) Lab Interpretation (test Abnormal code = 87787-7) [facility] GLUCOSE (AUTOMATED)2022-04-09 21:26:15 Test Item Value Reference Range Interpretation Comments POCT GLU (test code = 169 mg/dL 70-110 H Notifi ed Provider [id number]) Lab Interpretation (test Abnormal code = 26740-3) [facility] GLUCOSE (AUTOMATED)2022-04-09 16:47:32 Test Item Value Reference Range Interpretation Comments POCT GLU (test code = 93 mg/dL 70-110 Notifi ed Provider [id number]) Lab Interpretation (test Normal code = 91994-9) [facility] GLUCOSE (AUTOMATED)2022-04-09 16:47:32 Test Item Value Reference Range Interpretation Comments POCT GLU (test code = 93 mg/dL 70-110 Notifi ed Provider [id number]) Lab Interpretation (test Normal code = 59777-7) [facility] GLUCOSE (AUTOMATED)2022-04-09 16:47:32 Test Item Value Reference Range Interpretation Comments POCT GLU (test code = 93 mg/dL 70-110 Notifi ed Provider [id number]) Lab Interpretation (test Normal code = 27366-0) [facility] GLUCOSE (AUTOMATED)2022-04-09 16:47:32 Test Item Value Reference Range Interpretation Comments POCT GLU (test code = 93 mg/dL 70-110 Notifi ed Provider [id number]) Lab Interpretation (test Normal code = 34777-8) [facility] [id number] 16:43:57 Test Item Value Reference Range Interpretation Comments ABO & RH (test code O POSITIVE Performe d at [facility] = 20) Laboratory Serv [facility] Blood Bank3 [address] [facility] s [id number] Free: [phone] A No. [id number] IAT (test code = Negative Performed a t [facility] 1185) Laboratory Serv [facility] Blood Bank[address] [place] [address] s [id number] Free: [phone] A No. [id number] [facility] and Screen - ONCE [id number] 16:43:57 Test Item Value Reference Range Interpretation Comments ABO & RH (test code O POSITIVE Performe d at [facility] = 20) Laboratory [facility] Blood Bank[address] [place] [address] s [address]Pula Free: [phone] A No. [id number] IAT (test code = Negative Performed a t [facility] 1185) Laboratory [facility] Blood [address] s [address]Qloq Free: [phone] A No. [id number] [facility] and Screen - ONCE [id number] 16:43:57 Test Item Value Reference Range Interpretation Comments ABO & RH (test code O POSITIVE Performe d at [facility] = 20) Laboratory [facility] Blood [facility] [address] [place] [address] s [address]Zzgg Free: [phone] A No. [id number] IAT (test code = Negative Performed a t [facility] 1185) Laboratory [facility] Blood [address] s [address]Oqmg Free: [phone] A No. [id number] [facility] and Screen - ONCE [id number] 16:43:57 Test Item Value Reference Range Interpretation Comments ABO & RH (test code O POSITIVE Performe d at [facility] = 20) Laboratory [facility] Blood Bank[address] [place] [address] s [address]Atgg Free: [phone] A No. [id number] IAT (test code = Negative Performed a t [facility] 1185) Laboratory [facility] Blood [address] [place] [address] s [address]Uapm Free: [phone] A No. [id number] [facility]-09 13:06:59 Test Item Value Reference Range Interpretation Comments POCT GLU (test code = 105 mg/dL 70-110 Notifi ed Provider [id number]) Lab Interpretation (test Normal code = 35005-4) [facility] GLUCOSE (AUTOMATED)2022-04-09 13:06:59 Test Item Value Reference Range Interpretation Comments POCT GLU (test code = 105 mg/dL 70-110 Notifi ed Provider [id number]) Lab Interpretation (test Normal code = 45242-9) [facility] GLUCOSE (AUTOMATED)2022-04-09 13:06:59 Test Item Value Reference Range Interpretation Comments POCT GLU (test code = 105 mg/dL 70-110 Notifi ed Provider [id number]) Lab Interpretation (test Normal code = 72436-7) [facility] GLUCOSE (AUTOMATED)2022-04-09 13:06:59 Test Item Value Reference Range Interpretation Comments POCT GLU (test code = 105 mg/dL 70-110 Notifi ed Provider [id number]) Lab Interpretation (test Normal code = 69318-4) [facility] METABOLIC PANEL (NA, K, CL, CO2, GLUCOSE, BUN, CREATININE, CA)2022-04-09 11:11:37 Test Item Value Reference Range Interpretation Comments NA (test code = 138 mmol/L 135-145 3250937434) K (test code = 4.6 mmol/L 3.5-5 5365018613) CL (test code = 103 mmol/L 98-108 3697780950) CO2 TOTAL (test code = 25 mmol/L 23-31 2766815267) AGAP (test code = 2-16 7556012297) BUN (test code = 22 mg/dL 7-23 2898923375) GLUCOSE (test code = 99 mg/dL 70-110 8523672107) CREATININE (test code = 5.04 mg/dL 0.6-1.25 H 8472722319) CALCIUM (test code = 9.5 mg/dL 8.6-10.6 6242077757) eGFR (test code = mL/min/1.73m2 4512059852) MARINO (test code = MARINO) Association of [...] tests). Lab Interpretation Abnormal (test code = 68006-6) [facility] METABOLIC PANEL (NA, K, CL, CO2, GLUCOSE, BUN, CREATININE, CA)2022-04-09 11:11:37 Test Item Value Reference Range Interpretation Comments NA (test code = 138 mmol/L 135-145 3270380967) K (test code = 4.6 mmol/L 3.5-5.0 5950834214) CL (test code = 103 mmol/L 98-108 3290666207) CO2 TOTAL (test code = 25 mmol/L 23-31 3381051358) AGAP (test code = 2-16 2529798270) BUN (test code = 22 mg/dL 7-23 5949699654) GLUCOSE (test code = 99 mg/dL 70-110 0800883144) CREATININE (test code = 5.04 mg/dL 0.60-1.25 H 1147659394) CALCIUM (test code = 9.5 mg/dL 8.6-10.6 5529933719) eGFR (test code = mL/min/1.73m2 1890081205) MARINO (test code = MARINO) Association of [...] tests). Lab Interpretation Abnormal (test code = 93817-6) [facility] METABOLIC PANEL (NA, K, CL, CO2, GLUCOSE, BUN, CREATININE, CA)2022-04-09 11:11:37 Test Item Value Reference Range Interpretation Comments NA (test code = 138 mmol/L 135-145 7257016404) K (test code = 4.6 mmol/L 3.5-5.0 0459041390) CL (test code = 103 mmol/L 98-108 4686247633) CO2 TOTAL (test code = 25 mmol/L 23-31 6578921374) AGAP (test code = 2-16 0774474616) BUN (test code = 22 mg/dL 7-23 6320264379) GLUCOSE (test code = 99 mg/dL 70-110 8781589677) CREATININE (test code = 5.04 mg/dL 0.60-1.25 H 3471720253) CALCIUM (test code = 9.5 mg/dL 8.6-10.6 3575378127) eGFR (test code = mL/min/1.73m2 8818510338) MARINO (test code = MARINO) Association of [...] tests). Lab Interpretation Abnormal (test code = 34466-6) [facility] METABOLIC PANEL (NA, K, CL, CO2, GLUCOSE, BUN, CREATININE, CA)2022-04-09 11:11:37 Test Item Value Reference Range Interpretation Comments NA (test code = 138 mmol/L 135-145 7161973910) K (test code = 4.6 mmol/L 3.5-5.0 5176074256) CL (test code = 103 mmol/L 98-108 9582564749) CO2 TOTAL (test code = 25 mmol/L 23-31 4976839925) AGAP (test code = 2-16 4265929119) BUN (test code = 22 mg/dL 7-23 2062521693) GLUCOSE (test code = 99 mg/dL 70-110 5410474094) CREATININE (test code = 5.04 mg/dL 0.60-1.25 H 8028503416) CALCIUM (test code = 9.5 mg/dL 8.6-10.6 2769937129) eGFR (test code = mL/min/1.73m2 5950123950) MARINO (test code = MARINO) Association of [...] tests). Lab Interpretation Abnormal (test code = 76526-2) [facility] WITH [id number] 10:18:31 Test Item Value Reference Range Interpretation [...] RDW-SD (test code = 47.3 fL 38.5-51.6 85019-5) RDW-CV (test code = 14.6 % 12.1-15.4 788-0) PLT (test code = See_Comment H [Automated 777-3) message] The sy stem which generated this result transmitted reference range : 150 - 328 10*3/ ?L. The reference r adama was not used to interpret this result as normal/abnormal . MPV (test code = 11.1 fL 9.8-13 53063-3) NRBC/100 WBC (test See_Comment [Automat ed code = 5188825527) message] The system which generated this result transmitted reference range : 0.0 - 10.0 /100 WBCs. The refer ence range was not u sed to interpret th is result as normal/abnormal . NRBC x10^3 (test code See_Comment [Auto mated = 6438460331) message] The s ystem which generated this result transmitted reference range : 10*3/?L. The reference range was not used to interpret this result as normal/abnormal . GRAN MAT (NEUT) % 72.8 % (test code = 770-8) IMM GRAN % (test code 0.90 % = 9141275000) LYMPH % (test code = 12.4 % 736-9) MONO % (test code = 10.0 % 5905-5) EOS % (test code = 3.2 % 713-8) BASO % (test code = 0.7 % 706-2) GRAN MAT x10^3(ANC) 5.93 10*3/uL 1.99-6.95 (test code = 4686222857) IMM GRAN x10^3 (test 0.07 10*3/uL 0-0.06 H code = 8461300118) LYMPH x10^3 (test code 1.01 10*3/uL 1.09-3.23 L = 731-0) MONO x10^3 (test code 0.81 10*3/uL 0.36-1.02 = 742-7) EOS x10^3 (test code = 0.26 10*3/uL 0.06-0.53 711-2) BASO x10^3 (test code 0.06 10*3/uL 0.01-0.09 = 704-7) Lab Interpretation Abnormal (test code = 74022-6) [facility] WITH [id number] 10:18:31 Test Item Value Reference Range Interpretation Comments WBC (test code = See_Comment [Automated 3990-2) message] The sy stem which generated this result transmitted reference range : 4.20 - 10.70 10*3/?L. The reference range was not used to interpret this result as normal/abnormal . RBC (test code = See_Comment [Automated 119-8) message] The sy stem which generated this [...] RDW-SD (test code = 47.3 fL 38.5-51.6 11167-0) RDW-CV (test code = 14.6 % 12.1-15.4 788-0) PLT (test code = See_Comment H [Automated 777-3) message] The sy stem which generated this result transmitted reference range : 150 - 328 10*3/ ?L. The reference r adama was not used to interpret this result as normal/abnormal . MPV (test code = 11.1 fL 9.8-13.0 09993-7) NRBC/100 WBC (test See_Comment [Automat ed code = 9523529687) message] The system which generated this result transmitted reference range : 0.0 - 10.0 /100 WBCs. The refer ence range was not u sed to interpret th is result as normal/abnormal . NRBC x10^3 (test code See_Comment [Auto mated = 1737434594) message] The s ystem which generated this result transmitted reference range : 10*3/?L. The reference range was not used to interpret this result as normal/abnormal . GRAN MAT (NEUT) % 72.8 % (test code = 770-8) IMM GRAN % (test code 0.90 % = 9168857616) LYMPH % (test code = 12.4 % 736-9) MONO % (test code = 10.0 % 5905-5) EOS % (test code = 3.2 % 713-8) BASO % (test code = 0.7 % 706-2) GRAN MAT x10^3(ANC) 5.93 10*3/uL 1.99-6.95 (test code = 6254466469) IMM GRAN x10^3 (test 0.07 10*3/uL 0.00-0.06 H code = 6527807675) LYMPH x10^3 (test code 1.01 10*3/uL 1.09-3.23 L = 731-0) MONO x10^3 (test code 0.81 10*3/uL 0.36-1.02 = 742-7) EOS x10^3 (test code = 0.26 10*3/uL 0.06-0.53 711-2) BASO x10^3 (test code 0.06 10*3/uL 0.01-0.09 = 704-7) Lab Interpretation Abnormal (test code = 25908-0) [facility] WITH [id number] 10:18:31 Test Item Value Reference Range Interpretation [...] RDW-SD (test code = 47.3 fL 38.5-51.6 09911-8) RDW-CV (test code = 14.6 % 12.1-15.4 788-0) PLT (test code = See_Comment H [Automated 777-3) message] The sy stem which generated this result transmitted reference range : 150 - 328 10*3/ ?L. The reference r adama was not used to interpret this result as normal/abnormal . MPV (test code = 11.1 fL 9.8-13.0 82842-3) NRBC/100 WBC (test See_Comment [Automat ed code = 3436865560) message] The system which generated this result transmitted reference range : 0.0 - 10.0 /100 WBCs. The refer ence range was not u sed to interpret th is result as normal/abnormal . NRBC x10^3 (test code See_Comment [Auto mated = 7437466231) message] The s ystem which generated this result transmitted reference range : 10*3/?L. The reference range was not used to interpret this result as normal/abnormal . GRAN MAT (NEUT) % 72.8 % (test code = 770-8) IMM GRAN % (test code 0.90 % = 4337415054) LYMPH % (test code = 12.4 % 736-9) MONO % (test code = 10.0 % 5905-5) EOS % (test code = 3.2 % 713-8) BASO % (test code = 0.7 % 706-2) GRAN MAT x10^3(ANC) 5.93 10*3/uL 1.99-6.95 (test code = 7282629668) IMM GRAN x10^3 (test 0.07 10*3/uL 0.00-0.06 H code = 2397871185) LYMPH x10^3 (test code 1.01 10*3/uL 1.09-3.23 L = 731-0) MONO x10^3 (test code 0.81 10*3/uL 0.36-1.02 = 742-7) EOS x10^3 (test code = 0.26 10*3/uL 0.06-0.53 711-2) BASO x10^3 (test code 0.06 10*3/uL 0.01-0.09 = 704-7) Lab Interpretation Abnormal (test code = 51389-2) [facility] WITH [id number] 10:18:31 Test Item Value Reference Range Interpretation Comments WBC (test code = See_Comment [Automated 8561-2) message] The sy stem which generated this result transmitted reference range : 4.20 - 10.70 10*3/?L. The reference range was not used to interpret this result as normal/abnormal . RBC (test code = See_Comment [Automated 915-8) message] The sy stem which generated this [...] RDW-SD (test code = 47.3 fL 38.5-51.6 12518-3) RDW-CV (test code = 14.6 % 12.1-15.4 788-0) PLT (test code = See_Comment H [Automated 777-3) message] The sy stem which generated this result transmitted reference range : 150 - 328 10*3/ ?L. The reference r adama was not used to interpret this result as normal/abnormal . MPV (test code = 11.1 fL 9.8-13.0 87440-1) NRBC/100 WBC (test See_Comment [Automat ed code = 5155227019) message] The system which generated this result transmitted reference range : 0.0 - 10.0 /100 WBCs. The refer ence range was not u sed to interpret th is result as normal/abnormal . NRBC x10^3 (test code See_Comment [Auto mated = 2663171978) message] The s ystem which generated this result transmitted reference range : 10*3/?L. The reference range was not used to interpret this result as normal/abnormal . GRAN MAT (NEUT) % 72.8 % (test code = 770-8) IMM GRAN % (test code 0.90 % = 8002149662) LYMPH % (test code = 12.4 % 736-9) MONO % (test code = 10.0 % 5905-5) EOS % (test code = 3.2 % 713-8) BASO % (test code = 0.7 % 706-2) GRAN MAT x10^3(ANC) 5.93 10*3/uL 1.99-6.95 (test code = 8356939514) IMM GRAN x10^3 (test 0.07 10*3/uL 0.00-0.06 H code = 9687073844) LYMPH x10^3 (test code 1.01 10*3/uL 1.09-3.23 L = 731-0) MONO x10^3 (test code 0.81 10*3/uL 0.36-1.02 = 742-7) EOS x10^3 (test code = 0.26 10*3/uL 0.06-0.53 711-2) BASO x10^3 (test code 0.06 10*3/uL 0.01-0.09 = 704-7) Lab Interpretation Abnormal (test code = 70391-5) [facility] GLUCOSE (AUTOMATED)2022-04-09 01:30:53 Test Item Value Reference Range Interpretation Comments POCT GLU (test code = 6611198701) 98 mg/dL 70-110 Lab Interpretation (test code = Normal 35084-5) [facility] GLUCOSE (AUTOMATED)2022-04-09 01:30:53 Test Item Value Reference Range Interpretation Comments POCT GLU (test code = 7433858654) 98 mg/dL 70-110 Lab Interpretation (test code = Normal 30588-3) [facility] GLUCOSE (AUTOMATED)2022-04-09 01:30:53 Test Item Value Reference Range Interpretation Comments POCT GLU (test code = 7230625640) 98 mg/dL 70-110 Lab Interpretation (test code = Normal 24181-0) [facility] GLUCOSE (AUTOMATED)2022-04-09 01:30:53 Test Item Value Reference Range Interpretation Comments POCT GLU (test code = 0030259689) 98 mg/dL 70-110 Lab Interpretation (test code = Normal 36311-9) [facility] GLUCOSE (AUTOMATED)2022-04-08 23:48:54 Test Item Value Reference Range Interpretation Comments POCT GLU (test code = 4321960736) 94 mg/dL 70-110 Lab Interpretation (test code = Normal 06966-7) [facility] GLUCOSE (AUTOMATED)2022-04-08 23:48:54 Test Item Value Reference Range Interpretation Comments POCT GLU (test code = 3254655676) 94 mg/dL 70-110 Lab Interpretation (test code = Normal 43259-5) [facility] GLUCOSE (AUTOMATED)2022-04-08 23:48:54 Test Item Value Reference Range Interpretation Comments POCT GLU (test code = 7373079718) 94 mg/dL 70-110 Lab Interpretation (test code = Normal 09327-0) [facility] 23:48:54 Test Item Value Reference Range Interpretation Comments POCT GLU (test code = 1642971481) 94 mg/dL 70-110 Lab Interpretation (test code = Normal 82503-3) [facility] 17:25:23 Test Item Value Reference Range Interpretation Comments POCT GLU (test code = 2460119955) 104 mg/dL 70-110 Lab Interpretation (test code = Normal 99048-9) [facility]08 17:25:23 Test Item Value Reference Range Interpretation Comments POCT GLU (test code = 9320025146) 104 mg/dL 70-110 Lab Interpretation (test code = Normal 36328-2) [facility] GLUCOSE (AUTOMATED)2022-04-08 17:25:23 Test Item Value Reference Range Interpretation Comments POCT GLU (test code = 3360975387) 104 mg/dL 70-110 Lab Interpretation (test code = Normal 30914-2) [facility]08 17:25:23 Test Item Value Reference Range Interpretation Comments POCT GLU (test code = 0993977098) 104 mg/dL 70-110 Lab Interpretation (test code = Normal 84466-0) [facility]2022-[facility]-08 12:51:02 Test Item Value Reference Range Interpretation Comments POCT GLU (test code = 5996952945) 149 mg/dL 70-110 H Lab Interpretation (test code = Abnormal 97968-1) [facility]08 12:51:02 Test Item Value Reference Range Interpretation Comments POCT GLU (test code = 5479265489) 149 mg/dL 70-110 H Lab Interpretation (test code = Abnormal 06231-8) [facility]2022-[facility]-08 12:51:02 Test Item Value Reference Range Interpretation Comments POCT GLU (test code = 9835036572) 149 mg/dL 70-110 H Lab Interpretation (test code = Abnormal 69014-4[facility] 12:51:02 Test Item Value Reference Range Interpretation Comments POCT GLU (test code = 6308013025) 149 mg/dL 70-110 H Lab Interpretation (test code = Abnormal 85395-9) [facility] GLUCOSE (AUTOMATED)2022-04-08 01:30:21 Test Item Value Reference Range Interpretation Comments POCT GLU (test code = 3806836226) 129 mg/dL 70-110 H Lab Interpretation (test code = Abnormal 21498-9) [facility] GLUCOSE (AUTOMATED)2022-04-08 01:30:21 Test Item Value Reference Range Interpretation Comments POCT GLU (test code = 5302325209) 129 mg/dL 70-110 H Lab Interpretation (test code = Abnormal 42556-9) [facility] GLUCOSE (AUTOMATED)2022-04-08 01:30:21 Test Item Value Reference Range Interpretation Comments POCT GLU (test code = 0233389583) 129 mg/dL 70-110 H Lab Interpretation (test code = Abnormal 85793-2) [facility] GLUCOSE (AUTOMATED)2022-04-08 01:30:21 Test Item Value Reference Range Interpretation Comments POCT GLU (test code = 6551895810) 129 mg/dL 70-110 H Lab Interpretation (test code = Abnormal 74437-1) [facility] GLUCOSE (AUTOMATED)2022-04-07 20:42:13 Test Item Value Reference Range Interpretation Comments POCT GLU (test code = 83 mg/dL 70-110 Notifi ed Provider [id number]) Lab Interpretation (test Normal code = 30353-9) [facility] GLUCOSE (AUTOMATED)2022-04-07 20:42:13 Test Item Value Reference Range Interpretation Comments POCT GLU (test code = 83 mg/dL 70-110 Notifi ed Provider [id number]) Lab Interpretation (test Normal code = 51818-1) [facility] GLUCOSE (AUTOMATED)2022-04-07 20:42:13 Test Item Value Reference Range Interpretation Comments POCT GLU (test code = 83 mg/dL 70-110 Notifi ed Provider [id number]) Lab Interpretation (test Normal code = 51453-7) [facility] GLUCOSE (AUTOMATED)2022-04-07 20:42:13 Test Item Value Reference Range Interpretation Comments POCT GLU (test code = 83 mg/dL 70-110 Notifi ed Provider [id number]) Lab Interpretation (test Normal code = 85837-0) [facility] GLUCOSE (AUTOMATED)2022-04-07 16:28:03 Test Item Value Reference Range Interpretation Comments POCT GLU (test code = 104 mg/dL 70-110 Notifi ed Provider [id number]) Lab Interpretation (test Normal code = 63621-4) [facility] GLUCOSE (AUTOMATED)2022-04-07 16:28:03 Test Item Value Reference Range Interpretation Comments POCT GLU (test code = 104 mg/dL 70-110 Notifi ed Provider [id number]) Lab Interpretation (test Normal code = 94016-9) [facility] GLUCOSE (AUTOMATED)2022-04-07 16:28:03 Test Item Value Reference Range Interpretation Comments POCT GLU (test code = 104 mg/dL 70-110 Notifi ed Provider [id number]) Lab Interpretation (test Normal code = 53372-3) [facility] GLUCOSE (AUTOMATED)2022-04-07 16:28:03 Test Item Value Reference Range Interpretation Comments POCT GLU (test code = 104 mg/dL 70-110 Notifi ed Provider [id number]) Lab Interpretation (test Normal code = 11359-2) [facility] GLUCOSE (AUTOMATED)2022-04-07 02:18:10 Test Item Value Reference Range Interpretation Comments POCT GLU (test code = 2753908394) 159 mg/dL 70-110 H Lab Interpretation (test code = Abnormal 21982-1) [facility] GLUCOSE (AUTOMATED)2022-04-07 02:18:10 Test Item Value Reference Range Interpretation Comments POCT GLU (test code = 0416044327) 159 mg/dL 70-110 H Lab Interpretation (test code = Abnormal 32543-3) [facility] GLUCOSE (AUTOMATED)2022-04-07 02:18:10 Test Item Value Reference Range Interpretation Comments POCT GLU (test code = 1880514448) 159 mg/dL 70-110 H Lab Interpretation (test code = Abnormal 24920-1) [facility] GLUCOSE (AUTOMATED)2022-04-07 02:18:10 Test Item Value Reference Range Interpretation Comments POCT GLU (test code = 7958064129) 159 mg/dL 70-110 H Lab Interpretation (test code = Abnormal 26147-8) [facility] 22:04:37 Test Item Value Reference Range Interpretation Comments POCT GLU (test code = 1903103807) 160 mg/dL 70-110 H Lab Interpretation (test code = Abnormal 20153-2) [facility]2022-[facility]-06 22:04:37 Test Item Value Reference Range Interpretation Comments POCT GLU (test code = 3704283829) 160 mg/dL 70-110 H Lab Interpretation (test code = Abnormal 24859-8) [facility] GLUCOSE (AUTOMATED)2022-04-06 22:04:37 Test Item Value Reference Range Interpretation Comments POCT GLU (test code = 6953724252) 160 mg/dL 70-110 H Lab Interpretation (test code = Abnormal 19691-7) [facility] GLUCOSE (AUTOMATED)2022-04-06 22:04:37 Test Item Value Reference Range Interpretation Comments POCT GLU (test code = 3733648460) 160 mg/dL 70-110 H Lab Interpretation (test code = Abnormal 64109-8) [facility] GLUCOSE (AUTOMATED)2022-04-06 16:39:08 Test Item Value Reference Range Interpretation Comments POCT GLU (test code = 5409560973) 69 mg/dL 70-110 L Lab Interpretation (test code = Abnormal 37711-8) [facility] GLUCOSE (AUTOMATED)2022-04-06 16:39:08 Test Item Value Reference Range Interpretation Comments POCT GLU (test code = 0006378207) 69 mg/dL 70-110 L Lab Interpretation (test code = Abnormal 49100-8) [facility] 16:39:08 Test Item Value Reference Range Interpretation Comments POCT GLU (test code = 5011441578) 69 mg/dL 70-110 L Lab Interpretation (test code = Abnormal 79770-5) [facility] GLUCOSE (AUTOMATED)2022-04-06 16:39:08 Test Item Value Reference Range Interpretation Comments POCT GLU (test code = 9704930126) 69 mg/dL 70-110 L Lab Interpretation (test code = Abnormal 84905-2) [facility] GLUCOSE (AUTOMATED)2022-04-06 13:18:58 Test Item Value Reference Range Interpretation Comments POCT GLU (test code = 8781187657) 76 mg/dL 70-110 Lab Interpretation (test code = Normal 09085-1) [facility] GLUCOSE (AUTOMATED)2022-04-06 13:18:58 Test Item Value Reference Range Interpretation Comments POCT GLU (test code = 1417784669) 76 mg/dL 70-110 Lab Interpretation (test code = Normal 02101-1) [facility] GLUCOSE (AUTOMATED)2022-04-06 13:18:58 Test Item Value Reference Range Interpretation Comments POCT GLU (test code = 1699610009) 76 mg/dL 70-110 Lab Interpretation (test code = Normal 18730-5) [facility] GLUCOSE (AUTOMATED)2022-04-06 13:18:58 Test Item Value Reference Range Interpretation Comments POCT GLU (test code = 6752391707) 76 mg/dL 70-110 Lab Interpretation (test code = Normal 65233-0) [facility] METABOLIC PANEL (NA, K, CL, CO2, GLUCOSE, BUN, CREATININE, CA)2022-04-06 10:42:52 Test Item Value Reference Range Interpretation Comments NA (test code = 134 mmol/L 135-145 L 7914196356) K (test code = 4.3 mmol/L 3.5-5 7209355635) CL (test code = 98 mmol/L 98-108 3758402429) CO2 TOTAL (test code = 26 mmol/L 23-31 2397159737) AGAP (test code = 2-16 7863969438) BUN (test code = 30 mg/dL 7-23 H 5251303360) GLUCOSE (test code = 94 mg/dL 70-110 6899545393) CREATININE (test code = 6.02 mg/dL 0.6-1.25 H 8390992407) CALCIUM (test code = 9.0 mg/dL 8.6-10.6 8985347460) eGFR (test code = mL/min/1.73m2 5908507079) MARINO (test code = MARINO) Association of [...] tests). Lab Interpretation Abnormal (test code = 75758-7) [facility] METABOLIC PANEL (NA, K, CL, CO2, GLUCOSE, BUN, CREATININE, CA)2022-04-06 10:42:52 Test Item Value Reference Range Interpretation Comments NA (test code = 134 mmol/L 135-145 L 7322999595) K (test code = 4.3 mmol/L 3.5-5.0 1205012961) CL (test code = 98 mmol/L 98-108 7341640913) CO2 TOTAL (test code = 26 mmol/L 23-31 0769172060) AGAP (test code = 2-16 4614429582) BUN (test code = 30 mg/dL 7-23 H 4361831052) GLUCOSE (test code = 94 mg/dL 70-110 7679882770) CREATININE (test code = 6.02 mg/dL 0.60-1.25 H 6694077714) CALCIUM (test code = 9.0 mg/dL 8.6-10.6 7095087874) eGFR (test code = mL/min/1.73m2 6228485155) MARINO (test code = MARINO) Association of [...] tests). Lab Interpretation Abnormal (test code = 00595-5) [facility] (NA, K, CL, CO2, GLUCOSE, BUN, CREATININE, CA)2022-04-06 10:42:52 Test Item Value Reference Range Interpretation Comments NA (test code = 134 mmol/L 135-145 L 9601288130) K (test code = 4.3 mmol/L 3.5-5.0 6289085845) CL (test code = 98 mmol/L 98-108 0370188404) CO2 TOTAL (test code = 26 mmol/L 23-31 1170653643) AGAP (test code = 2-16 3988058565) BUN (test code = 30 mg/dL 7-23 H 9314043780) GLUCOSE (test code = 94 mg/dL 70-110 0060251542) CREATININE (test code = 6.02 mg/dL 0.60-1.25 H 9703849307) CALCIUM (test code = 9.0 mg/dL 8.6-10.6 4108017371) eGFR (test code = mL/min/1.73m2 8155513729) MARINO (test code = MARINO) Association of [...] tests). Lab Interpretation Abnormal (test code = 32262-9) [facility] METABOLIC PANEL (NA, K, CL, CO2, GLUCOSE, BUN, CREATININE, CA)2022-04-06 10:42:52 Test Item Value Reference Range Interpretation Comments NA (test code = 134 mmol/L 135-145 L 9644416501) K (test code = 4.3 mmol/L 3.5-5.0 0587684210) CL (test code = 98 mmol/L 98-108 4321639097) CO2 TOTAL (test code = 26 mmol/L 23-31 3473927690) AGAP (test code = 2-16 6812101052) BUN (test code = 30 mg/dL 7-23 H 6789630826) GLUCOSE (test code = 94 mg/dL 70-110 8394213928) CREATININE (test code = 6.02 mg/dL 0.60-1.25 H 9214094241) CALCIUM (test code = 9.0 mg/dL 8.6-10.6 7646731861) eGFR (test code = mL/min/1.73m2 2599973272) MARINO (test code = MARINO) Association of [...] tests). Lab Interpretation Abnormal (test code = 57568-1) [facility] WITH [id number] 09:47:29 Test Item Value Reference Range Interpretation [...] RDW-SD (test code = 47.4 fL 38.5-51.6 15589-2) RDW-CV (test code = 14.7 % 12.1-15.4 788-0) PLT (test code = See_Comment H [Automated 777-3) message] The sy stem which generated this result transmitted reference range : 150 - 328 10*3/ ?L. The reference r adama was not used to interpret this result as normal/abnormal . MPV (test code = 11.7 fL 9.8-13 88515-2) NRBC/100 WBC (test See_Comment [Automat ed code = 6114148169) message] The system which generated this result transmitted reference range : 0.0 - 10.0 /100 WBCs. The refer ence range was not u sed to interpret th is result as normal/abnormal . NRBC x10^3 (test code See_Comment [Auto mated = 4884809286) message] The s ystem which generated this result transmitted reference range : 10*3/?L. The reference range was not used to interpret this result as normal/abnormal . GRAN MAT (NEUT) % 73.3 % (test code = 770-8) IMM GRAN % (test code 0.70 % = 5835633801) LYMPH % (test code = 13.3 % 736-9) MONO % (test code = 8.6 % 5905-5) EOS % (test code = 3.4 % 713-8) BASO % (test code = 0.7 % 706-2) GRAN MAT x10^3(ANC) 7.15 10*3/uL 1.99-6.95 H (test code = 8029884781) IMM GRAN x10^3 (test 0.07 10*3/uL 0-0.06 H code = 7048309437) LYMPH x10^3 (test code 1.30 10*3/uL 1.09-3.23 = 731-0) MONO x10^3 (test code 0.84 10*3/uL 0.36-1.02 = 742-7) EOS x10^3 (test code = 0.33 10*3/uL 0.06-0.53 711-2) BASO x10^3 (test code 0.07 10*3/uL 0.01-0.09 = 704-7) Lab Interpretation Abnormal (test code = 97194-3) [facility] WITH [id number] 09:47:29 Test Item Value Reference Range Interpretation Comments WBC (test code = See_Comment [Automated 7090-2) message] The sy stem which generated this result transmitted reference range : 4.20 - 10.70 10*3/?L. The reference range was not used to interpret this result as normal/abnormal . RBC (test code = See_Comment [Automated 009-8) message] The sy stem which generated this [...] RDW-SD (test code = 47.4 fL 38.5-51.6 59747-1) RDW-CV (test code = 14.7 % 12.1-15.4 788-0) PLT (test code = See_Comment H [Automated 777-3) message] The sy stem which generated this result transmitted reference range : 150 - 328 10*3/ ?L. The reference r adama was not used to interpret this result as normal/abnormal . MPV (test code = 11.7 fL 9.8-13.0 19934-5) NRBC/100 WBC (test See_Comment [Automat ed code = 5791768857) message] The system which generated this result transmitted reference range : 0.0 - 10.0 /100 WBCs. The refer ence range was not u sed to interpret th is result as normal/abnormal . NRBC x10^3 (test code See_Comment [Auto mated = 5030841154) message] The s ystem which generated this result transmitted reference range : 10*3/?L. The reference range was not used to interpret this result as normal/abnormal . GRAN MAT (NEUT) % 73.3 % (test code = 770-8) IMM GRAN % (test code 0.70 % = 3861685312) LYMPH % (test code = 13.3 % 736-9) MONO % (test code = 8.6 % 5905-5) EOS % (test code = 3.4 % 713-8) BASO % (test code = 0.7 % 706-2) GRAN MAT x10^3(ANC) 7.15 10*3/uL 1.99-6.95 H (test code = 0612016984) IMM GRAN x10^3 (test 0.07 10*3/uL 0.00-0.06 H code = 6247054432) LYMPH x10^3 (test code 1.30 10*3/uL 1.09-3.23 = 731-0) MONO x10^3 (test code 0.84 10*3/uL 0.36-1.02 = 742-7) EOS x10^3 (test code = 0.33 10*3/uL 0.06-0.53 711-2) BASO x10^3 (test code 0.07 10*3/uL 0.01-0.09 = 704-7) Lab Interpretation Abnormal (test code = 81953-0) [facility] WITH [id number] 09:47:29 Test Item Value Reference Range Interpretation [...] RDW-SD (test code = 47.4 fL 38.5-51.6 07309-4) RDW-CV (test code = 14.7 % 12.1-15.4 788-0) PLT (test code = See_Comment H [Automated 777-3) message] The sy stem which generated this result transmitted reference range : 150 - 328 10*3/ ?L. The reference r adama was not used to interpret this result as normal/abnormal . MPV (test code = 11.7 fL 9.8-13.0 77819-7) NRBC/100 WBC (test See_Comment [Automat ed code = 1530615196) message] The system which generated this result transmitted reference range : 0.0 - 10.0 /100 WBCs. The refer ence range was not u sed to interpret th is result as normal/abnormal . NRBC x10^3 (test code See_Comment [Auto mated = 3472215866) message] The s ystem which generated this result transmitted reference range : 10*3/?L. The reference range was not used to interpret this result as normal/abnormal . GRAN MAT (NEUT) % 73.3 % (test code = 770-8) IMM GRAN % (test code 0.70 % = 9657501575) LYMPH % (test code = 13.3 % 736-9) MONO % (test code = 8.6 % 5905-5) EOS % (test code = 3.4 % 713-8) BASO % (test code = 0.7 % 706-2) GRAN MAT x10^3(ANC) 7.15 10*3/uL 1.99-6.95 H (test code = 0912386903) IMM GRAN x10^3 (test 0.07 10*3/uL 0.00-0.06 H code = 4153430641) LYMPH x10^3 (test code 1.30 10*3/uL 1.09-3.23 = 731-0) MONO x10^3 (test code 0.84 10*3/uL 0.36-1.02 = 742-7) EOS x10^3 (test code = 0.33 10*3/uL 0.06-0.53 711-2) BASO x10^3 (test code 0.07 10*3/uL 0.01-0.09 = 704-7) Lab Interpretation Abnormal (test code = 60735-1) [facility] WITH [id number] 09:47:29 Test Item Value Reference Range Interpretation Comments WBC (test code = See_Comment [Automated 7290-2) message] The sy stem which generated this result transmitted reference range : 4.20 - 10.70 10*3/?L. The reference range was not used to interpret this result as normal/abnormal . RBC (test code = See_Comment [Automated 987-8) message] The sy stem which generated this [...] RDW-SD (test code = 47.4 fL 38.5-51.6 52230-3) RDW-CV (test code = 14.7 % 12.1-15.4 788-0) PLT (test code = See_Comment H [Automated 777-3) message] The sy stem which generated this result transmitted reference range : 150 - 328 10*3/ ?L. The reference r adama was not used to interpret this result as normal/abnormal . MPV (test code = 11.7 fL 9.8-13.0 34739-0) NRBC/100 WBC (test See_Comment [Automat ed code = 9670348832) message] The system which generated this result transmitted reference range : 0.0 - 10.0 /100 WBCs. The refer ence range was not u sed to interpret th is result as normal/abnormal . NRBC x10^3 (test code See_Comment [Auto mated = 1697017459) message] The s ystem which generated this result transmitted reference range : 10*3/?L. The reference range was not used to interpret this result as normal/abnormal . GRAN MAT (NEUT) % 73.3 % (test code = 770-8) IMM GRAN % (test code 0.70 % = 0915908901) LYMPH % (test code = 13.3 % 736-9) MONO % (test code = 8.6 % 5905-5) EOS % (test code = 3.4 % 713-8) BASO % (test code = 0.7 % 706-2) GRAN MAT x10^3(ANC) 7.15 10*3/uL 1.99-6.95 H (test code = 4720938712) IMM GRAN x10^3 (test 0.07 10*3/uL 0.00-0.06 H code = 5541097311) LYMPH x10^3 (test code 1.30 10*3/uL 1.09-3.23 = 731-0) MONO x10^3 (test code 0.84 10*3/uL 0.36-1.02 = 742-7) EOS x10^3 (test code = 0.33 10*3/uL 0.06-0.53 711-2) BASO x10^3 (test code 0.07 10*3/uL 0.01-0.09 = 704-7) Lab Interpretation Abnormal (test code = 18548-8) [facility] GLUCOSE (AUTOMATED)2022-04-06 01:14:02 Test Item Value Reference Range Interpretation Comments POCT GLU (test code = 8266081396) 130 mg/dL 70-110 H Lab Interpretation (test code = Abnormal 08679-9) [facility] GLUCOSE (AUTOMATED)2022-04-06 01:14:02 Test Item Value Reference Range Interpretation Comments POCT GLU (test code = 4844683551) 130 mg/dL 70-110 H Lab Interpretation (test code = Abnormal 55095-9) [facility] GLUCOSE (AUTOMATED)2022-04-06 01:14:02 Test Item Value Reference Range Interpretation Comments POCT GLU (test code = 4339513509) 130 mg/dL 70-110 H Lab Interpretation (test code = Abnormal 16798-9) [facility] GLUCOSE (AUTOMATED)2022-04-06 01:14:02 Test Item Value Reference Range Interpretation Comments POCT GLU (test code = 7272003343) 130 mg/dL 70-110 H Lab Interpretation (test code = Abnormal 05104-6) [facility]:40:00 Test Item Value Reference Range Interpretation Comments HBsAB (test code = Positive 8807283595) HBsAb mIU/mL Semi-Quantitative (test code = 9623375556) MARINO (test code = Interpretation: MARINO) ?Hepatitis B Surface Antibody ? Negative - Patient is considered to be not immune to infection with HBV. ? ? Positive - Anti-HBs detected at greater than or equal to 12 mIU/mL. ?Patient is considered to be immune to infection with HBV. ? [facility] B Surface Antibody (HBsAb)2022-04-05 23:40:00 Test Item Value Reference Range Interpretation Comments HBsAB (test code = Positive 1248484258) HBsAb mIU/mL Semi-Quantitative (test code = 8006254409) MARINO (test code = Interpretation: MARINO) ?Hepatitis B Surface Antibody ? Negative - Patient is considered to be not immune to infection with HBV. ? ? Positive - Anti-HBs detected at greater than or equal to 12 mIU/mL. ?Patient is considered to be immune to infection with HBV. ? [facility] 23:40:00 Test Item Value Reference Range Interpretation Comments HBsAB (test code = Positive 4886187870) HBsAb mIU/mL Semi-Quantitative (test code = 0775915286) MARINO (test code = Interpretation: MARINO) ?Hepatitis B Surface Antibody ? Negative - Patient is considered to be not immune to infection with HBV. ? ? Positive - Anti-HBs detected at greater than or equal to 12 mIU/mL. ?Patient is considered to be immune to infection with HBV. ? [facility] 23:40:00 Test Item Value Reference Range Interpretation Comments HBsAB (test code = Positive 3673367604) HBsAb mIU/mL Semi-Quantitative (test code = 6057088272) MARINO (test code = Interpretation: MARINO) ?Hepatitis B Surface Antibody ? Negative - Patient is considered to be not immune to infection with HBV. ? ? Positive - Anti-HBs detected at greater than or equal to 12 mIU/mL. ?Patient is considered to be immune to infection with HBV. ? [facility] B Surface Antigen (HBsAg)2022-04-05 23:23:11 Test Item Value Reference Range Interpretation Comments HBsAg Semi-Quantitative (test code = Negative Negative 5195-3) [facility] B Surface Antigen (HBsAg)2022-04-05 23:23:11 Test Item Value Reference Range Interpretation Comments HBsAg Semi-Quantitative (test code = Negative Negative 5195-3) [facility] B Surface Antigen (HBsAg)2022-04-05 23:23:11 Test Item Value Reference Range Interpretation Comments HBsAg Semi-Quantitative (test code = Negative Negative 5195-3) [facility] ([facility]Ag[facility]2022-04-05 23:23:11 Test Item Value Reference Range Interpretation Comments HBsAg Semi-Quantitative (test code = Negative Negative 5195-3) [facility] GLUCOSE (AUTOMATED)2022-04-05 21:40:01 Test Item Value Reference Range Interpretation Comments POCT GLU (test code = 5627409591) 91 mg/dL 70-110 Lab Interpretation (test code = Normal 38289-9) [facility] GLUCOSE (AUTOMATED)2022-04-05 21:40:01 Test Item Value Reference Range Interpretation Comments POCT GLU (test code = 9966273896) 91 mg/dL 70-110 Lab Interpretation (test code = Normal 25601-0) [facility] GLUCOSE (AUTOMATED)2022-04-05 21:40:01 Test Item Value Reference Range Interpretation Comments POCT GLU (test code = 9022000604) 91 mg/dL 70-110 Lab Interpretation (test code = Normal 23203-3) [facility] GLUCOSE (AUTOMATED)2022-04-05 21:40:01 Test Item Value Reference Range Interpretation Comments POCT GLU (test code = 2433736011) 91 mg/dL 70-110 Lab Interpretation (test code = Normal 12569-9) [facility] GLUCOSE (AUTOMATED)2022-04-05 17:02:57 Test Item Value Reference Range Interpretation Comments POCT GLU (test code = 9816447291) 101 mg/dL 70-110 Lab Interpretation (test code = Normal 72564-9) [facility] GLUCOSE (AUTOMATED)2022-04-05 17:02:57 Test Item Value Reference Range Interpretation Comments POCT GLU (test code = 4765635610) 101 mg/dL 70-110 Lab Interpretation (test code = Normal 91043-1) [facility]2022-04-05 17:02:57 Test Item Value Reference Range Interpretation Comments POCT GLU (test code = 9594484554) 101 mg/dL 70-110 Lab Interpretation (test code = Normal 19708-8) [facility] GLUCOSE (AUTOMATED)2022-04-05 17:02:57 Test Item Value Reference Range Interpretation Comments POCT GLU (test code = 3961635154) 101 mg/dL 70-110 Lab Interpretation (test code = Normal 02300-6) [facility] [id number] 16:12:14 Test Item Value Reference Range Interpretation Comments CRP (test code = 18.7 mg/dL See_Comment H [Automated message] 7227922897) The system [employer] generated this result transmit rudolph reference range : <=0.8. The refe rence range was not u sed to interpret th is result as normal/abnormal . Lab Interpretation Abnormal (test code = 91740-7) [facility] [id number] 16:12:14 Test Item Value Reference Range Interpretation Comments CRP (test code = 18.7 mg/dL See_Comment H [Automated message] 8518760336) The system [employer] generated this result transmit rudolph reference range : <=0.8. The refe rence range was not u sed to interpret th is result as normal/abnormal . Lab Interpretation Abnormal (test code = 00520-4) [facility] [id number] 16:12:14 Test Item Value Reference Range Interpretation Comments CRP (test code = 18.7 mg/dL See_Comment H [Automated message] 1845355003) The system [employer] generated this result transmit rudolph reference range : <=0.8. The refe rence range was not u sed to interpret th is result as normal/abnormal . Lab Interpretation Abnormal (test code = 16667-4) [facility] [id number] 16:12:14 Test Item Value Reference Range Interpretation Comments CRP (test code = 18.7 mg/dL See_Comment H [Automated message] 7709780023) The system [employer] generated this result transmit rudolph reference range : <=0.8. The refe rence range was not u sed to interpret th is result as normal/abnormal . Lab Interpretation Abnormal (test code = 16131-5) [facility] GLUCOSE (AUTOMATED)2022-04-05 13:35:19 Test Item Value Reference Range Interpretation Comments POCT GLU (test code = 1781225304) 76 mg/dL 70-110 Lab Interpretation (test code = Normal 90262-3) [facility] GLUCOSE (AUTOMATED)2022-04-05 13:35:19 Test Item Value Reference Range Interpretation Comments POCT GLU (test code = 6398888105) 76 mg/dL 70-110 Lab Interpretation (test code = Normal 17111-3) [facility] GLUCOSE (AUTOMATED)2022-04-05 13:35:19 Test Item Value Reference Range Interpretation Comments POCT GLU (test code = 4500911330) 76 mg/dL 70-110 Lab Interpretation (test code = Normal 74684-6) [facility] GLUCOSE (AUTOMATED)2022-04-05 13:35:19 Test Item Value Reference Range Interpretation Comments POCT GLU (test code = 7880889999) 76 mg/dL 70-110 Lab Interpretation (test code = Normal 10771-0) [facility] Metabolic Panel (NA, K, CL, CO2, GLUCOSE, BUN, CREATININE, CA)2022-04-05 10:00:31 Test Item Value Reference Range Interpretation Comments NA (test code = 136 mmol/L 135-145 0318152402) K (test code = 4.6 mmol/L 3.5-5.0 6103169245) CL (test code = 98 mmol/L 98-108 9088566246) CO2 TOTAL (test code = 28 mmol/L 23-31 1283066693) AGAP (test code = 2-16 0633953389) BUN (test code = 50 mg/dL 7-23 H 6979842702) GLUCOSE (test code = 74 mg/dL 70-110 4852402478) CREATININE (test code = 8.89 mg/dL 0.60-1.25 H 3398242733) CALCIUM (test code = 9.0 mg/dL 8.6-10.6 1797586318) eGFR (test code = mL/min/1.73m2 7994681812) MARINO (test code = MARINO) Association of [...] tests). Lab Interpretation Abnormal (test code = 81311-9) [facility] Metabolic Panel (NA, K, CL, CO2, GLUCOSE, BUN, CREATININE, CA)2022-04-05 10:00:31 Test Item Value Reference Range Interpretation Comments NA (test code = 136 mmol/L 135-145 9227717597) K (test code = 4.6 mmol/L 3.5-5.0 9155472983) CL (test code = 98 mmol/L 98-108 1177578684) CO2 TOTAL (test code = 28 mmol/L 23-31 8423050418) AGAP (test code = 2-16 1011069391) BUN (test code = 50 mg/dL 7-23 H 7671515270) GLUCOSE (test code = 74 mg/dL 70-110 9263222129) CREATININE (test code = 8.89 mg/dL 0.60-1.25 H 8112937622) CALCIUM (test code = 9.0 mg/dL 8.6-10.6 6713711445) eGFR (test code = mL/min/1.73m2 1432078979) MARINO (test code = MARINO) Association of [...] tests). Lab Interpretation Abnormal (test code = 05472-4) [facility] (NA, K, CL, CO2, GLUCOSE, BUN, CREATININE, CA)2022-04-05 10:00:31 Test Item Value Reference Range Interpretation Comments NA (test code = 136 mmol/L 135-145 9899525282) K (test code = 4.6 mmol/L 3.5-5.0 2022121489) CL (test code = 98 mmol/L 98-108 4174551829) CO2 TOTAL (test code = 28 mmol/L 23-31 6660838673) AGAP (test code = 2-16 0353355439) BUN (test code = 50 mg/dL 7-23 H 8239145600) GLUCOSE (test code = 74 mg/dL 70-110 6631790630) CREATININE (test code = 8.89 mg/dL 0.60-1.25 H 8946532870) CALCIUM (test code = 9.0 mg/dL 8.6-10.6 4087049780) eGFR (test code = mL/min/1.73m2 4798037185) MARINO (test code = MARINO) Association of [...] tests). Lab Interpretation Abnormal (test code = 43441-8) [facility] Metabolic Panel (NA, K, CL, CO2, GLUCOSE, BUN, CREATININE, CA)2022-04-05 10:00:31 Test Item Value Reference Range Interpretation Comments NA (test code = 136 mmol/L 135-145 1814318764) K (test code = 4.6 mmol/L 3.5-5 7205076170) CL (test code = 98 mmol/L 98-108 4930186341) CO2 TOTAL (test code = 28 mmol/L 23-31 3333700208) AGAP (test code = 2-16 3638294229) BUN (test code = 50 mg/dL 7-23 H 9440558641) GLUCOSE (test code = 74 mg/dL 70-110 4140650822) CREATININE (test code = 8.89 mg/dL 0.6-1.25 H 6246924898) CALCIUM (test code = 9.0 mg/dL 8.6-10.6 5567325877) eGFR (test code = mL/min/1.73m2 5412057549) MARINO (test code = MARINO) Association of [...] tests). Lab Interpretation Abnormal (test code = 03515-6) [facility] with [id number] 09:37:28 Test Item Value Reference Range Interpretation Comments WBC (test code = See_Comment [Automated 2358-2) message] The sy stem which generated this [...] RDW-SD (test code = 44.4 fL 38.5-51.6 35667-5) RDW-CV (test code = 14.4 % 12.1-15.4 788-0) PLT (test code = See_Comment [Automated 777-3) message] The sy stem which generated this result transmitted reference range : 150 - 328 10*3/ ?L. The reference r adama was not used to interpret this result as normal/abnormal . MPV (test code = 11.8 fL 9.8-13.0 52254-6) NRBC/100 WBC (test See_Comment [Automat ed code = 2789369282) message] The system which generated this result transmitted reference range : 0.0 - 10.0 /100 WBCs. The refer ence range was not u sed to interpret th is result as normal/abnormal . NRBC x10^3 (test code See_Comment [Auto mated = 9386239061) message] The s ystem which generated this result transmitted reference range : 10*3/?L. The reference range was not used to interpret this result as normal/abnormal . GRAN MAT (NEUT) % 74.7 % (test code = 770-8) IMM GRAN % (test code 0.60 % = 6521392839) LYMPH % (test code = 11.4 % 736-9) MONO % (test code = 9.6 % 5905-5) EOS % (test code = 2.8 % 713-8) BASO % (test code = 0.9 % 706-2) GRAN MAT x10^3(ANC) 7.11 10*3/uL 1.99-6.95 H (test code = 2861641381) IMM GRAN x10^3 (test 0.06 10*3/uL 0.00-0.06 code = 7190819686) LYMPH x10^3 (test code 1.09 10*3/uL 1.09-3.23 = 731-0) MONO x10^3 (test code 0.92 10*3/uL 0.36-1.02 = 742-7) EOS x10^3 (test code = 0.27 10*3/uL 0.06-0.53 711-2) BASO x10^3 (test code 0.09 10*3/uL 0.01-0.09 = 704-7) Lab Interpretation Abnormal (test code = 53106-4) [facility] with Zovvpnyhdxhy1921-61-92 09:37:28 Test Item Value Reference Range Interpretation Comments WBC (test code = See_Comment [Automated 6490-2) message] The sy stem which generated this result transmitted reference range : 4.20 - 10.70 10*3/?L. The reference range was not used to interpret this result as normal/abnormal . RBC (test code = See_Comment L [Automated 9-8) message] The sy stem which generated this [...] RDW-SD (test code = 44.4 fL 38.5-51.6 34598-0) RDW-CV (test code = 14.4 % 12.1-15.4 788-0) PLT (test code = See_Comment [Automated 777-3) message] The sy stem which generated this result transmitted reference range : 150 - 328 10*3/ ?L. The reference r adama was not used to interpret this result as normal/abnormal . MPV (test code = 11.8 fL 9.8-13.0 66777-2) NRBC/100 WBC (test See_Comment [Automat ed code = 4244866142) message] The system which generated this result transmitted reference range : 0.0 - 10.0 /100 WBCs. The refer ence range was not u sed to interpret th is result as normal/abnormal . NRBC x10^3 (test code See_Comment [Auto mated = 0618674181) message] The s ystem which generated this result transmitted reference range : 10*3/?L. The reference range was not used to interpret this result as normal/abnormal . GRAN MAT (NEUT) % 74.7 % (test code = 770-8) IMM GRAN % (test code 0.60 % = 4388858677) LYMPH % (test code = 11.4 % 736-9) MONO % (test code = 9.6 % 5905-5) EOS % (test code = 2.8 % 713-8) BASO % (test code = 0.9 % 706-2) GRAN MAT x10^3(ANC) 7.11 10*3/uL 1.99-6.95 H (test code = 6296608191) IMM GRAN x10^3 (test 0.06 10*3/uL 0.00-0.06 code = 1689137124) LYMPH x10^3 (test code 1.09 10*3/uL 1.09-3.23 = 731-0) MONO x10^3 (test code 0.92 10*3/uL 0.36-1.02 = 742-7) EOS x10^3 (test code = 0.27 10*3/uL 0.06-0.53 711-2) BASO x10^3 (test code 0.09 10*3/uL 0.01-0.09 = 704-7) Lab Interpretation Abnormal (test code = 98703-6) [facility] with Neeqxwphgtif2005-87-09 09:37:28 Test Item Value Reference Range Interpretation [...] RDW-SD (test code = 44.4 fL 38.5-51.6 33197-8) RDW-CV (test code = 14.4 % 12.1-15.4 788-0) PLT (test code = See_Comment [Automated 777-3) message] The sy stem which generated this result transmitted reference range : 150 - 328 10*3/ ?L. The reference r adama was not used to interpret this result as normal/abnormal . MPV (test code = 11.8 fL 9.8-13.0 79649-6) NRBC/100 WBC (test See_Comment [Automat ed code = 3525365725) message] The system which generated this result transmitted reference range : 0.0 - 10.0 /100 WBCs. The refer ence range was not u sed to interpret th is result as normal/abnormal . NRBC x10^3 (test code See_Comment [Auto mated = 8676022493) message] The s ystem which generated this result transmitted reference range : 10*3/?L. The reference range was not used to interpret this result as normal/abnormal . GRAN MAT (NEUT) % 74.7 % (test code = 770-8) IMM GRAN % (test code 0.60 % = 7458145639) LYMPH % (test code = 11.4 % 736-9) MONO % (test code = 9.6 % 5905-5) EOS % (test code = 2.8 % 713-8) BASO % (test code = 0.9 % 706-2) GRAN MAT x10^3(ANC) 7.11 10*3/uL 1.99-6.95 H (test code = 7779796624) IMM GRAN x10^3 (test 0.06 10*3/uL 0.00-0.06 code = 0855157401) LYMPH x10^3 (test code 1.09 10*3/uL 1.09-3.23 = 731-0) MONO x10^3 (test code 0.92 10*3/uL 0.36-1.02 = 742-7) EOS x10^3 (test code = 0.27 10*3/uL 0.06-0.53 711-2) BASO x10^3 (test code 0.09 10*3/uL 0.01-0.09 = 704-7) Lab Interpretation Abnormal (test code = 27904-0) [facility] with Hyppzqmyykwo5842-72-30 09:37:28 Test Item Value Reference Range Interpretation Comments WBC (test code = See_Comment [Automated 2390-2) message] The sy stem which generated this result transmitted reference range : 4.20 - 10.70 10*3/?L. The reference range was not used to interpret this result as normal/abnormal . RBC (test code = See_Comment L [Automated 899-8) message] The sy stem which generated this [...] RDW-SD (test code = 44.4 fL 38.5-51.6 09529-8) RDW-CV (test code = 14.4 % 12.1-15.4 788-0) PLT (test code = See_Comment [Automated 777-3) message] The sy stem which generated this result transmitted reference range : 150 - 328 10*3/ ?L. The reference r adama was not used to interpret this result as normal/abnormal . MPV (test code = 11.8 fL 9.8-13 00786-9) NRBC/100 WBC (test See_Comment [Automat ed code = 4024987435) message] The system which generated this result transmitted reference range : 0.0 - 10.0 /100 WBCs. The refer ence range was not u sed to interpret th is result as normal/abnormal . NRBC x10^3 (test code See_Comment [Auto mated = 5488859371) message] The s ystem which generated this result transmitted reference range : 10*3/?L. The reference range was not used to interpret this result as normal/abnormal . GRAN MAT (NEUT) % 74.7 % (test code = 770-8) IMM GRAN % (test code 0.60 % = 1095447954) LYMPH % (test code = 11.4 % 736-9) MONO % (test code = 9.6 % 5905-5) EOS % (test code = 2.8 % 713-8) BASO % (test code = 0.9 % 706-2) GRAN MAT x10^3(ANC) 7.11 10*3/uL 1.99-6.95 H (test code = 4397171962) IMM GRAN x10^3 (test 0.06 10*3/uL 0-0.06 code = 5363914606) LYMPH x10^3 (test code 1.09 10*3/uL 1.09-3.23 = 731-0) MONO x10^3 (test code 0.92 10*3/uL 0.36-1.02 = 742-7) EOS x10^3 (test code = 0.27 10*3/uL 0.06-0.53 711-2) BASO x10^3 (test code 0.09 10*3/uL 0.01-0.09 = 704-7) Lab Interpretation Abnormal (test code = 14350-4) [facility] GLUCOSE (AUTOMATED)2022-04-05 03:05:57 Test Item Value Reference Range Interpretation Comments POCT GLU (test code = 5553383967) 167 mg/dL 70-110 H Lab Interpretation (test code = Abnormal 44736-1) [facility] GLUCOSE (AUTOMATED)2022-04-05 03:05:57 Test Item Value Reference Range Interpretation Comments POCT GLU (test code = 3269563059) 167 mg/dL 70-110 H Lab Interpretation (test code = Abnormal 15776-7) [facility] GLUCOSE (AUTOMATED)2022-04-05 03:05:57 Test Item Value Reference Range Interpretation Comments POCT GLU (test code = 3661804909) 167 mg/dL 70-110 H Lab Interpretation (test code = Abnormal 13236-8) [facility] GLUCOSE (AUTOMATED)2022-04-05 03:05:57 Test Item Value Reference Range Interpretation Comments POCT GLU (test code = 8439397292) 167 mg/dL 70-110 H Lab Interpretation (test code = Abnormal 73878-8) [facility] 00:32:31 Test Item Value Reference Range Interpretation Comments HGB A1C (test code = 6.4 % 4-5.7 H 4548-4) MARINO (test code = MARINO) Reference RangesNormal: <5.7%Prediabetes: 5.7 - 6.4%Diabetes: > 6.5% Lab Interpretation (test Abnormal code = 15096-4) [facility]2022-[facility]-05 00:32:31 Test Item Value Reference Range Interpretation Comments HGB A1C (test code = 6.4 % 4.0-5.7 H 4548-4) MARINO (test code = MARINO) Reference RangesNormal: <5.7%Prediabetes: 5.7 - 6.4%Diabetes: > 6.5% Lab Interpretation (test Abnormal code = 75147-2) [facility]2022-[facility]-05 00:32:31 Test Item Value Reference Range Interpretation Comments HGB A1C (test code = 6.4 % 4.0-5.7 H 4548-4) MARINO (test code = MARINO) Reference RangesNormal: <5.7%Prediabetes: 5.7 - 6.4%Diabetes: > 6.5% Lab Interpretation (test Abnormal code = 02286-0) [facility]2022-04-05 00:32:31 Test Item Value Reference Range Interpretation Comments HGB A1C (test code = 6.4 % 4.0-5.7 H 4548-4) MARINO (test code = MARINO) Reference RangesNormal: <5.7%Prediabetes: 5.7 - 6.4%Diabetes: > 6.5% Lab Interpretation (test Abnormal code = 92571-2) [facility] (Total Cholesterol, Triglycerides, HDL) - Orwxhhh3018-33-28 00:07:29 Test Item Value Reference Range Interpretation Comments CHOL (test code = 109 mg/dL 120-200 L 7595182400) HDL (test code = 44 mg/dL See_Comment [Automated message] 5263467451) The system [employer] generated this result transmit rudolph reference range : >=40. The refer ence range was not u sed to interpret th is result as normal/abnormal . HDLC RATIO (test code = See_Comment [Au tomated message] 0746494508) The system [employer] generated this result transmit rudolph reference range : <=5.0. The refe rence range was not u sed to interpret th is result as normal/abnormal . TRIG (test code = 94 mg/dL 30-170 1369387650) LDL CHOL (test code = 46 mg/dL See_Comment [Auto mated message] 04367-0) The system [employer] generated this result transmit rudolph reference range : <=160. The refe rence range was not u sed to interpret th is result as normal/abnormal . VLDL (test code = 19 mg/dL 5-60 8196024272) Lab Interpretation (test Abnormal code = 43712-0) [facility] Xhrly7846-08-84 00:07:29 Test Item Value Reference Range Interpretation Comments MAGNESIUM (test code = 7539021201) 2.1 mg/dL 1.7-2.4 Lab Interpretation (test code = Normal 21188-8) [facility] (Total Cholesterol, Triglycerides, HDL) - Xjittby9174-45-96 00:07:29 Test Item Value Reference Range Interpretation Comments CHOL (test code = 109 mg/dL 120-200 L 5640136113) HDL (test code = 44 mg/dL See_Comment [Automated message] 5640719399) The system [employer] generated this result transmit rudolph reference range : >=40. The refer ence range was not u sed to interpret th is result as normal/abnormal . HDLC RATIO (test code = See_Comment [Au tomated message] 9466617601) The system [employer] generated this result transmit rudolph reference range : <=5.0. The refe rence range was not u sed to interpret th is result as normal/abnormal . TRIG (test code = 94 mg/dL 30-170 3421512307) LDL CHOL (test code = 46 mg/dL See_Comment [Auto mated message] 18487-8) The system [employer] generated this result transmit rudolph reference range : <=160. The refe rence range was not u sed to interpret th is result as normal/abnormal . VLDL (test code = 19 mg/dL 5-60 1291645673) Lab Interpretation (test Abnormal code = 49016-8) [facility] Ddcgw7486-84-96 00:07:29 Test Item Value Reference Range Interpretation Comments MAGNESIUM (test code = 3880800522) 2.1 mg/dL 1.7-2.4 Lab Interpretation (test code = Normal 13913-7) [facility] (Total Cholesterol, Triglycerides, HDL) - Kmzozvb9683-04-42 00:07:29 Test Item Value Reference Range Interpretation Comments CHOL (test code = 109 mg/dL 120-200 L 7540454261) HDL (test code = 44 mg/dL See_Comment [Automated message] 7081423298) The system [employer] generated this result transmit rudolph reference range : >=40. The refer ence range was not u sed to interpret th is result as normal/abnormal . HDLC RATIO (test code = See_Comment [Au tomated message] 7197355426) The system [employer] generated this result transmit rudolph reference range : <=5.0. The refe rence range was not u sed to interpret th is result as normal/abnormal . TRIG (test code = 94 mg/dL 30-170 9446960156) LDL CHOL (test code = 46 mg/dL See_Comment [Auto mated message] 16584-8) The system [employer] generated this result transmit rudolph reference range : <=160. The refe rence range was not u sed to interpret th is result as normal/abnormal . VLDL (test code = 19 mg/dL 5-60 7285921171) Lab Interpretation (test Abnormal code = 03860-0) [facility] Xyeqv1442-28-45 00:07:29 Test Item Value Reference Range Interpretation Comments MAGNESIUM (test code = 9626379347) 2.1 mg/dL 1.7-2.4 Lab Interpretation (test code = Normal 36521-1) [facility] (Total Cholesterol, Triglycerides, HDL) - Rmjthxa9105-25-67 00:07:29 Test Item Value Reference Range Interpretation Comments CHOL (test code = 109 mg/dL 120-200 L 0762928037) HDL (test code = 44 mg/dL See_Comment [Automated message] 2395735897) The system [employer] generated this result transmit rudolph reference range : >=40. The refer ence range was not u sed to interpret th is result as normal/abnormal . HDLC RATIO (test code = See_Comment [Au tomated message] 5002107591) The system [employer] generated this result transmit rudolph reference range : <=5.0. The refe rence range was not u sed to interpret th is result as normal/abnormal . TRIG (test code = 94 mg/dL 30-170 0601691733) LDL CHOL (test code = 46 mg/dL See_Comment [Auto mated message] 36598-0) The system [employer] generated this result transmit rudolph reference range : <=160. The refe rence range was not u sed to interpret th is result as normal/abnormal . VLDL (test code = 19 mg/dL 5-60 4543785111) Lab Interpretation (test Abnormal code = 36998-9) [facility] [id number] 00:07:29 Test Item Value Reference Range Interpretation Comments MAGNESIUM (test code = 1416219464) 2.1 mg/dL 1.7-2.4 Lab Interpretation (test code = Normal 05952-1) [facility] Ittpf9864-56-64 00:07:09 Test Item Value Reference Range Interpretation Comments PHOSPHORUS (test code = 7639450272) 5.4 mg/dL 2.5-5 H Lab Interpretation (test code = Abnormal 40142-7) [facility] Dfjbo5781-53-77 00:07:09 Test Item Value Reference Range Interpretation Comments PHOSPHORUS (test code = 0825856681) 5.4 mg/dL 2.5-5.0 H Lab Interpretation (test code = Abnormal 83655-7) [facility] Skxyy5792-61-48 00:07:09 Test Item Value Reference Range Interpretation Comments PHOSPHORUS (test code = 8097050724) 5.4 mg/dL 2.5-5.0 H Lab Interpretation (test code = Abnormal 31727-4) [facility] Haxmu5242-20-55 00:07:09 Test Item Value Reference Range Interpretation Comments PHOSPHORUS (test code = 4695359670) 5.4 mg/dL 2.5-5.0 H Lab Interpretation (test code = Abnormal 21762-4) [facility] [id number] 18:10:11 Test Item Value Reference Range Interpretation Comments ESR (test code = See_Comment H [Automated message] 50116-0) The system [employer] generated this result transmitted ref erence range: 0 - 10 m m/HR. The reference r adama was not used to interpret this result as normal/abnor mal. Lab Interpretation (test Abnormal code = 57926-7) [facility] [id number] 18:10:11 Test Item Value Reference Range Interpretation Comments ESR (test code = See_Comment H [Automated message] 16477-3) The system [employer] generated this result transmitted ref erence range: 0 - 10 m m/HR. The reference r adama was not used to interpret this result as normal/abnor mal. Lab Interpretation (test Abnormal code = 93065-4) [facility] [id number] 18:10:11 Test Item Value Reference Range Interpretation Comments ESR (test code = See_Comment H [Automated message] 90128-4) The system [employer] generated this result transmitted ref erence range: 0 - 10 m m/HR. The reference r adama was not used to interpret this result as normal/abnor mal. Lab Interpretation (test Abnormal code = 98046-9) [facility] [id number] 18:10:11 Test Item Value Reference Range Interpretation Comments ESR (test code = See_Comment H [Automated message] 96463-1) The system [employer] generated this result transmitted ref erence range: 0 - 10 m m/HR. The reference r adama was not used to interpret this result as normal/abnor mal. Lab Interpretation (test Abnormal code = 68726-5) [facility]. METABOLIC PANEL (67523)2022-04-04 17:44:51 Test Item Value Reference Range Interpretation Comments NA (test code = 137 mmol/L 135-145 4199679644) K (test code = 4.6 mmol/L 3.5-5 8903474409) CL (test code = 92 mmol/L 98-108 L 3195137180) CO2 TOTAL (test code = 29 mmol/L 23-31 1369681288) AGAP (test code = 2-16 3849299517) BUN (test code = 37 mg/dL 7-23 H 9429688866) GLUCOSE (test code = 95 mg/dL 70-110 7595216174) CREATININE (test code = 7.67 mg/dL 0.6-1.25 H 7193416526) TOTAL BILI (test code = 0.5 mg/dL 0.1-1.6 7284302899) CALCIUM (test code = 9.2 mg/dL 8.6-10.6 5083908101) T PROTEIN (test code = 7.1 g/dL 6.3-8.2 4597454685) ALBUMIN (test code = 4.0 g/dL 3.5-5 8596239340) ALK PHOS (test code = 67 U/L 34-122 3264734158) ALTv (test code = 15 U/L 5-50 1742-6) AST(SGOT) (test code = 21 U/L 13-40 5223628496) eGFR (test code = mL/min/1.73m2 9232359699) MARINO (test code = MARINO) Association of [...] tests). Lab Interpretation Abnormal (test code = 95385-4) [facility]. METABOLIC PANEL (09544)2022-04-04 17:44:51 Test Item Value Reference Range Interpretation Comments NA (test code = 137 mmol/L 135-145 9406094901) K (test code = 4.6 mmol/L 3.5-5.0 0317361565) CL (test code = 92 mmol/L 98-108 L 0926447484) CO2 TOTAL (test code = 29 mmol/L 23-31 9325965557) AGAP (test code = 2-16 8778141509) BUN (test code = 37 mg/dL 7-23 H 0940503062) GLUCOSE (test code = 95 mg/dL 70-110 8852066075) CREATININE (test code = 7.67 mg/dL 0.60-1.25 H 1769059764) TOTAL BILI (test code = 0.5 mg/dL 0.1-1.7 7222376033) CALCIUM (test code = 9.2 mg/dL 8.6-10.6 3822694269) T PROTEIN (test code = 7.1 g/dL 6.3-8.2 2231616975) ALBUMIN (test code = 4.0 g/dL 3.5-5.0 1214794929) ALK PHOS (test code = 67 U/L 34-122 8239997236) ALTv (test code = 15 U/L 5-50 2-6) AST(SGOT) (test code = 21 U/L 13-40 1118352370) eGFR (test code = mL/min/1.73m2 3930758149) MARINO (test code = MARINO) Association of [...] tests). Lab Interpretation Abnormal (test code = 79429-8) [facility]. METABOLIC PANEL (32567)2022-04-04 17:44:51 Test Item Value Reference Range Interpretation Comments NA (test code = 137 mmol/L 135-145 5014529186) K (test code = 4.6 mmol/L 3.5-5.0 3162322268) CL (test code = 92 mmol/L 98-108 L 1250926690) CO2 TOTAL (test code = 29 mmol/L 23-31 3140519125) AGAP (test code = 2-16 3836523490) BUN (test code = 37 mg/dL 7-23 H 8746984493) GLUCOSE (test code = 95 mg/dL 70-110 0202980723) CREATININE (test code = 7.67 mg/dL 0.60-1.25 H 4397281551) TOTAL BILI (test code = 0.5 mg/dL 0.1-1.5 9570978485) CALCIUM (test code = 9.2 mg/dL 8.6-10.6 2030273783) T PROTEIN (test code = 7.1 g/dL 6.3-8.2 2015561945) ALBUMIN (test code = 4.0 g/dL 3.5-5.0 2896539694) ALK PHOS (test code = 67 U/L 34-122 0753881751) ALTv (test code = 15 U/L 5-50 2-6) AST(SGOT) (test code = 21 U/L 13-40 8327318256) eGFR (test code = mL/min/1.73m2 4155923973) MARINO (test code = MARINO) Association of [...] tests). Lab Interpretation Abnormal (test code = 73286-6) [facility]. METABOLIC PANEL (32190)2022-04-04 17:44:51 Test Item Value Reference Range Interpretation Comments NA (test code = 137 mmol/L 135-145 4160153132) K (test code = 4.6 mmol/L 3.5-5.0 4134983717) CL (test code = 92 mmol/L 98-108 L 1217704959) CO2 TOTAL (test code = 29 mmol/L 23-31 7822364391) AGAP (test code = 2-16 5656683047) BUN (test code = 37 mg/dL 7-23 H 6558982528) GLUCOSE (test code = 95 mg/dL 70-110 2013819135) CREATININE (test code = 7.67 mg/dL 0.60-1.25 H 3003892415) TOTAL BILI (test code = 0.5 mg/dL 0.1-1.2 8297760774) CALCIUM (test code = 9.2 mg/dL 8.6-10.6 3213707373) T PROTEIN (test code = 7.1 g/dL 6.3-8.2 1886560838) ALBUMIN (test code = 4.0 g/dL 3.5-5.0 4640486795) ALK PHOS (test code = 67 U/L 34-122 3367730535) ALTv (test code = 15 U/L 5-50 1742-6) AST(SGOT) (test code = 21 U/L 13-40 4144390862) eGFR (test code = mL/min/1.73m2 0437108438) MARINO (test code = MARINO) Association of [...] tests). Lab Interpretation Abnormal (test code = 49759-6) [facility] WITH [id number] 17:33:28 Test Item Value Reference Range Interpretation Comments WBC (test code = See_Comment H [Automated 9790-2) message] The sy stem which generated this result transmitted reference range : 4.20 - 10.70 10*3/?L. The reference range was not used to interpret this result as normal/abnormal . RBC (test code = See_Comment L [Automated 539-8) message] The sy stem which generated this [...] RDW-SD (test code = 45.8 fL 38.5-51.6 28645-8) RDW-CV (test code = 14.6 % 12.1-15.4 788-0) PLT (test code = See_Comment [Automated 777-3) message] The sy stem which generated this result transmitted reference range : 150 - 328 10*3/ ?L. The reference r adama was not used to interpret this result as normal/abnormal . MPV (test code = 12.6 fL 9.8-13 06719-9) NRBC/100 WBC (test See_Comment [Automat ed code = 0874006572) message] The system which generated this result transmitted reference range : 0.0 - 10.0 /100 WBCs. The refer ence range was not u sed to interpret th is result as normal/abnormal . NRBC x10^3 (test code See_Comment [Auto mated = 2310053566) message] The s ystem which generated this result transmitted reference range : 10*3/?L. The reference range was not used to interpret this result as normal/abnormal . GRAN MAT (NEUT) % 78.0 % (test code = 770-8) IMM GRAN % (test code 0.50 % = 2052035311) LYMPH % (test code = 10.0 % 736-9) MONO % (test code = 8.8 % 5905-5) EOS % (test code = 1.9 % 713-8) BASO % (test code = 0.8 % 706-2) GRAN MAT x10^3(ANC) 8.83 10*3/uL 1.99-6.95 H (test code = 0521710574) IMM GRAN x10^3 (test 0.06 10*3/uL 0-0.06 code = 2376007963) LYMPH x10^3 (test code 1.13 10*3/uL 1.09-3.23 = 731-0) MONO x10^3 (test code 0.99 10*3/uL 0.36-1.02 = 742-7) EOS x10^3 (test code = 0.21 10*3/uL 0.06-0.53 711-2) BASO x10^3 (test code 0.09 10*3/uL 0.01-0.09 = 704-7) Lab Interpretation Abnormal (test code = 39802-4) [facility] WITH [id number] 17:33:28 Test Item Value Reference Range Interpretation Comments WBC (test code = See_Comment H [Automated 0190-2) message] The sy stem which generated this result transmitted reference range : 4.20 - 10.70 10*3/?L. The reference range was not used to interpret this result as normal/abnormal . RBC (test code = See_Comment L [Automated 409-8) message] The sy stem which generated this [...] RDW-SD (test code = 45.8 fL 38.5-51.6 15186-1) RDW-CV (test code = 14.6 % 12.1-15.4 788-0) PLT (test code = See_Comment [Automated 777-3) message] The sy stem which generated this result transmitted reference range : 150 - 328 10*3/ ?L. The reference r adama was not used to interpret this result as normal/abnormal . MPV (test code = 12.6 fL 9.8-13.0 18142-6) NRBC/100 WBC (test See_Comment [Automat ed code = 1183445859) message] The system which generated this result transmitted reference range : 0.0 - 10.0 /100 WBCs. The refer ence range was not u sed to interpret th is result as normal/abnormal . NRBC x10^3 (test code See_Comment [Auto mated = 2587930593) message] The s ystem which generated this result transmitted reference range : 10*3/?L. The reference range was not used to interpret this result as normal/abnormal . GRAN MAT (NEUT) % 78.0 % (test code = 770-8) IMM GRAN % (test code 0.50 % = 0944603772) LYMPH % (test code = 10.0 % 736-9) MONO % (test code = 8.8 % 5905-5) EOS % (test code = 1.9 % 713-8) BASO % (test code = 0.8 % 706-2) GRAN MAT x10^3(ANC) 8.83 10*3/uL 1.99-6.95 H (test code = 0880048247) IMM GRAN x10^3 (test 0.06 10*3/uL 0.00-0.06 code = 1471334433) LYMPH x10^3 (test code 1.13 10*3/uL 1.09-3.23 = 731-0) MONO x10^3 (test code 0.99 10*3/uL 0.36-1.02 = 742-7) EOS x10^3 (test code = 0.21 10*3/uL 0.06-0.53 711-2) BASO x10^3 (test code 0.09 10*3/uL 0.01-0.09 = 704-7) Lab Interpretation Abnormal (test code = 26134-1) [facility] WITH [id number] 17:33:28 Test Item Value Reference Range Interpretation [...] RDW-SD (test code = 45.8 fL 38.5-51.6 77832-1) RDW-CV (test code = 14.6 % 12.1-15.4 788-0) PLT (test code = See_Comment [Automated 777-3) message] The sy stem which generated this result transmitted reference range : 150 - 328 10*3/ ?L. The reference r adama was not used to interpret this result as normal/abnormal . MPV (test code = 12.6 fL 9.8-13.0 03960-9) NRBC/100 WBC (test See_Comment [Automat ed code = 1584618814) message] The system which generated this result transmitted reference range : 0.0 - 10.0 /100 WBCs. The refer ence range was not u sed to interpret th is result as normal/abnormal . NRBC x10^3 (test code See_Comment [Auto mated = 9457785517) message] The s ystem which generated this result transmitted reference range : 10*3/?L. The reference range was not used to interpret this result as normal/abnormal . GRAN MAT (NEUT) % 78.0 % (test code = 770-8) IMM GRAN % (test code 0.50 % = 8725769005) LYMPH % (test code = 10.0 % 736-9) MONO % (test code = 8.8 % 5905-5) EOS % (test code = 1.9 % 713-8) BASO % (test code = 0.8 % 706-2) GRAN MAT x10^3(ANC) 8.83 10*3/uL 1.99-6.95 H (test code = 5515050168) IMM GRAN x10^3 (test 0.06 10*3/uL 0.00-0.06 code = 5012262418) LYMPH x10^3 (test code 1.13 10*3/uL 1.09-3.23 = 731-0) MONO x10^3 (test code 0.99 10*3/uL 0.36-1.02 = 742-7) EOS x10^3 (test code = 0.21 10*3/uL 0.06-0.53 711-2) BASO x10^3 (test code 0.09 10*3/uL 0.01-0.09 = 704-7) Lab Interpretation Abnormal (test code = 70325-5) [facility] WITH [id number] 17:33:28 Test Item Value Reference Range Interpretation Comments WBC (test code = See_Comment H [Automated 6690-2) message] The sy stem which generated this result transmitted reference range : 4.20 - 10.70 10*3/?L. The reference range was not used to interpret this result as normal/abnormal . RBC (test code = See_Comment L [Automated 019-8) message] The sy stem which generated this [...] RDW-SD (test code = 45.8 fL 38.5-51.6 48809-7) RDW-CV (test code = 14.6 % 12.1-15.4 788-0) PLT (test code = See_Comment [Automated 777-3) message] The sy stem which generated this result transmitted reference range : 150 - 328 10*3/ ?L. The reference r adama was not used to interpret this result as normal/abnormal . MPV (test code = 12.6 fL 9.8-13.0 01880-1) NRBC/100 WBC (test See_Comment [Automat ed code = 3382875769) message] The system which generated this result transmitted reference range : 0.0 - 10.0 /100 WBCs. The refer ence range was not u sed to interpret th is result as normal/abnormal . NRBC x10^3 (test code See_Comment [Auto mated = 0289405201) message] The s ystem which generated this result transmitted reference range : 10*3/?L. The reference range was not used to interpret this result as normal/abnormal . GRAN MAT (NEUT) % 78.0 % (test code = 770-8) IMM GRAN % (test code 0.50 % = 9731050671) LYMPH % (test code = 10.0 % 736-9) MONO % (test code = 8.8 % 5905-5) EOS % (test code = 1.9 % 713-8) BASO % (test code = 0.8 % 706-2) GRAN MAT x10^3(ANC) 8.83 10*3/uL 1.99-6.95 H (test code = 4965981260) IMM GRAN x10^3 (test 0.06 10*3/uL 0.00-0.06 code = 4215438254) LYMPH x10^3 (test code 1.13 10*3/uL 1.09-3.23 = 731-0) MONO x10^3 (test code 0.99 10*3/uL 0.36-1.02 = 742-7) EOS x10^3 (test code = 0.21 10*3/uL 0.06-0.53 711-2) BASO x10^3 (test code 0.09 10*3/uL 0.01-0.09 = 704-7) Lab Interpretation Abnormal (test code = 86513-9) [facility]. METABOLIC PANEL (03160)2022-03-29 22:45:49 Test Item Value Reference Range Interpretation Comments NA (test code = 138 mmol/L 135-145 3943479008) K (test code = 3.9 mmol/L 3.5-5 8801673094) CL (test code = 94 mmol/L 98-108 L 1644390252) CO2 TOTAL (test code = 34 mmol/L 23-31 H 5116015331) AGAP (test code = 2-16 0780458097) BUN (test code = 18 mg/dL 7-23 8270870112) GLUCOSE (test code = 82 mg/dL 70-110 4286769826) CREATININE (test code = 4.21 mg/dL 0.6-1.25 H 3296114172) TOTAL BILI (test code = 0.6 mg/dL 0.1-1.2 2293207614) CALCIUM (test code = 8.7 mg/dL 8.6-10.6 3703561281) T PROTEIN (test code = 7.6 g/dL 6.3-8.2 4945637374) ALBUMIN (test code = 4.3 g/dL 3.5-5 2616329382) ALK PHOS (test code = 64 U/L 34-122 4884368438) ALTv (test code = 15 U/L 5-50 1742-6) AST(SGOT) (test code = 19 U/L 13-40 2434260487) eGFR (test code = mL/min/1.73m2 0168582069) MARINO (test code = MARINO) Association of [...] tests). Lab Interpretation Abnormal (test code = 35747-1) [facility] WITH [id number] 22:44:26 Test Item Value Reference Range Interpretation Comments WBC (test code = See_Comment [Automated 9290-2) message] The sy stem which generated this result transmitted reference range : 4.20 - 10.70 10*3/?L. The reference range was not used to interpret this result as normal/abnormal . RBC (test code = See_Comment [Automated 219-8) message] The sy stem which generated this [...] RDW-SD (test code = 45.3 fL 38.5-51.6 53969-9) RDW-CV (test code = 14.4 % 12.1-15.4 788-0) PLT (test code = See_Comment [Automated 777-3) message] The sy stem which generated this result transmitted reference range : 150 - 328 10*3/ ?L. The reference r adama was not used to interpret this result as normal/abnormal . MPV (test code = 12.7 fL 9.8-13 42089-0) NRBC/100 WBC (test See_Comment [Automat ed code = 0923053297) message] The system which generated this result transmitted reference range : 0.0 - 10.0 /100 WBCs. The refer ence range was not u sed to interpret th is result as normal/abnormal . NRBC x10^3 (test code See_Comment [Auto mated = 7390027212) message] The s ystem which generated this result transmitted reference range : 10*3/?L. The reference range was not used to interpret this result as normal/abnormal . GRAN MAT (NEUT) % 77.2 % (test code = 770-8) IMM GRAN % (test code 0.20 % = 8145112414) LYMPH % (test code = 10.2 % 736-9) MONO % (test code = 10.8 % 5905-5) EOS % (test code = 1.1 % 713-8) BASO % (test code = 0.5 % 706-2) GRAN MAT x10^3(ANC) 6.20 10*3/uL 1.99-6.95 (test code = 0806485673) IMM GRAN x10^3 (test 0-0.06 code = 1494100340) LYMPH x10^3 (test code 0.82 10*3/uL 1.09-3.23 L = 731-0) MONO x10^3 (test code 0.87 10*3/uL 0.36-1.02 = 742-7) EOS x10^3 (test code = 0.09 10*3/uL 0.06-0.53 711-2) BASO x10^3 (test code 0.04 10*3/uL 0.01-0.09 = 704-7) Lab Interpretation Abnormal (test code = 45844-5) [facility] [id number] 13:28:00 Test Item Value Reference Range Interpretation [...] NOT APPLICABLE FOR DIALYSIS PATIEN TS. ALKALINE [id number] 13:23:00 Test Item Value Reference Range Interpretation Comments ALKALINE PHOSPHATASE (BEAKER) (test 102 U/L 40-150 code = 346) CREATINE KINASE (CK)2017-11-18 13:23:00 Test Item Value Reference Range Interpretation Comments CREATINE KINASE TOTAL (BEAKER) (test 56 U/L 29-200 code = 380) LACTATE DEHYDROGENASE (LDH)2017-11-18 13:23:00 Test Item Value Reference Range Interpretation Comments LACTATE DEHYDROGENASE (BEAKER) (test 235 U/L 125-220 H code = 635) [id number] 13:18:00 Test Item Value Reference Range Interpretation Comments PARTIAL THROMBOPLASTIN TIME 35.3 seconds 22.5-36.0 (BEAKER) (test code = 760) PROTHROMBIN [id number] 13:17:00 Test Item Value Reference Range Interpretation Comments PROTIME (BEAKER) (test code = 13.7 seconds 11.7-14.7 759) INR (BEAKER) (test code = 370) 1.1 <=5.9 RECOMMENDED COUMADIN/WARFARIN INR THERAPY RANGESSTANDARD DOSE: 2.0 - 3.0 Includes: PROPHYLAXIS for venous thrombosis, systemic embolization; TREATMENT for venous thrombosis and/or pulmonary embolus.HIGH RISK: Target INR is 2.5-3.5 for patients with mechanical heart valves.[id number] 13:17:00 Test Item Value Reference Range Interpretation Comments FIBRINOGEN LEVEL (BEAKER) (test 467 mg/dl 225-434 H code = 658) CBC W/PLT COUNT & AUTO [id number] 12:54:00 Test Item Value Reference Range Interpretation [...] PERCENT (BEAKER) (test code = 2801) POCT-GLUCOSE [id number] 12:50:00 Test Item Value Reference Range Interpretation Comments POC-GLUCOSE METER 203 mg/dL 70-[address] [facility] 6720 (BEAKER) (test code = [place] 1538) [address] [id number] 08:18:00 Test Item Value Reference Range Interpretation Comments PHOSPHORUS (BEAKER) (test code = 2.1 mg/dL 2.3-4.7 L 604) BASIC METABOLIC [id number] 08:18:00 Test Item Value Reference Range Interpretation [...] PATIEN TS. CBC W/PLT COUNT & AUTO [id number] 08:06:00 Test Item Value Reference Range Interpretation [...] = 2801) CBC W/PLT COUNT & AUTO [id number] 07:54:00 Test Item Value Reference Range Interpretation [...] (BEAKER) (test code = 2801) BASIC METABOLIC [id number] 06:41:00 Test Item Value Reference Range Interpretation [...] S NOT APPLICABLE FOR DIALYSIS PATIEN TS. [id number] 06:37:00 Test Item Value Reference Range Interpretation Comments MAGNESIUM (BEAKER) (test code = 2.4 mg/dL 1.6-2.6 627) POCT-GLUCOSE [id number] 21:17:00 Test Item Value Reference Range Interpretation Comments POC-GLUCOSE METER 147 mg/dL 70-[address] [facility] 6720 (BEAKER) (test code = [facility] 1538) [address] POCT-GLUCOSE [id number] 16:44:00 Test Item Value Reference Range Interpretation Comments POC-GLUCOSE METER 87 mg/dL 70-110 TESTED AT [place] 4266120 (BEAKER) (test code = [facility] [address] 1538) POCT-GLUCOSE [id number] 12:41:00 Test Item Value Reference Range Interpretation Comments POC-GLUCOSE METER 176 mg/dL 70-110 H TESTED AT [place] [address] (BEAKER) (test code = [facility] 1538) [address] POCT-GLUCOSE [id number] 07:36:00 Test Item Value Reference Range Interpretation Comments POC-GLUCOSE METER 140 mg/dL 70-110 H TESTED AT [place] [address] (BEAKER) (test code = [facility] 1538) [address] BASIC METABOLIC [id number] 05:04:00 Test Item Value Reference Range Interpretation [...] S NOT APPLICABLE FOR DIALYSIS PATIEN TS. [id number] 05:03:00 Test Item Value Reference Range Interpretation Comments MAGNESIUM (BEAKER) (test code = 2.4 mg/dL 1.6-2.6 627) [id number] 22:18:00 Test Item Value Reference Range Interpretation Comments POTASSIUM (BEAKER) (test code = 3.6 meq/L 3.5-5.1 379) POCT-GLUCOSE [id number] 22:07:00 Test Item Value Reference Range Interpretation Comments POC-GLUCOSE METER 104 mg/dL 70-[address] [facility] 6720 (BEAKER) (test code = [place] 1538) [address] POCT-GLUCOSE [id number] 16:59:00 Test Item Value Reference Range Interpretation Comments POC-GLUCOSE METER 130 mg/dL 70-[address] [facility] 6720 (BEAKER) (test code = [place] 1538) [address] ALKALINE [id number] 14:14:00 Test Item Value Reference Range Interpretation Comments ALKALINE PHOSPHATASE (BEAKER) (test 40 U/L 40-150 code = 346) PROTEIN, [id number] 14:14:00 Test Item Value Reference Range Interpretation Comments TOTAL PROTEIN (BEAKER) (test code = 6.3 gm/dL 6.0-8.3 770) AST (SGOT)2017-10-27 14:14:00 Test Item Value Reference Range Interpretation Comments AST (SGOT) (BEAKER) (test code = 353) 68 U/L 5-34 H ALT (SGPT)2017-10-27 14:14:00 Test Item Value Reference Range Interpretation Comments ALT (SGPT) (BEAKER) (test code = 347) 90 U/L 6-55 H BILIRUBIN, TOTAL AND [id number] 14:14:00 Test Item Value Reference Range Interpretation Comments BILIRUBIN TOTAL (BEAKER) (test code 0.2 mg/dL 0.2-1.2 = 377) BILIRUBIN DIRECT (BEAKER) (test 0.1 mg/dL 0.1-0.5 code = 706) [id number] 14:14:00 Test Item Value Reference Range Interpretation [...] U/L 125-220 H code = 635) PROTHROMBIN [id number] 13:54:00 Test Item Value Reference Range Interpretation Comments PROTIME (BEAKER) (test code = 14.6 seconds 11.7-14.7 759) INR (BEAKER) (test code = 370) 1.1 <=5.9 RECOMMENDED COUMADIN/WARFARIN INR THERAPY RANGESSTANDARD DOSE: 2.0 - 3.0 Includes: PROPHYLAXIS for venous thrombosis, systemic embolization; TREATMENT for venous thrombosis and/or pulmonary embolus.HIGH RISK: Target INR is 2.5-3.5 for patients with mechanical heart valves.[id number] 13:54:00 Test Item Value Reference Range Interpretation Comments PARTIAL THROMBOPLASTIN TIME 33.4 seconds 22.5-36.0 [facility] (test code = 760) POCT-GLUCOSE [id number] 12:17:00 Test Item Value Reference Range Interpretation Comments POC-GLUCOSE METER 211 mg/dL 70-110 H TESTED AT [place] [address] ([facility]) (test code = [facility] 1538) [address] POCT-GLUCOSE [id number] 08:22:00 Test Item Value Reference Range Interpretation Comments POC-GLUCOSE METER 221 mg/dL 70-110 H TESTED AT [place] [address] ([facility]) (test code = [facility] 1538) [address] BASIC METABOLIC [id number] 07:54:00 Test Item Value Reference Range Interpretation [...] S NOT APPLICABLE FOR DIALYSIS PATIEN TS. [id number] 07:52:00 Test Item Value Reference Range Interpretation Comments MAGNESIUM (BEAKER) (test code = 2.8 mg/dL 1.6-2.6 H 627) CBC W/PLT COUNT & AUTO [id number] 07:11:00 Test Item Value Reference Range Interpretation [...] 417) IMMATURE GRANULOCYTES-RELATIVE 0 % 0-1 PERCENT (AKER) (test code = 2801) POCT-GLUCOSE [id number] 22:32:00 Test Item Value Reference Range Interpretation Comments POC-GLUCOSE METER 130 mg/dL 70-110 H TESTED AT [place] [address] ([facility]) (test code = [employer] [facility] 1538) [address] POCT-GLUCOSE [id number] 17:40:00 Test Item Value Reference Range Interpretation Comments POC-GLUCOSE METER 72 mg/dL 70-110 TESTED AT [place] [address] ([facility]) (test code = [employer] [facility] [address] 1538) RAD, CHEST, 1 VIEW, NON [id number] 17:08:00Reason for exam:->sternotomy FINAL REPORT CLINICAL INDICATION: [...] MDReport Verified Date/Time: 10/26/2017 17:08:24 Reading Location: [address] Reading Room POCT- GLUCOSE [id number] 12:37:00 Test Item Value Reference Range Interpretation Comments POC-GLUCOSE METER 215 mg/dL 70-110 H TESTED AT [place] [address] ([facility]) (test code = [facility] [employer] [facility] 1538) [address] POCT-GLUCOSE [id number] 07:58:00 Test Item Value Reference Range Interpretation Comments POC-GLUCOSE METER 180 mg/dL 70-[address] [facility] 6720 (BEAKER) (test code = [place] 1538) [address] BASIC METABOLIC [id number] 06:13:00 Test Item Value Reference Range Interpretation [...] PATIEN TS. CBC W/PLT COUNT & AUTO [id number] 06:02:00 Test Item Value Reference Range Interpretation [...] PERCENT (BEAKER) (test code = 2801) POCT-GLUCOSE [id number] 20:48:00 Test Item Value Reference Range Interpretation Comments POC-GLUCOSE METER 222 mg/dL 70-110 H TESTED AT [place] [address] (BEAKER) (test code = [place] 1538) [address] POCT-GLUCOSE [id number] 18:04:00 Test Item Value Reference Range Interpretation Comments POC-GLUCOSE METER 188 mg/dL 70-110 H TESTED AT [place] [address] (BEAKER) (test code = [place] 1538) [address] POCT-GLUCOSE [id number] 13:33:00 Test Item Value Reference Range Interpretation Comments POC-GLUCOSE METER 196 mg/dL 70-110 H TESTED AT [place] [address] ([facility]) (test code = [place] 1538) [address] BASIC METABOLIC [id number] 12:01:00 Test Item Value Reference Range Interpretation [...] NOT APPLICABLE FOR DIALYSIS PATIEN TS. POCT-GLUCOSE [id number] 11:59:00 Test Item Value Reference Range Interpretation Comments POC-GLUCOSE METER 194 mg/dL 70-[address] [facility] 6720 ([facility]) (test code = [place] 1538) [address] CBC W/PLT COUNT & AUTO [id number] 11:39:00 Test Item Value Reference Range Interpretation [...] = 2801) RAD, CHEST, 1 VIEW, NON [id number] 09:03:00Reason for exam:->S/p CABGShould this be performed [...] MDReport Verified Date/Time: 10/25/2017 09:03:01 Reading Location: [facility] B1 C013X Ortho Consult Reading Room Electronically signed by: BRI LARA M.D. on 018 09:03 AMPOCT-GLUCOSE [id number] 20:54:00 Test Item Value Reference Range Interpretation Comments POC-GLUCOSE METER 183 mg/dL 70-[address] [facility] 6720 ([facility]) (test code = [place] 1538) [address] HEPATITIS B SURFACE [id number] 16:24:00 Test Item Value Reference Range Interpretation Comments HEPATITIS B SURFACE ANTIGEN (2) Nonreactive Nonreactive ([facility]) (test code = 2585) For chronic HD patients, draw HBsAg with each admission then every 30 days.RAD, CHEST, 1 VIEW, NON [id number] 13:31:00Reason for exam:->air leak from chest tubes. [...] Coreyeport Verified Date/Time: 10/24/2017 13:31:11 Reading Location: [facility] Radiology Reading Room GLOBIN AND [id number] 09:47:00 Test Item Value Reference Range Interpretation Comments HEMOGLOBIN (VISHNU) (test code = 9.9 GM/DL 13.7-17.5 L 410) HEMATOCRIT ([facility]) (test code = 31.7 % 40.1-51.0 L 411) POCT-GLUCOSE [id number] 09:38:00 Test Item Value Reference Range Interpretation Comments POC-GLUCOSE METER 200 mg/dL 70-[address] [facility] 6720 (BEAKER) (test code = [place] 1538) [address] POCT-GLUCOSE [id number] 04:46:00 Test Item Value Reference Range Interpretation Comments POC-GLUCOSE METER 129 mg/dL 70-[address] [facility] 6720 (BEAKER) (test code = [place] 1538) [address] POCT-GLUCOSE [id number] 04:46:00 Test Item Value Reference Range Interpretation Comments POC-GLUCOSE METER 172 mg/dL 70-[address] [facility] 6720 (BEAKER) (test code = [place] Cantu [facility] 1538) [address] BASIC METABOLIC [id number] 04:01:00 Test Item Value Reference Range Interpretation [...] S NOT APPLICABLE FOR DIALYSIS PATIEN TS. [id number] 03:58:00 Test Item Value Reference Range Interpretation Comments PHOSPHORUS (BEAKER) (test code = 5.3 mg/dL 2.3-4.7 H 604) [id number] 03:58:00 Test Item Value Reference Range Interpretation Comments MAGNESIUM (BEAKER) (test code = 3.2 mg/dL 1.6-2.6 H 627) CALCIUM, [id number] 03:56:00 Test Item Value Reference Range Interpretation Comments CALCIUM IONIZED (BEAKER) (test 1.17 mmol/L 1.12-1.27 code = 698) PH, BLOOD (BEAKER) (test code = 7.29 1810) RAD, CHEST, 1 VIEW, NON [id number] 03:56:00while patient is intubated or has chest [...] MDReport Verified Date/Time: 10/24/2017 03:56:43 Reading Location: [address] Reading Room LACTIC ACID, ARTERIAL, WHOLE [id number] 03:54:00 Test Item Value Reference Range Interpretation Comments LACTATE BLOOD ARTERIAL (2) 0.7 mmol/L 0.5-2.2 (BEAKER) (test code = 2874) Effective 10/18/2015: Units/Reference Range ChangeNew: 0.5-2.2 mmol/L Previous: 5- 20 mg/dLOXYGEN SATURATION, [id number] 03:53:00 Test Item Value Reference Range Interpretation Comments O2 SATURATION (MEASURED) (BEAKER) 72.5 % (test code = 1455) CBC W/PLT COUNT & AUTO [id number] 03:44:00 Test Item Value Reference Range Interpretation [...] PERCENT (BEAKER) (test code = 2801) POCT-GLUCOSE [id number] 22:48:00 Test Item Value Reference Range Interpretation Comments POC-GLUCOSE METER 162 mg/dL 70-[address] [facility] 6720 (BEAKER) (test code = [place] 1538) [address] POCT-GLUCOSE [id number] 22:48:00 Test Item Value Reference Range Interpretation Comments POC-GLUCOSE METER 163 mg/dL 70-110 H TESTED AT [place] [address] ([facility] (test code = [place] 1538) [address] POCT-GLUCOSE [id number] 22:48:00 Test Item Value Reference Range Interpretation Comments POC-GLUCOSE METER 113 mg/dL 70-110 H TESTED AT [place] [address] (BEAKER) (test code = [place] 1538) [address] POCT-GLUCOSE [id number] 22:48:00 Test Item Value Reference Range Interpretation Comments POC-GLUCOSE METER 83 mg/dL 70-110 TESTED AT [place] [address] (BEAKER) (test code = [place] [address] 1538) POCT-GLUCOSE [id number] 22:48:00 Test Item Value Reference Range Interpretation Comments POC-GLUCOSE METER 114 mg/dL 70-110 H TESTED AT [place] [address] ([facility] (test code = [place] 1538) [address] BLOOD GAS, [id number] 17:05:00 Test Item Value Reference Range Interpretation [...] (test code = 1819) 40.0 % POCT-GLUCOSE [id number] 15:59:00 Test Item Value Reference Range Interpretation Comments POC-GLUCOSE METER 197 mg/dL 70-110 H TESTED AT [place] [address] (BEAKER) (test code = [place] 1538) [address] POCT-GLUCOSE [id number] 15:59:00 Test Item Value Reference Range Interpretation Comments POC-GLUCOSE METER 218 mg/dL 70-110 H TESTED AT [place] [address] (BEAKER) (test code = [place] 1538) [address] BLOOD GAS, [id number] 14:11:00 Test Item Value Reference Range Interpretation [...] (test code = 1819) 40.0 % GLUCOSE-STAT [id number] 14:11:00 Test Item Value Reference Range Interpretation Comments GLUCOSE RANDOM (BEAKER) (test code 235 mg/dL 70-110 H = 652) HEMOGLOBIN [id number] 14:09:00 Test Item Value Reference Range Interpretation Comments HEMOGLOBIN A1C (BEAKER) (test code = 7.0 % 4.3-6.1 H 368) BASIC METABOLIC [id number] 12:49:00 Test Item Value Reference Range Interpretation [...] S NOT APPLICABLE FOR DIALYSIS PATIEN TS. [id number] 12:41:00 Test Item Value Reference Range Interpretation Comments POTASSIUM (BEAKER) (test code = 4.1 meq/L 3.5-5.1 379) [id number] 12:41:00 Test Item Value Reference Range Interpretation Comments MAGNESIUM (BEAKER) (test code = 3.2 mg/dL 1.6-2.6 H 627) [id number] 12:41:00 Test Item Value Reference Range Interpretation Comments PHOSPHORUS (BEAKER) (test code = 4.1 mg/dL 2.3-4.7 604) [id number] 12:41:00 Test Item Value Reference Range Interpretation Comments SODIUM (BEAKER) (test code = 381) 138 meq/L 136-145 [id number] 12:41:00 Test Item Value Reference Range Interpretation Comments GLUCOSE RANDOM (BEAKER) (test code 282 mg/dL 70-105 H = 652) RAD, CHEST, 1 VIEW, NON [id number] 12:40:00Reason for exam:->s/p cardiac surgeryShould this be [...] Nunez Verified Date/Time: 10/23/2017 12:40:37 Reading Location: [facility] Radiology Reading Room LACTIC ACID, ARTERIAL, WHOLE [id number] 12:37:00 Test Item Value Reference Range Interpretation Comments LACTATE BLOOD ARTERIAL (2) 1.3 mmol/L 0.5-2.2 (BEAKER) (test code = 2874) Effective 10/18/2015: Units/Reference Range ChangeNew: 0.5-2.2 mmol/L Previous: 5- 20 mg/dLPROTHROMBIN [id number] 12:36:00 Test Item Value Reference Range Interpretation Comments PROTIME (BEAKER) (test code = 16.1 seconds 11.7-14.7 H 759) INR (BEAKER) (test code = 370) 1.3 <=5.9 RECOMMENDED COUMADIN/WARFARIN INR THERAPY RANGESSTANDARD DOSE: 2.0 - 3.0 Includes: PROPHYLAXIS for venous thrombosis, systemic embolization; TREATMENT for venous thrombosis and/or pulmonary embolus.HIGH RISK: Target INR is 2.5-3.5 for patients with mechanical heart valves.[id number] 12:36:00 Test Item Value Reference Range Interpretation Comments FIBRINOGEN LEVEL (BEAKER) (test 206 mg/dl 225-434 L code = 658) [id number] 12:36:00 Test Item Value Reference Range Interpretation Comments PARTIAL THROMBOPLASTIN TIME 32.0 seconds 22.5-36.0 (BEAKER) (test code = 760) BLOOD GAS, [id number] 12:25:00 Test Item Value Reference Range Interpretation [...] (test code = 1819) 60.0 % GLUCOSE-STAT [id number] 12:25:00 Test Item Value Reference Range Interpretation Comments GLUCOSE RANDOM (BEAKER) (test code 243 mg/dL 70-110 H = 652) HGB/HCT (H&H) - STAT [id number] 12:25:00 Test Item Value Reference Range Interpretation Comments HEMOGLOBIN (BEAKER) (test code = 10.9 g/dL 13.0-16.8 L 410) HEMATOCRIT (BEAKER) (test code = 32.0 % 40.0-50.0 L 411) CALCIUM, [id number] 12:25:00 Test Item Value Reference Range Interpretation Comments CALCIUM IONIZED (BEAKER) (test 1.28 mmol/L 1.12-1.27 H code = 698) PH, BLOOD (BEAKER) (test code = 7.33 1810) OXYGEN SATURATION, [id number] 12:25:00 Test Item Value Reference Range Interpretation Comments O2 SATURATION (MEASURED) (BEAKER) 85.6 % (test code = 1455) From distal port of IJ central venous catheterPOTASSIUM-STAT [id number] 12:24:00 Test Item Value Reference Range Interpretation Comments POTASSIUM (BEAKER) (test code = 3.9 meq/L 3.6-5.5 379) CBC W/PLT COUNT & AUTO [id number] 12:24:00 Test Item Value Reference Range Interpretation [...] 0-1 PERCENT (BEAKER) (test code = 2801) [id number] 11:30:00 Test Item Value Reference Range Interpretation Comments ACTIVATED CLOTTING TIME 114 sec TEST ED AT [place] [address] ([facility]) (test code = [place] [address]) [id number] 11:30:00 Test Item Value Reference Range Interpretation Comments ACTIVATED CLOTTING TIME 472 sec TEST ED AT [place] [address] ([facility]) (test code = [place] [address]) [id number] 11:30:00 Test Item Value Reference Range Interpretation Comments ACTIVATED CLOTTING TIME 428 sec TEST ED AT [place] [address] ([facility]) (test code = [place] [address]) [id number] 11:30:00 Test Item Value Reference Range Interpretation Comments ACTIVATED CLOTTING TIME 411 sec TEST ED AT [place] [address] ([facility]) (test code = [place] [address]) [id number] 11:30:00 Test Item Value Reference Range Interpretation Comments ACTIVATED CLOTTING TIME [address] [facility] 67[address] (BEAKER) (test code = [place] [address]) [id number] THROMBOELASTOGRAPH (TEG)2017-10-23 11:07:00 Test Item Value Reference [...] 58.6 MM 55.0-65.0 (test code = 1413) [id number] 10:42:00 Test Item Value Reference Range Interpretation Comments FIBRINOGEN LEVEL (BEAKER) (test 181 mg/dl 225-434 L code = 658) [id number] 10:37:00 Test Item Value Reference Range Interpretation Comments PARTIAL THROMBOPLASTIN TIME 37.9 seconds 22.5-36.0 H (BEAKER) (test code = 760) PROTHROMBIN [id number] 10:36:00 Test Item Value Reference Range Interpretation Comments PROTIME (BEAKER) (test code = 18.7 seconds 11.7-14.7 H 759) INR (BEAKER) (test code = 370) 1.6 <=5.9 RECOMMENDED COUMADIN/WARFARIN INR THERAPY RANGESSTANDARD DOSE: 2.0 - 3.0 Includes: PROPHYLAXIS for venous thrombosis, systemic embolization; TREATMENT for venous thrombosis and/or pulmonary embolus.HIGH RISK: Target INR is 2.5-3.5 for patients with mechanical heart valves.PLATELET [id number] 10:30:00 Test Item Value Reference Range Interpretation Comments PLATELET COUNT (BEAKER) (test code 80 K/CU MM 150-450 L = 756) BLOOD GAS, [id number] 10:21:00 Test Item Value Reference Range Interpretation [...] code = 1819) 100.0 % SODIUM NA-STAT [id number] 10:21:00 Test Item Value Reference Range Interpretation Comments SODIUM (BEAKER) (test code = 381) 133 meq/L 135-148 L POTASSIUM-STAT [id number] 10:21:00 Test Item Value Reference Range Interpretation Comments POTASSIUM (BEAKER) (test code = 5.6 meq/L 3.6-5.5 H 379) GLUCOSE-STAT [id number] 10:21:00 Test Item Value Reference Range Interpretation Comments GLUCOSE RANDOM (BEAKER) (test code 127 mg/dL 70-110 H = 652) HGB/HCT (H&H) - STAT [id number] 10:21:00 Test Item Value Reference Range Interpretation Comments HEMOGLOBIN (BEAKER) (test code = 8.7 g/dL 13.0-16.8 L 410) HEMATOCRIT (BEAKER) (test code = 26.0 % 40.0-50.0 L 411) CALCIUM, [id number] 10:21:00 Test Item Value Reference Range Interpretation Comments CALCIUM IONIZED (BEAKER) (test 1.05 mmol/L 1.12-1.27 L code = 698) PH, BLOOD (BEAKER) (test code = 7.34 1810) POTASSIUM-STAT [id number] 09:58:00 Test Item Value Reference Range Interpretation Comments POTASSIUM (BEAKER) 6.0 meq/L 3.6-5.5 HH SPECIMEN NOT HEMOLYZED (test code = 379) CALCIUM, [id number] 09:57:00 Test Item Value Reference Range Interpretation Comments CALCIUM IONIZED (BEAKER) (test 0.79 mmol/L 1.12-1.27 LL code = 698) PH, BLOOD (BEAKER) (test code = 7.30 1810) BLOOD GAS, [id number] 09:53:00 Test Item Value Reference Range Interpretation [...] code = 1819) 70.0 % SODIUM NA-STAT [id number] 09:53:00 Test Item Value Reference Range Interpretation Comments SODIUM (BEAKER) (test code = 381) 132 meq/L 135-148 L GLUCOSE-STAT [id number] 09:53:00 Test Item Value Reference Range Interpretation Comments GLUCOSE RANDOM (BEAKER) (test code 121 mg/dL 70-110 H = 652) HGB/HCT (H&H) - STAT [id number] 09:53:00 Test Item Value Reference Range Interpretation Comments HEMOGLOBIN (BEAKER) (test code = 7.1 g/dL 13.0-16.8 L 410) HEMATOCRIT (BEAKER) (test code = 21.0 % 40.0-50.0 L 411) SODIUM NA-STAT [id number] 09:39:00 Test Item Value Reference Range Interpretation Comments SODIUM (BEAKER) (test code = 381) 136 meq/L 135-148 POTASSIUM-STAT [id number] 09:39:00 Test Item Value Reference Range Interpretation Comments POTASSIUM (BEAKER) (test code = 5.5 meq/L 3.6-5.5 379) BLOOD GAS, [id number] 09:39:00 Test Item Value Reference Range Interpretation [...] (test code = 1819) 60.0 % GLUCOSE-STAT [id number] 09:39:00 Test Item Value Reference Range Interpretation Comments GLUCOSE RANDOM (BEAKER) (test code 122 mg/dL 70-110 H = 652) HGB/HCT (H&H) - STAT [id number] 09:39:00 Test Item Value Reference Range Interpretation Comments HEMOGLOBIN (BEAKER) (test code = 6.4 g/dL 13.0-16.8 L 410) HEMATOCRIT (BEAKER) (test code = 19.0 % 40.0-50.0 L 411) SODIUM NA-STAT [id number] 07:56:00 Test Item Value Reference Range Interpretation Comments SODIUM (BEAKER) (test code = 381) 140 meq/L 135-148 POTASSIUM-STAT [id number] 07:56:00 Test Item Value Reference Range Interpretation Comments POTASSIUM (BEAKER) (test code = 4.2 meq/L 3.6-5.5 379) BLOOD GAS, [id number] 07:56:00 Test Item Value Reference Range Interpretation [...] (test code = 1819) 100.0 % GLUCOSE-STAT [id number] 07:56:00 Test Item Value Reference Range Interpretation Comments GLUCOSE RANDOM (BEAKER) (test code 137 mg/dL 70-110 H = 652) HGB/HCT (H&H) - STAT [id number] 07:56:00 Test Item Value Reference Range Interpretation Comments HEMOGLOBIN (BEAKER) (test code = 10.5 g/dL 13.0-16.8 L 410) HEMATOCRIT (BEAKER) (test code = 31.0 % 40.0-50.0 L 411) GLUCOSE-STAT [id number] 06:33:00 Test Item Value Reference Range Interpretation Comments GLUCOSE RANDOM (BEAKER) (test code 122 mg/dL 70-110 H = 652) HGB/HCT (H&H) - STAT [id number] 06:33:00 Test Item Value Reference Range Interpretation Comments HEMOGLOBIN (BEAKER) (test code = 11.4 g/dL 13.0-16.8 L 410) HEMATOCRIT (BEAKER) (test code = 34.0 % 40.0-50.0 L 411) POTASSIUM-STAT [id number] 06:32:00 Test Item Value Reference Range Interpretation Comments POTASSIUM (BEAKER) (test code = 4.2 meq/L 3.6-5.5 379) RAD, CHEST, 2 [id number] 11:29:00Reason for Exam:->Pre-OpFINAL REPORT Chest 2 views 10/21/2017 11:28 AM CLINICAL HISTORY: Pre-Op, chest pain COMPARISON: 08/07/2017 FINDINGS: The lungs are clear. Cardiomediastinal contours are within normal limits. The central pulmonary vasculature is not engorged. A right hemodialysis catheter is present.The visualized skeleton is intact. IMPRESSION: No acute radiographic abnormalities. Signed: Vira Nunezeport Verified Date/Time: 10/21/2017 11:29:02 Reading Location: [facility] Reading Room COMPREHENSIVE METABOLIC [id number] 11:23:00 Test Item Value Reference Range Interpretation [...] (test 108 U/L 29-200 code = 380) [id number] 11:09:00 Test Item Value Reference Range Interpretation Comments FIBRINOGEN LEVEL (BEAKER) (test 337 mg/dl 225-434 code = 658) [id number] 11:09:00 Test Item Value Reference Range Interpretation [...] mechanical heart valves.CBC W/PLT COUNT & AUTO [id number] 10:47:00 Test Item Value Reference Range Interpretation [...] (BEAKER) (test code = 2801) BASIC METABOLIC [id number] 12:45:00 Test Item Value Reference Range Interpretation [...] S NOT APPLICABLE FOR DIALYSIS PATIEN TS. [id number] 12:24:00 Test Item Value Reference Range Interpretation [...] mechanical heart valves.CBC W/PLT COUNT & AUTO [id number] 12:06:00 Test Item Value Reference Range Interpretation [...] PERCENT (BEAKER) (test code = 2801) HEMOGLOBIN [id number] 14:41:00 Test Item Value Reference Range Interpretation Comments HEMOGLOBIN A1C (BEAKER) (test code = 7.0 % 4.3-6.1 H 368) HIV-1 ANTIGEN WITH HIV-1/2 [id number] 10:23:00 Test Item Value Reference Range Interpretation Comments HIV-1 ANTIGEN WITH HIV 1\\T\\2 Nonreactive Nonreactive ANTIBODY (2) (BEAKER) (test code = 2586) FL, CYSTOGRAM, CINE OR VIDEO, [id number] 10:05:00Reason for Exam:- >esrd; eval for renal [...] Radiation dose (Ka,r): 33.3 mGy Signed: Onel Duarte MDReport Verified Date/Time: 08/07/2017 10:05:30 Reading Location: [address] Radiology Reading Room U/S, ABDOMINAL, COMPLETE [...] renal failure. Otherwise unremarkable study. Signed: Onel Duarte MDRepandrés Verified Date/Time: 08/07/2017 09:58:47 Reading Location: [address] Radiology Reading Room [id number] 09:20:00 Test Item Value Reference Range Interpretation Comments PROSTATE SPECIFIC ANTIGEN (BEAKER) 6.7 ng/mL 0.0-4.0 H (test code = 844) RAD, CHEST, 2 [id number] 09:11:00Reason for Exam:->esrd; eval for renal txpFINAL REPORT CHEST PA AND LATERAL History provided: Evaluation for renal transplantation Comparison studies: None Heart size normal. Lungs are mildly hyperexpanded but clear, and vascularity normal. Numerous right healed rib fractures. IMPRESSION: Clear chest. Signed: Onel DuarteMDReport Verified Date/Time: 08/07/2017 09:11:05 Reading Location: [address] Radiology Reading Room LIPID [id number] 08:38:00 Test Item Value Reference Range Interpretation Comments TRIGLYCERIDES (BEAKER) (test code = 179 mg/dL 540) CHOLESTEROL (BEAKER) (test code = 225 mg/dL 631) HDL CHOLESTEROL (BEAKER) (test code 51 mg/dL = 976) LDL CHOLESTEROL CALCULATED (AKER) 138 mg/dL (test code = 633) Triglyceride [...] skin code = 1095) markos CYTOMEGALOVIRUS ANTIBODY, [id number] 07:58:00 Test Item Value Reference Range Interpretation Comments CYTOMEGALOVIRUS IGG ANTIBODY Positive (Overflow CafeAKER) (test code = 790) CYTOMEGALOVIRUS ANTIBODY, [id number] 07:58:00 Test Item Value Reference Range Interpretation Comments CYTOMEGALOVIRUS IGM ANTIBODY Positive (Overflow CafeAKER) (test code = 816) EBV-VCA ANTIBODY, [id number] 07:58:00 Test Item Value Reference Range Interpretation Comments DONTAE-ESPINOSA VCA IGG (BEAKER) (test Positive code = 983) EBV-VCA ANTIBODY, [id number] 07:58:00 Test Item Value Reference Range Interpretation Comments DONTAE-ESPINOSA VCA IGM (BEAKER) (test Negative code = 984) VARICELLA ZOSTER ANTIBODY, [id number] 07:32:00 Test Item Value Reference Range Interpretation Comments VARICELLA ZOSTER IGG (AL) (BEAKER) 3.5 Al (test code = 3197) VARICELLA ZOSTER RESULT INTERPRETATIONS: <=0.8 Al Nonreactive: Presumed non- immune to VZV 0.9-1.0Al Equivocal >=1.1 Al Reactive: Presumed immune to VZV [id number] 05:27:00 Test Item Value Reference Range Interpretation Comments RPR SCREEN (BEAKER) (test code = Nonreactive Nonreactive 420) HEMOGLOBIN [id number] 14:09:00 Test Item Value Reference Range Interpretation Comments HEMOGLOBIN A1C (BEAKER) (test code = 7.0 % 4.3-6.1 H 368) COMPREHENSIVE METABOLIC [id number] 11:41:00 Test Item Value Reference Range Interpretation [...] NOT APPLICABLE FOR DIALYSIS PATIEN TS. URIC [id number] 11:32:00 Test Item Value Reference Range Interpretation Comments URIC ACID (BEAKER) (test code = 3.5 mg/dL 2.6-7.2 773) [id number] 11:32:00 Test Item Value Reference Range Interpretation Comments PHOSPHORUS (BEAKER) (test code = 4.0 mg/dL 2.3-4.7 604) GAMMA GLUTAMYL TRANSFERASE (GGT)[id number] 11:32:00 Test Item Value Reference Range Interpretation Comments GAMMA GLUTAMYL TRANSFERASE (BEAKER) 27 U/L 9-64 (test code = 364) LACTATE DEHYDROGENASE (LDH)2017-05-13 11:32:00 Test Item Value Reference Range Interpretation Comments LACTATE DEHYDROGENASE (BEAKER) (test 229 U/L 125-220 H code = 635) [id number] 10:15:00 Test Item Value Reference Range Interpretation Comments PROSTATE SPECIFIC ANTIGEN (BEAKER) 5.7 ng/mL 0.0-4.0 H (test code = 844) HEPATITIS B SURFACE [id number] 10:15:00 Test Item Value Reference Range Interpretation Comments HEPATITIS B SURFACE ANTIGEN (2) Nonreactive Nonreactive (BEAKER) (test code = 2585) HEPATITIS B SURFACE [id number] 10:15:00 Test Item Value Reference Range Interpretation Comments HEPATITIS B SURFACE ANTIBODY 195.7 mIU/mL <8.0 H (BEAKER) (test code = 647) HEPATITIS B CORE ANTIBODY, [id number] 10:15:00 Test Item Value Reference Range Interpretation Comments HEPATITIS B CORE IGM ANTIBODY Nonreactive Nonreactive (BEAKER) (test code = 645) HEPATITIS C [id number] 10:15:00 Test Item Value Reference Range Interpretation Comments HEPATITIS C ANTIBODY (BEAKER) Nonreactive Nonreactive (test code = 367) URINALYSIS W/ [id number] 10:12:00 Test Item Value Reference Range Interpretation [...] 514) SOURCE(BEAKER) (test code = 2795) PTH, [id number] 09:29:00 Test Item Value Reference Range Interpretation Comments PARATHYROID HORMONE INTACT 189.9 pg/mL 8.5-72.5 H (BEAKER) (test code = 577) [id number] 09:09:00 Test Item Value Reference Range Interpretation [...] mechanical heart valves.CBC W/PLT COUNT & AUTO [id number] 08:58:00 Test Item Value Reference Range Interpretation [...] % 0-1 PERCENT (BEAKER) (test code = 0201)
[2022-06-09] MEDS ORDERED: LIDOCAINE 1% W/EPI 1:100,000 30 ML VIAL ONE (15:47)
[2022-06-09 17:03] LABS: Absolute Lymphocytes (CBC) 1.5 K/uL (0.7-4.9); Hematocrit 28.4 % (39.6-49.0); Lymphocytes % 24.6 % (15.3-44.8); MCV 83.6 fL (80-100); MPV 9.7 fL (7.6-11.3); RBC Red Blood Cell Count 3.39 M/uL (4.33-5.43)
[2022-06-09 17:06] LABS: Protime INR 1.25
[2022-06-09 17:20] LABS: Magnesium 2.7 mg/dL (1.6-2.4); Potassium 3.6 mmol/L (3.5-5.1)
--- NOTE | 2022-06-09 17:48 | EDPHYS ---
Physician Documentation [facility] Name: Russ Corona Age: 71 yrs Sex: Male : 1950 Arrival Date: 06/09/2022 Time: 14:52 Bed 14 Private MD: ED Physician Ubaldo Pisano HPI: 06/09 15:20 This 71 yrs old Black Male presents to ER via EMS with complaints of Medical Complaint cp - AV GRAFT BLEED. 15:20 The patient or guardian complains of bleeding from AV fistula. cp 15:20 The complaints affect the left bicep. Onset: The symptoms/episode began/occurred 2 cp day(s) ago. Treatment prior to arrival includes: pressure dressing. Associated signs and symptoms: The patient has no apparent associated signs or symptoms. Patient reports completing dialysis Friday and since AV fistula has continued to bleed. Historical: - Home Meds: 14:57 Aspirin EC Oral [Active]; lisinopril Oral [Active]; metoprolol tartrate 100 mg Oral eh3 tr24 1 tab once daily [Active]; Nitroglycerin SL [Active]; rosuvastatin Oral [Active]; terazosin Oral [Active]; - PMHx: 14:57 Diabetes - NIDDM; Dialysis; M,W,F; Enlarged Heart; High Cholesterol; Hypertension; eh3 - Immunization history:: Adult Immunizations up to date. - Social history:: Smoking status: unknown. ROS: 15:25 Constitutional: Negative for body aches, chills, fever, poor PO intake. cp 15:25 Eyes: Negative for injury, pain, redness, and discharge. cp 15:25 Cardiovascular: Negative for chest pain, palpitations. 15:25 Respiratory: Negative for cough, shortness of breath, wheezing. 15:25 Abdomen/GI: Negative for abdominal pain, nausea, vomiting, and diarrhea. 15:25 MS/extremity: Positive for of the left bicep, bleeding AV fistula, Negative for pain, paresthesias. 15:25 Neuro: Negative for dizziness, headache, syncope, weakness. 15:25 All other systems are negative. Exam: 15:30 Constitutional: The patient appears in no acute distress, alert, awake, comfortable, cp non-toxic, well developed, well nourished. 15:30 Head/Face: Normocephalic, atraumatic. cp 15:30 Chest/axilla: Inspection: normal. 15:30 Cardiovascular: Rate: normal, Rhythm: regular. 15:30 Respiratory: the patient does not display signs of respiratory distress, Respirations: normal, no use of accessory muscles, no retractions, labored breathing, is not present. 15:30 Abdomen/GI: Inspection: abdomen appears normal, Palpation: abdomen is soft and non-tender, in all quadrants. 15:30 Musculoskeletal/extremity: Perfusion: the extremity is normally perfused throughout, AV fistula noted left biceps area with palpable thrill, mild bleeding observed anterior to graft. 15:30 Skin: cellulitis, is not appreciated. 15:30 Neuro: Orientation: to person, place \T\ time. Mentation: is normal. 17:02 ECG was reviewed by the Attending Physician. Vital Signs: 14:55 BP 116 / 60; Pulse 61; Resp 18; Pulse Ox 100% on R/A; eh3 16:00 BP 123 / 59; Pulse 65; Resp 18; Pulse Ox 99% on R/A; eh3 17:00 BP 120 / 52; Pulse 64; Resp 18; Pulse Ox 100% on R/A; eh3 Procedures: 17:30 Left Biceps area cleaned with topical Betadine. Area injected with 3 ccs of 1% cp lidocaine with epi.Figure eight stitch times 1 placed superior to graft to control bleeding. Patient tolerated well. MDM: 15:14 Patient medically screened. cp 17:46 Data reviewed: vital signs, nurses notes, lab test result(s), EKG. cp 17:46 Differential diagnosis: anemia, electrolyte abnormality. Test interpretation: by ED cp physician or midlevel provider: ECG. Counseling: I had a detailed discussion with the patient and/or guardian regarding: the historical points, exam findings, and any diagnostic results supporting the discharge/admit diagnosis, lab results, the need for outpatient follow up, nephrology, to return to the emergency department if symptoms worsen or persist or if there are any questions or concerns that arise at home. Response to treatment: the patient's symptoms have markedly improved after treatment. 06/09 15:14 Order name: Basic Metabolic Panel; Complete Time: 17:25 cp 06/09 17:25 Interpretation: Normal except: NA 135; CL 94; CO2 35; GLUC 112; BUN 41; CRE 6.21; GFR cp 9; CA 10.2. 06/09 15:14 Order name: CBC with Diff; Complete Time: 17:25 cp 06/09 17:25 Interpretation: Normal except: RBC 3.39; HGB 8.9; HCT 28.4; MCH 26.4; MCHC 31.5; RDW cp 18.8; EOSINOPHIL % 5.1; BASO% 1.4. 06/09 15:14 Order name: Magnesium; Complete Time: 17:25 cp 06/09 17:26 Interpretation: Abnormal: MG 2.7. cp 06/09 15:14 Order name: PT-INR; Complete Time: 17:25 cp 06/09 17:26 Interpretation: Reviewed. 06/09 15:14 Order name: EKG; Complete Time: 15:15 cp 06/09 15:14 Order name: Cardiac monitoring; Complete Time: 15:42 cp 06/09 15:14 Order name: EKG - Nurse/Tech; Complete Time: 17:40 cp 06/09 15:14 Order name: IV Saline Lock; Complete Time: 19:38 cp 06/09 15:14 Order name: Labs collected and sent; Complete Time: 16:53 cp 06/09 15:14 Order name: O2 Per Protocol; Complete Time: 15:42 cp 06/09 15:14 Order name: O2 Sat Monitoring; Complete Time: 15:42 cp EC:02 Rate is 64 beats/min. Rhythm is regular. IA interval is normal. QRS interval is cp prolonged at 144 msec. QT interval is normal. T waves are Inverted in leads aVR, V2, V3. Interpreted by me. Reviewed by me. Administered Medications: 17:15 Drug: Lidocaine-Epinephrine -1%: (1:100,000) 5 ml {Note: administered by yaneli De La Fuente PA.} Volume: 20 ml; Route: Infiltration; 18:00 Follow up: Response: No adverse reaction 3 Disposition Summary: 06/09/22 17:47 Discharge Ordered Location: Home cp Problem: new cp Symptoms: have improved cp Condition: Stable cp Diagnosis - Other complication of vascular dialysis catheter, initial encounter cp Followup: cp - With: Private Physician - When: 1 - 2 days - Reason: Recheck today's complaints Forms: - Medication Reconciliation Form cp - Thank You Letter cp - Antibiotic Education cp - Prescription Opioid Use cp Signatures: Dispatcher [employer] EDMS Page, Ubaldo, PA PA cp Marcus, Sandra, RN RN eh3
--- NOTE | 2022-06-09 17:48 | ER ---
Nurse's Notes [facility] Name: Russ Corona Age: 71 yrs Sex: Male : 1950 Arrival Date: 06/09/2022 Time: 14:52 Bed 14 Private MD: Diagnosis: Other complication of vascular dialysis catheter, initial encounter Presentation: 06/09 14:55 Chief complaint: EMS states: Left side AV graft has been bleeding for several days. 3 Bleeding is controlled with pressure dressing. Pt lives at [facility]. BGL 181. Coronavirus screen: Vaccine status: Patient reports receiving the 2nd dose of the covid vaccine. Ebola Screen: No symptoms or risks identified at this time. Initial Sepsis Screen: Does the patient meet any 2 criteria? No. Patient's initial sepsis screen is negative. Does the patient have a suspected source of infection? No. Patient's initial sepsis screen is negative. Risk Assessment: Do you want to hurt yourself or someone else? Patient reports no desire to harm self or others. Onset of symptoms was June 09, 2022. 14:55 Method Of Arrival: EMS: [facility] 14:55 Acuity: ELLI 3 eh3 Triage Assessment: 14:57 General: Appears in no apparent distress. comfortable, Behavior is calm, cooperative, eh3 appropriate for age. Pain: Denies pain. Neuro: Level of Consciousness is awake, alert, obeys commands, Oriented to person, place, time, situation. Cardiovascular: Capillary refill < 3 seconds Patient's skin is warm and dry. Respiratory: Airway is patent Respiratory effort is even, unlabored, Respiratory pattern is regular, symmetrical. GI: No signs and/or symptoms were reported involving the gastrointestinal system. Abdomen is round non-distended. : No signs and/or symptoms were reported regarding the genitourinary system. Derm: No signs and/or symptoms reported regarding the dermatologic system. Musculoskeletal: No signs and/or symptoms reported regarding the musculoskeletal system. Circulation, motion, and sensation intact. Range of motion: intact in all extremities. Historical: - Home Meds: 14:57 Aspirin EC Oral [Active]; lisinopril Oral [Active]; metoprolol tartrate 100 mg Oral 3 tr24 1 tab once daily [Active]; Nitroglycerin SL [Active]; rosuvastatin Oral [Active]; terazosin Oral [Active]; - PMHx: 14:57 Diabetes - NIDDM; Dialysis; M,W,F; Enlarged Heart; High Cholesterol; Hypertension; eh3 - Immunization history:: Adult Immunizations up to date. - Social history:: Smoking status: unknown. Screenin:59 [facility] ED Fall Risk Assessment (Adult) History of falling in the last 3 months, eh3 including since admission No falls in past 3 months (0 pts) Confusion or Disorientation No (0 pts) Intoxicated or Sedated No (0 pts) Impaired Gait Yes (1 pt) Mobility Assist Device Used Yes (1 pt) Altered Elimination No (0 pt) Score/Fall Risk Level 0 - 2 = Low Risk Oriented to surroundings, Maintained a safe environment, Educated pt \T\ family on fall prevention, incl call for assistance when getting out of bed, Assessed \T\ reinforced patient's understanding of fall precautions, Hourly rounding (assess needs \T\ fall precautionary measures) done. Abuse screen: Denies threats or abuse. Denies injuries from another. Nutritional screening: No deficits noted. Tuberculosis screening: No symptoms or risk factors identified. Assessment: 14:59 Reassessment: No changes from previously documented assessment. See triage assessment. eh3 16:00 Reassessment: Patient appears in no apparent distress at this time. Patient and/or 3 family updated on plan of care and expected duration. Pain level reassessed. Patient is alert, oriented x 3, equal unlabored respirations, skin warm/dry/pink. 17:00 Reassessment: Patient appears in no apparent distress at this time. Patient and/or 3 family updated on plan of care and expected duration. Pain level reassessed. Patient is alert, oriented x 3, equal unlabored respirations, skin warm/dry/pink. 18:00 Reassessment: Patient appears in no apparent distress at this time. Patient and/or eh3 family updated on plan of care and expected duration. Pain level reassessed. Patient is alert, oriented x 3, equal unlabored respirations, skin warm/dry/pink. Vital Signs: 14:55 BP 116 / 60; Pulse 61; Resp 18; Pulse Ox 100% on R/A; eh3 16:00 BP 123 / 59; Pulse 65; Resp 18; Pulse Ox 99% on R/A; eh3 17:00 BP 120 / 52; Pulse 64; Resp 18; Pulse Ox 100% on R/A; eh3 ED Course: 14:52 Patient arrived in ED. 3 14:57 Triage completed. 3 14:57 Arm band placed on. 3 14:59 Patient has correct armband on for positive identification. Bed in low position. Call [facility] light in reach. Side rails up X2. Client placed on continuous cardiac and pulse oximetry monitoring. NIBP monitoring applied. Door closed. Noise minimized. Warm blanket given. 15:08 Sandra Marcus, RN is Primary Nurse. [facility] 15:14 Ubaldo Mann PA is PHCP. cp 15:14 Ubaldo Pisano MD is Attending Physician. cp 16:49 Initial lab(s) drawn, by hi, sent to lab. [facility] 16:49 Missed attempt(s): 22 gauge in right hand. Bleeding controlled, band aid applied, aa5 catheter tip intact. 18:00 Diet: Patient given snack. Patient given water. Tolerated well. 3 Administered Medications: 17:15 Drug: Lidocaine-Epinephrine -1%: (1:100,000) 5 ml {Note: administered by yaneli De La Fuente.} Volume: 20 ml; Route: Infiltration; 18:00 Follow up: Response: No adverse reaction [facility] Outcome: 17:47 Discharge ordered by . cp 19:00 Patient left the ED. mm9 Signatures: Jillian Kaur, RN RN Ubaldo Michaels PA PA cp Hall, Erin, RN RN eh3 Martinez, Maria mm9 Corrections: (The following items were deleted from the chart) 15:01 14:55 Chief complaint: EMS states: Left side AV graft has been bleeding for several [facility] days. Bleeding is controlled with pressure dressing. Pt lives at [place] [id number]
[2022-06-09 19:14] VITALS: BP 116/60; O2SAT 100
--- NOTE | 2022-06-10 16:06 | EKG ---
Test Date: 2022-06-09 Test Time: 16:55:56 Pet Care Associate: PETE MEASUREMENT RESULTS: Intervals: Rate: 65 ME: 156 QRSD: 146 QT: 460 QTc: 478 [place]: P: 72 ME: 156 QRS: 253 T: 64 INTERPRETIVE STATEMENTS: Sinus rhythm with premature atrial complexes Right bundle branch block Abnormal ECG Compared to ECG 12/14/2016 07:04:16 Atrial premature complex(es) now present Right bundle-branch block now present Left ventricular hypertrophy no longer present T-wave abnormality no longer present Possible ischemia no longer present Prolonged QT interval no longer present Electronically Signed On 06-10-22 16:04:13 [employer]ICAL PROGRAM[employer] by Denzel Delong
== END 2022-06-09 19:00 | disposition home or self-care (01) ==
LOC: ER 14:42
DX: T82.49XA Other complication of vascular dialysis catheter, initial encounter (principal); I10 Essential (primary) hypertension; E11.9 Type 2 diabetes mellitus without complications; Z99.2 Dependence on renal dialysis; Z79.82 Long term (current) use of aspirin
CPT/HCPCS: 36415; 80048; 82947; 83735; 85025; 85610; 93005; 99283

== ENCOUNTER 2022-06-28 10:24 | Emergency (ER) | payer OTHER ==
[2022-06-28] MEDS ORDERED: HYDROCODONE/APAP 5/325 MG TAB ONE (10:48)
--- OUTSIDE RECORDS SUMMARY | 2022-06-28 11:04 | XMS REPORT | Continuity of Care Document ---
:[address] [facility] t Address [address] [place]. [address] [place] [id number] Care Team Providers Name Role Phone Larisa Farley Primary Care Physician DELFINO GRANADO Attending Clinician Unavailable DELFINO GRANADO Attending Clinician Unavailable [id number] Attending Clinician Unavailable PRETTY GUILLEN Attending Clinician Unavailable Brando LANTIGUA, Lucille Arteaga Attending Clinician Doctor Unassigned, [place] Attending Clinician Unavailable Precious Crump Attending Clinician Tyrell Salvador MD Attending Clinician MICHELLE BLANCO Attending Clinician Unavailable Michelle Livingston Attending Clinician Bran VASCULAR SURGEONKatie DILLON Attending Clinician PRECIOUS SALDAÑA Attending Clinician Unavailable Wanda Elias RN Attending Clinician Unavailable Kimberly Menon DO Attending Clinician Brad Granger DO Attending Clinician Chuck Cohn DO Attending Clinician Yeni Dang DO Attending Clinician EFREM MCNAIR Attending Clinician Unavailable Efrem Mcnair DO Attending Clinician Melissa Archer MD Attending Clinician Po, [facility] Main Attending Clinician Unavailable Pretty Guillen MD Attending Clinician 2, [facility] Attending Clinician Unavailable DEANNA PAZ Attending Clinician Unavailable Deanna Rodrigues Attending Clinician [facility] Attending Clinician Unavailable SHANNAN RAHMAN Attending Clinician Unavailable Shannan Rahman MD Attending Clinician Lab, Ang - Db Attending Clinician Unavailable MELISSA ARCHER Attending Clinician Unavailable VICTOR MANUEL JAMESONUWLEXIE Wynn Attending Clinician Unavailable RITESH SUTTON Attending Clinician Unavailable MYRTLE PATRICK Attending Clinician Unavailable USAMA ZALDIVAR Attending Clinician Unavailable LEO GARCIA Attending Clinician Unavailable VITALY SIMONS Attending Clinician Unavailable JOSE L TOVAR Attending Clinician Unavailable SUSIE JORGE Attending Clinician Unavailable BRAD ANGUIANO Attending Clinician Unavailable CHERISE GALEANA Attending Clinician Unavailable JENNIFER SORTO Attending Clinician Unavailable BLAZE BALBUENA Attending Clinician Unavailable DELFINO GRANADO Admitting Clinician Unavailable [id number] Admitting Clinician Unavailable KIMBERLY MENON Admitting Clinician Unavailable EFREM MCNAIR Admitting Clinician Unavailable PRETTY GUILLEN K.HMai Admitting Clinician Unavailable BOBBY AVENDANO Admitting Clinician Unavailable SHANNAN RAHMAN Admitting Clinician Unavailable Shannan Rahman MD Admitting Clinician LEO GARCIA Admitting Clinician Unavailable BRAD ANGUIANO Admitting Clinician Unavailable CHERISE GALEANA Admitting Clinician Unavailable BLAZE BALBUENA Admitting Clinician Unavailable Payers Payer Name Policy Type Policy Number Effective Date Expiration Date S sukumar GARCIA 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 2-29 [place] am[place] amputation 00 Me dical stump stump Branch History of History of Disease Active 2021-06 U nivers right right 1-17 [place]y of below knee [place] am[place] amputation 00 Me dical Branch Open wound Open wound Disease Active 2021-06 U nivers of toe, of toe, 0-20 ity of initial initial 00:00: [place] encounter encounter 00 [facility] Branch Dialysis Dialysis Disease Active Overview: Un bruno AV fistula AV fistula 2-15 Formattin ity of malfunctio malfunctio 00:00: g of this [place] n, initial n, initial 00 note Me dical encounter encounter might be Br anch different from the original. Added automatic ally from request for surgery [id number] AVF AVF Disease Active Univers (arteriove (arteriove 9 it y of nous nous 00:00: [place] fistula) fistula) 00 Medica l Branch Arterioven Arterioven Disease Active Overview : Univers ous ous 9 Formattin ity of fistula fistula 00:00: g of this [place] occlusion, occlusion, 00 note Me dical initial initial might be Branch encounter encounter different from the original. 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 00:00: [place] with ESRD with ESRD 00 [facility] tom (end-stage (end-stage Br anch renal renal disease) disease) Essential Essential Disease Active Uni vers hypertensi hypertensi 4-02 it y of on on 00:00: [place] [facility] Cardiomyop Cardiomyop Disease Active U nivers athy, athy, 6-06 ity of ischemic ischemic 00:00: [place] 00 Medical Branch S/P CABG x S/P CABG x Disease Active U nivers 3 3 6-06 ity of 00:00: [place] 00 Medical Branch Coronary Coronary Disease Active Overview: Un bruno atheroscle atheroscle 6-05 Formattin ity of rosis rosis 00:00: g of this [place] 00 note Medical might be Branch different from the original. Overview: S/p ACB x 3, Dr. Anguiano 10/23/17 - TAVERAS to LAD, SVG to LCx, SVG to ramus S/P CABG x S/P CABG x Disease Active [facility] 3 3 5-10 [facility] 00:00: Medical 00 Center Pre-transp Pre-transp Disease Active [facility] lant lant -17 [facility] evaluation evaluation 00:00: [place] dical for ESRD for ESRD 00 Center (end stage (end stage renal renal disease) disease) Clotted Clotted Disease Active Univers renal renal 2-06 ity of dialysis dialysis 00:00: [place] AV graft, AV graft, 00 Medi tom initial initial Branch encounter encounter ESRD (end ESRD (end Disease Active 2016-06 Overview: Univers stage stage 2-08 Formattin ity of renal renal 00:00: g of this [place] disease) disease) 00 note Medica l on on might be Branch dialysis dialysis different from the original. Added automatic ally from request for surgery [id number] Stroke Stroke Disease Active Overview: [facility] 1[facility]01 [facility] 00:00: g of this Medical 00 note Center might be different from the original. no residual PAD PAD Disease Active Univers (periphera (periphera it y of l artery l artery [place] disease) disease) Medica l Branch Coronary Coronary Disease Active [facility] artery artery [facility] disease disease Medical Center ESRD (end ESRD (end Disease Active [facility] stage stage [facility] renal renal Medical disease) disease) Center Dialysis Dialysis Disease Active [facility] patient patient [facility] Insulin Insulin Disease Active Overview: [facility] dependent dependent Formattin L ukes diabetes diabetes g of this Med ical mellitus mellitus note Center might be different from the original. IDDM Hyperlipid Hyperlipid Disease Active [facility] emia emia [facility] HTN HTN Disease Active [facility] (hypertens (hypertens [facility] ion) ion) Medical Center GERD GERD Disease Active [facility] (gastroeso (gastroeso [facility] phageal phageal Medical reflux reflux Center disease) disease) Anemia Anemia Disease Active [facility] Acute Acute Disease Active [facility] St respirator respirator Sushma kes y y [...] Disease Active [facility] openia openia [facility] Hyperglyce Hyperglyce Disease Active [facility] brien [facility] Allergies, Adverse Reactions, Alerts Allergy Allergy Status Severity Reaction(s) Onset Inactive Treating Comm ents Source Name Type Date Date Clinician NO KNOWN Drug Active Univers ALLERGIE Class ity of S [place] [facility] Family History Family Member Diagnosis Comments Start Date Stop Date Source Natural father Diabetes [facility] Natural mother Diabetes [facility] Social History Social Habit Start Date Stop Date Quantity Comments Source History SDOH Social Unive rsity of [facility] Med ical Together Branch History SDOH Social Unive rsity of [facility] Medical Branch History SDOH Social Unive rsity of [facility] Medical Membership Branch History SDFL Social Unive rsity of [facility] Medical Meetings Branch Exposure to 2022-06-17 2022-06-27 Not sure University of SARS-CoV-2 (event) 00:00:00 14:46:00 [place] [facility] History SDOH 2022-06-13 2022-06-13 4 University o f Financial 00:00:00 00:00:00 [place] [facility] History SDOH Food 2022-06-13 2022-06-13 1 Univers ity of Worry 00:00:00 00:00:00 [place] [facility] History SDOH Food 2022-06-13 2022-06-13 1 Univers ity of Scarcity 00:00:00 00:00:00 [place] [facility] History SDOH 2022-06-13 2022-06-13 2 University o f Transport Med 00:00:00 00:00:00 [place] Medic al Branch History SDOH 2022-06-13 2022-06-13 2 University o f Transport Non-Med 00:00:00 00:00:00 [place] M edical Branch History SDFL 2022-06-13 2022-06-13 1 University o f Alcohol Frequency 00:00:00 00:00:00 [place] M edical Branch History SDFL 2022-06-13 2022-06-13 0 University o f Alcohol Std Drinks 00:00:00 00:00:00 [place] [facility] History SDFL 2022-06-13 2022-06-13 1 University o f Alcohol Binge 00:00:00 00:00:00 [place] Medic al Branch History SDFL Social 2022-06-13 2022-06-13 5 Unive rsity of Connections Phone 00:00:00 00:00:00 [place] M edical Branch History [facility] Social 2022-06-13 2022-06-13 3 Unive rsity of Connections Living 00:00:00 00:00:00 [place] [facility] History [facility] 2022-06-13 2022-06-13 0 University o f Physical Activity 00:00:00 00:00:00 [facility] edical DPW Branch History [facility] 2022-06-13 2022-06-13 0 University o f Physical Activity 00:00:00 00:00:00 [facility] edical MPS Branch Education 2019-03-10 2019-03-10 12 [facility] 00:00:00 00:00:00 [facility] Alcohol intake 2017-10-24 2017-10-[address] [facility] 00:00:00 00:00:00 non-drinker of Medical Ce nter alcohol (finding) Tobacco use and 2017-09-30 2017-09-[address] [facility] exposure 00:00:00 00:00:00 [facility] Tobacco Comment 2017-09-30 2017-09-[address] [facility] 00:00:00 00:00:00 Medical Center History of tobacco 1972-06-16 2016-07-08 Cigarette Smoker University of use 00:00:00 00:00:00 [facility] Sex Assigned At [address] [facility] 00:00:00 00:00:00 Medical [place] Smoking Status Start Date Stop Date Source Ex-smoker 2022-01-01 00:00:00 2022-01-01 00:00:00 [facility] Medical Branch Medications Ordered Filled Start Stop Current Ordering Indication Dosage Frequency Signature Comments Components Source Medication Medication Date Date Medication? Clinician (SIG) Name Name aspirin 81 2022-0 Yes 81mg Take 81 mg U nivers mg chewable 1-12 by mouth ity of tablet 14:50: daily. [place] [id number] Medical Branch Cholecalcif 2022-0 Yes 1{tbl} Take 1 Un bruno julito, 1-12 tablet by ity of Vitamin D3, 14:50: mouth [place] 125 mcg 10 daily. Medical (5,000 Branch unit) tablet aspirin 81 2022-0 Yes 81mg Take 81 mg U nivers mg chewable 1-04 by mouth ity of tablet 23:18: daily. [place] [address] Medical Branch Cholecalcif 2022-0 Yes 1{tbl} Take 1 Un bruno julito, 1-04 tablet by ity of Vitamin D3, 23:18: mouth [place] 125 mcg 51 daily. Medical (,000 Branch unit) tablet aspirin 81 2022-0 Yes 81mg Take 81 mg U nivers mg chewable 1-04 by mouth ity of tablet 23:18: daily. [place] [address] Medical Branch Cholecalcif 2022-0 Yes 1{tbl} Take 1 Un bruno julito, 1-04 tablet by ity of Vitamin D3, 23:18: mouth [place] 125 mcg 51 daily. Medical (5,000 Branch unit) tablet aspirin 81 2022-0 Yes 81mg Take 81 mg U nivers mg chewable 1-04 by mouth ity of tablet 23:18: daily. [place] [address] Medical Branch Cholecalcif 2022-0 Yes 1{tbl} Take 1 Un bruno julito, 1-04 tablet by ity of Vitamin D3, 23:18: mouth [place] 125 mcg 51 daily. Medical (5,000 Branch unit) tablet aspirin 81 2022-0 Yes 81mg Take 81 mg U nivers mg chewable 1-04 by mouth ity of tablet 23:18: daily. [place] [address] Medical Branch Cholecalcif 2022-0 Yes 1{tbl} Take 1 Un bruno julito, 1-04 tablet by ity of Vitamin D3, 23:18: mouth [place] 125 mcg 51 daily. Medical (5,000 Branch unit) tablet aspirin 81 2022-0 Yes 81mg Take 81 mg U nivers mg chewable 1-04 by mouth ity of tablet 23:18: daily. [address] Branch Cholecalcif Yes 1{tbl} Take 1 Un bruno julito, 1-04 tablet by ity of Vitamin D3, 23:18: mouth [place] 125 mcg 51 daily. Medical (5,000 Branch unit) tablet aspirin 81 0 Yes 81mg Take 81 mg U nivers mg chewable 1-04 by mouth ity of tablet 23:18: daily. [address] Branch Cholecalcif 0 Yes 1{tbl} Take 1 Un bruno julito, 1-04 tablet by ity of Vitamin D3, 23:18: mouth [place] 125 mcg 51 daily. Medical (5,000 Branch unit) tablet HYDROcodone 2022- Yes 4647 1{tbl} Take 1 U nivers -acetaminop 1-04 -12 tablet by it y of hen 5-325 00:00: 05:59 mouth [place] mg tablet 00 :00 every 6 Medical (six) Branch hours as needed for Pain (scale 4-6) for up to 7 days. Indication s: acute pain HYDROcodone 2022- Yes 4647 1{tbl} Take 1 U nivers -acetaminop 1-04 -12 tablet by it y of hen 5-325 00:00: 05:59 mouth [place] mg tablet 00 :00 every 6 Medical (six) Branch hours as needed for Pain (scale 4-6) for up to 7 days. Indication s: acute pain HYDROcodone 2022- Yes 4647 1{tbl} Take 1 U nivers -acetaminop 1-04 -12 tablet by it y of hen 5-325 00:00: 05:59 mouth [place] mg tablet 00 :00 every 6 Medical (six) Branch hours as needed for Pain (scale 4-6) for up to 7 days. Indication s: acute pain NaCl 0.9% 2022- No 5mL 5 mL, Slow U nivers (NS) 06-18 IV Push, ity of injection 5 22:15: 22:15 ONCE, 1 [place] mL 00 :00 dose, On Medical Tu06/18/22 Branch at 1615, Routine insulin Yes 15U 15 Units, Unive rs glargine 1-03 Subcutaneo ity o f (LANTUS 15:00: [place], DAILY, [place] U-100) 00 First dose Medical injection (after Branch 15 Units last modificati on) on Fri06/18/22 at 0900, Until Discontinu ed insulin Yes 15U 15 Units, [facility] 03 Subcutaneo ity o f (LANTUS 15:00: [place], DAILY, [place] U-100) 00 First dose Medical injection (after Branch 15 Units last modificati on) on Fri06/18/22 at 0900, Until Discontinu ed iodixanoL 2022- No PRN, Univers (VISIPAQUE 06-17 Starting ity of 270-150 mL) 15:00: 15:48 on Mon Luis Alberto as injection 00 :06/17/22 at Medic al 0900, Branch Until Fri06/17/22 at 0948, Routine, Intra-op lidocaine 2022- No PRN, Univers 1% (PF) 06-17 Starting ity of (XYLOCAINE) 13:55: 15:48 on Mon Luis Alberto as injection 00 :06/17/22 at Medic al 0755, Branch Until Fri06/17/22 at 0948, Routine, Intra-op heparin 2022- No PRN, Univers 10,000 06-17 Starting ity of units in NS 13:00: 15:48 on Mon Luis Alberto as 1000 mL for 00 :16 06/17/22 [facility], Branch Intra-op NaCl 0.9% 2021-06- No 5mL 5 mL, Slow U nivers (NS) 06-15 IV Push, ity of injection 5 15:30: 15:30 ONCE, 1 [place] mL 00 :00 dose, On Medical Sat Branch 06/15/22 at 0930, Routine heparin 2021-06 Yes 2000U PRN - SEE Univ ers 1,000 INSTRUCTIO ity of unit/mL (10 15:26: NS, [place] mL) - 17 Starting Medical dialysis on Sat Branch catheter 06/15/22 care at 0926, Until Discontinu ed, Routine
For Priming of Ports:&nbs p; &n bsp; After initial saline flush, prime each port with heparin according to the priming volume listed on each catheter port for catheter lock.
mupirocin 2021-06 Yes Nasal, Univer s (BACTROBAN 2-31 Q12H, For ity of NASAL OINT) 15:26: 5 days, [place] Alber[place] as 2 % nasal 17 First dose Medi tom ointment conditiona Branc h l, Routine heparin 2021-06 Yes 2000U PRN - SEE Univ ers 1,000 2-31 INSTRUCTIO ity of unit/mL (10 15:26: NS, [place] mL) - 17 Starting Medical dialysis on Sat Branch catheter 06/15/22 care at 0926, Until Discontinu ed, Routine
For Priming of Ports:&nbs p; &n bsp; After initial saline flush, prime each port with heparin according to the priming volume listed on each catheter port for catheter lock.
mupirocin 2021-06 Yes Nasal, Univer s (BACTROBAN 2-31 Q12H, For ity of NASAL OINT) 15:26: 5 days, [place] Alberto as 2 % nasal 17 First dose Medi tom ointment conditiona Branc h l, Routine heparin 2021-06 Yes 2000U PRN - SEE Univ ers 1,000 2-31 INSTRUCTIO ity of unit/mL (10 15:26: NS, [place] mL) - 17 Starting Medical dialysis on Sat Branch catheter 06/15/22 care at 0926, Until Discontinu ed, Routine
For Priming of Ports:&nbs p; &n bsp; After initial saline flush, prime each port with heparin according to the priming volume listed on each catheter port for catheter lock.
mupirocin 2021-06 Yes Nasal, Univer s (BACTROBAN 2-31 Q12H, For ity of NASAL OINT) 15:26: 5 days, [place] as 2 % nasal 17 First dose Medi tom ointment conditiona Branc h l, Routine ceFEPIme 2021-06- Yes 1000mg 1,000 mg, U nivers (MAXIPIME) 06-17 IV ity of 1,000 mg in 05:47: 05:59 Piggyback, [place] NaCl 0.9% 05 :00 Q24H, 2 Medical (NS) 50 mL doses, Branch MINI-BAG First dose (after last modificati on) on Fri06/15/22 at 0000, Last dose on Fri06/16/22 at 0000, Administer over 30 Minutes, 50 mL
Reas on for Anti-Infec tive: Empiric Therapy for Suspected Infection< br>Empiric Therapy Site: Skin / Soft tissue
Duration of therapy: 5 days ceFEPIme 2021-06 No 1000mg 1,000 mg, U nivers (MAXIPIME) 06-16 IV ity of 1,000 mg in 05:47: 07:19 Piggyback, [place] NaCl 0.9% 05 :00 Q24H, 2 Medical (NS) 50 mL doses, Branch MINI-BAG First dose (after last modificati on) on Fri06/15/22 at 0000, Last dose on Fri06/16/22 at 0000, Administer over 30 Minutes, 50 mL
Reas on for Anti-Infec tive: Empiric Therapy for Suspected Infection< br>Empiric Therapy Site: Skin / Soft tissue
Duration of therapy: 5 days albumin 2021-06 12.5g 12.5 g, IV Un bruno (ALBUTEIN 5 06-15 Infusion, it y of %) 5 % 18:30: 00:06 ONCE, 1 [place] injection 00 :00 dose, On Medica l 12.5 g Fri Branch 06/14/22 at 1230, 250 mL
[place]andy cation: SHOCK/IMPE NDING SHOCK vancomycin 2021-06 No 15mg/kg 1,000 mg Univers (VANCOCIN) 06-14 (rounded ity of 1,000 mg in 18:00: 19:00 from 1,035 [place] NaCl 0.9% 00 :00 mg = 15 Medical (NS) 250 mL mg/kg ?69 [facility] VIAL-MATE kg), IV IV Piggyback, piggyback QMON/WED/ FRI, 1 dose, First dose (after last modificati on) on Fri06/14/22 at 1200, Administer over 60 Minutes, 250 mL
Reas on for Anti-Infec tive: Empiric Therapy for Suspected Infection< br>Empiric Therapy Site: Skin / Soft tissue
Duration of therapy: 5 days NaCl 0.9% 2021-06 Yes 1000mL at 75 Unive rs (NS) IV 2-30 mL/hr, IV ity of infusion 17:30: Infusion, [place] 1,000 mL 00 CONTINUOUS Medic al , Starting Branch on Fri06/14/22 at 1130, Until Discontinu ed, Routine, PACU NaCl 0.9% 2021-06 Yes 1000mL at 75 Unive rs (NS) IV 2-30 mL/hr, IV ity of infusion 17:30: Infusion, [place] 1,000 mL 00 CONTINUOUS Medic al , Starting Branch on Fri06/14/22 at 1130, Until Discontinu ed, Routine, PACU NaCl 0.9% 2021-06 Yes 1000mL at 75 Unive rs (NS) IV 2-30 mL/hr, IV ity of infusion 17:30: Infusion, [place] 1,000 mL 00 CONTINUOUS Medic al , Starting Branch on Fri06/14/22 at 1130, Until Discontinu ed, Routine, PACU rosuvastati 2021-06 Yes 40mg 40 mg, Univ ers n (CRESTOR) 2-30 Oral, ity of tablet 40 15:00: DAILY, [place] mg 00 First dose Medical on Fri Branch 06/14/22 at 0900, Until Discontinu ed, Routine isosorbide 2021-06 Yes 30mg 30 mg, Unive rs mononitrate 2-30 Oral, ity of (IMDUR) 24 15:00: DAILY, [place] hr tablet 00 First dose Medi tom 30 mg on Fri Branch 06/14/22 at 0900, Until Discontinu ed, Routine insulin 2021-06 Yes 15U 15 Units, Unive rs glargine 2-30 Subcutaneo ity o f (LANTUS 15:00: [place], DAILY, [place] U-100) 00 First dose Medical injection on Fri Branch 15 Units 06/14/22 at 0900, Until Discontinu ed felodipine 2021-06 Yes 10mg 10 mg, Unive rs (PLENDIL) 2-30 Oral, ity of 24 hr 15:00: DAILY, [place] tablet 10 00 First dose Medi tom mg on Fri Branch 06/14/22 at 0900, Until Discontinu ed, Routine clopidogreL 2021-06 Yes 75mg 75 mg, Univ ers (PLAVIX) 75 2-30 Oral, ity of mg tablet 15:00: DAILY, [place] 75 mg 00 First dose Medical on Fri Branch 06/14/22 at 0900, Until Discontinu ed, Routine cholecalcif 2021-06 Yes 5000U 5,000 Univ ers julito 2-30 Units, ity of (vitamin 15:00: Oral, [place] D3) tablet 00 DAILY, Medical 5,000 Units First dose Br anch on Fri06/14/22 at 0900, Until Discontinu ed aspirin 2021-06 Yes 81mg 81 mg, Univers chewable 2-30 Oral, ity of tablet 81 15:00: DAILY, [place] mg 00 First dose Medical on Fri Branch 06/14/22 at 0900, Until Discontinu ed, Routine rosuvastati 2021-06 Yes 40mg 40 mg, Univ ers n (CRESTOR) 2-30 Oral, ity of tablet 40 15:00: DAILY, [place] mg 00 First dose Medical on Fri Branch 06/14/22 at 0900, Until Discontinu ed, Routine isosorbide 2021-06 Yes 30mg 30 mg, Unive rs mononitrate 2-30 Oral, ity of (IMDUR) 24 15:00: DAILY, [place] hr tablet 00 First dose Medi tom 30 mg on Fri Branch 06/14/22 at 0900, Until Discontinu ed, Routine felodipine 2021-06 Yes 10mg 10 mg, Unive rs (PLENDIL) 2-30 Oral, ity of 24 hr 15:00: DAILY, [place] tablet 10 00 First dose Medi tom mg on Fri Branch 06/14/22 at 0900, Until Discontinu ed, Routine clopidogreL 2021-06 Yes 75mg 75 mg, Univ ers (PLAVIX) 75 2-30 Oral, ity of mg tablet 15:00: DAILY, [place] 75 mg 00 First dose Medical on Fri Branch 06/14/22 at 0900, Until Discontinu ed, Routine cholecalcif 2021-06 Yes 5000U 5,000 Univ ers julito 2-30 Units, ity of (vitamin 15:00: Oral, [place] D3) tablet 00 DAILY, Medical 5,000 Units First dose Br anch on Fri06/14/22 at 0900, Until Discontinu ed aspirin 2021-06 Yes 81mg 81 mg, Univers chewable 2-30 Oral, ity of tablet 81 15:00: DAILY, [place] mg 00 First dose Medical on Fri06/14/22 at 0900, Until Discontinu ed, Routine rosuvastati 2021-06 Yes 40mg 40 mg, Univ ers n (CRESTOR) 2-30 Oral, ity of tablet 40 15:00: DAILY, [place] mg 00 First dose Medical on Fri06/14/22 at 0900, Until Discontinu ed, Routine isosorbide 2021-06 Yes 30mg 30 mg, Unive rs mononitrate 2-30 Oral, ity of (IMDUR) 24 15:00: DAILY, [place] hr tablet 00 First dose Medi tom 30 mg on Fri06/14/22 at 0900, Until Discontinu ed, Routine felodipine 2021-06 Yes 10mg 10 mg, Unive rs (PLENDIL) 2-30 Oral, ity of 24 hr 15:00: DAILY, [place] tablet 10 00 First dose Medi tom mg on Fri06/14/22 at 0900, Until Discontinu ed, Routine clopidogreL 2021-06 Yes 75mg 75 mg, Univ ers (PLAVIX) 75 2-30 Oral, ity of mg tablet 15:00: DAILY, [place] 75 mg 00 First dose Medical on Fri06/14/22 at 0900, Until Discontinu ed, Routine cholecalcif 2021-06 Yes 5000U 5,000 Univ ers julito 2-30 Units, ity of (vitamin 15:00: Oral, [place] D3) tablet 00 DAILY, Medical 5,000 Units First dose Br anch on Fri06/14/22 at 0900, Until Discontinu ed aspirin 2021-06 Yes 81mg 81 mg, Univers chewable 2-30 Oral, ity of tablet 81 15:00: DAILY, [place] mg 00 First dose Medical on Fri06/14/22 at 0900, Until Discontinu ed, Routine insulin 2021-06 No 15U 15 Units, Univ ers glargine 2-30 -03 Subcutaneo ity of (LANTUS 15:00: 14:46 us, DAILY, Luis Alberto as U-100) 00 :02 First dose Medical injection on Fri Branch 15 Units 06/14/22 at 0900, Until Discontinu ed dextrose 50 2021-06- No 1{syrin 50 mL (1 Univers % in water 2-30 12-30 ge} Syringe), ity of (D50W) 14:15: 13:31 Slow IV [place] injection 00 :00 Push, Medical 50 mL ONCE, 1 Branch dose, On Fri06/14/22 at 0815, Routine terazosin 2021-06 Yes 2mg 2 mg, Univers (HYTRIN) 2-30 Oral, QHS, ity o f capsule 2 03:00: First dose [place] mg 00 on [facility] 06/13/22 Branch at 2100, Until Discontinu ed, Routine terazosin 2021-06 Yes 2mg 2 mg, Univers (HYTRIN) 2-30 Oral, QHS, ity o f capsule 2 03:00: First dose [place] mg 00 on [facility] 06/13/22 Branch at 2100, Until Discontinu ed, Routine terazosin 2021-06 Yes 2mg 2 mg, Univers (HYTRIN) 2-30 Oral, QHS, ity o f capsule 2 03:00: First dose [place] 00 on [facility] 06/13/22 Branch at 2100, Until Discontinu ed, Routine metoprolol 2021-06 Yes 25mg 25 mg, Unive rs succinate 2-30 Oral, BID, ity of XL (TOPROL 02:00: First dose [place] XL) tablet 00 on [facility] 25 mg 06/13/22 Branch at 2000, Until Discontinu ed, Routine gabapentin 2021-06 Yes 300mg 300 mg, Uni vers (NEURONTIN) 2-30 Oral, BID, it y of capsule 300 02:00: First dose [place] mg 00 on [facility] 06/13/22 Branch at 2000, Until Discontinu ed, Routine metoprolol 2021-06 Yes 25mg 25 mg, Unive rs succinate 2-30 Oral, BID, ity of XL (TOPROL 02:00: First dose [place] XL) tablet 00 on [facility] 25 mg 06/13/22 Branch at 2000, Until Discontinu ed, Routine gabapentin 2021-06 Yes 300mg 300 mg, Uni vers (NEURONTIN) 2-30 Oral, BID, it y of capsule 300 02:00: First dose [place] mg 00 on [facility] 06/13/22 Branch at 2000, Until Discontinu ed, Routine metoprolol 2021-06 Yes 25mg 25 mg, Unive rs succinate 2-30 Oral, BID, ity of XL (TOPROL 02:00: First dose [place] XL) tablet 00 on [facility] 25 mg 06/13/22 Branch at 2000, Until Discontinu ed, Routine gabapentin 2021-06 Yes 300mg 300 mg, Uni vers (NEURONTIN) 2-30 Oral, BID, it y of capsule 300 02:00: First dose [place] mg 00 on [facility] 06/13/22 Branch at 2000, Until Discontinu ed, Routine calcium 2021-06 Yes 667mg 667 mg, Univer s acetate(kana 2-29 Oral, TID ity of sphat bind) 23:00: MEALS[place] (PHOSLO) 00 First dose Medic al capsule 667 on [facility] 06/13/22 at 1700, Until Discontinu ed, Routine calcium 2021-06 Yes 667mg 667 mg, Univer s acetate(kana 2-29 Oral, TID ity of sphat bind) 23:00: [place]ALS[place] (PHOSLO) 00 First dose Medic al capsule 667 on [facility] mg 06/13/22 at 1700, Until Discontinu ed, Routine calcium 2021-06 Yes 667mg 667 mg, Univer s acetate(kana 2-29 Oral, TID ity of sphat bind) 23:00: [place]ALS[place] (PHOSLO) 00 First dose Medic al capsule 667 on [facility] 06/13/22 at 1700, Until Discontinu ed, Routine ceFEPIme 2021-06- No 2000mg 2,000 mg, U nivers (MAXIPIME) 2-29 12-30 IV ity of 2,000 mg in 22:45: 17:49 Piggyback, [place] NaCl 0.9% 00 :22 Q24H ABX, Medic al (NS) 50 mL 14 doses, Bran ch MINI-BAG First dose on [place] 06/13/22 at 1645, Last dose on Fri06/26/22 at 1645, Administer over 30 Minutes, 50 mL
Reas on for Anti-Infec tive: Empiric Therapy for Suspected Infection< br>Empiric Therapy Site: Skin / Soft tissue
Duration of therapy: 5 days vancomycin 2021-06 15mg/kg 1,000 mg Univers (VANCOCIN) 06-14 (rounded ity of 1,000 mg in 21:45: 17:49 from 1,035 [place] NaCl 0.9% 00 :22 mg = 15 Medical (NS) 250 mL mg/kg ?69 [facility] VIAL-MATE kg), IV IV Piggyback, piggyback QMON// FRI, 6 doses, First dose on [place] 06/13/22 at 1545, Last dose on Fri06/24/22 at 0900, Administer over 60 Minutes, 250 mL
R marisol for Anti-Infec tive: Empiric Therapy for Suspected Infection< br>Empiric Therapy Site: Skin / Soft tissue
Duration of therapy: 5 days Sliding 2021-06 [facility] us, TID ity of Insulin - 21:30: MEALS+HS, [place] as Lispro 00 First dose Medical (HumaLOG) + on [place] Branch bg 06/13/22 Testing at 1530, Until Discontinu ed, Routine Sliding 2021-06 [facility] us, TID ity of Insulin - 21:30: MEALS+HS, [place] as Lispro 00 First dose Medical (HumaLOG) + on [place] Branch bg 06/13/22 Testing at 1530, Until Discontinu ed, Routine Sliding 2021-06 Yes [facility] ers Scale 2-29 us, TID ity of Insulin - 21:30: MEALS+HS, [place] as Lispro 00 First dose Medical (HumaLOG) + on [place] Branch bg 06/13/22 Testing at 1530, Until Discontinu ed, Routine dextrose 2021-06 Yes 250mL 250 mL, IV Un bruno 10% (D10W) Infusion, ity of bolus 21:27: PRN - SEE [place] infusion 04 INSTRUCTIO Medic al 250 mL NS, Branch Administer over 60 Minutes, Other, If blood glucose is < or = 70 mg/dL and patient is unable to swallow or has mental status changes, Starting on [place] 06/13/22 at 1527
If blood glucose is < or = 70 mg/dL and patient is unable to swallow or has mental status changes (Give glucagon order if patient needs fluid restrictio n): IF IV access available: Dextrose 10%. 1. 125 mL (? bag) of D10W IV infusion - equivalent to 12.5 g dextrose 2. Blood glucose - draw blood glucose 15 minutes after D10W Administra tion. 3. If blood glucose is < 80 mg/dL, repeat.
dextrose 2021-06 Yes 250mL 250 mL, IV Un br[place] 10% (D10W) 2-29 Infusion, ity of bolus 21:27: PRN - SEE [place] infusion 04 INSTRUCTIO Medic al 250 mL NS, Branch Administer over 60 Minutes, Other, If blood glucose is < or = 70 mg/dL and patient is unable to swallow or has mental status changes, Starting on [place] 06/13/22 at 1527
If blood glucose is < or = 70 mg/dL and patient is unable to swallow or has mental status changes (Give glucagon order if patient needs fluid restrictio n): IF IV access available: Dextrose 10%. 1. 125 mL (? bag) of D10W IV infusion - equivalent to 12.5 g dextrose 2. Blood glucose - draw blood glucose 15 minutes after D10W Administra tion. 3. If blood glucose is < 80 mg/dL, repeat.
dextrose 2021-06 Yes 250mL 250 mL, IV Un br[place] 10% (D10W) 2-29 Infusion, ity of bolus 21:27: PRN - SEE [place] infusion 04 INSTRUCTIO Medic al 250 mL NS, Branch Administer over 60 Minutes, Other, If blood glucose is < or = 70 mg/dL and patient is unable to swallow or has mental status changes, Starting on [place] 06/13/22 at 1527
If blood glucose is < or = 70 mg/dL and patient is unable to swallow or has mental status changes (Give glucagon order if patient needs fluid restrictio n): IF IV access available: Dextrose 10%. 1. 125 mL (? bag) of D10W IV infusion - equivalent to 12.5 g dextrose 2. Blood glucose - draw blood glucose 15 minutes after D10W Administra tion. 3. If blood glucose is < 80 mg/dL, repeat.
glucagon 2021-06 Yes 1mg 1 mg, Univers (GLUCAGEN 2-29 Intramuscu ity of DIAGNOSTIC :: [place], PRN, [place] KIT) 58 Starting Medical injection 1 on [place] Branch mg 06/13/22 at 1526, Until Discontinu ed, GASPER, Blood Glucose < or = 70 mg/dL and patient is unable to swallow or has mental changes. glucagon 2021-06 Yes 1mg 1 mg, Univers (GLUCAGEN 2-29 Intramuscu ity of DIAGNOSTIC : lar, PRN, [place] KIT) 58 Starting Medical injection 1 on [place] Branch mg 06/13/22 at 1526, Until Discontinu ed, GASPER, Blood Glucose < or = 70 mg/dL and patient is unable to swallow or has mental changes. glucagon 2021-06 Yes 1mg 1 mg, Univers (GLUCAGEN 2-29 Intramuscu ity of DIAGNOSTIC :: lar, PRN, [place] KIT) 58 Starting Medical injection 1 on [facility] mg 06/13/22 at 1526, Until Discontinu ed, GASPER, Blood Glucose < or = 70 mg/dL and patient is unable to swallow or has mental changes. FENTanyl PF 2021-06 Yes 25ug 25 mcg, Uni vers (SUBLIMAZE 2-29 Slow IV ity of (PF)) 21:25: Push, [place] injection 36 Q6HPRN, Medical 25 mcg Starting Branch on [place] 06/13/22 at 1525, Until Discontinu ed, Routine, Pain (scale 7-10) FENTanyl PF 2021-06 Yes 25ug 25 mcg, Uni vers (SUBLIMAZE 2-29 Slow IV ity of (PF)) 21:25: Push, [place] injection 36 Q6HPRN, Medical 25 mcg Starting Branch on [place] 06/13/22 at 1525, Until Discontinu ed, Routine, Pain (scale 7-10) FENTanyl PF 2021-06 Yes 25ug 25 mcg, Uni vers (SUBLIMAZE 2-29 Slow IV ity of (PF)) 21:25: Push, [place] injection 36 Q6HPRN, Medical 25 mcg Starting Branch on [place] 06/13/22 at 1525, Until Discontinu ed, Routine, Pain (scale 7-10) HYDROcodone 2021-06 Yes 1{tbl} 1 tablet, Univers -acetaminop 2-29 Oral, ity of hen (NORCO 21:23: Q6HPRN, [place] 5) 5-325 mg 37 Starting Medi tom tablet 1 on [place] Branch tablet 06/13/22 at 1523, Until Discontinu ed, Routine, Pain (scale 4-6) HYDROcodone 2021-06 Yes 1{tbl} 1 tablet, Univers -acetaminop 2-29 Oral, ity of hen (NORCO 21:23: Q6HPRN, [place] 5) 5-325 mg 37 Starting Medi tom tablet 1 on [place] Branch tablet 06/13/22 at 1523, Until Discontinu ed, Routine, Pain (scale 4-6) HYDROcodone 2021-06 Yes 1{tbl} 1 tablet, Univers -acetaminop 2-29 Oral, ity of hen (NORCO 21:23: Q6HPRN, [place] 5) 5-325 mg 37 Starting Medi tom tablet 1 on [place] Branch tablet 06/13/22 at 1523, Until Discontinu ed, Routine, Pain (scale 4-6) acetaminoph 2021-06 Yes 650mg 650 mg, [place] br[place] en 2- Oral, ity of (TYLENOL) 21:23: Q6HPRN, [place] tablet 650 12 Starting Medic al mg on [place] Branch 06/13/22 at 1523, Until Discontinu ed, Routine, Pain (scale 1-3), Temp > 38.5 C acetaminoph 2021-06 Yes 650mg 650 mg, Un bruno en 2-29 Oral, ity of (TYLENOL) 21:23: Q6HPRN, [place] tablet 650 12 Starting Medic al mg on [place] [facility] 06/13/22 at 1523, Until Discontinu ed, Routine, Pain (scale 1-3), Temp > 38.5 C acetaminoph 2021-06 Yes 650mg 650 mg, Un bruno en 2-29 Oral, ity of (TYLENOL) 21:23: Q6HPRN, [place] tablet 650 12 Starting Medic al mg on [place] [facility] 06/13/22 at 1523, Until Discontinu ed, Routine, Pain (scale 1-3), Temp > 38.5 C ondansetron 2021-06 Yes 4mg 4 mg, Slow Univers (ZOFRAN 2-29 IV Push, ity of (PF)) 21:23: Q6HPRN, [place] injection 4 08 Starting Medi tom mg on [place] [facility] 06/13/22 at 1523, Until Discontinu ed, Routine, Nausea and Vomiting (N/V) ondansetron 2021-06 Yes 4mg 4 mg, Slow Univers (ZOFRAN 2-29 IV Push, ity of (PF)) 21:23: Q6HPRN, [place] injection 4 08 Starting Medi tom mg on [facility] Branch 06/13/22 at 1523, Until Discontinu ed, Routine, Nausea and Vomiting (N/V) ondansetron 2021-06 Yes 4mg 4 mg, Slow Univers (ZOFRAN 2-29 IV Push, ity of (PF)) 21:23: Q6HPRN, [place] injection 4 08 Starting Medi tom mg on [facility] Branch 06/13/22 at 1523, Until Discontinu ed, Routine, Nausea and Vomiting (N/V) methocarbam 2021-06 Yes 500mg 500 mg, [place] br[place] oL 2-29 Oral, ity of (ROBAXIN) 21:19: QIDPRN, [place] tablet 500 20 Starting Medic al mg on [facility] Branch 06/13/22 at 1519, Until Discontinu ed, Routine, muscle spasms methocarbam 2021-06 Yes 500mg 500 mg, Un br[place] oL 2-29 Oral, ity of (ROBAXIN) 21:19: QIDPRN, [place] tablet 500 20 Starting Medic al mg on [facility] Branch 06/13/22 at 1519, Until Discontinu ed, Routine, muscle spasms methocarbam 2021-06 Yes 500mg 500 mg, Un bruno oL 2-29 Oral, ity of (ROBAXIN) 21:19: QIDPRN, [place] tablet 500 20 Starting Medic al mg on [facility] Branch 06/13/22 at 1519, Until Discontinu ed, Routine, muscle spasms nitroglycer 2021-06 Yes .4mg 0.4 mg, Uni vers in Sublingual ity of (NITROSTAT) 21:17: , Q5MIN [place] as sublingual 08 PRN, Medical tablet 0.4 Starting Branc h mg on [place] 06/13/22 at 1517, Until Discontinu ed, Routine, Chest pain nitroglycer 2021-06 Yes .4mg 0.4 mg, Uni vers in Sublingual ity of (NITROSTAT) 21:17: , Q5MIN [place] as sublingual 08 PRN, Medical tablet 0.4 Starting Branc h mg on [place] 06/13/22 at 1517, Until Discontinu ed, Routine, Chest pain nitroglycer 2021-06 Yes .4mg 0.4 mg, Uni vers in Sublingual ity of (NITROSTAT) 21:17: , Q5MIN [place] as sublingual 08 PRN, Medical tablet 0.4 Starting Branc h mg on [place] 06/13/22 at 1517, Until Discontinu ed, Routine, Chest pain aspirin 81 2021-06 Yes 81mg Take 81 mg U nivers mg chewable 2-29 by mouth ity of tablet 15:26: daily. [address] Cholecalcif 2021-06 Yes 1{tbl} Take 1 Un bruno julito, 2-29 tablet by ity of Vitamin D3, 15:26: mouth [place] 125 mcg 17 daily. Medical (5,000 Branch unit) tablet aspirin 81 2021-06 Yes 81mg Take 81 mg U nivers mg chewable 2-29 by mouth ity of tablet 15:26: daily. [address] Cholecalcif 2021-06 Yes 1{tbl} Take 1 Un bruno julito, 2-29 tablet by ity of Vitamin D3, 15:26: mouth [place] 125 mcg 17 daily. Medical (5,000 Branch unit) tablet aspirin 81 2021-06 Yes 81mg Take 81 mg U nivers mg chewable 2-29 by mouth ity of tablet 15:26: daily. [address] Cholecalcif 2021-06 Yes 1{tbl} Take 1 Un br[place] julito, 2-29 tablet by ity of Vitamin D3, 15:26: mouth [place] 125 mcg 17 daily. Medical (5,000 Branch unit) tablet ciprofloxac 2021-06- Yes [id number] 500mg Take 1 Univers in HCl 500 2-14 12-22 tablet by ity of mg tablet 00:00: 05:59 mouth [place] 00 :00 every 12 Medical (twelve) Branch hours for 7 days. ciprofloxac 2021-06- Yes [id number] 500mg Take 1 Univers in HCl 500 2-14 12-22 tablet by ity of mg tablet 00:00: 05:59 mouth [place] 00 :00 every 12 Medical (twelve) Branch hours for 7 days. ciprofloxac 2021-06- Yes [id number] 500mg Take 1 Univers in HCl 500 2-14 12-22 tablet by ity of mg tablet 00:00: 05:59 mouth [place] 00 :00 every 12 Medical (twelve) Branch hours for 7 days. ciprofloxac 2021-06- Yes [id number] 500mg Take 1 Univers in HCl 500 2-14 12-22 tablet by ity of mg tablet 00:00: 05:59 mouth [place] 00 :00 every 12 Medical (twelve) Branch hours for 7 days. ciprofloxac 2021-06- Yes [id number] 500mg Take 1 Univers in HCl 500 2-14 12-22 tablet by ity of mg tablet 00:00: 05:59 mouth [place] 00 :00 every 12 Medical (twelve) Branch hours for 7 days. ciprofloxac 2021-06- No [id number] 500mg Take 1 Univers in HCl 500 2-14 12-22 tablet by ity of mg tablet 00:00: 05:59 mouth [place] 00 :00 every 12 Medical (twelve) Branch hours for 7 days. acetaminoph 2021-06 Yes [id number] 1{tbl} Take 1 [...] 28 doses. Indication s: acute pain acetaminoph 2-1 Yes 4647 1{tbl} Take 1 Un bruno [...] 28 doses. Indication s: acute pain acetaminoph 2-1 Yes 4647 1{tbl} Take 1 Un bruno en-codeine 2-12 tablet by ity of 300-30 mg 00:00: mouth [place] tablet 00 every 4 Medical (four) Branch hours as needed for Pain (scale 7-10) for up to 28 doses. Indication s: acute pain acetaminoph 2-1 Yes 4647 1{tbl} Take 1 Un bruno [...] 28 doses. Indication s: acute pain acetaminoph 2021-06- No 4647 1{tbl} Take 1 U nivers en-codeine 2-12 -04 tablet by ity of 300-30 mg 00:00: 00:00 mouth [place] tablet 00 :00 every 4 Medical (four) Branch hours as needed for Pain (scale 7-10) for up to 28 doses. Indication s: acute pain minocycline 2021-06- Yes [id number] 100mg Take 1 Univers 100 mg 2-12 12-23 capsule by ity of capsule 00:00: 05:59 mouth [place] 00 :00 every 12 Medical (twelve) Branch hours for 10 days. minocycline 2021-06- Yes [id number] 100mg Take 1 Univers 100 mg 2-12 12-23 capsule by ity of capsule 00:00: 05:59 mouth [place] 00 :00 every 12 Medical (twelve) Branch hours for 10 days. minocycline 2021-06- Yes [id number] 100mg Take 1 Univers 100 mg 2-12 12-23 capsule by ity of capsule 00:00: 05:59 mouth [place] 00 :00 every 12 Medical (twelve) Branch hours for 10 days. minocycline 2021-06- Yes [id number] 100mg Take 1 Univers 100 mg 2-12 12-23 capsule by ity of capsule 00:00: 05:59 mouth [place] 00 :00 every 12 Medical (twelve) Branch hours for 10 days. minocycline 2021-06- Yes [id number] 100mg Take 1 Univers 100 mg 2-12 12-23 capsule by ity of capsule 00:00: 05:59 mouth [place] 00 :00 every 12 Medical (twelve) Branch hours for 10 days. minocycline 2021-06- Yes [id number] 100mg Take 1 Univers 100 mg 2-12 12-23 capsule by ity of capsule 00:00: 05:59 mouth [place] 00 :00 every 12 Medical (twelve) Branch hours for 10 days. minocycline 2021-06- Yes [id number] 100mg Take 1 Univers 100 mg 2-12 12-23 capsule by ity of capsule 00:00: 05:59 mouth [place] 00 :00 every 12 Medical (twelve) Branch hours for 10 days. minocycline 2021-06- Yes [id number] 100mg Take 1 Univers 100 mg 2-12 12-23 capsule by ity of capsule 00:00: 05:59 mouth [place] 00 :00 every 12 Medical (twelve) Branch hours for 10 days. minocycline 2021-06- Yes [id number] 100mg Take 1 Univers 100 mg 2-12 12-23 capsule by ity of capsule 00:00: 05:59 mouth [place] 00 :00 every 12 Medical (twelve) Branch hours for 10 days. aspirin 2021-06 Yes 81mg Take 81 mg U nivers mg chewable 1-19 by mouth ity of tablet 00:08: daily. [address] Branch Cholecalcif 2021-06 Yes 1{tbl} Take 1 Un bruno julito, 1-19 tablet by ity of Vitamin D3, 00:08: mouth [place] 125 mcg 15 daily. Medical (5,000 Branch unit) tablet aspirin 81 2021-06 Yes 81mg Take 81 mg U nivers mg chewable 1-19 by mouth ity of tablet 00:08: daily. [address] Branch Cholecalcif 2021-06 Yes 1{tbl} Take 1 Un bruno julito, 1-19 tablet by ity of Vitamin D3, 00:08: mouth [place] 125 mcg 15 daily. Medical (5,000 Branch unit) tablet aspirin 2021-06 Yes 81mg Take 81 mg U nivers mg chewable 1-19 by mouth ity of tablet 00:08: daily. [place] [address] Medical Branch Cholecalcif 2021-06 Yes 1{tbl} Take 1 Un bruno julito, 1-19 tablet by ity of Vitamin D3, 00:08: mouth [place] 125 mcg 15 daily. Medical (5,000 Branch unit) tablet aspirin 2021-06 Yes 81mg Take 81 mg U nivers mg chewable 1-19 by mouth ity of tablet 00:08: daily. [place] [address] Medical Branch Cholecalcif 2021-06 Yes 1{tbl} Take 1 Un bruno julito, 1-19 tablet by ity of Vitamin D3, 00:08: mouth [place] 125 mcg 15 daily. Medical (5,000 Branch unit) tablet aspirin 2021-06 Yes 81mg Take 81 mg U nivers mg chewable 1-19 by mouth ity of tablet 00:08: daily. [place] [address] Medical Branch Cholecalcif 2021-06 Yes 1{tbl} Take 1 Un bruno julito, 1-19 tablet by ity of Vitamin D3, 00:08: mouth [place] 125 mcg 15 daily. Medical (5,000 Branch unit) tablet aspirin 2021-06 Yes 81mg Take 81 mg U nivers mg chewable 1-19 by mouth ity of tablet 00:08: daily. [place] [address] Medical Branch Cholecalcif 2021-06 Yes 1{tbl} Take 1 Un bruno julito, 1-19 tablet by ity of Vitamin D3, 00:08: mouth [place] 125 mcg 15 daily. Medical (5,000 Branch unit) tablet aspirin 2021-06 Yes 81mg Take 81 mg U nivers mg chewable 1-19 by mouth ity of tablet 00:08: daily. [place] [address] Medical Branch Cholecalcif 2021-06 Yes 1{tbl} Take 1 Un bruno julito, 1-19 tablet by ity of Vitamin D3, 00:08: mouth [place] 125 mcg 15 daily. Medical (5,000 Branch unit) tablet aspirin 2021-06 Yes 81mg Take 81 mg U nivers mg chewable 1-19 by mouth ity of tablet 00:08: daily. [place] [address] Medical Branch Cholecalcif 2021-06 Yes 1{tbl} Take 1 Un bruno julito, 1-19 tablet by ity of Vitamin D3, 00:08: mouth [place] 125 mcg 15 daily. Medical (5,000 Branch unit) tablet aspirin 81 2021-06 Yes 81mg Take 81 mg U nivers mg chewable 1-19 by mouth ity of tablet 00:08: daily. [place] [address] Medical Branch Cholecalcif 2021-06 Yes 1{tbl} Take 1 Un bruno julito, 1-19 tablet by ity of Vitamin D3, 00:08: mouth [place] 125 mcg 15 daily. Medical (5,000 Branch unit) tablet aspirin 81 2021-06 Yes 81mg Take 81 mg U nivers mg chewable 1-19 by mouth ity of tablet 00:08: daily. [place] [address] Medical Branch Cholecalcif 2021-06 Yes 1{tbl} Take 1 Un bruno julito, 1-19 tablet by ity of Vitamin D3, 00:08: mouth [place] 125 mcg 15 daily. Medical (5,000 Branch unit) tablet aspirin 2021-06 Yes 81mg Take 81 mg U nivers mg chewable 1-19 by mouth ity of tablet 00:08: daily. [place] [address] Medical Branch Cholecalcif 2021-06 Yes 1{tbl} Take 1 Un bruno julito, 1-19 tablet by ity of Vitamin D3, 00:08: mouth [place] 125 mcg 15 daily. Medical (5,000 Branch unit) tablet aspirin 81 2021-06 Yes 81mg Take 81 mg U nivers mg chewable 1-19 by mouth ity of tablet 00:08: daily. [place] [address] Medical Branch Cholecalcif 2021-06 Yes 1{tbl} Take 1 Un bruno julito, 1-19 tablet by ity of Vitamin D3, 00:08: mouth [place] 125 mcg 15 daily. Medical (5,000 Branch unit) tablet aspirin 81 2021-06 Yes 81mg Take 81 mg U nivers mg chewable 1-19 by mouth ity of tablet 00:08: daily. [place] [address] Medical Branch Cholecalcif 2021-06 Yes 1{tbl} Take 1 Un bruno julito, 1-19 tablet by ity of Vitamin D3, 00:08: mouth [place] 125 mcg 15 daily. Medical (5,000 Branch unit) tablet aspirin 2021-06 Yes 81mg Take 81 mg U nivers mg chewable 1-19 by mouth ity of tablet 00:08: daily. [place] [address] Medical Branch Cholecalcif 2021-06 Yes 1{tbl} Take 1 Un bruno julito, 1-19 tablet by ity of Vitamin D3, 00:08: mouth [place] 125 mcg 15 daily. Medical (5,000 Branch unit) tablet aspirin 2021-06 Yes 81mg Take 81 mg U nivers mg chewable 1-19 by mouth ity of tablet 00:08: daily. [place] [address] Medical Branch Cholecalcif 2021-06 Yes 1{tbl} Take 1 Un bruno julito, 1-19 tablet by ity of Vitamin D3, 00:08: mouth [place] 125 mcg 15 daily. Medical (5,000 Branch unit) tablet aspirin 2021-06 Yes 81mg Take 81 mg U nivers mg chewable 1-19 by mouth ity of tablet 00:08: daily. [place] [address] Medical Branch Cholecalcif 2021-06 Yes 1{tbl} Take 1 Un bruno julito, 1-19 tablet by ity of Vitamin D3, 00:08: mouth [place] 125 mcg 15 daily. Medical (5,000 Branch unit) tablet aspirin 2021-06 Yes 81mg Take 81 mg U nivers mg chewable 1-19 by mouth ity of tablet 00:08: daily. [place] [address] Medical Branch Cholecalcif 2021-06 Yes 1{tbl} Take 1 Un bruno julito, 1-19 tablet by ity of Vitamin D3, 00:08: mouth [place] 125 mcg 15 daily. Medical (5,000 Branch unit) tablet aspirin 2021-06 Yes 81mg Take 81 mg U nivers mg chewable 1-19 by mouth ity of tablet 00:08: daily. [place] [address] Medical Branch Cholecalcif 2021-06 Yes 1{tbl} Take 1 Un bruno julito, 1-19 tablet by ity of Vitamin D3, 00:08: mouth [place] 125 mcg 15 daily. Medical (5,000 Branch unit) tablet aspirin 81 2021-06 Yes 81mg Take 81 mg U nivers mg chewable 1-19 by mouth ity of tablet 00:08: daily. [place] [address] Medical Branch Cholecalcif 2021-06 Yes 1{tbl} Take 1 Un bruno julito, 1-19 tablet by ity of Vitamin D3, 00:08: mouth [place] 125 mcg 15 daily. Medical (5,000 Branch unit) tablet aspirin 81 2021-06 Yes 81mg Take 81 mg U nivers mg chewable 1-19 by mouth ity of tablet 00:08: daily. [place] [facility] Branch Cholecalcif 2021-06 Yes 1{tbl} Take 1 Un bruno julito, 1-19 tablet by ity of Vitamin D3, 00:08: mouth [place] 125 mcg 15 daily. Medical (5,000 Branch unit) tablet aspirin 81 2021-06 Yes 81mg Take 81 mg U nivers mg chewable 1-19 by mouth ity of tablet 00:08: daily. [place] [address] Medical Branch Cholecalcif 2021-06 Yes 1{tbl} Take 1 Un bruno julito, 1-19 tablet by ity of Vitamin D3, 00:08: mouth [place] 125 mcg 15 daily. Medical (5,000 Branch unit) tablet aspirin 2021-06 Yes 81mg Take 81 mg U nivers mg chewable 1-19 by mouth ity of tablet 00:08: daily. [place] [address] Medical Branch Cholecalcif 2021-06 Yes 1{tbl} Take 1 Un bruno julito, 1-19 tablet by ity of Vitamin D3, 00:08: mouth [place] 125 mcg 15 daily. Medical (5,000 Branch unit) tablet aspirin 2021-06 Yes 81mg Take 81 mg U nivers mg chewable 1-19 by mouth ity of tablet 00:08: daily. [place] [address] Medical Branch Cholecalcif 2021-06 Yes 1{tbl} Take 1 Un bruno julito, 1-19 tablet by ity of Vitamin D3, 00:08: mouth [place] 125 mcg 15 daily. Medical (5,000 Branch unit) tablet aspirin 81 2021-06 Yes 81mg Take 81 mg U nivers mg chewable 1-19 by mouth ity of tablet 00:08: daily. [place] [facility] Branch Cholecalcif 2021-06 Yes 1{tbl} Take 1 Un bruno julito, 1-19 tablet by ity of Vitamin D3, 00:08: mouth [place] 125 mcg 15 daily. Medical (5,000 Branch unit) tablet aspirin 81 2021-06 Yes 81mg Take 81 mg U nivers mg chewable 1-19 by mouth ity of tablet 00:08: daily. [place] [address] Medical Branch Cholecalcif 2021-06 Yes 1{tbl} Take 1 Un bruno julito, 1-19 tablet by ity of Vitamin D3, 00:08: mouth [place] 125 mcg 15 daily. Medical (5,000 Branch unit) tablet aspirin 81 2021-06 Yes 81mg Take 81 mg U nivers mg chewable 1-19 by mouth ity of tablet 00:08: daily. [place] [address] Medical Branch Cholecalcif 2021-06 Yes 1{tbl} Take 1 Un bruno julito, 1-19 tablet by ity of Vitamin D3, 00:08: mouth [place] 125 mcg 15 daily. Medical (5,000 Branch unit) tablet aspirin 81 2021-06 Yes 81mg Take 81 mg U nivers mg chewable 1-19 by mouth ity of tablet 00:08: daily. [place] [address] Medical [place] Cholecalcif 2021-06 Yes 1{tbl} Take 1 Un bruno julito, 1-19 tablet by ity of Vitamin D3, 00:08: mouth [place] 125 mcg 15 daily. Medical (5,000 Branch unit) tablet epoetin 2021-06 No 8000U 8,000 Univers az-epbx 1-18 11-18 Units, ity of (RETACRIT) 15:00: 17:21 Intravenou [place] injection 00 :00 s, Medical 8,000 Units DIALYSIS Bran ch ONCE - [facility], 1 dose, On Fri05/03/22 at 0900, Routine
bakery team member approving Restricted medication : ANTONIA LANGLEY methocarbam 2021-06 Yes [id number] 500mg Take 1 Univers oL 500 mg [...] Indication s: acute pain gabapentin 2021-06 Yes [id number] 300mg Take 1 Univers 300 mg 1-18 capsule by ity of capsule 00:00: mouth in [place] the Medical morning Branch and 1 capsule in the evening. methocarbam 2021-06 Yes [id number] 500mg Take 1 [facility] oL 500 mg 1-18 tablet by ity o f tablet 00:00: mouth [place] (four) Medical times Branch daily as needed (muscle spasms). HYDROcodone 2021-06 Yes 4647 1{tbl} Take 1 Un bruno -acetaminop 1-18 tablet by ity of hen 10-325 00:00: mouth [place] mg tablet 00 every 6 Medical (six) Branch hours as needed for Pain (scale 7-10). Indication s: acute pain gabapentin 2021-06 Yes [id number] 300mg Take 1 [facility] 300 mg 1-18 capsule by ity of capsule 00:00: mouth in [place] [address] the Medical morning Branch and 1 capsule in the evening. methocarbam 2021-06 Yes [id number] 500mg Take 1 [facility] oL 500 mg 1-18 tablet by ity o f tablet 00:00: mouth [place] [facility] Medical times [place] daily as needed (muscle spasms). HYDROcodone 2021-06 Yes 4647 1{tbl} Take 1 Un bruno -acetaminop 1-18 tablet by ity of hen 10-325 00:00: mouth [place] mg tablet 00 every 6 Medical (six) Branch hours as needed for Pain (scale 7-10). Indication s: acute pain gabapentin 2021-06 Yes [id number] 300mg Take 1 [facility] 300 mg 1-18 capsule by ity of capsule 00:00: mouth in [place] the Medical morning Branch and 1 capsule in the evening. methocarbam 2021-06 Yes [id number] 500mg Take 1 [facility] oL 500 mg 1-18 tablet by ity o f tablet 00:00: mouth [place] (four) Medical times Branch daily as needed (muscle spasms). HYDROcodone 2021-06 Yes 4647 1{tbl} Take 1 Un bruno -acetaminop 1-18 tablet by ity of hen 10-325 00:00: mouth [place] mg tablet 00 every 6 Medical (six) Branch hours as needed for Pain (scale 7-10). Indication s: acute pain gabapentin 2021-06 Yes [id number] 300mg Take 1 [facility] 300 mg 1-18 capsule by ity of capsule 00:00: mouth in [place] the Medical morning Branch and 1 capsule in the evening. methocarbam 2021-06 Yes [id number] 500mg Take 1 [facility] oL 500 mg 1-18 tablet by ity o f tablet 00:00: mouth [place] (four) Medical times Branch daily as needed (muscle spasms). HYDROcodone 2021-06 Yes 4647 1{tbl} Take 1 Un bruno -acetaminop 1-18 tablet by ity of hen 10-325 00:00: mouth [place] mg tablet 00 every 6 Medical (six) Branch hours as needed for Pain (scale 7-10). Indication s: acute pain gabapentin 2021-06 Yes [id number] 300mg Take 1 [facility] 300 mg 1-18 capsule by ity of capsule 00:00: mouth in [place] the Medical morning Branch and 1 capsule in the evening. methocarbam 2021-06 Yes [id number] 500mg Take 1 [facility] oL 500 mg 1-18 tablet by ity o f tablet 00:00: mouth [place] [facility] Medical times [place] daily as needed (muscle spasms). HYDROcodone 2021-06 Yes 4647 1{tbl} Take 1 Un bruno -acetaminop 1-18 tablet by ity of hen 10-325 00:00: mouth [place] mg tablet 00 every 6 Medical (six) Branch hours as needed for Pain (scale 7-10). Indication s: acute pain gabapentin 2021-06 Yes [id number] 300mg Take 1 [facility] 300 mg 1-18 capsule by ity of capsule 00:00: mouth in [place] the Medical morning Branch and 1 capsule in the evening. methocarbam 2021-06 Yes [id number] 500mg Take 1 [facility] oL 500 mg 1-18 tablet by ity o f tablet 00:00: mouth [place] (four) Medical times Branch daily as needed (muscle spasms). HYDROcodone 2021-06 Yes 4647 1{tbl} Take 1 Un bruno -acetaminop 1-18 tablet by ity of hen 10-325 00:00: mouth [place] mg tablet 00 every 6 Medical (six) Branch hours as needed for Pain (scale 7-10). Indication s: acute pain gabapentin 2021-06 Yes [id number] 300mg Take 1 [facility] 300 mg 1-18 capsule by ity of capsule 00:00: mouth in [place] the Medical morning Branch and 1 capsule in the evening. methocarbam 2021-06 Yes [id number] 500mg Take 1 [facility] oL 500 mg 1-18 tablet by ity o f tablet 00:00: mouth [place] (four) Medical times Branch daily as needed (muscle spasms). HYDROcodone 2021-06 Yes 4647 1{tbl} Take 1 Un bruno -acetaminop 1-18 tablet by ity of hen 10-325 00:00: mouth [place] mg tablet 00 every 6 Medical (six) Branch hours as needed for Pain (scale 7-10). Indication s: acute pain gabapentin 2021-06 Yes [id number] 300mg Take 1 [facility] 300 mg 1-18 capsule by ity of capsule 00:00: mouth in [place] the Medical morning Branch and 1 capsule in the evening. methocarbam 2021-06 Yes [id number] 500mg Take 1 [facility] oL 500 mg 1-18 tablet by ity o f tablet 00:00: mouth [place] [facility] Medical times [place] daily as needed (muscle spasms). HYDROcodone 2021-06 Yes 4647 1{tbl} Take 1 Un bruno -acetaminop 1-18 tablet by ity of hen 10-325 00:00: mouth [place] mg tablet 00 every 6 Medical (six) Branch hours as needed for Pain (scale 7-10). Indication s: acute pain gabapentin 2021-06 Yes [id number] 300mg Take 1 [facility] 300 mg 1-18 capsule by ity of capsule 00:00: mouth in [place] the morning Branch and 1 capsule in the evening. methocarbam 2021-06 Yes [id number] 500mg Take 1 [facility] oL 500 mg 1-18 tablet by ity o f tablet 00:00: mouth [place] (four) Medical times Branch daily as needed (muscle spasms). HYDROcodone 2021-06 Yes 4647 1{tbl} Take 1 Un bruno -acetaminop 1-18 tablet by ity of hen 10-325 00:00: mouth [place] mg tablet 00 every 6 Medical (six) Branch hours as needed for Pain (scale 7-10). Indication s: acute pain gabapentin 2021-06 Yes [id number] 300mg Take 1 [facility] 300 mg 1-18 capsule by ity of capsule 00:00: mouth in [place] the Medical morning Branch and 1 capsule in the evening. methocarbam 2021-06 Yes [id number] 500mg Take 1 [facility] oL 500 mg 1-18 tablet by ity o f tablet 00:00: mouth (four) Medical times [place] daily as needed (muscle spasms). HYDROcodone 2021-06 Yes 4647 1{tbl} Take 1 Un bruno -acetaminop 1-18 tablet by ity of hen 10-325 00:00: mouth [place] mg tablet 00 every 6 Medical (six) Branch hours as needed for Pain (scale 7-10). Indication s: acute pain gabapentin 2021-06 Yes [id number] 300mg Take 1 [facility] 300 mg 1-18 capsule by ity of capsule 00:00: mouth in [place] the Medical morning Branch and 1 capsule in the evening. methocarbam 2021-06 Yes [id number] 500mg Take 1 [facility] oL 500 mg 1-18 tablet by ity o f tablet 00:00: mouth [facility] Medical times [place] daily as needed (muscle spasms). HYDROcodone 2021-06 Yes 4647 1{tbl} Take 1 Un bruno -acetaminop 1-18 tablet by ity of hen 10-325 00:00: mouth [place] mg tablet 00 every 6 Medical (six) Branch hours as needed for Pain (scale 7-10). Indication s: acute pain gabapentin 2021-06 Yes [id number] 300mg Take 1 [facility] 300 mg 1-18 capsule by ity of capsule 00:00: mouth in [place] the morning Branch and 1 capsule in the evening. methocarbam 2021-06 Yes [id number] 500mg Take 1 [facility] oL 500 mg 1-18 tablet by ity o f tablet 00:00: mouth (four) Medical times [place] daily as needed (muscle spasms). HYDROcodone 2021-06 Yes 4647 1{tbl} Take 1 Un bruno -acetaminop 1-18 tablet by ity of hen 10-325 00:00: mouth [place] mg tablet 00 every 6 Medical (six) Branch hours as needed for Pain (scale 7-10). Indication s: acute pain gabapentin 2021-06 Yes [id number] 300mg Take 1 [facility] 300 mg 1-18 capsule by ity of capsule 00:00: mouth in [place] the Medical morning Branch and 1 capsule in the evening. methocarbam 2021-06 Yes [id number] 500mg Take 1 [facility] oL 500 mg 1-18 tablet by ity o f tablet 00:00: mouth (four) Medical times [place] daily as needed (muscle spasms). HYDROcodone 2021-06 Yes 4647 1{tbl} Take 1 Un bruno -acetaminop 1-18 tablet by ity of hen 10-325 00:00: mouth [place] mg tablet 00 every 6 Medical (six) Branch hours as needed for Pain (scale 7-10). Indication s: acute pain gabapentin 2021-06 Yes [id number] 300mg Take 1 [facility] 300 mg 1-18 capsule by ity of capsule 00:00: mouth in [place] the morning Branch and 1 capsule in the evening. methocarbam 2021-06 Yes [id number] 500mg Take 1 [facility] oL 500 mg 1-18 tablet by ity o f tablet 00:00: mouth [facility] Medical times [place] daily as needed (muscle spasms). HYDROcodone 2021-06 Yes 4647 1{tbl} Take 1 Un bruno -acetaminop 1-18 tablet by ity of hen 10-325 00:00: mouth [place] mg tablet 00 every 6 Medical (six) Branch hours as needed for Pain (scale 7-10). Indication s: acute pain gabapentin 2021-06 Yes [id number] 300mg Take 1 [facility] 300 mg 1-18 capsule by ity of capsule 00:00: mouth in [place] the morning Branch and 1 capsule in the evening. methocarbam 2021-06 Yes [id number] 500mg Take 1 [facility] oL 500 mg 1-18 tablet by ity o f tablet 00:00: mouth [place] (four) Medical times [place] daily as needed (muscle spasms). HYDROcodone 2021-06 Yes 4647 1{tbl} Take 1 Un bruno -acetaminop 1-18 tablet by ity of hen 10-325 00:00: mouth [place] mg tablet 00 every 6 Medical (six) Branch hours as needed for Pain (scale 7-10). Indication s: acute pain gabapentin 2021-06 Yes [id number] 300mg Take 1 [facility] 300 mg 1-18 capsule by ity of capsule 00:00: mouth in [place] the Medical morning Branch and 1 capsule in the evening. methocarbam 2021-06 Yes [id number] 500mg Take 1 [facility] oL 500 mg [...] Indication s: acute pain gabapentin 2021-06 Yes [id number] 300mg Take 1 [facility] 300 mg 1-18 capsule by ity of capsule 00:00: mouth in [place] the Medical morning Branch and 1 capsule in the evening. methocarbam 2021-06 Yes [id number] 500mg Take 1 [facility] oL 500 mg 1-18 tablet by ity o f tablet 00:00: mouth [place] [facility] Medical times [place] daily as needed (muscle spasms). HYDROcodone 2021-06 Yes 4647 1{tbl} Take 1 Un bruno -acetaminop 1-18 tablet by ity of hen 10-325 00:00: mouth [place] mg tablet 00 every 6 Medical (six) Branch hours as needed for Pain (scale 7-10). Indication s: acute pain gabapentin 2021-06 Yes [id number] 300mg Take 1 [facility] 300 mg 1-18 capsule by ity of capsule 00:00: mouth in [place] the morning Branch and 1 capsule in the evening. methocarbam 2021-06 Yes [id number] 500mg Take 1 [facility] oL 500 mg 1-18 tablet by ity o f tablet 00:00: mouth [place] (four) Medical times Branch daily as needed (muscle spasms). HYDROcodone 2021-06 Yes 4647 1{tbl} Take 1 Un bruno -acetaminop 1-18 tablet by ity of hen 10-325 00:00: mouth [place] mg tablet 00 every 6 Medical (six) Branch hours as needed for Pain (scale 7-10). Indication s: acute pain gabapentin 2021-06 Yes [id number] 300mg Take 1 [facility] 300 mg 1-18 capsule by ity of capsule 00:00: mouth in [place] 00 the Medical morning Branch and 1 capsule in the evening. methocarbam 2021-06 Yes [id number] 500mg Take 1 [facility] oL 500 mg [...] Indication s: acute pain gabapentin 2021-06 Yes [id number] 300mg Take 1 [facility] 300 mg 1-18 capsule by ity of capsule 00:00: mouth in [place] the Medical morning Branch and 1 capsule in the evening. methocarbam 2021-06 Yes [id number] 500mg Take 1 [facility] oL 500 mg [...] Indication s: acute pain gabapentin 2021-06 Yes [id number] 300mg Take 1 [facility] 300 mg 1-18 capsule by ity of capsule 00:00: mouth in [place] the Medical morning Branch and 1 capsule in the evening. methocarbam 2021-06 Yes [id number] 500mg Take 1 [facility] oL 500 mg [...] Indication s: acute pain gabapentin 2021-06 Yes [id number] 300mg Take 1 [facility] 300 mg 1-18 capsule by ity of capsule 00:00: mouth in [place] the Medical morning Branch and 1 capsule in the evening. methocarbam 2021-06 Yes [id number] 500mg Take 1 [facility] oL 500 mg [...] Indication s: acute pain gabapentin 2021-06 Yes [id number] 300mg Take 1 [facility] 300 mg 1-18 capsule by ity of capsule 00:00: mouth in [place] the Medical morning Branch and 1 capsule in the evening. methocarbam 2021-06 Yes [id number] 500mg Take 1 [facility] oL 500 mg [...] Indication s: acute pain gabapentin 2021-06 Yes [id number] 300mg Take 1 [facility] 300 mg 1-18 capsule by ity of capsule 00:00: mouth in [place] the Medical morning Branch and 1 capsule in the evening. methocarbam 2021-06 Yes [id number] 500mg Take 1 [facility] oL 500 mg [...] Indication s: acute pain gabapentin 2021-06 Yes [id number] 300mg Take 1 [facility] 300 mg 1-18 capsule by ity of capsule 00:00: mouth in [place] morning Branch and 1 capsule in the evening. methocarbam 2021-06 Yes [id number] 500mg Take 1 [facility] oL 500 mg [...] Indication s: acute pain gabapentin 2021-06 Yes [id number] 300mg Take 1 [facility] 300 mg 1-18 capsule by ity of capsule 00:00: mouth in [place] the Medical morning Branch and 1 capsule in the evening. methocarbam 2021-06 Yes [id number] 500mg Take 1 [facility] oL 500 mg [...] Indication s: acute pain gabapentin 2021-06 Yes [id number] 300mg Take 1 [facility] 300 mg 1-18 capsule by ity of capsule 00:00: mouth in [place] the Medical morning Branch and 1 capsule in the evening. methocarbam 2021-06 Yes [id number] 500mg Take 1 [facility] oL 500 mg [...] Indication s: acute pain gabapentin 2021-06 Yes [id number] 300mg Take 1 [facility] 300 mg 1-18 capsule by ity of capsule 00:00: mouth in [place] 00 the Medical morning Branch and 1 capsule in the evening. methocarbam 2021-06 Yes [id number] 500mg Take 1 [facility] oL 500 mg [...] Indication s: acute pain gabapentin 2021-06 Yes [id number] 300mg Take 1 [facility] 300 mg 1-18 capsule by ity of capsule 00:00: mouth in 00 the Medical morning Branch and 1 capsule in the evening. methocarbam 2021-06 Yes [id number] 500mg Take 1 [facility] oL 500 mg 1-18 tablet by ity o f tablet 00:00: mouth () Medical times Branch daily as needed (muscle spasms). HYDROcodone 2021-06 Yes [id number] 1{tbl} Take 1 Un bruno -acetaminop 1-18 tablet by ity of hen 10-325 00:00: mouth [place] mg tablet 00 every 6 Medical (six) Branch hours as needed for Pain (scale 7-10). Indication s: acute pain gabapentin 2021-06 Yes [id number] 300mg Take 1 [facility] 300 mg 1-18 capsule by ity of capsule 00:00: mouth in [place] the Medical morning Branch and 1 capsule in the evening. methocarbam 2021-06 Yes [id number] 500mg Take 1 [facility] oL 500 mg 1-18 tablet by ity o f tablet 00:00: mouth () Medical times Branch daily as needed (muscle spasms). gabapentin 2021-06 Yes [id number] 300mg Take 1 [facility] 300 mg 1-18 capsule by ity of capsule 00:00: mouth in [place] the Medical morning Branch and 1 capsule in the evening. methocarbam 2021-06 Yes [id number] 500mg Take 1 [facility] oL 500 mg 1-18 tablet by ity o f tablet 00:00: mouth 4 (four) Medical times Branch daily as needed (muscle spasms). gabapentin 2021-06 Yes [id number] 300mg Take 1 [facility] 300 mg 1-18 capsule by ity of capsule 00:00: mouth in [place] the Medical morning Branch and 1 capsule in the evening. methocarbam 2021-06 Yes [id number] 500mg Take 1 [facility] oL 500 mg 1-18 tablet by ity o f tablet 00:00: mouth 4 [place] [facility] Medical times [place] daily as needed (muscle spasms). gabapentin 2021-06 Yes [id number] 300mg Take 1 [facility] 300 mg 1-18 capsule by ity of capsule 00:00: mouth in [place] the Medical morning Branch and 1 capsule in the evening. methocarbam 2021-06 Yes [id number] 500mg Take 1 [facility] oL 500 mg 1-18 tablet by ity o f tablet 00:00: mouth [place] [facility] Medical times [place] daily as needed (muscle spasms). gabapentin 2021-06 Yes [id number] 300mg Take 1 [facility] 300 mg 1-18 capsule by ity of capsule 00:00: mouth in [place] [address] [facility] morning Branch and 1 capsule in the evening. methocarbam 2021-06 Yes [id number] 500mg Take 1 [facility] oL 500 mg 1-18 tablet by ity o f tablet 00:00: mouth [place] [facility] Medical times [place] daily as needed (muscle spasms). gabapentin 2021-06 Yes [id number] 300mg Take 1 [facility] 300 mg 1-18 capsule by ity of capsule 00:00: mouth in [place] [address] [facility] morning Branch and 1 capsule in the evening. methocarbam 2021-06 Yes [id number] 500mg Take 1 [facility] oL 500 mg 1-18 tablet by ity o f tablet 00:00: mouth [place] [address] ([facility]) Medical times [place] daily as needed (muscle spasms). gabapentin 2021-06 Yes [id number] 300mg Take 1 [facility] 300 mg 1-18 capsule by ity of capsule 00:00: mouth in [place] [address] [facility] morning Branch and 1 capsule in the evening. methocarbam 2021-06 Yes [id number] 500mg Take 1 [facility] oL 500 mg 1-18 tablet by ity o f tablet 00:00: mouth 4 [place] [address] ([facility]) Medical times [place] daily as needed (muscle spasms). gabapentin 2021-06 Yes [id number] 300mg Take 1 [facility] 300 mg 1-18 capsule by ity of capsule 00:00: mouth in [place] 00 the Medical morning Branch and 1 capsule in the evening. HYDROcodone 2021-06- No 4647 1{tbl} Take 1 U nivers -acetaminop 1-18 -04 tablet by it y of hen 10-325 00:00: 00:00 mouth [place] mg tablet 00 :00 every 6 Medical (six) Branch hours as needed for Pain (scale 7-10). Indication s: acute pain docusate 2021-06- Yes [id number] 100mg Take 1 [facility] 100 mg 1-18 12-04 capsule by ity of capsule 00:00: 05:59 mouth in [place] 00 :00 the [facility] for 15 days. docusate 2021-06- Yes [id number] 100mg Take 1 [facility] 100 mg 1-18 12-04 capsule by ity of capsule 00:00: 05:59 mouth in [place] 00 :00 the [facility] for 15 days. docusate 2021-06- Yes [id number] 100mg Take 1 [facility] 100 mg 1-18 12-04 capsule by ity of capsule 00:00: 05:59 mouth in [place] 00 :00 the [facility] for 15 days. docusate 2021-06- Yes [id number] 100mg Take 1 [facility] 100 mg 1-18 12-04 capsule by ity of capsule 00:00: 05:59 mouth in [place] 00 :00 the [facility] for 15 days. docusate 2021-06- Yes [id number] 100mg Take 1 [facility] 100 mg 1-18 12-04 capsule by ity of capsule 00:00: 05:59 mouth in [place] 00 :00 the [facility] for 15 days. docusate 2021-06- Yes [id number] 100mg Take 1 [facility] 100 mg 1-18 12-04 capsule by ity of capsule 00:00: 05:59 mouth in [place] 00 :00 the [facility] for 15 days. gabapentin 2021-06- No [id number] 300mg Take 1 [facility] 300 mg 1-18 11-18 capsule by ity of capsule 00:00: 00:00 mouth in [place] 00 :[address] [facility] morning Branch and 1 capsule in the evening. Do all this for 21 days. HYDROcodone 2021-06- No 4647 1{tbl} Take 1 U nivers -acetaminop 07-03 tablet by it y of hen 10-325 00:00: 00:00 mouth [place] mg tablet 00 :00 every 6 Medical (six) Branch hours as needed for Pain (scale 7-10) for up to 7 days. Indication s: acute pain methocarbam 2021-06- No [id number] 500mg Take 1 [facility] oL 500 mg 07-03 tablet by ity of tablet 00:00: 00:00 [...] Yes 2.5mg 2.5 mg, Uni vers (NORVASC) 1-14 Oral, ity of tablet 2.5 15:00: DAILY, [place] mg 00 First dose Medical on Fri Branch 04/29/22 at 0900, Until Discontinu ed, Routine metoprolol 2021-06 Yes 12.5mg 12.5 mg, U nivers succinate -09 Oral, BID, ity of XL (TOPROL 14:00: First dose [place] XL) tablet 00 (after Medical 12.5 mg last Branch modificati on) on Fri04/24/22 at 0800, Until Discontinu ed, Routine apixaban 2021-06 Yes 2.5mg 2.5 mg, Unive rs (ELIQUIS) 1-07 Oral, BID, ity of tablet 2.5 14:00: First dose [place] mg 00 on Fri Medical 04/22/22 at Branch 0800, Until Discontinu ed, Routine
Indicatio ns: VTE Prophylaxi s (For Total Hip Arthroplas ty Only) pantoprazol 2021-06 Yes 40mg 40 mg, Univ ers e 1-06 Oral, ity of (PROTONIX) 15:00: DAILY, [place] EC tablet 00 First dose Medi tom 40 mg on Fri Branch 04/21/22 at 0900, Until Discontinu ed, [...] [place] mL) - Starting Medical dialysis on [facility] Branch catheter 04/18/22 at care 0843, Until [...] ed, Routine, Pain (scale 7-10) morpHINE (2 2021-2021- No 2mg 2 mg, Slow Univers mg/mL) [...] 1 Medical 25 mcg dose, On Branch Fri04/16/22 at 2315, Routine methocarbam 2021-06 Yes 500mg [...] mg 00 (after Medical tablet 1 last Branch tablet modificati on) on Fri04/16/22 at 1600, [...] mg 00 (after Medical tablet 1 last Branch tablet modificati on) on Fri04/16/22 at 1600, Until Discontinu ed, Routine heparin 2021-06 Yes 2000U PRN - SEE Univ ers 1,000 1- INSTRUCTIO ity of unit/mL (10 00:41: NS, [place] mL) - 13 Starting Medical dialysis on [facility] catheter 04/15/22 care at 1941, Until Discontinu ed, Routine
For Priming of Ports:&nbs p; &n bsp; After initial saline flush, prime each port with heparin according to the priming volume listed on each catheter port for catheter lock.
diphenhydrA 2021-06- No 25mg 25 mg, Uni vers MINE 004-14 Oral, ity of (BENADRYL) 13:15: 14:00 ONCE, 1 [place] as tablet 25 00 :00 dose, On Medica l mg [facility] 04/14/22 at 0815, Routine NaCl 0.9% 2021-06- No 5mL 5 mL, Slow U nivers (NS) 04-12 IV Push, ity of injection 5 15:00: 15:00 ONCE, 1 [place] mL 00 :00 dose, On Medical Fri [place] 04/12/22 at 1000, Routine calcium 2021-06- No 1g 1 g, IV Univer s gluconate 1 04-12 Infusion, it y of g in NaCl 13:45: 19:06 at 100 [place] 50 mL 00 :00 mL/hr Medical (ISO-OSM) Administer Bran ch RTU IV over 30 infusion 1 Minutes, g ONCE, 1 dose, On Fri04/12/22 at 0845, Routine polyethylen 2021-06 Yes 17g 17 g, Unive rs e glycol 0- Oral, ity of 3350 powder 12:58: [id number], [place] 17 g 09 Starting Medical on Fri [place] 04/12/22 at 0758, Until Discontinu ed, Routine, no bm polyethylen 2021-06 Yes 17g 17 g, Unive rs e glycol 0-28 Oral, ity of 3350 powder 12:58: [id number], [place] 17 g 09 Starting Medical on Fri [place] 04/12/22 at 0758, Until Discontinu ed, Routine, no bm FENTanyl 2021-06- No Patient Unive rs 1000 004-16 [place] ity of mcg/100 mL 07:00: 20:48 Dose: 10 [place] 0.9% NaCl 00 :19 mcg
Loc Medi tom [employer] kout Branch Interval: 7 Minutes
Basal Rate: 0 mcg/hr<BR& gt;Four Hour Dose Limit: 200 mcg
IV Infusion, 100 mL, CONTINUOUS , Starting on Fri04/12/22 at 0200, Until Fri04/16/22 at 1548 naloxone 2021-06 Yes .1mg 0.1 mg, Univer s (NARCAN) 0-28 Slow IV ity of injection 05:49: Push, [place] 0.1 mg 38 SEE-INSTRU Medical CTIONS, Branch Starting on Fri04/12/22 at 0049, Until Discontinu ed, Routine naloxone 2021-06 Yes .1mg 0.1 mg, Univer s (NARCAN) 0-28 Slow IV ity of injection 05:49: Push, [place] 0.1 mg 38 SEE-INSTR Medical CTIONS, Branch Starting on Fri04/12/22 at 0049, Until Discontinu ed, Routine HYDROmorpho 2021-06- No .2mg 0.2 mg, Un bruno ne 0-28 10- Slow IV ity of (DILAUDID) 05:00: 04:41 [...] Medica l last Branch modificati on) on [place] 04/11/22 at 1999, Until Discontinu ed, Routine losartan 2021-06 Yes 50mg 50 mg, Univers (COZAAR) 0-28 Oral, BID, ity o f tablet 50 01:00: First dose [place] mg 00 (after Medical last Branch modificati on) on [place] 04/11/22 at 1999, Until Discontinu ed, Routine felodipine 2021-06 Yes 5mg 5 mg, Univer s (PLENDIL) 0-28 Oral, BID, ity of 24 hr 01:00: First dose [place] tablet 5 mg 00 (after Medica l last Branch modificati on) on [place] 04/11/22 at 1999, Until Discontinu ed, Routine losartan 2021-06 Yes 50mg 50 mg, Univers (COZAAR) 0-28 Oral, BID, ity o f tablet 50 01:00: First dose [place] mg 00 (after Medical last Branch modificati on) on [place] 04/11/22 at 1999, Until Discontinu ed, Routine heparin 2021-06 Yes [...] INITIAL INFUSION RATE.&nbsp ; _ &nb sp;FOR [facility] ONLY &nbs p; - aPTT < [...] 2021-06- No 1300U/h 1,300 Unive rs 25,000 0-27 11-04 Units/hr ity of Units/250 21:43: 17:04 [...] INITIAL INFUSION RATE.&nbsp ; _ &nb sp;[facility], AND [facility] ONLY &nbs p; - aPTT [...] Yes 40mg 40 mg, Univ ers e 0-27 Slow IV ity of (PROTONIX) 15:00: Push, [place] injection 00 Q24H, Medical 40 mg First dose Branch on [place] 04/11/22 at 1000, Until Discontinu ed pantoprazol 2021-06 Yes 40mg 40 mg, Univ ers e 0 Slow IV ity of (PROTONIX) 15:00: Push, [...] e, Dosing and Testing: &nbs p;FOR [place], [facility], AND [facility] ONLY - aPTT < 35: & [...] reached.&n bsp;&n bsp; ____ &amp ;nbsp;&nbs p;FOR [facility] ONLY - aPTT < 40: & [...]
heparin 2021-06- No 3000U FOR Univers (1,000 0-27 11-07 REBOLUSING ity of unit/mL, 10 11:00: 13:48 , Starting [place] mL vial) 00 :21 on [facility] Medical for 04/11/22 Branch Rebolusing at 0600, Until 04/22/22 at 0748, Routine
Dosing based on aPPT testing parameters (refer to continuous heparin drip order).
heparin 2021-06- No 500U/h 500 Univers 25,000 0-27 10-27 Units/hr ity of Units/250 11:00: 21:43 (5 [...] e, Dosing and Testing: &nbs p;FOR [place], [facility], AND [facility] ONLY - aPTT < [...] 0.5-2 U nivers ne 10 mg in 10- /min mcg/kg/min i ty of NaCl 0.9% [...] s vasopresso r at a time.
phenylephri 2021-06 No .5ug/kg 0.5-2 U nivers ne 10 mg in 0-27 10-28 /min mcg/kg/min i ty of NaCl 0.9% [...] vasopresso r at a time.
propofoL IV 2021-06 No 5ug/kg/ 5-50 Un bruno infusion 0-27 [...] be discarded after 12 hours.
propofoL IV 2022-1 2022- No IV Unive rs infusion 0-27 10- Infusion, ity o f 04:21: 05:38 ONCE INTRA [place] 00 :45 PROCEDURE, Medical Starting Branch on Fri04/10/22 at 2321, Until Discontinu ed, Routine, Intra-op propofoL IV 2021-06- No IV Unive rs infusion 0 10- Infusion, ity o f 04:21: 05:38 ONCE INTRA [place] 00 :45 PROCEDURE, Medical Starting Branch on Fri04/10/22 at 2321, Until Discontinu ed, Routine, Intra-op calcium 2021-06- No Intravenou Uni vers chloride 0- 10-27 s, ONCE ity of 100 mg/mL 03:50: 05:38 INTRA [place] (10 %) 00 :45 PROCEDURE, Medical syringe Starting Branch on Fri04/10/22 at 2250, Until Discontinu ed, Routine, Intra-op desmopressi 2021-06- No Intravenou Univers n (DDAVP) 0 10- s, ONCE ity of injection 03:11: 05:38 INTRA [place] 00 :45 PROCEDURE, Medical Starting Branch on Fri04/10/22 at 2211, Until Discontinu ed, Routine, Intra-op iodixanoL 2021-06- No PRN, Univers (VISIPAQUE 0- Starting ity of 270-150 mL) 03:09: 05:19 [...] cisatracuri 2021-06- No Intravenou Univers um (NIMBEX) 0- 10-27 s, ONCE ity of injection 02:54: 05:38 INTRA [place] 00 :45 PROCEDURE, Medical Starting Branch on Fri04/10/22 at 2154, Until Discontinu ed, Routine, Intra-op Transfuse 2021-06- No Routine Univ ers Packed RBC 0-27 10-27 ity of (in 02:41: 05:38 [place] units)~On 01 :45 Medical hold for Branch procedure; 04/10 11 AM; Infuse Each Unit Over: 2 Hours NaCl 0.9% 2021-06- No IV Univers (NS) IV 04-11 Infusion, ity of infusion 02:35: 05:38 [place]INUOUS [place] 00 :[place] PRN, Medical Starting Branch on Fri04/10/22 at 2135, Until Discontinu ed, Routine, Intra-op protamine 2021-06- No Intravenou U nivers injection 04-11 s, ONCE ity of 02:02: 05:38 INTRA [place] 00 :45 PROCEDURE, Medical Starting Branch on Fri04/10/22 at 2102, Until Discontinu ed, Routine, Intra-op vancomycin 2021-06- No PRN, Univer s (VANCOCIN) 04-11 Starting ity of 1 g in 01:17: 05:19 on [facility] sodium 00 :24 04/10/22 Medical chloride at 2017, Branch 0.9 % Until [place] irrigation 04/11/22 at 0019, 1,000 mL, Intra-op thrombin 2021-06- No PRN, Univers (recombinan 04-11 Starting ity of t) 01:17: 05:19 on Fri [place] (RECOTHROM) 00 :24 04/10/22 Medi tom topical at 2017, Branch solution Until [place] 04/11/22 at 0019, Routine, Intra-op albumin 2021-06- No IV Univers (ALBUTEIN 5 04-11 Infusion, it y of %) 5 % 23:51: 05:38 [place]OUS [place] injection 00 :45 PRN, Medical Starting Branch on [facility] 04/10/22 at 1851, Until Discontinu ed, Intra-op heparin 2021-06- No ONCE INTRA Uni vers (1,000 04-11 PROCEDURE, ity of unit/mL, 10 23:13: 05:38 [place] mL vial) 00 :45 on [facility] 04/10/22 Branch at 1813, Until [...] No Intravenou U nivers 25 mg/5 mL 04-11 s, ONCE ity o f (5 mg/mL) 19:45: 05:38 INTRA [place] syringe 00 :45 PROCEDURE, Medica l Starting Branch on Fri04/10/22 at 1445, Until Discontinu ed, Routine, Intra-op dexamethaso 2021-06- No IV Push, U nivers ne 04-11 ONCE INTRA ity of (DECADRON 19:33: 05:38 [...] lactated 2021-06- No IV Univers ringers IV 04-11 Infusion, ity of infusion 19:11: 05:38 CONTINUOUS [place] 00 :[place] PRN, Medical Starting Branch on Fri04/10/22 at 1411, Until Discontinu ed, Routine, Intra-op HYDROmorphO 2021-06- No Slow IV Un bruno ne 0- Push, ONCE ity of (DILAUDID) 19:11: 05:38 INTRA [place] injection 00 :45 PROCEDURE, Medi tom Starting Branch on Fri04/10/22 at 1411, Until Discontinu ed, Routine, Intra-op rocuronium 2021-06- No IV Push, Un bruno (ZEMURON) 0- ONCE INTRA ity of injection 19:11: 05:38 PROCEDURE, [place] 00 :45 Starting Medical on Fri Branch 04/10/22 at 1411, Until Discontinu ed, Routine, Intra-op propofoL IV 2021-06- No Intravenou Univers infusion 0- s, ONCE ity of 19:11: 05:38 INTRA [place] 00 :45 PROCEDURE, Medical Starting Branch on Fri04/10/22 at 1411, Until Discontinu ed, Routine, Intra-op FENTanyl PF 2021-06- No Intravenou Univers (SUBLIMAZE 0-27 s, ONCE ity o f (PF)) 19:11: 05:38 INTRA [place] injection 00 :45 PROCEDURE, Medi tom Starting Branch on Fri04/10/22 at 1411, Until Discontinu ed, Routine, Intra-op lidocaine 2021-06- No Intravenou U nivers 1% 0- s, ONCE ity of (XYLOCAINE) 19:11: 05:38 INTRA [place] 100 mg/10 00 :45 PROCEDURE, [facility] tom mL (1 %) Starting Branch injection on Fri04/10/22 at 1411, Until Discontinu ed, Routine, Intra-op scopolamine 2021-06- No Topical, U nivers transdermal 004-11 Administer i ty of (TRANSDERM- 17:22: 05:38 over 72 [place] SCOP) patch 00 :45 Hours, Medica l ONCE INTRA Branch PROCEDURE, Starting on Fri04/10/22 at 1222, Until Discontinu ed, Routine, Intra-op heparin 2021-06- No PRN, Univers 10,000 0-04-11 Starting ity of units in NS 17:00: 05:19 on Fri [place] Alberto as 1000 mL for 00 :24 04/10/22 Medi tom vascular at 1200, Branch Intra-op heparin 2021-06 Yes 2000U PRN - SEE Univ ers 1,000 0-26 INSTRUCTIO ity of unit/mL ( 13:30: NS, [place] mL) - Starting Medical dialysis on [facility] Branch catheter 04/10/22 care at 0830, Until Discontinu ed, Routine
For Priming of Ports:&nbs p; &n bsp; After initial saline flush, prime each port with heparin according to the priming volume listed on each catheter port for catheter lock.
heparin 2021-06 Yes 2000U PRN - SEE Univ ers 1,000 0-26 INSTRUCTIO ity of unit/mL ( 13:30: NS, [place] mL) - Starting Medical dialysis on [facility] Branch catheter 04/10/22 care at 0830, Until Discontinu ed, Routine
For Priming of Ports:&nbs p; &n bsp; After initial saline flush, prime each port with heparin according to the priming volume listed on each catheter port for catheter lock.
lidocaine 2021-06- No .3mL 0.3 mL, Univ ers 1% (PF) 0-04-08 Infiltrati ity o f (XYLOCAINE) 20:14: 20:20 on, [place] injection 00 :00 DIALYSIS Medica l 0.3 mL ONCE PRN - Branch CHELSEA DSU, 1 dose, Starting on Fri04/08/22 at 1514, Until Fri04/08/22 at 1520, Routine, Surgery/Pr ocedure aspirin 2021-06 Yes 81mg 81 mg, Univers chewable 0-24 Oral, ity of tablet 81 15:30: DAILY, [place] mg 00 First dose Medical on Fri Branch 04/08/22 at 1030, Until Discontinu ed, Routine aspirin 2021-06 Yes 81mg 81 mg, Univers chewable 0-24 Oral, ity of tablet 81 15:30: DAILY, [place] mg 00 First dose Medical on Fri Branch 04/08/22 at 1030, Until Discontinu ed, Routine aspirin 2021-06 Yes 81mg 81 mg, Univers chewable 0-24 Oral, ity of tablet 81 15:30: DAILY, [place] mg 00 First dose Medical on [facility] 04/08/22 at 1030, Until Discontinu ed, Routine aspirin 2021-06 Yes 81mg 81 mg, Univers chewable 0-24 Oral, ity of tablet 81 15:30: DAILY, [place] mg 00 First dose Medical on [facility] 04/08/22 at 1030, Until Discontinu ed, Routine iopamidol 2021-06- No PRN, Univers (ISOVUE 0-24 - Starting ity of 370-500 mL) 14:59: 15:37 on Fri Luis Alberto as injection 00 :17 04/08/22 Medica l at 0959, Branch Until [facility] 04/08/22 at 1037, Routine, Intra-op lidocaine 2021-06- No PRN, Univers 1% (PF) 0-04-08 Starting ity of (XYLOCAINE) 14:09: 15:37 on Fri [facility] as injection 00 :17 04/08/22 Medica l at 0909, Branch Until [facility] 04/08/22 at 1037, Routine, Intra-op heparin 2021-06- No PRN, Univers 10,000 0-04-08 Starting ity of units in NS 12:53: 15:37 on Fri [facility] as 1000 mL for 00 :17 04/08/22 [facility] tom vascular at 0753, Branch Intra-op clopidogreL 2021-06 Yes 75mg 75 mg, Univ ers (PLAVIX) 75 0-23 Oral, ity of mg tablet 14:00: DAILY, [place] 75 mg 00 First dose Medical on [facility] 04/07/22 at 0900, Until Discontinu ed, Routine clopidogreL 2021-06 Yes 75mg 75 mg, Univ ers (PLAVIX) 75 0-23 Oral, ity of mg tablet 14:00: DAILY, [place] 75 mg 00 First dose Medical on [facility] 04/07/22 at 0900, Until Discontinu ed, Routine clopidogreL 2021-06 Yes 75mg 75 mg, Univ ers (PLAVIX) 75 0-23 Oral, ity of mg tablet 14:00: DAILY, [place] 75 mg 00 First dose Medical on [facility] 04/07/22 at 0900, Until Discontinu ed, Routine clopidogreL 2021-06 Yes 75mg 75 mg, Univ ers (PLAVIX) 75 0-23 Oral, ity of mg tablet 14:00: DAILY, [place] 75 mg 00 First dose Medical on [place] Branch 04/07/22 at 0900, Until Discontinu ed, Routine metoprolol 2021-06 Yes 25mg 25 mg, Unive rs succinate 0-23 Oral, BID, ity of XL (TOPROL 13:00: First dose [place] XL) tablet 00 on [place] [facility] 25 mg 04/07/22 Branch at 0800, Until Discontinu ed, Routine metoprolol 2021-06 Yes 25mg 25 mg, Unive rs succinate 0-23 Oral, BID, ity of XL (TOPROL 13:00: First dose [place] XL) tablet 00 on [place] [facility] 25 mg 04/07/22 Branch at 0800, Until Discontinu ed, Routine metoprolol 2021-06 Yes 25mg 25 mg, Unive rs succinate 0-23 Oral, BID, ity of XL (TOPROL 13:00: First dose [place] XL) tablet 00 on [place] [facility] 25 mg 04/07/22 Branch at 0800, Until Discontinu ed, Routine metoprolol 2021-06- No 25mg 25 mg, Univ ers succinate 0-23 11-09 Oral, BID, ity of XL (TOPROL 13:00: 06:27 First dose [place] XL) tablet 00 :38 on [place] [facility] 25 mg 04/07/22 Branch at 0800, Until Discontinu ed, Routine vancomycin 2021-06 No 15mg/kg 1,000 mg Univers (VANCOCIN) 04-06 (rounded ity of 1,000 mg in 18:45: 19:48 from 1,056 [place] NaCl 0.9% 00 :00 mg = 15 Medical (NS) 250 mL mg/kg Branch VIAL-MATE ?70.4 kg), IV IV piggyback Piggyback, ONCE, 1 dose, On 04/06/22 at 1345, Administer over 60 Minutes, 250 mL
Reas on for Anti-Infec tive: Documented Infection< br>Documen rudolph Infection Site: Skin / Soft Tissue
Duration of Therapy: 7 days sevelamer 2021-06 Yes 800mg 800 mg, Univ ers (RENVELA) 0-22 Oral, TID ity o f tablet 800 13:00: MEALS, [place] mg 00 First dose Medical on Sat Branch 04/06/22 at 0800, Until Discontinu ed, Routine sevelamer 2021-06 Yes 800mg 800 mg, Univ ers (RENVELA) 0-22 Oral, TID ity o f tablet 800 13:00: MEALS, [place] mg 00 First dose Medical on [facility] Branch 04/06/22 at 0800, Until Discontinu ed, Routine sevelamer 2021-06 Yes 800mg 800 mg, Univ ers (RENVELA) 0-22 Oral, TID ity o f tablet 800 13:00: MEALS, [place] mg 00 First dose Medical on [facility] Branch 04/06/22 at 0800, Until Discontinu ed, Routine sevelamer 2021-06 Yes 800mg 800 mg, Univ ers (RENVELA) 0-22 Oral, TID ity o f tablet 800 13:00: MEALS, [place] mg 00 First dose Medical on [facility] Branch 04/06/22 at 0800, Until Discontinu ed, Routine pantoprazol 2021-06- No 20mg 20 mg, Uni vers e 04-06 Oral, ONCE ity of (PROTONIX) 05:45: 05:59 NOW, 1 [place] EC tablet 00 :00 dose, On Medica l 20 mg [facility] Branch 04/06/22 at 0045, Routine ceFEPIme 2021-06- Yes 1000mg 1,000 mg, U nivers (MAXIPIME) 27 IV ity of 1,000 mg in 05:00: 04:59 [place], [place] NaCl 0.9% 00 :00 Q24H ABX, Medic al (NS) 50 mL 5 doses, Branc h MINI-BAG First dose (after last modificati on) on 04/06/22 at 0000, Last dose on Fri04/10/22 at 0000, Administer over 30 Minutes, 50 mL
Reas on for Anti-Infec tive: Empiric Therapy for Suspected Infection< br>Empiric Therapy Site: Skin / Soft tissue
Duration of therapy: 5 days ceFEPIme 2021-06- No 1000mg 1,000 mg, U nivers (MAXIPIME) 04-10 IV ity of 1,000 mg in 05:00: 05:34 Piggyback, [place] NaCl 0.9% 00 :00 Q24H ABX, Medic [...] dose [place] mg 00 on Fri Medical 04/05/22 Branch at 2100, Until Discontinu ed, Routine atorvastati 2021-06 Yes 10mg 10 mg, Univ ers n (LIPITOR) 0-22 Oral, QHS, it y of tablet 10 02:00: First dose [place] mg [address] [facility] 04/05/22 Branch at 2100, Until Discontinu ed, Routine atorvastati 2021-06 Yes 10mg 10 mg, Univ ers n (LIPITOR) 0-22 Oral, QHS, it y of tablet 10 02:00: First dose [place] mg 00 on [facility] 04/05/22 Branch at 2100, Until Discontinu ed, Routine atorvastati 2021-06 Yes 10mg 10 mg, Univ ers n (LIPITOR) 0-22 Oral, QHS, it y of tablet 10 02:00: First dose [place] mg [address] [facility] 04/05/22 Branch at 2100, Until Discontinu ed, Routine losartan 2021-06 Yes 50mg 50 mg, Univers (COZAAR) 0-22 Oral, BID, ity o f tablet 50 01:00: First dose [place] mg 00 on [facility] 04/05/22 Branch at 2000, Until Discontinu ed, Routine felodipine 2021-06 Yes 5mg 5 mg, Univer s (PLENDIL) 0-22 Oral, BID, ity of 24 hr 01:00: First dose [place] tablet 5 mg 00 on [facility] 04/05/22 Branch at 2000, Until Discontinu ed, Routine docusate 2021-06 Yes 100mg 100 mg, Unive rs (COLACE) 0-22 Oral, BID, ity o f capsule 100 01:00: First dose [place] mg 00 (after Medical last Branch modificati on) on Fri04/05/22 at 2000, Until Discontinu ed, Routine docusate 2021-06 Yes 100mg 100 mg, Unive rs (COLACE) 0-22 Oral, BID, ity o f capsule 100 01:00: First dose [place] mg 00 (after Medical last Branch modificati on) on Fri04/05/22 at 2000, Until Discontinu ed, Routine docusate 2021-06 Yes 100mg 100 mg, Unive rs (COLACE) 0-22 Oral, BID, ity o f capsule 100 01:00: First dose [place] mg 00 (after Medical last Branch modificati on) on Fri04/05/22 at 2000, Until Discontinu ed, Routine docusate 2021-06 Yes 100mg 100 mg, Unive rs (COLACE) 0- Oral, BID, ity o f capsule 100 01:00: First dose [place] mg 00 (after Medical last Branch modificati on) on Fri04/05/22 at 1999, Until Discontinu ed, Routine losartan 2021-06- No 50mg 50 mg, Univer s (COZAAR) 0- 10- Oral, BID, ity of tablet 50 01:00: 13:17 First dose [place] mg 00 :23 on Fri Medical 04/05/22 Branch at 1999, Until Discontinu ed, Routine felodipine 2021-06- No 5mg 5 mg, Unive rs (PLENDIL) 0-27 Oral, BID, ity of 24 hr 01:00: 13:17 First dose [place] tablet 5 mg 00 :23 on Fri Medica l 04/05/22 Branch at 1999, Until Discontinu ed, Routine ergocalcife 2021-06 Yes [id number] 50,000 Un bruno rol 0-21 Units, ity of (vitamin 23:30: Oral, [place] d2) 00 QWEEKLY, Medical (CALCIFEROL First dose Br anch ) capsule on Fri04/05/22 Units at 1830, Until Discontinu ed, Routine ergocalcife 2021-06 Yes [id number] 50,000 Un bruno rol 0-21 Units, ity of (vitamin 23:30: Oral, [place] d2) 00 QWEEKLY, Medical (CALCIFEROL First dose Br anch ) capsule on Fri04/05/22 Units at 1830, Until Discontinu ed, Routine ergocalcife 2021-06 Yes [id number] 50,000 Un bruno rol 0-21 Units, ity of (vitamin 23:30: Oral, [place] d2) 00 QWEEKLY, Medical (CALCIFEROL First dose Br anch ) capsule on Fri04/05/22 Units at 1830, Until Discontinu ed, Routine ergocalcife 2021-06 Yes [id number] 50,000 Un bruno rol 0-21 Units, ity of (vitamin 23:30: Oral, [place] d2) 00 QWEEKLY, Medical (CALCIFEROL First dose Br anch ) capsule on Fri 50,000 10/21/22 Units at 1830, Until Discontinu ed, Routine lidocaine 2021-06 No .3mL 0.3 mL, Univ ers 1% (PF) 04-05 Infiltrati ity o f (XYLOCAINE) 14:00: 18:35 on, [place] injection 00 :00 DIALYSIS Medica l 0.3 mL ONCE - PT Branch ROOM, 1 dose, On Fri04/05/22 at 0900, Routine vancomycin 2021-06- No 15mg/kg 1,000 mg Univers (VANCOCIN) 04-05 (rounded ity of 1,000 mg in 09:15: 11:07 from 1,110 [place] NaCl 0.9% 00 :03 mg = 15 Medical (NS) 250 mL mg/kg ?74 [facility] VIAL-MATE kg), IV IV Piggyback, piggyback ONCE, 1 dose, On Fri04/05/22 at 0415, Administer over 60 Minutes, 250 mL
Reas on for Anti-Infec tive: Empiric Therapy for Suspected Infection< br>Empiric Therapy Site: Skin / Soft tissue
Duration of therapy: 5 days piperacilli 2021-06 No 3.375g 3.375 g, Univers n-tazobacta 04-05 [...] Subcutaneo ity o f (LANTUS 02:00: us, [facility], [place] U-100) 00 First dose Medical injection [...] Subcutaneo ity o f (LANTUS 02:00: us, [facility], [place] U-100) 00 First dose Medical injection on [...] Subcutaneo ity o f (LANTUS 02:00: us, [facility], [place] U-100) 00 First dose Medical injection on [...] Subcutaneo ity o f (LANTUS 02:00: us, [facility], [place] U-100) 00 First dose Medical injection on [place] Branch 15 Units 04/04/22 at 2100, Until Discontinu ed, Routine apixaban 2021-06- No 2.5mg 2.5 mg, Univ ers (ELIQUIS) 0-04-06 Oral, BID, ity of tablet 2.5 01:00: 06:23 First dose [place] mg 00 :22 on [place] [facility] 04/04/22 Branch at 2000, Until Discontinu ed, Routine
Indicatio ns: Non-Valvul ar Atrial Fibrillati on HYDROcodone 2021-06 Yes 1{tbl} 1 tablet, Univers -acetaminop 0-20 Oral, ity of hen (NORCO) 23:48: Q6HPRN, [place] as 10-325 mg 03 Starting Medica l tablet 1 on [facility] tablet 04/04/22 at 1848, Until Discontinu ed, Routine, Pain (scale 7-10) HYDROcodone 2021-06 Yes 1{tbl} 1 tablet, Univers -acetaminop 0-20 Oral, ity of hen (NORCO) 23:48: Q6HPRN, [place] as 10-325 mg 03 Starting Medica l tablet 1 on [facility] tablet 04/04/22 at 1848, Until Discontinu ed, Routine, Pain (scale 7-10) HYDROcodone 2021-06 No 1{tbl} 1 tablet, Univers -acetaminop 0-20 11-01 Oral, ity of hen (NORCO) 23:48: 20:48 Q6HPRN, [place] 10-325 mg 03 :20 Starting Medica l tablet 1 on [facility] tablet 04/04/22 at 1848, Until 04/16/22 at 1548, Routine, Pain (scale 7-10) traMADoL 2021-06 50mg 50 mg, Univer s (ULTRAM) 0-20 04-06 Oral, ity of tablet 50 23:48: 23:47 Q8HPRN, [place] mg 00 :00 Starting Medical on [facility] Branch 04/04/22 at 1848, Until 04/06/22 at 1847, Routine, Pain (scale 4-6) acetaminoph 2021-06 Yes 650mg 650 mg, Un bruno en 0-20 Oral, ity of (TYLENOL) 23:47: Q6HPRN, [place] tablet 650 56 Starting Medic al mg on [facility] Branch 04/04/22 at 1847, Until Discontinu ed, Routine, Pain (scale 1-3) acetaminoph 2021-06 Yes 650mg 650 mg, Un bruno en 0-20 Oral, ity of (TYLENOL) 23:47: Q6HPRN, [place] tablet 650 56 Starting Medic al mg on [place] Branch 04/04/22 at 1847, Until Discontinu ed, Routine, Pain (scale 1-3) acetaminoph 2021-06 Yes 650mg 650 mg, Un bruno en 0-20 Oral, ity of (TYLENOL) 23:47: Q6HPRN, [place] tablet 650 56 Starting Medic al mg on [facility] Branch 04/04/22 at 1847, Until Discontinu ed, Routine, Pain (scale 1-3) acetaminoph 2021-06 Yes 650mg 650 mg, Un bruno en 0-20 Oral, ity of (TYLENOL) 23:47: Q6HPRN, [place] tablet 650 56 Starting Medic al mg on [facility] Branch 04/04/22 at 1847, Until Discontinu ed, Routine, Pain (scale 1-3) glucagon 2021-06 Yes 1mg 1 mg, Univers (GLUCAGEN 0-20 Intramuscu ity of DIAGNOSTIC 23:44: lar, PRN, [place] KIT) 11 Starting Medical injection 1 on [facility] 04/04/22 at 1844, Until Discontinu ed, GASPER, Blood Glucose < or = 70 mg/dL and patient is unable to swallow or has mental changes. dextrose 50 2021-06 Yes 25mL 25 mL, Univ ers % in water 0-20 Slow IV ity of (D50W) 23:44: Push, PRN, [place] injection 11 Starting Medica l 25 mL on [facility] 04/04/22 at 1844, Until Discontinu ed, GASPER, Blood Glucose < or = 70 mg/dL and patient is unable to swallow or has mental status changes. glucagon 2021-06 Yes 1mg 1 mg, Univers (GLUCAGEN 0-20 Intramuscu ity of DIAGNOSTIC 23:44: lar, PRN, [place] KIT) 11 Starting Medical injection 1 on [facility] 04/04/22 at 1844, Until Discontinu ed, GASPER, [...] by mouth ity of tablet 17:22: daily. [place] [address] Medical Branch Cholecalcif 2021-06 Yes 1{tbl} Take 1 Un bruno julito, 0-20 tablet by ity of Vitamin D3, 17:22: mouth [place] 125 mcg 49 daily. Medical (5,000 Branch unit) tablet aspirin 81 2021-06 Yes 81mg Take 81 mg U nivers mg chewable 0-20 by mouth ity of tablet 17:22: daily. [address] Branch Cholecalcif 2021-06 Yes 1{tbl} Take 1 Un bruno julito, 0-20 tablet by ity of Vitamin D3, 17:22: mouth [place] 125 mcg 49 daily. Medical (5,000 Branch unit) tablet aspirin 81 2021-06 Yes 81mg Take 81 mg U nivers mg chewable 0-20 by mouth ity of tablet 17:22: daily. [place] [address] Medical Branch Cholecalcif 2021-06 Yes 1{tbl} Take 1 Un bruno julito, 0-20 tablet by ity of Vitamin D3, 17:22: mouth [place] 125 mcg 49 daily. Medical (,000 Branch unit) tablet aspirin 81 2021-06 Yes 81mg Take 81 mg U nivers mg chewable 0-20 by mouth ity of tablet 17:22: daily. [place] [address] Medical Branch Cholecalcif 2021-06 Yes 1{tbl} Take 1 Un bruno julito, 0-20 tablet by ity of Vitamin D3, 17:22: mouth [place] 125 mcg 49 daily. Medical (5,000 Branch unit) tablet aspirin 81 2021-06 Yes 81mg Take 81 mg U nivers mg chewable 0-20 by mouth ity of tablet 17:22: daily. [address] Branch Cholecalcif 2021-06 Yes 1{tbl} Take 1 Un bruno julito, 0-20 tablet by ity of Vitamin D3, 17:22: mouth [place] 125 mcg 49 daily. Medical (5,000 Branch unit) tablet aspirin 81 2021-06 Yes 81mg Take 81 mg U nivers mg chewable 0-20 by mouth ity of tablet 17:22: daily. [place] 49 Medical Branch Cholecalcif 2021-06 Yes 1{tbl} Take 1 Un bruno julito, 0-20 tablet by ity of Vitamin D3, 17:22: mouth [place] 125 mcg 49 daily. Medical (5,000 Branch unit) tablet HYDROcodone 2021-06- No 1{tbl} 1 tablet, Univers -acetaminop 0-14 10-14 Oral, ity of hen (NORCO) 22:30: 21:45 ONCE, 1 [place] 10-325 mg 00 :00 dose, On Medica l tablet 1 Fri Branch tablet 03/29/22 at 1730, Routine sulfamethox 2021-06 Yes [id number] 1{tbl} Take 1 Univers azole-trime 0-14 tablet by ity of thoprim 00:00: mouth [place] 400-80 mg 00 every 12 Medica l per tablet (twelve) Branc h hours. sulfamethox 2021-06 Yes [id number] 1{tbl} Take 1 Univers azole-trime 0-14 tablet by ity of thoprim 00:00: mouth [place] 400-80 mg 00 every 12 Medica l per tablet (twelve) Branc h hours. sulfamethox 2021-06 Yes [id number] 1{tbl} Take 1 Univers azole-trime 0-14 tablet by ity of thoprim 00:00: mouth [place] 400-80 mg 00 every 12 Medica l per tablet (twelve) Branc h hours. sulfamethox 2021-06 Yes [id number] 1{tbl} Take 1 Univers azole-trime 0-14 tablet by ity of thoprim 00:00: mouth [place] 400-80 mg 00 every 12 Medica l per tablet (twelve) Branc h hours. sulfamethox 2021-06 Yes [id number] 1{tbl} Take 1 Univers azole-trime 0-14 tablet by ity of thoprim 00:00: mouth [place] 400-80 mg 00 every 12 Medica l per tablet (twelve) Branc h hours. sulfamethox 2021-06 Yes [id number] 1{tbl} Take 1 Univers azole-trime 0-14 tablet by ity of thoprim 00:00: mouth [place] 400-80 mg 00 every 12 Medica l per tablet (twelve) Branc h hours. sulfamethox 2021-06 Yes [id number] 1{tbl} Take 1 Univers azole-trime 0-14 tablet by ity of thoprim 00:00: mouth [place] 400-80 mg 00 every 12 Medica l per tablet (twelve) Branc h hours. sulfamethox 2021-06 Yes [id number] 1{tbl} Take 1 Univers azole-trime 0-14 tablet by ity of thoprim 00:00: mouth [place] 400-80 mg 00 every 12 Medica l per tablet (twelve) Branc h hours. sulfamethox 2021-06 Yes [id number] 1{tbl} Take 1 Univers azole-trime 0-14 tablet by ity of thoprim 00:00: mouth [place] 400-80 mg 00 every 12 Medica l per tablet (twelve) Branc h hours. sulfamethox 2021-06 Yes [id number] 1{tbl} Take 1 Univers azole-trime 0-14 tablet by ity of thoprim 00:00: mouth [place] 400-80 mg 00 every 12 Medica l per tablet (twelve) Branc h hours. sulfamethox 2021-06 Yes [id number] 1{tbl} Take 1 Univers azole-trime 0-14 tablet by ity of thoprim 00:00: mouth [place] 400-80 mg 00 every 12 Medica l per tablet (twelve) Branc h hours. sulfamethox 2021-06 Yes [id number] 1{tbl} Take 1 Univers azole-trime 0-14 tablet by ity of thoprim 00:00: mouth [place] 400-80 mg 00 every 12 Medica l per tablet (twelve) Branc h hours. sulfamethox 2021-06 Yes [id number] 1{tbl} Take 1 Univers azole-trime 0-14 tablet by ity of thoprim 00:00: mouth [place] 400-80 mg 00 every 12 Medica l per tablet (twelve) Branc h hours. sulfamethox 2021-06 Yes [id number] 1{tbl} Take 1 Univers azole-trime 0-14 tablet by ity of thoprim 00:00: mouth [place] 400-80 mg 00 every 12 Medica l per tablet (twelve) Branc h hours. sulfamethox 2021-06 Yes [id number] 1{tbl} Take 1 Univers azole-trime 0-14 tablet by ity of thoprim 00:00: mouth [place] 400-80 mg 00 every 12 Medica l per tablet (twelve) Branc h hours. sulfamethox 2021-06 Yes [id number] 1{tbl} Take 1 Univers azole-trime 0-14 tablet by ity of thoprim 00:00: mouth [place] 400-80 mg 00 every 12 Medica l per tablet (twelve) Branc h hours. sulfamethox 2021-06 Yes [id number] 1{tbl} Take 1 [facility] azole-trime 0-14 tablet by [facility] of thoprim 00:00: mouth [place] 400-80 mg 00 every 12 Medica l per tablet (twelve) Branc h hours. sulfamethox 2021-06 Yes [id number] 1{tbl} Take 1 [facility] azole-trime 0-14 tablet by ity of thoprim 00:00: mouth [place] 400-80 mg 00 every 12 Medica l per tablet (twelve) Branc h hours. sulfamethox 2021-06 Yes [id number] 1{tbl} Take 1 [facility] azole-trime 0-14 tablet by ity of thoprim 00:00: mouth [place] 400-80 mg 00 every 12 Medica l per tablet (twelve) Branc h hours. sulfamethox 2021-06 Yes [id number] 1{tbl} Take 1 [facility] azole-trime 0-14 tablet by ity of thoprim 00:00: mouth [place] 400-80 mg 00 every 12 Medica l per tablet (twelve) Branc h hours. sulfamethox 2021-06 Yes [id number] 1{tbl} Take 1 [facility] azole-trime 0-14 tablet by ity of thoprim 00:00: mouth [place] 400-80 mg 00 every 12 Medica l per tablet (twelve) Branc h hours. sulfamethox 2021-06 Yes [id number] 1{tbl} Take 1 [facility] azole-trime 0-14 tablet by ity of thoprim 00:00: mouth [place] 400-80 mg 00 every 12 Medica l per tablet (twelve) Branc h hours. sulfamethox 2021-06 Yes [id number] 1{tbl} Take 1 [facility] azole-trime 0-14 tablet by ity of thoprim 00:00: mouth [place] 400-80 mg 00 every 12 Medica l per tablet (twelve) Branc h hours. sulfamethox 2021-06 Yes [id number] 1{tbl} Take 1 [facility] azole-trime 0-14 tablet by ity of thoprim 00:00: mouth [place] 400-80 mg 00 every 12 Medica l per tablet (twelve) Branc h hours. sulfamethox 2021-06 Yes [id number] 1{tbl} Take 1 [facility] azole-trime 0-14 tablet by ity of thoprim 00:00: mouth [place] 400-80 mg 00 every 12 Medica l per tablet (twelve) Branc h hours. sulfamethox 2021-06 Yes [id number] 1{tbl} Take 1 [facility] azole-trime 0-14 tablet by ity of thoprim 00:00: mouth [place] 400-80 mg 00 every 12 Medica l per tablet (twelve) Branc h hours. sulfamethox 2021-06 Yes [id number] 1{tbl} Take 1 [facility] azole-trime 0-14 tablet by ity of thoprim 00:00: mouth [place] 400-80 mg 00 every 12 Medica l per tablet (twelve) Branc h hours. sulfamethox 2021-06 Yes [id number] 1{tbl} Take 1 [facility] azole-trime 0-14 tablet by ity of thoprim 00:00: mouth [place] 400-80 mg 00 every 12 Medica l per tablet (twelve) Branc h hours. sulfamethox 2021-06 Yes [id number] 1{tbl} Take 1 [facility] azole-trime 0-14 tablet by ity of thoprim 00:00: mouth [place] 400-80 mg 00 every 12 Medica l per tablet (twelve) Branc h hours. sulfamethox 2021-06 Yes [id number] 1{tbl} Take 1 [facility] azole-trime 0-14 tablet by ity of thoprim 00:00: mouth [place] 400-80 mg 00 every 12 Medica l per tablet (twelve) Branc h hours. sulfamethox 2021-06 Yes [id number] 1{tbl} Take 1 [facility] azole-trime 0-14 tablet by ity of thoprim 00:00: mouth [place] 400-80 mg 00 every 12 Medica l per tablet (twelve) Branc h hours. sulfamethox 2021-06 Yes [id number] 1{tbl} Take 1 [facility] azole-trime 0-14 tablet by ity of thoprim 00:00: mouth [place] 400-80 mg 00 every 12 Medica l per tablet (twelve) Branc h hours. sulfamethox 2021-06 Yes [id number] 1{tbl} Take 1 [facility] azole-trime 0-14 tablet by ity of thoprim 00:00: mouth [place] 400-80 mg 00 every 12 Medica l per tablet (twelve) Branc h hours. sulfamethox 2021-06 Yes [id number] 1{tbl} Take 1 [facility] azole-trime 0-14 tablet by ity of thoprim 00:00: mouth [place] 400-80 mg 00 every 12 Medica l per tablet (twelve) Branc h hours. sulfamethox 2021-06 Yes [id number] 1{tbl} Take 1 [facility] azole-trime 0-14 tablet by ity of thoprim 00:00: mouth [place] 400-80 mg 00 every 12 Medica l per tablet (twelve) Branc h hours. sulfamethox 2021-06 Yes [id number] 1{tbl} Take 1 [facility] azole-trime 0-14 tablet by ity of thoprim 00:00: mouth [place] 400-80 mg 00 every 12 Medica l per tablet (twelve) Branc h hours. sulfamethox 2021-06 Yes [id number] 1{tbl} Take 1 [facility] azole-trime 0-14 tablet by ity of thoprim 00:00: mouth [place] 400-80 mg 00 every 12 Medica l per tablet (twelve) Branc h hours. sulfamethox 2021-06- No [id number] 1{tbl} Take 1 [facility] azole-trime 0-14 01-04 tablet by it y of thoprim 00:00: 00:00 mouth [place] 400-80 mg 00 :00 every 12 Medica l per tablet (twelve) Branc h hours. cephALEXin 2021-06- No [id number] 500mg Take 1 [facility] (KEFLEX) 0-14 11-18 capsule by ity of 500 mg 00:00: 00:00 mouth in [place] capsule 00 :00 the Medical morning Branch and 1 capsule at noon and 1 capsule in the evening. Do all this for 7 days. cephALEXin 2021-06- No [id number] 500mg Take 1 [facility] (KEFLEX) 0-14 10-22 capsule by ity of 500 mg 00:00: 04:59 mouth in [place] capsule 00 :00 the Medical morning Branch and 1 capsule at noon and 1 capsule in the evening. Do all this for 7 days. cephALEXin 2021-06- No [id number] 500mg Take 1 [facility] (KEFLEX) 0-14 10-22 capsule by ity of 500 mg 00:00: 04:59 mouth in [place] capsule 00 :[address] [facility] morning Branch and 1 capsule at noon and 1 capsule in the evening. Do all this for 7 days. cephALEXin 2021-06- No [id number] 500mg Take 1 [facility] (KEFLEX) 0-14 10-22 capsule by ity of 500 mg 00:00: 04:59 mouth in [place] capsule 00 :[address] [facility] morning Branch and 1 capsule at noon and 1 capsule in the evening. Do all this for 7 days. cephALEXin 2021-06- No [id number] 500mg Take 1 [facility] (KEFLEX) 0-14 10-22 capsule by ity of 500 mg 00:00: 04:59 mouth in [place] capsule 00 :[address] [facility] morning Branch and 1 capsule at [...] (5,000 Branch unit) tablet doxycycline 2021-06- No [id number] 100mg Take 1 [facility] hyclate 100 0-11 11-18 [id number] tablet by ity of mg tablet 00:00: 00:00 mouth in [place] 00 :00 the Medical morning Branch and 1 tablet in the evening. Do all this for 10 days. doxycycline 2021-06- No [id number] 100mg Take 1 [facility] hyclate 100 0-11 10-22 [id number] tablet by ity of mg tablet 00:00: 04:59 mouth in [place] 00 :00 the Medical morning Branch and 1 tablet in the evening. Do all this for 10 days. doxycycline 2021-06- No [id number] 100mg Take 1 [facility] hyclate 100 0-11 10-22 [id number] tablet by ity of mg tablet 00:00: 04:59 mouth in [place] 00 :00 the Medical morning Branch and 1 tablet in the evening. Do all this for 10 days. doxycycline 2021-06- No [id number] 100mg Take 1 [facility] hyclate 100 0-11 10-22 [id number] tablet by ity of mg tablet 00:00: 04:59 mouth in [place] 00 :00 the Medical morning Branch and 1 tablet in the evening. Do all this for 10 days. doxycycline 2021-06- No [id number] 100mg Take 1 [facility] hyclate 100 0-11 10-22 [id number] tablet by ity of mg tablet 00:00: 04:59 mouth in [place] 00 :00 the Medical morning Branch and 1 tablet in the evening. Do all this for 10 days. doxycycline 2021-06- No [id number] 100mg Take 1 [facility] hyclate 100 0-11 10-22 [id number] tablet by ity of mg tablet 00:00: 04:59 mouth in [place] 00 :00 the Medical morning Branch and 1 tablet in the evening. Do all this for 10 days. doxycycline 2021-06- No [id number] 100mg Take 1 [facility] hyclate 100 0-11 10-22 [id number] tablet by ity of mg tablet 00:00: 04:59 mouth in [place] 00 :00 the Medical morning Branch and 1 tablet in the evening. Do all this for 10 days. doxycycline 2021-06- No [id number] 100mg Take 1 [facility] hyclate 100 0-11 10- [id number] tablet by ity of mg tablet 00:00: 04:59 mouth in [place] 00 :00 the Medical morning Branch and 1 tablet in the evening. Do all this for 10 days. doxycycline 2021-06- No [id number] 100mg Take 1 [facility] hyclate 100 0-11 10- [id number] tablet by ity of mg tablet 00:00: 04:59 mouth in [place] 00 :00 the Medical morning Branch and 1 tablet in the evening. Do all this for 10 days. doxycycline 2021-06- No [id number] 100mg Take 1 [facility] hyclate 100 0-11 10- [id number] tablet by ity of mg tablet 00:00: 04:59 mouth in [place] 00 :00 the Medical morning Branch and 1 tablet in the evening. Do all this for 10 days. doxycycline 2021-06- No [id number] 100mg Take 1 [facility] hyclate 100 0-11 10-22 [id number] tablet by ity of mg tablet 00:00: 04:59 mouth in [place] 00 :00 the Medical morning Branch and 1 tablet in the evening. Do all this for 10 days. doxycycline 2021-06- No [id number] 100mg Take 1 [facility] hyclate 100 0-11 10-22 [id number] tablet by ity of mg tablet 00:00: 04:59 mouth in [place] 00 :00 the Medical morning Branch and 1 tablet in the evening. Do all this for 10 days. doxycycline 2021-2021- No [id number] 100mg Take 1 [facility] hyclate 100 04-06 [id number] tablet by ity of mg tablet 00:00: 04:59 mouth in [place] 00 :00 the Medical morning Branch and 1 tablet in the evening. Do all this for 10 days. GLIPIZIDE 5 0 Yes [id number] TAKE 1/2 [facility] mg tablet 9-16 TABLET BY ity o f 00:00: MOUTH [place] 00 EVERY DAY Medical WITH Branch BREAKFAST GLIPIZIDE 5 Yes [id number] TAKE 1/2 [facility] mg tablet 9-16 TABLET BY ity o f 00:00: MOUTH [place] 00 EVERY DAY Medical WITH Branch BREAKFAST GLIPIZIDE 5 Yes [id number] TAKE 1/2 [facility] mg tablet 9-16 TABLET BY ity o f 00:00: MOUTH [place] 00 EVERY DAY Medical WITH Branch BREAKFAST GLIPIZIDE 5 Yes [id number] TAKE 1/2 [facility] mg tablet 9-16 TABLET BY ity o f 00:00: MOUTH [place] 00 EVERY DAY Medical WITH Branch BREAKFAST GLIPIZIDE 5 Yes [id number] TAKE 1/2 [facility] mg tablet 9-16 TABLET BY ity o f 00:00: MOUTH [place] 00 EVERY DAY Medical WITH Branch BREAKFAST GLIPIZIDE 5 Yes [id number] TAKE 1/2 [facility] mg tablet 9-16 TABLET BY ity o f 00:00: MOUTH [place] 00 EVERY DAY Medical WITH Branch BREAKFAST GLIPIZIDE 5 0 Yes [id number] TAKE 1/2 [facility] mg tablet 9-16 TABLET BY ity o f 00:00: MOUTH [place] 00 EVERY DAY Medical WITH Branch BREAKFAST GLIPIZIDE 5 0 Yes [id number] TAKE 1/2 [facility] mg tablet 9-16 TABLET BY ity o f 00:00: MOUTH [place] 00 EVERY DAY Medical WITH Branch BREAKFAST GLIPIZIDE 5 Yes [id number] TAKE 1/2 [facility] mg tablet 9-16 TABLET BY ity o f 00:00: MOUTH [place] 00 EVERY DAY Medical WITH Branch BREAKFAST GLIPIZIDE 5 Yes [id number] TAKE 1/2 [facility] mg tablet 9-16 TABLET BY ity o f 00:00: MOUTH [place] 00 EVERY DAY Medical WITH Branch BREAKFAST GLIPIZIDE 5 2021-0 Yes [id number] TAKE 1/2 [facility] mg tablet 9-16 TABLET BY ity o f 00:00: MOUTH [place] 00 EVERY DAY Medical WITH Branch BREAKFAST GLIPIZIDE 5 2021-0 Yes [id number] TAKE 1/2 [facility] mg tablet 9-16 TABLET BY ity o f 00:00: MOUTH [place] 00 EVERY DAY Medical WITH Branch BREAKFAST GLIPIZIDE 5 2021-0 Yes [id number] TAKE 1/2 [facility] mg tablet 9-16 TABLET BY ity o f 00:00: MOUTH [place] 00 EVERY DAY Medical WITH Branch BREAKFAST GLIPIZIDE 5 2021-0 Yes [id number] TAKE 1/2 [facility] mg tablet 9-16 TABLET BY ity o f 00:00: MOUTH [place] 00 EVERY DAY Medical WITH Branch BREAKFAST GLIPIZIDE 5 2021-0 Yes [id number] TAKE 1/2 [facility] mg tablet 9-16 TABLET BY ity o f 00:00: MOUTH [place] 00 EVERY DAY Medical WITH Branch BREAKFAST GLIPIZIDE 5 0 Yes [id number] TAKE 1/2 [facility] mg tablet 9-16 TABLET BY ity o f 00:00: MOUTH [place] 00 EVERY DAY Medical WITH Branch BREAKFAST GLIPIZIDE 5 0 Yes [id number] TAKE 1/2 [facility] mg tablet 9-16 TABLET BY ity o f 00:00: MOUTH [place] 00 EVERY DAY Medical WITH Branch BREAKFAST GLIPIZIDE 5 0 Yes [id number] TAKE 1/2 [facility] mg tablet 9-16 TABLET BY ity o f 00:00: MOUTH [place] 00 EVERY DAY Medical WITH Branch BREAKFAST GLIPIZIDE 5 2021-0 Yes [id number] TAKE 1/2 [facility] mg tablet 9-16 TABLET BY ity o f 00:00: MOUTH [place] 00 EVERY DAY Medical WITH Branch BREAKFAST GLIPIZIDE 5 2021-0 Yes [id number] TAKE 1/2 [facility] mg tablet 9-16 TABLET BY ity o f 00:00: MOUTH [place] 00 EVERY DAY Medical WITH Branch BREAKFAST GLIPIZIDE 5 2021-0 Yes [id number] TAKE 1/2 [facility] mg tablet 9-16 TABLET BY ity o f 00:00: MOUTH [place] 00 EVERY DAY Medical WITH Branch BREAKFAST GLIPIZIDE 5 2021-0 Yes [id number] TAKE 1/2 [facility] mg tablet 9-16 TABLET BY ity o f 00:00: MOUTH [place] 00 EVERY DAY Medical WITH Branch BREAKFAST GLIPIZIDE 5 2021-0 Yes [id number] TAKE 1/2 [facility] mg tablet 9-16 TABLET BY ity o f 00:00: MOUTH [place] 00 EVERY DAY Medical WITH Branch BREAKFAST GLIPIZIDE 5 2021-0 Yes [id number] TAKE 1/2 [facility] mg tablet 9-16 TABLET BY ity o f 00:00: MOUTH [place] 00 EVERY DAY Medical WITH Branch BREAKFAST GLIPIZIDE 5 2021-0 Yes [id number] TAKE 1/2 [facility] mg tablet 9-16 TABLET BY ity o f 00:00: MOUTH [place] 00 EVERY DAY Medical WITH Branch BREAKFAST GLIPIZIDE 5 2021-0 Yes [id number] TAKE 1/2 [facility] mg tablet 9-16 TABLET BY ity o f 00:00: MOUTH [place] 00 EVERY DAY Medical WITH Branch BREAKFAST GLIPIZIDE 5 2021-0 Yes [id number] TAKE 1/2 [facility] mg tablet 9-16 TABLET BY ity o f 00:00: MOUTH [place] 00 EVERY DAY Medical WITH Branch BREAKFAST GLIPIZIDE 5 0 Yes [id number] TAKE 1/2 [facility] mg tablet 9-16 TABLET BY ity o f 00:00: MOUTH [place] 00 EVERY DAY Medical WITH Branch BREAKFAST GLIPIZIDE 5 0 Yes [id number] TAKE 1/2 [facility] mg tablet 9-16 TABLET BY ity o f 00:00: MOUTH [place] 00 EVERY DAY Medical WITH Branch BREAKFAST GLIPIZIDE 5 0 Yes [id number] TAKE 1/2 [facility] mg tablet 9-16 TABLET BY ity o f 00:00: MOUTH [place] 00 EVERY DAY Medical WITH Branch BREAKFAST GLIPIZIDE 5 2021-0 Yes [id number] TAKE 1/2 [facility] mg tablet 9-16 TABLET BY ity o f 00:00: MOUTH [place] 00 EVERY DAY Medical WITH Branch BREAKFAST GLIPIZIDE 5 2021-0 Yes [id number] TAKE 1/2 [facility] mg tablet 9-16 TABLET BY ity o f 00:00: MOUTH [place] 00 EVERY DAY Medical WITH Branch BREAKFAST GLIPIZIDE 5 2021-0 Yes [id number] TAKE 1/2 [facility] mg tablet 9-16 TABLET BY ity o f 00:00: MOUTH [place] 00 EVERY DAY Medical WITH Branch BREAKFAST GLIPIZIDE 5 2021-0 Yes [id number] TAKE 1/2 [facility] mg tablet 9-16 TABLET BY ity o f 00:00: MOUTH [place] 00 EVERY DAY Medical WITH Branch BREAKFAST GLIPIZIDE 5 2021-0 Yes [id number] TAKE 1/2 [facility] mg tablet 9-16 TABLET BY ity o f 00:00: MOUTH [place] 00 EVERY DAY Medical WITH Branch BREAKFAST GLIPIZIDE 5 2021-0 Yes [id number] TAKE 1/2 [facility] mg tablet 9-16 TABLET BY ity o f 00:00: MOUTH [place] 00 EVERY DAY Medical WITH Branch BREAKFAST GLIPIZIDE 5 2021-0 Yes [id number] TAKE 1/2 [facility] mg tablet 9-16 TABLET BY ity o f 00:00: MOUTH [place] 00 EVERY DAY Medical WITH Branch BREAKFAST GLIPIZIDE 5 2021-0 Yes [id number] TAKE 1/2 [facility] mg tablet 9-16 TABLET BY ity o f 00:00: MOUTH [place] 00 EVERY DAY Medical WITH Branch BREAKFAST GLIPIZIDE 5 2021-0 Yes [id number] TAKE 1/2 [facility] mg tablet 9-16 TABLET BY ity o f 00:00: MOUTH [place] 00 EVERY DAY Medical WITH Branch BREAKFAST GLIPIZIDE 5 0 Yes [id number] TAKE 1/2 [facility] mg tablet 9-16 TABLET BY ity o f 00:00: MOUTH [place] 00 EVERY DAY Medical WITH Branch BREAKFAST GLIPIZIDE 5 0 Yes [id number] TAKE 1/2 [facility] mg tablet 9-16 TABLET BY ity o f 00:00: MOUTH [place] 00 EVERY DAY Medical WITH Branch BREAKFAST GLIPIZIDE 5 2021-0 Yes [id number] TAKE 1/2 [facility] mg tablet 9-16 TABLET BY ity o f 00:00: MOUTH [place] 00 EVERY DAY Medical WITH Branch BREAKFAST GLIPIZIDE 5 2021-0 Yes [id number] TAKE 1/2 [facility] mg tablet 9-16 TABLET BY ity o f 00:00: MOUTH [place] 00 EVERY DAY Medical WITH Branch BREAKFAST GLIPIZIDE 5 2021-0 Yes [id number] TAKE 1/2 [facility] mg tablet 9-16 TABLET BY ity o f 00:00: MOUTH [place] 00 EVERY DAY Medical WITH Branch BREAKFAST GLIPIZIDE 5 2021-0 Yes [id number] TAKE 1/2 [facility] mg tablet 9-16 TABLET BY ity o f 00:00: MOUTH [place] 00 EVERY DAY Medical WITH Branch BREAKFAST GLIPIZIDE 5 2021-0 Yes [id number] TAKE 1/2 [facility] mg tablet 9-16 TABLET BY ity o f 00:00: MOUTH [place] 00 EVERY DAY Medical WITH Branch BREAKFAST GLIPIZIDE 5 2021-0 Yes [id number] TAKE 1/2 [facility] mg tablet 9-16 TABLET BY ity o f 00:00: MOUTH [place] 00 EVERY DAY Medical WITH Branch BREAKFAST GLIPIZIDE 5 2021-0 Yes [id number] TAKE 1/2 [facility] mg tablet 9-16 TABLET BY ity o f 00:00: MOUTH [place] 00 EVERY DAY Medical WITH Branch BREAKFAST GLIPIZIDE 5 2021-0 Yes [id number] TAKE 1/2 [facility] mg tablet 9-16 TABLET BY ity o f 00:00: MOUTH [place] 00 EVERY DAY Medical WITH Branch BREAKFAST GLIPIZIDE 5 2021-0 Yes [id number] TAKE 1/2 [facility] mg tablet 9-16 TABLET BY ity o f 00:00: MOUTH [place] 00 EVERY DAY Medical WITH Branch BREAKFAST GLIPIZIDE 5 2021-0 Yes [id number] TAKE 1/2 [facility] mg tablet 9-16 TABLET BY ity o f 00:00: MOUTH [place] 00 EVERY DAY Medical WITH Branch BREAKFAST GLIPIZIDE 5 2021-0 Yes [id number] TAKE 1/2 [facility] mg tablet 9-16 TABLET BY ity o f 00:00: MOUTH [place] 00 EVERY DAY Medical WITH Branch BREAKFAST GLIPIZIDE 5 0 Yes [id number] TAKE 1/2 [facility] mg tablet 9-16 TABLET BY ity o f 00:00: MOUTH [place] 00 EVERY DAY Medical WITH Branch BREAKFAST aspirin 81 2021-0 Yes 81mg Take 81 mg U nivers mg chewable 8-18 by mouth ity of tablet 15:01: daily. [place] [address] Medical Branch Cholecalcif Yes 1{tbl} Take 1 Un bruno julito, 8-18 tablet by ity of Vitamin D3, 15:01: mouth [place] 125 mcg 18 daily. Medical (5,000 Branch unit) tablet aspirin 81 2021-0 Yes 81mg Take 81 mg U nivers mg chewable 8-18 by mouth ity of tablet 15:01: daily. [place] [address] Medical Branch Cholecalcif 2021-0 Yes 1{tbl} Take 1 Un [place], 8-18 tablet by ity of Vitamin D3, 15:01: mouth [place] 125 mcg 18 daily. Medical (5,000 Branch unit) tablet aspirin 81 2021- Yes 81mg Take 81 mg U nivers mg chewable 8-18 by mouth ity of tablet 15:01: daily. [place] 18 Medical Branch Cholecalcif Yes 1{tbl} Take 1 Un [place]uno [place], 8-18 tablet by ity of Vitamin D3, 15:01: mouth [place] 125 mcg 18 daily. Medical (5,000 Branch unit) tablet ONETOUCH Yes [id number] USE TO Uni vers DELICA PLUS 5-10 TEST TWICE it y of LANCET 30 00:00: DAILY [place] gauge Misc (E11.9) Medica l Branch ONETOUCH Yes [id number] USE TO Uni vers DELICA PLUS 5-10 TEST TWICE it y of LANCET 30 00:00: DAILY [place] gauge Misc (E11.9) Medica l Branch ONETOUCH Yes [id number] USE TO Uni vers DELICA PLUS 5-10 TEST TWICE it y of LANCET 30 00:00: DAILY [place] gauge Misc (E11.9) Medica l Branch ONETOUCH Yes [id number] USE TO Uni vers DELICA PLUS 5-10 TEST TWICE it y of LANCET 30 00:00: DAILY [place] gauge Misc (E11.9) Medica l Branch ONETOUCH Yes [id number] USE TO Uni vers DELICA PLUS 5-10 TEST TWICE it y of LANCET 30 00:00: DAILY [place] gauge Misc (E11.9) Medica l Branch ONETOUCH Yes [id number] USE TO [facility] vers DELICA PLUS 5-10 TEST TWICE it y of LANCET 30 00:00: DAILY [place] gauge Misc (E11.9) Medica l Branch ONETOUCH Yes [id number] USE TO [facility] vers DELICA PLUS 5-10 TEST TWICE it y of LANCET 30 00:00: DAILY [place] gauge Misc (E11.9) Medica l Branch ONETOUCH Yes [id number] USE TO [facility] vers DELICA PLUS 5-10 TEST TWICE it y of LANCET 30 00:00: DAILY [place] gauge Misc 00 (E11.9) Medica l Branch ONETOUCH Yes [id number] USE TO [facility] vers DELICA PLUS 5-10 TEST TWICE it y of LANCET 30 00:00: DAILY [place] gauge Misc (E11.9) Medica l Branch ONETOUCH Yes [id number] USE TO [facility] vers DELICA PLUS 5-10 TEST TWICE it y of LANCET 30 00:00: DAILY [place] gauge Misc (E11.9) Medica l Branch ONETOUCH Yes [id number] USE TO [facility] vers DELICA PLUS 5-10 TEST TWICE it y of LANCET 30 00:00: DAILY [place] gauge Misc (E11.9) Medica l Branch ONETOUCH Yes [id number] USE TO [facility] vers DELICA PLUS 5-10 TEST TWICE it y of LANCET 30 00:00: DAILY [place] gauge Misc (E11.9) Medica l Branch ONETOUCH Yes [id number] USE TO [facility] vers DELICA PLUS 5-10 TEST TWICE it y of LANCET 30 00:00: DAILY [place] gauge Misc (E11.9) Medica l Branch ONETOUCH Yes [id number] USE TO [facility] vers DELICA PLUS 5-10 TEST TWICE it y of LANCET 30 00:00: DAILY [place] gauge Misc (E11.9) Medica l Branch ONETOUCH Yes [id number] USE TO [facility] vers DELICA PLUS 5-10 TEST TWICE it y of LANCET 30 00:00: DAILY [place] gauge Misc (E11.9) Medica l Branch ONETOUCH Yes [id number] USE TO [facility] vers DELICA PLUS 5-10 TEST TWICE it y of LANCET 30 00:00: DAILY [place] gauge Misc (E11.9) Medica l Branch ONETOUCH Yes [id number] USE TO Uni vers DELICA PLUS 5-10 TEST TWICE it y of LANCET 30 00:00: DAILY [place] gauge Misc (E11.9) Medica l Branch ONETOUCH Yes [id number] USE TO Uni vers DELICA PLUS 5-10 TEST TWICE it y of LANCET 30 00:00: DAILY [place] gauge Misc (E11.9) Medica l Branch ONETOUCH 0 Yes [id number] USE TO Uni vers DELICA PLUS 5-10 TEST TWICE it y of LANCET 30 00:00: DAILY [place] gauge Misc (E11.9) Medica l Branch ONETOUCH 0 Yes [id number] USE TO [facility] vers DELICA PLUS 5-10 TEST TWICE it y of LANCET 30 00:00: DAILY [place] gauge Misc 00 (E11.9) Medica l Branch ONETOUCH 0 Yes [id number] USE TO [facility] vers DELICA PLUS 5-10 TEST TWICE it y of LANCET 30 00:00: DAILY [place] gauge Misc (E11.9) Medica l Branch ONETOUCH 0 Yes [id number] USE TO [facility] vers DELICA PLUS 5-10 TEST TWICE it y of LANCET 30 00:00: DAILY [place] gauge Misc (E11.9) Medica l Branch ONETOUCH 0 Yes [id number] USE TO [facility] vers DELICA PLUS 5-10 TEST TWICE it y of LANCET 30 00:00: DAILY [place] gauge Misc (E11.9) Medica l Branch ONETOUCH 0 Yes [id number] USE TO [facility] vers DELICA PLUS 5-10 TEST TWICE it y of LANCET 30 00:00: DAILY [place] gauge Misc (E11.9) Medica l Branch ONETOUCH 0 Yes [id number] USE TO [facility] vers DELICA PLUS 5-10 TEST TWICE it y of LANCET 30 00:00: DAILY [place] gauge Misc (E11.9) Medica l Branch ONETOUCH 0 Yes [id number] USE TO [facility] vers DELICA PLUS 5-10 TEST TWICE it y of LANCET 30 00:00: DAILY [place] gauge Misc (E11.9) Medica l Branch ONETOUCH 2021-0 Yes [id number] USE TO Uni vers DELICA PLUS 5-10 TEST TWICE it y of LANCET 30 00:00: DAILY [place] gauge Misc (E11.9) Medica l Branch ONETOUCH 0 Yes [id number] USE TO Uni vers DELICA PLUS 5-10 TEST TWICE it y of LANCET 30 00:00: DAILY [place] gauge Misc (E11.9) Medica l Branch ONETOUCH 2021-0 Yes [id number] USE TO [facility] vers DELICA PLUS 5-10 TEST TWICE it y of LANCET 30 00:00: DAILY [place] gauge Misc (E11.9) Medica l Branch ONETOUCH 2021-0 Yes [id number] USE TO [facility] vers DELICA PLUS 5-10 TEST TWICE it y of LANCET 30 00:00: DAILY [place] gauge Misc 00 (E11.9) Medica l Branch ONETOUCH 0 Yes [id number] USE TO [facility] vers DELICA PLUS 5-10 TEST TWICE it y of LANCET 30 00:00: DAILY [place] gauge Misc (E11.9) Medica l Branch ONETOUCH 0 Yes [id number] USE TO [facility] vers DELICA PLUS 5-10 TEST TWICE it y of LANCET 30 00:00: DAILY [place] gauge Misc (E11.9) Medica l Branch ONETOUCH 0 Yes [id number] USE TO Uni vers DELICA PLUS 5-10 TEST TWICE it y of LANCET 30 00:00: DAILY [place] gauge Misc (E11.9) Medica l Branch ONETOUCH 0 Yes [id number] USE TO Uni vers DELICA PLUS 5-10 TEST TWICE it y of LANCET 30 00:00: DAILY [place] gauge Misc (E11.9) Medica l Branch ONETOUCH 0 Yes [id number] USE TO [facility] vers DELICA PLUS 5-10 TEST TWICE it y of LANCET 30 00:00: DAILY [place] gauge Misc (E11.9) Medica l Branch ONETOUCH 0 Yes [id number] USE TO Uni vers DELICA PLUS 5-10 TEST TWICE it y of LANCET 30 00:00: DAILY [place] gauge Misc (E11.9) Medica l Branch ONETOUCH 0 Yes [id number] USE TO Uni vers DELICA PLUS 5-10 TEST TWICE it y of LANCET 30 00:00: DAILY [place] gauge Misc (E11.9) Medica l Branch ONETOUCH 0 Yes [id number] USE TO [facility] vers DELICA PLUS 5-10 TEST TWICE it y of LANCET 30 00:00: DAILY [place] gauge Misc (E11.9) Medica l Branch ONETOUCH 0 Yes [id number] USE TO Uni vers DELICA PLUS 5-10 TEST TWICE it y of LANCET 30 00:00: DAILY [place] gauge Misc (E11.9) Medica l Branch ONETOUCH 2021-0 Yes [id number] USE TO Uni vers DELICA PLUS 5-10 TEST TWICE it y of LANCET 30 00:00: DAILY [place] gauge Misc (E11.9) Medica l Branch ONETOUCH 2021-0 Yes [id number] USE TO Uni vers DELICA PLUS 5-10 TEST TWICE it y of LANCET 30 00:00: DAILY [place] gauge Misc (E11.9) Medica l Branch ONETOUCH Yes [id number] USE TO Uni vers DELICA PLUS 5-10 TEST TWICE it y of LANCET 30 00:00: DAILY [place] gauge Misc (E11.9) Medica l Branch ONETOUCH 0 Yes [id number] USE TO Uni vers DELICA PLUS 5-10 TEST TWICE it y of LANCET 30 00:00: DAILY [place] gauge Misc (E11.9) Medica l Branch ONETOUCH Yes [id number] USE TO [facility] vers DELICA PLUS 5-10 TEST TWICE it y of LANCET 30 00:00: DAILY [place] gauge Misc (E11.9) Medica l Branch ONETOUCH Yes [id number] USE TO [facility] vers DELICA PLUS 5-10 TEST TWICE it y of LANCET 30 00:00: DAILY [place] gauge Misc (E11.9) Medica l Branch ONETOUCH Yes [id number] USE TO Uni vers DELICA PLUS 5-10 TEST TWICE it y of LANCET 30 00:00: DAILY [place] gauge Misc (E11.9) Medica l Branch ONETOUCH 0 Yes [id number] USE TO Uni vers DELICA PLUS 5-10 TEST TWICE it y of LANCET 30 00:00: DAILY [place] gauge Misc (E11.9) Medica l Branch ONETOUCH 0 Yes [id number] USE TO Uni vers DELICA PLUS 5-10 TEST TWICE it y of LANCET 30 00:00: DAILY [place] gauge Misc (E11.9) Medica l Branch ONETOUCH 0 Yes [id number] USE TO Uni vers DELICA PLUS 5-10 TEST TWICE it y of LANCET 30 00:00: DAILY [place] gauge Misc (E11.9) Medica l Branch ONETOUCH 0 Yes [id number] USE TO Uni vers DELICA PLUS 5-10 TEST TWICE it y of LANCET 30 00:00: DAILY [place] gauge Misc 00 (E11.9) Medica l Branch ONETOUCH 2021-0 Yes [id number] USE TO Uni vers DELICA PLUS 5-10 TEST TWICE it y of LANCET 30 00:00: DAILY [place] gauge Mis 00 (E11.9) Medica l Branch ONETOUCH 0 Yes [id number] USE TO Uni vers DELICA PLUS 5-10 TEST TWICE it y of LANCET 30 00:00: DAILY [place] gauge Misc 00 (E11.9) [facility] ONETOUCH 0 Yes [id number] USE TO [facility] DELICA PLUS 5-10 TEST TWICE it y of LANCET 30 00:00: DAILY [place] gauge Mis 00 (E11.9) [facility] ONETOUCH 0 Yes [id number] USE TO [facility] DELICA PLUS 5-10 TEST TWICE it y of LANCET 30 00:00: DAILY [place] gauge Mis 00 (E11.9) [facility] ONETOUCH 0 Yes [id number] USE TO [facility] DELICA PLUS 5-10 TEST TWICE it y of LANCET 30 00:00: DAILY [place] gauge Mis 00 (E11.9) [facility] CLOPIDOGREL 2022-0 Yes [id number] TAKE 1 [facility] 75 mg 3-28 TABLET BY [facility] of tablet 00:00: MOUTH [place] 00 EVERY DAY [facility] CLOPIDOGREL 2022-0 Yes [id number] TAKE 1 [facility] 75 mg 3-28 TABLET BY it[facility] of tablet 00:00: MOUTH [place] EVERY DAY [facility] CLOPIDOGREL 2022-0 Yes [id number] TAKE 1 [facility] 75 mg 3-28 TABLET BY ity of tablet 00:00: [facility] EVERY DAY [facility] Branch CLOPIDOGREL 2022-0 Yes [id number] TAKE 1 [facility] 75 mg 3-28 TABLET BY ity of tablet 00:00: [facility] EVERY DAY [facility] CLOPIDOGREL 2022-0 Yes [id number] TAKE 1 [facility] 75 mg 3-28 TABLET BY ity of tablet 00:00: MOUTH [place] 00 EVERY DAY [facility] CLOPIDOGREL 2022-0 Yes [id number] TAKE 1 [facility] 75 mg 3-28 TABLET BY ity of tablet 00:00: MOUTH [place] EVERY DAY [facility] CLOPIDOGREL 2022-0 Yes [id number] TAKE 1 [facility] 75 mg 3-28 TABLET BY ity of tablet 00:00: MOUTH [place] EVERY DAY [facility] CLOPIDOGREL 2022-0 Yes [id number] TAKE 1 [facility] 75 mg 3-28 TABLET BY ity of tablet 00:00: [facility] EVERY DAY [facility] CLOPIDOGREL 2022-0 Yes [id number] TAKE 1 [facility] 75 mg 3-28 TABLET BY it[facility] of tablet 00:00: MOUTH [place] 00 EVERY DAY [facility] CLOPIDOGREL 2022-0 Yes [id number] TAKE 1 [facility] 75 mg 3-28 TABLET BY ity of tablet 00:00: MOUTH [place] 00 EVERY DAY [facility] CLOPIDOGREL 2022-0 Yes [id number] TAKE 1 [facility] 75 mg 3-28 TABLET BY ity of tablet 00:00: MOUTH [place] 00 EVERY DAY [facility] CLOPIDOGREL 2022-0 Yes [id number] TAKE 1 [facility] 75 mg 3-28 TABLET BY ity of tablet 00:00: MOUTH [place] 00 EVERY DAY [facility] CLOPIDOGREL 2022-0 Yes [id number] TAKE 1 [facility] 75 mg 3-28 TABLET BY it[facility] of tablet 00:00: MOUTH [place] 00 EVERY DAY [facility] CLOPIDOGREL 2022-0 Yes [id number] TAKE 1 [facility] 75 mg 3-28 TABLET BY ity of tablet 00:00: [facility] EVERY DAY [facility] CLOPIDOGREL 2022-0 Yes [id number] TAKE 1 [facility] 75 mg 3-28 TABLET BY it[facility] of tablet 00:00: MOUTH [place] EVERY DAY [facility] CLOPIDOGREL 2022-0 Yes [id number] TAKE 1 [facility] 75 mg 3-28 TABLET BY ity of tablet 00:00: MOUTH [place] 00 EVERY DAY [facility] CLOPIDOGREL 2022-0 Yes [id number] TAKE 1 [facility] 75 mg 3-28 TABLET BY ity of tablet 00:00: [facility] 00 EVERY DAY [facility] CLOPIDOGREL 2022-0 Yes [id number] TAKE 1 [facility] 75 mg 3-28 TABLET BY ity of tablet 00:00: [facility] 00 EVERY DAY [facility] CLOPIDOGREL 2022-0 Yes [id number] TAKE 1 [facility] 75 mg 3-28 TABLET BY ity of tablet 00:00: MOUTH [place] 00 EVERY DAY [facility] CLOPIDOGREL 2022-0 Yes [id number] TAKE 1 [facility] 75 mg 3-28 TABLET BY ity of tablet 00:00: MOUTH [place] 00 EVERY DAY [facility] CLOPIDOGREL 2022-0 Yes [id number] TAKE 1 [facility] 75 mg 3-28 TABLET BY ity of tablet 00:00: MOUTH [place] 00 EVERY DAY [facility] CLOPIDOGREL 2022-0 Yes [id number] TAKE 1 [facility] 75 mg 3-28 TABLET BY ity of tablet 00:00: MOUTH [place] EVERY DAY [facility] CLOPIDOGREL 2022-0 Yes [id number] TAKE 1 [facility] 75 mg 3-28 TABLET BY ity of tablet 00:00: MOUTH [place] 00 EVERY DAY [facility] CLOPIDOGREL 2022-0 Yes [id number] TAKE 1 [facility] 75 mg 3-28 TABLET BY ity of tablet 00:00: MOUTH 00 EVERY DAY [facility] CLOPIDOGREL 2022-0 Yes [id number] TAKE 1 [facility] 75 mg 3-28 TABLET BY ity of tablet 00:00: MOUTH 00 EVERY DAY [facility] CLOPIDOGREL 2022-0 Yes [id number] TAKE 1 [facility] 75 mg 3-28 TABLET BY ity of tablet 00:00: MOUTH [place] 00 EVERY DAY [facility] CLOPIDOGREL 2022-0 Yes [id number] TAKE 1 [facility] 75 mg 3-28 TABLET BY ity of tablet 00:00: MOUTH 00 EVERY DAY [facility] CLOPIDOGREL 2022-0 Yes [id number] TAKE 1 [facility] 75 mg 3-28 TABLET BY ity of tablet 00:00: MOUTH 00 EVERY DAY [facility] CLOPIDOGREL 2022-0 Yes [id number] TAKE 1 [facility] 75 mg 3-28 TABLET BY ity of tablet 00:00: MOUTH [place] EVERY DAY [facility] CLOPIDOGREL 2022-0 Yes [id number] TAKE 1 [facility] 75 mg 3-28 TABLET BY ity of tablet 00:00: MOUTH 00 EVERY DAY [facility] CLOPIDOGREL 2022-0 Yes [id number] TAKE 1 [facility] 75 mg 3-28 TABLET BY ity of tablet 00:00: MOUTH 00 EVERY DAY [facility] CLOPIDOGREL 2022-0 Yes [id number] TAKE 1 [facility] 75 mg 3-28 TABLET BY ity of tablet 00:00: MOUTH [place] 00 EVERY DAY [facility] CLOPIDOGREL 2022-0 Yes [id number] TAKE 1 [facility] 75 mg 3-28 TABLET BY ity of tablet 00:00: MOUTH [place] 00 EVERY DAY [facility] CLOPIDOGREL 2022-0 Yes [id number] TAKE 1 [facility] 75 mg 3-28 TABLET BY ity of tablet 00:00: MOUTH [place] 00 EVERY DAY [facility] CLOPIDOGREL 2022-0 Yes [id number] TAKE 1 [facility] 75 mg 3-28 TABLET BY ity of tablet 00:00: MOUTH [place] 00 EVERY DAY [facility] CLOPIDOGREL 2022-0 Yes [id number] TAKE 1 [facility] 75 mg 3-28 TABLET BY ity of tablet 00:00: MOUTH [place] 00 EVERY DAY [facility] CLOPIDOGREL 2022-0 Yes [id number] TAKE 1 [facility] 75 mg 3-28 TABLET BY ity of tablet 00:00: MOUTH [place] 00 EVERY DAY [facility] CLOPIDOGREL 2022-0 Yes [id number] TAKE 1 [facility] 75 mg 3-28 TABLET BY ity of tablet 00:00: MOUTH 00 EVERY DAY [facility] CLOPIDOGREL 2022-0 Yes [id number] TAKE 1 [facility] 75 mg 3-28 TABLET BY ity of tablet 00:00: MOUTH 00 EVERY DAY [facility] CLOPIDOGREL 2022-0 Yes [id number] TAKE 1 [facility] 75 mg 3-28 TABLET BY ity of tablet 00:00: MOUTH [place] 00 EVERY DAY [facility] CLOPIDOGREL 2022-0 Yes [id number] TAKE 1 [facility] 75 mg 3-28 TABLET BY ity of tablet 00:00: MOUTH 00 EVERY DAY [facility] CLOPIDOGREL 2022-0 Yes [id number] TAKE 1 [facility] 75 mg 3-28 TABLET BY ity of tablet 00:00: [facility] 00 EVERY DAY [facility] Branch CLOPIDOGREL 2022-0 Yes [id number] TAKE 1 [facility] 75 mg 3-28 TABLET BY ity of tablet 00:00: [facility] EVERY DAY [facility] Branch CLOPIDOGREL 2022-0 Yes [id number] TAKE 1 [facility] 75 mg 3-28 TABLET BY ity of tablet 00:00: MOUTH 00 EVERY DAY [facility] CLOPIDOGREL 2022-0 Yes [id number] TAKE 1 [facility] 75 mg 3-28 TABLET BY ity of tablet 00:00: [facility] 00 EVERY DAY [facility] Branch CLOPIDOGREL 2022-0 Yes [id number] TAKE 1 [facility] 75 mg 3-28 TABLET BY ity of tablet 00:00: [facility] 00 EVERY DAY [facility] Branch CLOPIDOGREL 2022-0 Yes [id number] TAKE 1 [facility] 75 mg 3-28 TABLET BY ity of tablet 00:00: [facility] EVERY DAY [facility] Branch CLOPIDOGREL 2022-0 Yes [id number] TAKE 1 [facility] 75 mg 3-28 TABLET BY ity of tablet 00:00: MOUTH [place] 00 EVERY DAY [facility] CLOPIDOGREL 2022-0 Yes [id number] TAKE 1 [facility] 75 mg 3-28 TABLET BY ity of tablet 00:00: [facility] 00 EVERY DAY [facility] Branch CLOPIDOGREL 2022-0 Yes [id number] TAKE 1 [facility] 75 mg 3-28 TABLET BY ity of tablet 00:00: [facility] 00 EVERY DAY [facility] Branch CLOPIDOGREL 2022-0 Yes [id number] TAKE 1 [facility] 75 mg 3-28 TABLET BY ity of tablet 00:00: [facility] 00 EVERY DAY [facility] CLOPIDOGREL 2022-0 Yes [id number] TAKE 1 [facility] 75 mg 3-28 TABLET BY ity of tablet 00:00: MOUTH [place] 00 EVERY DAY [facility] CLOPIDOGREL 2-0 Yes [id number] TAKE 1 [facility] 75 mg 3-28 TABLET BY ity of tablet 00:00: MOUTH [place] 00 EVERY DAY [facility] CLOPIDOGREL 2-0 Yes [id number] TAKE 1 [facility] 75 mg 3-28 TABLET BY ity of tablet 00:00: MOUTH [place] 00 EVERY DAY [facility] CLOPIDOGREL 2-0 Yes [id number] TAKE 1 [facility] 75 mg 3-28 TABLET BY ity of tablet 00:00: MOUTH [place] 00 EVERY DAY [facility] isosorbide 2021-0 Yes [id number] 30mg Take 1 [facility] mononitrate 3-24 tablet by ity of 30 mg 24 hr 00:00: mouth [place] tablet 00 daily. [facility] isosorbide 2021-0 Yes [id number] 30mg Take 1 [facility] mononitrate 3-24 tablet by ity of 30 mg 24 hr 00:00: mouth [place] tablet 00 daily. [facility] isosorbide 2021-0 Yes [id number] 30mg Take 1 [facility] mononitrate 3-24 tablet by ity of 30 mg 24 hr 00:00: mouth [place] tablet 00 daily. [facility] isosorbide 2021-0 Yes [id number] 30mg Take 1 [facility] mononitrate 3-24 tablet by ity of 30 mg 24 hr 00:00: mouth [place] tablet 00 daily. [facility] isosorbide 2021-0 Yes [id number] 30mg Take 1 [facility] mononitrate 3-24 tablet by ity of 30 mg 24 hr 00:00: mouth [place] tablet 00 daily. [facility] isosorbide 2021-0 Yes [id number] 30mg Take 1 [facility] mononitrate 3-24 tablet by ity of 30 mg 24 hr 00:00: mouth [place] tablet 00 daily. [facility] isosorbide 2021-0 Yes [id number] 30mg Take 1 [facility] mononitrate 3-24 tablet by ity of 30 mg 24 hr 00:00: mouth [place] tablet 00 daily. [facility] isosorbide 2021-0 Yes [id number] 30mg Take 1 [facility] mononitrate 3-24 tablet by ity of 30 mg 24 hr 00:00: mouth [place] tablet 00 daily. [facility] isosorbide 2022-0 Yes [id number] 30mg Take 1 [facility] mononitrate 3-24 tablet by ity of 30 mg 24 hr 00:00: mouth [place] tablet 00 daily. [facility] isosorbide 2021-0 Yes [id number] 30mg Take 1 [facility] mononitrate 3-24 tablet by ity of 30 mg 24 hr 00:00: mouth [place] tablet 00 daily. [facility] isosorbide 2021-0 Yes [id number] 30mg Take 1 [facility] mononitrate 3-24 tablet by ity of 30 mg 24 hr 00:00: mouth [place] tablet 00 daily. [facility] isosorbide 2021-0 Yes [id number] 30mg Take 1 [facility] mononitrate 3-24 tablet by ity of 30 mg 24 hr 00:00: mouth [place] tablet 00 daily. [facility] isosorbide 2021-0 Yes [id number] 30mg Take 1 [facility] mononitrate 3-24 tablet by ity of 30 mg 24 hr 00:00: mouth [place] tablet 00 daily. [facility] isosorbide 2021-0 Yes [id number] 30mg Take 1 [facility] mononitrate 3-24 tablet by ity of 30 mg 24 hr 00:00: mouth [place] tablet 00 daily. [facility] isosorbide 2021-0 Yes [id number] 30mg Take 1 [facility] mononitrate 3-24 tablet by ity of 30 mg 24 hr 00:00: mouth [place] tablet 00 daily. [facility] isosorbide 2021-0 Yes [id number] 30mg Take 1 [facility] mononitrate 3-24 tablet by ity of 30 mg 24 hr 00:00: mouth [place] tablet 00 daily. [facility] isosorbide 2021-0 Yes [id number] 30mg Take 1 [facility] mononitrate 3-24 tablet by ity of 30 mg 24 hr 00:00: mouth [place] tablet 00 daily. [facility] isosorbide 2021-0 Yes [id number] 30mg Take 1 [facility] mononitrate 3-24 tablet by ity of 30 mg 24 hr 00:00: mouth [place] tablet 00 daily. [facility] isosorbide 2021-0 Yes [id number] 30mg Take 1 [facility] mononitrate 3-24 tablet by ity of 30 mg 24 hr 00:00: mouth [place] tablet 00 daily. [facility] isosorbide 2021-0 Yes [id number] 30mg Take 1 [facility] mononitrate 3-24 tablet by ity of 30 mg 24 hr 00:00: mouth [place] tablet 00 daily. [facility] isosorbide 2021-0 Yes [id number] 30mg Take 1 [facility] mononitrate 3-24 tablet by ity of 30 mg 24 hr 00:00: mouth [place] tablet 00 daily. [facility] isosorbide 2021-0 Yes [id number] 30mg Take 1 [facility] mononitrate 3-24 tablet by ity of 30 mg 24 hr 00:00: mouth [place] tablet 00 daily. [facility] isosorbide 2021-0 Yes [id number] 30mg Take 1 [facility] mononitrate 3-24 tablet by ity of 30 mg 24 hr 00:00: mouth [place] tablet 00 daily. [facility] isosorbide 2021-0 Yes [id number] 30mg Take 1 [facility] mononitrate 3-24 tablet by ity of 30 mg 24 hr 00:00: mouth [place] tablet 00 daily. [facility] isosorbide 2021-0 Yes [id number] 30mg Take 1 [facility] mononitrate 3-24 tablet by ity of 30 mg 24 hr 00:00: mouth [place] tablet 00 daily. [facility] isosorbide 2021-0 Yes [id number] 30mg Take 1 [facility] mononitrate 3-24 tablet by ity of 30 mg 24 hr 00:00: mouth [place] tablet 00 daily. [facility] isosorbide 0 Yes [id number] 30mg Take 1 [facility] mononitrate 3-24 tablet by ity of 30 mg 24 hr 00:00: mouth [place] tablet 00 daily. [facility] isosorbide 2021-0 Yes [id number] 30mg Take 1 [facility] mononitrate 3-24 tablet by ity of 30 mg 24 hr 00:00: mouth [place] tablet 00 daily. [facility] isosorbide 2021-0 Yes [id number] 30mg Take 1 [facility] mononitrate 3-24 tablet by ity of 30 mg 24 hr 00:00: mouth [place] tablet 00 daily. [facility] isosorbide 2021-0 Yes [id number] 30mg Take 1 [facility] mononitrate 3-24 tablet by ity of 30 mg 24 hr 00:00: mouth [place] tablet 00 daily. [facility] isosorbide 2021-0 Yes [id number] 30mg Take 1 [facility] mononitrate 3-24 tablet by ity of 30 mg 24 hr 00:00: mouth [place] tablet 00 daily. [facility] isosorbide 2021-0 Yes [id number] 30mg Take 1 [facility] mononitrate 3-24 tablet by ity of 30 mg 24 hr 00:00: mouth [place] tablet 00 daily. [facility] isosorbide 2021-0 Yes [id number] 30mg Take 1 [facility] mononitrate 3-24 tablet by ity of 30 mg 24 hr 00:00: mouth [place] tablet 00 daily. [facility] isosorbide 2021-0 Yes [id number] 30mg Take 1 [facility] mononitrate 3-24 tablet by ity of 30 mg 24 hr 00:00: mouth [place] tablet 00 daily. [facility] isosorbide 2021-0 Yes [id number] 30mg Take 1 [facility] mononitrate 3-24 tablet by ity of 30 mg 24 hr 00:00: mouth [place] tablet 00 daily. [facility] isosorbide 2021-0 Yes [id number] 30mg Take 1 [facility] mononitrate 3-24 tablet by ity of 30 mg 24 hr 00:00: mouth [place] tablet 00 daily. [facility] isosorbide 2021-0 Yes [id number] 30mg Take 1 [facility] mononitrate 3-24 tablet by ity of 30 mg 24 hr 00:00: mouth [place] tablet 00 daily. [facility] isosorbide 2021-0 Yes [id number] 30mg Take 1 [facility] mononitrate 3-24 tablet by ity of 30 mg 24 hr 00:00: mouth [place] tablet 00 daily. [facility] isosorbide 2021-0 Yes [id number] 30mg Take 1 [facility] mononitrate 3-24 tablet by ity of 30 mg 24 hr 00:00: mouth [place] tablet 00 daily. [facility] isosorbide 2-0 Yes [id number] 30mg Take 1 [facility] mononitrate 3-24 tablet by ity of 30 mg 24 hr 00:00: mouth [place] tablet 00 daily. [facility] isosorbide 2021-0 Yes [id number] 30mg Take 1 [facility] mononitrate 3-24 tablet by ity of 30 mg 24 hr 00:00: mouth [place] tablet 00 daily. [facility] isosorbide 2-0 Yes [id number] 30mg Take 1 [facility] mononitrate 3-24 tablet by ity of 30 mg 24 hr 00:00: mouth [place] tablet 00 daily. [facility] isosorbide 2021-0 Yes [id number] 30mg Take 1 [facility] mononitrate 3-24 tablet by ity of 30 mg 24 hr 00:00: mouth [place] tablet 00 daily. [facility] isosorbide 2021-0 Yes [id number] 30mg Take 1 [facility] mononitrate 3-24 tablet by ity of 30 mg 24 hr 00:00: mouth [place] tablet 00 daily. [facility] isosorbide 2021-0 Yes [id number] 30mg Take 1 [facility] mononitrate 3-24 tablet by ity of 30 mg 24 hr 00:00: mouth [place] tablet 00 daily. [facility] isosorbide 2021-0 Yes [id number] 30mg Take 1 [facility] mononitrate 3-24 tablet by ity of 30 mg 24 hr 00:00: mouth [place] tablet 00 daily. [facility] isosorbide 2021-0 Yes [id number] 30mg Take 1 [facility] mononitrate 3-24 tablet by ity of 30 mg 24 hr 00:00: mouth [place] tablet 00 daily. [facility] isosorbide 2021-0 Yes [id number] 30mg Take 1 [facility] mononitrate 3-24 tablet by ity of 30 mg 24 hr 00:00: mouth [place] tablet 00 daily. [facility] isosorbide 2021-0 Yes [id number] 30mg Take 1 [facility] mononitrate 3-24 tablet by ity of 30 mg 24 hr 00:00: mouth [place] tablet 00 daily. [facility] isosorbide 2021-0 Yes [id number] 30mg Take 1 [facility] mononitrate 3-24 tablet by ity of 30 mg 24 hr 00:00: mouth [place] tablet 00 daily. [facility] isosorbide 2021-0 Yes [id number] 30mg Take 1 [facility] mononitrate 3-24 tablet by ity of 30 mg 24 hr 00:00: mouth [place] tablet 00 daily. [facility] isosorbide 2021-0 Yes [id number] 30mg Take 1 [facility] mononitrate 3-24 tablet by ity of 30 mg 24 hr 00:00: mouth [place] tablet 00 daily. [facility] isosorbide 2021-0 Yes [id number] 30mg Take 1 [facility] mononitrate 3-24 tablet by ity of 30 mg 24 hr 00:00: mouth [place] tablet 00 daily. [facility] isosorbide 0 Yes [id number] 30mg Take 1 [facility] mononitrate 3-24 tablet by ity of 30 mg 24 hr 00:00: mouth [place] tablet 00 daily. [facility] isosorbide 0 Yes [id number] 30mg Take 1 [facility] mononitrate 3-24 tablet by ity of 30 mg 24 hr 00:00: mouth [place] tablet 00 daily. [facility] ELIQUIS 2.5 2020-06 Yes [id number] TAKE 1 [facility] mg tablet 2-29 TABLET BY ity o f 00:00: MOUTH (TWO) Medical TIMES Branch DAILY. INDICATION S: AVF CLOTTING PREVENTION ELIQUIS 2.5 2020-06 Yes [id number] TAKE 1 [facility] mg tablet 2-29 TABLET BY ity o f 00:00: MOUTH (TWO) Medical TIMES Branch DAILY. INDICATION S: AVF CLOTTING PREVENTION ELIQUIS 2.5 2020-06 Yes [id number] TAKE 1 [facility] mg tablet 2-29 TABLET BY ity o f 00:00: MOUTH (TWO) Medical TIMES Branch DAILY. INDICATION S: AVF CLOTTING PREVENTION ELIQUIS 2.5 2020-06 Yes [id number] TAKE 1 [facility] mg tablet 2-29 TABLET BY ity o f 00:00: MOUTH (TWO) Medical TIMES Branch DAILY. INDICATION S: AVF CLOTTING PREVENTION ELIQUIS 2.5 2020-06 Yes [id number] TAKE 1 [facility] mg tablet 2-29 TABLET BY ity o f 00:00: MOUTH (TWO) Medical TIMES Branch DAILY. INDICATION S: AVF CLOTTING PREVENTION ELIQUIS 2.5 2020-06 Yes [id number] TAKE 1 [facility] mg tablet 2-29 TABLET BY ity o f 00:00: MOUTH 2 (TWO) Medical TIMES Branch DAILY. INDICATION S: AVF CLOTTING PREVENTION ELIQUIS 2.5 2020-06 Yes [id number] TAKE 1 [facility] mg tablet 2-29 TABLET BY ity o f 00:00: MOUTH 2 [place] (TWO) Medical TIMES Branch DAILY. INDICATION S: AVF CLOTTING PREVENTION ELIQUIS 2.5 2020-06 Yes [id number] TAKE 1 [facility] mg tablet 2-29 TABLET BY ity o f 00:00: MOUTH 2 (TWO) Medical TIMES Branch DAILY. INDICATION S: AVF CLOTTING PREVENTION ELIQUIS 2.5 2020-06 Yes [id number] TAKE 1 [facility] mg tablet 2-29 TABLET BY ity o f 00:00: MOUTH (TWO) Medical TIMES Branch DAILY. INDICATION S: AVF CLOTTING PREVENTION ELIQUIS 2.5 2020-06 Yes [id number] TAKE 1 [facility] mg tablet 2-29 TABLET BY ity o f 00:00: MOUTH (TWO) Medical TIMES Branch DAILY. INDICATION S: AVF CLOTTING PREVENTION ELIQUIS 2.5 2020-06 Yes [id number] TAKE 1 [facility] mg tablet 2-29 TABLET BY ity o f 00:00: MOUTH (TWO) Medical TIMES Branch DAILY. INDICATION S: AVF CLOTTING PREVENTION ELIQUIS 2.5 2020-06 Yes [id number] TAKE 1 [facility] mg tablet 2-29 TABLET BY ity o f 00:00: MOUTH (TWO) Medical TIMES Branch DAILY. INDICATION S: AVF CLOTTING PREVENTION ELIQUIS 2.5 2020-06 Yes [id number] TAKE 1 [facility] mg tablet 2-29 TABLET BY ity o f 00:00: MOUTH (TWO) Medical TIMES Branch DAILY. INDICATION S: AVF CLOTTING PREVENTION ELIQUIS 2.5 2020-06 Yes [id number] TAKE 1 [facility] mg tablet 2-29 TABLET BY ity o f 00:00: MOUTH (TWO) Medical TIMES Branch DAILY. INDICATION S: AVF CLOTTING PREVENTION ELIQUIS 2.5 2020-06 Yes [id number] TAKE 1 [facility] mg tablet 2-29 TABLET BY ity o f 00:00: MOUTH (TWO) Medical TIMES Branch DAILY. INDICATION S: AVF CLOTTING PREVENTION ELIQUIS 2.5 2020-06 Yes [id number] TAKE 1 [facility] mg tablet 2-29 TABLET BY ity o f 00:00: MOUTH (TWO) Medical TIMES Branch DAILY. INDICATION S: AVF CLOTTING PREVENTION ELIQUIS 2.5 2020-06 Yes [id number] TAKE 1 [facility] mg tablet 2-29 TABLET BY ity o f 00:00: MOUTH 2 (TWO) Medical TIMES Branch DAILY. INDICATION S: AVF CLOTTING PREVENTION ELIQUIS 2.5 2020-06 Yes [id number] TAKE 1 [facility] mg tablet 2-29 TABLET BY ity o f 00:00: MOUTH 2 (TWO) Medical TIMES Branch DAILY. INDICATION S: AVF CLOTTING PREVENTION ELIQUIS 2.5 2020-06 Yes [id number] TAKE 1 [facility] mg tablet 2-29 TABLET BY ity o f 00:00: MOUTH 2 (TWO) Medical TIMES Branch DAILY. INDICATION S: AVF CLOTTING PREVENTION ELIQUIS 2.5 2020-06 Yes [id number] TAKE 1 [facility] mg tablet 2-29 TABLET BY ity o f 00:00: MOUTH (TWO) Medical TIMES Branch DAILY. INDICATION S: AVF CLOTTING PREVENTION ELIQUIS 2.5 2020-06 Yes [id number] TAKE 1 [facility] mg tablet 2-29 TABLET BY ity o f 00:00: MOUTH (TWO) Medical TIMES Branch DAILY. INDICATION S: AVF CLOTTING PREVENTION ELIQUIS 2.5 2020-06 Yes [id number] TAKE 1 [facility] mg tablet 2-29 TABLET BY ity o f 00:00: MOUTH (TWO) Medical TIMES Branch DAILY. INDICATION S: AVF CLOTTING PREVENTION ELIQUIS 2.5 2020-06 Yes [id number] TAKE 1 [facility] mg tablet 2-29 TABLET BY ity o f 00:00: MOUTH (TWO) Medical TIMES Branch DAILY. INDICATION S: AVF CLOTTING PREVENTION ELIQUIS 2.5 2020-06 Yes [id number] TAKE 1 [facility] mg tablet 2-29 TABLET BY ity o f 00:00: MOUTH (TWO) Medical TIMES Branch DAILY. INDICATION S: AVF CLOTTING PREVENTION ELIQUIS 2.5 2020-06 Yes [id number] TAKE 1 [facility] mg tablet 2-29 TABLET BY ity o f 00:00: MOUTH (TWO) Medical TIMES Branch DAILY. INDICATION S: AVF CLOTTING PREVENTION ELIQUIS 2.5 2020-06 Yes [id number] TAKE 1 [facility] mg tablet 2-29 TABLET BY ity o f 00:00: MOUTH 2 (TWO) Medical TIMES Branch DAILY. INDICATION S: AVF CLOTTING PREVENTION ELIQUIS 2.5 2020-06 Yes [id number] TAKE 1 [facility] mg tablet 2-29 TABLET BY ity o f 00:00: MOUTH 2 (TWO) Medical TIMES Branch DAILY. INDICATION S: AVF CLOTTING PREVENTION ELIQUIS 2.5 2020-06 Yes [id number] TAKE 1 [facility] mg tablet 2-29 TABLET BY ity o f 00:00: MOUTH (TWO) Medical TIMES Branch DAILY. INDICATION S: AVF CLOTTING PREVENTION ELIQUIS 2.5 2020-06 Yes [id number] TAKE 1 [facility] mg tablet 2-29 TABLET BY ity o f 00:00: MOUTH 2 (TWO) Medical TIMES Branch DAILY. INDICATION S: AVF CLOTTING PREVENTION ELIQUIS 2.5 2020-06 Yes [id number] TAKE 1 [facility] mg tablet 2-29 TABLET BY ity o f 00:00: MOUTH (TWO) Medical TIMES Branch DAILY. INDICATION S: AVF CLOTTING PREVENTION ELIQUIS 2.5 2020-06 Yes [id number] TAKE 1 [facility] mg tablet 2-29 TABLET BY ity o f 00:00: MOUTH (TWO) Medical TIMES Branch DAILY. INDICATION S: AVF CLOTTING PREVENTION ELIQUIS 2.5 2020-06 Yes [id number] TAKE 1 [facility] mg tablet 2-29 TABLET BY ity o f 00:00: MOUTH (TWO) Medical TIMES Branch DAILY. INDICATION S: AVF CLOTTING PREVENTION ELIQUIS 2.5 2020-06 Yes [id number] TAKE 1 [facility] mg tablet 2-29 TABLET BY ity o f 00:00: MOUTH (TWO) Medical TIMES Branch DAILY. INDICATION S: AVF CLOTTING PREVENTION ELIQUIS 2.5 2020-06 Yes [id number] TAKE 1 [facility] mg tablet 2-29 TABLET BY ity o f 00:00: MOUTH (TWO) Medical TIMES Branch DAILY. INDICATION S: AVF CLOTTING PREVENTION ELIQUIS 2.5 2020-06 Yes [id number] TAKE 1 [facility] mg tablet 2-29 TABLET BY ity o f 00:00: MOUTH (TWO) Medical TIMES Branch DAILY. INDICATION S: AVF CLOTTING PREVENTION ELIQUIS 2.5 2020-06 Yes [id number] TAKE 1 [facility] mg tablet 2-29 TABLET BY ity o f 00:00: MOUTH (TWO) Medical TIMES Branch DAILY. INDICATION S: AVF CLOTTING PREVENTION ELIQUIS 2.5 2020-06 Yes [id number] TAKE 1 [facility] mg tablet 2-29 TABLET BY ity o f 00:00: MOUTH (TWO) Medical TIMES Branch DAILY. INDICATION S: AVF CLOTTING PREVENTION ELIQUIS 2.5 2020-06 Yes [id number] TAKE 1 [facility] mg tablet 2-29 TABLET BY ity o f 00:00: MOUTH (TWO) Medical TIMES Branch DAILY. INDICATION S: AVF CLOTTING PREVENTION ELIQUIS 2.5 2020-06 Yes [id number] TAKE 1 [facility] mg tablet 2-29 TABLET BY ity o f 00:00: MOUTH 2 (TWO) Medical TIMES Branch DAILY. INDICATION S: AVF CLOTTING PREVENTION ELIQUIS 2.5 2020-06 Yes [id number] TAKE 1 [facility] mg tablet 2-29 TABLET BY ity o f 00:00: MOUTH (TWO) Medical TIMES Branch DAILY. INDICATION S: AVF CLOTTING PREVENTION ELIQUIS 2.5 2020-06 Yes [id number] TAKE 1 [facility] mg tablet 2-29 TABLET BY ity o f 00:00: MOUTH (TWO) Medical TIMES Branch DAILY. INDICATION S: AVF CLOTTING PREVENTION ELIQUIS 2.5 2020-06 Yes [id number] TAKE 1 [facility] mg tablet 2-29 TABLET BY ity o f 00:00: MOUTH (TWO) Medical TIMES Branch DAILY. INDICATION S: AVF CLOTTING PREVENTION ELIQUIS 2.5 2020-06 Yes [id number] TAKE 1 [facility] mg tablet 2-29 TABLET BY ity o f 00:00: MOUTH (TWO) Medical TIMES Branch DAILY. INDICATION S: AVF CLOTTING PREVENTION ELIQUIS 2.5 2020-06 Yes [id number] TAKE 1 [facility] mg tablet 2-29 TABLET BY ity o f 00:00: MOUTH (TWO) Medical TIMES Branch DAILY. INDICATION S: AVF CLOTTING PREVENTION ELIQUIS 2.5 2020-06 Yes [id number] TAKE 1 [facility] mg tablet 2-29 TABLET BY ity o f 00:00: MOUTH (TWO) Medical TIMES Branch DAILY. INDICATION S: AVF CLOTTING PREVENTION ELIQUIS 2.5 2020-06 Yes [id number] TAKE 1 [facility] mg tablet 2-29 TABLET BY ity o f 00:00: MOUTH 2 (TWO) Medical TIMES Branch DAILY. INDICATION S: AVF CLOTTING PREVENTION ELIQUIS 2.5 2020-06 Yes [id number] TAKE 1 [facility] mg tablet 2-29 TABLET BY ity o f 00:00: MOUTH 2 (TWO) Medical TIMES Branch DAILY. INDICATION S: AVF CLOTTING PREVENTION ELIQUIS 2.5 2020-06 Yes [id number] TAKE 1 [facility] mg tablet 2-29 TABLET BY ity o f 00:00: MOUTH 2 (TWO) Medical TIMES Branch DAILY. INDICATION S: AVF CLOTTING PREVENTION ELIQUIS 2.5 2020-06 Yes [id number] TAKE 1 [facility] mg tablet 2-29 TABLET BY ity o f 00:00: MOUTH 2 (TWO) Medical TIMES Branch DAILY. INDICATION S: AVF CLOTTING PREVENTION ELIQUIS 2.5 2020-06 Yes [id number] TAKE 1 [facility] mg tablet 2-29 TABLET BY [facility] o f 00:00: MOUTH (TWO) Medical TIMES Branch DAILY. INDICATION S: AVF CLOTTING PREVENTION ELIQUIS 2.5 2020-06 Yes [id number] TAKE 1 [facility] mg tablet 2-29 TABLET BY [facility]y o f 00:00: MOUTH (TWO) Medical TIMES Branch DAILY. INDICATION S: AVF CLOTTING PREVENTION ELIQUIS 2.5 2020-06 Yes [id number] TAKE 1 [facility] mg tablet 2-29 TABLET BY [facility]y o f 00:00: MOUTH (TWO) Medical TIMES Branch DAILY. INDICATION S: AVF CLOTTING PREVENTION ELIQUIS 2.5 2020-06 Yes [id number] TAKE 1 [facility] mg tablet 2-29 TABLET BY [facility] o f 00:00: MOUTH (TWO) Medical TIMES Branch DAILY. INDICATION S: AVF CLOTTING PREVENTION ELIQUIS 2.5 2020-06 Yes [id number] TAKE 1 [facility] mg tablet 2-29 TABLET BY [facility]y o f 00:00: MOUTH (TWO) Medical TIMES Branch DAILY. INDICATION S: AVF CLOTTING PREVENTION ELIQUIS 2.5 2020-06 Yes [id number] TAKE 1 [facility] mg tablet 2-29 TABLET BY ity o f 00:00: MOUTH (TWO) Medical TIMES Branch DAILY. INDICATION S: AVF CLOTTING PREVENTION Insulin 2020-06 Yes [id number] 15U inject 15 U nivers Glargine 2-17 Units [facility] of (LANTUS 00:00: under the [place] [facility] 00 skin Medical U-100 daily. Branch INSULIN) 100 unit/mL (3 mL) injection felodipine 2020-06 Yes [id number] TAKE 1 U nivers 10 mg 24 hr 2-17 TABLET BY [facility]y of tablet 00:00: MOUTH [place] 00 DAILY. Medical Branch glipiZIDE 5 2020-06 Yes [id number] TAKE 1/2 [facility] mg tablet 2-17 TABLET BY ity o f 00:00: MOUTH [place] 00 EVERY DAY Medical WITH Branch BREAKFAST lisinopriL 2020-06 Yes [id number] 2.5mg Take 1 [facility] 2.5 mg 2-17 tablet by [facility]y of tablet 00:00: mouth [place] 00 daily. Medical Branch metoprolol 2020-06 Yes [id number] 25mg Take 1 [facility] nivers succinate 2-17 tablet by ity o f XL 25 mg 24 00:00: mouth 2 [facility] as hr tablet 00 (two) Medical times Branch daily. blood sugar 2020-06 Yes [id number] USE TO [facility] diagnostic 2-17 TEST TWICE ity of (ONETOUCH 00:00: DAILY [place] ULTRA BLUE 00 E11.9 Medical TEST STRIP) Branch strip rosuvastati 2020-06 Yes [id number] 40mg Take 1 [facility] n 40 mg 2-17 tablet by [facility]y of tablet 00:00: mouth [place] 00 daily. Medical Branch terazosin 2 2020-06 Yes [id number] TAKE 1 [facility] mg capsule 2-17 CAPSULE BY [facility]y of 00:00: MOUTH [place] 00 EVERY DAY Medical IN THE Branch EVENING Insulin 2020-06 Yes [id number] 15U inject 15 U nivers Glargine 2-17 Units ity of (LANTUS 00:00: under the [place] [facility] 00 skin Medical U-100 daily. Branch INSULIN) 100 unit/mL (3 mL) injection felodipine 2020-06 Yes [id number] TAKE 1 U nivers 10 mg 24 hr 2-17 TABLET BY [facility] of tablet 00:00: MOUTH [place] 00 DAILY. Medical Branch glipiZIDE 5 2020-06 Yes [id number] TAKE 1/2 [facility] mg tablet 2-17 TABLET BY ity o f 00:00: MOUTH [place] 00 EVERY DAY Medical WITH Branch BREAKFAST lisinopriL 2020-06 Yes [id number] 2.5mg Take 1 [facility] 2.5 mg 2-17 tablet by ity of tablet 00:00: mouth [place] 00 daily. Medical Branch metoprolol 2020-06 Yes [id number] 25mg Take 1 [facility] nivers succinate 2-17 tablet by ity o f XL 25 mg 24 00:00: mouth 2 [facility] as hr tablet 00 (two) Medical times [place] daily. blood sugar 2020-06 Yes [id number] USE TO [facility] diagnostic 2-17 TEST TWICE ity of (ONETOUCH 00:00: DAILY [place] ULTRA BLUE 00 E11.9 Medical TEST STRIP) Branch strip rosuvastati 2020-06 Yes [id number] 40mg Take 1 [facility] n 40 mg 2-17 tablet by ity of tablet 00:00: mouth [place] 00 daily. Medical Branch terazosin 2 2020-06 Yes [id number] TAKE 1 [facility] mg capsule 2-17 CAPSULE BY ity of 00:00: MOUTH [place] 00 EVERY DAY Medical IN THE Branch EVENING Insulin 2020-06 Yes [id number] 15U inject 15 U nivers Glargine 2-17 Units ity of ([place]ANTUS 00:00: under the [place] [facility] 00 skin Medical U-100 daily. Branch INSULIN) 100 unit/mL (3 mL) injection felodipine 2020-06 Yes [id number] TAKE 1 [facility] nivers 10 mg 24 hr 2-17 TABLET BY ity of tablet 00:00: MOUTH [place] 00 DAILY. Medical Branch lisinopriL 2020-06 Yes [id number] 2.5mg Take 1 [facility] 2.5 mg 2-17 tablet by ity of tablet 00:00: mouth [place] 00 daily. Medical Branch metoprolol 2020-06 Yes [id number] 25mg Take 1 U nivers succinate 2-17 tablet by ity o f XL 25 mg 24 00:00: mouth 2 [facility] as hr tablet 00 (two) Medical times [place] daily. blood sugar 2020-06 Yes [id number] USE TO [facility] diagnostic 2-17 TEST TWICE ity of (ONETOUCH 00:00: DAILY [place] ULTRA BLUE 00 E11.9 Medical TEST STRIP) Branch strip rosuvastati 2020-06 Yes [id number] 40mg Take 1 [facility] n 40 mg 2-17 tablet by ity of tablet 00:00: mouth [place] 00 daily. Medical Branch terazosin 2 2020-06 Yes [id number] TAKE 1 [facility] mg capsule 2-17 CAPSULE BY ity of 00:00: MOUTH [place] 00 EVERY DAY Medical IN THE Branch EVENING Insulin 2020-06 Yes [id number] 15U inject 15 U nivers Glargine 2-17 Units ity of ([place]ANTUS 00:00: under the [place] [facility] 00 skin Medical U-100 daily. Branch INSULIN) 100 unit/mL (3 mL) injection felodipine 2020-06 Yes [id number] TAKE 1 U nivers 10 mg 24 hr 2-17 TABLET BY ity of tablet 00:00: MOUTH [place] 00 DAILY. Medical Branch lisinopriL 2020-06 Yes [id number] 2.5mg Take 1 [facility] 2.5 mg 2-17 tablet by ity of tablet 00:00: mouth [place] 00 daily. Medical Branch metoprolol 2020-06 Yes [id number] 25mg Take 1 [facility] nivers succinate 2-17 tablet by ity o f XL 25 mg 24 00:00: mouth 2 [facility] as hr tablet 00 (two) Medical times [place] daily. blood sugar 2020-06 Yes [id number] USE TO [facility] diagnostic 2-17 TEST TWICE ity of (ONETOUCH 00:00: DAILY [place] ULTRA BLUE 00 E11.9 Medical TEST STRIP) Branch strip rosuvastati 2020-06 Yes [id number] 40mg Take 1 [facility] n 40 mg 2-17 tablet by ity of tablet 00:00: mouth [place] 00 daily. Medical Branch terazosin 2 2020-06 Yes [id number] TAKE 1 [facility] mg capsule 2-17 CAPSULE BY ity of 00:00: MOUTH [place] 00 EVERY DAY Medical IN THE Branch EVENING Insulin 2020-06 Yes [id number] 15U inject 15 U nivers Glargine 2-17 Units ity of (LANTUS 00:00: under the [place] [facility] 00 skin Medical U-100 daily. [place] INSULIN) 100 unit/mL (3 mL) injection felodipine 2020-06 Yes [id number] TAKE 1 U nivers 10 mg 24 hr 2-17 TABLET BY ity of tablet 00:00: MOUTH [place] 00 DAILY. Medical Branch lisinopriL 2020-06 Yes [id number] 2.5mg Take 1 [facility] 2.5 mg 2-17 tablet by ity of tablet 00:00: mouth [place] 00 daily. Medical Branch metoprolol 2020-06 Yes [id number] 25mg Take 1 U nivers succinate 2-17 tablet by ity o f XL 25 mg 24 00:00: mouth 2 [facility] as hr tablet 00 (two) Medical times [place] daily. blood sugar 2020-06 Yes [id number] USE TO [facility] diagnostic 2-17 TEST TWICE ity of (ONETOUCH 00:00: DAILY [place] ULTRA BLUE 00 E11.9 Medical TEST STRIP) Branch strip rosuvastati 2020-06 Yes [id number] 40mg Take 1 [facility] n 40 mg 2-17 tablet by ity of tablet 00:00: mouth [place] 00 daily. Medical Branch terazosin 2 2020-06 Yes [id number] TAKE 1 [facility] mg capsule 2-17 CAPSULE BY ity of 00:00: MOUTH [place] 00 EVERY DAY Medical IN THE Branch EVENING Insulin 2020-06 Yes [id number] 15U inject 15 U nivers Glargine 2-17 Units ity of ([facility]US 00:00: under the [facility] 00 skin Medical U-100 daily. Branch INSULIN) 100 unit/mL (3 mL) injection felodipine 2020-06 Yes [id number] TAKE 1 U nivers 10 mg 24 hr 2-17 TABLET BY ity of tablet 00:00: MOUTH [place] 00 DAILY. Medical Branch lisinopriL 2020-06 Yes [id number] 2.5mg Take 1 [facility] 2.5 mg 2-17 tablet by ity of tablet 00:00: mouth [place] 00 daily. Medical Branch metoprolol 2020-06 Yes [id number] 25mg Take 1 U nivers succinate 2-17 tablet by ity o f XL 25 mg 24 00:00: mouth 2 [facility] as hr tablet 00 (two) Medical times [place] daily. blood sugar 2020-06 Yes [id number] USE TO [facility] diagnostic 2-17 TEST TWICE ity of (ONETOUCH 00:00: DAILY [place] ULTRA BLUE 00 E11.9 Medical TEST STRIP) Branch strip rosuvastati 2020-06 Yes [id number] 40mg Take 1 [facility] n 40 mg 2-17 tablet by ity of tablet 00:00: mouth [place] 00 daily. Medical Branch terazosin 2 2020-06 Yes [id number] TAKE 1 [facility] mg capsule 2-17 CAPSULE BY ity of 00:00: MOUTH [place] 00 EVERY DAY Medical IN THE Branch EVENING Insulin 2020-06 Yes [id number] 15U inject 15 U nivers Glargine 2-17 Units ity of ([facility]ANTUS 00:00: under the [facility] 00 skin Medical U-100 daily. Branch INSULIN) 100 unit/mL (3 mL) injection felodipine 2020-06 Yes [id number] TAKE 1 U nivers 10 mg 24 hr 2-17 TABLET BY ity of tablet 00:00: MOUTH [place] 00 DAILY. Medical Branch lisinopriL 2020-06 Yes [id number] 2.5mg Take 1 [facility] 2.5 mg 2-17 tablet by ity of tablet 00:00: mouth [place] 00 daily. Medical Branch metoprolol 2020-06 Yes [id number] 25mg Take 1 U nivers succinate 2-17 tablet by ity o f XL 25 mg 24 00:00: mouth 2 [facility] as hr tablet 00 (two) Medical times [place] daily. blood sugar 2020-06 Yes [id number] USE TO [facility] diagnostic 2-17 TEST TWICE ity of (ONETOUCH 00:00: DAILY [place] ULTRA BLUE 00 E11.9 Medical TEST STRIP) Branch strip rosuvastati 2020-06 Yes [id number] 40mg Take 1 [facility] n 40 mg 2-17 tablet by ity of tablet 00:00: mouth [place] 00 daily. Medical Branch terazosin 2 2020-06 Yes [id number] TAKE 1 [facility] mg capsule 2-17 CAPSULE BY ity of 00:00: MOUTH [place] 00 EVERY DAY Medical IN THE Branch EVENING Insulin 2020-06 Yes [id number] 15U inject 15 U nivers Glargine 2-17 Units ity of (LANTUS 00:00: under the [place] [facility] 00 skin Medical U-100 daily. Branch INSULIN) 100 unit/mL (3 mL) injection felodipine 2020-06 Yes [id number] TAKE 1 U nivers 10 mg 24 hr 2-17 TABLET BY ity of tablet 00:00: MOUTH [place] 00 DAILY. Medical Branch lisinopriL 2020-06 Yes [id number] 2.5mg Take 1 [facility] 2.5 mg 2-17 tablet by ity of tablet 00:00: mouth [place] 00 daily. Medical Branch metoprolol 2020-06 Yes [id number] 25mg Take 1 U nivers succinate 2-17 tablet by ity o f XL 25 mg 24 00:00: mouth 2 [facility] as hr tablet 00 (two) Medical times [place] daily. blood sugar 2020-06 Yes [id number] USE TO [facility] diagnostic 2-17 TEST TWICE ity of (ONETOUCH 00:00: DAILY [place] ULTRA BLUE 00 E11.9 Medical TEST STRIP) Branch strip rosuvastati 2020-06 Yes [id number] 40mg Take 1 [facility] n 40 mg 2-17 tablet by ity of tablet 00:00: mouth [place] 00 daily. Medical Branch terazosin 2 2020-06 Yes [id number] TAKE 1 [facility] mg capsule 2-17 CAPSULE BY ity of 00:00: MOUTH [place] 00 EVERY DAY Medical IN THE Branch EVENING Insulin 2020-06 Yes [id number] 15U inject 15 U nivers Glargine 2-17 Units ity of (LANTUS 00:00: under the [facility] 00 skin Medical U-100 daily. Branch INSULIN) 100 unit/mL (3 mL) injection felodipine 2020-06 Yes [id number] TAKE 1 U nivers 10 mg 24 hr 2-17 TABLET BY ity of tablet 00:00: MOUTH [place] 00 DAILY. Medical Branch lisinopriL 2020-06 Yes [id number] 2.5mg Take 1 [facility] 2.5 mg 2-17 tablet by ity of tablet 00:00: mouth [place] 00 daily. Medical Branch metoprolol 2020-06 Yes [id number] 25mg Take 1 U nivers succinate 2-17 tablet by ity o f XL 25 mg 24 00:00: mouth 2 [facility] as hr tablet 00 (two) Medical times Branch daily. blood sugar 2020-06 Yes [id number] USE TO [facility] diagnostic 2-17 TEST TWICE ity of (ONETOUCH 00:00: DAILY [place] ULTRA BLUE 00 E11.9 Medical TEST STRIP) Branch strip rosuvastati 2020-06 Yes [id number] 40mg Take 1 [facility] n 40 mg 2-17 tablet by ity of tablet 00:00: mouth [place] 00 daily. Medical Branch terazosin 2 2020-06 Yes [id number] TAKE 1 [facility] mg capsule 2-17 CAPSULE BY ity of 00:00: MOUTH [place] 00 EVERY DAY Medical IN THE Branch EVENING Insulin 2020-06 Yes [id number] 15U inject 15 U nivers Glargine 2-17 Units ity of (LANTUS 00:00: under the [facility] 00 skin Medical U-100 daily. Branch INSULIN) 100 unit/mL (3 mL) injection felodipine 2020-06 Yes [id number] TAKE 1 U nivers 10 mg 24 hr 2-17 TABLET BY ity of tablet 00:00: MOUTH [place] 00 DAILY. Medical Branch lisinopriL 2020-06 Yes [id number] 2.5mg Take 1 [facility] 2.5 mg 2-17 tablet by ity of tablet 00:00: mouth [place] 00 daily. Medical Branch metoprolol 2020-06 Yes [id number] 25mg Take 1 U nivers succinate 2-17 tablet by ity o f XL 25 mg 24 00:00: mouth 2 [facility] as hr tablet 00 (two) Medical [facility] daily. blood sugar 2020-06 Yes [id number] USE TO [facility] diagnostic 2-17 TEST TWICE ity of (ONETOUCH 00:00: DAILY [place] ULTRA BLUE 00 E11.9 Medical TEST STRIP) Branch strip rosuvastati 2020-06 Yes [id number] 40mg Take 1 [facility] n 40 mg 2-17 tablet by ity of tablet 00:00: mouth [place] 00 daily. Medical Branch terazosin 2 2020-06 Yes [id number] TAKE 1 [facility] mg capsule 2-17 CAPSULE BY ity of 00:00: MOUTH [place] 00 EVERY DAY Medical IN THE Branch EVENING Insulin 2020-06 Yes [id number] 15U inject 15 U nivers Glargine 2-17 Units ity of (LANTUS 00:00: under the [place] [facility] 00 skin Medical U-100 daily. Branch INSULIN) 100 unit/mL (3 mL) injection felodipine 2020-06 Yes [id number] TAKE 1 U nivers 10 mg 24 hr 2-17 TABLET BY ity of tablet 00:00: MOUTH [place] 00 DAILY. Medical Branch lisinopriL 2020-06 Yes [id number] 2.5mg Take 1 [facility] 2.5 mg 2-17 tablet by ity of tablet 00:00: mouth [place] 00 daily. Medical Branch metoprolol 2020-06 Yes [id number] 25mg Take 1 U nivers succinate 2-17 tablet by ity o f XL 25 mg 24 00:00: mouth 2 [facility] as hr tablet 00 (two) Medical [facility] daily. blood sugar 2020-06 Yes [id number] USE TO [facility] diagnostic 2-17 TEST TWICE ity of (ONETOUCH 00:00: DAILY [place] ULTRA BLUE 00 E11.9 Medical TEST STRIP) Branch strip rosuvastati 2020-06 Yes [id number] 40mg Take 1 [facility] n 40 mg 2-17 tablet by ity of tablet 00:00: mouth [place] 00 daily. Medical Branch terazosin 2 2020-06 Yes [id number] TAKE 1 [facility] mg capsule 2-17 CAPSULE BY ity of 00:00: MOUTH [place] 00 EVERY DAY Medical IN THE Branch EVENING Insulin 2020-06 Yes [id number] 15U inject 15 U nivers Glargine 2-17 Units ity of (LANTUS 00:00: under the [facility] 00 skin Medical U-100 daily. Branch INSULIN) 100 unit/mL (3 mL) injection felodipine 2020-06 Yes [id number] TAKE 1 U nivers 10 mg 24 hr 2-17 TABLET BY ity of tablet 00:00: MOUTH [place] 00 DAILY. Medical Branch lisinopriL 2020-06 Yes [id number] 2.5mg Take 1 [facility] 2.5 mg 2-17 tablet by ity of tablet 00:00: mouth [place] 00 daily. Medical Branch metoprolol 2020-06 Yes [id number] 25mg Take 1 U nivers succinate 2-17 tablet by ity o f XL 25 mg 24 00:00: mouth 2 [facility] as hr tablet 00 (two) Medical [facility] daily. blood sugar 2020-06 Yes [id number] USE TO [facility] diagnostic 2-17 TEST TWICE ity of (ONETOUCH 00:00: DAILY [place] ULTRA BLUE 00 E11.9 Medical TEST STRIP) Branch strip rosuvastati 2020-06 Yes [id number] 40mg Take 1 [facility] n 40 mg 2-17 tablet by ity of tablet 00:00: mouth [place] 00 daily. Medical Branch terazosin 2 2020-06 Yes [id number] TAKE 1 [facility] mg capsule 2-17 CAPSULE BY ity of 00:00: MOUTH [place] 00 EVERY DAY Medical IN THE Branch EVENING Insulin 2020-06 Yes [id number] 15U inject 15 U nivers Glargine 2-17 Units ity of (LANTUS 00:00: under the [facility] 00 skin Medical U-100 daily. Branch INSULIN) 100 unit/mL (3 mL) injection felodipine 2020-06 Yes [id number] TAKE 1 U nivers 10 mg 24 hr 2-17 TABLET BY ity of tablet 00:00: MOUTH [place] 00 DAILY. Medical Branch lisinopriL 2020-06 Yes [id number] 2.5mg Take 1 [facility] 2.5 mg 2-17 tablet by ity of tablet 00:00: mouth [place] 00 daily. Medical Branch metoprolol 2020-06 Yes [id number] 25mg Take 1 U nivers succinate 2-17 tablet by ity o f XL 25 mg 24 00:00: mouth 2 [facility] as hr tablet 00 (two) Medical [facility] daily. blood sugar 2020-06 Yes [id number] USE TO [facility] diagnostic 2-17 TEST TWICE ity of (ONETOUCH 00:00: DAILY [place] ULTRA BLUE 00 E11.9 Medical TEST STRIP) Branch strip rosuvastati 2020-06 Yes [id number] 40mg Take 1 [facility] n 40 mg 2-17 tablet by ity of tablet 00:00: mouth [place] 00 daily. Medical Branch terazosin 2 2020-06 Yes [id number] TAKE 1 [facility] mg capsule 2-17 CAPSULE BY ity of 00:00: MOUTH [place] 00 EVERY DAY Medical IN THE Branch EVENING Insulin 2020-06 Yes [id number] 15U inject 15 U nivers Glargine 2-17 Units ity of (LANTUS 00:00: under the [place] [facility] 00 skin Medical U-100 daily. [place] INSULIN) 100 unit/mL (3 mL) injection felodipine 2020-06 Yes [id number] TAKE 1 U nivers 10 mg 24 hr 2-17 TABLET BY ity of tablet 00:00: MOUTH [place] 00 DAILY. Medical Branch lisinopriL 2020-06 Yes [id number] 2.5mg Take 1 [facility] 2.5 mg 2-17 tablet by ity of tablet 00:00: mouth [place] 00 daily. Medical Branch metoprolol 2020-06 Yes [id number] 25mg Take 1 U nivers succinate 2-17 tablet by ity o f XL 25 mg 24 00:00: mouth 2 [facility] as hr tablet 00 (two) Medical times [place] daily. blood sugar 2020-06 Yes [id number] USE TO [facility] diagnostic 2-17 TEST TWICE ity of (ONETOUCH 00:00: DAILY [place] ULTRA BLUE 00 E11.9 Medical TEST STRIP) Branch strip rosuvastati 2020-06 Yes [id number] 40mg Take 1 [facility] n 40 mg 2-17 tablet by ity of tablet 00:00: mouth [place] 00 daily. Medical Branch terazosin 2 2020-06 Yes [id number] TAKE 1 [facility] mg capsule 2-17 CAPSULE BY ity of 00:00: MOUTH [place] 00 EVERY DAY Medical IN THE Branch EVENING Insulin 2020-06 Yes [id number] 15U inject 15 U nivers Glargine 2-17 Units ity of (LANTUS 00:00: under the [place] [facility] 00 skin Medical U-100 daily. [place] INSULIN) 100 unit/mL (3 mL) injection felodipine 2020-06 Yes [id number] TAKE 1 U nivers 10 mg 24 hr 2-17 TABLET BY ity of tablet 00:00: MOUTH [place] 00 DAILY. Medical Branch lisinopriL 2020-06 Yes [id number] 2.5mg Take 1 [facility] 2.5 mg 2-17 tablet by ity of tablet 00:00: mouth [place] 00 daily. Medical Branch metoprolol 2020-06 Yes [id number] 25mg Take 1 U nivers succinate 2-17 tablet by ity o f XL 25 mg 24 00:00: mouth 2 [facility] as hr tablet 00 (two) Medical times [place] daily. blood sugar 2020-06 Yes [id number] USE TO [facility] diagnostic 2-17 TEST TWICE ity of (ONETOUCH 00:00: DAILY [place] ULTRA BLUE 00 E11.9 Medical TEST STRIP) Branch strip rosuvastati 2020-06 Yes [id number] 40mg Take 1 [facility] n 40 mg 2-17 tablet by ity of tablet 00:00: mouth [place] 00 daily. Medical Branch terazosin 2 2020-06 Yes [id number] TAKE 1 [facility] mg capsule 2-17 CAPSULE BY ity of 00:00: MOUTH [place] 00 EVERY DAY Medical IN THE Branch EVENING Insulin 2020-06 Yes [id number] 15U inject 15 U nivers Glargine 2-17 Units ity of (LANTUS 00:00: under the [place] [facility] 00 skin Medical U-100 daily. Branch INSULIN) 100 unit/mL (3 mL) injection felodipine 2020-06 Yes [id number] TAKE 1 U nivers 10 mg 24 hr 2-17 TABLET BY ity of tablet 00:00: MOUTH [place] 00 DAILY. Medical Branch lisinopriL 2020-06 Yes [id number] 2.5mg Take 1 [facility] 2.5 mg 2-17 tablet by ity of tablet 00:00: mouth [place] 00 daily. Medical Branch metoprolol 2020-06 Yes [id number] 25mg Take 1 U nivers succinate 2-17 tablet by ity o f XL 25 mg 24 00:00: mouth 2 [facility] as hr tablet 00 (two) Medical times [place] daily. blood sugar 2020-06 Yes [id number] USE TO [facility] diagnostic 2-17 TEST TWICE ity of (ONETOUCH 00:00: DAILY [place] ULTRA BLUE 00 E11.9 Medical TEST STRIP) Branch strip rosuvastati 2020-06 Yes [id number] 40mg Take 1 [facility] n 40 mg 2-17 tablet by ity of tablet 00:00: mouth [place] 00 daily. Medical Branch terazosin 2 2020-06 Yes [id number] TAKE 1 [facility] mg capsule 2-17 CAPSULE BY ity of 00:00: MOUTH [place] 00 EVERY DAY Medical IN THE Branch EVENING Insulin 2020-06 Yes [id number] 15U inject 15 U nivers Glargine 2-17 Units ity of (LANTUS 00:00: under the [place] [address] skin Medical U-100 daily. Branch INSULIN) 100 unit/mL (3 mL) injection felodipine 2020-06 Yes [id number] TAKE 1 U nivers 10 mg 24 hr 2-17 TABLET BY ity of tablet 00:00: MOUTH [place] 00 DAILY. Medical Branch lisinopriL 2020-06 Yes [id number] 2.5mg Take 1 [facility] 2.5 mg 2-17 tablet by ity of tablet 00:00: mouth [place] 00 daily. Medical Branch metoprolol 2020-06 Yes [id number] 25mg Take 1 U nivers succinate 2-17 tablet by ity o f XL 25 mg 24 00:00: mouth 2 [facility] as hr tablet 00 (two) Medical times Branch daily. blood sugar 2020-06 Yes [id number] USE TO [facility] diagnostic 2-17 TEST TWICE ity of (ONETOUCH 00:00: DAILY [place] ULTRA BLUE 00 E11.9 Medical TEST STRIP) Branch strip rosuvastati 2020-06 Yes [id number] 40mg Take 1 [facility] n 40 mg 2-17 tablet by ity of tablet 00:00: mouth [place] 00 daily. Medical Branch terazosin 2 2020-06 Yes [id number] TAKE 1 [facility] mg capsule 2-17 CAPSULE BY ity of 00:00: MOUTH [place] 00 EVERY DAY Medical IN THE Branch EVENING Insulin 2020-06 Yes [id number] 15U inject 15 U nivers Glargine 2-17 Units ity of (LANTUS 00:00: under the [facility] 00 skin Medical U-100 daily. [place] INSULIN) 100 unit/mL (3 mL) injection felodipine 2020-06 Yes [id number] TAKE 1 U nivers 10 mg 24 hr 2-17 TABLET BY ity of tablet 00:00: MOUTH [place] 00 DAILY. Medical Branch lisinopriL 2020-06 Yes [id number] 2.5mg Take 1 [facility] 2.5 mg 2-17 tablet by ity of tablet 00:00: mouth [place] 00 daily. Medical Branch metoprolol 2020-06 Yes [id number] 25mg Take 1 U nivers succinate 2-17 tablet by ity o f XL 25 mg 24 00:00: mouth 2 [facility] as hr tablet 00 (two) Medical times [place] daily. blood sugar 2020-06 Yes [id number] USE TO [facility] diagnostic 2-17 TEST TWICE ity of (ONETOUCH 00:00: DAILY [place] ULTRA BLUE 00 E11.9 Medical TEST STRIP) Branch strip rosuvastati 2020-06 Yes [id number] 40mg Take 1 [facility] n 40 mg 2-17 tablet by ity of tablet 00:00: mouth [place] 00 daily. Medical Branch terazosin 2 2020-06 Yes [id number] TAKE 1 [facility] mg capsule 2-17 CAPSULE BY ity of 00:00: MOUTH [place] 00 EVERY DAY Medical IN THE Branch EVENING Insulin 2020-06 Yes [id number] 15U inject 15 U nivers Glargine 2-17 Units ity of (LANTUS 00:00: under the [place] [facility] 00 skin Medical U-100 daily. Branch INSULIN) 100 unit/mL (3 mL) injection felodipine 2020-06 Yes [id number] TAKE 1 U nivers 10 mg 24 hr 2-17 TABLET BY ity of tablet 00:00: MOUTH [place] 00 DAILY. Medical Branch lisinopriL 2020-06 Yes [id number] 2.5mg Take 1 [facility] 2.5 mg 2-17 tablet by ity of tablet 00:00: mouth [place] 00 daily. Medical Branch metoprolol 2020-06 Yes [id number] 25mg Take 1 U nivers succinate 2-17 tablet by ity o f XL 25 mg 24 00:00: mouth 2 [facility] as hr tablet 00 (two) Medical times [place] daily. blood sugar 2020-06 Yes [id number] USE TO [facility] diagnostic 2-17 TEST TWICE ity of (ONETOUCH 00:00: DAILY [place] ULTRA BLUE 00 E11.9 Medical TEST STRIP) Branch strip rosuvastati 2020-06 Yes [id number] 40mg Take 1 [facility] n 40 mg 2-17 tablet by ity of tablet 00:00: mouth [place] 00 daily. Medical Branch terazosin 2 2020-06 Yes [id number] TAKE 1 [facility] mg capsule 2-17 CAPSULE BY ity of 00:00: MOUTH [place] 00 EVERY DAY Medical IN THE Branch EVENING Insulin 2020-06 Yes [id number] 15U inject 15 U nivers Glargine 2-17 Units ity of (LANTUS 00:00: under the [place] [address] skin Medical U-100 daily. Branch INSULIN) 100 unit/mL (3 mL) injection felodipine 2020-06 Yes [id number] TAKE 1 U nivers 10 mg 24 hr 2-17 TABLET BY ity of tablet 00:00: MOUTH [place] 00 DAILY. Medical Branch lisinopriL 2020-06 Yes [id number] 2.5mg Take 1 [facility] 2.5 mg 2-17 tablet by ity of tablet 00:00: mouth [place] 00 daily. Medical Branch metoprolol 2020-06 Yes [id number] 25mg Take 1 U nivers succinate 2-17 tablet by ity o f XL 25 mg 24 00:00: mouth 2 [facility] as hr tablet 00 (two) Medical times [place] daily. blood sugar 2020-06 Yes [id number] USE TO [facility] diagnostic 2-17 TEST TWICE ity of (ONETOUCH 00:00: DAILY [place] ULTRA BLUE 00 E11.9 Medical TEST STRIP) Branch strip rosuvastati 2020-06 Yes [id number] 40mg Take 1 [facility] n 40 mg 2-17 tablet by ity of tablet 00:00: mouth [place] 00 daily. Medical Branch terazosin 2 2020-06 Yes [id number] TAKE 1 [facility] mg capsule 2-17 CAPSULE BY ity of 00:00: MOUTH [place] 00 EVERY DAY Medical IN THE Branch EVENING Insulin 2020-06 Yes [id number] 15U inject 15 U nivers Glargine 2-17 Units ity of (LANTUS 00:00: under the [place] [address] skin Medical U-100 daily. Branch INSULIN) 100 unit/mL (3 mL) injection felodipine 2020-06 Yes [id number] TAKE 1 U nivers 10 mg 24 hr 2-17 TABLET BY ity of tablet 00:00: MOUTH [place] 00 DAILY. Medical Branch lisinopriL 2020-06 Yes [id number] 2.5mg Take 1 [facility] 2.5 mg 2-17 tablet by ity of tablet 00:00: mouth [place] 00 daily. Medical Branch metoprolol 2020-06 Yes [id number] 25mg Take 1 U nivers succinate 2-17 tablet by ity o f XL 25 mg 24 00:00: mouth 2 [facility] as hr tablet 00 (two) Medical times [place] daily. blood sugar 2020-06 Yes [id number] USE TO [facility] diagnostic 2-17 TEST TWICE ity of (ONETOUCH 00:00: DAILY [place] ULTRA BLUE 00 E11.9 Medical TEST STRIP) Branch strip rosuvastati 2020-06 Yes [id number] 40mg Take 1 [facility] n 40 mg 2-17 tablet by ity of tablet 00:00: mouth [place] 00 daily. Medical Branch terazosin 2 2020-06 Yes [id number] TAKE 1 [facility] mg capsule 2-17 CAPSULE BY [facility] of 00:00: MOUTH [place] 00 EVERY DAY Medical IN THE Branch EVENING Insulin 2020-06 Yes [id number] 15U inject 15 U nivers Glargine 2-17 Units [facility] of (LANTUS 00:00: under the [place] [facility] 00 skin Medical U-100 daily. [place] INSULIN) 100 unit/mL (3 mL) injection felodipine 2020-06 Yes [id number] TAKE 1 U nivers 10 mg 24 hr 2-17 TABLET BY [facility] of tablet 00:00: MOUTH [place] 00 DAILY. Medical Branch lisinopriL 2020-06 Yes [id number] 2.5mg Take 1 [facility] 2.5 mg 2-17 tablet by [facility] of tablet 00:00: mouth [place] 00 daily. Medical Branch metoprolol 2020-06 Yes [id number] 25mg Take 1 U nivers succinate 2-17 tablet by ity o f XL 25 mg 24 00:00: mouth 2 [facility] as hr tablet 00 (two) Medical [facility] daily. blood sugar 2020-06 Yes [id number] USE TO [facility] diagnostic 2-17 TEST TWICE ity of (ONETOUCH 00:00: DAILY [place] ULTRA BLUE 00 E11.9 Medical TEST STRIP) Branch strip rosuvastati 2020-06 Yes [id number] 40mg Take 1 [facility] n 40 mg 2-17 tablet by [facility] of tablet 00:00: mouth [place] 00 daily. Medical Branch terazosin 2 2020-06 Yes [id number] TAKE 1 [facility] mg capsule 2-17 CAPSULE BY ity of 00:00: MOUTH [place] 00 EVERY DAY Medical IN THE Branch EVENING Insulin 2020-06 Yes [id number] 15U inject 15 U nivers Glargine 2-17 Units ity of (LANTUS 00:00: under the [facility] 00 skin Medical U-100 daily. Branch INSULIN) 100 unit/mL (3 mL) injection felodipine 2020-06 Yes [id number] TAKE 1 U nivers 10 mg 24 hr 2-17 TABLET BY it[facility] of tablet 00:00: MOUTH [place] 00 DAILY. Medical Branch lisinopriL 2020-06 Yes [id number] 2.5mg Take 1 [facility] 2.5 mg 2-17 tablet by ity of tablet 00:00: mouth [place] 00 daily. Medical Branch metoprolol 2020-06 Yes [id number] 25mg Take 1 U nivers succinate 2-17 tablet by ity o f XL 25 mg 24 00:00: mouth 2 [facility] as hr tablet 00 (two) Medical times [place] daily. blood sugar 2020-06 Yes [id number] USE TO [facility] diagnostic 2-17 TEST TWICE ity of (ONETOUCH 00:00: DAILY [place] ULTRA BLUE 00 E11.9 Medical TEST STRIP) Branch strip rosuvastati 2020-06 Yes [id number] 40mg Take 1 [facility] n 40 mg 2-17 tablet by it[facility] of tablet 00:00: mouth [place] 00 daily. Medical Branch terazosin 2 2020-06 Yes [id number] TAKE 1 [facility] mg capsule 2-17 CAPSULE BY [facility] of 00:00: MOUTH [place] 00 EVERY DAY Medical IN THE Branch EVENING Insulin 2020-06 Yes [id number] 15U inject 15 U nivers Glargine 2-17 Units ity of (LANTUS 00:00: under the [facility] 00 skin Medical U-100 daily. Branch INSULIN) 100 unit/mL (3 mL) injection felodipine 2020-06 Yes [id number] TAKE 1 U nivers 10 mg 24 hr 2-17 TABLET BY it[facility] of tablet 00:00: MOUTH [place] 00 DAILY. Medical Branch lisinopriL 2020-06 Yes [id number] 2.5mg Take 1 [facility] 2.5 mg 2-17 tablet by it[facility] of tablet 00:00: mouth [place] 00 daily. Medical Branch metoprolol 2020-06 Yes [id number] 25mg Take 1 U nivers succinate 2-17 tablet by ity o f XL 25 mg 24 00:00: mouth 2 [facility] as hr tablet 00 (two) Medical times [place] daily. blood sugar 2020-06 Yes [id number] USE TO [facility] diagnostic 2-17 TEST TWICE ity of (ONETOUCH 00:00: DAILY [place] ULTRA BLUE 00 E11.9 Medical TEST STRIP) Branch strip rosuvastati 2020-06 Yes [id number] 40mg Take 1 [facility] n 40 mg 2-17 tablet by ity of tablet 00:00: mouth [place] 00 daily. Medical Branch terazosin 2 2020-06 Yes [id number] TAKE 1 [facility] mg capsule 2-17 CAPSULE BY ity of 00:00: MOUTH [place] 00 EVERY DAY Medical IN THE Branch EVENING Insulin 2020-06 Yes [id number] 15U inject 15 U nivers Glargine 2-17 Units ity of (LANTUS 00:00: under the [place] [facility] 00 skin Medical U-100 daily. Branch INSULIN) 100 unit/mL (3 mL) injection felodipine 2020-06 Yes [id number] TAKE 1 U nivers 10 mg 24 hr 2-17 TABLET BY it[facility] of tablet 00:00: MOUTH [place] 00 DAILY. Medical Branch lisinopriL 2020-06 Yes [id number] 2.5mg Take 1 [facility] 2.5 mg 2-17 tablet by ity of tablet 00:00: mouth [place] 00 daily. Medical Branch metoprolol 2020-06 Yes [id number] 25mg Take 1 U nivers succinate 2-17 tablet by ity o f XL 25 mg 24 00:00: mouth 2 [facility] as hr tablet 00 (two) Medical times [place] daily. blood sugar 2020-06 Yes [id number] USE TO [facility] diagnostic 2-17 TEST TWICE ity of (ONETOUCH 00:00: DAILY [place] ULTRA BLUE 00 E11.9 Medical TEST STRIP) Branch strip rosuvastati 2020-06 Yes [id number] 40mg Take 1 [facility] n 40 mg 2-17 tablet by it[facility] of tablet 00:00: mouth [place] 00 daily. Medical Branch terazosin 2 2020-06 Yes [id number] TAKE 1 [facility] mg capsule 2-17 CAPSULE BY ity of 00:00: MOUTH [place] 00 EVERY DAY Medical IN THE Branch EVENING Insulin 2020-06 Yes [id number] 15U inject 15 U nivers Glargine 2-17 Units ity of (LANTUS 00:00: under the [place] [facility] 00 skin Medical U-100 daily. Branch INSULIN) 100 unit/mL (3 mL) injection felodipine 2020-06 Yes [id number] TAKE 1 U nivers 10 mg 24 hr 2-17 TABLET BY ity of tablet 00:00: MOUTH [place] 00 DAILY. Medical Branch lisinopriL 2020-06 Yes [id number] 2.5mg Take 1 [facility] 2.5 mg 2-17 tablet by ity of tablet 00:00: mouth [place] 00 daily. Medical Branch metoprolol 2020-06 Yes [id number] 25mg Take 1 U nivers succinate 2-17 tablet by ity o f XL 25 mg 24 00:00: mouth 2 [facility] as hr tablet 00 (two) Medical times [place] daily. blood sugar 2020-06 Yes [id number] USE TO [facility] diagnostic 2-17 TEST TWICE ity of (ONETOUCH 00:00: DAILY [place] ULTRA BLUE 00 E11.9 Medical TEST STRIP) Branch strip rosuvastati 2020-06 Yes [id number] 40mg Take 1 [facility] n 40 mg 2-17 tablet by it[facility] of tablet 00:00: mouth [place] 00 daily. Medical Branch terazosin 2 2020-06 Yes [id number] TAKE 1 [facility] mg capsule 2-17 CAPSULE BY ity of 00:00: MOUTH [place] 00 EVERY DAY Medical IN THE [place] EVENING Insulin 2020-06 Yes [id number] 15U inject 15 U nivers Glargine 2-17 Units ity of (LANTUS 00:00: under the [place] [facility] 00 skin Medical U-100 daily. [place] INSULIN) 100 unit/mL (3 mL) injection felodipine 2020-06 Yes [id number] TAKE 1 U nivers 10 mg 24 hr 2-17 TABLET BY ity of tablet 00:00: MOUTH [place] 00 DAILY. Medical Branch lisinopriL 2020-06 Yes [id number] 2.5mg Take 1 [facility] 2.5 mg 2-17 tablet by ity of tablet 00:00: mouth [place] 00 daily. Medical Branch metoprolol 2020-06 Yes [id number] 25mg Take 1 U nivers succinate 2-17 tablet by ity o f XL 25 mg 24 00:00: mouth 2 [facility] as hr tablet 00 (two) Medical [facility] daily. blood sugar 2020-06 Yes [id number] USE TO [facility] diagnostic 2-17 TEST TWICE ity of (ONETOUCH 00:00: DAILY [place] ULTRA BLUE 00 E11.9 Medical TEST STRIP) Branch strip rosuvastati 2020-06 Yes [id number] 40mg Take 1 [facility] n 40 mg 2-17 tablet by ity of tablet 00:00: mouth [place] 00 daily. Medical Branch terazosin 2 2020-06 Yes [id number] TAKE 1 [facility] mg capsule 2-17 CAPSULE BY ity of 00:00: MOUTH [place] 00 EVERY DAY Medical IN THE Branch EVENING Insulin 2020-06 Yes [id number] 15U inject 15 U nivers Glargine 2-17 Units ity of (LANTUS 00:00: under the [facility] 00 skin Medical U-100 daily. [place] INSULIN) 100 unit/mL (3 mL) injection felodipine 2020-06 Yes [id number] TAKE 1 U nivers 10 mg 24 hr 2-17 TABLET BY ity of tablet 00:00: MOUTH [place] 00 DAILY. Medical Branch lisinopriL 2020-06 Yes [id number] 2.5mg Take 1 [facility] 2.5 mg 2-17 tablet by ity of tablet 00:00: mouth [place] 00 daily. Medical Branch metoprolol 2020-06 Yes [id number] 25mg Take 1 U nivers succinate 2-17 tablet by ity o f XL 25 mg 24 00:00: mouth 2 [facility] as hr tablet 00 (two) Medical times [place] daily. blood sugar 2020-06 Yes [id number] USE TO [facility] diagnostic 2-17 TEST TWICE ity of (ONETOUCH 00:00: DAILY [place] ULTRA BLUE 00 E11.9 Medical TEST STRIP) Branch strip rosuvastati 2020-06 Yes [id number] 40mg Take 1 [facility] n 40 mg 2-17 tablet by ity of tablet 00:00: mouth [place] 00 daily. Medical Branch terazosin 2 2020-06 Yes [id number] TAKE 1 [facility] mg capsule 2-17 CAPSULE BY ity of 00:00: MOUTH [place] 00 EVERY DAY Medical IN THE Branch EVENING Insulin 2020-06 Yes [id number] 15U inject 15 U nivers Glargine 2-17 Units ity of (LANTUS 00:00: under the [facility] 00 skin Medical U-100 daily. [place] INSULIN) 100 unit/mL (3 mL) injection felodipine 2020-06 Yes [id number] TAKE 1 U nivers 10 mg 24 hr 2-17 TABLET BY ity of tablet 00:00: MOUTH [place] 00 DAILY. Medical Branch lisinopriL 2020-06 Yes [id number] 2.5mg Take 1 [facility] 2.5 mg 2-17 tablet by ity of tablet 00:00: mouth [place] 00 daily. Medical Branch metoprolol 2020-06 Yes [id number] 25mg Take 1 U nivers succinate 2-17 tablet by ity o f XL 25 mg 24 00:00: mouth 2 [facility] as hr tablet 00 (two) Medical times [place] daily. blood sugar 2020-06 Yes [id number] USE TO [facility] diagnostic 2-17 TEST TWICE ity of (ONETOUCH 00:00: DAILY [place] ULTRA BLUE 00 E11.9 Medical TEST STRIP) Branch strip rosuvastati 2020-06 Yes [id number] 40mg Take 1 [facility] n 40 mg 2-17 tablet by ity of tablet 00:00: mouth [place] 00 daily. Medical Branch terazosin 2 2020-06 Yes [id number] TAKE 1 [facility] mg capsule 2-17 CAPSULE BY ity of 00:00: MOUTH [place] 00 EVERY DAY Medical IN THE Branch EVENING Insulin 2020-06 Yes [id number] 15U inject 15 U nivers Glargine 2-17 Units ity of (LANTUS 00:00: under the [place] [facility] 00 skin Medical U-100 daily. Branch INSULIN) 100 unit/mL (3 mL) injection felodipine 2020-06 Yes [id number] TAKE 1 U nivers 10 mg 24 hr 2-17 TABLET BY ity of tablet 00:00: MOUTH [place] 00 DAILY. Medical Branch lisinopriL 2020-06 Yes [id number] 2.5mg Take 1 [facility] 2.5 mg 2-17 tablet by ity of tablet 00:00: mouth [place] 00 daily. Medical Branch metoprolol 2020-06 Yes [id number] 25mg Take 1 U nivers succinate 2-17 tablet by ity o f XL 25 mg 24 00:00: mouth 2 [facility] as hr tablet 00 (two) Medical times [place] daily. blood sugar 2020-06 Yes [id number] USE TO [facility] diagnostic 2-17 TEST TWICE ity of (ONETOUCH 00:00: DAILY [place] ULTRA BLUE 00 E11.9 Medical TEST STRIP) Branch strip rosuvastati 2020-06 Yes [id number] 40mg Take 1 [facility] n 40 mg 2-17 tablet by ity of tablet 00:00: mouth [place] 00 daily. Medical Branch terazosin 2 2020-06 Yes [id number] TAKE 1 [facility] mg capsule 2-17 CAPSULE BY ity of 00:00: MOUTH [place] 00 EVERY DAY Medical IN THE [place] EVENING Insulin 2020-06 Yes [id number] 15U inject 15 U nivers Glargine 2-17 Units ity of (LANTUS 00:00: under the [place] [address] skin Medical U-100 daily. [place] INSULIN) 100 unit/mL (3 mL) injection felodipine 2020-06 Yes [id number] TAKE 1 U nivers 10 mg 24 hr 2-17 TABLET BY ity of tablet 00:00: MOUTH [place] 00 DAILY. Medical Branch lisinopriL 2020-06 Yes [id number] 2.5mg Take 1 [facility] 2.5 mg 2-17 tablet by ity of tablet 00:00: mouth [place] 00 daily. Medical Branch metoprolol 2020-06 Yes [id number] 25mg Take 1 U nivers succinate 2-17 tablet by ity o f XL 25 mg 24 00:00: mouth 2 [facility] as hr tablet 00 (two) Medical times [place] daily. blood sugar 2020-06 Yes [id number] USE TO [facility] diagnostic 2-17 TEST TWICE ity of (ONETOUCH 00:00: DAILY [place] ULTRA BLUE 00 E11.9 Medical TEST STRIP) Branch strip rosuvastati 2020-06 Yes [id number] 40mg Take 1 [facility] n 40 mg 2-17 tablet by ity of tablet 00:00: mouth [place] 00 daily. Medical Branch terazosin 2 2020-06 Yes [id number] TAKE 1 [facility] mg capsule 2-17 CAPSULE BY ity of 00:00: MOUTH [place] 00 EVERY DAY Medical IN THE [place] EVENING Insulin 2020-06 Yes [id number] 15U inject 15 U nivers Glargine 2-17 Units ity of (LANTUS 00:00: under the [place] [address] skin Medical U-100 daily. [place] INSULIN) 100 unit/mL (3 mL) injection felodipine 2020-06 Yes [id number] TAKE 1 U nivers 10 mg 24 hr 2-17 TABLET BY ity of tablet 00:00: MOUTH [place] 00 DAILY. Medical Branch lisinopriL 2020-06 Yes [id number] 2.5mg Take 1 [facility] 2.5 mg 2-17 tablet by ity of tablet 00:00: mouth [place] 00 daily. Medical Branch metoprolol 2020-06 Yes [id number] 25mg Take 1 U nivers succinate 2-17 tablet by ity o f XL 25 mg 24 00:00: mouth 2 [facility] as hr tablet 00 (two) Medical times [place] daily. blood sugar 2020-06 Yes [id number] USE TO [facility] diagnostic 2-17 TEST TWICE ity of (ONETOUCH 00:00: DAILY [place] ULTRA BLUE 00 E11.9 Medical TEST STRIP) Branch strip rosuvastati 2020-06 Yes [id number] 40mg Take 1 [facility] n 40 mg 2-17 tablet by ity of tablet 00:00: mouth [place] 00 daily. Medical Branch terazosin 2 2020-06 Yes [id number] TAKE 1 [facility] mg capsule 2-17 CAPSULE BY ity of 00:00: MOUTH [place] 00 EVERY DAY Medical IN THE Branch EVENING Insulin 2020-06 Yes [id number] 15U inject 15 U nivers Glargine 2-17 Units ity of (LANTUS 00:00: under the [place] [address] skin Medical U-100 daily. Branch INSULIN) 100 unit/mL (3 mL) injection felodipine 2020-06 Yes [id number] TAKE 1 U nivers 10 mg 24 hr 2-17 TABLET BY ity of tablet 00:00: MOUTH [place] 00 DAILY. Medical Branch lisinopriL 2020-06 Yes [id number] 2.5mg Take 1 [facility] 2.5 mg 2-17 tablet by ity of tablet 00:00: mouth [place] 00 daily. Medical Branch metoprolol 2020-06 Yes [id number] 25mg Take 1 U nivers succinate 2-17 tablet by ity o f XL 25 mg 24 00:00: mouth 2 [facility] as hr tablet 00 (two) Medical [facility] daily. blood sugar 2020-06 Yes [id number] USE TO [facility] diagnostic 2-17 TEST TWICE ity of (ONETOUCH 00:00: DAILY [place] ULTRA BLUE 00 E11.9 Medical TEST STRIP) Branch strip rosuvastati 2020-06 Yes [id number] 40mg Take 1 [facility] n 40 mg 2-17 tablet by ity of tablet 00:00: mouth [place] 00 daily. Medical Branch terazosin 2 2020-06 Yes [id number] TAKE 1 [facility] mg capsule 2-17 CAPSULE BY ity of 00:00: MOUTH [place] 00 EVERY DAY Medical IN THE Branch EVENING Insulin 2020-06 Yes [id number] 15U inject 15 U nivers Glargine 2-17 Units ity of (LANTUS 00:00: under the [place] [address] skin Medical U-100 daily. [place] INSULIN) 100 unit/mL (3 mL) injection felodipine 2020-06 Yes [id number] TAKE 1 U nivers 10 mg 24 hr 2-17 TABLET BY ity of tablet 00:00: MOUTH [place] 00 DAILY. Medical Branch lisinopriL 2020-06 Yes [id number] 2.5mg Take 1 [facility] 2.5 mg 2-17 tablet by ity of tablet 00:00: mouth [place] 00 daily. Medical Branch metoprolol 2020-06 Yes [id number] 25mg Take 1 U nivers succinate 2-17 tablet by ity o f XL 25 mg 24 00:00: mouth 2 [facility] as hr tablet 00 (two) Medical times [place] daily. blood sugar 2020-06 Yes [id number] USE TO [facility] diagnostic 2-17 TEST TWICE ity of (ONETOUCH 00:00: DAILY [place] ULTRA BLUE 00 E11.9 Medical TEST STRIP) Branch strip rosuvastati 2020-06 Yes [id number] 40mg Take 1 [facility] n 40 mg 2-17 tablet by ity of tablet 00:00: mouth [place] 00 daily. Medical Branch terazosin 2 2020-06 Yes [id number] TAKE 1 [facility] mg capsule 2-17 CAPSULE BY ity of 00:00: MOUTH [place] 00 EVERY DAY Medical IN THE Branch EVENING Insulin 2020-06 Yes [id number] 15U inject 15 U nivers Glargine 2-17 Units ity of (LANTUS 00:00: under the [place] [address] skin Medical U-100 daily. Branch INSULIN) 100 unit/mL (3 mL) injection felodipine 2020-06 Yes [id number] TAKE 1 U nivers 10 mg 24 hr 2-17 TABLET BY ity of tablet 00:00: MOUTH [place] 00 DAILY. Medical Branch lisinopriL 2020-06 Yes [id number] 2.5mg Take 1 [facility] 2.5 mg 2-17 tablet by ity of tablet 00:00: mouth [place] 00 daily. Medical Branch metoprolol 2020-06 Yes [id number] 25mg Take 1 U nivers succinate 2-17 tablet by ity o f XL 25 mg 24 00:00: mouth 2 [facility] as hr tablet 00 (two) Medical times [place] daily. blood sugar 2020-06 Yes [id number] USE TO [facility] diagnostic 2-17 TEST TWICE ity of (ONETOUCH 00:00: DAILY [place] ULTRA BLUE 00 E11.9 Medical TEST STRIP) Branch strip rosuvastati 2020-06 Yes [id number] 40mg Take 1 [facility] n 40 mg 2-17 tablet by ity of tablet 00:00: mouth [place] 00 daily. Medical Branch terazosin 2 2020-06 Yes [id number] TAKE 1 [facility] mg capsule 2-17 CAPSULE BY ity of 00:00: MOUTH [place] 00 EVERY DAY Medical IN THE Branch EVENING Insulin 2020-06 Yes [id number] 15U inject 15 U nivers Glargine 2-17 Units ity of (LANTUS 00:00: under the [place] [address] skin Medical U-100 daily. [place] INSULIN) 100 unit/mL (3 mL) injection felodipine 2020-06 Yes [id number] TAKE 1 U nivers 10 mg 24 hr 2-17 TABLET BY ity of tablet 00:00: MOUTH [place] 00 DAILY. Medical Branch lisinopriL 2020-06 Yes [id number] 2.5mg Take 1 [facility] 2.5 mg 2-17 tablet by ity of tablet 00:00: mouth [place] 00 daily. Medical Branch metoprolol 2020-06 Yes [id number] 25mg Take 1 U nivers succinate 2-17 tablet by ity o f XL 25 mg 24 00:00: mouth 2 [facility] as hr tablet 00 (two) Medical times [place] daily. blood sugar 2020-06 Yes [id number] USE TO [facility] diagnostic 2-17 TEST TWICE ity of (ONETOUCH 00:00: DAILY [place] ULTRA BLUE 00 E11.9 Medical TEST STRIP) Branch strip rosuvastati 2020-06 Yes [id number] 40mg Take 1 [facility] n 40 mg 2-17 tablet by ity of tablet 00:00: mouth [place] 00 daily. Medical Branch terazosin 2 2020-06 Yes [id number] TAKE 1 [facility] mg capsule 2-17 CAPSULE BY ity of 00:00: MOUTH [place] 00 EVERY DAY Medical IN THE Branch EVENING Insulin 2020-06 Yes [id number] 15U inject 15 U nivers Glargine 2-17 Units ity of (LANTUS 00:00: under the [facility] 00 skin Medical U-100 daily. [place] INSULIN) 100 unit/mL (3 mL) injection felodipine 2020-06 Yes [id number] TAKE 1 U nivers 10 mg 24 hr 2-17 TABLET BY ity of tablet 00:00: MOUTH [place] 00 DAILY. Medical Branch lisinopriL 2020-06 Yes [id number] 2.5mg Take 1 [facility] 2.5 mg 2-17 tablet by ity of tablet 00:00: mouth [place] 00 daily. Medical Branch metoprolol 2020-06 Yes [id number] 25mg Take 1 U nivers succinate 2-17 tablet by ity o f XL 25 mg 24 00:00: mouth 2 [facility] as hr tablet 00 (two) Medical times [place] daily. blood sugar 2020-06 Yes [id number] USE TO [facility] diagnostic 2-17 TEST TWICE ity of (ONETOUCH 00:00: DAILY [place] ULTRA BLUE 00 E11.9 Medical TEST STRIP) Branch strip rosuvastati 2020-06 Yes [id number] 40mg Take 1 [facility] n 40 mg 2-17 tablet by ity of tablet 00:00: mouth [place] 00 daily. Medical Branch terazosin 2 2020-06 Yes [id number] TAKE 1 [facility] mg capsule 2-17 CAPSULE BY ity of 00:00: MOUTH [place] 00 EVERY DAY Medical IN THE Branch EVENING Insulin 2020-06 Yes [id number] 15U inject 15 U nivers Glargine 2-17 Units ity of (LANTUS 00:00: under the [place] [facility] 00 skin Medical U-100 daily. Branch INSULIN) 100 unit/mL (3 mL) injection felodipine 2020-06 Yes [id number] TAKE 1 U nivers 10 mg 24 hr 2-17 TABLET BY ity of tablet 00:00: MOUTH [place] 00 DAILY. Medical Branch lisinopriL 2020-06 Yes [id number] 2.5mg Take 1 [facility] 2.5 mg 2-17 tablet by ity of tablet 00:00: mouth [place] 00 daily. Medical Branch metoprolol 2020-06 Yes [id number] 25mg Take 1 U nivers succinate 2-17 tablet by ity o f XL 25 mg 24 00:00: mouth 2 [facility] as hr tablet 00 (two) Medical times [place] daily. blood sugar 2020-06 Yes [id number] USE TO [facility] diagnostic 2-17 TEST TWICE ity of (ONETOUCH 00:00: DAILY [place] ULTRA BLUE 00 E11.9 Medical TEST STRIP) Branch strip rosuvastati 2020-06 Yes [id number] 40mg Take 1 [facility] n 40 mg 2-17 tablet by ity of tablet 00:00: mouth [place] 00 daily. Medical Branch terazosin 2 2020-06 Yes [id number] TAKE 1 [facility] mg capsule 2-17 CAPSULE BY ity of 00:00: MOUTH [place] 00 EVERY DAY Medical IN THE Branch EVENING Insulin 2020-06 Yes [id number] 15U inject 15 U nivers Glargine 2-17 Units ity of (LANTUS 00:00: under the [facility] 00 skin Medical U-100 daily. Branch INSULIN) 100 unit/mL (3 mL) injection felodipine 2020-06 Yes [id number] TAKE 1 U nivers 10 mg 24 hr 2-17 TABLET BY ity of tablet 00:00: MOUTH [place] 00 DAILY. Medical Branch lisinopriL 2020-06 Yes [id number] 2.5mg Take 1 [facility] 2.5 mg 2-17 tablet by ity of tablet 00:00: mouth [place] 00 daily. Medical Branch metoprolol 2020-06 Yes [id number] 25mg Take 1 U nivers succinate 2-17 tablet by ity o f XL 25 mg 24 00:00: mouth 2 [facility] as hr tablet 00 (two) Medical times Branch daily. blood sugar 2020-06 Yes [id number] USE TO [facility] diagnostic 2-17 TEST TWICE ity of (ONETOUCH 00:00: DAILY [place] ULTRA BLUE 00 E11.9 Medical TEST STRIP) Branch strip rosuvastati 2020-06 Yes [id number] 40mg Take 1 [facility] n 40 mg 2-17 tablet by ity of tablet 00:00: mouth [place] 00 daily. Medical Branch terazosin 2 2020-06 Yes [id number] TAKE 1 [facility] mg capsule 2-17 CAPSULE BY ity of 00:00: MOUTH [place] 00 EVERY DAY Medical IN THE Branch EVENING Insulin 2020-06 Yes [id number] 15U inject 15 U nivers Glargine 2-17 Units ity of (LANTUS 00:00: under the [facility] 00 skin Medical U-100 daily. Branch INSULIN) 100 unit/mL (3 mL) injection felodipine 2020-06 Yes [id number] TAKE 1 U nivers 10 mg 24 hr 2-17 TABLET BY ity of tablet 00:00: MOUTH [place] 00 DAILY. Medical Branch lisinopriL 2020-06 Yes [id number] 2.5mg Take 1 [facility] 2.5 mg 2-17 tablet by ity of tablet 00:00: mouth [place] 00 daily. Medical Branch metoprolol 2020-06 Yes [id number] 25mg Take 1 U nivers succinate 2-17 tablet by ity o f XL 25 mg 24 00:00: mouth 2 [facility] as hr tablet 00 (two) Medical [facility] daily. blood sugar 2020-06 Yes [id number] USE TO [facility] diagnostic 2-17 TEST TWICE ity of (ONETOUCH 00:00: DAILY [place] ULTRA BLUE 00 E11.9 Medical TEST STRIP) Branch strip rosuvastati 2020-06 Yes [id number] 40mg Take 1 [facility] n 40 mg 2-17 tablet by ity of tablet 00:00: mouth [place] 00 daily. Medical Branch terazosin 2 2020-06 Yes [id number] TAKE 1 [facility] mg capsule 2-17 CAPSULE BY ity of 00:00: MOUTH [place] 00 EVERY DAY Medical IN THE Branch EVENING Insulin 2020-06 Yes [id number] 15U inject 15 U nivers Glargine 2-17 Units ity of (LANTUS 00:00: under the [place] [facility] 00 skin Medical U-100 daily. [place] INSULIN) 100 unit/mL (3 mL) injection felodipine 2020-06 Yes [id number] TAKE 1 U nivers 10 mg 24 hr 2-17 TABLET BY ity of tablet 00:00: MOUTH [place] 00 DAILY. Medical Branch lisinopriL 2020-06 Yes [id number] 2.5mg Take 1 [facility] 2.5 mg 2-17 tablet by ity of tablet 00:00: mouth [place] 00 daily. Medical Branch metoprolol 2020-06 Yes [id number] 25mg Take 1 U nivers succinate 2-17 tablet by ity o f XL 25 mg 24 00:00: mouth 2 [facility] as hr tablet 00 (two) Medical [facility] daily. blood sugar 2020-06 Yes [id number] USE TO [facility] diagnostic 2-17 TEST TWICE ity of (ONETOUCH 00:00: DAILY [place] ULTRA BLUE 00 E11.9 Medical TEST STRIP) Branch strip rosuvastati 2020-06 Yes [id number] 40mg Take 1 [facility] n 40 mg 2-17 tablet by ity of tablet 00:00: mouth [place] 00 daily. Medical Branch terazosin 2 2020-06 Yes [id number] TAKE 1 [facility] mg capsule 2-17 CAPSULE BY ity of 00:00: MOUTH [place] 00 EVERY DAY Medical IN THE Branch EVENING Insulin 2020-06 Yes [id number] 15U inject 15 U nivers Glargine 2-17 Units ity of (LANTUS 00:00: under the [place] [address] skin Medical U-100 daily. [place] INSULIN) 100 unit/mL (3 mL) injection felodipine 2020-06 Yes [id number] TAKE 1 U nivers 10 mg 24 hr 2-17 TABLET BY ity of tablet 00:00: MOUTH [place] 00 DAILY. Medical Branch lisinopriL 2020-06 Yes [id number] 2.5mg Take 1 [facility] 2.5 mg 2-17 tablet by ity of tablet 00:00: mouth [place] 00 daily. Medical Branch metoprolol 2020-06 Yes [id number] 25mg Take 1 U nivers succinate 2-17 tablet by ity o f XL 25 mg 24 00:00: mouth 2 [facility] as hr tablet 00 (two) Medical times [place] daily. blood sugar 2020-06 Yes [id number] USE TO [facility] diagnostic 2-17 TEST TWICE ity of (ONETOUCH 00:00: DAILY [place] ULTRA BLUE 00 E11.9 Medical TEST STRIP) Branch strip rosuvastati 2020-06 Yes [id number] 40mg Take 1 [facility] n 40 mg 2-17 tablet by ity of tablet 00:00: mouth [place] 00 daily. Medical Branch terazosin 2 2020-06 Yes [id number] TAKE 1 [facility] mg capsule 2-17 CAPSULE BY ity of 00:00: MOUTH [place] 00 EVERY DAY Medical IN THE Branch EVENING Insulin 2020-06 Yes [id number] 15U inject 15 U nivers Glargine 2-17 Units ity of (LANTUS 00:00: under the [place] [address] skin Medical U-100 daily. Branch INSULIN) 100 unit/mL (3 mL) injection felodipine 2020-06 Yes [id number] TAKE 1 U nivers 10 mg 24 hr 2-17 TABLET BY ity of tablet 00:00: MOUTH [place] 00 DAILY. Medical Branch lisinopriL 2020-06 Yes [id number] 2.5mg Take 1 [facility] 2.5 mg 2-17 tablet by ity of tablet 00:00: mouth [place] 00 daily. Medical Branch metoprolol 2020-06 Yes [id number] 25mg Take 1 U nivers succinate 2-17 tablet by ity o f XL 25 mg 24 00:00: mouth 2 [facility] as hr tablet 00 (two) Medical times [place] daily. blood sugar 2020-06 Yes [id number] USE TO [facility] diagnostic 2-17 TEST TWICE ity of (ONETOUCH 00:00: DAILY [place] ULTRA BLUE 00 E11.9 Medical TEST STRIP) Branch strip rosuvastati 2020-06 Yes [id number] 40mg Take 1 [facility] n 40 mg 2-17 tablet by ity of tablet 00:00: mouth [place] 00 daily. Medical Branch terazosin 2 2020-06 Yes [id number] TAKE 1 [facility] mg capsule 2-17 CAPSULE BY ity of 00:00: MOUTH [place] 00 EVERY DAY Medical IN THE Branch EVENING Insulin 2020-06 Yes [id number] 15U inject 15 U nivers Glargine 2-17 Units ity of (LANTUS 00:00: under the [place] [facility] 00 skin Medical U-100 daily. Branch INSULIN) 100 unit/mL (3 mL) injection felodipine 2020-06 Yes [id number] TAKE 1 U nivers 10 mg 24 hr 2-17 TABLET BY ity of tablet 00:00: MOUTH [place] 00 DAILY. Medical Branch lisinopriL 2020-06 Yes [id number] 2.5mg Take 1 [facility] 2.5 mg 2-17 tablet by ity of tablet 00:00: mouth [place] 00 daily. Medical Branch metoprolol 2020-06 Yes [id number] 25mg Take 1 U nivers succinate 2-17 tablet by ity o f XL 25 mg 24 00:00: mouth 2 [facility] as hr tablet 00 (two) Medical times [place] daily. blood sugar 2020-06 Yes [id number] USE TO [facility] diagnostic 2-17 TEST TWICE ity of (ONETOUCH 00:00: DAILY [place] ULTRA BLUE 00 E11.9 Medical TEST STRIP) Branch strip rosuvastati 2020-06 Yes [id number] 40mg Take 1 [facility] n 40 mg 2-17 tablet by ity of tablet 00:00: mouth [place] 00 daily. Medical Branch terazosin 2 2020-06 Yes [id number] TAKE 1 [facility] mg capsule 2-17 CAPSULE BY ity of 00:00: MOUTH [place] 00 EVERY DAY Medical IN THE Branch EVENING Insulin 2020-06 Yes [id number] 15U inject 15 U nivers Glargine 2-17 Units ity of ([place]ANTUS 00:00: under the [place] [facility] 00 skin Medical U-100 daily. Branch INSULIN) 100 unit/mL (3 mL) injection felodipine 2020-06 Yes [id number] TAKE 1 U nivers 10 mg 24 hr 2-17 TABLET BY ity of tablet 00:00: MOUTH [place] 00 DAILY. Medical Branch lisinopriL 2020-06 Yes [id number] 2.5mg Take 1 [facility] 2.5 mg 2-17 tablet by ity of tablet 00:00: mouth [place] 00 daily. Medical Branch metoprolol 2020-06 Yes [id number] 25mg Take 1 U nivers succinate 2-17 tablet by ity o f XL 25 mg 24 00:00: mouth 2 [facility] as hr tablet 00 (two) Medical times [place] daily. blood sugar 2020-06 Yes [id number] USE TO [facility] diagnostic 2-17 TEST TWICE ity of (ONETOUCH 00:00: DAILY [place] ULTRA BLUE 00 E11.9 Medical TEST STRIP) Branch strip rosuvastati 2020-06 Yes [id number] 40mg Take 1 [facility] n 40 mg 2-17 tablet by ity of tablet 00:00: mouth [place] 00 daily. Medical Branch terazosin 2 2020-06 Yes [id number] TAKE 1 [facility] mg capsule 2-17 CAPSULE BY ity of 00:00: MOUTH [place] 00 EVERY DAY Medical IN THE Branch EVENING Insulin 2020-06 Yes [id number] 15U inject 15 U nivers Glargine 2-17 Units ity of (LANTUS 00:00: under the [place] [facility] 00 skin Medical U-100 daily. Branch INSULIN) 100 unit/mL (3 mL) injection felodipine 2020-06 Yes [id number] TAKE 1 U nivers 10 mg 24 hr 2-17 TABLET BY ity of tablet 00:00: MOUTH [place] 00 DAILY. Medical Branch lisinopriL 2020-06 Yes [id number] 2.5mg Take 1 [facility] 2.5 mg 2-17 tablet by ity of tablet 00:00: mouth [place] 00 daily. Medical Branch metoprolol 2020-06 Yes [id number] 25mg Take 1 U nivers succinate 2-17 tablet by ity o f XL 25 mg 24 00:00: mouth 2 [place] [facility] as hr tablet 00 (two) Medical [facility] daily. blood sugar 2020-06 Yes [id number] USE TO [facility] diagnostic 2-17 TEST TWICE ity of (ONETOUCH 00:00: DAILY [place] ULTRA BLUE 00 E11.9 Medical TEST STRIP) Branch strip rosuvastati 2020-06 Yes [id number] 40mg Take 1 [facility] n 40 mg 2-17 tablet by ity of tablet 00:00: mouth [place] 00 daily. Medical Branch terazosin 2 2020-06 Yes [id number] TAKE 1 [facility] mg capsule 2-17 CAPSULE BY ity of 00:00: MOUTH [place] 00 EVERY DAY Medical IN THE Branch EVENING Insulin 2020-06 Yes [id number] 15U inject 15 U nivers Glargine 2-17 Units ity of ([place] 00:00: under the [facility] 00 skin Medical U-100 daily. Branch INSULIN) 100 unit/mL (3 mL) injection felodipine 2020-06 Yes [id number] TAKE 1 U nivers 10 mg 24 hr 2-17 TABLET BY ity of tablet 00:00: MOUTH [place] 00 DAILY. Medical Branch lisinopriL 2020-06 Yes [id number] 2.5mg Take 1 [facility] 2.5 mg 2-17 tablet by ity of tablet 00:00: mouth [place] 00 daily. Medical Branch metoprolol 2020-06 Yes [id number] 25mg Take 1 U nivers succinate 2-17 tablet by ity o f XL 25 mg 24 00:00: mouth 2 [place] [facility] as hr tablet 00 (two) Medical times [place] daily. blood sugar 2020-06 Yes [id number] USE TO [facility] diagnostic 2-17 TEST TWICE ity of (ONETOUCH 00:00: DAILY [place] ULTRA BLUE 00 E11.9 Medical TEST STRIP) Branch strip rosuvastati 2020-06 Yes [id number] 40mg Take 1 [facility] n 40 mg 2-17 tablet by ity of tablet 00:00: mouth [place] 00 daily. Medical Branch terazosin 2 2020-06 Yes [id number] TAKE 1 [facility] mg capsule 2-17 CAPSULE BY ity of 00:00: MOUTH [place] 00 EVERY DAY Medical IN THE Branch EVENING Insulin 2020-06 Yes [id number] 15U inject 15 U nivers Glargine 2-17 Units ity of ([place] 00:00: under the [facility] 00 skin Medical U-100 daily. Branch INSULIN) 100 unit/mL (3 mL) injection felodipine 2020-06 Yes [id number] TAKE 1 U nivers 10 mg 24 hr 2-17 TABLET BY ity of tablet 00:00: MOUTH [place] 00 DAILY. Medical Branch lisinopriL 2020-06 Yes [id number] 2.5mg Take 1 [facility] 2.5 mg 2-17 tablet by ity of tablet 00:00: mouth [place] 00 daily. Medical Branch metoprolol 2020-06 Yes [id number] 25mg Take 1 U nivers succinate 2-17 tablet by ity o f XL 25 mg 24 00:00: mouth 2 [place] [facility] as hr tablet 00 (two) Medical times [place] daily. blood sugar 2020-06 Yes [id number] USE TO [facility] diagnostic 2-17 TEST TWICE ity of (ONETOUCH 00:00: DAILY [place] ULTRA BLUE 00 E11.9 Medical TEST STRIP) Branch strip rosuvastati 2020-06 Yes [id number] 40mg Take 1 [facility] n 40 mg 2-17 tablet by ity of tablet 00:00: mouth [place] 00 daily. Medical Branch terazosin 2 2020-06 Yes [id number] TAKE 1 [facility] mg capsule 2-17 CAPSULE BY ity of 00:00: MOUTH [place] 00 EVERY DAY Medical IN THE Branch EVENING Insulin 2020-06 Yes [id number] 15U inject 15 U nivers Glargine 2-17 Units ity of ([place]ANT[place] 00:00: under the [place] [facility] 00 skin Medical U-100 daily. Branch INSULIN) 100 unit/mL (3 mL) injection felodipine 2020-06 Yes [id number] TAKE 1 U nivers 10 mg 24 hr 2-17 TABLET BY ity of tablet 00:00: MOUTH [place] 00 DAILY. Medical Branch lisinopriL 2020-06 Yes [id number] 2.5mg Take 1 [facility] 2.5 mg 2-17 tablet by ity of tablet 00:00: mouth [place] 00 daily. Medical Branch metoprolol 2020-06 Yes [id number] 25mg Take 1 U nivers succinate 2-17 tablet by ity o f XL 25 mg 24 00:00: mouth 2 [place] as hr tablet 00 (two) Medical times [place] daily. blood sugar 2020-06 Yes [id number] USE TO [facility] diagnostic 2-17 TEST TWICE ity of (ONETOUCH 00:00: DAILY [place] ULTRA BLUE 00 E11.9 Medical TEST STRIP) Branch strip rosuvastati 2020-06 Yes [id number] 40mg Take 1 [facility] n 40 mg 2-17 tablet by ity of tablet 00:00: mouth [place] 00 daily. Medical Branch terazosin 2 2020-06 Yes [id number] TAKE 1 [facility] mg capsule 2-17 CAPSULE BY ity of 00:00: MOUTH [place] 00 EVERY DAY Medical IN THE Branch EVENING Insulin 2020-06 Yes [id number] 15U inject 15 U nivers Glargine 2-17 Units ity of ([place]ANTUS 00:00: under the [facility] 00 skin Medical U-100 daily. Branch INSULIN) 100 unit/mL (3 mL) injection felodipine 2020-06 Yes [id number] TAKE 1 U nivers 10 mg 24 hr 2-17 TABLET BY ity of tablet 00:00: MOUTH [place] 00 DAILY. Medical Branch lisinopriL 2020-06 Yes [id number] 2.5mg Take 1 [facility] 2.5 mg 2-17 tablet by ity of tablet 00:00: mouth [place] 00 daily. Medical Branch metoprolol 2020-06 Yes [id number] 25mg Take 1 U nivers succinate 2-17 tablet by ity o f XL 25 mg 24 00:00: mouth 2 [facility] as hr tablet 00 (two) Medical times Branch daily. blood sugar 2020-06 Yes [id number] USE TO [facility] diagnostic 2-17 TEST TWICE ity of (ONETOUCH 00:00: DAILY [place] ULTRA BLUE 00 E11.9 Medical TEST STRIP) Branch strip rosuvastati 2020-06 Yes [id number] 40mg Take 1 [facility] n 40 mg 2-17 tablet by ity of tablet 00:00: mouth [place] 00 daily. Medical Branch terazosin 2 2020-06 Yes [id number] TAKE 1 [facility] mg capsule 2-17 CAPSULE BY ity of 00:00: MOUTH [place] 00 EVERY DAY Medical IN THE Branch EVENING Insulin 2020-06 Yes [id number] 15U inject 15 U nivers Glargine 2-17 Units ity of ([place] 00:00: under the [facility] 00 skin Medical U-100 daily. Branch INSULIN) 100 unit/mL (3 mL) injection felodipine 2020-06 Yes [id number] TAKE 1 U nivers 10 mg 24 hr 2-17 TABLET BY ity of tablet 00:00: MOUTH [place] 00 DAILY. Medical Branch lisinopriL 2020-06 Yes [id number] 2.5mg Take 1 [facility] 2.5 mg 2-17 tablet by ity of tablet 00:00: mouth [place] 00 daily. Medical Branch metoprolol 2020-06 Yes [id number] 25mg Take 1 U nivers succinate 2-17 tablet by ity o f XL 25 mg 24 00:00: mouth 2 [facility] as hr tablet 00 (two) Medical times [place] daily. blood sugar 2020-06 Yes [id number] USE TO [facility] diagnostic 2-17 TEST TWICE ity of (ONETOUCH 00:00: DAILY [place] ULTRA BLUE 00 E11.9 Medical TEST STRIP) Branch strip rosuvastati 2020-06 Yes [id number] 40mg Take 1 [facility] n 40 mg 2-17 tablet by ity of tablet 00:00: mouth [place] 00 daily. Medical Branch terazosin 2 2020-06 Yes [id number] TAKE 1 [facility] mg capsule 2-17 CAPSULE BY ity of 00:00: MOUTH [place] 00 EVERY DAY Medical IN THE Branch EVENING Insulin 2020-06 Yes [id number] 15U inject 15 U nivers Glargine 2-17 Units ity of ([place]ANTUS 00:00: under the [place] [facility] 00 skin Medical U-100 daily. Branch INSULIN) 100 unit/mL (3 mL) injection felodipine 2020-06 Yes [id number] TAKE 1 U nivers 10 mg 24 hr 2-17 TABLET BY ity of tablet 00:00: MOUTH [place] 00 DAILY. Medical Branch lisinopriL 2020-06 Yes [id number] 2.5mg Take 1 [facility] 2.5 mg 2-17 tablet by ity of tablet 00:00: mouth [place] 00 daily. Medical Branch metoprolol 2020-06 Yes [id number] 25mg Take 1 U nivers succinate 2-17 tablet by ity o f XL 25 mg 24 00:00: mouth 2 [place] as hr tablet 00 (two) Medical [facility] daily. blood sugar 2020-06 Yes [id number] USE TO [facility] diagnostic 2-17 TEST TWICE ity of (ONETOUCH 00:00: DAILY [place] ULTRA BLUE 00 E11.9 Medical TEST STRIP) Branch strip rosuvastati 2020-06 Yes [id number] 40mg Take 1 [facility] n 40 mg 2-17 tablet by ity of tablet 00:00: mouth [place] 00 daily. Medical Branch terazosin 2 2020-06 Yes [id number] TAKE 1 [facility] mg capsule 2-17 CAPSULE BY ity of 00:00: MOUTH [place] 00 EVERY DAY Medical IN THE Branch EVENING Insulin 2020-06 Yes [id number] 15U inject 15 U nivers Glargine 2-17 Units ity of (LANTUS 00:00: under the [place] [address] skin Medical U-100 daily. Branch INSULIN) 100 unit/mL (3 mL) injection felodipine 2020-06 Yes [id number] TAKE 1 U nivers 10 mg 24 hr 2-17 TABLET BY ity of tablet 00:00: MOUTH [place] 00 DAILY. Medical Branch lisinopriL 2020-06 Yes [id number] 2.5mg Take 1 Univers 2.5 mg 2-17 tablet by ity of tablet 00:00: mouth [place] 00 daily. Medical Branch metoprolol 2020-06 Yes [id number] 25mg Take 1 U nivers succinate 2-17 tablet by ity o f XL 25 mg 24 00:00: mouth 2 [facility] as hr tablet 00 (two) Medical [facility] daily. blood sugar 2020-06 Yes [id number] USE TO [facility] diagnostic 2-17 TEST TWICE ity of (ONETOUCH 00:00: DAILY [place] ULTRA BLUE 00 E11.9 Medical TEST STRIP) Branch strip rosuvastati 2020-06 Yes [id number] 40mg Take 1 [facility] n 40 mg 2-17 tablet by ity of tablet 00:00: mouth [place] 00 daily. Medical Branch terazosin 2 2020-06 Yes [id number] TAKE 1 [facility] mg capsule 2-17 CAPSULE BY ity of 00:00: MOUTH [place] 00 EVERY DAY Medical IN THE Branch EVENING Insulin 2020-06 Yes [id number] 15U inject 15 U nivers Glargine 2-17 Units ity of (LANTUS 00:00: under the [place] [address] skin Medical U-100 daily. Branch INSULIN) 100 unit/mL (3 mL) injection felodipine 2020-06 Yes [id number] TAKE 1 U nivers 10 mg 24 hr 2-17 TABLET BY ity of tablet 00:00: MOUTH [place] 00 DAILY. Medical Branch lisinopriL 2020-06 Yes [id number] 2.5mg Take 1 [facility] 2.5 mg 2-17 tablet by ity of tablet 00:00: mouth [place] 00 daily. Medical Branch metoprolol 2020-06 Yes [id number] 25mg Take 1 U nivers succinate 2-17 tablet by ity o f XL 25 mg 24 00:00: mouth 2 [facility] as hr tablet 00 (two) Medical times [place] daily. blood sugar 2020-06 Yes [id number] USE TO [facility] diagnostic 2-17 TEST TWICE ity of (ONETOUCH 00:00: DAILY [place] ULTRA BLUE 00 E11.9 Medical TEST STRIP) Branch strip rosuvastati 2020-06 Yes [id number] 40mg Take 1 [facility] n 40 mg 2-17 tablet by ity of tablet 00:00: mouth [place] 00 daily. Medical Branch terazosin 2 2020-06 Yes [id number] TAKE 1 [facility] mg capsule 2-17 CAPSULE BY ity of 00:00: MOUTH [place] 00 EVERY DAY Medical IN THE Branch EVENING Insulin 2020-06 Yes [id number] 15U inject 15 U nivers Glargine 2-17 Units ity of (LANTUS 00:00: under the [place] [facility] 00 skin Medical U-100 daily. [place] INSULIN) 100 unit/mL (3 mL) injection felodipine 2020-06 Yes [id number] TAKE 1 U nivers 10 mg 24 hr 2-17 TABLET BY ity of tablet 00:00: MOUTH [place] 00 DAILY. Medical Branch lisinopriL 2020-06 Yes [id number] 2.5mg Take 1 [facility] 2.5 mg 2-17 tablet by ity of tablet 00:00: mouth [place] 00 daily. Medical Branch metoprolol 2020-06 Yes [id number] 25mg Take 1 U nivers succinate 2-17 tablet by ity o f XL 25 mg 24 00:00: mouth 2 [facility] as hr tablet 00 (two) Medical times [place] daily. blood sugar 2020-06 Yes [id number] USE TO [facility] diagnostic 2-17 TEST TWICE ity of (ONETOUCH 00:00: DAILY [place] ULTRA BLUE 00 E11.9 Medical TEST STRIP) Branch strip rosuvastati 2020-06 Yes [id number] 40mg Take 1 [facility] n 40 mg 2-17 tablet by ity of tablet 00:00: mouth [place] 00 daily. Medical Branch terazosin 2 2020-06 Yes [id number] TAKE 1 Univers mg capsule 2-17 CAPSULE BY ity of 00:00: MOUTH [place] 00 EVERY DAY Medical IN THE Branch EVENING glipiZIDE 5 2020-06- No [id number] TAKE 1/2 Univers mg tablet 2-17 09-16 TABLET BY ity of 00:00: 00:00 MOUTH [place] 00 :00 EVERY DAY Medical WITH [place] BREAKFAST nitroglycer Yes [id number] .4mg Place 1 Univers in 0.4 mg 9-21 tablet ity of sublingual 00:00: under the [place] tablet 00 tongue Medical every 5 Branch (five) minutes as needed for Chest pain. nitroglycer 2021-[id number] 1 Univers in 0.4 mg 9-21 tablet ity of sublingual 00:00: under the [place] tablet 00 tongue Medical every 5 Branch (five) minutes as needed for Chest pain. nitroglycer 2021-[id number] 1 Univers in 0.4 mg 9-21 tablet ity of sublingual 00:00: under the [place] tablet 00 tongue Medical every 5 Branch (five) minutes as needed for Chest pain. nitroglycer 2021-[id number] 1 Univers in 0.4 mg 9-21 tablet ity of sublingual 00:00: under the [place] tablet 00 tongue Medical every 5 Branch (five) minutes as needed for Chest pain. nitroglycer 1-[id number] 1 Univers in 0.4 mg 9-21 tablet ity of sublingual 00:00: under the [place] tablet 00 tongue Medical every 5 Branch (five) minutes as needed for Chest pain. nitroglycer 1-[id number] 1 Univers in 0.4 mg 9-21 tablet ity of sublingual 00:00: under the [place] tablet 00 tongue Medical every 5 Branch (five) minutes as needed for Chest pain. nitroglycer 2021-[id number] 1 Univers in 0.4 mg 9-21 tablet ity of sublingual 00:00: under the [place] tablet 00 tongue Medical every 5 Branch (five) minutes as needed for Chest pain. nitroglycer 2021-[id number] 1 Univers in 0.4 mg 9-21 tablet ity of sublingual 00:00: under the [place] tablet 00 tongue Medical every 5 Branch (five) minutes as needed for Chest pain. nitroglycer 2021-[id number] 1 Univers in 0.4 mg 9-21 tablet ity of sublingual 00:00: under the [place] tablet 00 tongue Medical every 5 Branch (five) minutes as needed for Chest pain. nitroglycer 2021-[id number] 1 Univers in 0.4 mg 9-21 tablet ity of sublingual 00:00: under the [place] tablet 00 tongue Medical every 5 Branch (five) minutes as needed for Chest pain. nitroglycer 1-[id number] 1 Univers in 0.4 mg 9-21 tablet ity of sublingual 00:00: under the [place] tablet 00 tongue Medical every 5 Branch (five) minutes as needed for Chest pain. nitroglycer 1-[id number] 1 Univers in 0.4 mg 9-21 tablet ity of sublingual 00:00: under the [place] tablet 00 tongue Medical every 5 Branch (five) minutes as needed for Chest pain. nitroglycer 1-[id number] 1 Univers in 0.4 mg 9-21 tablet ity of sublingual 00:00: under the [place] tablet 00 tongue Medical every 5 Branch (five) minutes as needed for Chest pain. nitroglycer 2020-[id number] 1 Univers in 0.4 mg 9-21 tablet ity of sublingual 00:00: under the [place] tablet 00 tongue Medical every 5 Branch (five) minutes as needed for Chest pain. nitroglycer 1-[id number] 1 Univers in 0.4 mg 9-21 tablet ity of sublingual 00:00: under the [place] tablet 00 tongue Medical every 5 Branch (five) minutes as needed for Chest pain. nitroglycer 1-[id number] 1 Univers in 0.4 mg 9-21 tablet ity of sublingual 00:00: under the [place] tablet 00 tongue Medical every 5 Branch (five) minutes as needed for Chest pain. nitroglycer 1-[id number] 1 Univers in 0.4 mg 9-21 tablet ity of sublingual 00:00: under the [place] tablet 00 tongue Medical every 5 Branch (five) minutes as needed for Chest pain. nitroglycer 2021-[id number] 1 Univers in 0.4 mg 9-21 tablet ity of sublingual 00:00: under the [place] tablet 00 tongue Medical every 5 Branch (five) minutes as needed for Chest pain. nitroglycer 2021-[id number] 1 Univers in 0.4 mg 9-21 tablet ity of sublingual 00:00: under the [place] tablet 00 tongue Medical every 5 Branch (five) minutes as needed for Chest pain. nitroglycer 2021-[id number] 1 Univers in 0.4 mg 9-21 tablet ity of sublingual 00:00: under the [place] tablet 00 tongue Medical every 5 Branch (five) minutes as needed for Chest pain. nitroglycer 2021-[id number] 1 Univers in 0.4 mg 9-21 tablet ity of sublingual 00:00: under the [place] tablet 00 tongue Medical every 5 Branch (five) minutes as needed for Chest pain. nitroglycer 2021-[id number] 1 Univers in 0.4 mg 9-21 tablet ity of sublingual 00:00: under the [place] tablet 00 tongue Medical every 5 Branch (five) minutes as needed for Chest pain. nitroglycer 1-[id number] 1 Univers in 0.4 mg 9-21 tablet ity of sublingual 00:00: under the [place] tablet 00 tongue Medical every 5 Branch (five) minutes as needed for Chest pain. nitroglycer 1-[id number] 1 Univers in 0.4 mg 9-21 tablet ity of sublingual 00:00: under the [place] tablet 00 tongue Medical every 5 Branch (five) minutes as needed for Chest pain. nitroglycer 2021-[id number] 1 Univers in 0.4 mg 9-21 tablet ity of sublingual 00:00: under the [place] tablet 00 tongue Medical every 5 Branch (five) minutes as needed for Chest pain. nitroglycer 2021-[id number] 1 Univers in 0.4 mg 9-21 tablet ity of sublingual 00:00: under the [place] tablet 00 tongue Medical every 5 Branch (five) minutes as needed for Chest pain. nitroglycer 2021-[id number] 1 Univers in 0.4 mg 9-21 tablet ity of sublingual 00:00: under the [place] tablet 00 tongue Medical every 5 Branch (five) minutes as needed for Chest pain. nitroglycer 2021-[id number] 1 Univers in 0.4 mg 9-21 tablet ity of sublingual 00:00: under the [place] tablet 00 tongue Medical every 5 Branch (five) minutes as needed for Chest pain. nitroglycer 1-[id number] 1 Univers in 0.4 mg 9-21 tablet ity of sublingual 00:00: under the [place] tablet 00 tongue Medical every 5 Branch (five) minutes as needed for Chest pain. nitroglycer 1-[id number] 1 Univers in 0.4 mg 9-21 tablet ity of sublingual 00:00: under the [place] tablet 00 tongue Medical every 5 Branch (five) minutes as needed for Chest pain. nitroglycer 1-[id number] 1 Univers in 0.4 mg 9-21 tablet ity of sublingual 00:00: under the [place] tablet 00 tongue Medical every 5 Branch (five) minutes as needed for Chest pain. nitroglycer 2020-[id number] 1 Univers in 0.4 mg 9-21 tablet ity of sublingual 00:00: under the [place] tablet 00 tongue Medical every 5 Branch (five) minutes as needed for Chest pain. nitroglycer 1-[id number] 1 Univers in 0.4 mg 9-21 tablet ity of sublingual 00:00: under the [place] tablet 00 tongue Medical every 5 Branch (five) minutes as needed for Chest pain. nitroglycer 1-[id number] 1 Univers in 0.4 mg 9-21 tablet ity of sublingual 00:00: under the [place] tablet 00 tongue Medical every 5 Branch (five) minutes as needed for Chest pain. nitroglycer 2021-[id number] 1 Univers in 0.4 mg 9-21 tablet ity of sublingual 00:00: under the [place] tablet 00 tongue Medical every 5 Branch (five) minutes as needed for Chest pain. nitroglycer 2021-[id number] 1 Univers in 0.4 mg 9-21 tablet ity of sublingual 00:00: under the [place] tablet 00 tongue Medical every 5 Branch (five) minutes as needed for Chest pain. nitroglycer 2021-[id number] 1 Univers in 0.4 mg 9-21 tablet ity of sublingual 00:00: under the [place] tablet 00 tongue Medical every 5 Branch (five) minutes as needed for Chest pain. nitroglycer 2021-[id number] 1 Univers in 0.4 mg 9-21 tablet ity of sublingual 00:00: under the [place] tablet 00 tongue Medical every 5 Branch (five) minutes as needed for Chest pain. nitroglycer 2021-[id number] 1 Univers in 0.4 mg 9-21 tablet ity of sublingual 00:00: under the [place] tablet 00 tongue Medical every 5 Branch (five) minutes as needed for Chest pain. nitroglycer 2021-[id number] 1 Univers in 0.4 mg 9-21 tablet ity of sublingual 00:00: under the [place] tablet 00 tongue Medical every 5 Branch (five) minutes as needed for Chest pain. nitroglycer 1-[id number] 1 Univers in 0.4 mg 9-21 tablet ity of sublingual 00:00: under the [place] tablet 00 tongue Medical every 5 Branch (five) minutes as needed for Chest pain. nitroglycer 2021-[id number] 1 Univers in 0.4 mg 9-21 tablet ity of sublingual 00:00: under the [place] tablet 00 tongue Medical every 5 Branch (five) minutes as needed for Chest pain. nitroglycer 2021-[id number] 1 Univers in 0.4 mg 9-21 tablet ity of sublingual 00:00: under the [place] tablet 00 tongue Medical every 5 Branch (five) minutes as needed for Chest pain. nitroglycer 2021-[id number] 1 Univers in 0.4 mg 9-21 tablet ity of sublingual 00:00: under the [place] tablet 00 tongue Medical every 5 Branch (five) minutes as needed for Chest pain. nitroglycer 2021-[id number] 1 Univers in 0.4 mg 9-21 tablet ity of sublingual 00:00: under the [place] tablet 00 tongue Medical every 5 Branch (five) minutes as needed for Chest pain. nitroglycer 2021-[id number] 1 Univers in 0.4 mg 9-21 tablet ity of sublingual 00:00: under the [place] tablet 00 tongue Medical every 5 Branch (five) minutes as needed for Chest pain. nitroglycer 2021-[id number] 1 Univers in 0.4 mg 9-21 tablet ity of sublingual 00:00: under the [place] tablet 00 tongue Medical every 5 Branch (five) minutes as needed for Chest pain. nitroglycer 2021-[id number] 1 Univers in 0.4 mg 9-21 tablet ity of sublingual 00:00: under the [place] tablet 00 tongue Medical every 5 Branch (five) minutes as needed for Chest pain. nitroglycer 2021-[id number] 1 Univers in 0.4 mg 9-21 tablet ity of sublingual 00:00: under the [place] tablet 00 tongue Medical every 5 Branch (five) minutes as needed for Chest pain. nitroglycer 2021-[id number] 1 Univers in 0.4 mg 9-21 tablet ity of sublingual 00:00: under the [place] tablet 00 tongue Medical every 5 Branch (five) minutes as needed for Chest pain. nitroglycer 2021-[id number] 1 Univers in 0.4 mg 9-21 tablet ity of sublingual 00:00: under the [place] tablet 00 tongue Medical every 5 Branch (five) minutes as needed for Chest pain. nitroglycer 2021-[id number] 1 Univers in 0.4 mg 9-21 tablet ity of sublingual 00:00: under the [place] tablet 00 tongue Medical every 5 Branch (five) minutes as needed for Chest pain. nitroglycer 2021-[id number] 1 Univers in 0.4 mg 9-21 tablet ity of sublingual 00:00: under the [place] tablet 00 tongue Medical every 5 Branch (five) minutes as needed for Chest pain. nitroglycer 2021-[id number] 1 Univers in 0.4 mg 9-21 tablet ity of sublingual 00:00: under the [place] tablet 00 tongue Medical every 5 Branch (five) minutes as needed for Chest pain. nitroglycer 2020-[id number] 1 Univers in 0.4 mg 9-21 tablet ity of sublingual 00:00: under the [place] tablet 00 tongue Medical every 5 Branch (five) minutes as needed for Chest pain. calcium 2020-0 Yes [id number] 667mg Take 1 [facility] vers acetate,kana 6-25 capsule by it y of sphat bind, 00:00: mouth 3 Luis Alberto as 667 mg 00 (three) Medical capsule times Branch daily with meals. calcium 2020-0 Yes [id number] 667mg Take 1 Uni vers acetate,kana 6-25 capsule by it y of sphat bind, 00:00: mouth 3 Luis Alberto as 667 mg 00 (three) Medical capsule times Branch daily with meals. calcium 2020-0 Yes [id number] 667mg Take 1 Uni vers acetate,kana 6-25 capsule by it y of sphat bind, 00:00: mouth 3 Luis Alberto as 667 mg 00 (three) Medical capsule times Branch daily with meals. calcium 2020-0 Yes [id number] 667mg Take 1 Uni vers acetate,kana 6-25 capsule by it y of sphat bind, 00:00: mouth 3 Luis Alberto as 667 mg 00 (three) Medical capsule times Branch daily with meals. calcium 2020-0 Yes [id number] 667mg Take 1 Uni vers acetate,kana 6-25 capsule by it y of sphat bind, 00:00: mouth 3 Luis Alberto as 667 mg 00 (three) Medical capsule times Branch daily with meals. calcium 2020-0 Yes [id number] 667mg Take 1 Uni vers acetate,kana 6-25 capsule by it y of sphat bind, 00:00: mouth 3 Luis Alberto as 667 mg 00 (three) Medical capsule times Branch daily with meals. calcium 2020-0 Yes [id number] 667mg Take 1 Uni vers acetate,kana 6-25 capsule by it y of sphat bind, 00:00: mouth 3 Luis Alberto as 667 mg 00 (three) Medical capsule times Branch daily with meals. calcium 2020-0 Yes [id number] 667mg Take 1 Uni vers acetate,kana 6-25 capsule by it y of sphat bind, 00:00: mouth 3 Luis Alberto as 667 mg 00 (three) Medical capsule times Branch daily with meals. calcium 2020-0 Yes [id number] 667mg Take 1 Uni vers acetate,kana 6-25 capsule by it y of sphat bind, 00:00: mouth 3 Luis Alberto as 667 mg 00 (three) Medical capsule times Branch daily with meals. calcium 2020-0 Yes [id number] 667mg Take 1 [facility] vers acetate,kana 6-25 capsule by it y of sphat bind, 00:00: mouth 3 Luis Alberto as 667 mg 00 (three) Medical capsule times Branch daily with meals. calcium 2020-0 Yes [id number] 667mg Take 1 Uni vers acetate,kana 6-25 capsule by it y of sphat bind, 00:00: mouth 3 Luis Alberto as 667 mg 00 (three) Medical capsule times Branch daily with meals. calcium 2020-0 Yes [id number] 667mg Take 1 Uni vers acetate,akna 6-25 capsule by it y of sphat bind, 00:00: mouth 3 Luis Alberto as 667 mg 00 (three) Medical capsule times Branch daily with meals. calcium 2020-0 Yes [id number] 667mg Take 1 [facility] vers acetate,kana 6-25 capsule by it y of sphat bind, 00:00: mouth 3 Luis Alberto as 667 mg 00 (three) Medical capsule times Branch daily with meals. calcium 2020-0 Yes [id number] 667mg Take 1 [facility] vers acetate,kana 6-25 capsule by it y of sphat bind, 00:00: mouth 3 Luis Alberto as 667 mg 00 (three) Medical capsule times Branch daily with meals. calcium 2020-0 Yes [id number] 667mg Take 1 [facility] vers acetate,kana 6-25 capsule by it y of sphat bind, 00:00: mouth 3 Luis Alberto as 667 mg 00 (three) Medical capsule times Branch daily with meals. calcium 2020-0 Yes [id number] 667mg Take 1 [facility] vers acetate,kana 6-25 capsule by it y of sphat bind, 00:00: mouth 3 Luis Alberto as 667 mg 00 (three) Medical capsule times Branch daily with meals. calcium 2020-0 Yes [id number] 667mg Take 1 [facility] vers acetate,kana 6-25 capsule by it y of sphat bind, 00:00: mouth 3 Luis Alberto as 667 mg 00 (three) Medical capsule times Branch daily with meals. calcium 2020-0 Yes [id number] 667mg Take 1 [facility] vers acetate,kana 6-25 capsule by it y of sphat bind, 00:00: mouth 3 Luis Alberto as 667 mg 00 (three) Medical capsule times Branch daily with meals. calcium 2020-0 Yes [id number] 667mg Take 1 [facility] vers acetate,kana 6-25 capsule by it y of sphat bind, 00:00: mouth 3 Luis Alberto as 667 mg 00 (three) Medical capsule times Branch daily with meals. calcium 2020-0 Yes [id number] 667mg Take 1 [facility] vers acetate,kana 6-25 capsule by it y of sphat bind, 00:00: mouth 3 Luis Alberto as 667 mg 00 (three) Medical capsule times Branch daily with meals. calcium 2020-0 Yes [id number] 667mg Take 1 Uni vers acetate,kana 6-25 capsule by it y of sphat bind, 00:00: mouth 3 Luis Alberto as 667 mg 00 (three) Medical capsule times Branch daily with meals. calcium 2020-0 Yes [id number] 667mg Take 1 Uni vers acetate,kana 6-25 capsule by it y of sphat bind, 00:00: mouth 3 Luis Alberto as 667 mg 00 (three) Medical capsule times Branch daily with meals. calcium 2020-0 Yes [id number] 667mg Take 1 [facility] vers acetate,kana 6-25 capsule by it y of sphat bind, 00:00: mouth 3 Luis Alberto as 667 mg 00 (three) Medical capsule times Branch daily with meals. calcium 2020-0 Yes [id number] 667mg Take 1 Uni vers acetate,kana 6-25 capsule by it y of sphat bind, 00:00: mouth 3 Luis Alberto as 667 mg 00 (three) Medical capsule times Branch daily with meals. calcium 2020-0 Yes [id number] 667mg Take 1 [facility] vers acetate,kana 6-25 capsule by it y of sphat bind, 00:00: mouth 3 Luis Alberto as 667 mg 00 (three) Medical capsule times Branch daily with meals. calcium 2020-0 Yes [id number] 667mg Take 1 Uni vers acetate,kana 6-25 capsule by it y of sphat bind, 00:00: mouth 3 Luis Alberto as 667 mg 00 (three) Medical capsule times Branch daily with meals. calcium 2020-0 Yes [id number] 667mg Take 1 Uni vers acetate,kana 6-25 capsule by it y of sphat bind, 00:00: mouth 3 Luis Alberto as 667 mg 00 (three) Medical capsule times Branch daily with meals. calcium 2020-0 Yes [id number] 667mg Take 1 Uni vers acetate,kana 6-25 capsule by it y of sphat bind, 00:00: mouth 3 Luis Alberto as 667 mg 00 (three) Medical capsule times Branch daily with meals. calcium 2020-0 Yes [id number] 667mg Take 1 Uni vers acetate,kana 6-25 capsule by it y of sphat bind, 00:00: mouth 3 Luis Alberto as 667 mg 00 (three) Medical capsule times Branch daily with meals. calcium 2020-0 Yes [id number] 667mg Take 1 Uni vers acetate,kana 6-25 capsule by it y of sphat bind, 00:00: mouth 3 Luis Alberto as 667 mg 00 (three) Medical capsule times Branch daily with meals. calcium 2020-0 Yes [id number] 667mg Take 1 Uni vers acetate,kana 6-25 capsule by it y of sphat bind, 00:00: mouth 3 Luis Alberto as 667 mg 00 (three) Medical capsule times Branch daily with meals. calcium 2020-0 Yes [id number] 667mg Take 1 Uni vers acetate,kana 6-25 capsule by it y of sphat bind, 00:00: mouth 3 Luis Alberto as 667 mg 00 (three) Medical capsule times Branch daily with meals. calcium 2020-0 Yes [id number] 667mg Take 1 Uni vers acetate,kana 6-25 capsule by it y of sphat bind, 00:00: mouth 3 Luis Alberto as 667 mg 00 (three) Medical capsule times Branch daily with meals. calcium 2020-0 Yes [id number] 667mg Take 1 Uni vers acetate,kana 6-25 capsule by it y of sphat bind, 00:00: mouth 3 Luis Alberto as 667 mg 00 (three) Medical capsule times Branch daily with meals. calcium 2020-0 Yes [id number] 667mg Take 1 Uni vers acetate,kana 6-25 capsule by it y of sphat bind, 00:00: mouth 3 Luis Alberto as 667 mg 00 (three) Medical capsule times Branch daily with meals. calcium 202-0 Yes [id number] 667mg Take 1 Uni vers acetate,kana 6-25 capsule by it y of sphat bind, 00:00: mouth 3 Luis Alberto as 667 mg 00 (three) Medical capsule times Branch daily with meals. calcium 2020-0 Yes [id number] 667mg Take 1 Uni vers acetate,kana 6-25 capsule by it y of sphat bind, 00:00: mouth 3 Luis Alberto as 667 mg 00 (three) Medical capsule times Branch daily with meals. calcium 2020-0 Yes [id number] 667mg Take 1 Uni vers acetate,kana 6-25 capsule by it y of sphat bind, 00:00: mouth 3 Luis Alberto as 667 mg 00 (three) Medical capsule times Branch daily with meals. calcium 2020-0 Yes [id number] 667mg Take 1 Uni vers acetate,kana 6-25 capsule by it y of sphat bind, 00:00: mouth 3 Luis Alberto as 667 mg 00 (three) Medical capsule times Branch daily with meals. calcium 2020-0 Yes [id number] 667mg Take 1 Uni vers acetate,kana 6-25 capsule by it y of sphat bind, 00:00: mouth 3 Luis Alberto as 667 mg 00 (three) Medical capsule times Branch daily with meals. calcium 2020-0 Yes [id number] 667mg Take 1 Uni vers acetate,kana 6-25 capsule by it y of sphat bind, 00:00: mouth 3 Luis Alberto as 667 mg 00 (three) Medical capsule times Branch daily with meals. calcium 2020-0 Yes [id number] 667mg Take 1 Uni vers acetate,kana 6-25 capsule by it y of sphat bind, 00:00: mouth 3 Luis Alberto as 667 mg 00 (three) Medical capsule times Branch daily with meals. calcium 2020-0 Yes [id number] 667mg Take 1 Uni vers acetate,kana 6-25 capsule by it y of sphat bind, 00:00: mouth 3 Luis Alberto as 667 mg 00 (three) Medical capsule times Branch daily with meals. calcium 2020-0 Yes [id number] 667mg Take 1 Uni vers acetate,kana 6-25 capsule by it y of sphat bind, 00:00: mouth 3 Luis Alberto as 667 mg 00 (three) Medical capsule times Branch daily with meals. calcium 2020-0 Yes [id number] 667mg Take 1 Uni vers acetate,kana 6-25 capsule by it y of sphat bind, 00:00: mouth 3 Luis Alberto as 667 mg 00 (three) Medical capsule times Branch daily with meals. calcium 2020-0 Yes [id number] 667mg Take 1 Uni vers acetate,kana 6-25 capsule by it y of sphat bind, 00:00: mouth 3 Luis Alberto as 667 mg 00 (three) Medical capsule times Branch daily with meals. calcium 2020-0 Yes [id number] 667mg Take 1 Uni vers acetate,kana 6-25 capsule by it y of sphat bind, 00:00: mouth 3 Luis Alberto as 667 mg 00 (three) Medical capsule times Branch daily with meals. calcium 2020-0 Yes [id number] 667mg Take 1 Uni vers acetate,kana 6-25 capsule by it y of sphat bind, 00:00: mouth 3 Luis Alberto as 667 mg 00 (three) Medical capsule times Branch daily with meals. calcium 2020-0 Yes [id number] 667mg Take 1 Uni vers acetate,kana 6-25 capsule by it y of sphat bind, 00:00: mouth 3 Luis Alberto as 667 mg 00 (three) Medical capsule times Branch daily with meals. calcium 2020-0 Yes [id number] 667mg Take 1 Uni vers acetate,kana 6-25 capsule by it y of sphat bind, 00:00: mouth 3 Luis Alberto as 667 mg 00 (three) Medical capsule times Branch daily with meals. calcium 2020-0 Yes [id number] 667mg Take 1 Uni vers acetate,kana 6-25 capsule by it y of sphat bind, 00:00: mouth 3 Luis Alberto as 667 mg 00 (three) Medical capsule times Branch daily with meals. calcium 2020-0 Yes [id number] 667mg Take 1 Uni vers acetate,kana 6-25 capsule by it y of sphat bind, 00:00: mouth 3 Luis Alberto as 667 mg 00 (three) Medical capsule times Branch daily with meals. calcium 2020-0 Yes [id number] 667mg Take 1 Uni vers acetate,kana 6-25 capsule by it y of sphat bind, 00:00: mouth 3 Luis Alberto as 667 mg 00 (three) Medical capsule times Branch daily with meals. calcium 2020-0 Yes [id number] 667mg Take 1 Uni vers acetate,kana 6-25 capsule by it y of sphat bind, 00:00: mouth 3 Luis Alberto as 667 mg 00 (three) Medical capsule times Branch daily with meals. calcium 2020-0 Yes [id number] 667mg Take 1 Uni vers acetate,kana 6-25 capsule by it y of sphat bind, 00:00: mouth 3 Luis Alberto as 667 mg 00 (three) Medical capsule times Branch daily with meals. ciclopirox 2021-0 Yes [id number] Apply to [facility] ([facility]) 8 6-15 area(s) at ity of % solution 00:00: bedtime. Luis Alberto as 00 Apply to Medical fungal Branch toenails once daily; Every 7 days file toenails with nail filer and apply rubbing alcohol. ciclopirox 2021-0 Yes [id number] Apply to [facility] ([facility]) 8 6-15 area(s) at ity of % solution 00:00: bedtime. Luis Alberto as 00 Apply to Medical fungal Branch toenails once daily; Every 7 days file toenails with nail filer and apply rubbing alcohol. ciclopirox 2021-0 Yes [id number] Apply to [facility] ([facility]) 8 6-15 area(s) at ity of % solution 00:00: bedtime. Luis Alberto as 00 Apply to Medical fungal Branch toenails once daily; Every 7 days file toenails with nail filer and apply rubbing alcohol. ciclopirox 2021-0 Yes [id number] Apply to [facility] ([facility]) 8 6-15 area(s) at ity of % solution 00:00: bedtime. Luis Alberto as 00 Apply to Medical fungal Branch toenails once daily; Every 7 days file toenails with nail filer and apply rubbing alcohol. ciclopirox 2021-0 Yes [id number] Apply to [facility] ([facility]) 8 6-15 area(s) at ity of % solution 00:00: bedtime. Luis Alberto as 00 Apply to Medical fungal Branch toenails once daily; Every 7 days file toenails with nail filer and apply rubbing alcohol. ciclopirox 2021-0 Yes [id number] Apply to [facility] ([facility]) 8 6-15 area(s) at ity of % solution 00:00: bedtime. Luis Alberto as 00 Apply to Medical fungal Branch toenails once daily; Every 7 days file toenails with nail filer and apply rubbing alcohol. ciclopirox 2021-0 Yes [id number] Apply to [facility] ([facility]) 8 6-15 area(s) at ity of % solution 00:00: bedtime. Luis Alberto as 00 Apply to Medical fungal Branch toenails once daily; Every 7 days file toenails with nail filer and apply rubbing alcohol. ciclopirox 2021-0 Yes [id number] Apply to [facility] ([facility]) 8 6-15 area(s) at ity of % solution 00:00: bedtime. Luis Alberto as 00 Apply to Medical fungal Branch toenails once daily; Every 7 days file toenails with nail filer and apply rubbing alcohol. ciclopirox 2021-0 Yes [id number] Apply to [facility] ([facility]) 8 6-15 area(s) at ity of % solution 00:00: bedtime. Luis Alberto as 00 Apply to Medical fungal Branch toenails once daily; Every 7 days file toenails with nail filer and apply rubbing alcohol. ciclopirox 2021-0 Yes [id number] Apply to [facility] ([facility]) 8 6-15 area(s) at ity of % solution 00:00: bedtime. Luis Alberto as 00 Apply to Medical fungal Branch toenails once daily; Every 7 days file toenails with nail filer and apply rubbing alcohol. ciclopirox 2021-0 Yes [id number] Apply to [facility] ([facility]) 8 6-15 area(s) at ity of % solution 00:00: bedtime. Luis Alberto as 00 Apply to Medical fungal Branch toenails once daily; Every 7 days file toenails with nail filer and apply rubbing alcohol. ciclopirox 2021-0 Yes [id number] Apply to [facility] ([facility]) 8 6-15 area(s) at ity of % solution 00:00: bedtime. Luis Alberto as 00 Apply to Medical fungal Branch toenails once daily; Every 7 days file toenails with nail filer and apply rubbing alcohol. ciclopirox 2021-0 Yes [id number] Apply to [facility] ([facility]) 8 6-15 area(s) at ity of % solution 00:00: bedtime. Luis Alberto as 00 Apply to Medical fungal Branch toenails once daily; Every 7 days file toenails with nail filer and apply rubbing alcohol. ciclopirox 2021-0 Yes [id number] Apply to [facility] ([facility]) 8 6-15 area(s) at ity of % solution 00:00: bedtime. Luis Alberto as 00 Apply to Medical fungal Branch toenails once daily; Every 7 days file toenails with nail filer and apply rubbing alcohol. ciclopirox 2021-0 Yes [id number] Apply to [facility] ([facility]) 8 6-15 area(s) at ity of % solution 00:00: bedtime. Luis Alberto as 00 Apply to Medical fungal Branch toenails once daily; Every 7 days file toenails with nail filer and apply rubbing alcohol. ciclopirox 2021-0 Yes [id number] Apply to [facility] ([facility]) 8 6-15 area(s) at ity of % solution 00:00: bedtime. Luis Alberto as 00 Apply to Medical fungal Branch toenails once daily; Every 7 days file toenails with nail filer and apply rubbing alcohol. ciclopirox 2021-0 Yes [id number] Apply to [facility] ([facility]) 8 6-15 area(s) at ity of % solution 00:00: bedtime. Luis Alberto as 00 Apply to Medical fungal Branch toenails once daily; Every 7 days file toenails with nail filer and apply rubbing alcohol. ciclopirox 2021-0 Yes [id number] Apply to [facility] ([facility]) 8 6-15 area(s) at ity of % solution 00:00: bedtime. Luis Alberto as 00 Apply to Medical fungal Branch toenails once daily; Every 7 days file toenails with nail filer and apply rubbing alcohol. ciclopirox 2021-0 Yes [id number] Apply to [facility] ([facility]) 8 6-15 area(s) at ity of % solution 00:00: bedtime. Luis Alberto as 00 Apply to Medical fungal Branch toenails once daily; Every 7 days file toenails with nail filer and apply rubbing alcohol. ciclopirox 2021-0 Yes [id number] Apply to [facility] ([facility]) 8 6-15 area(s) at ity of % solution 00:00: bedtime. Luis Alberto as 00 Apply to Medical fungal Branch toenails once daily; Every 7 days file toenails with nail filer and apply rubbing alcohol. ciclopirox 2021-0 Yes [id number] Apply to [facility] ([facility]) 8 6-15 area(s) at ity of % solution 00:00: bedtime. Luis Alberto as 00 Apply to Medical fungal Branch toenails once daily; Every 7 days file toenails with nail filer and apply rubbing alcohol. ciclopirox 2021-0 Yes [id number] Apply to [facility] ([facility]) 8 6-15 area(s) at ity of % solution 00:00: bedtime. Luis Alberto as 00 Apply to Medical fungal Branch toenails once daily; Every 7 days file toenails with nail filer and apply rubbing alcohol. ciclopirox 2021-0 Yes [id number] Apply to [facility] ([facility]) 8 6-15 area(s) at ity of % solution 00:00: bedtime. Luis Alberto as 00 Apply to Medical fungal Branch toenails once daily; Every 7 days file toenails with nail filer and apply rubbing alcohol. ciclopirox 2021-0 Yes [id number] Apply to [facility] ([facility]) 8 6-15 area(s) at ity of % solution 00:00: bedtime. Luis Alberto as 00 Apply to Medical fungal Branch toenails once daily; Every 7 days file toenails with nail filer and apply rubbing alcohol. ciclopirox 2021-0 Yes [id number] Apply to [facility] ([facility]) 8 6-15 area(s) at ity of % solution 00:00: bedtime. Luis Alberto as 00 Apply to Medical fungal Branch toenails once daily; Every 7 days file toenails with nail filer and apply rubbing alcohol. ciclopirox 2021-0 Yes [id number] Apply to [facility] ([facility]) 8 6-15 area(s) at ity of % solution 00:00: bedtime. Luis Alberto as 00 Apply to Medical fungal Branch toenails once daily; Every 7 days file toenails with nail filer and apply rubbing alcohol. ciclopirox 2021-0 Yes [id number] Apply to [facility] ([facility]) 8 6-15 area(s) at ity of % solution 00:00: bedtime. Luis Alberot as 00 Apply to Medical fungal Branch toenails once daily; Every 7 days file toenails with nail filer and apply rubbing alcohol. ciclopirox 2021-0 Yes [id number] Apply to [facility] ([facility]) 8 6-15 area(s) at ity of % solution 00:00: bedtime. Luis Alberto as 00 Apply to Medical fungal Branch toenails once daily; Every 7 days file toenails with nail filer and apply rubbing alcohol. ciclopirox 2021-0 Yes [id number] Apply to [facility] ([facility]) 8 6-15 area(s) at ity of % solution 00:00: bedtime. Luis Alberto as 00 Apply to Medical fungal Branch toenails once daily; Every 7 days file toenails with nail filer and apply rubbing alcohol. ciclopirox 2021-0 Yes [id number] Apply to [facility] ([facility]) 8 6-15 area(s) at ity of % solution 00:00: bedtime. Luis Alberto as 00 Apply to Medical fungal Branch toenails once daily; Every 7 days file toenails with nail filer and apply rubbing alcohol. ciclopirox 2021-0 Yes [id number] Apply to [facility] ([facility]) 8 6-15 area(s) at ity of % solution 00:00: bedtime. Luis Alberto as 00 Apply to Medical fungal Branch toenails once daily; Every 7 days file toenails with nail filer and apply rubbing alcohol. ciclopirox 2021-0 Yes [id number] Apply to [facility] ([facility]) 8 6-15 area(s) at ity of % solution 00:00: bedtime. Luis Alberto as 00 Apply to Medical fungal Branch toenails once daily; Every 7 days file toenails with nail filer and apply rubbing alcohol. ciclopirox 2021-0 Yes [id number] Apply to [facility] ([facility]) 8 6-15 area(s) at ity of % solution 00:00: bedtime. Luis Alberto as 00 Apply to Medical fungal Branch toenails once daily; Every 7 days file toenails with nail filer and apply rubbing alcohol. ciclopirox 2021-0 Yes [id number] Apply to [facility] ([facility]) 8 6-15 area(s) at ity of % solution 00:00: bedtime. Luis Alberto as 00 Apply to Medical fungal Branch toenails once daily; Every 7 days file toenails with nail filer and apply rubbing alcohol. ciclopirox 2021-0 Yes [id number] Apply to [facility] ([facility]) 8 6-15 area(s) at ity of % solution 00:00: bedtime. Luis Alberto as 00 Apply to Medical fungal Branch toenails once daily; Every 7 days file toenails with nail filer and apply rubbing alcohol. ciclopirox 2021-0 Yes [id number] Apply to [facility] ([facility]) 8 6-15 area(s) at ity of % solution 00:00: bedtime. Luis Alberto as 00 Apply to Medical fungal Branch toenails once daily; Every 7 days file toenails with nail filer and apply rubbing alcohol. ciclopirox 2021-0 Yes [id number] Apply to [facility] ([facility]) 8 6-15 area(s) at ity of % solution 00:00: bedtime. Luis Alberto as 00 Apply to Medical fungal Branch toenails once daily; Every 7 days file toenails with nail filer and apply rubbing alcohol. ciclopirox 2021-0 Yes [id number] Apply to [facility] ([facility]) 8 6-15 area(s) at ity of % solution 00:00: bedtime. Luis Alberto as 00 Apply to Medical fungal Branch toenails once daily; Every 7 days file toenails with nail filer and apply rubbing alcohol. ciclopirox 2021-0 Yes [id number] Apply to [facility] ([facility]) 8 6-15 area(s) at ity of % solution 00:00: bedtime. Luis Alberto as 00 Apply to Medical fungal Branch toenails once daily; Every 7 days file toenails with nail filer and apply rubbing alcohol. ciclopirox 2021-0 Yes [id number] Apply to [facility] ([facility]) 8 6-15 area(s) at ity of % solution 00:00: bedtime. Luisa Lberto as 00 Apply to Medical fungal Branch toenails once daily; Every 7 days file toenails with nail filer and apply rubbing alcohol. ciclopirox 2021-0 Yes [id number] Apply to [facility] ([facility]) 8 6-15 area(s) at ity of % solution 00:00: bedtime. Luis Alberto as 00 Apply to Medical fungal Branch toenails once daily; Every 7 days file toenails with nail filer and apply rubbing alcohol. ciclopirox 2021-0 Yes [id number] Apply to [facility] ([facility]) 8 6-15 area(s) at ity of % solution 00:00: bedtime. Luis Alberto as 00 Apply to Medical fungal Branch toenails once daily; Every 7 days file toenails with nail filer and apply rubbing alcohol. ciclopirox 2021-0 Yes [id number] Apply to [facility] ([facility]) 8 6-15 area(s) at ity of % solution 00:00: bedtime. Luis Alberto as 00 Apply to Medical fungal Branch toenails once daily; Every 7 days file toenails with nail filer and apply rubbing alcohol. ciclopirox 2021-0 Yes [id number] Apply to [facility] ([facility]) 8 6-15 area(s) at ity of % solution 00:00: bedtime. Luis Alberto as 00 Apply to Medical fungal Branch toenails once daily; Every 7 days file toenails with nail filer and apply rubbing alcohol. ciclopirox 2021-0 Yes [id number] Apply to [facility] ([facility]) 8 6-15 area(s) at ity of % solution 00:00: bedtime. Luis Alberto as 00 Apply to Medical fungal Branch toenails once daily; Every 7 days file toenails with nail filer and apply rubbing alcohol. ciclopirox 2021-0 Yes [id number] Apply to [facility] ([facility]) 8 6-15 area(s) at ity of % solution 00:00: bedtime. Luis Alberto as 00 Apply to Medical fungal Branch toenails once daily; Every 7 days file toenails with nail filer and apply rubbing alcohol. ciclopirox 2021-0 Yes [id number] Apply to [facility] ([facility]) 8 6-15 area(s) at ity of % solution 00:00: bedtime. Luis Alberto as 00 Apply to Medical fungal Branch toenails once daily; Every 7 days file toenails with nail filer and apply rubbing alcohol. ciclopirox 2021-0 Yes [id number] Apply to [facility] ([facility]) 8 6-15 area(s) at ity of % solution 00:00: bedtime. Luis Alberto as 00 Apply to Medical fungal Branch toenails once daily; Every 7 days file toenails with nail filer and apply rubbing alcohol. ciclopirox 2022- No [id number] Apply to [facility] ([facility]) [phone] 06-19 area(s) at it y of % solution 00:00: 00:00 [place] :00 Apply to [facility] Branch toenails once daily; Every 7 days file toenails with nail filer and apply rubbing alcohol. Insulin Yes [id number] [facility] [place], [facility] DIRECTED [facility]y of Disposable, 00:00: [place] (NOVOFINE 00 [facility] 32) 32 ONCE DAILY Branch gauge x ICD-10 1/4" Ndle CODE E11.22 Insulin Yes [id number] USE [facility] [place], 5-03 DIRECTED ity of Disposable, 00:00: [place] (NOVOFINE 00 [facility] 32) 32 ONCE DAILY Branch gauge x ICD-10 1/4" Ndle CODE E11.22 Insulin Yes [id number] USE [facility] [place], 5-03 DIRECTED ity of Disposable, 00:00: [place]JECT [place] (NOVOFINE 00 [facility] 32) 32 ONCE DAILY Branch gauge x ICD-10 1/4" Ndle CODE E11.22 Insulin Yes [id number] USE [facility] [place], 5-03 DIRECTED ity of Disposable, 00:00: [place]JECT [place] (NOVOFINE 00 [facility] 32) 32 ONCE DAILY Branch gauge x ICD-10 1/4" Ndle CODE E11.22 Insulin Yes [id number] USE [facility] [place], 5-03 DIRECTED ity of Disposable, 00:00: [place] (NOVOFINE 00 [facility] 32) 32 ONCE DAILY Branch gauge x ICD-10 1/4" Ndle CODE E11.22 Insulin Yes [id number] USE [facility] [place], 5-03 DIRECTED ity of Disposable, 00:00: TO [place]JECT [place] (NOVOFINE 00 [facility] 32) 32 ONCE DAILY Branch gauge x ICD-10 1/4" Ndle CODE E11.22 Insulin Yes [id number] USE [facility] [place], 5-03 DIRECTED ity of Disposable, 00:00: [place]JECT [place] (NOVOFINE 00 [facility] 32) 32 ONCE DAILY Branch gauge x ICD-10 1/4" Ndle CODE E11.22 Insulin Yes [id number] USE [facility] [place], 5-03 DIRECTED ity of Disposable, 00:00: TO [place]JECT [place] (NOVOFINE 00 [facility] 32) 32 ONCE DAILY Branch gauge x ICD-10 1/4" Ndle CODE E11.22 Insulin Yes [id number] USE [facility] [place], 5-03 DIRECTED ity of Disposable, 00:00: TO INJECT [place] (NOVOFINE 00 [facility] 32) 32 ONCE DAILY Branch gauge x ICD-10 1/4" Ndle CODE E11.22 Insulin Yes [id number] USE [facility] [place], 5- DIRECTED ity of Disposable, 00:00: TO INJECT [place] (NOVOFINE 00 [facility] 32) 32 ONCE DAILY Branch gauge x ICD-10 1/4" Ndle CODE E11.22 Insulin Yes [id number] USE [facility] [place], 5- DIRECTED ity of Disposable, 00:00: TO INJECT [place] (NOVOFINE 00 [facility] 32) 32 ONCE DAILY Branch gauge x ICD-10 1/4" Ndle CODE E11.22 Insulin Yes [id number] USE [facility] [place], 5- DIRECTED ity of Disposable, 00:00: TO INJECT [place] (NOVOFINE 00 [facility] 32) 32 ONCE DAILY Branch gauge x ICD-10 1/4" Ndle CODE E11.22 Insulin Yes [id number] USE [facility] [place], 5-03 DIRECTED ity of Disposable, 00:00: TO INJECT [place] (NOVOFINE 00 [facility] 32) 32 ONCE DAILY Branch gauge x ICD-10 1/4" Ndle CODE E11.22 Insulin Yes [id number] USE [facility] [place], 5-03 DIRECTED ity of Disposable, 00:00: TO INJECT [place] (NOVOFINE 00 [facility] 32) 32 ONCE DAILY Branch gauge x ICD-10 1/4" Ndle CODE E11.22 Insulin Yes [id number] USE [facility] [place], 5-03 DIRECTED ity of Disposable, 00:00: TO INJECT [place] (NOVOFINE 00 [facility] 32) 32 ONCE DAILY Branch gauge x ICD-10 1/4" Ndle CODE E11.22 Insulin Yes [id number] USE [facility] [place], 5-03 DIRECTED ity of Disposable, 00:00: TO INJECT [place] (NOVOFINE 00 [facility] 32) 32 ONCE DAILY Branch gauge x ICD-10 1/4" Ndle CODE E11.22 Insulin Yes [id number] USE [facility] [place], 5-03 DIRECTED ity of Disposable, 00:00: TO INJECT [place] (NOVOFINE 00 [facility] 32) 32 ONCE DAILY Branch gauge x ICD-10 1/4" Ndle CODE E11.22 Insulin Yes [id number] USE [facility] [place], 5- DIRECTED ity of Disposable, 00:00: TO INJECT [place] (NOVOFINE 00 [facility] 32) 32 ONCE DAILY Branch gauge x ICD-10 1/4" Ndle CODE E11.22 Insulin Yes [id number] USE [facility] [place], 5- DIRECTED ity of Disposable, 00:00: TO INJECT [place] (NOVOFINE 00 [facility] 32) 32 ONCE DAILY Branch gauge x ICD-10 1/4" Ndle CODE E11.22 Insulin Yes [id number] USE [facility] [place], 5-03 DIRECTED ity of Disposable, 00:00: TO INJECT [place] (NOVOFINE 00 [facility] 32) 32 ONCE DAILY Branch gauge x ICD-10 1/4" Ndle CODE E11.22 Insulin Yes [id number] USE [facility] [place], 5-03 DIRECTED ity of Disposable, 00:00: TO INJECT [place] (NOVOFINE 00 [facility] 32) 32 ONCE DAILY Branch gauge x ICD-10 1/4" Ndle CODE E11.22 Insulin Yes [id number] USE [facility] [place], 5-03 DIRECTED ity of Disposable, 00:00: TO INJECT [place] (NOVOFINE 00 [facility] 32) 32 ONCE DAILY Branch gauge x ICD-10 1/4" Ndle CODE E11.22 Insulin Yes [id number] USE [facility] [place], 5- DIRECTED ity of Disposable, 00:00: TO INJECT [place] (NOVOFINE 00 [facility] 32) 32 ONCE DAILY Branch gauge x ICD-10 1/4" Ndle CODE E11.22 Insulin Yes [id number] USE [facility] [place], 5- DIRECTED ity of Disposable, 00:00: TO INJECT [place] (NOVOFINE 00 [facility] 32) 32 ONCE DAILY Branch gauge x ICD-10 1/4" Ndle CODE E11.22 Insulin Yes [id number] USE [facility] [place], 5- DIRECTED ity of Disposable, 00:00: TO INJECT [place] (NOVOFINE 00 [facility] 32) 32 ONCE DAILY Branch gauge x ICD-10 1/4" Ndle CODE E11.22 Insulin Yes [id number] USE [facility] [place], 5- DIRECTED ity of Disposable, 00:00: TO INJECT [place] (NOVOFINE 00 [facility] 32) 32 ONCE DAILY Branch gauge x ICD-10 1/4" Ndle CODE E11.22 Insulin Yes [id number] USE [facility] [place], 5- DIRECTED ity of Disposable, 00:00: TO INJECT [place] (NOVOFINE 00 [facility] 32) 32 ONCE DAILY Branch gauge x ICD-10 1/4" Ndle CODE E11.22 Insulin Yes [id number] USE [facility] [place], 5- DIRECTED ity of Disposable, 00:00: TO INJECT [place] (NOVOFINE 00 [facility] 32) 32 ONCE DAILY Branch gauge x ICD-10 1/4" Ndle CODE E11.22 Insulin Yes [id number] USE [facility] [place], 5- DIRECTED ity of Disposable, 00:00: TO INJECT [place] (NOVOFINE 00 [facility] 32) 32 ONCE DAILY Branch gauge x ICD-10 1/4" Ndle CODE E11.22 Insulin Yes [id number] USE [facility] [place], 5-03 DIRECTED ity of Disposable, 00:00: TO INJECT [place] (NOVOFINE 00 [facility] 32) 32 ONCE DAILY Branch gauge x ICD-10 1/4" Ndle CODE E11.22 Insulin Yes [id number] USE [facility] [place], 5- DIRECTED ity of Disposable, 00:00: TO INJECT [place] (NOVOFINE 00 [facility] 32) 32 ONCE DAILY Branch gauge x ICD-10 1/4" Ndle CODE E11.22 Insulin Yes [id number] USE [facility] [place], 5- DIRECTED ity of Disposable, 00:00: TO INJECT [place] (NOVOFINE 00 [facility] 32) 32 ONCE DAILY Branch gauge x ICD-10 1/4" Ndle CODE E11.22 Insulin Yes [id number] USE [facility] [place], 5- DIRECTED ity of Disposable, 00:00: TO INJECT [place] (NOVOFINE 00 [facility] 32) 32 ONCE DAILY Branch gauge x ICD-10 1/4" Ndle CODE E11.22 Insulin Yes [id number] USE [facility] [place], 5- DIRECTED ity of Disposable, 00:00: TO INJECT [place] (NOVOFINE 00 [facility] 32) 32 ONCE DAILY Branch gauge x ICD-10 1/4" Ndle CODE E11.22 Insulin Yes [id number] USE [facility] [place], 5- DIRECTED ity of Disposable, 00:00: TO INJECT [place] (NOVOFINE 00 [facility] 32) 32 ONCE DAILY Branch gauge x ICD-10 1/4" Ndle CODE E11.22 Insulin Yes [id number] USE [facility] [place], 5- DIRECTED ity of Disposable, 00:00: TO INJECT [place] (NOVOFINE 00 [facility] 32) 32 ONCE DAILY Branch gauge x ICD-10 1/4" Ndle CODE E11.22 Insulin 0 Yes [id number] USE [facility] [place], 5- DIRECTED ity of Disposable, 00:00: TO INJECT [place] (NOVOFINE 00 [facility] 32) 32 ONCE DAILY Branch gauge x ICD-10 1/4" Ndle CODE E11.22 Insulin Yes [id number] USE [facility] [place], 5- DIRECTED ity of Disposable, 00:00: TO INJECT [place] (NOVOFINE 00 [facility] 32) 32 ONCE DAILY Branch gauge x ICD-10 1/4" Ndle CODE E11.22 Insulin Yes [id number] USE [facility] [place], 5- DIRECTED ity of Disposable, 00:00: TO INJECT [place] (NOVOFINE 00 [facility] 32) 32 ONCE DAILY Branch gauge x ICD-10 1/4" Ndle CODE E11.22 Insulin 0 Yes [id number] USE [facility] [place], 5- DIRECTED ity of Disposable, 00:00: TO INJECT [place] (NOVOFINE 00 [facility] 32) 32 ONCE DAILY Branch gauge x ICD-10 1/4" Ndle CODE E11.22 Insulin Yes [id number] USE [facility] [place], 5- DIRECTED ity of Disposable, 00:00: TO INJECT [place] (NOVOFINE 00 [facility] 32) 32 ONCE DAILY Branch gauge x ICD-10 1/4" Ndle CODE E11.22 Insulin Yes [id number] USE [facility] [place], 5- DIRECTED ity of Disposable, 00:00: TO INJECT [place] (NOVOFINE 00 [facility] 32) 32 ONCE DAILY Branch gauge x ICD-10 1/4" Ndle CODE E11.22 Insulin Yes [id number] USE [facility] [place], 5- DIRECTED ity of Disposable, 00:00: TO INJECT [place] (NOVOFINE 00 [facility] 32) 32 ONCE DAILY Branch gauge x ICD-10 1/4" Ndle CODE E11.22 Insulin Yes [id number] USE [facility] [place], 5- DIRECTED ity of Disposable, 00:00: TO INJECT [place] (NOVOFINE 00 [facility] 32) 32 ONCE DAILY Branch gauge x ICD-10 1/4" Ndle CODE E11.22 Insulin Yes [id number] USE [facility] [place], 5- DIRECTED ity of Disposable, 00:00: TO INJECT [place] (NOVOFINE 00 [facility] 32) 32 ONCE DAILY Branch gauge x ICD-10 1/4" Ndle CODE E11.22 Insulin Yes [id number] USE [facility] [place], 5- DIRECTED ity of Disposable, 00:00: TO INJECT [place] (NOVOFINE 00 [facility] 32) 32 ONCE DAILY Branch gauge x ICD-10 1/4" Ndle CODE E11.22 Insulin Yes [id number] USE [facility] [place], 5- DIRECTED ity of Disposable, 00:00: TO INJECT [place] (NOVOFINE 00 [facility] 32) 32 ONCE DAILY Branch gauge x ICD-10 1/4" Ndle CODE E11.22 Insulin Yes [id number] USE [facility] [place], 5- DIRECTED ity of Disposable, 00:00: TO INJECT [place] (NOVOFINE 00 [facility] 32) 32 ONCE DAILY Branch gauge x ICD-10 1/4" Ndle CODE E11.22 Insulin Yes [id number] USE [facility] [place], 5- DIRECTED ity of Disposable, 00:00: TO INJECT [place] (NOVOFINE 00 [facility] 32) 32 ONCE DAILY Branch gauge x ICD-10 1/4" Ndle CODE E11.22 Insulin Yes [id number] USE [facility] [place], 5- DIRECTED ity of Disposable, 00:00: TO INJECT [place] (NOVOFINE 00 [facility] 32) 32 ONCE DAILY Branch gauge x ICD-10 1/4" Ndle CODE E11.22 Insulin Yes [id number] USE [facility] [place], 5- DIRECTED ity of Disposable, 00:00: TO INJECT [place] (NOVOFINE 00 [facility] 32) 32 ONCE DAILY Branch gauge x ICD-10 1/4" Ndle CODE E11.22 Insulin Yes [id number] USE [facility] [place], 5- DIRECTED ity of Disposable, 00:00: TO INJECT [place] (NOVOFINE 00 [facility] 32) 32 ONCE DAILY Branch gauge x ICD-10 1/4" Ndle CODE E11.22 Insulin 0 Yes [id number] USE [facility] [place], 5- DIRECTED ity of Disposable, 00:00: TO INJECT [place] (NOVOFINE 00 [facility] 32) 32 ONCE DAILY Branch gauge x ICD-10 1/4" Ndle CODE E11.22 Insulin Yes [id number] USE [facility] [place], 5- DIRECTED ity of Disposable, 00:00: [place] INJECT [place] (NOVOFINE [address] [facility] 32) 32 ONCE DAILY Branch gauge x ICD-10 06/19" Ndle CODE E11.22 Insulin 2020-0 Yes [id number] USE [facility] [place], 10-16 DIRECTED ity of Disposable, 00:00: TO INJECT [place] (NOVOFINE [address] [facility] 32) 32 ONCE DAILY Branch gauge x ICD-10 06/19" Ndle CODE E11.22 loperamide 2020-0 Yes [facility] 2 mg 4-16 ity of capsule 00:00: [place] [facility] ondansetron 0 Yes Univer [facility] 4 mg tablet 4-16 ity of 00:00: [place] [facility] loperamide 2020-0 Yes [facility] 2 mg 4-16 ity of capsule 00:00: [place] [facility] ondansetron 2020-0 Yes [facility] 4 mg tablet 4-16 ity of 00:00: [place] [facility] loperamide 2020-0 Yes [facility] 2 mg 4-16 ity of capsule 00:00: Medical Branch ondansetron 2020-0 Yes [facility] 4 mg tablet 4-16 ity of 00:00: [place] [facility] loperamide 2020-0 Yes [facility] 2 mg 4-16 ity of capsule 00:00: [place] [facility] ondansetron 2020-0 Yes [facility] [...] 4 mg tablet 4-16 ity of 00:00: [place] [facility] loperamide 2020-0 Yes [facility] 2 mg 4-16 ity of capsule 00:00: Medical Branch ondansetron 2020-0 Yes [facility] 4 mg tablet 4-16 ity of 00:00: Medical Branch loperamide 2020-0 Yes [facility] 2 mg 4-16 ity of capsule 00:00: [place] [facility] ondansetron 1-0 Yes [facility] 4 mg tablet 4-16 ity of 00:00: [place] [facility] loperamide 1-0 Yes [facility] 2 mg 4-16 ity of capsule 00:00: [place] [facility] ondansetron 1-0 Yes [facility] 4 mg tablet 4-16 ity of 00:00: [place] [facility] loperamide 1-0 Yes [facility] 2 mg 4-16 ity of capsule 00:00: [place] [facility] ondansetron 2020-0 Yes [facility] 4 mg tablet 4-16 ity of 00:00: [place] [facility] loperamide 1-0 Yes [facility] 2 mg 4-16 ity of capsule 00:00: [place] [facility] ondansetron 2020-0 Yes [facility] 4 mg tablet 4-16 ity of 00:00: [place] [facility] loperamide 2020-0 Yes [facility] 2 mg 4-16 ity of capsule 00:00: [place] [facility] ondansetron 2020-0 Yes [facility] 4 mg tablet 4-16 ity of 00:00: [place] [facility] loperamide 1-0 Yes [facility] 2 mg 4-16 ity of capsule 00:00: [place] [id number] Medical Branch ondansetron 2020-0 Yes [facility] 4 mg tablet 4-16 ity of 00:00: [place] [facility] loperamide 1-0 Yes [facility] 2 mg 4-16 ity of capsule 00:00: [place] [facility] ondansetron 1-0 Yes [facility] 4 mg tablet 4-16 ity of 00:00: [place] [facility] loperamide 1-0 Yes [facility] 2 mg 4-16 ity of capsule 00:00: [place] [id number] Medical Branch ondansetron 1-0 Yes [facility] 4 mg tablet 4-16 ity of 00:00: [place] [facility] loperamide 1-0 Yes [facility] 2 mg 4-16 ity of capsule 00:00: [place] [facility] ondansetron 2020-0 Yes [facility] 4 mg tablet 4-16 ity of 00:00: [place] [facility] loperamide 1-0 Yes [facility] 2 mg 4-16 ity of capsule 00:00: [place] [facility] ondansetron 1-0 Yes [facility] 4 mg tablet 4-16 ity of 00:00: [place] 00 [facility] Branch loperamide 1-0 Yes [facility] 2 mg 4-16 ity of capsule 00:00: [place] [facility] ondansetron 2020-0 Yes [facility] 4 mg tablet 4-16 ity of 00:00: [place] [facility] loperamide 1-0 Yes [facility] 2 mg 4-16 ity of capsule 00:00: [place] [facility] ondansetron 2020-0 Yes [facility] 4 mg tablet 4-16 ity of 00:00: [place] [facility] loperamide 2020-0 Yes [facility] 2 mg 4-16 ity of capsule 00:00: [place] [facility] ondansetron 2020-0 Yes [facility] 4 mg tablet 4-16 ity of 00:00: [place] [facility] loperamide 2020-0 Yes [facility] 2 mg 4-16 ity of capsule 00:00: [place] [facility] ondansetron 2020-0 Yes [facility] 4 mg tablet 4-16 ity of 00:00: [place] [facility] loperamide 2020-0 Yes [facility] 2 mg 4-16 ity of capsule 00:00: [place] [id number] Medical Branch ondansetron 2020-0 Yes [facility] 4 mg tablet 4-16 ity of 00:00: [place] [facility] loperamide 1-0 Yes [facility] 2 mg 4-16 ity of capsule 00:00: [place] [facility] ondansetron 2020-0 Yes [facility] 4 mg tablet 4-16 ity of 00:00: [place] [facility] loperamide 1-0 Yes [facility] 2 mg 4-16 ity of capsule 00:00: [place] [facility] ondansetron 1-0 Yes [facility] 4 mg tablet 4-16 ity of 00:00: [place] [facility] loperamide 1-0 Yes [facility] 2 mg 4-16 ity of capsule 00:00: [place] [facility] ondansetron 2020-0 Yes [facility] 4 mg tablet 4-16 ity of 00:00: [place] [facility] loperamide 1-0 Yes [facility] 2 mg 4-16 ity of capsule 00:00: [place] [facility] ondansetron 2021-0 Yes [facility] 4 mg tablet 4-16 ity of 00:00: Medical Branch loperamide 1-0 Yes [facility] 2 mg 4-16 ity of capsule 00:00: [facility] ondansetron 2020-0 Yes [facility] 4 mg tablet 4-16 ity of 00:00: [place] [facility] loperamide 1-0 Yes [facility] 2 mg 4-16 ity of capsule 00:00: [facility] ondansetron 2020-0 Yes [facility] 4 mg tablet 4-16 ity of 00:00: [place] [facility] loperamide 2020-0 Yes [facility] 2 mg 4-16 ity of capsule 00:00: [place] [facility] ondansetron 2020-0 Yes [facility] 4 mg tablet 4-16 ity of 00:00: [place] [facility] loperamide 2020-0 Yes [facility] 2 mg 4-16 ity of capsule 00:00: [place] [facility] ondansetron 2020-0 Yes [facility] 4 mg tablet 4-16 ity of 00:00: [place] [facility] loperamide 2020-0 Yes [facility] 2 mg 4-16 ity of capsule 00:00: [place] [facility] ondansetron 2020-0 Yes [facility] 4 mg tablet 4-16 ity of 00:00: [place] [facility] loperamide 2020-0 Yes [facility] 2 mg 4-16 ity of capsule 00:00: [place] [facility] ondansetron 2020-0 Yes [facility] 4 mg tablet 4-16 ity of 00:00: Medical Branch loperamide 1-0 Yes [facility] 2 mg 4-16 ity of capsule 00:00: [place] [facility] ondansetron 2020-0 Yes Un[facility] 4 mg tablet 4-16 ity of 00:00: [place] [facility] loperamide 1-0 Yes [facility] 2 mg 4-16 ity of capsule 00:00: [place] [facility] ondansetron 2020-0 Yes [facility] 4 mg tablet 4-16 ity of 00:00: [place] [facility] loperamide 1-0 Yes [facility] 2 mg 4-16 ity of capsule 00:00: [place] [facility] ondansetron 2020-0 Yes [facility] 4 mg tablet 4-16 ity of 00:00: [place] [facility] loperamide 2020-0 Yes [facility] 2 mg 4-16 ity of capsule 00:00: [place] [facility] ondansetron 2020-0 Yes [facility] 4 mg tablet 4-16 ity of 00:00: [place] [facility] loperamide 2020-0 Yes [facility] 2 mg 4-16 ity of capsule 00:00: [place] [facility] ondansetron 2020-0 Yes [facility] 4 mg tablet 4-16 ity of 00:00: [place] [facility] loperamide 2020-0 Yes [facility] 2 mg 4-16 ity of capsule 00:00: [place] [facility] ondansetron 2020-0 Yes [facility] 4 mg tablet 4-16 ity of 00:00: [place] [facility] loperamide 2020-0 Yes [facility] 2 mg 4-16 ity of capsule 00:00: [place] [facility] ondansetron 2020-0 Yes [facility] 4 mg tablet 4-16 ity of 00:00: [place] [facility] loperamide 2020-0 Yes [facility] 2 mg 4-16 ity of capsule 00:00: [place] [facility] ondansetron 2020-0 Yes [facility] 4 mg tablet 4-16 ity of 00:00: [place] [facility] loperamide 2020-0 Yes [facility] 2 mg 4-16 ity of capsule 00:00: [place] [facility] ondansetron 2020-0 Yes [facility] 4 mg tablet 4-16 ity of 00:00: [place] [facility] loperamide 1-0 Yes [facility] 2 mg 4-16 ity of capsule 00:00: [place] [facility] ondansetron 2020-0 Yes [facility] 4 mg tablet 4-16 ity of 00:00: [place] [facility] loperamide 1-0 Yes [facility] 2 mg 4-16 ity of capsule 00:00: [place] [facility] ondansetron 2020-0 Yes Un[facility] 4 mg tablet 4-16 ity of 00:00: [place] [id number] Medical Branch loperamide 2020-0 Yes [facility] 2 mg 4-16 ity of capsule 00:00: [place] [facility] ondansetron 2020-0 Yes Un[facility] 4 mg tablet 4-16 ity of 00:00: Medical Branch loperamide 2020-0 Yes [facility] 2 mg 4-16 ity of capsule 00:00: Medical Branch ondansetron 2020-0 Yes [facility] 4 mg tablet 4-16 ity of 00:00: Medical Branch loperamide 2020-0 Yes [facility] 2 mg 4-16 ity of capsule 00:00: [place] [facility] ondansetron 2020-0 Yes Un[facility] 4 mg tablet 4-16 ity of 00:00: Medical Branch loperamide 2020-0 Yes [facility] 2 mg 4-16 ity of capsule 00:00: [place] [facility] ondansetron 2020-0 Yes Un[facility] 4 mg tablet 4-16 ity of 00:00: [place] [facility] loperamide 2020-0 Yes [facility] 2 mg 4-16 ity of capsule 00:00: [place] [facility] ondansetron 0 Yes Un[facility] 4 mg tablet 4-16 ity of 00:00: [place] [facility] loperamide 2020-0 3- No Un[facility] 2 mg 4-16 -04 ity of capsule 00:00: 00:00 [place] 00 :00 [facility] ondansetron 2020-0 3- No Unive rs 4 mg tablet 4-16 -04 ity of 00:00: 00:00 [place] 00 :00 Medical Branch acetaminoph 2020- Yes [id number] 650mg Take 1 Univers en (TYLENOL 0-20 tablet by ity of 8 HOUR) 650 00:00: mouth [place] mg CR 00 every 8 Medical tablet (eight) Branch hours as needed for Pain. acetaminoph 2019-06 Yes [id number] 650mg Take 1 [facility] en (TYLENOL 0-20 tablet by ity of 8 HOUR) 650 00:00: mouth [place] mg CR 00 every 8 Medical tablet (eight) Branch hours as needed for Pain. acetaminoph 2019- Yes [id number] 650mg Take 1 [facility] en (TYLENOL 0-20 tablet by ity of 8 HOUR) 650 00:00: mouth [place] mg CR 00 every 8 Medical tablet (eight) Branch hours as needed for Pain. acetaminoph 2019- Yes [id number] 650mg Take 1 [facility] en (TYLENOL 0-20 tablet by ity of 8 HOUR) 650 00:00: mouth [place] mg CR 00 every 8 Medical tablet (eight) Branch hours as needed for Pain. acetaminoph 2020- Yes [id number] 650mg Take 1 [facility] en (TYLENOL 0-20 tablet by ity of 8 HOUR) 650 00:00: mouth [place] mg CR 00 every 8 Medical tablet (eight) Branch hours as needed for Pain. acetaminoph 2019- Yes [id number] 650mg Take 1 [facility] en (TYLENOL 0-20 tablet by ity of 8 HOUR) 650 00:00: mouth [place] mg CR 00 every 8 Medical tablet (eight) Branch hours as needed for Pain. acetaminoph 2019-06 Yes [id number] 650mg Take 1 [facility] en (TYLENOL 0-20 tablet by ity of 8 HOUR) 650 00:00: mouth [place] mg CR 00 every 8 Medical tablet (eight) Branch hours as needed for Pain. acetaminoph 2019-06 Yes [id number] 650mg Take 1 [facility] en (TYLENOL 0-20 tablet by ity of 8 HOUR) 650 00:00: mouth [place] mg CR 00 every 8 Medical tablet (eight) Branch hours as needed for Pain. acetaminoph 2019-06 Yes [id number] 650mg Take 1 [facility] en (TYLENOL 0-20 tablet by ity of 8 HOUR) 650 00:00: mouth [place] mg CR 00 every 8 Medical tablet (eight) Branch hours as needed for Pain. acetaminoph 2019-06 Yes [id number] 650mg Take 1 [facility] en (TYLENOL 0-20 tablet by ity of 8 HOUR) 650 00:00: mouth [place] mg CR 00 every 8 Medical tablet (eight) Branch hours as needed for Pain. acetaminoph 2019- Yes [id number] 650mg Take 1 [facility] en (TYLENOL 0-20 tablet by ity of 8 HOUR) 650 00:00: mouth [place] mg CR 00 every 8 Medical tablet (eight) Branch hours as needed for Pain. acetaminoph 2020- Yes [id number] 650mg Take 1 [facility] en (TYLENOL 0-20 tablet by ity of 8 HOUR) 650 00:00: mouth [place] mg CR 00 every 8 Medical tablet (eight) Branch hours as needed for Pain. acetaminoph 2020- Yes [id number] 650mg Take 1 [facility] en (TYLENOL 0-20 tablet by ity of 8 HOUR) 650 00:00: mouth [place] mg CR 00 every 8 Medical tablet (eight) Branch hours as needed for Pain. acetaminoph 2020- Yes [id number] 650mg Take 1 [facility] en (TYLENOL 0-20 tablet by ity of 8 HOUR) 650 00:00: mouth [place] mg CR 00 every 8 Medical tablet (eight) Branch hours as needed for Pain. acetaminoph 2019-06 Yes [id number] 650mg Take 1 [facility] en (TYLENOL 0-20 tablet by ity of 8 HOUR) 650 00:00: mouth [place] mg CR 00 every 8 Medical tablet (eight) Branch hours as needed for Pain. acetaminoph 2019-06 Yes [id number] 650mg Take 1 [facility] en (TYLENOL 0-20 tablet by ity of 8 HOUR) 650 00:00: mouth [place] mg CR 00 every 8 Medical tablet (eight) Branch hours as needed for Pain. acetaminoph 2019-06 Yes [id number] 650mg Take 1 [facility] en (TYLENOL 0-20 tablet by ity of 8 HOUR) 650 00:00: mouth [place] mg CR 00 every 8 Medical tablet (eight) Branch hours as needed for Pain. acetaminoph 2019-06 Yes [id number] 650mg Take 1 [facility] en (TYLENOL 0-20 tablet by ity of 8 HOUR) 650 00:00: mouth [place] mg CR 00 every 8 Medical tablet (eight) Branch hours as needed for Pain. acetaminoph 2019-06 Yes [id number] 650mg Take 1 [facility] en (TYLENOL 0-20 tablet by ity of 8 HOUR) 650 00:00: mouth [place] mg CR 00 every 8 Medical tablet (eight) Branch hours as needed for Pain. acetaminoph 2019-06 Yes [id number] 650mg Take 1 [facility] en (TYLENOL 0-20 tablet by ity of 8 HOUR) 650 00:00: mouth [place] mg CR 00 every 8 Medical tablet (eight) Branch hours as needed for Pain. acetaminoph 2020- Yes [id number] 650mg Take 1 [facility] en (TYLENOL 0-20 tablet by ity of 8 HOUR) 650 00:00: mouth [place] mg CR 00 every 8 Medical tablet (eight) Branch hours as needed for Pain. acetaminoph 2020- Yes [id number] 650mg Take 1 [facility] en (TYLENOL 0-20 tablet by ity of 8 HOUR) 650 00:00: mouth [place] mg CR 00 every 8 Medical tablet (eight) Branch hours as needed for Pain. acetaminoph 2019-06 Yes [id number] 650mg Take 1 [facility] en (TYLENOL 0-20 tablet by ity of 8 HOUR) 650 00:00: mouth [place] mg CR 00 every 8 Medical tablet (eight) Branch hours as needed for Pain. acetaminoph 2019-06 Yes [id number] 650mg Take 1 [facility] en (TYLENOL 0-20 tablet by ity of 8 HOUR) 650 00:00: mouth [place] mg CR 00 every 8 Medical tablet (eight) Branch hours as needed for Pain. acetaminoph 2019-06 Yes [id number] 650mg Take 1 [facility] en (TYLENOL 0-20 tablet by ity of 8 HOUR) 650 00:00: mouth [place] mg CR 00 every 8 Medical tablet (eight) Branch hours as needed for Pain. acetaminoph 2019-06 Yes [id number] 650mg Take 1 [facility] en (TYLENOL 0-20 tablet by ity of 8 HOUR) 650 00:00: mouth [place] mg CR 00 every 8 Medical tablet (eight) Branch hours as needed for Pain. acetaminoph 2019-06 Yes [id number] 650mg Take 1 [facility] (TYLENOL 0-20 tablet by [facility] of 8 HOUR) 650 00:00: mouth [place] mg CR 00 every 8 Medical tablet (eight) Branch hours as needed for Pain. acetaminoph 2019-06 Yes [id number] 650mg Take 1 [facility] (TYLENOL 0-20 tablet by [facility] of 8 HOUR) 650 00:00: mouth [place] mg CR 00 every 8 Medical tablet (eight) Branch hours as needed for Pain. acetaminoph 2019-06 Yes [id number] 650mg Take 1 [facility] (TYLENOL 0-20 tablet by [facility]y of 8 HOUR) 650 00:00: mouth [place] mg CR 00 every 8 Medical tablet (eight) Branch hours as needed for Pain. acetaminoph 2019- Yes [id number] 650mg Take 1 [facility] (TYLENOL 0-20 tablet by [facility] of 8 HOUR) 650 00:00: mouth [place] mg CR 00 every 8 Medical tablet (eight) Branch hours as needed for Pain. acetaminoph 2019- Yes [id number] 650mg Take 1 [facility] (TYLENOL 0-20 tablet by [facility]y of 8 HOUR) 650 00:00: mouth [place] mg CR 00 every 8 Medical tablet (eight) Branch hours as needed for Pain. acetaminoph 2020- Yes [id number] 650mg Take 1 [facility] (TYLENOL 0-20 tablet by [facility] of 8 HOUR) 650 00:00: mouth [place] mg CR 00 every 8 Medical tablet (eight) Branch hours as needed for Pain. acetaminoph 2019- Yes [id number] 650mg Take 1 [facility] (TYLENOL 0-20 tablet by [facility] of 8 HOUR) 650 00:00: mouth [place] mg CR 00 every 8 Medical tablet (eight) Branch hours as needed for Pain. acetaminoph 2019-06 Yes [id number] 650mg Take 1 [facility] (TYLENOL 0-20 tablet by [facility]y of 8 HOUR) 650 00:00: mouth [place] mg CR 00 every 8 Medical tablet (eight) Branch hours as needed for Pain. acetaminoph 2019-06 Yes [id number] 650mg Take 1 [facility] (TYLENOL 0-20 tablet by [facility] of 8 HOUR) 650 00:00: mouth [place] mg CR 00 every 8 Medical tablet (eight) Branch hours as needed for Pain. acetaminoph 2019- Yes [id number] 650mg Take 1 [facility] (TYLENOL 0-20 tablet by [facility] of 8 HOUR) 650 00:00: mouth [place] mg CR 00 every 8 Medical tablet (eight) Branch hours as needed for Pain. acetaminoph 2019-06 Yes [id number] 650mg Take 1 [facility] (TYLENOL 0-20 tablet by [facility]y of 8 HOUR) 650 00:00: mouth [place] mg CR 00 every 8 Medical tablet (eight) Branch hours as needed for Pain. acetaminoph 2019- Yes [id number] 650mg Take 1 [facility] (TYLENOL 0-20 tablet by [facility]y of 8 HOUR) 650 00:00: mouth [place] mg CR 00 every 8 Medical tablet (eight) Branch hours as needed for Pain. acetaminoph 2020- Yes [id number] 650mg Take 1 [facility] (TYLENOL 0-20 tablet by [facility]y of 8 HOUR) 650 00:00: mouth [place] mg CR 00 every 8 Medical tablet (eight) Branch hours as needed for Pain. acetaminoph 2020- Yes [id number] 650mg Take 1 [facility] (TYLENOL 0-20 tablet by [facility] of 8 HOUR) 650 00:00: mouth [place] mg CR 00 every 8 Medical tablet (eight) Branch hours as needed for Pain. acetaminoph 2019-06 Yes [id number] 650mg Take 1 [facility] (TYLENOL 0-20 tablet by [facility] of 8 HOUR) 650 00:00: mouth [place] mg CR 00 every 8 Medical tablet (eight) Branch hours as needed for Pain. acetaminoph 2019-06 Yes [id number] 650mg Take 1 [facility] (TYLENOL 0-20 tablet by [facility]y of 8 HOUR) 650 00:00: mouth [place] mg CR 00 every 8 Medical tablet (eight) Branch hours as needed for Pain. acetaminoph 2019-06 Yes [id number] 650mg Take 1 [facility] (TYLENOL 0-20 tablet by [facility]y of 8 HOUR) 650 00:00: mouth [place] mg CR 00 every 8 Medical tablet (eight) Branch hours as needed for Pain. acetaminoph 2019-06 Yes [id number] 650mg Take 1 [facility] (TYLENOL 0-20 tablet by [facility]y of 8 HOUR) 650 00:00: mouth [place] mg CR 00 every 8 Medical tablet (eight) Branch hours as needed for Pain. acetaminoph 2019-06 Yes [id number] 650mg Take 1 [facility] (TYLENOL 0-20 tablet by [facility]y of 8 HOUR) 650 00:00: mouth [place] mg CR 00 every 8 Medical tablet (eight) Branch hours as needed for Pain. acetaminoph 2019-06 Yes [id number] 650mg Take 1 [facility] (TYLENOL 0-20 tablet by [facility]y of 8 HOUR) 650 00:00: mouth [place] mg CR 00 every 8 Medical tablet (eight) Branch hours as needed for Pain. acetaminoph 2019-06 Yes [id number] 650mg Take 1 [facility] (TYLENOL 0-20 tablet by ity of 8 HOUR) 650 00:00: mouth [place] mg CR 00 every 8 Medical tablet (eight) Branch hours as needed for Pain. acetaminoph 2019-06 Yes [id number] 650mg Take 1 [facility] (TYLENOL 0-20 tablet by ity of 8 HOUR) 650 00:00: mouth [place] mg CR 00 every 8 Medical tablet (eight) Branch hours as needed for Pain. acetaminoph 2019-063- No [id number] 650mg Take 1 [facility] (TYLENOL 0-20 01-04 tablet by it y of 8 HOUR) 650 00:00: 00:00 [facility] [place] [facility] CR 00 :00 every 8 Medical tablet (eight) Branch hours as needed for Pain. Alcohol 2020-0 Yes [id number] Use 1 pad [facility] nivers Swabs 4-03 PRN to ity of (ALCOHOL 00:00: prep [facility] [place] PREP PADS) 00 for Medical PadM insulin Branch injection or glucose testing; ICD-10 code E11.22 Alcohol 2020-0 Yes [id number] Use 1 pad [facility] nivers Swabs 4-03 PRN to ity of (ALCOHOL 00:00: prep [facility] [place] PREP PADS) 00 for Medical PadM insulin Branch injection or glucose testing; ICD-10 code E11.22 Alcohol 2020-0 Yes [id number] Use 1 pad [facility] nivers Swabs 4-03 PRN to ity of (ALCOHOL 00:00: prep [facility] [place] PREP PADS) 00 for Medical PadM insulin Branch injection or glucose testing; ICD-10 code E11.22 Alcohol 2020-0 Yes [id number] Use 1 pad [facility] Swabs 4-03 PRN to ity of (ALCOHOL 00:00: prep [facility] [place] PREP PADS) 00 for Medical PadM insulin Branch injection or glucose testing; ICD-10 code E11.22 Alcohol 2020-0 Yes [id number] Use 1 pad [facility] nivers Swabs 4-03 PRN to ity of (ALCOHOL 00:00: prep [facility] [place] PREP PADS) 00 for Medical PadM insulin Branch injection or glucose testing; ICD-10 code E11.22 Alcohol 2020-0 Yes [id number] Use 1 pad [facility] Swabs 4-03 PRN to ity of (ALCOHOL 00:00: prep [facility] [place] PREP PADS) 00 for Medical PadM insulin Branch injection or glucose testing; ICD-10 code E11.22 Alcohol 2020-0 Yes [id number] Use 1 pad [facility]ivers Swabs 4-03 PRN to ity of (ALCOHOL 00:00: prep [facility] [place] PREP PADS) 00 for Medical PadM insulin Branch injection or glucose testing; ICD-10 code E11.22 Alcohol 2020-0 Yes [id number] Use 1 pad [facility]ivers Swabs 4-03 PRN to ity of (ALCOHOL 00:00: prep [facility] [place] PREP PADS) 00 for Medical PadM insulin Branch injection or glucose testing; ICD-10 code E11.22 Alcohol 2020-0 Yes [id number] Use 1 pad [facility] Swabs 4-03 PRN to ity of (ALCOHOL 00:00: prep [facility] [place] PREP PADS) 00 for Medical PadM insulin Branch injection or glucose testing; ICD-10 code E11.22 Alcohol 2020-0 Yes [id number] Use 1 pad [facility] Swabs 4-03 PRN to ity of (ALCOHOL 00:00: prep [facility] [place] PREP PADS) 00 for Medical PadM insulin Branch injection or glucose testing; ICD-10 code E11.22 Alcohol 2020-0 Yes [id number] Use 1 pad [facility] Swabs 4-03 PRN to ity of (ALCOHOL 00:00: prep [facility] [place] PREP PADS) 00 for Medical PadM insulin Branch injection or glucose testing; ICD-10 code E11.22 Alcohol 2020-0 Yes [id number] Use 1 pad [facility] Swabs 4-03 PRN to ity of (ALCOHOL 00:00: prep [facility] [place] PREP PADS) 00 for Medical PadM insulin Branch injection or glucose testing; ICD-10 code E11.22 Alcohol 2020-0 Yes [id number] Use 1 pad [facility] nivers Swabs 4-03 PRN to ity of (ALCOHOL 00:00: prep [facility] [place] PREP PADS) 00 for Medical PadM insulin Branch injection or glucose testing; ICD-10 code E11.22 Alcohol 2020-0 Yes [id number] Use 1 pad [facility] Swabs 4-03 PRN to ity of (ALCOHOL 00:00: prep [facility] [place] PREP PADS) 00 for Medical PadM insulin Branch injection or glucose testing; ICD-10 code E11.22 Alcohol 2020-0 Yes [id number] Use 1 pad [facility] Swabs 4-03 PRN to ity of (ALCOHOL 00:00: prep [facility] [place] PREP PADS) 00 for Medical PadM insulin Branch injection or glucose testing; ICD-10 code E11.22 Alcohol 2020-0 Yes [id number] Use 1 pad [facility] Swabs 4-03 PRN to ity of (ALCOHOL 00:00: prep [facility] [place] PREP PADS) 00 for Medical PadM insulin Branch injection or glucose testing; ICD-10 code E11.22 Alcohol 2020-0 Yes [id number] Use 1 pad [facility] Swabs 4-03 PRN to ity of (ALCOHOL 00:00: prep [facility] [place] PREP PADS) 00 for Medical PadM insulin Branch injection or glucose testing; ICD-10 code E11.22 Alcohol 2020-0 Yes [id number] Use 1 pad [facility] Swabs 4-03 PRN to ity of (ALCOHOL 00:00: prep [facility] [place] PREP PADS) 00 for Medical PadM insulin Branch injection or glucose testing; ICD-10 code E11.22 Alcohol 2020-0 Yes [id number] Use 1 pad [facility]ivers Swabs 4-03 PRN to ity of (ALCOHOL 00:00: prep [facility] [place] PREP PADS) 00 for Medical PadM insulin Branch injection or glucose testing; ICD-10 code E11.22 Alcohol 2020-0 Yes [id number] Use 1 pad [facility] Swabs 4-03 PRN to ity of (ALCOHOL 00:00: prep [facility] [place] PREP PADS) 00 for Medical PadM insulin Branch injection or glucose testing; ICD-10 code E11.22 Alcohol 2020-0 Yes [id number] Use 1 pad [facility] Swabs 4-03 PRN to ity of (ALCOHOL 00:00: prep [facility] [place] PREP PADS) 00 for Medical PadM insulin Branch injection or glucose testing; ICD-10 code E11.22 Alcohol 2020-0 Yes [id number] Use 1 pad [facility] Swabs 4-03 PRN to ity of (ALCOHOL 00:00: prep [facility] [place] PREP PADS) 00 for Medical PadM insulin Branch injection or glucose testing; ICD-10 code E11.22 Alcohol 2020-0 Yes [id number] Use 1 pad [facility] Swabs 4-03 PRN to ity of (ALCOHOL 00:00: prep [facility] [place] PREP PADS) 00 for Medical PadM insulin Branch injection or glucose testing; ICD-10 code E11.22 Alcohol 2020-0 Yes [id number] Use 1 pad [facility] Swabs 4-03 PRN to ity of (ALCOHOL 00:00: prep [facility] [place] PREP PADS) 00 for Medical PadM insulin Branch injection or glucose testing; ICD-10 code E11.22 Alcohol 2020-0 Yes [id number] Use 1 pad [facility] Swabs 4-03 PRN to ity of (ALCOHOL 00:00: prep [facility] [place] PREP PADS) 00 for Medical PadM insulin Branch injection or glucose testing; ICD-10 code E11.22 Alcohol 2020-0 Yes [id number] Use 1 pad [facility] Swabs 4-03 PRN to ity of (ALCOHOL 00:00: prep skin [place] PREP PADS) 00 for Medical PadM insulin Branch injection or glucose testing; ICD-10 code E11.22 Alcohol 2020-0 Yes [id number] Use 1 pad [facility] Swabs 4-03 PRN to ity of (ALCOHOL 00:00: prep skin [place] PREP PADS) 00 for Medical PadM insulin Branch injection or glucose testing; ICD-10 code E11.22 Alcohol 2020-0 Yes [id number] Use 1 pad [facility] Swabs 4-03 PRN to ity of (ALCOHOL 00:00: prep skin [place] PREP PADS) 00 for Medical PadM insulin Branch injection or glucose testing; ICD-10 code E11.22 Alcohol 2020-0 Yes [id number] Use 1 pad [facility] Swabs 4-03 PRN to ity of (ALCOHOL 00:00: prep skin [place] PREP PADS) 00 for Medical PadM insulin Branch injection or glucose testing; ICD-10 code E11.22 Alcohol 2020-0 Yes [id number] Use 1 pad [facility] Swabs 4-03 PRN to ity of (ALCOHOL 00:00: prep skin [place] PREP PADS) 00 for Medical PadM insulin Branch injection or glucose testing; ICD-10 code E11.22 Alcohol 2020-0 Yes [id number] Use 1 pad [facility] Swabs 4-03 PRN to ity of (ALCOHOL 00:00: prep skin [place] PREP PADS) 00 for Medical PadM insulin Branch injection or glucose testing; ICD-10 code E11.22 Alcohol 2020-0 Yes [id number] Use 1 pad [facility] Swabs 4-03 PRN to ity of (ALCOHOL 00:00: prep skin [place] PREP PADS) 00 for Medical PadM insulin Branch injection or glucose testing; ICD-10 code E11.22 Alcohol 2020-0 Yes [id number] Use 1 pad [facility] Swabs 4-03 PRN to ity of (ALCOHOL 00:00: prep skin [place] PREP PADS) 00 for Medical PadM insulin Branch injection or glucose testing; ICD-10 code E11.22 Alcohol 2020-0 Yes [id number] Use 1 pad [facility] Swabs 4-03 PRN to ity of (ALCOHOL 00:00: prep skin [place] PREP PADS) 00 for Medical PadM insulin Branch injection or glucose testing; ICD-10 code E11.22 Alcohol 2020-0 Yes [id number] Use 1 pad [facility] Swabs 4-03 PRN to ity of (ALCOHOL 00:00: prep skin [place] PREP PADS) 00 for Medical PadM insulin Branch injection or glucose testing; ICD-10 code E11.22 Alcohol 2020-0 Yes [id number] Use 1 pad [facility] Swabs 4-03 PRN to ity of (ALCOHOL 00:00: prep skin [place] PREP PADS) 00 for Medical PadM insulin Branch injection or glucose testing; ICD-10 code E11.22 Alcohol 2020-0 Yes [id number] Use 1 pad [facility] Swabs 4-03 PRN to ity of (ALCOHOL 00:00: prep skin [place] PREP PADS) 00 for Medical PadM insulin Branch injection or glucose testing; ICD-10 code E11.22 Alcohol 2020-0 Yes [id number] Use 1 pad [facility] Swabs 4-03 PRN to ity of (ALCOHOL 00:00: prep skin [place] PREP PADS) 00 for Medical PadM insulin Branch injection or glucose testing; ICD-10 code E11.22 Alcohol 2020-0 Yes [id number] Use 1 pad [facility]ivers Swabs 4-03 PRN to ity of (ALCOHOL 00:00: prep skin [place] PREP PADS) 00 for Medical PadM insulin Branch injection or glucose testing; ICD-10 code E11.22 Alcohol 2020-0 Yes [id number] Use 1 pad [facility] Swabs 4-03 PRN to ity of (ALCOHOL 00:00: prep skin [place] PREP PADS) 00 for Medical PadM insulin Branch injection or glucose testing; ICD-10 code E11.22 Alcohol 2020-0 Yes [id number] Use 1 pad [facility] Swabs 4-03 PRN to ity of (ALCOHOL 00:00: prep skin [place] PREP PADS) 00 for Medical PadM insulin Branch injection or glucose testing; ICD-10 code E11.22 Alcohol 2020-0 Yes [id number] Use 1 pad [facility] Swabs 4-03 PRN to ity of (ALCOHOL 00:00: prep skin [place] PREP PADS) 00 for Medical PadM insulin Branch injection or glucose testing; ICD-10 code E11.22 Alcohol 2020-0 Yes [id number] Use 1 pad [facility] Swabs 4-03 PRN to ity of (ALCOHOL 00:00: prep skin [place] PREP PADS) 00 for Medical PadM insulin Branch injection or glucose testing; ICD-10 code E11.22 Alcohol 2020-0 Yes [id number] Use 1 pad [facility] Swabs 4-03 PRN to ity of (ALCOHOL 00:00: prep skin [place] PREP PADS) 00 for Medical PadM insulin Branch injection or glucose testing; ICD-10 code E11.22 Alcohol 2020-0 Yes [id number] Use 1 pad [facility] Swabs 4-03 PRN to ity of (ALCOHOL 00:00: prep skin [place] PREP PADS) 00 for Medical PadM insulin Branch injection or glucose testing; ICD-10 code E11.22 Alcohol 2020-0 Yes [id number] Use 1 pad [facility] Swabs 4-03 PRN to ity of (ALCOHOL 00:00: prep skin [place] PREP PADS) 00 for Medical PadM insulin Branch injection or glucose testing; ICD-10 code E11.22 Alcohol 2020-0 Yes [id number] Use 1 pad [facility] Swabs 4-03 PRN to ity of (ALCOHOL 00:00: prep skin [place] PREP PADS) 00 for Medical PadM insulin Branch injection or glucose testing; ICD-10 code E11.22 Alcohol 2020-0 Yes [id number] Use 1 pad [facility] Swabs 4-03 PRN to ity of (ALCOHOL 00:00: prep skin [place] PREP PADS) 00 for Medical PadM insulin Branch injection or glucose testing; ICD-10 code E11.22 Alcohol 2020-0 Yes [id number] Use 1 pad [facility] Swabs 4-03 PRN to ity of (ALCOHOL 00:00: prep skin [place] PREP PADS) 00 for Medical PadM insulin Branch injection or glucose testing; ICD-10 code E11.22 Alcohol 2020-0 Yes [id number] Use 1 pad [facility] Swabs 4-03 PRN to ity of (ALCOHOL 00:00: prep skin [place] PREP PADS) 00 for Medical PadM insulin Branch injection or glucose testing; ICD-10 code E11.22 Alcohol 2020-0 Yes [id number] Use 1 pad [facility] Swabs 4-03 PRN to ity of (ALCOHOL 00:00: prep skin [place] PREP PADS) 00 for Medical PadM insulin Branch injection or glucose testing; ICD-10 code E11.22 Alcohol 2020-0 Yes [id number] Use 1 pad [facility] Swabs 4-03 PRN to ity of (ALCOHOL 00:00: prep skin [place] PREP PADS) 00 for Medical PadM insulin Branch injection or glucose testing; ICD-10 code E11.22 Alcohol 2020-0 Yes [id number] Use 1 pad [facility] Swabs 4-03 PRN to ity of (ALCOHOL 00:00: prep skin [place] PREP PADS) 00 for Medical PadM insulin Branch injection or glucose testing; ICD-10 code E11.22 Alcohol 2020-0 Yes [id number] Use 1 pad [facility] Swabs 4-03 PRN to ity of (ALCOHOL 00:00: prep skin [place] PREP PADS) 00 for Medical PadM insulin Branch injection or glucose testing; ICD-10 code E11.22 Alcohol 2020-0 Yes [id number] Use 1 pad [facility] Swabs 4-03 PRN to ity of (ALCOHOL 00:00: prep skin [place] PREP PADS) 00 for Medical PadM insulin Branch injection or glucose testing; ICD-10 code E11.22 traMADol 50 2019-0 Yes [id number] 50mg Take 1 [facility] mg tablet 9-26 tablet by ity o f 00:00: mouth [place] 00 every 6 Medical (six) Branch hours as needed for Pain (scale 7-10). traMADol 50 2019-0 Yes [id number] 50mg Take 1 [facility] mg tablet 9-26 tablet by ity o f 00:00: mouth [place] 00 every 6 Medical (six) Branch hours as needed for Pain (scale 7-10). traMADol 50 2019-0 Yes [id number] 50mg Take 1 [facility] mg tablet 9-26 tablet by ity o f 00:00: mouth [place] 00 every 6 Medical (six) Branch hours as needed for Pain (scale 7-10). traMADol 50 2019-0 Yes [id number] 50mg Take 1 [facility] mg tablet 9-26 tablet by ity o f 00:00: mouth [place] 00 every 6 Medical (six) Branch hours as needed for Pain (scale 7-10). traMADol 50 2019-0 Yes [id number] 50mg Take 1 [facility] mg tablet 9-26 tablet by ity o f 00:00: mouth [place] 00 every 6 Medical (six) Branch hours as needed for Pain (scale 7-10). traMADol 50 2019-0 Yes [id number] 50mg Take 1 [facility] mg tablet 9-26 tablet by ity o f 00:00: mouth [place] 00 every 6 Medical (six) Branch hours as needed for Pain (scale 7-10). traMADol 50 2019-0 Yes [id number] 50mg Take 1 [facility] mg tablet 9-26 tablet by ity o f 00:00: mouth [place] 00 every 6 Medical (six) Branch hours as needed for Pain (scale 7-10). traMADol 50 2019-0 Yes [id number] 50mg Take 1 [facility] mg tablet 9-26 tablet by ity o f 00:00: mouth [place] 00 every 6 Medical (six) Branch hours as needed for Pain (scale 7-10). traMADol 50 2019-0 Yes [id number] 50mg Take 1 [facility] mg tablet 9-26 tablet by ity o f 00:00: mouth [place] 00 every 6 Medical (six) Branch hours as needed for Pain (scale 7-10). traMADol 50 2019-0 Yes [id number] 50mg Take 1 [facility] mg tablet 9-26 tablet by ity o f 00:00: mouth [place] 00 every 6 Medical (six) Branch hours as needed for Pain (scale 7-10). traMADol 50 2019-0 Yes [id number] 50mg Take 1 [facility] mg tablet 9-26 tablet by ity o f 00:00: mouth [place] 00 every 6 Medical (six) Branch hours as needed for Pain (scale 7-10). traMADol 50 2019-0 Yes [id number] 50mg Take 1 [facility] mg tablet 9-26 tablet by ity o f 00:00: mouth [place] 00 every 6 Medical (six) Branch hours as needed for Pain (scale 7-10). traMADol 50 2019-0 Yes [id number] 50mg Take 1 [facility] mg tablet 9-26 tablet by ity o f 00:00: mouth [place] 00 every 6 Medical (six) Branch hours as needed for Pain (scale 7-10). traMADol 50 2019-0 Yes [id number] 50mg Take 1 [facility] mg tablet 9-26 tablet by ity o f 00:00: mouth [place] 00 every 6 Medical (six) Branch hours as needed for Pain (scale 7-10). traMADol 50 2019-0 Yes [id number] 50mg Take 1 [facility] tablet 9-26 tablet by ity o f 00:00: mouth [place] 00 every 6 Medical (six) Branch hours as needed for Pain (scale 7-10). traMADol 50 2019-0 Yes [id number] 50mg Take 1 [facility] mg tablet 9-26 tablet by ity o f 00:00: mouth [place] 00 every 6 Medical (six) Branch hours as needed for Pain (scale 7-10). traMADol 50 2019-0 Yes [id number] 50mg Take 1 [facility] tablet 9-26 tablet by ity o f 00:00: mouth [place] 00 every 6 Medical (six) Branch hours as needed for Pain (scale 7-10). traMADol 50 2019-0 Yes [id number] 50mg Take 1 [facility] tablet 9-26 tablet by ity o f 00:00: mouth [place] 00 every 6 Medical (six) Branch hours as needed for Pain (scale 7-10). traMADol 50 2019-0 Yes [id number] 50mg Take 1 [facility] mg tablet 9-26 tablet by ity o f 00:00: mouth [place] 00 every 6 Medical (six) Branch hours as needed for Pain (scale 7-10). traMADol 50 2019-0 Yes [id number] 50mg Take 1 [facility] tablet 9-26 tablet by ity o f 00:00: mouth [place] 00 every 6 Medical (six) Branch hours as needed for Pain (scale 7-10). traMADol 50 2019-0 Yes [id number] 50mg Take 1 [facility] mg tablet 9-26 tablet by ity o f 00:00: mouth [place] 00 every 6 Medical (six) Branch hours as needed for Pain (scale 7-10). traMADol 50 2019-0 Yes [id number] 50mg Take 1 [facility] tablet 9-26 tablet by ity o f 00:00: mouth [place] 00 every 6 Medical (six) Branch hours as needed for Pain (scale 7-10). traMADol 50 2019-0 Yes [id number] 50mg Take 1 [facility] tablet 9-26 tablet by ity o f 00:00: mouth [place] 00 every 6 Medical (six) Branch hours as needed for Pain (scale 7-10). traMADol 50 2019-0 Yes [id number] 50mg Take 1 [facility] tablet 9-26 tablet by ity o f 00:00: mouth [place] 00 every 6 Medical (six) Branch hours as needed for Pain (scale 7-10). traMADol 50 2019-0 Yes [id number] 50mg Take 1 [facility] tablet 9-26 tablet by ity o f 00:00: mouth [place] 00 every 6 Medical (six) Branch hours as needed for Pain (scale 7-10). traMADol 50 2019-0 Yes [id number] 50mg Take 1 [facility] tablet 9-26 tablet by ity o f 00:00: mouth [place] 00 every 6 Medical (six) Branch hours as needed for Pain (scale 7-10). traMADol 50 2019-0 Yes [id number] 50mg Take 1 [facility] tablet 9-26 tablet by ity o f 00:00: mouth [place] 00 every 6 Medical (six) Branch hours as needed for Pain (scale 7-10). traMADol 50 2019-0 Yes [id number] 50mg Take 1 [facility] mg tablet 9-26 tablet by ity o f 00:00: mouth [place] 00 every 6 Medical (six) Branch hours as needed for Pain (scale 7-10). traMADol 50 2019-0 Yes [id number] 50mg Take 1 [facility] tablet 9-26 tablet by ity o f 00:00: mouth [place] 00 every 6 Medical (six) Branch hours as needed for Pain (scale 7-10). traMADol 50 2019-0 Yes [id number] 50mg Take 1 [facility] tablet 9-26 tablet by ity o f 00:00: mouth [place] 00 every 6 Medical (six) Branch hours as needed for Pain (scale 7-10). traMADol 50 2019-0 Yes [id number] 50mg Take 1 [facility] tablet 9-26 tablet by ity o f 00:00: mouth [place] 00 every 6 Medical (six) Branch hours as needed for Pain (scale 7-10). traMADol 50 2019-0 Yes [id number] 50mg Take 1 [facility] tablet 9-26 tablet by ity o f 00:00: mouth [place] 00 every 6 Medical (six) Branch hours as needed for Pain (scale 7-10). traMADol 50 2019-0 Yes [id number] 50mg Take 1 [facility] tablet 9-26 tablet by ity o f 00:00: mouth [place] 00 every 6 Medical (six) Branch hours as needed for Pain (scale 7-10). traMADol 50 2019-0 Yes [id number] 50mg Take 1 [facility] tablet 9-26 tablet by ity o f 00:00: mouth [place] 00 every 6 Medical (six) Branch hours as needed for Pain (scale 7-10). traMADol 50 2019-0 Yes [id number] 50mg Take 1 [facility] tablet 9-26 tablet by ity o f 00:00: mouth [place] 00 every 6 Medical (six) Branch hours as needed for Pain (scale 7-10). traMADol 50 2019-0 Yes [id number] 50mg Take 1 [facility] mg tablet 9-26 tablet by ity o f 00:00: mouth [place] 00 every 6 Medical (six) Branch hours as needed for Pain (scale 7-10). traMADol 50 2019-0 Yes [id number] 50mg Take 1 [facility] mg tablet 9-26 tablet by ity o f 00:00: mouth [place] 00 every 6 Medical (six) Branch hours as needed for Pain (scale 7-10). traMADol 50 2019-0 Yes [id number] 50mg Take 1 [facility] mg tablet 9-26 tablet by ity o f 00:00: mouth [place] 00 every 6 Medical (six) Branch hours as needed for Pain (scale 7-10). traMADol 50 2019-0 Yes [id number] 50mg Take 1 [facility] mg tablet 9-26 tablet by ity o f 00:00: mouth [place] 00 every 6 Medical (six) Branch hours as needed for Pain (scale 7-10). traMADol 50 2019-0 Yes [id number] 50mg Take 1 [facility] mg tablet 9-26 tablet by ity o f 00:00: mouth [place] 00 every 6 Medical (six) Branch hours as needed for Pain (scale 7-10). traMADol 50 2019-0 Yes [id number] 50mg Take 1 [facility] mg tablet 9-26 tablet by ity o f 00:00: mouth [place] 00 every 6 Medical (six) Branch hours as needed for Pain (scale 7-10). traMADol 50 2019-0 Yes [id number] 50mg Take 1 [facility] mg tablet 9-26 tablet by ity o f 00:00: mouth [place] 00 every 6 Medical (six) Branch hours as needed for Pain (scale 7-10). traMADol 50 2019-0 Yes [id number] 50mg Take 1 [facility] mg tablet 9-26 tablet by ity o f 00:00: mouth [place] 00 every 6 Medical (six) Branch hours as needed for Pain (scale 7-10). traMADol 50 2019-0 Yes [id number] 50mg Take 1 [facility] mg tablet 9-26 tablet by ity o f 00:00: mouth [place] 00 every 6 Medical (six) Branch hours as needed for Pain (scale 7-10). traMADol 50 2019-0 Yes [id number] 50mg Take 1 [facility] mg tablet 9-26 tablet by ity o f 00:00: mouth [place] 00 every 6 Medical (six) Branch hours as needed for Pain (scale 7-10). traMADol 50 2019-0 Yes [id number] 50mg Take 1 [facility] mg tablet 9-26 tablet by ity o f 00:00: mouth [place] 00 every 6 Medical (six) Branch hours as needed for Pain (scale 7-10). traMADol 50 2018- Yes [id number] 50mg Take 1 [facility] mg tablet 9-26 tablet by ity o f 00:00: mouth [place] 00 every 6 Medical (six) Branch hours as needed for Pain (scale 7-10). traMADol 50 Yes [id number] 50mg Take 1 [facility] mg tablet 9-26 tablet by ity o f 00:00: mouth [place] 00 every 6 Medical (six) Branch hours as needed for Pain (scale 7-10). traMADol 50 2018-2022- No [id number] 50mg Take 1 [facility] mg tablet -11 07-04 tablet by ity of 00:00: 00:00 mouth [place] 00 :00 every 6 Medical (six) Branch [...] usly every Center morning before breakfast. insulin 2017-[address] [facility] (HUMULIN 16:47: usly 3 Medical R,NOVOLIN 17 (three) Center R) 100 times unit/mL daily injection before meals Use as directed, sliding scale. . cholecalcif 2017-0 Yes 5000U QD Take 5,[address] [facility] [...] nightly. Med ical 17 Center aspirin 81 2017-0 Yes 81mg QD Take [address] MG chewable 5-16 by mouth [facility] tablet 16:47: daily. Medical 17 Center calcium 0 Yes 1334mg Take 1,[address] acetate 5-16 mg by [facility] (PHOSLO) 16:47: mouth 3 Medica l 667 mg 17 (three) Center capsule times daily with meals . rosuvastati 0 Yes 10mg QD Take [address] [facility] n (CRESTOR) 5-16 by mouth [facility] 10 MG 16:47: daily. Medical tablet 17 Center insulin NPH 2017-0 Yes 10U Inject [address] 100 unit/mL 5-16 Units [facility] (3 mL) InPn 16:47: subcutaneo Medical 17 usly every Center morning before breakfast. insulin 2017-[address] [facility] regular 5-[facility] (HUMULIN 16:47: usly 3 Medical R,NOVOLIN 17 (three) Center R) 100 times unit/mL daily injection before meals Use as directed, sliding scale. . cholecalcif 2018-0 Yes 5000U QD Take 5,[address] [...] Pain. Max Daily Amount: 4 tablets metoprolol 2018-0 Yes 25mg Q.5D Take 1 [facility] [...] Pain. Max Daily Amount: 4 tablets metoprolol 2018-0 Yes 25mg Q.5D Take 1 [facility] [...] Pain. Max Daily Amount: 4 tablets metoprolol 2018-0 Yes 25mg Q.5D Take 1 [facility] (TOPROL-XL) 5-16 tablet (25 Sushma kes 25 MG 24 hr 00:00: mg total) M edical tablet 00 by mouth 2 Center (two) times daily. Immunizations Ordered Filled Immunization Date Status Comments [facility] e Immunization Name Name Pneumococcal 2021-07-09 [...] Unive rsity of MODERNA 12+ YRS 00:00:00 [facility] ical VACCINE Branch SARS-COV-2 COVID-19 2020-08-16 Completed Unive rsity of MODERNA 12+ YRS 00:00:00 [facility] ical VACCINE Branch SARS-COV-2 COVID-19 2020-08-16 Completed Unive rsity of MODERNA 12+ YRS 00:00:00 [facility] VACCINE Branch SARS-COV-2 COVID-19 2020-08-16 Completed Unive rsity of MODERNA 12+ YRS 00:00:00 [facility] VACCINE Branch Influenza High Dose 2020-03-13 Completed Unive rsity of 00:00:00 [facility] Influenza High Dose 2020-03-13 Completed Unive rsity of 00:00:00 [facility] Influenza High Dose 2020-03-13 Completed Unive rsity of 00:00:00 [facility] Influenza High Dose 2020-03-13 Completed Unive rsity of 00:00:00 [facility] Influenza High Dose 2020-03-13 Completed Unive rsity of 00:00:00 [facility] Influenza High Dose 2020-03-13 Completed Unive rsity of 00:00:00 [facility] Influenza High Dose 2020-03-13 Completed Unive rsity of 00:00:00 [facility] Influenza High Dose 2020-03-13 Completed Unive rsity of 00:00:00 [facility] Influenza High Dose 2020-03-13 Completed Unive rsity of 00:00:00 [facility] Influenza High Dose 2020-03-13 Completed Unive rsity of 00:00:00 [facility] Influenza High Dose 2020-03-13 Completed Unive rsity of 00:00:00 [facility] Influenza High Dose 2020-03-13 Completed Unive rsity of 00:00:00 [facility] Influenza High Dose 2020-03-13 Completed Unive rsity of 00:00:00 [facility] Influenza High Dose 2020-03-13 Completed Unive rsity of 00:00:00 [facility] Influenza High Dose 2020-03-13 Completed Unive rsity of 00:00:00 [facility] Influenza High Dose 2020-03-13 Completed Unive rsity of 00:00:00 [facility] Influenza High Dose 2020-03-13 Completed Unive rsity of 00:00:00 [facility] Influenza High Dose 2020-03-13 Completed Unive rsity of 00:00:00 [facility] Influenza High Dose 2020-03-13 Completed Unive rsity of 00:00:00 [facility] Influenza High Dose 2020-03-13 Completed Unive rsity of 00:00:00 [facility] Influenza High Dose 2020-03-13 Completed Unive rsity of 00:00:00 [facility] Influenza High Dose 2020-03-13 Completed Unive rsity of 00:00:00 [facility] Influenza High Dose 2020-03-13 Completed Unive rsity of 00:00:00 [facility] Influenza High Dose 2020-03-13 Completed Unive rsity of 00:00:00 [facility] Influenza High Dose 2020-03-13 Completed Unive rsity of 00:00:00 [facility] Influenza High Dose 2020-03-13 Completed Unive rsity of 00:00:00 [facility] Influenza High Dose 2020-03-13 Completed Unive rsity of 00:00:00 [facility] Influenza High Dose 2020-03-13 Completed Unive rsity of 00:00:00 [facility] Influenza High Dose 2020-03-13 Completed Unive rsity of 00:00:00 [facility] Influenza High Dose 2020-03-13 Completed Unive rsity of 00:00:00 [facility] Influenza High Dose 2020-03-13 Completed Unive rsity of 00:00:00 [facility] Influenza High Dose 2020-03-13 Completed Unive rsity of 00:00:00 [facility] Influenza High Dose 2020-03-13 Completed Unive rsity of 00:00:00 [facility] Influenza High Dose 2020-03-13 Completed Unive rsity of 00:00:00 [facility] Influenza High Dose 2020-03-13 Completed Unive rsity of 00:00:00 [facility] Influenza High Dose 2020-03-13 Completed Unive rsity of 00:00:00 [facility] Influenza High Dose 2020-03-13 Completed Unive rsity of 00:00:00 [facility] Influenza High Dose 2020-03-13 Completed Unive rsity of 00:00:00 [facility] Influenza High Dose 2020-03-13 Completed Unive rsity of 00:00:00 [facility] Influenza High Dose 2020-03-13 Completed Unive rsity of 00:00:00 [facility] Influenza High Dose 2020-03-13 Completed Unive rsity of 00:00:00 [facility] Influenza High Dose 2020-03-13 Completed Unive rsity of 00:00:00 [facility] Influenza High Dose 2020-03-13 Completed Unive rsity of 00:00:00 [facility] Influenza High Dose 2020-03-13 Completed Unive rsity of 00:00:00 [facility] Influenza High Dose 2020-03-13 Completed Unive rsity of 00:00:00 [facility] Influenza High Dose 2020-03-13 Completed Unive rsity of 00:00:00 [facility] Influenza High Dose 2020-03-13 Completed Unive rsity of 00:00:00 [facility] Influenza High Dose 2020-03-13 Completed Unive rsity of 00:00:00 [facility] Influenza High Dose 2020-03-13 Completed Unive rsity of 00:00:00 [facility] Influenza High Dose 2020-03-13 Completed Unive rsity of 00:00:00 [facility] Influenza High Dose 2020-03-13 Completed Unive rsity of 00:00:00 [facility] Influenza High Dose 2020-03-13 Completed Unive rsity of 00:00:00 [facility] Influenza High Dose 2020-03-13 Completed Unive rsity of 00:00:00 [facility] Influenza High Dose 2020-03-13 Completed Unive rsity of 00:00:00 [facility] Influenza High Dose 2020-03-13 Completed Unive rsity of 00:00:00 [facility] Influenza High Dose 2019-03-16 Completed Unive rsity of 00:00:00 [facility] Influenza High Dose 2019-03-16 Completed Unive rsity of 00:00:00 [facility] Influenza High Dose 2019-03-16 Completed Unive rsity of 00:00:00 [facility] Influenza High Dose 2019-03-16 Completed Unive rsity of 00:00:00 [facility] Influenza High Dose 2019-03-16 Completed Unive rsity of 00:00:00 [facility] Influenza High Dose 2019-03-16 Completed Unive rsity of 00:00:00 [facility] Influenza High Dose 2019-03-16 Completed Unive rsity of 00:00:00 [facility] Influenza High Dose 2019-03-16 Completed Unive rsity of 00:00:00 [facility] Influenza High Dose 2019-03-16 Completed Unive rsity of 00:00:00 [facility] Influenza High Dose 2019-03-16 Completed Unive rsity of 00:00:00 [facility] Influenza High Dose 2019-03-16 Completed Unive rsity of 00:00:00 [facility] Influenza High Dose 2019-03-16 Completed Unive rsity of 00:00:00 [facility] Influenza High Dose 2019-03-16 Completed Unive rsity of 00:00:00 [facility] Influenza High Dose 2019-03-16 Completed Unive rsity of 00:00:00 [facility] Influenza High Dose 2019-03-16 Completed Unive rsity of 00:00:00 [facility] Influenza High Dose 2019-03-16 Completed Unive rsity of 00:00:00 [facility] Influenza High Dose 2019-03-16 Completed Unive rsity of 00:00:00 [facility] Influenza High Dose 2019-03-16 Completed Unive rsity of 00:00:00 [facility] Influenza High Dose 2019-03-16 Completed Unive rsity of 00:00:00 [facility] Influenza High Dose 2019-03-16 Completed Unive rsity of 00:00:00 [facility] Influenza High Dose 2019-03-16 Completed Unive rsity of 00:00:00 [facility] Influenza High Dose 2019-03-16 Completed Unive rsity of 00:00:00 [facility] Influenza High Dose 2019-03-16 Completed Unive rsity of 00:00:00 [facility] Influenza High Dose 2019-03-16 Completed Unive rsity of 00:00:00 [facility] Influenza High Dose 2019-03-16 Completed Unive rsity of 00:00:00 [facility] Influenza High Dose 2019-03-16 Completed Unive rsity of 00:00:00 [facility] Influenza High Dose 2019-03-16 Completed Unive rsity of 00:00:00 [facility] Influenza High Dose 2019-03-16 Completed Unive rsity of 00:00:00 [facility] Influenza High Dose 2019-03-16 Completed Unive rsity of 00:00:00 [facility] Influenza High Dose 2019-03-16 Completed Unive rsity of 00:00:00 [facility] Influenza High Dose 2019-03-16 Completed Unive rsity of 00:00:00 [facility] Influenza High Dose 2019-03-16 Completed Unive rsity of 00:00:00 [facility] Influenza High Dose 2019-03-16 Completed Unive rsity of 00:00:00 [facility] Influenza High Dose 2019-03-16 Completed Unive rsity of 00:00:00 [facility] Influenza High Dose 2019-03-16 Completed Unive rsity of 00:00:00 [facility] Influenza High Dose 2019-03-16 Completed Unive rsity of 00:00:00 [facility] Influenza High Dose 2019-03-16 Completed Unive rsity of 00:00:00 [facility] Influenza High Dose 2019-03-16 Completed Unive rsity of 00:00:00 [facility] Influenza High Dose 2019-03-16 Completed Unive rsity of 00:00:00 [facility] Influenza High Dose 2019-03-16 Completed Unive rsity of 00:00:00 [facility] Influenza High Dose 2019-03-16 Completed Unive rsity of 00:00:00 [facility] Influenza High Dose 2019-03-16 Completed Unive rsity of 00:00:00 [facility] Influenza High Dose 2019-03-16 Completed Unive rsity of 00:00:00 [facility] Influenza High Dose 2019-03-16 Completed Unive rsity of 00:00:00 [facility] Influenza High Dose 2019-03-16 Completed Unive rsity of 00:00:00 [facility] Influenza High Dose 2019-03-16 Completed Unive rsity of 00:00:00 [facility] Influenza High Dose 2019-03-16 Completed Unive rsity of 00:00:00 [facility] Influenza High Dose 2019-03-16 Completed Unive rsity of 00:00:00 [facility] Influenza High Dose 2019-03-16 Completed Unive rsity of 00:00:00 [facility] Influenza High Dose 2019-03-16 Completed Unive rsity of 00:00:00 [facility] Influenza High Dose 2019-03-16 Completed Unive rsity of 00:00:00 [facility] Influenza High Dose 2019-03-16 Completed Unive rsity of 00:00:00 [facility] Influenza High Dose 2019-03-16 Completed Unive rsity of 00:00:00 [facility] Influenza High Dose 2019-03-16 Completed Unive rsity of 00:00:00 [facility] Influenza High Dose 2019-03-16 Completed Unive rsity of 00:00:00 [facility] Influenza Virus 2008-03-21 Completed Universit y of Vaccine 00:00:00 [facility] Pneumococcal 2008-03-21 Completed University o f Polysaccharide, 00:00:00 [place] [facility] PPSV23 (PNEUMOVAX) Branch Influenza Virus 2008-03-21 Completed Universit y of Vaccine 00:00:00 [facility] Pneumococcal 2008-03-21 Completed University o f Polysaccharide, 00:00:00 [place] [facility] PPSV23 (PNEUMOVAX) Branch Influenza Virus 2008-03-21 Completed Universit y of Vaccine 00:00:00 [facility] Pneumococcal 2008-03-21 Completed University o f Polysaccharide, 00:00:00 [place] [facility] PPSV23 (PNEUMOVAX) Branch Influenza Virus 2008-03-21 Completed Universit y of Vaccine 00:00:00 [facility] Pneumococcal 2008-03-21 Completed University o f Polysaccharide, 00:00:00 [place] [facility] PPSV23 (PNEUMOVAX) Branch Influenza Virus 2008-03-21 Completed Universit y of Vaccine 00:00:00 [facility] Pneumococcal 2008-03-21 Completed University o f Polysaccharide, 00:00:00 [place] [facility] PPSV23 (PNEUMOVAX) Branch Influenza Virus 2008-03-21 Completed Universit y of Vaccine 00:00:00 [facility] Pneumococcal 2008-03-21 Completed University o f Polysaccharide, 00:00:00 [place] [facility] PPSV23 (PNEUMOVAX) Branch Influenza Virus 2008-03-21 Completed Universit y of Vaccine 00:00:00 [facility] Pneumococcal 2008-03-21 Completed University o f Polysaccharide, 00:00:00 [place] [facility] PPSV23 (PNEUMOVAX) Branch Influenza Virus 2008-03-21 Completed Universit y of Vaccine 00:00:00 [facility] Pneumococcal 2008-03-21 Completed University o f Polysaccharide, 00:00:00 [place] [facility] PPSV23 (PNEUMOVAX) Branch Influenza Virus 2008-03-21 Completed Universit y of Vaccine 00:00:00 [facility] Pneumococcal 2008-03-21 Completed University o f Polysaccharide, 00:00:00 [place] [facility] PPSV23 (PNEUMOVAX) Branch Influenza Virus 2008-03-21 Completed Universit y of Vaccine 00:00:00 [facility] Pneumococcal 2008-03-21 Completed University o f Polysaccharide, 00:00:00 [place] [facility] PPSV23 (PNEUMOVAX) Branch Influenza Virus 2008-03-21 Completed Universit y of Vaccine 00:00:00 [facility] Pneumococcal 2008-03-21 Completed University o f Polysaccharide, 00:00:00 [place] [facility] PPSV23 (PNEUMOVAX) Branch Influenza Virus 2008-03-21 Completed Universit y of Vaccine 00:00:00 [facility] Pneumococcal 2008-03-21 Completed University o f Polysaccharide, 00:00:00 [place] [facility] PPSV23 (PNEUMOVAX) Branch Influenza Virus 2008-03-21 Completed Universit y of Vaccine 00:00:00 [facility] Pneumococcal 2008-03-21 Completed University o f Polysaccharide, 00:00:00 [place] [facility] PPSV23 (PNEUMOVAX) Branch Influenza Virus 2008-03-21 Completed Universit y of Vaccine 00:00:00 [facility] Pneumococcal 2008-03-21 Completed University o f Polysaccharide, 00:00:00 [place] [facility] PPSV23 (PNEUMOVAX) Branch Influenza Virus 2008-03-21 Completed Universit y of Vaccine 00:00:00 [facility] Pneumococcal 2008-03-21 Completed University o f Polysaccharide, 00:00:00 [place] [facility] PPSV23 (PNEUMOVAX) Branch Influenza Virus 2008-03-21 Completed Universit y of Vaccine 00:00:00 [facility] Pneumococcal 2008-03-21 Completed University o f Polysaccharide, 00:00:00 [place] [facility] PPSV23 (PNEUMOVAX) Branch Influenza Virus 2008-03-21 Completed Universit y of Vaccine 00:00:00 [facility] Pneumococcal 2008-03-21 Completed University o f Polysaccharide, 00:00:00 [place] [facility] PPSV23 (PNEUMOVAX) Branch Influenza Virus 2008-03-21 Completed Universit y of Vaccine 00:00:00 [facility] Pneumococcal 2008-03-21 Completed University o f Polysaccharide, 00:00:00 [place] [facility] PPSV23 (PNEUMOVAX) Branch Influenza Virus 2008-03-21 Completed Universit y of Vaccine 00:00:00 [facility] Pneumococcal 2008-03-21 Completed University o f Polysaccharide, 00:00:00 [place] [facility] PPSV23 (PNEUMOVAX) Branch Influenza Virus 2008-03-21 Completed Universit y of Vaccine 00:00:00 [facility] Pneumococcal 2008-03-21 Completed University o f Polysaccharide, 00:00:00 [place] [facility] PPSV23 (PNEUMOVAX) Branch Influenza Virus 2008-03-21 Completed Universit y of Vaccine 00:00:00 [facility] Pneumococcal 2008-03-21 Completed University o f Polysaccharide, 00:00:00 [place] [facility] PPSV23 (PNEUMOVAX) Branch Influenza Virus 2008-03-21 Completed Universit y of Vaccine 00:00:00 [facility] Pneumococcal 2008-03-21 Completed University o f Polysaccharide, 00:00:00 [place] [facility] PPSV23 (PNEUMOVAX) Branch Influenza Virus 2008-03-21 Completed Universit y of Vaccine 00:00:00 [facility] Pneumococcal 2008-03-21 Completed University o f Polysaccharide, 00:00:00 [place] [facility] PPSV23 (PNEUMOVAX) Branch Influenza Virus 2008-03-21 Completed Universit y of Vaccine 00:00:00 [facility] Pneumococcal 2008-03-21 Completed University o f Polysaccharide, 00:00:00 [place] [facility] PPSV23 (PNEUMOVAX) Branch Influenza Virus 2008-03-21 Completed Universit y of Vaccine 00:00:00 [facility] Pneumococcal 2008-03-21 Completed University o f Polysaccharide, 00:00:00 [place] [facility] PPSV23 (PNEUMOVAX) Branch Influenza Virus 2008-03-21 Completed Universit y of Vaccine 00:00:00 [facility] Pneumococcal 2008-03-21 Completed University o f Polysaccharide, 00:00:00 [place] [facility] PPSV23 (PNEUMOVAX) Branch Influenza Virus 2008-03-21 Completed Universit y of Vaccine 00:00:00 [facility] Pneumococcal 2008-03-21 Completed University o f Polysaccharide, 00:00:00 [place] [facility] PPSV23 (PNEUMOVAX) Branch Influenza Virus 2008-03-21 Completed Universit y of Vaccine 00:00:00 [facility] Pneumococcal 2008-03-21 Completed University o f Polysaccharide, 00:00:00 [place] [facility] PPSV23 (PNEUMOVAX) Branch Influenza Virus 2008-03-21 Completed Universit y of Vaccine 00:00:00 [facility] Pneumococcal 2008-03-21 Completed University o f Polysaccharide, 00:00:00 [place] [facility] PPSV23 (PNEUMOVAX) Branch Influenza Virus 2008-03-21 Completed Universit y of Vaccine 00:00:00 [facility] Pneumococcal 2008-03-21 Completed University o f Polysaccharide, 00:00:00 [place] [facility] PPSV23 (PNEUMOVAX) Branch Influenza Virus 2008-03-21 Completed Universit y of Vaccine 00:00:00 [facility] Pneumococcal 2008-03-21 Completed University o f Polysaccharide, 00:00:00 [place] [facility] PPSV23 (PNEUMOVAX) Branch Influenza Virus 2008-03-21 Completed Universit y of Vaccine 00:00:00 [facility] Pneumococcal 2008-03-21 Completed University o f Polysaccharide, 00:00:00 [place] [facility] PPSV23 (PNEUMOVAX) Branch Influenza Virus 2008-03-21 Completed Universit y of Vaccine 00:00:00 [facility] Pneumococcal 2008-03-21 Completed University o f Polysaccharide, 00:00:00 [place] [facility] PPSV23 (PNEUMOVAX) Branch Influenza Virus 2008-03-21 Completed Universit y of Vaccine 00:00:00 [facility] Pneumococcal 2008-03-21 Completed University o f Polysaccharide, 00:00:00 [place] [facility] PPSV23 (PNEUMOVAX) Branch Influenza Virus 2008-03-21 Completed Universit y of Vaccine 00:00:00 [facility] Pneumococcal 2008-03-21 Completed University o f Polysaccharide, 00:00:00 [place] [facility] PPSV23 (PNEUMOVAX) Branch Influenza Virus 2008-03-21 Completed Universit y of Vaccine 00:00:00 [facility] Pneumococcal 2008-03-21 Completed University o f Polysaccharide, 00:00:00 [place] [facility] PPSV23 (PNEUMOVAX) Branch Influenza Virus 2008-03-21 Completed Universit y of Vaccine 00:00:00 [facility] Pneumococcal 2008-03-21 Completed University o f Polysaccharide, 00:00:00 [place] [facility] PPSV23 (PNEUMOVAX) Branch Influenza Virus 2008-03-21 Completed Universit y of Vaccine 00:00:00 [facility] Pneumococcal 2008-03-21 Completed University o f Polysaccharide, 00:00:00 [place] [facility] PPSV23 (PNEUMOVAX) Branch Influenza Virus 2008-03-21 Completed Universit y of Vaccine 00:00:00 [facility] Pneumococcal 2008-03-21 Completed University o f Polysaccharide, 00:00:00 [place] [facility] PPSV23 (PNEUMOVAX) Branch Influenza Virus 2008-03-21 Completed Universit y of Vaccine 00:00:00 [facility] Pneumococcal 2008-03-21 Completed University o f Polysaccharide, 00:00:00 [place] [facility] PPSV23 (PNEUMOVAX) Branch Influenza Virus 2008-03-21 Completed Universit y of Vaccine 00:00:00 [facility] Pneumococcal 2008-03-21 Completed University o f Polysaccharide, 00:00:00 [place] [facility] PPSV23 (PNEUMOVAX) Branch Influenza Virus 2008-03-21 Completed Universit y of Vaccine 00:00:00 [facility] Pneumococcal 2008-03-21 Completed [facility] o f Polysaccharide, 00:00:00 [place] [facility] PPSV23 (PNEUMOVAX) Branch Influenza Virus 2008-03-21 Completed [facility]it y of Vaccine 00:00:00 [facility] Pneumococcal 2008-03-21 Completed [facility] o f Polysaccharide, 00:00:00 [place] [facility] PPSV23 (PNEUMOVAX) Branch Influenza Virus 2008-03-21 Completed [facility]it y of Vaccine 00:00:00 [facility] Pneumococcal 2008-03-21 Completed [facility] o f Polysaccharide, 00:00:00 [place] [facility] PPSV23 (PNEUMOVAX) Branch Influenza Virus 2008-03-21 Completed [facility] y of Vaccine 00:00:00 [facility] Pneumococcal 2008-03-21 Completed University o f Polysaccharide, 00:00:00 [place] [facility] PPSV23 (PNEUMOVAX) Branch Influenza Virus 2008-03-21 Completed [facility]it y of Vaccine 00:00:00 [facility] Pneumococcal 2008-03-21 Completed [facility] o f Polysaccharide, 00:00:00 [place] [facility] PPSV23 (PNEUMOVAX) Branch Influenza Virus 2008-03-21 Completed [facility]it y of Vaccine 00:00:00 [facility] Pneumococcal 2008-03-21 Completed [facility] o f Polysaccharide, 00:00:00 [place] [facility] PPSV23 (PNEUMOVAX) Branch Influenza Virus 2008-03-21 Completed [facility]it y of Vaccine 00:00:00 [facility] Pneumococcal 2008-03-21 Completed [facility] o f Polysaccharide, 00:00:00 [place] [facility] PPSV23 (PNEUMOVAX) Branch Influenza Virus 2008-03-21 Completed [facility]it [facility] of Vaccine 00:00:00 [facility] Pneumococcal 2008-03-21 Completed [facility] o f Polysaccharide, 00:00:00 [place] [facility] PPSV23 (PNEUMOVAX) Branch Influenza Virus 2008-03-21 Completed Universit y of Vaccine 00:00:00 [facility] Pneumococcal 2008-03-21 Completed University o f Polysaccharide, 00:00:00 [place] [facility] PPSV23 (PNEUMOVAX) Branch Influenza Virus 2008-03-21 Completed Universit y of Vaccine 00:00:00 [facility] Pneumococcal 2008-03-21 Completed University o f Polysaccharide, 00:00:00 [place] [facility] PPSV23 (PNEUMOVAX) Branch Influenza Virus 2008-03-21 Completed Universit y of Vaccine 00:00:00 [facility] Pneumococcal 2008-03-21 Completed University o f Polysaccharide, 00:00:00 [place] [facility] PPSV23 (PNEUMOVAX) Branch Influenza Virus 2008-03-21 Completed Universit y of Vaccine 00:00:00 [facility] Pneumococcal 2008-03-21 Completed University o f Polysaccharide, 00:00:00 [place] [facility] PPSV23 (PNEUMOVAX) Branch Influenza Virus 2008-03-21 Completed Universit y of Vaccine 00:00:00 [facility] Pneumococcal 2008-03-21 Completed University o f Polysaccharide, 00:00:00 [place] [facility] PPSV23 (PNEUMOVAX) Branch Influenza Virus 2008-03-21 Completed Universit y of Vaccine 00:00:00 [facility] Pneumococcal 2008-03-21 Completed University o f Polysaccharide, 00:00:00 [place] [facility] PPSV23 (PNEUMOVAX) Branch Influenza Virus 2007-04-07 Completed Universit y of Vaccine 00:00:00 [facility] Influenza Virus 2007-04-07 Completed Universit y of Vaccine 00:00:00 [facility] Influenza Virus 2007-04-07 Completed Universit y of Vaccine 00:00:00 [facility] Influenza Virus 2007-04-07 Completed Universit y of Vaccine 00:00:00 [facility] Influenza Virus 2007-04-07 Completed Universit y of Vaccine 00:00:00 [facility] Influenza Virus 2007-04-07 Completed Universit y of Vaccine 00:00:00 [facility] Influenza Virus 2007-04-07 Completed Universit y of Vaccine 00:00:00 [facility] Influenza Virus 2007-04-07 Completed Universit y of Vaccine 00:00:00 [facility] Influenza Virus 2007-04-07 Completed Universit y of Vaccine 00:00:00 [facility] Influenza Virus 2007-04-07 Completed Universit y of Vaccine 00:00:00 [facility] Influenza Virus 2007-04-07 Completed Universit y of Vaccine 00:00:00 [facility] Influenza Virus 2007-04-07 Completed Universit y of Vaccine 00:00:00 [facility] Influenza Virus 2007-04-07 Completed Universit y of Vaccine 00:00:00 [facility] Influenza Virus 2007-04-07 Completed Universit y of Vaccine 00:00:00 [facility] Influenza Virus 2007-04-07 Completed Universit y of Vaccine 00:00:00 [facility] Influenza Virus 2007-04-07 Completed Universit y of Vaccine 00:00:00 [facility] Influenza Virus 2007-04-07 Completed Universit y of Vaccine 00:00:00 [facility] Influenza Virus 2007-04-07 Completed Universit y of Vaccine 00:00:00 [facility] Influenza Virus 2007-04-07 Completed Universit y of Vaccine 00:00:00 [facility] Influenza Virus 2007-04-07 Completed Universit y of Vaccine 00:00:00 [facility] Influenza Virus 2007-04-07 Completed Universit y of Vaccine 00:00:00 [facility] Influenza Virus 2007-04-07 Completed Universit y of Vaccine 00:00:00 [facility] Influenza Virus 2007-04-07 Completed Universit y of Vaccine 00:00:00 [facility] Influenza Virus 2007-04-07 Completed Universit y of Vaccine 00:00:00 [facility] Influenza Virus 2007-04-07 Completed Universit y of Vaccine 00:00:00 [facility] Influenza Virus 2007-04-07 Completed Universit y of Vaccine 00:00:00 [facility] Influenza Virus 2007-04-07 Completed Universit y of Vaccine 00:00:00 [facility] Influenza Virus 2007-04-07 Completed Universit y of Vaccine 00:00:00 [facility] Influenza Virus 2007-04-07 Completed Universit y of Vaccine 00:00:00 [facility] Influenza Virus 2007-04-07 Completed Universit y of Vaccine 00:00:00 [facility] Influenza Virus 2007-04-07 Completed Universit y of Vaccine 00:00:00 [facility] Influenza Virus 2007-04-07 Completed Universit y of Vaccine 00:00:00 [facility] Influenza Virus 2007-04-07 Completed Universit y of Vaccine 00:00:00 [facility] Influenza Virus 2007-04-07 Completed Universit y of Vaccine 00:00:00 [facility] Influenza Virus 2007-04-07 Completed Universit y of Vaccine 00:00:00 [facility] Influenza Virus 2007-04-07 Completed Universit y of Vaccine 00:00:00 [facility] Influenza Virus 2007-04-07 Completed Universit y of Vaccine 00:00:00 [facility] Influenza Virus 2007-04-07 Completed Universit y of Vaccine 00:00:00 [facility] Influenza Virus 2007-04-07 Completed Universit y of Vaccine 00:00:00 [facility] Influenza Virus 2007-04-07 Completed Universit y of Vaccine 00:00:00 [facility] Influenza Virus 2007-04-07 Completed Universit y of Vaccine 00:00:00 [facility] Influenza Virus 2007-04-07 Completed Universit y of Vaccine 00:00:00 [facility] Influenza Virus 2007-04-07 Completed Universit y of Vaccine 00:00:00 [facility] Influenza Virus 2007-04-07 Completed Universit y of Vaccine 00:00:00 [facility] Influenza Virus 2007-04-07 Completed Universit y of Vaccine 00:00:00 [facility] Influenza Virus 2007-04-07 Completed Universit y of Vaccine 00:00:00 [facility] Influenza Virus 2007-04-07 Completed Universit y of Vaccine 00:00:00 [facility] Influenza Virus 2007-04-07 Completed Universit y of Vaccine 00:00:00 [facility] Influenza Virus 2007-04-07 Completed Universit y of Vaccine 00:00:00 [facility] Influenza Virus 2007-04-07 Completed Universit y of Vaccine 00:00:00 [facility] Influenza Virus 2007-04-07 Completed Universit y of Vaccine 00:00:00 [facility] Influenza Virus 2007-04-07 Completed Universit y of Vaccine 00:00:00 [facility] Influenza Virus 2007-04-07 Completed Universit y of Vaccine 00:00:00 [facility] Influenza Virus 2007-04-07 Completed Universit y of Vaccine 00:00:00 [facility] Influenza Virus 2007-04-07 Completed Universit y of Vaccine 00:00:00 [facility] Vital Signs Vital Name Observation Time Observation Value Comments Source Systolic blood 2022-06-27 19:18:00 132 mm[Hg] Univer sity of pressure [facility] Diastolic blood 2022-06-27 19:18:00 56 mm[Hg] Unive rsity of pressure [facility] Heart rate 2022-06-27 19:18:00 63 /min [facility]i ty of [place] [facility] Body temperature 2022-06-27 19:18:00 36.72 Chasidy Univ ersity of [place] [facility] Body weight 2022-06-27 19:18:00 68.04 kg [facility] [place] [facility] BMI 2022-06-27 19:18:00 23.49 kg/m2 [facility] [place] [facility] Oxygen saturation in 2022-06-27 19:18:00 98 /min University of Arterial blood by [facility] Pulse oximetry Branch Systolic blood 2022-06-20 02:46:00 138 mm[Hg] Univer sity of pressure [facility] Diastolic blood 2022-06-20 02:46:00 60 mm[Hg] Unive rsity of pressure [facility] Heart rate 2022-06-20 02:46:00 61 /min [facility] Body temperature 2022-06-20 02:46:00 36.22 Chasidy Univ ers[facility] of [facility] Respiratory rate 2022-06-20 02:46:00 18 /min Univ ersity of [facility] Oxygen saturation in 2022-06-20 02:46:00 98 /min University of Arterial blood by [facility] Pulse oximetry Branch Body weight 2022-06-18 22:06:00 67.5 kg [facility] [place] [facility] BMI 2022-06-18 22:06:00 23.31 kg/m2 [facility] Systolic blood 2022-06-17 10:04:00 125 mm[Hg] Univer sity of pressure [facility] Diastolic blood 2022-06-17 10:04:00 53 mm[Hg] Unive rsity of pressure [facility] Heart rate 2022-06-17 10:04:00 65 /min [facility] [place] [facility] Body temperature 2022-06-17 10:04:00 37.28 Chasidy Univ ers[facility] Respiratory rate 2022-06-17 10:04:00 18 /min Univ ers[facility] Oxygen saturation in 2022-06-17 10:04:00 97 /min [facility] by [place] [facility] Pulse oximetry [facility] Body weight 2022-06-15 14:39:00 67.5 kg 68 kg [facility] [place] [facility] BMI 2022-06-15 14:39:00 23.31 kg/m2 [facility] [place] [facility] Systolic blood 2022-06-14 10:43:00 122 mm[Hg] Univer sity of pressure [facility] Diastolic blood 2022-06-14 10:43:00 58 mm[Hg] Unive rsity of pressure [facility] Heart rate 2022-06-14 10:43:00 64 /min [facility] Body temperature 2022-06-14 10:43:00 36.28 Chasidy Univ [facility] [place] [facility] Respiratory rate 2022-06-14 10:43:00 18 /min Univ ersity [facility] Oxygen saturation in 2022-06-14 10:43:00 100 /min [facility] blood by [place] [facility] Pulse oximetry [facility] Body weight 2022-06-13 21:23:00 69 kg [facility] [place] [facility] BMI 2022-06-13 21:23:00 23.31 kg/m2 [facility] [place] [facility] Systolic blood 2022-05-27 21:17:00 119 mm[Hg] Univer sity of pressure [facility] Diastolic blood 2022-05-27 21:17:00 67 mm[Hg] Unive rsity of pressure [facility] Heart rate 2022-05-27 21:17:00 61 /min [facility] [place] [facility] Body height 2022-05-27 21:17:00 170.2 cm [facility] Body weight 2022-05-27 21:17:00 68.992 kg [facility] [place] [facility] BMI 2022-05-27 21:17:00 23.82 kg/m2 [facility] [place] [facility] Oxygen saturation in 2022-05-27 21:17:00 97 /min [facility] blood by [place] [facility] Pulse oximetry [facility] Systolic blood 2022-05-23 20:31:00 128 mm[Hg] Univer sity of pressure [facility] Diastolic blood 2022-05-23 20:31:00 65 mm[Hg] Unive rsity of pressure [facility] Heart rate 2022-05-23 20:31:00 60 /min [facility] [place] [facility] Body height 2022-05-23 20:31:00 170.2 cm [facility] [place] [facility] Body weight 2022-05-23 20:31:00 65.772 kg [facility] [place] [facility] BMI 2022-05-23 20:31:00 22.71 kg/m2 [facility] Oxygen saturation in 2022-05-23 20:31:00 98 /min University of Arterial blood by [facility] Pulse oximetry Branch Systolic blood 2022-05-04 02:34:00 137 mm[Hg] Univer sity of pressure [facility] Diastolic blood 2022-05-04 02:34:00 57 mm[Hg] Unive rsity of pressure [facility] Heart rate 2022-05-04 02:34:00 64 /min [facility] Body temperature 2022-05-04 02:34:00 36.33 Chasidy Univ [facility] Respiratory rate 2022-05-04 02:34:00 18 /min Univ ers[facility] Oxygen saturation in 2022-05-04 02:34:00 97 /min University of Arterial blood by [facility] Pulse oximetry Branch Body weight 2022-05-03 19:43:00 66 kg [facility] [place] [facility] BMI 2022-05-03 19:43:00 22.79 kg/m2 [facility] Body height 2022-04-04 23:05:00 170.2 cm [facility] [place] [facility] Systolic blood 2022-04-17 13:15:00 146 mm[Hg] Univer sity of pressure [facility] Diastolic blood 2022-04-17 13:15:00 65 mm[Hg] Unive rsity of pressure [facility] Heart rate 2022-04-17 13:15:00 63 /min [facility] Body temperature 2022-04-17 13:15:00 36.72 Chasidy Univ ers[facility] [place] [facility] Respiratory rate 2022-04-17 13:15:00 20 /min Univ ersity [facility] [place] [facility] Oxygen saturation in 2022-04-17 13:15:00 99 /min University of Arterial blood by [facility] Pulse oximetry Branch Body weight 2022-04-17 11:21:00 71.714 kg [facility] [place] [facility] BMI 2022-04-17 11:21:00 24.17 kg/m2 [facility] [place] [facility] Body height 2022-04-04 23:05:00 170.2 cm [facility] [place] [facility] Systolic blood 2022-04-10 16:45:00 151 mm[Hg] Univer sity of pressure [facility] Diastolic blood 2022-04-10 16:45:00 56 mm[Hg] Unive rsity of pressure [facility] Heart rate 2022-04-10 16:45:00 58 /min [facility] Body temperature 2022-04-10 16:45:00 36.39 Chasidy Univ ers[facility] [place] [facility] Respiratory rate 2022-04-10 16:45:00 18 /min Univ ers[facility] [place] [facility] Body weight 2022-04-10 16:45:00 69.5 kg [facility] [place] [facility] BMI 2022-04-10 16:45:00 25.90 kg/m2 [facility] Oxygen saturation in 2022-04-10 12:51:00 99 /min University of Arterial blood by [facility] Pulse oximetry Branch Body height 2022-04-04 23:05:00 170.2 cm [facility] Systolic blood 2022-04-08 16:15:00 157 mm[Hg] Univer sity of pressure [facility] Diastolic blood 2022-04-08 16:15:00 72 mm[Hg] Unive rsity of pressure [facility] Heart rate 2022-04-08 16:15:00 53 /min [facility] [place] [facility] Respiratory rate 2022-04-08 15:40:00 15 /min Univ ersity [facility] [place] [facility] Oxygen saturation in 2022-04-08 15:40:00 99 /min University of Arterial blood by [facility] Pulse oximetry Branch Body temperature 2022-04-08 15:21:00 36 Chasidy [facility] Body weight 2022-04-06 10:00:00 70.398 kg [facility] [place] [facility] BMI 2022-04-06 10:00:00 23.82 kg/m2 [facility] Body height 2022-04-04 23:05:00 170.2 cm [facility] [place] [facility] Systolic blood 2022-03-30 01:00:00 123 mm[Hg] Univer sity of pressure [facility] Diastolic blood 2022-03-30 01:00:00 65 mm[Hg] Unive rsity of pressure [facility] Heart rate 2022-03-30 01:00:00 98 /min [facility] [place] [facility] Respiratory rate 2022-03-30 01:00:00 19 /min Univ ersity [facility] [place] [facility] Oxygen saturation in 2022-03-30 01:00:00 98 /min University of Arterial blood by [employer] [facility] Pulse oximetry Branch Body temperature 2022-03-29 21:01:00 36.83 Chasidy Univ [facility] [place] [facility] Body height 2022-03-29 21:01:00 170.2 cm [facility] Body weight 2022-03-29 21:01:00 73 kg [facility] [place] [facility] BMI 2022-03-29 21:01:00 25.21 kg/m2 [facility] Systolic blood 2022-03-26 19:44:00 123 mm[Hg] Univer sity of pressure [facility] Diastolic blood 2022-03-26 19:44:00 60 mm[Hg] Unive rsity of pressure [facility] Heart rate 2022-03-26 19:44:00 60 /min [facility] [place] [facility] Body height 2022-03-26 19:44:00 170.2 cm [facility] [place] [facility] Body weight 2022-03-26 19:44:00 77.111 kg [facility] [place] [facility] BMI 2022-03-26 19:44:00 26.63 kg/m2 [facility] Oxygen saturation in 2022-03-26 19:44:00 98 /min University of Arterial blood by [employer] [facility] Pulse oximetry Branch Systolic blood 2022-01-31 20:07:00 134 mm[Hg] Univer sity of pressure [place] [facility] Diastolic blood 2022-01-31 20:07:00 64 mm[Hg] [facility] Heart rate 2022-01-31 20:07:00 57 /min [facility] Respiratory rate 2022-01-31 20:07:00 21 /min [facility] Body height 2022-01-31 20:07:00 170.2 cm [facility] Body weight 2022-01-31 20:07:00 77.747 kg [facility] BMI 2022-01-31 20:07:00 26.85 kg/m2 [facility] Oxygen saturation in 2022-01-31 20:07:00 99 /min [facility] Arterial blood by [facility] Pulse oximetry [place] Procedures Procedure Date / Time Performing Clinician Source Performed POCT GLUCOSE (AUTOMATED) 2022-06-19 22:40:00 Delfino Granado [facility] POCT GLUCOSE (AUTOMATED) 2022-06-19 18:37:00 Delfino Granado [facility] POCT GLUCOSE (AUTOMATED) 2022-06-19 14:00:00 Delfino Granado [facility] POCT GLUCOSE (AUTOMATED) 2022-06-19 03:12:00 Delfino Granado [facility] POCT GLUCOSE (AUTOMATED) 2022-06-18 23:11:00 Delfino Granado [facility] POCT GLUCOSE (AUTOMATED) 2022-06-18 21:03:00 [facility]) 2022-06-18 18:17:00 Delfino Granado [facility] POCT GLUCOSE (AUTOMATED) 2022-06-18 18:17:00 [facility] GUERO MULTI LEVEL - BY 2022-06-18 15:58:11 Ismael Martínez [facility] VASCULAR LAB [facility] POCT GLUCOSE (AUTOMATED) 2022-06-18 14:29:00 [facility]UCOSE (AUTOMATED) 2022-06-18 14:29:00 Delfino Granado [facility] PHOSPHORUS 2022-06-18 10:09:[address] [facility] MAGNESIUM 2022-06-18 10:09:00 [facility] BASIC METABOLIC PANEL 2022-06-18 10:09:00 Ester [facility] (NA, K, CL, CO2, GLUCOSE, [facility] BUN, CREATININE, CA) CBC WITH DIFF 2022-06-18 10:09:00 [facility] PHOSPHORUS 2022-06-18 10:09:00 [facility] MAGN[facility] 2022-06-18 10:09:00 [facility] BASIC METABOLIC PANEL 2022-06-18 10:09:00 Ester [facility] (NA, K, CL, CO2, GLUCOSE, [facility] BUN, CREATININE, CA) CBC WITH DIFF 2022-06-18 10:09:[address] [facility] POCT GLUCOSE (AUTOMATED) 2022-06-18 01:24:00 Delfino Granado [facility] POCT GLUCOSE (AUTOMATED) 2022-06-18 01:24:00 Delfino Granado [facility] POCT GLUCOSE (AUTOMATED) 2022-06-17 23:02:00 Delfino Granado [facility] POCT GLUCOSE (AUTOMATED) 2022-06-17 23:02:00 Delfino Granado [facility] FL TIME OR 2022-06-17 18:24:52 [facility] (NON-REPORTABLE) [facility] FL TIME OR 2022-06-17 18:24:52 [facility] POCT GLUCOSE (AUTOMATED) 2022-06-17 18:16:00 Delfino Granado [facility] POCT GLUCOSE (AUTOMATED) 2022-06-17 18:16:00 Delfino Granado [facility] POCT GLUCOSE (AUTOMATED) 2022-06-17 16:36:00 [facility] 2022-06-17 16:36:00 [facility] F[facility] 2022-06-17 13:00:00 [facility] ANGIOPLASTY 2022-06-17 13:00:00 [facility] FISTULOGRAM 2022-06-17 13:00:00 [facility] ANGIOPLASTY 2022-06-17 13:00:00 [facility] PHOSPHORUS 2022-06-17 12:06:00 [facility] MAGNESIUM 2022-06-17 12:06:00 [facility] BASIC METABOLIC PANEL 2022-06-17 12:06:00 Jessanna [facility] (NA, K, CL, CO2, GLUCOSE, [facility] BUN, CREATININE, CA) CBC WITH DIFF 2022-06-17 12:06:00 [facility] PHOSPHORUS 2022-06-17 12:06:00 [facility] MAGNESIUM 2022-06-17 12:06:00 [facility] BASIC METABOLIC PANEL 2022-06-17 12:06:00 [facility] (NA, K, CL, CO2, GLUCOSE, [facility] BUN, CREATININE, CA) CBC WITH DIFF 2022-06-17 12:06:00 [facility] POCT GLUCOSE (AUTOMATED) 2022-06-17 04:42:00 Delfino Granado U [facility]iversity of [facility] POCT GLUCOSE (AUTOMATED) 2022-06-17 04:42:00 Vannesa Delfino U niversity of [facility] POCT GLUCOSE (AUTOMATED) 2022-06-16 22:21:00 Delfino Granado U niversity of [facility] POCT GLUCOSE (AUTOMATED) 2022-06-16 22:21:00 Vannesa Delfino U niversity of [facility] POCT GLUCOSE (AUTOMATED) 2022-06-16 18:38:00 Vannesa Delfino U [facility] of [facility] POCT GLUCOSE (AUTOMATED) 2022-06-16 18:38:00 Vannesa Delfino U [facility] of [facility] POCT GLUCOSE (AUTOMATED) 2022-06-16 13:51:00 Vannesa Delfino U [facility] of [facility] POCT GLUCOSE (AUTOMATED) 2022-06-16 13:51:00 Vannesa Delfino U n[facility] of [facility] POCT GLUCOSE (AUTOMATED) 2022-06-16 03:24:00 Jade Granadoic U n[facility] of [facility] POCT GLUCOSE (AUTOMATED) 2022-06-16 03:24:00 Vannesa Delfino U [facility] of [facility] POCT GLUCOSE (AUTOMATED) 2022-06-16 02:38:00 Vannesa Delfino U [facility] of [facility] POCT GLUCOSE (AUTOMATED) 2022-06-16 02:38:00 Vannesa Delfino U [facility] of [facility] POCT GLUCOSE (AUTOMATED) 2022-06-15 21:00:00 Vannesa Delfino U [facility] of [facility] POCT GLUCOSE (AUTOMATED) 2022-06-15 21:00:00 Vannesa Delfino U [facility] of [facility] POCT GLUCOSE (AUTOMATED) 2022-06-15 18:05:00 Vannesa, Delfino U [facility] of [facility] POCT GLUCOSE (AUTOMATED) 2022-06-15 18:05:00 Vannesa Delfino U [facility] of [facility] POCT GLUCOSE (AUTOMATED) 2022-06-15 18:05:00 Vannesa, Delfino [facility] POCT GLUCOSE (AUTOMATED) 2022-06-15 15:57:00 Delfino Granado [facility] POCT GLUCOSE (AUTOMATED) 2022-06-15 15:57:00 Delfino Granado [facility] POCT GLUCOSE (AUTOMATED) 2022-06-15 15:57:00 Jade Granadoic [facility] POCT GLUCOSE (AUTOMATED) 2022-06-15 14:12:00 Delfino Granado [facility] POCT GLUCOSE (AUTOMATED) 2022-06-15 14:12:00 Delfino Granado [facility] POCT GLUCOSE (AUTOMATED) 2022-06-15 14:12:00 Vannesa, Delfino Elham [facility] BASIC METABOLIC PANEL 2022-06-15 11:33:00 Ismael Mart[facility]nez [facility] (NA, K, CL, CO2, GLUCOSE, Medica l Branch BUN, CREATININE, CA) CBC WITHOUT DIFF 2022-06-15 11:33:[address] [facility] BASIC METABOLIC PANEL 2022-06-15 11:33:00 Ismael Martínez [facility] sity [facility] (NA, K, CL, CO2, GLUCOSE, Medica l Branch BUN, CREATININE, CA) CBC WITHOUT DIFF 2022-06-15 11:33:00 [facility] 2022-06-15 11:33:00 Ismael Martínez [facility] (NA, K, CL, CO2, GLUCOSE, Medica l Branch BUN, CREATININE, CA) CBC WITHOUT DIFF 2022-06-15 11:33:00 Ismael Martínez [facility] [facility] PO[facility] GLUCOSE (AUTOMATED) 2022-06-15 02:32:00 Delfino Granado [facility] POCT GLUCOSE (AUTOMATED) 2022-06-15 02:32:00 Delfino Granado [facility] POCT GLUCOSE (AUTOMATED) 2022-06-15 02:32:00 Delfino Granado [facility] POCT GLUCOSE (AUTOMATED) 2022-06-14 23:56:00 Delfino Granado [facility] POCT GLUCOSE (AUTOMATED) 2022-06-14 23:56:00 Delfino Granado [facility] POCT GLUCOSE (AUTOMATED) 2022-06-14 23:56:00 Delfino Granado [facility] PREPARE PACKED RBC 2022-06-14 17:39:03 Hilaria Alvarado [facility] PREPARE PACKED RBC 2022-06-14 17:39:03 Hilaria Alvarado [facility] PREPARE PACKED RBC 2022-06-14 17:39:03 Hilaria Alvarado [facility] CBC WITHOUT DIFF 2022-06-14 17:21:[address] [facility] CBC WITHOUT DIFF 2022-06-14 17:21:[address] [facility] CBC WITHOUT DIFF 2022-06-14 17:21:[address] [facility] POCT GLUCOSE (AUTOMATED) 2022-06-14 17:19:00 Delfino Granado [facility] POCT GLUCOSE (AUTOMATED) 2022-06-14 17:19:00 Delfino Granado [facility] POCT GLUCOSE (AUTOMATED) 2022-06-14 17:19:00 Delfino Granado [facility] ABG+COOX+NA+K+GLU+CA2+ 2022-06-14 16:40:00 Delfino Granado [facility] ABG+COOX+NA+K+GLU+CA2+ 2022-06-14 16:40:00 Delfino Granado [facility] ABOVE THE KNEE AMPUTATION 2022-06-14 14:25:00 [facility] 2022-06-14 14:25:00 [facility] ABO GROUPING 2022-06-14 13:55:00 Hilaria Alvarado [facility] POCT GLUCOSE (AUTOMATED) 2022-06-14 13:55:00 Delfino Granado U [facility] HB ABO GROUPING 2022-06-14 13:55:00 Hilaria Alvarado [facility] POCT GLUCOSE (AUTOMATED) 2022-06-14 13:55:00 Delfino Granado [facility] HB ABO GROUPING 2022-06-14 13:55:00 Hilaria Alvarado [facility] POCT GLUCOSE (AUTOMATED) 2022-06-14 13:55:00 Delfino Granado U [facility] POCT GLUCOSE (AUTOMATED) 2022-06-14 13:15:00 Delfino Granado U [facility] POCT GLUCOSE (AUTOMATED) 2022-06-14 13:15:00 Delfino Granado U [facility] POCT GLUCOSE (AUTOMATED) 2022-06-14 13:15:00 Delfino Granado U [facility] POCT GLUCOSE (AUTOMATED) 2022-06-14 12:07:00 Delfino Granado U [facility] POCT GLUCOSE (AUTOMATED) 2022-06-14 12:07:00 Delfino Granado U [facility] POCT GLUCOSE (AUTOMATED) 2022-06-14 12:07:00 Delfino Granado [facility] BASIC METABOLIC PANEL 2022-06-14 08:08:00 [facility], K, CL, CO2, GLUCOSE, Medica l Branch BUN, CREATININE, CA) CBC WITH DIFF 2022-06-14 08:08:00 [facility] BASIC METABOLIC PANEL 2022-06-14 08:08:00 [facility] ([facility], K, CL, CO2, GLUCOSE, Medica l Branch BUN, CREATININE, CA) CBC WITH DIFF 2022-06-14 08:08:00 [facility] 2022-06-14 08:08:00 Eric Bhatt [facility] (NA, K, CL, CO2, GLUCOSE, Medica l Branch BUN, CREATININE, CA) CBC WITH DIFF 2022-06-14 08:08:00 [facility] POCT GLUCOSE (AUTOMATED) 2022-06-14 03:13:00 [facility]OMATED) 2022-06-14 03:13:00 [facility] PO[facility] GLUCOSE (AUTOMATED) 2022-06-14 03:13:00 Delfino [facility]adoers[facility]ly [facility] HOSPITAL ADMISSION 2022-06-13 06:01:00 Doctor Unassigned, No [facility] HOSPITAL ADMISSION 2022-06-13 06:01:00 Doctor Unassigned, No [facility] HOSPITAL ADMISSION 2022-06-13 06:01:00 Doctor Unassigned, No Uni vers[facility] of [facility] HEALTH - OTHER 2022-06-06 06:01:00 Doctor Unassigned, No Un iversity of [facility] PHYSICIAN ORDERS 2022-05-27 06:01:00 Doctor Unassigned, No Unive rsity of [facility] HEALTH 485 2022-05-05 06:01:00 Doctor Unassigned, No [facility] POCT GLUCOSE (AUTOMATED) 2022-05-04 02:41:00 [facility] PO[facility] GLUCOSE (AUTOMATED) 2022-05-03 22:25:00 [facility] POCT GLUCOSE (AUTOMATED) 2022-05-03 20:26:00 [facility] POCT GLUCOSE (AUTOMATED) 2022-05-03 03:10:00 [facility] POCT GLUCOSE (AUTOMATED) 2022-05-02 17:33:00 [facility] POCT GLUCOSE (AUTOMATED) 2022-05-02 14:27:00 Delfino Granado [facility] POCT GLUCOSE (AUTOMATED) 2022-05-02 02:06:00 [facility] 2022-05-01 23:36:00 [facility]SE (AUTOMATED) 2022-05-01 19:30:00 [facility]OS[facility]US 2022-05-01 10:29:00 [facility] 2022-05-01 10:29:00 [facility] BASIC METABOLIC PANEL 2022-05-01 10:29:00 Mendez Molina [facility] (NA, K, CL, CO2, GLUCOSE, Medica l Branch BUN, CREATININE, CA) CBC WITHOUT DIFF 2022-05-01 10:29:00 Mendez Molina [facility] POCT GLUCOSE (AUTOMATED) 2022-05-01 01:08:00 Vannesa Delfino U [facility] POCT GLUCOSE (AUTOMATED) 2022-04-30 21:03:00 Delfino Granado [facility] POCT GLUCOSE (AUTOMATED) 2022-04-30 17:41:00 Delfino Granado U [facility] POCT GLUCOSE (AUTOMATED) 2022-04-30 13:48:00 Delfino Granado [facility] POCT GLUCOSE (AUTOMATED) 2022-04-30 01:28:00 [facility]elfino [facility]SE (AUTOMATED) 2022-04-29 20:30:00 Delfino Granado [facility] POCT GLUCOSE (AUTOMATED) 2022-04-29 13:51:00 [facility]elfino [facility]SE (AUTOMATED) 2022-04-29 02:28:00 Delfino Granado U [facility] POCT GLUCOSE (AUTOMATED) 2022-04-28 21:29:00 Vannesa, Delfino [facility] POCT GLUCOSE (AUTOMATED) 2022-04-28 17:27:00 Vannesa Delfino [facility] POCT GLUCOSE (AUTOMATED) 2022-04-28 13:55:00 Vannesa Delfino [facility] POCT GLUCOSE (AUTOMATED) 2022-04-28 03:33:00 Vannesa Delfino [facility] POCT GLUCOSE (AUTOMATED) 2022-04-27 23:20:00 Vannesa Delfino [facility] POCT GLUCOSE (AUTOMATED) 2022-04-27 23:01:00 Vannesa Delfino [facility] POCT GLUCOSE (AUTOMATED) 2022-04-27 18:05:00 Vannesa Delfino [facility] POCT GLUCOSE (AUTOMATED) 2022-04-27 13:21:00 Vannesa Delfino [facility] POCT GLUCOSE (AUTOMATED) 2022-04-27 02:00:00 Jade Granadoic [facility] POCT GLUCOSE (AUTOMATED) 2022-04-26 23:12:00 Vannesa Delfino [facility] POCT GLUCOSE (AUTOMATED) 2022-04-26 20:30:00 Jade Granadoic [facility] POCT GLUCOSE (AUTOMATED) 2022-04-26 15:26:00 Vannesa Delfino [facility] POCT GLUCOSE (AUTOMATED) 2022-04-26 01:51:00 Vannesa Delfino [facility] POCT GLUCOSE (AUTOMATED) 2022-04-25 22:34:00 Vannesa Delfino [facility] POCT GLUCOSE (AUTOMATED) 2022-04-25 18:10:00 Vannesa Delfino [facility] POCT GLUCOSE (AUTOMATED) 2022-04-25 14:09:00 Vannesa Delfino [facility] POCT GLUCOSE (AUTOMATED) 2022-04-25 04:00:00 Vannesa Delfino U [facility] POCT GLUCOSE (AUTOMATED) 2022-04-25 02:44:00 Vannesa, Eric U [facility] POCT GLUCOSE (AUTOMATED) 2022-04-25 02:06:00 Delfino Granado [facility] POCT GLUCOSE (AUTOMATED) 2022-04-24 22:22:00 Delfino Granado [facility] POCT GLUCOSE (AUTOMATED) 2022-04-24 19:06:00 Delfino Granado [facility] POST DIALYSIS BUN 2022-04-24 18:08:00 Antonia Langley [facility] POCT GLUCOSE (AUTOMATED) 2022-04-24 18:06:00 Delfino Granado [facility] POCT GLUCOSE (AUTOMATED) 2022-04-24 15:27:00 Delfino Granado [facility] POCT GLUCOSE (AUTOMATED) 2022-04-24 01:28:00 Delfino Granado [facility] POCT GLUCOSE (AUTOMATED) 2022-04-23 22:16:00 Delfino Granado [facility] POCT GLUCOSE (AUTOMATED) 2022-04-23 18:05:00 Vannesa Delfino U [facility] POCT GLUCOSE (AUTOMATED) 2022-04-23 14:19:00 Delfino Granado [facility] PHOSPHORUS 2022-04-23 06:49:00 Ester Brandan [facility] MAGNESIUM 2022-04-23 06:49:[address] [facility] BASIC METABOLIC PANEL 2022-04-23 06:49:00 Brandan Norman [facility] (NA, K, CL, CO2, GLUCOSE, Deangelo Medica [facility] Branch BUN, CREATININE, CA) CBC WITH DIFF 2022-04-23 06:49:[address] [facility] POCT GLUCOSE (AUTOMATED) 2022-04-23 03:22:00 Delfino Granado U [facility] POCT GLUCOSE (AUTOMATED) 2022-04-22 17:29:00 Vannesa, Eric U [facility] POCT GLUCOSE (AUTOMATED) 2022-04-22 15:02:00 Vannesa, Eric U [facility] POCT GLUCOSE (AUTOMATED) 2022-04-22 13:36:00 PhoenixDelfino [facility] DME/SUPPLY JUSTIFICATION 2022-04-22 06:01:00 Doctor Unassigned, No [facility] Name [facility] POCT GLUCOSE (AUTOMATED) 2022-04-22 02:45:00 PhoenixDelfino [facility] POCT GLUCOSE (AUTOMATED) 2022-04-21 23:28:00 Vannesa, Eric [facility] POCT GLUCOSE (AUTOMATED) 2022-04-21 18:12:00 PhoenixDelfino [facility] POCT GLUCOSE (AUTOMATED) 2022-04-21 15:09:00 PhoenixDelfino [facility] CBC WITHOUT DIFF 2022-04-21 12:10:00 Ismael Martínez [facility] BASIC METABOLIC PANEL 2022-04-21 12:09:00 Ismael Martínez [facility] (NA, K, CL, CO2, GLUCOSE, Medica l Branch BUN, CREATININE, CA) POCT GLUCOSE (AUTOMATED) 2022-04-21 01:35:00 Phoenix Delfino [facility] POCT GLUCOSE (AUTOMATED) 2022-04-20 21:14:00 Vannesa Delfino [facility] POCT GLUCOSE (AUTOMATED) 2022-04-20 16:47:00 Phoenix Delfino [facility] POCT GLUCOSE (AUTOMATED) 2022-04-20 14:18:00 VannesaDelfino [facility] PHOSPHORUS 2022-04-20 09:34:00 Ismael Martínez [facility] MAGNESIUM 2022-04-20 09:34:00 Ismael Martínez [facility] BASIC METABOLIC PANEL 2022-04-20 09:34:00 Ismael Martínez [facility] (NA, K, CL, CO2, GLUCOSE, Medica l Branch BUN, CREATININE, CA) CBC WITHOUT DIFF 2022-04-20 09:34:00 Ismael Martínez [facility] POCT GLUCOSE (AUTOMATED) 2022-04-20 01:30:00 Delfino Granado [facility] POCT GLUCOSE (AUTOMATED) 2022-04-19 22:32:00 Delfino Granado [facility] CBC WITHOUT DIFF 2022-04-19 22:01:00 Mendez Molina [facility] POCT GLUCOSE (AUTOMATED) 2022-04-19 16:45:00 Delfino Granado [facility] PREPARE PACKED RBC 2022-04-19 16:38:13 Tracy [facility] POCT GLUCOSE (AUTOMATED) 2022-04-19 13:08:00 Delfino Granado [facility] HB ABO GROUPING 2022-04-19 12:58:00 Julissa Arciniega [facility] BASIC METABOLIC PANEL 2022-04-19 08:47:00 Ismael Martínez [facility] (NA, K, CL, CO2, GLUCOSE, Medica l Branch BUN, CREATININE, CA) CBC WITHOUT DIFF 2022-04-19 08:47:00 Ismael Martínez [facility] POCT GLUCOSE (AUTOMATED) 2022-04-19 02:37:00 Delfino Granado [facility] POCT GLUCOSE (AUTOMATED) 2022-04-18 20:43:00 Delfino Granado [facility] POCT GLUCOSE (AUTOMATED) 2022-04-18 18:31:00 Delfino rGanado [facility] POCT GLUCOSE (AUTOMATED) 2022-04-18 18:31:00 Delfino Granado [facility] POCT GLUCOSE (AUTOMATED) 2022-04-18 01:41:00 Delfino Granado [facility] POCT GLUCOSE (AUTOMATED) 2022-04-18 01:41:00 Delfino Granado [facility] POCT GLUCOSE (AUTOMATED) 2022-04-17 21:23:00 Vannesa, Delfino [facility] POCT GLUCOSE (AUTOMATED) 2022-04-17 21:23:00 Vannesa, Delfino [facility] CBC WITHOUT DIFF 2022-04-17 19:49[facility]22-04-17 19:49:[address] [facility] SURGICAL PATHOLOGY EXAM 2022-04-17 17:42:00 Vannesa Delfino [facility] BELOW THE KNEE AMPUTATION 2022-04-17 16:01:00 Vannesa [facility] BELOW THE KNEE AMPUTATION 2022-04-17 16:01:00 Phoenix [facility] POCT GLUCOSE (AUTOMATED) 2022-04-17 13:16:00 Vannesa Delfino [facility] POCT GLUCOSE (AUTOMATED) 2022-04-17 13:16:00 VannesaaJdeic [facility] PHOSPHORUS 2022-04-17 08:43:00 Mauricio [facility] MAGNESIUM 2022-04-17 08:43:00 [facility]OL[facility] 2022-04-17 08:43:00 Mauricio [facility] (NA, K, CL, CO2, GLUCOSE, Medica l Branch BUN, CREATININE, CA) CBC WITHOUT DIFF 2022-04-17 08:43:[address] [facility] PHOSPHORUS 2022-04-17 08:43:00 Mauricio [facility] MAGNESIUM 2022-04-17 08:43:00 Mauricio [facility] BASIC METABOLIC PANEL 2022-04-17 08:43:00 Mauricio [facility] (NA, K, CL, CO2, GLUCOSE, Medica l Branch BUN, CREATININE, CA) CBC WITHOUT DIFF 2022-04-17 08:43:[address] [facility] COVID-19 (ID NOW RAPID 2022-04-17 08:36:00 Mauricio Ismael [facility] TESTING) Medical Branch LAB ONLY COVID 2022-04-17 08:36:00 Mauricio Ismael [facility] COVID-19 (ID NOW RAPID 2022-04-17 08:36:00 Ismael Martínez [facility] TESTING) Medical Branch LAB ONLY COVID 2022-04-17 08:36:00 Mauricio [facility] POCT GLUCOSE (AUTOMATED) 2022-04-17 02:44:00 Delfino Granado [facility] POCT GLUCOSE (AUTOMATED) 2022-04-17 02:44:00 Delfino Granado U [facility] ACTIVATED PARTIAL 2022-04-17 01:36:00 Sushma, [facility] ACTIVATED PARTIAL 2022-04-17 01:36:00 Sushma, [facility] POCT GLUCOSE (AUTOMATED) 2022-04-17 00:24:00 Delfino Granado U [facility] POCT GLUCOSE (AUTOMATED) 2022-04-17 00:24:00 Delfino Granado U [facility] ACTIVATED PARTIAL 2022-04-16 17:59:00 Sushma, [facility] ACTIVATED PARTIAL 2022-04-16 17:59:00 Sushma, [facility] POCT GLUCOSE (AUTOMATED) 2022-04-16 17:58:00 Delfino Granado [facility] POCT GLUCOSE (AUTOMATED) 2022-04-16 17:58:00 Delfino Granado [facility] POCT GLUCOSE (AUTOMATED) 2022-04-16 13:02:00 Delfino Granado [facility] POCT GLUCOSE (AUTOMATED) 2022-04-16 13:02:00 Delfino Granado [facility] BASIC METABOLIC PANEL 2022-04-16 10:04:00 Brandan Norman [facility] (NA, K, CL, CO2, GLUCOSE, De[facility] BUN, CREATININE, CA) CBC WITH DIFF 2022-04-16 10:04:[address] [facility] BASIC METABOLIC PANEL 2022-04-16 10:04:00 Brandan Norman [facility] (NA, K, CL, CO2, GLUCOSE, De[facility] BUN, CREATININE, CA) CBC WITH DIFF 2022-04-16 10:04:[address] [facility] BASIC METABOLIC PANEL 2022-04-16 05:41:00 Sue Wadeherine [facility] (NA, K, CL, CO2, GLUCOSE, Medica l Branch BUN, CREATININE, CA) CBC WITHOUT DIFF 2022-04-16 05:41:00 Sue Wadeherine [facility] ACTIVATED PARTIAL 2022-04-16 05:41:00 Ester [facility] BASIC METABOLIC PANEL 2022-04-16 05:41:00 Taya Wade [facility] (NA, K, CL, CO2, GLUCOSE, Medica l Branch BUN, CREATININE, CA) CBC WITHOUT DIFF 2022-04-16 05:41:00 Sue Wadeherine [facility] ACTIVATED PARTIAL 2022-04-16 05:41:00 Ester [facility] POCT GLUCOSE (AUTOMATED) 2022-04-16 01:51:00 Delfino Granado [facility] POCT GLUCOSE (AUTOMATED) 2022-04-16 01:51:00 Delfino Granado [facility] POCT GLUCOSE (AUTOMATED) 2022-04-15 16:40:00 Delfino Granado [facility] POCT GLUCOSE (AUTOMATED) 2022-04-15 16:40:00 Delfino Granado [facility] ACTIVATED PARTIAL 2022-04-15 16:37:00 Ester [facility] ACTIVATED PARTIAL 2022-04-15 16:37:00 Ester [facility] POCT GLUCOSE (AUTOMATED) 2022-04-15 13:19:00 Delfino Granado [facility] POCT GLUCOSE (AUTOMATED) 2022-04-15 13:19:00 Delfino Granado [facility] BASIC METABOLIC PANEL 2022-04-15 09:00:00 Taya Wade [facility] (NA, K, CL, CO2, GLUCOSE, Medica l Branch BUN, CREATININE, CA) CBC WITHOUT DIFF 2022-04-15 09:00:00 Taya Wade [facility] BASIC METABOLIC PANEL 2022-04-15 09:00:00 Taya Wade [facility] (NA, K, CL, CO2, GLUCOSE, Medica l Branch BUN, CREATININE, CA) CBC WITHOUT DIFF 2022-04-15 09:00:00 Taya Wade [facility] CBC WITHOUT DIFF 2022-04-15 04:22:00 Taya Wade [facility] ACTIVATED PARTIAL 2022-04-15 04:22:00 Ester [facility] CBC WITHOUT DIFF 2022-04-15 04:22:00 Sue Wadeherine [facility] ACTIVATED PARTIAL 2022-04-15 04:22:00 Ester [facility] POCT GLUCOSE (AUTOMATED) 2022-04-15 02:27:00 Delfino Granado [facility] POCT GLUCOSE (AUTOMATED) 2022-04-15 02:27:00 Delfino Granado [facility] POCT GLUCOSE (AUTOMATED) 2022-04-15 00:06:00 Delfino Granado [facility] POCT GLUCOSE (AUTOMATED) 2022-04-15 00:06:00 Delfino Granado [facility] PREPARE PACKED RBC 2022-04-14 18:57:54 Taya Wade [facility] PREPARE PACKED RBC 2022-04-14 18:57:54 Taya Wade [facility] POCT GLUCOSE (AUTOMATED) 2022-04-14 17:17:00 Delfino Granado [facility] POCT GLUCOSE (AUTOMATED) 2022-04-14 17:17:00 Delfino Granado [facility] ACTIVATED PARTIAL 2022-04-14 15:47:[address] [facility] HB ABO GROUPING 2022-04-14 15:47:00 Sue Wadeherine [facility] ACTIVATED PARTIAL 2022-04-14 15:47:[address] [facility] HB ABO GROUPING 2022-04-14 15:47:00 Sue Wadeherine [facility] DUPLEX ARTERIAL LEG RIGHT 2022-04-14 14:11:00 [facility] DUPLEX ARTERIAL LEG RIGHT 2022-04-14 14:11:00 Brandan Norman [facility] - BY VASCULAR LAB [facility] POCT GLUCOSE (AUTOMATED) 2022-04-14 13:35:00 Delfino Granado [facility] POCT GLUCOSE (AUTOMATED) 2022-04-14 13:35:00 Delfino Granado [facility] PHOSPHORUS 2022-04-14 06:05:00 Bobby Fournier [facility] MAGNESIUM 2022-04-14 06:05:00 Bobby Fournier [facility] IONIZED CALCIUM 2022-04-14 06:05:00 [facility] BASIC METABOLIC PANEL 2022-04-14 06:05:00 Brandan Norman [facility] (NA, K, CL, CO2, GLUCOSE, [facility] BUN, CREATININE, CA) CBC WITH DIFF 2022-04-14 06:05:00 Brandan Norman [facility] ACTIVATED PARTIAL 2022-04-14 06:05:00 Ester [facility] PHOSPHORUS 2022-04-14 06:05:00 Shantanu [facility] MAGNESIUM 2022-04-14 06:05:00 Shantanu [facility] IONIZED CALCIUM 2022-04-14 06:05:00 Shantanu [facility] BASIC METABOLIC PANEL 2022-04-14 06:05:00 Brandan Norman [facility] (NA, K, CL, CO2, GLUCOSE, [facility] BUN, CREATININE, CA) CBC WITH DIFF 2022-04-14 06:05:[address] [facility] ACTIVATED PARTIAL 2022-04-14 06:05:00 Ester [facility] POCT GLUCOSE (AUTOMATED) 2022-04-14 04:01:00 Delfino Granado [facility] POCT GLUCOSE (AUTOMATED) 2022-04-14 04:01:00 Delfino Granado [facility] POCT GLUCOSE (AUTOMATED) 2022-04-13 23:32:00 Delfino Granado [facility] POCT GLUCOSE (AUTOMATED) 2022-04-13 23:32:00 Delfino Granado [facility] IONIZED CALCIUM 2022-04-13 21:13:00 Shantanu [facility] ACTIVATED PARTIAL 2022-04-13 21:13:00 Sushma [facility] IONIZED CALCIUM 2022-04-13 21:13:00 Shantanu [facility] ACTIVATED PARTIAL 2022-04-13 21:13:00 Sushma [facility] POCT GLUCOSE (AUTOMATED) 2022-04-13 17:31:00 Delfino Granado [facility] POCT GLUCOSE (AUTOMATED) 2022-04-13 17:31:00 Delfino Granado [facility] PHOSPHORUS 2022-04-13 10:51:00 Klarissa, [facility] MAGNESIUM 2022-04-13 10:51:00 [facility] BASIC METABOLIC PANEL 2022-04-13 10:51:00 Bobby Fournier [facility] (NA, K, CL, CO2, GLUCOSE, Edgar [facility] BUN, CREATININE, CA) INTACT PTH CALCIUM GROUP 2022-04-13 10:51:00 Reba Lala [facility] IRON PANEL 2022-04-13 10:51:00 Dai [facility] CBC WITHOUT DIFF 2022-04-13 10:51:00 Shantanu [facility] ACTIVATED PARTIAL 2022-04-13 10:51:[address] [facility] [facility] PHOSPHORUS 2022-04-13 10:51:00 Klarissa [facility] MAGNESIUM 2022-04-13 10:51:00 Shantanu [facility] BASIC METABOLIC PANEL 2022-04-13 10:51:00 Bobby [facility] (NA, K, CL, CO2, GLUCOSE, Edgar [facility] BUN, CREATININE, CA) INTACT PTH CALCIUM GROUP 2022-04-13 10:51:00 Reba Lala [facility] IRON PANEL 2022-04-13 10:51:00 Attjefe [facility] CBC WITHOUT DIFF 2022-04-13 10:51:00 [facility] ACTIVATED PARTIAL 2022-04-13 10:51:00 Sushma [facility] POCT GLUCOSE (AUTOMATED) 2022-04-13 01:41:00 Delfino Granado [facility] POCT GLUCOSE (AUTOMATED) 2022-04-13 01:41:00 Delfino Granado [facility] POCT GLUCOSE (AUTOMATED) 2022-04-12 22:13:00 Delfino Granado [facility] POCT GLUCOSE (AUTOMATED) 2022-04-12 22:13:00 Delfino Granado [facility] ACTIVATED PARTIAL 2022-04-12 19:39:00 Sushma [facility] ACTIVATED PARTIAL 2022-04-12 19:39:00 Sushma [facility] POCT GLUCOSE (AUTOMATED) 2022-04-12 17:51:00 Delfino Granado [facility] POCT GLUCOSE (AUTOMATED) 2022-04-12 17:51:00 Delfino Granado [facility] POCT GLUCOSE (AUTOMATED) 2022-04-12 17:48:00 Delfino Granado [facility] POCT GLUCOSE (AUTOMATED) 2022-04-12 17:48:00 Delfino Granado [facility] POCT GLUCOSE (AUTOMATED) 2022-04-12 12:28:00 Vannesa, Eric U [facility] POCT GLUCOSE (AUTOMATED) 2022-04-12 12:28:00 Vannesa, Eric U [facility] POCT GLUCOSE (AUTOMATED) 2022-04-12 12:25:00 Delfino Granado [facility] POCT GLUCOSE (AUTOMATED) 2022-04-12 12:25:00 Vannesa, Eric [facility] ACTIVATED PARTIAL 2022-04-12 11:22:00 Ester [facility] ACTIVATED PARTIAL 2022-04-12 11:22:00 Ester [facility] XR CHEST 1 VW 2022-04-12 09:45:00 Shantanu [facility] XR CHEST 1 VW 2022-04-12 09:45:00 Bobby Fournier [facility] PHOSPHORUS 2022-04-12 08:51:00 Lalo Cyrsay [place] [facility] MAGNESIUM 2022-04-12 08:51:00 Bobby Fournier [facility] IONIZED CALCIUM 2022-04-12 08:51:00 Bobby Fournier [facility] BASIC METABOLIC PANEL 2022-04-12 08:51:00 Bobby Fournier [facility] (NA, K, CL, CO2, GLUCOSE, [facility] BUN, CREATININE, CA) CBC WITHOUT DIFF 2022-04-12 08:51:00 Bobby Fournier [facility] PHOSPHORUS 2022-04-12 08:51:[address] [facility] MAGNESIUM 2022-04-12 08:51:00 Shantanu [facility] IONIZED CALCIUM 2022-04-12 08:51:00 Shantanu [facility] BASIC METABOLIC PANEL 2022-04-12 08:51:00 Bobby Fournier [facility] (NA, K, CL, CO2, GLUCOSE, [facility] BUN, CREATININE, CA) CBC WITHOUT DIFF 2022-04-12 08:51:00 Shantanu [facility] ACTIVATED PARTIAL 2022-04-12 05:04:00 Ester [facility] ACTIVATED PARTIAL 2022-04-12 05:04:00 Ester [facility] POCT GLUCOSE (AUTOMATED) 2022-04-12 01:49:00 Delfino Granado [facility] POCT GLUCOSE (AUTOMATED) 2022-04-12 01:49:00 Delfino Granado [facility] POCT GLUCOSE (AUTOMATED) 2022-04-11 22:53:00 Delfino Granado [facility] POCT GLUCOSE (AUTOMATED) 2022-04-11 22:53:00 Delfino Granado [facility] ACTIVATED PARTIAL 2022-04-11 18:14:00 Sushma [facility] ACTIVATED PARTIAL 2022-04-11 18:14:00 Sushma [facility] ACTIVATED PARTIAL 2022-04-11 18:14:00 Sushma [facility] POCT GLUCOSE (AUTOMATED) 2022-04-11 17:45:00 Delfino Granado [facility] POCT GLUCOSE (AUTOMATED) 2022-04-11 17:45:00 Delfino Granado [facility] POCT GLUCOSE (AUTOMATED) 2022-04-11 17:45:00 Delfino Granado [facility] XR CHEST 1 2022-04-11 13:50:00 Shantanu [facility] XR CHEST 1 2022-04-11 13:50:00 Shantanu [facility] XR CHEST 1 2022-04-11 13:50:00 Shantanu [facility] POCT GLUCOSE (AUTOMATED) 2022-04-11 13:35:00 Vannesa, Eric U [facility] POCT GLUCOSE (AUTOMATED) 2022-04-11 13:35:00 Delfino Granado [facility] POCT GLUCOSE (AUTOMATED) 2022-04-11 13:35:00 Delfnio Granado [facility] PHOSPHORUS 2022-04-11 10:38:00 Sushma, [facility] MAGNESIUM 2022-04-11 10:38:00 Sushma, [facility] FERRITIN SERUM 2022-04-11 10:38:00 Sushma, [facility] BASIC METABOLIC PANEL 2022-04-11 10:38:00 , [facility] (NA, K, CL, CO2, GLUCOSE, Medica l Branch BUN, CREATININE, CA) INTACT PTH CALCIUM GROUP 2022-04-11 10:38:00 Sushma, [facility] IRON PANEL 2022-04-11 10:38:00 Sushma, [facility] CBC WITH DIFF 2022-04-11 10:38:00 Sushma, [facility] PHOSPHORUS 2022-04-11 10:38:00 Sushma, [facility] MAGNESIUM 2022-04-11 10:38:00 Sushma, [facility] FERRITIN SERUM 2022-04-11 10:38:00 Sushma, [facility] BASIC METABOLIC PANEL 2022-04-11 10:38:00 Sushma, [facility] (NA, K, CL, CO2, GLUCOSE, Medica l Branch BUN, CREATININE, CA) INTACT PTH CALCIUM GROUP 2022-04-11 10:38:00 Sushma, [facility] IRON PANEL 2022-04-11 10:38:00 Sushma, [facility] CBC WITH DIFF 2022-04-11 10:38:00 Sushma, [facility] PHOSPHORUS 2022-04-11 10:38:00 Sushma, [facility] MAGNESIUM 2022-04-11 10:38:00 Sushma, [facility] FERRITIN SERUM 2022-04-11 10:38:00 Sushma, [facility] BASIC METABOLIC PANEL 2022-04-11 10:38:00 Sushma, [facility] (NA, K, CL, CO2, GLUCOSE, Medica l Branch BUN, CREATININE, CA) INTACT PTH CALCIUM GROUP 2022-04-11 10:38:00 Sushma, [facility] IRON PANEL 2022-04-11 10:38:00 Sushma, [facility] CBC WITH DIFF 2022-04-11 10:38:00 Sushma, [facility] XR KUB 2022-04-11 09:05:00 Sushma, [facility] XR KUB 2022-04-11 09:05:00 Sushma, [facility] XR KUB 2022-04-11 09:05:00 Sushma, [facility] AC PANEL 20 + LACTIC ACID 2022-04-11 05:23:00 Alek Ordaz [facility] AC PANEL 20 + LACTIC ACID 2022-04-11 05:23:00 [facility]EL 20 + LACTIC ACID 2022-04-11 05:23:00 [facility] 2022-04-11 05:22:00 Mauricio [facility] MAGNESIUM 2022-04-11 05:22:00 Mauricio [facility] BASIC METABOLIC PANEL 2022-04-11 05:22:00 Mauricio [facility] (NA, K, CL, CO2, GLUCOSE, Medica l Branch BUN, CREATININE, CA) CBC WITH DIFF 2022-04-11 05:22:00 Ismael Martínez [facility] MRSA / MSSA SCREEN BY 2022-04-11 05:22:00 Ismael Martínez [facility] PHOSPHORUS 2022-04-11 05:22:00 Ismael Martínez [facility] MAGNESIUM 2022-04-11 05:22:00 Mauricio [facility] BASIC METABOLIC PANEL 2022-04-11 05:22:00 Ismael Martínez [facility] sity [facility] (NA, K, CL, CO2, GLUCOSE, Medica l Branch BUN, CREATININE, CA) CBC WITH DIFF 2022-04-11 05:22:00 Mauricio [facility] MRSA / MSSA SCREEN BY 2022-04-11 05:22:00 Ismael Martínez [facility] PH[facility]US 2022-04-11 05:22:00 Ismael Martínez [facility] MAGNESIUM 2022-04-11 05:22:00 Mauricio [facility] BASIC METABOLIC PANEL 2022-04-11 05:22:00 [facility]mael Mart[facility] (NA, K, CL, CO2, GLUCOSE, Medica [facility] Branch BUN, CREATININE, CA) CBC WITH DIFF 2022-04-11 05:22:00 Mauricio [facility] MRSA / MSSA SCREEN BY 2022-04-11 05:22:00 Ismael Martínez [facility] ABG+COOX+NA+K+GLU+CA2+ 2022-04-11 03:34:00 Delfino Granado [facility] ABG+COOX+NA+K+GLU+CA2+ 2022-04-11 03:34:00 Delfino Granado [facility] TRANSFUSE PACKED RBC 2022-04-11 03:00:[address] [facility] TRANSFUSE PACKED RBC 2022-04-11 03:00:[address] [facility] TRANSFUSE PACKED RBC 2022-04-11 03:00:[address] [facility] TRANSFUSE PACKED RBC 2022-04-11 02:42:[address] [facility] TRANSFUSE PACKED RBC 2022-04-11 02:42:[address] [facility] TRANSFUSE PACKED RBC 2022-04-11 02:42:[address] [facility] PREPARE PACKED RBC 2022-04-11 02:31:54 Ester [facility] PREPARE PACKED RBC 2022-04-11 02:31:54 Ester [facility] PREPARE PACKED RBC 2022-04-11 02:31:54 Ester Brandan [facility] ABG+COOX+NA+K+GLU+CA2+ 2022-04-11 02:26:00 Delfino Granado [facility] ABG+COOX+NA+K+GLU+CA2+ 2022-04-11 02:26:00 Delfino Granado [facility] ABG+COOX+NA+K+GLU+CA2+ 2022-04-11 02:13:00 Delfino Granado [facility] ABG+COOX+NA+K+GLU+CA2+ 2022-04-11 02:13:00 Delfino Granado [facility] ABG+COOX+NA+K+GLU+CA2+ 2022-04-11 00:27:00 Geraldine Hern[facility]dez [facility] ABG+COOX+NA+K+GLU+CA2+ 2022-04-11 00:27:00 Geraldine Hernández [facility] ABG+COOX+NA+K+GLU+CA2+ 2022-04-10 22:19:00 Delfino Granado [facility] ABG+COOX+NA+K+GLU+CA2+ 2022-04-10 22:19:00 Delfino Granado [facility] ABG+COOX+NA+K+GLU+CA2+ 2022-04-10 21:53:00 Delfino Granado [facility] ABG+COOX+NA+K+GLU+CA2+ 2022-04-10 21:53:00 Delfino Granado [facility] ABG+COOX+NA+K+GLU+CA2+ 2022-04-10 20:29:00 Delfino Granado [facility] ABG+COOX+NA+K+GLU+CA2+ 2022-04-10 20:29:00 Delfino Granado versity of [facility] CENTRAL LINE 2022-04-10 19:15:00 Neville Abel [facility] INTUBATION 2022-04-10 19:14:00 Neville Abel [facility] ABG+COOX+NA+K+GLU+CA2+ 2022-04-10 19:12:00 Delfino Granado versity of [facility] ABG+COOX+NA+K+GLU+CA2+ 2022-04-10 19:12:00 Delfino Granado versity of [facility] ARTERIAL LINE 2022-04-10 17:30:00 Neville Abel [facility] ARTERIOGRAM 2022-04-10 16:50:00 Delfino Granado [facility] FEMORAL ENDARTERECTOMY 2022-04-10 16:50:00 Delfino Granado versity of [facility] FEMORAL-DISTAL BYPASS 2022-04-10 16:50:00 Delfino Granado [facility]RAFT [facility] TOE AMPUTATION 2022-04-10 16:50:00 Delfino Granado [facility] ARTERIOGRAM 2022-04-10 16:50:00 Delfino Granado [facility] FEMORAL ENDARTERECTOMY 2022-04-10 16:50:00 Delfino Granado versity of [facility] FEMORAL-DISTAL BYPASS 2022-04-10 16:50:00 Delfino Granado [facility] TOE AMPUTATION 2022-04-10 16:50:00 Vannesa [facility] POST DIALYSIS BUN 2022-04-10 16:34:00 Aleksandar Suero [facility] POST DIALYSIS BUN 2022-04-10 16:34:00 Aleksandar Suero [facility] POST DIALYSIS BUN 2022-04-10 16:34:00 Aleksandar Suero [facility] POCT GLUCOSE (AUTOMATED) 2022-04-10 14:34:00 Delfino Granado [facility] POCT GLUCOSE (AUTOMATED) 2022-04-10 14:34:00 Vannesa, Eric [facility] POCT GLUCOSE (AUTOMATED) 2022-04-10 14:34:00 Delfino Granado [facility] PHOSPHORUS 2022-04-10 09:40:[address] [facility] MAGNESIUM 2022-04-10 09:40:[address] [facility] BASIC METABOLIC PANEL 2022-04-10 09:40:00 Ester [facility] (NA, K, CL, CO2, GLUCOSE, [facility] BUN, CREATININE, CA) CBC WITH DIFF 2022-04-10 09:40:[address] [facility] PHOSPHORUS 2022-04-10 09:40:[address] [facility] MAGNESIUM 2022-04-10 09:40:[address] [facility] BASIC METABOLIC PANEL 2022-04-10 09:40:00 Ester [facility] (NA, K, CL, CO2, GLUCOSE, [facility] BUN, CREATININE, CA) CBC WITH DIFF 2022-04-10 09:40:00 Ester [facility] PHOSPHORUS 2022-04-10 09:40:00 Ester [facility] MAGNESIUM 2022-04-10 09:40:[address] [facility] BASIC METABOLIC PANEL 2022-04-10 09:40:00 Brandan Norman [facility] (NA, K, CL, CO2, GLUCOSE, [facility] BUN, CREATININE, CA) CBC WITH DIFF 2022-04-10 09:40:[address] [facility] POCT GLUCOSE (AUTOMATED) 2022-04-10 01:34:00 Delfino Granado [facility] POCT GLUCOSE (AUTOMATED) 2022-04-10 01:34:00 Delfino Granado [facility] POCT GLUCOSE (AUTOMATED) 2022-04-10 01:34:00 Delfino Granado [facility] COVID-19 (ID NOW RAPID 2022-04-09 23:46:00 Jessanna, [facility] TESTING) [facility] LAB ONLY COVID 2022-04-09 23:46:00 Ester [facility] INTERPRETATION [facility] COVID-19 (ID NOW RAPID 2022-04-09 23:46:00 Sahanna, [facility] TESTING) [facility] LAB ONLY COVID 2022-04-09 23:46:00 Ester [facility] INTERPRETATION [facility] COVID-19 (ID NOW RAPID 2022-04-09 23:46:00 Sahanna, [facility] TESTING) [facility] LAB ONLY COVID 2022-04-09 23:46:00 Ester [facility] INTERPRETATION [facility] COVID-19 (ID NOW RAPID 2022-04-09 23:46:00 Sahzada, [facility] TESTING) [facility] LAB ONLY COVID 2022-04-09 23:46:00 [facility] POCT GLUCOSE (AUTOMATED) 2022-04-09 21:25:00 Delfino Granado [facility] POCT GLUCOSE (AUTOMATED) 2022-04-09 21:25:00 [facility]UCOSE (AUTOMATED) 2022-04-09 21:25:00 Delfino Granado [facility] POCT GLUCOSE (AUTOMATED) 2022-04-09 21:25:00 [facility] POCT GLUCOSE (AUTOMATED) 2022-04-09 16:46:00 Delfino Granado [facility] POCT GLUCOSE (AUTOMATED) 2022-04-09 16:46:00 Delfino Granado [facility] POCT GLUCOSE (AUTOMATED) 2022-04-09 16:46:00 [facility] (AUTOMATED) 2022-04-09 16:46:00 [facility]ino [facility] HB ABO GROUPING 2022-04-09 16:05:00 [facility] HB ABO GROUPING 2022-04-09 16:05:00 [facility] HB ABO GROUPING 2022-04-09 16:05:00 [facility] HB ABO GROUPING 2022-04-09 16:05:00 [facility] POCT GLUCOSE (AUTOMATED) 2022-04-09 13:05:00 [facility] POCT GLUCOSE (AUTOMATED) 2022-04-09 13:05:00 Vannesa [facility] POCT GLUCOSE (AUTOMATED) 2022-04-09 13:05:00 [facility] POCT GLUCOSE (AUTOMATED) 2022-04-09 13:05:00 Delfino Granado [facility] BASIC METABOLIC PANEL 2022-04-09 10:00:00 [facility] (NA, K, CL, CO2, GLUCOSE, [facility] BUN, CREATININE, CA) CBC WITH DIFF 2022-04-09 10:00:00 [facility] BASIC METABOLIC PANEL 2022-04-09 10:00:00 [facility] (NA, K, CL, CO2, GLUCOSE, [facility] BUN, CREATININE, CA) CBC WITH DIFF 2022-04-09 10:00:00 [facility] BASIC METABOLIC PANEL 2022-04-09 10:00:00 [facility] (NA, K, CL, CO2, GLUCOSE, [facility] BUN, CREATININE, CA) CBC WITH DIFF 2022-04-09 10:00:00 [facility] BASIC METABOLIC PANEL 2022-04-09 10:00:00 [facility] (NA, K, CL, CO2, GLUCOSE, [facility] BUN, CREATININE, CA) CBC WITH DIFF 2022-04-09 10:00:00 [facility] POCT GLUCOSE (AUTOMATED) 2022-04-09 01:29:00 Delfino Granado [facility] POCT GLUCOSE (AUTOMATED) 2022-04-09 01:29:00 Delfino Granado [facility] POCT GLUCOSE (AUTOMATED) 2022-04-09 01:29:00 Delfino Granado [facility] POCT GLUCOSE (AUTOMATED) 2022-04-09 01:29:00 Delfino Granado [facility] POCT GLUCOSE (AUTOMATED) 2022-04-08 23:48:00 Delfino Granado [facility] POCT GLUCOSE (AUTOMATED) 2022-04-08 23:48:00 Delfino Granado [facility] POCT GLUCOSE (AUTOMATED) 2022-04-08 23:48:00 Delfino Granado [facility] POCT GLUCOSE (AUTOMATED) 2022-04-08 23:48:00 Delfino Granado [facility] POCT GLUCOSE (AUTOMATED) 2022-04-08 16:50:00 Delfino Granado [facility] POCT GLUCOSE (AUTOMATED) 2022-04-08 16:50:00 Delfino Granado [facility] POCT GLUCOSE (AUTOMATED) 2022-04-08 16:50:00 Delfino Granado [facility] POCT GLUCOSE (AUTOMATED) 2022-04-08 16:50:00 Delfino Granado [facility] FL TIME OR 2022-04-08 15:02:[address] [facility] o [facility] (NON-REPORTABLE) Medical Branch [place] TIME OR 2022-04-08 15:02:[address] [facility] [place] (NON-REPORTABLE) [facility] FL TIME OR 2022-04-08 15:02:[address] [facility] o [facility] (NON-REPORTABLE) Medical [facility] FL TIME OR 2022-04-08 15:02:[address] [facility] o [facility] (NON-REPORTABLE) Medical Branch ARTERIOGRAM 2022-04-08 12:51:00 [facility] ANGIOPLASTY 2022-04-08 12:51:00 [place] Tyrell [place] [facility] VASCULAR STENTING 2022-04-08 12:51:00 [place] [facility] [place] ARTERIOGRAM 2022-04-08 12:51:00 [place] Tyrell [place] [facility] ANGIOPLASTY 2022-04-08 12:51:00 [place] Tyrell [place] [facility] VASCULAR STENTING 2022-04-08 12:51:00 [place] [facility] POCT GLUCOSE (AUTOMATED) 2022-04-08 12:39:00 Delfino Granado [facility] POCT GLUCOSE (AUTOMATED) 2022-04-08 12:39:00 Delfino Granado [facility] POCT GLUCOSE (AUTOMATED) 2022-04-08 12:39:00 Delfino Granado [facility] POCT GLUCOSE (AUTOMATED) 2022-04-08 12:39:00 Delfino Granado [facility] BASIC METABOLIC PANEL 2022-04-08 10:49:00 [facility] (NA, K, CL, CO2, GLUCOSE, [facility] BUN, CREATININE, CA) CBC WITH DIFF 2022-04-08 10:49:00 [facility] BASIC METABOLIC PANEL 2022-04-08 10:49:00 [facility] (NA, K, CL, CO2, GLUCOSE, [facility] BUN, CREATININE, CA) CBC WITH DIFF 2022-04-08 10:49:00 [facility] BASIC METABOLIC PANEL 2022-04-08 10:49:00 [facility] (NA, K, CL, CO2, GLUCOSE, [facility] BUN, CREATININE, CA) CBC WITH DIFF 2022-04-08 10:49:00 [facility] BASIC METABOLIC PANEL 2022-04-08 10:49:00 [facility] (NA, K, CL, CO2, GLUCOSE, [facility] BUN, CREATININE, CA) CBC WITH DIFF 2022-04-08 10:49:00 [facility] POCT GLUCOSE (AUTOMATED) 2022-04-08 01:28:00 Delfino Granado [facility] POCT GLUCOSE (AUTOMATED) 2022-04-08 01:28:00 Delfino Granado [facility] POCT GLUCOSE (AUTOMATED) 2022-04-08 01:28:00 Delfino Granado [facility] POCT GLUCOSE (AUTOMATED) 2022-04-08 01:28:00 Delfino Granado [facility] POCT GLUCOSE (AUTOMATED) 2022-04-07 20:41:00 Delfino Granado [facility] POCT GLUCOSE (AUTOMATED) 2022-04-07 20:41:00 Delfino Granado [facility] POCT GLUCOSE (AUTOMATED) 2022-04-07 20:41:00 Delfino Granado [facility] POCT GLUCOSE (AUTOMATED) 2022-04-07 20:41:00 Delfino Granado [facility] POCT GLUCOSE (AUTOMATED) 2022-04-07 16:26:00 Delfino Granado [facility] POCT GLUCOSE (AUTOMATED) 2022-04-07 16:26:00 Vannesa, Eric U [facility] POCT GLUCOSE (AUTOMATED) 2022-04-07 16:26:00 Delfino Granado [facility] POCT GLUCOSE (AUTOMATED) 2022-04-07 16:26:00 Delfino Granado [facility] PHOSPHORUS 2022-04-07 09:59:00 Arabella [facility] MAGNESIUM 2022-04-07 09:59:00 Arabella [facility] BASIC METABOLIC PANEL 2022-04-07 09:59:00 Arabella [facility] (NA, K, CL, CO2, GLUCOSE, Medica l Branch BUN, CREATININE, CA) CBC WITH DIFF 2022-04-07 09:59:00 Arabella [facility] PHOSPHORUS 2022-04-07 09:59:00 Arabella [facility] MAGNESIUM 2022-04-07 09:59:00 Arabella [facility] BASIC METABOLIC PANEL 2022-04-07 09:59:00 Arabella [facility] (NA, K, CL, CO2, GLUCOSE, Medica [facility] Branch BUN, CREATININE, CA) CBC WITH DIFF 2022-04-07 09:59:00 Arabella [facility] PHOSPHORUS 2022-04-07 09:59:00 Arabella [facility] MAGNESIUM 2022-04-07 09:59:00 Arabella [facility] BASIC METABOLIC PANEL 2022-04-07 09:59:00 Arabella [facility] (NA, K, CL, CO2, GLUCOSE, Medica [facility] Branch BUN, CREATININE, CA) CBC WITH DIFF 2022-04-07 09:59:00 Arabella [facility] PHOSPHORUS 2022-04-07 09:59:00 Arabella [facility] MAGNESIUM 2022-04-07 09:59:00 Arabella [facility] BASIC METABOLIC PANEL 2022-04-07 09:59:00 Arabella [facility] (NA, K, CL, CO2, GLUCOSE, Medica [facility] Branch BUN, CREATININE, CA) CBC WITH DIFF 2022-04-07 09:59:00 Arabella [facility] POCT GLUCOSE (AUTOMATED) 2022-04-07 02:16:00 Vannesa, Eric U [facility] POCT GLUCOSE (AUTOMATED) 2022-04-07 02:16:00 Delfino Granado [facility] POCT GLUCOSE (AUTOMATED) 2022-04-07 02:16:00 Delfino Granado [facility] POCT GLUCOSE (AUTOMATED) 2022-04-07 02:16:00 Delfino Granado U [facility] COVID-19 (ID NOW RAPID 2022-04-06 22:06:00 Brandan Norman [facility] TESTING) [facility] LAB ONLY COVID 2022-04-06 22:06:00 Brandan Norman [facility] INTERPRETATION [facility] COVID-19 (ID NOW RAPID 2022-04-06 22:06:00 Ester, Brandan [facility] TESTING) [facility] LAB ONLY COVID 2022-04-06 22:06:00 Ester [facility] [place] INTERPRETATION [facility] COVID-19 (ID NOW RAPID 2022-04-06 22:06:00 Sahibanna, [facility] TESTING) [facility] LAB ONLY COVID 2022-04-06 22:06:00 Sahmagali, Brandan [place] [facility] [place] INTERPRETATION [facility] COVID-19 (ID NOW RAPID 2022-04-06 22:06:00 Sahibanna, [facility] TESTING) [facility] LAB ONLY COVID 2022-04-06 22:06:00 Ester, [facility] [place] INTERPRETATION [facility] POCT GLUCOSE (AUTOMATED) 2022-04-06 22:03:00 [facility] POCT GLUCOSE (AUTOMATED) 2022-04-06 22:03:00 Delfino Granado [facility] [facility] POCT GLUCOSE (AUTOMATED) 2022-04-06 22:03:00 Delfino [facility] PO[facility]UCOSE (AUTOMATED) 2022-04-06 22:03:00 Delfino Granado [facility] of [facility] POCT GLUCOSE (AUTOMATED) 2022-04-06 16:38:00 Delfino Granado [facility] niversity of [facility] POCT GLUCOSE (AUTOMATED) 2022-04-06 16:38:00 Vannesa Delfino [facility] of [facility] POCT GLUCOSE (AUTOMATED) 2022-04-06 16:38:00 Delfino Granado [facility] niversity of [facility] POCT GLUCOSE (AUTOMATED) 2022-04-06 16:38:00 Vannesa Delfino [facility] of [facility] POCT GLUCOSE (AUTOMATED) 2022-04-06 13:17:00 [facility] POCT GLUCOSE (AUTOMATED) 2022-04-06 13:17:00 Delfino Granado [facility] POCT GLUCOSE (AUTOMATED) 2022-04-06 13:17:00 Delfino Granado [facility] POCT GLUCOSE (AUTOMATED) 2022-04-06 13:17:00 Delfino Granado [facility] BASIC METABOLIC PANEL 2022-04-06 09:35:00 [facility] ([facility], K, CL, CO2, GLUCOSE, Medica l Branch BUN, CREATININE, CA) CBC WITH DIFF 2022-04-06 09:35:00 [facility]EL 2022-04-06 09:35:00 [facility] (NA, K, CL, CO2, GLUCOSE, Medica l Branch BUN, CREATININE, CA) CBC WITH DIFF 2022-04-06 09:35:00 Nwokedi [facility] BASIC METABOLIC PANEL 2022-04-06 09:35:00 okedi, [facility] (NA, K, CL, CO2, GLUCOSE, Medica l Branch BUN, CREATININE, CA) CBC WITH DIFF 2022-04-06 09:35:00 [facility] BASIC METABOLIC PANEL 2022-04-06 09:35:00 okedi, [facility] (NA, K, CL, CO2, GLUCOSE, Medica l Branch BUN, CREATININE, CA) CBC WITH DIFF 2022-04-06 09:35:00 [facility] POCT GLUCOSE (AUTOMATED) 2022-04-06 01:10:00 Brad Granger [facility] POCT GLUCOSE (AUTOMATED) 2022-04-06 01:10:00 [facility]UCOSE (AUTOMATED) 2022-04-06 01:10:00 [facility] POCT GLUCOSE (AUTOMATED) 2022-04-06 01:10:00 [facility]anger [facility] POCT GLUCOSE (AUTOMATED) 2022-04-05 21:37:00 Brad Granger [facility] [place] [facility] POCT GLUCOSE (AUTOMATED) 2022-04-05 21:37:00 Brad Granger Uni [facility] [place] [facility] POCT GLUCOSE (AUTOMATED) 2022-04-05 21:37:00 Brad Granger [facility] [place] [facility] POCT GLUCOSE (AUTOMATED) 2022-04-05 21:37:00 Brad Granger versity of [facility] HEPATITIS B SURFACE 2022-04-05 18:47:00 Aglieco, George G [facility] [place] ANTIBODY Medical Branch HEPATITIS B SURFACE 2022-04-05 18:47:00 Aglieco, George G [facility] [place] ANTIGEN Medical Branch HEPATITIS B SURFACE 2022-04-05 18:47:00 Aglieco, George G [facility] [place] ANTIBODY Medical Branch HEPATITIS B SURFACE 2022-04-05 18:47:00 Aglieco, George G [facility] [place] ANTIGEN Medical Branch HEPATITIS B SURFACE 2022-04-05 18:47:00 Aglieco, George G [facility] [place] ANTIBODY Medical Branch HEPATITIS B SURFACE 2022-04-05 18:47:00 Aglieco, George G [facility] [place] ANTIGEN Medical Branch HEPATITIS B SURFACE 2022-04-05 18:47:00 Aglieco, George G [facility] [place] ANTIBODY Medical Branch HEPATITIS B SURFACE 2022-04-05 18:47:00 Aglieco, George G [facility] [place] ANTIGEN Medical Branch POCT GLUCOSE (AUTOMATED) 2022-04-05 16:58:00 Brad Granger versity of [facility] POCT GLUCOSE (AUTOMATED) 2022-04-05 16:58:00 Brad Granger [facility] [place] [facility] POCT GLUCOSE (AUTOMATED) 2022-04-05 16:58:00 Brad Granger [facility] [place] [facility] POCT GLUCOSE (AUTOMATED) 2022-04-05 16:58:00 Brad Granger versity of [facility] DUPLEX ARTERIAL LEG RIGHT 2022-04-05 13:53:00 [facility] Branch DUPLEX ARTERIAL LEG RIGHT 2022-04-05 13:53:00 Emily [facility] [place] [facility] LAB Medical Branch DUPLEX ARTERIAL LEG RIGHT 2022-04-05 13:53:00 Emily Aragon [facility] [place] - BY VASCULAR LAB Medical Branch DUPLEX ARTERIAL LEG RIGHT 2022-04-05 13:53:00 Emily Aragon [facility] [place] - BY VASCULAR LAB Medical Branch POCT GLUCOSE (AUTOMATED) 2022-04-05 13:15:00 [facility]anger [facility] PO[facility] GLUCOSE (AUTOMATED) 2022-04-05 13:15:00 Brad Granger Uni versity of [facility] POCT GLUCOSE (AUTOMATED) 2022-04-05 13:15:00 Brad Granger Uni versity of [facility] POCT GLUCOSE (AUTOMATED) 2022-04-05 13:15:00 Brad Granger [facility] BASIC METABOLIC PANEL 2022-04-05 09:18:00 Jeffrey Mell Thomasita [facility] [place] (NA, K, CL, CO2, GLUCOSE, Medica l Branch BUN, CREATININE, CA) CBC WITH DIFF 2022-04-05 09:18:00 Mell Murphy [facility] BASIC METABOLIC PANEL 2022-04-05 09:18:00 Jeffrey Mell Thomasita [facility] [place] (NA, K, CL, CO2, GLUCOSE, Medica l Branch BUN, CREATININE, CA) CBC WITH DIFF 2022-04-05 09:18:00 Jeffrey Mell Angela [facility] BASIC METABOLIC PANEL 2022-04-05 09:18:00 JeffreyMell [facility] [place] (NA, K, CL, CO2, GLUCOSE, Medica l Branch BUN, CREATININE, CA) CBC WITH DIFF 2022-04-05 09:18:00 Jeffrey Melltory Miller [facility] BASIC METABOLIC PANEL 2022-04-05 09:18:00 Jeffrey Mell Thomasita [facility] [place] (NA, K, CL, CO2, GLUCOSE, Medica l Branch BUN, CREATININE, CA) CBC WITH DIFF 2022-04-05 09:18:00 Mell Murphy [facility] DISCLOSURE AND CONSENT, 2022-04-05 05:01:00 Doctor Unassigned, N o [facility] [place] MEDICAL AND SURGICAL Name Medical [facility] PROCEDURES DISCLOSURE AND CONSENT, 2022-04-05 05:01:00 Doctor Unassigned, N o [facility] MEDICAL AND SURGICAL Name Medical [facility] PROCEDURES DISCLOSURE AND CONSENT, 2022-04-05 05:01:00 Doctor Unassigned, N o [facility] MEDICAL AND SURGICAL Name Medical [facility] PROCEDURES DISCLOSURE AND CONSENT, 2022-04-05 05:01:00 Doctor Unassigned, N o [facility] MEDICAL AND SURGICAL Name Medical [facility] PROCEDURES POCT GLUCOSE (AUTOMATED) 2022-04-05 03:01:00 Brad Granger [facility] POCT GLUCOSE (AUTOMATED) 2022-04-05 03:01:00 Brad Granger [facility] POCT GLUCOSE (AUTOMATED) 2022-04-05 03:01:00 Brad Granger [facility] POCT GLUCOSE (AUTOMATED) 2022-04-05 03:01:00 Brad Granger [facility] XR FOOT <3 VW RIGHT 2022-04-04 17:19:47 Kimberly Menon [facility] XR FOOT <3 VW RIGHT 2022-04-04 17:19:47 Kimberly Menon [facility] XR FOOT <3 VW RIGHT 2022-04-04 17:19:47 Kimberly Menon [facility] XR FOOT <3 VW RIGHT 2022-04-04 17:19:47 Kimberly Menon [facility] PHOSPHORUS 2022-04-04 17:06:00 Mell Murphy [facility] MAGNESIUM 2022-04-04 17:06:00 Mell Murphy [facility] C-REACTIVE PROTEIN 2022-04-04 17:06:00 Kimberly Menon [facility] COMP. METABOLIC PANEL 2022-04-04 17:06:00 Kimberly Menon [facility] ([id number]) [facility] LIPID PANEL (25235)(TOTAL 2022-04-04 17:06:00 Mell Murphy [facility] CHOLESTEROL, [facility] TRIGLYCERIDES, HDL) SEDIMENTATION RATE 2022-04-04 17:06:00 Kimberly Menon [facility] CBC WITH DIFF 2022-04-04 17:06:00 Kimberly Menon [facility] GLYCOSYLATED HEMOGLOBIN 2022-04-04 17:06:00 Mell Murphy [facility] ([facility]) [facility] PHOSPHORUS 2022-04-04 17:06:00 Mell Murphy [facility] MAGNESIUM 2022-04-04 17:06:00 Jeffrey Mell Angela [facility] C-REACTIVE PROTEIN 2022-04-04 17:06:00 Kimberly Menon [facility] COMP. METABOLIC PANEL 2022-04-04 17:06:00 Kimberly Menon [facility] ([id number]) [facility] LIPID PANEL (30652)(TOTAL 2022-04-04 17:06:00 Mell Murphy [facility] CHOLESTEROL, [facility] TRIGLYCERIDES, HDL) SEDIMENTATION RATE 2022-04-04 17:06:00 Kimberly Menon [facility] CBC WITH DIFF 2022-04-04 17:06:00 Kimberly Menon [facility] GLYCOSYLATED HEMOGLOBIN 2022-04-04 17:06:00 Mell Murphy [facility] ([facility]) [facility] PHOSPHORUS 2022-04-04 17:06:00 Mell Murphy [facility] MAGNESIUM 2022-04-04 17:06:00 Jeffrey Melltory Miller [facility] C-REACTIVE PROTEIN 2022-04-04 17:06:00 Kimberly Menon [facility] COMP. METABOLIC PANEL 2022-04-04 17:06:00 Kimberly Menon [facility] ([id number]) [facility] LIPID PANEL (70089)(TOTAL 2022-04-04 17:06:00 Mell Murphy [facility] CHOLESTEROL, [facility] TRIGLYCERIDES, HDL) SEDIMENTATION RATE 2022-04-04 17:06:00 Kimberly Menon [facility] CBC WITH DIFF 2022-04-04 17:06:00 Kimberly Menon [facility] GLYCOSYLATED HEMOGLOBIN 2022-04-04 17:06:00 Mell Murphy [facility] (A1C) Medical Branch PHOSPHORUS 2022-04-04 17:06:00 Mell Murphy [facility] Medical Branch MAGNESIUM 2022-04-04 17:06:00 Mell Murphy [facility] C-REACTIVE PROTEIN 2022-04-04 17:06:00 Kimberly Menon [facility] COMP. METABOLIC PANEL 2022-04-04 17:06:00 Kimberly Menon [facility] [place] ([id number]) Medical [place] LIPID PANEL (85289)(TOTAL 2022-04-04 17:06:00 Mell Murphy [facility] CHOLESTEROL, [facility] TRIGLYCERIDES, HDL) SEDIMENTATION RATE 2022-04-04 17:06:00 Kimberly Menon [facility] CBC WITH DIFF 2022-04-04 17:06:00 Kimberly Menon [facility] GLYCOSYLATED HEMOGLOBIN 2022-04-04 17:06:00 Mell Murphy [facility] ([facility]) Medical Branch CONSENT/REFUSAL FOR 2022-04-04 16:10:56 Doctor Unassigned, No [facility] [place] DIAGNOSIS AND TREATMENT Name Medical Branch CONSENT/REFUSAL FOR 2022-04-04 16:10:56 Doctor Unassigned, No [facility] [place] DIAGNOSIS AND TREATMENT Name Medical Branch CONSENT/REFUSAL FOR 2022-04-04 16:10:56 Doctor Unassigned, No [facility] [place] DIAGNOSIS AND TREATMENT Name Medical Branch CONSENT/REFUSAL FOR 2022-04-04 16:10:56 Doctor Unassigned, No [facility] [place] DIAGNOSIS AND TREATMENT Name Medical Branch DISCLOSURE AND CONSENT, 2022-04-04 05:01:00 Doctor Unassigned, N o [facility] MEDICAL AND SURGICAL Name Medical [facility] PROCEDURES HOSPITAL ADMISSION 2022-04-04 05:01:00 Doctor Unassigned, No Uni versity of [facility] Medical Branch DISCLOSURE AND CONSENT, 2022-04-04 05:01:00 Doctor Unassigned, N o [facility] MEDICAL AND SURGICAL Name Medical Bra [facility] PROCEDURES HOSPITAL ADMISSION 2022-04-04 05:01:00 Doctor Unassigned, No Uni versity of [facility] Medical Branch DISCLOSURE AND CONSENT, 2022-04-04 05:01:00 Doctor Unassigned, N o [facility] MEDICAL AND SURGICAL Name Medical [facility] PROCEDURES HOSPITAL ADMISSION 2022-04-04 05:01:00 Doctor Unassigned, No [facility] DISCLOSURE AND CONSENT, 2022-04-04 05:01:00 Doctor Unassigned, N o [facility] MEDICAL AND SURGICAL Name Medical [facility] PROCEDURES HOSPITAL ADMISSION 2022-04-04 05:01:00 Doctor Unassigned, No Uni versity of [facility] Medical [place] CLOSED RX METATARSAL 2022-03-30 01:32:[address] [facility] FX [facility] URINALYSIS 2022-03-30 01:01:00 Singer [facility] o [facility] COMP. METABOLIC PANEL 2022-03-29 22:17:00 Efrem Mc[facility]air [facility] ([id number]) Medical Branch CBC WITH DIFF 2022-03-29 22:17:00 Singer [facility] o [facility] RAPID INFLUENZA A/B 2022-03-29 21:49:00 Efrem Mcnair [facility] COVID-19 (ID NOW RAPID 2022-03-29 21:49:00 Efrem Mcnair [facility] TESTING) Medical Branch XR FOOT <3 VW RIGHT 2022-03-29 21:46:37 Efrem Mcnair [facility] CONSENT/REFUSAL FOR 2022-03-29 20:52:52 Doctor Unassigned, No [facility] Name Medical [place] Encounters Start End Encounter Admission Attending Care Care Encounter Source Date/Time Date/Time Type Type Clinicians Facility Department ID 2022-06-19 Outpatient R DELFINO GRANADO [facility] [id number] Univers 12:58:52 DELFINO GRANADO [facility] 2022-05-22 Outpatient 3 [id number] ENCPL CHACHO [facility] 08:48:44 [facility] [place] 2022-05-17 Outpatient 3 [id number] ENCPL REF [facility] 08:58:34 [facility] [place] 2021-04-16 Emergency [facility] [id number] Univers 00:49:47 [facility] 2021-04-14 Emergency [facility] [id number] Univers 16:30:52 [facility] 2022-08-01 2022-08-01 Outpatient R WILMER [facility] [id number] Univers 15:00:00 15:00:00 SENDIL [facility] 2022-08-01 2022-08-01 Outpatient R WILMER [facility] [id number] Univers 15:00:00 15:00:00 SENDIL [facility] 2022-07-18 2022-07-18 Outpatient R DELFINO GRANADO [facility] [id number] Univers 13:45:00 13:45:00 DELFINO GRANADO [facility] 2022-06-27 2022-06-27 Outpatient R DELFINO GRANADO [facility] [id number] Univers 13:15:00 14:43:11 DELFINO GRANADO [facility] 2022-06-27 2022-06-27 Office [facility] 1.2.840.114 [id number] Univers 13:15:00 14:43:11 Visit , [facility] 350.1.13.10 i [place] [id number] [address] 2022-06-27 2022-06-27 Telephone [facility] 1.2.840.11 [id number] Univers 00:00:00 00:00:00 , [facility] 350.1.13.10 i [place] [id number] [facility] 205 Branch 2022-06-20 2022-06-20 Transition JOANNA Michaels 1.2.840.114 [id number] Univers 00:00:00 00:00:00 of Care Lucille GR 350.1.13.10 [place] [id number] [facility] 403 Branch 2022-06-13 2022-06-19 Inpatient U DELFINO GRANADO [facility] [id number] Univers 14:07:00 22:43:00 DELFINO GRANADO [facility] 2022-06-13 2022-06-19 Hospital Vannesa JENNIE 1.2.840.114 [id number] Univers 14:07:00 22:43:00 Encounter , Delfino MOTA 350.1.13.10 ity of [facility] 4.2.7.2.686 Luis Alberto as [id number] [facility] 099 Branch 2022-06-17 2022-06-17 Surgery [place] SHAHID 1.2.840.114 [id number] Univers 07:00:00 09:36:00 , Delfino GRANADOSY 350.1.13.10 it y of [facility] 4.2.7.2.686 Luis Alberto as [id number] [facility] 103 Branch 2022-06-14 2022-06-14 Surgery Vannesa JENNIE 1.2.840.114 [id number] Univers 06:55:00 10:01:00 , Delfinowallace GRANADOSY 350.1.13.10 it y of [facility] 4.2.7.2.686 Luis Alberto as [id number] [facility] 103 Branch 2022-06-13 2022-06-13 [facility] [id number] Univers 15:00:00 15:00:00 DELFINO GRANADO [facility] 2022-06-13 2022-06-13 Orders Doctor ANATOLIY 1.2.840.114 [id number] Univers 00:00:00 00:00:00 Only Unassigned, NAKUL 350.1.13.10 ity of [place] [facility] 4.2.7.2.686 Luis Alberto as [id number] [facility] 009 Branch 2022-06-12 2022-06-12 Telephone [place] [facility] 1.2.840.11 [id number] Univers 00:00:00 00:00:00 , Delfino Vale [facility] 350.1.13.10 i ty [place] [id number] [facility] 205 Branch 2022-06-06 2022-06-06 Outpatient R [facility] [id number] Univers 15:30:00 15:30:00 VANNESADELFINO NAVA ity of [facility] 2022-06-06 2022-06-06 Orders Doctor ANATOLIY 1.2.840.114 [id number] Univers 00:00:00 00:00:00 Only Unassigned, NAKUL 350.1.13.10 ity of [place] [facility] 4.2.7.2.686 Luis Alberto as [id number] [address] 2022-06-05 2022-06-05 Telephone [facility] 1.2.840.11 4 [id number] Univers 00:00:00 00:00:00 , Delfino Y HEALTH 350.1.13.10 i [place] [id number] [address] 2022-06-03 2022-06-03 Telephone [facility] 1.2.840.11 [id number] Univers 00:00:00 00:00:00 , Delfino Y HEALTH 350.1.13.10 i [place] [id number] [address] 2022-05-31 2022-05-31 Telephone [facility] 1.2.840.11 [id number] Univers 00:00:00 00:00:00 , Delfino Y HEALTH 350.1.13.10 i [place] [id number] [address] 2022-05-30 2022-05-30 Telephone Anastacia ARXI 1.2.315.562 [id number] Univers 00:00:00 00:00:00 Precious HEALTH 350.1.13.10 it y of [place] 4.2.7.2.686 Luis Alberto as ETHAN?BLEA [id number] [address] MEDICAL OFFICE BUILDING 2022-05-29 2022-05-29 Telephone STEPHANIE Salvador 1.2.840.114 [id number] Univers 00:00:00 00:00:00 Tyrell Y HEALTH 350.1.13.10 i [place] [id number] [address] 2022-05-27 2022-05-27 Outpatient R BELLA [facility] [id number] Univers 15:30:00 16:16:23 MICHELLE [facility]erson [facility] 2022-05-27 2022-05-27 Office NAEEM Blanco 1.2.840.114 [id number] Univers 15:30:00 16:16:23 Visit Michelle R Y HEALTH 350.1.13.10 it[place] [id number] [address] 2022-05-27 2022-05-27 Orders Doctor ANATOLIY 1.2.840.114 [id number] Univers 00:00:00 00:00:00 Only Unassigned, NAKUL 350.1.13.10 ity of [place] [facility] 4.2.7.2.686 Luis Alberto as [id number] [address] 2022-05-24 2022-05-24 [facility] 1.2.840.114 [id number] Univers 00:00:00 00:00:00 Outreach Katie Ferreira HEALTH 350.1.13.10 i ty of [place] 4.2.7.2.686 Luis Alberto as ETHAN?BLEA [id number] [address] MEDICAL OFFICE [facility] 2022-05-23 2022-05-23 Outpatient [facility] [id number] Univers 14:30:00 16:02:17 PRECIOUS [facility]erson [facility] 2022-05-23 2022-05-23 [facility] 1.2.840.114 [id number] Univers 14:30:00 16:02:17 Visit Precious HEALTH 350.1.13.10 it y of [place] 4.2.7.2.686 Luis Alberto as ETHAN?BLEA [id number] [address] MEDICAL OFFICE BUILDING 2022-05-23 2022-05-23 Telephone [facility] 1.2.840.11 [id number] Univers 00:00:00 00:00:00 , Delfino Y HEALTH 350.1.13.10 i [place] [id number] [address] 2022-05-21 2022-05-21 Telephone [facility] 1.2.856.807 [id number] Univers 00:00:00 00:00:00 Precious HEALTH 350.1.13.10 it y of [place] 4.2.7.2.686 Luis Alberto as ETHAN?BLEA [id number] [address] OFFICE [facility] 2022-05-17 2022-05-17 Telephone [facility] 1.2.888.159 [id number] Univers 00:00:00 00:00:00 Precious HEALTH 350.1.13.10 it y of [place] 4.2.7.2.686 Luis Alberto as ETHAN?BLEA [id number] [address] 2022-05-14 2022-05-14 Telephone [facility] 1.2.850.210 [id number] Univers 00:00:00 00:00:00 Precious HEALTH 350.1.13.10 it y of [place] 4.2.7.2.686 Luis Alberto as ETHAN?BLEA [id number] [address] OFFICE [facility] 2022-05-13 2022-05-13 Telephone NAEEM Blanco 1.2.840.11 [id number] Univers 00:00:00 00:00:00 Michelle R Y HEALTH 350.1.13.10 it[place] [id number] [address] 2022-05-08 2022-05-08 Telephone [facility] 1.2.785.292 [id number] Univers 00:00:00 00:00:00 Precious HEALTH 350.1.13.10 it y of [place] 4.2.7.2.686 Luisa Lberto as ETHAN?BLEA [id number] [address] 2022-05-06 2022-05-06 Transition JOANNA Elias 1.2.840.114 [id number] Univers 00:00:00 00:00:00 of Care Wanda GR 350.1.13.10 [place] [id number] [facility] 403 [address] 2022-05-05 2022-05-05 Orders Doctor ANATOLIY 1.2.840.114 [id number] Univers 00:00:00 00:00:00 Only Unassigned, NAKUL 350.1.13.10 ity of [place] [facility] 4.2.7.2.686 Luis Alberto as [id number] [facility] 009 Branch 2022-04-04 2022-05-03 Inpatient X [facility] [id number] Univers 11:26:00 23:00:00 [facility] ity of [facility] 2022-04-04 2022-05-03 [facility] Kimberly Menon 1.2.84 0.114 [id number] Univers 11:26:00 23:00:00 Encounter Brad Granger 350.1.13.10 ity of [facility] 4.2.7.2.686 [place] [id number] [facility] 089 Branch 2022-05-03 2022-05-03 Telephone Anastacia [facility] 1.2.992.708 [id number] Univers 00:00:00 00:00:00 Precious HEALTH 350.1.13.10 it y of [place] 4.2.7.2.686 Luis Alberto as ETHAN?BLEA [id number] [address] MEDICAL OFFICE BUILDING 2022-04-23 2022-04-23 Telephone [facility] 1.2.840.11 [id number] Univers 00:00:00 00:00:[address] , [facility] HEALTH 350.1.13.10 i ty [place] [id number] [facility] 205 Branch 2022-04-17 2022-04-17 Surgery [place] SHAHID 1.2.840.114 [id number] Univers 10:30:00 13:28:00 , Delfino MOTA 350.1.13.10 it y of HOSPITAL 4.2.7.2.686 Luis Alberto as [id number] [facility] 103 Branch 2022-04-102022-04-11 Anesthesia Chuck Cohn 1.2.840.114 [id number] Univers 12:30:00 00:30:00 Event Yeni Dang 350.1.13.10 ity of [facility] 4.2.7.2.686 Luis Alberto as [id number] [facility] 103 Branch 2022-04-10 2022-04-10 Surgery Vannesa EKY 1.2.840.114 [id number] Univers 11:00:00 17:10:00 , Delfino MOTA 350.1.13.10 it y of [facility] 4.2.7.2.686 Luis Alberto as [id number] [facility] 103 Branch 2022-04-08 2022-04-08 Surgery SHAHID Salvador 1.2.840.114 [id number] Univers 07:15:00 11:16:00 Tyrell MOTA 350.1.13.10 it y of [facility] 4.2.7.2.686 Luis Alberto as [id number] [facility] 103 [place] 2022-04-08 2022-04-08 Telephone [facility] [id number] Univers 00:00:00 00:00:00 [facility] 350.1.13.10 it y of [place] 4.2.7.2.686 Luis Alberto as ETHAN?BLEA [phone] [address] MEDICAL OFFICE BUILDING 2022-03-29 2022-03-29 Emergency X SINGER ARXI ERT [id number] Univers 16:06:00 20:48:00 [facility] 2022-03-29 2022-03-29 Emergency [facility] [id number] Univers 16:06:00 20:48:00 Efrem BLAKE 350.1.13.10 i ty of [place] [id number] [facility] [address] 2022-03-29 2022-03-29 [facility]phone [facility] [id number] Univers 00:00:00 00:00:00 Precious HEALTH 350.1.13.10 it y of [place] 4.2.7.2.686 Luis Alberto as ETHAN?BLEA [phone] [facility] [place] [facility] [facility] OFFICE [facility] 2022-03-27 2022-03-27 Telephone [facility] 1.2.616.690 [id number] Univers 00:00:00 00:00:00 Precious HEALTH 350.1.13.10 it y of [place] 4.2.7.2.686 Luis Alberto as ETHAN?BLEA [phone] [address] OFFICE [facility] 2022-03-26 2022-03-26 Outpatient R ANASTACIA [facility] [id number] Univers 15:45:00 23:59:00 PRECIOUS sony [facility] 2022-03-26 2022-03-26 Office [facility] 1.2.840.114 [id number] Univers 14:30:00 15:51:29 Visit Precious HEALTH 350.1.13.10 it y of [place] 4.2.7.2.686 Luis Alberto as ETHAN?BLEA [id number] [address] OFFICE [facility] 2022-03-01 2022-03-01 Refcarie [facility] 1.2.840.114 [id number] Univers 00:00:00 00:00:00 Wondiful A HEALTH 350.1.13.10 ity of [place] 4.2.7.2.686 Luis Alberto as ETHAN?BLEA [phone] [address] OFFICE [facility] 2022-02-09 2022-02-09 Funeral Home Attendant Josee Gonzalez Lab Main [facility] 1.2.8 40.114 [id number] Univers 11:00:00 11:15:00 Visit Pretty Guillen [place] 350.1.13. 10 ity of [facility] 4.2.7.2.[place] ESS[place]ARIS[place] [phone] [facility] 353 [facility] 2022-02-09 2022-02-09 Outpatient R WILMER [facility] [id number] Univers 11:00:00 11:00:00 PRETTY nickerson [facility] 2022-02-07 2022-02-07 Outpatient R WILMER [facility] [id number] Univers 16:00:00 23:59:00 SENDIL ity [facility] 2022-02-07 2022-02-07 Outpatient R WILMER [facility] [id number] Univers 16:00:00 16:00:00 SENDIL ity [facility] 2022-01-31 2022-01-31 Funeral Home Attendant 2, Adc Lab [facility] 1.2.840.114 [id number] Univers 15:45:00 16:00:00 Visit GuillenPretty 350.1.13. 10 ity of [place] [phone] Oh dical NAL 353 [facility] 2022-01-31 2022-01-31 [facility] [id number] Univers 15:00:00 15:29:55 SENDIL ity [facility] 2022-01-31 2022-01-31 Office Wilmer [facility] 1.2.840.114 [id number] Univers 15:00:00 15:29:55 Visit Sendtracie BLA[place] 350.1.13.10 ity of [place] [phone] [facility] 059 [facility] 2022-01-31 2022-01-31 [facility] [id number] Univers 15:00:00 15:00:00 SENDIL ity [facility] 2022-01-31 2022-01-31 [facility] [id number] Univers 15:00:00 15:00:00 SENDIL ity [facility] 2022-01-31 2022-01-31 Out[facility] [id number] Univers 15:00:00 15:00:00 SENDIL ity [facility] 2022-01-31 2022-01-31 Orders Doctor COPE 1.2.840.114 [id number] Univers 00:00:00 00:00:00 Only Unassigned, NAKUL 350.1.13.10 ity of [place] [facility] 4.2.7.2.686 Luis Alberto as [phone] [address] 2022-01-15 2022-01-15 Orders Doctor ANATOLIY 1.2.840.114 [id number] Univers 00:00:00 00:00:00 Only Unassigned, NAKUL 350.1.13.10 ity of [place] [facility] 4.2.7.2.686 Luis Alberto as [phone] [address] 2022-01-01 2022-01-01 Outpatient R ANASTACIA [facility] [id number] Univers 14:30:00 15:23:56 PRECIOUS ity of [facility] 2022-01-01 2022-01-01 Office [facility] 1.2.840.114 [id number] Univers 14:30:00 15:23:56 Visit Precious HEALTH 350.1.13.10 it y of [place] 4.2.7.2.686 Luis Alberto as ETHAN?BLEA [id number] [address] MEDICAL OFFICE [facility] 2022-01-01 2022-01-01 Abstract [facility] 1.2.840.114 [id number] Univers 00:00:00 00:00:00 Precious HEALTH 350.1.13.10 it y of [place] 4.2.7.2.686 Luis Alberto as ETHAN?BLEA [phone] [address] MEDICAL OFFICE [facility] 2021-12-28 2021-12-28 Patient Doctor [facility] 1.2.840.114 [id number] Univers 00:00:00 00:00:00 Secure Msg Unassigned, HEALTH 350.1.13.10 ity of [place] 4.2.7.2.686 Luis Alberto as ETHAN?BLEA [phone] [address] OFFICE [facility] 2021-12-28 2021-12-28 Telephone [facility] 1.2.534.693 [id number] Univers 00:00:00 00:00:00 Precious HEALTH 350.1.13.10 it y of [place] 4.2.7.2.686 Luis Alberto as ETHAN?BLEA [phone] [address] MEDICAL OFFICE [facility] 2021-12-27 2021-12-27 Hospital [facility] 1.2.840.114 [id number] Univers 15:10:58 23:59:00 Encounter Precious BLAKE 350.1.13.10 ity of [facility] 4.2.7.2.686 [facility] [phone] [facility] [address] [place] 2021-12-27 2021-12-27 Out[facility] [id number] Univers 15:10:09 15:09:00 PRECIOUS ity [facility] 2021-12-27 2021-12-27 [facility] 1.2.840.114 [id number] Univers 15:00:00 15:09:00 Encounter Precious BLAKE 350.1.13.10 ity [facility] 4.2.7.2.686 [facility] [phone] [facility] [address] 2021-12-25 2021-12-25 Out[facility] [id number] Univers 16:00:00 16:00:00 [facility] 2021-12-25 2021-12-25 Out[facility] [id number] Univers 16:00:00 16:00:00 SENDIL ity [facility] 2021-12-25 2021-12-25 Outpatient [facility] [id number] Univers 14:30:00 14:30:00 PRECIOUS [facility]erson [facility] 2021-12-04 2021-12-04 Office [facility] 1.2.840.114 [id number] Univers 14:00:00 15:51:48 Visit Precious JONES 350.1.13.10 it y [facility] 4.2.7.2.686 Luis Alberto as ETHAN?BLEA [phone] Oh magno [place] [address] [place] [address] 2021-12-04 2021-12-04 Outpatient [facility] [id number] Univers 14:00:00 15:51:48 PRECIOUS [facility] 2021-12-04 2021-12-04 Outpatient [facility] [id number] Univers 14:00:00 14:00:00 PRECIOUS ity of [facility] 2021-10-20 2021-10-20 Refill Suzi [facility] 1.2.840.114 [id number] Univers 00:00:00 00:00:00 Wondiful A HEALTH 350.1.13.10 ity of [place] 4.2.7.2.686 Luis Alberto as ETHAN?BLEA [phone] Oh dical KNEY [address] MEDICAL OFFICE BUILDING 2021-10-18 2021-10-18 Outpatient [facility] [id number] Univers 15:30:00 16:16:07 [facility] 2021-10-18 2021-10-18 Office [facility] 1.2.840.114 [id number] Univers 15:30:00 16:16:07 Visit Sendtracie BLAKE 350.1.13.10 ity of [place] 4.2.7.2.686 [place] [id number] Oh dicnicole [place] 059 [facility] 2021-10-11 2021-10-11 Outpatient R [facility] [id number] Univers 09:45:00 09:45:00 ity of [facility] 2021-10-05 2021-10-05 Emergency X CHAISMAEL, [facility] ERT [id number] Univers 17:48:00 20:55:00 DEANNA ity [facility] 2021-10-05 2021-10-05 Emergency Chaoman, TRAUMA 1.2.840.114 [id number] Univers 17:48:00 20:55:00 [facility] 350.1.13.10 it[place] [phone] [facility] [address] 2021-09-28 2021-09-28 Orders Doctor ANATOLIY 1.2.840.114 [id number] Univers 00:00:00 00:00:00 Only Unassigned, NAKUL 350.1.13.10 ity of [place] [facility] 4.2.7.2.686 Luis Alberto as [phone] [facility] [address] 2021-09-14 2021-09-14 Refill Bella, [facility] 1.2.840.114 [id number] Univers 00:00:00 00:00:00 Michelle R HEALTH 350.1.13.10 ity of [place].2.[place] [phone] [address] OFFICE BUILDING 2021-09-11 2021-09-11 Refill [facility] 1.2.840.114 [id number] Univers 00:00:00 00:00:00 Pretty [facility] 350.1.13.10 ity of [place] 4.2.[place].2.[place] [phone] [place] [address] Branch [facility] 2021-09-06 2021-09-06 Office Bella, [facility] 1.2.840.114 [id number] Univers 16:00:00 16:05:23 Visit Michelle R Y HEALTH 350.1.13.10 ity of [place].2.[place] [id number] [address] 2021-09-06 2021-09-06 Outpatient R BLANCO, [facility] [id number] Univers 16:00:00 16:05:23 MICHELLE ity of [facility] 2021-09-06 2021-09-06 Outpatient R BLANCO, [facility] [id number] Univers 16:00:00 16:05:23 MICHELLE ity of [facility] 2021-09-06 2021-09-06 Outpatient R BLANCO, [facility] [id number] Univers 16:00:00 16:05:23 MICHELLE ity of [facility] 2021-09-06 2021-09-06 Outpatient R BLANCO, [facility] [id number] Univers 16:00:00 16:00:00 MICHELLE ity of [facility] 2021-09-06 2021-09-06 Funeral Home Attendant [facility] UNIVERSIT 1.2.840.114 [id number] Univers 15:15:00 15:15:00 Visit Pretty Guillen Y HEALTH 350.1.13. 10 ity of [place] [phone] [facility] [address] 2021-09-06 2021-09-06 Funeral Home Attendant [facility] UNIVERSIT 1.2.840.114 [id number] Univers 15:15:00 15:15:00 Visit Pretty Guillen 350.1.13. 10 ity of [place] 4[place].2.[place] [id number] [facility] [address] 2021-09-03 2021-09-03 Refill [facility] 1.2.840.114 [id number] Univers 00:00:00 00:00:00 Pretty [facility] 350.1.13.10 ity of [place] 4[place]2.[place].2.[place] [phone] [place] 077299 [facility] 2021-08-23 2021-08-23 Outpatient [facility] [id number] Univers 05:22:00 10:08:00 SHANNAN nickerson o f [facility] 2021-08-23 2021-08-23 Hospital SHAHID Rahman 1.2.653.857 [id number] Univers 05:22:00 10:08:00 Encounter Shannan MOTA 350.1.13.10 ity [facility] 4.2.7.2.686 Luis Alberto as [phone] [facility] [address] 2021-08-23 2021-08-23 Outpatient [facility] [id number] Univers 05:22:00 10:08:00 SHANNAN nickerson o f [facility] 2021-08-23 2021-08-23 Surgery SHAHID Rahman 1.2.840.114 [id number] Univers 07:15:00 09:20:00 Shannan MOTA 350.1.13.10 i ty of [facility] 4.2.7.2.686 Luis Alberto as [phone] [facility] [address] 2021-07-24 2021-07-24 Office NAEEM Rahman 1.2.840.114 [id number] Univers 16:00:00 16:41:31 Visit Shannan JONES 350.1.13.10 ity of [facility] 4.2.7.2.[place] [id number] [address] 2021-07-24 2021-07-24 Out[facility] [id number] Univers 16:00:00 16:41:31 SHANNAN russell [facility] 2021-07-24 2021-07-24 Outpatient [facility] [id number] Univers 16:00:00 16:41:31 SHANNAN fam [facility] 2021-07-24 2021-07-24 Outpatient R JOSIAH [facility] [id number] Univers 16:00:00 16:00:00 SHANNAN fam [facility] 2021-06-19 2021-06-19 Outpatient [facility] [id number] Univers 14:30:00 14:56:00 [facility] 2021-06-19 2021-06-19 Office [facility] 1.2.840.114 [id number] Univers 14:30:00 14:56:00 Visit Sendtracie Bender.Omega [facility] 350.1.13.10 ity of [place] 4.2.7.2.[place] [phone] Oh magno D[place] 059 [facility] 2021-06-19 2021-06-19 Outpatient [facility] [id number] Univers 14:30:00 14:30:00 SENDIL [facility] 2021-06-19 2021-06-19 Outpatient [facility] [id number] Univers 13:15:00 13:15:00 SHANNAN fam [facility] 2021-06-11 2021-06-11 Telephone [facility] 1.2.553.608 [id number] Univers 00:00:00 00:00:00 Sendil [facility]. HEALTH 350.1.13.10 ity of [place] 4.2.7.2.686 Luis Alberto as PROFESSIO [phone] [facility] [address] OFFICE BUILDING ONE 2021-06-04 2021-06-04 Telephone [facility] 1.2.840.114 [id number] Univers 00:00:00 00:00:00 Wondiful A HEALTH 350.1.13.10 ity of [place] 4.2.7.2.686 Luis Alberto as ETHAN?BLEA [phone] [facility] BURG[facility] [facility] OFFICE [facility] 2021-05-31 2021-05-31 Funeral Home Attendant Lab, Ang - Db [facility] 1.2.840.1 14 [id number] Univers 16:15:00 16:30:00 Visit Melissa Archer A HEALTH 350.1.13.1 0 ity of [place] 4.2.7.2.686 Luis Alberto as ETHAN?BLEA [phone] [facility] AUBREY 353 [facility] OFFICE [facility] 2021-05-31 2021-05-31 Outpatient [facility] [id number] Univers 15:45:00 16:11:56 WONDIFUL ity o f [facility] 2021-05-31 2021-05-31 Office [facility] 1.2.840.114 [id number] Univers 15:45:00 16:11:56 Visit Wondiful A HEALTH 350.1.13.10 ity of [place] 4.2.7.2.686 Luis Alberto as ETHAN?BLEA [phone] [address] OFFICE [facility] 2021-05-30 2021-05-30 Refill [facility] 1.2.840.114 [id number] Univers 00:00:00 00:00:00 Wondiful A HEALTH 350.1.13.10 ity of [place] 4.2.7.2.686 Luis Alberto as PROFESSIO [phone] [address] OFFICE [facility] ONE 2021-05-04 2021-05-04 Refill [facility] 1.2.840.114 [id number] Univers 00:00:00 00:00:00 Wondiful A HEALTH 350.1.13.10 ity of [place] 4.2.7.2.686 Luis Alberto as PROFESSIO [id number] [address] OFFICE [facility] ONE 2021-05-03 2021-05-03 Bacilio [facility]UN[facility] 1.2.840.114 [id number] Univers 00:00:00 00:00:00 Wondiful A HEALTH 350.1.13.10 ity of [facility] 4.2.7.2.686 Luis Alberto as PROFESSIO [phone] [facility] [address] [facility] 2021-04-05 2021-04-05 [facility] 1.2.840.114 [id number] Univers 13:58:34 23:59:00 Encounter Pretty Joy [place] 350.1.13.10 ity of [place].2.[place] [phone] [place] 944423 [facility] 2021-04-05 2021-04-05 Outpatient [facility] [id number] Univers 14:00:00 14:00:00 SENDIL [facility] 2021-04-03 2021-04-03 Outpatient [facility] [id number] Univers 09:30:00 09:30:00 MAURILIO ity [facility] 2021-04-03 2021-04-03 Refcarie [facility]UN[facility] 1.2.840.114 [id number] Univers 00:00:00 00:00:00 Wondiful A Health 350.1.13.10 ity of [place] 4.2.7.2.686 Luis Alberto as Professio [phone] [address] 2021-03-13 2021-03-13 Office Josiah, UNIVERSIT 1.2.840.114 [id number] Univers 14:40:07 16:03:40 Visit [facility] HEALTH 350.1.13.10 ity of [place] [id number] [address] 2021-03-13 2021-03-13 Office Josiah, UNIVERSIT 1.2.840.114 [id number] Univers 14:40:07 16:03:40 Visit [facility] HEALTH 350.1.13.10 ity of [place] 4[place].2.[place] [id number] [facility] [address] 2021-03-13 2021-03-13 Outpatient R JOSIAH [facility] [id number] Univers 14:30:00 14:30:00 SHANNAN fam f [facility] 2021-03-10 2021-03-10 Bacilio Suzi [facility] 1.2.840.114 [id number] Univers 00:00:00 00:00:00 [facility] 350.1.13.10 ity of [place] 4.2.7.2.686 Luis Alberto as Professio [phone] [facility] [address] Office [address] One 2021-03-08 2021-03-08 Telephone Wilmer [facility] 1.2.649.386 [id number] Univers 00:00:00 00:00:00 Sendil Rufino Blake 350.1.13.10 ity of [place] [id number] [facility] 059 [facility] 2021-03-06 2021-03-06 Office [facility] 1.2.840.114 [id number] Univers 09:34:37 10:34:22 Visit Sendtracie Blake 350.1.13.10 ity of [place].2.[place] [id number] [facility] 059 [facility] 2021-03-06 2021-03-06 Outpatient R WILMER [facility] [id number] Univers 09:30:00 09:30:00 SENDIL ity of [facility] 2021-03-06 2021-03-06 Orders Doctor ANATOLIY 1.2.840.114 [id number] Univers 00:00:00 00:00:00 Only Unassigned, NAKUL 350.1.13.10 ity of [place] [facility] 4.2.7.2.686 Luis Alberto as [phone] [facility] [address] 2021-01-30 2021-01-30 Outpatient R WILMER [facility] [id number] Univers 00:00:00 00:00:00 SENDIL ity of [facility] 2021-01-18 2021-01-18 Outpatient R WILMER [facility] [id number] Univers 09:00:00 09:00:00 SENDIL ity [facility] 2021-01-09 2021-01-09 Outpatient R JOSIAH [facility] [id number] Univers 14:45:00 14:45:00 SHANNAN sony o f [facility] 2021-01-09 2021-01-09 Outpatient R JOSIAH [facility] [id number] Univers 14:45:00 14:45:00 SHANNAN ity o f [facility] 2021-01-02 2021-01-02 Outpatient R SUZI [facility] [id number] Univers 10:30:00 10:30:00 WONDIFUL ity o [facility] 2020-12-19 2020-12-19 Outpatient R LESLEY [facility] [id number] Univers 11:00:00 11:00:00 RITESH ity o [facility] 2020-12-07 2020-12-07 Outpatient R DARNELL [facility] [id number] Univers 07:00:00 07:00:00 [facility] 2020-11-28 2020-11-28 Outpatient R GISELL [facility] [id number] Univers 09:15:00 09:15:00 [facility]ILIO [facility] 2020-11-14 2020-11-14 Outpatient R [facility] [id number] Univers 08:00:00 08:00:00 ity [facility] 2020-10-31 2020-10-31 Outpatient R WILMER [facility] [id number] Univers 13:00:00 13:00:00 SENDIL ity [facility] 2020-10-03 2020-10-03 Outpatient R LESLEY [facility] [id number] Univers 09:20:00 09:20:00 RITESH ity o f [facility] 2020-07-27 2020-07-27 Outpatient R SUZI [facility] [id number] Univers 15:45:00 15:45:00 WONDIFUL ity o f [facility] 2020-07-18 2020-07-18 Outpatient R WILMER [facility] [id number] Univers 14:00:00 14:00:00 SENDIL y [facility] 2020-07-11 2020-07-11 Outpatient R KAYLEY [facility] [id number] Univers 09:00:00 23:59:00 ROSAJUN ity o f [facility] 2020-07-07 2020-07-07 Outpatient [facility] [id number] Univers 11:30:00 11:30:00 SENDIL krishan [facility] 2020-06-29 2020-06-29 Outpatient R SUZI [facility] [id number] Univers 11:00:00 11:00:00 WONDIFUL ity o f [facility] 2020-04-04 2020-04-04 Outpatient R SUZI [facility] [id number] Univers 10:00:00 10:00:00 WONDIFUL ity o f [facility] 2020-03-28 2020-03-28 Outpatient R SUZI [facility] [id number] Univers 10:30:00 10:30:00 WONDIFUL ity o f [facility] 2020-03-09 2020-03-09 Outpatient R SUZI [facility] [id number] Univers 08:00:00 08:00:00 WONDIFUL ity o f [facility] 2020-02-09 2020-02-09 [facility]ill [facility] 1.2.840.114 [id number] 00:00:00 00:00:00 Wondiful A Health 350.1.13.10 [place] 4.2.7.2.686 Professio [phone] nal [address] 2020-02-01 2020-02-01 Telephone [facility] 1.2.027.622 [id number] 00:00:00 00:00:00 Sendil Rufino Blake 350.1.13.10 [place] 4.2.7.2.686 Professio [phone] nal 059 Building 2020-01-31 2020-01-31 Telephone [facility] 1.2.333.107 [id number] 00:00:00 00:00:00 Sendtracie Blake 350.1.13.10 [place] 4.2.7.2.686 Professio [phone] [facility] 059 [facility] 2020-01-28 2020-01-28 Orders Doctor ANATOLIY 1.2.840.114 [id number] 00:00:00 00:00:00 Only Unassigned, NAKUL 350.1.13.10 [place] [facility] 4.2.7.2.686 [id number] 2020-01-24 2020-01-24 Telephone [facility] 1.2.878.890 [id number] 00:00:00 00:00:00 Sendil Rhoda. [facility] 350.1.13.10 [place] 4.2.7.2.686 [place] [phone] [place] [address] Office [facility] 2020-01-20 2020-01-20 Funeral Home Attendant Josee Gonzalez [facility] 1.2.840.114 [id number] 08:17:04 08:32:04 Visit Lab Main [place] 350.1.13.10 [place] 4.2.7.2.686 Professio [phone] [facility] 353 [facility] 2020-01-20 2020-01-20 Outpatient [facility] [id number] Univers 08:15:00 08:15:[facility] 2020-[facility]-20 2020-01-20 Orders Doctor ANATOLIY 1.2.840.114 [id number] 00:00:00 00:00:00 Only Unassigned, NAKUL 350.1.13.10 [place] [facility] [id number] 2019-12-23 2019-12-23 [facility] [id number] 08:30:34 10:02:10 ne Visit Kacitracie Blake [id number] [place] [id number] Professio [phone] [address] 2019-12-23 2019-12-23 [facility] [id number] Univers 09:00:00 09:00:00 SENDIL [facility] 2019-12-09 2019-12-09 Outpatient R JOSIAH [facility] [id number] Univers 09:00:00 09:00:00 SHANNAN krishan fam drew [facility] 2019-11-16 2019-11-16 Outpatient R JOSIAH [facility] [id number] Univers 08:30:00 08:30:00 SHANNAN fam drew [facility] 2019-09-21 2019-09-21 Outpatient R JOSE [facility] [id number] Univers 10:00:00 10:00:00 [facility]O [facility] 2019-09-09 2019-09-09 Outpatient R SUZI [facility] [id number] Univers 11:00:00 11:00:00 MELISSA nickerson sarwat russell [facility] 2019-08-12 2019-08-12 Outpatient R JOSIAH [facility] [id number] Univers 08:30:00 08:30:00 SHANNAN fam drew [facility] 2019-06-29 2019-06-29 Outpatient R WILMER [facility] [id number] Univers 10:45:00 10:45:00 [facility]Y [facility] 2019-04-08 2019-04-08 Outpatient R WILMER [facility] [id number] Univers 07:53:33 07:53:00 [facility] 2019-03-23 2019-03-23 Outpatient R JOSE [facility] [id number] Univers 10:00:00 10:26:47 [facility] 2019-02-08 2019-02-09 Outpatient R JOSE [facility] NAHOMY [id number] Univers 04:57:00 17:49:00 [facility] 2019-02-05 2019-02-05 Emergency X [facility] ERT [id number] Univers 12:14:28 15:52:00 , V[facility]Y [facility] 2018-12-15 2018-12-15 Outpatient R LA [facility] [id number] Univers 10:00:00 11:12:44 JOSE L [facility] 2018-12-10 2018-12-10 [facility] [id number] Univers 10:30:00 10:30:00 MELISSA russell [facility] 2017-05-27 2017-05-27 Outpatient R SREE [facility] [id number] Univers 10:47:00 20:35:00 BLAZE [facility] Results Test Description Test Time Test Comments Results Result Comments Source POCT GLUCOSE (AUTOMATED) 2022-06-19 22:40:55 Test Item Value Reference Range Interpretation Comme nts POCT GLU (test code = 3743363707) 162 mg/dL 70-110 H Lab Interpretation (test code = 63239-7) [facility] 18:38:50 Test Item Value Reference Range Interpretation Comments POCT GLU (test code = 8820059825) 92 mg/dL 70-110 Lab Interpretation (test code = Normal 74652-7) [facility]22-[facility]19 14:01:43 Test Item Value Reference Range Interpretation Comments POCT GLU (test code = 3156215582) 90 mg/dL 70-110 Lab Interpretation (test code = Normal 82416-6) [facility]22-[facility]-19 03:13:15 Test Item Value Reference Range Interpretation Comments POCT GLU (test code = 7372754252) 145 mg/dL 70-110 H Lab Interpretation (test code = Abnormal 81343-0) [facility]2022-06-18 23:12:54 Test Item Value Reference Range Interpretation Comments POCT GLU (test code = 0163921044) 197 mg/dL 70-110 H Lab Interpretation (test code = Abnormal 50715-6) [facility]22-[facility]18 21:04:59 Test Item Value Reference Range Interpretation Comments POCT GLU (test code = 7103490493) 195 mg/dL 70-110 H Lab Interpretation (test code = Abnormal 74066-2) [facility]22-[facility]-18 18:19:05 Test Item Value Reference Range Interpretation Comments POCT GLU (test code = 6964901808) 187 mg/dL 70-110 H Lab Interpretation (test code = Abnormal 73942-0[facility] 18:19:05 Test Item Value Reference Range Interpretation Comments POCT GLU (test code = 2191643029) 187 mg/dL 70-110 H Lab Interpretation (test code = Abnormal 96040-5) [facility] GLUCOSE (AUTOMATED)2022-06-18 14:31:25 Test Item Value Reference Range Interpretation Comments POCT GLU (test code = 3493047626) 101 mg/dL 70-110 Lab Interpretation (test code = Normal 38060-0) [facility] GLUCOSE (AUTOMATED)2022-06-18 14:31:25 Test Item Value Reference Range Interpretation Comments POCT GLU (test code = 7982669169) 101 mg/dL 70-110 Lab Interpretation (test code = Normal 13734-3) [facility] GLUCOSE (AUTOMATED)2022-06-18 01:25:30 Test Item Value Reference Range Interpretation Comments POCT GLU (test code = 9296259266) 183 mg/dL 70-110 H Lab Interpretation (test code = Abnormal 08756-1) [facility] GLUCOSE (AUTOMATED)2022-06-18 01:25:30 Test Item Value Reference Range Interpretation Comments POCT GLU (test code = 4625652969) 183 mg/dL 70-110 H Lab Interpretation (test code = Abnormal 66301-7) [facility] GLUCOSE (AUTOMATED)2022-06-17 23:02:55 Test Item Value Reference Range Interpretation Comments POCT GLU (test code = 5773167776) 95 mg/dL 70-110 Lab Interpretation (test code = Normal 37826-8) [facility] GLUCOSE (AUTOMATED)2022-06-17 23:02:55 Test Item Value Reference Range Interpretation Comments POCT GLU (test code = 8953987774) 95 mg/dL 70-110 Lab Interpretation (test code = Normal 67960-4) [facility] GLUCOSE (AUTOMATED)2022-06-17 18:17:29 Test Item Value Reference Range Interpretation Comments POCT GLU (test code = 7169215600) 105 mg/dL 70-110 Lab Interpretation (test code = Normal 58456-1) [facility] GLUCOSE (AUTOMATED)2022-06-17 18:17:29 Test Item Value Reference Range Interpretation Comments POCT GLU (test code = 1863699031) 105 mg/dL 70-110 Lab Interpretation (test code = Normal 09782-8) [facility] GLUCOSE (AUTOMATED)2022-06-17 16:37:53 Test Item Value Reference Range Interpretation Comments POCT GLU (test code = 9839929296) 105 mg/dL 70-110 Lab Interpretation (test code = Normal 09315-8) [facility] GLUCOSE (AUTOMATED)2022-06-17 16:37:53 Test Item Value Reference Range Interpretation Comments POCT GLU (test code = 2198732667) 105 mg/dL 70-110 Lab Interpretation (test code = Normal 01142-9) [facility] WITH [id number] 13:02:12 Test Item Value Reference Range Interpretation Comments [...] as normal/abnormal . HGB (test code = 8.4 g/dL 12.2-16.4 L 718-7) HCT (test code = 27.8 % 38.4-49.3 L 4544-3) MCV (test code = 90.0 fL 81.7-95.6 787-2) MCH (test code = 27.2 pg 26.1-32.7 785-6) MCHC (test code = 30.2 g/dL 31.2-35.0 L 786-4) RDW-SD (test code = 53.2 fL 38.5-51.6 H 36091-9) RDW-CV (test code = 16.4 % 12.1-15.4 H 788-0) PLT (test code = See_Comment [Automated 777-3) message] The sy stem which generated this result transmitted reference range : 150 - 328 10*3/ ?L. The reference r adama was not used to interpret this result as normal/abnormal . MPV (test code = 13.1 fL 9.8-13.0 H 19520-2) IPF % (test code = 9.2 % 1.2-10.7 Platelet count 7275464113) measured by fluorescence method. NRBC/100 WBC (test See_Comment [Automat ed code = 1325812355) message] The system which generated this result transmitted reference range : 0.0 - 10.0 /100 WBCs. The refer ence range was not u sed to interpret th is result as normal/abnormal . NRBC x10^3 (test code See_Comment [Auto mated = 7115314158) message] The s ystem which generated this result transmitted reference range : 10*3/?L. The reference range was not used to interpret this result as normal/abnormal . GRAN MAT (NEUT) % 62.2 % (test code = 770-8) IMM GRAN % (test code 0.40 % = 1423135258) LYMPH % (test code = 18.9 % 736-9) MONO % (test code = 10.1 % 5905-5) EOS % (test code = 7.4 % 713-8) BASO % (test code = 1.0 % 706-2) GRAN MAT x10^3(ANC) 4.31 10*3/uL 1.99-6.95 (test code = 9202616946) IMM GRAN x10^3 (test 0.03 10*3/uL 0.00-0.06 code = 9945546111) LYMPH x10^3 (test code 1.31 10*3/uL 1.09-3.23 = 731-0) MONO x10^3 (test code 0.70 10*3/uL 0.36-1.02 = 742-7) EOS x10^3 (test code = 0.51 10*3/uL 0.06-0.53 711-2) BASO x10^3 (test code 0.07 10*3/uL 0.01-0.09 = 704-7) REACT LYMPHS (test Rare code = 2915834388) Lab Interpretation Abnormal (test code = 80648-6) [facility] WITH [id number] 13:02:12 Test Item Value Reference Range Interpretation Comments [...] as normal/abnormal . HGB (test code = 8.4 g/dL 12.2-16.4 L 718-7) HCT (test code = 27.8 % 38.4-49.3 L 4544-3) MCV (test code = 90.0 fL 81.7-95.6 787-2) MCH (test code = 27.2 pg 26.1-32.7 785-6) MCHC (test code = 30.2 g/dL 31.2-35.0 L 786-4) RDW-SD (test code = 53.2 fL 38.5-51.6 H 75489-3) RDW-CV (test code = 16.4 % 12.1-15.4 H 788-0) PLT (test code = See_Comment [Automated 777-3) message] The sy stem which generated this result transmitted reference range : 150 - 328 10*3/ ?L. The reference r adama was not used to interpret this result as normal/abnormal . MPV (test code = 13.1 fL 9.8-13.0 H 60318-9) IPF % (test code = 9.2 % 1.2-10.7 Platelet count 6624727897) measured by fluorescence method. NRBC/100 WBC (test See_Comment [Automat ed code = 8601938668) message] The system which generated this result transmitted reference range : 0.0 - 10.0 /100 WBCs. The refer ence range was not u sed to interpret th is result as normal/abnormal . NRBC x10^3 (test code See_Comment [Auto mated = 6634320943) message] The s ystem which generated this result transmitted reference range : 10*3/?L. The reference range was not used to interpret this result as normal/abnormal . GRAN MAT (NEUT) % 62.2 % (test code = 770-8) IMM GRAN % (test code 0.40 % = 8771790490) LYMPH % (test code = 18.9 % 736-9) MONO % (test code = 10.1 % 5905-5) EOS % (test code = 7.4 % 713-8) BASO % (test code = 1.0 % 706-2) GRAN MAT x10^3(ANC) 4.31 10*3/uL 1.99-6.95 (test code = 1466957443) IMM GRAN x10^3 (test 0.03 10*3/uL 0.00-0.06 code = 2181068621) LYMPH x10^3 (test code 1.31 10*3/uL 1.09-3.23 = 731-0) MONO x10^3 (test code 0.70 10*3/uL 0.36-1.02 = 742-7) EOS x10^3 (test code = 0.51 10*3/uL 0.06-0.53 711-2) BASO x10^3 (test code 0.07 10*3/uL 0.01-0.09 = 704-7) REACT LYMPHS (test Rare code = 2934965352) Lab Interpretation Abnormal (test code = 81178-4) [facility] METABOLIC PANEL (NA, K, CL, CO2, GLUCOSE, BUN, CREATININE, CA)2022-06-17 12:41:08 Test Item Value Reference Range Interpretation Comments NA (test code = 138 mmol/L 135-145 1393526843) K (test code = 4.3 mmol/L 3.5-5.0 8717523031) CL (test code = 104 mmol/L 98-108 2799419272) CO2 TOTAL (test code = 25 mmol/L 23-31 9458694259) AGAP (test code = 2-16 8930538849) BUN (test code = 36 mg/dL 7-23 H 5741068022) GLUCOSE (test code = 93 mg/dL 70-110 5286729649) CREATININE (test code = 5.56 mg/dL 0.60-1.25 H 4615656627) CALCIUM (test code = 9.5 mg/dL 8.6-10.6 0047053433) eGFR (test code = mL/min/1.73m2 7819915439) MARINO (test code = MARINO) Association of [...] tests). Lab Interpretation Abnormal (test code = 40757-5) [facility] 12:41:08 Test Item Value Reference Range Interpretation Comments MAGNESIUM (test code = 1466809778) 2.3 mg/dL 1.7-2.4 Lab Interpretation (test code = Normal 30392-4) [facility] 12:41:08 Test Item Value Reference Range Interpretation Comments PHOSPHORUS (test code = 2868846388) 3.6 mg/dL 2.5-5.0 Lab Interpretation (test code = Normal 81747-1) [facility] (NA, K, CL, CO2, GLUCOSE, BUN, CREATININE, CA)2022-06-17 12:41:08 Test Item Value Reference Range Interpretation Comments NA (test code = 138 mmol/L 135-145 8341356435) K (test code = 4.3 mmol/L 3.5-5.0 7836409416) CL (test code = 104 mmol/L 98-108 5251475302) CO2 TOTAL (test code = 25 mmol/L 23-31 1913083416) AGAP (test code = 2-16 1473704224) BUN (test code = 36 mg/dL 7-23 H 2908775483) GLUCOSE (test code = 93 mg/dL 70-110 0562349809) CREATININE (test code = 5.56 mg/dL 0.60-1.25 H 9830885938) CALCIUM (test code = 9.5 mg/dL 8.6-10.6 8110373955) eGFR (test code = mL/min/1.73m2 9909029936) MARINO (test code = MARINO) Association of [...] tests). Lab Interpretation Abnormal (test code = 81474-3) [facility] 12:41:08 Test Item Value Reference Range Interpretation Comments MAGNESIUM (test code = 6245975316) 2.3 mg/dL 1.7-2.4 Lab Interpretation (test code = Normal 74554-3) [facility] 12:41:08 Test Item Value Reference Range Interpretation Comments PHOSPHORUS (test code = 3108478859) 3.6 mg/dL 2.5-5.0 Lab Interpretation (test code = Normal 98340-3) [facility] GLUCOSE (AUTOMATED)2022-06-17 04:43:52 Test Item Value Reference Range Interpretation Comments POCT GLU (test code = 1013002535) 236 mg/dL 70-110 H Lab Interpretation (test code = Abnormal 73106-4) [facility] GLUCOSE (AUTOMATED)2022-06-17 04:43:52 Test Item Value Reference Range Interpretation Comments POCT GLU (test code = 9405865449) 236 mg/dL 70-110 H Lab Interpretation (test code = Abnormal 99645-3) [facility]COOX+NA+K+GLU+CA2+2022-06-16 22:39:43 Test Item Value Reference Range Interpretation Comments PH (test code = 2) 7.35-7.45 PCO2 (test code = See_Comment H [Automate d message] 4210474432) The system [employer] generated this result transmit rudolph reference range : 35 - 45 mmHg. The reference range was not used to interpret this result as normal/abnormal . PO2 (test code = See_Comment LL [Automated message] 9203923128) The system [employer] generated this result transmit rudolph reference range : 80 - 100 mmHg. The reference range was not used to interpret this result as normal/abnormal . HCO3 (test code = See_Comment H [Automate d message] 4360323576) The system [employer] generated this result transmit rudolph reference range : 22 - 26 mEq/L. The reference range was not used to interpret this result as normal/abnormal . BE (test code = See_Comment [Automated message] 9241611581) The system [employer] generated this result transmit rudolph reference range : -3.0 - 3.0 mEq/ L. The reference r adama was not used to interpret this result as normal/abnormal . THB (test code = 8.4 g/dL 13.5-18.0 L 8564993593) %O2HB (test code = 64.0 % 94.0-99.0 L 1702265724) %COHB ART (test code = 0.6 % 0.0-1.5 2096308081) %METHB ART (test code = 0.5 % 0.4-1.5 2176697340) VOL%O2 ART (test code = 7.6 % 15.0-23.0 L QUES 9901913184) NA (test code = 134 mmol/L 135-145 L 0936650069) K+ (test code = 3.6 mmol/L 3.5-5.0 4058517210) AC CA IONZ (test code = 5.00 mg/dL 4.50-5.30 6883388966) GLUCOSE (test code = 134 mg/dL 70-110 H 8820704173) Lab Interpretation Abnormal (test code = 26778-1) [facility]X+NA+K+GLU+CA2+2022-06-16 22:39:43 Test Item Value Reference Range Interpretation Comments PH (test code = 2) 7.35-7.45 PCO2 (test code = See_Comment H [Automate d message] 4824373105) The system [employer] generated this result transmit rudolph reference range : 35 - 45 mmHg. The reference range was not used to interpret this result as normal/abnormal . PO2 (test code = See_Comment LL [Automated message] 0109984182) The system [employer] generated this result transmit rudolph reference range : 80 - 100 mmHg. The reference range was not used to interpret this result as normal/abnormal . HCO3 (test code = See_Comment H [Automate d message] 5086683657) The system [employer] generated this result transmit rudolph reference range : 22 - 26 mEq/L. The reference range was not used to interpret this result as normal/abnormal . BE (test code = See_Comment [Automated message] 2475648058) The system [employer] generated this result transmit rudolph reference range : -3.0 - 3.0 mEq/ L. The reference r adama was not used to interpret this result as normal/abnormal . THB (test code = 8.4 g/dL 13.5-18.0 L 6653325178) %O2HB (test code = 64.0 % 94.0-99.0 L 5533069156) %COHB ART (test code = 0.6 % 0.0-1.5 2608567879) %METHB ART (test code = 0.5 % 0.4-1.5 7146594245) VOL%O2 ART (test code = 7.6 % 15.0-23.0 L QUES 9001449884) NA (test code = 134 mmol/L 135-145 L 3162129259) K+ (test code = 3.6 mmol/L 3.5-5.0 1081193687) AC CA IONZ (test code = 5.00 mg/dL 4.50-5.30 0702198240) GLUCOSE (test code = 134 mg/dL 70-110 H 5641457828) Lab Interpretation Abnormal (test code = 12075-7) [facility] GLUCOSE (AUTOMATED)2022-06-16 22:22:58 Test Item Value Reference Range Interpretation Comments POCT GLU (test code = 5877627923) 139 mg/dL 70-110 H Lab Interpretation (test code = Abnormal 78522-9) [facility] GLUCOSE (AUTOMATED)2022-06-16 22:22:58 Test Item Value Reference Range Interpretation Comments POCT GLU (test code = 6107755378) 139 mg/dL 70-110 H Lab Interpretation (test code = Abnormal 33856-1) [facility] GLUCOSE (AUTOMATED)2022-06-16 18:39:46 Test Item Value Reference Range Interpretation Comments POCT GLU (test code = 0842715236) 186 mg/dL 70-110 H Lab Interpretation (test code = Abnormal 87651-8) [facility] GLUCOSE (AUTOMATED)2022-06-16 18:39:46 Test Item Value Reference Range Interpretation Comments POCT GLU (test code = 8245762170) 186 mg/dL 70-110 H Lab Interpretation (test code = Abnormal 79789-8) [facility] GLUCOSE (AUTOMATED)2022-06-16 13:52:57 Test Item Value Reference Range Interpretation Comments POCT GLU (test code = 9099432619) 200 mg/dL 70-110 H Lab Interpretation (test code = Abnormal 98154-1) [facility] GLUCOSE (AUTOMATED)2022-06-16 13:52:57 Test Item Value Reference Range Interpretation Comments POCT GLU (test code = 5389614779) 200 mg/dL 70-110 H Lab Interpretation (test code = Abnormal 29720-1) [facility] GLUCOSE (AUTOMATED)2022-06-16 03:25:44 Test Item Value Reference Range Interpretation Comments POCT GLU (test code = 8625460547) 201 mg/dL 70-110 H Lab Interpretation (test code = Abnormal 79753-1) [facility] GLUCOSE (AUTOMATED)2022-06-16 03:25:44 Test Item Value Reference Range Interpretation Comments POCT GLU (test code = 1693325157) 201 mg/dL 70-110 H Lab Interpretation (test code = Abnormal 27648-6) [facility] GLUCOSE (AUTOMATED)2022-06-16 02:48:10 Test Item Value Reference Range Interpretation Comments POCT GLU (test code = 4927029573) 227 mg/dL 70-110 H Lab Interpretation (test code = Abnormal 96448-8) [facility] GLUCOSE (AUTOMATED)2022-06-16 02:48:10 Test Item Value Reference Range Interpretation Comments POCT GLU (test code = 2565933201) 227 mg/dL 70-110 H Lab Interpretation (test code = Abnormal 91877-6) [facility] GLUCOSE (AUTOMATED)2022-06-15 21:11:04 Test Item Value Reference Range Interpretation Comments POCT GLU (test code = 6944610984) 126 mg/dL 70-110 H Lab Interpretation (test code = Abnormal 73963-6) [facility] GLUCOSE (AUTOMATED)2022-06-15 21:11:04 Test Item Value Reference Range Interpretation Comments POCT GLU (test code = 4832904957) 126 mg/dL 70-110 H Lab Interpretation (test code = Abnormal 47390-0) [facility] GLUCOSE (AUTOMATED)2022-06-15 18:06:21 Test Item Value Reference Range Interpretation Comments POCT GLU (test code = 3396986640) 151 mg/dL 70-110 H Lab Interpretation (test code = Abnormal 25670-3) [facility]22-[facility]-15 18:06:21 Test Item Value Reference Range Interpretation Comments POCT GLU (test code = 1051367529) 151 mg/dL 70-110 H Lab Interpretation (test code = Abnormal 13992-7) [facility] GLUCOSE (AUTOMATED)2022-06-15 18:06:21 Test Item Value Reference Range Interpretation Comments POCT GLU (test code = 0224806491) 151 mg/dL 70-110 H Lab Interpretation (test code = Abnormal 61562-3) [facility] GLUCOSE (AUTOMATED)2022-06-15 15:57:56 Test Item Value Reference Range Interpretation Comments POCT GLU (test code = 4175485117) 139 mg/dL 70-110 H Lab Interpretation (test code = Abnormal 85322-8) [facility] GLUCOSE (AUTOMATED)2022-06-15 15:57:56 Test Item Value Reference Range Interpretation Comments POCT GLU (test code = 3598851944) 139 mg/dL 70-110 H Lab Interpretation (test code = Abnormal 91943-7) [facility] GLUCOSE (AUTOMATED)2022-06-15 15:57:56 Test Item Value Reference Range Interpretation Comments POCT GLU (test code = 2624226054) 139 mg/dL 70-110 H Lab Interpretation (test code = Abnormal 12464-6) [facility] GLUCOSE (AUTOMATED)2022-06-15 14:22:56 Test Item Value Reference Range Interpretation Comments POCT GLU (test code = 7024615601) 125 mg/dL 70-110 H Lab Interpretation (test code = Abnormal 03619-0) [facility] GLUCOSE (AUTOMATED)2022-06-15 14:22:56 Test Item Value Reference Range Interpretation Comments POCT GLU (test code = 5578806616) 125 mg/dL 70-110 H Lab Interpretation (test code = Abnormal 65766-1) [facility] GLUCOSE (AUTOMATED)2022-06-15 14:22:56 Test Item Value Reference Range Interpretation Comments POCT GLU (test code = 0255550176) 125 mg/dL 70-110 H Lab Interpretation (test code = Abnormal 03288-8) [facility] GLUCOSE (AUTOMATED)2022-06-15 02:43:15 Test Item Value Reference Range Interpretation Comments POCT GLU (test code = 6672744368) 148 mg/dL 70-110 H Lab Interpretation (test code = Abnormal 30166-3) [facility] GLUCOSE (AUTOMATED)2022-06-15 02:43:15 Test Item Value Reference Range Interpretation Comments POCT GLU (test code = 9504873552) 148 mg/dL 70-110 H Lab Interpretation (test code = Abnormal 96169-6) [facility] GLUCOSE (AUTOMATED)2022-06-15 02:43:15 Test Item Value Reference Range Interpretation Comments POCT GLU (test code = 5667261869) 148 mg/dL 70-110 H Lab Interpretation (test code = Abnormal 34381-7) [facility] GLUCOSE (AUTOMATED)2022-06-14 23:57:25 Test Item Value Reference Range Interpretation Comments POCT GLU (test code = 0101675780) 136 mg/dL 70-110 H Lab Interpretation (test code = Abnormal 37736-6) [facility] GLUCOSE (AUTOMATED)2022-06-14 23:57:25 Test Item Value Reference Range Interpretation Comments POCT GLU (test code = 2067387235) 136 mg/dL 70-110 H Lab Interpretation (test code = Abnormal 58114-1) [facility] GLUCOSE (AUTOMATED)2022-06-14 23:57:25 Test Item Value Reference Range Interpretation Comments POCT GLU (test code = 1347431150) 136 mg/dL 70-110 H Lab Interpretation (test code = Abnormal 08600-5) [facility] RBC (in units), 2 Units 2022-06-14 17:39:03 Test Item Value Reference Range Interpretation Comments Cross Match Result Compatible (test code = 4409) ISBT Blood Type Code (test code = 959243) Unit Blood Type (test O Pos code = 4410) Unit Number (test [id number] code = 4411) Blood Expiration Date & Time (test code = 305648) Status Information Returned from (test code = 4412) Issue Product Red Blood Cells Identification (test code = 4413) Product Code (test [id number] Performed at code = 4414) [facility] Laboratory Services [facility] Blood [address] [place] [address]Xflo Free: [phone] A No. [id number] [facility] P[facility] RBC (in units), 2 Units 2022-06-14 17:39:03 Test Item Value Reference Range Interpretation Comments Cross Match Result Compatible (test code = 4409) ISBT Blood Type Code (test code = 199793) Unit Blood Type (test O Pos code = 4410) Unit Number (test [id number] code = 4411) Blood Expiration Date & Time (test code = 361853) Status Information Issued (test code = 4412) Product Red Blood Cells Identification (test code = 4413) Product Code (test [id number] Performed at [facility] code = 4414) Laboratory Services [facility] Blood [address] [address]Dirq Free: [phone] A No. [id number] [facility] Packed RBC (in units), 2 Units 2022-06-14 17:39:03 Test Item Value Reference Range Interpretation Comments Cross Match Result Compatible (test code = 4409) ISBT Blood Type Code (test code = 230916) Unit Blood Type (test O Pos code = 4410) Unit Number (test [id number] code = 4411) Blood Expiration Date & Time (test code = 226101) Status Information Returned from (test code = 4412) Issue Product Red Blood Cells Identification (test code = 4413) Product Code (test L7043I25 Performed at code = 4414) [facility] Laboratory Services [facility] Blood [address] [place] [address]Whsk Free: [phone] A No. [id number] [facility] P[facility] RBC (in units), 2 Units 2022-06-14 17:39:03 Test Item Value Reference Range Interpretation Comments Cross Match Result Compatible (test code = 4409) ISBT Blood Type Code (test code = 305557) Unit Blood Type (test O Pos code = 4410) Unit Number (test [id number] code = 4411) Blood Expiration Date & Time (test code = 774113) Status Information Issued (test code = 4412) Product Red Blood Cells Identification (test code = 4413) Product Code (test R0109I73 Performed at [facility] code = 4414) Laboratory Services [address] [address]Jfql Free: [phone] A No. [id number] [facility] Packed RBC (in units), 2 Units 2022-06-14 17:39:03 Test Item Value Reference Range Interpretation Comments Cross Match Result Compatible (test code = 4409) ISBT Blood Type Code (test code = 861880) Unit Blood Type (test O Pos code = 4410) Unit Number (test [id number] code = 4411) Blood Expiration Date & Time (test code = 733207) Status Information Returned from (test code = 4412) Issue Product Red Blood Cells Identification (test code = 4413) Product Code (test G7620M04 Performed at code = 4414) [facility] Laboratory Services - [address] [address]Hygo Free: [phone] A No. [id number] [facility] RBC (in units), 2 Units 2022-06-14 17:39:03 Test Item Value Reference Range Interpretation Comments Cross Match Result Compatible (test code = 4409) ISBT Blood Type Code (test code = 205819) Unit Blood Type (test O Pos code = 4410) Unit Number (test [id number] code = 4411) Blood Expiration Date & Time (test code = 937037) Status Information Issued (test code = 4412) Product Red Blood Cells Identification (test code = 4413) Product Code (test [id number] Performed at [facility] code = 4414) Laboratory Services - [facility] Blood [address] [address]Ppss Free: [phone] A No. [id number] [facility] (AUTOMATED)2022-06-14 17:20:45 Test Item Value Reference Range Interpretation Comments POCT GLU (test code = 0426766742) 137 mg/dL 70-110 H Lab Interpretation (test code = Abnormal 67548-7) [facility] GLUCOSE (AUTOMATED)2022-06-14 17:20:45 Test Item Value Reference Range Interpretation Comments POCT GLU (test code = 6369102728) 137 mg/dL 70-110 H Lab Interpretation (test code = Abnormal 02399-8) [facility] GLUCOSE (AUTOMATED)2022-06-14 17:20:45 Test Item Value Reference Range Interpretation Comments POCT GLU (test code = 1059591691) 137 mg/dL 70-110 H Lab Interpretation (test code = Abnormal 73807-9) [facility] and Screen - ONCE [id number] 14:37:20 Test Item Value Reference Range Interpretation Comments ABO & RH (test code O POSITIVE Performe d at [facility] = 20) Laboratory [facility] Blood [address] [address]Avpf Free: [phone] A No. [id number] IAT (test code = Negative Performed a t [facility] 1185) Laboratory [facility] Blood [facility] [place] [address]Mvvc Free: [phone] A No. [id number] [facility] and Screen - ONCE [id number] 14:37:20 Test Item Value Reference Range Interpretation Comments ABO & RH (test code O POSITIVE Performe d at [facility] = 20) Laboratory [facility] Blood Bank[address] [place] [address] s [id number] Free: [phone] A No. [id number] IAT (test code = Negative Performed a t [facility] 1185) Laboratory [facility] Blood [facility] [place] [address] s [id number] Free: [phone] A No. [id number] [facility] and Screen - ONCE [id number] 14:37:20 Test Item Value Reference Range Interpretation Comments ABO & RH (test code O POSITIVE Performe d at [facility] = 20) Laboratory [facility] GAL Blood Bank3 [address] [facility] s [address]Vdku Free: [phone] A No. [id number] IAT (test code = Negative Performed a t [facility] 1185) Laboratory Serv [facility] Blood Bank3 [address] [facility] s [address]Yzxf Free: [phone] A No. [id number] [facility] GLUCOSE (AUTOMATED)2022-06-14 13:56:39 Test Item Value Reference Range Interpretation Comments POCT GLU (test code = 0696858529) 154 mg/dL 70-110 H Lab Interpretation (test code = Abnormal 84954-0) [facility] GLUCOSE (AUTOMATED)2022-06-14 13:56:39 Test Item Value Reference Range Interpretation Comments POCT GLU (test code = 3200571561) 154 mg/dL 70-110 H Lab Interpretation (test code = Abnormal 44819-1) [facility] GLUCOSE (AUTOMATED)2022-06-14 13:56:39 Test Item Value Reference Range Interpretation Comments POCT GLU (test code = 3086050448) 154 mg/dL 70-110 H Lab Interpretation (test code = Abnormal 02528-0) [facility] GLUCOSE (AUTOMATED)2022-06-14 13:17:42 Test Item Value Reference Range Interpretation Comments POCT GLU (test code = 5930077436) 68 mg/dL 70-110 L Lab Interpretation (test code = Abnormal 48824-2) [facility] GLUCOSE (AUTOMATED)2022-06-14 13:17:42 Test Item Value Reference Range Interpretation Comments POCT GLU (test code = 9934139462) 68 mg/dL 70-110 L Lab Interpretation (test code = Abnormal 64771-3) [facility] GLUCOSE (AUTOMATED)2022-06-14 13:17:42 Test Item Value Reference Range Interpretation Comments POCT GLU (test code = 9946714882) 68 mg/dL 70-110 L Lab Interpretation (test code = Abnormal 64557-7) [facility] GLUCOSE (AUTOMATED)2022-06-14 12:09:13 Test Item Value Reference Range Interpretation Comments POCT GLU (test code = 5810044578) 68 mg/dL 70-110 L Lab Interpretation (test code = Abnormal 43579-6) [facility] GLUCOSE (AUTOMATED)2022-06-14 12:09:13 Test Item Value Reference Range Interpretation Comments POCT GLU (test code = 9247168869) 68 mg/dL 70-110 L Lab Interpretation (test code = Abnormal 85167-3) [facility] GLUCOSE (AUTOMATED)2022-06-14 12:09:13 Test Item Value Reference Range Interpretation Comments POCT GLU (test code = 4437546813) 68 mg/dL 70-110 L Lab Interpretation (test code = Abnormal 41232-5) [facility] GLUCOSE (AUTOMATED)2022-06-14 03:14:57 Test Item Value Reference Range Interpretation Comments POCT GLU (test code = 8334433757) 182 mg/dL 70-110 H Lab Interpretation (test code = Abnormal 37805-9) [facility] GLUCOSE (AUTOMATED)2022-06-14 03:14:57 Test Item Value Reference Range Interpretation Comments POCT GLU (test code = 2127008197) 182 mg/dL 70-110 H Lab Interpretation (test code = Abnormal 06646-8) [facility] GLUCOSE (AUTOMATED)2022-06-14 03:14:57 Test Item Value Reference Range Interpretation Comments POCT GLU (test code = 8852306838) 182 mg/dL 70-110 H Lab Interpretation (test code = Abnormal 56945-1) [facility] GLUCOSE (AUTOMATED)2022-05-04 02:42:11 Test Item Value Reference Range Interpretation Comments POCT GLU (test code = 1777339538) 134 mg/dL 70-110 H Lab Interpretation (test code = Abnormal 88792-0) [facility] GLUCOSE (AUTOMATED)2022-05-03 22:29:04 Test Item Value Reference Range Interpretation Comments POCT GLU (test code = 9031359318) 148 mg/dL 70-110 H Lab Interpretation (test code = Abnormal 70958-5) [facility] GLUCOSE (AUTOMATED)2022-05-03 20:28:48 Test Item Value Reference Range Interpretation Comments POCT GLU (test code = 9831692151) 53 mg/dL 70-110 L Lab Interpretation (test code = Abnormal 20099-1) [facility] GLUCOSE (AUTOMATED)2022-05-03 03:10:42 Test Item Value Reference Range Interpretation Comments POCT GLU (test code = 4806921324) 99 mg/dL 70-110 Lab Interpretation (test code = Normal 94001-2) [facility] GLUCOSE (AUTOMATED)2022-05-02 17:34:42 Test Item Value Reference Range Interpretation Comments POCT GLU (test code = 3596140646) 136 mg/dL 70-110 H Lab Interpretation (test code = Abnormal 52085-5) [facility] GLUCOSE (AUTOMATED)2022-05-02 14:28:23 Test Item Value Reference Range Interpretation Comments POCT GLU (test code = 8327539462) 109 mg/dL 70-110 Lab Interpretation (test code = Normal 87079-6) [facility] GLUCOSE (AUTOMATED)2022-05-02 02:07:55 Test Item Value Reference Range Interpretation Comments POCT GLU (test code = 5701582574) 119 mg/dL 70-110 H Lab Interpretation (test code = Abnormal 83538-2) [facility] GLUCOSE (AUTOMATED)2022-05-01 23:37:01 Test Item Value Reference Range Interpretation Comments POCT GLU (test code = 116 mg/dL 70-110 H Notifi ed Provider [id number]) Lab Interpretation (test Abnormal code = 81637-9) [facility] GLUCOSE (AUTOMATED)2022-05-01 19:33:03 Test Item Value Reference Range Interpretation Comments POCT GLU (test code = 114 mg/dL 70-110 H Notifi ed Provider [id number]) Lab Interpretation (test Abnormal code = 07621-2) [facility] METABOLIC PANEL (NA, K, CL, CO2, GLUCOSE, BUN, CREATININE, CA)2022-05-01 11:15:51 Test Item Value Reference Range Interpretation Comments NA (test code = 128 mmol/L 135-145 L 8556865531) K (test code = 3.9 mmol/L 3.5-5.0 8117626335) CL (test code = 92 mmol/L 98-108 L 7411966030) CO2 TOTAL (test code = 29 mmol/L 23-31 6465486088) AGAP (test code = 2-16 2958609468) BUN (test code = 34 mg/dL 7-23 H 2962522787) GLUCOSE (test code = 122 mg/dL 70-110 H 2400818164) CREATININE (test code = 5.81 mg/dL 0.60-1.25 H 7421651374) CALCIUM (test code = 9.3 mg/dL 8.6-10.6 9048092126) eGFR (test code = mL/min/1.73m2 1059274888) MARINO (test code = MARINO) Association of [...] tests). Lab Interpretation Abnormal (test code = 04616-4) [facility]20[facility] 11:15:51 Test Item Value Reference Range Interpretation Comments MAGNESIUM (test code = 6893544285) 2.6 mg/dL 1.7-2.4 H Lab Interpretation (test code = Abnormal 03873-6) [facility]2022-[facility]-16 11:15:51 Test Item Value Reference Range Interpretation Comments PHOSPHORUS (test code = 7574634817) 4.5 mg/dL 2.5-5.0 Lab Interpretation (test code = Normal 27026-7) [facility] CampusCBC WITHOUT [id number] 10:39:07 Test Item Value Reference Range Interpretation Comments WBC (test code = 6690-2) See_Comment [A utomated message] The system [employer] generated this result transmit rudolph reference range : 4.20 - 10.70 10*3/?L. The reference range was not used to interpret this result as normal/abnormal . RBC (test code = 789-8) See_Comment L [Au tomated message] The system [employer] generated this result transmit rudolph reference range [...] 777-3) See_Comment [Au tomated message] The system [employer] generated this result transmit rudolph reference range : 150 - 328 10*3/?L. The reference range was not used to interpret this result as normal/abnormal . MPV (test code = 11.0 fL 9.8-13.0 11663-8) RDW-CV (test code = 15.3 % 12.1-15.4 788-0) RDW-SD (test code = 50.4 fL 38.5-51.6 14868-8) NRBC x10^3 (test code = See_Comment [Au tomated message] 7150229759) The system [employer] generated this result transmit rudolph reference range : 10*3/?L. The reference range was not used to interpret this result as normal/abnormal . NRBC/100 WBC (test code See_Comment [Au tomated message] = 2508367541) The system [employer] generated this result transmit rudolph reference range : 0.0 - 10.0 /100 WBC s. The reference r adama was not used to interpret this result as normal/abnormal . IPF % (test code = 8574465186) Lab Interpretation (test Abnormal code = 09662-6) [facility] GLUCOSE (AUTOMATED)2022-05-01 01:09:21 Test Item Value Reference Range Interpretation Comments POCT GLU (test code = 5402955536) 68 mg/dL 70-110 L Lab Interpretation (test code = Abnormal 36244-9) [facility] GLUCOSE (AUTOMATED)2022-04-30 21:04:09 Test Item Value Reference Range Interpretation Comments POCT GLU (test code = 75 mg/dL 70-110 Notifi ed Provider [id number]) Lab Interpretation (test Normal code = 28133-6) [facility] GLUCOSE (AUTOMATED)2022-04-30 17:42:13 Test Item Value Reference Range Interpretation Comments POCT GLU (test code = 107 mg/dL 70-110 Notifi ed Provider [id number]) Lab Interpretation (test Normal code = 00638-9) [facility] GLUCOSE (AUTOMATED)2022-04-30 13:50:31 Test Item Value Reference Range Interpretation Comments POCT GLU (test code = 92 mg/dL 70-110 Notifi ed Provider [id number]) Lab Interpretation (test Normal code = 86112-6) [facility] GLUCOSE (AUTOMATED)2022-04-30 01:29:31 Test Item Value Reference Range Interpretation Comments POCT GLU (test code = 1363263025) 107 mg/dL 70-110 Lab Interpretation (test code = Normal 06031-5) [facility] GLUCOSE (AUTOMATED)2022-04-29 20:55:32 Test Item Value Reference Range Interpretation Comments POCT GLU (test code = 9562128286) 80 mg/dL 70-110 Lab Interpretation (test code = Normal 94410-4) [facility] GLUCOSE (AUTOMATED)2022-04-29 13:59:58 Test Item Value Reference Range Interpretation Comments POCT GLU (test code = 0636250715) 70 mg/dL 70-110 Lab Interpretation (test code = Normal 15496-1) [facility]2022-04-29 02:51:57 Test Item Value Reference Range Interpretation Comments POCT GLU (test code = 1513438843) 90 mg/dL 70-110 Lab Interpretation (test code = Normal 90324-5) [facility]2022-04-28 21:30:52 Test Item Value Reference Range Interpretation Comments POCT GLU (test code = 113 mg/dL 70-110 H Notifi ed Provider [id number]) Lab Interpretation (test Abnormal code = 81297-6) [facility] GLUCOSE (AUTOMATED)2022-04-28 17:28:27 Test Item Value Reference Range Interpretation Comments POCT GLU (test code = 108 mg/dL 70-110 Notifi ed Provider [id number]) Lab Interpretation (test Normal code = 07223-4) [facility] GLUCOSE (AUTOMATED)2022-04-28 13:57:06 Test Item Value Reference Range Interpretation Comments POCT GLU (test code = 88 mg/dL 70-110 Notifi ed Provider [id number]) Lab Interpretation (test Normal code = 85982-1) [facility] GLUCOSE (AUTOMATED)2022-04-28 03:36:17 Test Item Value Reference Range Interpretation Comments POCT GLU (test code = 9213638307) 103 mg/dL 70-110 Lab Interpretation (test code = Normal 10172-2) [facility] GLUCOSE (AUTOMATED)2022-04-27 23:21:09 Test Item Value Reference Range Interpretation Comments POCT GLU (test code = 2995716541) 71 mg/dL 70-110 Lab Interpretation (test code = Normal 83743-6) [facility] GLUCOSE (AUTOMATED)2022-04-27 23:02:58 Test Item Value Reference Range Interpretation Comments POCT GLU (test code = 0300758901) 66 mg/dL 70-110 L Lab Interpretation (test code = Abnormal 23963-6) [facility] GLUCOSE (AUTOMATED)2022-04-27 18:06:34 Test Item Value Reference Range Interpretation Comments POCT GLU (test code = 3919605825) 75 mg/dL 70-110 Lab Interpretation (test code = Normal 34992-2) [facility] GLUCOSE (AUTOMATED)2022-04-27 13:23:55 Test Item Value Reference Range Interpretation Comments POCT GLU (test code = 4771566838) 70 mg/dL 70-110 Lab Interpretation (test code = Normal 12393-5) [facility] GLUCOSE (AUTOMATED)2022-04-27 02:11:35 Test Item Value Reference Range Interpretation Comments POCT GLU (test code = 3516873645) 100 mg/dL 70-110 Lab Interpretation (test code = Normal 11862-8) [facility] GLUCOSE (AUTOMATED)2022-04-26 23:13:24 Test Item Value Reference Range Interpretation Comments POCT GLU (test code = 120 mg/dL 70-110 H Notifi ed Provider [id number]) Lab Interpretation (test Abnormal code = 01617-7) [facility] GLUCOSE (AUTOMATED)2022-04-26 20:31:29 Test Item Value Reference Range Interpretation Comments POCT GLU (test code = 77 mg/dL 70-110 Notifi ed Provider [id number]) Lab Interpretation (test Normal code = 41096-7) [facility] GLUCOSE (AUTOMATED)2022-04-26 15:28:09 Test Item Value Reference Range Interpretation Comments POCT GLU (test code = 1612032270) 86 mg/dL 70-110 Lab Interpretation (test code = Normal 73826-8) [facility] GLUCOSE (AUTOMATED)2022-04-26 01:53:21 Test Item Value Reference Range Interpretation Comments POCT GLU (test code = 5711733900) 136 mg/dL 70-110 H Lab Interpretation (test code = Abnormal 04243-5) [facility] 22:35:47 Test Item Value Reference Range Interpretation Comments POCT GLU (test code = 9712489252) 140 mg/dL 70-110 H Lab Interpretation (test code = Abnormal 86201-1) [facility] GLUCOSE (AUTOMATED)2022-04-25 18:11:27 Test Item Value Reference Range Interpretation Comments POCT GLU (test code = 9513723803) 138 mg/dL 70-110 H Lab Interpretation (test code = Abnormal 93567-5) [facility] GLUCOSE (AUTOMATED)2022-04-25 14:25:21 Test Item Value Reference Range Interpretation Comments POCT GLU (test code = 6186484253) 114 mg/dL 70-110 H Lab Interpretation (test code = Abnormal 94182-2) [facility] GLUCOSE (AUTOMATED)2022-04-25 04:01:33 Test Item Value Reference Range Interpretation Comments POCT GLU (test code = 7223822169) 104 mg/dL 70-110 Lab Interpretation (test code = Normal 86819-7) [facility] GLUCOSE (AUTOMATED)2022-04-25 02:47:09 Test Item Value Reference Range Interpretation Comments POCT GLU (test code = 1766071920) 96 mg/dL 70-110 Lab Interpretation (test code = Normal 25869-8) [facility] GLUCOSE (AUTOMATED)2022-04-25 02:08:15 Test Item Value Reference Range Interpretation Comments POCT GLU (test code = 0776972355) 58 mg/dL 70-110 L Lab Interpretation (test code = Abnormal 20174-2) [facility] GLUCOSE (AUTOMATED)2022-04-24 22:30:29 Test Item Value Reference Range Interpretation Comments POCT GLU (test code = 9436186759) 182 mg/dL 70-110 H Lab Interpretation (test code = Abnormal 61973-2) [facility] GLUCOSE (AUTOMATED)2022-04-24 19:18:06 Test Item Value Reference Range Interpretation Comments POCT GLU (test code = 5422575505) 99 mg/dL 70-110 Lab Interpretation (test code = Normal 95798-4) [facility] DIALYSIS [id number] 19:09:28 Test Item Value Reference Range Interpretation Comments PostBUN (test code = 8698146542) 9 mg/dl 7-23 Lab Interpretation (test code = Normal 85592-4) [facility] GLUCOSE (AUTOMATED)2022-04-24 18:07:17 Test Item Value Reference Range Interpretation Comments POCT GLU (test code = 0850464054) 88 mg/dL 70-110 Lab Interpretation (test code = Normal 55262-8) [facility] GLUCOSE (AUTOMATED)2022-04-24 15:28:40 Test Item Value Reference Range Interpretation Comments POCT GLU (test code = 0727395888) 78 mg/dL 70-110 Lab Interpretation (test code = Normal 70542-5) [facility] GLUCOSE (AUTOMATED)2022-04-24 01:29:30 Test Item Value Reference Range Interpretation Comments POCT GLU (test code = 1574978340) 103 mg/dL 70-110 Lab Interpretation (test code = Normal 28382-8) [facility] GLUCOSE (AUTOMATED)2022-04-23 22:18:03 Test Item Value Reference Range Interpretation Comments POCT GLU (test code = 110 mg/dL 70-110 Notifi ed Provider [id number]) Lab Interpretation (test Normal code = 69458-6) [facility] [id number] 19:22:04 Test Item Value Reference Range Interpretation Comments Case Report (test code Surgical Pathology ? ? = [id number]) ?Case: [id number] ? Authorizing Provider: ?Delfino Granado MD ? ? ?Collected: ? 04/17/2022 1242 ?Ordering Location: ? ? [facility] OR ? Received: ?04/17/2022 1450 ? Department ? Pathologist: ? Tonie, ? MD Ashwini ?Specimen: ? ?LEG, RIGHT, BELOW KNEE ? Final Diagnosis (test y9kkcTYdBUHjm7ehGYNytM code = 3454576295) FuZzEwMzNcZnRuYmpcdWMx IHtccnRmMVxlcGljMTAxMD GjOC9hhEifyBt7pTexDXEv vhN8cEFhFHhwo5bzYSR9l9 zgolppUKCwYXqtOw2syLVt qRixGzSxGEBxCNl7sO23PF JegF6vnYJdAVw1STSowKHb qjOjSpCyNDRzcUQeoJL3OQ SmKM6jmqghEQjeMZbaIVBh qrI6JHChiUNvU0TaUNGbCO 6lpgrcKCS9OSymIASpBCY6 LcMwYPRlt9Mxfue9SySjyR FyZFxwbGFpblxmczIwXHBh biuoNJDwYG7WEMceTBIVA6 hULCBCRUxPVyBLTkVFIEFN KNTYRSJKF660MFZgroLzOG IvOO0cK9NLR7WGPu5LIyIQ ETUPY5FHYuXITmBZI7iCQD EAVLYUH1WQUFSZS4TXQCWm iAZoUMMaDZJlUTQFF52OZW hXIUcqZUWOR3LVKZUQNWsw YXIgICAgICAtIEFUSEVST1 RRUXBOT8YZHkITIRCSAXdV WmFXQS4OGpVTUEXBUG9TW1 lTIFVQIFRPIDkwJSBBVCBU IRXjAVSTS5gGOHMbgbIgYZ HjVB8yZHITFLtTBKtROR5N Tu0PPCUEDCTcK64XIRVROJ HLWEAfN1EGT1eNFXwpWCCY O4iCR3wiZLRmBIRaVSVmMG SSAuXaOvZYCWMPQG4AME6A UkdJTiBJUyBORUdBVElWRS WPE5CaW6OMSB1XTZASMGUV Q2doKMBcsXWbCNRwJuNqTV YhtKirWC0cX0gccwifVG9W IDExLzgvMjAyMiAxMDoyNS BBTVxwYXJcZnMyMFxwYXJ9 y8urcQZiMCHnjXGpUyNcQQ CbKUIro4hnIYMmaXNkLyEg MzNcZnRuYmpcdWMxXGRlZm Omf3lce300eFQpw5qvKXGc FoX6cIXeSABpjGxpnyk4mM umVdPcCCBli6jxhvUdSdSq TSUzZAKcEKFxgCXvG373CY SoFPiek3kfg2BiMJJsaRQw g8J6IDSAQCprSoSeR419a2 jwq8nxzvPvhXB6XCVhOLZ6 TRzkxjBlioU6ZCrdfXNwCv O6JErylaUcYDkayfTirfRs Zwf9UKXvP342SML2kBdce2 cjVVM3UPTkJZVnUcaxPg0f zPCgZ824XJBeCPRWLDKlrH o2YLCzxfIhxtGsdGHFd002 T391o2skHAEwpmVwhBvJoc yvf4xcG134KVPpvDTrfdAs UlLiAULcuUQycDQ8EJPvNY 6vqmgjFEtxYVypOYOmuqP5 GEXytYNqA0HkIDMlXV5nzw zbJWM9OOmfWBAuEWA4EkHs ZYHtm9Irlrt5EvHpad4mjy 66WZB3j9LtpVxtIMH4UMO7 SbUqLm2qgJSqTCJkDG1jRp BmkVChKSSong40rWlzODhi llQgfR2nRlNzMSGzaPYbQN LgEM6buQHgGJGkvP2jwodb XHBnYnJkcmhlYWRccGdicm GqWt4odBatGMU4VNafC6si sE6pLvX4RYpzI1jckD5dEZ h2IOieoDF3BSHkvK7xAM5f dqkhf5ilSUoeXWleHSCjdg H6eqS6ALDjrQFmE9FwtZ1o AYXtIV4isyeau1hrDPA3SI juORJnMUO1AbMaJNVfi1Cj tai4JzFkk2WrsEXvTUsaS8 4re758ZKVsjyVoH3fjiIXt kzailTUxpxlcNJmsniC8NO FsXHBsYWluXGYxXGZzMjBc bGFuZzEwMzNcaGljaFxmMV zfZdBoIREnPKjrX4jvDbGr L9TyRYUwXuExuQYbDQputK X8AXLdVJAtc97mxVc9WOUq gxtes3FiIUQnjRXmzMZagF 1ocjQag9zuJRSfGJRqAGUh A8IlDLN2vSEqJLGejUFupZ B4ZO5tuiPzVG8dJBYlDibq cmVzaWRlbnRzLCBmZWxsb3 kjFV1mFUMjmZyldV6qqJZ0 FMRlk7kctHVqdORxf5sxm9 UgbmFtZShzKSBtYXkgYXBw ADCaZD9hYEKyzSIlnyCyg1 B8JlyatOEedetyUkvalyQ6 VUqhqvrgDMBaKRcuK3weHs TiMVZafEvuUrbvp6TzXRBr XGZzMjhccGFyfX0= Clinical Information PAD (peripheral artery (test code = disease) [I73.9] [id number]) Gross Description (test i9assZLjLFAagIQtIHEwDC code = 5404349951) kodrPmNGKyhNUfA6Vjhkea USlrPA1qRW6rsWtdzLEceG MnWGGqTfHlo1xyv193xBXc p6lvBSKUxeqjqZp7mDwjU5 5di9S7PianL43akYTmPMK6 SRJyDXOroSEzADWtHGQ6FR AttKKhD2utQRBcIC2mddzf LZgaZXayKJCntHV1GMPbkX HpP3YqALLaZBmtMJFbxdi6 LwSjUv8whQKfvJlrGZzhGr ixfFdtb3ZqwEGqZOfyMIOl OVDqVPmawvygLYi6BEJjJV vsyKPySJ3pxCheIrxykCty b7DpgCLlKSfiJYOtWZBbBV ktZNByL7XEJLLpNMJcXbYx ZLAyZGn4QCpdT4YAUMUoGH ZmJOq8DQkmLeS4SEg1YQQP Vf4tKAU0MjitQsC6VkB2OP ExNiBcXHQgMiBcXGZsIFxc ZiBBcmlhbCBcXGZzIDEwIF sdmwG5WMPuodUcfVraiS5i VeIpMORPQZIZAR8ZVmZZIQ BhclxmczIyIFNwZWNpbWVu GYOcjZYcboAtQOf9BYLkOz Dfi7otpI4iGYExRQNmTqrc wDC2WITnCPGlEtWdZSMetG VkIHdpdGggdGhlIHBhdGll msLotwAcXJ0oNGTTHVSjsE 0kPIQnHgVhHMipZWNjJ8v0 TZXhXQgwkb2sgqNhMtxkBD 2lOVKbhpPwn8IlDI7pNGMp M3YwhP2lfu46spCvpLsfuQ RwDTvydaC6tUTot42qUKVo lZV3vBJ7kJ6mUOAyVBYzbC SlKGdbHBBzT4Xlv05gnLQa E6wuKKEjVTslZNeyRoPmKP UboBcrcTPgdD57nm26a1Yx DrOqQPQtqGbpv0l9pTAvHN KpKMQxnSmspGPqfwGyA6Ti UNZpOOLwS8Ucm73ypLVuC2 lxDZTqns88B1nueHeoHJDv VnvyTBFsMWFwfWZ2zKGoAY FIcWTbFr1xBAHzFKHaP1Do y22eqVCzZ2pmYGR5pVOaBF UcSv71CJIhQJApw4bbiHGk IHRvIHRoZSBhbnRlcmlvci Uwz5qdMIPcRNMuo6X1IRIr a5J1UNJbAUGaG3Hev17ihR QoZ5shOHNbPASdMK4tQLZk HQSgs7owhKRbIAFlHWVlTQ Jcc2F6ZTYec4Qkc9rrreGb onGmu08vzPW5tLRpzPBksg VzOAA7bH3hWV4pepfowc9a HVEmOSTaf372EXdqooZaKI 4ynMlvFvCbhxvxXjR9z1Ju QOBtKGeeW5u0YTHhaDcaYW RoaXJkLWZpZnRoIHRvZXMg j2dlW0utuGP1TYW4uPbwtc lyliJcQ4YzLVBzet25IIbs c6cufcUzdXLjHRNUoXFdVH DhouAcRGNpwL3hRYVuLFI4 QWb6ByFatXE7CoRnE31lVA lenGtvr7hlK1n0cImpgKao ZXJhdGVkIGJvcmRlcnMgYX NlsQvlDZBlzdU2ZVNoNWGj SEQgwmOwFUqiaFIqNF3snP RhdGlvbiBzaXRlIHdpdGgg AMgvp7IuFKD0PW3kvLBzwV 39DJSpeXfrxAf5ISdzgE9s gsmqZ3cbXEAhLkPbnAjdf3 VlLiAgVGhlcmUgaXMgYSBs kO3kROIxDJP2nfqkV4ReNH lnw6ywhrVzJDVlQfI1WEFn YZFfwNfor62kdVcvIU1wCE mtjJZpgGPtMSTjFX5uEDRs TVU6mMUoyfDtATmuh1ofQ5 tcbL21r6p9JKPnnLvaYGTf mK8jouJkEIT6wJ0tEK7gpz dtozXjbfOddLKxg7HvYYMb Sd4qSGVfZMZki29scKoqVL KpwbJwgePiSDS6dJ2uUF8q fzpihi8yCXI1OXRnXPQuFZ FnC5Fdg49gvCFmK9snHFDa HONsfcEzewcxhpM5aAXhFO mbSKG4JMN8ULpnQIQywINz rWL2hVVer9Z5LCTpmHPtGa lsLGVtn55rVA9bYYObKTPw t4E5KDYdb2OcwKjpcAOmNB HyfRIbuCHdBGVwCJVbpi10 jK4zgMCzcQU0YINov5Czpv 8jcOWiUM8oECIsGLOiSKkt UPScf3oxjTrpkOxqSZTugp RpYWwgdHVidWxhciBncmFm aFWwlEQ2lCMqsT6ngIIzwE 0yDXPaKxrhuVPrNHRjZ4Yi s21soMPjB6vkVhRvGLDuqa IqFNEkYVggtTShKQB4bZ4z zD0nXIYySYGnvaNjiqnxbj G9zUIiYUvlOXS8CKR9MHfy WUBncKHhkFZ7bYJdi2M0FA TjsOKtUdevKBQlg89hLBMb GOA7qRIxuD4sxWMceG2uCI RpYmlhbCBhcnRlcnkgaXMg B2NeJ6idyYFeHHTdSINqQZ AwUBDkIPZ6WE8av4xlCjKb RmJrjhMnIX30XAVbedCeq5 EusAltxhDlBHBzKRX7Qg2s rRDrFGNpsrBIIV9CZxrpIt 5orY99aB3eXAHxA9GmR7xj aWNhdGlvbiBvZiBBMiwgQT QkMBH9OGFcmjRrXSwjLDFw xyodCLIoBG6sXIAmTJS7BY HxyKDhMQ85HOEwe8RmgJva aWFsIGFydGVyeSwgYmxhY2 edxS2toAMcmQ0oYVStBulh bCBhcnRlcnlccGFyXHBhci VRYNA3iS6jAESpHEF5MMEi tdHELZpxH4wefvGcptJgd7 7kkHV4eZGjxBWspeNbIEO3 jF9aKO7xkgdfvbxcWI2rCc JvPJtayaOrxtYnQO28QXAl sdEyXFNgVAqcF4z5EZVyoH arAUBsCIybd7uozykzQTLt TTTeKCV2WPSmFexsLDIrn2 PgaYfxkoYvRZQcmC0hBOQc c9YkyNBvIXXdacQbAKVyJM BlbnRpcmVseVxwYXIgQTQ6 XODauKQqaT6iEVNmPSGwd5 P1MTGgm7LkqXukuKTvHGKg kCHqnBEvDAJwR7Umu15geZ YeB7ile5sbKVFiPSG1NSKu bOAgqT1mXSFsYFIca6H5HD Yzq0YohFuydTAnCJDaxWVn aWVzLCByZXByZXNlbnRhdG q8TKsfGWSpAJX4MFhpccCd xpWqWUAzl35sJE7uZORvnL Qbe2NutXA0nYSuEOCgN2Fq b69zGvGxbPSreOEwiJHvbT fnxBFmlOY3zOE1lQ5cCUNv bLUpVDZxqSThn4MvvLR5hK GqKYMimcUIVnwkOl0jAHDo gs3kMUVmwkU8CZIwUOArHW RhxyAzGAneaGXgMG6jmYKl dGlvbiBzaXRlcywgcmVwcm TxMS80TIZacsTsdLJwENVb zjPEFLJ0ZQIiyfHwmAxfAH PGXGZmAEQJKSg6OVOoqTUi YPA3QQ8vmUhnXDLjR0BvG0 AhoqU0WIYsax4= Disclaimer (test code = k6jdoUSwGEHag8flKGGpvG [id number]) FuZzEwMzNcZnRuYmpcdWMx UQfpdgMwXIkxc6XiF9HfPj AwMFxhbnNpXGRlZmxhbmcx IABsINP5kqUyYVDxBBjnRC IhKRswKn4ofATdhLiaKjTb GOJpi7pggiCDJObgUjQeA8 71JKQzOAvuq6leh1RzORIl gVYqe7B8IOFEmjrqlSn8mI jlO52uv0D9EnjxQ1diMRCi WDFzT6LmAK9mHKSvRbx2JY U6PLT4VIXbBYPwV6LdXX4f LPSwmLLaMMq5e6oidOnrWG DjZUF6a0kdEYnnvhTaYA7d cp6auKd0i9fmrmZaZTYmMU LxoIYEKJPnO2VcvTyrLh4r dRz8yAxnBzbiOLR9Ljn8PK 7tbg35svm0rGzlVFTkgahe JuP5RVwhGJZzymmlEHc6PF fhXEOgjZS6LWYvwULwY0Mt RNSfVN7moxp0UFG4NRfvTW ClOyI4KSNhkRCuQSVnxPxg RMlbb398SXV4ScGbWQ2pA4 Skr9D5cM5ifJLvIPQgmSDk KiWrNMUnex8opGUhKTzel1 LhJGQ6edQ4sLTqaOWiYOGp FR17Qstfv2GjCbfza6ZkV0 6haSZ7WFfyn9xeKN8pZsZ5 qsIxDKbee4wvcS1wFoA2HT owKC8bYD4nGMDmjM9jptez XHBnYnJkcmhlYWRccGdicm MrMt7jnRvlMZC1AMwyJ8hc iT6rGiZ1MNyhL2wwyI3nHY s4LJchyZD3CWVvjO1sND0j rofvo9hkYFhiPUisTPJvfb W8dkL6UHDhlYLfD6LvmU3v JVQvHX9nyqjgu5byBAJ3IZ oyDLCzWAC5DfQyPLRdv8Jd dql6IzFss1MppGNiLZqkJ5 8gm492MXDpcmMpX4bbyOKp tmifxERxhqfpVQusbjE7NJ YhzvYar3KfJHVvQID2MAow FUkiyRPzNVNgcKhbn5xuX2 RscGFyXHBsYWluXGYxXGZz MjBcbGFuZzEwMzNcaGljaF wzTSibTvVsVNZcJCbvW3nt ZxMmI8FdLWGiQrPqzQLgI8 ggVGhpcyByZXBvcnQgbWF5 HMntB2q0YZTkthSvpXj1jd KfZvArPXCcISH0LAqbjQFk IBPhh4HrqojaaKIeGo9kwO VuBQYwyZ8gNORiWPPaKEbc UJ3osPa8KHWEkDDlqSPxVj UJYYPwUW27wvQcFNRYkgmu w0V7WSwgFSGpp1LehTHuP5 ksn8IcHULlz65vBW7ya0I2 o1trZHU4AU2xv0NzGEFojD LmyUAhHCZhx1Kccyhvj8Vh ZHXhjxFlh0JnLCMivpGniI NrCGQlrsGjlx7yluUtPYFe DGIpR2GbihwqnGejjkEeTO Ugvx0oepOiZQY1SPCUHDDu EECxe3PsvC7xoNFZLUH0rJ Aeyg5wlwEVtLAsKPXipc50 TOQkBF9eH4nqAFRtEAHtmj KorBAeu9YoSNKolYE7fBUy UY0QKvMCb95tSPElCMOIjb VkIDLlwPbmqKV5dwH8sH0t IChGREEpLlx+IFRoZSBGRE QrKL3rjpIxf2VmmjKdyItw OUSwvAUoh7TuxMUrn7FdpM vwp3ImmVJucJEiCC2pHSJa clxwYXIgVVRNQiBMYWJvcm J8r6DwYYHgSVAtFCY9qJsq tgu6PRFhyH9hTUNbD3ghuj jhSNvaBEYqt8LeuF2qnHYV vNGtj5UnbADjlQTZkQYdZL 0cxdPwVPoCDKlUASD6niWs QXMlu8NyGYuwJ3peL84afV gekFw3eQQ2NBJ0xP9fAat+ IFxwYXJccGFyIEFwcHJvcH BlDFTgdZmnapUnK5NdriHm lZ2dwVPyfwQaWO4lJV4qF4 K0zEXzZNVezjTxy2kdOIkw dmUgYmVlbiByZXZpZXdlZC Vzj3DgHMkfVZX9YTrtysVd bmNsdWRpbmcgSCZFLCBTcG AysVFmAFT4CAiykvXantPl JR9xsY1ouHvthB4jsKJleK G9ajftQUWrJUJoiVziKCPk JA6enHUrTDVnjaAEdOclvJ PsmT8sH3HnHETxZXCpet4a PENbbH5xJPfbf3AjdmpvJD XkOJGqWJGdxgBnmt0iEZAh ySTLYV9BOBukpMHkl9Eyte PfK1qZIDM9UPDfXgDrEnac TYWtkJFzoORlNTMhyt63BV DlqZ0pyWivDYWqpY9kjW1u cZxegK3fPcCyFuOwPKgwPU 5dPJLkS2pzgZBlCDPyGOKt D8waNoEgxP2lcSogWTuyMy SkVdJiZTgbUGX4oS== Embedded Images (test code = 4546150076) [facility] GLUCOSE (AUTOMATED)2022-04-23 18:05:58 Test Item Value Reference Range Interpretation Comments POCT GLU (test code = 206 mg/dL 70-110 H Notifi ed Provider [id number]) Lab Interpretation (test Abnormal code = 29694-3) [facility] GLUCOSE (AUTOMATED)2022-04-23 14:20:45 Test Item Value Reference Range Interpretation Comments POCT GLU (test code = 89 mg/dL 70-110 Notifi ed Provider [id number]) Lab Interpretation (test Normal code = 37373-6) [facility] 03:33:37 Test Item Value Reference Range Interpretation Comments POCT GLU (test code = 6501740438) 99 mg/dL 70-110 Lab Interpretation (test code = Normal 98897-4[facility]:30:44 Test Item Value Reference Range Interpretation Comments POCT GLU (test code = 115 mg/dL 70-110 H Notifi ed Provider [id number]) Lab Interpretation (test Abnormal code = 58044-1) [facility] 15:03:57 Test Item Value Reference Range Interpretation Comments POCT GLU (test code = 7948271513) 124 mg/dL 70-110 H Lab Interpretation (test code = Abnormal 92941-6) [facility] 13:37:02 Test Item Value Reference Range Interpretation Comments POCT GLU (test code = 98 mg/dL 70-110 Notifi ed Provider [id number]) Lab Interpretation (test Normal code = 30732-1) [facility] 02:46:57 Test Item Value Reference Range Interpretation Comments POCT GLU (test code = 8623879100) 86 mg/dL 70-110 Lab Interpretation (test code = Normal 44011-2) [facility] 23:32:59 Test Item Value Reference Range Interpretation Comments POCT GLU (test code = 8562609894) 88 mg/dL 70-110 Lab Interpretation (test code = Normal 51816-0) [facility] 18:13:30 Test Item Value Reference Range Interpretation Comments POCT GLU (test code = 1442314449) 117 mg/dL 70-110 H Lab Interpretation (test code = Abnormal 71261-5) [facility] 15:10:33 Test Item Value Reference Range Interpretation Comments POCT GLU (test code = 5172960145) 123 mg/dL 70-110 H Lab Interpretation (test code = Abnormal 66899-7) [facility] GLUCOSE (AUTOMATED)2022-04-21 01:36:23 Test Item Value Reference Range Interpretation Comments POCT GLU (test code = 7202636402) 150 mg/dL 70-110 H Lab Interpretation (test code = Abnormal 85039-7) [facility] GLUCOSE (AUTOMATED)2022-04-20 21:16:02 Test Item Value Reference Range Interpretation Comments POCT GLU (test code = 135 mg/dL 70-110 H Notifi ed Provider [id number]) Lab Interpretation (test Abnormal code = 35894-7) [facility] GLUCOSE (AUTOMATED)2022-04-20 16:49:04 Test Item Value Reference Range Interpretation Comments POCT GLU (test code = 240 mg/dL 70-110 H Notifi ed Provider [id number]) Lab Interpretation (test Abnormal code = 22674-0) [facility] GLUCOSE (AUTOMATED)2022-04-20 14:20:01 Test Item Value Reference Range Interpretation Comments POCT GLU (test code = 5085996059) 165 mg/dL 70-110 H Lab Interpretation (test code = Abnormal 15961-6) [facility] GLUCOSE (AUTOMATED)2022-04-20 01:37:12 Test Item Value Reference Range Interpretation Comments POCT GLU (test code = 144 mg/dL 70-110 H Notifi ed Provider [id number]) Lab Interpretation (test Abnormal code = 17939-5) [facility] GLUCOSE (AUTOMATED)2022-04-19 22:33:23 Test Item Value Reference Range Interpretation Comments POCT GLU (test code = 7013551323) 98 mg/dL 70-110 Lab Interpretation (test code = Normal 91920-9) [facility] - 30 minutes after transfusion of each [id number] 22:20:05 Test Item Value Reference Range Interpretation Comments WBC (test code = 6690-2) See_Comment [A utomated message] The system [employer] generated this result transmit rudolph reference range : 4.20 - 10.70 10*3/?L. The reference range was not used to interpret this result as normal/abnormal . RBC (test code = 789-8) See_Comment L [Au tomated message] The system [employer] generated this result transmit rudolph reference range [...] 777-3) See_Comment [Au tomated message] The system [employer] generated this result transmit rudolph reference range : 150 - 328 10*3/?L. The reference range was not used to interpret this result as normal/abnormal . MPV (test code = 11.6 fL 9.8-13.0 50107-2) RDW-CV (test code = 15.4 % 12.1-15.4 788-0) RDW-SD (test code = 48.0 fL 38.5-51.6 03759-2) NRBC x10^3 (test code = See_Comment [Au tomated message] 3072674186) The system [employer] generated this result transmit rudolph reference range : 10*3/?L. The reference range was not used to interpret this result as normal/abnormal . NRBC/100 WBC (test code See_Comment [Au tomated message] = 1094863684) The system [facility] generated this result transmit rudolph reference range : 0.0 - 10.0 /100 WBC s. The reference r adama was not used to interpret this result as normal/abnormal . IPF % (test code = 4166402376) Lab Interpretation (test Abnormal code = 71750-0) [facility]-19 16:46:04 Test Item Value Reference Range Interpretation Comments POCT GLU (test code = 5173012819) 160 mg/dL 70-110 H Lab Interpretation (test code = Abnormal 49868-3) [facility] 1 Units 2022-04-19 16:38:13 Test Item Value Reference Range Interpretation Comments Cross Match Result Compatible (test code = 4409) ISBT Blood Type Code (test code = 162764) Unit Blood Type (test O Pos code = 4410) Unit Number (test [id number] code = 4411) Blood Expiration Date & Time (test code = 457032) Status Information Issued (test code = 4412) Product Red Blood Cells Identification (test code = 4413) Product Code (test B9202E19 Performed at [facility] code = 4414) Laboratory Services - [facility] Blood [address] [facility] s [id number] Free: [phone] A No. [id number] [facility]Type and Screen - ONCE Cofmoyl7037-69-39 13:53:13 Test Item Value Reference Range Interpretation Comments ABO & RH (test code O POSITIVE Performe d at [facility] = 20) Laboratory Serv [facility] Blood [facility]3 [address] [facility] [address]Mmup Free: [phone] A No. [id number] IAT (test code = Negative Performed a t [facility] 1185) Laboratory Serv [facility] Blood [facility]3 [address] [facility] s [address]Jcyb Free: [phone] A No. [id number] [facility] GLUCOSE (AUTOMATED)2022-04-19 13:09:23 Test Item Value Reference Range Interpretation Comments POCT GLU (test code = 2575878381) 133 mg/dL 70-110 H Lab Interpretation (test code = Abnormal 68571-6) [facility] GLUCOSE (AUTOMATED)2022-04-19 02:48:15 Test Item Value Reference Range Interpretation Comments POCT GLU (test code = 8351265078) 98 mg/dL 70-110 Lab Interpretation (test code = Normal 71234-3) [facility] GLUCOSE (AUTOMATED)2022-04-18 20:44:44 Test Item Value Reference Range Interpretation Comments POCT GLU (test code = 95 mg/dL 70-110 Notifi ed Provider [id number]) Lab Interpretation (test Normal code = 47868-6) [facility] GLUCOSE (AUTOMATED)2022-04-18 18:33:14 Test Item Value Reference Range Interpretation Comments POCT GLU (test code = 68 mg/dL 70-110 L Notifi ed Provider [id number]) Lab Interpretation (test Abnormal code = 87357-3) [facility] GLUCOSE (AUTOMATED)2022-04-18 18:33:14 Test Item Value Reference Range Interpretation Comments POCT GLU (test code = 68 mg/dL 70-110 L Notifi ed Provider [id number]) Lab Interpretation (test Abnormal code = 37422-9) [facility] GLUCOSE (AUTOMATED)2022-04-18 01:44:18 Test Item Value Reference Range Interpretation Comments POCT GLU (test code = 2523468147) 155 mg/dL 70-110 H Lab Interpretation (test code = Abnormal 13580-0) [facility] GLUCOSE (AUTOMATED)2022-04-18 01:44:18 Test Item Value Reference Range Interpretation Comments POCT GLU (test code = 2930812198) 155 mg/dL 70-110 H Lab Interpretation (test code = Abnormal 81310-7) [facility] GLUCOSE (AUTOMATED)2022-04-17 21:25:00 Test Item Value Reference Range Interpretation Comments POCT GLU (test code = 103 mg/dL 70-110 Notifi ed Provider [id number]) Lab Interpretation (test Normal code = 70588-7) [facility] GLUCOSE (AUTOMATED)2022-04-17 21:25:00 Test Item Value Reference Range Interpretation Comments POCT GLU (test code = 103 mg/dL 70-110 Notifi ed Provider [id number]) Lab Interpretation (test Normal code = 44529-6) [facility] WITHOUT [id number] 20:04:41 Test Item Value Reference Range Interpretation Comments WBC (test code = 6690-2) See_Comment H [A utomated message] The system [employer] generated this result transmit rudolph reference range : 4.20 - 10.70 10*3/?L. The reference range was not used to interpret this result as normal/abnormal . RBC (test code = 789-8) See_Comment L [Au tomated message] The system [employer] generated this result transmit rudolph reference range [...] 777-3) See_Comment [Au tomated message] The system [facility] generated this result transmit rudolph reference range : 150 - 328 10*3/?L. The reference range was not used to interpret this result as normal/abnormal . MPV (test code = 11.8 fL 9.8-13.0 10916-3) RDW-CV (test code = 16.2 % 12.1-15.4 H 788-0) RDW-SD (test code = 49.7 fL 38.5-51.6 94523-9) NRBC x10^3 (test code = See_Comment [Au tomated message] 1254369566) The system [facility] generated this result transmit rudolph reference range : 10*3/?L. The reference range was not used to interpret this result as normal/abnormal . NRBC/100 WBC (test code See_Comment [Au tomated message] = 9380074921) The system [facility] generated this result transmit rudolph reference range : 0.0 - 10.0 /100 WBC s. The reference r adama was not used to interpret this result as normal/abnormal . IPF % (test code = 9643362875) Lab Interpretation (test Abnormal code = 85784-8) [facility] WITHOUT [id number] 20:04:41 Test Item Value Reference Range Interpretation Comments WBC (test code = 6690-2) See_Comment H [A utomated message] The system [facility] generated this result transmit rudolph reference range : 4.20 - 10.70 10*3/?L. The reference range was not used to interpret this result as normal/abnormal . RBC (test code = 789-8) See_Comment L [Au tomated message] The system [employer] generated this result transmit rudolph reference range [...] 777-3) See_Comment [Au tomated message] The system [employer] generated this result transmit rudolph reference range : 150 - 328 10*3/?L. The reference range was not used to interpret this result as normal/abnormal . MPV (test code = 11.8 fL 9.8-13.0 01287-3) RDW-CV (test code = 16.2 % 12.1-15.4 H 788-0) RDW-SD (test code = 49.7 fL 38.5-51.6 96811-5) NRBC x10^3 (test code = See_Comment [Au tomated message] 3075009899) The system [employer] generated this result transmit rudolph reference range : 10*3/?L. The reference range was not used to interpret this result as normal/abnormal . NRBC/100 WBC (test code See_Comment [Au tomated message] = 9113100605) The system [facility] generated this result transmit rudolph reference range : 0.0 - 10.0 /100 WBC s. The reference r adama was not used to interpret this result as normal/abnormal . IPF % (test code = 0281204901) Lab Interpretation (test Abnormal code = 43376-0) [facility] 13:17:39 Test Item Value Reference Range Interpretation Comments POCT GLU (test code = 141 mg/dL 70-110 H Notifi ed Provider [id number]) Lab Interpretation (test Abnormal code = 30447-2) [facility] GLUCOSE (AUTOMATED)2022-04-17 13:17:39 Test Item Value Reference Range Interpretation Comments POCT GLU (test code = 141 mg/dL 70-110 H Notifi ed Provider [id number]) Lab Interpretation (test Abnormal code = 48883-1) [facility] GLUCOSE (AUTOMATED)2022-04-17 02:45:46 Test Item Value Reference Range Interpretation Comments POCT GLU (test code = 6144383067) 210 mg/dL 70-110 H Lab Interpretation (test code = Abnormal 52608-9) [facility] GLUCOSE (AUTOMATED)2022-04-17 02:45:46 Test Item Value Reference Range Interpretation Comments POCT GLU (test code = 5378031638) 210 mg/dL 70-110 H Lab Interpretation (test code = Abnormal 89289-7) [facility] GLUCOSE (AUTOMATED)2022-04-17 00:25:22 Test Item Value Reference Range Interpretation Comments POCT GLU (test code = 3102341363) 263 mg/dL 70-110 H Lab Interpretation (test code = Abnormal 01677-1) [facility] GLUCOSE (AUTOMATED)2022-04-17 00:25:22 Test Item Value Reference Range Interpretation Comments POCT GLU (test code = 7086322944) 263 mg/dL 70-110 H Lab Interpretation (test code = Abnormal 91718-8) [facility]22-04-16 18:23:14 Test Item Value Reference Range Interpretation Comments APTT Patient (test code See_Comment H [Au tomated message] = 3173-2) The system [employer] generated this result transmitted ref erence range: 26 - 36 Seconds. The reference range was not used to int erpret this result as normal/abnormal . Lab Interpretation (test Abnormal code = 40791-4) [facility]for use with [facility] Infusion)2022-04-16 18:23:14 Test Item Value Reference Range Interpretation Comments APTT Patient (test code See_Comment H [Au tomated message] = 3173-2) The system [employer] generated this result transmitted ref erence range: 26 - 36 Seconds. The reference range was not used to int erpret this result as normal/abnormal . Lab Interpretation (test Abnormal code = 93276-3) [facility] GLUCOSE (AUTOMATED)2022-04-16 17:59:52 Test Item Value Reference Range Interpretation Comments POCT GLU (test code = 4399642054) 131 mg/dL 70-110 H Lab Interpretation (test code = Abnormal 75730-6) [facility] GLUCOSE (AUTOMATED)2022-04-16 17:59:52 Test Item Value Reference Range Interpretation Comments POCT GLU (test code = 0415980622) 131 mg/dL 70-110 H Lab Interpretation (test code = Abnormal 33873-1) [facility] GLUCOSE (AUTOMATED)2022-04-16 13:06:52 Test Item Value Reference Range Interpretation Comments POCT GLU (test code = 3982043020) 157 mg/dL 70-110 H Lab Interpretation (test code = Abnormal 35664-7) [facility] GLUCOSE (AUTOMATED)2022-04-16 13:06:52 Test Item Value Reference Range Interpretation Comments POCT GLU (test code = 0712499130) 157 mg/dL 70-110 H Lab Interpretation (test code = Abnormal 15263-9) [facility] GLUCOSE (AUTOMATED)2022-04-16 01:54:00 Test Item Value Reference Range Interpretation Comments POCT GLU (test code = 9401745654) 91 mg/dL 70-110 Lab Interpretation (test code = Normal 99586-1) [facility] GLUCOSE (AUTOMATED)2022-04-16 01:54:00 Test Item Value Reference Range Interpretation Comments POCT GLU (test code = 7706991569) 91 mg/dL 70-110 Lab Interpretation (test code = Normal 95269-4) [facility] GLUCOSE (AUTOMATED)2022-04-15 17:00:06 Test Item Value Reference Range Interpretation Comments POCT GLU (test code = 8763808481) 173 mg/dL 70-110 H Lab Interpretation (test code = Abnormal 32678-0) [facility] GLUCOSE (AUTOMATED)2022-04-15 17:00:06 Test Item Value Reference Range Interpretation Comments POCT GLU (test code = 5087542077) 173 mg/dL 70-110 H Lab Interpretation (test code = Abnormal 79005-9) [facility] GLUCOSE (AUTOMATED)2022-04-15 13:24:12 Test Item Value Reference Range Interpretation Comments POCT GLU (test code = 7490148371) 125 mg/dL 70-110 H Lab Interpretation (test code = Abnormal 69701-9) [facility] GLUCOSE (AUTOMATED)2022-04-15 13:24:12 Test Item Value Reference Range Interpretation Comments POCT GLU (test code = 4897474055) 125 mg/dL 70-110 H Lab Interpretation (test code = Abnormal 37438-3) [facility] GLUCOSE (AUTOMATED)2022-04-15 02:36:11 Test Item Value Reference Range Interpretation Comments POCT GLU (test code = 9955713480) 168 mg/dL 70-110 H Lab Interpretation (test code = Abnormal 32935-5) [facility] GLUCOSE (AUTOMATED)2022-04-15 02:36:11 Test Item Value Reference Range Interpretation Comments POCT GLU (test code = 3295745175) 168 mg/dL 70-110 H Lab Interpretation (test code = Abnormal 94237-3) [facility]K+GLU+CA2+2022-04-15 01:04:50 Test Item Value Reference Range Interpretation Comments PH (test code = 2) 7.35-7.45 PCO2 (test code = See_Comment [Automate d message] 5090954589) The system [employer] generated this result transmit rudolph reference range : 35 - 45 mmHg. The reference range was not used to interpret this result as normal/abnormal . PO2 (test code = See_Comment [Automated message] 6651278844) The system [employer] generated this result transmit rudolph reference range : 80 - 100 mmHg. The reference range was not used to interpret this result as normal/abnormal . HCO3 (test code = See_Comment [Automate d message] 5783236130) The system [employer] generated this result transmit rudolph reference range : 22 - 26 mEq/L. The reference range was not used to interpret this result as normal/abnormal . BE (test code = See_Comment [Automated message] 6769215785) The system [employer] generated this result transmit rudolph reference range : -3.0 - 3.0 mEq/ L. The reference r adama was not used to interpret this result as normal/abnormal . THB (test code = 12.1 g/dL 13.5-18.0 L 1027812431) %O2HB (test code = 96.4 % 94.0-99.0 4499638940) %COHB ART (test code = 0.3 % 0.0-1.5 3534284671) %METHB ART (test code = 0.2 % 0.4-1.5 L 6745478527) VOL%O2 ART (test code = 16.5 % 15.0-23.0 QUES 1620178730) NA (test code = 134 mmol/L 135-145 L 9135269120) K+ (test code = 3.6 mmol/L 3.5-5.0 3500980917) AC CA IONZ (test code = 5.20 mg/dL 4.50-5.30 7927023798) GLUCOSE (test code = 136 mg/dL 70-110 H 3796291422) Lab Interpretation Abnormal (test code = 63056-0) [facility]+NA+K+GLU+CA2+2022-04-15 01:04:50 Test Item Value Reference Range Interpretation Comments PH (test code = 2) 7.35-7.45 PCO2 (test code = See_Comment [Automate d message] 2578289001) The system [employer] generated this result transmit rudolph reference range : 35 - 45 mmHg. The reference range was not used to interpret this result as normal/abnormal . PO2 (test code = See_Comment [Automated message] 1040115463) The system [employer] generated this result transmit rudolph reference range : 80 - 100 mmHg. The reference range was not used to interpret this result as normal/abnormal . HCO3 (test code = See_Comment [Automate d message] 3124088087) The system [employer] generated this result transmit rudolph reference range : 22 - 26 mEq/L. The reference range was not used to interpret this result as normal/abnormal . BE (test code = See_Comment [Automated message] 8863406942) The system [employer] generated this result transmit rudolph reference range : -3.0 - 3.0 mEq/ L. The reference r adama was not used to interpret this result as normal/abnormal . THB (test code = 12.1 g/dL 13.5-18.0 L 0138615912) %O2HB (test code = 96.4 % 94.0-99.0 6477064254) %COHB ART (test code = 0.3 % 0.0-1.5 [id number]) %METHB ART (test code = 0.2 % 0.4-1.5 L [id number]) VOL%O2 ART (test code = 16.5 % 15.0-23.0 QUES [id number]) NA (test code = 134 mmol/L 135-145 L [id number]) K+ (test code = 3.6 mmol/L 3.5-5.0 2464721909) AC CA IONZ (test code = 5.20 mg/dL 4.50-5.30 [id number]) GLUCOSE (test code = 136 mg/dL 70-110 H [id number]) Lab Interpretation Abnormal (test code = 85412-6) [facility]CA2+2022-04-15 01:04:30 Test Item Value Reference Range Interpretation Comments PH (test code = 2) 7.35-7.45 PCO2 (test code = See_Comment [Automate d message] [id number]) The system [employer] generated this result transmit rudolph reference range : 35 - 45 mmHg. The reference range was not used to interpret this result as normal/abnormal . PO2 (test code = See_Comment H [Automated message] [id number]) The system [employer] generated this result transmit rudolph reference range : 80 - 100 mmHg. The reference range was not used to interpret this result as normal/abnormal . HCO3 (test code = See_Comment [Automate d message] [id number]) The system [employer] generated this result transmit rudolph reference range : 22 - 26 mEq/L. The reference range was not used to interpret this result as normal/abnormal . BE (test code = See_Comment [Automated message] 8358695919) The system [employer] generated this result transmit rudolph reference range : -3.0 - 3.0 mEq/ L. The reference r adama was not used to interpret this result as normal/abnormal . THB (test code = 11.1 g/dL 13.5-18.0 L 8562919052) %O2HB (test code = 98.9 % 94.0-99.0 7324860305) %COHB ART (test code = 0.3 % 0.0-1.5 6740124419) %METHB ART (test code = 0.2 % 0.4-1.5 L 1933688357) VOL%O2 ART (test code = 16.0 % 15.0-23.0 QUES 7449348456) NA (test code = 133 mmol/L 135-145 L 8388690778) K+ (test code = 3.5 mmol/L 3.5-5.0 3346066492) AC CA IONZ (test code = 4.80 mg/dL 4.50-5.30 8623599610) GLUCOSE (test code = 111 mg/dL 70-110 H 3372202663) Lab Interpretation Abnormal (test code = 17947-2) [facility] 01:04:30 Test Item Value Reference Range Interpretation Comments PH (test code = 2) 7.35-7.45 PCO2 (test code = See_Comment [Automate d message] 7244034483) The system [employer] generated this result transmit rudolph reference range : 35 - 45 mmHg. The reference range was not used to interpret this result as normal/abnormal . PO2 (test code = See_Comment H [Automated message] 1377096573) The system [employer] generated this result transmit rudolph reference range : 80 - 100 mmHg. The reference range was not used to interpret this result as normal/abnormal . HCO3 (test code = See_Comment [Automate d message] 8290110581) The system [employer] generated this result transmit rudolph reference range : 22 - 26 mEq/L. The reference range was not used to interpret this result as normal/abnormal . BE (test code = See_Comment [Automated message] 7844058711) The system [employer] generated this result transmit rudolph reference range : -3.0 - 3.0 mEq/ L. The reference r adama was not used to interpret this result as normal/abnormal . THB (test code = 11.1 g/dL 13.5-18.0 L 3870398674) %O2HB (test code = 98.9 % 94.0-99.0 3035697160) %COHB ART (test code = 0.3 % 0.0-1.5 4107844349) %METHB ART (test code = 0.2 % 0.4-1.5 L 7677423107) VOL%O2 ART (test code = 16.0 % 15.0-23.0 QUES 1643649147) NA (test code = 133 mmol/L 135-145 L 2641192165) K+ (test code = 3.5 mmol/L 3.5-5.0 2100850559) AC CA IONZ (test code = 4.80 mg/dL 4.50-5.30 8615483596) GLUCOSE (test code = 111 mg/dL 70-110 H 8900953852) Lab Interpretation Abnormal (test code = 02946-1) [facility] 01:02:35 Test Item Value Reference Range Interpretation Comments PH (test code = 2) 7.35-7.45 PCO2 (test code = See_Comment L [Automate d message] 8007021548) The system [employer] generated this result transmit rudolph reference range : 35 - 45 mmHg. The reference range was not used to interpret this result as normal/abnormal . PO2 (test code = See_Comment H [Automated message] 4862771380) The system [employer] generated this result transmit rudolph reference range : 80 - 100 mmHg. The reference range was not used to interpret this result as normal/abnormal . HCO3 (test code = See_Comment L [Automate d message] 6529936412) The system [employer] generated this result transmit rudolph reference range : 22 - 26 mEq/L. The reference range was not used to interpret this result as normal/abnormal . BE (test code = See_Comment L [Automated message] 9045546465) The system [employer] generated this result transmit rudolph reference range : -3.0 - 3.0 mEq/ L. The reference r adama was not used to interpret this result as normal/abnormal . THB (test code = 9.7 g/dL 13.5-18.0 L 0962581828) %O2HB (test code = 98.6 % 94.0-99.0 6274260135) %COHB ART (test code = 0.3 % 0.0-1.5 4493212792) %METHB ART (test code = 0.4 % 0.4-1.5 3275901690) VOL%O2 ART (test code = 14.0 % 15.0-23.0 L QUES 3740731711) NA (test code = 138 mmol/L 135-145 1206171050) K+ (test code = 2.6 mmol/L 3.5-5.0 LL 3370239338) AC CA IONZ (test code = 4.00 mg/dL 4.50-5.30 L 4527940462) GLUCOSE (test code = 84 mg/dL 70-110 1768277829) Lab Interpretation Abnormal (test code = 84113-1) [facility] 01:02:35 Test Item Value Reference Range Interpretation Comments PH (test code = 2) 7.35-7.45 PCO2 (test code = See_Comment L [Automate d message] 2514103624) The system [employer] generated this result transmit rudolph reference range : 35 - 45 mmHg. The reference range was not used to interpret this result as normal/abnormal . PO2 (test code = See_Comment H [Automated message] 3955496550) The system [employer] generated this result transmit rudolph reference range : 80 - 100 mmHg. The reference range was not used to interpret this result as normal/abnormal . HCO3 (test code = See_Comment L [Automate d message] 1989098729) The system [employer] generated this result transmit rudolph reference range : 22 - 26 mEq/L. The reference range was not used to interpret this result as normal/abnormal . BE (test code = See_Comment L [Automated message] 4934269547) The system [employer] generated this result transmit rudolph reference range : -3.0 - 3.0 mEq/ L. The reference r adama was not used to interpret this result as normal/abnormal . THB (test code = 9.7 g/dL 13.5-18.0 L 5297276736) %O2HB (test code = 98.6 % 94.0-99.0 6034527651) %COHB ART (test code = 0.3 % 0.0-1.5 6500653336) %METHB ART (test code = 0.4 % 0.4-1.5 9827299989) VOL%O2 ART (test code = 14.0 % 15.0-23.0 L QUES 0535173195) NA (test code = 138 mmol/L 135-145 8156388901) K+ (test code = 2.6 mmol/L 3.5-5.0 LL 9606974044) AC CA IONZ (test code = 4.00 mg/dL 4.50-5.30 L 0777314660) GLUCOSE (test code = 84 mg/dL 70-110 5496777149) Lab Interpretation Abnormal (test code = 82742-4) [facility] 01:01:49 Test Item Value Reference Range Interpretation Comments PH (test code = 2) 7.35-7.45 PCO2 (test code = See_Comment L [Automate d message] 9116130611) The system [employer] generated this result transmit rudolph reference range : 35 - 45 mmHg. The reference range was not used to interpret this result as normal/abnormal . PO2 (test code = See_Comment H [Automated message] 8289480778) The system [employer] generated this result transmit rudolph reference range : 80 - 100 mmHg. The reference range was not used to interpret this result as normal/abnormal . HCO3 (test code = See_Comment [Automate d message] 9464219772) The system [employer] generated this result transmit rudolph reference range : 22 - 26 mEq/L. The reference range was not used to interpret this result as normal/abnormal . BE (test code = See_Comment [Automated message] 4341729242) The system [employer] generated this result transmit rudolph reference range : -3.0 - 3.0 mEq/ L. The reference r adama was not used to interpret this result as normal/abnormal . THB (test code = 11.8 g/dL 13.5-18.0 L 2067988617) %O2HB (test code = 99.1 % 94.0-99.0 H 2821927415) %COHB ART (test code = 0.0 % 0.0-1.5 8768363432) %METHB ART (test code = 0.3 % 0.4-1.5 L 9684325381) VOL%O2 ART (test code = 17.0 % 15.0-23.0 QUES 1584145664) NA (test code = 135 mmol/L 135-145 1205513702) K+ (test code = 3.3 mmol/L 3.5-5.0 L 2649581823) AC CA IONZ (test code = 4.60 mg/dL 4.50-5.30 4818052738) GLUCOSE (test code = 105 mg/dL 70-110 4252958230) Lab Interpretation Abnormal (test code = 22938-0) [facility] 01:01:49 Test Item Value Reference Range Interpretation Comments PH (test code = 2) 7.35-7.45 PCO2 (test code = See_Comment L [Automate d message] 4355816818) The system [employer] generated this result transmit rudolph reference range : 35 - 45 mmHg. The reference range was not used to interpret this result as normal/abnormal . PO2 (test code = See_Comment H [Automated message] 6462396097) The system [employer] generated this result transmit rudolph reference range : 80 - 100 mmHg. The reference range was not used to interpret this result as normal/abnormal . HCO3 (test code = See_Comment [Automate d message] 5683287120) The system [employer] generated this result transmit rudolph reference range : 22 - 26 mEq/L. The reference range was not used to interpret this result as normal/abnormal . BE (test code = See_Comment [Automated message] 0641349510) The system [employer] generated this result transmit rudolph reference range : -3.0 - 3.0 mEq/ L. The reference r adama was not used to interpret this result as normal/abnormal . THB (test code = 11.8 g/dL 13.5-18.0 L 0940300088) %O2HB (test code = 99.1 % 94.0-99.0 H 3992218517) %COHB ART (test code = 0.0 % 0.0-1.5 0862574992) %METHB ART (test code = 0.3 % 0.4-1.5 L 2674626805) VOL%O2 ART (test code = 17.0 % 15.0-23.0 QUES 7372243251) NA (test code = 135 mmol/L 135-145 4379970278) K+ (test code = 3.3 mmol/L 3.5-5.0 L 4161165804) AC CA IONZ (test code = 4.60 mg/dL 4.50-5.30 8818085663) GLUCOSE (test code = 105 mg/dL 70-110 1482612640) Lab Interpretation Abnormal (test code = 82781-4) [facility] 00:55:17 Test Item Value Reference Range Interpretation Comments PH (test code = 2) 7.35-7.45 PCO2 (test code = See_Comment [Automate d message] 4241701303) The system [employer] generated this result transmit rudolph reference range : 35 - 45 mmHg. The reference range was not used to interpret this result as normal/abnormal . PO2 (test code = See_Comment H [Automated message] 8266027302) The system [employer] generated this result transmit rudolph reference range : 80 - 100 mmHg. The reference range was not used to interpret this result as normal/abnormal . HCO3 (test code = See_Comment [Automate d message] 7328445673) The system [employer] generated this result transmit rudolph reference range : 22 - 26 mEq/L. The reference range was not used to interpret this result as normal/abnormal . BE (test code = See_Comment [Automated message] 3371027392) The system [employer] generated this result transmit rudolph reference range : -3.0 - 3.0 mEq/ L. The reference r adama was not used to interpret this result as normal/abnormal . THB (test code = 11.7 g/dL 13.5-18.0 L 4185362970) %O2HB (test code = 99.1 % 94.0-99.0 H 6410091541) %COHB ART (test code = 0.3 % 0.0-1.5 4702982073) %METHB ART (test code = 0.0 % 0.4-1.5 L 2395329361) VOL%O2 ART (test code = 16.9 % 15.0-23.0 QUES 6518737658) NA (test code = 133 mmol/L 135-145 L 5308033430) K+ (test code = 4.4 mmol/L 3.5-5.0 3097788916) AC CA IONZ (test code = 4.80 mg/dL 4.50-5.30 0643402727) GLUCOSE (test code = 143 mg/dL 70-110 H 9202706365) Lab Interpretation Abnormal (test code = 51311-6) [facility] 00:55:17 Test Item Value Reference Range Interpretation Comments PH (test code = 2) 7.35-7.45 PCO2 (test code = See_Comment [Automate d message] 1297700346) The system [employer] generated this result transmit rudolph reference range : 35 - 45 mmHg. The reference range was not used to interpret this result as normal/abnormal . PO2 (test code = See_Comment H [Automated message] 6598508107) The system [employer] generated this result transmit urdolph reference range : 80 - 100 mmHg. The reference range was not used to interpret this result as normal/abnormal . HCO3 (test code = See_Comment [Automate d message] 5815747529) The system [employer] generated this result transmit rudolph reference range : 22 - 26 mEq/L. The reference range was not used to interpret this result as normal/abnormal . BE (test code = See_Comment [Automated message] 2903013131) The system [employer] generated this result transmit rudolph reference range : -3.0 - 3.0 mEq/ L. The reference r adama was not used to interpret this result as normal/abnormal . THB (test code = 11.7 g/dL 13.5-18.0 L 3579302988) %O2HB (test code = 99.1 % 94.0-99.0 H 3855739608) %COHB ART (test code = 0.3 % 0.0-1.5 7131557954) %METHB ART (test code = 0.0 % 0.4-1.5 L 6450483521) VOL%O2 ART (test code = 16.9 % 15.0-23.0 QUES 0423229869) NA (test code = 133 mmol/L 135-145 L 2729281556) K+ (test code = 4.4 mmol/L 3.5-5.0 3743966870) AC CA IONZ (test code = 4.80 mg/dL 4.50-5.30 0595612847) GLUCOSE (test code = 143 mg/dL 70-110 H 0503237091) Lab Interpretation Abnormal (test code = 83651-5) [facility] 00:54:37 Test Item Value Reference Range Interpretation Comments PH (test code = 2) 7.35-7.45 PCO2 (test code = See_Comment [Automate d message] 5983252599) The system [employer] generated this result transmit rudolph reference range : 35 - 45 mmHg. The reference range was not used to interpret this result as normal/abnormal . PO2 (test code = See_Comment H [Automated message] 2703219888) The system [employer] generated this result transmit rudolph reference range : 80 - 100 mmHg. The reference range was not used to interpret this result as normal/abnormal . HCO3 (test code = See_Comment [Automate d message] 2514904188) The system [employer] generated this result transmit rudolph reference range : 22 - 26 mEq/L. The reference range was not used to interpret this result as normal/abnormal . BE (test code = See_Comment [Automated message] 2595705423) The system [employer] generated this result transmit rudolph reference range : -3.0 - 3.0 mEq/ L. The reference r adama was not used to interpret this result as normal/abnormal . THB (test code = 8.5 g/dL 13.5-18.0 L 0860260931) %O2HB (test code = 98.8 % 94.0-99.0 7209181435) %COHB ART (test code = 0.5 % 0.0-1.5 9128853703) %METHB ART (test code = 0.3 % 0.4-1.5 L 0544761795) VOL%O2 ART (test code = 12.6 % 15.0-23.0 L QUES 3454139581) NA (test code = 132 mmol/L 135-145 L 3864884775) K+ (test code = 4.5 mmol/L 3.5-5.0 3750855259) AC CA IONZ (test code = 4.60 mg/dL 4.50-5.30 4367227620) GLUCOSE (test code = 155 mg/dL 70-110 H 4650779510) Lab Interpretation Abnormal (test code = 87051-3) [facility] 00:54:37 Test Item Value Reference Range Interpretation Comments PH (test code = 2) 7.35-7.45 PCO2 (test code = See_Comment [Automate d message] 8773298236) The system [employer] generated this result transmit rudolph reference range : 35 - 45 mmHg. The reference range was not used to interpret this result as normal/abnormal . PO2 (test code = See_Comment H [Automated message] 7083777206) The system [employer] generated this result transmit rudolph reference range : 80 - 100 mmHg. The reference range was not used to interpret this result as normal/abnormal . HCO3 (test code = See_Comment [Automate d message] 6173401908) The system [employer] generated this result transmit rudolph reference range : 22 - 26 mEq/L. The reference range was not used to interpret this result as normal/abnormal . BE (test code = See_Comment [Automated message] 4765210440) The system [employer] generated this result transmit rudolph reference range : -3.0 - 3.0 mEq/ L. The reference r adama was not used to interpret this result as normal/abnormal . THB (test code = 8.5 g/dL 13.5-18.0 L 3872267223) %O2HB (test code = 98.8 % 94.0-99.0 5542010238) %COHB ART (test code = 0.5 % 0.0-1.5 1085948254) %METHB ART (test code = 0.3 % 0.4-1.5 L 1544021459) VOL%O2 ART (test code = 12.6 % 15.0-23.0 L QUES 0782965191) NA (test code = 132 mmol/L 135-145 L 7967524624) K+ (test code = 4.5 mmol/L 3.5-5.0 9149039123) AC CA IONZ (test code = 4.60 mg/dL 4.50-5.30 0985661606) GLUCOSE (test code = 155 mg/dL 70-110 H 4262828667) Lab Interpretation Abnormal (test code = 14316-0) [facility] 00:53:11 Test Item Value Reference Range Interpretation Comments PH (test code = 2) 7.35-7.45 PCO2 (test code = See_Comment [Automate d message] 2006979407) The system [employer] generated this result transmit rudolph reference range : 35 - 45 mmHg. The reference range was not used to interpret this result as normal/abnormal . PO2 (test code = See_Comment H [Automated message] 8435378319) The system [employer] generated this result transmit rudolph reference range : 80 - 100 mmHg. The reference range was not used to interpret this result as normal/abnormal . HCO3 (test code = See_Comment [Automate d message] 7590032382) The system [employer] generated this result transmit rudolph reference range : 22 - 26 mEq/L. The reference range was not used to interpret this result as normal/abnormal . BE (test code = See_Comment [Automated message] 4214086860) The system [employer] generated this result transmit rudolph reference range : -3.0 - 3.0 mEq/ L. The reference r adama was not used to interpret this result as normal/abnormal . THB (test code = 8.3 g/dL 13.5-18.0 LL 3467442235) %O2HB (test code = 98.9 % 94.0-99.0 8867439791) %COHB ART (test code = 0.4 % 0.0-1.5 5781834550) %METHB ART (test code = 0.3 % 0.4-1.5 L 5114077940) VOL%O2 ART (test code = 12.3 % 15.0-23.0 L QUES 5462313328) NA (test code = 131 mmol/L 135-145 L 4990564090) K+ (test code = 4.6 mmol/L 3.5-5.0 9865344477) AC CA IONZ (test code = 4.60 mg/dL 4.50-5.30 5688673420) GLUCOSE (test code = 161 mg/dL 70-110 H 4361350422) Lab Interpretation Abnormal (test code = 65155-2) [facility] 00:53:11 Test Item Value Reference Range Interpretation Comments PH (test code = 2) 7.35-7.45 PCO2 (test code = See_Comment [Automate d message] 3101436892) The system [employer] generated this result transmit rudolph reference range : 35 - 45 mmHg. The reference range was not used to interpret this result as normal/abnormal . PO2 (test code = See_Comment H [Automated message] 4358962622) The system [employer] generated this result transmit rudolph reference range : 80 - 100 mmHg. The reference range was not used to interpret this result as normal/abnormal . HCO3 (test code = See_Comment [Automate d message] 6853192410) The system [employer] generated this result transmit rudolph reference range : 22 - 26 mEq/L. The reference range was not used to interpret this result as normal/abnormal . BE (test code = See_Comment [Automated message] 5306316623) The system [employer] generated this result transmit rudolph reference range : -3.0 - 3.0 mEq/ L. The reference r adama was not used to interpret this result as normal/abnormal . THB (test code = 8.3 g/dL 13.5-18.0 8962366101) %O2HB (test code = 98.9 % 94.0-99.0 8658225036) %COHB ART (test code = 0.4 % 0.0-1.5 0896626765) %METHB ART (test code = 0.3 % 0.4-1.5 L 4944481751) VOL%O2 ART (test code = 12.3 % 15.0-23.0 L QUES 3524492574) NA (test code = 131 mmol/L 135-145 L 7184550006) K+ (test code = 4.6 mmol/L 3.5-5.0 2183571016) AC CA IONZ (test code = 4.60 mg/dL 4.50-5.30 1620022707) GLUCOSE (test code = 161 mg/dL 70-110 H 3957885609) Lab Interpretation Abnormal (test code = 65576-4) [facility] 00:52:26 Test Item Value Reference Range Interpretation Comments PH (test code = 2) 7.35-7.45 L PCO2 (test code = See_Comment [Automate d message] 7849980932) The system [employer] generated this result transmit rudolph reference range : 35 - 45 mmHg. The reference range was not used to interpret this result as normal/abnormal . PO2 (test code = See_Comment H [Automated message] 0577817444) The system [employer] generated this result transmit rudolph reference range : 80 - 100 mmHg. The reference range was not used to interpret this result as normal/abnormal . HCO3 (test code = See_Comment L [Automate d message] 9360281305) The system [employer] generated this result transmit rudolph reference range : 22 - 26 mEq/L. The reference range was not used to interpret this result as normal/abnormal . BE (test code = See_Comment L [Automated message] 1681853142) The system [employer] generated this result transmit rudolph reference range : -3.0 - 3.0 mEq/ L. The reference r adama was not used to interpret this result as normal/abnormal . THB (test code = 10.8 g/dL 13.5-18.0 L 3908585561) %O2HB (test code = 98.6 % 94.0-99.0 1478140940) %COHB ART (test code = 0.3 % 0.0-1.5 5578842691) %METHB ART (test code = 0.3 % 0.4-1.5 L 0237794529) VOL%O2 ART (test code = 15.7 % 15.0-23.0 QUES 6834070183) NA (test code = 132 mmol/L 135-145 L 1871678326) K+ (test code = 4.7 mmol/L 3.5-5.0 5168810338) AC CA IONZ (test code = 4.40 mg/dL 4.50-5.30 L 0216485891) GLUCOSE (test code = 179 mg/dL 70-110 H 4151967449) Lab Interpretation Abnormal (test code = 57928-6) [facility] 00:52:26 Test Item Value Reference Range Interpretation Comments PH (test code = 2) 7.35-7.45 L PCO2 (test code = See_Comment [Automate d message] 4370361707) The system [employer] generated this result transmit rudolph reference range : 35 - 45 mmHg. The reference range was not used to interpret this result as normal/abnormal . PO2 (test code = See_Comment H [Automated message] 7681966875) The system [employer] generated this result transmit rudolph reference range : 80 - 100 mmHg. The reference range was not used to interpret this result as normal/abnormal . HCO3 (test code = See_Comment L [Automate d message] 3602254351) The system [employer] generated this result transmit rudolph reference range : 22 - 26 mEq/L. The reference range was not used to interpret this result as normal/abnormal . BE (test code = See_Comment L [Automated message] 9168986409) The system [employer] generated this result transmit rudolph reference range : -3.0 - 3.0 mEq/ L. The reference r adama was not used to interpret this result as normal/abnormal . THB (test code = 10.8 g/dL 13.5-18.0 L 2684450252) %O2HB (test code = 98.6 % 94.0-99.0 1161067359) %COHB ART (test code = 0.3 % 0.0-1.5 7407123747) %METHB ART (test code = 0.3 % 0.4-1.5 L 6691340168) VOL%O2 ART (test code = 15.7 % 15.0-23.0 QUES 9286609723) NA (test code = 132 mmol/L 135-145 L 1536687981) K+ (test code = 4.7 mmol/L 3.5-5.0 8730950808) AC CA IONZ (test code = 4.40 mg/dL 4.50-5.30 L 7889812805) GLUCOSE (test code = 179 mg/dL 70-110 H 3342284431) Lab Interpretation Abnormal (test code = 02962-1) [facility] GLUCOSE (AUTOMATED)2022-04-15 00:08:21 Test Item Value Reference Range Interpretation Comments POCT GLU (test code = 7807024467) 178 mg/dL 70-110 H Lab Interpretation (test code = Abnormal 81322-9) [facility] GLUCOSE (AUTOMATED)2022-04-15 00:08:21 Test Item Value Reference Range Interpretation Comments POCT GLU (test code = 1917863356) 178 mg/dL 70-110 H Lab Interpretation (test code = Abnormal 26352-7) [facility] Packed RBC (in units), 1 Units 2022-04-14 18:57:54 Test Item Value Reference Range Interpretation Comments Cross Match Result Compatible (test code = 4409) ISBT Blood Type Code (test code = 282906) Unit Blood Type (test O Pos code = 4410) Unit Number (test [id number] code = 4411) Blood Expiration Date & Time (test code = 115428) Status Information Issued (test code = 4412) Product Red Blood Cells Identification (test code = 4413) Product Code (test [id number] Performed at [facility] code = 4414) Laboratory Services [address] [address]Alxr Free: [phone] A No. [id number] [facility] Packed RBC (in units), 1 Units 2022-04-14 18:57:54 Test Item Value Reference Range Interpretation Comments Cross Match Result Compatible (test code = 4409) ISBT Blood Type Code (test code = 243877) Unit Blood Type (test O Pos code = 4410) Unit Number (test [id number] code = 4411) Blood Expiration Date & Time (test code = 261975) Status Information Issued (test code = 4412) Product Red Blood Cells Identification (test code = 4413) Product Code (test Y2529S50 Performed at [facility] code = 4414) Laboratory Services - [facility] Blood [address] [place] [address]Hxra Free: [phone] A No. [id number] [facility] GLUCOSE (AUTOMATED)2022-04-14 17:17:57 Test Item Value Reference Range Interpretation Comments POCT GLU (test code = 0770919993) 172 mg/dL 70-110 H Lab Interpretation (test code = Abnormal 78948-2) [facility] GLUCOSE (AUTOMATED)2022-04-14 17:17:57 Test Item Value Reference Range Interpretation Comments POCT GLU (test code = 3389252641) 172 mg/dL 70-110 H Lab Interpretation (test code = Abnormal 18340-5) [facility] and Screen - ONCE [id number] 16:33:50 Test Item Value Reference Range Interpretation Comments ABO & RH (test code O POSITIVE Performe d at [facility] = 20) Laboratory [facility] Blood [address] [address]Nypo Free: [phone] A No. [id number] IAT (test code = Negative Performed a t [facility] 1185) Laboratory [facility] Blood [address] [address]Ugii Free: [phone] A No. [id number] [facility] and Screen - ONCE [id number] 16:33:50 Test Item Value Reference Range Interpretation Comments ABO & RH (test code O POSITIVE Performe d at [facility] = 20) Laboratory [facility] Blood [address] s [address]Pqic Free: [phone] A No. [id number] IAT (test code = Negative Performed a t [facility] 1185) Laboratory [facility] Blood [address] s [address]Qaru Free: [phone] A No. [id number] [facility] GLUCOSE (AUTOMATED)2022-04-14 13:36:26 Test Item Value Reference Range Interpretation Comments POCT GLU (test code = 1581702185) 203 mg/dL 70-110 H Lab Interpretation (test code = Abnormal 53905-8) [facility] GLUCOSE (AUTOMATED)2022-04-14 13:36:26 Test Item Value Reference Range Interpretation Comments POCT GLU (test code = 2549650660) 203 mg/dL 70-110 H Lab Interpretation (test code = Abnormal 92440-8) [facility] GLUCOSE (AUTOMATED)2022-04-14 04:11:31 Test Item Value Reference Range Interpretation Comments POCT GLU (test code = 8373191283) 105 mg/dL 70-110 Lab Interpretation (test code = Normal 84697-5) [facility] GLUCOSE (AUTOMATED)2022-04-14 04:11:31 Test Item Value Reference Range Interpretation Comments POCT GLU (test code = 7460270264) 105 mg/dL 70-110 Lab Interpretation (test code = Normal 62200-6) [facility] GLUCOSE (AUTOMATED)2022-04-14 00:03:58 Test Item Value Reference Range Interpretation Comments POCT GLU (test code = 5910532095) 128 mg/dL 70-110 H Lab Interpretation (test code = Abnormal 80373-3) [facility] GLUCOSE (AUTOMATED)2022-04-14 00:03:58 Test Item Value Reference Range Interpretation Comments POCT GLU (test code = 1105362357) 128 mg/dL 70-110 H Lab Interpretation (test code = Abnormal 30166-1) [id number]:14:48 Test Item Value Reference Range Interpretation Comments IONIZED CA (test code = 4.10 mg/dL 4.50-5.30 L 3848397500) PH SERUM (test code = 3620814323) 7.35-7.45 Lab Interpretation (test code = Abnormal 40355-7) [facility] [id number] 22:14:48 Test Item Value Reference Range Interpretation Comments IONIZED CA (test code = 4.10 mg/dL 4.50-5.30 L 0517071236) PH SERUM (test code = 6519459099) 7.35-7.45 Lab Interpretation (test code = Abnormal 06087-2) [facility]2022-04-13 21:43:14 Test Item Value Reference Range Interpretation Comments APTT Patient (test code See_Comment H [Au tomated message] = 3173-2) The system [employer] generated this result transmitted ref erence range: 26 - 36 Seconds. The reference range was not used to int erpret this result as normal/abnormal . Lab Interpretation (test Abnormal code = 29056-2) [facility] (for use with Heparin Infusion)2022-04-13 21:43:14 Test Item Value Reference Range Interpretation Comments APTT Patient (test code See_Comment H [Au tomated message] = 3173-2) The system [employer] generated this result transmitted ref erence range: 26 - 36 Seconds. The reference range was not used to int erpret this result as normal/abnormal . Lab Interpretation (test Abnormal code = 40645-6) [facility] PTH CALCIUM [id number] 17:52:12 Test Item Value Reference Range Interpretation Comments PTH-INTACT (test code = 81.0 pg/mL 12.0-88.0 5653765961) PTH-CA Interpretation [facility] clinical (test code = 6362308494) stephenie a needed for interpretation. CALCIUM (test code = 8.5 mg/dL 8.6-10.6 L 7237089732) Lab Interpretation (test Abnormal code = 05174-9) [facility] PTH CALCIUM [id number] 17:52:12 Test Item Value Reference Range Interpretation Comments PTH-INTACT (test code = 81.0 pg/mL 12.0-88.0 6497883222) PTH-CA Interpretation [facility] (test code = 0131304535) stephenie a needed for interpretation. CALCIUM (test code = 8.5 mg/dL 8.6-10.6 L 8753195360) Lab Interpretation (test Abnormal code = 00705-2) [facility] GLUCOSE (AUTOMATED)2022-04-13 17:37:51 Test Item Value Reference Range Interpretation Comments POCT GLU (test code = 6555381819) 108 mg/dL 70-110 Lab Interpretation (test code = Normal 39065-7) [facility] GLUCOSE (AUTOMATED)2022-04-13 17:37:51 Test Item Value Reference Range Interpretation Comments POCT GLU (test code = 2680955022) 108 mg/dL 70-110 Lab Interpretation (test code = Normal 17014-6) [facility] [id number] 14:01:16 Test Item Value Reference Range Interpretation Comments IRON (test code = 8299448771) 54 ug/dL 50-160 TIBC (test code = 3833653989) 106 ug/dL 250-410 L % FE SAT (test code = 3150887518) 51 % 20-50 H Lab Interpretation (test code = Abnormal 95079-6) [facility] [id number] 14:01:16 Test Item Value Reference Range Interpretation Comments IRON (test code = 3308842489) 54 ug/dL 50-160 TIBC (test code = 7256326665) 106 ug/dL 250-410 L % FE SAT (test code = 2016177477) 51 % 20-50 H Lab Interpretation (test code = Abnormal 50565-3) [facility] METABOLIC PANEL (NA, K, CL, CO2, GLUCOSE, BUN, CREATININE, CA)2022-04-13 13:52:14 Test Item Value Reference Range Interpretation Comments NA (test code = 135 mmol/L 135-145 9592075357) K (test code = 4.1 mmol/L 3.5-5.0 4886789137) CL (test code = 100 mmol/L 98-108 3808471904) CO2 TOTAL (test code = 24 mmol/L 23-31 4508804396) AGAP (test code = 2-16 4092673884) BUN (test code = 18 mg/dL 7-23 1261092405) GLUCOSE (test code = 100 mg/dL 70-110 4086010583) CREATININE (test code = 4.28 mg/dL 0.60-1.25 H 5263030162) CALCIUM (test code = 9.0 mg/dL 8.6-10.6 1695439043) eGFR (test code = mL/min/1.73m2 2450331552) MARINO (test code = MARINO) Association of [...] tests). Lab Interpretation Abnormal (test code = 98124-5) [facility] 13:52:14 Test Item Value Reference Range Interpretation Comments MAGNESIUM (test code = 1481002663) 2.2 mg/dL 1.7-2.4 Lab Interpretation (test code = Normal 73412-6) [facility] [id number] 13:52:14 Test Item Value Reference Range Interpretation Comments PHOSPHORUS (test code = 5248322454) 3.9 mg/dL 2.5-5.0 Lab Interpretation (test code = Normal 36085-6) [facility] (NA, K, CL, CO2, GLUCOSE, BUN, CREATININE, CA)2022-04-13 13:52:14 Test Item Value Reference Range Interpretation Comments NA (test code = 135 mmol/L 135-145 8060835214) K (test code = 4.1 mmol/L 3.5-5.0 0863063502) CL (test code = 100 mmol/L 98-108 3832109885) CO2 TOTAL (test code = 24 mmol/L 23-31 4913883454) AGAP (test code = 2-16 3297346775) BUN (test code = 18 mg/dL 7-23 9213203746) GLUCOSE (test code = 100 mg/dL 70-110 2993814109) CREATININE (test code = 4.28 mg/dL 0.60-1.25 H 0042886493) CALCIUM (test code = 9.0 mg/dL 8.6-10.6 1491938487) eGFR (test code = mL/min/1.73m2 9713636885) MARINO (test code = MARINO) Association of [...] tests). Lab Interpretation Abnormal (test code = 67524-0) [facility] Test Item Value Reference Range Interpretation Comments MAGNESIUM (test code = 5986818396) 2.2 mg/dL 1.7-2.4 Lab Interpretation (test code = Normal 77768-0) [facility] [id number] 13:52:14 Test Item Value Reference Range Interpretation Comments PHOSPHORUS (test code = 1562176795) 3.9 mg/dL 2.5-5.0 Lab Interpretation (test code = Normal 67554-5) [facility] (for use with Heparin Infusion)2022-04-13 11:34:16 Test Item Value Reference Range Interpretation Comments APTT Patient (test code See_Comment H [Au tomated message] = 3173-2) The system [employer] generated this result transmitted ref erence range: 26 - 36 Seconds. The reference range was not used to int erpret this result as normal/abnormal . Lab Interpretation (test Abnormal code = 19571-5) [facility] (for use with Heparin Infusion)2022-04-13 11:34:16 Test Item Value Reference Range Interpretation Comments APTT Patient (test code See_Comment H [Au tomated message] = 3173-2) The system [employer] generated this result transmitted ref erence range: 26 - 36 Seconds. The reference range was not used to int erpret this result as normal/abnormal . Lab Interpretation (test Abnormal code = 03003-0) [facility] Campus[facility] WITHOUT [id number] 11:27:49 Test Item Value Reference Range Interpretation Comments WBC (test code = 6690-2) See_Comment [A utomated message] The system [employer] generated this result transmit rudolph reference range : 4.20 - 10.70 10*3/?L. The reference range was not used to interpret this result as normal/abnormal . RBC (test code = 789-8) See_Comment L [Au tomated message] The system [employer] generated this result transmit rudolph reference range [...] 777-3) See_Comment [Au tomated message] The system [facility] generated this result transmit rudolph reference range : 150 - 328 10*3/?L. The reference range was not used to interpret this result as normal/abnormal . MPV (test code = 11.7 fL 9.8-13.0 19749-3) RDW-CV (test code = 15.5 % 12.1-15.4 H 788-0) RDW-SD (test code = 48.9 fL 38.5-51.6 60567-7) NRBC x10^3 (test code = See_Comment [Au tomated message] 1714809346) The system [employer] generated this result transmit rudolph reference range : 10*3/?L. The reference range was not used to interpret this result as normal/abnormal . NRBC/100 WBC (test code See_Comment [Au tomated message] = 0009316483) The system [facility] generated this result transmit rudolph reference range : 0.0 - 10.0 /100 WBC s. The reference r adama was not used to interpret this result as normal/abnormal . IPF % (test code = 9782289634) Lab Interpretation (test Abnormal code = 09951-3) [facility] WITHOUT [id number] 11:27:49 Test Item Value Reference Range Interpretation Comments WBC (test code = 6690-2) See_Comment [A utomated message] The system [facility] generated this result transmit rudolph reference range : 4.20 - 10.70 10*3/?L. The reference range was not used to interpret this result as normal/abnormal . RBC (test code = 789-8) See_Comment L [Au tomated message] The system [facility] generated this result transmit rudolph [...] 777-3) See_Comment [Au tomated message] The system [employer] generated this result transmit rudolph reference range : 150 - 328 10*3/?L. The reference range was not used to interpret this result as normal/abnormal . MPV (test code = 11.7 fL 9.8-13.0 82014-6) RDW-CV (test code = 15.5 % 12.1-15.4 H 788-0) RDW-SD (test code = 48.9 fL 38.5-51.6 53015-0) NRBC x10^3 (test code = See_Comment [Au tomated message] 1320315998) The system [employer] generated this result transmit rudolph reference range : 10*3/?L. The reference range was not used to interpret this result as normal/abnormal . NRBC/100 WBC (test code See_Comment [Au tomated message] = 4423812035) The system [employer] generated this result transmit rudolph reference range : 0.0 - 10.0 /100 WBC s. The reference r adama was not used to interpret this result as normal/abnormal . IPF % (test code = 0855371830) Lab Interpretation (test Abnormal code = 23224-5) [facility] GLUCOSE (AUTOMATED)2022-04-13 01:42:59 Test Item Value Reference Range Interpretation Comments POCT GLU (test code = 9929317836) 116 mg/dL 70-110 H Lab Interpretation (test code = Abnormal 63239-9) [facility] GLUCOSE (AUTOMATED)2022-04-13 01:42:59 Test Item Value Reference Range Interpretation Comments POCT GLU (test code = 8369702148) 116 mg/dL 70-110 H Lab Interpretation (test code = Abnormal 48071-7) [facility] GLUCOSE (AUTOMATED)2022-04-12 22:13:36 Test Item Value Reference Range Interpretation Comments POCT GLU (test code = 8160848043) 88 mg/dL 70-110 Lab Interpretation (test code = Normal 49157-0) [facility] GLUCOSE (AUTOMATED)2022-04-12 22:13:36 Test Item Value Reference Range Interpretation Comments POCT GLU (test code = 9386236319) 88 mg/dL 70-110 Lab Interpretation (test code = Normal 42480-5) [facility] (for use with Heparin Infusion)2022-04-12 19:58:55 Test Item Value Reference Range Interpretation Comments APTT Patient (test code See_Comment H [Au tomated message] = 3173-2) The system [employer] generated this result transmitted ref erence range: 26 - 36 Seconds. The reference range was not used to int erpret this result as normal/abnormal . Lab Interpretation (test Abnormal code = 15127-8) [facility] (for use with Heparin Infusion)2022-04-12 19:58:55 Test Item Value Reference Range Interpretation Comments APTT Patient (test code See_Comment H [Au tomated message] = 3173-2) The system [employer] generated this result transmitted ref erence range: 26 - 36 Seconds. The reference range was not used to int erpret this result as normal/abnormal . Lab Interpretation (test Abnormal code = 15218-8) [facility] GLUCOSE (AUTOMATED)2022-04-12 17:51:49 Test Item Value Reference Range Interpretation Comments POCT GLU (test code = 7258108299) 78 mg/dL 70-110 Lab Interpretation (test code = Normal 55479-3) [facility] GLUCOSE (AUTOMATED)2022-04-12 17:51:49 Test Item Value Reference Range Interpretation Comments POCT GLU (test code = 2875385979) 78 mg/dL 70-110 Lab Interpretation (test code = Normal 67375-8) [facility] GLUCOSE (AUTOMATED)2022-04-12 17:49:21 Test Item Value Reference Range Interpretation Comments POCT GLU (test code = 2513881638) 39 mg/dL 70-110 LL Lab Interpretation (test code = Abnormal 82786-7) [facility] GLUCOSE (AUTOMATED)2022-04-12 17:49:21 Test Item Value Reference Range Interpretation Comments POCT GLU (test code = 2036335662) 39 mg/dL 70-110 LL Lab Interpretation (test code = Abnormal 00914-7) [facility] GLUCOSE (AUTOMATED)2022-04-12 12:30:26 Test Item Value Reference Range Interpretation Comments POCT GLU (test code = 9883952832) 74 mg/dL 70-110 Lab Interpretation (test code = Normal 03500-3) [facility] GLUCOSE (AUTOMATED)2022-04-12 12:30:26 Test Item Value Reference Range Interpretation Comments POCT GLU (test code = 8688869749) 74 mg/dL 70-110 Lab Interpretation (test code = Normal 61304-5) [facility] GLUCOSE (AUTOMATED)2022-04-12 12:27:15 Test Item Value Reference Range Interpretation Comments POCT GLU (test code = 3882484446) 52 mg/dL 70-110 L Lab Interpretation (test code = Abnormal 69129-4) [facility] GLUCOSE (AUTOMATED)2022-04-12 12:27:15 Test Item Value Reference Range Interpretation Comments POCT GLU (test code = 8851147486) 52 mg/dL 70-110 L Lab Interpretation (test code = Abnormal 69694-8) [facility] 12:06:35 Test Item Value Reference Range Interpretation Comments APTT Patient (test code See_Comment [Au tomated message] = 3173-2) The system [employer] generated this result transmitted ref erence range: 26 - 36 Seconds. The reference range was not used to int erpret this result as normal/abnormal . Lab Interpretation (test Abnormal code = 09652-1) [facility]for use with Heparin Drip[facility]2022-04-12 12:06:35 Test Item Value Reference Range Interpretation Comments APTT Patient (test code See_Comment HH [Au tomated message] = 3173-2) The system [employer] generated this result transmitted ref erence range: 26 - 36 Seconds. The reference range was not used to int erpret this result as normal/abnormal . Lab Interpretation (test Abnormal code = 58900-6) [facility] [id number] 09:30:55 Test Item Value Reference Range Interpretation Comments IONIZED CA (test code = 4.00 mg/dL 4.50-5.30 L 7829170961) PH SERUM (test code = 7932831358) 7.35-7.45 QUES Lab Interpretation (test code = Abnormal 25316-1) [facility] [id number] 09:30:55 Test Item Value Reference Range Interpretation Comments IONIZED CA (test code = 4.00 mg/dL 4.50-5.30 L 4231648786) PH SERUM (test code = 5341691300) 7.35-7.45 QUES Lab Interpretation (test code = Abnormal 99159-2) [facility] METABOLIC PANEL (NA, K, CL, CO2, GLUCOSE, BUN, CREATININE, CA)2022-04-12 09:29:35 Test Item Value Reference Range Interpretation Comments NA (test code = 138 mmol/L 135-145 8619923669) K (test code = 3.8 mmol/L 3.5-5.0 6326765043) CL (test code = 106 mmol/L 98-108 4603151714) CO2 TOTAL (test code = 22 mmol/L 23-31 L 1924120924) AGAP (test code = 2-16 0083234426) BUN (test code = 26 mg/dL 7-23 H 8066369296) GLUCOSE (test code = 70 mg/dL 70-110 6622439189) CREATININE (test code = 6.30 mg/dL 0.60-1.25 H 2011888356) CALCIUM (test code = 8.4 mg/dL 8.6-10.6 L 1626050666) eGFR (test code = mL/min/1.73m2 8539542074) MARINO (test code = MARINO) Association of [...] tests). Lab Interpretation Abnormal (test code = 88099-8) [facility] METABOLIC PANEL (NA, K, CL, CO2, GLUCOSE, BUN, CREATININE, CA)2022-04-12 09:29:35 Test Item Value Reference Range Interpretation Comments NA (test code = 138 mmol/L 135-145 3755398170) K (test code = 3.8 mmol/L 3.5-5.0 5507455123) CL (test code = 106 mmol/L 98-108 8138814316) CO2 TOTAL (test code = 22 mmol/L 23-31 L 8783177436) AGAP (test code = 2-16 5589380575) BUN (test code = 26 mg/dL 7-23 H 6630014291) GLUCOSE (test code = 70 mg/dL 70-110 8457154008) CREATININE (test code = 6.30 mg/dL 0.60-1.25 H 8515914060) CALCIUM (test code = 8.4 mg/dL 8.6-10.6 L 9209392025) eGFR (test code = mL/min/1.73m2 2804978849) MARINO (test code = MARINO) Association of [...] tests). Lab Interpretation Abnormal (test code = 47847-2) [facility]2022-10-28 09:26:33 Test Item Value Reference Range Interpretation Comments MAGNESIUM (test code = 6068903439) 2.5 mg/dL 1.7-2.4 H Lab Interpretation (test code = Abnormal 37266-1) [facility]2022-10-28 09:26:33 Test Item Value Reference Range Interpretation Comments PHOSPHORUS (test code = 2630451162) 4.2 mg/dL 2.5-5.0 Lab Interpretation (test code = Normal 28550-1) [facility]2022-10-28 09:26:33 Test Item Value Reference Range Interpretation Comments MAGNESIUM (test code = 2965047897) 2.5 mg/dL 1.7-2.4 H Lab Interpretation (test code = Abnormal 48290-5) [id number] 09:26:33 Test Item Value Reference Range Interpretation Comments PHOSPHORUS (test code = 8005784672) 4.2 mg/dL 2.5-5.0 Lab Interpretation (test code = Normal 40570-1) [facility] WITHOUT [id number] 09:08:13 Test Item Value Reference Range Interpretation Comments WBC (test code = 6690-2) See_Comment [A utomated message] The system [employer] generated this result transmit rudolph reference range : 4.20 - 10.70 10*3/?L. The reference range was not used to interpret this result as normal/abnormal . RBC (test code = 789-8) See_Comment L [Au tomated message] The system [employer] generated this result transmit rudolph reference range [...] 777-3) See_Comment [Au tomated message] The system [employer] generated this result transmit rudolph reference range : 150 - 328 10*3/?L. The reference range was not used to interpret this result as normal/abnormal . MPV (test code = 11.6 fL 9.8-13.0 51399-5) RDW-CV (test code = 15.6 % 12.1-15.4 H 788-0) RDW-SD (test code = 48.4 fL 38.5-51.6 14215-1) NRBC x10^3 (test code = See_Comment [Au tomated message] 5872110859) The system [employer] generated this result transmit rudolph reference range : 10*3/?L. The reference range was not used to interpret this result as normal/abnormal . NRBC/100 WBC (test code See_Comment [Au tomated message] = 7754172074) The system [facility] generated this result transmit rudolph reference range : 0.0 - 10.0 /100 WBC s. The reference r adama was not used to interpret this result as normal/abnormal . IPF % (test code = 4262833236) Lab Interpretation (test Abnormal code = 34410-3) [facility] WITHOUT [id number] 09:08:13 Test Item Value Reference Range Interpretation Comments WBC (test code = 6690-2) See_Comment [A utomated message] The system [employer] generated this result transmit rudolph reference range : 4.20 - 10.70 10*3/?L. The reference range was not used to interpret this result as normal/abnormal . RBC (test code = 789-8) See_Comment L [Au tomated message] The system [employer] generated this result transmit rudolph reference range [...] 777-3) See_Comment [Au tomated message] The system [employer] generated this result transmit rudolph reference range : 150 - 328 10*3/?L. The reference range was not used to interpret this result as normal/abnormal . MPV (test code = 11.6 fL 9.8-13.0 13313-7) RDW-CV (test code = 15.6 % 12.1-15.4 H 788-0) RDW-SD (test code = 48.4 fL 38.5-51.6 82486-2) NRBC x10^3 (test code = See_Comment [Au tomated message] 2737423922) The system [employer] generated this result transmit rudolph reference range : 10*3/?L. The reference range was not used to interpret this result as normal/abnormal . NRBC/100 WBC (test code See_Comment [Au tomated message] = 3134608249) The system [employer] generated this result transmit rudolph reference range : 0.0 - 10.0 /100 WBC s. The reference r adama was not used to interpret this result as normal/abnormal . IPF % (test code = 2099541583) Lab Interpretation (test Abnormal code = 26759-4) [facility] (for use with Heparin Drip)2022-04-12 05:39:48 Test Item Value Reference Range Interpretation Comments APTT Patient (test code See_Comment [Au tomated message] = 3173-2) The system [employer] generated this result transmitted ref erence range: 26 - 36 Seconds. The reference range was not used to int erpret this result as normal/abnormal . Lab Interpretation (test Abnormal code = 74393-5) [facility] (for use with Heparin Drip)2022-04-12 05:39:48 Test Item Value Reference Range Interpretation Comments APTT Patient (test code See_Comment [Au tomated message] = 3173-2) The system [employer] generated this result transmitted ref erence range: 26 - 36 Seconds. The reference range was not used to int erpret this result as normal/abnormal . Lab Interpretation (test Abnormal code = 28616-6) [facility] GLUCOSE (AUTOMATED)2022-04-12 01:50:33 Test Item Value Reference Range Interpretation Comments POCT GLU (test code = 9202486797) 146 mg/dL 70-110 H Lab Interpretation (test code = Abnormal 60744-5) [facility] GLUCOSE (AUTOMATED)2022-04-12 01:50:33 Test Item Value Reference Range Interpretation Comments POCT GLU (test code = 4998463427) 146 mg/dL 70-110 H Lab Interpretation (test code = Abnormal 39849-0) [facility] GLUCOSE (AUTOMATED)2022-04-11 22:53:38 Test Item Value Reference Range Interpretation Comments POCT GLU (test code = 3867792260) 163 mg/dL 70-110 H Lab Interpretation (test code = Abnormal 29975-7) [facility] GLUCOSE (AUTOMATED)2022-04-11 22:53:38 Test Item Value Reference Range Interpretation Comments POCT GLU (test code = 5589658523) 163 mg/dL 70-110 H Lab Interpretation (test code = Abnormal 71753-3) [facility] (for use with Heparin Infusion)2022-04-11 18:54:56 Test Item Value Reference Range Interpretation Comments APTT Patient (test code = See_Comment [ Automated message] 3173-2) The system [employer] generated this result transmitted ref erence range: 26 - 36 Seconds. The re ference range was not u sed to interpret this result as normal/abnor mal. Lab Interpretation (test Normal code = 86205-2) [facility] (for use with Heparin Infusion)2022-04-11 18:54:56 Test Item Value Reference Range Interpretation Comments APTT Patient (test code = See_Comment [ Automated message] 3173-2) The system [employer] generated this result transmitted ref erence range: 26 - 36 Seconds. The re ference range was not u sed to interpret this result as normal/abnor mal. Lab Interpretation (test Normal code = 08806-9) [facility] (for use with Heparin Infusion)2022-04-11 18:54:56 Test Item Value Reference Range Interpretation Comments APTT Patient (test code = See_Comment [ Automated message] 3173-2) The system [employer] generated this result transmitted ref erence range: 26 - 36 Seconds. The re ference range was not u sed to interpret this result as normal/abnor mal. Lab Interpretation (test Normal code = 16233-2) [facility] GLUCOSE (AUTOMATED)2022-04-11 17:46:56 Test Item Value Reference Range Interpretation Comments POCT GLU (test code = 4258684354) 137 mg/dL 70-110 H Lab Interpretation (test code = Abnormal 38422-2) [facility] GLUCOSE (AUTOMATED)2022-04-11 17:46:56 Test Item Value Reference Range Interpretation Comments POCT GLU (test code = 3083875592) 137 mg/dL 70-110 H Lab Interpretation (test code = Abnormal 26827-2) [facility] GLUCOSE (AUTOMATED)2022-04-11 17:46:56 Test Item Value Reference Range Interpretation Comments POCT GLU (test code = 5221541426) 137 mg/dL 70-110 H Lab Interpretation (test code = Abnormal 84348-2) [facility] GLUCOSE (AUTOMATED)2022-04-11 13:38:30 Test Item Value Reference Range Interpretation Comments POCT GLU (test code = 9858378817) 184 mg/dL 70-110 H Lab Interpretation (test code = Abnormal 07069-3) [facility] GLUCOSE (AUTOMATED)2022-04-11 13:38:30 Test Item Value Reference Range Interpretation Comments POCT GLU (test code = 4287782419) 184 mg/dL 70-110 H Lab Interpretation (test code = Abnormal 71506-2) [facility] GLUCOSE (AUTOMATED)2022-04-11 13:38:30 Test Item Value Reference Range Interpretation Comments POCT GLU (test code = 2475155409) 184 mg/dL 70-110 H Lab Interpretation (test code = Abnormal 35502-4) [facility] Metabolic Panel (NA, K, CL, CO2, GLUCOSE, BUN, CREATININE, CA)2022-04-11 05:57:34 Test Item Value Reference Range Interpretation Comments NA (test code = 133 mmol/L 135-145 L 3651618785) K (test code = 4.6 mmol/L 3.5-5.0 9033227324) CL (test code = 103 mmol/L 98-108 6588914177) CO2 TOTAL (test code = 21 mmol/L 23-31 L 7894708321) AGAP (test code = 2-16 2895813358) BUN (test code = 17 mg/dL 7-23 4796167467) GLUCOSE (test code = 177 mg/dL 70-110 H 3658978734) CREATININE (test code = 4.35 mg/dL 0.60-1.25 H 1518369220) CALCIUM (test code = 8.7 mg/dL 8.6-10.6 5644978607) eGFR (test code = mL/min/1.73m2 9461965649) MARINO (test code = MARINO) Association of [...] tests). Lab Interpretation Abnormal (test code = 56802-7) [facility] Siafp1197-57-42 05:57:34 Test Item Value Reference Range Interpretation Comments MAGNESIUM (test code = 3843665910) 1.9 mg/dL 1.7-2.4 Lab Interpretation (test code = Normal 45124-9) [facility] Fzezh0374-52-57 05:57:34 Test Item Value Reference Range Interpretation Comments PHOSPHORUS (test code = 0712967013) 4.5 mg/dL 2.5-5.0 Lab Interpretation (test code = Normal 82150-0) [facility] (NA, K, CL, CO2, GLUCOSE, BUN, CREATININE, CA)2022-04-11 05:57:34 Test Item Value Reference Range Interpretation Comments NA (test code = 133 mmol/L 135-145 L 0888287972) K (test code = 4.6 mmol/L 3.5-5.0 9655367008) CL (test code = 103 mmol/L 98-108 1620747069) CO2 TOTAL (test code = 21 mmol/L 23-31 L 4894373596) AGAP (test code = 2-16 2183714206) BUN (test code = 17 mg/dL 7-23 0428032439) GLUCOSE (test code = 177 mg/dL 70-110 H 6155718874) CREATININE (test code = 4.35 mg/dL 0.60-1.25 H 4598864210) CALCIUM (test code = 8.7 mg/dL 8.6-10.6 9779903789) eGFR (test code = mL/min/1.73m2 9215902895) MARINO (test code = MARINO) Association of [...] tests). Lab Interpretation Abnormal (test code = 41924-8) [facility] Cakcy4359-32-93 05:57:34 Test Item Value Reference Range Interpretation Comments MAGNESIUM (test code = 8818467545) 1.9 mg/dL 1.7-2.4 Lab Interpretation (test code = Normal 75978-4) [facility] Nqdim7427-23-11 05:57:34 Test Item Value Reference Range Interpretation Comments PHOSPHORUS (test code = 6832213330) 4.5 mg/dL 2.5-5.0 Lab Interpretation (test code = Normal 47168-8) [facility] (NA, K, CL, CO2, GLUCOSE, BUN, CREATININE, CA)2022-04-11 05:57:34 Test Item Value Reference Range Interpretation Comments NA (test code = 133 mmol/L 135-145 L 0184183552) K (test code = 4.6 mmol/L 3.5-5.0 5359743288) CL (test code = 103 mmol/L 98-108 1798132416) CO2 TOTAL (test code = 21 mmol/L 23-31 L 9708475161) AGAP (test code = 2-16 7465774674) BUN (test code = 17 mg/dL 7-23 9896293430) GLUCOSE (test code = 177 mg/dL 70-110 H 2627096290) CREATININE (test code = 4.35 mg/dL 0.60-1.25 H 3703479290) CALCIUM (test code = 8.7 mg/dL 8.6-10.6 4158625506) eGFR (test code = mL/min/1.73m2 2436525348) MARINO (test code = MARINO) Association of [...] tests). Lab Interpretation Abnormal (test code = 97608-4) [facility] Vicmx0867-21-80 05:57:34 Test Item Value Reference Range Interpretation Comments MAGNESIUM (test code = 9794232285) 1.9 mg/dL 1.7-2.4 Lab Interpretation (test code = Normal 76327-6) [facility] Zcjcq2382-44-34 05:57:34 Test Item Value Reference Range Interpretation Comments PHOSPHORUS (test code = 8113444544) 4.5 mg/dL 2.5-5.0 Lab Interpretation (test code = Normal 42900-1) [facility] with Guofeuddcymq5435-83-93 05:34:27 Test Item Value Reference Range Interpretation Comments WBC (test code = See_Comment H [Automated 0190-2) message] The system which generated this result transmit rudolph reference range : 4.20 - 10.70 10*3/?L. The reference range was not used to interpret this result as normal/abnormal . RBC (test code = See_Comment L [Automated 509-8) message] The system which generated this result [...] RDW-SD (test code = 46.6 fL 38.5-51.6 57851-2) RDW-CV (test code = 14.6 % 12.1-15.4 788-0) PLT (test code = See_Comment [Automated 777-3) message] The system which generated this result transmit rudolph reference range : 150 - 328 10*3/ ?L. The reference range was not u sed to interpret th is result as normal/abnormal . MPV (test code = 11.3 fL 9.8-13.0 81853-3) NRBC/100 WBC (test See_Comment [Automat ed code = 4125294850) message] The system which generated this result transmit rudolph reference range : 0.0 - 10.0 /100 WBCs. The reference range was not used to interpret this result as normal/abnormal . NRBC x10^3 (test code See_Comment [Auto mated = 6926185299) message] The system which generated this result transmit rudolph reference range : 10*3/?L. The reference range was not used to interpret this result as normal/abnormal . GRAN MAT (NEUT) % 90.4 % (test code = 770-8) IMM GRAN % (test code 0.80 % = 2689323423) LYMPH % (test code = 4.0 % 736-9) MONO % (test code = 4.5 % 5905-5) EOS % (test code = 0.1 % 713-8) BASO % (test code = 0.2 % 706-2) GRAN MAT x10^3(ANC) 13.99 10*3/uL 1.99-6.95 H (test code = 4090541689) IMM GRAN x10^3 (test 0.13 10*3/uL 0.00-0.06 H code = 3840116460) LYMPH x10^3 (test code 0.62 10*3/uL 1.09-3.23 L = 731-0) MONO x10^3 (test code 0.70 10*3/uL 0.36-1.02 = 742-7) EOS x10^3 (test code = 0.06-0.53 L 711-2) BASO x10^3 (test code 0.03 10*3/uL 0.01-0.09 = 704-7) Lab Interpretation Abnormal (test code = 23692-7) [facility] with Maaoboxpnqce4572-56-94 05:34:27 Test Item Value Reference Range Interpretation [...] RDW-SD (test code = 46.6 fL 38.5-51.6 96569-0) RDW-CV (test code = 14.6 % 12.1-15.4 788-0) PLT (test code = See_Comment [Automated 777-3) message] The system which generated this result transmit rudolph reference range : 150 - 328 10*3/ ?L. The reference range was not u sed to interpret th is result as normal/abnormal . MPV (test code = 11.3 fL 9.8-13.0 85169-3) NRBC/100 WBC (test See_Comment [Automat ed code = 5389805124) message] The system which generated this result transmit rudolph reference range : 0.0 - 10.0 /100 WBCs. The reference range was not used to interpret this result as normal/abnormal . NRBC x10^3 (test code See_Comment [Auto mated = 0077069017) message] The system which generated this result transmit rudolph reference range : 10*3/?L. The reference range was not used to interpret this result as normal/abnormal . GRAN MAT (NEUT) % 90.4 % (test code = 770-8) IMM GRAN % (test code 0.80 % = 7261012202) LYMPH % (test code = 4.0 % 736-9) MONO % (test code = 4.5 % 5905-5) EOS % (test code = 0.1 % 713-8) BASO % (test code = 0.2 % 706-2) GRAN MAT x10^3(ANC) 13.99 10*3/uL 1.99-6.95 H (test code = 5133889301) IMM GRAN x10^3 (test 0.13 10*3/uL 0.00-0.06 H code = 1836175036) LYMPH x10^3 (test code 0.62 10*3/uL 1.09-3.23 L = 731-0) MONO x10^3 (test code 0.70 10*3/uL 0.36-1.02 = 742-7) EOS x10^3 (test code = 0.06-0.53 L 711-2) BASO x10^3 (test code 0.03 10*3/uL 0.01-0.09 = 704-7) Lab Interpretation Abnormal (test code = 56175-9) [facility] with Nolnnobvbrir2370-75-39 05:34:27 Test Item Value Reference Range Interpretation [...] RDW-SD (test code = 46.6 fL 38.5-51.6 54491-8) RDW-CV (test code = 14.6 % 12.1-15.4 788-0) PLT (test code = See_Comment [Automated 777-3) message] The system which generated this result transmit rudolph reference range : 150 - 328 10*3/ ?L. The reference range was not u sed to interpret th is result as normal/abnormal . MPV (test code = 11.3 fL 9.8-13.0 31428-2) NRBC/100 WBC (test See_Comment [Automat ed code = 7123359418) message] The system which generated this result transmit rudolph reference range : 0.0 - 10.0 /100 WBCs. The reference range was not used to interpret this result as normal/abnormal . NRBC x10^3 (test code See_Comment [Auto mated = 3935615626) message] The system which generated this result transmit rudolph reference range : 10*3/?L. The reference range was not used to interpret this result as normal/abnormal . GRAN MAT (NEUT) % 90.4 % (test code = 770-8) IMM GRAN % (test code 0.80 % = 3128818772) LYMPH % (test code = 4.0 % 736-9) MONO % (test code = 4.5 % 5905-5) EOS % (test code = 0.1 % 713-8) BASO % (test code = 0.2 % 706-2) GRAN MAT x10^3(ANC) 13.99 10*3/uL 1.99-6.95 H (test code = 6856129011) IMM GRAN x10^3 (test 0.13 10*3/uL 0.00-0.06 H code = 3695019709) LYMPH x10^3 (test code 0.62 10*3/uL 1.09-3.23 L = 731-0) MONO x10^3 (test code 0.70 10*3/uL 0.36-1.02 = 742-7) EOS x10^3 (test code = 0.06-0.53 L 711-2) BASO x10^3 (test code 0.03 10*3/uL 0.01-0.09 = 704-7) Lab Interpretation Abnormal (test code = 66637-0) [facility] + Lactic Tjld0607-26-28 05:33:21 Test Item Value Reference Range Interpretation Comments PH (test code = 2) 7.35-7.45 PCO2 (test code = See_Comment L [Automate d 2711149475) message] The sy stem which generated this result transmitted reference range : 35 - 45 mmHg. The reference range was not used to interpret this result as normal/abnormal . PO2 (test code = See_Comment H [Automated 0684118064) message] The sy stem which generated this result transmitted reference range : 80 - 100 mmHg. The reference range was not used to interpret this result as normal/abnormal . HCO3 (test code = See_Comment L [Automate d 7706444920) message] The sy stem which generated this result transmitted reference range : 22 - 26 mEq/L. The reference range was not used to interpret this result as normal/abnormal . BE (test code = See_Comment L [Automated 8236554944) message] The sy stem which generated this result transmitted reference range : -3.0 - 3.0 mEq/ L. The reference r adama was not used to interpret this result as normal/abnormal . THB (test code = 10.8 g/dL 13.5-18.0 L 9187832684) %O2HB (test code = 99.1 % 94.0-99.0 H 5211483638) %COHB ART (test code = 0.3 % 0.0-1.5 3878726884) %METHB ART (test code = 0.0 % 0.4-1.5 L 4372328870) VOL%O2 ART (test code = 15.6 % 15.0-23.0 9003092021) NA (test code = 131 mmol/L 135-145 L 1587307518) K+ (test code = 4.5 mmol/L 3.5-5.0 9042642405) AC CA IONZ (test code = 5.00 mg/dL 4.50-5.30 7763301865) GLUCOSE (test code = 174 mg/dL 70-110 H 2038361019) LACTIC ACID (test code 1.30 mmol/L 0.50-2.20 = 5142744722) Lab Interpretation Abnormal (test code = 07827-0) [facility] + Lactic Loza4061-26-11 05:33:21 Test Item Value Reference Range Interpretation Comments PH (test code = 2) 7.35-7.45 PCO2 (test code = See_Comment L [Automate d 8673235197) message] The sy stem which generated this result transmitted reference range : 35 - 45 mmHg. The reference range was not used to interpret this result as normal/abnormal . PO2 (test code = See_Comment H [Automated 2795953014) message] The sy stem which generated this result transmitted reference range : 80 - 100 mmHg. The reference range was not used to interpret this result as normal/abnormal . HCO3 (test code = See_Comment L [Automate d 7886651208) message] The sy stem which generated this result transmitted reference range : 22 - 26 mEq/L. The reference range was not used to interpret this result as normal/abnormal . BE (test code = See_Comment L [Automated 7648981312) message] The sy stem which generated this result transmitted reference range : -3.0 - 3.0 mEq/ L. The reference r adama was not used to interpret this result as normal/abnormal . THB (test code = 10.8 g/dL 13.5-18.0 L 8607153528) %O2HB (test code = 99.1 % 94.0-99.0 H 6781919243) %COHB ART (test code = 0.3 % 0.0-1.5 0902400343) %METHB ART (test code = 0.0 % 0.4-1.5 L 0916539351) VOL%O2 ART (test code = 15.6 % 15.0-23.0 8738462334) NA (test code = 131 mmol/L 135-145 L 1398721232) K+ (test code = 4.5 mmol/L 3.5-5.0 9166026254) AC CA IONZ (test code = 5.00 mg/dL 4.50-5.30 2625471437) GLUCOSE (test code = 174 mg/dL 70-110 H 7456668133) LACTIC ACID (test code 1.30 mmol/L 0.50-2.20 = 1191460702) Lab Interpretation Abnormal (test code = 70691-8) [facility] + Lactic Iwhm6908-12-41 05:33:21 Test Item Value Reference Range Interpretation Comments PH (test code = 2) 7.35-7.45 PCO2 (test code = See_Comment L [Automate d 0455428126) message] The sy stem which generated this result transmitted reference range : 35 - 45 mmHg. The reference range was not used to interpret this result as normal/abnormal . PO2 (test code = See_Comment H [Automated 2975655166) message] The sy stem which generated this result transmitted reference range : 80 - 100 mmHg. The reference range was not used to interpret this result as normal/abnormal . HCO3 (test code = See_Comment L [Automate d 4713778061) message] The sy stem which generated this result transmitted reference range : 22 - 26 mEq/L. The reference range was not used to interpret this result as normal/abnormal . BE (test code = See_Comment L [Automated 9093011374) message] The sy stem which generated this result transmitted reference range : -3.0 - 3.0 mEq/ L. The reference r adama was not used to interpret this result as normal/abnormal . THB (test code = 10.8 g/dL 13.5-18.0 L 6866149234) %O2HB (test code = 99.1 % 94.0-99.0 H 0366389511) %COHB ART (test code = 0.3 % 0.0-1.5 4159671958) %METHB ART (test code = 0.0 % 0.4-1.5 L 9970063520) VOL%O2 ART (test code = 15.6 % 15.0-23.0 8195334708) NA (test code = 131 mmol/L 135-145 L 9096349702) K+ (test code = 4.5 mmol/L 3.5-5.0 2414715548) AC CA IONZ (test code = 5.00 mg/dL 4.50-5.30 9522845489) GLUCOSE (test code = 174 mg/dL 70-110 H 3311891203) LACTIC ACID (test code 1.30 mmol/L 0.50-2.20 = 1046389228) Lab Interpretation Abnormal (test code = 36871-6) [facility] Packed RBC (in units), 2 Units 2022-04-11 02:31:54 Test Item Value Reference Range Interpretation Comments Cross Match Result Compatible (test code = 4409) ISBT Blood Type Code (test code = 398543) Unit Blood Type (test O Pos code = 4410) Unit Number (test [id number] code = 4411) Blood Expiration Date & Time (test code = 925357) Status Information Issued (test code = 4412) Product Red Blood Cells Identification (test code = 4413) Product Code (test [id number] Performed at [facility] code = 4414) Laboratory Services - [facility] Blood [address] [address] Free: [phone] A No. [id number] [facility] Packed RBC (in units), 2 Units 2022-04-11 02:31:54 Test Item Value Reference Range Interpretation Comments Cross Match Result Compatible (test code = 4409) ISBT Blood Type Code (test code = 452854) Unit Blood Type (test O Pos code = 4410) Unit Number (test [id number] code = 4411) Blood Expiration Date & Time (test code = 881250) Status Information Issued (test code = 4412) Product Red Blood Cells Identification (test code = 4413) Product Code (test [id number] Performed at [facility] code = 4414) Laboratory Services - [facility] Blood [address] [place] [address] Free: [phone] A No. [id number] [facility] Packed RBC (in units), 2 Units 2022-04-11 02:31:54 Test Item Value Reference Range Interpretation Comments Cross Match Result Compatible (test code = 4409) ISBT Blood Type Code (test code = 654074) Unit Blood Type (test O Pos code = 4410) Unit Number (test [id number] code = 4411) Blood Expiration Date & Time (test code = 303923) Status Information Issued (test code = 4412) Product Red Blood Cells Identification (test code = 4413) Product Code (test S0202N62 Performed at [facility] code = 4414) Laboratory Services - [facility] Blood [address] [address]Fobq Free: [phone] A No. [id number] [facility] DIALYSIS MFW6911-49-04 17:30:03 Test Item Value Reference Range Interpretation Comments PostBUN (test code = 5417971596) 13 mg/dl 7-23 Lab Interpretation (test code = Normal 41414-7) [facility] DIALYSIS GMO0890-36-99 17:30:03 Test Item Value Reference Range Interpretation Comments PostBUN (test code = 6894494856) 13 mg/dl 7-23 Lab Interpretation (test code = Normal 71215-5) [facility] DIALYSIS IRH1136-34-76 17:30:03 Test Item Value Reference Range Interpretation Comments PostBUN (test code = 0244443769) 13 mg/dl 7-23 Lab Interpretation (test code = Normal 72641-1) [facility] GLUCOSE (AUTOMATED)2022-04-10 14:35:17 Test Item Value Reference Range Interpretation Comments POCT GLU (test code = 8926480862) 118 mg/dL 70-110 H Lab Interpretation (test code = Abnormal 34863-9) [facility] GLUCOSE (AUTOMATED)2022-04-10 14:35:17 Test Item Value Reference Range Interpretation Comments POCT GLU (test code = 9183387960) 118 mg/dL 70-110 H Lab Interpretation (test code = Abnormal 29458-1) [facility] GLUCOSE (AUTOMATED)2022-04-10 14:35:17 Test Item Value Reference Range Interpretation Comments POCT GLU (test code = 7585493986) 118 mg/dL 70-110 H Lab Interpretation (test code = Abnormal 66515-8) [facility]20[facility] 10:16:01 Test Item Value Reference Range Interpretation Comments MAGNESIUM (test code = 8388363332) 2.6 mg/dL 1.7-2.4 H Lab Interpretation (test code = Abnormal 84841-5) [facility]2022-10-26 10:16:01 Test Item Value Reference Range Interpretation Comments PHOSPHORUS (test code = 4572414456) 4.3 mg/dL 2.5-5.0 Lab Interpretation (test code = Normal 95325-0) [facility] (NA, K, CL, CO2, GLUCOSE, BUN, CREATININE, CA)2022-04-10 10:16:01 Test Item Value Reference Range Interpretation Comments NA (test code = 136 mmol/L 135-145 9924388401) K (test code = 4.8 mmol/L 3.5-5.0 Slight 4413857375) hemolysis CL (test code = 102 mmol/L 98-108 6636230587) CO2 TOTAL (test code 27 mmol/L 23-31 = 5248023723) AGAP (test code = 2-16 8752159867) BUN (test code = 36 mg/dL 7-23 H Slight 1108700713) hemolysis GLUCOSE (test code = 143 mg/dL 70-110 H 4301629558) CREATININE (test code 6.92 mg/dL 0.60-1.25 H = 5384174549) CALCIUM (test code = 8.7 mg/dL 8.6-10.6 5104661502) eGFR (test code = mL/min/1.73m2 9999535790) MARINO (test code = MARINO) Association of [...] tests). Lab Interpretation Abnormal (test code = 40576-0) [facility]2022-[facility]-26 10:16:01 Test Item Value Reference Range Interpretation Comments MAGNESIUM (test code = 1112988392) 2.6 mg/dL 1.7-2.4 H Lab Interpretation (test code = Abnormal 40397-2) [facility]2022-10-26 10:16:01 Test Item Value Reference Range Interpretation Comments PHOSPHORUS (test code = 5227394164) 4.3 mg/dL 2.5-5.0 Lab Interpretation (test code = Normal 13961-8) [facility] (NA, K, CL, CO2, GLUCOSE, BUN, CREATININE, CA)2022-04-10 10:16:01 Test Item Value Reference Range Interpretation Comments NA (test code = 136 mmol/L 135-145 2319695565) K (test code = 4.8 mmol/L 3.5-5.0 Slight 4011970303) hemolysis CL (test code = 102 mmol/L 98-108 4995273499) CO2 TOTAL (test code 27 mmol/L 23-31 = 5655896323) AGAP (test code = 2-16 5534180011) BUN (test code = 36 mg/dL 7-23 H Slight 9086484490) hemolysis GLUCOSE (test code = 143 mg/dL 70-110 H 9947957731) CREATININE (test code 6.92 mg/dL 0.60-1.25 H = 7735868623) CALCIUM (test code = 8.7 mg/dL 8.6-10.6 5361372689) eGFR (test code = mL/min/1.73m2 1941079713) MARINO (test code = MARINO) Association of [...] tests). Lab Interpretation Abnormal (test code = 10096-8) [facility]2022-[facility] 10:16:01 Test Item Value Reference Range Interpretation Comments MAGNESIUM (test code = 2861048012) 2.6 mg/dL 1.7-2.4 H Lab Interpretation (test code = Abnormal 63620-3) [facility]2022-[facility]-26 10:16:01 Test Item Value Reference Range Interpretation Comments PHOSPHORUS (test code = 1703605467) 4.3 mg/dL 2.5-5.0 Lab Interpretation (test code = Normal 08947-0) [facility] (NA, K, CL, CO2, GLUCOSE, BUN, CREATININE, CA)2022-04-10 10:16:01 Test Item Value Reference Range Interpretation Comments NA (test code = 136 mmol/L 135-145 6384850506) K (test code = 4.8 mmol/L 3.5-5.0 Slight 1837635899) hemolysis CL (test code = 102 mmol/L 98-108 8096194709) CO2 TOTAL (test code 27 mmol/L 23-31 = 0254384533) AGAP (test code = 2-16 9056585590) BUN (test code = 36 mg/dL 7-23 H Slight 0236434952) hemolysis GLUCOSE (test code = 143 mg/dL 70-110 H 6168273424) CREATININE (test code 6.92 mg/dL 0.60-1.25 H = 4110629514) CALCIUM (test code = 8.7 mg/dL 8.6-10.6 4716165866) eGFR (test code = mL/min/1.73m2 1288535980) MARINO (test code = MARINO) Association of [...] tests). Lab Interpretation Abnormal (test code = 76374-8) [facility] WITH [id number] 10:04:20 Test Item Value Reference Range Interpretation [...] RDW-SD (test code = 47.7 fL 38.5-51.6 56273-0) RDW-CV (test code = 15.1 % 12.1-15.4 788-0) PLT (test code = See_Comment [Automated 777-3) message] The sy stem which generated this result transmitted reference range : 150 - 328 10*3/ ?L. The reference r adama was not used to interpret this result as normal/abnormal . MPV (test code = 12.0 fL 9.8-13.0 44484-9) NRBC/100 WBC (test See_Comment [Automat ed code = 4494748629) message] The system which generated this result transmitted reference range : 0.0 - 10.0 /100 WBCs. The refer ence range was not u sed to interpret th is result as normal/abnormal . NRBC x10^3 (test code See_Comment [Auto mated = 7030440407) message] The s ystem which generated this result transmitted reference range : 10*3/?L. The reference range was not used to interpret this result as normal/abnormal . GRAN MAT (NEUT) % 70.6 % (test code = 770-8) IMM GRAN % (test code 0.50 % = 8856740222) LYMPH % (test code = 13.5 % 736-9) MONO % (test code = 11.3 % 5905-5) EOS % (test code = 3.1 % 713-8) BASO % (test code = 1.0 % 706-2) GRAN MAT x10^3(ANC) 5.71 10*3/uL 1.99-6.95 (test code = 7931707619) IMM GRAN x10^3 (test 0.04 10*3/uL 0.00-0.06 code = 9638191949) LYMPH x10^3 (test code 1.09 10*3/uL 1.09-3.23 = 731-0) MONO x10^3 (test code 0.91 10*3/uL 0.36-1.02 = 742-7) EOS x10^3 (test code = 0.25 10*3/uL 0.06-0.53 711-2) BASO x10^3 (test code 0.08 10*3/uL 0.01-0.09 = 704-7) Lab Interpretation Abnormal (test code = 97568-0) [facility] WITH [id number] 10:04:20 Test Item Value Reference Range Interpretation Comments WBC (test code = See_Comment [Automated 3190-2) message] The sy stem which generated this result transmitted reference range : 4.20 - 10.70 10*3/?L. The reference range was not used to interpret this result as normal/abnormal . RBC (test code = See_Comment L [Automated 699-8) message] The sy stem which generated this [...] RDW-SD (test code = 47.7 fL 38.5-51.6 97281-2) RDW-CV (test code = 15.1 % 12.1-15.4 788-0) PLT (test code = See_Comment [Automated 777-3) message] The sy stem which generated this result transmitted reference range : 150 - 328 10*3/ ?L. The reference r adama was not used to interpret this result as normal/abnormal . MPV (test code = 12.0 fL 9.8-13.0 83711-0) NRBC/100 WBC (test See_Comment [Automat ed code = 3377012898) message] The system which generated this result transmitted reference range : 0.0 - 10.0 /100 WBCs. The refer ence range was not u sed to interpret th is result as normal/abnormal . NRBC x10^3 (test code See_Comment [Auto mated = 6661370675) message] The s ystem which generated this result transmitted reference range : 10*3/?L. The reference range was not used to interpret this result as normal/abnormal . GRAN MAT (NEUT) % 70.6 % (test code = 770-8) IMM GRAN % (test code 0.50 % = 9300665104) LYMPH % (test code = 13.5 % 736-9) MONO % (test code = 11.3 % 5905-5) EOS % (test code = 3.1 % 713-8) BASO % (test code = 1.0 % 706-2) GRAN MAT x10^3(ANC) 5.71 10*3/uL 1.99-6.95 (test code = 5628648138) IMM GRAN x10^3 (test 0.04 10*3/uL 0.00-0.06 code = 1386119111) LYMPH x10^3 (test code 1.09 10*3/uL 1.09-3.23 = 731-0) MONO x10^3 (test code 0.91 10*3/uL 0.36-1.02 = 742-7) EOS x10^3 (test code = 0.25 10*3/uL 0.06-0.53 711-2) BASO x10^3 (test code 0.08 10*3/uL 0.01-0.09 = 704-7) Lab Interpretation Abnormal (test code = 17577-7) [facility] WITH [id number] 10:04:20 Test Item Value Reference Range Interpretation Comments WBC (test code = See_Comment [Automated 1390-2) message] The sy stem which generated this [...] RDW-SD (test code = 47.7 fL 38.5-51.6 27675-1) RDW-CV (test code = 15.1 % 12.1-15.4 788-0) PLT (test code = See_Comment [Automated 777-3) message] The sy stem which generated this result transmitted reference range : 150 - 328 10*3/ ?L. The reference r adama was not used to interpret this result as normal/abnormal . MPV (test code = 12.0 fL 9.8-13.0 70372-2) NRBC/100 WBC (test See_Comment [Automat ed code = 4341680637) message] The system which generated this result transmitted reference range : 0.0 - 10.0 /100 WBCs. The refer ence range was not u sed to interpret th is result as normal/abnormal . NRBC x10^3 (test code See_Comment [Auto mated = 7092819596) message] The s ystem which generated this result transmitted reference range : 10*3/?L. The reference range was not used to interpret this result as normal/abnormal . GRAN MAT (NEUT) % 70.6 % (test code = 770-8) IMM GRAN % (test code 0.50 % = 2263012509) LYMPH % (test code = 13.5 % 736-9) MONO % (test code = 11.3 % 5905-5) EOS % (test code = 3.1 % 713-8) BASO % (test code = 1.0 % 706-2) GRAN MAT x10^3(ANC) 5.71 10*3/uL 1.99-6.95 (test code = 5420787296) IMM GRAN x10^3 (test 0.04 10*3/uL 0.00-0.06 code = 7035950300) LYMPH x10^3 (test code 1.09 10*3/uL 1.09-3.23 = 731-0) MONO x10^3 (test code 0.91 10*3/uL 0.36-1.02 = 742-7) EOS x10^3 (test code = 0.25 10*3/uL 0.06-0.53 711-2) BASO x10^3 (test code 0.08 10*3/uL 0.01-0.09 = 704-7) Lab Interpretation Abnormal (test code = 48660-0) [facility] GLUCOSE (AUTOMATED)2022-04-10 01:36:00 Test Item Value Reference Range Interpretation Comments POCT GLU (test code = 8313169338) 136 mg/dL 70-110 H Lab Interpretation (test code = Abnormal 78709-1) [facility] GLUCOSE (AUTOMATED)2022-04-10 01:36:00 Test Item Value Reference Range Interpretation Comments POCT GLU (test code = 8564958876) 136 mg/dL 70-110 H Lab Interpretation (test code = Abnormal 24391-7) [facility] GLUCOSE (AUTOMATED)2022-04-10 01:36:00 Test Item Value Reference Range Interpretation Comments POCT GLU (test code = 3229312779) 136 mg/dL 70-110 H Lab Interpretation (test code = Abnormal 14300-8) [facility] GLUCOSE (AUTOMATED)2022-04-09 21:26:15 Test Item Value Reference Range Interpretation Comments POCT GLU (test code = 169 mg/dL 70-110 H Notifi ed Provider [id number]) Lab Interpretation (test Abnormal code = 47704-6) [facility] GLUCOSE (AUTOMATED)2022-04-09 21:26:15 Test Item Value Reference Range Interpretation Comments POCT GLU (test code = 169 mg/dL 70-110 H Notifi ed Provider [id number]) Lab Interpretation (test Abnormal code = 79251-6) [facility] GLUCOSE (AUTOMATED)2022-04-09 21:26:15 Test Item Value Reference Range Interpretation Comments POCT GLU (test code = 169 mg/dL 70-110 H Notifi ed Provider [id number]) Lab Interpretation (test Abnormal code = 32167-8) [facility] GLUCOSE (AUTOMATED)2022-04-09 21:26:15 Test Item Value Reference Range Interpretation Comments POCT GLU (test code = 169 mg/dL 70-110 H Notifi ed Provider [id number]) Lab Interpretation (test Abnormal code = 09052-1) [facility] GLUCOSE (AUTOMATED)2022-04-09 16:47:32 Test Item Value Reference Range Interpretation Comments POCT GLU (test code = 93 mg/dL 70-110 Notifi ed Provider [id number]) Lab Interpretation (test Normal code = 68810-4) [facility] GLUCOSE (AUTOMATED)2022-04-09 16:47:32 Test Item Value Reference Range Interpretation Comments POCT GLU (test code = 93 mg/dL 70-110 Notifi ed Provider [id number]) Lab Interpretation (test Normal code = 97891-6) [facility] GLUCOSE (AUTOMATED)2022-04-09 16:47:32 Test Item Value Reference Range Interpretation Comments POCT GLU (test code = 93 mg/dL 70-110 Notifi ed Provider [id number]) Lab Interpretation (test Normal code = 24715-4) [facility] 16:47:32 Test Item Value Reference Range Interpretation Comments POCT GLU (test code = 93 mg/dL 70-110 Notifi ed Provider [id number]) Lab Interpretation (test Normal code = 12304-3) [facility] and Screen - ONCE [id number] 16:43:57 Test Item Value Reference Range Interpretation Comments ABO & RH (test code O POSITIVE Performe d at [facility] = 20) Laboratory [facility] Blood Bank[address] [place] [address] s [address]Gkpp Free: [phone] A No. [id number] IAT (test code = Negative Performed a t [facility] 1185) Laboratory [facility] Blood [address] s [address]Zeqv Free: [phone] A No. [id number] [facility] and Screen - ONCE [id number] 16:43:57 Test Item Value Reference Range Interpretation Comments ABO & RH (test code O POSITIVE Performe d at [facility] = 20) Laboratory [facility] Blood [address] s [address]vd Free: [phone] A No. [id number] IAT (test code = Negative Performed a t [facility] 1185) Laboratory [facility] Blood [address] s [address]Iusk Free: [phone] A No. [id number] [facility] and Screen - ONCE [id number] 16:43:57 Test Item Value Reference Range Interpretation Comments ABO & RH (test code O POSITIVE Performe d at [facility] = 20) Laboratory [facility] Blood [address] s [address]Ycim Free: [phone] A No. [id number] IAT (test code = Negative Performed a t [facility] 1185) Laboratory [facility] Blood [address] [place] [address] s [address]Etgh Free: [phone] A No. [id number] [facility] [id number] 16:43:57 Test Item Value Reference Range Interpretation Comments ABO & RH (test code O POSITIVE Performe d at [facility] = 20) Laboratory [facility] Blood Bank3 [address] [facility] s [address]Gutv Free: [phone] A No. [id number] IAT (test code = Negative Performed a t [facility] 1185) Laboratory [facility] Blood Bank3 [address] [facility] s [address]Oosa Free: [phone] A No. [id number] [facility] GLUCOSE (AUTOMATED)2022-04-09 13:06:59 Test Item Value Reference Range Interpretation Comments POCT GLU (test code = 105 mg/dL 70-110 Notifi ed Provider [id number]) Lab Interpretation (test Normal code = 71715-7) [facility] GLUCOSE (AUTOMATED)2022-04-09 13:06:59 Test Item Value Reference Range Interpretation Comments POCT GLU (test code = 105 mg/dL 70-110 Notifi ed Provider [id number]) Lab Interpretation (test Normal code = 54572-2) [facility] GLUCOSE (AUTOMATED)2022-04-09 13:06:59 Test Item Value Reference Range Interpretation Comments POCT GLU (test code = 105 mg/dL 70-110 Notifi ed Provider [id number]) Lab Interpretation (test Normal code = 83918-9) [facility] GLUCOSE (AUTOMATED)2022-04-09 13:06:59 Test Item Value Reference Range Interpretation Comments POCT GLU (test code = 105 mg/dL 70-110 Notifi ed Provider [id number]) Lab Interpretation (test Normal code = 52775-5) [facility] METABOLIC PANEL (NA, K, CL, CO2, GLUCOSE, BUN, CREATININE, CA)2022-04-09 11:11:37 Test Item Value Reference Range Interpretation Comments NA (test code = 138 mmol/L 135-145 3743053692) K (test code = 4.6 mmol/L 3.5-5 3610858692) CL (test code = 103 mmol/L 98-108 2605080096) CO2 TOTAL (test code = 25 mmol/L 23-31 8911765937) AGAP (test code = 2-16 4585061967) BUN (test code = 22 mg/dL 7-23 5265759196) GLUCOSE (test code = 99 mg/dL 70-110 4652094969) CREATININE (test code = 5.04 mg/dL 0.6-1.25 H 6488994899) CALCIUM (test code = 9.5 mg/dL 8.6-10.6 5233336180) eGFR (test code = mL/min/1.73m2 1565363298) MARINO (test code = MARINO) Association of [...] tests). Lab Interpretation Abnormal (test code = 77930-5) [facility] METABOLIC PANEL (NA, K, CL, CO2, GLUCOSE, BUN, CREATININE, CA)2022-04-09 11:11:37 Test Item Value Reference Range Interpretation Comments NA (test code = 138 mmol/L 135-145 2699864190) K (test code = 4.6 mmol/L 3.5-5.0 3178830639) CL (test code = 103 mmol/L 98-108 5525639911) CO2 TOTAL (test code = 25 mmol/L 23-31 8977573743) AGAP (test code = 2-16 5501572290) BUN (test code = 22 mg/dL 7-23 0949399762) GLUCOSE (test code = 99 mg/dL 70-110 1931166945) CREATININE (test code = 5.04 mg/dL 0.60-1.25 H 7269142905) CALCIUM (test code = 9.5 mg/dL 8.6-10.6 2368645551) eGFR (test code = mL/min/1.73m2 0977209801) MARINO (test code = MARINO) Association of [...] tests). Lab Interpretation Abnormal (test code = 76353-1) [facility] METABOLIC PANEL (NA, K, CL, CO2, GLUCOSE, BUN, CREATININE, CA)2022-04-09 11:11:37 Test Item Value Reference Range Interpretation Comments NA (test code = 138 mmol/L 135-145 3761197725) K (test code = 4.6 mmol/L 3.5-5.0 0928581138) CL (test code = 103 mmol/L 98-108 2232031629) CO2 TOTAL (test code = 25 mmol/L 23-31 6102896577) AGAP (test code = 2-16 1735870688) BUN (test code = 22 mg/dL 7-23 4357998622) GLUCOSE (test code = 99 mg/dL 70-110 6833663954) CREATININE (test code = 5.04 mg/dL 0.60-1.25 H 1895600526) CALCIUM (test code = 9.5 mg/dL 8.6-10.6 2885856131) eGFR (test code = mL/min/1.73m2 8899898775) MARINO (test code = MARINO) Association of [...] tests). Lab Interpretation Abnormal (test code = 53163-0) [facility] METABOLIC PANEL (NA, K, CL, CO2, GLUCOSE, BUN, CREATININE, CA)2022-04-09 11:11:37 Test Item Value Reference Range Interpretation Comments NA (test code = 138 mmol/L 135-145 3792291981) K (test code = 4.6 mmol/L 3.5-5.0 6933485605) CL (test code = 103 mmol/L 98-108 7947071706) CO2 TOTAL (test code = 25 mmol/L 23-31 6431416718) AGAP (test code = 2-16 4585918073) BUN (test code = 22 mg/dL 7-23 5732296492) GLUCOSE (test code = 99 mg/dL 70-110 2366044906) CREATININE (test code = 5.04 mg/dL 0.60-1.25 H 2034104334) CALCIUM (test code = 9.5 mg/dL 8.6-10.6 2590452040) eGFR (test code = mL/min/1.73m2 0139449848) MARINO (test code = MARINO) Association of [...] tests). Lab Interpretation Abnormal (test code = 60736-2) [facility] WITH [id number] 10:18:31 Test Item Value Reference Range Interpretation Comments WBC (test code = See_Comment [Automated 9490-2) message] The sy stem which generated this result transmitted reference range : 4.20 - 10.70 10*3/?L. The reference range was not used to interpret this result as normal/abnormal . RBC (test code = See_Comment [Automated 589-8) message] The sy stem which generated this [...] RDW-SD (test code = 47.3 fL 38.5-51.6 23422-9) RDW-CV (test code = 14.6 % 12.1-15.4 788-0) PLT (test code = See_Comment H [Automated 777-3) message] The sy stem which generated this result transmitted reference range : 150 - 328 10*3/ ?L. The reference r adama was not used to interpret this result as normal/abnormal . MPV (test code = 11.1 fL 9.8-13 45374-3) NRBC/100 WBC (test See_Comment [Automat ed code = 8852711392) message] The system which generated this result transmitted reference range : 0.0 - 10.0 /100 WBCs. The refer ence range was not u sed to interpret th is result as normal/abnormal . NRBC x10^3 (test code See_Comment [Auto mated = 2233590855) message] The s ystem which generated this result transmitted reference range : 10*3/?L. The reference range was not used to interpret this result as normal/abnormal . GRAN MAT (NEUT) % 72.8 % (test code = 770-8) IMM GRAN % (test code 0.90 % = 2019255714) LYMPH % (test code = 12.4 % 736-9) MONO % (test code = 10.0 % 5905-5) EOS % (test code = 3.2 % 713-8) BASO % (test code = 0.7 % 706-2) GRAN MAT x10^3(ANC) 5.93 10*3/uL 1.99-6.95 (test code = 3034235070) IMM GRAN x10^3 (test 0.07 10*3/uL 0-0.06 H code = 2914312259) LYMPH x10^3 (test code 1.01 10*3/uL 1.09-3.23 L = 731-0) MONO x10^3 (test code 0.81 10*3/uL 0.36-1.02 = 742-7) EOS x10^3 (test code = 0.26 10*3/uL 0.06-0.53 711-2) BASO x10^3 (test code 0.06 10*3/uL 0.01-0.09 = 704-7) Lab Interpretation Abnormal (test code = 77336-3) [facility] WITH [id number] 10:18:31 Test Item Value Reference Range Interpretation [...] RDW-SD (test code = 47.3 fL 38.5-51.6 17174-7) RDW-CV (test code = 14.6 % 12.1-15.4 788-0) PLT (test code = See_Comment H [Automated 777-3) message] The sy stem which generated this result transmitted reference range : 150 - 328 10*3/ ?L. The reference r adama was not used to interpret this result as normal/abnormal . MPV (test code = 11.1 fL 9.8-13.0 21800-3) NRBC/100 WBC (test See_Comment [Automat ed code = 2790219491) message] The system which generated this result transmitted reference range : 0.0 - 10.0 /100 WBCs. The refer ence range was not u sed to interpret th is result as normal/abnormal . NRBC x10^3 (test code See_Comment [Auto mated = 3287391347) message] The s ystem which generated this result transmitted reference range : 10*3/?L. The reference range was not used to interpret this result as normal/abnormal . GRAN MAT (NEUT) % 72.8 % (test code = 770-8) IMM GRAN % (test code 0.90 % = 3344573502) LYMPH % (test code = 12.4 % 736-9) MONO % (test code = 10.0 % 5905-5) EOS % (test code = 3.2 % 713-8) BASO % (test code = 0.7 % 706-2) GRAN MAT x10^3(ANC) 5.93 10*3/uL 1.99-6.95 (test code = 3675900045) IMM GRAN x10^3 (test 0.07 10*3/uL 0.00-0.06 H code = 0679009002) LYMPH x10^3 (test code 1.01 10*3/uL 1.09-3.23 L = 731-0) MONO x10^3 (test code 0.81 10*3/uL 0.36-1.02 = 742-7) EOS x10^3 (test code = 0.26 10*3/uL 0.06-0.53 711-2) BASO x10^3 (test code 0.06 10*3/uL 0.01-0.09 = 704-7) Lab Interpretation Abnormal (test code = 21779-8) [facility] WITH [id number] 10:18:31 Test Item Value Reference Range Interpretation Comments WBC (test code = See_Comment [Automated 6690-2) message] The sy stem which generated this result transmitted reference range : 4.20 - 10.70 10*3/?L. The reference range was not used to interpret this result as normal/abnormal . RBC (test code = See_Comment [Automated 279-8) message] The sy stem which generated this [...] RDW-SD (test code = 47.3 fL 38.5-51.6 41013-6) RDW-CV (test code = 14.6 % 12.1-15.4 788-0) PLT (test code = See_Comment H [Automated 777-3) message] The sy stem which generated this result transmitted reference range : 150 - 328 10*3/ ?L. The reference r adama was not used to interpret this result as normal/abnormal . MPV (test code = 11.1 fL 9.8-13.0 75762-0) NRBC/100 WBC (test See_Comment [Automat ed code = 1268539485) message] The system which generated this result transmitted reference range : 0.0 - 10.0 /100 WBCs. The refer ence range was not u sed to interpret th is result as normal/abnormal . NRBC x10^3 (test code See_Comment [Auto mated = 8993911114) message] The s ystem which generated this result transmitted reference range : 10*3/?L. The reference range was not used to interpret this result as normal/abnormal . GRAN MAT (NEUT) % 72.8 % (test code = 770-8) IMM GRAN % (test code 0.90 % = 8845043662) LYMPH % (test code = 12.4 % 736-9) MONO % (test code = 10.0 % 5905-5) EOS % (test code = 3.2 % 713-8) BASO % (test code = 0.7 % 706-2) GRAN MAT x10^3(ANC) 5.93 10*3/uL 1.99-6.95 (test code = 0973247467) IMM GRAN x10^3 (test 0.07 10*3/uL 0.00-0.06 H code = 4691870629) LYMPH x10^3 (test code 1.01 10*3/uL 1.09-3.23 L = 731-0) MONO x10^3 (test code 0.81 10*3/uL 0.36-1.02 = 742-7) EOS x10^3 (test code = 0.26 10*3/uL 0.06-0.53 711-2) BASO x10^3 (test code 0.06 10*3/uL 0.01-0.09 = 704-7) Lab Interpretation Abnormal (test code = 92575-5) [facility] WITH [id number] 10:18:31 Test Item Value Reference Range Interpretation [...] RDW-SD (test code = 47.3 fL 38.5-51.6 56372-7) RDW-CV (test code = 14.6 % 12.1-15.4 788-0) PLT (test code = See_Comment H [Automated 777-3) message] The sy stem which generated this result transmitted reference range : 150 - 328 10*3/ ?L. The reference r adama was not used to interpret this result as normal/abnormal . MPV (test code = 11.1 fL 9.8-13.0 38524-5) NRBC/100 WBC (test See_Comment [Automat ed code = 9955979463) message] The system which generated this result transmitted reference range : 0.0 - 10.0 /100 WBCs. The refer ence range was not u sed to interpret th is result as normal/abnormal . NRBC x10^3 (test code See_Comment [Auto mated = 0059154808) message] The s ystem which generated this result transmitted reference range : 10*3/?L. The reference range was not used to interpret this result as normal/abnormal . GRAN MAT (NEUT) % 72.8 % (test code = 770-8) IMM GRAN % (test code 0.90 % = 6933738987) LYMPH % (test code = 12.4 % 736-9) MONO % (test code = 10.0 % 5905-5) EOS % (test code = 3.2 % 713-8) BASO % (test code = 0.7 % 706-2) GRAN MAT x10^3(ANC) 5.93 10*3/uL 1.99-6.95 (test code = 0143919401) IMM GRAN x10^3 (test 0.07 10*3/uL 0.00-0.06 H code = 0234012048) LYMPH x10^3 (test code 1.01 10*3/uL 1.09-3.23 L = 731-0) MONO x10^3 (test code 0.81 10*3/uL 0.36-1.02 = 742-7) EOS x10^3 (test code = 0.26 10*3/uL 0.06-0.53 711-2) BASO x10^3 (test code 0.06 10*3/uL 0.01-0.09 = 704-7) Lab Interpretation Abnormal (test code = 12830-9) [facility] GLUCOSE (AUTOMATED)2022-04-09 01:30:53 Test Item Value Reference Range Interpretation Comments POCT GLU (test code = 3782696870) 98 mg/dL 70-110 Lab Interpretation (test code = Normal 60551-3) [facility] GLUCOSE (AUTOMATED)2022-04-09 01:30:53 Test Item Value Reference Range Interpretation Comments POCT GLU (test code = 6342132439) 98 mg/dL 70-110 Lab Interpretation (test code = Normal 99828-0) [facility] GLUCOSE (AUTOMATED)2022-04-09 01:30:53 Test Item Value Reference Range Interpretation Comments POCT GLU (test code = 9493519693) 98 mg/dL 70-110 Lab Interpretation (test code = Normal 97594-5) [facility] GLUCOSE (AUTOMATED)2022-04-09 01:30:53 Test Item Value Reference Range Interpretation Comments POCT GLU (test code = 3340962662) 98 mg/dL 70-110 Lab Interpretation (test code = Normal 04559-9) [facility] 23:48:54 Test Item Value Reference Range Interpretation Comments POCT GLU (test code = 4026848440) 94 mg/dL 70-110 Lab Interpretation (test code = Normal 61522-8) [facility] 23:48:54 Test Item Value Reference Range Interpretation Comments POCT GLU (test code = 3615079653) 94 mg/dL 70-110 Lab Interpretation (test code = Normal 38678-7) [facility] 23:48:54 Test Item Value Reference Range Interpretation Comments POCT GLU (test code = 2801299635) 94 mg/dL 70-110 Lab Interpretation (test code = Normal 01409-5) [facility] GLUCOSE (AUTOMATED)2022-04-08 23:48:54 Test Item Value Reference Range Interpretation Comments POCT GLU (test code = 6809914383) 94 mg/dL 70-110 Lab Interpretation (test code = Normal 62607-0) [facility] GLUCOSE (AUTOMATED)2022-04-08 17:25:23 Test Item Value Reference Range Interpretation Comments POCT GLU (test code = 3521852273) 104 mg/dL 70-110 Lab Interpretation (test code = Normal 63226-5) [facility] GLUCOSE (AUTOMATED)2022-04-08 17:25:23 Test Item Value Reference Range Interpretation Comments POCT GLU (test code = 6023274445) 104 mg/dL 70-110 Lab Interpretation (test code = Normal 77799-0) [facility] 17:25:23 Test Item Value Reference Range Interpretation Comments POCT GLU (test code = 4184209604) 104 mg/dL 70-110 Lab Interpretation (test code = Normal 91297-4) [facility] 17:25:23 Test Item Value Reference Range Interpretation Comments POCT GLU (test code = 8788814198) 104 mg/dL 70-110 Lab Interpretation (test code = Normal 87055-5) [facility] GLUCOSE (AUTOMATED)2022-04-08 12:51:02 Test Item Value Reference Range Interpretation Comments POCT GLU (test code = 5118565893) 149 mg/dL 70-110 H Lab Interpretation (test code = Abnormal 04235-4[facility] 12:51:02 Test Item Value Reference Range Interpretation Comments POCT GLU (test code = 6709349165) 149 mg/dL 70-110 H Lab Interpretation (test code = Abnormal 42022-8) [facility] GLUCOSE (AUTOMATED)2022-04-08 12:51:02 Test Item Value Reference Range Interpretation Comments POCT GLU (test code = 2009071980) 149 mg/dL 70-110 H Lab Interpretation (test code = Abnormal 65390-1) [facility] GLUCOSE (AUTOMATED)2022-04-08 12:51:02 Test Item Value Reference Range Interpretation Comments POCT GLU (test code = 2535720220) 149 mg/dL 70-110 H Lab Interpretation (test code = Abnormal 75793-7[facility]21 Test Item Value Reference Range Interpretation Comments POCT GLU (test code = 5206330187) 129 mg/dL 70-110 H Lab Interpretation (test code = Abnormal 59575-7) [facility] 01:30:21 Test Item Value Reference Range Interpretation Comments POCT GLU (test code = 7232373994) 129 mg/dL 70-110 H Lab Interpretation (test code = Abnormal 02366-9) [facility] 01:30:21 Test Item Value Reference Range Interpretation Comments POCT GLU (test code = 7141187735) 129 mg/dL 70-110 H Lab Interpretation (test code = Abnormal 50776-1) [facility] 01:30:21 Test Item Value Reference Range Interpretation Comments POCT GLU (test code = 5563452871) 129 mg/dL 70-110 H Lab Interpretation (test code = Abnormal 25290-9) [facility] GLUCOSE (AUTOMATED)2022-04-07 20:42:13 Test Item Value Reference Range Interpretation Comments POCT GLU (test code = 83 mg/dL 70-110 Notifi ed Provider [id number]) Lab Interpretation (test Normal code = 57327-1) [facility] GLUCOSE (AUTOMATED)2022-04-07 20:42:13 Test Item Value Reference Range Interpretation Comments POCT GLU (test code = 83 mg/dL 70-110 Notifi ed Provider [id number]) Lab Interpretation (test Normal code = 63992-4) [facility] GLUCOSE (AUTOMATED)2022-04-07 20:42:13 Test Item Value Reference Range Interpretation Comments POCT GLU (test code = 83 mg/dL 70-110 Notifi ed Provider [id number]) Lab Interpretation (test Normal code = 33362-7) [facility] GLUCOSE (AUTOMATED)2022-04-07 20:42:13 Test Item Value Reference Range Interpretation Comments POCT GLU (test code = 83 mg/dL 70-110 Notifi ed Provider [id number]) Lab Interpretation (test Normal code = 98000-0) [facility] GLUCOSE (AUTOMATED)2022-04-07 16:28:03 Test Item Value Reference Range Interpretation Comments POCT GLU (test code = 104 mg/dL 70-110 Notifi ed Provider [id number]) Lab Interpretation (test Normal code = 19455-2) [facility] GLUCOSE (AUTOMATED)2022-04-07 16:28:03 Test Item Value Reference Range Interpretation Comments POCT GLU (test code = 104 mg/dL 70-110 Notifi ed Provider [id number]) Lab Interpretation (test Normal code = 25842-7) [facility] GLUCOSE (AUTOMATED)2022-04-07 16:28:03 Test Item Value Reference Range Interpretation Comments POCT GLU (test code = 104 mg/dL 70-110 Notifi ed Provider [id number]) Lab Interpretation (test Normal code = 15536-7) [facility] GLUCOSE (AUTOMATED)2022-04-07 16:28:03 Test Item Value Reference Range Interpretation Comments POCT GLU (test code = 104 mg/dL 70-110 Notifi ed Provider [id number]) Lab Interpretation (test Normal code = 03613-1) [facility] GLUCOSE (AUTOMATED)2022-04-07 02:18:10 Test Item Value Reference Range Interpretation Comments POCT GLU (test code = 0224288151) 159 mg/dL 70-110 H Lab Interpretation (test code = Abnormal 40248-3) [facility] 02:18:10 Test Item Value Reference Range Interpretation Comments POCT GLU (test code = 9083344957) 159 mg/dL 70-110 H Lab Interpretation (test code = Abnormal 81069-8) [facility] GLUCOSE (AUTOMATED)2022-04-07 02:18:10 Test Item Value Reference Range Interpretation Comments POCT GLU (test code = 7144897476) 159 mg/dL 70-110 H Lab Interpretation (test code = Abnormal 49798-9) [facility] GLUCOSE (AUTOMATED)2022-04-07 02:18:10 Test Item Value Reference Range Interpretation Comments POCT GLU (test code = 9323564335) 159 mg/dL 70-110 H Lab Interpretation (test code = Abnormal 78493-9) [facility] GLUCOSE (AUTOMATED)2022-04-06 22:04:37 Test Item Value Reference Range Interpretation Comments POCT GLU (test code = 3689044592) 160 mg/dL 70-110 H Lab Interpretation (test code = Abnormal 33158-5) [facility] GLUCOSE (AUTOMATED)2022-04-06 22:04:37 Test Item Value Reference Range Interpretation Comments POCT GLU (test code = 5000257292) 160 mg/dL 70-110 H Lab Interpretation (test code = Abnormal 13429-9) [facility] GLUCOSE (AUTOMATED)2022-04-06 22:04:37 Test Item Value Reference Range Interpretation Comments POCT GLU (test code = 0448492089) 160 mg/dL 70-110 H Lab Interpretation (test code = Abnormal 89452-8) [facility] GLUCOSE (AUTOMATED)2022-04-06 22:04:37 Test Item Value Reference Range Interpretation Comments POCT GLU (test code = 4371362705) 160 mg/dL 70-110 H Lab Interpretation (test code = Abnormal 81911-1) [facility] GLUCOSE (AUTOMATED)2022-04-06 16:39:08 Test Item Value Reference Range Interpretation Comments POCT GLU (test code = 2352932195) 69 mg/dL 70-110 L Lab Interpretation (test code = Abnormal 35495-4) [facility] GLUCOSE (AUTOMATED)2022-04-06 16:39:08 Test Item Value Reference Range Interpretation Comments POCT GLU (test code = 9070588502) 69 mg/dL 70-110 L Lab Interpretation (test code = Abnormal 09534-9) [facility] GLUCOSE (AUTOMATED)2022-04-06 16:39:08 Test Item Value Reference Range Interpretation Comments POCT GLU (test code = 4430102722) 69 mg/dL 70-110 L Lab Interpretation (test code = Abnormal 71127-1) [facility] GLUCOSE (AUTOMATED)2022-04-06 16:39:08 Test Item Value Reference Range Interpretation Comments POCT GLU (test code = 2955231081) 69 mg/dL 70-110 L Lab Interpretation (test code = Abnormal 05548-6) [facility] GLUCOSE (AUTOMATED)2022-04-06 13:18:58 Test Item Value Reference Range Interpretation Comments POCT GLU (test code = 4118313565) 76 mg/dL 70-110 Lab Interpretation (test code = Normal 82428-5) [facility] GLUCOSE (AUTOMATED)2022-04-06 13:18:58 Test Item Value Reference Range Interpretation Comments POCT GLU (test code = 6947804967) 76 mg/dL 70-110 Lab Interpretation (test code = Normal 58601-9) [facility] GLUCOSE (AUTOMATED)2022-04-06 13:18:58 Test Item Value Reference Range Interpretation Comments POCT GLU (test code = 6707288336) 76 mg/dL 70-110 Lab Interpretation (test code = Normal 63444-1) [facility] GLUCOSE (AUTOMATED)2022-04-06 13:18:58 Test Item Value Reference Range Interpretation Comments POCT GLU (test code = 3095046965) 76 mg/dL 70-110 Lab Interpretation (test code = Normal 61490-7) [facility] (NA, K, CL, CO2, GLUCOSE, BUN, CREATININE, CA)2022-04-06 10:42:52 Test Item Value Reference Range Interpretation Comments NA (test code = 134 mmol/L 135-145 L 2523162050) K (test code = 4.3 mmol/L 3.5-5 4756014612) CL (test code = 98 mmol/L 98-108 9664022771) CO2 TOTAL (test code = 26 mmol/L 23-31 7258464767) AGAP (test code = 2-16 0820683871) BUN (test code = 30 mg/dL 7-23 H 4842484878) GLUCOSE (test code = 94 mg/dL 70-110 9021159974) CREATININE (test code = 6.02 mg/dL 0.6-1.25 H 0577283582) CALCIUM (test code = 9.0 mg/dL 8.6-10.6 9343489959) eGFR (test code = mL/min/1.73m2 5817692848) MARINO (test code = MARINO) Association of [...] tests). Lab Interpretation Abnormal (test code = 27073-5) [facility] (NA, K, CL, CO2, GLUCOSE, BUN, CREATININE, CA)2022-04-06 10:42:52 Test Item Value Reference Range Interpretation Comments NA (test code = 134 mmol/L 135-145 L 4262086422) K (test code = 4.3 mmol/L 3.5-5.0 4579669980) CL (test code = 98 mmol/L 98-108 5584234171) CO2 TOTAL (test code = 26 mmol/L 23-31 4514903086) AGAP (test code = 2-16 7644712356) BUN (test code = 30 mg/dL 7-23 H 1249000374) GLUCOSE (test code = 94 mg/dL 70-110 0327463488) CREATININE (test code = 6.02 mg/dL 0.60-1.25 H 1709715861) CALCIUM (test code = 9.0 mg/dL 8.6-10.6 6112733274) eGFR (test code = mL/min/1.73m2 9222080376) MARINO (test code = MARINO) Association of [...] tests). Lab Interpretation Abnormal (test code = 80644-2) [facility] METABOLIC PANEL (NA, K, CL, CO2, GLUCOSE, BUN, CREATININE, CA)2022-04-06 10:42:52 Test Item Value Reference Range Interpretation Comments NA (test code = 134 mmol/L 135-145 L 0306092229) K (test code = 4.3 mmol/L 3.5-5.0 4038065343) CL (test code = 98 mmol/L 98-108 5380742351) CO2 TOTAL (test code = 26 mmol/L 23-31 5292879074) AGAP (test code = 2-16 7223338284) BUN (test code = 30 mg/dL 7-23 H 0326424819) GLUCOSE (test code = 94 mg/dL 70-110 6396892862) CREATININE (test code = 6.02 mg/dL 0.60-1.25 H 5386586325) CALCIUM (test code = 9.0 mg/dL 8.6-10.6 8390327036) eGFR (test code = mL/min/1.73m2 3687344496) MARINO (test code = MARINO) Association of [...] tests). Lab Interpretation Abnormal (test code = 12718-0) [facility] METABOLIC PANEL (NA, K, CL, CO2, GLUCOSE, BUN, CREATININE, CA)2022-04-06 10:42:52 Test Item Value Reference Range Interpretation Comments NA (test code = 134 mmol/L 135-145 L 3410286295) K (test code = 4.3 mmol/L 3.5-5.0 9596598852) CL (test code = 98 mmol/L 98-108 1793476562) CO2 TOTAL (test code = 26 mmol/L 23-31 2622436238) AGAP (test code = 2-16 3287258413) BUN (test code = 30 mg/dL 7-23 H 4000027678) GLUCOSE (test code = 94 mg/dL 70-110 9894658210) CREATININE (test code = 6.02 mg/dL 0.60-1.25 H 3222469943) CALCIUM (test code = 9.0 mg/dL 8.6-10.6 4113992140) eGFR (test code = mL/min/1.73m2 6351165601) MARINO (test code = MARINO) Association of [...] tests). Lab Interpretation Abnormal (test code = 67929-5) [facility] WITH [id number] 09:47:29 Test Item Value Reference Range Interpretation Comments WBC (test code = See_Comment [Automated 8890-2) message] The sy stem which generated this [...] RDW-SD (test code = 47.4 fL 38.5-51.6 66807-0) RDW-CV (test code = 14.7 % 12.1-15.4 788-0) PLT (test code = See_Comment H [Automated 777-3) message] The sy stem which generated this result transmitted reference range : 150 - 328 10*3/ ?L. The reference r adama was not used to interpret this result as normal/abnormal . MPV (test code = 11.7 fL 9.8-13 62991-2) NRBC/100 WBC (test See_Comment [Automat ed code = 6147858322) message] The system which generated this result transmitted reference range : 0.0 - 10.0 /100 WBCs. The refer ence range was not u sed to interpret th is result as normal/abnormal . NRBC x10^3 (test code See_Comment [Auto mated = 3990436549) message] The s ystem which generated this result transmitted reference range : 10*3/?L. The reference range was not used to interpret this result as normal/abnormal . GRAN MAT (NEUT) % 73.3 % (test code = 770-8) IMM GRAN % (test code 0.70 % = 4575902753) LYMPH % (test code = 13.3 % 736-9) MONO % (test code = 8.6 % 5905-5) EOS % (test code = 3.4 % 713-8) BASO % (test code = 0.7 % 706-2) GRAN MAT x10^3(ANC) 7.15 10*3/uL 1.99-6.95 H (test code = 5749578898) IMM GRAN x10^3 (test 0.07 10*3/uL 0-0.06 H code = 3839294587) LYMPH x10^3 (test code 1.30 10*3/uL 1.09-3.23 = 731-0) MONO x10^3 (test code 0.84 10*3/uL 0.36-1.02 = 742-7) EOS x10^3 (test code = 0.33 10*3/uL 0.06-0.53 711-2) BASO x10^3 (test code 0.07 10*3/uL 0.01-0.09 = 704-7) Lab Interpretation Abnormal (test code = 54240-9) [facility] WITH [id number] 09:47:29 Test Item Value Reference Range Interpretation [...] RDW-SD (test code = 47.4 fL 38.5-51.6 74668-6) RDW-CV (test code = 14.7 % 12.1-15.4 788-0) PLT (test code = See_Comment H [Automated 777-3) message] The sy stem which generated this result transmitted reference range : 150 - 328 10*3/ ?L. The reference r adama was not used to interpret this result as normal/abnormal . MPV (test code = 11.7 fL 9.8-13.0 54017-7) NRBC/100 WBC (test See_Comment [Automat ed code = 9691067704) message] The system which generated this result transmitted reference range : 0.0 - 10.0 /100 WBCs. The refer ence range was not u sed to interpret th is result as normal/abnormal . NRBC x10^3 (test code See_Comment [Auto mated = 9482775945) message] The s ystem which generated this result transmitted reference range : 10*3/?L. The reference range was not used to interpret this result as normal/abnormal . GRAN MAT (NEUT) % 73.3 % (test code = 770-8) IMM GRAN % (test code 0.70 % = 8384521238) LYMPH % (test code = 13.3 % 736-9) MONO % (test code = 8.6 % 5905-5) EOS % (test code = 3.4 % 713-8) BASO % (test code = 0.7 % 706-2) GRAN MAT x10^3(ANC) 7.15 10*3/uL 1.99-6.95 H (test code = 9809835808) IMM GRAN x10^3 (test 0.07 10*3/uL 0.00-0.06 H code = 8168842514) LYMPH x10^3 (test code 1.30 10*3/uL 1.09-3.23 = 731-0) MONO x10^3 (test code 0.84 10*3/uL 0.36-1.02 = 742-7) EOS x10^3 (test code = 0.33 10*3/uL 0.06-0.53 711-2) BASO x10^3 (test code 0.07 10*3/uL 0.01-0.09 = 704-7) Lab Interpretation Abnormal (test code = 76730-3) [facility] WITH [id number] 09:47:29 Test Item Value Reference Range Interpretation [...] RDW-SD (test code = 47.4 fL 38.5-51.6 87478-7) RDW-CV (test code = 14.7 % 12.1-15.4 788-0) PLT (test code = See_Comment H [Automated 777-3) message] The sy stem which generated this result transmitted reference range : 150 - 328 10*3/ ?L. The reference r adama was not used to interpret this result as normal/abnormal . MPV (test code = 11.7 fL 9.8-13.0 84775-9) NRBC/100 WBC (test See_Comment [Automat ed code = 9571731166) message] The system which generated this result transmitted reference range : 0.0 - 10.0 /100 WBCs. The refer ence range was not u sed to interpret th is result as normal/abnormal . NRBC x10^3 (test code See_Comment [Auto mated = 8616419710) message] The s ystem which generated this result transmitted reference range : 10*3/?L. The reference range was not used to interpret this result as normal/abnormal . GRAN MAT (NEUT) % 73.3 % (test code = 770-8) IMM GRAN % (test code 0.70 % = 6340868046) LYMPH % (test code = 13.3 % 736-9) MONO % (test code = 8.6 % 5905-5) EOS % (test code = 3.4 % 713-8) BASO % (test code = 0.7 % 706-2) GRAN MAT x10^3(ANC) 7.15 10*3/uL 1.99-6.95 H (test code = 3368772310) IMM GRAN x10^3 (test 0.07 10*3/uL 0.00-0.06 H code = 4806743862) LYMPH x10^3 (test code 1.30 10*3/uL 1.09-3.23 = 731-0) MONO x10^3 (test code 0.84 10*3/uL 0.36-1.02 = 742-7) EOS x10^3 (test code = 0.33 10*3/uL 0.06-0.53 711-2) BASO x10^3 (test code 0.07 10*3/uL 0.01-0.09 = 704-7) Lab Interpretation Abnormal (test code = 90661-0) [facility] WITH [id number] 09:47:29 Test Item Value Reference Range Interpretation [...] RDW-SD (test code = 47.4 fL 38.5-51.6 35051-1) RDW-CV (test code = 14.7 % 12.1-15.4 788-0) PLT (test code = See_Comment H [Automated 777-3) message] The sy stem which generated this result transmitted reference range : 150 - 328 10*3/ ?L. The reference r adama was not used to interpret this result as normal/abnormal . MPV (test code = 11.7 fL 9.8-13.0 59817-9) NRBC/100 WBC (test See_Comment [Automat ed code = 7445546339) message] The system which generated this result transmitted reference range : 0.0 - 10.0 /100 WBCs. The refer ence range was not u sed to interpret th is result as normal/abnormal . NRBC x10^3 (test code See_Comment [Auto mated = 4273081167) message] The s ystem which generated this result transmitted reference range : 10*3/?L. The reference range was not used to interpret this result as normal/abnormal . GRAN MAT (NEUT) % 73.3 % (test code = 770-8) IMM GRAN % (test code 0.70 % = 4061449737) LYMPH % (test code = 13.3 % 736-9) MONO % (test code = 8.6 % 5905-5) EOS % (test code = 3.4 % 713-8) BASO % (test code = 0.7 % 706-2) GRAN MAT x10^3(ANC) 7.15 10*3/uL 1.99-6.95 H (test code = 5556817057) IMM GRAN x10^3 (test 0.07 10*3/uL 0.00-0.06 H code = 6782210655) LYMPH x10^3 (test code 1.30 10*3/uL 1.09-3.23 = 731-0) MONO x10^3 (test code 0.84 10*3/uL 0.36-1.02 = 742-7) EOS x10^3 (test code = 0.33 10*3/uL 0.06-0.53 711-2) BASO x10^3 (test code 0.07 10*3/uL 0.01-0.09 = 704-7) Lab Interpretation Abnormal (test code = 47978-3) [facility] GLUCOSE (AUTOMATED)2022-04-06 01:14:02 Test Item Value Reference Range Interpretation Comments POCT GLU (test code = 2860242304) 130 mg/dL 70-110 H Lab Interpretation (test code = Abnormal 00362-1) [facility] GLUCOSE (AUTOMATED)2022-04-06 01:14:02 Test Item Value Reference Range Interpretation Comments POCT GLU (test code = 2922879946) 130 mg/dL 70-110 H Lab Interpretation (test code = Abnormal 95569-4) [facility] GLUCOSE (AUTOMATED)2022-04-06 01:14:02 Test Item Value Reference Range Interpretation Comments POCT GLU (test code = 7751504508) 130 mg/dL 70-110 H Lab Interpretation (test code = Abnormal 99020-1) [facility] GLUCOSE (AUTOMATED)2022-04-06 01:14:02 Test Item Value Reference Range Interpretation Comments POCT GLU (test code = 8488794932) 130 mg/dL 70-110 H Lab Interpretation (test code = Abnormal 68231-9) [facility] Surface Antibody (HBsAb)2022-04-05 23:40:00 Test Item Value Reference Range Interpretation Comments HBsAB (test code = Positive 8396063168) HBsAb mIU/mL Semi-Quantitative (test code = 8938320115) MARINO (test code = Interpretation: MARINO) ?Hepatitis B Surface Antibody ? Negative - Patient is considered to be not immune to infection with HBV. ? ? Positive - Anti-HBs detected at greater than or equal to 12 mIU/mL. ?Patient is considered to be immune to infection with HBV. ? [facility] 23:40:00 Test Item Value Reference Range Interpretation Comments HBsAB (test code = Positive 8236055316) HBsAb mIU/mL Semi-Quantitative (test code = 0429613898) MARINO (test code = Interpretation: MARINO) ?Hepatitis B Surface Antibody ? Negative - Patient is considered to be not immune to infection with HBV. ? ? Positive - Anti-HBs detected at greater than or equal to 12 mIU/mL. ?Patient is considered to be immune to infection with HBV. ? [facility]-05 23:40:00 Test Item Value Reference Range Interpretation Comments HBsAB (test code = Positive 4968577623) HBsAb mIU/mL Semi-Quantitative (test code = 5008175062) MARINO (test code = Interpretation: MARINO) ?Hepatitis B Surface Antibody ? Negative - Patient is considered to be not immune to infection with HBV. ? ? Positive - Anti-HBs detected at greater than or equal to 12 mIU/mL. ?Patient is considered to be immune to infection with HBV. ? [facility]-05 23:40:00 Test Item Value Reference Range Interpretation Comments HBsAB (test code = Positive 7098165271) HBsAb mIU/mL Semi-Quantitative (test code = 1024738444) MARINO (test code = Interpretation: MARINO) ?Hepatitis B Surface Antibody ? Negative - Patient is considered to be not immune to infection with HBV. ? ? Positive - Anti-HBs detected at greater than or equal to 12 mIU/mL. ?Patient is considered to be immune to infection with HBV. ? [facility] B Surface Antigen (HBsAg)2022-04-05 23:23:11 Test Item Value Reference Range Interpretation Comments HBsAg Semi-Quantitative (test code = Negative Negative 5195-3) [facility] B Surface Antigen (HBsAg)2022-04-05 23:23:11 Test Item Value Reference Range Interpretation Comments HBsAg Semi-Quantitative (test code = Negative Negative 5195-3) [facility] B Surface Antigen (HBsAg)2022-04-05 23:23:11 Test Item Value Reference Range Interpretation Comments HBsAg Semi-Quantitative (test code = Negative Negative 5195-3) [facility] B Surface Antigen (HBsAg)2022-04-05 23:23:11 Test Item Value Reference Range Interpretation Comments HBsAg Semi-Quantitative (test code = Negative Negative 5195-3) [facility] GLUCOSE (AUTOMATED)2022-04-05 21:40:01 Test Item Value Reference Range Interpretation Comments POCT GLU (test code = 4514949450) 91 mg/dL 70-110 Lab Interpretation (test code = Normal 15076-0) [facility] GLUCOSE (AUTOMATED)2022-04-05 21:40:01 Test Item Value Reference Range Interpretation Comments POCT GLU (test code = 2282420803) 91 mg/dL 70-110 Lab Interpretation (test code = Normal 26503-9) [facility] GLUCOSE (AUTOMATED)2022-04-05 21:40:01 Test Item Value Reference Range Interpretation Comments POCT GLU (test code = 6791166546) 91 mg/dL 70-110 Lab Interpretation (test code = Normal 87919-5) [facility] GLUCOSE (AUTOMATED)2022-04-05 21:40:01 Test Item Value Reference Range Interpretation Comments POCT GLU (test code = 1503217574) 91 mg/dL 70-110 Lab Interpretation (test code = Normal 12434-0) [facility] GLUCOSE (AUTOMATED)2022-04-05 17:02:57 Test Item Value Reference Range Interpretation Comments POCT GLU (test code = 9977492238) 101 mg/dL 70-110 Lab Interpretation (test code = Normal 29740-2) [facility] GLUCOSE (AUTOMATED)2022-04-05 17:02:57 Test Item Value Reference Range Interpretation Comments POCT GLU (test code = 4936810980) 101 mg/dL 70-110 Lab Interpretation (test code = Normal 82387-1) [facility] GLUCOSE (AUTOMATED)2022-04-05 17:02:57 Test Item Value Reference Range Interpretation Comments POCT GLU (test code = 5457455947) 101 mg/dL 70-110 Lab Interpretation (test code = Normal 10733-0) [facility] GLUCOSE (AUTOMATED)2022-04-05 17:02:57 Test Item Value Reference Range Interpretation Comments POCT GLU (test code = 7143314388) 101 mg/dL 70-110 Lab Interpretation (test code = Normal 04138-8) [facility] [id number] 16:12:14 Test Item Value Reference Range Interpretation Comments CRP (test code = 18.7 mg/dL See_Comment H [Automated message] 3404742106) The system [employer] generated this result transmit rudolph reference range : <=0.8. The refe rence range was not u sed to interpret th is result as normal/abnormal . Lab Interpretation Abnormal (test code = 46504-2) [facility] [id number] 16:12:14 Test Item Value Reference Range Interpretation Comments CRP (test code = 18.7 mg/dL See_Comment H [Automated message] 1212872936) The system [employer] generated this result transmit rudolph reference range : <=0.8. The refe rence range was not u sed to interpret th is result as normal/abnormal . Lab Interpretation Abnormal (test code = 02447-4) [facility] [id number] 16:12:14 Test Item Value Reference Range Interpretation Comments CRP (test code = 18.7 mg/dL See_Comment H [Automated message] 4247964232) The system [employer] generated this result transmit rudolph reference range : <=0.8. The refe rence range was not u sed to interpret th is result as normal/abnormal . Lab Interpretation Abnormal (test code = 63468-9) [facility] [id number] 16:12:14 Test Item Value Reference Range Interpretation Comments CRP (test code = 18.7 mg/dL See_Comment H [Automated message] 9904904243) The system [employer] generated this result transmit rudolph reference range : <=0.8. The refe rence range was not u sed to interpret th is result as normal/abnormal . Lab Interpretation Abnormal (test code = 39051-7) [facility] GLUCOSE (AUTOMATED)2022-04-05 13:35:19 Test Item Value Reference Range Interpretation Comments POCT GLU (test code = 8475465331) 76 mg/dL 70-110 Lab Interpretation (test code = Normal 54361-5) [facility] GLUCOSE (AUTOMATED)2022-04-05 13:35:19 Test Item Value Reference Range Interpretation Comments POCT GLU (test code = 9369519890) 76 mg/dL 70-110 Lab Interpretation (test code = Normal 79588-0) [facility] GLUCOSE (AUTOMATED)2022-04-05 13:35:19 Test Item Value Reference Range Interpretation Comments POCT GLU (test code = 3846117559) 76 mg/dL 70-110 Lab Interpretation (test code = Normal 10531-7) [facility] GLUCOSE (AUTOMATED)2022-04-05 13:35:19 Test Item Value Reference Range Interpretation Comments POCT GLU (test code = 2648032675) 76 mg/dL 70-110 Lab Interpretation (test code = Normal 88902-3) [facility] Metabolic Panel (NA, K, CL, CO2, GLUCOSE, BUN, CREATININE, CA)2022-04-05 10:00:31 Test Item Value Reference Range Interpretation Comments NA (test code = 136 mmol/L 135-145 0611753313) K (test code = 4.6 mmol/L 3.5-5 3200638718) CL (test code = 98 mmol/L 98-108 9633593296) CO2 TOTAL (test code = 28 mmol/L 23-31 0009506835) AGAP (test code = 2-16 6663079298) BUN (test code = 50 mg/dL 7-23 H 9940113198) GLUCOSE (test code = 74 mg/dL 70-110 0360084091) CREATININE (test code = 8.89 mg/dL 0.6-1.25 H 6580283142) CALCIUM (test code = 9.0 mg/dL 8.6-10.6 0932036606) eGFR (test code = mL/min/1.73m2 2437944483) MARINO (test code = MARINO) Association of [...] tests). Lab Interpretation Abnormal (test code = 66634-7) [facility] Metabolic Panel (NA, K, CL, CO2, GLUCOSE, BUN, CREATININE, CA)2022-04-05 10:00:31 Test Item Value Reference Range Interpretation Comments NA (test code = 136 mmol/L 135-145 4931037212) K (test code = 4.6 mmol/L 3.5-5.0 3505190134) CL (test code = 98 mmol/L 98-108 9808805647) CO2 TOTAL (test code = 28 mmol/L 23-31 7768737360) AGAP (test code = 2-16 7983451263) BUN (test code = 50 mg/dL 7-23 H 0212526558) GLUCOSE (test code = 74 mg/dL 70-110 8690338692) CREATININE (test code = 8.89 mg/dL 0.60-1.25 H 9673803557) CALCIUM (test code = 9.0 mg/dL 8.6-10.6 4385639902) eGFR (test code = mL/min/1.73m2 3983748662) MARINO (test code = MARINO) Association of [...] tests). Lab Interpretation Abnormal (test code = 07095-7) [facility] Metabolic Panel (NA, K, CL, CO2, GLUCOSE, BUN, CREATININE, CA)2022-04-05 10:00:31 Test Item Value Reference Range Interpretation Comments NA (test code = 136 mmol/L 135-145 9004580281) K (test code = 4.6 mmol/L 3.5-5.0 9123670157) CL (test code = 98 mmol/L 98-108 5211587521) CO2 TOTAL (test code = 28 mmol/L 23-31 9358596478) AGAP (test code = 2-16 7194896116) BUN (test code = 50 mg/dL 7-23 H 5523824266) GLUCOSE (test code = 74 mg/dL 70-110 8167624253) CREATININE (test code = 8.89 mg/dL 0.60-1.25 H 1408553726) CALCIUM (test code = 9.0 mg/dL 8.6-10.6 9957265442) eGFR (test code = mL/min/1.73m2 7440018562) MARINO (test code = MARINO) Association of [...] tests). Lab Interpretation Abnormal (test code = 80392-9) [facility] Metabolic Panel (NA, K, CL, CO2, GLUCOSE, BUN, CREATININE, CA)2022-04-05 10:00:31 Test Item Value Reference Range Interpretation Comments NA (test code = 136 mmol/L 135-145 5236245952) K (test code = 4.6 mmol/L 3.5-5.0 1422516688) CL (test code = 98 mmol/L 98-108 8168641795) CO2 TOTAL (test code = 28 mmol/L 23-31 2024150867) AGAP (test code = 2-16 5895622592) BUN (test code = 50 mg/dL 7-23 H 0764167666) GLUCOSE (test code = 74 mg/dL 70-110 1017321674) CREATININE (test code = 8.89 mg/dL 0.60-1.25 H 9719556535) CALCIUM (test code = 9.0 mg/dL 8.6-10.6 7909772525) eGFR (test code = mL/min/1.73m2 4873166851) MARINO (test code = MARINO) Association of [...] tests). Lab Interpretation Abnormal (test code = 32627-7) [facility] with Fzvqjyvvtycp1237-79-19 09:37:28 Test Item Value Reference Range Interpretation [...] RDW-SD (test code = 44.4 fL 38.5-51.6 84806-6) RDW-CV (test code = 14.4 % 12.1-15.4 788-0) PLT (test code = See_Comment [Automated 777-3) message] The sy stem which generated this result transmitted reference range : 150 - 328 10*3/ ?L. The reference r adama was not used to interpret this result as normal/abnormal . MPV (test code = 11.8 fL 9.8-13 45221-0) NRBC/100 WBC (test See_Comment [Automat ed code = 4279728216) message] The system which generated this result transmitted reference range : 0.0 - 10.0 /100 WBCs. The refer ence range was not u sed to interpret th is result as normal/abnormal . NRBC x10^3 (test code See_Comment [Auto mated = 9259368320) message] The s ystem which generated this result transmitted reference range : 10*3/?L. The reference range was not used to interpret this result as normal/abnormal . GRAN MAT (NEUT) % 74.7 % (test code = 770-8) IMM GRAN % (test code 0.60 % = 0845964906) LYMPH % (test code = 11.4 % 736-9) MONO % (test code = 9.6 % 5905-5) EOS % (test code = 2.8 % 713-8) BASO % (test code = 0.9 % 706-2) GRAN MAT x10^3(ANC) 7.11 10*3/uL 1.99-6.95 H (test code = 1964648996) IMM GRAN x10^3 (test 0.06 10*3/uL 0-0.06 code = 2189749128) LYMPH x10^3 (test code 1.09 10*3/uL 1.09-3.23 = 731-0) MONO x10^3 (test code 0.92 10*3/uL 0.36-1.02 = 742-7) EOS x10^3 (test code = 0.27 10*3/uL 0.06-0.53 711-2) BASO x10^3 (test code 0.09 10*3/uL 0.01-0.09 = 704-7) Lab Interpretation Abnormal (test code = 92292-2) [facility] with Welzwqooszvn5726-75-92 09:37:28 Test Item Value Reference Range Interpretation [...] RDW-SD (test code = 44.4 fL 38.5-51.6 15362-9) RDW-CV (test code = 14.4 % 12.1-15.4 788-0) PLT (test code = See_Comment [Automated 777-3) message] The sy stem which generated this result transmitted reference range : 150 - 328 10*3/ ?L. The reference r adama was not used to interpret this result as normal/abnormal . MPV (test code = 11.8 fL 9.8-13.0 06047-2) NRBC/100 WBC (test See_Comment [Automat ed code = 3521796641) message] The system which generated this result transmitted reference range : 0.0 - 10.0 /100 WBCs. The refer ence range was not u sed to interpret th is result as normal/abnormal . NRBC x10^3 (test code See_Comment [Auto mated = 8677435628) message] The s ystem which generated this result transmitted reference range : 10*3/?L. The reference range was not used to interpret this result as normal/abnormal . GRAN MAT (NEUT) % 74.7 % (test code = 770-8) IMM GRAN % (test code 0.60 % = 7252145694) LYMPH % (test code = 11.4 % 736-9) MONO % (test code = 9.6 % 5905-5) EOS % (test code = 2.8 % 713-8) BASO % (test code = 0.9 % 706-2) GRAN MAT x10^3(ANC) 7.11 10*3/uL 1.99-6.95 H (test code = 2188575238) IMM GRAN x10^3 (test 0.06 10*3/uL 0.00-0.06 code = 6860194453) LYMPH x10^3 (test code 1.09 10*3/uL 1.09-3.23 = 731-0) MONO x10^3 (test code 0.92 10*3/uL 0.36-1.02 = 742-7) EOS x10^3 (test code = 0.27 10*3/uL 0.06-0.53 711-2) BASO x10^3 (test code 0.09 10*3/uL 0.01-0.09 = 704-7) Lab Interpretation Abnormal (test code = 95483-8) [facility] with Qbatchffnjnc5801-60-28 09:37:28 Test Item Value Reference Range Interpretation Comments WBC (test code = See_Comment [Automated 8990-2) message] The sy stem which generated this result transmitted reference range : 4.20 - 10.70 10*3/?L. The reference range was not used to interpret this result as normal/abnormal . RBC (test code = See_Comment L [Automated 919-8) message] The sy stem which generated this [...] RDW-SD (test code = 44.4 fL 38.5-51.6 53302-5) RDW-CV (test code = 14.4 % 12.1-15.4 788-0) PLT (test code = See_Comment [Automated 777-3) message] The sy stem which generated this result transmitted reference range : 150 - 328 10*3/ ?L. The reference r adama was not used to interpret this result as normal/abnormal . MPV (test code = 11.8 fL 9.8-13.0 26832-1) NRBC/100 WBC (test See_Comment [Automat ed code = 1988107500) message] The system which generated this result transmitted reference range : 0.0 - 10.0 /100 WBCs. The refer ence range was not u sed to interpret th is result as normal/abnormal . NRBC x10^3 (test code See_Comment [Auto mated = 1697864080) message] The s ystem which generated this result transmitted reference range : 10*3/?L. The reference range was not used to interpret this result as normal/abnormal . GRAN MAT (NEUT) % 74.7 % (test code = 770-8) IMM GRAN % (test code 0.60 % = 5060208973) LYMPH % (test code = 11.4 % 736-9) MONO % (test code = 9.6 % 5905-5) EOS % (test code = 2.8 % 713-8) BASO % (test code = 0.9 % 706-2) GRAN MAT x10^3(ANC) 7.11 10*3/uL 1.99-6.95 H (test code = 7448826265) IMM GRAN x10^3 (test 0.06 10*3/uL 0.00-0.06 code = 8253493713) LYMPH x10^3 (test code 1.09 10*3/uL 1.09-3.23 = 731-0) MONO x10^3 (test code 0.92 10*3/uL 0.36-1.02 = 742-7) EOS x10^3 (test code = 0.27 10*3/uL 0.06-0.53 711-2) BASO x10^3 (test code 0.09 10*3/uL 0.01-0.09 = 704-7) Lab Interpretation Abnormal (test code = 64332-5) [facility] with Pzuljatjhete7951-08-05 09:37:28 Test Item Value Reference Range Interpretation [...] RDW-SD (test code = 44.4 fL 38.5-51.6 98497-4) RDW-CV (test code = 14.4 % 12.1-15.4 788-0) PLT (test code = See_Comment [Automated 777-3) message] The sy stem which generated this result transmitted reference range : 150 - 328 10*3/ ?L. The reference r adama was not used to interpret this result as normal/abnormal . MPV (test code = 11.8 fL 9.8-13.0 24275-5) NRBC/100 WBC (test See_Comment [Automat ed code = 9748929779) message] The system which generated this result transmitted reference range : 0.0 - 10.0 /100 WBCs. The refer ence range was not u sed to interpret th is result as normal/abnormal . NRBC x10^3 (test code See_Comment [Auto mated = 9222747283) message] The s ystem which generated this result transmitted reference range : 10*3/?L. The reference range was not used to interpret this result as normal/abnormal . GRAN MAT (NEUT) % 74.7 % (test code = 770-8) IMM GRAN % (test code 0.60 % = 7754584150) LYMPH % (test code = 11.4 % 736-9) MONO % (test code = 9.6 % 5905-5) EOS % (test code = 2.8 % 713-8) BASO % (test code = 0.9 % 706-2) GRAN MAT x10^3(ANC) 7.11 10*3/uL 1.99-6.95 H (test code = 4727766723) IMM GRAN x10^3 (test 0.06 10*3/uL 0.00-0.06 code = 1286517826) LYMPH x10^3 (test code 1.09 10*3/uL 1.09-3.23 = 731-0) MONO x10^3 (test code 0.92 10*3/uL 0.36-1.02 = 742-7) EOS x10^3 (test code = 0.27 10*3/uL 0.06-0.53 711-2) BASO x10^3 (test code 0.09 10*3/uL 0.01-0.09 = 704-7) Lab Interpretation Abnormal (test code = 64637-2) [facility] GLUCOSE (AUTOMATED)2022-04-05 03:05:57 Test Item Value Reference Range Interpretation Comments POCT GLU (test code = 1565921746) 167 mg/dL 70-110 H Lab Interpretation (test code = Abnormal 05829-7) [facility] GLUCOSE (AUTOMATED)2022-04-05 03:05:57 Test Item Value Reference Range Interpretation Comments POCT GLU (test code = 4332167524) 167 mg/dL 70-110 H Lab Interpretation (test code = Abnormal 71402-7) [facility] GLUCOSE (AUTOMATED)2022-04-05 03:05:57 Test Item Value Reference Range Interpretation Comments POCT GLU (test code = 7413786263) 167 mg/dL 70-110 H Lab Interpretation (test code = Abnormal 90763-2) [facility] GLUCOSE (AUTOMATED)2022-04-05 03:05:57 Test Item Value Reference Range Interpretation Comments POCT GLU (test code = 2414520603) 167 mg/dL 70-110 H Lab Interpretation (test code = Abnormal 84127-7) [facility] 00:32:31 Test Item Value Reference Range Interpretation Comments HGB A1C (test code = 6.4 % 4-5.7 H 4548-4) MARINO (test code = MARINO) Reference RangesNormal: <5.7%Prediabetes: 5.7 - 6.4%Diabetes: > 6.5% Lab Interpretation (test Abnormal code = 69680-3) [facility]2022-[facility]-05 00:32:31 Test Item Value Reference Range Interpretation Comments HGB A1C (test code = 6.4 % 4.0-5.7 H 4548-4) MARINO (test code = MARINO) Reference RangesNormal: <5.7%Prediabetes: 5.7 - 6.4%Diabetes: > 6.5% Lab Interpretation (test Abnormal code = 27048-5) [facility]2022-04-05 00:32:31 Test Item Value Reference Range Interpretation Comments HGB A1C (test code = 6.4 % 4.0-5.7 H 4548-4) MARINO (test code = MARINO) Reference RangesNormal: <5.7%Prediabetes: 5.7 - 6.4%Diabetes: > 6.5% Lab Interpretation (test Abnormal code = 89288-5) [facility]2022-[facility]-05 00:32:31 Test Item Value Reference Range Interpretation Comments HGB A1C (test code = 6.4 % 4.0-5.7 H 4548-4) MARINO (test code = MARINO) Reference RangesNormal: <5.7%Prediabetes: 5.7 - 6.4%Diabetes: > 6.5% Lab Interpretation (test Abnormal code = 32287-2) [facility] (Total Cholesterol, Triglycerides, HDL) - Vqszvza8628-07-66 00:07:29 Test Item Value Reference Range Interpretation Comments CHOL (test code = 109 mg/dL 120-200 L 3227055142) HDL (test code = 44 mg/dL See_Comment [Automated message] 4983812769) The system [employer] generated this result transmit rudolph reference range : >=40. The refer ence range was not u sed to interpret th is result as normal/abnormal . HDLC RATIO (test code = See_Comment [Au tomated message] 9958755258) The system [employer] generated this result transmit rudolph reference range : <=5.0. The refe rence range was not u sed to interpret th is result as normal/abnormal . TRIG (test code = 94 mg/dL 30-170 8204316912) LDL CHOL (test code = 46 mg/dL See_Comment [Auto mated message] 65188-4) The system [employer] generated this result transmit rudolph reference range : <=160. The refe rence range was not u sed to interpret th is result as normal/abnormal . VLDL (test code = 19 mg/dL 5-60 3549622816) Lab Interpretation (test Abnormal code = 81914-4) [facility] Wvyub3079-45-74 00:07:29 Test Item Value Reference Range Interpretation Comments MAGNESIUM (test code = 2248068876) 2.1 mg/dL 1.7-2.4 Lab Interpretation (test code = Normal 42144-5) [facility] (Total Cholesterol, Triglycerides, HDL) - Yxgeolo2421-00-56 00:07:29 Test Item Value Reference Range Interpretation Comments CHOL (test code = 109 mg/dL 120-200 L 5313472296) HDL (test code = 44 mg/dL See_Comment [Automated message] 0033772747) The system [employer] generated this result transmit rudolph reference range : >=40. The refer ence range was not u sed to interpret th is result as normal/abnormal . HDLC RATIO (test code = See_Comment [Au tomated message] 1317126874) The system [employer] generated this result transmit rudolph reference range : <=5.0. The refe rence range was not u sed to interpret th is result as normal/abnormal . TRIG (test code = 94 mg/dL 30-170 1157077002) LDL CHOL (test code = 46 mg/dL See_Comment [Auto mated message] 58667-0) The system [employer] generated this result transmit rudolph reference range : <=160. The refe rence range was not u sed to interpret th is result as normal/abnormal . VLDL (test code = 19 mg/dL 5-60 1196412820) Lab Interpretation (test Abnormal code = 67644-1) [facility] Kximn9886-06-43 00:07:29 Test Item Value Reference Range Interpretation Comments MAGNESIUM (test code = 3299612132) 2.1 mg/dL 1.7-2.4 Lab Interpretation (test code = Normal 54342-6) [facility] (Total Cholesterol, Triglycerides, HDL) - Utynfvx4597-51-93 00:07:29 Test Item Value Reference Range Interpretation Comments CHOL (test code = 109 mg/dL 120-200 L 0332949485) HDL (test code = 44 mg/dL See_Comment [Automated message] 8290499477) The system [employer] generated this result transmit rudolph reference range : >=40. The refer ence range was not u sed to interpret th is result as normal/abnormal . HDLC RATIO (test code = See_Comment [Au tomated message] 5816986996) The system [employer] generated this result transmit rudolph reference range : <=5.0. The refe rence range was not u sed to interpret th is result as normal/abnormal . TRIG (test code = 94 mg/dL 30-170 9479728412) LDL CHOL (test code = 46 mg/dL See_Comment [Auto mated message] 52164-5) The system [employer] generated this result transmit rudolph reference range : <=160. The refe rence range was not u sed to interpret th is result as normal/abnormal . VLDL (test code = 19 mg/dL 5-60 3009747347) Lab Interpretation (test Abnormal code = 07215-2) [facility] Gugge1165-97-96 00:07:29 Test Item Value Reference Range Interpretation Comments MAGNESIUM (test code = 3591637533) 2.1 mg/dL 1.7-2.4 Lab Interpretation (test code = Normal 86737-5) [facility] (Total Cholesterol, Triglycerides, HDL) - Uajgdvy7242-42-45 00:07:29 Test Item Value Reference Range Interpretation Comments CHOL (test code = 109 mg/dL 120-200 L 8748956844) HDL (test code = 44 mg/dL See_Comment [Automated message] 8156980658) The system [employer] generated this result transmit rudolph reference range : >=40. The refer ence range was not u sed to interpret th is result as normal/abnormal . HDLC RATIO (test code = See_Comment [Au tomated message] 8260800458) The system [employer] generated this result transmit rudolph reference range : <=5.0. The refe rence range was not u sed to interpret th is result as normal/abnormal . TRIG (test code = 94 mg/dL 30-170 9517853089) LDL CHOL (test code = 46 mg/dL See_Comment [Auto mated message] 73581-3) The system [employer] generated this result transmit rudolph reference range : <=160. The refe rence range was not u sed to interpret th is result as normal/abnormal . VLDL (test code = 19 mg/dL 5-60 2987331839) Lab Interpretation (test Abnormal code = 97503-0) [facility] Dxbxz3654-67-26 00:07:29 Test Item Value Reference Range Interpretation Comments MAGNESIUM (test code = 1282904019) 2.1 mg/dL 1.7-2.4 Lab Interpretation (test code = Normal 97985-3) [facility] Gpdlz2284-77-93 00:07:09 Test Item Value Reference Range Interpretation Comments PHOSPHORUS (test code = 0585523553) 5.4 mg/dL 2.5-5 H Lab Interpretation (test code = Abnormal 48513-2) [facility] Yxply3528-70-79 00:07:09 Test Item Value Reference Range Interpretation Comments PHOSPHORUS (test code = 1315839828) 5.4 mg/dL 2.5-5.0 H Lab Interpretation (test code = Abnormal 37265-5) [facility] Qnfla9041-15-08 00:07:09 Test Item Value Reference Range Interpretation Comments PHOSPHORUS (test code = 7939391814) 5.4 mg/dL 2.5-5.0 H Lab Interpretation (test code = Abnormal 63259-9) [facility] Jvkyg9805-05-86 00:07:09 Test Item Value Reference Range Interpretation Comments PHOSPHORUS (test code = 4911173332) 5.4 mg/dL 2.5-5.0 H Lab Interpretation (test code = Abnormal 85355-4) [facility]ED[facility] GLMH9126-91-11 18:10:11 Test Item Value Reference Range Interpretation Comments ESR (test code = See_Comment H [Automated message] 63236-1) The system [employer] generated this result transmitted ref erence range: 0 - 10 m m/HR. The reference r adama was not used to interpret this result as normal/abnor mal. Lab Interpretation (test Abnormal code = 60840-1) [facility] [id number] 18:10:11 Test Item Value Reference Range Interpretation Comments ESR (test code = See_Comment H [Automated message] 39922-3) The system [employer] generated this result transmitted ref erence range: 0 - 10 m m/HR. The reference r adama was not used to interpret this result as normal/abnor mal. Lab Interpretation (test Abnormal code = 30258-5) [facility] RUOJ3805-86-12 18:10:11 Test Item Value Reference Range Interpretation Comments ESR (test code = See_Comment H [Automated message] 92776-2) The system [employer] generated this result transmitted ref erence range: 0 - 10 m m/HR. The reference r adama was not used to interpret this result as normal/abnor mal. Lab Interpretation (test Abnormal code = 43760-8) [facility] CXMY6460-12-08 18:10:11 Test Item Value Reference Range Interpretation Comments ESR (test code = See_Comment H [Automated message] 97033-4) The system [employer] generated this result transmitted ref erence range: 0 - 10 m m/HR. The reference r adama was not used to interpret this result as normal/abnor mal. Lab Interpretation (test Abnormal code = 13293-7) [facility]. METABOLIC PANEL (81133)2022-04-04 17:44:51 Test Item Value Reference Range Interpretation Comments NA (test code = 137 mmol/L 135-145 9413942555) K (test code = 4.6 mmol/L 3.5-5 1786326596) CL (test code = 92 mmol/L 98-108 L 4231712289) CO2 TOTAL (test code = 29 mmol/L 23-31 2970276459) AGAP (test code = 2-16 9577583803) BUN (test code = 37 mg/dL 7-23 H 8271720452) GLUCOSE (test code = 95 mg/dL 70-110 9710435501) CREATININE (test code = 7.67 mg/dL 0.6-1.25 H 0155134793) TOTAL BILI (test code = 0.5 mg/dL 0.1-1.6 5562633596) CALCIUM (test code = 9.2 mg/dL 8.6-10.6 3735098013) T PROTEIN (test code = 7.1 g/dL 6.3-8.2 9463031306) ALBUMIN (test code = 4.0 g/dL 3.5-5 6365577938) ALK PHOS (test code = 67 U/L 34-122 3416859856) ALTv (test code = 15 U/L 5-50 2-6) AST(SGOT) (test code = 21 U/L 13-40 8446588347) eGFR (test code = mL/min/1.73m2 1965592929) MARINO (test code = MARINO) Association of [...] tests). Lab Interpretation Abnormal (test code = 44183-5) [facility] METABOLIC PANEL (09639)2022-04-04 17:44:51 Test Item Value Reference Range Interpretation Comments NA (test code = 137 mmol/L 135-145 2486627723) K (test code = 4.6 mmol/L 3.5-5.0 9180724182) CL (test code = 92 mmol/L 98-108 L 6978263350) CO2 TOTAL (test code = 29 mmol/L 23-31 8794022749) AGAP (test code = 2-16 9271083087) BUN (test code = 37 mg/dL 7-23 H 6664093826) GLUCOSE (test code = 95 mg/dL 70-110 1313823436) CREATININE (test code = 7.67 mg/dL 0.60-1.25 H 5542165232) TOTAL BILI (test code = 0.5 mg/dL 0.1-1.3 4088875337) CALCIUM (test code = 9.2 mg/dL 8.6-10.6 6741142707) T PROTEIN (test code = 7.1 g/dL 6.3-8.2 1714327720) ALBUMIN (test code = 4.0 g/dL 3.5-5.0 2296718350) ALK PHOS (test code = 67 U/L 34-122 5494613686) ALTv (test code = 15 U/L 5-50 2-6) AST(SGOT) (test code = 21 U/L 13-40 0077921202) eGFR (test code = mL/min/1.73m2 2582725582) MARINO (test code = MARINO) Association of [...] tests). Lab Interpretation Abnormal (test code = 08014-5) [facility] METABOLIC PANEL (84047)2022-04-04 17:44:51 Test Item Value Reference Range Interpretation Comments NA (test code = 137 mmol/L 135-145 1201325783) K (test code = 4.6 mmol/L 3.5-5.0 5957909888) CL (test code = 92 mmol/L 98-108 L 9667033048) CO2 TOTAL (test code = 29 mmol/L 23-31 7665595020) AGAP (test code = 2-16 1854287308) BUN (test code = 37 mg/dL 7-23 H 9118664804) GLUCOSE (test code = 95 mg/dL 70-110 8045123215) CREATININE (test code = 7.67 mg/dL 0.60-1.25 H 0903446849) TOTAL BILI (test code = 0.5 mg/dL 0.1-1.5 9878353802) CALCIUM (test code = 9.2 mg/dL 8.6-10.6 4708194046) T PROTEIN (test code = 7.1 g/dL 6.3-8.2 5583910239) ALBUMIN (test code = 4.0 g/dL 3.5-5.0 9458785736) ALK PHOS (test code = 67 U/L 34-122 8321005877) ALTv (test code = 15 U/L 5-50 1742-6) AST(SGOT) (test code = 21 U/L 13-40 5752637375) eGFR (test code = mL/min/1.73m2 0958810652) MARINO (test code = MARINO) Association of [...] tests). Lab Interpretation Abnormal (test code = 89940-5) [facility] METABOLIC PANEL (05380)2022-04-04 17:44:51 Test Item Value Reference Range Interpretation Comments NA (test code = 137 mmol/L 135-145 5955701227) K (test code = 4.6 mmol/L 3.5-5.0 0822676104) CL (test code = 92 mmol/L 98-108 L 7275922381) CO2 TOTAL (test code = 29 mmol/L 23-31 3063494480) AGAP (test code = 2-16 5453283854) BUN (test code = 37 mg/dL 7-23 H 4166875533) GLUCOSE (test code = 95 mg/dL 70-110 6399173876) CREATININE (test code = 7.67 mg/dL 0.60-1.25 H 2137599897) TOTAL BILI (test code = 0.5 mg/dL 0.1-1.1 1797612800) CALCIUM (test code = 9.2 mg/dL 8.6-10.6 6091136893) T PROTEIN (test code = 7.1 g/dL 6.3-8.2 9791755012) ALBUMIN (test code = 4.0 g/dL 3.5-5.0 7132697231) ALK PHOS (test code = 67 U/L 34-122 7932188559) ALTv (test code = 15 U/L 5-50 1742-6) AST(SGOT) (test code = 21 U/L 13-40 0565661784) eGFR (test code = mL/min/1.73m2 0315435208) MARINO (test code = MARINO) Association of [...] tests). Lab Interpretation Abnormal (test code = 90384-4) [facility] WITH [id number] 17:33:28 Test Item Value Reference Range Interpretation Comments WBC (test code = See_Comment H [Automated 4390-2) message] The sy stem which generated this [...] RDW-SD (test code = 45.8 fL 38.5-51.6 57806-2) RDW-CV (test code = 14.6 % 12.1-15.4 788-0) PLT (test code = See_Comment [Automated 777-3) message] The sy stem which generated this result transmitted reference range : 150 - 328 10*3/ ?L. The reference r adama was not used to interpret this result as normal/abnormal . MPV (test code = 12.6 fL 9.8-13 34293-1) NRBC/100 WBC (test See_Comment [Automat ed code = 7937898487) message] The system which generated this result transmitted reference range : 0.0 - 10.0 /100 WBCs. The refer ence range was not u sed to interpret th is result as normal/abnormal . NRBC x10^3 (test code See_Comment [Auto mated = 7865189489) message] The s ystem which generated this result transmitted reference range : 10*3/?L. The reference range was not used to interpret this result as normal/abnormal . GRAN MAT (NEUT) % 78.0 % (test code = 770-8) IMM GRAN % (test code 0.50 % = 6298004462) LYMPH % (test code = 10.0 % 736-9) MONO % (test code = 8.8 % 5905-5) EOS % (test code = 1.9 % 713-8) BASO % (test code = 0.8 % 706-2) GRAN MAT x10^3(ANC) 8.83 10*3/uL 1.99-6.95 H (test code = 1163848512) IMM GRAN x10^3 (test 0.06 10*3/uL 0-0.06 code = 3146647991) LYMPH x10^3 (test code 1.13 10*3/uL 1.09-3.23 = 731-0) MONO x10^3 (test code 0.99 10*3/uL 0.36-1.02 = 742-7) EOS x10^3 (test code = 0.21 10*3/uL 0.06-0.53 711-2) BASO x10^3 (test code 0.09 10*3/uL 0.01-0.09 = 704-7) Lab Interpretation Abnormal (test code = 36056-7) [facility] WITH [id number] 17:33:28 Test Item Value Reference Range Interpretation [...] RDW-SD (test code = 45.8 fL 38.5-51.6 38213-8) RDW-CV (test code = 14.6 % 12.1-15.4 788-0) PLT (test code = See_Comment [Automated 777-3) message] The sy stem which generated this result transmitted reference range : 150 - 328 10*3/ ?L. The reference r adama was not used to interpret this result as normal/abnormal . MPV (test code = 12.6 fL 9.8-13.0 43359-3) NRBC/100 WBC (test See_Comment [Automat ed code = 6103100407) message] The system which generated this result transmitted reference range : 0.0 - 10.0 /100 WBCs. The refer ence range was not u sed to interpret th is result as normal/abnormal . NRBC x10^3 (test code See_Comment [Auto mated = 3465268309) message] The s ystem which generated this result transmitted reference range : 10*3/?L. The reference range was not used to interpret this result as normal/abnormal . GRAN MAT (NEUT) % 78.0 % (test code = 770-8) IMM GRAN % (test code 0.50 % = 7274286368) LYMPH % (test code = 10.0 % 736-9) MONO % (test code = 8.8 % 5905-5) EOS % (test code = 1.9 % 713-8) BASO % (test code = 0.8 % 706-2) GRAN MAT x10^3(ANC) 8.83 10*3/uL 1.99-6.95 H (test code = 3045547897) IMM GRAN x10^3 (test 0.06 10*3/uL 0.00-0.06 code = 3370406889) LYMPH x10^3 (test code 1.13 10*3/uL 1.09-3.23 = 731-0) MONO x10^3 (test code 0.99 10*3/uL 0.36-1.02 = 742-7) EOS x10^3 (test code = 0.21 10*3/uL 0.06-0.53 711-2) BASO x10^3 (test code 0.09 10*3/uL 0.01-0.09 = 704-7) Lab Interpretation Abnormal (test code = 64839-0) [facility] WITH [id number] 17:33:28 Test Item Value Reference Range Interpretation Comments WBC (test code = See_Comment H [Automated 4390-2) message] The sy stem which generated this result transmitted reference range : 4.20 - 10.70 10*3/?L. The reference range was not used to interpret this result as normal/abnormal . RBC (test code = See_Comment L [Automated 209-8) message] The sy stem which generated this [...] RDW-SD (test code = 45.8 fL 38.5-51.6 50289-0) RDW-CV (test code = 14.6 % 12.1-15.4 788-0) PLT (test code = See_Comment [Automated 777-3) message] The sy stem which generated this result transmitted reference range : 150 - 328 10*3/ ?L. The reference r adama was not used to interpret this result as normal/abnormal . MPV (test code = 12.6 fL 9.8-13.0 00586-4) NRBC/100 WBC (test See_Comment [Automat ed code = 0039356450) message] The system which generated this result transmitted reference range : 0.0 - 10.0 /100 WBCs. The refer ence range was not u sed to interpret th is result as normal/abnormal . NRBC x10^3 (test code See_Comment [Auto mated = 7835815035) message] The s ystem which generated this result transmitted reference range : 10*3/?L. The reference range was not used to interpret this result as normal/abnormal . GRAN MAT (NEUT) % 78.0 % (test code = 770-8) IMM GRAN % (test code 0.50 % = 1057370248) LYMPH % (test code = 10.0 % 736-9) MONO % (test code = 8.8 % 5905-5) EOS % (test code = 1.9 % 713-8) BASO % (test code = 0.8 % 706-2) GRAN MAT x10^3(ANC) 8.83 10*3/uL 1.99-6.95 H (test code = 7310772230) IMM GRAN x10^3 (test 0.06 10*3/uL 0.00-0.06 code = 1365682980) LYMPH x10^3 (test code 1.13 10*3/uL 1.09-3.23 = 731-0) MONO x10^3 (test code 0.99 10*3/uL 0.36-1.02 = 742-7) EOS x10^3 (test code = 0.21 10*3/uL 0.06-0.53 711-2) BASO x10^3 (test code 0.09 10*3/uL 0.01-0.09 = 704-7) Lab Interpretation Abnormal (test code = 74479-3) [facility] WITH [id number] 17:33:28 Test Item Value Reference Range Interpretation [...] RDW-SD (test code = 45.8 fL 38.5-51.6 34440-7) RDW-CV (test code = 14.6 % 12.1-15.4 788-0) PLT (test code = See_Comment [Automated 777-3) message] The sy stem which generated this result transmitted reference range : 150 - 328 10*3/ ?L. The reference r adama was not used to interpret this result as normal/abnormal . MPV (test code = 12.6 fL 9.8-13.0 84929-1) NRBC/100 WBC (test See_Comment [Automat ed code = 7286586246) message] The system which generated this result transmitted reference range : 0.0 - 10.0 /100 WBCs. The refer ence range was not u sed to interpret th is result as normal/abnormal . NRBC x10^3 (test code See_Comment [Auto mated = 3864006956) message] The s ystem which generated this result transmitted reference range : 10*3/?L. The reference range was not used to interpret this result as normal/abnormal . GRAN MAT (NEUT) % 78.0 % (test code = 770-8) IMM GRAN % (test code 0.50 % = 8283971754) LYMPH % (test code = 10.0 % 736-9) MONO % (test code = 8.8 % 5905-5) EOS % (test code = 1.9 % 713-8) BASO % (test code = 0.8 % 706-2) GRAN MAT x10^3(ANC) 8.83 10*3/uL 1.99-6.95 H (test code = 0569242214) IMM GRAN x10^3 (test 0.06 10*3/uL 0.00-0.06 code = 8238793059) LYMPH x10^3 (test code 1.13 10*3/uL 1.09-3.23 = 731-0) MONO x10^3 (test code 0.99 10*3/uL 0.36-1.02 = 742-7) EOS x10^3 (test code = 0.21 10*3/uL 0.06-0.53 711-2) BASO x10^3 (test code 0.09 10*3/uL 0.01-0.09 = 704-7) Lab Interpretation Abnormal (test code = 39775-6) [facility]17426[facility]-29 22:45:49 Test Item Value Reference Range Interpretation Comments NA (test code = 138 mmol/L 135-145 7513754499) K (test code = 3.9 mmol/L 3.5-5 0622211729) CL (test code = 94 mmol/L 98-108 L 8438393309) CO2 TOTAL (test code = 34 mmol/L 23-31 H 7238050217) AGAP (test code = 2-16 4167412502) BUN (test code = 18 mg/dL 7-23 7309156710) GLUCOSE (test code = 82 mg/dL 70-110 8219051888) CREATININE (test code = 4.21 mg/dL 0.6-1.25 H 1333804129) TOTAL BILI (test code = 0.6 mg/dL 0.1-1.1 9881856757) CALCIUM (test code = 8.7 mg/dL 8.6-10.6 8426445579) T PROTEIN (test code = 7.6 g/dL 6.3-8.2 2623716747) ALBUMIN (test code = 4.3 g/dL 3.5-5 3813720685) ALK PHOS (test code = 64 U/L 34-122 3361344317) ALTv (test code = 15 U/L 5-50 1742-6) AST(SGOT) (test code = 19 U/L 13-40 5006886436) eGFR (test code = mL/min/1.73m2 8323610211) MARINO (test code = MARINO) Association of [...] tests). Lab Interpretation Abnormal (test code = 11418-1) [facility] WITH [id number] 22:44:26 Test Item Value Reference Range Interpretation Comments WBC (test code = See_Comment [Automated 1095-2) message] The sy stem which generated this result transmitted reference range : 4.20 - 10.70 10*3/?L. The reference range was not used to interpret this result as normal/abnormal . RBC (test code = See_Comment [Automated 693-8) message] The sy stem which generated this [...] RDW-SD (test code = 45.3 fL 38.5-51.6 93421-7) RDW-CV (test code = 14.4 % 12.1-15.4 788-0) PLT (test code = See_Comment [Automated 777-3) message] The sy stem which generated this result transmitted reference range : 150 - 328 10*3/ ?L. The reference r adama was not used to interpret this result as normal/abnormal . MPV (test code = 12.7 fL 9.8-13 02447-1) NRBC/100 WBC (test See_Comment [Automat ed code = 8826147925) message] The system which generated this result transmitted reference range : 0.0 - 10.0 /100 WBCs. The refer ence range was not u sed to interpret th is result as normal/abnormal . NRBC x10^3 (test code See_Comment [Auto mated = 3195372093) message] The s ystem which generated this result transmitted reference range : 10*3/?L. The reference range was not used to interpret this result as normal/abnormal . GRAN MAT (NEUT) % 77.2 % (test code = 770-8) IMM GRAN % (test code 0.20 % = 4010494845) LYMPH % (test code = 10.2 % 736-9) MONO % (test code = 10.8 % 5905-5) EOS % (test code = 1.1 % 713-8) BASO % (test code = 0.5 % 706-2) GRAN MAT x10^3(ANC) 6.20 10*3/uL 1.99-6.95 (test code = 0094753197) IMM GRAN x10^3 (test 0-0.06 code = 9631740368) LYMPH x10^3 (test code 0.82 10*3/uL 1.09-3.23 L = 731-0) MONO x10^3 (test code 0.87 10*3/uL 0.36-1.02 = 742-7) EOS x10^3 (test code = 0.09 10*3/uL 0.06-0.53 711-2) BASO x10^3 (test code 0.04 10*3/uL 0.01-0.09 = 704-7) Lab Interpretation Abnormal (test code = 78721-8) [facility] [id number] 13:28:00 Test Item Value Reference Range Interpretation [...] NOT APPLICABLE FOR DIALYSIS PATIEN TS. ALKALINE [id number] 13:23:00 Test Item Value Reference Range Interpretation Comments ALKALINE PHOSPHATASE (BEAKER) (test 102 U/L 40-150 code = 346) CREATINE KINASE (CK)2017-11-18 13:23:00 Test Item Value Reference Range Interpretation Comments CREATINE KINASE TOTAL (BEAKER) (test 56 U/L 29-200 code = 380) LACTATE DEHYDROGENASE (LDH)2017-11-18 13:23:00 Test Item Value Reference Range Interpretation Comments LACTATE DEHYDROGENASE (BEAKER) (test 235 U/L 125-220 H code = 635) [id number] 13:18:00 Test Item Value Reference Range Interpretation Comments PARTIAL THROMBOPLASTIN TIME 35.3 seconds 22.5-36.0 (BEAKER) (test code = 760) PROTHROMBIN [id number] 13:17:00 Test Item Value Reference Range Interpretation Comments PROTIME (BEAKER) (test code = 13.7 seconds 11.7-14.7 759) INR (BEAKER) (test code = 370) 1.1 <=5.9 RECOMMENDED COUMADIN/WARFARIN INR THERAPY RANGESSTANDARD DOSE: 2.0 - 3.0 Includes: PROPHYLAXIS for venous thrombosis, systemic embolization; TREATMENT for venous thrombosis and/or pulmonary embolus.HIGH RISK: Target INR is 2.5-3.5 for patients with mechanical heart valves.[id number] 13:17:00 Test Item Value Reference Range Interpretation Comments FIBRINOGEN LEVEL (BEAKER) (test 467 mg/dl 225-434 H code = 658) CBC W/PLT COUNT & AUTO [id number] 12:54:00 Test Item Value Reference Range Interpretation [...] PERCENT (BEAKER) (test code = 2801) POCT-GLUCOSE [id number] 12:50:00 Test Item Value Reference Range Interpretation Comments POC-GLUCOSE METER 203 mg/dL 70-110 H TESTED AT [facility] 6720 (BEAKER) (test code = [place] 1538) [address] [id number] 08:18:00 Test Item Value Reference Range Interpretation Comments PHOSPHORUS (BEAKER) (test code = 2.1 mg/dL 2.3-4.7 L 604) BASIC METABOLIC [id number] 08:18:00 Test Item Value Reference Range Interpretation [...] PATIEN TS. CBC W/PLT COUNT & AUTO [id number] 08:06:00 Test Item Value Reference Range Interpretation [...] = 2801) CBC W/PLT COUNT & AUTO [id number] 07:54:00 Test Item Value Reference Range Interpretation [...] (BEAKER) (test code = 2801) BASIC METABOLIC [id number] 06:41:00 Test Item Value Reference Range Interpretation [...] S NOT APPLICABLE FOR DIALYSIS PATIEN TS. [id number] 06:37:00 Test Item Value Reference Range Interpretation Comments MAGNESIUM (BEAKER) (test code = 2.4 mg/dL 1.6-2.6 627) POCT-GLUCOSE [id number] 21:17:00 Test Item Value Reference Range Interpretation Comments POC-GLUCOSE METER 147 mg/dL 70-110 H TESTED AT [place] [address] ([facility]) (test code = [facility] 1538) [address] POCT-GLUCOSE [id number] 16:44:00 Test Item Value Reference Range Interpretation Comments POC-GLUCOSE METER 87 mg/dL 70-110 TESTED AT [place] [address] ([facility]) (test code = [facility] [address] 1538) POCT-GLUCOSE [id number] 12:41:00 Test Item Value Reference Range Interpretation Comments POC-GLUCOSE METER 176 mg/dL 70-110 H TESTED AT [place] [address] ([facility]) (test code = [facility] 1538) [address] POCT-GLUCOSE [id number] 07:36:00 Test Item Value Reference Range Interpretation Comments POC-GLUCOSE METER 140 mg/dL 70-110 H TESTED AT [place] [address] ([facility]) (test code = [facility] 1538) [address] BASIC METABOLIC [id number] 05:04:00 Test Item Value Reference Range Interpretation Comments SODIUM (BEAKER) 140 meq/L 136-145 (test code = 381) POTASSIUM (BEAKER) 3.8 meq/L 3.5-5.1 (test code = 379) CHLORIDE (BEAKER) 105 meq/L 98-107 (test code = 382) CO2 (BEAKER) (test 25 meq/L 22-29 code = 355) BLOOD UREA NITROGEN 33 mg/dL 7-21 H ([facility]) (test code = 354) CREATININE (BEAKER) 4.36 [...] S NOT APPLICABLE FOR DIALYSIS PATIEN TS. [id number] 05:03:00 Test Item Value Reference Range Interpretation Comments MAGNESIUM (BEAKER) (test code = 2.4 mg/dL 1.6-2.6 627) [id number] 22:18:00 Test Item Value Reference Range Interpretation Comments POTASSIUM (BEAKER) (test code = 3.6 meq/L 3.5-5.1 379) POCT-GLUCOSE [id number] 22:07:00 Test Item Value Reference Range Interpretation Comments POC-GLUCOSE METER 104 mg/dL 70-110 TESTED AT [place] [address] ([facility]) (test code = [facility] 1538) [address] POCT-GLUCOSE [id number] 16:59:00 Test Item Value Reference Range Interpretation Comments POC-GLUCOSE METER 130 mg/dL 70-110 H TESTED AT [place] [address] ([facility]) (test code = [facility] 1538) [address] ALKALINE [id number] 14:14:00 Test Item Value Reference Range Interpretation Comments ALKALINE PHOSPHATASE (BEAKER) (test 40 U/L 40-150 code = 346) PROTEIN, [id number] 14:14:00 Test Item Value Reference Range Interpretation Comments TOTAL PROTEIN (BEAKER) (test code = 6.3 gm/dL 6.0-8.3 770) AST (SGOT)2017-10-27 14:14:00 Test Item Value Reference Range Interpretation Comments AST (SGOT) (BEAKER) (test code = 353) 68 U/L 5-34 H ALT (SGPT)2017-10-27 14:14:00 Test Item Value Reference Range Interpretation Comments ALT (SGPT) (BEAKER) (test code = 347) 90 U/L 6-55 H BILIRUBIN, TOTAL AND [id number] 14:14:00 Test Item Value Reference Range Interpretation Comments BILIRUBIN TOTAL (BEAKER) (test code 0.2 mg/dL 0.2-1.2 = 377) BILIRUBIN DIRECT (BEAKER) (test 0.1 mg/dL 0.1-0.5 code = 706) [id number] 14:14:00 Test Item Value Reference Range Interpretation [...] U/L 125-220 H code = 635) PROTHROMBIN [id number] 13:54:00 Test Item Value Reference Range Interpretation Comments PROTIME (BEAKER) (test code = 14.6 seconds 11.7-14.7 759) INR (BEAKER) (test code = 370) 1.1 <=5.9 RECOMMENDED COUMADIN/WARFARIN INR THERAPY RANGESSTANDARD DOSE: 2.0 - 3.0 Includes: PROPHYLAXIS for venous thrombosis, systemic embolization; TREATMENT for venous thrombosis and/or pulmonary embolus.HIGH RISK: Target INR is 2.5-3.5 for patients with mechanical heart valves.[id number] 13:54:00 Test Item Value Reference Range Interpretation Comments PARTIAL THROMBOPLASTIN TIME 33.4 seconds 22.5-36.0 (BEAKER) (test code = 760) POCT-GLUCOSE [id number] 12:17:00 Test Item Value Reference Range Interpretation Comments POC-GLUCOSE METER 211 mg/dL 70-110 H TESTED AT [facility] 6720 ([facility]) (test code = [place] 1538) [address] POCT-GLUCOSE [id number] 08:22:00 Test Item Value Reference Range Interpretation Comments POC-GLUCOSE METER 221 mg/dL 70-110 H TESTED AT [facility] 6720 ([facility]) (test code = [facility] [place] [facility] 1538) [address] BASIC METABOLIC [id number] 07:54:00 Test Item Value Reference Range Interpretation [...] S NOT APPLICABLE FOR DIALYSIS PATIEN TS. [id number] 07:52:00 Test Item Value Reference Range Interpretation Comments MAGNESIUM (BEAKER) (test code = 2.8 mg/dL 1.6-2.6 H 627) CBC W/PLT COUNT & AUTO [id number] 07:11:00 Test Item Value Reference Range Interpretation [...] PERCENT (BEAKER) (test code = 2801) POCT-GLUCOSE [id number] 22:32:00 Test Item Value Reference Range Interpretation Comments POC-GLUCOSE METER 130 mg/dL 70-110 H TESTED AT [place] [address] ([facility]) (test code = [facility] 1538) [address] POCT-GLUCOSE [id number] 17:40:00 Test Item Value Reference Range Interpretation Comments POC-GLUCOSE METER 72 mg/dL 70-110 TESTED AT [place] [address] ([facility]) (test code = [facility] [address] 1538) RAD, CHEST, 1 VIEW, NON [id number] 17:08:00Reason for exam:->sternotomy FINAL REPORT CLINICAL INDICATION: [...] MDReport Verified Date/Time: 10/26/2017 17:08:24 Reading Location: [address] Reading Room POCT- GLUCOSE [id number] 12:37:00 Test Item Value Reference Range Interpretation Comments POC-GLUCOSE METER 215 mg/dL 70-110 H TESTED AT [facility] 67 ([facility]) (test code = [facility] 1538) [address] POCT-GLUCOSE [id number] 07:58:00 Test Item Value Reference Range Interpretation Comments POC-GLUCOSE METER 180 mg/dL 70-110 H TESTED AT [facility] 67 ([facility]) (test code = [facility] 1538) [address] BASIC METABOLIC [id number] 06:13:00 Test Item Value Reference Range Interpretation [...] PATIEN TS. CBC W/PLT COUNT & AUTO [id number] 06:02:00 Test Item Value Reference Range Interpretation [...] PERCENT (BEAKER) (test code = 2801) POCT-GLUCOSE [id number] 20:48:00 Test Item Value Reference Range Interpretation Comments POC-GLUCOSE METER 222 mg/dL 70-110 H TESTED AT [place] [address] ([facility]) (test code = [place] Cantu [facility] 1538) [address] POCT-GLUCOSE [id number] 18:04:00 Test Item Value Reference Range Interpretation Comments POC-GLUCOSE METER 188 mg/dL 70-110 H TESTED AT [place] [address] ([facility]) (test code = [facility] [place] [facility] 1538) [address] POCT-GLUCOSE [id number] 13:33:00 Test Item Value Reference Range Interpretation Comments POC-GLUCOSE METER 196 mg/dL 70-110 H TESTED AT [place] [address] ([facility]) (test code = [facility] 1538) [address] BASIC METABOLIC [id number] 12:01:00 Test Item Value Reference Range Interpretation [...] NOT APPLICABLE FOR DIALYSIS PATIEN TS. POCT-GLUCOSE [id number] 11:59:00 Test Item Value Reference Range Interpretation Comments POC-GLUCOSE METER 194 mg/dL 70-110 H TESTED AT [place] [address] ([facility]) (test code = [place] Cantu [facility] 2904) [address] CBC W/PLT COUNT & AUTO [id number] 11:39:00 Test Item Value Reference Range Interpretation [...] (test code = 416) BASOPHILS ABSOLUTE COUNT ([facility]) 0.03 K/ L 0.01-0.08 (test code = 417) IMMATURE GRANULOCYTES-RELATIVE 0 % 0-1 PERCENT ([facility]) (test code = 2801) RAD, CHEST, 1 VIEW, NON [id number] 09:03:00Reason for exam:->S/p CABGShould this be performed [...] MDReport Verified Date/Time: 10/25/2017 09:03:01 Reading Location: [address] Ortho Consult Reading Room Electronically signed by: BRI LARA M.D. on 018 09:03 AMPOCT-GLUCOSE [id number] 20:54:00 Test Item Value Reference Range Interpretation Comments POC-GLUCOSE METER 183 mg/dL 70-110 H TESTED AT [facility] 6720 ([facility]) (test code = [place] Cantu [facility] 1538) [address] HEPATITIS B SURFACE [id number] 16:24:00 Test Item Value Reference Range Interpretation Comments HEPATITIS B SURFACE ANTIGEN (2) Nonreactive Nonreactive ([facility]) (test code = 2585) For chronic HD patients, draw HBsAg with each admission then every 30 days.RAD, CHEST, 1 VIEW, NON [id number] 13:31:00Reason for exam:->air leak from chest tubes. [...] Coreyeport Verified Date/Time: 10/24/2017 13:31:11 Reading Location: [facility] Radiology Reading Room GLOBIN AND [id number] 09:47:00 Test Item Value Reference Range Interpretation Comments HEMOGLOBIN (BEAKER) (test code = 9.9 GM/DL 13.7-17.5 L 410) HEMATOCRIT (BEAKER) (test code = 31.7 % 40.1-51.0 L 411) POCT-GLUCOSE [id number] 09:38:00 Test Item Value Reference Range Interpretation Comments POC-GLUCOSE METER 200 mg/dL 70-110 H TESTED AT [place] [address] (BEAKER) (test code = [facility] 1538) [address] POCT-GLUCOSE [id number] 04:46:00 Test Item Value Reference Range Interpretation Comments POC-GLUCOSE METER 129 mg/dL 70-110 H TESTED AT [place] [address] (BEAKER) (test code = [facility] 1538) [address] POCT-GLUCOSE [id number] 04:46:00 Test Item Value Reference Range Interpretation Comments POC-GLUCOSE METER 172 mg/dL 70-110 H TESTED AT [place] [address] (BEAKER) (test code = [facility] 1538) [address] BASIC METABOLIC [id number] 04:01:00 Test Item Value Reference Range Interpretation [...] S NOT APPLICABLE FOR DIALYSIS PATIEN TS. [id number] 03:58:00 Test Item Value Reference Range Interpretation Comments PHOSPHORUS (BEAKER) (test code = 5.3 mg/dL 2.3-4.7 H 604) [id number] 03:58:00 Test Item Value Reference Range Interpretation Comments MAGNESIUM (BEAKER) (test code = 3.2 mg/dL 1.6-2.6 H 627) CALCIUM, [id number] 03:56:00 Test Item Value Reference Range Interpretation Comments CALCIUM IONIZED (BEAKER) (test 1.17 mmol/L 1.12-1.27 code = 698) PH, BLOOD (BEAKER) (test code = 7.29 1810) RAD, CHEST, 1 VIEW, NON [id number] 03:56:00while patient is intubated or has chest [...] MDReport Verified Date/Time: 10/24/2017 03:56:43 Reading Location: [address] Reading Room LACTIC ACID, ARTERIAL, WHOLE [id number] 03:54:00 Test Item Value Reference Range Interpretation Comments LACTATE BLOOD ARTERIAL (2) 0.7 mmol/L 0.5-2.2 (BEAKER) (test code = 2874) Effective 10/18/2015: Units/Reference Range ChangeNew: 0.5-2.2 mmol/L Previous: 5- 20 mg/dLOXYGEN SATURATION, [id number] 03:53:00 Test Item Value Reference Range Interpretation Comments O2 SATURATION (MEASURED) (BEAKER) 72.5 % (test code = 1455) CBC W/PLT COUNT & AUTO [id number] 03:44:00 Test Item Value Reference Range Interpretation [...] ABSOLUTE COUNT 0.01 K/ L 0.04-0.54 L (AKER) (test code = 416) BASOPHILS ABSOLUTE COUNT (BEAKER) 0.03 K/ L 0.01-0.08 (test code = 417) IMMATURE GRANULOCYTES-RELATIVE 0 % 0-1 PERCENT ([facility]) (test code = 2801) POCT-GLUCOSE [id number] 22:48:00 Test Item Value Reference Range Interpretation Comments POC-GLUCOSE METER 162 mg/dL 70-110 H TESTED AT [place] [address] ([facility]) (test code = [facility] 1538) [address] POCT-GLUCOSE [id number] 22:48:00 Test Item Value Reference Range Interpretation Comments POC-GLUCOSE METER 163 mg/dL 70-110 H TESTED AT [place] [address] ([facility]) (test code = [facility] 1538) [address] POCT-GLUCOSE [id number] 22:48:00 Test Item Value Reference Range Interpretation Comments POC-GLUCOSE METER 113 mg/dL 70-110 H TESTED AT [place] [address] ([facility]) (test code = [facility] 1538) [address] POCT-GLUCOSE [id number] 22:48:00 Test Item Value Reference Range Interpretation Comments POC-GLUCOSE METER 83 mg/dL 70-110 TESTED AT [place] [address] ([facility]) (test code = [facility] [place] [facility] [address] 1538) POCT-GLUCOSE [id number] 22:48:00 Test Item Value Reference Range Interpretation Comments POC-GLUCOSE METER 114 mg/dL 70-110 H TESTED AT [place] [address] ([facility]) (test code = [facility] [employer] 1538) [address] BLOOD GAS, [id number] 17:05:00 Test Item Value Reference Range Interpretation Comments PH ARTERIAL (BEAKER) (test code = 7.43 7.35-7.45 383) PCO2 ARTERIAL (BEAKER) (test code 32 mmHg 35-45 L = 384) PO2 ARTERIAL (BEAKER) (test code 184 mmHg 80-90 H = 385) O2 SATURATION ARTERIAL (AKER) 99.3 % 96.0-97.0 H (test code = 386) HCO3 ARTERIAL (BEAKER) (test code 21 mmol/L 21-29 = 388) BASE EXCESS ARTERIAL (BEAKER) -3.0 mmol/L -2.0-3.0 L (test code = 387) PATIENT TEMPERATURE (BEAKER) 36.7 C (test code = 1818) FIO2 (BEAKER) (test code = 1819) 40.0 % POCT-GLUCOSE [id number] 15:59:00 Test Item Value Reference Range Interpretation Comments POC-GLUCOSE METER 197 mg/dL 70-110 H TESTED AT [facility] 67 (BEAKER) (test code = [facility] 1538) [address] POCT-GLUCOSE [id number] 15:59:00 Test Item Value Reference Range Interpretation Comments POC-GLUCOSE METER 218 mg/dL 70-110 H TESTED AT [place] [address] ([facility]) (test code = [facility] 1538) [address] BLOOD GAS, [id number] 14:11:00 Test Item Value Reference Range Interpretation [...] (test code = 1819) 40.0 % GLUCOSE-STAT [id number] 14:11:00 Test Item Value Reference Range Interpretation Comments GLUCOSE RANDOM (BEAKER) (test code 235 mg/dL 70-110 H = 652) HEMOGLOBIN [id number] 14:09:00 Test Item Value Reference Range Interpretation Comments HEMOGLOBIN A1C (BEAKER) (test code = 7.0 % 4.3-6.1 H 368) BASIC METABOLIC [id number] 12:49:00 Test Item Value Reference Range Interpretation [...] S NOT APPLICABLE FOR DIALYSIS PATIEN TS. [id number] 12:41:00 Test Item Value Reference Range Interpretation Comments POTASSIUM (BEAKER) (test code = 4.1 meq/L 3.5-5.1 379) [id number] 12:41:00 Test Item Value Reference Range Interpretation Comments MAGNESIUM (BEAKER) (test code = 3.2 mg/dL 1.6-2.6 H 627) [id number] 12:41:00 Test Item Value Reference Range Interpretation Comments PHOSPHORUS (BEAKER) (test code = 4.1 mg/dL 2.3-4.7 604) [id number] 12:41:00 Test Item Value Reference Range Interpretation Comments SODIUM (BEAKER) (test code = 381) 138 meq/L 136-145 [id number] 12:41:00 Test Item Value Reference Range Interpretation Comments GLUCOSE RANDOM (BEAKER) (test code 282 mg/dL 70-105 H = 652) RAD, CHEST, 1 VIEW, NON [id number] 12:40:00Reason for exam:->s/p cardiac surgeryShould this be [...] Nunez Verified Date/Time: 10/23/2017 12:40:37 Reading Location: [facility] Radiology Reading Room LACTIC ACID, ARTERIAL, WHOLE [id number] 12:37:00 Test Item Value Reference Range Interpretation Comments LACTATE BLOOD ARTERIAL (2) 1.3 mmol/L 0.5-2.2 (BEAKER) (test code = 2874) Effective 10/18/2015: Units/Reference Range ChangeNew: 0.5-2.2 mmol/L Previous: 5- 20 mg/dLPROTHROMBIN [id number] 12:36:00 Test Item Value Reference Range Interpretation Comments PROTIME (BEAKER) (test code = 16.1 seconds 11.7-14.7 H 759) INR (BEAKER) (test code = 370) 1.3 <=5.9 RECOMMENDED COUMADIN/WARFARIN INR THERAPY RANGESSTANDARD DOSE: 2.0 - 3.0 Includes: PROPHYLAXIS for venous thrombosis, systemic embolization; TREATMENT for venous thrombosis and/or pulmonary embolus.HIGH RISK: Target INR is 2.5-3.5 for patients with mechanical heart valves.[id number] 12:36:00 Test Item Value Reference Range Interpretation Comments FIBRINOGEN LEVEL (BEAKER) (test 206 mg/dl 225-434 L code = 658) [id number] 12:36:00 Test Item Value Reference Range Interpretation Comments PARTIAL THROMBOPLASTIN TIME 32.0 seconds 22.5-36.0 (BEAKER) (test code = 760) BLOOD GAS, [id number] 12:25:00 Test Item Value Reference Range Interpretation [...] (test code = 1819) 60.0 % GLUCOSE-STAT [id number] 12:25:00 Test Item Value Reference Range Interpretation Comments GLUCOSE RANDOM (BEAKER) (test code 243 mg/dL 70-110 H = 652) HGB/HCT (H&H) - STAT [id number] 12:25:00 Test Item Value Reference Range Interpretation Comments HEMOGLOBIN (BEAKER) (test code = 10.9 g/dL 13.0-16.8 L 410) HEMATOCRIT (BEAKER) (test code = 32.0 % 40.0-50.0 L 411) CALCIUM, [id number] 12:25:00 Test Item Value Reference Range Interpretation Comments CALCIUM IONIZED (BEAKER) (test 1.28 mmol/L 1.12-1.27 H code = 698) PH, BLOOD (BEAKER) (test code = 7.33 1810) OXYGEN SATURATION, [id number] 12:25:00 Test Item Value Reference Range Interpretation Comments O2 SATURATION (MEASURED) (BEAKER) 85.6 % (test code = 1455) From distal port of IJ central venous catheterPOTASSIUM-STAT [id number] 12:24:00 Test Item Value Reference Range Interpretation Comments POTASSIUM (BEAKER) (test code = 3.9 meq/L 3.6-5.5 379) CBC W/PLT COUNT & AUTO [id number] 12:24:00 Test Item Value Reference Range Interpretation [...] 0-1 PERCENT (BEAKER) (test code = 2801) [id number] 11:30:00 Test Item Value Reference Range Interpretation Comments ACTIVATED CLOTTING TIME 114 sec TEST ED AT [facility] 6720 (BEAKER) (test code = [place] [address]) [address] [id number] 11:30:00 Test Item Value Reference Range Interpretation Comments ACTIVATED CLOTTING TIME 472 sec TEST ED AT [place] [address] ([facility]) (test code = [place] [address]) [address] [id number] 11:30:00 Test Item Value Reference Range Interpretation Comments ACTIVATED CLOTTING TIME 428 sec TEST ED AT [place] [address] ([facility]) (test code = [place] [address]) [address] [id number] 11:30:00 Test Item Value Reference Range Interpretation Comments ACTIVATED CLOTTING TIME 411 sec TEST ED AT [place] [address] ([facility]) (test code = [place] [address]) [address] [id number] 11:30:00 Test Item Value Reference Range Interpretation Comments ACTIVATED CLOTTING TIME 153 sec TEST ED AT [place] [address] ([facility]) (test code = [place] [address]) [address] THROMBOELASTOGRAPH (TEG)[id number] 11:07:00 Test Item Value Reference Range Interpretation Comments TEG ACTIVATED CLOTTING TIME 7.2 minutes 4.0-7.0 H (BEAKER) (test code = 1407) TEG FIBRINOGEN ACTIVITY (BEAKER) 64.0 degrees 61.0-73.0 (test code = 1408) TEG PLT. AGGREGATION (BEAKER) 39.7 MM 55.0-65.0 L (test code = 1409) TGH ACTIVATED CLOTTING TIME 7.5 minutes 4.0-7.0 H (AKER) (test code = 1411) TGH FIBRINOGEN ACTIVITY (BEAKER) 66.0 degrees 61.0-73.0 (test code = 1412) TGH PLT. AGGREGATION (BEAKER) 58.6 MM 55.0-65.0 (test code = 1413) [id number] 10:42:00 Test Item Value Reference Range Interpretation Comments FIBRINOGEN LEVEL (BEAKER) (test 181 mg/dl 225-434 L code = 658) [id number] 10:37:00 Test Item Value Reference Range Interpretation Comments PARTIAL THROMBOPLASTIN TIME 37.9 seconds 22.5-36.0 H (BEAKER) (test code = 760) PROTHROMBIN [id number] 10:36:00 Test Item Value Reference Range Interpretation Comments PROTIME (BEAKER) (test code = 18.7 seconds 11.7-14.7 H 759) INR (BEAKER) (test code = 370) 1.6 <=5.9 RECOMMENDED COUMADIN/WARFARIN INR THERAPY RANGESSTANDARD DOSE: 2.0 - 3.0 Includes: PROPHYLAXIS for venous thrombosis, systemic embolization; TREATMENT for venous thrombosis and/or pulmonary embolus.HIGH RISK: Target INR is 2.5-3.5 for patients with mechanical heart valves.PLATELET [id number] 10:30:00 Test Item Value Reference Range Interpretation Comments PLATELET COUNT (BEAKER) (test code 80 K/CU MM 150-450 L = 756) BLOOD GAS, [id number] 10:21:00 Test Item Value Reference Range Interpretation [...] code = 1819) 100.0 % SODIUM NA-STAT [id number] 10:21:00 Test Item Value Reference Range Interpretation Comments SODIUM (BEAKER) (test code = 381) 133 meq/L 135-148 L POTASSIUM-STAT [id number] 10:21:00 Test Item Value Reference Range Interpretation Comments POTASSIUM (BEAKER) (test code = 5.6 meq/L 3.6-5.5 H 379) GLUCOSE-STAT [id number] 10:21:00 Test Item Value Reference Range Interpretation Comments GLUCOSE RANDOM (BEAKER) (test code 127 mg/dL 70-110 H = 652) HGB/HCT (H&H) - STAT [id number] 10:21:00 Test Item Value Reference Range Interpretation Comments HEMOGLOBIN (BEAKER) (test code = 8.7 g/dL 13.0-16.8 L 410) HEMATOCRIT (BEAKER) (test code = 26.0 % 40.0-50.0 L 411) CALCIUM, [id number] 10:21:00 Test Item Value Reference Range Interpretation Comments CALCIUM IONIZED (BEAKER) (test 1.05 mmol/L 1.12-1.27 L code = 698) PH, BLOOD (BEAKER) (test code = 7.34 1810) POTASSIUM-STAT [id number] 09:58:00 Test Item Value Reference Range Interpretation Comments POTASSIUM (BEAKER) 6.0 meq/L 3.6-5.5 HH SPECIMEN NOT HEMOLYZED (test code = 379) CALCIUM, [id number] 09:57:00 Test Item Value Reference Range Interpretation Comments CALCIUM IONIZED (BEAKER) (test 0.79 mmol/L 1.12-1.27 LL code = 698) PH, BLOOD (BEAKER) (test code = 7.30 1810) BLOOD GAS, [id number] 09:53:00 Test Item Value Reference Range Interpretation [...] code = 1819) 70.0 % SODIUM NA-STAT [id number] 09:53:00 Test Item Value Reference Range Interpretation Comments SODIUM (BEAKER) (test code = 381) 132 meq/L 135-148 L GLUCOSE-STAT [id number] 09:53:00 Test Item Value Reference Range Interpretation Comments GLUCOSE RANDOM (BEAKER) (test code 121 mg/dL 70-110 H = 652) HGB/HCT (H&H) - STAT [id number] 09:53:00 Test Item Value Reference Range Interpretation Comments HEMOGLOBIN (BEAKER) (test code = 7.1 g/dL 13.0-16.8 L 410) HEMATOCRIT (BEAKER) (test code = 21.0 % 40.0-50.0 L 411) SODIUM NA-STAT [id number] 09:39:00 Test Item Value Reference Range Interpretation Comments SODIUM (BEAKER) (test code = 381) 136 meq/L 135-148 POTASSIUM-STAT [id number] 09:39:00 Test Item Value Reference Range Interpretation Comments POTASSIUM (BEAKER) (test code = 5.5 meq/L 3.6-5.5 379) BLOOD GAS, [id number] 09:39:00 Test Item Value Reference Range Interpretation [...] (test code = 1819) 60.0 % GLUCOSE-STAT [id number] 09:39:00 Test Item Value Reference Range Interpretation Comments GLUCOSE RANDOM (BEAKER) (test code 122 mg/dL 70-110 H = 652) HGB/HCT (H&H) - STAT [id number] 09:39:00 Test Item Value Reference Range Interpretation Comments HEMOGLOBIN (BEAKER) (test code = 6.4 g/dL 13.0-16.8 L 410) HEMATOCRIT (BEAKER) (test code = 19.0 % 40.0-50.0 L 411) SODIUM NA-STAT [id number] 07:56:00 Test Item Value Reference Range Interpretation Comments SODIUM (BEAKER) (test code = 381) 140 meq/L 135-148 POTASSIUM-STAT [id number] 07:56:00 Test Item Value Reference Range Interpretation Comments POTASSIUM (BEAKER) (test code = 4.2 meq/L 3.6-5.5 379) BLOOD GAS, [id number] 07:56:00 Test Item Value Reference Range Interpretation [...] (test code = 1819) 100.0 % GLUCOSE-STAT [id number] 07:56:00 Test Item Value Reference Range Interpretation Comments GLUCOSE RANDOM (BEAKER) (test code 137 mg/dL 70-110 H = 652) HGB/HCT (H&H) - STAT [id number] 07:56:00 Test Item Value Reference Range Interpretation Comments HEMOGLOBIN (BEAKER) (test code = 10.5 g/dL 13.0-16.8 L 410) HEMATOCRIT (BEAKER) (test code = 31.0 % 40.0-50.0 L 411) GLUCOSE-STAT [id number] 06:33:00 Test Item Value Reference Range Interpretation Comments GLUCOSE RANDOM (BEAKER) (test code 122 mg/dL 70-110 H = 652) HGB/HCT (H&H) - STAT [id number] 06:33:00 Test Item Value Reference Range Interpretation Comments HEMOGLOBIN (BEAKER) (test code = 11.4 g/dL 13.0-16.8 L 410) HEMATOCRIT (BEAKER) (test code = 34.0 % 40.0-50.0 L 411) POTASSIUM-STAT [id number] 06:32:00 Test Item Value Reference Range Interpretation Comments POTASSIUM (BEAKER) (test code = 4.2 meq/L 3.6-5.5 379) RAD, CHEST, 2 [id number] 11:29:00Reason for Exam:->Pre-OpFINAL REPORT Chest 2 views 10/21/2017 11:28 AM CLINICAL HISTORY: Pre-Op, chest pain COMPARISON: 08/07/2017 FINDINGS: The lungs are clear. Cardiomediastinal contours are within normal limits. The central pulmonary vasculature is not engorged. A right hemodialysis catheter is present.The visualized skeleton is intact. IMPRESSION: No acute radiographic abnormalities. Signed: Vira Nunez Verified Date/Time: 10/21/2017 11:29:02 Reading Location: [facility] Radiology Reading Room COMPREHENSIVE METABOLIC [id number] 11:23:00 Test Item Value Reference Range Interpretation [...] (test 108 U/L 29-200 code = 380) [id number] 11:09:00 Test Item Value Reference Range Interpretation Comments FIBRINOGEN LEVEL (BEAKER) (test 337 mg/dl 225-434 code = 658) [id number] 11:09:00 Test Item Value Reference Range Interpretation [...] mechanical heart valves.CBC W/PLT COUNT & AUTO [id number] 10:47:00 Test Item Value Reference Range Interpretation [...] (BEAKER) (test code = 2801) BASIC METABOLIC [id number] 12:45:00 Test Item Value Reference Range Interpretation [...] S NOT APPLICABLE FOR DIALYSIS PATIEN TS. [id number] 12:24:00 Test Item Value Reference Range Interpretation [...] mechanical heart valves.CBC W/PLT COUNT & AUTO [id number] 12:06:00 Test Item Value Reference Range Interpretation [...] PERCENT (BEAKER) (test code = 2801) HEMOGLOBIN [id number] 14:41:00 Test Item Value Reference Range Interpretation Comments HEMOGLOBIN A1C (BEAKER) (test code = 7.0 % 4.3-6.1 H 368) HIV-1 ANTIGEN WITH HIV-1/2 [id number] 10:23:00 Test Item Value Reference Range Interpretation Comments HIV-1 ANTIGEN WITH HIV 1\\T\\2 Nonreactive Nonreactive ANTIBODY (2) (BEAKER) (test code = 2586) FL, CYSTOGRAM, CINE OR VIDEO, [id number] 10:05:00Reason for Exam:- >esrd; eval for renal [...] dose (Ka,r): 33.3 mGy Signed: Onel Duarte Verified Date/Time: 08/07/2017 10:05:30 Reading Location: [address] Radiology Reading Room U/S, ABDOMINAL, COMPLETE [...] failure. Otherwise unremarkable study. Signed: Onel Duarte Verified Date/Time: 08/07/2017 09:58:47 Reading Location: [address] Radiology Reading Room [id number] 09:20:00 Test Item Value Reference Range Interpretation Comments PROSTATE SPECIFIC ANTIGEN (BEAKER) 6.7 ng/mL 0.0-4.0 H (test code = 844) RAD, CHEST, 2 [id number] 09:11:00Reason for Exam:->esrd; eval for renal txpFINAL REPORT CHEST PA AND LATERAL History provided: Evaluation for renal transplantation Comparison studies: None Heart size normal. Lungs are mildly hyperexpanded but clear, and vascularity normal. Numerous right healed rib fractures. IMPRESSION: Clear chest. Signed: Panda Duarte Verified Date/Time: 08/07/2017 09:11:05 Reading Location: [address] Radiology Reading Room LIPID [id number] 08:38:00 Test Item Value Reference Range Interpretation Comments TRIGLYCERIDES (BEAKER) (test code = 179 mg/dL 540) CHOLESTEROL (BEAKER) (test code = 225 mg/dL 631) HDL CHOLESTEROL (BEAKER) (test code 51 mg/dL = 976) LDL CHOLESTEROL CALCULATED (BEAKER) 138 mg/dL (test code = 633) Triglyceride [...] skin code = 1095) markos CYTOMEGALOVIRUS ANTIBODY, [id number] 07:58:00 Test Item Value Reference Range Interpretation Comments CYTOMEGALOVIRUS IGG ANTIBODY Positive (BEAKER) (test code = 790) CYTOMEGALOVIRUS ANTIBODY, [id number] 07:58:00 Test Item Value Reference Range Interpretation Comments CYTOMEGALOVIRUS IGM ANTIBODY Positive (BEAKER) (test code = 816) EBV-VCA ANTIBODY, [id number] 07:58:00 Test Item Value Reference Range Interpretation Comments DONTAE-ESPINOSA VCA IGG (BEAKER) (test Positive code = 983) EBV-VCA ANTIBODY, [id number] 07:58:00 Test Item Value Reference Range Interpretation Comments DONTAE-ESPINOSA VCA IGM (BEAKER) (test Negative code = 984) VARICELLA ZOSTER ANTIBODY, [id number] 07:32:00 Test Item Value Reference Range Interpretation Comments VARICELLA ZOSTER IGG (AL) (BEAKER) 3.5 Al (test code = 3197) VARICELLA ZOSTER RESULT INTERPRETATIONS: <=0.8 Al Nonreactive: Presumed non- immune to VZV 0.9-1.0Al Equivocal >=1.1 Al Reactive: Presumed immune to VZV [id number] 05:27:00 Test Item Value Reference Range Interpretation Comments RPR SCREEN (BEAKER) (test code = Nonreactive Nonreactive 420) HEMOGLOBIN [id number] 14:09:00 Test Item Value Reference Range Interpretation Comments HEMOGLOBIN A1C (BEAKER) (test code = 7.0 % 4.3-6.1 H 368) COMPREHENSIVE METABOLIC [id number] 11:41:00 Test Item Value Reference Range Interpretation [...] NOT APPLICABLE FOR DIALYSIS PATIEN TS. URIC [id number] 11:32:00 Test Item Value Reference Range Interpretation Comments URIC ACID (BEAKER) (test code = 3.5 mg/dL 2.6-7.2 773) [id number] 11:32:00 Test Item Value Reference Range Interpretation Comments PHOSPHORUS (BEAKER) (test code = 4.0 mg/dL 2.3-4.7 604) GAMMA GLUTAMYL TRANSFERASE (GGT)2017-05-13 11:32:00 Test Item Value Reference Range Interpretation Comments GAMMA GLUTAMYL TRANSFERASE (BEAKER) 27 U/L 9-64 (test code = 364) LACTATE DEHYDROGENASE (LDH)2017-05-13 11:32:00 Test Item Value Reference Range Interpretation Comments LACTATE DEHYDROGENASE (BEAKER) (test 229 U/L 125-220 H code = 635) [id number] 10:15:00 Test Item Value Reference Range Interpretation Comments PROSTATE SPECIFIC ANTIGEN (BEAKER) 5.7 ng/mL 0.0-4.0 H (test code = 844) HEPATITIS B SURFACE [id number] 10:15:00 Test Item Value Reference Range Interpretation Comments HEPATITIS B SURFACE ANTIGEN (2) Nonreactive Nonreactive (BEAKER) (test code = 2585) HEPATITIS B SURFACE [id number] 10:15:00 Test Item Value Reference Range Interpretation Comments HEPATITIS B SURFACE ANTIBODY 195.7 mIU/mL <8.0 H (BEAKER) (test code = 647) HEPATITIS B CORE ANTIBODY, [id number] 10:15:00 Test Item Value Reference Range Interpretation Comments HEPATITIS B CORE IGM ANTIBODY Nonreactive Nonreactive (BEAKER) (test code = 645) HEPATITIS C [id number] 10:15:00 Test Item Value Reference Range Interpretation Comments HEPATITIS C ANTIBODY (BEAKER) Nonreactive Nonreactive (test code = 367) URINALYSIS W/ [id number] 10:12:00 Test Item Value Reference Range Interpretation [...] 514) SOURCE(BEAKER) (test code = 2795) PTH, [id number] 09:29:00 Test Item Value Reference Range Interpretation Comments PARATHYROID HORMONE INTACT 189.9 pg/mL 8.5-72.5 H (BEAKER) (test code = 577) [id number] 09:09:00 Test Item Value Reference Range Interpretation [...] mechanical heart valves.CBC W/PLT COUNT & AUTO [id number] 08:58:00 Test Item Value Reference Range Interpretation [...]
--- NOTE | 2022-06-28 11:34 | EDPHYS ---
Physician Documentation [facility] Name: Russ Corona Age: 71 yrs Sex: Male : 1950 Arrival Date: 06/28/2022 Time: 10:26 Bed DIS3 Private MD: ED Physician Ubaldo Pisano HPI: 06/28 11:46 This 71 yrs old Black Male presents to ER via EMS with complaints of Leg Pain. snw 11:46 The patient presents with pain, that is acute. The complaints affect the right snw quadriceps. 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 Historical: - Allergies: 10:27 No Known Allergies; iw - Home Meds: 10:27 Aspirin EC Oral [Active]; lisinopril Oral [Active]; metoprolol tartrate 100 mg Oral iw tr24 1 tab once daily [Active]; Nitroglycerin SL [Active]; rosuvastatin Oral [Active]; terazosin Oral [Active]; - PMHx: 10:27 Diabetes - NIDDM; Dialysis; M,W,F; Enlarged Heart; High Cholesterol; Hypertension; iw Angina pectoris; Anemia; CAD; Cerebrovascular accident; - PSHx: 10:27 CABG; right AKA; iw - Immunization history:: Client reports receiving the 2nd dose of the Covid vaccine. - Social history:: Smoking status: Patient denies any tobacco usage or history of. ROS: 11:39 Constitutional: Negative for fever, chills, and weight loss, Eyes: Negative for injury, snw pain, redness, and discharge, ENT: Negative for injury, pain, and discharge, Neck: Negative for injury, pain, and swelling, Cardiovascular: Negative for chest pain, palpitations, and edema, Respiratory: Negative for shortness of breath, cough, wheezing, and pleuritic chest pain, Abdomen/GI: Negative for abdominal pain, nausea, vomiting, diarrhea, and constipation, Back: Negative for injury and pain, : Negative for injury, bleeding, discharge, and swelling, Skin: Negative for injury, rash, and discoloration, Neuro: Negative for headache, weakness, numbness, tingling, and seizure. 11:39 MS/extremity: Positive for injury or acute deformity, contusion, of the right stump. Exam: 11:08 Constitutional: This is a well developed, well nourished patient who is awake, alert, snw and in no acute distress. Head/Face: Normocephalic, atraumatic. Eyes: Pupils equal round and reactive to light, extra-ocular motions intact. Lids and lashes normal. Conjunctiva and sclera are non-icteric and not injected. Cornea within normal limits. Periorbital areas with no swelling, redness, or edema. ENT: Nares patent. No nasal discharge, no septal abnormalities noted. Tympanic membranes are normal and external auditory canals are clear. Oropharynx with no redness, swelling, or masses, exudates, or evidence of obstruction, uvula midline. Mucous membranes moist. Neck: Trachea midline, no thyromegaly or masses palpated, and no cervical lymphadenopathy. Supple, full range of motion without nuchal rigidity, or vertebral point tenderness. No Meningismus. Chest/axilla: Normal chest wall appearance and motion. Nontender with no deformity. No lesions are appreciated. 11:08 Respiratory: Lungs have equal breath sounds bilaterally, clear to auscultation and percussion. No rales, rhonchi or wheezes noted. No increased work of breathing, no retractions or nasal flaring. Abdomen/GI: Soft, non-tender, with normal bowel sounds. No distension or tympany. No guarding or rebound. No evidence of tenderness throughout. Back: No spinal tenderness. No costovertebral tenderness. Full range of motion. Skin: Warm, dry with normal turgor. Normal color with no rashes, no lesions, and no evidence of cellulitis. Neuro: Awake and alert, GCS 15, oriented to person, place, time, and situation. Cranial nerves II-XII grossly intact. Motor strength 5/5 in all extremities. Sensory grossly intact. Cerebellar exam normal. Normal gait. 11:08 Cardiovascular: Rhythm: regular, Pulses: no pulse deficits are appreciated, Heart sounds: murmur, systolic. 11:08 Musculoskeletal/extremity: Extremities: grossly normal except: noted in the right quadriceps: tenderness, to femur of AKA s/p blunt trauma, Circulation is intact in all extremities. Sensation intact. shahbaz across AKA (3wks ago) intact, no erythema, no dehiscence. Vital Signs: 10:28 BP 144 / 70; Pulse 62; Resp 17; Temp 98.4; Pulse Ox 100% ; Weight 74.84 kg; Height 5 jl7 ft. 8 in. (172.72 cm); Pain 8/10; 10:36 BP 134 / 64; Pulse 62; Resp 15; Pulse Ox 100% ; hb 11:07 BP 148 / 72; Pulse 63; Resp 16; Pulse Ox 100% on R/A; hb 10:28 Body Mass Index 25.09 (74.84 kg, 172.72 cm) jl7 MDM: 10:27 Patient medically screened. akhil 11:34 Differential diagnosis: open fracture, closed fracture, contusion. Data reviewed: vital snw signs, nurses notes. I considered the following discharge prescriptions or medication management in the emergency department Medications were administered in the Emergency Department. See MAR. Independent interpretation of the following test(s) in the Emergency Department X-Ray: My interpretation is femur s/p fall and AKA - neg for acute bony findings, + calcified vessels. Special discussion: Based on the history and exam findings, there is no indication for further emergent testing or inpatient evaluation. 11:38 Counseling: I had a detailed discussion with the patient and/or guardian regarding: the snw historical points, exam findings, and any diagnostic results supporting the discharge/admit diagnosis, the presence of at least one elevated blood pressure reading (>120/80) during this emergency department visit, radiology results, the need for outpatient follow up, for definitive care, to return to the emergency department if symptoms worsen or persist or if there are any questions or concerns that arise at home. 11:38 Care significantly affected by the following chronic conditions: Diabetes, snw Hypertension, Congestive Heart Failure, Chronic Kidney Disease. Care significantly affected by the following Social Determinants of Health: should have gone to dialysis today, encouraged to do so upon dc. 06/28 10:42 Order name: Femur Right XRAY; Complete Time: 11:38 snw Administered Medications: 10:48 Drug: HYDROcodone-acetaminophen 5 mg-325 mg 1 tabs Route: PO; hb Disposition Summary: 06/28/22 11:34 Discharge Ordered Location: Home snw Condition: Stable snw Diagnosis - Fall on same level, unspecified snw Followup: snw - With: Emergency Department - When: As needed - Reason: Worsening of condition Followup: snw - With: Private Physician - When: 5 - 6 days - Reason: Recheck today's complaints, Continuance of care, Re-evaluation by your physician Discharge Instructions: - Discharge Summary Sheet snw - Contusion snw - RICE Therapy for Routine Care of Injuries snw - Heat Therapy snw Forms: - Medication Reconciliation Form snw - Thank You Letter snw - Antibiotic Education snw - Prescription Opioid Use snw Signatures: Dispatcher [employer] EDMS Ubaldo Pisano MD MD cha Waters, Shelly, GRE TUTOR-C GRE TUTOR-Csnw Alexandra Adkins, RN RN Betzaida Portillo, RHINA RN Dante Ford RN RN jl7 Corrections: (The following items were deleted from the chart) 11:49 11:08 Musculoskeletal/extremity: Extremities: grossly normal except: noted in the right snw quadriceps: contusion, tenderness, to femur of BKA s/p blunt trauma, Circulation is intact in all extremities. Sensation intact. shahbaz across BKA (3wks ago) intact, no erythema, no dehiscense. snw
--- NOTE | 2022-06-28 11:34 | ER ---
Nurse's Notes [facility] Name: Russ Corona Age: 71 yrs Sex: Male : 1950 Arrival Date: 06/28/2022 Time: 10:26 Bed DIS3 Private MD: Diagnosis: Fall on same level, unspecified Presentation: 06/28 10:28 Chief complaint: EMS states: Toned out to dialysis for Right above the knee amputation jl7 pain, surgery was 2 weeks ago, pt had a mechanical fall this morning and reports pain to surgical site. Dialysis pt M-W-F, last dialysis Friday. Coronavirus screen: Vaccine status: Patient reports receiving the 2nd dose of the covid vaccine. At this time, the client does not indicate any symptoms associated with coronavirus-19. Ebola Screen: No symptoms or risks identified at this time. Initial Sepsis Screen: Does the patient meet any 2 criteria? No. Patient's initial sepsis screen is negative. Does the patient have a suspected source of infection? No. Patient's initial sepsis screen is negative. Risk Assessment: Do you want to hurt yourself or someone else? Patient reports no desire to harm self or others. Onset of symptoms was June 28, 2022. 10:28 Method Of Arrival: EMS: [facility] jl7 10:28 Acuity: ELLI 3 jl7 Triage Assessment: 10:28 General: Appears in no apparent distress. uncomfortable, Behavior is calm, cooperative, jl7 appropriate for age. Pain: Complains of pain in right quadriceps Pain currently is 8 out of 10 on a pain scale. Neuro: Level of Consciousness is awake, alert, obeys commands, Oriented to person, place, time, situation. Cardiovascular: Patient's skin is warm and dry. Respiratory: Airway is patent Respiratory effort is even, unlabored, Respiratory pattern is regular, symmetrical. Derm: Skin is pink, warm \T\ dry. Historical: - Allergies: 10:27 No Known Allergies; iw - Home Meds: 10:27 Aspirin EC Oral [Active]; lisinopril Oral [Active]; metoprolol tartrate 100 mg Oral iw tr24 1 tab once daily [Active]; Nitroglycerin SL [Active]; rosuvastatin Oral [Active]; terazosin Oral [Active]; - PMHx: 10:27 Diabetes - NIDDM; Dialysis; M,W,F; Enlarged Heart; High Cholesterol; Hypertension; iw Angina pectoris; Anemia; CAD; Cerebrovascular accident; - PSHx: 10:27 CABG; right AKA; iw - Immunization history:: Client reports receiving the 2nd dose of the Covid vaccine. - Social history:: Smoking status: Patient denies any tobacco usage or history of. Screenin:45 [facility] ED Fall Risk Assessment (Adult) History of falling in the last 3 months, iw including since admission Yes- single mechanical fall (1 pt). Abuse screen: Denies threats or abuse. Denies injuries from another. Nutritional screening: No deficits noted. Tuberculosis screening: No symptoms or risk factors identified. Assessment: 10:44 General: Appears in no apparent distress. Behavior is calm, cooperative. Pain: iw Complains of pain in right quadriceps. Neuro: Level of Consciousness is awake, alert, obeys commands, Oriented to person, place. Cardiovascular: Patient's skin is warm and dry. Respiratory: Respiratory effort is even, Respiratory pattern is regular. GI: Abdomen is flat, non-distended. Derm: Skin is healthy with good turgor. Vital Signs: 10:28 BP 144 / 70; Pulse 62; Resp 17; Temp 98.4; Pulse Ox 100% ; Weight 74.84 kg; Height 5 jl7 ft. 8 in. (172.72 cm); Pain 8/10; 10:36 BP 134 / 64; Pulse 62; Resp 15; Pulse Ox 100% ; hb 11:07 BP 148 / 72; Pulse 63; Resp 16; Pulse Ox 100% on R/A; hb 10:28 Body Mass Index 25.09 (74.84 kg, 172.72 cm) jl7 ED Course: 10:26 Patient arrived in ED. iw 10:27 Patricia Lyn FNP-C is PHCP. snw 10:27 Ubaldo Pisano MD is Attending Physician. snw 10:28 Arm band placed on right wrist. jl7 10:33 Triage completed. jl7 10:36 Alexandra Adkins, RN is Primary Nurse. iw 10:45 No provider procedures requiring assistance completed. Patient did not have IV access iw during this emergency room visit. 11:33 Femur Right XRAY In Process Unspecified. EDMS Administered Medications: 10:48 Drug: HYDROcodone-acetaminophen 5 mg-325 mg 1 tabs Route: PO; hb Outcome: 11:34 Discharge ordered by . robin 13:24 Patient left the ED. iw Signatures: Dispatcher [employer] EDPatricia Li FNP-C FNP-Alexandra Fair, RN RHINA Betzaida Portillo RN Dante Her RN RN jl7
--- NOTE | 2022-06-28 11:36 | RAD REPORT ---
EXAM DESCRIPTION: RAD - Femur Right - 06/28/2022 11:31 am CLINICAL HISTORY: PAIN COMPARISON: No comparisons FINDINGS: Above the knee amputation noted. Atherosclerosis. Moderate osteoarthritis right hip. Skin shahbaz are noted. No fracture seen.
[2022-06-28 13:29] VITALS: TEMP 98.4; O2SAT 100
[2022-06-28 13:31] VITALS: BP 148/72
== END 2022-06-28 13:24 | disposition home or self-care (01) ==
LOC: ER 10:24
DX: M79.651 Pain in right thigh (principal); W18.30XA Fall on same level, unspecified, initial encounter; Z89.611 Acquired absence of right leg above knee; I10 Essential (primary) hypertension; E11.9 Type 2 diabetes mellitus without complications; Z79.82 Long term (current) use of aspirin; Z99.2 Dependence on renal dialysis; Z95.1 Presence of aortocoronary bypass graft; Z86.73 Personal history of transient ischemic attack (TIA), and cerebral infarction without residual deficits
CPT/HCPCS: 99283

== ENCOUNTER 2024-05-15 11:33 | Emergency (ER) | payer OTHER ==
[2024-05-15 13:01] LABS: Specific Gravity 1.006 (1.005-1.030); Sqamous Epithelial <5 /HPF (None Seen); Urine Bacteria None Seen /HPF (<20); Urine Bilirubin NEGATIVE (Negative); Urine Blood Trace (Negative); Urine Clarity Clear (Clear); Urine Color Colorless (Yellow); Urine Culture Reflex Order NOT NEEDED; Urine Glucose NEGATIVE (Negative); Urine Ketones NEGATIVE (Negative); Urine Microscopic Reflex YN ORDER UMIC; Urine Nitrite NEGATIVE (Negative); Urine Protein 1+ (Negative); Urine RBC <5 /HPF (None Seen); Urine Urobilinogen Normal (Normal); Urine WBC None Seen /HPF (<5)
[2024-05-15] MEDS ORDERED: HYDRALAZINE HCL 25 MG TABLET ONE (13:26)
--- NOTE | 2024-05-15 13:49 | RAD REPORT ---
EXAM: Chest Single View HISTORY: COUGH COMPARISON: 10/02/2020 FINDINGS: LUNGS/PLEURA: The lungs are clear. No pleural effusions or pneumothorax. No pulmonary edema. MEDIASTINUM: The mediastinal silhouette is within normal limits. CARDIAC: Cardiomegaly. Sternotomy. UPPER ABDOMEN: No significant abnormality. BONES: No acute fracture. LINES/TUBES/OTHER: N/A IMPRESSION: No evidence of acute cardiopulmonary disease.
[2024-05-15 14:19] LABS: Absolute Eosinophils 0.3 K/uL (0-0.5); Absolute Lymphocytes (CBC) 1.8 K/uL (0.7-4.9); Absolute Monocytes 0.6 K/uL (0.1-1.3); Absolute Neutrophil 3.1 K/uL (1.8-8.0); Basophils % 0.4 % (0-1.3); Eosinophils % 5.5 % (0-4.4); Hematocrit 39.7 % (39.6-49.0); Hemoglobin 12.4 g/dL (13.6-17.9); Lymphocytes % 30.5 % (15.3-44.8); MCH 27.3 pg (27.0-35.0); MCHC 31.3 g/dL (32.0-36.0); MCV 87.4 fL (80-100); MPV 11.7 fL (7.6-11.3); Monocytes % 10.4 % (3.3-12.3); Neutrophils % 53.2 % (41.7-73.7); Platelets 114 thou/uL (152-406); RBC Red Blood Cell Count 4.54 M/uL (4.33-5.43); Red Cell Distribution Width 16.4 % (12.1-15.2)
[2024-05-15 14:26] LABS: PT Prothrombin Time 12.6 SECONDS (9.4-12.5); Protime INR 1.13
[2024-05-15 14:42] LABS: ALT/SGPT 31 U/L (16-61); AST/SGOT 15 U/L (15-37); Albumin 3.9 g/dL (3.4-5.0); Alkaline Phosphatase 55 U/L (45-117); Anion Gap 9.6 mEq/L (5.0-15.0); BUN Blood Urea Nitrogen 29 mg/dL (7-18); Bicarbonate 24 mEq/L (21-32); Bilirubin Direct < 0.2 mg/dL (0-0.2); Bilirubin Indirect, Calculated 0.2 mg/dL (0.2-0.8); Bilirubin Total 0.4 mg/dL (0.2-1.0); Globulin 3.9 g/dL (2.3-3.5); Glomerular Filtration Rate 10 ml/min (=/>90); Glucose Level 66 mg/dL (74-106); Magnesium 2.1 mg/dL (1.6-2.4); NT PRO-BNP 8161 pg/mL (<125); Potassium 4.6 mEq/L (3.5-5.1); Protein, Total 7.8 g/dL (6.4-8.2); Sodium Level 132 mEq/L (136-145); Troponin High Sensitivity 41.5 pg/mL (<58.9)
--- NOTE | 2024-05-15 14:50 | EDPHYS ---
Physician Documentation [facility] Name: Russ Corona Age: 73 yrs Sex: Male : 1950 Arrival Date: 05/15/2024 Time: 11:33 Bed 6 Private MD: ED Physician Ubaldo Pisano HPI: 05/15 13:22 This 73 yrs old Black Male presents to ER via EMS with complaints of High Blood akhil Pressure. 13:22 The patient has elevated blood pressure and discovered this at home. Onset: The akhil symptoms/episode began/occurred today. Modifying factors: The symptoms are aggravated by activity, The symptoms are alleviated by remaining still. Associated signs and symptoms: The patient has no apparent associated signs or symptoms. Severity of symptoms: At its worst the blood pressure was mild, in the emergency department the blood pressure is unchanged. The patient has experienced similar episodes in the past, several times, multiple times. Historical: - Allergies: 11:48 No Known Allergies; jl7 - Home Meds: 11:48 lisinopril Oral [Active]; metoprolol tartrate 100 mg Oral tr24 1 tab once daily jl7 [Active]; rosuvastatin Oral [Active]; Glipizide Oral [Active]; isosorbide [Active]; - PMHx: 11:48 Anemia; angina pectoris; CAD; Cerebrovascular accident; Diabetes - NIDDM; Dialysis; jl7 M-W-F; Enlarged Heart; High Cholesterol; Hypertension; - PSHx: 11:48 CABG; right AKA; jl7 - Immunization history:: Adult Immunizations unknown. - Infectious Disease History:: Denies. - Social history:: Smoking status: Patient denies any tobacco usage or history of. - Family history:: not pertinent. ROS: 13:22 Constitutional: Negative for fever, chills, and weight loss, Eyes: Negative for injury, akhil pain, redness, and discharge, ENT: Negative for injury, pain, and discharge, Neck: Negative for injury, pain, and swelling, Cardiovascular: Negative for chest pain, palpitations, and edema, Respiratory: Negative for shortness of breath, cough, wheezing, and pleuritic chest pain, Abdomen/GI: Negative for abdominal pain, nausea, vomiting, diarrhea, and constipation, Back: Negative for injury and pain, : Negative for injury, bleeding, discharge, and swelling, MS/Extremity: Negative for injury and deformity, Skin: Negative for injury, rash, and discoloration, Neuro: Negative for headache, weakness, numbness, tingling, and seizure, Psych: Negative for depression, anxiety, suicide ideation, homicidal ideation, and hallucinations, Allergy/Immunology: Negative for hives, rash, and allergies, Endocrine: Negative for neck swelling, polydipsia, polyuria, polyphagia, and marked weight changes, Hematologic/Lymphatic: Negative for swollen nodes, abnormal bleeding, and unusual bruising, 14:49 Cardiovascular: Negative for chest pain, edema, orthopnea, palpitations, acute changes, akhil 14:49 MS/extremity: Positive for BILTERAL AKA, Exam: 13:22 Constitutional: This is a well developed, well nourished patient who is awake, alert, akhil and in no acute distress. Head/Face: Normocephalic, atraumatic. Eyes: Pupils equal round and reactive to light, extra-ocular motions intact. Lids and lashes normal. Conjunctiva and sclera are non-icteric and not injected. Cornea within normal limits. Periorbital areas with no swelling, redness, or edema. ENT: Nares patent. No nasal discharge, no septal abnormalities noted. Tympanic membranes are normal and external auditory canals are clear. Oropharynx with no redness, swelling, or masses, exudates, or evidence of obstruction, uvula midline. Mucous membranes moist. Neck: Trachea midline, no thyromegaly or masses palpated, and no cervical lymphadenopathy. Supple, full range of motion without nuchal rigidity, or vertebral point tenderness. No Meningismus. Chest/axilla: Normal chest wall appearance and motion. Nontender with no deformity. No lesions are appreciated. Cardiovascular: Regular rate and rhythm with a normal S1 and S2. No gallops, murmurs, or rubs. Normal PMI, no JVD. No pulse deficits. Respiratory: Lungs have equal breath sounds bilaterally, clear to auscultation and percussion. No rales, rhonchi or wheezes noted. No increased work of breathing, no retractions or nasal flaring. Abdomen/GI: Soft, non-tender, with normal bowel sounds. No distension or tympany. No guarding or rebound. No evidence of tenderness throughout. Back: No spinal tenderness. No costovertebral tenderness. Full range of motion. Male : Normal genitalia with no discharge or lesions. Skin: Warm, dry with normal turgor. Normal color with no rashes, no lesions, and no evidence of cellulitis. MS/ Extremity: Pulses equal, no cyanosis. Neurovascular intact. Full, normal range of motion., bilateral aka Neuro: Awake and alert, GCS 15, oriented to person, place, time, and situation. Cranial nerves II-XII grossly intact. Motor strength 5/5 in all extremities. Sensory grossly intact. Cerebellar exam normal. Normal gait. Psych: Awake, alert, with orientation to person, place and time. Behavior, mood, and affect are within normal limits. 13:31 ECG was reviewed by the Attending Physician. [facility] Vital Signs: 11:46 BP 179 / 76; Pulse 60; Resp 17; Temp 97.9; Pulse Ox 100% ; Weight 74 kg; Pain 0/10; jl7 12:56 BP 191 / 94; Pulse 54; Resp 15; Pulse Ox 100% ; jl7 13:31 BP 186 / 79; Pulse 55; Resp 17; Pulse Ox 100% ; jl7 15:00 BP 167 / 79; Pulse 54; Resp 15; Pulse Ox 100% ; jl7 11:46 Pain Scale: Adult jl7 Procedures: 13:27 Performed right sterile femoral stick. [facility] MDM: 11:47 Medical Screening Exam initiated [facility] 13:25 Differential diagnosis: hypertensive crisis, Malignant HTN. Data reviewed: vital signs, [facility] nurses notes, EMS record, lab test result(s), EKG, radiologic studies, plain films. Consideration of Admission/Observation Escalation of care including admission/observation considered. I considered the following discharge prescriptions or medication management in the emergency department Medications were administered in the Emergency Department. See MAR. Independent interpretation of the following test(s) in the Emergency Department EKG: See my EKG interpretation above. Test considered but Not performed: Ultrasound no 2 d echo. Historians other than the Patient: EMS: ems well informed. Care significantly affected by the following chronic conditions: Diabetes, Hypertension, Obesity, Chronic Kidney Disease, anemia , eliquis. Counseling: I had a detailed discussion with the patient and/or guardian regarding the historical points, exam findings, and any diagnostic results supporting the discharge/admit diagnosis, lab results, radiology results. 05/15 11:50 Order name: Basic Metabolic Panel; Complete Time: 14:49 akhil 05/15 11:50 Order name: CBC with Diff; Complete Time: 14:38 akhil 05/15 11:50 Order name: LFT's; Complete Time: 14:49 [facility] 05/15 11:50 Order name: Magnesium; Complete Time: 14:49 akhil 05/15 11:50 Order name: NT PRO-BNP; Complete Time: 14:49 [facility] 05/15 11:50 Order name: PT-INR; Complete Time: 14:38 [facility] 05/15 11:50 Order name: Troponin HS; Complete Time: 14:49 [facility] 05/15 11:50 Order name: Urinalysis w/ reflexes; Complete Time: 13:20 [facility] 05/15 11:50 Order name: XRAY Chest (1 view); Complete Time: 14:38 [facility] 05/15 11:50 Order name: EKG; Complete Time: 11:51 [facility] 05/15 11:50 Order name: Cardiac monitoring; Complete Time: 12:00 [facility] 05/15 11:50 Order name: EKG - Nurse/Tech; Complete Time: 12:11 [facility] 05/15 11:50 Order name: IV Saline Lock; Complete Time: 15:09 [facility] 05/15 11:50 Order name: Labs collected and sent; Complete Time: 13:36 [facility] 05/15 11:50 Order name: O2 Per Protocol; Complete Time: 12:01 [facility] 05/15 11:50 Order name: O2 Sat Monitoring; Complete Time: 12:01 [facility] 05/15 13:31 Order name: Misc. Order: recollect on labs; Complete Time: 14:12 sp EC:31 Rate is 56 beats/min. Rhythm is regular. QRS [place] is Normal. CO interval is normal. QRS akhil interval is normal. QT interval is normal. No Q waves. T waves are Normal. No ST changes noted. Clinical impression: Sinus bradycardia and No evidence of ischemia. Interpreted by me. Reviewed by me. Administered Medications: 13:31 Drug: HydrALAZINE PO 25 mg PO once Route: PO; jl7 15:00 Follow up: Response: No adverse reaction; Blood pressure is lowered jl7 13:33 Not Given (Duplicate Order): ns 0.9% 1000 ml IV at 125 ml/hr continuous akhil Disposition Summary: 05/15/24 14:50 Discharge Ordered Notes: Location: Home akhil Problem: new akhil Symptoms: have improved akhil Condition: Stable akhil Diagnosis - Essential (primary) hypertension akhil - Dependence on renal dialysis akhil - senior care (current) use of anticoagulants akhil Followup: akhil - With: Private Physician - When: 1 - 2 days - Reason: Recheck today's complaints, Continuance of care, Re-evaluation by your physician Followup: akhil - With: Marti Yanes MD - When: 48 Hours - Reason: Recheck today's complaints, Re-evaluation by your physician Discharge Instructions: - Discharge Summary Sheet akhil - Hypertension, Adult akhil - Dialysis akhil - Hypertension, Adult, [id number] akhil - Diabetes Mellitus and Nutrition, Adult akhil - How to Take Your Blood Pressure, [id number] akhil - Managing Your Hypertension akhil Forms: - Medication Reconciliation Form akhil - Antibiotic Education akhil - Prescription Opioid Use akhil - Patient Portal Instructions akhil - Leadership Thank You Letter akhil Prescriptions: - Hydralazine 10 mg Oral tablet - take 1 tablet ORAL route 3 times per day with food; 30 tablet; Refills: 0, akhil Product Selection Permitted Signatures: Dispatcher [employer] Ubaldo Su MD MD cha Pinkerton, Shawna sp Leal, Jahala, RN RN jl7
--- NOTE | 2024-05-15 14:50 | ER ---
Nurse's Notes [facility] Name: Russ Corona Age: 73 yrs Sex: Male : 1950 Arrival Date: 05/15/2024 Time: 11:33 Bed 6 Private MD: Diagnosis: Essential (primary) hypertension;Dependence on renal dialysis;intermission coordinator (current) use of anticoagulants Presentation: 05/15 11:46 Chief complaint: EMS states: Toned out for high blood pressure, took home medications jl7 at 0930, BP 200 systolic at 1000. Coronavirus screen: At this time, the client does not indicate any symptoms associated with coronavirus-19. Ebola Screen: No symptoms or risks identified at this time. Initial Sepsis Screen: Does the patient meet any 2 criteria? No. Patient's initial sepsis screen is negative. Does the patient have a suspected source of infection? No. Patient's initial sepsis screen is negative. Risk Assessment: Do you want to hurt yourself or someone else? Patient reports no desire to harm self or others. Onset of symptoms was May 15, 2024. Care prior to arrival: None. 11:46 Method Of Arrival: EMS: [facility] 7 11:46 Acuity: ELLI 3 jl7 Triage Assessment: 11:48 General: Appears in no apparent distress. uncomfortable, Behavior is calm, cooperative, jl7 appropriate for age. Pain: Denies pain. Neuro: Level of Consciousness is awake, alert, obeys commands, Oriented to person, place, time, situation. Cardiovascular: Patient's skin is warm and dry. Rhythm is regular. Respiratory: Airway is patent Respiratory effort is even, unlabored, Respiratory pattern is regular, symmetrical. Derm: Skin is pink, warm \T\ dry. Historical: - Allergies: 11:48 No Known Allergies; jl7 - Home Meds: 11:48 lisinopril Oral [Active]; metoprolol tartrate 100 mg Oral tr24 1 tab once daily jl7 [Active]; rosuvastatin Oral [Active]; Glipizide Oral [Active]; isosorbide [Active]; - PMHx: 11:48 Anemia; angina pectoris; CAD; Cerebrovascular accident; Diabetes - NIDDM; Dialysis; jl7 M-W-F; Enlarged Heart; High Cholesterol; Hypertension; - PSHx: 11:48 CABG; right AKA; jl7 - Immunization history:: Adult Immunizations unknown. - Infectious Disease History:: Denies. - Social history:: Smoking status: Patient denies any tobacco usage or history of. - Family history:: not pertinent. Screenin:00 [facility] ED Fall Risk Assessment (Adult) History of falling in the last 3 months, jl7 including since admission No falls in past 3 months (0 pts) Confusion or Disorientation No (0 pts) Intoxicated or Sedated No (0 pts) Impaired Gait Yes (1 pt) Mobility Assist Device Used Yes (1 pt) Altered Elimination No (0 pt) Score/Fall Risk Level 0 - 2 = Low Risk Oriented to surroundings, Maintained a safe environment. Abuse screen: Denies threats or abuse. Denies injuries from another. Nutritional screening: No deficits noted. Tuberculosis screening: No symptoms or risk factors identified. Assessment: 11:30 General: See triage. jl7 12:00 Reassessment: Unable to obtain IV and labs at this time. ERD notified. [facility] 13:32 Reassessment: Patient appears in no apparent distress at this time. No changes from 7 previously documented assessment. Patient and/or family updated on plan of care and expected duration. Pain level reassessed. Patient is alert, oriented x 3, equal unlabored respirations, skin warm/dry/pink. 14:30 Reassessment: Patient appears in no apparent distress at this time. No changes from jl7 previously documented assessment. Patient and/or family updated on plan of care and expected duration. Pain level reassessed. Patient is alert, oriented x 3, equal unlabored respirations, skin warm/dry/pink. 15:30 Reassessment: Patient appears in no apparent distress at this time. No changes from jl7 previously documented assessment. Patient and/or family updated on plan of care and expected duration. Pain level reassessed. Patient is alert, oriented x 3, equal unlabored respirations, skin warm/dry/pink. 16:00 Reassessment: Pt is discharged awaiting transportation at this time. jl7 Vital Signs: 11:46 BP 179 / 76; Pulse 60; Resp 17; Temp 97.9; Pulse Ox 100% ; Weight 74 kg; Pain 0/10; jl7 12:56 BP 191 / 94; Pulse 54; Resp 15; Pulse Ox 100% ; jl7 13:31 BP 186 / 79; Pulse 55; Resp 17; Pulse Ox 100% ; jl7 15:00 BP 167 / 79; Pulse 54; Resp 15; Pulse Ox 100% ; jl7 11:46 Pain Scale: Adult jl7 ED Course: 11:46 Patient arrived in ED. jl7 11:47 Ubaldo Pisano MD is Attending Physician. akhil 11:48 Triage completed. jl7 11:48 Arm band placed on right wrist. jl7 11:51 Dante Ford RN is Primary Nurse. jl7 12:00 Patient has correct armband on for positive identification. Placed in gown. Bed in low jl7 position. Call light in reach. Side rails up X2. Provided Education on: use off call pryor. Client placed on continuous cardiac and pulse oximetry monitoring. NIBP monitoring applied. Warm blanket given. 12:11 EKG done, by ED staff, reviewed by Ubaldo Pisano MD. em1 12:30 Missed attempt(s): 22 gauge in right forearm. Bleeding controlled, band aid applied, jl7 catheter tip intact. 12:40 Missed attempt(s): 24 gauge in right hand. Bleeding controlled, band aid applied, jl7 catheter tip intact. 12:50 Missed attempt(s): 24 gauge in right wrist. Bleeding controlled, band aid applied, jl7 catheter tip intact. 13:10 Initial lab(s) drawn, by ED staff, sent to lab. Urine collected: clean catch specimen, jl7 clear. 13:44 XRAY Chest (1 view) In Process Unspecified. EDMS 14:11 Accessed peripheral vein via ultrasound, utilizing dynamic ultrasound technique using ss 20G Nexia IV catheter ,sterile technique, per hospital protocol. Clean \T\ dry. Dressing intact. Good blood return. Flushes easily. 14:50 Marti Yanes MD is Referral Physician. akhil 16:01 No provider procedures requiring assistance completed. IV discontinued, intact, jl7 bleeding controlled, No redness/swelling at site. Pressure dressing applied. Administered Medications: 13:31 Drug: HydrALAZINE PO 25 mg PO once Route: PO; jl7 15:00 Follow up: Response: No adverse reaction; Blood pressure is lowered jl7 13:33 Not Given (Duplicate Order): ns 0.9% 1000 ml IV at 125 ml/hr continuous akhil Medication: 12:00 VIS not applicable for this client. jl7 Outcome: 14:50 Discharge ordered by . akhil 16:01 Discharged to home via wheelchair, with friend, petra 16:01 Condition: stable 16:01 Discharge instructions given to patient, Instructed on discharge instructions, follow up and referral plans. medication usage, Demonstrated understanding of instructions, follow-up care, medications, Prescriptions given X 1, 16:42 Patient left the ED. jl7 Signatures: Dispatcher [employer] EDMT Ubaldo Pisano MD MD cha Martinez, Eric em1 Tracy Adame, RN RN Dante Ford RN RN [email or web address] Corrections: (The following items were deleted from the chart) 16:01 15:00 BP 167 / 79; petra lambert
[2024-05-15 17:21] VITALS: TEMP 97.9; O2SAT 100
[2024-05-15 17:24] VITALS: BP 167/79
--- NOTE | 2024-05-16 14:13 | EKG ---
Test Date: 2024-05-15 Test Time: 12:09:06 Operations Clerk: ANICETO MEASUREMENT RESULTS: Intervals: Rate: 56 WV: 160 QRSD: 138 QT: 474 QTc: 457 [place]: P: 69 WV: 160 QRS: 127 T: 107 INTERPRETIVE STATEMENTS: Sinus bradycardia Possible Left atrial enlargement Right bundle branch block Left posterior fascicular block Bifascicular block Abnormal ECG Compared to ECG 06/09/2022 16:56:34 Left posterior fascicular block now present Bifascicular block now present Sinus rhythm no longer present Electronically Signed On 05-16-24 14:11:20 GUM MACHINE FILLER by Denzel Delong
== END 2024-05-15 16:42 | disposition home or self-care (01) ==
LOC: ER 11:33
DX: I10 Essential (primary) hypertension (principal); Z99.2 Dependence on renal dialysis; Z79.01 Long term (current) use of anticoagulants; E11.9 Type 2 diabetes mellitus without complications; E78.00 Pure hypercholesterolemia, unspecified; Z95.1 Presence of aortocoronary bypass graft; Z89.511 Acquired absence of right leg below knee
CPT/HCPCS: 36415; 71045; 80048; 80076; 81001; 83735; 83880; 84484; 85025; 85610; 93005; 99285

== ENCOUNTER 2024-10-25 08:39 | Emergency (ER) | payer OTHER ==
--- NOTE | 2024-10-25 10:33 | RAD REPORT ---
EXAMINATION: XR LEFT SHOULDER CLINICAL INDICATION: Male, 74 years old. PAIN TECHNIQUE: Internal and external AP view radiograph of the left shoulder were obtained. COMPARISON: No prior exam. FINDINGS: No evidence of fracture or dislocation. Normal alignment. Moderate AC joint and glenohumera l joint degenerative changes. Soft tissues are unremarkable. IMPRESSION: No acute osseous abnormalities. Degenerative changes as above.
--- NOTE | 2024-10-25 10:54 | ER ---
Nurse's Notes [facility] Name: Russ Corona Age: 74 yrs Sex: Male : 1950 Arrival Date: 10/25/2024 Time: 08:39 Bed 17 Private MD: Diagnosis: Pain in left shoulder;Fall from bed, initial encounter Presentation: 10/25 08:40 Chief complaint: EMS states: toned out to patient home for fall - pt reached out of ld1 chair and fell onto left shoulder. C/O pain to left shoulder. Did not hit head, pt takes plavix. Coronavirus screen: At this time, the client does not indicate any symptoms associated with coronavirus-19. Ebola Screen: No symptoms or risks identified at this time. Initial Sepsis Screen: Does the patient meet any 2 criteria? No. Patient's initial sepsis screen is negative. Does the patient have a suspected source of infection? No. Patient's initial sepsis screen is negative. Risk Assessment: Do you want to hurt yourself or someone else? Patient reports no desire to harm self or others. Onset of symptoms was October 25, 2024. 08:40 Method Of Arrival: EMS: [facility] ld1 08:40 Acuity: ELLI 3 ld1 Triage Assessment: 08:43 General: Appears in no apparent distress. comfortable, Behavior is calm, cooperative, ld1 appropriate for age. Pain: Complains of pain in anterior aspect of left shoulder Pain does not radiate. Pain currently is 6 out of 10 on a pain scale. Quality of pain is described as throbbing, Pain began suddenly, Is continuous. EENT: No signs and/or symptoms were reported regarding the EENT system. Neuro: Level of Consciousness is awake, alert, obeys commands, Oriented to person, place, time, situation. Cardiovascular: Capillary refill < 3 seconds Patient's skin is warm and dry. Respiratory: Airway is patent Respiratory effort is even, unlabored. GI: Abdomen is flat, non-distended. : No signs and/or symptoms were reported regarding the genitourinary system. Derm: No deficits noted. No signs and/or symptoms reported regarding the dermatologic system. Musculoskeletal: Range of motion: intact in all extremities, Reports pain in anterior aspect of left shoulder. Historical: - Allergies: 08:42 No Known Allergies; ld1 - Home Meds: 08:43 Plavix 75 mg Oral tablet 1 tab daily [Active]; ld1 - PMHx: 08:42 Anemia; CAD; Cerebrovascular accident; Diabetes - NIDDM; Dialysis; M-W-F; Enlarged ld1 Heart; High Cholesterol; Hypertension; angina pectoris; - PSHx: 08:42 LENKA AKA; CABG; ld1 - Immunization history:: Adult Immunizations up to date. - Infectious Disease History:: Denies. - Social history:: Smoking status: Patient denies any tobacco usage or history of. Screenin:53 [facility] ED Fall Risk Assessment (Adult) History of falling in the last 3 months, ld1 including since admission Yes- single mechanical fall (1 pt) Confusion or Disorientation No (0 pts) Intoxicated or Sedated No (0 pts) Impaired Gait Yes (1 pt) Mobility Assist Device Used Yes (1 pt) Altered Elimination No (0 pt) Score/Fall Risk Level 3 or more points = High Risk Oriented to surroundings, Hourly rounding (assess needs \T\ fall precautionary measures) done. Abuse screen: Denies threats or abuse. Denies injuries from another. Nutritional screening: No deficits noted. Tuberculosis screening: No symptoms or risk factors identified. Assessment: 08:53 Reassessment: See triage assessment. ld1 Vital Signs: 08:40 BP 123 / 54; Pulse 90; Resp 18; Pulse Ox 100% on R/A; ld1 08:50 Temp 97.3; Weight 67.13 kg; Pain 7/10; ld1 08:50 Pain Scale: Adult ld1 ED Course: 08:40 Patient arrived in ED. ld1 08:40 Isaiah Harper DO is Attending Physician. ms3 08:41 Triage completed. ld1 08:50 Arm band placed on right wrist. ld1 08:53 Patient has correct armband on for positive identification. Bed in low position. Call ld1 light in reach. Side rails up X2. Pulse ox on. NIBP on. Door closed. Noise minimized. 08:53 No provider procedures requiring assistance completed. ld1 09:08 Shoulder Left (2 View) XRAY In Process Unspecified. EDMS 10:53 Hardeep Smith MD is Referral Physician. ms3 11:03 Patient did not have IV access during this emergency room visit. ld1 Administered Medications: No medications were administered Medication: 11:03 VIS not applicable for this client. ld1 Outcome: 10:53 Discharge ordered by . ms3 11:03 Discharged to home via wheelchair, ld1 11:03 Condition: stable 11:03 Discharge instructions given to patient, Instructed on discharge instructions, follow up and referral plans. Demonstrated understanding of instructions, follow-up care, 11:04 Patient left the ED. ld1 Signatures: Dispatcher [employer] EDMS Isaiah Harper DO DO ms3 Ramona Harper RN RN ld1 Corrections: (The following items were deleted from the chart) 08:43 08:42 PSHx: CABG; ld1 ld1 08:43 08:42 PSHx: right AKA; ld1 ld1
--- NOTE | 2024-10-25 10:54 | EDPHYS ---
Physician Documentation [facility] Name: Russ Corona Age: 74 yrs Sex: Male : 1950 Arrival Date: 10/25/2024 Time: 08:39 Bed 17 Private MD: ED Physician Isaiah Harper HPI: 10/25 10:23 This 74 yrs old Black Male presents to ER via EMS with complaints of Fall Injury, ms3 Shoulder Pain - Left shoulder pain. 10:23 74-year-old male with past medical history of anemia, coronary artery disease, CVA, ms3 diabetes, hypertension presents to the emergency department via [place] [employer] after falling out of bed and landing on his left shoulder. Patient states he is having mild shoulder discomfort that he rates 3/10.. Historical: - Allergies: 08:42 No Known Allergies; ld1 - Home Meds: 08:43 Plavix 75 mg Oral tablet 1 tab daily [Active]; ld1 - PMHx: 08:42 Anemia; CAD; Cerebrovascular accident; Diabetes - NIDDM; Dialysis; M-W-F; Enlarged ld1 Heart; High Cholesterol; Hypertension; angina pectoris; - PSHx: 08:42 LENKA AKA; CABG; ld1 - Immunization history:: Adult Immunizations up to date. - Infectious Disease History:: Denies. - Social history:: Smoking status: Patient denies any tobacco usage or history of. ROS: 10:23 Constitutional: Negative for fever, and chills. Cardiovascular: Negative for chest ms3 pain, and palpitations. Respiratory: Negative for shortness of breath, cough, wheezing, and pleuritic chest pain, Abdomen/GI: Negative for abdominal pain, nausea, vomiting, diarrhea, and constipation, Skin: Negative for injury, rash, and discoloration, 10:23 MS/extremity: Positive for Left shoulder pain, Exam: 10:23 Constitutional: This is a well developed, well nourished patient who is awake, alert, ms3 and in no acute distress. Cardiovascular: Regular rate and rhythm with a normal S1 and S2. No gallops, murmurs, or rubs. Normal PMI, no JVD. No pulse deficits. Respiratory: Lungs have equal breath sounds bilaterally, clear to auscultation and percussion. No rales, rhonchi or wheezes noted. No increased work of breathing, no retractions or nasal flaring. Abdomen/GI: Soft, non-tender, with normal bowel sounds. No distension or tympany. No guarding or rebound. No evidence of tenderness throughout. Skin: Warm, dry with normal turgor. Normal color with no rashes, no lesions, and no evidence of cellulitis. 10:23 Musculoskeletal/extremity: Extremities: noted in the Left shoulder: pain, There is no evidence of contusion, decreased ROM, deformity, Vital Signs: 08:40 BP 123 / 54; Pulse 90; Resp 18; Pulse Ox 100% on R/A; ld1 08:50 Temp 97.3; Weight 67.13 kg; Pain 7/10; ld1 08:50 Pain Scale: Adult ld1 MDM: 08:40 Medical Screening Exam initiated ms3 10:23 Differential diagnosis: abrasion, contusion, fracture, sprain, strain. ms3 10/25 08:40 Order name: Shoulder Left (2 View) XRAY; Complete Time: 10:48 ms3 Administered Medications: No medications were administered Disposition Summary: 10/25/24 10:53 Discharge Ordered Notes: Location: Home ms3 Condition: Stable ms3 Diagnosis - Pain in left shoulder ms3 - Fall from bed, initial encounter ms3 Followup: ms3 - With: Hardeep Smith MD - When: 2 - 3 days - Reason: Recheck today's complaints Discharge Instructions: - Discharge Summary Sheet ms3 - Shoulder Pain, [id number] ms3 Forms: - Medication Reconciliation Form ms3 - Antibiotic Education ms3 - Prescription Opioid Use ms3 - Patient Portal Instructions ms3 - Leadership Thank You Letter ms3 Signatures: Dispatcher [employer] EDIsaiah Head DO DO ms3 Ramona Harper RN RN ld1 Corrections: (The following items were deleted from the chart) 08:43 08:42 PSHx: CABG; ld1 ld1 08:43 08:42 PSHx: right AKA; ld1 ld1 10:54 10:54 Data reviewed: vital signs, nurses notes, lab test result(s), radiologic studies, ms3 and as a result, I will ms3
[2024-10-25 11:08] VITALS: BP 123/54; O2SAT 100
[2024-10-25 11:09] VITALS: TEMP 97.3
== END 2024-10-25 11:04 | disposition home or self-care (01) ==
LOC: ER 08:39
DX: M25.512 Pain in left shoulder (principal); W06.XXXA Fall from bed, initial encounter; E11.9 Type 2 diabetes mellitus without complications; I10 Essential (primary) hypertension; Z99.2 Dependence on renal dialysis; Z89.612 Acquired absence of left leg above knee; Z89.611 Acquired absence of right leg above knee; Z95.1 Presence of aortocoronary bypass graft; Z86.73 Personal history of transient ischemic attack (TIA), and cerebral infarction without residual deficits; Z79.01 Long term (current) use of anticoagulants
CPT/HCPCS: 99283